=== PATIENT | female | born 1960 | race Caucasian/White ===

== ENCOUNTER → 2016-11-30 | Outpatient (CLI) | payer BC, MEDICARE, OTHER ==
--- NOTE | 2016-11-30 15:13 | CT ---
EXAMINATION TYPE: CT chest wo con DATE OF EXAM: 11/30/2016 COMPARISON: Prior CT chest 01/26/2016 HISTORY: Solitary pulmonary nodule CT DLP: 700 mGycm. Automated Exposure Control for Dose Reduction was Utilized. TECHNIQUE: CT scan of the thorax is performed without IV contrast. FINDINGS: LUNGS: Nodularity subcentimeter in size present in the right upper lobe is stable. There are extensiv e emphysematous changes within the lungs. Area of scarring present in the right upper lobe anteriorly shows a similar appearance. MEDIASTINUM: Lack of IV contrast is noted to limit evaluation for mediastinal and especially hilar ad enopathy. There are no definitive greater than 1 cm hilar or mediastinal lymph nodes. No cardiomega ly or pericardial effusion is seen. OTHER: Ascending aorta measures approximately 4.8 cm on this noncontrast exam, there may be slight in terval growth compared to prior exam. Pleural-based lipoma the right upper lobe is stable. IMPRESSION: Ascending aortic aneurysm. Stable pulmonary nodules. Emphysema.
--- NOTE | 2016-12-01 10:15 | MM ---
Reason for exam: screening (asymptomatic). Last mammogram was performed 1 year and 3 months ago. History: Patient is postmenopausal. Reductions of both breasts, 1976. Physical Findings: A clinical breast exam by your physician is recommended on an annual basis and results should be correlated with mammographic findings. MG 3D Screening Mammo W/Cad Bilateral CC and MLO view(s) were taken. Prior study comparison: September 10, 2015, bilateral MG screening mammo w CAD. August 07, 2012, [facility] DIGITAL BILATERAL MAMMOGRAM w/CAD. The breast tissue is almost entirely fat. No significant changes when compared with prior studies. ASSESSMENT: Negative, BI-RAD 1 RECOMMENDATION: Routine screening mammogram of both breasts in 1 year.
== END | disposition home or self-care (01) ==
LOC: RADMAMWWP 13:52
PROVIDERS: ATTEND Family Medicine
DX: Z12.31 Encounter for screening mammogram for malignant neoplasm of breast (principal); I71.2 Thoracic aortic aneurysm, without rupture; J43.9 Emphysema, unspecified; R91.8 Other nonspecific abnormal finding of lung field
CPT/HCPCS: 77063; 71250; G0202

== ENCOUNTER → 2018-02-07 | Outpatient (CLI) | payer BC, MEDICARE, OTHER ==
--- NOTE | 2018-02-07 13:56 | CT ---
EXAMINATION TYPE: CT chest wo con DATE OF EXAM: 02/07/2018 COMPARISON: 11/30/2016 HISTORY: 57-year-old female Thoracic Aortic Aneurysm without rupture TECHNIQUE: Contiguous axial scanning of the chest without IV contrast. Coronal and sagittal reconstru ctions performed. CT DLP: 542 mGycm Automated exposure control for dose reduction was used. FINDINGS: Heart normal size without pericardial effusion. Mild aortic valvular calcifications are present. Redemonstrated aneurysm of the ascending aorta measuring up to 4.6 cm as measured on both axial and s agittal series. This is unchanged from 11/30/2016. Bovine configuration to the aortic arch. Allowing for noncontrast technique, no thoracic lymphadenopathy is seen. Prominent but nonenlarged 8 mm precarinal lymph node is present. Mild diffuse bronchial wall thickening with some strandy areas of atelectasis and scarring particular ly in the anterior right midlung. Scattered pulmonary nodules measuring up to 6 mm on the right and o ne measuring 4 mm on the left are unchanged. There is moderate centrilobular emphysema and a 3.5 x 1. 1 cm subpleural lipoma along the anterolateral right upper hemithorax, unchanged. No consolidation or pleural effusion. Visualized upper abdomen shows no gross abnormality allowing for noncontrast technique. Mild endplate spondylosis midthoracic spine. No osseous destructive process. IMPRESSION: STABLE 4.6 CM ASCENDING AORTIC ANEURYSM. THERE IS COPD WITH MODERATE EMPHYSEMA AND STABLE PULMONARY N ODULES.
== END | disposition home or self-care (01) ==
LOC: RADCTMAIN 08:20
PROVIDERS: ATTEND Family Medicine
DX: I71.2 Thoracic aortic aneurysm, without rupture (principal); J43.9 Emphysema, unspecified; R91.8 Other nonspecific abnormal finding of lung field
CPT/HCPCS: 71250

== ENCOUNTER → 2019-01-24 | Outpatient (CLI) | payer BC, MEDICARE, OTHER ==
--- NOTE | 2019-01-24 09:06 | CT ---
EXAMINATION TYPE: CT chest wo con DATE OF EXAM: 01/24/2019 COMPARISON: 02/07/2018 HISTORY: 57-year-old female follow-up Pulmonary nodule TECHNIQUE: Contiguous axial scanning of the chest without IV contrast. Coronal and sagittal reconstru ctions performed. CT DLP: 589 mGycm Automated exposure control for dose reduction was used. FINDINGS: Heart normal size without pericardial effusion. Aortic valvular calcifications. Mild aneurysm ascending aorta at 4.2 cm. This was previously measured up to 4.5 cm on 11/30/2016. Bovine configuration to the aortic arch. 7 mm precarinal lymph node is unchanged. No thoracic lymphadenopathy by CT size criteria. Moderate centrilobular emphysema. Suspected subpleural lipoma along the anterolateral right upper chest measuring 3.5 x 1.2 cm, unchang ed from 11/30/2016. 5 mm peripheral right basilar pulmonary nodule, stable. 4 mm right middle lobe pulmonary nodule, axial image 35, stable. Some additional 4 mm and smaller nodularity along the minor fissure on axial image 28, unchanged. There is additional scattered 4 mm and smaller pulmonary nodules bilaterally are unchanged. Tiny calcified granuloma in the right. Trace left apical pleural parenchymal scarring and some of the additional stable or perhaps scarring along the superior aspect of the left major fissure. No consolidation or pleural effusion. Visualized upper abdomen shows no gross abnormality. Bones: No osseous destructive process. IMPRESSION: 1. SCATTERED BILATERAL PULMONARY NODULES MEASURING UP TO 5 MM ARE STABLE BACK TO AT LEAST 11/30/2016. G REATER THAN 2 YEARS OF STABILITY SUGGESTS A BENIGN ETIOLOGY. 2. COPD WITH MODERATE EMPHYSEMA. 3. MILD ANEURYSM ASCENDING AORTA CURRENTLY MEASURED AT 4.2 CM.
== END | disposition home or self-care (01) ==
LOC: RADCTMAIN 07:45
PROVIDERS: ATTEND Family Medicine
DX: J43.9 Emphysema, unspecified (principal); I71.2 Thoracic aortic aneurysm, without rupture; R91.8 Other nonspecific abnormal finding of lung field
CPT/HCPCS: 71250

== ENCOUNTER 2021-08-03 17:37 | Emergency (ER) | payer MEDICARE, OTHER ==
[2021-08-03 17:57] VITALS: BP 186/104; PULSE 84; RESP 18; TEMP 97.4
--- NOTE | 2021-08-03 18:58 | ED ---
Back Pain HPI - General Chief Complaint: Back Pain/Injury Stated Complaint: Back pain Time Seen by Provider: 08/03/21 18:18 Source: patient - History of Present Illness Initial Comments: Patient is a 61-year-old female who presents to the emergency department with a chief complaint of lower back pain. Patient states the pain started 2 days ago on the right side. She denies recent injury or trauma. The pain is constant over the right lower back with intermittent shooting down the right thigh. Patient states twisting her back worsens the pain. She states she has taken Tylenol and Motrin with no relief. Patient does have a history of back issues however she states it was always left sided. Patient denies history of cancer, recent weight loss, numbness/tingling in the groin, and loss of bladder/bowel function. Patient has no other concerns at this time including fever, chills, headache, worsening shortness of breath, cough, chest pain, abdominal pain, nausea, vomiting, diarrhea, and burning with urination. - Related Data Previous Rx's Medication Instructions Recorded Cyclobenzaprine [Flexeril] 5 mg PO TID PRN #21 tablet 08/03/21 Allergies Allergy/AdvReac Type Severity Reaction Status Date / Time No Known Allergies Allergy Verified 08/03/21 17:57 Review of Systems ROS Statement: Those systems with pertinent positive or pertinent negative responses have been documented in the HPI. ROS Other: All systems not noted in ROS Statement are negative. Past Medical History Past Medical History: Coronary Artery Disease (CAD), Chest Pain / Angina, COPD Additional Past Medical History / Comment(s): O2 3l nc all the time. aortic valve stenosis? History of Any Multi-Drug Resistant Organisms: None Reported Past Surgical History: Breast Surgery, Tubal Ligation Past Psychological History: No Psychological Hx Reported Smoking Status: Former smoker Past Alcohol Use History: None Reported Past Drug Use History: None Reported General Exam General appearance: alert, in no apparent distress Head exam: Present: atraumatic, normocephalic, normal inspection Eye exam: Present: normal appearance, PERRL, EOMI. Absent: scleral icterus, conjunctival injection, periorbital swelling Respiratory exam: Present: wheezes (Patient has known COPD and wears 3 L of oxygen nasal cannula at home) Cardiovascular Exam: Present: regular rate, normal rhythm, normal heart sounds. Absent: systolic murmur, diastolic murmur, rubs, gallop, clicks GI/Abdominal exam: Present: soft, normal bowel sounds. Absent: distended, tenderness, guarding, rebound, rigid Extremities exam: Present: normal inspection, full ROM, normal capillary refill. Absent: tenderness, pedal edema Back exam: Present: normal inspection, full ROM, tenderness (Right lumbar and sacral region), paraspinal tenderness. Absent: CVA tenderness (R), CVA tenderness (L), muscle spasm, vertebral tenderness Neurological exam: Present: alert, oriented X3, CN II-XII intact Psychiatric exam: Present: normal affect, normal mood Skin exam: Present: warm, dry, intact, normal color. Absent: rash Course Vital Signs 08/03/21 17:51 Temperature 97.4 F L Pulse Rate 84 Respiratory 18 Rate Blood Pressure 186/104 O2 Sat by Pulse 97 Oximetry Medical Decision Making - Medical Decision Making This is a 61 year-old female who presents with right-sided lower back pain 2 days. Thorough history and examination were performed. Patient denies recent injury or trauma. No saddle anesthesia or loss of bladder/bowel control. Patient has sciatica symptoms. The paravertebral muscles of the lumbar and sacral spine are tender to palpation. CT of the lumbar and sacral spine was obtained which showed L5 spondylolysis with first-degree L5-S1 spondylolisthesis, which was no significant change compared to previous CT. Patient given Toradol and Norflex. She will be discharged with Flexeril prescription and referral to diabetes solutions specialist. Return parameters discussed. Patient verbalized understanding and is agreeable to plan. Dr. Gore is my attending. Disposition Clinical Impression: Back pain Disposition: HOME SELF-CARE Condition: Good Instructions (If sedation given, give patient instructions): Acute Low Back Pain (ED) Additional Instructions: Please take medication as directed. Do not drive or operate machinery while taking Flexeril. You may take an anti-inflammatory such as Motrin for pain. Follow-up with diabetes solutions specialist for further evaluation and management of symptoms. Return to the emergency department if you experience new, concerning, or worsening symptoms. Prescriptions: Cyclobenzaprine [Flexeril] 5 mg PO TID PRN #21 tablet PRN Reason: Pain Is patient prescribed a controlled substance at d/c from ED?: No Referrals: Jeremy Ennis DO [Primary Care Provider] - 1-2 days Mateo Altamirano MD [STAFF PHYSICIAN] - 1-2 days Time of Disposition: 19:55
[2021-08-03] MEDS ORDERED: ORPHENADRINE 30 MG/ML 2 ML VIAL IM STA (19:03)
[2021-08-03] MEDS ORDERED: KETOROLAC 15 MG/ML 1 ML VIAL IM STA (19:04)
--- NOTE | 2021-08-03 19:42 | CT ---
EXAMINATION TYPE: CT lumbar spine wo con DATE OF EXAM: 08/03/2021 COMPARISON: 06/05/2014 HISTORY: Low back pain. CT DLP: 1291.8 mGycm Automated exposure control for dose reduction was used. Images obtained from the level of T12-S1 vertebra without contrast. There is L5 spondylolysis. There is a 1 cm anterior subluxation of L5 in relation S1. There is no com pression fracture. There is moderate narrowing of disc spaces at L5-S1 and to lesser extent L4-5. The re is very slight levoscoliosis. There is no lumbar paraspinal mass. There is developmentally large s elsy canal. No spinal stenosis. Sacroiliac joints appear intact. IMPRESSION: L5 spondylolysis with first-degree L5-S1 spondylolisthesis. No significant change compared to the old exam. No acute bony abnormality.
--- NOTE | 2021-08-03 19:46 | CT ---
EXAMINATION TYPE: CT sacrum wo con DATE OF EXAM: 08/03/2021 COMPARISON: None HISTORY: Low back pain. CT DLP: 1291.8 mGycm Automated exposure control for dose reduction was used. Images obtained from the level of lumbosacral junction to the tip of the coccyx with no contrast. There is L5 spondylolysis with first-degree L5-S1 spondylolisthesis. There is severe narrowing of L5- S1 disc space. The sacral segments have normal alignment. No fracture seen. No displacement. Presacra l soft tissues appear normal. No fluid. There are multiple sigmoid diverticula. IMPRESSION: No acute bony abnormality. L5-S1 spondylolisthesis with L5 spondylolysis that is stable compared to . No fracture.
== END 2021-08-03 20:18 | disposition home or self-care (01) ==
LOC: EC 17:37
DX: M54.50 Low back pain, unspecified (principal); J44.9 Chronic obstructive pulmonary disease, unspecified; I25.10 Atherosclerotic heart disease of native coronary artery without angina pectoris; Z87.891 Personal history of nicotine dependence
CPT/HCPCS: 72131; 72192; 99283; 96372 ×2; J2360; J1885

== ENCOUNTER → 2022-02-14 | Outpatient (CLI) | payer MEDICARE, OTHER ==
--- NOTE | 2022-02-14 12:23 | XR ---
EXAMINATION TYPE: XR chest 2V DATE OF EXAM: 02/14/2022 11:08 AM COMPARISON: Chest radiographs from 05/11/2012 TECHNIQUE: XR chest 2V Frontal and lateral views of the chest. CLINICAL INDICATION:Female, 61 years old with history of J441; FINDINGS: Lungs/Pleura: There is poor penetration with increased haziness to the lung bases. There is no eviden ce of pleural effusion, focal consolidation, or pneumothorax. Pulmonary vascularity: Unremarkable. Heart/mediastinum: Cardiomediastinal silhouette is unremarkable. Musculoskeletal: No acute osseous pathology. IMPRESSION: No acute cardiopulmonary disease/process.
== END | disposition home or self-care (01) ==
LOC: RADXRMAIN 10:53
PROVIDERS: ATTEND Family Medicine
DX: J44.1 Chronic obstructive pulmonary disease with (acute) exacerbation (principal)
CPT/HCPCS: 71046

== ENCOUNTER 2022-04-09 09:05 | Inpatient (IN) | payer MEDICARE, OTHER ==
[2022-04-09] MEDS ORDERED: IPRATROPIUM 0.5 MG/2.5 ML NEBU INHALATION STA (09:11)
[2022-04-09] MEDS ORDERED: methylPREDNISolone SOD SUCCI 125 MG/2 ML VIAL IV STA (09:11)
[2022-04-09] MEDS ORDERED: ALBUTEROL NEBULIZED 2.5 MG/3 ML INHALATION STA (09:11)
[2022-04-09 09:20] LABS: Basophils # (A) 0.1 k/uL (0-0.2); Basophils % (A) 1 %; Eosinophils # (A) 0.1 k/uL (0-0.7); Eosinophils % (A) 1 %; HCT 42.1 % (34.0-46.0); HGB 14.3 gm/dL (11.4-16.0); Lymphocytes # (A) 0.6 k/uL (1.0-4.8); Lymphocytes % (A) 4 %; MCH 30.7 pg (25.0-35.0); MCHC 34.1 g/dL (31.0-37.0); Mean Platelet Volume 8.5; Monocytes # (A) 0.7 k/uL (0-1.0); Monocytes % (A) 5 %; Neutrophils # (A) 11.3 k/uL (1.3-7.7); Neutrophils % (A) 87 %; Platelet Count 155 k/uL (150-450); RBC 4.68 m/uL (3.80-5.40); RDW 13.6 % (11.5-15.5); WBC 13.1 k/uL (3.8-10.6)
--- NOTE | 2022-04-09 09:25 | ED ---
General Adult HPI - General Chief complaint: Shortness of Breath Stated complaint: GRAYSON Time Seen by Provider: 04/09/22 09:05 Source: patient, EMS, RN notes reviewed, old records reviewed Mode of arrival: EMS Limitations: no limitations - History of Present Illness Initial comments: This is a 61-year-old female presents emergency Department with a past medical history significant for COPD. According to the patient her difficulty breathing is been ongoing all week and getting progressively worse. Patient states she has been coughing but unable to cough up sputum. Patient denies any chest pain or palpitations. Patient denies any back pain. Patient denies any recent fever. Patient denies any abdominal pain patient denies any nausea or vomiting. Patient states she just got so short of breath this morning she had called EMS. According to EMS when they arrived she was barely moving any air to give her breathing treatment put her on oxygen by the time they arrived she was doing considerably better. In route they did an EKG that was somewhat suspicious for ST segment elevation in the inferior leads so they called her democrat one on the way in. Patient had a repeat EKG by EMS and they stated that the second EKG did not look anywhere near suspicious is the first. - Related Data Previous Rx's Medication Instructions Recorded Cyclobenzaprine [Flexeril] 5 mg PO TID PRN #21 tablet 08/03/21 Allergies Allergy/AdvReac Type Severity Reaction Status Date / Time No Known Allergies Allergy Verified 04/09/22 09:12 Review of Systems ROS Statement: Those systems with pertinent positive or pertinent negative responses have been documented in the HPI. ROS Other: All systems not noted in ROS Statement are negative. Past Medical History Past Medical History: Coronary Artery Disease (CAD), Chest Pain / Angina, COPD Additional Past Medical History / Comment(s): O2 3l nc all the time. aortic valve stenosis? History of Any Multi-Drug Resistant Organisms: None Reported Past Surgical History: Breast Surgery, Tubal Ligation Past Psychological History: No Psychological Hx Reported Smoking Status: Former smoker Past Alcohol Use History: None Reported Past Drug Use History: None Reported General Exam - General Exam Comments Initial Comments: GENERAL: Patient is well-developed and well-nourished. Patient is nontoxic and well- hydrated and is in moderate distress. ENT: Neck is soft and supple. No significant lymphadenopathy is noted. Oropharynx is clear. Moist mucous membranes. Neck has full range of motion without eliciting any pain. EYES: The sclera were anicteric and conjunctiva were pink and moist. Extraocular movements were intact and pupils were equal round and reactive to light. Eyelid s were unremarkable. PULMONARY: Patient is not moving much air and has diffuse expiratory wheezing CARDIOVASCULAR: There is a regular rate and rhythm without any murmurs gallops or rubs. ABDOMEN: Soft and nontender with normal bowel sounds. SKIN: Skin is clear with no lesions or rashes and otherwise unremarkable. NEUROLOGIC: Patient is alert and oriented x3. Cranial nerves II through XII are grossly intact. Motor and sensory are also intact. Normal speech, volume and content. Symmetrical smile. MUSCULOSKELETAL: Normal extremities with adequate strength and full range of motion. LYMPHATICS: No significant lymphadenopathy is noted PSYCHIATRIC: Normal psychiatric evaluation. Limitations: no limitations Course Vital Signs 04/09/22 04/09/22 04/09/22 09:06 09:12 09:29 Temperature 98.1 F Pulse Rate 120 H 97 Respiratory 26 H 26 H Rate Blood Pressure 129/98 O2 Sat by Pulse 123 H 97 Oximetry 04/09/22 04/09/22 04/09/22 09:44 10:00 10:30 Temperature Pulse Rate 99 118 H 114 H Respiratory 22 22 Rate Blood Pressure 127/92 131/68 O2 Sat by Pulse 90 L 91 L Oximetry 04/09/22 11:00 Temperature Pulse Rate 110 H Respiratory 20 Rate Blood Pressure 131/68 O2 Sat by Pulse 91 L Oximetry Medical Decision Making - Medical Decision Making Patient was not having any chest pain over EKG was somewhat concerning started speak with Dr. Jansen about the EKG. EKG was interpreted by me. EKG shows sinus tachycardia at 170 bpm LA interval is on a 56 QRS is 92 QT interval 320 QTC is 399. Patient's EKG shows some ST segment elevation in aVR and ST segment depression in leads 1 and 2 and 3 and aVF as well as leads V5 and V6. Patient did receive an albuterol Atrovent treatment on the way in. Patient's troponin came back elevated again called cardiology and spoke with him about elevated troponin. I started the patient heparin. I spoke with Dr. julian about the patient he agreed to admit the patient admitted the patient wrote admitting orders. I continued heparin has been Nitropaste on the floor. I also continued breathing treatments on the floor. - Lab Data Result diagrams: 04/09/22 09:14 04/09/22 09:13 Lab Results 04/09/22 04/09/22 04/09/22 Range/Units 09:13 09:13 09:13 WBC (3.8-10.6) k/uL RBC (3.80-5.40) m/uL Hgb (11.4-16.0) gm/dL Hct (34.0-46.0) % MCV (80.0-100.0) fL MCH (25.0-35.0) pg MCHC (31.0-37.0) g/dL RDW (11.5-15.5) % Plt Count (150-450) k/uL MPV Neutrophils % % Lymphocytes % % Monocytes % % Eosinophils % % Basophils % % Neutrophils # (1.3-7.7) k/uL Lymphocytes # (1.0-4.8) k/uL Monocytes # (0-1.0) k/uL Eosinophils # (0-0.7) k/uL Basophils # (0-0.2) k/uL PT (9.0-12.0) sec INR (<1.2) APTT (22.0-30.0) sec Sodium 131 L (137-145) mmol/L Potassium 3.8 (3.5-5.1) mmol/L Chloride 95 L (98-107) mmol/L Carbon Dioxide 28 (22-30) mmol/L Anion Gap 8 mmol/L BUN 15 (7-17) mg/dL Creatinine 0.53 (0.52-1.04) mg/dL Est GFR (CKD-EPI)AfAm >90 (>60 ml/min/1.73 sqM) Est GFR (CKD-EPI)NonAf >90 (>60 ml/min/1.73 sqM) Glucose 131 H (74-99) mg/dL Plasma Lactic Acid Ruslan 1.5 (0.7-2.0) mmol/L Calcium 8.7 (8.4-10.2) mg/dL Magnesium 1.8 (1.6-2.3) mg/dL Total Bilirubin 0.5 (0.2-1.3) mg/dL AST 46 H (14-36) U/L ALT 20 (4-34) U/L Alkaline Phosphatase 96 (38-126) U/L Troponin I 0.619 H* (0.000-0.034) ng/mL NT-Pro-B Natriuret Pep pg/mL Total Protein 7.2 (6.3-8.2) g/dL Albumin 4.0 (3.5-5.0) g/dL Influenza Type A (PCR) (Not Detectd) Influenza Type B (PCR) (Not Detectd) RSV (PCR) (Not Detectd) SARS-CoV-2 (PCR) (Not Detectd) 04/09/22 04/09/22 04/09/22 Range/Units 09:13 09:14 09:14 WBC 13.1 H (3.8-10.6) k/uL RBC 4.68 (3.80-5.40) m/uL Hgb 14.3 (11.4-16.0) gm/dL Hct 42.1 (34.0-46.0) % MCV 90.0 (80.0-100.0) fL MCH 30.7 (25.0-35.0) pg MCHC 34.1 (31.0-37.0) g/dL RDW 13.6 (11.5-15.5) % Plt Count 155 (150-450) k/uL MPV 8.5 Neutrophils % 87 % Lymphocytes % 4 % Monocytes % 5 % Eosinophils % 1 % Basophils % 1 % Neutrophils # 11.3 H (1.3-7.7) k/uL Lymphocytes # 0.6 L (1.0-4.8) k/uL Monocytes # 0.7 (0-1.0) k/uL Eosinophils # 0.1 (0-0.7) k/uL Basophils # 0.1 (0-0.2) k/uL PT 11.6 (9.0-12.0) sec INR 1.1 (<1.2) APTT 29.9 (22.0-30.0) sec Sodium (137-145) mmol/L Potassium (3.5-5.1) mmol/L Chloride (98-107) mmol/L Carbon Dioxide (22-30) mmol/L Anion Gap mmol/L BUN (7-17) mg/dL Creatinine (0.52-1.04) mg/dL Est GFR (CKD-EPI)AfAm (>60 ml/min/1.73 sqM) Est GFR (CKD-EPI)NonAf (>60 ml/min/1.73 sqM) Glucose (74-99) mg/dL Plasma Lactic Acid Ruslan (0.7-2.0) mmol/L Calcium (8.4-10.2) mg/dL Magnesium (1.6-2.3) mg/dL Total Bilirubin (0.2-1.3) mg/dL AST (14-36) U/L ALT (4-34) U/L Alkaline Phosphatase (38-126) U/L Troponin I (0.000-0.034) ng/mL NT-Pro-B Natriuret Pep 1510 pg/mL Total Protein (6.3-8.2) g/dL Albumin (3.5-5.0) g/dL Influenza Type A (PCR) (Not Detectd) Influenza Type B (PCR) (Not Detectd) RSV (PCR) (Not Detectd) SARS-CoV-2 (PCR) (Not Detectd) 04/09/22 Range/Units 09:50 WBC (3.8-10.6) k/uL RBC (3.80-5.40) m/uL Hgb (11.4-16.0) gm/dL Hct (34.0-46.0) % MCV (80.0-100.0) fL MCH (25.0-35.0) pg MCHC (31.0-37.0) g/dL RDW (11.5-15.5) % Plt Count (150-450) k/uL MPV Neutrophils % % Lymphocytes % % Monocytes % % Eosinophils % % Basophils % % Neutrophils # (1.3-7.7) k/uL Lymphocytes # (1.0-4.8) k/uL Monocytes # (0-1.0) k/uL Eosinophils # (0-0.7) k/uL Basophils # (0-0.2) k/uL PT (9.0-12.0) sec INR (<1.2) APTT (22.0-30.0) sec Sodium (137-145) mmol/L Potassium (3.5-5.1) mmol/L Chloride (98-107) mmol/L Carbon Dioxide (22-30) mmol/L Anion Gap mmol/L BUN (7-17) mg/dL Creatinine (0.52-1.04) mg/dL Est GFR (CKD-EPI)AfAm (>60 ml/min/1.73 sqM) Est GFR (CKD-EPI)NonAf (>60 ml/min/1.73 sqM) Glucose (74-99) mg/dL Plasma Lactic Acid Ruslan (0.7-2.0) mmol/L Calcium (8.4-10.2) mg/dL Magnesium (1.6-2.3) mg/dL Total Bilirubin (0.2-1.3) mg/dL AST (14-36) U/L ALT (4-34) U/L Alkaline Phosphatase (38-126) U/L Troponin I (0.000-0.034) ng/mL NT-Pro-B Natriuret Pep pg/mL Total Protein (6.3-8.2) g/dL Albumin (3.5-5.0) g/dL Influenza Type A (PCR) Detected A (Not Detectd) Influenza Type B (PCR) Not Detected (Not Detectd) RSV (PCR) Not Detected (Not Detectd) SARS-CoV-2 (PCR) Not Detected (Not Detectd) Critical Care Time Critical Care Time: Yes Total Critical Care Time: 35 Disposition Clinical Impression: Non-STEMI (non-ST elevated myocardial infarction), COPD with acute exacerbation Disposition: ADMITTED IP TO THIS HOSP Referrals: Jeremy Ennis DO [Primary Care Provider] - 1-2 days Time of Disposition: 12:29
[2022-04-09 09:28] LABS: INR 1.1 (<1.2); Partial Thromboplastin Time 29.9 sec (22.0-30.0); Prothrombin Time 11.6 sec (9.0-12.0)
[2022-04-09 09:33] LABS: ALT 20 U/L (4-34); AST 46 U/L (14-36); African American GFR (CKD) >90 (>60 ml/min/1.73 sqM); Alkaline Phosphatase 96 U/L (38-126); Anion Gap 8 mmol/L; Blood Urea Nitrogen 15 mg/dL (7-17); Calcium 8.7 mg/dL (8.4-10.2); Carbon Dioxide 28 mmol/L (22-30); Chloride 95 mmol/L (98-107); Glucose 131 mg/dL (74-99); Magnesium 1.8 mg/dL (1.6-2.3); Non-African American GFR(CKD) >90 (>60 ml/min/1.73 sqM); Potassium 3.8 mmol/L (3.5-5.1); Sodium 131 mmol/L (137-145); Total Bilirubin 0.5 mg/dL (0.2-1.3); Total Protein 7.2 g/dL (6.3-8.2)
--- NOTE | 2022-04-09 09:58 | XR ---
EXAMINATION TYPE: XR chest 2V DATE OF EXAM: 04/09/2022 9:27 AM COMPARISON: Chest radiographs from 02/14/2022 TECHNIQUE: XR chest 2V Frontal and lateral views of the chest. CLINICAL INDICATION:Female, 61 years old with history of difficulty breathing; FINDINGS: Lungs/Pleura: There is flattening of the diaphragm with increased lucency of the lungs. No evidence o f pneumothorax, pleural effusion or focal consolidation. Pulmonary vascularity: Unremarkable. Heart/mediastinum: Cardiomediastinal silhouette is unremarkable. Musculoskeletal: No acute osseous pathology. IMPRESSION: 1. No acute cardiopulmonary disease process. 2. COPD changes.
[2022-04-09] MEDS ORDERED: HEPARIN SODIUM 1,000 UN/ML (10ML VL) IV ONE (10:01)
[2022-04-09] MEDS: HEPARIN SOD,PORK IN 0.45% NACL 25,000 UNIT in 0.45% NACL 1 250ML.BAG IV SCH (10:12)
--- NOTE | 2022-04-09 11:27 | P.CRDCN ---
History of Present Illness Consult date: 04/09/22 History of present illness: History of Present Illness: The patient is a 61-year-old female with a known history of chronic tobacco use stopped a few years ago, history of COPD, followed by Dr. Becker and was told that she has a valvular issue that presented to the hospital with acute dyspnea associated with wheezing and cough. Cardiology consultation was requested for mild troponin elevation. The patient denies any prior history of myocardial infarction or CHF. She is on home oxygen. She had recent cough and wheezing going on for the last week. She denies any fever. She has no peripheral edema, no PND or orthopnea. She denies any chest discomfort, dizziness or palpitations. She is feeling better after receiving respiratory treatment. She is in sinus tachycardia. She has not seen Dr. Becker for over a year. She has been seen in the past by Dr. Morgan. Her troponin was 0.619. She is influenza A positive. Medications: Not available Review of Systems: Respiratory: She has a history of severe COPD with recent wheezing, cough GI: No nausea or vomiting . No history of peptic ulcer disease. No recent GI bleed. : No hematuria or dysuria. Nervous System: No stroke or seizure. Physical Examination: 61-year-old female, alert and oriented in [id number] dyspnea,Blood pressure 130/60, Heart rate 110 Head: Normocephalic. Eyes: Sclerae nonicteric. Neck: Good carotid upstroke, no bruit, no jugular venous distention. Lungs: Severe decrease in the air exchange with bilateral wheezes Heart: Regular rate and rhythm, S1-S2, no S3, no rub. Systolic ejection murmur. Abdomen: Soft nontender, positive bowel sounds no organomegaly. Extremities: No edema, intact distal pulses. Labs: White blood cell 13.1, hemoglobin 14.3, potassium 3.8, BUN 15, creatinine 0.53. Troponin 0.619, NT proBNP 1510. Chest x-ray with evidence of COPD EKG: Sinus tachycardia with left axis deviation, poor R-wave progression and nonspecific ST segment changes Impression: 1. Acute dyspnea with influenza A+ and exacerbation of COPD 2. Mild troponin elevation representing type II myocardial infarction 3. History of severe COPD 4. History of valvular disease, detail unclear Plan: 1. Obtain serial enzymes 2. Pulmonary consultation 3. Obtain an echocardiogram with Doppler 4. Follow EKGs and add aspirin 5. Depending on her progress further recommendations will be made, thank you for this consult we will follow with you. Past Medical History Past Medical History: Coronary Artery Disease (CAD), Chest Pain / Angina, COPD Additional Past Medical History / Comment(s): O2 3l nc all the time. aortic valve stenosis? History of Any Multi-Drug Resistant Organisms: None Reported Past Surgical History: Breast Surgery, Tubal Ligation Past Psychological History: No Psychological Hx Reported Smoking Status: Former smoker Past Alcohol Use History: None Reported Past Drug Use History: None Reported Medications and Allergies Home Medications Medication Instructions Recorded Confirmed Type Cyclobenzaprine [Flexeril] 5 mg PO TID PRN #21 tablet 08/03/21 Rx Allergies Allergy/AdvReac Type Severity Reaction Status Date / Time No Known Allergies Allergy Verified 04/09/22 09:12 Physical Exam Vitals: Vital Signs Temp Pulse Resp BP Pulse Ox 04/09/22 11:00 110 H 20 131/68 91 L 04/09/22 10:30 114 H 22 131/68 91 L 04/09/22 10:00 118 H 22 127/92 90 L 04/09/22 09:44 99 04/09/22 09:29 97 04/09/22 09:12 26 H 97 04/09/22 09:06 98.1 F 120 H 26 H 129/98 123 H Intake and Output 04/08/22 04/09/22 04/09/22 22:59 06:59 14:59 Other: Weight 77.111 kg Results 04/09/22 09:14 04/09/22 09:13 Cardiac Enzymes 04/09/22 04/09/22 Range/Units 09:13 09:13 AST 46 H (14-36) U/L Troponin I 0.619 H* (0.000-0.034) ng/mL Coagulation 04/09/22 Range/Units 09:14 PT 11.6 (9.0-12.0) sec APTT 29.9 (22.0-30.0) sec CBC 04/09/22 Range/Units 09:14 WBC 13.1 H (3.8-10.6) k/uL RBC 4.68 (3.80-5.40) m/uL Hgb 14.3 (11.4-16.0) gm/dL Hct 42.1 (34.0-46.0) % Plt Count 155 (150-450) k/uL Comprehensive Metabolic Panel 04/09/22 Range/Units 09:13 Sodium 131 L (137-145) mmol/L Potassium 3.8 (3.5-5.1) mmol/L Chloride 95 L (98-107) mmol/L Carbon Dioxide 28 (22-30) mmol/L BUN 15 (7-17) mg/dL Creatinine 0.53 (0.52-1.04) mg/dL Glucose 131 H (74-99) mg/dL Calcium 8.7 (8.4-10.2) mg/dL AST 46 H (14-36) U/L ALT 20 (4-34) U/L Alkaline Phosphatase 96 (38-126) U/L Total Protein 7.2 (6.3-8.2) g/dL Albumin 4.0 (3.5-5.0) g/dL Current Medications Generic Name Dose Route Start Last Admin Trade Name Freq PRN Reason Stop Dose Admin Heparin Sodium/Sodium Chloride 250 mls @ 9.253 mls/hr 04/09/22 10:15 04/09/22 10:12 25,000 unit/ Sodium Chloride IV 12 units/kg/hr .Q24H CHANTEL 9.253 mls/hr Administration Protocol 12 UNITS/KG/HR Intake and Output 04/08/22 04/09/22 04/09/22 22:59 06:59 14:59 Other: Weight 77.111 kg Patient Weight 04/10/22 06:59 Weight 77.111 kg 04/09/22 09:14 04/09/22 09:13
[2022-04-09] MEDS ORDERED: ASPIRIN 81 MG PO SCH (11:30)
[2022-04-09] MEDS: METOPROLOL TARTRATE 25 MG TAB PO SCH ×2 (11:55→20:42)
[2022-04-09] MEDS ORDERED: NITROGLYCERIN SL TABS 0.4 MG TAB SUBLINGUAL PRN (12:32)
--- NOTE | 2022-04-09 13:41 | P.HPIM ---
History of Present Illness 61-year-old female came in with compensative shortness of breath wheezing and cough patient is unable to bring up anything. Patient is found to have influenza. Denied any orthopnea paroxysmal nocturnal dyspnea patient denied any history of coronary artery disease or congestive heart failure in the past. Patient is tachycardic patient the serum sodium was low. today is oxygen dependent and uses 3 L of oxygen at home presently on Ventimask. Patient has minimally elevated troponin of 0.6 on 9 secondary to hypoxemia. He does have leukocytosis but no fever does complain of body aches REVIEW OF SYSTEMS: CONSTITUTIONAL: As mentioned in HPI HEENT: No recent visual problems or hearing problems. Denied any sore throat. CARDIOVASCULAR: No chest pain, orthopnea, PND, no palpitations, no syncope. PULMONARY: no hemoptysis. GASTROINTESTINAL: No diarrhea, no nausea, no vomiting, no abdominal pain. NEUROLOGICAL: No headaches, no weakness, no numbness. HEMATOLOGICAL: Denies any bleeding or petechiae. GENITOURINARY: Denies any burning micturition, frequency, or urgency. MUSCULOSKELETAL/RHEUMATOLOGICAL: Denies any joint pain, swelling, or any muscle pain. ENDOCRINE: Denies any polyuria or polydipsia. The rest of the 14-point review of systems is negative. PHYSICAL EXAMINATION: GENERAL: The patient is alert and oriented x3, not in any acute distress. Well developed, well nourished. HEENT: Pupils are round and equally reacting to light. EOMI. No scleral icterus. No conjunctival pallor. Normocephalic, atraumatic. No pharyngeal erythema. No thyromegaly. CARDIOVASCULAR: S1 and S2 present. No murmurs, rubs, or gallops. PULMONARY: Please air entry with mild expiratory wheezing on exam ABDOMEN: Soft, nontender, nondistended, normoactive bowel sounds. No palpable organomegaly. MUSCULOSKELETAL: No joint swelling or deformity. EXTREMITIES: No cyanosis, clubbing, or pedal edema. NEUROLOGICAL: Gross neurological examination did not reveal any focal deficits. SKIN: No rashes. Assessment and plan Acute on chronic hypoxic respiratory failure secondary to influenza and mild COPD exacerbation patient is on systemic steroids will cut it down to 40 IV twice a day patient was started on Tamiflu IV fluids -Hypervolemic hyponatremia secondary to infection patient was started on IV fluids -Troponin elevation secondary to hypoxemia -COPD oxygen dependent chronic hypercapnic respiratory failure Leukocytosis secondary to influenza DVT prophylaxis: Lovenox Past Medical History Past Medical History: Coronary Artery Disease (CAD), Chest Pain / Angina, COPD Additional Past Medical History / Comment(s): O2 3l nc all the time. aortic valve stenosis? History of Any Multi-Drug Resistant Organisms: None Reported Past Surgical History: Breast Surgery, Tubal Ligation Past Psychological History: No Psychological Hx Reported Smoking Status: Former smoker Past Alcohol Use History: None Reported Past Drug Use History: None Reported Medications and Allergies Home Medications Medication Instructions Recorded Confirmed Type Albuterol Inhaler [Ventolin Hfa 2 puff INHALATION RT-Q4H PRN 04/09/22 04/09/22 History Inhaler] Atorvastatin [Lipitor] 40 mg PO HS 04/09/22 04/09/22 History Fluticasone/Vilanterol [Breo 1 puff INHALATION RT-DAILY 04/09/22 04/09/22 History Ellipta 200-25 Mcg Inhaler] Meloxicam [Mobic] 7.5 mg PO BID 04/09/22 04/09/22 History Metoprolol Tartrate [Lopressor] 25 mg PO DAILY 04/09/22 04/09/22 History Tiotropium Powers [Spiriva] 18 mcg INHALATION RT-DAILY 04/09/22 04/09/22 History hydrOXYzine HCL [Atarax] 25 mg PO BID 04/09/22 04/09/22 History lisinopriL [Zestril] 20 mg PO DAILY 04/09/22 04/09/22 History Allergies Allergy/AdvReac Type Severity Reaction Status Date / Time No Known Allergies Allergy Verified 04/09/22 12:56 Physical Exam Vitals: Vital Signs Temp Pulse Resp BP Pulse Ox 04/09/22 13:00 90 20 134/64 93 L 04/09/22 12:00 105 H 20 121/82 93 L 04/09/22 11:00 110 H 20 131/68 91 L 04/09/22 10:30 114 H 22 131/68 91 L 04/09/22 10:00 118 H 22 127/92 90 L 04/09/22 09:44 99 04/09/22 09:29 97 04/09/22 09:12 26 H 97 04/09/22 09:06 98.1 F 120 H 26 H 129/98 123 H Intake and Output 04/08/22 04/09/22 04/09/22 22:59 06:59 14:59 Other: Weight 77.111 kg Results CBC & Chem 7: 04/09/22 09:14 04/09/22 09:13 Labs: Abnormal Lab Results - Last 24 Hours (Table) 04/09/22 04/09/22 04/09/22 Range/Units 09:13 09:13 09:14 WBC 13.1 H (3.8-10.6) k/uL Neutrophils # 11.3 H (1.3-7.7) k/uL Lymphocytes # 0.6 L (1.0-4.8) k/uL Sodium 131 L (137-145) mmol/L Chloride 95 L (98-107) mmol/L Glucose 131 H (74-99) mg/dL AST 46 H (14-36) U/L Troponin I 0.619 H* (0.000-0.034) ng/mL Influenza Type A (PCR) (Not Detectd) 04/09/22 Range/Units 09:50 WBC (3.8-10.6) k/uL Neutrophils # (1.3-7.7) k/uL Lymphocytes # (1.0-4.8) k/uL Sodium (137-145) mmol/L Chloride (98-107) mmol/L Glucose (74-99) mg/dL AST (14-36) U/L Troponin I (0.000-0.034) ng/mL Influenza Type A (PCR) Detected A (Not Detectd)
[2022-04-09] MEDS: IPRATROPIUM-ALBUTEROL 3 ML NEB INHALATION SCH ×2 (15:40→20:56)
[2022-04-09] MEDS: methylPREDNISolone SOD SUCCI 40 MG/ML 1 ML VIAL IV SCH ×2 (17:01→20:41)
--- NOTE | 2022-04-09 17:02 | P.CNPUL ---
History of Present Illness Consult date: 04/09/22 Reason for consult: dyspnea History of present illness: A 61-year-old female patient with advanced COPD, maintain on a combination of Breo and Spiriva on outpatient basis in addition to albuterol rescue inhaler. She is a chronic smoker. She has chronic exertional dyspnea. She comes into the hospital because of few days history of worsening shortness of breath, cough chest tightness and wheezing. Further investigation emergency department revealed that the patient tested positive for influenza A. The patient was also seen to be in significant amount of respiratory distress. Based on that, the patient was placed on a 40% Ventimask. Chest x-ray reveals no clear evidence of pneumonia. It is consistent with COPD. The patient is typically on 3 L O2 nasal cannula at home. The white cycles of 15 with a hemoglobin of 14.3 and a platelet count of 155. Cognition profile is within normal limits. Troponin peaked at 1.9. The rest of the electrolytes are normal. ProBNP level is at 1510. She is having hard time breathing at times she is having difficulties in completing full sentences. Her breathing is obviously labored for now. No signs of any CO2 narcosis at this point in time. Review of Systems Constitutional: Reports fatigue, Reports night sweats, Reports poor appetite, Reports weakness Eyes: denies as per HPI, denies blurred vision, denies bulging eye, denies decreased vision, denies diplopia, denies discharge, denies dry eye, denies irritation, denies itching, denies pain, denies photophobia, denies loss of peripheral vision, denies loss of vision, denies tunnel vision/blind spots Ears: deny: decreased hearing, ear discharge, earache, tinnitus Ears, nose, mouth and throat: Reports as per HPI Breasts: absent: as per HPI, change in shape, gynecomastia, masses, nipple di scharge, pain, skin changes, swelling Cardiovascular: Reports decreased exercise tolerance, Reports dyspnea on exertion Respiratory: Reports cough, Reports dyspnea, Reports home oxygen, Reports wheezing Gastrointestinal: Reports as per HPI Genitourinary: Reports as per HPI Menstruation: Reports as per HPI Musculoskeletal: Reports as per HPI Musculoskeletal: absent: ankle pain, ankle stiffness, ankle swelling, as per HPI, elbow pain, elbow stiffness, elbow swelling, foot pain, foot stiffness, foot swelling, hand pain, hand stiffness, hand swelling, hip pain, hip stiffness, hip swelling, knee pain, knee stiffness, knee swelling, shoulder pain, shoulder stiffness, shoulder swelling, wrist pain, wrist stiffness, wrist swelling Integumentary: Reports as per HPI Neurological: Reports as per HPI Psychiatric: Reports as per HPI Endocrine: Reports as per HPI Hematologic/Lymphatic: Reports as per HPI Allergic/Immunologic: Reports as per HPI Past Medical History Past Medical History: Coronary Artery Disease (CAD), Chest Pain / Angina, COPD Additional Past Medical History / Comment(s): O2 3l nc all the time. aortic valve stenosis? History of Any Multi-Drug Resistant Organisms: None Reported Past Surgical History: Breast Surgery, Tubal Ligation Past Psychological History: No Psychological Hx Reported Smoking Status: Former smoker Past Alcohol Use History: None Reported Past Drug Use History: None Reported Medications and Allergies Home Medications Medication Instructions Recorded Confirmed Type Albuterol Inhaler [Ventolin Hfa 2 puff INHALATION RT-Q4H PRN 04/09/22 04/09/22 History Inhaler] Atorvastatin [Lipitor] 40 mg PO HS 04/09/22 04/09/22 History Fluticasone/Vilanterol [Breo 1 puff INHALATION RT-DAILY 04/09/22 04/09/22 History Ellipta 200-25 Mcg Inhaler] Meloxicam [Mobic] 7.5 mg PO BID 04/09/22 04/09/22 History Metoprolol Tartrate [Lopressor] 25 mg PO DAILY 04/09/22 04/09/22 History Tiotropium Perry [Spiriva] 18 mcg INHALATION RT-DAILY 04/09/22 04/09/22 History hydrOXYzine HCL [Atarax] 25 mg PO BID 04/09/22 04/09/22 History lisinopriL [Zestril] 20 mg PO DAILY 04/09/22 04/09/22 History Allergies Allergy/AdvReac Type Severity Reaction Status Date / Time No Known Allergies Allergy Verified 04/09/22 12:56 Physical Exam Vitals: Vital Signs Temp Pulse Pulse Resp BP BP Pulse Ox 04/09/22 16:53 97.4 F L 73 24 105/67 90 L 04/09/22 15:55 70 04/09/22 15:46 04/09/22 15:41 70 04/09/22 15:00 68 20 97 04/09/22 14:30 86 22 96 04/09/22 14:01 75 20 96 04/09/22 13:30 85 23 90 L 04/09/22 13:00 90 20 134/64 93 L 04/09/22 12:00 105 H 20 121/82 93 L 04/09/22 11:00 110 H 20 131/68 91 L 04/09/22 10:30 114 H 22 131/68 91 L 04/09/22 10:00 118 H 22 127/92 90 L 04/09/22 09:44 99 04/09/22 09:29 97 04/09/22 09:12 26 H 97 04/09/22 09:06 98.1 F 120 H 26 H 129/98 123 H FiO2 04/09/22 16:53 40 04/09/22 15:55 04/09/22 15:46 50 04/09/22 15:41 04/09/22 15:00 04/09/22 14:30 04/09/22 14:01 04/09/22 13:30 04/09/22 13:00 04/09/22 12:00 04/09/22 11:00 04/09/22 10:30 04/09/22 10:00 04/09/22 09:44 04/09/22 09:29 04/09/22 09:12 04/09/22 09:06 Intake and Output 04/09/22 04/09/22 04/09/22 06:59 14:59 22:59 Intake Total 62.458 Balance 62.458 Intake: Intake, IV Titration 62.458 Amount Heparin Sod,Pork in 0.45% 62.458 NaCl 25,000 unit In 0.45 % NaCl 1 250ml.bag @ 12 UNITS/KG/HR 9.253 mls/hr IV .Q24H [facility] Rx#: [id number] Other: Weight 77.111 kg GENERAL: The patient is alert and oriented x3, breathing is labored and the patient is currently running at 40% Ventimask. Well developed, well nourished. HEENT: Pupils are round and equally reacting to light. EOMI. No scleral icterus. No conjunctival pallor. Normocephalic, atraumatic. No pharyngeal erythema. No thyromegaly. CARDIOVASCULAR: S1 and S2 present. No murmurs, rubs, or gallops. systolic ejection murmur grade 3/6 heard throughout the precordium PULMONARY:markedly diminished breath sounds bilaterally along with diffuse expiratory wheezes a total lung elkins ABDOMEN: Soft, nontender, nondistended, normoactive bowel sounds. No palpable organomegaly. MUSCULOSKELETAL: No joint swelling or deformity. EXTREMITIES: No cyanosis, clubbing, or pedal edema. NEUROLOGICAL: Gross neurological examination did not reveal any focal deficits. SKIN: No rashes. Results - Laboratory Findings CBC and BMP: 04/09/22 09:14 04/09/22 09:13 PT/INR, D-dimer PT 11.6 sec (9.0-12.0) 04/09/22 09:14 INR 1.1 (<1.2) 04/09/22 09:14 Abnormal lab findings: Abnormal Labs 04/09/22 04/09/22 04/09/22 09:13 09:13 09:14 WBC 13.1 H Neutrophils # 11.3 H Lymphocytes # 0.6 L APTT Sodium 131 L Chloride 95 L Glucose 131 H AST 46 H Troponin I 0.619 H* Influenza Type A (PCR) 04/09/22 04/09/22 04/09/22 09:50 13:05 15:47 WBC Neutrophils # Lymphocytes # APTT 80.1 H Sodium Chloride Glucose AST Troponin I 1.910 H* Influenza Type A (PCR) Detected A - Diagnostic Findings Chest x-ray: image reviewed Assessment and Plan Plan: acute exacerbation of chronic COPD Acute on top of chronic hypoxic respiratory failure currently on a 40% Ventimask Acute influenza A tracheobronchitis, questionable pneumonia, currently on Tamiflu Acute shortness of breath on top of chronic dyspnea secondary to above Acute elevation of troponin, likely type to myocardial ischemia related to COPD exacerbation Laboratory disease/possible aortic stenosis Chronic hypoxic respiratory failure maintained on 3 L of oxygen by nasal cannula Hyperlipidemia Degenerative arthritis Smoker Plan titrate FiO2 to maintain saturation above 90%. May utilize also high flow oxygen Will continue DuoNeb nebulized treatments [id number] IV Solu-Medrol 60 mg every 6 hours Pulmicort and Perforomist neb blotchiness twice a day Tamiflu 75 mg by mouth twice a day Echocardiogram Check pro calcitonin level IV heparin per cardiology Admit the patient to the medical floor. We'll continue to follow.
[2022-04-09] MEDS ORDERED: methylPREDNISolone SOD SUCCI 125 MG/2 ML VIAL IV SCH (18:00)
--- NOTE | 2022-04-09 18:01 | CA ---
Transthoracic Echo Report Name: Blanka Porras Age: 61 Gender: F : 1960 Exam Date: 04/09/2022 12:51 Exam Location: [place] [facility] Ht (in): 65 Wt (lb): 170 Ordering Physician: Juan iMguel Jansen MD ([id number]) Attending/Referring Phys: Arcade Game Technician Sally Romero, COCO Procedure CPT: Indications: dyspnea Cardiac Hx: Chronic Obstructive Pulmonary Disease. Technical Quality: Very technically difficult study Contrast 1: Lumason Total Dose (mL): 4 Contrast 2: Total Dose (mL): MEASUREMENTS (Male / Female) Normal Values 2D ECHO LV Diastolic Diameter PLAX 3.8 cm 4.2 - 5.9 / 3.9 - 5.3 cm LV Systolic Diameter PLAX 2.5 cm IVS Diastolic Thickness 1.6 cm 0.6 - 1.0 / 0.6 - 0.9 cm LVPW Diastolic Thickness 1.8 cm 0.6 - 1.0 / 0.6 - 0.9 cm LV Relative Wall Thickness 0.9 RV Internal Dim ED PLAX 3.2 cm LA Systolic Diameter LX 3.8 cm 3.0 - 4.0 / 2.7 - 3.8 cm DOPPLER AV Peak Velocity 399.8 cm/s AV Peak Gradient 70.6 mmHg AV Mean Velocity 325.1 cm/s AV Mean Gradient 55.7 mmHg AV Velocity Time Integral 76.0 cm MV Area PHT 2.4 cm??? Mitral E Point Velocity 29.5 cm/s Mitral A Point Velocity 76.8 cm/s Mitral E to A Ratio 0.4 MV Deceleration Time 322.7 ms FINDINGS Left Ventricle Normal left ventricle size and systolic function, ejection fraction 55-60%. Severe concentric left ventricle hypertrophy Right Ventricle Normal right ventricular size and function. Right ventricular systolic pressure within normal limits. Right Atrium Normal right atrial size. Left Atrium Normal left atrial size. Mitral Valve Mitral annulus calcification. Mild mitral regurgitation. Aortic Valve Severely calcified aortic valve. Severe aortic stenosis with a peak gradient 71mmHg, mean gradient 56mmHg,. Tricuspid Valve Structurally normal tricuspid valve.mild tricuspid regurgitation. Pulmonic Valve Pulmonic valve not well visualized. Pericardium Normal pericardium. Aorta Normal size aortic root and proximal ascending aorta. CONCLUSIONS 1. Normal left ventricle size and systolic function 2. Severe aortic stenosis 3. Mild mitral and tricuspid regurgitation Previewed by: Dr. Juan Miguel Jansen MD (Electronically Signed) Final Date: 09 April 2022 18:01
[2022-04-09] MEDS: FORMOTEROL FUMARATE 20 MCG/2 ML NEBU INHALATION SCH (20:56)
[2022-04-09] MEDS: BUDESONIDE 0.5 MG/2 ML NEBU INHALATION SCH (20:56)
[2022-04-09] MEDS ORDERED: methylPREDNISolone SOD SUCCI 40 MG/ML 1 ML VIAL IV SCH (21:00)
[2022-04-09 22:39] LABS: Chol/HDL Ratio 3.13 Ratio; LDL Cholesterol,Calculated 87.5 mg/dL (0.0-131.0); VLDL Calculation 11.82 mg/dL (5.00-40.00)
[2022-04-10] MEDS: methylPREDNISolone SOD SUCCI 40 MG/ML 1 ML VIAL IV SCH ×4 (04:17→20:03)
[2022-04-10] MEDS: IPRATROPIUM-ALBUTEROL 3 ML NEB INHALATION SCH ×4 (08:10→21:04)
[2022-04-10] MEDS: FORMOTEROL FUMARATE 20 MCG/2 ML NEBU INHALATION SCH ×2 (08:10→21:04)
[2022-04-10] MEDS: BUDESONIDE 0.5 MG/2 ML NEBU INHALATION SCH ×2 (08:11→21:05)
[2022-04-10] MEDS: OSELTAMIVIR 75 MG CAP PO SCH (08:19)
[2022-04-10] MEDS: METOPROLOL TARTRATE 25 MG TAB PO SCH ×2 (08:20→20:03)
[2022-04-10] MEDS ORDERED: ASPIRIN 325 MG TAB PO SCH (09:00)
[2022-04-10 10:08] LABS: HCT 40.3 % (34.0-46.0); HGB 13.2 gm/dL (11.4-16.0); MCH 30.3 pg (25.0-35.0); MCHC 32.7 g/dL (31.0-37.0); MCV 92.5 fL (80.0-100.0); Mean Platelet Volume 8.5; Platelet Count 185 k/uL (150-450); RBC 4.36 m/uL (3.80-5.40); RDW 13.4 % (11.5-15.5); WBC 10.8 k/uL (3.8-10.6)
[2022-04-10 10:25] LABS: African American GFR (CKD) >90 (>60 ml/min/1.73 sqM); Anion Gap 4 mmol/L; Blood Urea Nitrogen 24 mg/dL (7-17); Calcium 8.8 mg/dL (8.4-10.2); Carbon Dioxide 35 mmol/L (22-30); Chloride 94 mmol/L (98-107); Glucose 143 mg/dL (74-99); Non-African American GFR(CKD) >90 (>60 ml/min/1.73 sqM); Potassium 4.2 mmol/L (3.5-5.1); Sodium 133 mmol/L (137-145)
--- NOTE | 2022-04-10 13:36 | P.PN ---
Subjective Progress Note Date: 04/10/22 History of Present Illness: The patient is a 61-year-old female with a known history of chronic tobacco use stopped a few years ago, history of COPD, followed by Dr. Becker and was told that she has a valvular issue that presented to the hospital with acute dyspnea associated with wheezing and cough. Cardiology consultation was requested for mild troponin elevation. The patient denies any prior history of myocardial infarction or CHF. She is on home oxygen. She had recent cough and wheezing going on for the last week. She denies any fever. She has no peripheral edema, no PND or orthopnea. She denies any chest discomfort, dizziness or palpitations. She is feeling better after receiving respiratory treatment. She is in sinus tachycardia. She has not seen Dr. Becker for over a year. She has been seen in the past by Dr. Morgan. Her troponin was 0.619. She is influenza A positive. April 10 She feels better today, her breathing is better. She denies any chest discomfort, dizziness or palpitation. Her wheezing is improved. She denies any nausea or vomiting. Her echocardiogram showed evidence of severe aortic stenosis. She continues to be in sinus mechanism. Medications: Aspirin, Solu-Medrol, Lopressor 25 mg twice a day, Tamiflu Review of Systems: Respiratory: She has a history of chronic dyspnea and wheezing is chronic obstructive lung disease GI: No nausea or vomiting . No history of peptic ulcer disease. No recent GI bleed. : No hematuria or dysuria. Nervous System: No stroke or seizure. Physical Examination: 7-year-old female alert and oriented no apparent distress,Blood pressure 106/60, Heart rate 80 Head: Normocephalic. Eyes: Sclerae nonicteric. Neck: Good carotid upstroke, no bruit, no jugular venous distention. Lungs: Decrease air exchange , no wheezing, improved compared to yesterday Heart: Regular rate and rhythm, S1-S2, no S3, no rub. Systolic ejection murmur, 3/6. Abdomen: Soft nontender, positive bowel sounds no organomegaly. Extremities: No edema, intact distal pulses. Labs: BUN 24 and a creatinine 0.57, potassium 4.2 Impression: 1. Exacerbation of COPD was influenza a 2. Troponin elevation consistent with type II myocardial infarction 3. Severe aortic stenosis 4. Hyperlipidemia Plan: 1. Restart statin 2. The patient will require for workup of her aortic valve once her lung status and her infection stabilized 3. Follow renal functions 4. I discussed with her and her the recommendations 5. Depending on her progress further recommendations will be made Objective - Vital Signs Vital signs: Vital Signs Temp 97.5 F L 04/10/22 08:21 Pulse 84 04/10/22 12:33 Resp 22 04/10/22 11:24 BP 106/66 04/10/22 11:24 Pulse Ox 90 L 04/10/22 11:29 FiO2 40 04/09/22 16:53 Intake & Output 04/09/22 04/10/22 04/10/22 18:59 06:59 18:59 Intake Total 62.458 63.744 Output Total 200 Balance 62.458 -136.256 Weight 77.111 kg Intake: Intake, IV Titration 62.458 63.744 Amount Heparin Sod,Pork in 0.45% 62.458 63.744 NaCl 25,000 unit In 0.45 % NaCl 1 250ml.bag @ 12 UNITS/KG/HR 9.253 mls/hr IV .Q24H [facility] Rx#: [id number] Output: Urine 200 Other: Voiding Method Bedside Commode Bedside Commode Bedside Commode # Voids 1 - Labs CBC & Chem 7: 04/10/22 09:25 04/10/22 09:25 Labs: Abnormal Lab Results - Last 24 Hours (Table) 04/09/22 04/09/22 04/09/22 Range/Units 13:05 15:47 15:47 WBC (3.8-10.6) k/uL APTT 80.1 H (22.0-30.0) sec Sodium (137-145) mmol/L Chloride (98-107) mmol/L Carbon Dioxide (22-30) mmol/L BUN (7-17) mg/dL Glucose (74-99) mg/dL Troponin I 1.910 H* 2.580 H* (0.000-0.034) ng/mL 04/10/22 04/10/22 04/10/22 Range/Units 00:20 09:25 09:25 WBC 10.8 H (3.8-10.6) k/uL APTT 65.1 H (22.0-30.0) sec Sodium 133 L (137-145) mmol/L Chloride 94 L (98-107) mmol/L Carbon Dioxide 35 H (22-30) mmol/L BUN 24 H (7-17) mg/dL Glucose 143 H (74-99) mg/dL Troponin I (0.000-0.034) ng/mL 04/10/22 Range/Units 09:25 WBC (3.8-10.6) k/uL APTT 53.0 H (22.0-30.0) sec Sodium (137-145) mmol/L Chloride (98-107) mmol/L Carbon Dioxide (22-30) mmol/L BUN (7-17) mg/dL Glucose (74-99) mg/dL Troponin I (0.000-0.034) ng/mL Microbiology - Last 24 Hours (Table) 04/09/22 09:10 Blood Culture - Preliminary Blood No Growth after 24 hours 04/09/22 09:25 Blood Culture - Preliminary Blood No Growth after 24 hours
--- NOTE | 2022-04-10 13:41 | P.PN ---
Subjective Progress Note Date: 04/10/22 A 61-year-old female patient with advanced COPD, maintain on a combination of Breo and Spiriva on outpatient basis in addition to albuterol rescue inhaler. She is a chronic smoker. She has chronic exertional dyspnea. She comes into the hospital because of few days history of worsening shortness of breath, cough chest tightness and wheezing. Further investigation emergency department revealed that the patient tested positive for influenza A. The patient was also seen to be in significant amount of respiratory distress. Based on that, the patient was placed on a 40% Ventimask. Chest x-ray reveals no clear evidence of pneumonia. It is consistent with COPD. The patient is typically on 3 L O2 nasal cannula at home. The white cycles of 15 with a hemoglobin of 14.3 and a platelet count of 155. Cognition profile is within normal limits. Troponin peaked at 1.9. The rest of the electrolytes are normal. ProBNP level is at 1510. She is having hard time breathing at times she is having difficulties in completing full sentences. Her breathing is obviously labored for now. No signs of any CO2 narcosis at this point in time. On 04/10/2022, the patient is feeling better and less short of breath compared to yesterday. She is often Ventimask and currently she is on 6 L O2 nasal cannula. She remains on Tamiflu. She remains on steroids and bronchodilators. No chest pain. No nausea or vomiting. No altered mentation, labs show a white cell count of 10.8 hemoglobin 13.2, BUN 24 creatinine 0.5. She remains on IV heparin regarding abnormal troponin. The patient remains free of any chest pain. Objective - Vital Signs Vital signs: Vital Signs Temp 97.5 F L 04/10/22 08:21 Pulse 86 04/10/22 08:34 Resp 18 04/10/22 08:21 BP 127/78 04/10/22 08:21 Pulse Ox 97 04/10/22 08:21 FiO2 40 04/09/22 16:53 Intake & Output 04/09/22 04/10/22 04/10/22 18:59 06:59 18:59 Intake Total 62.458 63.744 Output Total 200 Balance 62.458 -136.256 Weight 77.111 kg Intake: Intake, IV Titration 62.458 63.744 Amount Heparin Sod,Pork in 0.45% 62.458 63.744 NaCl 25,000 unit In 0.45 % NaCl 1 250ml.bag @ 12 UNITS/KG/HR 9.253 mls/hr IV .Q24H [facility] Rx#: [id number] Output: Urine 200 Other: Voiding Method Bedside Commode Bedside Commode Bedside Commode # Voids 1 - Exam GENERAL: The patient is alert and oriented x3, breathing is labored and the patient is currently running 6 L of oxygen nasal cannula . Well developed, well nourished. HEENT: Pupils are round and equally reacting to light. EOMI. No scleral icterus. No conjunctival pallor. Normocephalic, atraumatic. No pharyngeal erythema. No thyromegaly. CARDIOVASCULAR: S1 and S2 present. No murmurs, rubs, or gallops. systolic ejection murmur grade 3/6 heard throughout the precordium PULMONARY:markedly diminished breath sounds bilaterally along with diffuse expiratory wheezes a total lung elkins ABDOMEN: Soft, nontender, nondistended, normoactive bowel sounds. No palpable organomegaly. MUSCULOSKELETAL: No joint swelling or deformity. EXTREMITIES: No cyanosis, clubbing, or pedal edema. NEUROLOGICAL: Gross neurological examination did not reveal any focal deficits. SKIN: No rashes. - Labs CBC & Chem 7: 04/10/22 09:25 04/10/22 09:25 Labs: Abnormal Lab Results - Last 24 Hours (Table) 04/09/22 04/09/22 04/09/22 Range/Units 09:50 13:05 15:47 WBC (3.8-10.6) k/uL APTT 80.1 H (22.0-30.0) sec Troponin I 1.910 H* (0.000-0.034) ng/mL Influenza Type A (PCR) Detected A (Not Detectd) 04/09/22 04/10/22 04/10/22 Range/Units 15:47 00:20 09:25 WBC 10.8 H (3.8-10.6) k/uL APTT 65.1 H (22.0-30.0) sec Troponin I 2.580 H* (0.000-0.034) ng/mL Influenza Type A (PCR) (Not Detectd) 04/10/22 Range/Units 09:25 WBC (3.8-10.6) k/uL APTT 53.0 H (22.0-30.0) sec Troponin I (0.000-0.034) ng/mL Influenza Type A (PCR) (Not Detectd) Assessment and Plan Plan: acute exacerbation of chronic COPD, improving Acute on top of chronic hypoxic respiratory failure currently on a 6 L O2 nasal cannula, improving Acute influenza A tracheobronchitis, questionable pneumonia, currently on Tamiflu Acute shortness of breath on top of chronic dyspnea secondary to above Acute elevation of troponin, likely type to myocardial ischemia related to COPD exacerbation Valvular heart disease/possible aortic stenosis Chronic hypoxic respiratory failure maintained on 3 L of oxygen by nasal cannula Hyperlipidemia Degenerative arthritis Smoker Plan Titrate FiO2 to maintain saturation above 90%, currently on 6 L Will continue DuoNeb nebulized treatments [id number] IV Solu-Medrol 60 mg every 6 hours Pulmicort and Perforomist neb treatments twice a day Tamiflu 75 mg by mouth twice a day Echocardiogram Check pro calcitonin level is still pending IV heparin was discontinued Workup regarding aortic valve stenosis Admit the patient to the medical floor. We'll continue to follow.
--- NOTE | 2022-04-10 13:46 | P.PN ---
Subjective 61-year-old female came in with compensative shortness of breath wheezing and cough patient is unable to bring up anything. Patient is found to have influenza. Denied any orthopnea paroxysmal nocturnal dyspnea patient denied any history of coronary artery disease or congestive heart failure in the past. Patient is tachycardic patient the serum sodium was low. today is oxygen dependent and uses 3 L of oxygen at home presently on Ventimask. Patient has minimally elevated troponin of 0.6 on 9 secondary to hypoxemia. He does have leukocytosis but no fever does complain of body aches 04/10/2022 Patient is significant clinical improvement in her respiratory status still remains in 2 L of oxygen still significant wheezing on exam. Patient had troponin elevation this was believed secondary to hypoxemia and influenza. Patient months on high-dose steroids at this time. Patient is currently not on any antibiotics. Constitutional: Denied any fatigue denied any fever. Cardio vascular: denied any chest pain, palpitations Gastrointestinal denied any nausea vomiting Pulmonary: Significant improvement in her breathing Neurologic denied any new focal deficits All inpatient medications were reviewed and appropriate changes in these medications as dictated in the interval history and assessment and plan. PHYSICAL EXAMINATION: GENERAL: The patient is alert and oriented x3, not in any acute distress. Well developed, well nourished. HEENT: Pupils are round and equally reacting to light. EOMI. No scleral icterus. No conjunctival pallor. Normocephalic, atraumatic. No pharyngeal erythema. No thyromegaly. CARDIOVASCULAR: S1 and S2 present. No rubs, or gallops. Systolic murmur and diuretic area PULMONARY: Significant expiratory wheezing very minimal air entry into bilateral lung elkins ABDOMEN: Soft, nontender, nondistended, normoactive bowel sounds. No palpable organomegaly. MUSCULOSKELETAL: No joint swelling or deformity. EXTREMITIES: No cyanosis, clubbing, or pedal edema. NEUROLOGICAL: Gross neurological examination did not reveal any focal deficits. SKIN: No rashes. Assessment and plan Acute on chronic hypoxic respiratory failure secondary to influenza and mild COPD exacerbation patient is on systemic steroids patient was started on Tamiflu -Hypervolemic hyponatremia improved with IV fluids, IV fluids at this can you because of severe aortic stenosis patient will bring encourage by mouth intake -Severe aortic stenosis -Troponin elevation secondary to hypoxemia -COPD oxygen dependent chronic hypercapnic respiratory failure Leukocytosis secondary to influenza DVT prophylaxis: Lovenox Objective - Vital Signs Vital signs: Vital Signs Temp 97.5 F L 04/10/22 08:21 Pulse 84 04/10/22 12:33 Resp 22 04/10/22 11:24 BP 106/66 04/10/22 11:24 Pulse Ox 90 L 04/10/22 11:29 FiO2 40 04/09/22 16:53 Intake & Output 04/09/22 04/10/22 04/10/22 18:59 06:59 18:59 Intake Total 62.458 63.744 Output Total 200 Balance 62.458 -136.256 Weight 77.111 kg Intake: Intake, IV Titration 62.458 63.744 Amount Heparin Sod,Pork in 0.45% 62.458 63.744 NaCl 25,000 unit In 0.45 % NaCl 1 250ml.bag @ 12 UNITS/KG/HR 9.253 mls/hr IV .Q24H [facility] Rx#: [id number] Output: Urine 200 Other: Voiding Method Bedside Commode Bedside Commode Bedside Commode # Voids 1 - Labs CBC & Chem 7: 04/10/22 09:25 04/10/22 09:25 Labs: Abnormal Lab Results - Last 24 Hours (Table) 04/09/22 04/09/22 04/09/22 Range/Units 13:05 15:47 15:47 WBC (3.8-10.6) k/uL APTT 80.1 H (22.0-30.0) sec Sodium (137-145) mmol/L Chloride (98-107) mmol/L Carbon Dioxide (22-30) mmol/L BUN (7-17) mg/dL Glucose (74-99) mg/dL Troponin I 1.910 H* 2.580 H* (0.000-0.034) ng/mL 04/10/22 04/10/22 04/10/22 Range/Units 00:20 09:25 09:25 WBC 10.8 H (3.8-10.6) k/uL APTT 65.1 H (22.0-30.0) sec Sodium 133 L (137-145) mmol/L Chloride 94 L (98-107) mmol/L Carbon Dioxide 35 H (22-30) mmol/L BUN 24 H (7-17) mg/dL Glucose 143 H (74-99) mg/dL Troponin I (0.000-0.034) ng/mL 04/10/22 Range/Units 09:25 WBC (3.8-10.6) k/uL APTT 53.0 H (22.0-30.0) sec Sodium (137-145) mmol/L Chloride (98-107) mmol/L Carbon Dioxide (22-30) mmol/L BUN (7-17) mg/dL Glucose (74-99) mg/dL Troponin I (0.000-0.034) ng/mL Microbiology - Last 24 Hours (Table) 04/09/22 09:10 Blood Culture - Preliminary Blood No Growth after 24 hours 04/09/22 09:25 Blood Culture - Preliminary Blood No Growth after 24 hours
[2022-04-10] MEDS: HEPARIN SOD,PORK IN 0.45% NACL 25,000 UNIT in 0.45% NACL 1 250ML.BAG IV SCH (14:06)
[2022-04-10] MEDS: ATORVASTATIN 40 MG TAB PO SCH (15:30)
[2022-04-10 16:35] LABS: Glucose,Whole Blood 185 mg/dL (70-110)
[2022-04-10] MEDS: INSULIN ASPART (NovoLOG) 100 UNIT/ML VIAL SQ SCH ×2 (17:57→20:06)
[2022-04-10 19:48] LABS: Glucose,Whole Blood 114 mg/dL (70-110)
[2022-04-11] MEDS: methylPREDNISolone SOD SUCCI 40 MG/ML 1 ML VIAL IV SCH ×4 (04:35→21:04)
[2022-04-11 05:54] LABS: Glucose,Whole Blood 128 mg/dL (70-110)
[2022-04-11] MEDS: INSULIN ASPART (NovoLOG) 100 UNIT/ML VIAL SQ SCH ×4 (06:40→21:04)
[2022-04-11] MEDS: ASPIRIN 81 MG PO SCH (08:03)
[2022-04-11] MEDS: ATORVASTATIN 40 MG TAB PO SCH (08:03)
[2022-04-11] MEDS: OSELTAMIVIR 75 MG CAP PO SCH (08:03)
[2022-04-11] MEDS: METOPROLOL TARTRATE 25 MG TAB PO SCH ×2 (08:03→21:04)
[2022-04-11 08:08] LABS: African American GFR (CKD) >90 (>60 ml/min/1.73 sqM); Anion Gap 1 mmol/L; Blood Urea Nitrogen 23 mg/dL (7-17); Calcium 8.8 mg/dL (8.4-10.2); Carbon Dioxide 36 mmol/L (22-30); Chloride 95 mmol/L (98-107); Glucose 117 mg/dL (74-99); Non-African American GFR(CKD) >90 (>60 ml/min/1.73 sqM); Potassium 4.2 mmol/L (3.5-5.1); Sodium 132 mmol/L (137-145)
[2022-04-11] MEDS: BUDESONIDE 0.5 MG/2 ML NEBU INHALATION SCH ×2 (08:55→19:20)
[2022-04-11] MEDS: FORMOTEROL FUMARATE 20 MCG/2 ML NEBU INHALATION SCH ×2 (08:55→19:20)
[2022-04-11] MEDS: IPRATROPIUM-ALBUTEROL 3 ML NEB INHALATION SCH ×4 (08:55→19:20)
--- NOTE | 2022-04-11 09:10 | P.PN ---
Subjective History of Present Illness: The patient is a 61-year-old female with a known history of chronic tobacco use stopped a few years ago, history of COPD, followed by Dr. Becker and was told that she has a valvular issue that presented to the hospital with acute dyspnea associated with wheezing and cough. Cardiology consultation was requested for mild troponin elevation. The patient denies any prior history of myocardial infarction or CHF. She is on home oxygen. She had recent cough and wheezing going on for the last week. She denies any fever. She has no peripheral edema, no PND or orthopnea. She denies any chest discomfort, dizziness or palpitations. She is feeling better after receiving respiratory treatment. She is in sinus tachycardia. She has not seen Dr. Becker for over a year. She has been seen in the past by Dr. Morgan. Her troponin was 0.619. She is influenza A positive. April 10 She feels better today, her breathing is better. She denies any chest discomfort, dizziness or palpitation. Her wheezing is improved. She denies any nausea or vomiting. Her echocardiogram showed evidence of severe aortic stenosis. She continues to be in sinus mechanism. Medications: Aspirin, Solu-Medrol, Lopressor 25 mg twice a day, Tamiflu 04/11 Patient states her breathing is slowly improving. Denies any chest pain or pressure. Denies any lightheadedness. Blood pressures borderline. Physical Examination: Head: Normocephalic. Eyes: Sclerae nonicteric. Neck: Good carotid upstroke, no bruit, no jugular venous distention. Lungs: Decrease air exchange , no wheezing, improved compared to yesterday Heart: Regular rate and rhythm, S1-S2, no S3, no rub. Systolic ejection murmur, 3/6. Abdomen: Soft nontender, positive bowel sounds no organomegaly. Extremities: No edema, intact distal pulses. Impression: 1. Exacerbation of COPD was influenza a 2. Troponin elevation consistent with type II myocardial infarction 3. Severe aortic stenosis 4. Hyperlipidemia Plan: Continue current medical regimen. Patient will require further workup of severe aortic stenosis however will be performed once she recovers from influenza. No further recommendations from a cardiology standpoint. Please call with any questions. Objective - Vital Signs Vital signs: Vital Signs Temp 97.8 F 04/11/22 08:00 Pulse 72 04/11/22 09:06 Resp 20 04/11/22 08:00 BP 117/73 04/11/22 08:00 Pulse Ox 90 L 04/11/22 08:00 FiO2 40 04/09/22 16:53 Intake & Output 04/10/22 04/11/22 04/11/22 18:59 06:59 18:59 Output Total 200 Balance -200 Weight 77.11 kg Output: Urine 200 Other: Voiding Method Bedside Commode Bedside Commode # Voids 3 - Labs CBC & Chem 7: 04/10/22 09:25 04/11/22 07:03 Labs: Abnormal Lab Results - Last 24 Hours (Table) 04/10/22 04/10/22 04/10/22 Range/Units 09:25 09:25 09:25 WBC 10.8 H (3.8-10.6) k/uL APTT 53.0 H (22.0-30.0) sec Sodium 133 L (137-145) mmol/L Chloride 94 L (98-107) mmol/L Carbon Dioxide 35 H (22-30) mmol/L BUN 24 H (7-17) mg/dL Glucose 143 H (74-99) mg/dL POC Glucose (mg/dL) (70-110) mg/dL 04/10/22 04/10/22 04/11/22 Range/Units 16:34 19:46 05:52 WBC (3.8-10.6) k/uL APTT (22.0-30.0) sec Sodium (137-145) mmol/L Chloride (98-107) mmol/L Carbon Dioxide (22-30) mmol/L BUN (7-17) mg/dL Glucose (74-99) mg/dL POC Glucose (mg/dL) 185 H 114 H 128 H (70-110) mg/dL 04/11/22 Range/Units 07:03 WBC (3.8-10.6) k/uL APTT (22.0-30.0) sec Sodium 132 L (137-145) mmol/L Chloride 95 L (98-107) mmol/L Carbon Dioxide 36 H (22-30) mmol/L BUN 23 H (7-17) mg/dL Glucose 117 H (74-99) mg/dL POC Glucose (mg/dL) (70-110) mg/dL Microbiology - Last 24 Hours (Table) 04/09/22 09:10 Blood Culture - Preliminary Blood No Growth after 24 hours 04/09/22 09:25 Blood Culture - Preliminary Blood No Growth after 24 hours
[2022-04-11 11:38] LABS: Glucose,Whole Blood 120 mg/dL (70-110)
[2022-04-11] MEDS ORDERED: SODIUM CHLORIDE 0.9% 1,000 ML IV SCH (12:45)
[2022-04-11] MEDS ORDERED: guaiFENesin SYRUP 100MG/5ML 200 MG/10 ML CUP PO PRN (12:55)
[2022-04-11] MEDS ORDERED: SALINE NASAL GEL 14.1 GM TUBE NASAL PRN (13:43)
--- NOTE | 2022-04-11 14:20 | P.PN ---
Subjective Progress Note Date: 04/11/22 Principal diagnosis: Acute exacerbation of COPD, acute influenza A tracheobronchitis. A 61-year-old female patient with advanced COPD, maintain on a combination of Breo and Spiriva on outpatient basis in addition to albuterol rescue inhaler. She is a chronic smoker. She has chronic exertional dyspnea. She comes into the hospital because of few days history of worsening shortness of breath, cough chest tightness and wheezing. Further investigation emergency department rev ealed that the patient tested positive for influenza A. The patient was also seen to be in significant amount of respiratory distress. Based on that, the patient was placed on a 40% Ventimask. Chest x-ray reveals no clear evidence of pneumonia. It is consistent with COPD. The patient is typically on 3 L O2 nasal cannula at home. The white cycles of 15 with a hemoglobin of 14.3 and a platelet count of 155. Cognition profile is within normal limits. Troponin peaked at 1.9. The rest of the electrolytes are normal. ProBNP level is at 1510. She is having hard time breathing at times she is having difficulties in completing full sentences. Her breathing is obviously labored for now. No signs of any CO2 narcosis at this point in time. On 04/10/2022, the patient is feeling better and less short of breath compared to yesterday. She is often Ventimask and currently she is on 6 L O2 nasal cannula. She remains on Tamiflu. She remains on steroids and bronchodilators. No chest pain. No nausea or vomiting. No altered mentation, labs show a white cell count of 10.8 hemoglobin 13.2, BUN 24 creatinine 0.5. She remains on IV heparin regarding abnormal troponin. The patient remains free of any chest pain. Reevaluated today on 04/11/22, patient is feeling better today, nonetheless she remains on 6 L nasal cannula with O2 saturation 91%. Patient is comfortable, she is not in any distress, she does have history of underlying COPD, and she has been seen by Dr. Morgan in the past. Labs are unremarkable today, she has a relatively normal basic metabolic profile. Blood cultures are negative. Remains on Solu-Medrol 60 every 6, she is also on Pulmicort, and DuoNeb updrafts 4 times a day and when necessary she is also on Perforomist. IV fluid at 75 mL/h, patient is on Tamiflu. Objective - Vital Signs Vital signs: Vital Signs Temp 97.8 F 04/11/22 08:00 Pulse 92 04/11/22 13:08 Resp 18 04/11/22 12:03 BP 104/69 04/11/22 11:00 Pulse Ox 91 L 04/11/22 12:03 FiO2 40 04/09/22 16:53 Intake & Output 04/10/22 04/11/22 04/11/22 18:59 06:59 18:59 Intake Total 240 Output Total 200 Balance -200 240 Weight 77.11 kg Intake: Oral 240 Output: Urine 200 Other: Voiding Method Bedside Commode Bedside Commode Bedside Commode # Voids 3 - Exam Physical Exam: Revealed a 61-year-old female in no distress on 6 L nasal cannula Head: Atraumatic, normocephalic. HEENT:[Neck is supple.] [No neck masses.] [No thyromegaly.] [No JVD.] Chest: [Diminished breath sound bilaterally, minimal wheezing on forced expiratory maneuver Cardiac Exam: [Normal S1 and S2, no S3 gallop, no murmur.] Abdomen: [Soft, nontender, no megaly, no rebound, no guarding, normal bowel sounds.] Extremities: [No clubbing, no edema, no cyanosis.] Neurological Exam: [No focal neurologic deficit.] Alert and oriented 3 focal deficits. Psychiatric: Normal mood affect and normal mental status examination. Skin: No rashes - Labs CBC & Chem 7: 04/10/22 09:25 04/11/22 07:03 Labs: Abnormal Lab Results - Last 24 Hours (Table) 04/10/22 04/10/22 04/11/22 Range/Units 16:34 19:46 05:52 Sodium (137-145) mmol/L Chloride (98-107) mmol/L Carbon Dioxide (22-30) mmol/L BUN (7-17) mg/dL Glucose (74-99) mg/dL POC Glucose (mg/dL) 185 H 114 H 128 H (70-110) mg/dL 04/11/22 04/11/22 Range/Units 07:03 11:36 Sodium 132 L (137-145) mmol/L Chloride 95 L (98-107) mmol/L Carbon Dioxide 36 H (22-30) mmol/L BUN 23 H (7-17) mg/dL Glucose 117 H (74-99) mg/dL POC Glucose (mg/dL) 120 H (70-110) mg/dL Microbiology - Last 24 Hours (Table) 04/09/22 09:25 Blood Culture - Preliminary Blood No Growth after 48 hours 04/09/22 09:10 Blood Culture - Preliminary Blood No Growth after 48 hours Assessment and Plan Assessment: Impression: Acute on chronic hypoxic failure secondary to acute exacerbation of COPD and acute influenza A tracheobronchitis Acute influenza A tracheobronchitis, doubt pneumonia, remains on Tamiflu. Chronic hypoxic respiratory failure secondary to COPD Dyslipidemia Mild mitral regurgitation. Severe aortic stenosis based on echocardiogram Tobacco dependence syndrome Recommendation: Continue updrafts Continue Solu-Medrol Continue Tamiflu Continue to titrate oxygen accordingly We will continue to follow Not quite ready for discharge planning at this point Time with Patient: Less than 30
[2022-04-11 16:50] LABS: Glucose,Whole Blood 148 mg/dL (70-110)
[2022-04-11 19:36] LABS: Glucose,Whole Blood 136 mg/dL (70-110)
--- NOTE | 2022-04-11 20:41 | P.PN ---
Subjective Progress Note Date: 04/11/22 61-year-old female came in with compensative shortness of breath wheezing and cough patient is unable to bring up anything. Patient is found to have influenza. Denied any orthopnea paroxysmal nocturnal dyspnea patient denied any history of coronary artery disease or congestive heart failure in the past. Patient is tachycardic patient the serum sodium was low. today is oxygen dependent and uses 3 L of oxygen at home presently on Ventimask. Patient has minimally elevated troponin of 0.6 on 9 secondary to hypoxemia. He does have leukocytosis but no fever does complain of body aches 04/10/2022 Patient is significant clinical improvement in her respiratory status still remains in 2 L of oxygen still significant wheezing on exam. Patient had troponin elevation this was believed secondary to hypoxemia and influenza. Patient months on high-dose steroids at this time. Patient is currently not on any antibiotics. 04/11/2022 Patient is seen and evaluated in follow-up today with pulmonary and cardiology following. Patient is continued on breathing treatments. Sodium dropping down to 132 today and will give gentle IV hydration as patient has not been eating well. Patient reports she does not have An appetite. Encouraged oral intake. Troponins elevated most likely due to type II myocardial infarction with cardiology following. During outpatient follow-up for severe aortic stenosis. Will follow as needed for now. Patient is continued on Tamiflu and will continue. Patient is on 8 L high flow this morning currently weaning down to 6 L. Patient reports she wears 3 L in the outpatient setting although continues to be extremely dyspneic with rest and minimal exertion. Encouraged increased activity as tolerated. Patient is reporting dry hacking cough, will add Robitus sin Review of Systems: Constitutional: Denied any fatigue denied any fever. Cardio vascular: denied any chest pain, palpitations Gastrointestinal denied any nausea vomiting Pulmonary: Significant improvement in her breathing patient reports she is continues to be dyspneic with minimal exertion Neurologic denied any new focal deficits Active Medications Albuterol/Ipratropium (Ipratropium-Albuterol 3 Ml Neb) 3 ml INHALATION RT-QID [facility] Last Admin: 04/11/22 19:20 Dose: 3 ml Aspirin (Aspirin 81 Mg) 81 mg PO DAILY [facility] Last Admin: 04/11/22 08:03 Dose: 81 mg Atorvastatin Calcium (Atorvastatin 40 Mg Tab) 40 mg PO DAILY [facility] Last Admin: 04/11/22 08:03 Dose: 40 mg Budesonide (Budesonide 0.5 Mg/2 Ml Nebu) 0.5 mg INHALATION RT-BID [facility] Last Admin: 04/11/22 19:20 Dose: 0.5 mg Formoterol Fumarate (Formoterol Fumarate 20 Mcg/2 Ml Nebu) 20 mcg INHALATION RT-BID [facility] Last Admin: 04/11/22 19:20 Dose: 20 mcg Guaifenesin (Guaifenesin Syrup 100mg/5ml 200 Mg/10 Ml Cup) 200 mg PO Q6HR PRN PRN Reason: Cough Sodium Chloride (Saline 0.9%) 1,000 mls @ 75 mls/hr IV .[id number] [facility] Stop: 04/12/22 02:04 Last Admin: 04/11/22 13:50 Dose: 75 mls/hr Insulin Aspart (Insulin Aspart (Novolog) 100 Unit/Ml Vial) 0 unit SQ ACHS [facility]; Protocol Last Admin: 04/11/22 16:47 Dose: Not Given Methylprednisolone Sodium Succinate (Methylprednisolone Sod Succi 40 Mg/Ml 1 Ml Vial) 60 mg IV Q6H [facility] Last Admin: 04/11/22 16:17 Dose: 60 mg Metoprolol Tartrate (Metoprolol Tartrate 25 Mg Tab) 25 mg PO BID [facility] Last Admin: 04/11/22 08:03 Dose: 25 mg Nitroglycerin (Nitroglycerin Sl Tabs 0.4 Mg Tab) 0.4 mg SUBLINGUAL Q5M PRN PRN Reason: Chest Pain Oseltamivir Phosphate (Oseltamivir 75 Mg Cap) 75 mg PO DAILY [facility]; Protocol Last Admin: 04/11/22 08:03 Dose: 75 mg Sodium Chloride (Saline Nasal Gel 14.1 Gm Tube) 1 applic NASAL Q4HR PRN PRN Reason: Dry Nasal Passages PHYSICAL EXAMINATION: GENERAL: The patient is alert and oriented x3, not in any acute distress. Well developed, well nourished. appears much older than stated age HEENT: Pupils are round and equally reacting to light. EOMI. No scleral icterus. No conjunctival pallor. Normocephalic, atraumatic. No pharyngeal erythema. No thyromegaly. CARDIOVASCULAR: S1 and S2 present. No rubs, or gallops. Systolic murmur noted PULMONARY: slightly improved expiratory wheezing very minimal air entry into bilateral lung elkins ABDOMEN: Soft, nontender, nondistended, normoactive bowel sounds. No palpable organomegaly. MUSCULOSKELETAL: No joint swelling or deformity. EXTREMITIES: No cyanosis, clubbing, or pedal edema. NEUROLOGICAL: Gross neurological examination did not reveal any focal deficits. SKIN: No rashes. Assessment: -Acute on chronic hypoxic respiratory failure secondary to influenza and mild COPD exacerbation -Hypervolemic hyponatremia improved with IV fluids -Severe aortic stenosis -Troponin elevation secondary to hypoxemia, likely type II myocardial infarction -COPD oxygen dependent chronic hypercapnic respiratory failure -Leukocytosis secondary to influenza -DVT prophylaxis: Lovenox Plan: Recommend continue with medications on Tamiflu along with steroids and DuoNeb treatments Encouraged oral intake and fluids along with monitoring of any fevers Continue with oxygen supplementation as patient was on 8 L this morning currently down to 6 L Encouraged increase activity as tolerated Cardiology following as needed and will need outpatient workup for severe sten osis. Prognosis is guarded The impression and plan of care has been dictated by Vanna Chacon, Nurse Practitioner as directed. Dr. Farhan MD I have performed a history and examination and MDM of this patient, discussed the same with the dictator, and agree with the dictator's assessment and plan as written ,documented as a scribe. Based on total visit time, I have performed more than 50% of the visit. Objective - Vital Signs Vital signs: Vital Signs Temp 97.8 F 04/11/22 08:00 Pulse 72 04/11/22 09:16 Resp 20 04/11/22 08:00 BP 117/73 04/11/22 08:00 Pulse Ox 90 L 04/11/22 08:00 FiO2 40 04/09/22 16:53 Intake & Output 04/10/22 04/11/22 04/11/22 18:59 06:59 18:59 Output Total 200 Balance -200 Weight 77.11 kg Output: Urine 200 Other: Voiding Method Bedside Commode Bedside Commode # Voids 3 - Labs CBC & Chem 7: 04/10/22 09:25 04/11/22 07:03 Labs: Abnormal Lab Results - Last 24 Hours (Table) 04/10/22 04/10/22 04/10/22 Range/Units 09:25 09:25 09:25 WBC 10.8 H (3.8-10.6) k/uL APTT 53.0 H (22.0-30.0) sec Sodium 133 L (137-145) mmol/L Chloride 94 L (98-107) mmol/L Carbon Dioxide 35 H (22-30) mmol/L BUN 24 H (7-17) mg/dL Glucose 143 H (74-99) mg/dL POC Glucose (mg/dL) (70-110) mg/dL 04/10/22 04/10/22 04/11/22 Range/Units 16:34 19:46 05:52 WBC (3.8-10.6) k/uL APTT (22.0-30.0) sec Sodium (137-145) mmol/L Chloride (98-107) mmol/L Carbon Dioxide (22-30) mmol/L BUN (7-17) mg/dL Glucose (74-99) mg/dL POC Glucose (mg/dL) 185 H 114 H 128 H (70-110) mg/dL 04/11/22 Range/Units 07:03 WBC (3.8-10.6) k/uL APTT (22.0-30.0) sec Sodium 132 L (137-145) mmol/L Chloride 95 L (98-107) mmol/L Carbon Dioxide 36 H (22-30) mmol/L BUN 23 H (7-17) mg/dL Glucose 117 H (74-99) mg/dL POC Glucose (mg/dL) (70-110) mg/dL Microbiology - Last 24 Hours (Table) 04/09/22 09:10 Blood Culture - Preliminary Blood No Growth after 24 hours 04/09/22 09:25 Blood Culture - Preliminary Blood No Growth after 24 hours
[2022-04-12 03:35] VITALS: TEMP 97.6
[2022-04-12] MEDS: methylPREDNISolone SOD SUCCI 40 MG/ML 1 ML VIAL IV SCH (03:36)
[2022-04-12] MEDS: INSULIN ASPART (NovoLOG) 100 UNIT/ML VIAL SQ SCH ×2 (05:53→11:42)
[2022-04-12 05:55] LABS: Glucose,Whole Blood 138 mg/dL (70-110)
[2022-04-12] MEDS: OSELTAMIVIR 75 MG CAP PO SCH (08:04)
[2022-04-12] MEDS: ASPIRIN 81 MG PO SCH (08:04)
[2022-04-12] MEDS: METOPROLOL TARTRATE 25 MG TAB PO SCH (08:04)
[2022-04-12] MEDS: ATORVASTATIN 40 MG TAB PO SCH (08:04)
[2022-04-12 08:25] LABS: African American GFR (CKD) >90 (>60 ml/min/1.73 sqM); Anion Gap 3 mmol/L; Blood Urea Nitrogen 24 mg/dL (7-17); Calcium 8.7 mg/dL (8.4-10.2); Carbon Dioxide 32 mmol/L (22-30); Chloride 100 mmol/L (98-107); Glucose 124 mg/dL (74-99); Non-African American GFR(CKD) >90 (>60 ml/min/1.73 sqM); Potassium 4.6 mmol/L (3.5-5.1); Sodium 135 mmol/L (137-145)
[2022-04-12] MEDS: FORMOTEROL FUMARATE 20 MCG/2 ML NEBU INHALATION SCH (08:38)
[2022-04-12] MEDS: IPRATROPIUM-ALBUTEROL 3 ML NEB INHALATION SCH ×2 (08:38→12:09)
[2022-04-12 11:22] VITALS: BP 138/87; RESP 18
[2022-04-12 11:41] LABS: Glucose,Whole Blood 128 mg/dL (70-110)
[2022-04-12 12:12] VITALS: PULSE 75
--- NOTE | 2022-04-12 12:40 | P.PN ---
Subjective Progress Note Date: 04/12/22 Principal diagnosis: Acute exacerbation of COPD, acute influenza A tracheobronchitis. A 61-year-old female patient with advanced COPD, maintain on a combination of Breo and Spiriva on outpatient basis in addition to albuterol rescue inhaler. She is a chronic smoker. She has chronic exertional dyspnea. She comes into the hospital because of few days history of worsening shortness of breath, cough chest tightness and wheezing. Further investigation emergency department rev ealed that the patient tested positive for influenza A. The patient was also seen to be in significant amount of respiratory distress. Based on that, the patient was placed on a 40% Ventimask. Chest x-ray reveals no clear evidence of pneumonia. It is consistent with COPD. The patient is typically on 3 L O2 nasal cannula at home. The white cycles of 15 with a hemoglobin of 14.3 and a platelet count of 155. Cognition profile is within normal limits. Troponin peaked at 1.9. The rest of the electrolytes are normal. ProBNP level is at 1510. She is having hard time breathing at times she is having difficulties in completing full sentences. Her breathing is obviously labored for now. No signs of any CO2 narcosis at this point in time. On 04/10/2022, the patient is feeling better and less short of breath compared to yesterday. She is often Ventimask and currently she is on 6 L O2 nasal cannula. She remains on Tamiflu. She remains on steroids and bronchodilators. No chest pain. No nausea or vomiting. No altered mentation, labs show a white cell count of 10.8 hemoglobin 13.2, BUN 24 creatinine 0.5. She remains on IV heparin regarding abnormal troponin. The patient remains free of any chest pain. Reevaluated today on 04/11/22, patient is feeling better today, nonetheless she remains on 6 L nasal cannula with O2 saturation 91%. Patient is comfortable, she is not in any distress, she does have history of underlying COPD, and she has been seen by Dr. Morgan in the past. Labs are unremarkable today, she has a relatively normal basic metabolic profile. Blood cultures are negative. Remains on Solu-Medrol 60 every 6, she is also on Pulmicort, and DuoNeb updrafts 4 times a day and when necessary she is also on Perforomist. IV fluid at 75 mL/h, patient is on Tamiflu. Reevaluated today on 04/12/22, patient is feeling much better, patient is asking to be discharged home. Patient does have home oxygen and she is normally on 4-5 L at home. Hence I'm recommending that the patient could be discharged home on her usual bronchodilators, she will need to have a course of prednisone a poor and over 2 weeks. She will continue full dose of Tamiflu for a total of 5 days. And the patient should have follow-up with Dr. morgan on outpatient basis since he has seen her in the past for her underlying COPD Objective - Vital Signs Vital signs: Vital Signs Temp 97.6 F 04/12/22 08:01 Pulse 75 04/12/22 12:21 Resp 18 04/12/22 11:11 BP 138/87 04/12/22 11:11 Pulse Ox 90 L 04/12/22 11:11 FiO2 40 04/09/22 16:53 Intake & Output 04/11/22 04/12/22 04/12/22 18:59 06:59 18:59 Intake Total 240 237 110 Balance 240 237 110 Intake: Oral 240 237 110 Other: Voiding Method Bedside Commode Bedside Commode Bedside Commode # Voids 2 2 1 # Bowel Movements 1 - Exam Physical Exam: Revealed a 61-year-old female in no distress on 5 L nasal cannula Head: Atraumatic, normocephalic. HEENT:[Neck is supple.] [No neck masses.] [No thyromegaly.] [No JVD.] Chest: [Diminished breath sound bilaterally, nor rhonchi no wheezes Cardiac Exam: [Normal S1 and S2, no S3 gallop, no murmur.] Abdomen: [Soft, nontender, no megaly, no rebound, no guarding, normal bowel sounds.] Extremities: [No clubbing, no edema, no cyanosis.] Neurological Exam: [No focal neurologic deficit.] Alert and oriented 3 focal deficits. Psychiatric: Normal mood affect and normal mental status examination. Skin: No rashes - Labs CBC & Chem 7: 04/10/22 09:25 04/12/22 07:13 Labs: Abnormal Lab Results - Last 24 Hours (Table) 04/11/22 04/11/22 04/12/22 Range/Units 16:46 19:35 05:53 Sodium (137-145) mmol/L Carbon Dioxide (22-30) mmol/L BUN (7-17) mg/dL Glucose (74-99) mg/dL POC Glucose (mg/dL) 148 H 136 H 138 H (70-110) mg/dL 04/12/22 04/12/22 Range/Units 07:13 11:40 Sodium 135 L (137-145) mmol/L Carbon Dioxide 32 H (22-30) mmol/L BUN 24 H (7-17) mg/dL Glucose 124 H (74-99) mg/dL POC Glucose (mg/dL) 128 H (70-110) mg/dL Microbiology - Last 24 Hours (Table) 04/09/22 09:25 Blood Culture - Preliminary Blood No Growth after 72 hours 04/09/22 09:10 Blood Culture - Preliminary Blood No Growth after 72 hours Assessment and Plan Assessment: Impression: Acute on chronic hypoxic failure secondary to acute exacerbation of COPD and acute influenza A tracheobronchitis Acute influenza A tracheobronchitis, doubt pneumonia, remains on Tamiflu. Chronic hypoxic respiratory failure secondary to COPD Dyslipidemia Mild mitral regurgitation. Severe aortic stenosis based on echocardiogram Tobacco dependence syndrome Recommendation: [facility] change Solu-Medrol to prednisone burst and taper over the next 2 weeks on outpatient basis Continue Tamiflu, total of 5 day course treatment patient to continue her oxygen at home. We will clear the patient to be discharged home if cleared by other cons ultants should have follow-up on outpatient basis with Dr. morgan Time with Patient: Less than 30
--- NOTE | 2022-04-13 04:52 | P.DS ---
Providers Date of admission: 04/09/22 12:32 Expected date of discharge: 04/12/22 Attending physician: Dudley Real Consults: 04/09/22 11:28 Consult Physician Routine Consulting Provider: Nelly Rahman Consult Reason/Comments: copd Do you want consulting provider notified?: Yes Primary care physician: Jeremy Ennis [facility] Course: Final diagnosis -Acute on chronic hypoxic respiratory failure secondary to influenza and mild COPD exacerbation -Hypervolemic hyponatremia improved -Severe aortic stenosis -Troponin elevation secondary to hypoxemia, likely type II myocardial infarction -COPD oxygen dependent chronic hypercapnic respiratory failure -Leukocytosis secondary to influenza -DVT prophylaxis Discharge disposition Patient is being discharged in a stable condition with guarded prognosis to home. Patient will follow-up with Dr. Ennis in the outpatient setting upon discharge. Patient is to continue with Tamiflu and prednisone to complete the course. Patient to follow-up with cardiology and pulmonary as scheduled. Total time taken is greater than 35 minutes. Hospital course This is a 61-year-old female who was recently admitted with severe shortness of breath secondary to COPD exacerbation and also found to be positive for influenza. Patient was on high flow oxygen and has been weaned down her chronic 5 L. Patient was continued on Tamiflu and also prednisone and will continue in the outpatient setting to complete the course. Patient continues to have extremely diminished breath sounds although feels improved and has been cleared by consultations for discharge. Recommending close outpatient follow-up. Patient also follow-up with cardiology for her aortic stenosis with for COPD has improved and influenza resolved. Patient is extremely anxious to go home today. Please refer to other consultation notes for further HPI. Currently no reports of chest pain, worsening shortness of breath, or palpitations. Patient is afebrile. No reports of nausea or vomiting and patient is tolerating diet. Patient will be discharged home today. Guarded prognosis. Physical exam: Gen: This is a 61-year-old female who is awake, alert and oriented 3, well- developed, well-nourished, appears older than stated age HEENT: Head is atraumatic, normocephalic. Pupils equal, round. Sclerae is anicteric. NECK: Supple. No JVD. No lymphadenopathy. No thyromegaly. LUNGS: Diminished breath sounds bilaterally with some scattered rhonchi and improvement in wheezing noted. No intercostal retractions. HEART: Regular rate and rhythm. No murmur. ABDOMEN: Soft. Bowel sounds are present. No masses. No tenderness. EXTREMITIES: No pedal edema. No calf tenderness. NEUROLOGICAL: Patient is awake, alert and oriented x3. Cranial nerves 2 through 12 are grossly intact. Please refer to medication reconciliation sheet for a list of medications. The impression and plan of care has been dictated by Vanna Chacon, Nurse Practitioner as directed. Dr. Farhan MD I have performed a history and examination and MDM of this patient, discussed the same with the dictator, and agree with the dictator's assessment and plan as written ,documented as a scribe. Based on total visit time, I have performed more than 50% of the visit. Patient Condition at Discharge: Fair Plan - Discharge Summary New Discharge Prescriptions: New Aspirin 81 mg PO DAILY 30 Days #30 tab Metoprolol Tartrate [Lopressor] 25 mg PO BID 30 Days #60 tab Saline Nasal Gel [[place] Nasal Gel] 1 applic NASAL Q4HR PRN #1 each PRN Reason: Dry Nasal Passages Ipratropium-Albuterol Nebulize [Duoneb 0.5 mg-3 mg/3 ml Soln] 3 ml INHALATION RT-QID 30 Days #120 each predniSONE 10 mg PO DIRECTED #30 tab guaiFENesin SYRUP 100MG/5ML [Robitussin] 200 mg PO Q6HR PRN #240 ml PRN Reason: Cough Oseltamivir [Tamiflu] 75 mg PO DAILY 2 Days #2 cap Continue Meloxicam [Mobic] 7.5 mg PO BID Fluticasone/Vilanterol [Breo Ellipta 200-25 Mcg Inhaler] 1 puff INHALATION RT-DAILY Albuterol Inhaler [Ventolin Hfa Inhaler] 2 puff INHALATION RT-Q4H PRN PRN Reason: Shortness Of Breath Tiotropium [place] [Spiriva Handihaler] 18 mcg INHALATION RT-DAILY Atorvastatin [Lipitor] 40 mg PO HS Discontinued hydrOXYzine HCL [Atarax] 25 mg PO BID Metoprolol Tartrate [Lopressor] 25 mg PO DAILY lisinopriL [Zestril] 20 mg PO DAILY Discharge Medication List Albuterol Inhaler [Ventolin Hfa Inhaler] 2 puff INHALATION RT-Q4H PRN 04/09/22 [History] Atorvastatin [Lipitor] 40 mg PO HS 04/09/22 [History] Fluticasone/Vilanterol [Breo Ellipta 200-25 Mcg Inhaler] 1 puff INHALATION RT- DAILY 04/09/22 [History] Meloxicam [Mobic] 7.5 mg PO BID 04/09/22 [History] Tiotropium [place] [Spiriva Handihaler] 18 mcg INHALATION RT-DAILY 04/09/22 [History] Aspirin 81 mg PO DAILY 30 Days #30 tab 04/12/22 [Rx] Ipratropium-Albuterol Nebulize [Duoneb 0.5 mg-3 mg/3 ml Soln] 3 ml INHALATION RT-QID 30 Days #120 each 04/12/22 [Rx] Metoprolol Tartrate [Lopressor] 25 mg PO BID 30 Days #60 tab 04/12/22 [Rx] Oseltamivir [Tamiflu] 75 mg PO DAILY 2 Days #2 cap 04/12/22 [Rx] Saline Nasal Gel [[place] Nasal Gel] 1 applic NASAL Q4HR PRN #1 each 04/12/22 [Rx] guaiFENesin SYRUP 100MG/5ML [Robitussin] 200 mg PO Q6HR PRN #240 ml 04/12/22 [Rx] predniSONE 10 mg PO DIRECTED #30 tab 04/12/22 [Rx] Follow up Appointment(s)/Referral(s): [facility], [NON-STAFF] - (AGENCY WILL CONTACT YOU. ) Antoni Hinkle DO [STAFF PHYSICIAN] - 04/20/22 2:45 pm Júnior Morgan DO [Doctor of Osteopathic Medicine] - 1 Week (OFFICE IS NOT ANSWERING, PLEASE CALL AND SCHEDULE APPOINTMENT.) Jeremy Ennis DO [Primary Care Provider] - 04/13/22 8:15 am Patient Instructions/Handouts: Metoprolol (By mouth), Prednisone (By mouth), Aspirin (By mouth), Guaifenesin (By mouth), Oseltamivir (By mouth), Sodium Chloride (Into the nose), Heart Attack (DC), Influenza (DC), COPD (Chronic Obstructive Pulmonary Disease) (DC) Activity/Diet/Wound Care/Special Instructions: Patient requires a bedside commode due to being room confined from shortness of breath due to COPD Activity is limited until follow-up Follow-up with pulmonary outpatient Follow-up with cardiology outpatient Continue his medications as prescribed Continue heart healthy diet Discharge Disposition: HOME WITH HOME HEALTH SERVICES
[2022-04-13] MEDS ORDERED: predniSONE 20 MG TAB PO SCH (09:00)
== END 2022-04-12 13:19 | disposition home health service (06) | DRG 193 ==
LOC: EC 09:05 → 3SCARD 12:32
PROVIDERS: ADMIT Internal Medicine; ATTEND Internal Medicine
DX: J10.1 Influenza due to other identified influenza virus with other respiratory manifestations (principal); I21.A1 Myocardial infarction type 2; J96.21 Acute and chronic respiratory failure with hypoxia; J96.22 Acute and chronic respiratory failure with hypercapnia; J44.0 Chronic obstructive pulmonary disease with (acute) lower respiratory infection; J44.1 Chronic obstructive pulmonary disease with (acute) exacerbation; E87.1 Hypo-osmolality and hyponatremia; I08.3 Combined rheumatic disorders of mitral, aortic and tricuspid valves; Z20.822 Contact with and (suspected) exposure to COVID-19; J20.9 Acute bronchitis, unspecified; Z79.899 Other long term (current) drug therapy; E86.1 Hypovolemia; E87.70 Fluid overload, unspecified; I25.10 Atherosclerotic heart disease of native coronary artery without angina pectoris; F17.200 Nicotine dependence, unspecified, uncomplicated; E78.5 Hyperlipidemia, unspecified; Z99.81 Dependence on supplemental oxygen; Z79.1 Long term (current) use of non-steroidal anti-inflammatories (NSAID); Z98.51 Tubal ligation status
CPT/HCPCS: 36415; 71046; 80048; 80053; 80061; 83605; 83735; 83880; 84484; 85025; 85027; 85610; 85730; 87040; 87636; 93005; 93306; 94640; 94760; 96365; 96366; 96367; 96375; 99291

== ENCOUNTER 2022-07-12 23:05 | Inpatient (IN) | payer MEDICARE, OTHER ==
[2022-07-12] MEDS ORDERED: IPRATROPIUM 0.5 MG/2.5 ML NEBU INHALATION STA (23:11)
[2022-07-12] MEDS ORDERED: DEXAMETHASONE SOD PHOSPHATE 10 MG/ML 1 ML VIAL IVP STA (23:11)
[2022-07-12] MEDS ORDERED: ALBUTEROL NEB (CONC) 2.5 MG/0.5 ML INHALATION STA (23:11)
[2022-07-12] MEDS ORDERED: LORazepam 2 MG/ML INJ IV STA (23:17)
[2022-07-12] MEDS: MAGNESIUM SULFATE-D5W PMX 1 GM in DEXTROSE/WATER 1 100ML.BAG IVPB SCH (23:24)
--- NOTE | 2022-07-12 23:33 | XR ---
EXAMINATION TYPE: XR chest 1V portable DATE OF EXAM: 07/12/2022 COMPARISON: 06/14/2022 HISTORY: Difficulty breathing TECHNIQUE: Single view FINDINGS: There is some coarse interstitial density in the lateral right lower lung field. Heart is e nlarged. No heart failure seen. There are no hilar masses. Thoracic aorta is atheromatous. IMPRESSION: There is some right lower lobe pneumonia which appears new compared to old exam.
[2022-07-12 23:41] LABS: Basophils # (A) 0.1 k/uL (0-0.2); Basophils % (A) 1 %; Eosinophils # (A) 0.4 k/uL (0-0.7); Eosinophils % (A) 3 %; HCT 41.9 % (34.0-46.0); HGB 13.6 gm/dL (11.4-16.0); Lymphocytes # (A) 2.1 k/uL (1.0-4.8); Lymphocytes % (A) 17 %; MCH 30.2 pg (25.0-35.0); MCHC 32.4 g/dL (31.0-37.0); MCV 93.1 fL (80.0-100.0); Mean Platelet Volume 7.4; Monocytes # (A) 0.8 k/uL (0-1.0); Monocytes % (A) 6 %; Neutrophils % (A) 72 %; Platelet Count 238 k/uL (150-450); RBC 4.51 m/uL (3.80-5.40); RDW 12.9 % (11.5-15.5); WBC 12.6 k/uL (3.8-10.6)
[2022-07-12] MEDS ORDERED: CEFEPIME 2 GM in SODIUM CHLORIDE 0.9% 100 ML IVPB STA (23:45)
[2022-07-12] MEDS ORDERED: VANCOMYCIN 1,500 MG in SODIUM CHLORIDE 0.9% 250 ML IVPB STA (23:45)
[2022-07-12] MEDS ORDERED: VANCOMYCIN 1,500 MG in SODIUM CHLORIDE 0.9% 500 ML 500 ML IVPB STA (23:47)
[2022-07-12] MEDS ORDERED: VANCOMYCIN IV PER PHARMACY 1 EACH MISC MISCELLANE PRN (23:47)
[2022-07-12 23:49] LABS: INR 0.9 (<1.2); Partial Thromboplastin Time 25.6 sec (22.0-30.0); Prothrombin Time 9.7 sec (9.0-12.0)
[2022-07-13 00:25] LABS: ALT 13 U/L (4-34); African American GFR (CKD) >90 (>60 ml/min/1.73 sqM); Albumin 3.6 g/dL (3.5-5.0); Blood Urea Nitrogen 15 mg/dL (7-17); Calcium 8.8 mg/dL (8.4-10.2); Chloride 91 mmol/L (98-107); Glucose 142 mg/dL (74-99); Lipase 38 U/L (23-300); Non-African American GFR(CKD) >90 (>60 ml/min/1.73 sqM); Sodium 133 mmol/L (137-145); Total Bilirubin 0.5 mg/dL (0.2-1.3); Total Protein 6.6 g/dL (6.3-8.2)
--- NOTE | 2022-07-13 00:30 | ED ---
General Adult HPI - General Chief complaint: Shortness of Breath Stated complaint: SOB Time Seen by Provider: 07/12/22 23:07 Source: patient, EMS Mode of arrival: EMS Limitations: no limitations - History of Present Illness Initial comments: This is a 61-year-old female with a past medical history including COPD and hypertension presented to the emergency department via EMS for increasing shortness of breath. The patient was speaking in single word sentences and was tachypneic with tripoding noted. The patient stated that this breathing has worsened over the last several days and was made worse today. The patient was to Neck and using accessory muscles for breathing. The patient cannot provide any further history at this time due to her tachypnea and shortness of breath. - Related Data Home Medications Medication Instructions Recorded Confirmed Albuterol Inhaler [Ventolin Hfa 2 puff INHALATION RT-Q4H PRN 04/09/22 06/15/22 Inhaler] Atorvastatin [Lipitor] 40 mg PO HS 04/09/22 06/15/22 Fluticasone/Vilanterol [Breo 1 puff INHALATION RT-DAILY 04/09/22 06/15/22 Ellipta 200-25 Mcg Inhaler] Meloxicam [Mobic] 7.5 mg PO BID 04/09/22 06/15/22 Tiotropium [place] [Spiriva 18 mcg INHALATION RT-DAILY 04/09/22 06/15/22 Handihaler] Sertraline [Zoloft] 100 mg PO DAILY 06/15/22 06/15/22 lisinopriL [Zestril] 30 mg PO DAILY 06/15/22 06/15/22 Previous Rx's Medication Instructions Recorded Aspirin 81 mg PO DAILY 30 Days #30 tab 04/12/22 Metoprolol Tartrate [Lopressor] 25 mg PO BID 30 Days #60 tab 04/12/22 Acetaminophen Tab [Tylenol] 325 mg PO Q6HR PRN tab 06/16/22 predniSONE 10 mg PO DIRECTED #30 tab 06/16/22 Allergies Allergy/AdvReac Type Severity Reaction Status Date / Time No Known Allergies Allergy Verified 06/15/22 07:59 Review of Systems ROS Statement: Those systems with pertinent positive or pertinent negative responses have been documented in the HPI. ROS Other: All systems not noted in ROS Statement are negative. Past Medical History Past Medical History: Coronary Artery Disease (CAD), Chest Pain / Angina, COPD, Respiratory Disorder Additional Past Medical History / Comment(s): Chronic hypercapnic respiratory failure, home oxygen at 4L/[place] ATC, tracheobronchitis, aortic valve stenosis, chronic low back pain, DJD History of Any Multi-Drug Resistant Organisms: None Reported Past Surgical History: Breast Surgery, Tubal Ligation Additional Past Surgical History / Comment(s): Bilateral breast reductions, bilateral cataract removals. Past Anesthesia/Blood Transfusion Reactions: No Reported Reaction Past Psychological History: Anxiety, Depression Smoking Status: Former smoker - Past Family History Father History Unknown: Yes Mother Family Medical History: Congestive Heart Failure (CHF), Diabetes Mellitus General Exam Limitations: no limitations General appearance: alert, in distress (Tachypnea with tripoding) Head exam: Present: atraumatic, normocephalic, normal inspection Eye exam: Present: normal appearance, PERRL Pupils: Present: normal accommodation ENT exam: Present: normal exam, normal oropharynx, mucous membranes moist Neck exam: Present: normal inspection, full ROM Respiratory exam: Present: wheezes (Minor expiratory wheezes heard bilaterally however overall significantly decreased breath sounds), decreased breath sounds Cardiovascular Exam: Present: normal rhythm, tachycardia GI/Abdominal exam: Present: soft, normal bowel sounds Extremities exam: Present: normal inspection, full ROM Back exam: Present: normal inspection, full ROM Neurological exam: Present: alert, oriented X3, CN II-XII intact Psychiatric exam: Present: normal affect, normal mood Skin exam: Present: warm, dry Course Vital Signs 07/12/22 07/12/22 07/12/22 23:08 23:14 23:18 Temperature 97.4 F L Pulse Rate 107 H Respiratory 33 H Rate Blood Pressure 150/121 O2 Sat by Pulse 99 Oximetry Fraction of 60 Inspired Oxygen (FIO2) 07/12/22 07/12/22 07/12/22 23:19 23:20 23:26 Temperature Pulse Rate 86 Respiratory Rate Blood Pressure 150/121 175/115 O2 Sat by Pulse 97 99 Oximetry Fraction of Inspired Oxygen (FIO2) 07/12/22 07/12/22 07/12/22 23:30 23:34 23:40 Temperature Pulse Rate 82 87 Respiratory Rate Blood Pressure 177/102 168/115 O2 Sat by Pulse 98 98 Oximetry Fraction of Inspired Oxygen (FIO2) 03/21/23 03/22/23 03/22/23 23:50 00:00 00:10 Temperature Pulse Rate 84 81 Respiratory Rate Blood Pressure 168/115 168/115 112/65 O2 Sat by Pulse 98 99 98 Oximetry Fraction of Inspired Oxygen (FIO2) 07/13/22 07/13/22 07/13/22 00:16 00:20 00:30 Temperature Pulse Rate 81 Respiratory Rate Blood Pressure 112/65 O2 Sat by Pulse 98 97 97 Oximetry Fraction of Inspired Oxygen (FIO2) 07/13/22 07/13/22 07/13/22 00:40 00:50 01:00 Temperature Pulse Rate 80 Respiratory Rate Blood Pressure 141/88 O2 Sat by Pulse 98 98 96 Oximetry Fraction of Inspired Oxygen (FIO2) 07/13/22 07/13/22 01:10 01:20 Temperature Pulse Rate 79 73 Respiratory 16 Rate Blood Pressure 129/97 142/79 O2 Sat by Pulse 96 98 Oximetry Fraction of Inspired Oxygen (FIO2) EKG Findings - EKG Comments: EKG Findings:: An EKG was obtained and was interpreted by myself showing a rate of 88, LA interval of 144, QRS duration of 100 and QTC of 411. This EKG showed a normal sinus rhythm with no ST segment elevation or depression noted. Medical Decision Making - Medical Decision Making Was pt. sent in by a medical professional or institution (, PA, COMPUTER INSTALLER, urgent care, hospital, or snf...) When possible be specific @ -No Did you speak to anyone other than the patient for history (EMS, parent, family, police, friend...)? What history was obtained from this source @ -Yes, EMS Did you review nursing and triage notes (agree or disagree)? Why? @ -I reviewed and agree with nursing and triage notes Were old charts reviewed (outside hosp., previous admission, EMS record, old EKG, old radiological studies, urgent care reports/EKG's, snf records)? Report findings @ -No old charts were reviewed Differential Diagnosis (chest pain, altered mental status, abdominal pain women, abdominal pain men, vaginal bleeding, weakness, fever, dyspnea, syncope, headache, dizziness, GI bleed, back pain, seizure, CVA, palpatations, mental health)? @ -COPD exacerbation, pneumonia, pneumothorax EKG interpreted by me (3pts min.). @ -As above X-rays interpreted by me (1pt min.). @ -Chest x-ray was obtained and was interpreted by myself showing right lower lobe pneumonia which appears new compared to the old exam. CT interpreted by me (1pt min.). @ -None done U/S interpreted by me (1pt. min.). @ -None done What testing was considered but not performed or refused? (CT, X-rays, U/S, labs)? Why? @ -None What meds were considered but not given or refused? Why? @ -None Did you discuss the management of the patient with other professionals (chemo kendall i.e. , PA, COMPUTER INSTALLER, lab, RT, psych nurse, social problems specialist, hand loom weaver, teacher, credit products officer, case management associate)? Give summary @ -Yes, admitting provider Was smoking cessation discussed for >3mins.? @ -No Was critical care preformed (if so, how long)? @ -Yes, see above Were there social determinants of health that impacted care today? How? (Homelessness, low income, unemployed, alcoholism, drug addiction, transportation, low edu. Level, literacy, decrease access to med. care, senior care, r ehab)? @ -No Was there de-escalation of care discussed even if they declined (Discuss DNR or withdrawal of care, Hospice)? DNR status @ -No What co-morbidities impacted this encounter? (DM, HTN, Smoking, COPD, CAD, Cancer, CVA, ARF, Chemo, Hep., AIDS, mental health diagnosis, sleep apnea, morbid obesity)? @ -COPD, hypertension Was patient admitted / discharged? Hospital course, mention meds given and route, prescriptions, significant lab abnormalities, going to OR and other pertinent info. @ -The patient was seen and evaluated in emergency department. Physical exam, the patient was skipped neck and tripoding speaking in 1-2 word sentences. The patient was given a DuoNeb by EMS however the patient was diaphoretic and short of breath. Vital signs show tachycardia and hypoxia. The patient was initially placed on BiPAP and was given a breathing treatment of albuterol and ipratropium as well as Decadron and magnesium. Chest x-ray did demonstrate pneumonia and due to the patient's recent admission, the patient will be treated for healthcare associated pneumonia with vancomycin and cefepime. Due to the acute hypoxic respiratory failure on BiPAP secondary to his COPD exacerbation in the setting of HCAP, the patient will be admitted for further workup and evaluation. The patient's primary care physician was being covered by Gina Sol who accepted the admission at [id number]. The patient was agreeable to this and was admitted to the stepdown unit in stable condition. Undiagnosed new problem with uncertain prognosis? @ -No Drug Therapy requiring intensive monitoring for toxicity (Heparin, Nitro, Insulin, Cardizem)? @ -No Were any procedures done? @ -No Diagnosis/symptom? @ -Acute hypoxic respiratory failure secondary to COPD exacerbation, HCAP Acute, or Chronic, or Acute on Chronic? @ -Acute Uncomplicated (without systemic symptoms) or Complicated (systemic symptoms)? @ -Complicated Side effects of treatment? @ -No Exacerbation, Progression, or Severe Exacerbation? @ -Severe exacerbation Poses a threat to life or bodily function? How? (Chest pain, [place], [place], pneumonia, PE, COPD, DKA, ARF, appy, cholecystitis, CVA, Diverticulitis, Homicidal, Suicidal, threat to staff... and all critical care pts) @ -Yes, continued hypoxic respiratory failure and HCAP can lead to end organ damage and possible . - Lab Data Result diagrams: 07/12/22 23:31 07/12/22 23:59 Lab Results 07/12/22 07/12/22 07/12/22 Range/Units 23:31 23:31 23:31 WBC 12.6 H (3.8-10.6) k/uL RBC 4.51 (3.80-5.40) m/uL Hgb 13.6 (11.4-16.0) gm/dL Hct 41.9 (34.0-46.0) % MCV 93.1 (80.0-100.0) fL MCH 30.2 (25.0-35.0) pg MCHC 32.4 (31.0-37.0) g/dL RDW 12.9 (11.5-15.5) % Plt Count 238 (150-450) k/uL MPV 7.4 Neutrophils % 72 % Lymphocytes % 17 % Monocytes % 6 % Eosinophils % 3 % Basophils % 1 % Neutrophils # 9.0 H (1.3-7.7) k/uL Lymphocytes # 2.1 (1.0-4.8) k/uL Monocytes # 0.8 (0-1.0) k/uL Eosinophils # 0.4 (0-0.7) k/uL Basophils # 0.1 (0-0.2) k/uL PT 9.7 (9.0-12.0) sec INR 0.9 (<1.2) APTT 25.6 (22.0-30.0) sec Sodium Cancelled Potassium Cancelled Chloride Cancelled Carbon Dioxide Cancelled Anion Gap Cancelled BUN Cancelled Creatinine Cancelled Est GFR (CKD-EPI)AfAm Cancelled Est GFR (CKD-EPI)NonAf Cancelled Glucose Cancelled Calcium Cancelled Magnesium Cancelled Total Bilirubin Cancelled AST Cancelled ALT Cancelled Alkaline Phosphatase Cancelled Troponin I (0.000-0.034) ng/mL NT-Pro-B Natriuret Pep pg/mL Total Protein Cancelled Albumin Cancelled Lipase Cancelled Influenza Type A (PCR) (Not Detectd) Influenza Type B (PCR) (Not Detectd) RSV (PCR) (Not Detectd) SARS-CoV-2 (PCR) (Not Detectd) 07/12/22 07/12/22 07/12/22 Range/Units 23:31 23:31 23:59 WBC (3.8-10.6) k/uL RBC (3.80-5.40) m/uL Hgb (11.4-16.0) gm/dL Hct (34.0-46.0) % MCV (80.0-100.0) fL MCH (25.0-35.0) pg MCHC (31.0-37.0) g/dL RDW (11.5-15.5) % Plt Count (150-450) k/uL MPV Neutrophils % % Lymphocytes % % Monocytes % % Eosinophils % % Basophils % % Neutrophils # (1.3-7.7) k/uL Lymphocytes # (1.0-4.8) k/uL Monocytes # (0-1.0) k/uL Eosinophils # (0-0.7) k/uL Basophils # (0-0.2) k/uL PT (9.0-12.0) sec INR (<1.2) APTT (22.0-30.0) sec Sodium 133 L Potassium 4.9 Chloride 91 L Carbon Dioxide 44 H* Anion Gap -2 BUN 15 Creatinine 0.39 L Est GFR (CKD-EPI)AfAm >90 Est GFR (CKD-EPI)NonAf >90 Glucose 142 H Calcium 8.8 Magnesium 2.1 Total Bilirubin 0.5 AST 24 ALT 13 Alkaline Phosphatase 69 Troponin I (0.000-0.034) ng/mL NT-Pro-B Natriuret Pep 1540 pg/mL Total Protein 6.6 Albumin 3.6 Lipase 38 Influenza Type A (PCR) Not Detected (Not Detectd) Influenza Type B (PCR) Not Detected (Not Detectd) RSV (PCR) Not Detected (Not Detectd) SARS-CoV-2 (PCR) Not Detected (Not Detectd) 07/12/22 Range/Units 23:59 WBC (3.8-10.6) k/uL RBC (3.80-5.40) m/uL Hgb (11.4-16.0) gm/dL Hct (34.0-46.0) % MCV (80.0-100.0) fL MCH (25.0-35.0) pg MCHC (31.0-37.0) g/dL RDW (11.5-15.5) % Plt Count (150-450) k/uL MPV Neutrophils % % Lymphocytes % % Monocytes % % Eosinophils % % Basophils % % Neutrophils # (1.3-7.7) k/uL Lymphocytes # (1.0-4.8) k/uL Monocytes # (0-1.0) k/uL Eosinophils # (0-0.7) k/uL Basophils # (0-0.2) k/uL PT (9.0-12.0) sec INR (<1.2) APTT (22.0-30.0) sec Sodium Potassium Chloride Carbon Dioxide Anion Gap BUN Creatinine Est GFR (CKD-EPI)AfAm Est GFR (CKD-EPI)NonAf Glucose Calcium Magnesium Total Bilirubin AST ALT Alkaline Phosphatase Troponin I 0.027 (0.000-0.034) ng/mL NT-Pro-B Natriuret Pep pg/mL Total Protein Albumin Lipase Influenza Type A (PCR) (Not Detectd) Influenza Type B (PCR) (Not Detectd) RSV (PCR) (Not Detectd) SARS-CoV-2 (PCR) (Not Detectd) Critical Care Time Critical Care Time: Yes Total Critical Care Time: 36 Disposition Clinical Impression: COPD (chronic obstructive pulmonary disease), HCAP (healthcare-associated pneumonia), Respiratory failure with hypoxia Disposition: ADMITTED IP TO THIS HOSP Condition: Stable Is patient prescribed a controlled substance at d/c from ED?: No Time of Disposition: 23:00 Decision to Admit Reason: Admit from EC Decision Date: 07/12/22 Decision Time: 23:00
[2022-07-13] MEDS ORDERED: NALOXONE 0.4 MG/ML 1 ML VIAL IV PRN (00:31)
[2022-07-13 00:32] LABS: Anion Gap -2 mmol/L
[2022-07-13 00:33] LABS: AST 24 U/L (14-36); Alkaline Phosphatase 69 U/L (38-126); Carbon Dioxide 44 mmol/L (22-30); Magnesium 2.1 mg/dL (1.6-2.3); Potassium 4.9 mmol/L (3.5-5.1)
[2022-07-13] MEDS: MAGNESIUM SULFATE-D5W PMX 1 GM in DEXTROSE/WATER 1 100ML.BAG IVPB SCH (00:39)
[2022-07-13] MEDS ORDERED: LORazepam 2 MG/ML INJ IV ONE (03:51)
[2022-07-13] MEDS ORDERED: DEXTROSE 50% SYRINGE 50 ML IVP PRN ×2 (07:14)
--- NOTE | 2022-07-13 08:01 | P.HPIM ---
History of Present Illness This is a pleasant 61 years old female past medical history of Coronary Artery Disease, COPD,, Chronic hypercapnic respiratory failure, home oxygen at 4L/[place] ATC, tracheobronchitis, aortic valve stenosis, chronic low back pain, DJD Presents because of shortness of breath, and presentation patient was referred to breath. She had difficulty talking because of dyspnea information was limited. This morning she was sitting in the room sleeping BiPAP machine and Mastisol, she was sleeping, was at bedside. Patient could not provide information and it was obtained from the , looks like patient also was educated last night and she received Ativan 0.5 mg 1 intravenously. As per patient complains mainly from shortness of breath for about one day duration, yesterday she was confused to her symptoms only was of one-day duration ,the notice her staring in space, asked her if she is okay and she said yes but she did not look okay for him so he Called EMS, as per was noticed also she was coughing but no phlegm and she did not comp lains from chest pain, also patient was not dizzy and that showed not complaining from syncope or presyncope No more information available at this time. As per patient quit smoking more than 5 years ago, no alcohol or illicit drugs. His on 5 L oxygen via nasal cannula at home , She is currently on BiPAP for saturating 94 and pressure of 10/5 and FiO2 of 50%. Patient is afebrile. mild leukocytosis of 12.6, mild neutrophilia, inr 0.9, sodium 133, carbon dioxide 44, creatinine 0.3. liver enzymes not elevated. troponin is negative. probnp [id number] Viruses up and dissected including influenza, S/P and coronavirus EKG showing normal sinus rhythm at 88, with ST depression in the III and aVF, with mild ST segment elevation less than 1 mm and aVL, this looks similar to her EKG from 04/11/2022 Chest x-ray showing cardiomegaly with clear lungs, hyperinflated chest and right lower lobe consolidation suspicious for pneumonia by route carrier also. Patient is on cefepime and IV vancomycin on admission Review of Systems ROS unobtainable: due to mental status Past Medical History Past Medical History: Coronary Artery Disease (CAD), Chest Pain / Angina, COPD, Respiratory Disorder Additional Past Medical History / Comment(s): Chronic hypercapnic respiratory failure, home oxygen at 4L/[place] ATC, tracheobronchitis, aortic valve stenosis, chronic low back pain, DJD History of Any Multi-Drug Resistant Organisms: None Reported Past Surgical History: Breast Surgery, Tubal Ligation Additional Past Surgical History / Comment(s): Bilateral breast reductions, bilateral cataract removals. Past Anesthesia/Blood Transfusion Reactions: No Reported Reaction Past Psychological History: Anxiety, Depression Additional Psychological History / Comment(s): Pt resides with her spouse. She has home oxygen and a nebulizer. She chooses not to drive, her spouse drives. She had [facility] after last hospitalization but no longer coming to [facility]. Smoking Status: Former smoker Past Alcohol Use History: None Reported Additional Past Alcohol Use History / Comment(s): Pt started smoking as a teen and quit about 5 years ago. She was a 2 ppd smoker. Past Drug Use History: None Reported - Past Family History Father History Unknown: Yes Mother Family Medical History: Congestive Heart Failure (CHF), Diabetes Mellitus Medications and Allergies Home Medications Medication Instructions Recorded Confirmed Type Albuterol Inhaler [Ventolin Hfa 2 puff INHALATION RT-Q4H PRN 04/09/22 07/13/22 History Inhaler] Atorvastatin [Lipitor] 40 mg PO HS 04/09/22 07/13/22 History Meloxicam [Mobic] 7.5 mg PO BID 04/09/22 07/13/22 History Tiotropium [place] [Spiriva 1 cap INHALATION RT-DAILY 04/09/22 07/13/22 History Handihaler] Aspirin 81 mg PO DAILY 30 Days #30 tab 04/12/22 07/13/22 Rx Metoprolol Tartrate [Lopressor] 25 mg PO BID 30 Days #60 tab 04/12/22 07/13/22 Rx Sertraline [Zoloft] 100 mg PO DAILY 06/15/22 07/13/22 History lisinopriL [Zestril] 30 mg PO DAILY 06/15/22 07/13/22 History Benzonatate [Tessalon Per[place]] 100 mg PO TID 07/13/22 07/13/22 History Budesonide/Formoterol Fumarate 2 puff INHALATION RT-BID 07/13/22 07/13/22 History [Symbicort 160-4.5 Mcg Inhaler] Allergies Allergy/AdvReac Type Severity Reaction Status Date / Time No Known Allergies Allergy Verified 06/15/22 07:59 Physical Exam Vitals: Vital Signs Temp Pulse Pulse Resp BP BP Pulse Ox 07/13/22 04:10 07/13/22 04:00 69 30 H 152/88 94 L 07/13/22 02:00 76 25 H 07/13/22 01:55 98.7 F 76 25 H 168/89 92 L 07/13/22 01:52 70 07/13/22 01:20 73 16 142/79 98 07/13/22 01:10 79 129/97 96 07/13/22 01:00 96 07/13/22 00:50 98 07/13/22 00:40 80 141/88 98 07/13/22 00:30 81 97 07/13/22 00:20 97 07/13/22 00:16 112/65 98 07/13/22 00:10 81 112/65 98 07/13/22 00:00 168/115 99 07/12/22 23:50 84 168/115 98 07/12/22 23:40 87 168/115 98 07/12/22 23:34 82 07/12/22 23:30 177/102 98 07/12/22 23:26 86 07/12/22 23:20 175/115 99 07/12/22 23:19 150/121 97 07/12/22 23:18 07/12/22 23:14 97.4 F L 150/121 07/12/22 23:08 107 H 33 H 99 FiO2 07/13/22 04:10 50 07/13/22 04:00 07/13/22 02:00 07/13/22 01:55 50 07/13/22 01:52 07/13/22 01:20 07/13/22 01:10 07/13/22 01:00 07/13/22 00:50 07/13/22 00:40 07/13/22 00:30 07/13/22 00:20 07/13/22 00:16 07/13/22 00:10 07/13/22 00:00 07/12/22 23:50 07/12/22 23:40 07/12/22 23:34 07/12/22 23:30 07/12/22 23:26 07/12/22 23:20 07/12/22 23:19 07/12/22 23:18 60 07/12/22 23:14 07/12/22 23:08 Intake and Output 07/12/22 07/13/22 07/13/22 22:59 06:59 14:59 Other: Voiding Method Bedside Commode # Voids 2 Weight 76.657 kg -GENERAL: The patient is sleepy, not in distress, cannot provide information and she is on BiPAP. Obese . HEENT: Pupils are round and equally reacting to light. EOMI. No scleral icterus. No conjunctival pallor. Normocephalic, atraumatic. No pharyngeal erythema. No thyromegaly. CARDIOVASCULAR: S1 and S2 present. No murmurs, rubs, or gallops. -PULMONARY: Chest is clear to auscultation, no crackles Limited air entry bilaterally. With scattered wheezing ABDOMEN: Soft, nontender, nondistended, normoactive bowel sounds. No palpable organomegaly. MUSCULOSKELETAL: No joint swelling or deformity. EXTREMITIES: No cyanosis, clubbing, or pedal edema. NEUROLOGICAL: Gross neurological examination did not reveal any focal deficits. SKIN: No rashes. no petechiae. Results CBC & Chem 7: 07/12/22 23:31 07/12/22 23:59 Labs: Abnormal Lab Results - Last 24 Hours (Table) 07/12/22 07/12/22 Range/Units 23:31 23:59 WBC 12.6 H (3.8-10.6) k/uL Neutrophils # 9.0 H (1.3-7.7) k/uL Sodium 133 L (137-145) mmol/L Chloride 91 L (98-107) mmol/L Carbon Dioxide 44 H* (22-30) mmol/L Creatinine 0.39 L (0.52-1.04) mg/dL Glucose 142 H (74-99) mg/dL Thrombosis Risk Factor Assmnt - Choose All That Apply Any of the Below Risk Factors Present?: Yes Each Factor Represents 1 point: Abnormal pulmonary function (COPD), Age 41-60 years, Obesity (BMI >25), Serious lung disease incl. pneumonia (< 1month), Swollen legs (current) Other Risk Factors: No Other congenital or acquired thrombophilia - If yes, enter type in comment: No Thrombosis Risk Factor Assessment Total Risk Factor Score: 5 Thrombosis Risk Factor Assessment Level: High Risk Assessment and Plan Assessment: Right lower lobe pneumonia, hospital-acquired pneumonia suspected COPD acute exacerbation Acute and chronic hypoxic respiratory failure Altered mental status secondary to toxic and Metabolic encephalopathy secondary to above History of coronary artery disease History of severe aortic stenosis disease Chronic low back pain with degenerative disc disease Recent history of influenza tracheobronchitis, about 4 months ago Plan: Continue with the provided oxygen as needed, currently she is on BiPAP Continue with broad-spectrum antibiotics, currently she is an operative vancomycin, we will resume her cefepime with close monitoring of kidney function Continue with his steroid,. Start intravenous Solu-Medrol 60 mg Continue bronchodilator Pulmonary team consult Labs and medication were reviewed.. Continue same treatment. Continue with symptomatic treatment. Resume home medication. Monitor labs and vitals. DVT and GI prophylaxis. Further recommendations as per clinical course of the patient DVT prophylaxis: Subcutaneous heparin GI Prophylaxis: Pepcid PT/OT: Deferred Prognosis is guarded
[2022-07-13] MEDS: INSULIN ASPART (NovoLOG) 100 UNIT/ML VIAL SQ SCH ×4 (08:12→21:46)
[2022-07-13] MEDS ORDERED: LORazepam 2 MG/ML INJ IV PRN (08:19)
[2022-07-13] MEDS ORDERED: BENZONATATE 100 MG CAP PO PRN (08:31)
[2022-07-13] MEDS ORDERED: ALBUTEROL NEBULIZED 2.5 MG/3 ML INHALATION PRN (08:31)
[2022-07-13] MEDS ORDERED: hydrALAZINE HCL 20 MG/ML 1 ML VIAL IVP PRN (08:33)
[2022-07-13] MEDS ORDERED: VANCOMYCIN 1,500 MG in SODIUM CHLORIDE 0.9% 500 ML 500 ML IVPB SCH ×2 (09:00→21:00)
[2022-07-13] MEDS ORDERED: FAMOTIDINE 20 MG/2 ML VIAL IV SCH (09:00)
[2022-07-13] MEDS ORDERED: CEFEPIME 2 GM in SODIUM CHLORIDE 0.9% 100 ML IVPB SCH (09:00)
[2022-07-13] MEDS: ASPIRIN 81 MG PO SCH (09:02)
[2022-07-13] MEDS: lisinopriL 10 MG TAB PO SCH (09:02)
[2022-07-13] MEDS: METOPROLOL TARTRATE 25 MG TAB PO SCH ×2 (09:03→19:57)
[2022-07-13] MEDS: SERTRALINE 100 MG TAB PO SCH (09:03)
[2022-07-13] MEDS: HEPARIN SODIUM,PORCINE/PF 5,000 UNIT/0.5 ML SYRINGE SQ SCH ×2 (09:03→19:57)
[2022-07-13] MEDS: ALPRAZolam 0.5 MG TAB PO PRN (09:04)
[2022-07-13] MEDS ORDERED: IPRATROPIUM-ALBUTEROL 3 ML NEB INHALATION PRN (10:12)
[2022-07-13] MEDS: IPRATROPIUM-ALBUTEROL 3 ML NEB INHALATION SCH ×3 (11:39→20:05)
[2022-07-13] MEDS: methylPREDNISolone SOD SUCCI 125 MG/2 ML VIAL IV SCH ×2 (12:06→17:04)
--- NOTE | 2022-07-13 13:54 | P.CNPUL ---
History of Present Illness Consult date: 07/13/22 Requesting physician: Seferino Crawford Reason for consult: dyspnea, cough, COPD, hypoxemia, pneumonia, abnormal CXR/CT Chief complaint: Shortness of breath. History of present illness: Pulmonary consult dated 07/13/2022. 61-year-old female, who looks much older than her stated age, who has severe end stage COPD, with an FEV1 that's about 30% of predicted, is seen in the emergency room on July 12, with severe shortness of breath. The patient was apparently evaluated there, and admitted to the hospital. We are asked to see her in consultation. Currently, she is on BiPAP with settings of 10/5 and 60%. She's not receiving any IV fluids. Apparently in the emergency room, she was thinking in single words and cannot complete a sentence, and also was tripoding. She not been feeling well for a couple days prior to admission, and was getting progressively worse, so decided to come into the emergency room to be seen. In addition to COPD, she has a history of CAD, chest pain, respiratory failure, chronic hypoxemic respiratory failure, tracheobronchitis, aortic valve stenosis, chronic low back pain, DJD, and bilateral cataracts. She apparently does not smoke currently. She smoked heavily in the past. It should also be noted that the patient had her last PFT in 2016, and I suspect current PFTs which show much worse lung function. I saw her last in the office in April of this year. White count 12.6, with a normal hemoglobin, hematocrit, and platelet count. Sodium 133, potassium 4.9, chlorides 91, CO2 44, BUN 15, and creatinine 0.39. Chest x-ray revealed a pneumonic process in the right lower lobe. Review of Systems REVIEW OF SYSTEMS: CONSTITUTIONAL: [Negative.] NEUROLOGIC: [ Negative.] HEENT: [ Negative.] CARDIAC: [Negative.] PULMONARY: Shortness of breath, cough, wheezing, chest tightness. GI: [Negative.] : [Negative.] RHEUMATOLOGIC: [ Negative.] IMMUNOLOGIC: [ Negative.] ENDOCRINE: [Negative. ] DERMATOLOGIC: [Negative.] Past Medical History Past Medical History: Coronary Artery Disease (CAD), Chest Pain / Angina, COPD, Respiratory Disorder Additional Past Medical History / Comment(s): Chronic hypercapnic respiratory failure, home oxygen at 4L/NC ATC, tracheobronchitis, aortic valve stenosis, chronic low back pain, DJD History of Any Multi-Drug Resistant Organisms: None Reported Past Surgical History: Breast Surgery, Tubal Ligation Additional Past Surgical History / Comment(s): Bilateral breast reductions, bilateral cataract removals. Past Anesthesia/Blood Transfusion Reactions: No Reported Reaction Past Psychological History: Anxiety, Depression Additional Psychological History / Comment(s): Pt resides with her spouse. She has home oxygen and a nebulizer. She chooses not to drive, her spouse drives. She had [facility] after last hospitalization but no longer coming to home. Smoking Status: Former smoker Past Alcohol Use History: None Reported Additional Past Alcohol Use History / Comment(s): Pt started smoking as a teen and quit about 5 years ago. She was a 2 ppd smoker. Past Drug Use History: None Reported - Past Family History Father History Unknown: Yes Mother Family Medical History: Congestive Heart Failure (CHF), Diabetes Mellitus Medications and Allergies Home Medications Medication Instructions Recorded Confirmed Type Albuterol Inhaler [Ventolin Hfa 2 puff INHALATION RT-Q4H PRN 04/09/22 07/13/22 History Inhaler] Atorvastatin [Lipitor] 40 mg PO HS 04/09/22 07/13/22 History Meloxicam [Mobic] 7.5 mg PO BID 04/09/22 07/13/22 History Tiotropium [place] [Spiriva 1 cap INHALATION RT-DAILY 04/09/22 07/13/22 History Handihaler] Aspirin 81 mg PO DAILY 30 Days #30 tab 04/12/22 07/13/22 Rx Metoprolol Tartrate [Lopressor] 25 mg PO BID 30 Days #60 tab 04/12/22 07/13/22 Rx Sertraline [Zoloft] 100 mg PO DAILY 06/15/22 07/13/22 History lisinopriL [Zestril] 30 mg PO DAILY 06/15/22 07/13/22 History Benzonatate [Tessalon Perles] 100 mg PO TID 07/13/22 07/13/22 History Budesonide/Formoterol Fumarate 2 puff INHALATION RT-BID 07/13/22 07/13/22 History [Symbicort 160-4.5 Mcg Inhaler] Allergies Allergy/AdvReac Type Severity Reaction Status Date / Time No Known Allergies Allergy Verified 06/15/22 07:59 Physical Exam Osteopathic Statement: *. No significant issues noted on an osteopathic structural exam other than those noted in the History and Physical/Consult. Vitals: Vital Signs Temp Pulse Pulse Resp BP BP Pulse Ox 07/13/22 12:00 72 20 176/102 97 07/13/22 11:53 97 07/13/22 11:46 07/13/22 11:43 97 07/13/22 08:24 98.4 F 75 24 185/100 97 07/13/22 08:10 07/13/22 08:00 75 24 07/13/22 04:10 07/13/22 04:00 69 30 H 152/88 94 L 07/13/22 02:00 76 25 H 07/13/22 01:55 98.7 F 76 25 H 168/89 92 L 07/13/22 01:52 70 07/13/22 01:20 73 16 142/79 98 07/13/22 01:10 79 129/97 96 07/13/22 01:00 96 07/13/22 00:50 98 07/13/22 00:40 80 141/88 98 07/13/22 00:30 81 97 07/13/22 00:20 97 07/13/22 00:16 112/65 98 07/13/22 00:10 81 112/65 98 07/13/22 00:00 168/115 99 07/12/22 23:50 84 168/115 98 07/12/22 23:40 87 168/115 98 07/12/22 23:34 82 07/12/22 23:30 177/102 98 07/12/22 23:26 86 07/12/22 23:20 175/115 99 07/12/22 23:19 150/121 97 07/12/22 23:18 07/12/22 23:14 97.4 F L 150/121 07/12/22 23:08 107 H 33 H 99 FiO2 07/13/22 12:00 60 07/13/22 11:53 07/13/22 11:46 60 07/13/22 11:43 07/13/22 08:24 60 07/13/22 08:10 60 07/13/22 08:00 07/13/22 04:10 50 07/13/22 04:00 07/13/22 02:00 07/13/22 01:55 50 07/13/22 01:52 07/13/22 01:20 07/13/22 01:10 07/13/22 01:00 07/13/22 00:50 07/13/22 00:40 07/13/22 00:30 07/13/22 00:20 07/13/22 00:16 07/13/22 00:10 07/13/22 00:00 07/12/22 23:50 07/12/22 23:40 07/12/22 23:34 07/12/22 23:30 07/12/22 23:26 07/12/22 23:20 07/12/22 23:19 07/12/22 23:18 60 07/12/22 23:14 07/12/22 23:08 Intake and Output 07/12/22 07/13/22 07/13/22 22:59 06:59 14:59 Other: Voiding Method Bedside Commode Bedside Commode # Voids 2 Weight 76.657 kg Mild tachypnea, oriented 3, currently on BiPAP. HEENT examination is grossly unremarkable. Neck supple. Full range of motion. No adenopathy thyromegaly or neck vein distention. Cardiovascular examination reveals regular rhythm rate. S1-S2 normal. No S3 or S4. No discernible murmur noted. Heart rate 72 bpm. Heart sounds are distant. Lungs reveal coarse bilateral inspiratory and expiratory rhonchi and wheezes. Breath sounds are diminished throughout. No crackles. Saturations are in the mid to high 90s on BiPAP. Abdomen soft bowel sounds are heard. No masses or tenderness. Extremities are intact. No cyanosis clubbing or edema. Skin is without rash or lesion. Neurologic examination is brief but nonfocal. Results - Laboratory Findings CBC and BMP: 07/12/22 23:31 07/12/22 23:59 PT/INR, D-dimer PT 9.7 sec (9.0-12.0) 07/12/22 23:31 INR 0.9 (<1.2) 07/12/22 23:31 Abnormal lab findings: Abnormal Labs 07/12/22 07/12/22 23:31 23:59 WBC 12.6 H Neutrophils # 9.0 H Sodium 133 L Chloride 91 L Carbon Dioxide 44 H* Creatinine 0.39 L Glucose 142 H - Diagnostic Findings Chest x-ray: image reviewed Assessment and Plan Assessment: Acute on chronic hypoxemic and hypercapnic respiratory failure, secondary to severe/end stage COPD, with an FEV1 that is about 30% of predicted. Chronic hypoxemic respiratory failure. Prior history of heavy tobacco use. History of hyperlipidemia. History of hypertension. History of CAD. History of angina pectoris. History of aortic stenosis. Chronic low back pain. History of anxiety/depression. Plan: Plan dated 07/13/2022. The patient is given albuterol sulfate and ipratropium bromide breathing treatments. In addition, she gets Pulmicort 1 mg, mixed with formoterol, 20 g, twice a day. Also, the patient will be given Solu-Medrol 60 mg every 6 hours. The patient continues on BiPAP therapy. In addition, she was placed on azithro mycin 500 mg a day for 3 days, and Rocephin, 2 g, every 24 hours. Her chest x- ray clearly shows a pneumonia in the right lung. Prognosis is guarded. We will continue to follow and make recommendations along the way. Time with Patient: Greater than 30
[2022-07-13 16:37] LABS: Glucose,Whole Blood 113 mg/dL (70-110)
[2022-07-13] MEDS: ATORVASTATIN 40 MG TAB PO SCH (19:57)
[2022-07-13] MEDS: FAMOTIDINE 20 MG TAB PO SCH (19:57)
[2022-07-13] MEDS ORDERED: FORMOTEROL FUMARATE 20 MCG/2 ML NEBU INHALATION SCH (20:00)
[2022-07-13] MEDS ORDERED: BUDESONIDE 1 MG/2 ML NEBU INHALATION SCH (20:00)
[2022-07-13] MEDS ORDERED: SYMBICORT 160-4.5 MCG INHALER INHALATION SCH (20:00)
[2022-07-13] MEDS: BUDESONIDE 1 MG/2 ML NEBU INHALATION SCH (20:05)
[2022-07-13] MEDS: FORMOTEROL FUMARATE 20 MCG/2 ML NEBU INHALATION SCH (20:05)
[2022-07-13 20:16] LABS: Glucose,Whole Blood 152 mg/dL (70-110)
[2022-07-14] MEDS: methylPREDNISolone SOD SUCCI 125 MG/2 ML VIAL IV SCH ×5 (00:28→23:56)
[2022-07-14 06:26] LABS: Glucose,Whole Blood 121 mg/dL (70-110)
[2022-07-14] MEDS: INSULIN ASPART (NovoLOG) 100 UNIT/ML VIAL SQ SCH ×4 (06:37→21:05)
[2022-07-14] MEDS ORDERED: ACETAMINOPHEN TAB 325 MG TAB PO PRN (08:35)
[2022-07-14] MEDS: METOPROLOL TARTRATE 25 MG TAB PO SCH ×2 (08:40→21:08)
[2022-07-14] MEDS: AZITHROMYCIN 500 MG TAB PO SCH (08:40)
[2022-07-14] MEDS: FAMOTIDINE 20 MG TAB PO SCH ×2 (08:40→21:08)
[2022-07-14] MEDS: ASPIRIN 81 MG PO SCH (08:40)
[2022-07-14] MEDS: HEPARIN SODIUM,PORCINE/PF 5,000 UNIT/0.5 ML SYRINGE SQ SCH ×2 (08:40→21:07)
[2022-07-14] MEDS: SERTRALINE 100 MG TAB PO SCH (08:40)
[2022-07-14] MEDS: lisinopriL 10 MG TAB PO SCH (08:40)
[2022-07-14] MEDS: FORMOTEROL FUMARATE 20 MCG/2 ML NEBU INHALATION SCH ×2 (08:52→20:32)
[2022-07-14] MEDS: IPRATROPIUM-ALBUTEROL 3 ML NEB INHALATION SCH ×4 (08:52→20:32)
[2022-07-14] MEDS: BUDESONIDE 1 MG/2 ML NEBU INHALATION SCH ×2 (08:52→20:32)
[2022-07-14] MEDS ORDERED: IPRATROPIUM 0.5 MG/2.5 ML NEBU INHALATION SCH (09:00)
--- NOTE | 2022-07-14 11:24 | P.PN ---
Subjective This is a pleasant 61 years old female past medical history of Coronary Artery Disease, COPD,, Chronic hypercapnic respiratory failure, home oxygen at 4L/[place] ATC, tracheobronchitis, aortic valve stenosis, chronic low back pain, DJD Presents because of shortness of breath, and presentation patient was referred to breath. She had difficulty talking because of dyspnea information was limited. This morning she was sitting in the room sleeping BiPAP machine and Mastisol, she was sleeping, was at bedside. Patient could not provide information and it was obtained from the , looks like patient also was educated last night and she received Ativan 0.5 mg 1 intravenously. As per patient complains mainly from shortness of breath for about one day duration, yesterday she was confused to her symptoms only was of one-day duration ,the notice her staring in space, asked her if she is okay and she said yes but she did not look okay for him so he Called EMS, as per was noticed also she was coughing but no phlegm and she did not complains from chest pain, also patient was not dizzy and that showed not complaining from syncope or presyncope No more information available at this time. As per patient quit smoking more than 5 years ago, no alcohol or illicit drugs. His on 5 L oxygen via nasal cannula at home , She is currently on BiPAP for saturating 94 and pressure of 10/5 and FiO2 of 50%. Patient is afebrile. mild leukocytosis of 12.6, mild neutrophilia, inr 0.9, sodium 133, carbon dioxide 44, creatinine 0.3. liver enzymes not elevated. troponin is negative. 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 Patient is on cefepime and IV vancomycin on admission 07/14/2022 Patient is awake and alert today at baseline mentation. Her breathing also significantly improved, she is currently on 8 L per oxygen and saturating 97% Also with no significant tachypnea or dyspnea, no coughing, no chest pain. No other complaints as per patient. Vitas looks stable. Patient is afebrile. She remains on ceftriaxone, Zithromax and symmetrical 60 milligrams Discussed with bed side nurse to try to wean her oxygen down to her baseline of 4-5 L/m with pulmonary team following closely. Objective - Vital Signs Vital signs: Vital Signs Temp 97.9 F 07/14/22 08:00 Pulse 73 07/14/22 08:59 Resp 15 07/14/22 08:59 BP 163/99 07/14/22 08:00 Pulse Ox 97 07/14/22 09:00 FiO2 60 07/14/22 04:00 Intake & Output 07/13/22 07/14/22 07/14/22 18:59 06:59 18:59 Intake Total 0 Output Total 100 450 Balance -100 -450 Intake: Oral 0 Output: Urine 100 450 Other: Voiding Method Bedside Commode Bedside Commode Bedside Commode # Voids 2 2 - Exam GENERAL: The patient is alert and oriented x3, not in any acute distress. Well developed, well nourished. HEENT: Pupils are round and equally reacting to light. EOMI. No scleral icterus. No conjunctival pallor. Normocephalic, atraumatic. No pharyngeal erythema. No thyromegaly. CARDIOVASCULAR: S1 and S2 present. No murmurs, rubs, or gallops. -PULMONARY: Chest is clear to auscultation, Bilateral scattered wheezing . no crackles. ABDOMEN: Soft, nontender, nondistended, normoactive bowel sounds. No palpable organomegaly. MUSCULOSKELETAL: No joint swelling or deformity. EXTREMITIES: No cyanosis, clubbing, or pedal edema. NEUROLOGICAL: Gross neurological examination did not reveal any focal deficits. SKIN: No rashes. no petechiae. - Labs CBC & Chem 7: 07/12/22 23:31 07/12/22 23:59 Labs: Abnormal Lab Results - Last 24 Hours (Table) 07/13/22 07/13/22 07/14/22 Range/Units 16:36 20:15 06:25 POC Glucose (mg/dL) 113 H 152 H 121 H (70-110) mg/dL Assessment and Plan Assessment: Right lower lobe pneumonia, hospital-acquired pneumonia suspected COPD acute exacerbation Acute and chronic hypoxic respiratory failure Altered mental status secondary to toxic and Metabolic encephalopathy secondary to above History of coronary artery disease History of severe aortic stenosis disease Chronic low back pain with degenerative disc disease Recent history of influenza tracheobronchitis, about 4 months ago Plan: Continue with the provided oxygen as needed, currently she is brought oxygen requirement today, we'll try to wean it down Continue with broad-spectrum antibiotics, currently she is ceftriaxone and Zithromax Continue with his steroid,. continue withavenous Solu-Medrol 60 mg Continue bronchodilator Pulmonary team consult Labs and medication were reviewed.. Continue same treatment. Continue with symptomatic treatment. Resume home medication. Monitor labs and vitals. DVT and GI prophylaxis. Further recommendations as per clinical course of the patient DVT prophylaxis: Subcutaneous heparin GI Prophylaxis: Pepcid PT/OT: Deferred Prognosis is guarded
[2022-07-14 11:49] LABS: Glucose,Whole Blood 188 mg/dL (70-110)
--- NOTE | 2022-07-14 13:40 | P.PN ---
Subjective Progress Note Date: 07/14/22 Principal diagnosis: Shortness of breath. Pulmonary consult dated 07/13/2022. 61-year-old female, who looks much older than her stated age, who has severe end stage COPD, with an FEV1 that's about 30% of predicted, is seen in the emergency room on July 12, with severe shortness of breath. The patient was apparently evaluated there, and admitted to the hospital. We are asked to see her in consultation. Currently, she is on BiPAP with settings of 10/5 and 60%. She's not receiving any IV fluids. Apparently in the emergency room, she was thinking in single words and cannot complete a sentence, and also was tripoding. She not been feeling well for a couple days prior to admission, and was getting progressively worse, so decided to come into the emergency room to be seen. In addition to COPD, she has a history of CAD, chest pain, respiratory failure, chronic hypoxemic respiratory failure, tracheobronchitis, aortic valve stenosis, chronic low back pain, DJD, and bilateral cataracts. She apparently does not smoke currently. She smoked heavily in the past. It should also be noted that the patient had her last PFT in 2016, and I suspect current PFTs which show much worse lung function. I saw her last in the office in April of this year. White count 12.6, with a normal hemoglobin, hematocrit, and platelet count. Sodium 133, potassium 4.9, chlorides 91, CO2 44, BUN 15, and creatinine 0.39. Chest x-ray revealed a pneumonic process in the right lower lobe. Progress note dated 07/14/2022. This is a 61-year-old female with history of severe COPD. FEV1 is about 30-33% of predicted. The patient was seen yesterday in consultation. Currently, she i s on 8 L high flow nasal cannula. She's not receiving any IV fluids. She does spend time on BiPAP, and did so last night, with settings of 10/5 and 60%. She does feel clinically better today. Labs today include a glucose of 188. Objective - Vital Signs Vital signs: Vital Signs Temp 98.5 F 07/14/22 12:00 Pulse 71 07/14/22 12:40 Resp 15 07/14/22 12:40 BP 147/78 07/14/22 12:00 Pulse Ox 96 07/14/22 12:00 FiO2 60 07/14/22 04:00 Intake & Output 07/13/22 07/14/22 07/14/22 18:59 06:59 18:59 Intake Total 0 Output Total 100 450 Balance -100 -450 Intake: Oral 0 Output: Urine 100 450 Other: Voiding Method Bedside Commode Bedside Commode Bedside Commode # Voids 2 2 - Exam Currently on 8 L high flow oxygen. No conversational dyspnea or use of accessory muscles. No audible wheezing. HEENT examination is grossly unremarkable. Neck supple. Full range of motion. No adenopathy thyromegaly or neck vein distention. Cardiovascular examination reveals regular rhythm rate. S1-S2 normal. No S3 or S4. No discernible murmur noted. Heart rate 71 bpm. Heart sounds are distant. Lungs reveal coarse bilateral inspiratory and expiratory rhonchi and wheezes. Breath sounds are diminished throughout. No crackles. Saturations are 96% on 8 L high flow oxygen. Abdomen soft bowel sounds are heard. No masses or tenderness. Extremities are intact. No cyanosis clubbing or edema. Skin is without rash or lesion. Neurologic examination is brief but nonfocal. - Labs CBC & Chem 7: 07/12/22 23:31 07/12/22 23:59 Labs: Abnormal Lab Results - Last 24 Hours (Table) 07/13/22 07/13/22 07/14/22 Range/Units 16:36 20:15 06:25 POC Glucose (mg/dL) 113 H 152 H 121 H (70-110) mg/dL 07/14/22 Range/Units 11:44 POC Glucose (mg/dL) 188 H (70-110) mg/dL Assessment and Plan Assessment: Acute on chronic hypoxemic and hypercapnic respiratory failure, secondary to severe/end stage COPD, with an FEV1 that is about 30% of predicted. Chronic hypoxemic respiratory failure. Prior history of heavy tobacco use. History of hyperlipidemia. History of hypertension. History of CAD. History of angina pectoris. History of aortic stenosis. Chronic low back pain. History of anxiety/depression. Plan: Plan dated 07/13/2022. The patient is given albuterol sulfate and ipratropium bromide breathing treatments. In addition, she gets Pulmicort 1 mg, mixed with formoterol, 20 g, twice a day. Also, the patient will be given Solu-Medrol 60 mg every 6 hours. The patient continues on BiPAP therapy. In addition, she was placed on azithromycin 500 mg a day for 3 days, and Rocephin, 2 g, every 24 hours. Her chest x-ray clearly shows a pneumonia in the right lung. Prognosis is guarded. We will continue to follow and make recommendations along the way. Plan dated 07/14/2022. The patient's on all appropriate medications including short acting beta agonist, short acting muscarinic antagonist, long-acting beta agonist, inhaled corticosteroids, and systemic corticosteroids. In addition, the patient is getting azithromycin, and Rocephin. We will continue to follow make recommendations along the way. The patient is encouraged about the importance of smoking cessation. Overall prognosis remains guarded. Time with Patient: Less than 30
[2022-07-14 16:47] LABS: Glucose,Whole Blood 233 mg/dL (70-110)
[2022-07-14 20:06] LABS: Glucose,Whole Blood 165 mg/dL (70-110)
[2022-07-14] MEDS: ATORVASTATIN 40 MG TAB PO SCH (21:08)
[2022-07-15] MEDS: ALPRAZolam 0.5 MG TAB PO PRN ×2 (00:44→12:28)
[2022-07-15 06:16] LABS: Glucose,Whole Blood 158 mg/dL (70-110)
[2022-07-15] MEDS: INSULIN ASPART (NovoLOG) 100 UNIT/ML VIAL SQ SCH ×4 (06:29→20:46)
[2022-07-15] MEDS: methylPREDNISolone SOD SUCCI 125 MG/2 ML VIAL IV SCH ×4 (06:32→23:25)
[2022-07-15] MEDS: lisinopriL 10 MG TAB PO SCH (08:29)
[2022-07-15] MEDS: METOPROLOL TARTRATE 25 MG TAB PO SCH (08:30)
[2022-07-15] MEDS: ASPIRIN 81 MG PO SCH (08:30)
[2022-07-15] MEDS: FAMOTIDINE 20 MG TAB PO SCH ×2 (08:30→20:45)
[2022-07-15] MEDS: HEPARIN SODIUM,PORCINE/PF 5,000 UNIT/0.5 ML SYRINGE SQ SCH ×2 (08:30→20:45)
[2022-07-15] MEDS: SERTRALINE 100 MG TAB PO SCH (08:30)
[2022-07-15] MEDS: AZITHROMYCIN 500 MG TAB PO SCH (08:30)
[2022-07-15] MEDS: BUDESONIDE 1 MG/2 ML NEBU INHALATION SCH ×2 (09:08→21:15)
[2022-07-15] MEDS: FORMOTEROL FUMARATE 20 MCG/2 ML NEBU INHALATION SCH ×2 (09:09→21:15)
[2022-07-15] MEDS: IPRATROPIUM-ALBUTEROL 3 ML NEB INHALATION SCH ×4 (09:09→21:15)
--- NOTE | 2022-07-15 11:04 | P.PN ---
Subjective Progress Note Date: 07/15/22 Principal diagnosis: Shortness of breath. Pulmonary consult dated 07/13/2022. 61-year-old female, who looks much older than her stated age, who has severe end stage COPD, with an FEV1 that's about 30% of predicted, is seen in the emergency room on July 12, with severe shortness of breath. The patient was apparently evaluated there, and admitted to the hospital. We are asked to see her in consultation. Currently, she is on BiPAP with settings of 10/5 and 60%. She's not receiving any IV fluids. Apparently in the emergency room, she was thinking in single words and cannot complete a sentence, and also was tripoding. She not been feeling well for a couple days prior to admission, and was getting progressively worse, so decided to come into the emergency room to be seen. In addition to COPD, she has a history of CAD, chest pain, respiratory failure, chronic hypoxemic respiratory failure, tracheobronchitis, aortic valve stenosis, chronic low back pain, DJD, and bilateral cataracts. She apparently does not smoke currently. She smoked heavily in the past. It should also be noted that the patient had her last PFT in 2016, and I suspect current PFTs which show much worse lung function. I saw her last in the office in April of this year. White count 12.6, with a normal hemoglobin, hematocrit, and platelet count. Sodium 133, potassium 4.9, chlorides 91, CO2 44, BUN 15, and creatinine 0.39. Chest x-ray revealed a pneumonic process in the right lower lobe. Progress note dated 07/14/2022. This is a 61-year-old female with history of severe COPD. FEV1 is about 30-33% of predicted. The patient was seen yesterday in consultation. Currently, she i s on 8 L high flow nasal cannula. She's not receiving any IV fluids. She does spend time on BiPAP, and did so last night, with settings of 10/5 and 60%. She does feel clinically better today. Labs today include a glucose of 188. Progress note dated 07/15/2022. 61-year-old female admitted with a diagnosis of COPD exacerbation. When last checked, many years back, her FEV1 percent was 33. The patient is currently being seen today in room 359. She did not use of BiPAP device last night. She is on 8 L high flow oxygen. She's not receiving any IV fluids. She is starting to feel better. No new labs today. Pro-calcitonin level when it was checked, was only 0.07 Objective - Vital Signs Vital signs: Vital Signs Temp 98 F 07/15/22 08:00 Pulse 78 07/15/22 09:37 Resp 22 07/15/22 08:00 BP 178/103 07/15/22 08:00 Pulse Ox 94 L 07/15/22 09:10 FiO2 60 07/14/22 04:00 Intake & Output 07/14/22 07/15/22 07/15/22 18:59 06:59 18:59 Intake Total 240 Output Total 450 Balance -450 240 Intake: Oral 240 Output: Urine 450 Other: Voiding Method Bedside Commode Bedside Commode # Voids 2 1 1 - Exam Currently on 8 L high flow oxygen. No conversational dyspnea or use of accessory muscles. No audible wheezing. HEENT examination is grossly unremarkable. Neck supple. Full range of motion. No adenopathy thyromegaly or neck vein distention. Cardiovascular examination reveals regular rhythm rate. S1-S2 normal. No S3 or S4. No discernible murmur noted. Heart rate 78 bpm. Heart sounds are distant. Lungs reveal coarse bilateral inspiratory and expiratory rhonchi and wheezes. Breath sounds are diminished throughout. No crackles. Saturations are 94 % on 8 L high flow oxygen. Abdomen soft bowel sounds are heard. No masses or tenderness. Extremities are intact. No cyanosis clubbing or edema. Skin is without rash or lesion. Neurologic examination is brief but nonfocal. - Labs CBC & Chem 7: 07/12/22 23:31 07/12/22 23:59 Labs: Abnormal Lab Results - Last 24 Hours (Table) 07/14/22 07/14/22 07/14/22 Range/Units 11:44 16:44 20:02 POC Glucose (mg/dL) 188 H 233 H 165 H (70-110) mg/dL 07/15/22 Range/Units 06:15 POC Glucose (mg/dL) 158 H (70-110) mg/dL Assessment and Plan Assessment: Acute on chronic hypoxemic and hypercapnic respiratory failure, secondary to severe/end stage COPD, with an FEV1 that is about 30% of predicted. Chronic hypoxemic respiratory failure. Prior history of heavy tobacco use. History of hyperlipidemia. History of hypertension. History of CAD. History of angina pectoris. History of aortic stenosis. Chronic low back pain. History of anxiety/depression. Plan: Plan dated 07/13/2022. The patient is given albuterol sulfate and ipratropium bromide breathing treatments. In addition, she gets Pulmicort 1 mg, mixed with formoterol, 20 g, twice a day. Also, the patient will be given Solu-Medrol 60 mg every 6 hours. The patient continues on BiPAP therapy. In addition, she was placed on azithromycin 500 mg a day for 3 days, and Rocephin, 2 g, every 24 hours. Her chest x-ray clearly shows a pneumonia in the right lung. Prognosis is guarded. We will continue to follow and make recommendations along the way. Plan dated 07/14/2022. The patient's on all appropriate medications including short acting beta agonist, short acting muscarinic antagonist, long-acting beta agonist, inhaled corticosteroids, and systemic corticosteroids. In addition, the patient is getting azithromycin, and Rocephin. We will continue to follow make recommendations along the way. The patient is encouraged about the importance of smoking cessation. Overall prognosis remains guarded. Plan dated 07/15/2022. The patient is doing better. Her breathing is improved. She continues on appropriate medications. Currently, she is on 8 L high flow oxygen. She did n ot use of BiPAP device last night. We will discontinue it from the room. Labs, x-rays, and medications are all reviewed. We will discontinue the Rocephin. The patient's overall prognosis remains guarded. We'll continue to follow the patient and make recommendations along the way. Time with Patient: Less than 30
[2022-07-15 11:42] LABS: Glucose,Whole Blood 284 mg/dL (70-110)
[2022-07-15 16:36] LABS: Glucose,Whole Blood 138 mg/dL (70-110)
[2022-07-15] MEDS: amLODIPine 10 MG TAB PO SCH (16:43)
[2022-07-15 20:08] LABS: Glucose,Whole Blood 175 mg/dL (70-110)
[2022-07-15] MEDS: METOPROLOL TARTRATE 50 MG TAB PO SCH (20:45)
[2022-07-15] MEDS: ATORVASTATIN 40 MG TAB PO SCH (20:45)
[2022-07-16 06:06] LABS: Glucose,Whole Blood 145 mg/dL (70-110)
[2022-07-16] MEDS: INSULIN ASPART (NovoLOG) 100 UNIT/ML VIAL SQ SCH ×4 (06:07→20:45)
[2022-07-16] MEDS: methylPREDNISolone SOD SUCCI 125 MG/2 ML VIAL IV SCH ×4 (06:23→23:38)
--- NOTE | 2022-07-16 07:02 | PN ---
PROGRESS NOTE DATE OF SERVICE: 07/15/2022 SUBJECTIVE: This is a 61-year-old woman, who was admitted with COPD exacerbation, right lower lobe pneumonia, is being closely monitored. The patient is short of breath. No chest pain, no palpitation. EXAM: VITAL SIGNS: Pulse 70, blood pressure n, respirations 20. CHEST: Bilateral scattered rhonchi. ABDOMEN: Soft, nontender. NERVOUS SYSTEM: Nonfocal. LABORATORY DATA: Accu-Cheks noted. Other labs are noted. ASSESSMENT: 1. Chronic obstructive pulmonary disease acute exacerbation. 2. Right lower lobe pneumonia possibly hospital-acquired or gram-negative pneumonia. 3. Acute on chronic hypoxic respiratory failure. 4. Hypertension. 5. Change in mental status, multifactorial. 6. Severe aortic stenosis. 7. Multiple medical issues. RECOMMENDATION: To continue current medications, symptomatic treatment. Otherwise, I would recommend Mario Albertoc to the regimen. Continue rest of medication. Broad-spectrum IV antibiotics. IV steroids. Further recommendations to follow. MMLURDESL / IJN: [id number] / CL[place]ORD
[2022-07-16] MEDS: FAMOTIDINE 20 MG TAB PO SCH ×2 (08:59→20:48)
[2022-07-16] MEDS: HEPARIN SODIUM,PORCINE/PF 5,000 UNIT/0.5 ML SYRINGE SQ SCH ×2 (08:59→20:48)
[2022-07-16] MEDS: METOPROLOL TARTRATE 50 MG TAB PO SCH ×2 (08:59→20:48)
[2022-07-16] MEDS: AZITHROMYCIN 500 MG TAB PO SCH (08:59)
[2022-07-16] MEDS: amLODIPine 10 MG TAB PO SCH (08:59)
[2022-07-16] MEDS: ASPIRIN 81 MG PO SCH (08:59)
[2022-07-16] MEDS: SERTRALINE 100 MG TAB PO SCH (08:59)
[2022-07-16] MEDS: lisinopriL 10 MG TAB PO SCH (09:00)
[2022-07-16] MEDS: FORMOTEROL FUMARATE 20 MCG/2 ML NEBU INHALATION SCH ×2 (09:14→21:50)
[2022-07-16] MEDS: BUDESONIDE 1 MG/2 ML NEBU INHALATION SCH ×2 (09:14→21:49)
[2022-07-16] MEDS: IPRATROPIUM-ALBUTEROL 3 ML NEB INHALATION SCH ×4 (09:14→21:50)
--- NOTE | 2022-07-16 11:31 | P.PN ---
Subjective Progress Note Date: 07/16/22 Principal diagnosis: Shortness of breath. Pulmonary consult dated 07/13/2022. 61-year-old female, who looks much older than her stated age, who has severe end stage COPD, with an FEV1 that's about 30% of predicted, is seen in the emergency room on July 12, with severe shortness of breath. The patient was apparently evaluated there, and admitted to the hospital. We are asked to see her in consultation. Currently, she is on BiPAP with settings of 10/5 and 60%. She's not receiving any IV fluids. Apparently in the emergency room, she was thinking in single words and cannot complete a sentence, and also was tripoding. She not been feeling well for a couple days prior to admission, and was getting progressively worse, so decided to come into the emergency room to be seen. In addition to COPD, she has a history of CAD, chest pain, respiratory failure, chronic hypoxemic respiratory failure, tracheobronchitis, aortic valve stenosis, chronic low back pain, DJD, and bilateral cataracts. She apparently does not smoke currently. She smoked heavily in the past. It should also be noted that the patient had her last PFT in 2016, and I suspect current PFTs which show much worse lung function. I saw her last in the office in April of this year. White count 12.6, with a normal hemoglobin, hematocrit, and platelet count. Sodium 133, potassium 4.9, chlorides 91, CO2 44, BUN 15, and creatinine 0.39. Chest x-ray revealed a pneumonic process in the right lower lobe. Progress note dated 07/14/2022. This is a 61-year-old female with history of severe COPD. FEV1 is about 30-33% of predicted. The patient was seen yesterday in consultation. Currently, she i s on 8 L high flow nasal cannula. She's not receiving any IV fluids. She does spend time on BiPAP, and did so last night, with settings of 10/5 and 60%. She does feel clinically better today. Labs today include a glucose of 188. Progress note dated 07/15/2022. 61-year-old female admitted with a diagnosis of COPD exacerbation. When last checked, many years back, her FEV1 percent was 33. The patient is currently being seen today in room 359. She did not use of BiPAP device last night. She is on 8 L high flow oxygen. She's not receiving any IV fluids. She is starting to feel better. No new labs today. Pro-calcitonin level when it was checked, was only 0.07. Progress note dated 07/16/2022. 61-year-old female with a history of COPD, which is quite severe, admitted with a diagnosis of COPD exacerbation. Her FEV1 percent is right around 30%. Anyway, the patient is currently on 7 L high flow O2. She's not receiving any IV fluids. The patient is improved. Not quite yet ready to be discharged. No new laboratory data today other than a glucose of 145. Objective - Vital Signs Vital signs: Vital Signs Temp 97.3 F L 07/16/22 09:03 Pulse 65 07/16/22 09:39 Resp 20 07/16/22 09:03 BP 167/82 07/16/22 09:03 Pulse Ox 90 L 07/16/22 09:18 FiO2 60 07/14/22 04:00 Intake & Output 07/15/22 07/16/22 07/16/22 18:59 06:59 18:59 Intake Total 240 118 Output Total 450 Balance 240 -332 Intake: Oral 240 118 Output: Urine 450 Other: Voiding Method Bedside Commode Bedside Commode Bedside Commode # Voids 3 3 1 - Exam Currently on 8 L high flow oxygen. No conversational dyspnea or use of a ccessory muscles. No audible wheezing. HEENT examination is grossly unremarkable. Neck supple. Full range of motion. No adenopathy thyromegaly or neck vein distention. Cardiovascular examination reveals regular rhythm rate. S1-S2 normal. No S3 or S4. No discernible murmur noted. Heart rate 65 bpm. Heart sounds are distant. Lungs reveal coarse bilateral inspiratory and expiratory rhonchi and wheezes. Breath sounds are diminished throughout. No crackles. Saturations are 90% on 7 L high flow oxygen. Breath sounds are improved somewhat. Abdomen soft bowel sounds are heard. No masses or tenderness. Extremities are intact. No cyanosis clubbing or edema. Skin is without rash or lesion. Neurologic examination is brief but nonfocal. - Labs CBC & Chem 7: 07/12/22 23:31 07/12/22 23:59 Labs: Abnormal Lab Results - Last 24 Hours (Table) 07/15/22 07/15/22 07/15/22 Range/Units 11:39 16:34 20:07 POC Glucose (mg/dL) 284 H 138 H 175 H (70-110) mg/dL 07/16/22 Range/Units 06:05 POC Glucose (mg/dL) 145 H (70-110) mg/dL Assessment and Plan Assessment: Acute on chronic hypoxemic and hypercapnic respiratory failure, secondary to severe/end stage COPD, with an FEV1 that is about 30% of predicted. Chronic hypoxemic respiratory failure. Prior history of heavy tobacco use. History of hyperlipidemia. History of hypertension. History of CAD. History of angina pectoris. History of aortic stenosis. Chronic low back pain. History of anxiety/depression. Plan: Plan dated 07/13/2022. The patient is given albuterol sulfate and ipratropium bromide breathing treatments. In addition, she gets Pulmicort 1 mg, mixed with formoterol, 20 g, twice a day. Also, the patient will be given Solu-Medrol 60 mg every 6 hours. The patient continues on BiPAP therapy. In addition, she was placed on a zithromycin 500 mg a day for 3 days, and Rocephin, 2 g, every 24 hours. Her chest x-ray clearly shows a pneumonia in the right lung. Prognosis is guarded. We will continue to follow and make recommendations along the way. Plan dated 07/14/2022. The patient's on all appropriate medications including short acting beta agonist, short acting muscarinic antagonist, long-acting beta agonist, inhaled corticosteroids, and systemic corticosteroids. In addition, the patient is getting azithromycin, and Rocephin. We will continue to follow make recommendations along the way. The patient is encouraged about the importance of smoking cessation. Overall prognosis remains guarded. Plan dated 07/15/2022. The patient is doing better. Her breathing is improved. She continues on appropriate medications. Currently, she is on 8 L high flow oxygen. She did not use of BiPAP device last night. We will discontinue it from the room. Labs, x-rays, and medications are all reviewed. We will discontinue the Rocephin. The patient's overall prognosis remains guarded. We'll continue to follow the patient and make recommendations along the way. Plan dated 07/16/2022. The patient appears to be doing a bit better. Her lung sounds are improved. She still is bronchospastic. The patient does have severe COPD. She's been turned down to 7 L high flow oxygen. Saturations are 90%. Labs, x-rays, medications are reviewed. We will continue to follow the patient and make recommendations along the way. Prognosis is guarded. Time with Patient: Less than 30
[2022-07-16 12:02] LABS: Glucose,Whole Blood 139 mg/dL (70-110)
--- NOTE | 2022-07-16 13:39 | PN ---
PROGRESS NOTE DATE OF SERVICE: 07/16/2022 SUBJECTIVE: This 61-year-old woman was admitted with COPD acute exacerbation, still on supplemental oxygen. The patient is on bronchodilators. Pulmonary is following the patient closely. No chest pain, no palpitation. OBJECTIVE: VITAL SIGNS: Pulse is 55, blood pressure 150/80, respirations 20. CHEST: Few scattered rhonchi and crackles. ABDOMEN: Soft. NERVOUS SYSTEM: No focal deficits. LABORATORY DATA: Reviewed. ASSESSMENT: 1. Chronic obstructive pulmonary disease acute exacerbation. 2. Right lower lobe pneumonia with possibly hospital-acquired or gram-negative pneumonia. 3. Acute on chronic hypoxic respiratory failure. 4. Hypertension. 5. Change in mental status, multifactorial. 6. Severe aortic stenosis. 7. Multiple medical issues. RECOMMENDATIONS: Recommended to continue current management and continue symptomatic treatment, continue bronchodilators, IV steroids. Closely follow with Pulmonary. Guarded prognosis. Further recommendations to follow. MMODL / IJN: [id number] /
[2022-07-16 17:09] LABS: Glucose,Whole Blood 119 mg/dL (70-110)
[2022-07-16 20:33] LABS: Glucose,Whole Blood 147 mg/dL (70-110)
[2022-07-16] MEDS: ATORVASTATIN 40 MG TAB PO SCH (20:48)
[2022-07-17 06:14] LABS: Glucose,Whole Blood 144 mg/dL (70-110)
[2022-07-17] MEDS: INSULIN ASPART (NovoLOG) 100 UNIT/ML VIAL SQ SCH ×4 (06:14→20:51)
[2022-07-17] MEDS: methylPREDNISolone SOD SUCCI 125 MG/2 ML VIAL IV SCH ×3 (06:20→17:06)
[2022-07-17 07:47] LABS: Basophils % (A) 0 %; Eosinophils % (A) 0 %; HCT 38.8 % (34.0-46.0); HGB 12.5 gm/dL (11.4-16.0); Lymphocytes # (A) 0.5 k/uL (1.0-4.8); Lymphocytes % (A) 6 %; MCH 29.9 pg (25.0-35.0); MCHC 32.1 g/dL (31.0-37.0); MCV 93.1 fL (80.0-100.0); Mean Platelet Volume 8.1; Monocytes # (A) 0.3 k/uL (0-1.0); Monocytes % (A) 4 %; Neutrophils # (A) 6.8 k/uL (1.3-7.7); Neutrophils % (A) 89 %; Platelet Count 223 k/uL (150-450); RBC 4.17 m/uL (3.80-5.40); RDW 13.1 % (11.5-15.5); WBC 7.7 k/uL (3.8-10.6)
[2022-07-17] MEDS: FORMOTEROL FUMARATE 20 MCG/2 ML NEBU INHALATION SCH ×2 (07:54→21:36)
[2022-07-17] MEDS: BUDESONIDE 1 MG/2 ML NEBU INHALATION SCH ×2 (07:54→21:36)
[2022-07-17] MEDS: IPRATROPIUM-ALBUTEROL 3 ML NEB INHALATION SCH ×4 (07:54→21:36)
[2022-07-17 08:17] LABS: African American GFR (CKD) >90 (>60 ml/min/1.73 sqM); Blood Urea Nitrogen 21 mg/dL (7-17); Calcium 8.7 mg/dL (8.4-10.2); Chloride 88 mmol/L (98-107); Glucose 116 mg/dL (74-99); Non-African American GFR(CKD) >90 (>60 ml/min/1.73 sqM); Potassium 4.2 mmol/L (3.5-5.1); Sodium 134 mmol/L (137-145)
[2022-07-17 08:26] LABS: Anion Gap 1 mmol/L
[2022-07-17 08:35] LABS: Carbon Dioxide 45 mmol/L (22-30)
[2022-07-17] MEDS: FAMOTIDINE 20 MG TAB PO SCH ×2 (08:52→20:49)
[2022-07-17] MEDS: METOPROLOL TARTRATE 50 MG TAB PO SCH ×2 (08:52→20:49)
[2022-07-17] MEDS: lisinopriL 10 MG TAB PO SCH (08:52)
[2022-07-17] MEDS: SERTRALINE 100 MG TAB PO SCH (08:52)
[2022-07-17] MEDS: HEPARIN SODIUM,PORCINE/PF 5,000 UNIT/0.5 ML SYRINGE SQ SCH ×2 (08:52→20:51)
[2022-07-17] MEDS: amLODIPine 10 MG TAB PO SCH (08:52)
[2022-07-17] MEDS: ASPIRIN 81 MG PO SCH (08:52)
--- NOTE | 2022-07-17 11:27 | P.PN ---
Subjective Progress Note Date: 07/17/22 Principal diagnosis: Shortness of breath. Pulmonary consult dated 07/13/2022. 61-year-old female, who looks much older than her stated age, who has severe end stage COPD, with an FEV1 that's about 30% of predicted, is seen in the emergency room on July 12, with severe shortness of breath. The patient was apparently evaluated there, and admitted to the hospital. We are asked to see her in consultation. Currently, she is on BiPAP with settings of 10/5 and 60%. She's not receiving any IV fluids. Apparently in the emergency room, she was thinking in single words and cannot complete a sentence, and also was tripoding. She not been feeling well for a couple days prior to admission, and was getting progressively worse, so decided to come into the emergency room to be seen. In addition to COPD, she has a history of CAD, chest pain, respiratory failure, chronic hypoxemic respiratory failure, tracheobronchitis, aortic valve stenosis, chronic low back pain, DJD, and bilateral cataracts. She apparently does not smoke currently. She smoked heavily in the past. It should also be noted that the patient had her last PFT in 2016, and I suspect current PFTs which show much worse lung function. I saw her last in the office in April of this year. White count 12.6, with a normal hemoglobin, hematocrit, and platelet count. Sodium 133, potassium 4.9, chlorides 91, CO2 44, BUN 15, and creatinine 0.39. Chest x-ray revealed a pneumonic process in the right lower lobe. Progress note dated 07/14/2022. This is a 61-year-old female with history of severe COPD. FEV1 is about 30-33% of predicted. The patient was seen yesterday in consultation. Currently, she i s on 8 L high flow nasal cannula. She's not receiving any IV fluids. She does spend time on BiPAP, and did so last night, with settings of 10/5 and 60%. She does feel clinically better today. Labs today include a glucose of 188. Progress note dated 07/15/2022. 61-year-old female admitted with a diagnosis of COPD exacerbation. When last checked, many years back, her FEV1 percent was 33. The patient is currently being seen today in room 359. She did not use of BiPAP device last night. She is on 8 L high flow oxygen. She's not receiving any IV fluids. She is starting to feel better. No new labs today. Pro-calcitonin level when it was checked, was only 0.07. Progress note dated 07/16/2022. 61-year-old female with a history of COPD, which is quite severe, admitted with a diagnosis of COPD exacerbation. Her FEV1 percent is right around 30%. Anyway, the patient is currently on 7 L high flow O2. She's not receiving any IV fluids. The patient is improved. Not quite yet ready to be discharged. No new laboratory data today other than a glucose of 145. Progress note dated 07/17/2022. Patient is seen today in room 359. She sitting up in bed. She was admitted with a diagnosis of COPD exacerbation. The patient's currently on 5 L of oxygen. She's not receiving any IV fluids. She's feeling much better. She has severe COPD with an FEV1 that's about 30% of predicted. Labs today include a white count 7.7, hemoglobin 12.5, hematocrit 38.8, with a normal platelet count. Sodium 134, potassium 4.2, chloride 88, CO2 45, BUN 21, and creatinine 0.45. Objective - Vital Signs Vital signs: Vital Signs Temp 97.4 F L 07/17/22 08:49 Pulse 61 07/17/22 08:56 Resp 20 07/17/22 08:56 BP 148/84 07/17/22 08:49 Pulse Ox 95 07/17/22 08:49 FiO2 60 07/14/22 04:00 Intake & Output 07/16/22 07/17/22 07/17/22 18:59 06:59 18:59 Intake Total 118 240 118 Output Total 875 Balance -757 240 118 Intake: Oral 118 240 118 Output: Urine 875 Other: Voiding Method Bedside Commode Bedside Commode Bedside Commode # Voids 2 1 - Exam Currently on 5 L high flow oxygen. No conversational dyspnea or use of accessory muscles. No audible wheezing. HEENT examination is grossly unremarkable. Neck supple. Full range of motion. No adenopathy thyromegaly or neck vein distention. Cardiovascular examination reveals regular rhythm rate. S1-S2 normal. No S3 or S4. No discernible murmur noted. Heart rate 56 bpm. Heart sounds are distant. Lungs reveal coarse bilateral inspiratory and expiratory rhonchi and wheezes. Breath sounds are diminished throughout. No crackles. Saturations are 95% on 5 L high flow oxygen. Breath sounds are improved somewhat. Abdomen soft bowel sounds are heard. No masses or tenderness. Extremities are intact. No cyanosis clubbing or edema. Skin is without rash or lesion. Neurologic examination is brief but nonfocal. - Labs CBC & Chem 7: 07/17/22 06:38 07/17/22 06:38 Labs: Abnormal Lab Results - Last 24 Hours (Table) 07/16/22 07/16/22 07/16/22 Range/Units 11:57 16:42 20:32 Lymphocytes # (1.0-4.8) k/uL Sodium (137-145) mmol/L Chloride (98-107) mmol/L Carbon Dioxide (22-30) mmol/L BUN (7-17) mg/dL Creatinine (0.52-1.04) mg/dL Glucose (74-99) mg/dL POC Glucose (mg/dL) 139 H 119 H 147 H (70-110) mg/dL 07/17/22 07/17/22 07/17/22 Range/Units 06:12 06:38 06:38 Lymphocytes # 0.5 L (1.0-4.8) k/uL Sodium 134 L (137-145) mmol/L Chloride 88 L (98-107) mmol/L Carbon Dioxide 45 H* (22-30) mmol/L BUN 21 H (7-17) mg/dL Creatinine 0.45 L (0.52-1.04) mg/dL Glucose 116 H (74-99) mg/dL POC Glucose (mg/dL) 144 H (70-110) mg/dL Assessment and Plan Assessment: Acute on chronic hypoxemic and hypercapnic respiratory failure, secondary to severe/end stage COPD, with an FEV1 that is about 30% of predicted. Chronic hypoxemic respiratory failure. Prior history of heavy tobacco use. History of hyperlipidemia. History of hypertension. History of CAD. History of angina pectoris. History of aortic stenosis. Chronic low back pain. History of anxiety/depression. Plan: Plan dated 07/13/2022. The patient is given albuterol sulfate and ipratropium bromide breathing t reatments. In addition, she gets Pulmicort 1 mg, mixed with formoterol, 20 g, twice a day. Also, the patient will be given Solu-Medrol 60 mg every 6 hours. The patient continues on BiPAP therapy. In addition, she was placed on azithromycin 500 mg a day for 3 days, and Rocephin, 2 g, every 24 hours. Her chest x-ray clearly shows a pneumonia in the right lung. Prognosis is guarded. We will continue to follow and make recommendations along the way. Plan dated 07/14/2022. The patient's on all appropriate medications including short acting beta agonist, short acting muscarinic antagonist, long-acting beta agonist, inhaled corticosteroids, and systemic corticosteroids. In addition, the patient is getting azithromycin, and Rocephin. We will continue to follow make recommendations along the way. The patient is encouraged about the importance of smoking cessation. Overall prognosis remains guarded. Plan dated 07/15/2022. The patient is doing better. Her breathing is improved. She continues on appropriate medications. Currently, she is on 8 L high flow oxygen. She did not use of BiPAP device last night. We will discontinue it from the room. Labs, x-rays, and medications are all reviewed. We will discontinue the Rocephin. The patient's overall prognosis remains guarded. We'll continue to follow the patient and make recommendations along the way. Plan dated 07/16/2022. The patient appears to be doing a bit better. Her lung sounds are improved. She still is bronchospastic. The patient does have severe COPD. She's been turned down to 7 L high flow oxygen. Saturations are 90%. Labs, x-rays, medications are reviewed. We will continue to follow the patient and make recommendations along the way. Prognosis is guarded. Plan dated 07/17/2022. The patient could be considered for possible discharge from the hospital. She's down to 5 L. We will continue to follow make recommendations along the way. Labs, x-rays, and medications are reviewed. Prognosis is guarded. The patient should follow-up in our office. Time with Patient: Less than 30
[2022-07-17 11:57] LABS: Glucose,Whole Blood 206 mg/dL (70-110)
--- NOTE | 2022-07-17 14:29 | P.PN ---
Subjective Progress Note Date: 07/17/22 61-year-old female, who looks much older than her stated age, who has severe end stage COPD, with an FEV1 that's about 30% of predicted, is seen in the emergency room on July 12, with severe shortness of breath. The patient was apparently evaluated there, and admitted to the hospital. Currently, she is on BiPAP with settings of 10/5 and 60%. She's not receiving any IV fluids. Apparently in the emergency room, she was thinking in single words and cannot complete a sentence, and also was tripoding. She not been feeling well for a couple days prior to admission, and was getting progressively worse, so decided to come into the emergency room to be seen. In addition to COPD, she has a history of CAD, chest pain, respiratory failure, chronic hypoxemic respiratory failure, tracheobronchitis, aortic valve stenosis, chronic low back pain, DJD, and bilateral cataracts. She apparently does not smoke currently. She smoked heavily in the past. It should also be noted that the patient had her last PFT in 2016, and I suspect current PFTs which show much worse lung function. I saw her last in the office in April of this year. White count 12.6, with a normal hemoglobin, hematocrit, and platelet count. Sodium 133, potassium 4.9, chlorides 91, CO2 44, BUN 15, and creatinine 0.39. Chest x-ray revealed a pneumonic process in the right lower lobe. 07/17. Patient seen and examined. Currently on 5 L of oxygen. States she gets short of breath on exertion. REVIEW OF SYSTEMS: CONSTITUTIONAL: No fever, no malaise,. CARDIOVASCULAR: No chest pain, no palpitations, no syncope. PULMONARY: No shortness of breath, no cough, GASTROINTESTINAL: No diarrhea, no nausea, no vomiting, no abdominal pain. NEUROLOGICAL: No headaches, no weakness, PHYSICAL EXAMINATION: GENERAL: The patient is alert and oriented x3, not in any acute distress. Well developed, well nourished. HEENT: Pupils are round and equally reacting to light. EOMI. No scleral icterus. No conjunctival pallor. Normocephalic, atraumatic. No pharyngeal erythema. No thyromegaly. CARDIOVASCULAR: S1 and S2 present. No murmurs, rubs, or gallops. PULMONARY: Chest is clear to auscultation, no wheezing or crackles. ABDOMEN: Soft, nontender, nondistended, normoactive bowel sounds. No palpable organomegaly. MUSCULOSKELETAL: No joint swelling or deformity. EXTREMITIES: No cyanosis, clubbing, or pedal edema. NEUROLOGICAL: Gross neurological examination did not reveal any focal deficits. SKIN: No rashes. Assessment and plan Acute on chronic hypoxemic and hypercapnic respiratory failure Acute COPD exacerbation severe/end stage COPD, with an FEV1 that is about 30% of predicted. Chronic hypoxemic respiratory failure. Prior history of heavy tobacco use. History of hyperlipidemia. History of hypertension. History of CAD. History of angina pectoris. History of aortic stenosis. Chronic low back pain. History of anxiety/depression. Plan; Monitor vital signs Continue oxygen supplementation, continue to wean down oxygen Monitor CBC Monitor CMP Continue IV Solu-Medrol Continue breathing treatments with Pulmicort and DuoNeb Continue symptomatic treatment Pulmonology following the patient DVT prophylaxis: Objective - Vital Signs Vital signs: Vital Signs Temp 97.4 F L 07/17/22 08:49 Pulse 61 07/17/22 08:56 Resp 20 07/17/22 08:56 BP 148/84 07/17/22 08:49 Pulse Ox 95 07/17/22 08:49 FiO2 60 07/14/22 04:00 Intake & Output 07/16/22 07/17/22 07/17/22 18:59 06:59 18:59 Intake Total 118 240 Output Total 875 Balance -757 240 Intake: Oral 118 240 Output: Urine 875 Other: Voiding Method Bedside Commode Bedside Commode Bedside Commode # Voids 2 1 - Labs CBC & Chem 7: 07/17/22 06:38 07/17/22 06:38 Labs: Abnormal Lab Results - Last 24 Hours (Table) 07/16/22 07/16/22 07/16/22 Range/Units 11:57 16:42 20:32 Lymphocytes # (1.0-4.8) k/uL Sodium (137-145) mmol/L Chloride (98-107) mmol/L Carbon Dioxide (22-30) mmol/L BUN (7-17) mg/dL Creatinine (0.52-1.04) mg/dL Glucose (74-99) mg/dL POC Glucose (mg/dL) 139 H 119 H 147 H (70-110) mg/dL 07/17/22 07/17/22 07/17/22 Range/Units 06:12 06:38 06:38 Lymphocytes # 0.5 L (1.0-4.8) k/uL Sodium 134 L (137-145) mmol/L Chloride 88 L (98-107) mmol/L Carbon Dioxide 45 H* (22-30) mmol/L BUN 21 H (7-17) mg/dL Creatinine 0.45 L (0.52-1.04) mg/dL Glucose 116 H (74-99) mg/dL POC Glucose (mg/dL) 144 H (70-110) mg/dL
[2022-07-17 16:40] LABS: Glucose,Whole Blood 124 mg/dL (70-110)
[2022-07-17 20:00] LABS: Glucose,Whole Blood 188 mg/dL (70-110)
[2022-07-17] MEDS: ATORVASTATIN 40 MG TAB PO SCH (20:49)
[2022-07-18] MEDS: methylPREDNISolone SOD SUCCI 125 MG/2 ML VIAL IV SCH ×5 (00:29→23:52)
[2022-07-18 05:31] LABS: Glucose,Whole Blood 123 mg/dL (70-110)
[2022-07-18] MEDS: INSULIN ASPART (NovoLOG) 100 UNIT/ML VIAL SQ SCH ×4 (05:49→20:47)
[2022-07-18] MEDS: FORMOTEROL FUMARATE 20 MCG/2 ML NEBU INHALATION SCH ×2 (07:53→20:25)
[2022-07-18] MEDS: IPRATROPIUM-ALBUTEROL 3 ML NEB INHALATION SCH ×4 (07:53→20:25)
[2022-07-18] MEDS: BUDESONIDE 1 MG/2 ML NEBU INHALATION SCH ×2 (07:54→20:25)
[2022-07-18] MEDS: amLODIPine 10 MG TAB PO SCH (07:56)
[2022-07-18] MEDS: ASPIRIN 81 MG PO SCH (07:56)
[2022-07-18] MEDS: FAMOTIDINE 20 MG TAB PO SCH ×2 (07:56→20:47)
[2022-07-18] MEDS: SERTRALINE 100 MG TAB PO SCH (07:56)
[2022-07-18] MEDS: METOPROLOL TARTRATE 50 MG TAB PO SCH ×2 (07:57→20:47)
[2022-07-18] MEDS: HEPARIN SODIUM,PORCINE/PF 5,000 UNIT/0.5 ML SYRINGE SQ SCH ×2 (07:57→20:47)
[2022-07-18] MEDS: lisinopriL 10 MG TAB PO SCH (07:57)
[2022-07-18 09:07] LABS: HCT 38.1 % (34.0-46.0); HGB 12.2 gm/dL (11.4-16.0); MCH 29.4 pg (25.0-35.0); MCHC 32.1 g/dL (31.0-37.0); MCV 91.6 fL (80.0-100.0); Mean Platelet Volume 7.4; Platelet Count 252 k/uL (150-450); RBC 4.16 m/uL (3.80-5.40); RDW 12.8 % (11.5-15.5); WBC 8.9 k/uL (3.8-10.6)
[2022-07-18 09:21] LABS: ALT 14 U/L (4-34); AST 17 U/L (14-36); African American GFR (CKD) >90 (>60 ml/min/1.73 sqM); Albumin 3.4 g/dL (3.5-5.0); Alkaline Phosphatase 66 U/L (38-126); Blood Urea Nitrogen 20 mg/dL (7-17); Calcium 8.9 mg/dL (8.4-10.2); Chloride 86 mmol/L (98-107); Glucose 120 mg/dL (74-99); Non-African American GFR(CKD) >90 (>60 ml/min/1.73 sqM); Potassium 3.8 mmol/L (3.5-5.1); Sodium 135 mmol/L (137-145); Total Bilirubin 0.4 mg/dL (0.2-1.3); Total Protein 6.2 g/dL (6.3-8.2)
[2022-07-18 09:29] LABS: Anion Gap 3 mmol/L
[2022-07-18 09:34] LABS: Carbon Dioxide 46 mmol/L (22-30)
--- NOTE | 2022-07-18 11:18 | XR ---
EXAMINATION TYPE: XR chest 2V DATE OF EXAM: 07/18/2022 COMPARISON: 07/12/2022 HISTORY: Shortness of breath TECHNIQUE: Frontal and lateral views of the chest are obtained. FINDINGS: Scattered senescent parenchymal changes noted. Hyperinflation compatible with COPD. No evidence for infiltrate. No evidence for atelectasis. Heart size is stable. Mediastinal structures are stable and grossly unremarkable. No evidence for hilar prominence. Degenerative changes dorsal spine. IMPRESSION: 1. No evidence for acute pulmonary disease.
[2022-07-18 11:34] LABS: Glucose,Whole Blood 130 mg/dL (70-110)
--- NOTE | 2022-07-18 13:08 | P.PN ---
Subjective Progress Note Date: 07/18/22 61-year-old female, who looks much older than her stated age, who has severe end stage COPD, with an FEV1 that's about 30% of predicted, is seen in the emergency room on July 12, with severe shortness of breath. The patient was apparently evaluated there, and admitted to the hospital. We are asked to see her in consultation. Currently, she is on BiPAP with settings of 10/5 and 60%. She's not receiving any IV fluids. Apparently in the emergency room, she was thinking in single words and cannot complete a sentence, and also was tripoding. She not been feeling well for a couple days prior to admission, and was getting progressively worse, so decided to come into the emergency room to be seen. In addition to COPD, she has a history of CAD, chest pain, respiratory failure, chronic hypoxemic respiratory failure, tracheobronchitis, aortic valve stenosis, chronic low back pain, DJD, and bilateral cataracts. She apparently does not smoke currently. She smoked heavily in the past. It should also be noted that the patient had her last PFT in 2016, and I suspect current PFTs which show much worse lung function. I saw her last in the office in April of this year. White count 12.6, with a normal hemoglobin, hematocrit, and platelet count. Sodium 133, potassium 4.9, chlorides 91, CO2 44, BUN 15, and creatinine 0.39. Chest x-ray revealed a pneumonic process in the right lower lobe. Progress note dated 07/14/2022. This is a 61-year-old female with history of severe COPD. FEV1 is about 30-33% of predicted. The patient was seen yesterday in consultation. Currently, she is on 8 L high flow nasal cannula. She's not receiving any IV fluids. She does spend time on BiPAP, and did so last night, with settings of 10/5 and 60%. She does feel clinically better today. Labs today include a glucose of 188. Progress note dated 07/15/2022. 61-year-old female admitted with a diagnosis of COPD exacerbation. When last checked, many years back, her FEV1 percent was 33. The patient is currently being seen today in room 359. She did not use of BiPAP device last night. She is on 8 L high flow oxygen. She's not receiving any IV fluids. She is starting to feel better. No new labs today. Pro-calcitonin level when it was checked, was only 0.07. Progress note dated 07/16/2022. 61-year-old female with a history of COPD, which is quite severe, admitted with a diagnosis of COPD exacerbation. Her FEV1 percent is right around 30%. Anyway, the patient is currently on 7 L high flow O2. She's not receiving any IV fluids. The patient is improved. Not quite yet ready to be discharged. No new laboratory data today other than a glucose of 145. On today's evaluation of 06/20/2022, the patient will wean down to 5 L of oxygen by nasal cannula. Overall, she is feeling well and stable. She is being treated for an acute choked exacerbation. Noted the patient advanced COPD with chronic hypoxic respiratory failure and the patient has an FEV1 of 30% of predicted at baseline. The patient had some limited infiltration of the right lung base which could be increased pulmonary vessel markings versus pneumonia. Note that she is on no antibiotics for now. She remains on IV Solu-Medrol 60 mg every 6 hours. She is also on DuoNeb nebulized treatments [id number], and Perforomist and Pulmicort neb treatments twice a day. She has limited on accommodation of Spiriva and Symbicort on outpatient basis. No altered mentation. No encephalopathy. Objective - Vital Signs Vital signs: Vital Signs Temp 97.6 F 07/18/22 07:58 Pulse 64 07/18/22 09:20 Resp 16 07/18/22 07:58 BP 170/89 07/18/22 07:58 Pulse Ox 94 L 07/18/22 07:58 FiO2 60 07/14/22 04:00 Intake & Output 07/17/22 07/18/22 07/18/22 18:59 06:59 18:59 Intake Total 118 Output Total 450 Balance 118 -450 Intake: Oral 118 Output: Urine 450 Other: Voiding Method Bedside Commode Bedside Commode # Voids 1 1 - Exam The patient is calm and comfortable, not in acute respiratory distress. No conversational dyspnea or use of accessory muscles. he patient is currently on 5 L of oxygen by nasal cannula HEENT examination is grossly unremarkable. Neck supple. Full range of motion. No adenopathy thyromegaly or neck vein distention. Cardiovascular examination reveals regular rhythm rate. S1-S2 normal. No S3 or S4. No discernible murmur noted. Heart sounds are distant. Lungs reveal coarse bilateral inspiratory and expiratory rhonchi and wheezes. Breath sounds are diminished throughout. No crackles. Abdomen soft bowel sounds are heard. No masses or tenderness. Extremities are intact. No cyanosis clubbing or edema. Skin is without rash or lesion. Neurologic examination is brief but nonfocal. - Labs CBC & Chem 7: 07/18/22 07:46 07/18/22 07:46 Labs: Abnormal Lab Results - Last 24 Hours (Table) 07/17/22 07/17/22 07/17/22 Range/Units 11:47 16:37 19:59 Sodium (137-145) mmol/L Chloride (98-107) mmol/L Carbon Dioxide (22-30) mmol/L BUN (7-17) mg/dL Creatinine (0.52-1.04) mg/dL Glucose (74-99) mg/dL POC Glucose (mg/dL) 206 H 124 H 188 H (70-110) mg/dL Total Protein (6.3-8.2) g/dL Albumin (3.5-5.0) g/dL 07/18/22 07/18/22 Range/Units 05:29 07:46 Sodium 135 L (137-145) mmol/L Chloride 86 L (98-107) mmol/L Carbon Dioxide 46 H* (22-30) mmol/L BUN 20 H (7-17) mg/dL Creatinine 0.43 L (0.52-1.04) mg/dL Glucose 120 H (74-99) mg/dL POC Glucose (mg/dL) 123 H (70-110) mg/dL Total Protein 6.2 L (6.3-8.2) g/dL Albumin 3.4 L (3.5-5.0) g/dL Assessment and Plan Plan: Acute on chronic hypoxemic and hypercapnic respiratory failure, secondary to severe/end stage COPD, with an FEV1 that is about 30% of predicted. The patient is clinically improving. Patient remains on bronchodilators and steroids. Chronic hypoxemic respiratory failure. The patient is on 5 L of oxygen at baseline Prior history of heavy tobacco use. History of hyperlipidemia. History of hypertension. History of CAD. History of angina pectoris. History of aortic stenosis. Chronic low back pain. History of anxiety/depression. Plan: Continue same treatment Repeat chest x-ray Currently on 5 L of oxygen by nasal cannula which is her baseline We'll start tapering steroids of tomorrow We'll continue to follow
--- NOTE | 2022-07-18 14:14 | P.PN ---
Subjective Progress Note Date: 07/18/22 61-year-old female, who looks much older than her stated age, who has severe end stage COPD, with an FEV1 that's about 30% of predicted, is seen in the emergency room on July 12, with severe shortness of breath. The patient was apparently evaluated there, and admitted to the hospital. Currently, she is on BiPAP with settings of 10/5 and 60%. She's not receiving any IV fluids. Apparently in the emergency room, she was thinking in single words and cannot complete a sentence, and also was tripoding. She not been feeling well for a couple days prior to admission, and was getting progressively worse, so decided to come into the emergency room to be seen. In addition to COPD, she has a history of CAD, chest pain, respiratory failure, chronic hypoxemic respiratory failure, tracheobronchitis, aortic valve stenosis, chronic low back pain, DJD, and bilateral cataracts. She apparently does not smoke currently. She smoked heavily in the past. It should also be noted that the patient had her last PFT in 2016, and I suspect current PFTs which show much worse lung function. I saw her last in the office in April of this year. White count 12.6, with a normal hemoglobin, hematocrit, and platelet count. Sodium 133, potassium 4.9, chlorides 91, CO2 44, BUN 15, and creatinine 0.39. Chest x-ray revealed a pneumonic process in the right lower lobe. 07/17. Patient seen and examined. Currently on 5 L of oxygen. States she gets short of breath on exertion. 07/18. Patient seen and examined. Patient was desaturating on minimal exertion. Currently on 5 L of oxygen. Gets short of breath on exertion REVIEW OF SYSTEMS: CONSTITUTIONAL: No fever, no malaise,. CARDIOVASCULAR: No chest pain, no palpitations, no syncope. PULMONARY: No shortness of breath, no cough, GASTROINTESTINAL: No diarrhea, no nausea, no vomiting, no abdominal pain. NEUROLOGICAL: No headaches, no weakness, PHYSICAL EXAMINATION: GENERAL: The patient is alert and oriented x3, not in any acute distress. Well developed, well nourished. HEENT: Pupils are round and equally reacting to light. EOMI. No scleral icterus. No conjunctival pallor. Normocephalic, atraumatic. No pharyngeal erythema. No thyromegaly. CARDIOVASCULAR: S1 and S2 present. No murmurs, rubs, or gallops. PULMONARY: Chest is clear to auscultation, no wheezing or crackles. ABDOMEN: Soft, nontender, nondistended, normoactive bowel sounds. No palpable organomegaly. MUSCULOSKELETAL: No joint swelling or deformity. EXTREMITIES: No cyanosis, clubbing, or pedal edema. NEUROLOGICAL: Gross neurological examination did not reveal any focal deficits. SKIN: No rashes. Assessment and plan Acute on chronic hypoxemic and hypercapnic respiratory failure Acute COPD exacerbation severe/end stage COPD, with an FEV1 that is about 30% of predicted. Chronic hypoxemic respiratory failure. Prior history of heavy tobacco use. History of hyperlipidemia. History of hypertension. History of CAD. History of angina pectoris. History of aortic stenosis. Chronic low back pain. History of anxiety/depression. Plan; Monitor vital signs Continue oxygen supplementation, continue to wean down oxygen Monitor CBC Monitor CMP Continue IV Solu-Medrol Continue breathing treatments with Pulmicort and DuoNeb Continue symptomatic treatment Pulmonology following the patient DVT prophylaxis: Objective - Vital Signs Vital signs: Vital Signs Temp 97.5 F L 07/18/22 12:00 Pulse 58 L 07/18/22 12:00 Resp 20 07/18/22 12:00 BP 161/92 07/18/22 12:00 Pulse Ox 95 07/18/22 12:00 FiO2 60 07/14/22 04:00 Intake & Output 07/17/22 07/18/22 07/18/22 18:59 06:59 18:59 Intake Total 118 Output Total 450 Balance 118 -450 Intake: Oral 118 Output: Urine 450 Other: Voiding Method Bedside Commode Bedside Commode Bedside Commode # Voids 1 1 1 - Labs CBC & Chem 7: 07/18/22 07:46 07/18/22 07:46 Labs: Abnormal Lab Results - Last 24 Hours (Table) 07/17/22 07/17/22 07/18/22 Range/Units 16:37 19:59 05:29 Sodium (137-145) mmol/L Chloride (98-107) mmol/L Carbon Dioxide (22-30) mmol/L BUN (7-17) mg/dL Creatinine (0.52-1.04) mg/dL Glucose (74-99) mg/dL POC Glucose (mg/dL) 124 H 188 H 123 H (70-110) mg/dL Total Protein (6.3-8.2) g/dL Albumin (3.5-5.0) g/dL 07/18/22 07/18/22 Range/Units 07:46 11:32 Sodium 135 L (137-145) mmol/L Chloride 86 L (98-107) mmol/L Carbon Dioxide 46 H* (22-30) mmol/L BUN 20 H (7-17) mg/dL Creatinine 0.43 L (0.52-1.04) mg/dL Glucose 120 H (74-99) mg/dL POC Glucose (mg/dL) 130 H (70-110) mg/dL Total Protein 6.2 L (6.3-8.2) g/dL Albumin 3.4 L (3.5-5.0) g/dL
[2022-07-18 14:37] VITALS: BMI 30.9
[2022-07-18 16:31] LABS: Glucose,Whole Blood 196 mg/dL (70-110)
[2022-07-18 20:29] LABS: Glucose,Whole Blood 245 mg/dL (70-110)
[2022-07-18] MEDS: ATORVASTATIN 40 MG TAB PO SCH (20:47)
[2022-07-18 21:57] VITALS: RESP 18
[2022-07-19 04:59] VITALS: TEMP 97.6
[2022-07-19 06:06] LABS: Glucose,Whole Blood 139 mg/dL (70-110)
[2022-07-19] MEDS: INSULIN ASPART (NovoLOG) 100 UNIT/ML VIAL SQ SCH ×2 (06:29→12:18)
[2022-07-19] MEDS: methylPREDNISolone SOD SUCCI 125 MG/2 ML VIAL IV SCH ×2 (06:57→10:40)
[2022-07-19] MEDS: FORMOTEROL FUMARATE 20 MCG/2 ML NEBU INHALATION SCH (07:35)
[2022-07-19] MEDS: BUDESONIDE 1 MG/2 ML NEBU INHALATION SCH (07:35)
[2022-07-19] MEDS: IPRATROPIUM-ALBUTEROL 3 ML NEB INHALATION SCH ×3 (07:36→15:26)
[2022-07-19] MEDS: ASPIRIN 81 MG PO SCH (09:41)
[2022-07-19] MEDS: amLODIPine 10 MG TAB PO SCH (09:41)
[2022-07-19] MEDS: METOPROLOL TARTRATE 50 MG TAB PO SCH (09:41)
[2022-07-19] MEDS: SERTRALINE 100 MG TAB PO SCH (09:41)
[2022-07-19] MEDS: HEPARIN SODIUM,PORCINE/PF 5,000 UNIT/0.5 ML SYRINGE SQ SCH ×2 (09:41→09:46)
[2022-07-19] MEDS: lisinopriL 10 MG TAB PO SCH (09:41)
[2022-07-19] MEDS: FAMOTIDINE 20 MG TAB PO SCH (09:41)
--- NOTE | 2022-07-19 09:43 | P.PN ---
Subjective Progress Note Date: 07/19/22 61-year-old female, who looks much older than her stated age, who has severe end stage COPD, with an FEV1 that's about 30% of predicted, is seen in the emergency room on July 12, with severe shortness of breath. The patient was apparently evaluated there, and admitted to the hospital. We are asked to see her in consultation. Currently, she is on BiPAP with settings of 10/5 and 60%. She's not receiving any IV fluids. Apparently in the emergency room, she was thinking in single words and cannot complete a sentence, and also was tripoding. She not been feeling well for a couple days prior to admission, and was getting progressively worse, so decided to come into the emergency room to be seen. In addition to COPD, she has a history of CAD, chest pain, respiratory failure, chronic hypoxemic respiratory failure, tracheobronchitis, aortic valve stenosis, chronic low back pain, DJD, and bilateral cataracts. She apparently does not smoke currently. She smoked heavily in the past. It should also be noted that the patient had her last PFT in 2016, and I suspect current PFTs which show much worse lung function. I saw her last in the office in April of this year. White count 12.6, with a normal hemoglobin, hematocrit, and platelet count. Sodium 133, potassium 4.9, chlorides 91, CO2 44, BUN 15, and creatinine 0.39. Chest x-ray revealed a pneumonic process in the right lower lobe. Progress note dated 07/14/2022. This is a 61-year-old female with history of severe COPD. FEV1 is about 30-33% of predicted. The patient was seen yesterday in consultation. Currently, she is on 8 L high flow nasal cannula. She's not receiving any IV fluids. She does spend time on BiPAP, and did so last night, with settings of 10/5 and 60%. She does feel clinically better today. Labs today include a glucose of 188. Progress note dated 07/15/2022. 61-year-old female admitted with a diagnosis of COPD exacerbation. When last checked, many years back, her FEV1 percent was 33. The patient is currently being seen today in room 359. She did not use of BiPAP device last night. She is on 8 L high flow oxygen. She's not receiving any IV fluids. She is starting to feel better. No new labs today. Pro-calcitonin level when it was checked, was only 0.07. Progress note dated 07/16/2022. 61-year-old female with a history of COPD, which is quite severe, admitted with a diagnosis of COPD exacerbation. Her FEV1 percent is right around 30%. Anyway, the patient is currently on 7 L high flow O2. She's not receiving any IV fluids. The patient is improved. Not quite yet ready to be discharged. No new laboratory data today other than a glucose of 145. On today's evaluation of 06/20/2022, the patient will wean down to 5 L of oxygen by nasal cannula. Overall, she is feeling well and stable. She is being treated for an acute choked exacerbation. Noted the patient advanced COPD with chronic hypoxic respiratory failure and the patient has an FEV1 of 30% of predicted at baseline. The patient had some limited infiltration of the right lung base which could be increased pulmonary vessel markings versus pneumonia. Note that she is on no antibiotics for now. She remains on IV Solu-Medrol 60 mg every 6 hours. She is also on DuoNeb nebulized treatments [id number], and Perforomist and Pulmicort neb treatments twice a day. She has limited on accommodation of Spiriva and Symbicort on outpatient basis. No altered mentation. No encephalopathy. 07/19/2022 the patient remains on 5 L and her pulse ox is 98%. She remains on bronchodilators. She remains on IV Solu-Medrol 60 mg every 6 hours. No signs of any acute respiratory distress. No signs of any encephalopathy. Her blood sugar today is at 139. Noted the patient has limited on a combination of Spiri va and Symbicort on an outpatient basis. She is also on oxygen at 5 L/m nasal cannula. While in the hospital, she is a on accommodation Perforomist and Pulmicort updrafts twice a day, DuoNeb neb blotchiness 4 times a day and IV Solu-Medrol. Objective - Vital Signs Vital signs: Vital Signs Temp 97.6 F 07/19/22 04:00 Pulse 64 07/19/22 08:05 Resp 18 07/19/22 04:00 BP 157/81 07/19/22 04:00 Pulse Ox 96 07/19/22 07:39 FiO2 60 07/14/22 04:00 Intake & Output 07/18/22 07/19/22 07/19/22 18:59 06:59 18:59 Weight 76.657 kg Other: Voiding Method Bedside Commode Bedside Commode # Voids 1 2 - Exam The patient is calm and comfortable, not in acute respiratory distress. No conversational dyspnea or use of accessory muscles. he patient is currently on 5 L of oxygen by nasal cannula HEENT examination is grossly unremarkable. Neck supple. Full range of motion. No adenopathy thyromegaly or neck vein distention. Cardiovascular examination reveals regular rhythm rate. S1-S2 normal. No S3 or S4. No discernible murmur noted. Heart sounds are distant. Lungs reveal coarse bilateral inspiratory and expiratory rhonchi and wheezes. Breath sounds are diminished throughout. No crackles. Abdomen soft bowel sounds are heard. No masses or tenderness. Extremities are intact. No cyanosis clubbing or edema. Skin is without rash or lesion. Neurologic examination is brief but nonfocal. - Labs CBC & Chem 7: 07/18/22 07:46 07/18/22 07:46 Labs: Abnormal Lab Results - Last 24 Hours (Table) 07/18/22 07/18/22 07/18/22 Range/Units 11:32 16:30 20:28 POC Glucose (mg/dL) 130 H 196 H 245 H (70-110) mg/dL 07/19/22 Range/Units 06:04 POC Glucose (mg/dL) 139 H (70-110) mg/dL Assessment and Plan Plan: Acute on chronic hypoxemic and hypercapnic respiratory failure, secondary to severe/end stage COPD, with an FEV1 that is about 30% of predicted. The patient is clinically improving. Patient remains on bronchodilators and steroids. Chronic hypoxemic respiratory failure. The patient is on 5 L of oxygen at baseline Prior history of heavy tobacco use. History of hyperlipidemia. History of hypertension. History of CAD. History of angina pectoris. History of aortic stenosis. Chronic low back pain. History of anxiety/depression. Plan: Discontinued IV Solu-Medrol and start the patient a prednisone burst taper starting with 40 mg to be tapered by 10 mg every or days Continue same treatment on outpatient basis including Spiriva and Symbicort as maintenance and albuterol neb blotchiness on the clock Currently on 5 L of oxygen by nasal cannula which is her baseline We'll continue to follow, possible discharge today, if discharged home, she can follow up with Dr. Morgan
[2022-07-19 10:55] VITALS: BP 169/97
[2022-07-19 11:05] VITALS: PULSE 56
[2022-07-19 11:36] LABS: Glucose,Whole Blood 132 mg/dL (70-110)
--- NOTE | 2022-07-19 13:28 | P.DS ---
Providers Date of admission: 07/13/22 00:32 Expected date of discharge: 07/19/22 Attending physician: Seferino Crawford Consults: 07/13/22 04:14 Consult Physician Stat Consulting Provider: David Mckeon Consult Reason/Comments: acute hypoxic respiratory failure, copd Do you want consulting provider notified?: Yes 07/13/22 07:13 Consult Physician Urgent Consulting Provider: Júnior Morgan Consult Reason/Comments: COPD, Pna Do you want consulting provider notified?: Yes Primary care physician: Jeremy Ennis [facility] Course: Discharge diagnoses; Acute on chronic hypoxemic and hypercapnic respiratory failure Acute COPD exacerbation severe/end stage COPD, with an FEV1 that is about 30% of predicted. Chronic hypoxemic respiratory failure. Prior history of heavy tobacco use. History of hyperlipidemia. History of hypertension. History of CAD. History of angina pectoris. History of aortic stenosis. Chronic low back pain. History of anxiety/depression. Hospital course; 61-year-old female, who looks much older than her stated age, who has severe end stage COPD, with an FEV1 that's about 30% of predicted, is seen in the emergency room on July 12, with severe shortness of breath. The patient was apparently evaluated there, and admitted to the hospital. Currently, she is on BiPAP with settings of 10/5 and 60%. She's not receiving any IV fluids. Apparently in the emergency room, she was thinking in single words and cannot complete a sentence, and also was tripoding. She not been feeling well for a couple days prior to admission, and was getting progressively worse, so decided to come into the emergency room to be seen. In addition to COPD, she has a history of CAD, chest pain, respiratory failure, chronic hypoxemic respiratory failure, tracheobronchitis, aortic valve stenosis, chronic low back pain, DJD, and bilateral cataracts. She apparently does not smoke currently. She smoked heavily in the past. It should also be noted that the patient had her last PFT in 2016, and I suspect current PFTs which show much worse lung function. I saw her last in the office in April of this year. White count 12.6, with a normal hemoglobin, hematocrit, and platelet count. Sodium 133, potassium 4.9, chlorides 91, CO2 44, BUN 15, and creatinine 0.39. Chest x-ray revealed a pneumonic process in the right lower lobe. 07/17. Patient seen and examined. Currently on 5 L of oxygen. States she gets short of breath on exertion. 07/18. Patient seen and examined. Patient was desaturating on minimal exertion. Currently on 5 L of oxygen. Gets short of breath on exertion 07/19. Patient currently on 5 L of oxygen. States she feels much better. Pulmonology cleared the patient for discharge on tapering dose of prednisone PHYSICAL EXAMINATION: GENERAL: The patient is alert and oriented x3, not in any acute distress. Well developed, well nourished. HEENT: Pupils are round and equally reacting to light. EOMI. No scleral icterus. No conjunctival pallor. Normocephalic, atraumatic. No pharyngeal erythema. No thyromegaly. CARDIOVASCULAR: S1 and S2 present. No murmurs, rubs, or gallops. PULMONARY: Coarse breath sounds bilaterally, no wheezing or crackles. ABDOMEN: Soft, nontender, nondistended, normoactive bowel sounds. No palpable organomegaly. MUSCULOSKELETAL: No joint swelling or deformity. EXTREMITIES: No cyanosis, clubbing, or pedal edema. NEUROLOGICAL: Gross neurological examination did not reveal any focal deficits. SKIN: No rashes. Patient Condition at Discharge: Stable Plan - Discharge Summary Discharge Rx Participant: No New Discharge Prescriptions: New amLODIPine [Norvasc] 10 mg PO DAILY #30 tab predniSONE 10 mg PO DAILY #20 tab Continue Meloxicam [Mobic] 7.5 mg PO BID Albuterol Inhaler [Ventolin Hfa Inhaler] 2 puff INHALATION RT-Q4H PRN PRN Reason: Shortness Of Breath Tiotropium [place] [Spiriva Handihaler] 1 cap INHALATION RT-DAILY Aspirin 81 mg PO DAILY 30 Days #30 tab Metoprolol Tartrate [Lopressor] 25 mg PO BID 30 Days #60 tab Atorvastatin [Lipitor] 40 mg PO HS lisinopriL [Zestril] 30 mg PO DAILY Sertraline [Zoloft] 100 mg PO DAILY Budesonide/Formoterol Fumarate [Symbicort 160-4.5 Mcg Inhaler] 2 puff I NHALATION RT-BID Benzonatate [Tessalon Perles] 100 mg PO TID Discharge Medication List Albuterol Inhaler [Ventolin Hfa Inhaler] 2 puff INHALATION RT-Q4H PRN 04/09/22 [History] Atorvastatin [Lipitor] 40 mg PO HS 04/09/22 [History] Meloxicam [Mobic] 7.5 mg PO BID 04/09/22 [History] Tiotropium [place] [Spiriva Handihaler] 1 cap INHALATION RT-DAILY 04/09/22 [History] Aspirin 81 mg PO DAILY 30 Days #30 tab 04/12/22 [Rx] Metoprolol Tartrate [Lopressor] 25 mg PO BID 30 Days #60 tab 04/12/22 [Rx] Sertraline [Zoloft] 100 mg PO DAILY 06/15/22 [History] lisinopriL [Zestril] 30 mg PO DAILY 06/15/22 [History] Benzonatate [Tessalon Perles] 100 mg PO TID 07/13/22 [History] Budesonide/Formoterol Fumarate [Symbicort 160-4.5 Mcg Inhaler] 2 puff INHALATION RT-BID 07/13/22 [History] amLODIPine [Norvasc] 10 mg PO DAILY #30 tab 07/19/22 [Rx] predniSONE 10 mg PO DAILY #20 tab 07/19/22 [Rx] Follow up Appointment(s)/Referral(s): [facility], [NON-STAFF] - Júnior Morgan DO [Doctor of Osteopathic Medicine] - 07/25/22 1:15 pm Jeremy Ennis DO [Primary Care Provider] - 1-2 days Activity/Diet/Wound Care/Special Instructions: Patient requesting a new walker at discharge. Order in chart - if discharged on Monday call CM; if on Monday fax to [phone] (phone number: [phone]) Discharge Disposition: HOME SELF-CARE
--- NOTE | 2022-07-21 13:44 | CDI ---
Documentation Clarification Form Date: 07/21/2022 1:10:41 PM From: Angela Talbot Admit Date: 07/13/2022 12:32:00 AM Patient Name: Blanka Porras Visit Number: [id number] Discharge Date: 07/19/2022 4:18:00 PM ATTENTION: The Clinical Documentation Specialists (CDI) and [facility] Coding Staff appreciate your assistance in clarifying documentation. Please respond to the clarification below the line at the bottom and electronically sign. The CDI & [facility] Coding staff will review the response and follow-up if needed. Please note: Queries are made part of the Legal Health Record. If you have any questions, please contact the author of this message via ITS. Dr. Andres Dumont Right lower lobe pneumonia, with possible hospital acquired or gram negative is documented throughout the chart - ED note, H&P, Progress notes, and consult note, but is not noted in the Discharge Summary. Clarification is requested. History/Risk Factors: patient is a 61 year old female who presented for increasing shortness of breath. Patient has a history of COPD, HTN, Chronic hypercapnic respiratory failure, is on home oxygen 4L, aortic valve stenosis, anxiety, depression, and former smoker. Clinical Indicators: patient presented for increasing shortness of breath. Speaking in single word sentences, tachypnea, and using accessory muscles for breathing, and has confusion. Patient has been using BIPAP and High flow oxygen. Medical History and Physical 07/13/22: cardiomegaly with clear lungs, hyper inflated chest, and right lower lobe consolidation suspicious for pneumonia by well tender also. Assessment: right lower lobe pneumonia, HCAP suspected, COPD acute exacerbation, acute and chronic hypoxic respiratory failure Progress note: 07/14/22: her chest x-ray clearly shows pneumonia in the right lung Progress note 07/15/22: right lower lobe pneumonia possibly hospital acquired or gram-negative Chest xray 07/12/22: There is some right lower lobe pneumonia which appears new compared to old exam Chest xray 07/18/22: no evidence for acute pulmonary disease Labs: WBC: 12.6 Sodium 133 carbon dioxide 44 covid, influenza a and b, and rsv not detected Vitals: T 97.4 P 107 Resp Rate 33 BP 150/121 O2- 99 on 15L non rebreather Treatment: patient is on cefepime and IV vancomycin, BIPAP, high flow, steroids, iv solu-medrol, bronchodilator, then placed on azithromycin, and rocephin Please clarify if the Pneumonia is: [ x] Pneumonia HCAP suspect gram negative confirmed, remains under treatment [ ] Pneumonia HCAP suspect gram negative confirmed, resolved [ ] Pneumonia ruled out [ ] Other condition, please specify [ ] Unable to determine MTDD
== END 2022-07-19 16:18 | disposition home health service (06) | DRG 189 ==
LOC: EC 23:05 → 1SOBS 07-13 00:32 → 3SCARD 07-13 01:05
PROVIDERS: ADMIT Hospitalist; ATTEND Hospitalist
PROC: 5A0935A Assistance with Respiratory Ventilation, Less than 24 Consecutive Hours, High Flow/Velocity Cannula (ICD-10-PCS; principal; 2022-07-13)
PROC: 5A09357 Assistance with Respiratory Ventilation, Less than 24 Consecutive Hours, Continuous Positive Airway Pressure (ICD-10-PCS; principal; 2022-07-13)
DX: J96.21 Acute and chronic respiratory failure with hypoxia (principal); J15.6 Pneumonia due to other Gram-negative bacteria; G92.8 Other toxic encephalopathy; J44.1 Chronic obstructive pulmonary disease with (acute) exacerbation; J44.0 Chronic obstructive pulmonary disease with (acute) lower respiratory infection; J96.22 Acute and chronic respiratory failure with hypercapnia; Y95 Nosocomial condition; D72.829 Elevated white blood cell count, unspecified; I11.9 Hypertensive heart disease without heart failure; I25.10 Atherosclerotic heart disease of native coronary artery without angina pectoris; I35.0 Nonrheumatic aortic (valve) stenosis; G89.29 Other chronic pain; F41.9 Anxiety disorder, unspecified; E66.9 Obesity, unspecified; Z68.30 Body mass index [BMI] 30.0-30.9, adult; F32.A Depression, unspecified; M19.90 Unspecified osteoarthritis, unspecified site; M51.36 Other intervertebral disc degeneration, lumbar region; E78.5 Hyperlipidemia, unspecified; Z20.822 Contact with and (suspected) exposure to COVID-19; Z99.81 Dependence on supplemental oxygen; Z71.3 Dietary counseling and surveillance; Z87.891 Personal history of nicotine dependence; Z79.899 Other long term (current) drug therapy; Z79.82 Long term (current) use of aspirin; Z79.51 Long term (current) use of inhaled steroids; Z79.1 Long term (current) use of non-steroidal anti-inflammatories (NSAID); Z87.01 Personal history of pneumonia (recurrent)
CPT/HCPCS: 36415; 71045; 71046; 80048; 80053; 83036; 83690; 83735; 83880; 84145; 84484; 85025; 85027; 85610; 85730; 87636; 93005; 94640; 94660; 94760; 96365; 96366; 96367; 96368; 96375; 99291

== ENCOUNTER 2022-09-23 12:00 | Emergency (ER) | payer MEDICARE, OTHER ==
[2022-09-23] MEDS ORDERED: methylPREDNISolone SOD SUCCI 125 MG/2 ML VIAL IV STA (12:14)
[2022-09-23] MEDS ORDERED: SODIUM CHLORIDE 0.9% 1,000 ML IV STA (12:14)
[2022-09-23] MEDS ORDERED: IPRATROPIUM-ALBUTEROL 3 ML NEB INHALATION STA (12:14)
--- NOTE | 2022-09-23 12:14 | ED ---
SOB HPI - General Chief Complaint: Shortness of Breath Stated Complaint: chest pain Time Seen by Provider: 09/23/22 12:08 Source: EMS, RN notes reviewed, old records reviewed Mode of arrival: EMS Limitations: no limitations - History of Present Illness Initial Comments: This is a 62-year-old female the ER today. Patient presents today for evaluation regards to chest pain and asthma persistent here in the emergency department with severe weakness and anxiety lightheadedness and chest pain. Patient's taking all medications with no help significantly worsening without fever MD Complaint: shortness of breath, cough -: hour(s) Radiation: back Severity: moderate Severity scale (1-10): 6 Quality: aching Consistency: constant Improves With: nothing Worsens With: nothing Context: recent URI Associated Symptoms: chest pain, syncope - Related Data Home Medications Medication Instructions Recorded Confirmed Albuterol Inhaler [Ventolin Hfa 2 puff INHALATION RT-Q4H PRN 04/09/22 09/23/22 Inhaler] Atorvastatin [Lipitor] 40 mg PO HS 04/09/22 09/23/22 Meloxicam [Mobic] 7.5 mg PO BID 04/09/22 09/23/22 Tiotropium Elizabeth [Spiriva 1 cap INHALATION RT-DAILY 04/09/22 09/23/22 Handihaler] Sertraline [Zoloft] 100 mg PO DAILY 06/15/22 09/23/22 lisinopriL [Zestril] 30 mg PO DAILY 06/15/22 09/23/22 Budesonide/Formoterol Fumarate 2 puff INHALATION RT-BID 07/13/22 09/23/22 [Symbicort 160-4.5 Mcg Inhaler] Ipratropium-Albuterol Nebulize 3 ml INHALATION RT-QID PRN 09/23/22 09/23/22 [Duoneb 0.5 mg-3 mg/3 ml Soln] Metoprolol Tartrate [Lopressor] 25 mg PO DAILY 09/23/22 09/23/22 Previous Rx's Medication Instructions Recorded Aspirin 81 mg PO DAILY 30 Days #30 tab 04/12/22 amLODIPine [Norvasc] 10 mg PO DAILY #30 tab 07/19/22 Azithromycin [Zithromax] 500 mg PO DAILY #5 tab 09/23/22 predniSONE 50 mg PO DAILY #5 tab 09/23/22 Allergies Allergy/AdvReac Type Severity Reaction Status Date / Time No Known Allergies Allergy Verified 09/23/22 13:14 Review of Systems ROS Statement: Those systems with pertinent positive or pertinent negative responses have been documented in the HPI. ROS Other: All systems not noted in ROS Statement are negative. Past Medical History Past Medical History: Coronary Artery Disease (CAD), Chest Pain / Angina, COPD, Respiratory Disorder Additional Past Medical History / Comment(s): Chronic hypercapnic respiratory failure, home oxygen at 4L/NC ATC, tracheobronchitis, aortic valve stenosis, chronic low back pain, DJD History of Any Multi-Drug Resistant Organisms: None Reported Past Surgical History: Breast Surgery, Tubal Ligation Additional Past Surgical History / Comment(s): Bilateral breast reductions, bilateral cataract removals. Past Anesthesia/Blood Transfusion Reactions: No Reported Reaction Past Psychological History: Anxiety, Depression Smoking Status: Former smoker - Past Family History Father History Unknown: Yes Mother Family Medical History: Congestive Heart Failure (CHF), Diabetes Mellitus General Exam General appearance: alert, in no apparent distress Head exam: Present: atraumatic, normocephalic, normal inspection Eye exam: Present: normal appearance, PERRL, EOMI. Absent: scleral icterus, conjunctival injection, periorbital swelling ENT exam: Present: normal exam, mucous membranes moist Neck exam: Present: normal inspection. Absent: tenderness, meningismus, lympha denopathy Respiratory exam: Present: normal lung sounds bilaterally. Absent: respiratory distress, wheezes, rales, rhonchi, stridor Cardiovascular Exam: Present: regular rate, normal rhythm, normal heart sounds. Absent: systolic murmur, diastolic murmur, rubs, gallop, clicks GI/Abdominal exam: Present: soft, normal bowel sounds. Absent: distended, tenderness, guarding, rebound, rigid Extremities exam: Present: normal inspection, full ROM, normal capillary refill. Absent: tenderness, pedal edema, joint swelling, calf tenderness Back exam: Present: normal inspection Neurological exam: Present: alert, oriented X3, CN II-XII intact Psychiatric exam: Present: normal affect, normal mood Skin exam: Present: warm, dry, intact, normal color. Absent: rash Course Vital Signs 09/23/22 09/23/22 09/23/22 12:04 12:10 12:40 Temperature 98.2 F Pulse Rate 87 80 Respiratory 26 H 26 H 24 Rate Blood Pressure 190/117 148/85 O2 Sat by Pulse 95 96 Oximetry 09/23/22 09/23/22 13:22 14:43 Temperature 98.7 F Pulse Rate 70 75 Respiratory 22 Rate Blood Pressure 138/70 O2 Sat by Pulse 98 Oximetry - Reevaluation(s) Reevaluation #1: 09/23/22 21:13 Medical records reviewed Reevaluation #2: 09/23/22 21:13 Patient symptoms are dramatically improved here Reevaluation #3: 09/23/22 21:13 Patient informed of results questions answered Reevaluation #4: 09/23/22 21:13 Was pt. sent in by a medical professional or institution? @ -no Did you speak to anyone other than the patient for history? @ -no Did you review nursing and triage notes? @ -agree Were old charts reviewed? @ -no Differential Diagnosis? @ -prior EKG interpreted by me (3pts min.)? @ -yes X-rays interpreted by me (1pt min.)? @ -yes CT interpreted by me (1pt min.)? @ -no U/S interpreted by me (1pt. min.)? @ -no What testing was considered but not performed? (CT, X-rays, U/S, labs)? Why? @ -no What meds were considered but not given? Why? @ -no Did you discuss the management of the patient with other professionals? @ -no Did you reconcile home meds? @ -no Was smoking cessation discussed for >3mins.? @ -no Was critical care preformed (if so, how long)? @ -no Were there social determinants of health that impacted care today? How? (Homelessness, low income, unemployed, alcoholism, drug addiction, transportation, low edu. Level, literacy, decrease access to med. care, [facility], rehab)? @ -no Was there de-escalation of care discussed even if they declined? (Discuss DNR or withdrawal of care, Hospice)? @ -no What co-morbidities impacted this encounter? (DM, HTN, Smoking, COPD, CAD, Cancer, CVA, Hep., AIDS, mental health diagnosis, sleep apnea, morbid obesity)? @ -none Was patient admitted / discharged? @ -62 female to the emergency department for eval should've cough congestion COPD exacerbation with asthma. Symptoms improved and patient can be discharged home Undiagnosed new problem with uncertain prognosis? @ -no Drug Therapy requiring intensive monitoring for toxicity (Heparin, Nitro, Insulin, Cardizem)? @ -no Were any procedures done? @ -no Diagnosis/symptom? @ -COPD exacerbation Acute, or Chronic, or Acute on Chronic? @ -Acute on chronic Uncomplicated (without systemic symptoms) or Complicated (systemic symptoms)? @ -uncomplicated Side effects of treatment? @ -no Exacerbation, Progression, or Severe Exacerbation] @ -no Poses a threat to life or bodily function? @ -no Reevaluation #5: Differential Dyspnea: Coronary syndrome, arrhythmia, tamponade, asthma, COPD, pulmonary embolism, pneumonia, pneumothorax, pulmonary effusion, anaphylaxis, diabetic ketoacidosis, flailed chest, pulmonary contusion, diaphragmatic rupture, anemia, neuromuscular, this is not meant to be an all-inclusive list. Medical Decision Making - Medical Decision Making 62-year-old female with asthma exacerbation, patient refuses us today once discharged patient can be discharged - Lab Data Result diagrams: 09/23/22 12:20 09/23/22 12:20 Lab Results 09/23/22 09/23/22 09/23/22 Range/Units 12:20 12:20 12:20 WBC 10.2 (3.8-10.6) k/uL RBC 4.06 (3.80-5.40) m/uL Hgb 11.9 (11.4-16.0) gm/dL Hct 37.2 (34.0-46.0) % MCV 91.7 (80.0-100.0) fL MCH 29.4 (25.0-35.0) pg MCHC 32.1 (31.0-37.0) g/dL RDW 12.9 (11.5-15.5) % Plt Count 226 (150-450) k/uL MPV 7.1 Neutrophils % 79 % Lymphocytes % 11 % Monocytes % 5 % Eosinophils % 3 % Basophils % 0 % Neutrophils # 8.0 H (1.3-7.7) k/uL Lymphocytes # 1.1 (1.0-4.8) k/uL Monocytes # 0.5 (0-1.0) k/uL Eosinophils # 0.3 (0-0.7) k/uL Basophils # 0.0 (0-0.2) k/uL PT 9.8 (9.0-12.0) sec INR 0.9 (<1.2) APTT 25.8 (22.0-30.0) sec Sodium 130 L (137-145) mmol/L Potassium 4.8 (3.5-5.1) mmol/L Chloride 89 L (98-107) mmol/L Carbon Dioxide 38 H (22-30) mmol/L Anion Gap 3 mmol/L BUN 14 (7-17) mg/dL Creatinine 0.44 L (0.52-1.04) mg/dL Est GFR (CKD-EPI)AfAm >90 (>60 ml/min/1.73 sqM) Est GFR (CKD-EPI)NonAf >90 (>60 ml/min/1.73 sqM) Glucose 110 H (74-99) mg/dL Calcium 8.7 (8.4-10.2) mg/dL Magnesium 2.1 (1.6-2.3) mg/dL Total Bilirubin 0.4 (0.2-1.3) mg/dL AST 33 (14-36) U/L ALT 14 (4-34) U/L Alkaline Phosphatase 95 (38-126) U/L Troponin I (0.000-0.034) ng/mL NT-Pro-B Natriuret Pep pg/mL Total Protein 7.0 (6.3-8.2) g/dL Albumin 3.8 (3.5-5.0) g/dL 09/23/22 09/23/22 Range/Units 12:20 12:20 WBC (3.8-10.6) k/uL RBC (3.80-5.40) m/uL Hgb (11.4-16.0) gm/dL Hct (34.0-46.0) % MCV (80.0-100.0) fL MCH (25.0-35.0) pg MCHC (31.0-37.0) g/dL RDW (11.5-15.5) % Plt Count (150-450) k/uL MPV Neutrophils % % Lymphocytes % % Monocytes % % Eosinophils % % Basophils % % Neutrophils # (1.3-7.7) k/uL Lymphocytes # (1.0-4.8) k/uL Monocytes # (0-1.0) k/uL Eosinophils # (0-0.7) k/uL Basophils # (0-0.2) k/uL PT (9.0-12.0) sec INR (<1.2) APTT (22.0-30.0) sec Sodium (137-145) mmol/L Potassium (3.5-5.1) mmol/L Chloride (98-107) mmol/L Carbon Dioxide (22-30) mmol/L Anion Gap mmol/L BUN (7-17) mg/dL Creatinine (0.52-1.04) mg/dL Est GFR (CKD-EPI)AfAm (>60 ml/min/1.73 sqM) Est GFR (CKD-EPI)NonAf (>60 ml/min/1.73 sqM) Glucose (74-99) mg/dL Calcium (8.4-10.2) mg/dL Magnesium (1.6-2.3) mg/dL Total Bilirubin (0.2-1.3) mg/dL AST (14-36) U/L ALT (4-34) U/L Alkaline Phosphatase (38-126) U/L Troponin I 0.012 (0.000-0.034) ng/mL NT-Pro-B Natriuret Pep 236 pg/mL Total Protein (6.3-8.2) g/dL Albumin (3.5-5.0) g/dL - EKG Data -: EKG Interpreted by Me (EKG show nsr 79 NC 139 QRS 101 QTc 373) - Radiology Data Radiology results: report reviewed (Chest x-rays negative for acute dz), image reviewed Disposition Clinical Impression: COPD (chronic obstructive pulmonary disease), COPD with acute exacerbation, Asthma with acute exacerbation Disposition: HOME SELF-CARE Condition: Fair Instructions (If sedation given, give patient instructions): Acute Bronchitis (ED), Chronic Bronchitis (ED) Prescriptions: predniSONE 50 mg PO DAILY #5 tab Azithromycin [Zithromax] 500 mg PO DAILY #5 tab Is patient prescribed a controlled substance at d/c from ED?: No Referrals: Júnior Morgan DO [Doctor of Osteopathic Medicine] - 1-2 days Jeremy Ennis DO [Primary Care Provider] - 1-2 days Time of Disposition: 14:15
[2022-09-23 12:46] LABS: Basophils % (A) 0 %; Eosinophils # (A) 0.3 k/uL (0-0.7); Eosinophils % (A) 3 %; HCT 37.2 % (34.0-46.0); HGB 11.9 gm/dL (11.4-16.0); Lymphocytes # (A) 1.1 k/uL (1.0-4.8); Lymphocytes % (A) 11 %; MCH 29.4 pg (25.0-35.0); MCHC 32.1 g/dL (31.0-37.0); MCV 91.7 fL (80.0-100.0); Mean Platelet Volume 7.1; Monocytes # (A) 0.5 k/uL (0-1.0); Monocytes % (A) 5 %; Neutrophils % (A) 79 %; Platelet Count 226 k/uL (150-450); RBC 4.06 m/uL (3.80-5.40); RDW 12.9 % (11.5-15.5); WBC 10.2 k/uL (3.8-10.6)
--- NOTE | 2022-09-23 12:58 | XR ---
EXAMINATION TYPE: XR chest 1V portable DATE OF EXAM: 09/23/2022 COMPARISON: Chest x-ray July 18, 2022 HISTORY: Shortness of breath TECHNIQUE: Single AP portable frontal view of the chest is obtained. FINDINGS: There is some chronic parenchymal changes and slightly elevated left hemidiaphragm. There is no suspicious new focal air space opacity, pleural effusion, or pneumothorax seen. The cardiac si lhouette size is stable and mildly enlarged. The osseous structures are intact. IMPRESSION: Mild cardiomegaly and chronic parenchymal changes without acute pulmonary process. No si gnificant change from most recent prior.
[2022-09-23 13:04] LABS: ALT 14 U/L (4-34); AST 33 U/L (14-36); African American GFR (CKD) >90 (>60 ml/min/1.73 sqM); Albumin 3.8 g/dL (3.5-5.0); Alkaline Phosphatase 95 U/L (38-126); Anion Gap 3 mmol/L; Blood Urea Nitrogen 14 mg/dL (7-17); Calcium 8.7 mg/dL (8.4-10.2); Carbon Dioxide 38 mmol/L (22-30); Chloride 89 mmol/L (98-107); Glucose 110 mg/dL (74-99); Magnesium 2.1 mg/dL (1.6-2.3); Non-African American GFR(CKD) >90 (>60 ml/min/1.73 sqM); Potassium 4.8 mmol/L (3.5-5.1); Sodium 130 mmol/L (137-145); Total Bilirubin 0.4 mg/dL (0.2-1.3)
[2022-09-23 13:10] LABS: INR 0.9 (<1.2); Partial Thromboplastin Time 25.8 sec (22.0-30.0); Prothrombin Time 9.8 sec (9.0-12.0)
[2022-09-23] MEDS ORDERED: NALOXONE 0.4 MG/ML 1 ML VIAL IVP PRN (14:23)
[2022-09-23] MEDS ORDERED: AZITHROMYCIN 500 MG TAB PO STA (14:25)
[2022-09-23 14:44] VITALS: BP 138/70; PULSE 75; RESP 22; TEMP 98.7
[2022-09-23] MEDS ORDERED: methylPREDNISolone SOD SUCCI 125 MG/2 ML VIAL IV SCH (18:00)
== END 2022-09-23 14:56 | disposition home or self-care (01) ==
LOC: EC 12:00
DX: J44.1 Chronic obstructive pulmonary disease with (acute) exacerbation (principal); I25.10 Atherosclerotic heart disease of native coronary artery without angina pectoris; Z87.891 Personal history of nicotine dependence; F41.9 Anxiety disorder, unspecified; F32.A Depression, unspecified; Z79.51 Long term (current) use of inhaled steroids; Z79.899 Other long term (current) drug therapy
CPT/HCPCS: 36415; 94640; 93005; 83880; 80053; 83735; 84484; 85025; 85610; 85730; 71045; 99285; 96374; 96361 ×2; J2930

== ENCOUNTER 2022-11-19 19:42 | Inpatient (IN) | payer MEDICARE, OTHER ==
--- NOTE | 2022-11-19 20:01 | ED ---
General Adult HPI - General Chief complaint: Shortness of Breath Stated complaint: SOB Time Seen by Provider: 11/19/22 19:50 Source: patient, EMS Mode of arrival: EMS Limitations: no limitations - History of Present Illness Initial comments: Patient presents to the ED by ambulance for evaluation complaining of having a "COPD flare" for the past 2 hours or so. Patient states that her dyspnea began while she was sitting at home and watching television. Patient states that she has a history of COPD, and she is on 5 L of home O2 regularly. Patient states that she administered "updraft treatments" herself with minimal relief. Patient was also given a neb treatment by EMS, and she reports getting some relief from the treatment she received in the ambulance. Patient denies being on steroids treatment currently. Patient denies having any pain, fever or chills, headache, focal neuro deficit, chest pain or pressure, cough or cold symptoms, palpit ations, dizziness, abdominal pain, nausea/vomiting/diarrhea, bloody or melanotic stool, dysuria or urinary symptoms, decreased urine output, leg or calf swelling or pain, or any other symptoms or complaints. - Related Data Home Medications Medication Instructions Recorded Confirmed Albuterol Inhaler [Ventolin Hfa 2 puff INHALATION RT-Q4H PRN 04/09/22 09/23/22 Inhaler] Atorvastatin [Lipitor] 40 mg PO HS 04/09/22 09/23/22 Meloxicam [Mobic] 7.5 mg PO BID 04/09/22 09/23/22 Tiotropium [place] [Spiriva 1 cap INHALATION RT-DAILY 04/09/22 09/23/22 Handihaler] Sertraline [Zoloft] 100 mg PO DAILY 06/15/22 09/23/22 lisinopriL [Zestril] 30 mg PO DAILY 06/15/22 09/23/22 Budesonide/Formoterol Fumarate 2 puff INHALATION RT-BID 07/13/22 09/23/22 [Symbicort 160-4.5 Mcg Inhaler] Ipratropium-Albuterol Nebulize 3 ml INHALATION RT-QID PRN 09/23/22 09/23/22 [Duoneb 0.5 mg-3 mg/3 ml Soln] Metoprolol Tartrate [Lopressor] 25 mg PO DAILY 09/23/22 09/23/22 Previous Rx's Medication Instructions Recorded Aspirin 81 mg PO DAILY 30 Days #30 tab 04/12/22 amLODIPine [Norvasc] 10 mg PO DAILY #30 tab 07/19/22 Azithromycin [Zithromax] 500 mg PO DAILY #5 tab 09/23/22 predniSONE 50 mg PO DAILY #5 tab 09/23/22 Allergies Allergy/AdvReac Type Severity Reaction Status Date / Time No Known Allergies Allergy Verified 09/23/22 13:14 Review of Systems ROS Statement: Those systems with pertinent positive or pertinent negative responses have been documented in the HPI. ROS Other: All systems not noted in ROS Statement are negative. Past Medical History Past Medical History: Coronary Artery Disease (CAD), Chest Pain / Angina, COPD, Respiratory Disorder Additional Past Medical History / Comment(s): Chronic hypercapnic respiratory failure, home oxygen at 4L/[place] ATC, tracheobronchitis, aortic valve stenosis, chronic low back pain, DJD History of Any Multi-Drug Resistant Organisms: None Reported Past Surgical History: Breast Surgery, Tubal Ligation Additional Past Surgical History / Comment(s): Bilateral breast reductions, bilateral cataract removals. Past Anesthesia/Blood Transfusion Reactions: No Reported Reaction Past Psychological History: Anxiety, Depression Smoking Status: Former smoker - Past Family History Father History Unknown: Yes Mother Family Medical History: Congestive Heart Failure (CHF), Diabetes Mellitus General Exam Limitations: no limitations General appearance: alert Head exam: Present: normocephalic Eye exam: Present: normal appearance ENT exam: Present: mucous membranes moist Neck exam: Present: other (Trachea is in midline) Respiratory exam: Present: other (Decreased breath sounds bilaterally; expiratory wheezes; mild respiratory distress). Absent: rales, rhonchi, stridor Cardiovascular Exam: Present: regular rate, normal rhythm, normal heart sounds, other (Normal radial pulses bilaterally) GI/Abdominal exam: Present: soft. Absent: distended, tenderness, guarding Extremities exam: Present: other (Negative Homans sign bilaterally). Absent: tenderness, pedal edema, calf tenderness Neurological exam: Present: alert, oriented X3 Psychiatric exam: Present: normal affect, normal mood Skin exam: Present: warm, dry, intact, normal color Course Vital Signs 11/19/22 11/19/22 11/19/22 19:46 20:15 20:22 Temperature 98.6 F Pulse Rate 94 91 92 Respiratory 18 Rate Blood Pressure 98/65 O2 Sat by Pulse 97 Oximetry 11/19/22 11/19/22 20:49 20:50 Temperature Pulse Rate Respiratory 24 Rate Blood Pressure 96/65 O2 Sat by Pulse 97 Oximetry - Reevaluation(s) Reevaluation #1: 11/19/22 21:43 Case, H&P, test results and ED management thus far were discussed with LITERARY WRITER Vanna Chacon. She accepts hospital admission on behalf of herself and Dr. Crawford. She agrees with cardiology and pulmonology consultations. She has no further recommendations at this time. 11/19/22 21:52 Patient reports improvement in her dyspnea with the DuoNeb treatment that she was given in the ED. Patient denies development of any new symptoms while in the ED. Patient is aware of her test results, and she agrees with hospital admission at this time. EKG Findings - EKG Comments: EKG Findings:: ED physician interpretation (interpreted by me): Normal sinus rhythm, ventricular rate of 94 bpm, no ectopy, normal CA and QRS intervals, n ormal QT interval, leftward axis, nonspecific T-wave abnormality Medical Decision Making - Medical Decision Making Was pt. sent in by a medical professional or institution (, [facility], LITERARY WRITER, urgent care, hospital, or custodial...) When possible be specific @ -No Did you speak to anyone other than the patient for history (EMS, parent, family, police, friend...)? What history was obtained from this source @ -No Did you review nursing and triage notes (agree or disagree)? Why? @ -I reviewed and agree with nursing and triage notes Were old charts reviewed (outside hosp., previous admission, EMS record, old EKG , old radiological studies, urgent care reports/EKG's, custodial records)? Report findings @ -No old charts were reviewed Differential Diagnosis (chest pain, altered mental status, abdominal pain women, abdominal pain men, vaginal bleeding, weakness, fever, dyspnea, syncope, headache, dizziness, GI bleed, back pain, seizure, CVA, palpatations, mental health, musculoskeletal)? @ -Differential Dyspnea: Coronary syndrome, arrhythmia, tamponade, asthma, COPD, pulmonary embolism, pneumonia, pneumothorax, pulmonary effusion, anaphylaxis, anemia, neuromuscular, this is not meant to be an all-inclusive list. EKG interpreted by me (3pts min.). @ -As above X-rays interpreted by me (1pt min.). @ -Chest x-ray was reviewed myself and shows no acute abnormality. I agree with the radiologist's interpretation as above. CT interpreted by me (1pt min.). @ -None done U/S interpreted by me (1pt. min.). @ -None done What testing was considered but not performed or refused? (CT, X-rays, U/S, labs)? Why? @ -None What meds were considered but not given or refused? Why? @ -None Did you discuss the management of the patient with other professionals (professionals i.e. , PA, LITERARY WRITER, lab, RT, psych nurse, home health care social worker, keycase assembler, teacher, duty officer, pillowcase turner)? Give summary @ -No Was smoking cessation discussed for >3mins.? @ -No Was critical care preformed (if so, how long)? @ -Yes, for 50 minutes. Were there social determinants of health that impacted care today? How? (Ho melessness, low income, unemployed, alcoholism, drug addiction, transportation, low edu. Level, literacy, decrease access to med. care, skilled nursing, rehab)? @ -No Was there de-escalation of care discussed even if they declined (Discuss DNR or withdrawal of care, Hospice)? DNR status @ -No What co-morbidities impacted this encounter? (DM, HTN, Smoking, COPD, CAD, Cancer, CVA, ARF, Chemo, Hep., AIDS, mental health diagnosis, sleep apnea, morbid obesity)? @ -COPD Was patient admitted / discharged? Hospital course, mention meds given and route, prescriptions, significant lab abnormalities, going to OR and other pertinent info. @ -Patient was treated in the ED with a DuoNeb treatment with reported improvement in her dyspnea. Patient was also treated for her COPD exacerbation with IV Solu-Medrol. Patient's troponin is noted to be elevated. Patient denies having any chest pain. Patient's d-dimer is negative. Patient has been started on a heparin IV drip and serial troponins have been ordered. Case was discussed with LITERARY WRITER Vanna Chacon who was accepted admission on behalf of herself and Dr. Crawford. Cardiology and pulmonology consultations have been placed. Patient is aware of her test results, and she agrees with hospital admission at this time. Undiagnosed new problem with uncertain prognosis? @ -No Drug Therapy requiring intensive monitoring for toxicity (Heparin, Nitro, Insulin, Cardizem)? @ -No Were any procedures done? @ -No Diagnosis/symptom? @ -COPD exacerbation Acute, or Chronic, or Acute on Chronic? @ -Acute on chronic Uncomplicated (without systemic symptoms) or Complicated (systemic symptoms)? @ -default Side effects of treatment? @ -No Exacerbation, Progression, or Severe Exacerbation? @ -No Poses a threat to life or bodily function? How? (Chest pain, [place], [place], pneumonia, PE, COPD, DKA, ARF, appy, cholecystitis, CVA, Diverticulitis, Homicidal, Suicidal, threat to staff... and all critical care pts) @ -Yes, deterioration may cause a threat to life. Diagnosis/symptom? @ -Elevated troponin Acute, or Chronic, or Acute on Chronic? @ -default Uncomplicated (without systemic symptoms) or Complicated (systemic symptoms)? @ -default Side effects of treatment? @ -none Exacerbation, Progression, or Severe Exacerbation] @ -no Poses a threat to life or bodily function? @ -Yes. Should the patient's elevated troponin be due to [place], this certainly could pose a threat to life. - Lab Data Result diagrams: 11/19/22 19:45 11/19/22 19:45 Lab Results 11/19/22 11/19/22 11/19/22 Range/Units 19:45 19:45 19:45 WBC 10.5 (3.8-10.6) k/uL RBC 3.93 (3.80-5.40) m/uL Hgb 12.1 (11.4-16.0) gm/dL Hct 37.6 (34.0-46.0) % MCV 95.8 (80.0-100.0) fL MCH 30.7 (25.0-35.0) pg MCHC 32.0 (31.0-37.0) g/dL RDW 13.5 (11.5-15.5) % Plt Count 189 (150-450) k/uL MPV 7.6 Neutrophils % 73 % Lymphocytes % 17 % Monocytes % 7 % Eosinophils % 2 % Basophils % 0 % Neutrophils # 7.7 (1.3-7.7) k/uL Lymphocytes # 1.8 (1.0-4.8) k/uL Monocytes # 0.7 (0-1.0) k/uL Eosinophils # 0.2 (0-0.7) k/uL Basophils # 0.0 (0-0.2) k/uL Hypochromasia Slight PT 9.6 (9.0-12.0) sec INR 0.9 (<1.2) APTT 19.7 L (22.0-30.0) sec D-Dimer (<0.60) mg/L FEU Sodium 138 (137-145) mmol/L Potassium 4.2 (3.5-5.1) mmol/L Chloride 96 L (98-107) mmol/L Carbon Dioxide 40 H (22-30) mmol/L Anion Gap 2 mmol/L BUN 20 H (7-17) mg/dL Creatinine 0.70 (0.52-1.04) mg/dL Est GFR (CKD-EPI)AfAm >90 (>60 ml/min/1.73 sqM) Est GFR (CKD-EPI)NonAf >90 (>60 ml/min/1.73 sqM) Glucose 159 H (74-99) mg/dL Calcium 8.5 (8.4-10.2) mg/dL Total Bilirubin 0.2 (0.2-1.3) mg/dL AST 24 (14-36) U/L ALT 18 (4-34) U/L Alkaline Phosphatase 81 (38-126) U/L Troponin I (0.000-0.034) ng/mL NT-Pro-B Natriuret Pep 432 pg/mL Total Protein 6.0 L (6.3-8.2) g/dL Albumin 3.4 L (3.5-5.0) g/dL 11/19/22 11/19/22 Range/Units 19:45 19:45 WBC (3.8-10.6) k/uL RBC (3.80-5.40) m/uL Hgb (11.4-16.0) gm/dL Hct (34.0-46.0) % MCV (80.0-100.0) fL MCH (25.0-35.0) pg MCHC (31.0-37.0) g/dL RDW (11.5-15.5) % Plt Count (150-450) k/uL MPV Neutrophils % % Lymphocytes % % Monocytes % % Eosinophils % % Basophils % % Neutrophils # (1.3-7.7) k/uL Lymphocytes # (1.0-4.8) k/uL Monocytes # (0-1.0) k/uL Eosinophils # (0-0.7) k/uL Basophils # (0-0.2) k/uL Hypochromasia PT (9.0-12.0) sec INR (<1.2) APTT (22.0-30.0) sec D-Dimer 0.53 (<0.60) mg/L FEU Sodium (137-145) mmol/L Potassium (3.5-5.1) mmol/L Chloride (98-107) mmol/L Carbon Dioxide (22-30) mmol/L Anion Gap mmol/L BUN (7-17) mg/dL Creatinine (0.52-1.04) mg/dL Est GFR (CKD-EPI)AfAm (>60 ml/min/1.73 sqM) Est GFR (CKD-EPI)NonAf (>60 ml/min/1.73 sqM) Glucose (74-99) mg/dL Calcium (8.4-10.2) mg/dL Total Bilirubin (0.2-1.3) mg/dL AST (14-36) U/L ALT (4-34) U/L Alkaline Phosphatase (38-126) U/L Troponin I 0.234 H* (0.000-0.034) ng/mL NT-Pro-B Natriuret Pep pg/mL Total Protein (6.3-8.2) g/dL Albumin (3.5-5.0) g/dL - Radiology Data Chest x-ray: Mild cardiomegaly and chronic parenchymal changes without acute pulmonary process. No significant change from most recent prior. Critical Care Time Critical Care Time: Yes Total Critical Care Time: 50 Disposition Clinical Impression: COPD exacerbation, Dyspnea, Elevated troponin Disposition: ADMITTED IP TO THIS [facility] Condition: Stable Is patient prescribed a controlled substance at d/c from ED?: No Referrals: Jeremy Ennis DO [Primary Care Provider] - 1-2 days Time of Disposition: 21:43
[2022-11-19] MEDS ORDERED: methylPREDNISolone SOD SUCCI 125 MG/2 ML VIAL IV STA (20:08)
[2022-11-19] MEDS ORDERED: IPRATROPIUM-ALBUTEROL 3 ML NEB INHALATION STA (20:08)
[2022-11-19 20:28] LABS: ALT 18 U/L (4-34); AST 24 U/L (14-36); African American GFR (CKD) >90 (>60 ml/min/1.73 sqM); Albumin 3.4 g/dL (3.5-5.0); Alkaline Phosphatase 81 U/L (38-126); Anion Gap 2 mmol/L; Basophils % (A) 0 %; Blood Urea Nitrogen 20 mg/dL (7-17); Calcium 8.5 mg/dL (8.4-10.2); Carbon Dioxide 40 mmol/L (22-30); Chloride 96 mmol/L (98-107); Eosinophils # (A) 0.2 k/uL (0-0.7); Eosinophils % (A) 2 %; Glucose 159 mg/dL (74-99); HCT 37.6 % (34.0-46.0); HGB 12.1 gm/dL (11.4-16.0); Hypochromasia Slight; Lymphocytes # (A) 1.8 k/uL (1.0-4.8); Lymphocytes % (A) 17 %; MCH 30.7 pg (25.0-35.0); MCV 95.8 fL (80.0-100.0); Mean Platelet Volume 7.6; Monocytes # (A) 0.7 k/uL (0-1.0); Monocytes % (A) 7 %; Neutrophils # (A) 7.7 k/uL (1.3-7.7); Neutrophils % (A) 73 %; Non-African American GFR(CKD) >90 (>60 ml/min/1.73 sqM); Platelet Count 189 k/uL (150-450); Potassium 4.2 mmol/L (3.5-5.1); RBC 3.93 m/uL (3.80-5.40); RDW 13.5 % (11.5-15.5); Sodium 138 mmol/L (137-145); Total Bilirubin 0.2 mg/dL (0.2-1.3); WBC 10.5 k/uL (3.8-10.6)
--- NOTE | 2022-11-19 20:33 | XR ---
EXAMINATION TYPE: XR chest 1V portable DATE OF EXAM: 11/19/2022 8:29 PM COMPARISON: Chest radiographs from 09/23/22 TECHNIQUE: XR chest 1V portable Portable AP radiograph of the chest. CLINICAL INDICATION:Female, 62 years old with history of Dyspnea; FINDINGS: Lungs/Pleura: There is no evidence of pleural effusion, focal consolidation, or pneumothorax. Chroni c parenchymal change. Pulmonary vascularity: Unremarkable. Heart/mediastinum: Cardiomediastinal silhouette is enlarged and stable. Musculoskeletal: No acute osseous pathology. IMPRESSION: Mild cardiomegaly and chronic parenchymal changes without acute pulmonary process. No significant bibiana nge from most recent prior.
[2022-11-19 20:37] LABS: NT-Pro-B-Type Natriuretic Pept 432 pg/mL
[2022-11-19] MEDS ORDERED: SODIUM CHLORIDE 0.9% 1,000 ML IV ONE (20:50)
[2022-11-19 20:51] LABS: INR 0.9 (<1.2); Prothrombin Time 9.6 sec (9.0-12.0)
[2022-11-19] MEDS ORDERED: ASPIRIN 81 MG PO STA (20:59)
[2022-11-19 21:04] LABS: Partial Thromboplastin Time 19.7 sec (22.0-30.0)
[2022-11-19] MEDS ORDERED: HEPARIN SODIUM 1,000 UN/ML (10ML VL) IV PRN (21:30)
[2022-11-19] MEDS ORDERED: HEPARIN SODIUM 1,000 UN/ML (10ML VL) IV ONE (21:30)
[2022-11-19] MEDS ORDERED: NALOXONE 0.4 MG/ML 1 ML VIAL IV PRN (21:43)
[2022-11-19] MEDS: HEPARIN SOD,PORK IN 0.45% NACL 25,000 UNIT in 0.45% NACL 1 250ML.BAG IV SCH (22:27)
[2022-11-19 23:43] LABS: Glucose,Whole Blood 222 mg/dL (70-110)
[2022-11-20] MEDS ORDERED: DEXTROSE 50% SYRINGE 50 ML IVP PRN ×2 (01:25)
[2022-11-20] MEDS: INSULIN ASPART (NovoLOG) 100 UNIT/ML VIAL SQ SCH ×5 (01:36→22:06)
[2022-11-20 04:54] LABS: Basophils % (A) 0 %; Eosinophils # (A) 0.1 k/uL (0-0.7); Eosinophils % (A) 1 %; HCT 35.9 % (34.0-46.0); HGB 11.5 gm/dL (11.4-16.0); Hypochromasia Marked; Lymphocytes # (A) 0.7 k/uL (1.0-4.8); Lymphocytes % (A) 6 %; MCH 30.9 pg (25.0-35.0); MCHC 31.9 g/dL (31.0-37.0); MCV 96.8 fL (80.0-100.0); Mean Platelet Volume 7.7; Monocytes # (A) 0.2 k/uL (0-1.0); Monocytes % (A) 1 %; Neutrophils # (A) 10.6 k/uL (1.3-7.7); Neutrophils % (A) 92 %; Platelet Count 181 k/uL (150-450); RBC 3.71 m/uL (3.80-5.40); RDW 13.4 % (11.5-15.5); WBC 11.5 k/uL (3.8-10.6)
[2022-11-20 04:57] LABS: ALT 17 U/L (4-34); AST 24 U/L (14-36); African American GFR (CKD) >90 (>60 ml/min/1.73 sqM); Albumin 3.2 g/dL (3.5-5.0); Alkaline Phosphatase 93 U/L (38-126); Anion Gap 1 mmol/L; Blood Urea Nitrogen 20 mg/dL (7-17); Calcium 8.5 mg/dL (8.4-10.2); Carbon Dioxide 36 mmol/L (22-30); Chloride 98 mmol/L (98-107); Glucose 164 mg/dL (74-99); Non-African American GFR(CKD) >90 (>60 ml/min/1.73 sqM); Sodium 135 mmol/L (137-145); Total Bilirubin 0.3 mg/dL (0.2-1.3); Total Protein 6.1 g/dL (6.3-8.2)
[2022-11-20 05:30] LABS: INR 0.9 (<1.2); Partial Thromboplastin Time 35.5 sec (22.0-30.0); Prothrombin Time 9.7 sec (9.0-12.0)
[2022-11-20 06:22] LABS: Glucose,Whole Blood 159 mg/dL (70-110)
[2022-11-20] MEDS ORDERED: ALBUTEROL NEBULIZED 2.5 MG/3 ML INHALATION PRN (08:56)
[2022-11-20] MEDS ORDERED: ACETAMINOPHEN TAB 325 MG TAB PO PRN (08:58)
[2022-11-20] MEDS ORDERED: ONDANSETRON 4 MG/2 ML VIAL IVP PRN (08:58)
[2022-11-20] MEDS: PANTOPRAZOLE 40 MG/10 ML VIAL IVP SCH (09:17)
[2022-11-20] MEDS: SERTRALINE 100 MG TAB PO SCH (09:17)
[2022-11-20] MEDS: ASPIRIN 81 MG PO SCH (09:17)
[2022-11-20] MEDS: METOPROLOL TARTRATE 25 MG TAB PO SCH (09:17)
[2022-11-20] MEDS: hydrOXYzine HCL 25 MG TAB PO SCH ×2 (09:18→17:07)
[2022-11-20] MEDS: MELOXICAM 7.5 MG TAB PO SCH ×2 (09:18→17:07)
[2022-11-20] MEDS: DAPAGLIFLOZIN PROPANEDIOL 5 MG TABLET PO SCH (09:18)
[2022-11-20] MEDS: SYMBICORT 160-4.5 MCG INHALER INHALATION SCH ×2 (09:35→21:57)
[2022-11-20] MEDS: IPRATROPIUM-ALBUTEROL 3 ML NEB INHALATION PRN ×3 (09:35→16:11)
--- NOTE | 2022-11-20 11:16 | P.CNPUL ---
History of Present Illness Consult date: 11/20/22 Requesting physician: Seferino Crawford Reason for consult: dyspnea, cough, chest pain, COPD, hypoxemia, abnormal CXR/CT Chief complaint: Chest pain and shortness of breath. History of present illness: Pulmonary consult dated 11/20/2022. 62-year-old female with history of severe COPD. Her FEV1 percent is 30. She seen in the emergency department on November 19, complaining of increasing shortness of breath. She was brought to the emergency room by EMS. She uses oxygen at 5 L at home. Currently she is on 6 L her in the hospital. She also admitted to some chest discomfort, cough, wheezing, and chest tightness. She was given a breathing treatment in route to the hospital. She denies any fever or chills. She's not having any nausea, vomiting, abdominal pain, or diarrhea. She denies any genitourinary complaints. She was only having problems with her breathing, for maybe 6 or 8 hours prior to admission. The patient was also placed on IV heparin, because of elevated troponins. We added Solu-Medrol. History included COPD, CAD, chronic hypoxemic respiratory failure, aortic valve stenosis, chronic back pain, and degenerative joint disease. White count 11.5, hemoglobin 11.5, hematocrit 35.9, and platelet count is normal. Sodium 135, potassium 5, chlorides 98, CO2 36, BUN 20, and creatinine 0.54. Glucose 159. Troponins were 0.234, 0.190, and 0.154. BNP was 432. The patient's chest x-ray shows some borderline cardiomegaly, some chronic changes, without an acute pulmonary pr ocess. Review of Systems REVIEW OF SYSTEMS: CONSTITUTIONAL: [Negative.] NEUROLOGIC: [ Negative.] HEENT: [ Negative.] CARDIAC: Mild chest discomfort. PULMONARY: Shortness of breath, chest congestion, cough, wheezing, and chest tightness. GI: [Negative.] : [Negative.] RHEUMATOLOGIC: [ Negative.] IMMUNOLOGIC: [ Negative.] ENDOCRINE: [Negative. ] DERMATOLOGIC: [Negative.] Past Medical History Past Medical History: Coronary Artery Disease (CAD), Chest Pain / Angina, COPD, Respiratory Disorder Additional Past Medical History / Comment(s): Chronic hypercapnic respiratory failure, home oxygen at 5L/[place] ATC, tracheobronchitis, aortic valve stenosis, chronic low back pain, DJD History of Any Multi-Drug Resistant Organisms: None Reported Past Surgical History: Breast Surgery, Tubal Ligation Additional Past Surgical History / Comment(s): Bilateral breast reductions, bilateral cataract removals. Past Anesthesia/Blood Transfusion Reactions: No Reported Reaction Past Psychological History: Anxiety, Depression Additional Psychological History / Comment(s): Pt resides with her spouse. She has home oxygen and a nebulizer. She chooses not to drive, her spouse drives. She had [facility] after last hospitalization but no longer coming to home. Smoking Status: Former smoker Past Alcohol Use History: None Reported Additional Past Alcohol Use History / Comment(s): Pt started smoking as a teen and quit within the last 10 years ago. She was a 2 ppd smoker. Past Drug Use History: None Reported - Past Family History Father History Unknown: Yes Mother Family Medical History: Congestive Heart Failure (CHF), Diabetes Mellitus Medications and Allergies Home Medications Medication Instructions Recorded Confirmed Type Albuterol Inhaler [Ventolin Hfa 2 puff INHALATION RT-Q4H PRN 04/09/22 11/19/22 History Inhaler] Atorvastatin [Lipitor] 40 mg PO HS@1730 04/09/22 11/19/22 History Meloxicam [Mobic] 7.5 mg PO BID@0900,1730 04/09/22 11/19/22 History Aspirin 81 mg PO DAILY 30 Days #30 tab 04/12/22 11/19/22 Rx Sertraline [Zoloft] 100 mg PO DAILY 06/15/22 11/19/22 History lisinopriL [Zestril] 30 mg PO DAILY 06/15/22 11/19/22 History Budesonide/Formoterol Fumarate 2 puff INHALATION RT-BID 07/13/22 11/19/22 History [Symbicort 160-4.5 Mcg Inhaler] Ipratropium-Albuterol Nebulize 3 ml INHALATION RT-QID PRN 09/23/22 11/19/22 History [Duoneb 0.5 mg-3 mg/3 ml Soln] Metoprolol Tartrate [Lopressor] 25 mg PO DAILY 09/23/22 11/19/22 History Dapagliflozin Propanediol [Farxiga] 5 mg PO DAILY 11/19/22 11/19/22 History Yupelri 175mcg/3ml 175 mcg INHALATION RT-DAILY 11/19/22 11/19/22 History hydrOXYzine HCL [Atarax] 25 mg PO BID@0900,1730 11/19/22 11/19/22 History Allergies Allergy/AdvReac Type Severity Reaction Status Date / Time No Known Allergies Allergy Verified 09/23/22 13:14 Physical Exam Osteopathic Statement: *. No significant issues noted on an osteopathic structural exam other than those noted in the History and Physical/Consult. Vitals: Vital Signs Temp Pulse Pulse Resp BP BP Pulse Ox 11/20/22 09:45 104 H 11/20/22 09:37 100 11/20/22 08:00 97.8 F 76 18 136/84 98 11/20/22 04:25 76 20 125/71 95 11/20/22 02:00 90 11/19/22 23:40 97.9 F 90 20 104/70 93 L 11/19/22 20:50 96/65 11/19/22 20:49 24 97 11/19/22 20:22 92 11/19/22 20:15 91 11/19/22 19:46 98.6 F 94 18 98/65 97 Intake and Output 11/19/22 11/20/22 11/20/22 22:59 06:59 14:59 Intake Total 72.833 Balance 72.833 Intake: Intake, IV Titration 72.833 Amount Heparin Sod,Pork in 0.45% 72.833 NaCl 25,000 unit In 0.45 % NaCl 1 250ml.bag @ 11. 7268 UNITS/KG/HR 10 mls/ hr IV .Q24H [facility] Rx#: [id number] Other: Voiding Method Toilet Toilet # Voids 0 1 Weight 85.275 kg 85.275 kg No acute distress, oriented 3. No conversational dyspnea or use of accessory muscles. HEENT examination is grossly unremarkable. Neck supple. Full range of motion. No adenopathy thyromegaly or neck vein distention. Cardiovascular examination reveals regular rhythm rate. S1-S2 normal. No S3 or S4. No discernible murmur noted. Heart sounds are distant. Heart rate 100 bpm. Lungs reveal scattered bilateral rhonchi and crackles. Minimal expiratory wheezes. Breath sounds equal bilaterally. Saturations on 5 L, are 98%. Abdomen soft bowel sounds are heard. No masses or tenderness. Extremities are intact. No cyanosis clubbing or edema. Skin is without rash or lesion. Neurologic examination is brief but nonfocal. Results - Laboratory Findings CBC and BMP: 11/20/22 04:19 11/20/22 04:19 PT/INR, D-dimer PT 9.7 sec (9.0-12.0) 11/20/22 04:19 INR 0.9 (<1.2) 11/20/22 04:19 D-Dimer 0.53 mg/L FEU (<0.60) 11/19/22 19:45 Abnormal lab findings: Abnormal Labs 11/19/22 11/19/22 11/19/22 19:45 19:45 19:45 WBC RBC Neutrophils # Lymphocytes # APTT 19.7 L Sodium Chloride 96 L Carbon Dioxide 40 H BUN 20 H Glucose 159 H POC Glucose (mg/dL) Troponin I 0.234 H* Total Protein 6.0 L Albumin 3.4 L 11/19/22 11/20/22 11/20/22 23:41 00:00 04:19 WBC RBC Neutrophils # Lymphocytes # APTT 35.5 H Sodium Chloride Carbon Dioxide BUN Glucose POC Glucose (mg/dL) 222 H Troponin I 0.190 H* Total Protein Albumin 11/20/22 11/20/22 11/20/22 04:19 04:19 04:19 WBC 11.5 H RBC 3.71 L Neutrophils # 10.6 H Lymphocytes # 0.7 L APTT Sodium 135 L Chloride Carbon Dioxide 36 H BUN 20 H Glucose 164 H POC Glucose (mg/dL) Troponin I 0.154 H* Total Protein 6.1 L Albumin 3.2 L 11/20/22 06:20 WBC RBC Neutrophils # Lymphocytes # APTT Sodium Chloride Carbon Dioxide BUN Glucose POC Glucose (mg/dL) 159 H Troponin I Total Protein Albumin - Diagnostic Findings Chest x-ray: image reviewed Assessment and Plan Assessment: Acute hypoxemic respiratory failure, secondary to COPD exacerbation. Mild chest discomfort, rule out non-ST segment elevation myocardial infarction. History of coronary artery disease. Chronic hypercapnic respiratory failure, on home O2 at 5 L. History of aortic valve stenosis. Chronic low back pain. History of DJD. History of anxiety/depression. Plan: Plan dated 11/20/2022. The patient's currently on IV heparin, and oxygen, and 6 L. The patient will be seen by cardiology for elevated troponins. I suspect a are a result of supply/demand mismatch, rather than cardiac ischemia. The patient has albuterol sulfate and ipratropium bromide, as well as Symbicort, and corticosteroids. Currently, the patient is relatively stable. We will continue to follow the patient and make recommendations along the way. Prognosis is guarded, given her FEV1 percent is only 30. On a positive note, she denies current tobacco use. Time with Patient: Greater than 30
[2022-11-20 11:33] LABS: Glucose,Whole Blood 135 mg/dL (70-110)
[2022-11-20] MEDS: methylPREDNISolone SOD SUCCI 125 MG/2 ML VIAL IV SCH ×3 (11:38→23:42)
--- NOTE | 2022-11-20 14:10 | P.CRDCN ---
History of Present Illness Consult date: 11/20/22 History of present illness: HISTORY OF PRESENTING ILLNESS 62-year-old with advanced COPD on 5 L oxygen chronically, severe aortic stenosis present to the hospital with worsening shortness of breath and chest pain. Patient reported that she has been noticing that her shortness of breath has been worsening for the last 1 week. One day prior to the hospital she experienced some chest pain along with shortness of breath. She has been having more cough and wheezing over last 1 week. She has difficulty breathing while laying flat and has to sit up. She is getting short of breath with minimal exertion like getting up from the bed. Her last echo from March 2022 showed preserved LV systolic function but showed severe aortic stenosis. She was recommended to follow up outpatient for TAVR evaluation which patient did not do. Patient denied any episodes of lightheadedness or dizziness or syncope DIAGNOSTICS EKG reveals sinus rhythm heart rate 94 bpm, left axis deviation, nonspecific T- wave inversions in inferior leads. This is not changed from prior exam. Chest xray no significant pulmonary congestion. Laboratory reviewed, sodium 135, potassium 5.0, bicarbonate 36, BUN 20, creatinine 0.5 , troponin 0.15, 0.19, 0.23 Current cardiac medications include lisinopril 30 mg, Farxiga, atorvastatin, aspirin, metoprolol REVIEW OF SYSTEMS At the time of my exam: CONSTITUTIONAL: Denies fever or chills. CARDIOVASCULAR: Has shortness of breath, orthopnea RESPIRATORY: Has cough and shortness of breath GASTROINTESTINAL: Denies abdominal pain, diarrhea, constipation, nausea or vomiting. MUSCULOSKELETAL: Denies myalgias. NEUROLOGIC: Denies numbness, tingling or weakness. ENDOCRINE: Denies fatigue, weight change, polydipsia or polyurina. GENITOURINARY: Denies burning, hematuria or urgency with micturation. HEMATOLOGIC: Denies history of anemia or bleeding. PHYSICAL EXAMINATION Vital signs reviewed. CONSTITUTIONAL: No apparent distress. HEENT: Head is normocephalic. Pupils are equal, round. Sclerae anicteric. Mucous membranes of the mouth are moist. No JVD. No carotid bruit. CHEST EXAMINATION: Diffuse wheezing in bilateral lung elkins. Reduced air movement in bilateral lung elkins HEART EXAMINATION: Regular rate and rhythm. S1, S2 heard. No murmurs, gallops or rub. ABDOMEN: Soft, nontender. Positive bowel sounds. EXTREMITIES: , no lower extremity edema and no calf tenderness. NEUROLOGIC EXAMINATION: Patient is awake, alert and oriented x3. ASSESSMENT Severe COPD exacerbation Acute on chronic hypoxic and hypercapnic respiratory failure NSTEMI Severe aortic stenosis PLAN Continue aspirin, atorvastatin. Continue Farxiga, metoprolol 25 mg. Continue IV heparin drip for 48 hours Obtain 2-D echo Patient will need a cardiac catheterization on this admission prior to discharge. At this time patient has difficulty laying flat. Once patient's respiratory status improves and patient is able to lay flat this schedule heart cardiac catheterization She needs outpatient TAVR workup Continue telemetry monitoring Avoid patient getting hypotensive or hypovolemic, as this may potentiate her severe aortic stenosis Past Medical History Past Medical History: Coronary Artery Disease (CAD), Chest Pain / Angina, COPD, Respiratory Disorder Additional Past Medical History / Comment(s): Chronic hypercapnic respiratory failure, home oxygen at 5L/[place] ATC, tracheobronchitis, aortic valve stenosis, chronic low back pain, DJD History of Any Multi-Drug Resistant Organisms: None Reported Past Surgical History: Breast Surgery, Tubal Ligation Additional Past Surgical History / Comment(s): Bilateral breast reductions, bilateral cataract removals. Past Anesthesia/Blood Transfusion Reactions: No Reported Reaction Past Psychological History: Anxiety, Depression Additional Psychological History / Comment(s): Pt resides with her spouse. She has home oxygen and a nebulizer. She chooses not to drive, her spouse drives. She had [facility] after last hospitalization but no longer coming to [facility]. Smoking Status: Former smoker Past Alcohol Use History: None Reported Additional Past Alcohol Use History / Comment(s): Pt started smoking as a teen and quit within the last 10 years ago. She was a 2 ppd smoker. Past Drug Use History: None Reported - Past Family History Father History Unknown: Yes Mother Family Medical History: Congestive Heart Failure (CHF), Diabetes Mellitus Medications and Allergies Home Medications Medication Instructions Recorded Confirmed Type Albuterol Inhaler [Ventolin Hfa 2 puff INHALATION RT-Q4H PRN 04/09/22 11/19/22 History Inhaler] Atorvastatin [Lipitor] 40 mg PO HS@1730 04/09/22 11/19/22 History Meloxicam [Mobic] 7.5 mg PO BID@0900,1730 04/09/22 11/19/22 History Aspirin 81 mg PO DAILY 30 Days #30 tab 04/12/22 11/19/22 Rx Sertraline [Zoloft] 100 mg PO DAILY 06/15/22 11/19/22 History lisinopriL [Zestril] 30 mg PO DAILY 06/15/22 11/19/22 History Budesonide/Formoterol Fumarate 2 puff INHALATION RT-BID 07/13/22 11/19/22 History [Symbicort 160-4.5 Mcg Inhaler] Ipratropium-Albuterol Nebulize 3 ml INHALATION RT-QID PRN 09/23/22 11/19/22 History [Duoneb 0.5 mg-3 mg/3 ml Soln] Metoprolol Tartrate [Lopressor] 25 mg PO DAILY 09/23/22 11/19/22 History Dapagliflozin Propanediol [Farxiga] 5 mg PO DAILY 11/19/22 11/19/22 History Yupelri 175mcg/3ml 175 mcg INHALATION RT-DAILY 11/19/22 11/19/22 History hydrOXYzine HCL [Atarax] 25 mg PO BID@0900,1730 11/19/22 11/19/22 History Allergies Allergy/AdvReac Type Severity Reaction Status Date / Time No Known Allergies Allergy Verified 09/23/22 13:14 Physical Exam Vitals: Vital Signs Temp Pulse Pulse Resp BP BP Pulse Ox 11/20/22 13:47 77 20 11/20/22 13:06 102 H 11/20/22 12:58 98 11/20/22 12:00 97.8 F 77 20 122/83 95 11/20/22 09:45 104 H 11/20/22 09:37 100 11/20/22 08:00 97.8 F 76 18 136/84 98 11/20/22 04:25 76 20 125/71 95 11/20/22 02:00 90 11/19/22 23:40 97.9 F 90 20 104/70 93 L 11/19/22 20:50 96/65 11/19/22 20:49 24 97 11/19/22 20:22 92 11/19/22 20:15 91 11/19/22 19:46 98.6 F 94 18 98/65 97 Intake and Output 11/19/22 11/20/22 11/20/22 22:59 06:59 14:59 Intake Total 72.833 Balance 72.833 Intake: Intake, IV Titration 72.833 Amount Heparin Sod,Pork in 0.45% 72.833 NaCl 25,000 unit In 0.45 % NaCl 1 250ml.bag @ 11. 7268 UNITS/KG/HR 10 mls/ hr IV .Q24H [facility] Rx#: [id number] Other: Voiding Method Toilet Toilet # Voids 0 1 2 Weight 85.275 kg 85.275 kg Results 11/20/22 04:19 11/20/22 04:19 Cardiac Enzymes 11/19/22 11/19/22 11/20/22 Range/Units 19:45 19:45 00:00 AST 24 (14-36) U/L Troponin I 0.234 H* 0.190 H* (0.000-0.034) ng/mL 11/20/22 11/20/22 Range/Units 04:19 04:19 AST 24 (14-36) U/L Troponin I 0.154 H* (0.000-0.034) ng/mL Coagulation 11/19/22 11/20/22 11/20/22 Range/Units 19:45 04:19 11:26 PT 9.6 9.7 (9.0-12.0) sec APTT 19.7 L 35.5 H 44.9 H (22.0-30.0) sec CBC 11/19/22 11/20/22 Range/Units 19:45 04:19 WBC 10.5 11.5 H (3.8-10.6) k/uL RBC 3.93 3.71 L (3.80-5.40) m/uL Hgb 12.1 11.5 (11.4-16.0) gm/dL Hct 37.6 35.9 (34.0-46.0) % Plt Count 189 181 (150-450) k/uL Comprehensive Metabolic Panel 11/19/22 11/20/22 Range/Units 19:45 04:19 Sodium 138 135 L (137-145) mmol/L Potassium 4.2 5.0 (3.5-5.1) mmol/L Chloride 96 L 98 (98-107) mmol/L Carbon Dioxide 40 H 36 H (22-30) mmol/L BUN 20 H 20 H (7-17) mg/dL Creatinine 0.70 0.54 (0.52-1.04) mg/dL Glucose 159 H 164 H (74-99) mg/dL Calcium 8.5 8.5 (8.4-10.2) mg/dL AST 24 24 (14-36) U/L ALT 18 17 (4-34) U/L Alkaline Phosphatase 81 93 (38-126) U/L Total Protein 6.0 L 6.1 L (6.3-8.2) g/dL Albumin 3.4 L 3.2 L (3.5-5.0) g/dL Current Medications Generic Name Dose Route Start Last Admin Trade Name Freq PRN Reason Stop Dose Admin Acetaminophen 650 mg 11/20/22 08:58 Acetaminophen Tab 325 Mg Tab PO Q6HR PRN Fever and/ or Mild Pain Albuterol/Ipratropium 3 ml 11/20/22 08:56 11/20/22 12:57 Ipratropium-Albuterol 3 Ml Neb INHALATION 3 ml RT-QID PRN Administration Shortness Of Breath Aspirin 81 mg 11/20/22 09:00 11/20/22 09:17 Aspirin 81 Mg PO 81 mg DAILY CHANTEL Administration Atorvastatin Calcium 40 mg 11/20/22 17:30 Atorvastatin 40 Mg Tab PO HS@1730 CHANTEL Budesonide/Formoterol Fumarate 2 puff 11/20/22 20:00 11/20/22 09:35 Symbicort 160-4.5 Mcg Inhaler INHALATION 2 puff RT-BID CHANTEL Administration Dapagliflozin 5 mg 11/20/22 09:00 11/20/22 09:18 Dapagliflozin Propanediol 5 Mg Tablet PO 5 mg DAILY CHANTEL Administration Dextrose/Water 25 ml 11/20/22 01:25 Dextrose 50% Syringe 50 Ml IVP PER PROTOCOL PRN Hypoglycemia Protocol Dextrose/Water 50 ml 11/20/22 01:25 Dextrose 50% Syringe 50 Ml IVP PER PROTOCOL PRN Hypoglycemia Protocol Heparin Sodium (Porcine) 0 unit 11/19/22 21:30 Heparin Sodium 1,000 Un/Ml (10ml Vl) IV PER PROTOCOL PRN Low PTT Protocol Hydroxyzine HCl 25 mg 11/20/22 09:00 11/20/22 09:18 Hydroxyzine Hcl 25 Mg Tab PO 25 mg BID@0900,1730 CHANTEL Administration Heparin Sodium/Sodium Chloride 250 mls @ 10 mls/hr 11/19/22 21:30 11/20/22 05:44 25,000 unit/ Sodium Chloride IV 13.72 units/kg/hr .Q24H [facility] 11.7 mls/hr Titration Protocol 11.7268 UNITS/KG/HR Insulin Aspart 0 unit 11/20/22 01:30 11/20/22 11:34 Insulin Aspart (Novolog) 100 Unit/Ml Vial SQ Not Given ACHS [facility] Protocol Meloxicam 7.5 mg 11/20/22 09:00 11/20/22 09:18 Meloxicam 7.5 Mg Tab PO 7.5 mg BID@0900,1730 CHANTEL Administration Methylprednisolone Sodium Succinate 60 mg 11/20/22 12:00 11/20/22 11:38 Methylprednisolone Sod Succi 125 Mg/2 Ml Vial IV 60 mg Q6HR [facility] Administration Metoprolol Tartrate 25 mg 11/20/22 09:00 11/20/22 09:17 Metoprolol Tartrate 25 Mg Tab PO 25 mg DAILY [facility]EL Administration Naloxone HCl 0.2 mg 11/19/22 21:43 Naloxone 0.4 Mg/Ml 1 Ml Vial IV Q2M PRN Opioid Reversal Ondansetron HCl 4 mg 11/20/22 08:58 Ondansetron 4 Mg/2 Ml Vial IVP Q6HR PRN Nausea And Vomiting Pantoprazole Sodium 40 mg 11/20/22 09:00 11/20/22 09:17 Pantoprazole 40 Mg/10 Ml Vial IVP 40 mg DAILY CHANTEL Administration Sertraline HCl 100 mg 11/20/22 09:00 11/20/22 09:17 Sertraline 100 Mg Tab PO 100 mg DAILY CHANTEL Administration Intake and Output 11/19/22 11/20/22 11/20/22 22:59 06:59 14:59 Intake Total 72.833 Balance 72.833 Intake: Intake, IV Titration 72.833 Amount Heparin Sod,Pork in 0.45% 72.833 NaCl 25,000 unit In 0.45 % NaCl 1 250ml.bag @ 11. 7268 UNITS/KG/HR 10 mls/ hr IV .Q24H [facility] Rx#: [id number] Other: Voiding Method Toilet Toilet # Voids 0 1 2 Weight 85.275 kg 85.275 kg 11/20/22 04:19 11/20/22 04:19
--- NOTE | 2022-11-20 15:10 | P.HPIM ---
History of Present Illness H&P Date: 11/20/22 This is a 62-year-old female with medical history significant for coronary artery disease, COPD, chronic hypercapnic respiratory failure patient is maintained on 5 L of nasal cannula at home, has aortic valve stenosis and chronic pain. Patient is a former smoker she has quit 10 years ago. Patient norman omes into the ER with concern for worsening shortness of breath and feels that she may be in a COPD flareup. She has been having shortness of breath at home and has been giving herself her updraft treatments and has not had any relief of symptoms. Patient came in via EMS she is having no chest pain palpitations no dizziness and lightheadedness or nausea vomiting or diarrhea and is not taking any fever or chills. Some workup on chest x-ray shows mild cardiomegaly and chronic parenchymal changes without acute pulmonary process. This is not a significant change from prior x-ray. She was discharged from this facility on July 19 where she was treated for COPD and respiratory failure patient was sent on an oral prednisone taper. Bladder from this admission shows a white count of 11.5, normal kidney function, sodium is 135, she does have a troponin elevation of 0.234, 0.10 and 0.154. Patient has a proBNP of 432. Admitted to medicine with a consult placed to cardiology for the troponin elevation and pulmonary services for the COPD. Currently patient is started on IV heparin drip and given a dose of IV steroids in the ER. Lungs are tight on examination patient family much air troponin elevation is likely due to hypoxia patient is given updrafts and will be started on systemic steroids. REVIEW OF SYSTEMS: CONSTITUTIONAL: No fever, no malaise, no fatigue. HEENT: No recent visual problems or hearing problems. Denied any sore throat. CARDIOVASCULAR: No chest pain, orthopnea, PND, no palpitations, no syncope. PULMONARY: Reports shortness of breath, no cough, no hemoptysis. GASTROINTESTINAL: No diarrhea, no nausea, no vomiting, no abdominal pain. NEUROLOGICAL: No headaches, no weakness, no numbness. HEMATOLOGICAL: Denies any bleeding or petechiae. GENITOURINARY: Denies any burning micturition, frequency, or urgency. MUSCULOSKELETAL/RHEUMATOLOGICAL: Denies any joint pain, swelling, or any muscle pain. ENDOCRINE: Denies any polyuria or polydipsia. The rest of the 14-point review of systems is negative. PHYSICAL EXAMINATION: GENERAL: The patient is alert and oriented x3, not in any acute distress. Well developed, well nourished. Wears 5L of oxygen chronic HEENT: Pupils are round and equally reacting to light. EOMI. No scleral icterus. No conjunctival pallor. Normocephalic, atraumatic. No pharyngeal erythema. No thyromegaly. CARDIOVASCULAR: S1 and S2 present. No murmurs, rubs, or gallops. PULMONARY: Chest is clear to auscultation, Lungs are tight diminished, there are no crackles or wheezing patient is not moving much air. ABDOMEN: Soft, nontender, nondistended, normoactive bowel sounds. No palpable organomegaly. MUSCULOSKELETAL: No joint swelling or deformity. EXTREMITIES: No cyanosis, clubbing, or pedal edema. NEUROLOGICAL: Gross neurological examination did not reveal any focal deficits. SKIN: No rashes. Assessment Acute COPD exacerbation Acute on chronic hypoxemic and hypercapnic respiratory failure maintained on 5 L of home oxygen. Troponin elevation rule out acute coronary syndrome cardiology has been consult and, proBNP is within normal limits for age at 432. This likely a troponin leak due to hypoxia. Hx coronary artery disease History of hypertension currently low normal and we will recommend holding lisinopril at this time Severe end-stage COPD with an FEV1 about 30% of predicted History of hyperlipidemia History of angina pectoris next and history of aortic stenosis next and chronic low back pain Anxiety/depression Former smoker 2 packs per day DVT prophylaxis patient is currently on IV heparin GI prophylaxis Protonix Full code Plan Patient is resumed on home updrafts and recommending systemic steroids, pulmonary consult. Cardiology is in place in consultation for further evaluation of the troponin elevation. Recommend to hold patient's lisinopril at this time due to low normal blood pressures continue with cardiac monitoring. The impression and plan of care has been dictated by Filomena Lewis Nurse Practitioner as directed. Dr. Farhan MD I have performed a history and physical examination and medical decision making of this patient, discussed the same with the dictator, and agree with the dictators assessment and plan as written, documented as a scribe. Based on total visit time, I have performed more than 50% of this visit. Past Medical History Past Medical History: Coronary Artery Disease (CAD), Chest Pain / Angina, COPD, Respiratory Disorder Additional Past Medical History / Comment(s): Chronic hypercapnic respiratory failure, home oxygen at 5L/[place] ATC, tracheobronchitis, aortic valve stenosis, chronic low back pain, DJD History of Any Multi-Drug Resistant Organisms: None Reported Past Surgical History: Breast Surgery, Tubal Ligation Additional Past Surgical History / Comment(s): Bilateral breast reductions, bilateral cataract removals. Past Anesthesia/Blood Transfusion Reactions: No Reported Reaction Past Psychological History: Anxiety, Depression Additional Psychological History / Comment(s): Pt resides with her spouse. She has home oxygen and a nebulizer. She chooses not to drive, her spouse drives. She had [facility] after last hospitalization but no longer coming to home. Smoking Status: Former smoker Past Alcohol Use History: None Reported Additional Past Alcohol Use History / Comment(s): Pt started smoking as a teen and quit within the last 10 years ago. She was a 2 ppd smoker. Past Drug Use History: None Reported - Past Family History Father History Unknown: Yes Mother Family Medical History: Congestive Heart Failure (CHF), Diabetes Mellitus Medications and Allergies Home Medications Medication Instructions Recorded Confirmed Type Albuterol Inhaler [Ventolin Hfa 2 puff INHALATION RT-Q4H PRN 04/09/22 11/19/22 History Inhaler] Atorvastatin [Lipitor] 40 mg PO HS@1730 04/09/22 11/19/22 History Meloxicam [Mobic] 7.5 mg PO BID@0900,1730 04/09/22 11/19/22 History Aspirin 81 mg PO DAILY 30 Days #30 tab 04/12/22 11/19/22 Rx Sertraline [Zoloft] 100 mg PO DAILY 06/15/22 11/19/22 History lisinopriL [Zestril] 30 mg PO DAILY 06/15/22 11/19/22 History Budesonide/Formoterol Fumarate 2 puff INHALATION RT-BID 07/13/22 11/19/22 History [Symbicort 160-4.5 Mcg Inhaler] Ipratropium-Albuterol Nebulize 3 ml INHALATION RT-QID PRN 09/23/22 11/19/22 History [Duoneb 0.5 mg-3 mg/3 ml Soln] Metoprolol Tartrate [Lopressor] 25 mg PO DAILY 09/23/22 11/19/22 History Dapagliflozin Propanediol [Farxiga] 5 mg PO DAILY 11/19/22 11/19/22 History Yupelri 175mcg/3ml 175 mcg INHALATION RT-DAILY 11/19/22 11/19/22 History hydrOXYzine HCL [Atarax] 25 mg PO BID@0900,1730 11/19/22 11/19/22 History Allergies Allergy/AdvReac Type Severity Reaction Status Date / Time No Known Allergies Allergy Verified 09/23/22 13:14 Physical Exam Vitals: Vital Signs Temp Pulse Pulse Resp BP BP Pulse Ox 11/20/22 08:00 97.8 F 76 18 136/84 98 11/20/22 04:25 76 20 125/71 95 11/20/22 02:00 90 11/19/22 23:40 97.9 F 90 20 104/70 93 L 11/19/22 20:50 96/65 11/19/22 20:49 24 97 11/19/22 20:22 92 11/19/22 20:15 91 11/19/22 19:46 98.6 F 94 18 98/65 97 Intake and Output 11/19/22 11/20/22 11/20/22 22:59 06:59 14:59 Intake Total 72.833 Balance 72.833 Intake: Intake, IV Titration 72.833 Amount Heparin Sod,Pork in 0.45% 72.833 NaCl 25,000 unit In 0.45 % NaCl 1 250ml.bag @ 11. 7268 UNITS/KG/HR 10 mls/ hr IV .Q24H COUNT INCLUDES THE [facility] Rx#: [id number] Other: Voiding Method Toilet # Voids 0 1 Weight 85.275 kg 85.275 kg Results CBC & Chem 7: 11/20/22 04:19 11/20/22 04:19 Labs: Abnormal Lab Results - Last 24 Hours (Table) 11/19/22 11/19/22 11/19/22 Range/Units 19:45 19:45 19:45 WBC (3.8-10.6) k/uL RBC (3.80-5.40) m/uL Neutrophils # (1.3-7.7) k/uL Lymphocytes # (1.0-4.8) k/uL APTT 19.7 L (22.0-30.0) sec Sodium (137-145) mmol/L Chloride 96 L (98-107) mmol/L Carbon Dioxide 40 H (22-30) mmol/L BUN 20 H (7-17) mg/dL Glucose 159 H (74-99) mg/dL POC Glucose (mg/dL) (70-110) mg/dL Troponin I 0.234 H* (0.000-0.034) ng/mL Total Protein 6.0 L (6.3-8.2) g/dL Albumin 3.4 L (3.5-5.0) g/dL 11/19/22 11/20/22 11/20/22 Range/Units 23:41 00:00 04:19 WBC (3.8-10.6) k/uL RBC (3.80-5.40) m/uL Neutrophils # (1.3-7.7) k/uL Lymphocytes # (1.0-4.8) k/uL APTT 35.5 H (22.0-30.0) sec Sodium (137-145) mmol/L Chloride (98-107) mmol/L Carbon Dioxide (22-30) mmol/L BUN (7-17) mg/dL Glucose (74-99) mg/dL POC Glucose (mg/dL) 222 H (70-110) mg/dL Troponin I 0.190 H* (0.000-0.034) ng/mL Total Protein (6.3-8.2) g/dL Albumin (3.5-5.0) g/dL 11/20/22 11/20/22 11/20/22 Range/Units 04:19 04:19 04:19 WBC 11.5 H (3.8-10.6) k/uL RBC 3.71 L (3.80-5.40) m/uL Neutrophils # 10.6 H (1.3-7.7) k/uL Lymphocytes # 0.7 L (1.0-4.8) k/uL APTT (22.0-30.0) sec Sodium 135 L (137-145) mmol/L Chloride (98-107) mmol/L Carbon Dioxide 36 H (22-30) mmol/L BUN 20 H (7-17) mg/dL Glucose 164 H (74-99) mg/dL POC Glucose (mg/dL) (70-110) mg/dL Troponin I 0.154 H* (0.000-0.034) ng/mL Total Protein 6.1 L (6.3-8.2) g/dL Albumin 3.2 L (3.5-5.0) g/dL 11/20/22 Range/Units 06:20 WBC (3.8-10.6) k/uL RBC (3.80-5.40) m/uL Neutrophils # (1.3-7.7) k/uL Lymphocytes # (1.0-4.8) k/uL APTT (22.0-30.0) sec Sodium (137-145) mmol/L Chloride (98-107) mmol/L Carbon Dioxide (22-30) mmol/L BUN (7-17) mg/dL Glucose (74-99) mg/dL POC Glucose (mg/dL) 159 H (70-110) mg/dL Troponin I (0.000-0.034) ng/mL Total Protein (6.3-8.2) g/dL Albumin (3.5-5.0) g/dL Thrombosis Risk Factor Assmnt - Choose All That Apply Any of the Below Risk Factors Present?: No Other Risk Factors: Yes Each Risk Factor Represents 2 Points: Age 61-74 years Other congenital or acquired thrombophilia - If yes, enter type in comment: No Thrombosis Risk Factor Assessment Total Risk Factor Score: 2 Thrombosis Risk Factor Assessment Level: Low Risk Assessment and Plan Time with Patient: Less than 30
[2022-11-20 16:41] LABS: Glucose,Whole Blood 218 mg/dL (70-110)
[2022-11-20] MEDS: ATORVASTATIN 40 MG TAB PO SCH (17:07)
[2022-11-20] MEDS: HEPARIN SOD,PORK IN 0.45% NACL 25,000 UNIT in 0.45% NACL 1 250ML.BAG IV SCH (20:10)
[2022-11-20 20:39] LABS: Glucose,Whole Blood 176 mg/dL (70-110)
[2022-11-20] MEDS: IPRATROPIUM-ALBUTEROL 3 ML NEB INHALATION SCH (21:57)
[2022-11-21] MEDS: methylPREDNISolone SOD SUCCI 125 MG/2 ML VIAL IV SCH ×3 (05:36→16:26)
[2022-11-21 06:12] LABS: Glucose,Whole Blood 156 mg/dL (70-110)
[2022-11-21] MEDS: INSULIN ASPART (NovoLOG) 100 UNIT/ML VIAL SQ SCH ×4 (06:42→20:21)
[2022-11-21] MEDS: IPRATROPIUM-ALBUTEROL 3 ML NEB INHALATION SCH ×4 (09:24→20:22)
[2022-11-21] MEDS: SYMBICORT 160-4.5 MCG INHALER INHALATION SCH ×2 (09:24→20:22)
[2022-11-21] MEDS: hydrOXYzine HCL 25 MG TAB PO SCH ×2 (09:38→16:26)
[2022-11-21] MEDS: SERTRALINE 100 MG TAB PO SCH (09:39)
[2022-11-21] MEDS: METOPROLOL TARTRATE 25 MG TAB PO SCH (09:39)
[2022-11-21] MEDS: DAPAGLIFLOZIN PROPANEDIOL 5 MG TABLET PO SCH (09:39)
[2022-11-21] MEDS: ASPIRIN 81 MG PO SCH (09:39)
[2022-11-21] MEDS: MELOXICAM 7.5 MG TAB PO SCH ×2 (09:39→16:25)
[2022-11-21] MEDS: PANTOPRAZOLE 40 MG/10 ML VIAL IVP SCH (09:40)
--- NOTE | 2022-11-21 09:57 | P.PN ---
Subjective Progress Note Date: 11/21/22 HISTORY OF PRESENTING ILLNESS 62-year-old with advanced COPD on 5 L oxygen chronically, severe aortic stenosis present to the hospital with worsening shortness of breath and chest pain. Patient reported that she has been noticing that her shortness of breath has been worsening for the last 1 week. One day prior to the hospital she experienced some chest pain along with shortness of breath. She has been having more cough and wheezing over last 1 week. She has difficulty breathing while laying flat and has to sit up. She is getting short of breath with minimal exertion like getting up from the bed. Her last echo from March 2022 showed preserved LV systolic function but showed severe aortic stenosis. She was recommended to follow up outpatient for TAVR evaluation which patient did not do. Patient denied any episodes of lightheadedness or dizziness or syncope DIAGNOSTICS EKG reveals sinus rhythm heart rate 94 bpm, left axis deviation, nonspecific T- wave inversions in inferior leads. This is not changed from prior exam. Chest xray no significant pulmonary congestion. Laboratory reviewed, sodium 135, potassium 5.0, bicarbonate 36, BUN 20, creatinine 0.5 , troponin 0.15, 0.19, 0.23 Current cardiac medications include lisinopril 30 mg, Farxiga, atorvastatin, aspirin, metoprolol 11/21 Patient is seen today in follow-up.patient has been continued on heparin drip his also under treatment for COPD exacerbation. Blood pressure 130/80, heart rate in the 80s. Patient continues to have significant shortness of breath, unable to lay flat for cardiac catheterization. Echocardiogram has been obtained report is pending. Patient did not have previous outpatient workup for TAVR. PHYSICAL EXAMINATION Vital signs reviewed. CONSTITUTIONAL: No apparent distress. HEENT: Head is normocephalic. Pupils are equal, round. Sclerae anicteric. Mucous membranes of the mouth are moist. No JVD. No carotid bruit. CHEST EXAMINATION: Diffuse wheezing in bilateral lung elkins. Reduced air mov ement in bilateral lung elkins HEART EXAMINATION: Regular rate and rhythm. S1, S2 heard. No murmurs, gallops or rub. ABDOMEN: Soft, nontender. Positive bowel sounds. EXTREMITIES: , no lower extremity edema and no calf tenderness. NEUROLOGIC EXAMINATION: Patient is awake, alert and oriented x3. ASSESSMENT Severe COPD exacerbation Acute on chronic hypoxic and hypercapnic respiratory failure NSTEMI Severe aortic stenosis PLAN Continue aspirin, atorvastatin. Continue Farxiga, metoprolol 25 mg. Continue IV heparin drip for 48 hours Obtain 2-D echo report Patient will need a cardiac catheterization on this admission prior to discharge. At this time patient has difficulty laying flat. Once patient's respiratory status improves and patient is able to lay flat this schedule heart cardiac catheterization She needs outpatient TAVR workup Continue telemetry monitoring Avoid patient getting hypotensive or hypovolemic, as this may potentiate her severe aortic stenosis Nurse practitioner note has been reviewed, I agree with the documented findings and plan of care. Patient was seen and examined. Objective - Vital Signs Vital signs: Vital Signs Temp 97.9 F 11/21/22 04:00 Pulse 83 11/21/22 04:00 Resp 20 11/21/22 04:00 BP 138/80 11/21/22 04:00 Pulse Ox 94 L 11/21/22 04:00 FiO2 Intake & Output 11/20/22 11/21/22 11/21/22 18:59 06:59 18:59 Intake Total 120 408.87 Balance 120 408.87 Intake: Intake, IV Titration 168.87 Amount Heparin Sod,Pork in 0.45% 168.87 NaCl 25,000 unit In 0.45 % NaCl 1 250ml.bag @ 11. 7268 UNITS/KG/HR 10 mls/ hr IV .Q24H [facility] Rx#: [id number] Oral 120 240 Other: Voiding Method Toilet Toilet # Voids 2 1 - Labs CBC & Chem 7: 11/20/22 04:19 11/20/22 04:19 Labs: Abnormal Lab Results - Last 24 Hours (Table) 11/20/22 11/20/22 11/20/22 Range/Units 11:26 11:31 16:39 APTT 44.9 H (22.0-30.0) sec POC Glucose (mg/dL) 135 H 218 H (70-110) mg/dL 11/20/22 11/21/22 Range/Units 20:38 06:06 APTT (22.0-30.0) sec POC Glucose (mg/dL) 176 H 156 H (70-110) mg/dL
[2022-11-21 11:17] LABS: Glucose,Whole Blood 166 mg/dL (70-110)
[2022-11-21 12:14] LABS: Basophils % (A) 0 %; Eosinophils % (A) 0 %; HCT 33.9 % (34.0-46.0); Hypochromasia Slight; Lymphocytes # (A) 0.4 k/uL (1.0-4.8); Lymphocytes % (A) 3 %; MCH 30.8 pg (25.0-35.0); MCHC 32.3 g/dL (31.0-37.0); MCV 95.4 fL (80.0-100.0); Mean Platelet Volume 7.5; Monocytes # (A) 0.4 k/uL (0-1.0); Monocytes % (A) 3 %; Neutrophils # (A) 12.9 k/uL (1.3-7.7); Neutrophils % (A) 94 %; Platelet Count 188 k/uL (150-450); RBC 3.56 m/uL (3.80-5.40); RDW 13.5 % (11.5-15.5); WBC 13.7 k/uL (3.8-10.6)
[2022-11-21 12:41] LABS: African American GFR (CKD) >90 (>60 ml/min/1.73 sqM); Anion Gap 1 mmol/L; Blood Urea Nitrogen 19 mg/dL (7-17); Calcium 8.7 mg/dL (8.4-10.2); Carbon Dioxide 36 mmol/L (22-30); Chloride 98 mmol/L (98-107); Glucose 137 mg/dL (74-99); Magnesium 2.3 mg/dL (1.6-2.3); Non-African American GFR(CKD) >90 (>60 ml/min/1.73 sqM); Potassium 4.5 mmol/L (3.5-5.1); Sodium 135 mmol/L (137-145)
--- NOTE | 2022-11-21 12:52 | P.PN ---
Subjective Progress Note Date: 11/21/22 This is a 62-year-old female with medical history significant for coronary artery disease, COPD, chronic hypercapnic respiratory failure patient is maintained on 5 L of nasal cannula at home, has aortic valve stenosis and chronic pain. Patient is a former smoker she has quit 10 years ago. Patient comes into the ER with concern for worsening shortness of breath and feels that she may be in a COPD flareup. She has been having shortness of breath at home and has been giving herself her updraft treatments and has not had any relief of symptoms. Patient came in via EMS she is having no chest pain palpitations no dizziness and lightheadedness or nausea vomiting or diarrhea and is not taking any fever or chills. Some workup on chest x-ray shows mild cardiomegaly and chronic parenchymal changes without acute pulmonary process. This is not a significant change from prior x-ray. She was discharged from this facility on July 19 where she was treated for COPD and respiratory failure patient was sent on an oral prednisone taper. Bladder from this admission shows a white count of 11.5, normal kidney function, sodium is 135, she does have a troponin elevation of 0.234, 0.10 and 0.154. Patient has a proBNP of 432. Admitted to medicine with a consult placed to cardiology for the troponin elevation and pulmonary services for the COPD. Currently patient is started on IV heparin drip and giv en a dose of IV steroids in the ER. Lungs are tight on examination patient family much air troponin elevation is likely due to hypoxia patient is given updrafts and will be started on systemic steroids. 11/21/2022 Issues evaluated today in the stepdown unit continues to report shortness of breath at rest and worsened with ambulation, unable to lie flat patient is sitting upright in the bed at all times. patient has been weaned up to 6 L of oxygen currently maintaining saturations of 94-96%. She remains afebrile. Currently on combination of Symbicort and DuoNeb scheduled and as needed. Co ntinues on IV site Medrol high dose 60 mg every 6 hours. Continues on IV heparin. Cardiology recommending cardiac catheterization prior to discharge pending improvement in respiratory status and echocardiogram is pending at this time. Review of Systems Constitutional: Denied any fatigue denied any fever. Cardio vascular: denied any chest pain, palpitations Gastrointestinal: denied any nausea, vomiting, diarrhea Pulmonary: Reports shortness of breath and orthopnea Neurologic denied any new focal deficits All inpatient medications were reviewed and appropriate changes in these medications as dictated in the interval history and assessment and plan. PHYSICAL EXAMINATION: GENERAL: The patient is alert and oriented x3, not in any acute distress. Well developed, well nourished. Wears 5L of oxygen chronic HEENT: Pupils are round and equally reacting to light. EOMI. No scleral icterus. No conjunctival pallor. Normocephalic, atraumatic. No pharyngeal erythema. No thyromegaly. CARDIOVASCULAR: S1 and S2 present. No murmurs, rubs, or gallops. PULMONARY: Chest is clear to auscultation, Lungs are tight diminished, there are no crackles or wheezing patient is not moving much air. ABDOMEN: Soft, nontender, nondistended, normoactive bowel sounds. No palpable organomegaly. MUSCULOSKELETAL: No joint swelling or deformity. EXTREMITIES: No cyanosis, clubbing, or pedal edema. NEUROLOGICAL: Gross neurological examination did not reveal any focal deficits. SKIN: No rashes. Assessment Acute COPD exacerbation Acute on chronic hypoxemic and hypercapnic respiratory failure maintained on 6 L of home oxygen. Troponin elevation rule out acute coronary syndrome cardiology has been consult and, proBNP is within normal limits for age at 432. This likely a troponin leak due to hypoxia however unable to complete rule out an ACS and cardiology recommending cardiac catheterization prior to DC once respiratory status improves. Leukocytosis this is likely steroid induced was normal on admission. Hx coronary artery disease History of hypertension currently low normal and we will recommend holding lisinopril at this time Severe end-stage COPD with an FEV1 about 30% of predicted History of hyperlipidemia History of angina pectorid history of aortic stenosis severe did not go to outpatient follow up regarding possible TAVR. chronic low back pain Anxiety/depression Former smoker 2 packs per day DVT prophylaxis patient is currently on IV heparin GI prophylaxis Protonix Full code Plan Patient continues on scheduled and as needed updrafts and recommending systemic steroids, pulmonary consult. Cardiology is in place in consultation recommending cardiac cath once respiratory status improves. Recommend to hold patient's lisinopril at this time due to low normal blood pressures continue with cardiac monitoring. Check a procalcitonin level. The impression and plan of care has been dictated by Filomena Lewis, Nurse Practitioner as directed. Dr. Farhan MD I have performed a history and physical examination and medical decision making of this patient, discussed the same with the dictator, and agree with the dictators assessment and plan as written, documented as a scribe. Based on total visit time, I have performed more than 50% of this visit. Objective - Vital Signs Vital signs: Vital Signs Temp 97.9 F 11/21/22 04:00 Pulse 83 11/21/22 04:00 Resp 20 11/21/22 04:00 BP 138/80 11/21/22 04:00 Pulse Ox 94 L 11/21/22 04:00 FiO2 Intake & Output 11/20/22 11/21/22 11/21/22 18:59 06:59 18:59 Intake Total 120 408.87 Balance 120 408.87 Intake: Intake, IV Titration 168.87 Amount Heparin Sod,Pork in 0.45% 168.87 NaCl 25,000 unit In 0.45 % NaCl 1 250ml.bag @ 11. 7268 UNITS/KG/HR 10 mls/ hr IV .Q24H [facility] Rx#: [id number] Oral 120 240 Other: Voiding Method Toilet Toilet # Voids 2 1 - Labs CBC & Chem 7: 11/21/22 10:47 11/21/22 10:47 Labs: Abnormal Lab Results - Last 24 Hours (Table) 11/20/22 11/20/22 11/20/22 Range/Units 11:26 11:31 16:39 APTT 44.9 H (22.0-30.0) sec POC Glucose (mg/dL) 135 H 218 H (70-110) mg/dL 11/20/22 11/21/22 Range/Units 20:38 06:06 APTT (22.0-30.0) sec POC Glucose (mg/dL) 176 H 156 H (70-110) mg/dL Assessment and Plan Time with Patient: Less than 30
--- NOTE | 2022-11-21 15:12 | P.PN ---
Subjective Progress Note Date: 11/21/22 62-year-old female with history of severe COPD. Her FEV1 percent is 30. She seen in the emergency department on November 19, complaining of increasing shortness of breath. She was brought to the emergency room by EMS. She uses oxygen at 5 L at home. Currently she is on 6 L her in the hospital. She also admitted to some chest discomfort, cough, wheezing, and chest tightness. She was given a breathing treatment in route to the hospital. She denies any fever or chills. She's not having any nausea, vomiting, abdominal pain, or diarrhea. She denies any genitourinary complaints. She was only having problems with her breathing, for maybe 6 or 8 hours prior to admission. The patient was also placed on IV heparin, because of elevated troponins. We added Solu-Medrol. History included COPD, CAD, chronic hypoxemic respiratory failure, aortic valve stenosis, chronic back pain, and degenerative joint disease. White count 11.5, hemoglobin 11.5, hematocrit 35.9, and platelet count is normal. Sodium 135, potassium 5, chlorides 98, CO2 36, BUN 20, and creatinine 0.54. Glucose 159. Troponins were 0.234, 0.190, and 0.154. BNP was 432. The patient's chest x-ray shows some borderline cardiomegaly, some chronic changes, without an acute pulmonary process. On 11/21/2022, the patient is being seen for a follow-up. The patient is essentially the same, slightly improved compared to yesterday. No new complaints. She is very limited in terms of exercise capacity patient remains on 6 L of O2 nasal cannula with a pulse ox of 96%. No shortness of breath at rest and she gets short of breath with a minimum amount of activity. Blood work from today shows a WBC count 15.7 with a hemoglobin of 11 and the patient had a sodium level of 135, potassium level of 4.5, BUN is 19 with a creatinine of 0.5. Blood sugars at 166. She remains on IV heparin per cardiology and the patient is likely going to require a cardiac catheterization later stage once her COPD is improved and she is able to lay down flat for procedure. She is fairly of any chest pain for now. Her troponins peaked at 0.23. Objective - Vital Signs Vital signs: Vital Signs Temp 97.6 F 11/21/22 08:00 Pulse 86 11/21/22 12:00 Resp 16 11/21/22 12:00 BP 116/74 11/21/22 12:00 Pulse Ox 96 11/21/22 12:00 FiO2 Intake & Output 11/20/22 11/21/22 11/21/22 18:59 06:59 18:59 Intake Total 120 408.87 Balance 120 408.87 Intake: Intake, IV Titration 168.87 Amount Heparin Sod,Pork in 0.45% 168.87 NaCl 25,000 unit In 0.45 % NaCl 1 250ml.bag @ 11. 7268 UNITS/KG/HR 10 mls/ hr IV .Q24H [facility] Rx#: [id number] Oral 120 240 Other: Voiding Method Toilet Toilet Toilet # Voids 2 1 - Exam No acute distress, oriented 3. No conversational dyspnea or use of accessory muscles. The patient is currently on 6 L O2 nasal cannula HEENT examination is grossly unremarkable. Neck supple. Full range of motion. No adenopathy thyromegaly or neck vein distention. Cardiovascular examination reveals regular rhythm rate. S1-S2 normal. No S3 or S4. No discernible murmur noted. Lungs reveal scattered bilateral rhonchi and crackles. Minimal expiratory wheezes. Breath sounds equal bilaterally. Abdomen soft bowel sounds are heard. No masses or tenderness. Extremities are intact. No cyanosis clubbing or edema. Skin is without rash or lesion. Neurologic examination is brief but nonfocal. - Labs CBC & Chem 7: 11/21/22 10:47 11/21/22 10:47 Labs: Abnormal Lab Results - Last 24 Hours (Table) 11/20/22 11/20/22 11/20/22 Range/Units 04:19 16:39 20:38 WBC (3.8-10.6) k/uL RBC (3.80-5.40) m/uL Hgb (11.4-16.0) gm/dL Hct (34.0-46.0) % Neutrophils # (1.3-7.7) k/uL Lymphocytes # (1.0-4.8) k/uL APTT (22.0-30.0) sec POC Glucose (mg/dL) 218 H 176 H (70-110) mg/dL Troponin I 0.154 H* (0.000-0.034) ng/mL 11/21/22 11/21/22 11/21/22 Range/Units 06:06 10:47 10:47 WBC 13.7 H (3.8-10.6) k/uL RBC 3.56 L (3.80-5.40) m/uL Hgb 11.0 L (11.4-16.0) gm/dL Hct 33.9 L (34.0-46.0) % Neutrophils # 12.9 H (1.3-7.7) k/uL Lymphocytes # 0.4 L (1.0-4.8) k/uL APTT 55.4 H (22.0-30.0) sec POC Glucose (mg/dL) 156 H (70-110) mg/dL Troponin I (0.000-0.034) ng/mL 11/21/22 Range/Units 11:16 WBC (3.8-10.6) k/uL RBC (3.80-5.40) m/uL Hgb (11.4-16.0) gm/dL Hct (34.0-46.0) % Neutrophils # (1.3-7.7) k/uL Lymphocytes # (1.0-4.8) k/uL APTT (22.0-30.0) sec POC Glucose (mg/dL) 166 H (70-110) mg/dL Troponin I (0.000-0.034) ng/mL Assessment and Plan Plan: Acute hypoxemic respiratory failure, secondary to COPD exacerbation. The patient is currently on 6 L of O2 nasal cannula Acute COPD exacerbation in a patient with advanced COPD with an FEV1 of 30% of predicted Chronic hypoxic respiratory failure maintains on O2 at 5 L on outpatient basis Mild chest discomfort, rule out non-ST segment elevation myocardial infarction. History of coronary artery disease. History of aortic valve stenosis. Chronic low back pain. History of DJD. History of anxiety/depression. Plan: Continue same treatment Continue bronchodilators and steroids Continue IV heparin Cardiac catheterization was stable Keep oxygen at 6 L nasal cannula
[2022-11-21 16:12] LABS: Glucose,Whole Blood 133 mg/dL (70-110)
[2022-11-21] MEDS: ATORVASTATIN 40 MG TAB PO SCH (16:26)
[2022-11-21 20:12] LABS: Glucose,Whole Blood 196 mg/dL (70-110)
[2022-11-21] MEDS: HEPARIN SOD,PORK IN 0.45% NACL 25,000 UNIT in 0.45% NACL 1 250ML.BAG IV SCH (20:22)
[2022-11-22] MEDS: methylPREDNISolone SOD SUCCI 125 MG/2 ML VIAL IV SCH ×5 (00:47→23:42)
[2022-11-22 05:58] LABS: Glucose,Whole Blood 120 mg/dL (70-110)
[2022-11-22] MEDS: INSULIN ASPART (NovoLOG) 100 UNIT/ML VIAL SQ SCH ×4 (06:01→20:59)
--- NOTE | 2022-11-22 07:02 | CA ---
Transthoracic Echo Report Name: Blanka Porras Age: 62 Gender: F : 1960 Exam Date: 11/21/2022 08:46 Exam Location: [facility] Ht (in): 65 Wt (lb): 188 Ordering Physician: Montana Bush MD ([id number]) Attending/Referring Phys: [employer] Josey Jacome RDCS Procedure CPT: Indications: severe and NSTEMI Cardiac Hx: Technical Quality: Fair Contrast 1: Total Dose (mL): Contrast 2: Total Dose (mL): MEASUREMENTS (Male / Female) Normal Values 2D ECHO LV Diastolic Diameter PLAX 4.6 cm 4.2 - 5.9 / 3.9 - 5.3 cm LV Systolic Diameter PLAX 3.3 cm IVS Diastolic Thickness 0.9 cm 0.6 - 1.0 / 0.6 - 0.9 cm LVPW Diastolic Thickness 0.9 cm 0.6 - 1.0 / 0.6 - 0.9 cm LV Relative Wall Thickness 0.4 RV Internal Dim ED PLAX 3.1 cm LVOT Diameter 2.4 cm LV Diastolic Volume MOD 4C 133.5 cm??? LV Systolic Volume MOD 4C 84.4 cm??? LV Ejection Fraction MOD 4C 36.8 % LV Cardiac Index MOD 4C 2153.1 cm???/min???m??? LV Diastolic Length 4C 8.4 cm LV Systolic Length 4C 7.3 cm LV Diastolic Volume MOD 2C 77.6 cm??? LV Systolic Volume MOD 2C 45.6 cm??? LV Ejection Fraction MOD 2C 41.2 % LV Cardiac Index MOD 2C 1402.7 cm???/min???m??? LV Diastolic Length 2C 8.0 cm LV Systolic Length 2C 6.9 cm LA Volume 54.5 cm??? 18 - 58 / 22 - 52 cm??? M-MODE Aortic Root Diameter MM 3.4 cm MV E Point Septal Separation 1.4 cm DOPPLER AV Peak Velocity 415.5 cm/s AV Peak Gradient 69.1 mmHg AV Mean Velocity 320.1 cm/s AV Mean Gradient 45.7 mmHg AV Velocity Time Integral 115.2 cm AI Peak Velocity 357.8 cm/s AI Peak Gradient 51.2 mmHg AI Pressure Half Time 605.3 ms LVOT Peak Velocity 80.2 cm/s LVOT Peak Gradient 2.6 mmHg AV Area Cont Eq pk 0.9 cm??? MV Area PHT 3.5 cm??? Mitral E Point Velocity 70.2 cm/s Mitral A Point Velocity 113.2 cm/s Mitral E to A Ratio 0.6 MV Deceleration Time 219.8 ms MV E' Velocity 3.9 cm/s Mitral E to MV E' Ratio 18.0 TR Peak Velocity 292.8 cm/s TR Peak Gradient 34.3 mmHg Right Ventricular Systolic Press 39.3 mmHg FINDINGS Left Ventricle Left ventricular ejection fraction is estimated at 45 %. Left ventricular cavity size normal. Left ventricular wall thickness normal. Right Ventricle Normal right ventricular size and function. Mild pulmonary hypertension. Right Atrium Normal right atrial size. Left Atrium Mildly increased left atrial volume. Mitral Valve Mitral valve thickened. Mild mitral annular calcification. Mild mitral regurgitation. Aortic Valve Moderate to severe aortic valve sclerosis. Severe aortic stenosis with a peak velocity of 4.2 m/s, peak gradient 69 mmHg, mean smrurfap78 mmHg, and estimated aortic valve area of 0.9 cm???. Tricuspid Valve Structurally normal tricuspid valve. Mild tricuspid regurgitation. Pulmonic Valve Pulmonic valve not well visualized. Pericardium Normal pericardium. No pericardial effusion. Aorta Normal size aortic root and proximal ascending aorta. CONCLUSIONS Left ventricular ejection fraction 45% RVSP 39 Mild mitral regurgitation Severe aortic stenosis Mild tricuspid regurgitation Previewed by: Dr. Antoni Hinkle DO (Electronically Signed) Final Date: 22 November 2022 07:00
[2022-11-22] MEDS: SYMBICORT 160-4.5 MCG INHALER INHALATION SCH ×2 (07:48→20:16)
[2022-11-22] MEDS: IPRATROPIUM-ALBUTEROL 3 ML NEB INHALATION SCH ×4 (07:49→20:17)
[2022-11-22] MEDS: hydrOXYzine HCL 25 MG TAB PO SCH ×2 (08:40→16:50)
[2022-11-22] MEDS: DAPAGLIFLOZIN PROPANEDIOL 5 MG TABLET PO SCH (08:41)
[2022-11-22] MEDS: MELOXICAM 7.5 MG TAB PO SCH ×2 (08:41→16:51)
[2022-11-22] MEDS: ASPIRIN 81 MG PO SCH (08:42)
[2022-11-22] MEDS: SERTRALINE 100 MG TAB PO SCH (08:42)
[2022-11-22] MEDS: PANTOPRAZOLE 40 MG/10 ML VIAL IVP SCH (08:42)
[2022-11-22] MEDS: METOPROLOL TARTRATE 25 MG TAB PO SCH (08:42)
--- NOTE | 2022-11-22 10:00 | P.PN ---
Subjective Progress Note Date: 11/22/22 HISTORY OF PRESENTING ILLNESS 62-year-old with advanced COPD on 5 L oxygen chronically, severe aortic stenosis present to the hospital with worsening shortness of breath and chest pain. Patient reported that she has been noticing that her shortness of breath has been worsening for the last 1 week. One day prior to the hospital she experienced some chest pain along with shortness of breath. She has been having more cough and wheezing over last 1 week. She has difficulty breathing while laying flat and has to sit up. She is getting short of breath with minimal exertion like getting up from the bed. Her last echo from March 2022 showed preserved LV systolic function but showed severe aortic stenosis. She was recommended to follow up outpatient for TAVR evaluation which patient did not do. Patient denied any episodes of lightheadedness or dizziness or syncope DIAGNOSTICS EKG reveals sinus rhythm heart rate 94 bpm, left axis deviation, nonspecific T- wave inversions in inferior leads. This is not changed from prior exam. Chest xray no significant pulmonary congestion. Laboratory reviewed, sodium 135, potassium 5.0, bicarbonate 36, BUN 20, creatinine 0.5 , troponin 0.15, 0.19, 0.23 Current cardiac medications include lisinopril 30 mg, Farxiga, atorvastatin, aspirin, metoprolol 11/21 Patient is seen today in follow-up.patient has been continued on heparin drip his also under treatment for COPD exacerbation. Blood pressure 130/80, heart rate in the 80s. Patient continues to have significant shortness of breath, unable to lay flat for cardiac catheterization. Echocardiogram has been obtained report is pending. Patient did not have previous outpatient workup for TAVR. 11/22 Patient feels that her breathing status is a little bit better yesterday. Patient is sitting in a tripod position, noted significantly decreased breath sounds with expiratory wheezing. Patient would not be able to lie flat for cardiac catheterization at this point. She continues on treatment for COPD exacerbation. She remains on heparin drip. Blood pressure 131/75, heart rate in the 80s and 90s. Pulse ox 99% on 5 L nasal cannula. Echocardiogram reveals EF 45%, RVSP 39, mild mitral regurgitation, severe aortic stenosis, mild tricuspid regurgitation. PHYSICAL EXAMINATION Vital signs reviewed. CONSTITUTIONAL: No apparent distress. HEENT: Head is normocephalic. Pupils are equal, round. Sclerae anicteric. Mucous membranes of the mouth are moist. No JVD. No carotid bruit. CHEST EXAMINATION: Diffuse wheezing in bilateral lung elkins. Reduced air movement in bilateral lung elkins HEART EXAMINATION: Regular rate and rhythm. S1, S2 heard. No murmurs, gallops or rub. ABDOMEN: Soft, nontender. Positive bowel sounds. EXTREMITIES: , no lower extremity edema and no calf tenderness. NEUROLOGIC EXAMINATION: Patient is awake, alert and oriented x3. ASSESSMENT Severe COPD exacerbation Acute on chronic hypoxic and hypercapnic respiratory failure NSTEMI Severe aortic stenosis PLAN Continue aspirin, atorvastatin. Continue Farxiga, metoprolol 25 mg. Discontinue IV heparin IV heparin drip for 48 hours Patient will need a cardiac catheterization on this admission prior to discharge . At this time patient has difficulty laying flat. Once patient's respiratory status improves and patient is able to lay flat this schedule heart cardiac catheterization She needs outpatient TAVR workup Continue telemetry monitoring Avoid patient getting hypotensive or hypovolemic, as this may potentiate her severe aortic stenosis Nurse practitioner note has been reviewed, I agree with the documented findings and plan of care. Patient was seen and examined. Objective - Vital Signs Vital signs: Vital Signs Temp 98.2 F 11/21/22 20:00 Pulse 76 11/22/22 07:50 Resp 18 11/22/22 04:00 BP 128/72 11/22/22 04:00 Pulse Ox 97 11/22/22 07:50 FiO2 Intake & Output 11/21/22 11/22/22 11/22/22 18:59 06:59 18:59 Intake Total 250 240 Balance 250 240 Intake: Intake, IV Titration 250 Amount Heparin Sod,Pork in 0.45% 250 NaCl 25,000 unit In 0.45 % NaCl 1 250ml.bag @ 11. 7268 UNITS/KG/HR 10 mls/ hr IV .Q24H [facility] Rx#: [id number] Oral 240 Other: Voiding Method Toilet Toilet # Voids 3 2 - Labs CBC & Chem 7: 11/21/22 10:47 11/21/22 10:47 Labs: Abnormal Lab Results - Last 24 Hours (Table) 11/20/22 11/21/22 11/21/22 Range/Units 04:19 10:47 10:47 WBC (3.8-10.6) k/uL RBC (3.80-5.40) m/uL Hgb (11.4-16.0) gm/dL Hct (34.0-46.0) % Neutrophils # (1.3-7.7) k/uL Lymphocytes # (1.0-4.8) k/uL APTT 55.4 H (22.0-30.0) sec Sodium (137-145) mmol/L Carbon Dioxide (22-30) mmol/L BUN (7-17) mg/dL Glucose (74-99) mg/dL POC Glucose (mg/dL) (70-110) mg/dL Hemoglobin A1c 6.5 H (<=6.0) % Troponin I 0.154 H* (0.000-0.034) ng/mL 11/21/22 11/21/22 11/21/22 Range/Units 10:47 10:47 11:16 WBC 13.7 H (3.8-10.6) k/uL RBC 3.56 L (3.80-5.40) m/uL Hgb 11.0 L (11.4-16.0) gm/dL Hct 33.9 L (34.0-46.0) % Neutrophils # 12.9 H (1.3-7.7) k/uL Lymphocytes # 0.4 L (1.0-4.8) k/uL APTT (22.0-30.0) sec Sodium 135 L (137-145) mmol/L Carbon Dioxide 36 H (22-30) mmol/L BUN 19 H (7-17) mg/dL Glucose 137 H (74-99) mg/dL POC Glucose (mg/dL) 166 H (70-110) mg/dL Hemoglobin A1c (<=6.0) % Troponin I (0.000-0.034) ng/mL 11/21/22 11/21/22 11/22/22 Range/Units 16:11 20:10 05:56 WBC (3.8-10.6) k/uL RBC (3.80-5.40) m/uL Hgb (11.4-16.0) gm/dL Hct (34.0-46.0) % Neutrophils # (1.3-7.7) k/uL Lymphocytes # (1.0-4.8) k/uL APTT (22.0-30.0) sec Sodium (137-145) mmol/L Carbon Dioxide (22-30) mmol/L BUN (7-17) mg/dL Glucose (74-99) mg/dL POC Glucose (mg/dL) 133 H 196 H 120 H (70-110) mg/dL Hemoglobin A1c (<=6.0) % Troponin I (0.000-0.034) ng/mL 11/22/22 Range/Units 07:30 WBC (3.8-10.6) k/uL RBC (3.80-5.40) m/uL Hgb (11.4-16.0) gm/dL Hct (34.0-46.0) % Neutrophils # (1.3-7.7) k/uL Lymphocytes # (1.0-4.8) k/uL APTT 55.3 H (22.0-30.0) sec Sodium (137-145) mmol/L Carbon Dioxide (22-30) mmol/L BUN (7-17) mg/dL Glucose (74-99) mg/dL POC Glucose (mg/dL) (70-110) mg/dL Hemoglobin A1c (<=6.0) % Troponin I (0.000-0.034) ng/mL
[2022-11-22 11:32] LABS: Glucose,Whole Blood 100 mg/dL (70-110)
--- NOTE | 2022-11-22 11:36 | P.PN ---
Subjective Progress Note Date: 11/22/22 62-year-old female with history of severe COPD. Her FEV1 percent is 30. She seen in the emergency department on November 19, complaining of increasing shortness of breath. She was brought to the emergency room by EMS. She uses oxygen at 5 L at home. Currently she is on 6 L her in the hospital. She also admitted to some chest discomfort, cough, wheezing, and chest tightness. She was given a breathing treatment in route to the hospital. She denies any fever or chills. She's not having any nausea, vomiting, abdominal pain, or diarrhea. She denies any genitourinary complaints. She was only having problems with her breathing, for maybe 6 or 8 hours prior to admission. The patient was also placed on IV heparin, because of elevated troponins. We added Solu-Medrol. History included COPD, CAD, chronic hypoxemic respiratory failure, aortic valve stenosis, chronic back pain, and degenerative joint disease. White count 11.5, hemoglobin 11.5, hematocrit 35.9, and platelet count is normal. Sodium 135, potassium 5, chlorides 98, CO2 36, BUN 20, and creatinine 0.54. Glucose 159. Troponins were 0.234, 0.190, and 0.154. BNP was 432. The patient's chest x-ray shows some borderline cardiomegaly, some chronic changes, without an acute pulmonary process. On 11/21/2022, the patient is being seen for a follow-up. The patient is essentially the same, slightly improved compared to yesterday. No new complaints. She is very limited in terms of exercise capacity patient remains on 6 L of O2 nasal cannula with a pulse ox of 96%. No shortness of breath at rest and she gets short of breath with a minimum amount of activity. Blood work from today shows a WBC count 15.7 with a hemoglobin of 11 and the patient had a sodium level of 135, potassium level of 4.5, BUN is 19 with a creatinine of 0.5. Blood sugars at 166. She remains on IV heparin per cardiology and the patient is likely going to require a cardiac catheterization later stage once her COPD is improved and she is able to lay down flat for procedure. She is fairly of any chest pain for now. Her troponins peaked at 0.23. 11/22/2022, seeing the patient for a follow-up. The patient is still on5 L of oxygen by nasal cannula. She has no specific complaints. Limited improvement since yesterday. She is overall improving however. She remains on bronchodilators. She remains on steroids. She remains free of any chest pain and she is on IV heparin awaiting cardiac catheterization by cardiology. Objective - Vital Signs Vital signs: Vital Signs Temp 98.2 F 11/21/22 20:00 Pulse 93 11/22/22 08:00 Resp 16 11/22/22 08:00 BP 131/75 11/22/22 08:00 Pulse Ox 99 11/22/22 08:00 FiO2 Intake & Output 11/21/22 11/22/22 11/22/22 18:59 06:59 18:59 Intake Total 250 240 Balance 250 240 Intake: Intake, IV Titration 250 Amount Heparin Sod,Pork in 0.45% 250 NaCl 25,000 unit In 0.45 % NaCl 1 250ml.bag @ 11. 7268 UNITS/KG/HR 10 mls/ hr IV .Q24H [facility] Rx#: [id number] Oral 240 Other: Voiding Method Toilet Toilet # Voids 3 2 - Exam No acute distress, oriented 3. No conversational dyspnea or use of accessory muscles. The patient is currently on 6 L O2 nasal cannula HEENT examination is grossly unremarkable. Neck supple. Full range of motion. No adenopathy thyromegaly or neck vein di stention. Cardiovascular examination reveals regular rhythm rate. S1-S2 normal. No S3 or S4. No discernible murmur noted. Lungs reveal scattered bilateral rhonchi and crackles. Minimal expiratory wheezes. Breath sounds equal bilaterally. Abdomen soft bowel sounds are heard. No masses or tenderness. Extremities are intact. No cyanosis clubbing or edema. Skin is without rash or lesion. Neurologic examination is brief but nonfocal. - Labs CBC & Chem 7: 11/21/22 10:47 11/21/22 10:47 Labs: Abnormal Lab Results - Last 24 Hours (Table) 11/20/22 11/21/22 11/21/22 Range/Units 04:19 10:47 10:47 WBC (3.8-10.6) k/uL RBC (3.80-5.40) m/uL Hgb (11.4-16.0) gm/dL Hct (34.0-46.0) % Neutrophils # (1.3-7.7) k/uL Lymphocytes # (1.0-4.8) k/uL APTT 55.4 H (22.0-30.0) sec Sodium (137-145) mmol/L Carbon Dioxide (22-30) mmol/L BUN (7-17) mg/dL Glucose (74-99) mg/dL POC Glucose (mg/dL) (70-110) mg/dL Hemoglobin A1c 6.5 H (<=6.0) % Troponin I 0.154 H* (0.000-0.034) ng/mL 11/21/22 11/21/22 11/21/22 Range/Units 10:47 10:47 11:16 WBC 13.7 H (3.8-10.6) k/uL RBC 3.56 L (3.80-5.40) m/uL Hgb 11.0 L (11.4-16.0) gm/dL Hct 33.9 L (34.0-46.0) % Neutrophils # 12.9 H (1.3-7.7) k/uL Lymphocytes # 0.4 L (1.0-4.8) k/uL APTT (22.0-30.0) sec Sodium 135 L (137-145) mmol/L Carbon Dioxide 36 H (22-30) mmol/L BUN 19 H (7-17) mg/dL Glucose 137 H (74-99) mg/dL POC Glucose (mg/dL) 166 H (70-110) mg/dL Hemoglobin A1c (<=6.0) % Troponin I (0.000-0.034) ng/mL 11/21/22 11/21/22 11/22/22 Range/Units 16:11 20:10 05:56 WBC (3.8-10.6) k/uL RBC (3.80-5.40) m/uL Hgb (11.4-16.0) gm/dL Hct (34.0-46.0) % Neutrophils # (1.3-7.7) k/uL Lymphocytes # (1.0-4.8) k/uL APTT (22.0-30.0) sec Sodium (137-145) mmol/L Carbon Dioxide (22-30) mmol/L BUN (7-17) mg/dL Glucose (74-99) mg/dL POC Glucose (mg/dL) 133 H 196 H 120 H (70-110) mg/dL Hemoglobin A1c (<=6.0) % Troponin I (0.000-0.034) ng/mL 11/22/22 Range/Units 07:30 WBC (3.8-10.6) k/uL RBC (3.80-5.40) m/uL Hgb (11.4-16.0) gm/dL Hct (34.0-46.0) % Neutrophils # (1.3-7.7) k/uL Lymphocytes # (1.0-4.8) k/uL APTT 55.3 H (22.0-30.0) sec Sodium (137-145) mmol/L Carbon Dioxide (22-30) mmol/L BUN (7-17) mg/dL Glucose (74-99) mg/dL POC Glucose (mg/dL) (70-110) mg/dL Hemoglobin A1c (<=6.0) % Troponin I (0.000-0.034) ng/mL Assessment and Plan Plan: Acute hypoxemic respiratory failure, secondary to COPD exacerbation. The patient is currently on 6 L of O2 nasal cannula Acute COPD exacerbation in a patient with advanced COPD with an FEV1 of 30% of predicted Chronic hypoxic respiratory failure maintains on O2 at 5 L on outpatient basis Mild chest discomfort, rule out non-ST segment elevation myocardial infarction. History of coronary artery disease. History of aortic valve stenosis. Chronic low back pain. History of DJD. History of anxiety/depression. Plan: Clinically improving slowly We'll continue same treatment for now. Continue broke about it since steroids. Continue IV heparin Cardiac catheterization per cardiology. This can be done within next 24-48 hours. Keep oxygen at 6 L nasal cannula
--- NOTE | 2022-11-22 14:50 | P.PN ---
Subjective Progress Note Date: 11/22/22 This is a 62-year-old female with medical history significant for coronary artery disease, COPD, chronic hypercapnic respiratory failure patient is maintained on 5 L of nasal cannula at home, has aortic valve stenosis and chronic pain. Patient is a former smoker she has quit 10 years ago. Patient comes into the ER with concern for worsening shortness of breath and feels that she may be in a COPD flareup. She has been having shortness of breath at home and has been giving herself her updraft treatments and has not had any relief of symptoms. Patient came in via EMS she is having no chest pain palpitations no dizziness and lightheadedness or nausea vomiting or diarrhea and is not taking any fever or chills. Some workup on chest x-ray shows mild cardiomegaly and chronic parenchymal changes without acute pulmonary process. This is not a significant change from prior x-ray. She was discharged from this facility on July 19 where she was treated for COPD and respiratory failure patient was sent on an oral prednisone taper. Bladder from this admission shows a white count of 11.5, normal kidney function, sodium is 135, she does have a troponin elevation of 0.234, 0.10 and 0.154. Patient has a proBNP of 432. Admitted to medicine with a consult placed to cardiology for the troponin elevation and pulmonary services for the COPD. Currently patient is started on IV heparin drip and giv en a dose of IV steroids in the ER. Lungs are tight on examination patient family much air troponin elevation is likely due to hypoxia patient is given updrafts and will be started on systemic steroids. 11/21/2022 Issues evaluated today in the stepdown unit continues to report shortness of breath at rest and worsened with ambulation, unable to lie flat patient is sitting upright in the bed at all times. patient has been weaned up to 6 L of oxygen currently maintaining saturations of 94-96%. She remains afebrile. Currently on combination of Symbicort and DuoNeb scheduled and as needed. Co ntinues on IV site Medrol high dose 60 mg every 6 hours. Continues on IV heparin. Cardiology recommending cardiac catheterization prior to discharge pending improvement in respiratory status and echocardiogram is pending at this time. 11/22/2022 Patient is evaluated today sitting up in bed she continues to report shortness of breath and worsened with ambulation. She does report continued inability to lie flat while sleeping. Patient is worried about undergoing a cardiac catheterization as she also has chronic back pain and is unable to tolerate lying flat because of this as well. For now patient continues on a combination of Symbicort and DuoNeb and continues on IV Solu-Medrol with pulmonary following closely. Echocardiogram shows an EF of 45% with mild mitral regurgitation and severe aortic stenosis, mild tricuspid regurgitation, mild pulmonary hypertension. Procalcitonin level 0.09. Review of Systems Constitutional: Denied any fatigue denied any fever. Cardio vascular: denied any chest pain, palpitations Gastrointestinal: denied any nausea, vomiting, diarrhea Pulmonary: Reports shortness of breath and orthopnea Neurologic denied any new focal deficits All inpatient medications were reviewed and appropriate changes in these medications as dictated in the interval history and assessment and plan. PHYSICAL EXAMINATION: GENERAL: The patient is alert and oriented x3, not in any acute distress. Well developed, well nourished. Wears 5L of oxygen chronic HEENT: Pupils are round and equally reacting to light. EOMI. No scleral icterus. No conjunctival pallor. Normocephalic, atraumatic. No pharyngeal erythema. No thyromegaly. CARDIOVASCULAR: S1 and S2 present. No murmurs, rubs, or gallops. PULMONARY: Chest is clear to auscultation, Lungs are tight diminished, there are no crackles or wheezing patient is not moving much air. ABDOMEN: Soft, nontender, nondistended, normoactive bowel sounds. No palpable organomegaly. MUSCULOSKELETAL: No joint swelling or deformity. EXTREMITIES: No cyanosis, clubbing, or pedal edema. NEUROLOGICAL: Gross neurological examination did not reveal any focal deficits. SKIN: No rashes. Assessment -Acute COPD exacerbation -Acute on chronic hypoxemic and hypercapnic respiratory failure maintained on 6 L of home oxygen. -Troponin elevation rule out acute coronary syndrome cardiology has been consult and, proBNP is within normal limits for age at 432. This likely a troponin leak due to hypoxia however unable to complete rule out an ACS and cardiology recommending cardiac catheterization prior to DC once respiratory status improves. -Leukocytosis this is likely steroid induced was normal on admission. -Hx coronary artery disease -History of hypertension currently low normal and we will recommend holding lisinopril at this time -Severe end-stage COPD with an FEV1 about 30% of predicted -History of hyperlipidemia -History of angina pectorid -history of aortic stenosis severe did not go to outpatient follow up regarding possible TAVR. -chronic low back pain -Anxiety/depression -Former smoker 2 packs per day DVT prophylaxis patient is currently on IV heparin GI prophylaxis Protonix Full code Plan Patient continues on scheduled and as needed updrafts and recommending systemic steroids, pulmonary consult. Cardiology is in place in consultation recommending cardiac cath once respiratory status improves. Recommend to hold patient's lisinopril at this time due to low normal blood pressures continue with cardiac monitoring. Continue current medications and continue with IV heparin. The impression and plan of care has been dictated by Filomena Lewis Nurse Practitioner as directed. Dr. Farhan MD I have performed a history and physical examination and medical decision making of this patient, discussed the same with the dictator, and agree with the dictators assessment and plan as written, documented as a scribe. Based on total visit time, I have performed more than 50% of this visit. Objective - Vital Signs Vital signs: Vital Signs Temp 98.2 F 11/21/22 20:00 Pulse 93 11/22/22 08:00 Resp 16 11/22/22 08:00 BP 131/75 11/22/22 08:00 Pulse Ox 99 11/22/22 08:00 FiO2 Intake & Output 11/21/22 11/22/22 11/22/22 18:59 06:59 18:59 Intake Total 250 240 Balance 250 240 Intake: Intake, IV Titration 250 Amount Heparin Sod,Pork in 0.45% 250 NaCl 25,000 unit In 0.45 % NaCl 1 250ml.bag @ 11. 7268 UNITS/KG/HR 10 mls/ hr IV .Q24H [facility] Rx#: [id number] Oral 240 Other: Voiding Method Toilet Toilet # Voids 3 2 - Labs CBC & Chem 7: 11/21/22 10:47 11/21/22 10:47 Labs: Abnormal Lab Results - Last 24 Hours (Table) 11/20/22 11/21/22 11/21/22 Range/Units 04:19 10:47 10:47 WBC (3.8-10.6) k/uL RBC (3.80-5.40) m/uL Hgb (11.4-16.0) gm/dL Hct (34.0-46.0) % Neutrophils # (1.3-7.7) k/uL Lymphocytes # (1.0-4.8) k/uL APTT 55.4 H (22.0-30.0) sec Sodium (137-145) mmol/L Carbon Dioxide (22-30) mmol/L BUN (7-17) mg/dL Glucose (74-99) mg/dL POC Glucose (mg/dL) (70-110) mg/dL Hemoglobin A1c 6.5 H (<=6.0) % Troponin I 0.154 H* (0.000-0.034) ng/mL 11/21/22 11/21/22 11/21/22 Range/Units 10:47 10:47 11:16 WBC 13.7 H (3.8-10.6) k/uL RBC 3.56 L (3.80-5.40) m/uL Hgb 11.0 L (11.4-16.0) gm/dL Hct 33.9 L (34.0-46.0) % Neutrophils # 12.9 H (1.3-7.7) k/uL Lymphocytes # 0.4 L (1.0-4.8) k/uL APTT (22.0-30.0) sec Sodium 135 L (137-145) mmol/L Carbon Dioxide 36 H (22-30) mmol/L BUN 19 H (7-17) mg/dL Glucose 137 H (74-99) mg/dL POC Glucose (mg/dL) 166 H (70-110) mg/dL Hemoglobin A1c (<=6.0) % Troponin I (0.000-0.034) ng/mL 11/21/22 11/21/22 11/22/22 Range/Units 16:11 20:10 05:56 WBC (3.8-10.6) k/uL RBC (3.80-5.40) m/uL Hgb (11.4-16.0) gm/dL Hct (34.0-46.0) % Neutrophils # (1.3-7.7) k/uL Lymphocytes # (1.0-4.8) k/uL APTT (22.0-30.0) sec Sodium (137-145) mmol/L Carbon Dioxide (22-30) mmol/L BUN (7-17) mg/dL Glucose (74-99) mg/dL POC Glucose (mg/dL) 133 H 196 H 120 H (70-110) mg/dL Hemoglobin A1c (<=6.0) % Troponin I (0.000-0.034) ng/mL 11/22/22 Range/Units 07:30 WBC (3.8-10.6) k/uL RBC (3.80-5.40) m/uL Hgb (11.4-16.0) gm/dL Hct (34.0-46.0) % Neutrophils # (1.3-7.7) k/uL Lymphocytes # (1.0-4.8) k/uL APTT 55.3 H (22.0-30.0) sec Sodium (137-145) mmol/L Carbon Dioxide (22-30) mmol/L BUN (7-17) mg/dL Glucose (74-99) mg/dL POC Glucose (mg/dL) (70-110) mg/dL Hemoglobin A1c (<=6.0) % Troponin I (0.000-0.034) ng/mL Assessment and Plan Time with Patient: Less than 30
[2022-11-22 16:32] LABS: Glucose,Whole Blood 98 mg/dL (70-110)
[2022-11-22] MEDS: ATORVASTATIN 40 MG TAB PO SCH (16:51)
[2022-11-22 20:03] LABS: Glucose,Whole Blood 179 mg/dL (70-110)
[2022-11-23 05:56] LABS: Glucose,Whole Blood 182 mg/dL (70-110)
[2022-11-23] MEDS: methylPREDNISolone SOD SUCCI 125 MG/2 ML VIAL IV SCH ×4 (06:28→23:20)
[2022-11-23] MEDS: INSULIN ASPART (NovoLOG) 100 UNIT/ML VIAL SQ SCH ×4 (06:28→20:56)
[2022-11-23 07:50] LABS: Basophils # (A) 0.1 k/uL (0-0.2); Basophils % (A) 0 %; Eosinophils # (A) 0.1 k/uL (0-0.7); Eosinophils % (A) 1 %; HCT 33.4 % (34.0-46.0); HGB 10.8 gm/dL (11.4-16.0); Hypochromasia Slight; Lymphocytes # (A) 0.4 k/uL (1.0-4.8); Lymphocytes % (A) 4 %; MCH 30.8 pg (25.0-35.0); MCHC 32.2 g/dL (31.0-37.0); MCV 95.8 fL (80.0-100.0); Mean Platelet Volume 7.7; Monocytes # (A) 0.5 k/uL (0-1.0); Monocytes % (A) 5 %; Neutrophils # (A) 9.9 k/uL (1.3-7.7); Neutrophils % (A) 90 %; Platelet Count 186 k/uL (150-450); RBC 3.49 m/uL (3.80-5.40); RDW 13.5 % (11.5-15.5)
[2022-11-23 08:06] LABS: African American GFR (CKD) >90 (>60 ml/min/1.73 sqM); Blood Urea Nitrogen 24 mg/dL (7-17); Calcium 8.6 mg/dL (8.4-10.2); Chloride 97 mmol/L (98-107); Glucose 148 mg/dL (74-99); Magnesium 2.4 mg/dL (1.6-2.3); Non-African American GFR(CKD) >90 (>60 ml/min/1.73 sqM); Potassium 4.4 mmol/L (3.5-5.1); Sodium 137 mmol/L (137-145)
[2022-11-23 08:14] LABS: Anion Gap 4 mmol/L
[2022-11-23 08:34] LABS: Carbon Dioxide 36 mmol/L (22-30)
[2022-11-23] MEDS: IPRATROPIUM-ALBUTEROL 3 ML NEB INHALATION SCH ×4 (08:51→20:26)
[2022-11-23] MEDS: SYMBICORT 160-4.5 MCG INHALER INHALATION SCH ×2 (08:51→20:26)
[2022-11-23] MEDS: PANTOPRAZOLE 40 MG/10 ML VIAL IVP SCH (09:57)
[2022-11-23] MEDS: SERTRALINE 100 MG TAB PO SCH (09:58)
[2022-11-23] MEDS: MELOXICAM 7.5 MG TAB PO SCH ×2 (09:58→17:26)
[2022-11-23] MEDS: ASPIRIN 81 MG PO SCH (09:58)
[2022-11-23] MEDS: hydrOXYzine HCL 25 MG TAB PO SCH ×2 (09:58→17:26)
[2022-11-23] MEDS: DAPAGLIFLOZIN PROPANEDIOL 5 MG TABLET PO SCH (09:58)
[2022-11-23] MEDS: METOPROLOL TARTRATE 25 MG TAB PO SCH (09:58)
--- NOTE | 2022-11-23 10:22 | P.PN ---
Subjective Progress Note Date: 11/23/22 HISTORY OF PRESENTING ILLNESS 62-year-old with advanced COPD on 5 L oxygen chronically, severe aortic stenosis present to the hospital with worsening shortness of breath and chest pain. Patient reported that she has been noticing that her shortness of breath has been worsening for the last 1 week. One day prior to the hospital she experienced some chest pain along with shortness of breath. She has been having more cough and wheezing over last 1 week. She has difficulty breathing while laying flat and has to sit up. She is getting short of breath with minimal exertion like getting up from the bed. Her last echo from March 2022 showed preserved LV systolic function but showed severe aortic stenosis. She was recommended to follow up outpatient for TAVR evaluation which patient did not do. Patient denied any episodes of lightheadedness or dizziness or syncope DIAGNOSTICS EKG reveals sinus rhythm heart rate 94 bpm, left axis deviation, nonspecific T- wave inversions in inferior leads. This is not changed from prior exam. Chest xray no significant pulmonary congestion. Laboratory reviewed, sodium 135, potassium 5.0, bicarbonate 36, BUN 20, creatinine 0.5 , troponin 0.15, 0.19, 0.23 Current cardiac medications include lisinopril 30 mg, Farxiga, atorvastatin, aspirin, metoprolol 11/21 Patient is seen today in follow-up.patient has been continued on heparin drip his also under treatment for COPD exacerbation. Blood pressure 130/80, heart rate in the 80s. Patient continues to have significant shortness of breath, unable to lay flat for cardiac catheterization. Echocardiogram has been obtained report is pending. Patient did not have previous outpatient workup for TAVR. 11/22 Patient feels that her breathing status is a little bit better yesterday. Patient is sitting in a tripod position, noted significantly decreased breath sounds with expiratory wheezing. Patient would not be able to lie flat for cardiac catheterization at this point. She continues on treatment for COPD exacerbation. She remains on heparin drip. Blood pressure 131/75, heart rate in the 80s and 90s. Pulse ox 99% on 5 L nasal cannula. Echocardiogram reveals EF 45%, RVSP 39, mild mitral regurgitation, severe aortic stenosis, mild tricuspid regurgitation. 11/23 Patient continues to have significant shortness of breath secondary to COPD exacerbation, unable to lay flat for cardiac catheterization. No chest pain. Heart rate is in the 80s, blood pressure 121/74, pulse ox 94% on 6 L nasal c annula. Repeat blood work reveals WBC 11, hemoglobin 10.8, potassium 4.4, BUN 24 creatinine 0.59. IV heparin was discontinued yesterday PHYSICAL EXAMINATION Vital signs reviewed. CONSTITUTIONAL: No apparent distress. HEENT: Head is normocephalic. Pupils are equal, round. Sclerae anicteric. Mucous membranes of the mouth are moist. No JVD. No carotid bruit. CHEST EXAMINATION: Diffuse wheezing in bilateral lung elkins. Reduced air movement in bilateral lung elkins HEART EXAMINATION: Regular rate and rhythm. S1, S2 heard. No murmurs, gallops or rub. ABDOMEN: Soft, nontender. Positive bowel sounds. EXTREMITIES: , no lower extremity edema and no calf tenderness. NEUROLOGIC EXAMINATION: Patient is awake, alert and oriented x3. ASSESSMENT Severe COPD exacerbation Acute on chronic hypoxic and hypercapnic respiratory failure NSTEMI Severe aortic stenosis PLAN Continue aspirin, atorvastatin. Continue Farxiga, metoprolol 25 mg. Patient will need a cardiac catheterization on this admission prior to discharge. At this time patient has difficulty laying flat. Once patient's respiratory status improves and patient is able to lay flat this schedule heart cardiac catheterization She needs outpatient TAVR workup Continue telemetry monitoring Avoid patient getting hypotensive or hypovolemic, as this may potentiate her severe aortic stenosis Nurse practitioner note has been reviewed, I agree with the documented findings and plan of care. Patient was seen and examined. Objective - Vital Signs Vital signs: Vital Signs Temp 97.9 F 11/23/22 04:00 Pulse 80 11/23/22 09:09 Resp 19 11/23/22 04:00 BP 121/74 11/23/22 04:00 Pulse Ox 98 11/23/22 08:51 FiO2 Intake & Output 11/22/22 11/23/22 11/23/22 18:59 06:59 18:59 Weight 53.5 kg Other: Voiding Method Toilet Toilet # Voids 1 1 - Labs CBC & Chem 7: 11/23/22 06:48 11/23/22 06:48 Labs: Abnormal Lab Results - Last 24 Hours (Table) 11/22/22 11/23/22 11/23/22 Range/Units 20:01 05:53 06:48 WBC 11.0 H (3.8-10.6) k/uL RBC 3.49 L (3.80-5.40) m/uL Hgb 10.8 L (11.4-16.0) gm/dL Hct 33.4 L (34.0-46.0) % Neutrophils # 9.9 H (1.3-7.7) k/uL Lymphocytes # 0.4 L (1.0-4.8) k/uL Chloride (98-107) mmol/L Carbon Dioxide (22-30) mmol/L BUN (7-17) mg/dL Glucose (74-99) mg/dL POC Glucose (mg/dL) 179 H 182 H (70-110) mg/dL Magnesium (1.6-2.3) mg/dL 11/23/22 Range/Units 06:48 WBC (3.8-10.6) k/uL RBC (3.80-5.40) m/uL Hgb (11.4-16.0) gm/dL Hct (34.0-46.0) % Neutrophils # (1.3-7.7) k/uL Lymphocytes # (1.0-4.8) k/uL Chloride 97 L (98-107) mmol/L Carbon Dioxide 36 H (22-30) mmol/L BUN 24 H (7-17) mg/dL Glucose 148 H (74-99) mg/dL POC Glucose (mg/dL) (70-110) mg/dL Magnesium 2.4 H (1.6-2.3) mg/dL
[2022-11-23 11:38] LABS: Glucose,Whole Blood 166 mg/dL (70-110)
--- NOTE | 2022-11-23 13:17 | P.PN ---
Subjective Progress Note Date: 11/23/22 62-year-old female with history of severe COPD. Her FEV1 percent is 30. She seen in the emergency department on November 19, complaining of increasing shortness of breath. She was brought to the emergency room by EMS. She uses oxygen at 5 L at home. Currently she is on 6 L her in the hospital. She also admitted to some chest discomfort, cough, wheezing, and chest tightness. She was given a breathing treatment in route to the hospital. She denies any fever or chills. She's not having any nausea, vomiting, abdominal pain, or diarrhea. She denies any genitourinary complaints. She was only having problems with her breathing, for maybe 6 or 8 hours prior to admission. The patient was also placed on IV heparin, because of elevated troponins. We added Solu-Medrol. History included COPD, CAD, chronic hypoxemic respiratory failure, aortic valve stenosis, chronic back pain, and degenerative joint disease. White count 11.5, hemoglobin 11.5, hematocrit 35.9, and platelet count is normal. Sodium 135, potassium 5, chlorides 98, CO2 36, BUN 20, and creatinine 0.54. Glucose 159. Troponins were 0.234, 0.190, and 0.154. BNP was 432. The patient's chest x-ray shows some borderline cardiomegaly, some chronic changes, without an acute pulmonary process. On 11/21/2022, the patient is being seen for a follow-up. The patient is essentially the same, slightly improved compared to yesterday. No new complaints. She is very limited in terms of exercise capacity patient remains on 6 L of O2 nasal cannula with a pulse ox of 96%. No shortness of breath at rest and she gets short of breath with a minimum amount of activity. Blood work from today shows a WBC count 15.7 with a hemoglobin of 11 and the patient had a sodium level of 135, potassium level of 4.5, BUN is 19 with a creatinine of 0.5. Blood sugars at 166. She remains on IV heparin per cardiology and the patient is likely going to require a cardiac catheterization later stage once her COPD is improved and she is able to lay down flat for procedure. She is fairly of any chest pain for now. Her troponins peaked at 0.23. 11/22/2022, seeing the patient for a follow-up. The patient is still on5 L of oxygen by nasal cannula. She has no specific complaints. Limited improvement since yesterday. She is overall improving however. She remains on bronchodilators. She remains on steroids. She remains free of any chest pain and she is on IV heparin awaiting cardiac catheterization by cardiology. 11/23/2022, the patient is calm and comfortable without any chest pain. No respiratory difficulties. IV heparin has been discontinued and the patient has a switch to subcu heparin 5000 units every 8 hours. She remains on bronchodilators. She remains on steroids. She remains on oxygen and currently is on 7 L with a pulse ox of 98%. No specific complaints. Blood work shows a WBC count of 11, hemoglobin is at 10.8, BUN is 24 with a creatinine of 0.59. The patient is still being seen by cardiology. She was having a cardiac catheterization and she is to be seen at the TAVR clinic. Objective - Vital Signs Vital signs: Vital Signs Temp 97.1 F L 11/23/22 09:50 Pulse 69 11/23/22 09:50 Resp 18 11/23/22 09:50 BP 162/81 11/23/22 09:50 Pulse Ox 96 11/23/22 09:50 FiO2 Intake & Output 11/22/22 11/23/22 11/23/22 18:59 06:59 18:59 Weight 53.5 kg Other: Voiding Method Toilet Toilet Toilet # Voids 1 1 - Exam No acute distress, oriented 3. No conversational dyspnea or use of accessory muscles. The patient is currently on 6 L O2 nasal cannula HEENT examination is grossly unremarkable. Neck supple. Full range of motion. No adenopathy thyromegaly or neck vein distention. Cardiovascular examination reveals regular rhythm rate. S1-S2 normal. No S3 or S4. No discernible murmur noted. Lungs reveal scattered bilateral rhonchi and crackles. Minimal expiratory wheezes. Breath sounds equal bilaterally. Abdomen soft bowel sounds are heard. No masses or tenderness. Extremities are intact. No cyanosis clubbing or edema. Skin is without rash or lesion. Neurologic examination is brief but nonfocal. - Labs CBC & Chem 7: 11/23/22 06:48 11/23/22 06:48 Labs: Abnormal Lab Results - Last 24 Hours (Table) 11/22/22 11/23/22 11/23/22 Range/Units 20:01 05:53 06:48 WBC 11.0 H (3.8-10.6) k/uL RBC 3.49 L (3.80-5.40) m/uL Hgb 10.8 L (11.4-16.0) gm/dL Hct 33.4 L (34.0-46.0) % Neutrophils # 9.9 H (1.3-7.7) k/uL Lymphocytes # 0.4 L (1.0-4.8) k/uL Chloride (98-107) mmol/L Carbon Dioxide (22-30) mmol/L BUN (7-17) mg/dL Glucose (74-99) mg/dL POC Glucose (mg/dL) 179 H 182 H (70-110) mg/dL Magnesium (1.6-2.3) mg/dL 11/23/22 Range/Units 06:48 WBC (3.8-10.6) k/uL RBC (3.80-5.40) m/uL Hgb (11.4-16.0) gm/dL Hct (34.0-46.0) % Neutrophils # (1.3-7.7) k/uL Lymphocytes # (1.0-4.8) k/uL Chloride 97 L (98-107) mmol/L Carbon Dioxide 36 H (22-30) mmol/L BUN 24 H (7-17) mg/dL Glucose 148 H (74-99) mg/dL POC Glucose (mg/dL) (70-110) mg/dL Magnesium 2.4 H (1.6-2.3) mg/dL Assessment and Plan Plan: Acute hypoxemic respiratory failure, secondary to COPD exacerbation. The patient is currently on 5-7 L of O2 nasal cannula, clinically improving Acute COPD exacerbation in a patient with advanced COPD with an FEV1 of 30% of predicted Chronic hypoxic respiratory failure maintains on O2 at 5-7 L on outpatient basis Mild chest discomfort, rule out non-ST segment elevation myocardial infarction. History of coronary artery disease. History of aortic valve stenosis. The patient has severe aortic stenosis to be followed up by cardiology Chronic low back pain. History of DJD. History of anxiety/depression. Plan: Clinically improving slowly The patient is currently off IV heparin Oxygen can be titrated down as the patient's pulse ox is 98% We'll keep IV steroids for another 24 hours We'll continue same treatment for now. Continue broke about it since steroids. Cardiac catheterization per cardiology. This can be done within next 24-48 hours.
--- NOTE | 2022-11-23 14:50 | P.PN ---
Subjective Progress Note Date: 11/23/22 This is a 62-year-old female with medical history significant for coronary artery disease, COPD, chronic hypercapnic respiratory failure patient is maintained on 5 L of nasal cannula at home, has aortic valve stenosis and chronic pain. Patient is a former smoker she has quit 10 years ago. Patient comes into the ER with concern for worsening shortness of breath and feels that she may be in a COPD flareup. She has been having shortness of breath at home and has been giving herself her updraft treatments and has not had any relief of symptoms. Patient came in via EMS she is having no chest pain palpitations no dizziness and lightheadedness or nausea vomiting or diarrhea and is not taking any fever or chills. Some workup on chest x-ray shows mild cardiomegaly and chronic parenchymal changes without acute pulmonary process. This is not a significant change from prior x-ray. She was discharged from this facility on July 19 where she was treated for COPD and respiratory failure patient was sent on an oral prednisone taper. Bladder from this admission shows a white count of 11.5, normal kidney function, sodium is 135, she does have a troponin elevation of 0.234, 0.10 and 0.154. Patient has a proBNP of 432. Admitted to medicine with a consult placed to cardiology for the troponin elevation and pulmonary services for the COPD. Currently patient is started on IV heparin drip and giv en a dose of IV steroids in the ER. Lungs are tight on examination patient family much air troponin elevation is likely due to hypoxia patient is given updrafts and will be started on systemic steroids. 11/21/2022 Issues evaluated today in the stepdown unit continues to report shortness of breath at rest and worsened with ambulation, unable to lie flat patient is sitting upright in the bed at all times. patient has been weaned up to 6 L of oxygen currently maintaining saturations of 94-96%. She remains afebrile. Currently on combination of Symbicort and DuoNeb scheduled and as needed. Co ntinues on IV site Medrol high dose 60 mg every 6 hours. Continues on IV heparin. Cardiology recommending cardiac catheterization prior to discharge pending improvement in respiratory status and echocardiogram is pending at this time. 11/22/2022 Patient is evaluated today sitting up in bed she continues to report shortness of breath and worsened with ambulation. She does report continued inability to lie flat while sleeping. Patient is worried about undergoing a cardiac catheterization as she also has chronic back pain and is unable to tolerate lying flat because of this as well. For now patient continues on a combination of Symbicort and DuoNeb and continues on IV Solu-Medrol with pulmonary following closely. Echocardiogram shows an EF of 45% with mild mitral regurgitation and severe aortic stenosis, mild tricuspid regurgitation, mild pulmonary hypertension. Procalcitonin level 0.09. 11/23/2022 Patient continues to require oxygen via nasal cannula wears 5L at home currently on 6L patients oxygen saturation is adequate and probably doesn't need 6L of support. More air movement today does have some scattered end expiratory wheezing today. Mucinex is added. Patient is followed closely by cardiology and pulmonary services. Review of Systems Constitutional: Denied any fatigue denied any fever. Cardio vascular: denied any chest pain, palpitations Gastrointestinal: denied any nausea, vomiting, diarrhea Pulmonary: Reports shortness of breath and orthopnea Neurologic denied any new focal deficits All inpatient medications were reviewed and appropriate changes in these me dications as dictated in the interval history and assessment and plan. PHYSICAL EXAMINATION: GENERAL: The patient is alert and oriented x3, not in any acute distress. Well developed, well nourished. Wears 5L of oxygen chronic HEENT: Pupils are round and equally reacting to light. EOMI. No scleral icterus. No conjunctival pallor. Normocephalic, atraumatic. No pharyngeal erythema. No thyromegaly. CARDIOVASCULAR: S1 and S2 present. No murmurs, rubs, or gallops. PULMONARY: Scattered expiratory wheezing ABDOMEN: Soft, nontender, nondistended, normoactive bowel sounds. No palpable organomegaly. MUSCULOSKELETAL: No joint swelling or deformity. EXTREMITIES: No cyanosis, clubbing, or pedal edema. NEUROLOGICAL: Gross neurological examination did not reveal any focal deficits. SKIN: No rashes. Assessment -Acute COPD exacerbation -Acute on chronic hypoxemic and hypercapnic respiratory failure maintained on 6 L of home oxygen. -Troponin elevation rule out acute coronary syndrome cardiology has been consult and, proBNP is within normal limits for age at 432. unable to complete rule out an ACS and cardiology recommending cardiac catheterization prior to DC once respiratory status improves. -history of aortic stenosis severe did not go to outpatient follow up regarding possible TAVR. -Leukocytosis this is likely steroid induced was normal on admission. -Hx coronary artery disease -History of hypertension currently low normal and we will recommend holding lisinopril at this time -Severe end-stage COPD with an FEV1 about 30% of predicted -History of hyperlipidemia -History of angina pectorid -chronic low back pain -Anxiety/depression -Former smoker 2 packs per day DVT prophylaxis patient is currently on IV heparin GI prophylaxis Protonix Full code Plan Patient continues on scheduled and as needed updrafts and recommending systemic steroids, pulmonary consult. Cardiology is in place in consultation recommending cardiac cath once respiratory status improves. Patient will undergo cardiac catheterization within 24-48 hours once approved by pulmonary services patient will continue the same dose of IV solumedrol and pulmonary planning on tapering tomorrow. Mucinex added. The impression and plan of care has been dictated by Filomena Lewis Nurse Pr actitioner as directed. Dr. Farhan MD I have performed a history and physical examination and medical decision making of this patient, discussed the same with the dictator, and agree with the dicta tors assessment and plan as written, documented as a scribe. Based on total visit time, I have performed more than 50% of this visit. Objective - Vital Signs Vital signs: Vital Signs Temp 97.9 F 11/23/22 04:00 Pulse 80 11/23/22 09:09 Resp 19 11/23/22 04:00 BP 121/74 11/23/22 04:00 Pulse Ox 98 11/23/22 08:51 FiO2 Intake & Output 11/22/22 11/23/22 11/23/22 18:59 06:59 18:59 Weight 53.5 kg Other: Voiding Method Toilet Toilet # Voids 1 1 - Labs CBC & Chem 7: 11/23/22 06:48 11/23/22 06:48 Labs: Abnormal Lab Results - Last 24 Hours (Table) 11/22/22 11/23/22 11/23/22 Range/Units 20:01 05:53 06:48 WBC 11.0 H (3.8-10.6) k/uL RBC 3.49 L (3.80-5.40) m/uL Hgb 10.8 L (11.4-16.0) gm/dL Hct 33.4 L (34.0-46.0) % Neutrophils # 9.9 H (1.3-7.7) k/uL Lymphocytes # 0.4 L (1.0-4.8) k/uL Chloride (98-107) mmol/L Carbon Dioxide (22-30) mmol/L BUN (7-17) mg/dL Glucose (74-99) mg/dL POC Glucose (mg/dL) 179 H 182 H (70-110) mg/dL Magnesium (1.6-2.3) mg/dL 11/23/22 Range/Units 06:48 WBC (3.8-10.6) k/uL RBC (3.80-5.40) m/uL Hgb (11.4-16.0) gm/dL Hct (34.0-46.0) % Neutrophils # (1.3-7.7) k/uL Lymphocytes # (1.0-4.8) k/uL Chloride 97 L (98-107) mmol/L Carbon Dioxide 36 H (22-30) mmol/L BUN 24 H (7-17) mg/dL Glucose 148 H (74-99) mg/dL POC Glucose (mg/dL) (70-110) mg/dL Magnesium 2.4 H (1.6-2.3) mg/dL Assessment and Plan Time with Patient: Less than 30
[2022-11-23] MEDS: HEPARIN SODIUM,PORCINE/PF 5,000 UNIT/0.5 ML SYRINGE SQ SCH ×2 (15:46→23:19)
[2022-11-23 16:38] LABS: Glucose,Whole Blood 146 mg/dL (70-110)
[2022-11-23] MEDS: ATORVASTATIN 40 MG TAB PO SCH ×2 (17:25→17:26)
[2022-11-23 20:27] LABS: Glucose,Whole Blood 219 mg/dL (70-110)
[2022-11-23] MEDS: guaiFENesin 600 MG TABLET.ER PO SCH (20:56)
[2022-11-24 06:16] LABS: Glucose,Whole Blood 132 mg/dL (70-110)
[2022-11-24] MEDS: INSULIN ASPART (NovoLOG) 100 UNIT/ML VIAL SQ SCH ×2 (06:23→12:48)
[2022-11-24] MEDS: methylPREDNISolone SOD SUCCI 125 MG/2 ML VIAL IV SCH ×2 (06:34→11:20)
--- NOTE | 2022-11-24 07:36 | XR ---
EXAMINATION TYPE: XR chest 2V DATE OF EXAM: 11/24/2022 COMPARISON: 11/19/2022 HISTORY: 62-year-old female hypoxia TECHNIQUE: PA and lateral views FINDINGS: Heart upper limits of normal size. Mild hyperinflation. Mild patchy interstitial changes persist in t he mid and lower lungs. Somewhat more focal density at the right upper lobe. IMPRESSION: Similar patchy interstitial densities in the mid and lower lungs. Slightly more focal density right u pper lobe is similar.
[2022-11-24 07:55] VITALS: RESP 20
[2022-11-24] MEDS: IPRATROPIUM-ALBUTEROL 3 ML NEB INHALATION SCH ×2 (08:36→12:02)
[2022-11-24] MEDS: SYMBICORT 160-4.5 MCG INHALER INHALATION SCH (08:36)
[2022-11-24 08:49] LABS: African American GFR (CKD) >90 (>60 ml/min/1.73 sqM); Blood Urea Nitrogen 27 mg/dL (7-17); Calcium 8.9 mg/dL (8.4-10.2); Chloride 94 mmol/L (98-107); Glucose 129 mg/dL (74-99); Non-African American GFR(CKD) >90 (>60 ml/min/1.73 sqM); Sodium 135 mmol/L (137-145)
[2022-11-24 08:56] LABS: Anion Gap 3 mmol/L
[2022-11-24 09:09] LABS: Carbon Dioxide 38 mmol/L (22-30)
[2022-11-24] MEDS: MELOXICAM 7.5 MG TAB PO SCH (09:10)
[2022-11-24] MEDS: SERTRALINE 100 MG TAB PO SCH (09:11)
[2022-11-24] MEDS: hydrOXYzine HCL 25 MG TAB PO SCH (09:11)
[2022-11-24] MEDS: ASPIRIN 81 MG PO SCH (09:11)
[2022-11-24] MEDS: guaiFENesin 600 MG TABLET.ER PO SCH (09:11)
[2022-11-24] MEDS: PANTOPRAZOLE 40 MG/10 ML VIAL IVP SCH (09:11)
[2022-11-24] MEDS: METOPROLOL TARTRATE 25 MG TAB PO SCH (09:11)
[2022-11-24] MEDS: DAPAGLIFLOZIN PROPANEDIOL 5 MG TABLET PO SCH (09:11)
[2022-11-24] MEDS: HEPARIN SODIUM,PORCINE/PF 5,000 UNIT/0.5 ML SYRINGE SQ SCH (09:12)
[2022-11-24] MEDS ORDERED: lisinopriL 5 MG TAB PO SCH (09:45)
--- NOTE | 2022-11-24 09:45 | P.PN ---
Subjective Progress Note Date: 11/24/22 HISTORY OF PRESENTING ILLNESS 62-year-old with advanced COPD on 5 L oxygen chronically, severe aortic stenosis present to the hospital with worsening shortness of breath and chest pain. Patient reported that she has been noticing that her shortness of breath has been worsening for the last 1 week. One day prior to the hospital she experienced some chest pain along with shortness of breath. She has been having more cough and wheezing over last 1 week. She has difficulty breathing while laying flat and has to sit up. She is getting short of breath with minimal exertion like getting up from the bed. Her last echo from March 2022 showed preserved LV systolic function but showed severe aortic stenosis. She was recommended to follow up outpatient for TAVR evaluation which patient did not do. Patient denied any episodes of lightheadedness or dizziness or syncope DIAGNOSTICS EKG reveals sinus rhythm heart rate 94 bpm, left axis deviation, nonspecific T- wave inversions in inferior leads. This is not changed from prior exam. Chest xray no significant pulmonary congestion. Laboratory reviewed, sodium 135, potassium 5.0, bicarbonate 36, BUN 20, creatinine 0.5 , troponin 0.15, 0.19, 0.23 Current cardiac medications include lisinopril 30 mg, Farxiga, atorvastatin, aspirin, metoprolol 11/21 Patient is seen today in follow-up.patient has been continued on heparin drip his also under treatment for COPD exacerbation. Blood pressure 130/80, heart rate in the 80s. Patient continues to have significant shortness of breath, unable to lay flat for cardiac catheterization. Echocardiogram has been obtained report is pending. Patient did not have previous outpatient workup for TAVR. 11/22 Patient feels that her breathing status is a little bit better yesterday. Patient is sitting in a tripod position, noted significantly decreased breath sounds with expiratory wheezing. Patient would not be able to lie flat for cardiac catheterization at this point. She continues on treatment for COPD exacerbation. She remains on heparin drip. Blood pressure 131/75, heart rate in the 80s and 90s. Pulse ox 99% on 5 L nasal cannula. Echocardiogram reveals EF 45%, RVSP 39, mild mitral regurgitation, severe aortic stenosis, mild tricuspid regurgitation. 11/23 Patient continues to have significant shortness of breath secondary to COPD exacerbation, unable to lay flat for cardiac catheterization. No chest pain. Heart rate is in the 80s, blood pressure 121/74, pulse ox 94% on 6 L nasal c annula. Repeat blood work reveals WBC 11, hemoglobin 10.8, potassium 4.4, BUN 24 creatinine 0.59. IV heparin was discontinued yesterday 11/24 Patient is seen today in follow-up and continues to have significant shortness of breath, wheezing and tightness in her lungs secondary to COPD exacerbation which is being treated by her pulmonary physician. She is currently on 5 L nasal cannula which is her home oxygen level. Pulse ox is 99% on 5 L, heart rate is in the 80s and 90s, blood pressure 175/87. PHYSICAL EXAMINATION Vital signs reviewed. CONSTITUTIONAL: No apparent distress. HEENT: Head is normocephalic. Pupils are equal, round. Sclerae anicteric. Mucous membranes of the mouth are moist. No JVD. No carotid bruit. CHEST EXAMINATION: Diffuse wheezing in bilateral lung elkins. Reduced air movement in bilateral lung elkins HEART EXAMINATION: Regular rate and rhythm. S1, S2 heard. No murmurs, gallops or rub. ABDOMEN: Soft, nontender. Positive bowel sounds. EXTREMITIES: , no lower extremity edema and no calf tenderness. NEUROLOGIC EXAMINATION: Patient is awake, alert and oriented x3. ASSESSMENT Severe COPD exacerbation Acute on chronic hypoxic and hypercapnic respiratory failure NSTEMI Severe aortic stenosis PLAN Continue aspirin, atorvastatin. Continue Farxiga, metoprolol 25 mg. Patient will need a cardiac catheterization on this admission prior to discharge. At this time patient has difficulty laying flat. Once patient's respiratory status improves and patient is able to lay flat this schedule heart cardiac catheterization She needs outpatient TAVR workup Continue telemetry monitoring Add lisinopril 5 mg daily for blood pressure control Avoid patient getting hypotensive or hypovolemic, as this may potentiate her severe aortic stenosis Nurse practitioner note has been reviewed, I agree with the documented findings and plan of care. Patient was seen and examined. Objective - Vital Signs Vital signs: Vital Signs Temp 97.9 F 11/24/22 07:54 Pulse 76 11/24/22 08:36 Resp 20 11/24/22 07:54 BP 175/87 11/24/22 07:54 Pulse Ox 99 11/24/22 07:54 FiO2 Intake & Output 11/23/22 11/24/22 11/24/22 18:59 06:59 18:59 Intake Total 180 Balance 180 Weight 88.2 kg Intake: Oral 180 Other: Voiding Method Toilet Bedside Commode # Voids 2 # Bowel Movements 1 - Labs CBC & Chem 7: 11/23/22 06:48 11/24/22 07:23 Labs: Abnormal Lab Results - Last 24 Hours (Table) 11/23/22 11/23/22 11/23/22 Range/Units 11:37 16:36 20:26 POC Glucose (mg/dL) 166 H 146 H 219 H (70-110) mg/dL 11/24/22 Range/Units 06:14 POC Glucose (mg/dL) 132 H (70-110) mg/dL
[2022-11-24 11:17] VITALS: BMI 32.3
[2022-11-24 11:36] VITALS: BP 141/77; TEMP 97.6
[2022-11-24 11:36] LABS: Glucose,Whole Blood 208 mg/dL (70-110)
[2022-11-24 12:06] VITALS: PULSE 76
[2022-11-24] MEDS ORDERED: FAMOTIDINE 20 MG TAB PO SCH (13:15)
--- NOTE | 2022-11-24 14:20 | P.PN ---
Subjective Progress Note Date: 11/24/22 62-year-old female with history of severe COPD. Her FEV1 percent is 30. She seen in the emergency department on November 19, complaining of increasing shortness of breath. She was brought to the emergency room by EMS. She uses oxygen at 5 L at home. Currently she is on 6 L her in the hospital. She also admitted to some chest discomfort, cough, wheezing, and chest tightness. She was given a breathing treatment in route to the hospital. She denies any fever or chills. She's not having any nausea, vomiting, abdominal pain, or diarrhea. She denies any genitourinary complaints. She was only having problems with her breathing, for maybe 6 or 8 hours prior to admission. The patient was also placed on IV heparin, because of elevated troponins. We added Solu-Medrol. History included COPD, CAD, chronic hypoxemic respiratory failure, aortic valve stenosis, chronic back pain, and degenerative joint disease. White count 11.5, hemoglobin 11.5, hematocrit 35.9, and platelet count is normal. Sodium 135, potassium 5, chlorides 98, CO2 36, BUN 20, and creatinine 0.54. Glucose 159. Troponins were 0.234, 0.190, and 0.154. BNP was 432. The patient's chest x-ray shows some borderline cardiomegaly, some chronic changes, without an acute pulmonary process. On 11/21/2022, the patient is being seen for a follow-up. The patient is essentially the same, slightly improved compared to yesterday. No new complaints. She is very limited in terms of exercise capacity patient remains on 6 L of O2 nasal cannula with a pulse ox of 96%. No shortness of breath at rest and she gets short of breath with a minimum amount of activity. Blood work from today shows a WBC count 15.7 with a hemoglobin of 11 and the patient had a sodium level of 135, potassium level of 4.5, BUN is 19 with a creatinine of 0.5. Blood sugars at 166. She remains on IV heparin per cardiology and the patient is likely going to require a cardiac catheterization later stage once her COPD is improved and she is able to lay down flat for procedure. She is fairly of any chest pain for now. Her troponins peaked at 0.23. 11/22/2022, seeing the patient for a follow-up. The patient is still on5 L of oxygen by nasal cannula. She has no specific complaints. Limited improvement since yesterday. She is overall improving however. She remains on bronchodilators. She remains on steroids. She remains free of any chest pain and she is on IV heparin awaiting cardiac catheterization by cardiology. 11/23/2022, the patient is calm and comfortable without any chest pain. No respiratory difficulties. IV heparin has been discontinued and the patient has a switch to subcu heparin 5000 units every 8 hours. She remains on bronchodilators. She remains on steroids. She remains on oxygen and currently is on 7 L with a pulse ox of 98%. No specific complaints. Blood work shows a WBC count of 11, hemoglobin is at 10.8, BUN is 24 with a creatinine of 0.59. The patient is still being seen by cardiology. She was having a cardiac catheterization and she is to be seen at the TAVR clinic. 13 2022, the patient has no specific complaints and she is feeling better. She remains on broke about it since steroids. No other complaints otherwise for now. Patient was seen by cardiology and the patient is not going to have any intervention during the current hospitalization. Is being considered to be done on outpatient basis. The patient is free of any chest pain. The patient's currently off IV heparin. Objective - Vital Signs Vital signs: Vital Signs Temp 97.6 F 11/24/22 11:35 Pulse 93 11/24/22 11:35 Resp 20 11/24/22 11:35 BP 141/77 11/24/22 11:35 Pulse Ox 97 11/24/22 11:35 FiO2 Intake & Output 11/23/22 11/24/22 11/24/22 18:59 06:59 18:59 Intake Total 180 Balance 180 Weight 88.2 kg 88.2 kg Intake: Oral 180 Other: Voiding Method Toilet Bedside Commode # Voids 2 # Bowel Movements 1 - Exam No acute distress, oriented 3. No conversational dyspnea or use of accessory muscles. The patient is currently on 6 L O2 nasal cannula HEENT examination is grossly unremarkable. Neck supple. Full range of motion. No adenopathy thyromegaly or neck vein distention. Cardiovascular examination reveals regular rhythm rate. S1-S2 normal. No S3 or S4. No discernible murmur noted. Lungs reveal scattered bilateral rhonchi and crackles. Minimal expiratory wheezes. Breath sounds equal bilaterally. Abdomen soft bowel sounds are heard. No masses or tenderness. Extremities are intact. No cyanosis clubbing or edema. Skin is without rash or lesion. Neurologic examination is brief but nonfocal. - Labs CBC & Chem 7: 11/23/22 06:48 11/24/22 07:23 Labs: Abnormal Lab Results - Last 24 Hours (Table) 11/23/22 11/23/22 11/23/22 Range/Units 11:37 16:36 20:26 Sodium (137-145) mmol/L Chloride (98-107) mmol/L Carbon Dioxide (22-30) mmol/L BUN (7-17) mg/dL Glucose (74-99) mg/dL POC Glucose (mg/dL) 166 H 146 H 219 H (70-110) mg/dL 11/24/22 11/24/22 11/24/22 Range/Units 06:14 07:23 11:35 Sodium 135 L (137-145) mmol/L Chloride 94 L (98-107) mmol/L Carbon Dioxide 38 H (22-30) mmol/L BUN 27 H (7-17) mg/dL Glucose 129 H (74-99) mg/dL POC Glucose (mg/dL) 132 H 208 H (70-110) mg/dL Assessment and Plan Plan: Acute hypoxemic respiratory failure, secondary to COPD exacerbation. The patient is currently on 5-7 L of O2 nasal cannula, clinically improving Acute COPD exacerbation in a patient with advanced COPD with an FEV1 of 30% of predicted Chronic hypoxic respiratory failure maintains on O2 at 5-7 L on outpatient basis Mild chest discomfort, rule out non-ST segment elevation myocardial infarction. History of coronary artery disease. History of aortic valve stenosis. The patient has severe aortic stenosis to be followed up by cardiology Chronic low back pain. History of DJD. History of anxiety/depression. Plan: Clinically improving slowly The patient is currently off IV heparin Start IV Solu-Medrol put the patient on prednisone burst taper Oxygen can be titrated down as the patient's pulse ox is 98% Outpatient workup for aortic valve stenosis and coronary artery disease pH she would likely need a cardiac catheterization and be seen at the TAVR clinic.
[2022-11-24] MEDS ORDERED: predniSONE 20 MG TAB PO SCH (15:00)
--- NOTE | 2022-11-25 15:56 | P.DS ---
Providers Date of admission: 11/19/22 21:43 Attending physician: Seferino Crawford Consults: 11/19/22 21:43 Consult Physician Urgent Consulting Provider: Júnior Morgan Consult Reason/Comments: COPD exacerbation Do you want consulting provider notified?: Yes Consult Physician Urgent Consulting Provider: Ritchie Elizabeth Consult Reason/Comments: Elevated troponin Do you want consulting provider notified?: Yes Primary care physician: Jeremy Ennis Hospital Course: Final Diagnosis -Acute COPD exacerbation -Acute on chronic hypoxemic and hypercapnic respiratory failure maintained on 6 L of home oxygen. -Troponin elevation rule out acute coronary syndrome cardiology has been consult and, proBNP is within normal limits for age at 89. unable to complete rule out an ACS and cardiology recommending cardiac catheterization once respiratory status improves. -Severe aortic stenosis noncompliant with follow-up patient needs to be evaluated for TAVR -Leukocytosis this is likely steroid induced was normal on admission. -Hx coronary artery disease -History of hypertension -Severe end-stage COPD with an FEV1 about 30% of predicted -History of hyperlipidemia -History of angina pectorid -chronic low back pain -Anxiety/depression -Former smoker 2 packs per day DVT prophylaxis patient is currently on IV heparin GI prophylaxis Protonix Full code Discharge Disposition Patient is stable for discharge home has overall guarded prognosis due to her severe end-stage COPD and chronic respiratory failure. Patient continues on her home dose of oxygen at 4-6 L. She is continued on oral steroid taper and upd rafts, as well as mucinex. Needs follow up and evaluation for TAVR outpatient. Lisinopril was held on admission and blood pressure had improved it was low- normal patient is discharged on 5 mg of lisinopril daily which is a decreased dose from prior. Patient is a high risk for readmission. With her PCP Dr. Osiris Ennis in 1-2 days patient also to follow-up with Dr Morgan and Dr Hinkle sent with [facility]. Patient was requesting information on visiting physicians due to her respiratory status she states it makes it hard for her to be compliant with her follow-up appointments. Information was provided. Hospital Course This is a 62-year-old female with medical history significant for coronary artery disease, COPD, chronic hypercapnic respiratory failure patient is maintained on 5 L of nasal cannula at home, has aortic valve stenosis and chronic pain. Patient is a former smoker she has quit 10 years ago. Patient comes into the ER with concern for worsening shortness of breath and feels that she may be in a COPD flareup. She has been having shortness of breath at home and has been giving herself her updraft treatments and has not had any relief of symptoms. Patient came in via EMS she is having no chest pain palpitations no dizziness and lightheadedness or nausea vomiting or diarrhea and is not taking any fever or chills. Some workup on chest x-ray shows mild cardiomegaly and chronic parenchymal changes without acute pulmonary process. This is not a significant change from prior x-ray. She was discharged from this facility on July 19 where she was treated for COPD and respiratory failure patient was sent on an oral prednisone taper. Inital work up shows a white count of 11.5, normal kidney function, sodium is 135, she does have a troponin elevation of 0.234, 0.10 and 0.154. Patient has a proBNP of 432. Admitted to medicine with a consult placed to cardiology for the troponin elevation and pulmonary services for the COPD. she was started on systemic steroids and updrafts for her COPD as well as Mucinex and her acid her status had improved. Cardiology evaluated the patient recommending echocardiogram which reveals an EF of 45% with mild mitral regurgitation and severe aortic stenosis. Patient has had recommended to follow-up for evaluation of Her which she has not done so. Cardiology was initially recommending a cardiac catheterization prior to discharge. However after patient completes an oral steroid taper on discharge cardiology will follow from the office. Most recent chest x-ray showing some patchy interstitial densities in the middle and lower lungs slightly focal density right upper lobe is similar. Patient with improved aeration does have some scattered expiratory wheezing. She is currently denying any chest pain does have shortness of breath worse with exertion and unable to lie flat. No nausea vomiting or diarrhea. She is alert 3 focal nodule that was negative. Patient will be discharged home with the above-mentioned recommendations including oral steroid taper. Please see medication reconciliation for list of current medication. Thank you for allowing us to participate in the care of this patient. The impression and plan of care has been dictated by Filomena Lewis, Nurse Practitioner as directed. Dr. Farhan MD I have performed a history and physical examination and medical decision making of this patient, discussed the same with the dictator, and agree with the dictators assessment and plan as written, documented as a scribe. Based on total visit time, I have performed more than 50% of this visit. Patient Condition at Discharge: Fair Plan - Discharge Summary Discharge Rx Participant: No New Discharge Prescriptions: New predniSONE 0 mg PO DIRECTED 17 Days #44 tab guaiFENesin [Mucinex] 600 mg PO Q12HR 5 Days #10 tab lisinopriL [Zestril] 5 mg PO DAILY #30 tab Continue Meloxicam [Mobic] 7.5 mg PO BID@0900,1730 Albuterol Inhaler [Ventolin Hfa Inhaler] 2 puff INHALATION RT-Q4H PRN PRN Reason: Shortness Of Breath Aspirin 81 mg PO DAILY 30 Days #30 tab Yupelri 175mcg/3ml 175 mcg INHALATION RT-DAILY Atorvastatin [Lipitor] 40 mg PO HS@1730 Sertraline [Zoloft] 100 mg PO DAILY Budesonide/Formoterol Fumarate [Symbicort 160-4.5 Mcg Inhaler] 2 puff INHALATION RT-BID Metoprolol Tartrate [Lopressor] 25 mg PO DAILY Ipratropium-Albuterol Nebulize [Duoneb 0.5 mg-3 mg/3 ml Soln] 3 ml INHALATION RT-QID PRN PRN Reason: Shortness Of Breath Dapagliflozin Propanediol [Farxiga] 5 mg PO DAILY hydrOXYzine HCL [Atarax] 25 mg PO BID@0900,1730 Discontinued lisinopriL [Zestril] 30 mg PO DAILY Discharge Medication List Albuterol Inhaler [Ventolin Hfa Inhaler] 2 puff INHALATION RT-Q4H PRN 04/09/22 [History] Atorvastatin [Lipitor] 40 mg PO HS@1730 04/09/22 [History] Meloxicam [Mobic] 7.5 mg PO BID@0900,1730 04/09/22 [History] Aspirin 81 mg PO DAILY 30 Days #30 tab 04/12/22 [Rx] Sertraline [Zoloft] 100 mg PO DAILY 06/15/22 [History] Budesonide/Formoterol Fumarate [Symbicort 160-4.5 Mcg Inhaler] 2 puff INHALATION RT-BID 07/13/22 [History] Ipratropium-Albuterol Nebulize [Duoneb 0.5 mg-3 mg/3 ml Soln] 3 ml INHALATION RT-QID PRN 09/23/22 [History] Metoprolol Tartrate [Lopressor] 25 mg PO DAILY 09/23/22 [History] Dapagliflozin Propanediol [Farxiga] 5 mg PO DAILY 11/19/22 [History] Yupelri 175mcg/3ml 175 mcg INHALATION RT-DAILY 11/19/22 [History] hydrOXYzine HCL [Atarax] 25 mg PO BID@0900,1730 11/19/22 [History] guaiFENesin [Mucinex] 600 mg PO Q12HR 5 Days #10 tab 11/24/22 [Rx] lisinopriL [Zestril] 5 mg PO DAILY #30 tab 11/24/22 [Rx] predniSONE 0 mg PO DIRECTED 17 Days #44 tab 11/24/22 [Rx] Follow up Appointment(s)/Referral(s): [facility], [NON-STAFF] - Antoni Hinkle DO [STAFF PHYSICIAN] - 1 Week Júnior Morgan DO [Doctor of Osteopathic Medicine] - 1 Week Jeremy Ennis DO [Primary Care Provider] - 1-2 days Kenn Mulligan MD [REFERRING] - Ambulatory/Diagnostic Orders: Basic Metabolic Panel [LAB.AMB] Time Frame: 3 Days, Location: None Selected Complete Blood Count w/diff [LAB.AMB] Location: None Selected Patient Instructions/Handouts: Using Oxygen at Home (DC), COPD (Chronic Obstructive Pulmonary Disease) (DC) Activity/Diet/Wound Care/Special Instructions: Please provide patient with the information for Visiting physicians Discharge Disposition: HOME WITH HOME HEALTH SERVICES
== END 2022-11-24 14:28 | disposition home health service (06) | DRG 280 ==
LOC: EC 19:42 → 3SCARD 21:43
PROVIDERS: ADMIT Hospitalist; ATTEND Hospitalist
DX: I21.4 Non-ST elevation (NSTEMI) myocardial infarction (principal); J96.21 Acute and chronic respiratory failure with hypoxia; J96.22 Acute and chronic respiratory failure with hypercapnia; J44.1 Chronic obstructive pulmonary disease with (acute) exacerbation; I25.10 Atherosclerotic heart disease of native coronary artery without angina pectoris; T38.0X5A Adverse effect of glucocorticoids and synthetic analogues, initial encounter; F32.A Depression, unspecified; I27.20 Pulmonary hypertension, unspecified; I08.3 Combined rheumatic disorders of mitral, aortic and tricuspid valves; I10 Essential (primary) hypertension; E78.5 Hyperlipidemia, unspecified; G89.29 Other chronic pain; M54.50 Low back pain, unspecified; F41.9 Anxiety disorder, unspecified; Z87.891 Personal history of nicotine dependence; D72.829 Elevated white blood cell count, unspecified; X58.XXXA Exposure to other specified factors, initial encounter; Z79.1 Long term (current) use of non-steroidal anti-inflammatories (NSAID); Z79.51 Long term (current) use of inhaled steroids; Z79.82 Long term (current) use of aspirin; Z79.84 Long term (current) use of oral hypoglycemic drugs; Z79.899 Other long term (current) drug therapy; Z82.49 Family history of ischemic heart disease and other diseases of the circulatory system; Z91.199 Patient's noncompliance with other medical treatment and regimen due to unspecified reason; Z98.51 Tubal ligation status; Z98.42 Cataract extraction status, left eye; Z98.41 Cataract extraction status, right eye
CPT/HCPCS: 36415; 71045; 71046; 80048; 80053; 83036; 83735; 83880; 84145; 84484; 85025; 85379; 85610; 85730; 93005; 93306; 94640; 94760; 96365; 96366; 96375; 99291

== ENCOUNTER 2023-04-19 04:18 | Inpatient (IN) | payer MEDICARE, OTHER ==
[2023-04-19] MEDS ORDERED: IPRATROPIUM-ALBUTEROL 3 ML NEB INHALATION STA (04:31)
[2023-04-19] MEDS ORDERED: LORazepam 2 MG/ML INJ IV STA ×2 (04:35→09:54)
[2023-04-19 05:21] LABS: Basophils # (A) 0.1 k/uL (0-0.2); Basophils % (A) 0 %; Eosinophils # (A) 0.3 k/uL (0-0.7); Eosinophils % (A) 1 %; HCT 42.9 % (34.0-46.0); HGB 13.6 gm/dL (11.4-16.0); Hypochromasia Slight; Lymphocytes # (A) 1.3 k/uL (1.0-4.8); Lymphocytes % (A) 5 %; MCH 30.3 pg (25.0-35.0); MCHC 31.7 g/dL (31.0-37.0); MCV 95.6 fL (80.0-100.0); Monocytes # (A) 1.1 k/uL (0-1.0); Monocytes % (A) 4 %; Neutrophils # (A) 23.9 k/uL (1.3-7.7); Neutrophils % (A) 90 %; Platelet Count 237 k/uL (150-450); RBC 4.49 m/uL (3.80-5.40); RDW 13.6 % (11.5-15.5); WBC 26.7 k/uL (3.8-10.6)
[2023-04-19 05:40] LABS: Partial Thromboplastin Time 23.4 sec (22.0-30.0); Prothrombin Time 10.7 sec (10.0-12.5)
[2023-04-19 05:44] LABS: VBG PH 7.31 (7.31-7.41)
[2023-04-19] MEDS ORDERED: cefTRIAXone IN SWFI 1,000 MG/10 ML SYRINGE IVP STA (05:56)
[2023-04-19] MEDS ORDERED: AZITHROMYCIN 500 MG in SODIUM CHLORIDE 0.9% 250 ML IVPB STA (05:57)
[2023-04-19 06:00] LABS: ALT 20 U/L (4-34); African American GFR (CKD) >90 (>60 ml/min/1.73 sqM); Blood Urea Nitrogen 18 mg/dL (7-17); Calcium 9.1 mg/dL (8.4-10.2); Chloride 89 mmol/L (98-107); Non-African American GFR(CKD) >90 (>60 ml/min/1.73 sqM); Sodium 134 mmol/L (137-145)
[2023-04-19 06:06] LABS: Anion Gap 9 mmol/L; Carbon Dioxide 36 mmol/L (22-30)
--- NOTE | 2023-04-19 06:08 | ED ---
SOB HPI - General Chief Complaint: Shortness of Breath Stated Complaint: SOB Source: patient, EMS Mode of arrival: EMS Limitations: no limitations - History of Present Illness Initial Comments: 62yo F with PMH of COPD the emergency department today via ambulance for evaluation of respiratory distress. EMS was called due to patient being in respiratory distress upon their arrival patient was tachypneic tachycardic with oxygen saturation of 71%. The place the patient on nonrebreather gave updrafts in route patient's saturations improved to 90s. Patient continued to be tachy pneic and tachycardic. Patient then chest pain. - Related Data Home Medications Medication Instructions Recorded Confirmed Albuterol Inhaler [Ventolin Hfa 2 puff INHALATION RT-Q4H PRN 04/09/22 01/16/23 Inhaler] Atorvastatin [Lipitor] 40 mg PO HS 04/09/22 01/16/23 Meloxicam [Mobic] 7.5 mg PO BID 04/09/22 01/16/23 Sertraline [Zoloft] 100 mg PO DAILY 06/15/22 01/16/23 Budesonide/Formoterol Fumarate 2 puff INHALATION RT-BID 07/13/22 01/16/23 [Symbicort 160-4.5 Mcg Inhaler] Ipratropium-Albuterol Nebulize 3 ml INHALATION RT-QID PRN 09/23/22 01/16/23 [Duoneb 0.5 mg-3 mg/3 ml Soln] Metoprolol Tartrate [Lopressor] 25 mg PO DAILY 09/23/22 01/16/23 Dapagliflozin Propanediol [Farxiga] 5 mg PO DAILY 11/19/22 01/16/23 Yupelri 175mcg/3ml 175 mcg INHALATION RT-DAILY 11/19/22 01/16/23 hydrOXYzine HCL [Atarax] 25 mg PO BID 11/19/22 01/16/23 Furosemide [Lasix] 20 mg PO DAILY 01/16/23 01/16/23 lisinopriL 30 mg PO DAILY 01/16/23 01/16/23 Previous Rx's Medication Instructions Recorded Aspirin 81 mg PO DAILY 30 Days #30 tab 04/12/22 Famotidine [Pepcid] 20 mg PO DAILY #30 tab 01/20/23 predniSONE [Deltasone] 40 mg PO DAILY 14 Days #34 tab 01/20/23 Allergies Allergy/AdvReac Type Severity Reaction Status Date / Time No Known Allergies Allergy Verified 01/16/23 22:42 Review of Systems ROS Statement: Those systems with pertinent positive or pertinent negative responses have been documented in the HPI. ROS Other: All systems not noted in ROS Statement are negative. Past Medical History Past Medical History: Coronary Artery Disease (CAD), Chest Pain / Angina, COPD, Respiratory Disorder Additional Past Medical History / Comment(s): Chronic hypercapnic respiratory failure, home oxygen at 5L/NC ATC, tracheobronchitis, aortic valve stenosis, chronic low back pain, DJD History of Any Multi-Drug Resistant Organisms: None Reported Past Surgical History: Breast Surgery, Tubal Ligation Additional Past Surgical History / Comment(s): Bilateral breast reductions, bilateral cataract removals. Past Anesthesia/Blood Transfusion Reactions: No Reported Reaction Past Psychological History: Anxiety, Depression Smoking Status: Former smoker Past Alcohol Use History: None Reported Past Drug Use History: None Reported - Past Family History Father History Unknown: Yes Mother Family Medical History: Congestive Heart Failure (CHF), Diabetes Mellitus General Exam Limitations: no limitations General appearance: alert, in distress, obese Head exam: Present: atraumatic, normocephalic Eye exam: Present: PERRL Respiratory exam: Present: respiratory distress, wheezes Cardiovascular Exam: Present: tachycardia GI/Abdominal exam: Present: soft Neurological exam: Present: alert, oriented X3 Skin exam: Present: warm, dry Course Vital Signs 04/19/23 04/19/23 04/19/23 04:21 04:58 04:59 Temperature 98.4 F Pulse Rate 126 H Respiratory 30 H Rate Blood Pressure 168/105 O2 Sat by Pulse 98 Oximetry Fraction of 40 40 Inspired Oxygen (FIO2) 04/19/23 04/19/23 05:20 06:00 Temperature Pulse Rate 125 H 125 H Respiratory 56 H 28 H Rate Blood Pressure 104/69 115/81 O2 Sat by Pulse 90 L 94 L Oximetry Fraction of Inspired Oxygen (FIO2) Medical Decision Making - Medical Decision Making Was pt. sent in by a medical professional or institution (, PA, TANK TESTER, urgent care, hospital, or group home...) When possible be specific @ -No Did you speak to anyone other than the patient for history (EMS, parent, family, police, friend...)? What history was obtained from this source @ -EMS, Did you review nursing and triage notes (agree or disagree)? Why? @ -I reviewed and agree with nursing and triage notes Were old charts reviewed (outside hosp., previous admission, EMS record, old EKG, old radiological studies, urgent care reports/EKG's, group home records)? Report findings @ -Previous admission notes reviewed Differential Diagnosis (chest pain, altered mental status, abdominal pain women, abdominal pain men, vaginal bleeding, weakness, fever, dyspnea, syncope, headache, dizziness, GI bleed, back pain, seizure, CVA, palpatations, mental health)? @ -Differential Dyspnea: Coronary syndrome, arrhythmia, tamponade, asthma, COPD, pulmonary embolism, pneumonia, pneumothorax, pulmonary effusion, anaphylaxis, diabetic ketoacidosis, flailed chest, pulmonary contusion, diaphragmatic rupture, anemia, neuromuscular, this is not meant to be an all-inclusive list. EKG interpreted by me (3pts min.). @ -As above X-rays interpreted by me (1pt min.). @ -Cardiomegaly no pleural effusions no pneumothorax CT interpreted by me (1pt min.). @ -None done U/S interpreted by me (1pt. min.). @ -None done What testing was considered but not performed or refused? (CT, X-rays, U/S, la bs)? Why? @ -None What meds were considered but not given or refused? Why? @ -None Did you discuss the management of the patient with other professionals (professionals i.e. , PA, TANK TESTER, lab, RT, psych nurse, social sciences instructor, veterinary technician, teacher, commercial loan collection officer, field nurse case manager)? Give summary @ -Admitting team [facility] Hospitalist Was smoking cessation discussed for >3mins.? @ -No Was critical care preformed (if so, how long)? @ -No Were there social determinants of health that impacted care today? How? (Homelessness, low income, unemployed, alcoholism, drug addiction, transportation, low edu. Level, literacy, decrease access to med. care, group home, rehab)? @ -No Was there de-escalation of care discussed even if they declined (Discuss DNR or withdrawal of care, Hospice)? DNR status @ -No What co-morbidities impacted this encounter? (DM, HTN, Smoking, COPD, CAD, Cancer, CVA, ARF, Chemo, Hep., AIDS, mental health diagnosis, sleep apnea, morbid obesity)? @ -COPD, morbid obesity Was patient admitted / discharged? Hospital course, mention meds given and route, prescriptions, significant lab abnormalities, going to OR and other pertinent info. @ -Admit Patient seen and evaluated, history obtained from patient and EMS Bipap ordered immediately Labs, Cephid, CXR ordered anxiolysis ordered to assist patient in tolerating bipap Lab of multiple significant abnormalities - most notably CO2 of 82 Patient to be admitted for respiratory failure with hypercapnia and COPD exacerbation - Rocephin and azithromycin ordered for COPD exacerbation CT-PE study ordered at time of admission due to persistent tachycardia and increased oxygen requirements Undiagnosed new problem with uncertain prognosis? @ -No Drug Therapy requiring intensive monitoring for toxicity (Heparin, Nitro, Insulin, Cardizem)? @ -No Were any procedures done? @ -No Diagnosis/symptom? @ COPD exacerbation Acute, or Chronic, or Acute on Chronic? @ Acute Uncomplicated (without systemic symptoms) or Complicated (systemic symptoms)? @ -default Side effects of treatment? @ -No Exacerbation, Progression, or Severe Exacerbation? @ -Severe exacerbation Poses a threat to life or bodily function? How? (Chest pain, [place], [place], pneumonia, PE, COPD, DKA, ARF, appy, cholecystitis, CVA, Diverticulitis, Homicidal, Suicidal, threat to staff... and all critical care pts) @Yes Diagnosis/symptom? @ -Hypercapnic respiratory failure Acute, or Chronic, or Acute on Chronic? @ Acute on chronic Uncomplicated (without systemic symptoms) or Complicated (systemic symptoms)? @ Complicated Side effects of treatment? @ -none Exacerbation, Progression, or Severe Exacerbation @ Exacerbation Poses a threat to life or bodily function? @ Yes - Lab Data Result diagrams: 04/19/23 05:10 04/19/23 05:30 Lab Results 04/19/23 04/19/23 04/19/23 Range/Units 05:10 05:10 05:30 WBC 26.7 H (3.8-10.6) k/uL RBC 4.49 (3.80-5.40) m/uL Hgb 13.6 (11.4-16.0) gm/dL Hct 42.9 (34.0-46.0) % MCV 95.6 (80.0-100.0) fL MCH 30.3 (25.0-35.0) pg MCHC 31.7 (31.0-37.0) g/dL RDW 13.6 (11.5-15.5) % Plt Count 237 (150-450) k/uL MPV 7.0 Neutrophils % 90 % Lymphocytes % 5 % Monocytes % 4 % Eosinophils % 1 % Basophils % 0 % Neutrophils # 23.9 H (1.3-7.7) k/uL Lymphocytes # 1.3 (1.0-4.8) k/uL Monocytes # 1.1 H (0-1.0) k/uL Eosinophils # 0.3 (0-0.7) k/uL Basophils # 0.1 (0-0.2) k/uL Hypochromasia Slight PT 10.7 (10.0-12.5) sec INR 1.0 (<1.2) APTT 23.4 (22.0-30.0) sec VBG pH (7.31-7.41) VBG pCO2 (37-51) mmHg VBG HCO3 (24-28) mmol/L Sodium 134 L (137-145) mmol/L Potassium 4.9 (3.5-5.1) mmol/L Chloride 89 L (98-107) mmol/L Carbon Dioxide 36 H (22-30) mmol/L Anion Gap 9 mmol/L BUN 18 H (7-17) mg/dL Creatinine 0.46 L (0.52-1.04) mg/dL Est GFR (CKD-EPI)AfAm >90 (>60 ml/min/1.73 sqM) Est GFR (CKD-EPI)NonAf >90 (>60 ml/min/1.73 sqM) Glucose 130 H (74-99) mg/dL Plasma Lactic Acid Ruslan (0.7-2.0) mmol/L Calcium 9.1 (8.4-10.2) mg/dL Total Bilirubin 1.0 (0.2-1.3) mg/dL AST 40 H (14-36) U/L ALT 20 (4-34) U/L Alkaline Phosphatase 109 (38-126) U/L Total Protein 7.2 (6.3-8.2) g/dL Albumin 3.9 (3.5-5.0) g/dL 04/19/23 04/19/23 Range/Units 05:30 05:38 WBC (3.8-10.6) k/uL RBC (3.80-5.40) m/uL Hgb (11.4-16.0) gm/dL Hct (34.0-46.0) % MCV (80.0-100.0) fL MCH (25.0-35.0) pg MCHC (31.0-37.0) g/dL RDW (11.5-15.5) % Plt Count (150-450) k/uL MPV Neutrophils % % Lymphocytes % % Monocytes % % Eosinophils % % Basophils % % Neutrophils # (1.3-7.7) k/uL Lymphocytes # (1.0-4.8) k/uL Monocytes # (0-1.0) k/uL Eosinophils # (0-0.7) k/uL Basophils # (0-0.2) k/uL Hypochromasia PT (10.0-12.5) sec INR (<1.2) APTT (22.0-30.0) sec VBG pH 7.31 (7.31-7.41) VBG pCO2 82 H* (37-51) mmHg VBG HCO3 41 H (24-28) mmol/L Sodium (137-145) mmol/L Potassium (3.5-5.1) mmol/L Chloride (98-107) mmol/L Carbon Dioxide (22-30) mmol/L Anion Gap mmol/L BUN (7-17) mg/dL Creatinine (0.52-1.04) mg/dL Est GFR (CKD-EPI)AfAm (>60 ml/min/1.73 sqM) Est GFR (CKD-EPI)NonAf (>60 ml/min/1.73 sqM) Glucose (74-99) mg/dL Plasma Lactic Acid Ruslan 1.9 (0.7-2.0) mmol/L Calcium (8.4-10.2) mg/dL Total Bilirubin (0.2-1.3) mg/dL AST (14-36) U/L ALT (4-34) U/L Alkaline Phosphatase (38-126) U/L Total Protein (6.3-8.2) g/dL Albumin (3.5-5.0) g/dL - EKG Data -: EKG Interpreted by Me EKG Comments: EKG interpreted by me, EKG obtained due to tachycardia EKG obtained at 4:30 AM rate is 119 rhythm is sinus tachycardia, left axis, normal intervals MN 132 QRS 105 QTC [address] elevations or depressions or evidence of ischemia or infarction. Disposition Clinical Impression: Respiratory failure with hypercapnia, Obesity, COPD exacerbation Disposition: ADMITTED IP TO THIS HOSP Condition: Serious Is patient prescribed a controlled substance at d/c from ED?: No Referrals: Jeremy Ennis DO [Primary Care Provider] - 1-2 days
[2023-04-19 06:33] LABS: AST 40 U/L (14-36); Albumin 3.9 g/dL (3.5-5.0); Alkaline Phosphatase 109 U/L (38-126); Glucose 130 mg/dL (74-99); Potassium 4.9 mmol/L (3.5-5.1); Total Protein 7.2 g/dL (6.3-8.2)
[2023-04-19] MEDS ORDERED: NALOXONE 0.4 MG/ML 1 ML VIAL IVP PRN ×2 (07:05→10:22)
--- NOTE | 2023-04-19 07:35 | XR ---
EXAMINATION TYPE: XR chest 1V portable DATE OF EXAM: 04/19/2023 5:34 AM CLINICAL INDICATION:Female, 62 years old with history of GRAYSON; COMPARISON: Chest radiographs from 01/16/2023 TECHNIQUE: XR chest 1V portable Frontal view of the chest. FINDINGS: Lungs/Pleura: There is no evidence of pleural effusion, focal consolidation, or pneumothorax. Pulmonary vascularity: Unremarkable. Heart/mediastinum: Cardiomediastinal silhouette is unremarkable. Musculoskeletal: No acute osseous pathology. Other findings: None IMPRESSION: Cardiomegaly and mild pulmonary vascular congestion. Correlate with BNP for congestive heart failure.
[2023-04-19] MEDS: IPRATROPIUM-ALBUTEROL 3 ML NEB INHALATION SCH ×4 (07:49→21:27)
[2023-04-19] MEDS ORDERED: ONDANSETRON 4 MG/2 ML VIAL IVP STA (09:54)
[2023-04-19] MEDS ORDERED: guaiFENesin-Coden 100-10MG/5ML 10 ML CUP PO PRN (10:22)
[2023-04-19] MEDS ORDERED: methylPREDNISolone SOD SUCCI 40 MG/ML 1 ML VIAL IV SCH (10:30)
[2023-04-19] MEDS ORDERED: BUDESONIDE 0.5 MG/2 ML NEBU INHALATION STA (11:13)
[2023-04-19] MEDS: methylPREDNISolone SOD SUCCI 125 MG/2 ML VIAL IV SCH ×2 (11:14→18:48)
[2023-04-19] MEDS: lisinopriL 10 MG TAB PO SCH (11:16)
[2023-04-19] MEDS: guaiFENesin 600 MG TABLET.ER PO SCH (11:16)
[2023-04-19] MEDS: METOPROLOL TARTRATE 25 MG TAB PO SCH (11:16)
[2023-04-19] MEDS: IPRATROPIUM-ALBUTEROL 3 ML NEB INHALATION PRN (11:23)
--- NOTE | 2023-04-19 12:03 | CT ---
EXAMINATION TYPE: CT chest angio for PE CT DLP: 610 mGycm, Automated exposure control for dose reduction was used. DATE OF EXAM: 04/19/2023 10:13 AM COMPARISON: None. CLINICAL INDICATION:Female, 62 years old with history of hypoxia and tachycardia; SOB TECHNIQUE/CONTRAST: CTA scan of the thorax is performed with IV Contrast, patient injected with 100 mL of Isovue 370, MIP images are created and reviewed these are created on a separate workstation.. FINDINGS: Pulmonary Artery: There is no evidence for a filling defect within the pulmonary vasculature to sugge st acute pulmonary embolism. The pulmonary trunk is enlarged at 3.5 cm. Heart: The heart is mildly enlarged for size. Mild coronary arterial calcifications. Vasculature: Moderate calcifications at the aortic valve. There is fusiform aneurysmal dilatation of the ascending aorta, as large as 4.9 x 5 cm. This tapers along the arch and the descending aorta is 2 .5 cm proximally. Bovine arch with calcifications at the origins of the branch vessels resulting in m ild stenoses. There is no aortic dissection. Mediastinum: No gross evidence of adenopathy. Airway: Central airways appear patent, in the limitations of motion. Lower neck: No significant findings. Soft Tissues: No axillary adenopathy. Lungs/Pleura: Moderate to severe centrilobular emphysema bilaterally. Limitations imposed by motion, with no airspace consolidation, pleural effusion, or pneumothorax demonstrated. There are a handful o f small pulmonary nodules seen, at least one of which is calcified consistent with remote granulomato us disease. A couple 4 mm nodules in the right lung image 71. Subpleural 5 mm nodular density in the right lung image 105. Probable mild scarring in the right middle lobe and lingula. There is a small l ipoma deep to the right pectoralis minor, which causes mild mass effect on its posterior aspect, as w ell as mild mass effect with smooth extrapleural deformity along the adjacent pleural surface of the right anterolateral lung. Musculoskeletal: Moderate degenerative changes throughout the visualized spine. No clearly acute osse ous abnormality. There are healing fractures with callus formation seen involving the right lateral 9 th rib, and probably 10th and 11th ribs. Upper Abdomen: Atherosclerotic plaque with mild narrowing of the proximal celiac artery. Included adr enals appear mildly thickened. IMPRESSION: 1. No evidence of pulmonary embolism. 2. Enlarged pulmonary trunk, can be seen with pulmonary hypertension. 3. Moderate calcification of the aortic valve. Fusiform aneurysmal dilatation of the ascending thora cic aorta measures up to 4.[address] surgery consult recommended. 4. Mild cardiomegaly. 5. Healing right rib fractures. 6. Moderate to severe pulmonary emphysematous changes. A few subcentimeter lung nodules are present, and follow-up CT in 6-12 months may be obtained.
[2023-04-19 12:52] LABS: ABG Base Excess 10.8 mmol/L; ABG HCO3 37 mmol/L (21-25); ABG Oxygen Saturation 87.3 % (94-97); ABG PH 7.29 (7.35-7.45); ABG TCO2 40 mmol/L (19-24); Allen Test Performed? Yes
[2023-04-19 13:00] LABS: ABG PCO2 78 mmHg (35-45)
[2023-04-19 13:01] LABS: ABG PO2 58 mmHg (83-108)
--- NOTE | 2023-04-19 13:38 | P.CNPUL ---
History of Present Illness Consult date: 04/19/23 Reason for consult: dyspnea, COPD History of present illness: 62-year-old female patient with known to have advanced auction dependent COPD w ith an FEV1 of less than 30% of predicted and chronic oxygen dependence at 5 L/m nasal cannula. The patient has had several hospitalization for COPD exacerbation last hospitalization being in December 2022. The patient came in to the emergency department having progressive worsening shortness of breath. She was having diminished level of consciousness that she was also getting more lethargic. Based on that, the patient was placed on a BiPAP pressure of 12/5 cm of water with FiO2 of 50%. The patient remains actively bronchospastic and wheezy. Unable to generate volumes of above 200 mL while being on a BiPAP. Breathing is labored and she is having marked diminish breath sounds bilaterally and she is actively bronchospastic and wheezy. Arterial blood gas was done this morning and it showed a pH of 7.29 with a pCO2 of 78 and pO2 of 58. This was an FiO2 of 40% and accordingly, the FiO2 was raised up to 50%. The viral screen was negative for Covid 19, influenza and RSV. She did have a troponin leaks with troponins being 0.1 and 0.9 respectively. The white cell count is at 26 wi th a hemoglobin of 15.6 and a platelet count of 237. Sodium is at 134, potassium is at 4.9, bicarbonate of 36, BUN is at 80 with a creatinine of 0.4. Cardiomegaly with some mild pulmonary vessel congestion. CT antigram of the chest was done and shows no evidence of any pulmonary embolism. There is evidence of pulmonary hypertension and the patient had enlarged pulmonary trunk. There is moderate calcification of the aortic valve. A fusiform aneurysmal dilatation of the ascending aorta measuring 5 x 4.9 cm. Mild cardiomegaly. Right rib fractures. There is diffuse emphysematous changes bilaterally and a few subcentimeter pulmonary nodules. The patient is currently on Rocephin and Zithromax. The patient on IV Solu-Medrol. The patient on DuoNeb about treatments [id number]. On outpatient basis, the patient will maintain on Symbicort,yupelri nebulized treatments once a day and 5 mg of prednisone as a maintenance. Review of Systems Constitutional: Reports daytime sleepiness, Reports fatigue, Reports lethargy, Reports poor appetite, Reports weakness, Reports weight gain Eyes: denies as per HPI, denies blurred vision, denies bulging eye, denies decreased vision, denies diplopia, denies discharge, denies dry eye, denies irritation, denies itching, denies pain, denies photophobia, denies loss of peripheral vision, denies loss of vision, denies tunnel vision/blind spots Ears: deny: decreased hearing, ear discharge, earache, tinnitus Ears, nose, mouth and throat: Reports as per HPI Breasts: absent: as per HPI, change in shape, gynecomastia, masses, nipple discharge, pain, skin changes, swelling Cardiovascular: Reports as per HPI, Reports decreased exercise tolerance, Reports dyspnea on exertion Respiratory: Reports cough, Reports dyspnea, Reports home oxygen, Reports wheezing Gastrointestinal: Reports as per HPI Genitourinary: Reports as per HPI Menstruation: Reports as per HPI Musculoskeletal: Reports as per HPI Musculoskeletal: absent: ankle pain, ankle stiffness, ankle swelling Integumentary: Reports as per HPI Neurological: Reports as per HPI Psychiatric: Reports as per HPI Endocrine: Reports as per HPI Allergic/Immunologic: Reports as per HPI Past Medical History Past Medical History: Coronary Artery Disease (CAD), Chest Pain / Angina, COPD, Respiratory Disorder Additional Past Medical History / Comment(s): Chronic hypercapnic respiratory failure, home oxygen at 5L/NC ATC, tracheobronchitis, aortic valve stenosis, chronic low back pain, DJD History of Any Multi-Drug Resistant Organisms: None Reported Past Surgical History: Breast Surgery, Tubal Ligation Additional Past Surgical History / Comment(s): Bilateral breast reductions, bilateral cataract removals. Past Anesthesia/Blood Transfusion Reactions: No Reported Reaction Past Psychological History: Anxiety, Depression Smoking Status: Former smoker Past Alcohol Use History: None Reported Past Drug Use History: None Reported - Past Family History Father History Unknown: Yes Mother Family Medical History: Congestive Heart Failure (CHF), Diabetes Mellitus Medications and Allergies Home Medications Medication Instructions Recorded Confirmed Type Albuterol Inhaler [Ventolin Hfa 2 puff INHALATION RT-Q4H PRN 04/09/22 04/19/23 History Inhaler] Atorvastatin [Lipitor] 40 mg PO HS 04/09/22 04/19/23 History Meloxicam [Mobic] 7.5 mg PO BID 04/09/22 04/19/23 History Aspirin 81 mg PO DAILY 30 Days #30 tab 04/12/22 04/19/23 Rx Sertraline [Zoloft] 100 mg PO DAILY 06/15/22 04/19/23 History Budesonide/Formoterol Fumarate 2 puff INHALATION RT-BID 07/13/22 04/19/23 History [Symbicort 160-4.5 Mcg Inhaler] Ipratropium-Albuterol Nebulize 3 ml INHALATION RT-QID PRN 09/23/22 04/19/23 History [Duoneb 0.5 mg-3 mg/3 ml Soln] Metoprolol Tartrate [Lopressor] 25 mg PO DAILY 09/23/22 04/19/23 History Dapagliflozin Propanediol [Farxiga] 5 mg PO DAILY 11/19/22 04/19/23 History Yupelri 175mcg/3ml 175 mcg INHALATION RT-DAILY 11/19/22 04/19/23 History hydrOXYzine HCL [Atarax] 25 mg PO BID 11/19/22 04/19/23 History lisinopriL 30 mg PO DAILY 01/16/23 04/19/23 History Tiotropium [place] [Spiriva] 1 cap INHALATION RT-DAILY 04/19/23 04/19/23 History predniSONE 5 mg PO DAILY 04/19/23 04/19/23 History Allergies Allergy/AdvReac Type Severity Reaction Status Date / Time No Known Allergies Allergy Verified 04/19/23 07:54 Physical Exam Vitals: Vital Signs Temp Pulse Resp BP Pulse Ox FiO2 04/19/23 13:09 98.5 F 123 H 22 87/65 90 L 04/19/23 11:38 121 H 04/19/23 11:25 116 H 04/19/23 11:16 115 H 32 H 99/67 99 04/19/23 11:04 122 H 04/19/23 11:02 40 04/19/23 10:00 102/75 04/19/23 08:49 102 H 18 131/97 96 04/19/23 08:27 117 H 04/19/23 07:54 112 H 04/19/23 07:53 92 L 40 04/19/23 07:49 40 04/19/23 07:33 86 18 144/87 86 L 04/19/23 06:00 125 H 28 H 115/81 94 L 04/19/23 05:20 125 H 56 H 104/69 90 L 04/19/23 04:59 40 04/19/23 04:58 40 04/19/23 04:21 98.4 F 126 H 30 H 168/105 98 Intake and Output 04/18/23 04/19/23 04/19/23 22:59 06:59 14:59 Other: Weight 85.275 kg GENERAL EXAM: Alert, 62-year-old obese white female, the patient is a moderate to severe respiratory distress even while being on a BiPAP. The patient has also diminished level of consciousness related to CO2 narcosis. HEAD: Normocephalic and atraumatic EYES: Normal reaction of pupils, equal size. NOSE: Clear with pink turbinates. THROAT: No erythema or exudates. NECK: No masses, no JVD. CHEST: No chest wall deformity. LUNGS: Equal air entry with expiratory wheezes heard throughout, breath sounds are markedly diminished bilaterally. CVS: S1 and S2 normal with no audible murmur, regular rhythm. No extra heart sounds. Tachycardic, cardiac rhythm is sinus. ABDOMEN:Obese abdomen, no hepatosplenomegaly, active bowel sounds, no guarding or rigidity. SPINE: No scoliosis or deformity SKIN: No rashes CENTRAL NERVOUS SYSTEM: No focal deficits, tone is normal in all 4 extremities. EXTREMITIES: There is no peripheral edema, clubbing, or cyanosis. Peripheral p ulses are intact. Results - Laboratory Findings CBC and BMP: 04/19/23 05:10 04/19/23 05:30 ABG ABG pH 7.29 (7.35-7.45) L 04/19/23 12:49 ABG pCO2 78 mmHg (35-45) H* 04/19/23 12:49 ABG pO2 58 mmHg (83-108) L* 04/19/23 12:49 ABG O2 Saturation 87.3 % (94-97) L 04/19/23 12:49 PT/INR, D-dimer PT 10.7 sec (10.0-12.5) 04/19/23 05:10 INR 1.0 (<1.2) 04/19/23 05:10 Abnormal lab findings: Abnormal Labs 04/19/23 04/19/23 04/19/23 05:10 05:30 05:30 WBC 26.7 H Neutrophils # 23.9 H Monocytes # 1.1 H ABG pH ABG pCO2 ABG pO2 ABG HCO3 ABG Total CO2 ABG O2 Saturation VBG pCO2 VBG HCO3 Sodium 134 L Chloride 89 L Carbon Dioxide 36 H BUN 18 H Creatinine 0.46 L Glucose 130 H AST 40 H Troponin I 0.114 H* 04/19/23 04/19/23 04/19/23 05:38 10:40 12:49 WBC Neutrophils # Monocytes # ABG pH 7.29 L ABG pCO2 78 H* ABG pO2 58 L* ABG HCO3 37 H ABG Total CO2 40 H ABG O2 Saturation 87.3 L VBG pCO2 82 H* VBG HCO3 41 H Sodium Chloride Carbon Dioxide BUN Creatinine Glucose AST Troponin I 0.938 H* - Diagnostic Findings Chest x-ray: image reviewed CT scan - chest: image reviewed Assessment and Plan Plan: Acute on chronic hypoxic and hypercapnic respiratory failure related to COPD exacerbation, currently on a BiPAP. The blood gases showing hypercapnic respiratory failure with ongoing respiratory acidosis. The patient is a DNR/DNI CODE STATUS. She has declined intubation the past. As such, we'll continue BiPAP therapy for now The patient level of consciousness, likely secondary to CO2 narcosis Advanced COPD with an FEV1 of less than 30% of predicted Chronic hypoxic respiratory failure maternal O2 at 5 L per minute nasal cannula Troponin leak due to type II ischemia Known history of coronary artery disease Chronic lower back pain Moderate to severe aortic stenosis with a peak gradient of 69 and a mean gradient of 46 and the estimated valve area of 0.9 Systolic heart failure with an ejection fraction of 45% Secondary pulmonary hypertension Ascending thoracic aortic aneurysm measuring 4.9 x 5 cm in size Plan Condition is obviously critical this point in time. Patient will be kept on a BiPAP and depression with a modified stool 14/5 and FiO2 was brought up to 50% CT angiogram of the chest was noted and there is no evidence of pneumonia or pulmonary embolism The patient will be given DuoNeb nebulized treatments [id number]. Performance on Pulmicort will be also added IV Solu-Medrol 60 mg every 6 hours We'll give a dose of Lasix 40 mg IV push Ativan for increased anxiety and maintaining syncope with a BiPAP Monitor the blood gas Keep the patient feel for now is at the bedside. Prognosis is obviously poor. High likelihood that the patient may failed BiPAP therapy regarding her acute COPD exacerbation. She is a DNR/DNI CODE STATUS. Lovenox 40 mg subcu for DVT prophylaxis We'll continue to follow
[2023-04-19] MEDS ORDERED: ENOXAPARIN 40 MG/0.4 ML SYRINGE SQ SCH (13:45)
[2023-04-19] MEDS ORDERED: HEPARIN SODIUM 1,000 UN/ML (10ML VL) IV PRN (14:56)
[2023-04-19] MEDS ORDERED: HEPARIN SODIUM 1,000 UN/ML (10ML VL) IV ONE (14:56)
[2023-04-19] MEDS: FUROSEMIDE 10 MG/ML 4 ML VIAL IV SCH ×2 (15:40→20:45)
[2023-04-19] MEDS: HEPARIN SOD,PORK IN 0.45% NACL 25,000 UNIT in 0.45% NACL 1 250ML.BAG IV SCH (15:43)
[2023-04-19 15:57] LABS: Partial Thromboplastin Time 26.8 sec (22.0-30.0); Prothrombin Time 10.7 sec (10.0-12.5)
[2023-04-19 16:01] LABS: HCT 42.4 % (34.0-46.0); HGB 13.4 gm/dL (11.4-16.0); Hypochromasia Moderate; MCH 30.6 pg (25.0-35.0); MCHC 31.6 g/dL (31.0-37.0); Mean Platelet Volume 7.1; Platelet Count 252 k/uL (150-450); RBC 4.38 m/uL (3.80-5.40); RDW 13.5 % (11.5-15.5); WBC 37.6 k/uL (3.8-10.6)
[2023-04-19 16:13] LABS: Band Neutrophils % 6 %; Basophils # (M) 0.38 k/uL (0-0.2); Lymphocytes # (M) 0.75 k/uL (1.0-4.8); Metamyelocytes # (M) 0.38 k/uL (0); Metamyelocytes % 1 %; Monocytes # (M) 2.26 k/uL (0-1.0); Neutrophils % (M) 86 %; Nucleated Red Blood Cells 0 /100 WBC (0-0); Total Cells Counted 200
[2023-04-19 16:16] LABS: Stomatocytes Present
[2023-04-19 16:17] LABS: Toxic Granulation Present
[2023-04-19] MEDS: NOREPINEPHRINE 4 MG in SODIUM CHLORIDE 0.9% 250 ML IV SCH (19:59)
[2023-04-19] MEDS ORDERED: SYMBICORT 160-4.5 MCG INHALER INHALATION SCH (20:00)
[2023-04-19 21:02] LABS: Glucose,Whole Blood 182 mg/dL (70-110)
--- NOTE | 2023-04-19 21:03 | P.PCN ---
Date of Procedure: 04/19/23 Preoperative Diagnosis: COPD exacerbation Postoperative Diagnosis: COPD exacerbation Procedure(s) Performed: Arterial line Surgeon: Nelly Rahman Pathology: other Condition: critical Disposition: ICU Operative Findings: Indication: Hemodynamic monitoring. A time-out was completed verifying correct patient, procedure, site, positioning, and implant(s) or special equipment if applicable. Allens test was performed to ensure adequate perfusion. The patients left breast was cleaned using chlorhexidine . 1% Lidocaine was used to anesthetize the area. An 18G Arrow arterial line was introduced into the radial artery. The catheter was threaded over the guide wire and the needle was removed with appropriate pulsatile blood return. Blood loss was minimal. The catheter was then sutured in place to the skin and a sterile dressing applied. Perfusion to the extremity distal to the point of catheter insertion was checked and found to be adequate. The patient tolerated the procedure well and there were no complications.
[2023-04-19] MEDS: FORMOTEROL FUMARATE 20 MCG/2 ML NEBU INHALATION SCH (21:27)
[2023-04-19 23:51] LABS: Glucose,Whole Blood 217 mg/dL (70-110)
[2023-04-20] MEDS: IPRATROPIUM-ALBUTEROL 3 ML NEB INHALATION SCH ×5 (00:26→20:25)
[2023-04-20] MEDS: ATORVASTATIN 40 MG TAB PO SCH ×2 (00:32→21:35)
[2023-04-20] MEDS: guaiFENesin 600 MG TABLET.ER PO SCH ×3 (00:33→21:35)
[2023-04-20] MEDS: methylPREDNISolone SOD SUCCI 125 MG/2 ML VIAL IV SCH ×5 (00:37→23:28)
[2023-04-20] MEDS: IPRATROPIUM-ALBUTEROL 3 ML NEB INHALATION PRN (03:41)
[2023-04-20 05:25] LABS: Basophils % (A) 0 %; Eosinophils % (A) 0 %; HCT 39.3 % (34.0-46.0); HGB 12.1 gm/dL (11.4-16.0); Hypochromasia Moderate; Lymphocytes # (A) 0.7 k/uL (1.0-4.8); Lymphocytes % (A) 2 %; MCH 29.8 pg (25.0-35.0); MCHC 30.9 g/dL (31.0-37.0); MCV 96.5 fL (80.0-100.0); Mean Platelet Volume 7.7; Monocytes # (A) 0.5 k/uL (0-1.0); Monocytes % (A) 2 %; Neutrophils % (A) 96 %; Platelet Count 247 k/uL (150-450); RBC 4.07 m/uL (3.80-5.40); RDW 13.5 % (11.5-15.5); WBC 26.8 k/uL (3.8-10.6)
[2023-04-20 05:50] LABS: Neutrophils # (A) 25.6 k/uL (1.3-7.7)
[2023-04-20 05:53] LABS: INR 1.1 (<1.2)
[2023-04-20 05:56] LABS: African American GFR (CKD) 67 (>60 ml/min/1.73 sqM); Anion Gap 9 mmol/L; Blood Urea Nitrogen 40 mg/dL (7-17); Calcium 8.3 mg/dL (8.4-10.2); Carbon Dioxide 36 mmol/L (22-30); Chloride 88 mmol/L (98-107); Glucose 207 mg/dL (74-99); Non-African American GFR(CKD) 58 (>60 ml/min/1.73 sqM); Potassium 4.2 mmol/L (3.5-5.1); Sodium 133 mmol/L (137-145)
[2023-04-20 05:56] LABS: Glucose,Whole Blood 221 mg/dL (70-110)
[2023-04-20] MEDS: FUROSEMIDE 10 MG/ML 4 ML VIAL IV SCH (08:11)
[2023-04-20] MEDS: AZITHROMYCIN 500 MG in SODIUM CHLORIDE 0.9% 250 ML IVPB SCH (08:12)
[2023-04-20] MEDS: ASPIRIN 81 MG PO SCH (08:12)
[2023-04-20] MEDS: METOPROLOL TARTRATE 25 MG TAB PO SCH (08:14)
[2023-04-20] MEDS: DAPAGLIFLOZIN PROPANEDIOL 5 MG TABLET PO SCH (08:15)
[2023-04-20] MEDS: lisinopriL 10 MG TAB PO SCH (08:16)
[2023-04-20] MEDS: FORMOTEROL FUMARATE 20 MCG/2 ML NEBU INHALATION SCH ×2 (08:32→20:25)
[2023-04-20] MEDS: BUDESONIDE 1 MG/2 ML NEBU INHALATION SCH ×2 (08:32→20:25)
--- NOTE | 2023-04-20 09:40 | P.PN ---
Subjective Progress Note Date: 04/20/23 62-year-old female patient with known to have advanced auction dependent COPD with an FEV1 of less than 30% of predicted and chronic oxygen dependence at 5 L/m nasal cannula. The patient has had several hospitalization for COPD exacerbation last hospitalization being in December 2022. The patient came in to the emergency department having progressive worsening shortness of breath. She was having diminished level of consciousness that she was also getting more lethargic. Based on that, the patient was placed on a BiPAP pressure of 12/5 cm of water with FiO2 of 50%. The patient remains actively bronchospastic and wheezy. Unable to generate volumes of above 200 mL while being on a BiPAP. Kourtney athing is labored and she is having marked diminish breath sounds bilaterally and she is actively bronchospastic and wheezy. Arterial blood gas was done this morning and it showed a pH of 7.29 with a pCO2 of 78 and pO2 of 58. This was an FiO2 of 40% and accordingly, the FiO2 was raised up to 50%. The viral screen was negative for Covid 19, influenza and RSV. She did have a troponin leaks with troponins being 0.1 and 0.9 respectively. The white cell count is at 26 with a hemoglobin of 15.6 and a platelet count of 237. Sodium is at 134, potassium is at 4.9, bicarbonate of 36, BUN is at 80 with a creatinine of 0.4. Cardiomegaly with some mild pulmonary vessel congestion. CT antigram of the chest was done and shows no evidence of any pulmonary embolism. There is evidence of pulmonary hypertension and the patient had enlarged pulmonary trunk. There is moderate calcification of the aortic valve. A fusiform aneurysmal dilatation of the ascending aorta measuring 5 x 4.9 cm. Mild cardiomegaly. Right rib fractures. There is diffuse emphysematous changes bilaterally and a few subcentimeter pulmonary nodules. The patient is currently on Rocephin and Zithromax. The patient on IV Solu-Medrol. The patient on DuoNeb about treatments [id number]. On outpatient basis, the patient will maintain on Symbicort,yupelri nebulized treatments once a day and 5 mg of prednisone as a maintenance. On today's evaluation of 04/20/2023, the patient did significant progress since yesterday. She was kept on BiPAP throughout the night and she improved. Her mental status recovers. This morning she is on 6 L of oxygen by nasal cannula. Fully alert and awake and communicating and tolerating diet. She did encounter a severe COPD exacerbation with an acute on top of chronic hypoxic and hypercapnic respiratory failure and for that reason she got moved to the intensive care unit where she was treated with a combination of bronchodilators and steroids. An arterial line was also started yesterday. This morning, she has no specific complaints. No chest pain. No angina. No palpitations. The blood work from today. Shows a WBC count 26, hemoglobin of 12.1 and a platelet count of 247. The sodium is at 133, potassium of 4.2, carotids 88 with a bicarb of 36. BUN is at 40 with a creatinine of 1.04. A repeat chest x-ray was done today and findings of essentially stable without any airspace disease or consolidation. No evidence of any pneumonia at this point in time. She is hemodynamically stable. She has not required any pressors. No was on a minimal dose of norepinephrine overnight and currently she is off pressors. The patient was also diabetes overnight with IV Lasix and the patient is a negative fluid balance of 2.1 L and the patient is going to be switched to oral Lasix. Objective - Vital Signs Vital signs: Vital Signs Temp 97.8 F 04/20/23 04:00 Pulse 103 H 04/20/23 09:05 Resp 18 04/20/23 09:00 BP 97/75 04/20/23 03:00 Pulse Ox 99 04/20/23 09:00 FiO2 50 04/20/23 07:54 Intake & Output 04/19/23 04/20/23 04/20/23 18:59 06:59 18:59 Intake Total 124.762 12.075 Output Total 2255 675 Balance -2130.238 -662.925 Weight 85.275 kg 97.6 kg Intake: Intake, IV Titration 124.762 12.075 Amount Norepinephrine 4 mg In 124.762 12.075 Sodium Chloride 0.9% 250 ml @ 0.05 MCG/KG/MIN 16. 245 mls/hr IV .[id number] REPLACED BY [facility] Rx#:[id number] Output: Urine 2255 675 Uretheral (Wilkins) 1200 600 Other: Voiding Method External Catheter External Catheter ABP, PAP, CO, CI - Last Documented Arterial Blood Pressure 117/63 - Exam GENERAL EXAM: Alert, 62-year-old obese white female, the patient is awake and alert and communicating. No apparent distress to distress HEAD: Normocephalic and atraumatic EYES: Normal reaction of pupils, equal size. NOSE: Clear with pink turbinates. THROAT: No erythema or exudates. NECK: No masses, no JVD. CHEST: No chest wall deformity. LUNGS: Equal air entry with expiratory wheezes heard throughout, and there is improved breath sounds bilaterally compared to yesterday CVS: S1 and S2 normal with no audible murmur, regular rhythm. No extra heart sounds. ABDOMEN:Obese abdomen, no hepatosplenomegaly, active bowel sounds, no guarding or rigidity. SPINE: No scoliosis or deformity SKIN: No rashes CENTRAL NERVOUS SYSTEM: No focal deficits, tone is normal in all 4 extremities. EXTREMITIES: There is no peripheral edema, clubbing, or cyanosis. Peripheral pulses are intact. - Labs CBC & Chem 7: 04/20/23 05:15 04/20/23 05:15 Labs: Abnormal Lab Results - Last 24 Hours (Table) 04/19/23 04/19/23 04/19/23 Range/Units 10:40 12:49 13:35 WBC (3.8-10.6) k/uL MCHC (31.0-37.0) g/dL Neutrophils # (1.3-7.7) k/uL Neutrophils # (Manual) (1.3-7.7) k/uL Lymphocytes # (1.0-4.8) k/uL Lymphocytes # (Manual) (1.0-4.8) k/uL Monocytes # (Manual) (0-1.0) k/uL Basophils # (Manual) (0-0.2) k/uL Metamyelocytes # (Man) (0) k/uL APTT (22.0-30.0) sec ABG pH 7.29 L (7.35-7.45) ABG pCO2 78 H* (35-45) mmHg ABG pO2 58 L* (83-108) mmHg ABG HCO3 37 H (21-25) mmol/L ABG Total CO2 40 H (19-24) mmol/L ABG O2 Saturation 87.3 L (94-97) % Sodium (137-145) mmol/L Chloride (98-107) mmol/L Carbon Dioxide (22-30) mmol/L BUN (7-17) mg/dL Glucose (74-99) mg/dL POC Glucose (mg/dL) (70-110) mg/dL Calcium (8.4-10.2) mg/dL Troponin I 0.938 H* 1.470 H* (0.000-0.034) ng/mL 04/19/23 04/19/23 04/19/23 Range/Units 15:02 18:12 21:00 WBC 37.6 H (3.8-10.6) k/uL MCHC (31.0-37.0) g/dL Neutrophils # (1.3-7.7) k/uL Neutrophils # (Manual) 34.50 H (1.3-7.7) k/uL Lymphocytes # (1.0-4.8) k/uL Lymphocytes # (Manual) 0.75 L (1.0-4.8) k/uL Monocytes # (Manual) 2.26 H (0-1.0) k/uL Basophils # (Manual) 0.38 H (0-0.2) k/uL Metamyelocytes # (Man) 0.38 H (0) k/uL APTT 64.2 H (22.0-30.0) sec ABG pH (7.35-7.45) ABG pCO2 (35-45) mmHg ABG pO2 (83-108) mmHg ABG HCO3 (21-25) mmol/L ABG Total CO2 (19-24) mmol/L ABG O2 Saturation (94-97) % Sodium (137-145) mmol/L Chloride (98-107) mmol/L Carbon Dioxide (22-30) mmol/L BUN (7-17) mg/dL Glucose (74-99) mg/dL POC Glucose (mg/dL) 182 H (70-110) mg/dL Calcium (8.4-10.2) mg/dL Troponin I (0.000-0.034) ng/mL 04/19/23 04/20/23 04/20/23 Range/Units 23:49 05:15 05:15 WBC 26.8 H (3.8-10.6) k/uL MCHC 30.9 L (31.0-37.0) g/dL Neutrophils # 25.6 H (1.3-7.7) k/uL Neutrophils # (Manual) (1.3-7.7) k/uL Lymphocytes # 0.7 L (1.0-4.8) k/uL Lymphocytes # (Manual) (1.0-4.8) k/uL Monocytes # (Manual) (0-1.0) k/uL Basophils # (Manual) (0-0.2) k/uL Metamyelocytes # (Man) (0) k/uL APTT (22.0-30.0) sec ABG pH (7.35-7.45) ABG pCO2 (35-45) mmHg ABG pO2 (83-108) mmHg ABG HCO3 (21-25) mmol/L ABG Total CO2 (19-24) mmol/L ABG O2 Saturation (94-97) % Sodium 133 L (137-145) mmol/L Chloride 88 L (98-107) mmol/L Carbon Dioxide 36 H (22-30) mmol/L BUN 40 H (7-17) mg/dL Glucose 207 H (74-99) mg/dL POC Glucose (mg/dL) 217 H (70-110) mg/dL Calcium 8.3 L (8.4-10.2) mg/dL Troponin I (0.000-0.034) ng/mL 04/20/23 04/20/23 Range/Units 05:54 06:30 WBC (3.8-10.6) k/uL MCHC (31.0-37.0) g/dL Neutrophils # (1.3-7.7) k/uL Neutrophils # (Manual) (1.3-7.7) k/uL Lymphocytes # (1.0-4.8) k/uL Lymphocytes # (Manual) (1.0-4.8) k/uL Monocytes # (Manual) (0-1.0) k/uL Basophils # (Manual) (0-0.2) k/uL Metamyelocytes # (Man) (0) k/uL APTT 47.6 H (22.0-30.0) sec ABG pH (7.35-7.45) ABG pCO2 (35-45) mmHg ABG pO2 (83-108) mmHg ABG HCO3 (21-25) mmol/L ABG Total CO2 (19-24) mmol/L ABG O2 Saturation (94-97) % Sodium (137-145) mmol/L Chloride (98-107) mmol/L Carbon Dioxide (22-30) mmol/L BUN (7-17) mg/dL Glucose (74-99) mg/dL POC Glucose (mg/dL) 221 H (70-110) mg/dL Calcium (8.4-10.2) mg/dL Troponin I (0.000-0.034) ng/mL Assessment and Plan Plan: Acute on chronic hypoxic and hypercapnic respiratory failure related to COPD exacerbation, currently on a BiPAP. The blood gases showing hypercapnic respiratory failure with ongoing respiratory acidosis. The patient is a DNR/DNI CODE STATUS. She has declined intubation the past. He was supported with BiPAP throughout the night and the patient is currently on 6 L of oxygen by nasal cannula and the BiPAP was discontinued. A repeat chest x-ray from today shows no acute abnormalities. The patient level of consciousness, likely secondary to CO2 narcosis, improved and the patient is awake and alert 3 Advanced COPD with an FEV1 of less than 30% of predicted Chronic hypoxic respiratory failure maternal O2 at 5 L per minute nasal cannula Troponin leak due to type II ischemia Known history of coronary artery disease Chronic lower back pain Moderate to severe aortic stenosis with a peak gradient of 69 and a mean gradient of 46 and the estimated valve area of 0.9 Systolic heart failure with an ejection fraction of 45% Secondary pulmonary hypertension Ascending thoracic aortic aneurysm measuring 4.9 x 5 cm in size Plan Condition is improved Patient will be kept on a BiPAP and depression with a modified stool 14/5 and FiO2 was brought up to 50% and this will be used overnight only and the patient can go on nasal cannula at 6 L note that her baseline oxygen requirements is at [address]ogram of the chest was noted and there is no evidence of pneumonia or pulmonary embolism The patient will be given DuoNeb nebulized treatments [id number]. Perforomist and Pulmicort will be also added IV Solu-Medrol 60 mg every 6 hours to be continued for another 24 hours Is continue IV Lasix and we'll put the patient on 40 mg of by mouth Lasix She is a DNR/DNI CODE STATUS. Lovenox 40 mg subcu for DVT prophylaxis We'll continue to follow
--- NOTE | 2023-04-20 09:41 | P.HPIM ---
History of Present Illness H&P Date: 04/19/23 History of present illness; Patient is a 62-year-old white female with past medical history significant for severe COPD with an FEV1 30% of predicted, chronic oxygen dependence on 5 L home O2, coronary artery disease, aortic valve stenosis, and chronic lower back pain who presented to the ER because of worsening shortness of breath. Patient stated that she was all right last night when she started complaining of worsening shortness of breath. Shortness of breath was present at rest. There was no complain of orthopnea or PND. No coughing of fever or chills. Patient was complaining of chest pain. Denies any cough. Because his worsening shortness of breath, EMS was called when EMS arrived, patient found to be tachycardic and tachypneic, patient was placed on nonrebreather and was transferred to the ER Initial lab work done in the ER showed WBC 26.7, hemoglobin 13.6, platelet count 237, sodium 134, potassium 4.9, chloride 89, BUN 18, creatinine 0.46 troponin 0.114 Influenza A not detected Influenza B not detected RSV not detected COVID-19 not detected EKG done in the ER showed heart rate of 119 , no ST segment elevation or dep ression seen, no T-wave inversions seen. Chest x-ray done in the ER showed cardiomegaly and mild pulmonary vascular congestion. Patient admitted to internal medicine service REVIEW OF SYSTEMS: Review of systems cannot be obtained as patient is in respiratory distress and on BiPAP PHYSICAL EXAMINATION: GENERAL: The patient is alert , in respiratory distress HEENT: Pupils are round and equally reacting to light. EOMI. No scleral icterus. No conjunctival pallor. Normocephalic, atraumatic. No pharyngeal erythema. No thyromegaly. CARDIOVASCULAR: S1 and S2 present. No murmurs, rubs, or gallops. Tachycardic PULMONARY: Tachypneic, coarse breath some bilaterally, expiratory wheeze audible ABDOMEN: Soft, nontender, nondistended, normoactive bowel sounds. No palpable organomegaly. MUSCULOSKELETAL: No joint swelling or deformity. EXTREMITIES: No cyanosis, clubbing, or pedal edema. NEUROLOGICAL: Gross neurological examination did not reveal any focal deficits. SKIN: No rashes. Assessment and plan Acute COPD exacerbation Acute on chronic hypoxemic and hypercapnic respiratory failure, secondary to above Elevated troponins History of Coronary artery disease History of aortic valve stenosis Chronic lower back pain History of anxiety and depression Ex-smoker Monitor vital signs Monitor CBC Monitor CMP Continue telemetry monitoring Continue breathing treatments Trend troponins Continue IV Solu-Medrol [address] chest ordered Continue IV Rocephin and azithromycin Start pharmacy dose heparin Resume home meds Consult pulmonary Consult cardiology Labs and medication were reviewed.. Continue same treatment. Continue with symptomatic treatment. Resume home medication. Monitor labs and vitals. DVT and GI prophylaxis. Further recommendations as per clinical course of the patient Dictation was produced using [employer] dictation software. please excuse any grammatical, word or spelling errors. Past Medical History Past Medical History: Coronary Artery Disease (CAD), Chest Pain / Angina, COPD, Respiratory Disorder Additional Past Medical History / Comment(s): Chronic hypercapnic respiratory failure, home oxygen at 5L/NC ATC, tracheobronchitis, aortic valve stenosis, chronic low back pain, DJD History of Any Multi-Drug Resistant Organisms: None Reported Past Surgical History: Breast Surgery, Tubal Ligation Additional Past Surgical History / Comment(s): Bilateral breast reductions, bilateral cataract removals. Past Anesthesia/Blood Transfusion Reactions: No Reported Reaction Past Psychological History: Anxiety, Depression Smoking Status: Former smoker Past Alcohol Use History: None Reported Past Drug Use History: None Reported - Past Family History Father History Unknown: Yes Mother Family Medical History: Congestive Heart Failure (CHF), Diabetes Mellitus Medications and Allergies Home Medications Medication Instructions Recorded Confirmed Type Albuterol Inhaler [Ventolin Hfa 2 puff INHALATION RT-Q4H PRN 04/09/22 04/19/23 History Inhaler] Atorvastatin [Lipitor] 40 mg PO HS 04/09/22 04/19/23 History Meloxicam [Mobic] 7.5 mg PO BID 04/09/22 04/19/23 History Aspirin 81 mg PO DAILY 30 Days #30 tab 04/12/22 04/19/23 Rx Sertraline [Zoloft] 100 mg PO DAILY 06/15/22 04/19/23 History Budesonide/Formoterol Fumarate 2 puff INHALATION RT-BID 07/13/22 04/19/23 History [Symbicort 160-4.5 Mcg Inhaler] Ipratropium-Albuterol Nebulize 3 ml INHALATION RT-QID PRN 09/23/22 04/19/23 History [Duoneb 0.5 mg-3 mg/3 ml Soln] Metoprolol Tartrate [Lopressor] 25 mg PO DAILY 09/23/22 04/19/23 History Dapagliflozin Propanediol [Farxiga] 5 mg PO DAILY 11/19/22 04/19/23 History Yupelri 175mcg/3ml 175 mcg INHALATION RT-DAILY 11/19/22 04/19/23 History hydrOXYzine HCL [Atarax] 25 mg PO BID 11/19/22 04/19/23 History lisinopriL 30 mg PO DAILY 01/16/23 04/19/23 History Tiotropium [place] [Spiriva] 1 cap INHALATION RT-DAILY 04/19/23 04/19/23 History predniSONE 5 mg PO DAILY 04/19/23 04/19/23 History Allergies Allergy/AdvReac Type Severity Reaction Status Date / Time No Known Allergies Allergy Verified 04/19/23 07:54 Physical Exam Vitals: Vital Signs Temp Pulse Resp BP Pulse Ox FiO2 04/19/23 08:49 102 H 18 131/97 96 04/19/23 08:27 117 H 04/19/23 07:54 112 H 04/19/23 07:53 92 L 40 04/19/23 07:49 40 04/19/23 07:33 86 18 144/87 86 L 04/19/23 06:00 125 H 28 H 115/81 94 L 04/19/23 05:20 125 H 56 H 104/69 90 L 04/19/23 04:59 40 04/19/23 04:58 40 04/19/23 04:21 98.4 F 126 H 30 H 168/105 98 Intake and Output 04/18/23 04/19/23 04/19/23 22:59 06:59 14:59 Other: Weight 85.275 kg Results CBC & Chem 7: 04/20/23 05:15 04/20/23 05:15 Labs: Abnormal Lab Results - Last 24 Hours (Table) 04/19/23 04/19/23 04/19/23 Range/Units 05:10 05:30 05:30 WBC 26.7 H (3.8-10.6) k/uL Neutrophils # 23.9 H (1.3-7.7) k/uL Monocytes # 1.1 H (0-1.0) k/uL VBG pCO2 (37-51) mmHg VBG HCO3 (24-28) mmol/L Sodium 134 L (137-145) mmol/L Chloride 89 L (98-107) mmol/L Carbon Dioxide 36 H (22-30) mmol/L BUN 18 H (7-17) mg/dL Creatinine 0.46 L (0.52-1.04) mg/dL Glucose 130 H (74-99) mg/dL AST 40 H (14-36) U/L Troponin I 0.114 H* (0.000-0.034) ng/mL 04/19/23 Range/Units 05:38 WBC (3.8-10.6) k/uL Neutrophils # (1.3-7.7) k/uL Monocytes # (0-1.0) k/uL VBG pCO2 82 H* (37-51) mmHg VBG HCO3 41 H (24-28) mmol/L Sodium (137-145) mmol/L Chloride (98-107) mmol/L Carbon Dioxide (22-30) mmol/L BUN (7-17) mg/dL Creatinine (0.52-1.04) mg/dL Glucose (74-99) mg/dL AST (14-36) U/L Troponin I (0.000-0.034) ng/mL
[2023-04-20] MEDS: SERTRALINE 100 MG TAB PO SCH (09:43)
--- NOTE | 2023-04-20 10:39 | XR ---
EXAMINATION TYPE: XR chest 1V DATE OF EXAM: 04/20/2023 COMPARISON: 04/19/2023 HISTORY: 62 year-old female history of aortic stenosis TECHNIQUE: Single frontal view of the chest is obtained. FINDINGS: Heart normal size. Diffuse interstitial density appears slightly increased. No consolidati on or pleural effusion. Well-demarcated density projecting of the right upper lobe appears to corresp ond to a chest wall lipoma on CT. No consolidation or pleural effusion. Hyperinflation. IMPRESSION: COPD with increasing interstitial density. Consider bronchitis or developing atypical pn eumonia.
[2023-04-20] MEDS: NOREPINEPHRINE 4 MG in SODIUM CHLORIDE 0.9% 250 ML IV SCH (10:55)
[2023-04-20 11:31] LABS: Glucose,Whole Blood 156 mg/dL (70-110)
--- NOTE | 2023-04-20 12:55 | P.PN ---
Subjective Progress Note Date: 04/20/23 Patient is a 62-year-old white female with past medical history significant for severe COPD with an FEV1 30% of predicted, chronic oxygen dependence on 5 L home O2, coronary artery disease, aortic valve stenosis, and chronic lower back pain who presented to the ER because of worsening shortness of breath. Patient stated that she was all right last night when she started complaining of worsening shortness of breath. Shortness of breath was present at rest. There was no complain of orthopnea or PND. No coughing of fever or chills. Patient was complaining of chest pain. Denies any cough. Because his worsening shortness of breath, EMS was called when EMS arrived, patient found to be tachycardic and tachypneic, patient was placed on nonrebreather and was transferred to the ER Initial lab work done in the ER showed WBC 26.7, hemoglobin 13.6, platelet count 237, sodium 134, potassium 4.9, chloride 89, BUN 18, creatinine 0.46 troponin 0.114 Influenza A not detected Influenza B not detected RSV not detected COVID-19 not detected EKG done in the ER showed heart rate of 119 , no ST segment elevation or depression seen, no T-wave inversions seen. Chest x-ray done in the ER showed cardiomegaly and mild pulmonary vascular congestion. Patient admitted to internal medicine service 04/20. Patient seen and examined. Blood work done this morning showed WBC 26.8 , hemoglobin 12.1, platelet count 247 sodium 133, potassium 4.2 BUN 40, creatinine 1.04. Patient currently off the BiPAP, on 6 L of oxygen. Sitting upright in the bed able to maintain a conversation. States breathing has improved. Denies any chest pain REVIEW OF SYSTEMS: CONSTITUTIONAL: No fever, no malaise,. CARDIOVASCULAR: No chest pain, no palpitations, no syncope. PULMONARY: As mentioned above GASTROINTESTINAL: No diarrhea, no nausea, no vomiting, no abdominal pain. NEUROLOGICAL: No headaches, no weakness, PHYSICAL EXAMINATION: GENERAL: The patient is alert and oriented x3, not in any acute distress. Well developed, well nourished. HEENT: Pupils are round and equally reacting to light. EOMI. No scleral icterus. No conjunctival pallor. Normocephalic, atraumatic. No pharyngeal erythema. No thyromegaly. CARDIOVASCULAR: S1 and S2 present. No murmurs, rubs, or gallops. PULMONARY: Coarse breath some bilaterally, expiratory wheeze audible ABDOMEN: Soft, nontender, nondistended, normoactive bowel sounds. No palpable organomegaly. MUSCULOSKELETAL: No joint swelling or deformity. EXTREMITIES: No cyanosis, clubbing, or pedal edema. NEUROLOGICAL: Gross neurological examination did not reveal any focal deficits. SKIN: No rashes. Assessment and plan Acute COPD exacerbation Acute on chronic hypoxemic and hypercapnic respiratory failure, secondary to above Acute metabolic encephalopathy Elevated troponins Systolic heart failure with an ejection fraction of 45% Secondary pulmonary hypertension Ascending thoracic aortic aneurysm measuring 4.9 x 5 cm in size History of Coronary artery disease History of aortic valve stenosis Chronic lower back pain History of anxiety and depression Ex-smoker Monitor vital signs Monitor CBC Monitor CMP Continue telemetry monitoring Continue breathing treatments Trend troponins Continue IV Solu-Medrol 40 mg every 8 Continue IV Rocephin and azithromycin Continue pharmacy dose heparin Resume home meds Cardiology following Pulmonary following In regards to hypertension, continue lisinopril and Lopressor Regards to hyperlipidemia continue Lipitor Labs and medication were reviewed.. Continue same treatment. Continue with symptomatic treatment. Resume home medication. Monitor labs and vitals. DVT and GI prophylaxis. Further recommendations as per clinical course of the patient Dictation was produced using [employer] dictation software. please excuse any grammatical, word or spelling errors. Objective - Vital Signs Vital signs: Vital Signs Temp 97.8 F 04/20/23 04:00 Pulse 103 H 04/20/23 09:05 Resp 18 04/20/23 09:00 BP 97/75 04/20/23 03:00 Pulse Ox 99 04/20/23 09:00 FiO2 50 04/20/23 07:54 Intake & Output 04/19/23 04/20/23 04/20/23 18:59 06:59 18:59 Intake Total 124.762 12.075 Output Total 2255 825 Balance -2130.238 -812.925 Weight 85.275 kg 97.6 kg Intake: Intake, IV Titration 124.762 12.075 Amount Norepinephrine 4 mg In 124.762 12.075 Sodium Chloride 0.9% 250 ml @ 0.05 MCG/KG/MIN 16. 245 mls/hr IV .[id number] [facility] Rx#:[id number] Output: Urine 2255 825 Uretheral (Wilkins) 1200 600 Other: Voiding Method External Catheter External Catheter ABP, PAP, CO, CI - Last Documented Arterial Blood Pressure 117/63 - Labs CBC & Chem 7: 04/20/23 05:15 04/20/23 05:15 Labs: Abnormal Lab Results - Last 24 Hours (Table) 04/19/23 04/19/23 04/19/23 Range/Units 10:40 12:49 13:35 WBC (3.8-10.6) k/uL MCHC (31.0-37.0) g/dL Neutrophils # (1.3-7.7) k/uL Neutrophils # (Manual) (1.3-7.7) k/uL Lymphocytes # (1.0-4.8) k/uL Lymphocytes # (Manual) (1.0-4.8) k/uL Monocytes # (Manual) (0-1.0) k/uL Basophils # (Manual) (0-0.2) k/uL Metamyelocytes # (Man) (0) k/uL APTT (22.0-30.0) sec ABG pH 7.29 L (7.35-7.45) ABG pCO2 78 H* (35-45) mmHg ABG pO2 58 L* (83-108) mmHg ABG HCO3 37 H (21-25) mmol/L ABG Total CO2 40 H (19-24) mmol/L ABG O2 Saturation 87.3 L (94-97) % Sodium (137-145) mmol/L Chloride (98-107) mmol/L Carbon Dioxide (22-30) mmol/L BUN (7-17) mg/dL Glucose (74-99) mg/dL POC Glucose (mg/dL) (70-110) mg/dL Calcium (8.4-10.2) mg/dL Troponin I 0.938 H* 1.470 H* (0.000-0.034) ng/mL 04/19/23 04/19/23 04/19/23 Range/Units 15:02 18:12 21:00 WBC 37.6 H (3.8-10.6) k/uL MCHC (31.0-37.0) g/dL Neutrophils # (1.3-7.7) k/uL Neutrophils # (Manual) 34.50 H (1.3-7.7) k/uL Lymphocytes # (1.0-4.8) k/uL Lymphocytes # (Manual) 0.75 L (1.0-4.8) k/uL Monocytes # (Manual) 2.26 H (0-1.0) k/uL Basophils # (Manual) 0.38 H (0-0.2) k/uL Metamyelocytes # (Man) 0.38 H (0) k/uL APTT 64.2 H (22.0-30.0) sec ABG pH (7.35-7.45) ABG pCO2 (35-45) mmHg ABG pO2 (83-108) mmHg ABG HCO3 (21-25) mmol/L ABG Total CO2 (19-24) mmol/L ABG O2 Saturation (94-97) % Sodium (137-145) mmol/L Chloride (98-107) mmol/L Carbon Dioxide (22-30) mmol/L BUN (7-17) mg/dL Glucose (74-99) mg/dL POC Glucose (mg/dL) 182 H (70-110) mg/dL Calcium (8.4-10.2) mg/dL Troponin I (0.000-0.034) ng/mL 04/19/23 04/20/23 04/20/23 Range/Units 23:49 05:15 05:15 WBC 26.8 H (3.8-10.6) k/uL MCHC 30.9 L (31.0-37.0) g/dL Neutrophils # 25.6 H (1.3-7.7) k/uL Neutrophils # (Manual) (1.3-7.7) k/uL Lymphocytes # 0.7 L (1.0-4.8) k/uL Lymphocytes # (Manual) (1.0-4.8) k/uL Monocytes # (Manual) (0-1.0) k/uL Basophils # (Manual) (0-0.2) k/uL Metamyelocytes # (Man) (0) k/uL APTT (22.0-30.0) sec ABG pH (7.35-7.45) ABG pCO2 (35-45) mmHg ABG pO2 (83-108) mmHg ABG HCO3 (21-25) mmol/L ABG Total CO2 (19-24) mmol/L ABG O2 Saturation (94-97) % Sodium 133 L (137-145) mmol/L Chloride 88 L (98-107) mmol/L Carbon Dioxide 36 H (22-30) mmol/L BUN 40 H (7-17) mg/dL Glucose 207 H (74-99) mg/dL POC Glucose (mg/dL) 217 H (70-110) mg/dL Calcium 8.3 L (8.4-10.2) mg/dL Troponin I (0.000-0.034) ng/mL 04/20/23 04/20/23 Range/Units 05:54 06:30 WBC (3.8-10.6) k/uL MCHC (31.0-37.0) g/dL Neutrophils # (1.3-7.7) k/uL Neutrophils # (Manual) (1.3-7.7) k/uL Lymphocytes # (1.0-4.8) k/uL Lymphocytes # (Manual) (1.0-4.8) k/uL Monocytes # (Manual) (0-1.0) k/uL Basophils # (Manual) (0-0.2) k/uL Metamyelocytes # (Man) (0) k/uL APTT 47.6 H (22.0-30.0) sec ABG pH (7.35-7.45) ABG pCO2 (35-45) mmHg ABG pO2 (83-108) mmHg ABG HCO3 (21-25) mmol/L ABG Total CO2 (19-24) mmol/L ABG O2 Saturation (94-97) % Sodium (137-145) mmol/L Chloride (98-107) mmol/L Carbon Dioxide (22-30) mmol/L BUN (7-17) mg/dL Glucose (74-99) mg/dL POC Glucose (mg/dL) 221 H (70-110) mg/dL Calcium (8.4-10.2) mg/dL Troponin I (0.000-0.034) ng/mL
--- NOTE | 2023-04-20 13:17 | CONS ---
CONSULTATION HISTORY OF PRESENT ILLNESS: Blanka is a 62-year-old lady with multiple prior hospitalizations with respiratory failure that comes in with progressively worsening shortness of breath and we have been consulted because of elevated troponin. The patient has history of severe COPD and severe aortic stenosis and has had multiple prior hospitalizations with elevated troponin. She came in short of breath and had been treated with nebulizers with improvement in her symptoms. On this admission, her troponin is elevated at 0.1, 0.9, and 1.4. EKG shows sinus rhythm with nonspecific ST-T wave changes and left axis deviation. An echocardiogram in October revealed severe aortic stenosis. A CT scan of the chest showed ascending aortic aneurysm measuring about 5 cm and mild coronary artery calcification. There is no evidence of pulmonary embolism. Her clinical presentation is consistent with non ST-segment elevation CO, which could be from the severe hypoxia or could be due to plaque rupture. I am going to talk to Dr. Hinkle about cardiac catheterization, possible evaluation for TAVR. It is unclear how much of her shortness of breath is primarily from the underlying COPD and how much of it is related to underlying valvular heart disease and possible underlying CAD. PAST MEDICAL HISTORY: Significant for COPD, hypertension, dyslipidemia. MEDICATIONS: At home included, 1. Spiriva. 2. Lisinopril. 3. Zoloft. 4. Lopressor. 5. DuoNeb. 6. Farxiga. 7. Symbicort. 8. Lipitor. 9. Aspirin. ALLERGIES: There are no known drug allergies. FAMILY HISTORY: Negative for premature coronary artery disease. SOCIAL HISTORY: Denies current smoking, EtOH abuse, or drug abuse. REVIEW OF SYSTEMS: A review of systems has been performed. Pertinences are as described in history of presenting illness. PHYSICAL EXAMINATION: VITAL SIGNS: Heart rate is 80 beats per minute, blood pressure is 99/54, respiratory rate is 18. CHEST: Reveals diminished air entry at the bases and diffuse wheezing. HEART: Reveals first and second heart sounds. Grade 4/6 ejection systolic murmur in the aortic area. ABDOMEN: Soft. EXTREMITIES: Revealed mild edema, peripheral pulses are felt. LABS: Show potassium of 4.2, creatinine is 1, BUN is 40. Trops are elevated. Hemoglobin is 12.1, white cell count is elevated at 26. ASSESSMENT AND PLAN: 1. Acute COPD exacerbation. 2. Severe aortic stenosis. 3. Acute non ST-segment elevation CO. PLAN: I will continue the patient on IV heparin. I will talk to Dr. Hinkle about possible cardiac cath once the respiratory status is stable. We need to address the issue of whether we are going to do a percutaneous aortic valve replacement or not. I am going to leave the patient on IV heparin for another 24 hours. JEREMIAH / CAYDEN: [id number] /
[2023-04-20 14:24] LABS: Appearance,Urine Clear (Clear); Bilirubin,Urine Negative (Negative); Blood,Urine Trace (Negative); Color,Urine Colorless; Glucose,Urine (UA) 4+ (Negative); Hyaline Casts,Urine 1 /lpf (0-2); Ketones,Urine Negative (Negative); Leukocyte Esterase,Urine Trace (Negative); Mucus,Urine Rare /hpf; Nitrite,Urine Negative (Negative); Protein,Urine Negative (Negative); RBC,Urine 2 /hpf (0-5); Specific Gravity,Urine 1.015 (1.001-1.035); Squamous Epithelial Cell,Urine <1 /hpf (0-4); Urobilinogen,Urine <2.0 mg/dL (<2.0); WBC,Urine 4 /hpf (0-5)
[2023-04-20] MEDS: HEPARIN SOD,PORK IN 0.45% NACL 25,000 UNIT in 0.45% NACL 1 250ML.BAG IV SCH (15:41)
[2023-04-20 17:58] LABS: Glucose,Whole Blood 195 mg/dL (70-110)
[2023-04-20] MEDS: IBUPROFEN 200 MG TAB PO PRN (23:23)
[2023-04-20 23:53] LABS: Glucose,Whole Blood 192 mg/dL (70-110)
[2023-04-21] MEDS: IPRATROPIUM-ALBUTEROL 3 ML NEB INHALATION PRN (00:35)
[2023-04-21 05:36] LABS: Basophils % (A) 0 %; Eosinophils # (A) 0.1 k/uL (0-0.7); Eosinophils % (A) 0 %; HGB 11.8 gm/dL (11.4-16.0); Hypochromasia Moderate; Lymphocytes # (A) 0.6 k/uL (1.0-4.8); Lymphocytes % (A) 2 %; MCH 30.3 pg (25.0-35.0); MCHC 31.1 g/dL (31.0-37.0); MCV 97.2 fL (80.0-100.0); Mean Platelet Volume 7.4; Monocytes # (A) 0.6 k/uL (0-1.0); Monocytes % (A) 2 %; Neutrophils # (A) 24.5 k/uL (1.3-7.7); Neutrophils % (A) 95 %; Platelet Count 246 k/uL (150-450); RDW 13.6 % (11.5-15.5); WBC 25.8 k/uL (3.8-10.6)
[2023-04-21 05:38] LABS: Glucose,Whole Blood 176 mg/dL (70-110)
[2023-04-21 06:07] LABS: ALT 21 U/L (4-34); AST 36 U/L (14-36); African American GFR (CKD) >90 (>60 ml/min/1.73 sqM); Albumin 3.5 g/dL (3.5-5.0); Alkaline Phosphatase 118 U/L (38-126); Anion Gap 5 mmol/L; Blood Urea Nitrogen 51 mg/dL (7-17); Calcium 8.9 mg/dL (8.4-10.2); Carbon Dioxide 37 mmol/L (22-30); Chloride 92 mmol/L (98-107); Glucose 167 mg/dL (74-99); Non-African American GFR(CKD) 83 (>60 ml/min/1.73 sqM); Potassium 4.5 mmol/L (3.5-5.1); Sodium 134 mmol/L (137-145); Total Bilirubin 0.3 mg/dL (0.2-1.3); Total Protein 6.2 g/dL (6.3-8.2)
[2023-04-21] MEDS: methylPREDNISolone SOD SUCCI 125 MG/2 ML VIAL IV SCH ×3 (06:54→16:47)
[2023-04-21] MEDS: IPRATROPIUM-ALBUTEROL 3 ML NEB INHALATION SCH ×4 (09:02→21:27)
[2023-04-21] MEDS: FORMOTEROL FUMARATE 20 MCG/2 ML NEBU INHALATION SCH ×2 (09:02→21:27)
[2023-04-21] MEDS: BUDESONIDE 1 MG/2 ML NEBU INHALATION SCH ×2 (09:02→21:31)
[2023-04-21] MEDS: METOPROLOL TARTRATE 25 MG TAB PO SCH (09:20)
[2023-04-21] MEDS: DAPAGLIFLOZIN PROPANEDIOL 5 MG TABLET PO SCH (09:20)
[2023-04-21] MEDS: ASPIRIN 81 MG PO SCH (09:20)
[2023-04-21] MEDS: FUROSEMIDE 40 MG TAB PO SCH (09:21)
[2023-04-21] MEDS: SERTRALINE 100 MG TAB PO SCH (09:21)
[2023-04-21] MEDS: guaiFENesin 600 MG TABLET.ER PO SCH ×2 (09:21→20:58)
--- NOTE | 2023-04-21 09:48 | P.PN ---
Subjective Progress Note Date: 04/21/23 62-year-old female patient with known to have advanced auction dependent COPD with an FEV1 of less than 30% of predicted and chronic oxygen dependence at 5 L/m nasal cannula. The patient has had several hospitalization for COPD exacerbation last hospitalization being in December 2022. The patient came in to the emergency department having progressive worsening shortness of breath. She was having diminished level of consciousness that she was also getting more lethargic. Based on that, the patient was placed on a BiPAP pressure of 12/5 cm of water with FiO2 of 50%. The patient remains actively bronchospastic and wheezy. Unable to generate volumes of above 200 mL while being on a BiPAP. Kourtney athing is labored and she is having marked diminish breath sounds bilaterally and she is actively bronchospastic and wheezy. Arterial blood gas was done this morning and it showed a pH of 7.29 with a pCO2 of 78 and pO2 of 58. This was an FiO2 of 40% and accordingly, the FiO2 was raised up to 50%. The viral screen was negative for Covid 19, influenza and RSV. She did have a troponin leaks with troponins being 0.1 and 0.9 respectively. The white cell count is at 26 with a hemoglobin of 15.6 and a platelet count of 237. Sodium is at 134, potassium is at 4.9, bicarbonate of 36, BUN is at 80 with a creatinine of 0.4. Cardiomegaly with some mild pulmonary vessel congestion. CT antigram of the chest was done and shows no evidence of any pulmonary embolism. There is evidence of pulmonary hypertension and the patient had enlarged pulmonary trunk. There is moderate calcification of the aortic valve. A fusiform aneurysmal dilatation of the ascending aorta measuring 5 x 4.9 cm. Mild cardiomegaly. Right rib fractures. There is diffuse emphysematous changes bilaterally and a few subcentimeter pulmonary nodules. The patient is currently on Rocephin and Zithromax. The patient on IV Solu-Medrol. The patient on DuoNeb about treatments [id number]. On outpatient basis, the patient will maintain on Symbicort,yupelri nebulized treatments once a day and 5 mg of prednisone as a maintenance. On today's evaluation of 04/20/2023, the patient did significant progress since yesterday. She was kept on BiPAP throughout the night and she improved. Her mental status recovers. This morning she is on 6 L of oxygen by nasal cannula. Fully alert and awake and communicating and tolerating diet. She did encounter a severe COPD exacerbation with an acute on top of chronic hypoxic and hypercapnic respiratory failure and for that reason she got moved to the intensive care unit where she was treated with a combination of bronchodilators and steroids. An arterial line was also started yesterday. This morning, she has no specific complaints. No chest pain. No angina. No palpitations. The blood work from today. Shows a WBC count 26, hemoglobin of 12.1 and a platelet count of 247. The sodium is at 133, potassium of 4.2, carotids 88 with a bicarb of 36. BUN is at 40 with a creatinine of 1.04. A repeat chest x-ray was done today and findings of essentially stable without any airspace disease or consolidation. No evidence of any pneumonia at this point in time. She is hemodynamically stable. She has not required any pressors. No was on a minimal dose of norepinephrine overnight and currently she is off pressors. The patient was also diabetes overnight with IV Lasix and the patient is a negative fluid balance of 2.1 L and the patient is going to be switched to oral Lasix. On today's evaluation of 04/21/2023, the patient is doing much better. Respiratory status is stable. She is currently on oxygen at 8 L nasal cannula. Her baseline oxygen requirement is around 5 L. Her current pulse ox is 91%. The patient has no significant respiratory distress at rest. No chest pain. Cardiac rhythm is sinus. On today's blood work, she has a white cell count of 25 which is essentially compatible to yesterday. The patient is a hemoglobin 11.8, platelet count of 246. Sodium level is at 134, potassium 4.5, BUN is 51 with a creatinine of 0.7. The chest x-ray from today is showing mild pulmonary vessel congestion and cardiomegaly. As stated earlier, the patient has a component of aortic stenosis which is moderate to severe with a valvular area of 0.9 cm. It encounter some hypotension earlier. She was also placed on pressors. Currently she is normotensive. She is receiving Lasix 40 mg by mouth daily. Antibiotic coverage is still with a combination of Rocephin and Zithromax. The patient is also on IV heparin. The patient is on IV Solu-Med rol. No signs of any CO2 narcosis. She is tolerating her diet. Objective - Vital Signs Vital signs: Vital Signs Temp 98.2 F 04/21/23 08:00 Pulse 107 H 04/21/23 09:02 Resp 20 04/21/23 09:02 BP 105/81 04/21/23 08:00 Pulse Ox 97 04/21/23 09:00 FiO2 50 04/21/23 09:00 Intake & Output 04/20/23 04/21/23 04/21/23 18:59 06:59 18:59 Intake Total 551.742 240 167.833 Output Total 555 1525 Balance -3.258 -1285 167.833 Weight 96.8 kg Intake: IV 300 Azithromycin 500 mg In 250 Sodium Chloride 0.9% 250 ml @ 250 mls/hr IVPB DAILY [facility] Rx#:[id number] cefTRIAXone 2 gm In 50 Sodium Chloride 0.9% 50 ml @ 100 mls/hr IVPB Q24HR [facility] Rx#:[id number] Intake, IV Titration 251.742 167.833 Amount Heparin Sod,Pork in 0.45% 239.667 167.833 NaCl 25,000 unit In 0.45 % NaCl 1 250ml.bag @ 11. 727 UNITS/KG/HR 10 mls/hr IV .Q24H [facility] Rx#: [id number] Norepinephrine 4 mg In 12.075 Sodium Chloride 0.9% 250 ml @ 0.05 MCG/KG/MIN 16. 245 mls/hr IV .[id number] [facility] Rx#:[id number] Oral 240 Output: Urine 555 1525 Other: Voiding Method Indwelling Catheter Indwelling Catheter ABP, PAP, CO, CI - Last Documented Arterial Blood Pressure 107/54 - Exam GENERAL EXAM: Alert, 62-year-old obese white female, the patient is awake and alert and communicating. No apparent distress to distress, the patient is currently on 8 L of O2 nasal cannula HEAD: Normocephalic and atraumatic EYES: Normal reaction of pupils, equal size. NOSE: Clear with pink turbinates. THROAT: No erythema or exudates. NECK: No masses, no JVD. CHEST: No chest wall deformity. LUNGS: Equal air entry with expiratory wheezes heard throughout, and there is improved breath sounds bilaterally compared to yesterday CVS: S1 and S2 normal with no audible murmur, regular rhythm. No extra heart sounds. ABDOMEN:Obese abdomen, no hepatosplenomegaly, active bowel sounds, no guarding or rigidity. SPINE: No scoliosis or deformity SKIN: No rashes CENTRAL NERVOUS SYSTEM: No focal deficits, tone is normal in all 4 extremities. EXTREMITIES: There is no peripheral edema, clubbing, or cyanosis. Peripheral pulses are intact. - Labs CBC & Chem 7: 04/21/23 05:18 04/21/23 05:18 Labs: Abnormal Lab Results - Last 24 Hours (Table) 04/20/23 04/20/23 04/20/23 Range/Units 11:29 14:00 17:56 WBC (3.8-10.6) k/uL Neutrophils # (1.3-7.7) k/uL Lymphocytes # (1.0-4.8) k/uL Sodium (137-145) mmol/L Chloride (98-107) mmol/L Carbon Dioxide (22-30) mmol/L BUN (7-17) mg/dL Glucose (74-99) mg/dL POC Glucose (mg/dL) 156 H 195 H (70-110) mg/dL Total Protein (6.3-8.2) g/dL Urine Glucose (UA) 4+ H (Negative) Urine Blood Trace H (Negative) Ur Leukocyte Esterase Trace H (Negative) Urine Mucus Rare H (None) /hpf 04/20/23 04/21/23 04/21/23 Range/Units 23:52 05:18 05:18 WBC 25.8 H (3.8-10.6) k/uL Neutrophils # 24.5 H (1.3-7.7) k/uL Lymphocytes # 0.6 L (1.0-4.8) k/uL Sodium 134 L (137-145) mmol/L Chloride 92 L (98-107) mmol/L Carbon Dioxide 37 H (22-30) mmol/L BUN 51 H (7-17) mg/dL Glucose 167 H (74-99) mg/dL POC Glucose (mg/dL) 192 H (70-110) mg/dL Total Protein 6.2 L (6.3-8.2) g/dL Urine Glucose (UA) (Negative) Urine Blood (Negative) Ur Leukocyte Esterase (Negative) Urine Mucus (None) /hpf 04/21/23 Range/Units 05:36 WBC (3.8-10.6) k/uL Neutrophils # (1.3-7.7) k/uL Lymphocytes # (1.0-4.8) k/uL Sodium (137-145) mmol/L Chloride (98-107) mmol/L Carbon Dioxide (22-30) mmol/L BUN (7-17) mg/dL Glucose (74-99) mg/dL POC Glucose (mg/dL) 176 H (70-110) mg/dL Total Protein (6.3-8.2) g/dL Urine Glucose (UA) (Negative) Urine Blood (Negative) Ur Leukocyte Esterase (Negative) Urine Mucus (None) /hpf Assessment and Plan Plan: Acute on chronic hypoxic and hypercapnic respiratory failure related to COPD exacerbation, currently on a BiPAP. The blood gases showing hypercapnic respiratory failure with ongoing respiratory acidosis. The patient is a DNR/DNI CODE STATUS. She has declined intubation the past. He was supported with BiPAP throughout the night and the patient is currently on 8 L of oxygen by nasal cannula and the BiPAP was discontinued. A repeat chest x-ray from today shows cardiomegaly along with some mild pulmonary vascular congestion The patient level of consciousness, likely secondary to CO2 narcosis, improved and the patient is awake and alert 3 Advanced COPD with an FEV1 of less than 30% of predicted Chronic hypoxic respiratory failure maternal O2 at 5 L per minute nasal cannula Troponin leak due to type II ischemia, currently on IV heparin Known history of coronary artery disease Chronic lower back pain Moderate to severe aortic stenosis with a peak gradient of 69 and a mean gradient of 46 and the estimated valve area of 0.9 Systolic heart failure with an ejection fraction of 45% Secondary pulmonary hypertension Ascending thoracic aortic aneurysm measuring 4.9 x 5 cm in size Plan Condition continues to improve Discontinue the IV heparin Patient will be kept on a BiPAP and depression with a modified stool 14/5 and FiO2 was brought up to 50% and this will be used overnight only and the patient can go on nasal cannula at and L note that her baseline oxygen requirements is at [address] angiogram of the chest was noted and there is no evidence of pneumonia or pulmonary embolism The patient will be given DuoNeb nebulized treatments [id number]. Perforomist and Pulmicort will be also added IV Solu-Medrol 60 mg every 6 hours to be continued for another 24 hours Continue Lasix 40 mg of by mouth Lasix She is a DNR/DNI CODE STATUS. Lovenox 40 mg subcu for DVT prophylaxis We'll continue to follow The patient will be transferred to a medical surgical floor with telemetry.
[2023-04-21] MEDS: AZITHROMYCIN 500 MG in SODIUM CHLORIDE 0.9% 250 ML IVPB SCH (10:01)
--- NOTE | 2023-04-21 10:16 | XR ---
EXAMINATION TYPE: XR chest 1V DATE OF EXAM: 04/21/2023 COMPARISON: 04/20/2023 HISTORY: 62 year-old female history of aortic stenosis TECHNIQUE: Single frontal view of the chest is obtained. FINDINGS: Heart borderline enlarged. Mild interstitial density perihilar and both lower lungs with r elative upper lung lucencies. No pleural effusion. IMPRESSION: COPD. Borderline heart size. Some increased interstitial density remains similar.
[2023-04-21] MEDS: ENOXAPARIN 40 MG/0.4 ML SYRINGE SQ SCH (10:46)
[2023-04-21 11:43] LABS: Glucose,Whole Blood 155 mg/dL (70-110)
[2023-04-21] MEDS: lisinopriL 10 MG TAB PO SCH (12:20)
[2023-04-21] MEDS: IBUPROFEN 200 MG TAB PO PRN ×2 (12:25→20:59)
--- NOTE | 2023-04-21 13:30 | CDI ---
Documentation Clarification Form Date: 04/21/2023 01:12:57 PM From: Osiris Marroquin RN CCDS Phone: [phone] Admit Date: 04/19/2023 07:05:00 AM Patient Name: Blanka Porras Visit Number: [id number] Discharge Date: ATTENTION: The Clinical Documentation Specialists (CDI) and [facility] Coding Staff appreciate your assistance in clarifying documentation. Please respond to the clarification below the line at the bottom and electronically sign. The CDI & [facility] Coding staff will review the response and follow-up if needed. Please note: Queries are made part of the Legal Health Record. If you have any questions, please contact the author of this message via ITS. Dr. Andres Dumont Your patient has the documented diagnosis of unspecified Systolic CHF, documented 04/20, Medicine note. Additional information regarding the acuity of Systolic CHF is requested. History/Risk Factors: 62-year-old Female presented to the ED with worsening shortness of breath at rest. Medical History: Severe COPD with FEV1 30% of predicted, CAD, CHF and chronic oxygen use. 04/20, Medicine Note. Clinical Indicators: VS/Pulse OX, 04/19: B/P 168/105, RR 126, Temp 98.4 F Oral, RR 30, SpO2 98% 5L nc Echocardiogram Results: Chest X Ray, 04/19: Cardiomegaly and mild pulmonary ECHO, 11/13: Left ventricular ejection fraction 45% RSVP 39 Mild mitral regurgitation, Severe aortic stenosis, Mild tricuspid regurgitation. Treatment: 04/19 04/20 Lasix 40mg IV Q12H; Farxiga 5mg PO Daily; 04/20 Lasix 40mg PO Daily In your professional opinion, can you please clarify the acuity of Systolic CHF if known? [ x] Acute on Chronic Systolic Heart Failure (reduced EF) [ ] Chronic Systolic Heart Failure (reduced EF) [ ] Other, please specify [ ] Unable to determine (Template Last Revised: May 2020) MTDD
--- NOTE | 2023-04-21 13:35 | P.PN ---
Subjective Progress Note Date: 04/21/23 Patient is a 62-year-old white female with past medical history significant for severe COPD with an FEV1 30% of predicted, chronic oxygen dependence on 5 L home O2, coronary artery disease, aortic valve stenosis, and chronic lower back pain who presented to the ER because of worsening shortness of breath. Patient stated that she was all right last night when she started complaining of worsening shortness of breath. Shortness of breath was present at rest. There was no complain of orthopnea or PND. No coughing of fever or chills. Patient was complaining of chest pain. Denies any cough. Because his worsening shortness of breath, EMS was called when EMS arrived, patient found to be tachycardic and tachypneic, patient was placed on nonrebreather and was transferred to the ER Initial lab work done in the ER showed WBC 26.7, hemoglobin 13.6, platelet count 237, sodium 134, potassium 4.9, chloride 89, BUN 18, creatinine 0.46 troponin 0.114 Influenza A not detected Influenza B not detected RSV not detected COVID-19 not detected EKG done in the ER showed heart rate of 119 , no ST segment elevation or depression seen, no T-wave inversions seen. Chest x-ray done in the ER showed cardiomegaly and mild pulmonary vascular congestion. Patient admitted to internal medicine service 04/20. Patient seen and examined. Blood work done this morning showed WBC 26.8 , hemoglobin 12.1, platelet count 247 sodium 133, potassium 4.2 BUN 40, creatinine 1.04. Patient currently off the BiPAP, on 6 L of oxygen. Sitting upright in the bed able to maintain a conversation. States breathing has improved. Denies any chest pain 04/21. Patient seen and examined. WBC 25.8, hemoglobin 11.8, sodium 134, potassium 4.5, BUN 51, creatinine 0.78. Currently on high flow nasal cannula at 10 L. patient is sitting upright in the bed, denies any shortness of breath at rest but gets short of breath on exertion. REVIEW OF SYSTEMS: CONSTITUTIONAL: No fever, no malaise,. CARDIOVASCULAR: No chest pain, no palpitations, no syncope. PULMONARY: As mentioned above GASTROINTESTINAL: No diarrhea, no nausea, no vomiting, no abdominal pain. NEUROLOGICAL: No headaches, no weakness, PHYSICAL EXAMINATION: GENERAL: The patient is alert and oriented x3, not in any acute distress. Well developed, well nourished. HEENT: Pupils are round and equally reacting to light. EOMI. No scleral icterus. No conjunctival pallor. Normocephalic, atraumatic. No pharyngeal erythema. No thyromegaly. CARDIOVASCULAR: S1 and S2 present. ejection systolic murmur audible PULMONARY: Coarse breath some bilaterally, expiratory wheeze audible ABDOMEN: Soft, nontender, nondistended, normoactive bowel sounds. No palpable organomegaly. MUSCULOSKELETAL: No joint swelling or deformity. EXTREMITIES: No cyanosis, clubbing, or pedal edema. NEUROLOGICAL: Gross neurological examination did not reveal any focal deficits. SKIN: No rashes. Assessment and plan Acute COPD exacerbation Acute on chronic hypoxemic and hypercapnic respiratory failure, secondary to above Acute metabolic encephalopathy Elevated troponins Systolic heart failure with an ejection fraction of 45% Secondary pulmonary hypertension Ascending thoracic aortic aneurysm measuring 4.9 x 5 cm in size History of Coronary artery disease History of aortic valve stenosis Chronic lower back pain History of anxiety and depression Ex-smoker Monitor vital signs Monitor CBC Monitor CMP Continue telemetry monitoring Continue breathing treatments Trend troponins Continue IV Solu-Medrol 40 mg every 8 Continue IV Rocephin and azithromycin DC pharmacy dose heparin Cardiology following, discuss with interventional cardiology regarding cardiac cath and aortic valve replacement. Pulmonary following In regards to hypertension, continue lisinopril and Lopressor Regards to hyperlipidemia continue Lipitor Labs and medication were reviewed.. Continue same treatment. Continue with symptomatic treatment. Resume home medication. Monitor labs and vitals. DVT and GI prophylaxis. Further recommendations as per clinical course of the patient Dictation was produced using [employer] dictation software. please excuse any grammatical, word or spelling errors. Objective - Vital Signs Vital signs: Vital Signs Temp 98.2 F 04/21/23 08:00 Pulse 107 H 04/21/23 09:02 Resp 20 04/21/23 09:02 BP 105/81 04/21/23 08:00 Pulse Ox 97 04/21/23 09:00 FiO2 50 04/21/23 09:00 Intake & Output 04/20/23 04/21/23 04/21/23 18:59 06:59 18:59 Intake Total 551.742 240 167.833 Output Total 555 1525 Balance -3.258 -1285 167.833 Weight 96.8 kg Intake: IV 300 Azithromycin 500 mg In 250 Sodium Chloride 0.9% 250 ml @ 250 mls/hr IVPB DAILY [facility] Rx#:[id number] cefTRIAXone 2 gm In 50 Sodium Chloride 0.9% 50 ml @ 100 mls/hr IVPB Q24HR [facility] Rx#:[id number] Intake, IV Titration 251.742 167.833 Amount Heparin Sod,Pork in 0.45% 239.667 167.833 NaCl 25,000 unit In 0.45 % NaCl 1 250ml.bag @ 11. 727 UNITS/KG/HR 10 mls/hr IV .Q24H [facility] Rx#: [id number] Norepinephrine 4 mg In 12.075 Sodium Chloride 0.9% 250 ml @ 0.05 MCG/KG/MIN 16. 245 mls/hr IV .[id number] [facility] Rx#:[id number] Oral 240 Output: Urine 555 1525 Other: Voiding Method Indwelling Catheter Indwelling Catheter ABP, PAP, CO, CI - Last Documented Arterial Blood Pressure 107/54 - Labs CBC & Chem 7: 04/21/23 05:18 04/21/23 05:18 Labs: Abnormal Lab Results - Last 24 Hours (Table) 04/20/23 04/20/23 04/20/23 Range/Units 11:29 14:00 17:56 WBC (3.8-10.6) k/uL Neutrophils # (1.3-7.7) k/uL Lymphocytes # (1.0-4.8) k/uL Sodium (137-145) mmol/L Chloride (98-107) mmol/L Carbon Dioxide (22-30) mmol/L BUN (7-17) mg/dL Glucose (74-99) mg/dL POC Glucose (mg/dL) 156 H 195 H (70-110) mg/dL Total Protein (6.3-8.2) g/dL Urine Glucose (UA) 4+ H (Negative) Urine Blood Trace H (Negative) Ur Leukocyte Esterase Trace H (Negative) Urine Mucus Rare H (None) /hpf 04/20/23 04/21/23 04/21/23 Range/Units 23:52 05:18 05:18 WBC 25.8 H (3.8-10.6) k/uL Neutrophils # 24.5 H (1.3-7.7) k/uL Lymphocytes # 0.6 L (1.0-4.8) k/uL Sodium 134 L (137-145) mmol/L Chloride 92 L (98-107) mmol/L Carbon Dioxide 37 H (22-30) mmol/L BUN 51 H (7-17) mg/dL Glucose 167 H (74-99) mg/dL POC Glucose (mg/dL) 192 H (70-110) mg/dL Total Protein 6.2 L (6.3-8.2) g/dL Urine Glucose (UA) (Negative) Urine Blood (Negative) Ur Leukocyte Esterase (Negative) Urine Mucus (None) /hpf 04/21/23 Range/Units 05:36 WBC (3.8-10.6) k/uL Neutrophils # (1.3-7.7) k/uL Lymphocytes # (1.0-4.8) k/uL Sodium (137-145) mmol/L Chloride (98-107) mmol/L Carbon Dioxide (22-30) mmol/L BUN (7-17) mg/dL Glucose (74-99) mg/dL POC Glucose (mg/dL) 176 H (70-110) mg/dL Total Protein (6.3-8.2) g/dL Urine Glucose (UA) (Negative) Urine Blood (Negative) Ur Leukocyte Esterase (Negative) Urine Mucus (None) /hpf
[2023-04-21 16:35] LABS: Glucose,Whole Blood 241 mg/dL (70-110)
[2023-04-21 19:31] LABS: Glucose,Whole Blood 299 mg/dL (70-110)
--- NOTE | 2023-04-21 20:52 | PN ---
PROGRESS NOTE HISTORY OF PRESENT ILLNESS: Blanka is a 62-year-old lady with history of COPD, aortic stenosis, who was admitted to hospital with COPD exacerbation and vhp-LN-zjgvcis elevation [place]. The plan is to perform a cardiac catheterization on her. Hopefully, this can be done over the weekend. I spoke to Dr. Hinkle, who is going to do this. PHYSICAL EXAMINATION: GENERAL: She is comfortable at rest. Respiratory distress has improved. VITAL SIGNS: Heart rate is 80 beats per minute. Blood pressure is 123/79, and respiratory rate is 18. CHEST: Reveals diffuse bilateral rhonchi. HEART: Reveals first and second heart sounds. Ejection systolic murmur in the aortic area. ABDOMEN: Soft. EXTREMITIES: Reveal bilateral pitting edema. LABORATORY DATA: Labs show a creatinine of 0.78, potassium is 4.5, hemoglobin is 11.8. ASSESSMENT: 1. Yxq-XP-abxxjrb elevation myocardial infarction. 2. Severe aortic stenosis. 3. Chronic obstructive pulmonary disease exacerbation. PLAN: The patient will undergo cardiac catheterization over the weekend. MMSHRUTHI / STORMN: [id number] /
[2023-04-21] MEDS: ATORVASTATIN 40 MG TAB PO SCH (20:58)
[2023-04-21] MEDS: INSULIN ASPART (NovoLOG) 100 UNIT/ML VIAL SQ SCH (20:59)
[2023-04-21] MEDS: INSULIN DETEMIR (LEVEMIR) 100 UNIT/ML SYR SQ SCH (21:29)
[2023-04-22] MEDS: methylPREDNISolone SOD SUCCI 125 MG/2 ML VIAL IV SCH ×4 (00:52→16:46)
[2023-04-22 04:44] LABS: Basophils % (A) 0 %; Eosinophils % (A) 0 %; HGB 11.7 gm/dL (11.4-16.0); Hypochromasia Moderate; Lymphocytes # (A) 0.4 k/uL (1.0-4.8); Lymphocytes % (A) 2 %; MCH 29.9 pg (25.0-35.0); MCHC 30.8 g/dL (31.0-37.0); MCV 97.2 fL (80.0-100.0); Mean Platelet Volume 7.7; Monocytes # (A) 0.5 k/uL (0-1.0); Monocytes % (A) 3 %; Neutrophils # (A) 17.2 k/uL (1.3-7.7); Neutrophils % (A) 95 %; Platelet Count 244 k/uL (150-450); RBC 3.91 m/uL (3.80-5.40); RDW 13.4 % (11.5-15.5); WBC 18.1 k/uL (3.8-10.6)
[2023-04-22 05:06] LABS: ALT 21 U/L (4-34); AST 29 U/L (14-36); African American GFR (CKD) 87 (>60 ml/min/1.73 sqM); Albumin 3.5 g/dL (3.5-5.0); Alkaline Phosphatase 94 U/L (38-126); Anion Gap 7 mmol/L; Blood Urea Nitrogen 50 mg/dL (7-17); Carbon Dioxide 37 mmol/L (22-30); Chloride 93 mmol/L (98-107); Glucose 150 mg/dL (74-99); Magnesium 2.8 mg/dL (1.6-2.3); Non-African American GFR(CKD) 75 (>60 ml/min/1.73 sqM); Potassium 4.1 mmol/L (3.5-5.1); Sodium 137 mmol/L (137-145); Total Bilirubin 0.3 mg/dL (0.2-1.3); Total Protein 6.2 g/dL (6.3-8.2)
[2023-04-22 06:11] LABS: Glucose,Whole Blood 154 mg/dL (70-110)
[2023-04-22] MEDS: INSULIN ASPART (NovoLOG) 100 UNIT/ML VIAL SQ SCH ×4 (06:23→21:06)
[2023-04-22] MEDS ORDERED: ASPIRIN 325 MG TAB PO STA (08:50)
[2023-04-22] MEDS ORDERED: ATORVASTATIN 80 MG TAB PO STA (08:50)
[2023-04-22] MEDS: guaiFENesin 600 MG TABLET.ER PO SCH ×2 (09:19→21:05)
[2023-04-22] MEDS: METOPROLOL TARTRATE 25 MG TAB PO SCH (09:19)
[2023-04-22] MEDS: lisinopriL 10 MG TAB PO SCH (09:19)
[2023-04-22] MEDS: ENOXAPARIN 40 MG/0.4 ML SYRINGE SQ SCH (09:20)
[2023-04-22] MEDS: DAPAGLIFLOZIN PROPANEDIOL 5 MG TABLET PO SCH (09:20)
[2023-04-22] MEDS: SERTRALINE 100 MG TAB PO SCH (09:20)
[2023-04-22] MEDS: FUROSEMIDE 40 MG TAB PO SCH (09:20)
--- NOTE | 2023-04-22 09:25 | P.PN ---
Subjective HISTORY OF PRESENTING ILLNESS Pleasant 62-year-old female with history of severe COPD, aortic stenosis who presented secondary to shortness breath and was hypoxic with pulse ox in the 70s requiring BiPAP. She did have non-STEMI and additionally has severe aortic stenosis. She denies any chest pain or pressure. Prior echo from 11/22/2022 showed severe aortic stenosis with a maximum velocity 4.2 m/s. Creatinine stable 0.8, BUN 50. Troponin 1.4 on admission. She is currently on 7 L oxygen PHYSICAL EXAMINATION Vital signs reviewed. CONSTITUTIONAL: No apparent distress, obese, chronically ill-appearing, no increased work of breathing HEENT: Head is normocephalic. Pupils are equal, round. Sclerae anicteric. Mucous membranes of the mouth are moist. No JVD. No carotid bruit. CHEST EXAMINATION: Decreased air movement, mild wheeze HEART EXAMINATION: Regular rate and rhythm. S1 heard. Soft S2, +3/6 systolic murmur, no gallops or rub. ABDOMEN: Soft, nontender. Positive bowel sounds. EXTREMITIES: 2+ peripheral pulses, no lower extremity edema and no calf tenderness. NEUROLOGIC EXAMINATION: Patient is awake, alert and oriented x3. ASSESSMENT 1. Non-STEMI, may be related to hypoxia of her multiple risk factors 2. Severe aortic stenosis 3. Diabetes mellitus type 2 4. Severe COPD on 5 L home O2 5. Hypertension 6. Hyperlipidemia PLAN We had previously discussed heart catheterization however patient apparently was not expecting this today. Discussed risks and benefits. Although much of her symptoms related to COPD significant elevation of troponins and prior echo showing mild decrease EF 45%. Recent benefits explained and patient agreeable. Pending on coronary anatomy may consider TAVR workup in the future. Objective - Vital Signs Vital signs: Vital Signs Temp 98.1 F 04/22/23 04:00 Pulse 67 04/22/23 05:31 Resp 20 04/22/23 05:31 BP 106/67 04/22/23 04:00 Pulse Ox 93 L 04/22/23 04:00 FiO2 50 04/21/23 09:00 Intake & Output 04/21/23 04/22/23 04/22/23 18:59 06:59 18:59 Intake Total 837.833 Output Total 2500 Balance -1662.167 Intake: Intake, IV Titration 167.833 Amount Heparin Sod,Pork in 0.45% 167.833 NaCl 25,000 unit In 0.45 % NaCl 1 250ml.bag @ 11. 727 UNITS/KG/HR 10 mls/hr IV .Q24H [facility] Rx#: [id number] Oral 670 Output: Urine 2500 Uretheral (Wilkins) 1100 Other: Voiding Method Indwelling Catheter # Voids 2 ABP, PAP, CO, CI - Last Documented Arterial Blood Pressure 107/54 - Labs CBC & Chem 7: 04/22/23 03:43 04/22/23 03:43 Labs: Abnormal Lab Results - Last 24 Hours (Table) 04/21/23 04/21/23 04/21/23 Range/Units 11:41 16:34 19:30 WBC (3.8-10.6) k/uL MCHC (31.0-37.0) g/dL Neutrophils # (1.3-7.7) k/uL Lymphocytes # (1.0-4.8) k/uL Chloride (98-107) mmol/L Carbon Dioxide (22-30) mmol/L BUN (7-17) mg/dL Glucose (74-99) mg/dL POC Glucose (mg/dL) 155 H 241 H 299 H (70-110) mg/dL Magnesium (1.6-2.3) mg/dL Total Protein (6.3-8.2) g/dL 04/22/23 04/22/23 04/22/23 Range/Units 03:43 03:43 06:08 WBC 18.1 H (3.8-10.6) k/uL MCHC 30.8 L (31.0-37.0) g/dL Neutrophils # 17.2 H (1.3-7.7) k/uL Lymphocytes # 0.4 L (1.0-4.8) k/uL Chloride 93 L (98-107) mmol/L Carbon Dioxide 37 H (22-30) mmol/L BUN 50 H (7-17) mg/dL Glucose 150 H (74-99) mg/dL POC Glucose (mg/dL) 154 H (70-110) mg/dL Magnesium 2.8 H (1.6-2.3) mg/dL Total Protein 6.2 L (6.3-8.2) g/dL
[2023-04-22] MEDS: BUDESONIDE 1 MG/2 ML NEBU INHALATION SCH ×2 (10:01→20:59)
[2023-04-22] MEDS: IPRATROPIUM-ALBUTEROL 3 ML NEB INHALATION SCH ×4 (10:01→21:00)
[2023-04-22] MEDS: FORMOTEROL FUMARATE 20 MCG/2 ML NEBU INHALATION SCH ×2 (10:01→20:59)
[2023-04-22 11:29] LABS: Glucose,Whole Blood 158 mg/dL (70-110)
--- NOTE | 2023-04-22 12:20 | P.PN ---
Subjective Progress Note Date: 04/22/23 62-year-old female patient with known to have advanced auction dependent COPD with an FEV1 of less than 30% of predicted and chronic oxygen dependence at 5 L/m nasal cannula. The patient has had several hospitalization for COPD exacerbation last hospitalization being in December 2022. The patient came in to the emergency department having progressive worsening shortness of breath. She was having diminished level of consciousness that she was also getting more lethargic. Based on that, the patient was placed on a BiPAP pressure of 12/5 cm of water with FiO2 of 50%. The patient remains actively bronchospastic and wheezy. Unable to generate volumes of above 200 mL while being on a BiPAP. Kourtney athing is labored and she is having marked diminish breath sounds bilaterally and she is actively bronchospastic and wheezy. Arterial blood gas was done this morning and it showed a pH of 7.29 with a pCO2 of 78 and pO2 of 58. This was an FiO2 of 40% and accordingly, the FiO2 was raised up to 50%. The viral screen was negative for Covid 19, influenza and RSV. She did have a troponin leaks with troponins being 0.1 and 0.9 respectively. The white cell count is at 26 with a hemoglobin of 15.6 and a platelet count of 237. Sodium is at 134, potassium is at 4.9, bicarbonate of 36, BUN is at 80 with a creatinine of 0.4. Cardiomegaly with some mild pulmonary vessel congestion. CT antigram of the chest was done and shows no evidence of any pulmonary embolism. There is evidence of pulmonary hypertension and the patient had enlarged pulmonary trunk. There is moderate calcification of the aortic valve. A fusiform aneurysmal dilatation of the ascending aorta measuring 5 x 4.9 cm. Mild cardiomegaly. Right rib fractures. There is diffuse emphysematous changes bilaterally and a few subcentimeter pulmonary nodules. The patient is currently on Rocephin and Zithromax. The patient on IV Solu-Medrol. The patient on DuoNeb about treatments [id number]. On outpatient basis, the patient will maintain on Symbicort,yupelri nebulized treatments once a day and 5 mg of prednisone as a maintenance. On today's evaluation of 04/20/2023, the patient did significant progress since yesterday. She was kept on BiPAP throughout the night and she improved. Her mental status recovers. This morning she is on 6 L of oxygen by nasal cannula. Fully alert and awake and communicating and tolerating diet. She did encounter a severe COPD exacerbation with an acute on top of chronic hypoxic and hypercapnic respiratory failure and for that reason she got moved to the intensive care unit where she was treated with a combination of bronchodilators and steroids. An arterial line was also started yesterday. This morning, she has no specific complaints. No chest pain. No angina. No palpitations. The blood work from today. Shows a WBC count 26, hemoglobin of 12.1 and a platelet count of 247. The sodium is at 133, potassium of 4.2, carotids 88 with a bicarb of 36. BUN is at 40 with a creatinine of 1.04. A repeat chest x-ray was done today and findings of essentially stable without any airspace disease or consolidation. No evidence of any pneumonia at this point in time. She is hemodynamically stable. She has not required any pressors. No was on a minimal dose of norepinephrine overnight and currently she is off pressors. The patient was also diabetes overnight with IV Lasix and the patient is a negative fluid balance of 2.1 L and the patient is going to be switched to oral Lasix. On today's evaluation of 04/21/2023, the patient is doing much better. Respiratory status is stable. She is currently on oxygen at 8 L nasal cannula. Her baseline oxygen requirement is around 5 L. Her current pulse ox is 91%. The patient has no significant respiratory distress at rest. No chest pain. Cardiac rhythm is sinus. On today's blood work, she has a white cell count of 25 which is essentially compatible to yesterday. The patient is a hemoglobin 11.8, platelet count of 246. Sodium level is at 134, potassium 4.5, BUN is 51 with a creatinine of 0.7. The chest x-ray from today is showing mild pulmonary vessel congestion and cardiomegaly. As stated earlier, the patient has a component of aortic stenosis which is moderate to severe with a valvular area of 0.9 cm. It encounter some hypotension earlier. She was also placed on pressors. Currently she is normotensive. She is receiving Lasix 40 mg by mouth daily. Antibiotic coverage is still with a combination of Rocephin and Zithromax. The patient is also on IV heparin. The patient is on IV Solu-Med rol. No signs of any CO2 narcosis. She is tolerating her diet. On 04/22/2023, the patient is outside anticoagulated and the patient's coagulation floor. He woke a spastic and wheezing. Nevertheless, she is off the BiPAP and she is currently on oxygen. She is on 7 L of oxygen by nasal cannula with a pulse ox of 94%. She remains on bronchodilators. She remains on antibiotics. She remains on steroids. She has 7 and the patient troponin and the patient is being considered for cardiac catheterization. She is to have any chest pain. No signs of any CO2 narcosis and this point in time. Alert and awake and communicating. Objective - Vital Signs Vital signs: Vital Signs Temp 98.1 F 04/22/23 09:00 Pulse 98 04/22/23 10:22 Resp 20 04/22/23 09:00 BP 115/75 04/22/23 09:00 Pulse Ox 90 L 04/22/23 10:01 FiO2 50 04/21/23 09:00 Intake & Output 04/21/23 04/22/23 04/22/23 18:59 06:59 18:59 Intake Total 837.833 Output Total 2500 Balance -1662.167 Intake: Intake, IV Titration 167.833 Amount Heparin Sod,Pork in 0.45% 167.833 NaCl 25,000 unit In 0.45 % NaCl 1 250ml.bag @ 11. 727 UNITS/KG/HR 10 mls/hr IV .Q24H [facility] Rx#: [id number] Oral 670 Output: Urine 2500 Uretheral (Wilkins) 1100 Other: Voiding Method Indwelling Catheter Bedside Commode # Voids 2 ABP, PAP, CO, CI - Last Documented Arterial Blood Pressure 107/54 - Exam GENERAL EXAM: Alert, 62-year-old obese white female, the patient is awake and alert and communicating. No apparent distress to distress, the patient is currently on 8 L of O2 nasal cannula HEAD: Normocephalic and atraumatic EYES: Normal reaction of pupils, equal size. NOSE: Clear with pink turbinates. THROAT: No erythema or exudates. NECK: No masses, no JVD. CHEST: No chest wall deformity. LUNGS: Equal air entry with expiratory wheezes heard throughout, and there is improved breath sounds bilaterally compared to yesterday CVS: S1 and S2 normal with no audible murmur, regular rhythm. No extra heart sounds. ABDOMEN:Obese abdomen, no hepatosplenomegaly, active bowel sounds, no guarding or rigidity. SPINE: No scoliosis or deformity SKIN: No rashes CENTRAL NERVOUS SYSTEM: No focal deficits, tone is normal in all 4 extremities. EXTREMITIES: There is no peripheral edema, clubbing, or cyanosis. Peripheral pulses are intact. - Labs CBC & Chem 7: 04/22/23 03:43 04/22/23 03:43 Labs: Abnormal Lab Results - Last 24 Hours (Table) 04/21/23 04/21/23 04/21/23 Range/Units 11:41 16:34 19:30 WBC (3.8-10.6) k/uL MCHC (31.0-37.0) g/dL Neutrophils # (1.3-7.7) k/uL Lymphocytes # (1.0-4.8) k/uL Chloride (98-107) mmol/L Carbon Dioxide (22-30) mmol/L BUN (7-17) mg/dL Glucose (74-99) mg/dL POC Glucose (mg/dL) 155 H 241 H 299 H (70-110) mg/dL Magnesium (1.6-2.3) mg/dL Total Protein (6.3-8.2) g/dL 04/22/23 04/22/23 04/22/23 Range/Units 03:43 03:43 06:08 WBC 18.1 H (3.8-10.6) k/uL MCHC 30.8 L (31.0-37.0) g/dL Neutrophils # 17.2 H (1.3-7.7) k/uL Lymphocytes # 0.4 L (1.0-4.8) k/uL Chloride 93 L (98-107) mmol/L Carbon Dioxide 37 H (22-30) mmol/L BUN 50 H (7-17) mg/dL Glucose 150 H (74-99) mg/dL POC Glucose (mg/dL) 154 H (70-110) mg/dL Magnesium 2.8 H (1.6-2.3) mg/dL Total Protein 6.2 L (6.3-8.2) g/dL Assessment and Plan Plan: Acute on chronic hypoxic and hypercapnic respiratory failure related to COPD exacerbation, currently on a BiPAP. The blood gases showing hypercapnic respiratory failure with ongoing respiratory acidosis. The patient is a DNR/DNI CODE STATUS. She has declined intubation the past. He was supported with BiPAP throughout the night and the patient is currently on 8 L of oxygen by nasal cannula and the BiPAP was discontinued. A repeat chest x-ray from today shows cardiomegaly along with some mild pulmonary vascular congestion The patient level of consciousness, likely secondary to CO2 narcosis, improved and the patient is awake and alert 3 Advanced COPD with an FEV1 of less than 30% of predicted Chronic hypoxic respiratory failure maternal O2 at 5 L per minute nasal cannula Troponin leak due to type II ischemia, currently on IV heparin, troponin peaked at for 7. Consider an underlying non-ST segment elevation myocardial infarction. Known history of coronary artery disease Chronic lower back pain Moderate to severe aortic stenosis with a peak gradient of 69 and a mean gradient of 46 and the estimated valve area of 0.9 Systolic heart failure with an ejection fraction of 45% Secondary pulmonary hypertension Ascending thoracic aortic aneurysm measuring 4.9 x 5 cm in size Plan Condition continues to improve, currently on 7 L of oxygen by nasal cannula. The based on oxygen requirements at 5 L. Patient is currently off IV heparin. Patient will be kept on a BiPAP and depression with a modified stool 14/5 and FiO2 was brought up to 50% and this will be used overnight only and the patient can go on nasal cannula at and L note that her baseline oxygen requirements is at [address] angiogram of the chest was noted and there is no evidence of pneumonia or pulmonary embolism The patient will be given DuoNeb nebulized treatments [id number]. Perforomist and Pulmicort will be also added IV Solu-Medrol 60 mg every 6 hours to be continued for another 24 hours Continue Lasix 40 mg of by mouth Lasix She is a DNR/DNI CODE STATUS. Lovenox 40 mg subcu for DVT prophylaxis Patient is being considered for cardiac catheterization. We'll continue to follow The patient will be transferred to a medical surgical floor with telemetry.
--- NOTE | 2023-04-22 14:38 | P.PN ---
Subjective Progress Note Date: 04/22/23 Patient is a 62-year-old white female with past medical history significant for severe COPD with an FEV1 30% of predicted, chronic oxygen dependence on 5 L home O2, coronary artery disease, aortic valve stenosis, and chronic lower back pain who presented to the ER because of worsening shortness of breath. Patient stated that she was all right last night when she started complaining of worsening shortness of breath. Shortness of breath was present at rest. There was no complain of orthopnea or PND. No coughing of fever or chills. Patient was complaining of chest pain. Denies any cough. Because his worsening shortness of breath, EMS was called when EMS arrived, patient found to be tachycardic and tachypneic, patient was placed on nonrebreather and was transferred to the ER Initial lab work done in the ER showed WBC 26.7, hemoglobin 13.6, platelet count 237, sodium 134, potassium 4.9, chloride 89, BUN 18, creatinine 0.46 troponin 0.114 Influenza A not detected Influenza B not detected RSV not detected COVID-19 not detected EKG done in the ER showed heart rate of 119 , no ST segment elevation or depression seen, no T-wave inversions seen. Chest x-ray done in the ER showed cardiomegaly and mild pulmonary vascular congestion. Patient admitted to internal medicine service 04/20. Patient seen and examined. Blood work done this morning showed WBC 26.8 , hemoglobin 12.1, platelet count 247 sodium 133, potassium 4.2 BUN 40, creatinine 1.04. Patient currently off the BiPAP, on 6 L of oxygen. Sitting upright in the bed able to maintain a conversation. States breathing has improved. Denies any chest pain 04/21. Patient seen and examined. WBC 25.8, hemoglobin 11.8, sodium 134, potassium 4.5, BUN 51, creatinine 0.78. Currently on high flow nasal cannula at 10 L. patient is sitting upright in the bed, denies any shortness of breath at rest but gets short of breath on exertion. 04/22. Patient seen and examined. States breathing has improved. Still gets short of breath on exertion. Cardiology planning cardiac cath, most likely on Monday. REVIEW OF SYSTEMS: CONSTITUTIONAL: No fever, no malaise,. CARDIOVASCULAR: No chest pain, no palpitations, no syncope. PULMONARY: As mentioned above GASTROINTESTINAL: No diarrhea, no nausea, no vomiting, no abdominal pain. NEUROLOGICAL: No headaches, no weakness, PHYSICAL EXAMINATION: GENERAL: The patient is alert and oriented x3, not in any acute distress. Well developed, well nourished. HEENT: Pupils are round and equally reacting to light. EOMI. No scleral icterus. No conjunctival pallor. Normocephalic, atraumatic. No pharyngeal erythema. No thyromegaly. CARDIOVASCULAR: S1 and S2 present. ejection systolic murmur audible PULMONARY: Coarse breath some bilaterally, expiratory wheeze audible ABDOMEN: Soft, nontender, nondistended, normoactive bowel sounds. No palpable organomegaly. MUSCULOSKELETAL: No joint swelling or deformity. EXTREMITIES: No cyanosis, clubbing, or pedal edema. NEUROLOGICAL: Gross neurological examination did not reveal any focal deficits. SKIN: No rashes. Assessment and plan Acute COPD exacerbation Acute on chronic hypoxemic and hypercapnic respiratory failure, secondary to above Acute metabolic encephalopathy Elevated troponins Systolic heart failure with an ejection fraction of 45% Secondary pulmonary hypertension Ascending thoracic aortic aneurysm measuring 4.9 x 5 cm in size History of Coronary artery disease History of aortic valve stenosis Chronic lower back pain History of anxiety and depression Ex-smoker Monitor vital signs Monitor CBC Monitor CMP Continue telemetry monitoring Continue breathing treatments Trend troponins Continue IV Solu-Medrol 40 mg every 8 Continue IV Rocephin Cardiology following, discuss with interventional cardiology regarding cardiac cath and aortic valve replacement. Cardiology planning cardiac cath on Monday Pulmonary following In regards to hypertension, continue lisinopril and Lopressor Regards to hyperlipidemia continue Lipitor Labs and medication were reviewed.. Continue same treatment. Continue with symptomatic treatment. Resume home medication. Monitor labs and vitals. DVT and GI prophylaxis. Further recommendations as per clinical course of the patient Dictation was produced using [employer] dictation software. please excuse any grammatical, word or spelling errors. Objective - Vital Signs Vital signs: Vital Signs Temp 98.1 F 04/22/23 09:00 Pulse 96 04/22/23 13:30 Resp 19 04/22/23 11:52 BP 112/62 04/22/23 11:52 Pulse Ox 94 L 04/22/23 11:52 FiO2 50 04/21/23 09:00 Intake & Output 04/21/23 04/22/23 04/22/23 18:59 06:59 18:59 Intake Total 837.833 118 Output Total 2500 Balance -1662.167 118 Intake: Intake, IV Titration 167.833 Amount Heparin Sod,Pork in 0.45% 167.833 NaCl 25,000 unit In 0.45 % NaCl 1 250ml.bag @ 11. 727 UNITS/KG/HR 10 mls/hr IV .Q24H [facility] Rx#: [id number] Oral 670 118 Output: Urine 2500 Uretheral (Wilkins) 1100 Other: Voiding Method Indwelling Catheter Bedside Commode # Voids 2 ABP, PAP, CO, CI - Last Documented Arterial Blood Pressure 107/54 - Labs CBC & Chem 7: 04/22/23 03:43 04/22/23 03:43 Labs: Abnormal Lab Results - Last 24 Hours (Table) 04/21/23 04/21/23 04/22/23 Range/Units 16:34 19:30 03:43 WBC 18.1 H (3.8-10.6) k/uL MCHC 30.8 L (31.0-37.0) g/dL Neutrophils # 17.2 H (1.3-7.7) k/uL Lymphocytes # 0.4 L (1.0-4.8) k/uL Chloride (98-107) mmol/L Carbon Dioxide (22-30) mmol/L BUN (7-17) mg/dL Glucose (74-99) mg/dL POC Glucose (mg/dL) 241 H 299 H (70-110) mg/dL Magnesium (1.6-2.3) mg/dL Total Protein (6.3-8.2) g/dL 04/22/23 04/22/23 04/22/23 Range/Units 03:43 06:08 11:27 WBC (3.8-10.6) k/uL MCHC (31.0-37.0) g/dL Neutrophils # (1.3-7.7) k/uL Lymphocytes # (1.0-4.8) k/uL Chloride 93 L (98-107) mmol/L Carbon Dioxide 37 H (22-30) mmol/L BUN 50 H (7-17) mg/dL Glucose 150 H (74-99) mg/dL POC Glucose (mg/dL) 154 H 158 H (70-110) mg/dL Magnesium 2.8 H (1.6-2.3) mg/dL Total Protein 6.2 L (6.3-8.2) g/dL
[2023-04-22 16:17] LABS: Glucose,Whole Blood 162 mg/dL (70-110)
[2023-04-22 20:16] LABS: Glucose,Whole Blood 232 mg/dL (70-110)
[2023-04-22] MEDS: ATORVASTATIN 40 MG TAB PO SCH (21:05)
[2023-04-22] MEDS: IBUPROFEN 200 MG TAB PO PRN (21:06)
[2023-04-22] MEDS: INSULIN DETEMIR (LEVEMIR) 100 UNIT/ML SYR SQ SCH (21:06)
[2023-04-23] MEDS: methylPREDNISolone SOD SUCCI 125 MG/2 ML VIAL IV SCH ×3 (00:26→12:02)
[2023-04-23 06:20] LABS: Glucose,Whole Blood 209 mg/dL (70-110)
[2023-04-23] MEDS: INSULIN ASPART (NovoLOG) 100 UNIT/ML VIAL SQ SCH ×4 (06:41→20:36)
[2023-04-23] MEDS: BUDESONIDE 1 MG/2 ML NEBU INHALATION SCH ×2 (07:49→20:24)
[2023-04-23] MEDS: IPRATROPIUM-ALBUTEROL 3 ML NEB INHALATION SCH ×4 (07:49→20:24)
[2023-04-23] MEDS: FORMOTEROL FUMARATE 20 MCG/2 ML NEBU INHALATION SCH ×2 (07:49→20:24)
[2023-04-23] MEDS: ENOXAPARIN 40 MG/0.4 ML SYRINGE SQ SCH (09:03)
[2023-04-23] MEDS: lisinopriL 10 MG TAB PO SCH (09:04)
[2023-04-23] MEDS: METOPROLOL TARTRATE 25 MG TAB PO SCH (09:05)
[2023-04-23] MEDS: ASPIRIN 81 MG PO SCH (09:05)
[2023-04-23] MEDS: DAPAGLIFLOZIN PROPANEDIOL 5 MG TABLET PO SCH (09:06)
[2023-04-23] MEDS: SERTRALINE 100 MG TAB PO SCH (09:06)
[2023-04-23] MEDS: FUROSEMIDE 40 MG TAB PO SCH (09:06)
[2023-04-23] MEDS: guaiFENesin 600 MG TABLET.ER PO SCH ×2 (09:06→20:35)
[2023-04-23 11:47] LABS: Glucose,Whole Blood 213 mg/dL (70-110)
--- NOTE | 2023-04-23 12:43 | P.PN ---
Subjective Progress Note Date: 04/23/23 62-year-old female patient with known to have advanced auction dependent COPD with an FEV1 of less than 30% of predicted and chronic oxygen dependence at 5 L/m nasal cannula. The patient has had several hospitalization for COPD exacerbation last hospitalization being in December 2022. The patient came in to the emergency department having progressive worsening shortness of breath. She was having diminished level of consciousness that she was also getting more lethargic. Based on that, the patient was placed on a BiPAP pressure of 12/5 cm of water with FiO2 of 50%. The patient remains actively bronchospastic and wheezy. Unable to generate volumes of above 200 mL while being on a BiPAP. Kourtney athing is labored and she is having marked diminish breath sounds bilaterally and she is actively bronchospastic and wheezy. Arterial blood gas was done this morning and it showed a pH of 7.29 with a pCO2 of 78 and pO2 of 58. This was an FiO2 of 40% and accordingly, the FiO2 was raised up to 50%. The viral screen was negative for Covid 19, influenza and RSV. She did have a troponin leaks with troponins being 0.1 and 0.9 respectively. The white cell count is at 26 with a hemoglobin of 15.6 and a platelet count of 237. Sodium is at 134, potassium is at 4.9, bicarbonate of 36, BUN is at 80 with a creatinine of 0.4. Cardiomegaly with some mild pulmonary vessel congestion. CT antigram of the chest was done and shows no evidence of any pulmonary embolism. There is evidence of pulmonary hypertension and the patient had enlarged pulmonary trunk. There is moderate calcification of the aortic valve. A fusiform aneurysmal dilatation of the ascending aorta measuring 5 x 4.9 cm. Mild cardiomegaly. Right rib fractures. There is diffuse emphysematous changes bilaterally and a few subcentimeter pulmonary nodules. The patient is currently on Rocephin and Zithromax. The patient on IV Solu-Medrol. The patient on DuoNeb about treatments [id number]. On outpatient basis, the patient will maintain on Symbicort,yupelri nebulized treatments once a day and 5 mg of prednisone as a maintenance. On today's evaluation of 04/20/2023, the patient did significant progress since yesterday. She was kept on BiPAP throughout the night and she improved. Her mental status recovers. This morning she is on 6 L of oxygen by nasal cannula. Fully alert and awake and communicating and tolerating diet. She did encounter a severe COPD exacerbation with an acute on top of chronic hypoxic and hypercapnic respiratory failure and for that reason she got moved to the intensive care unit where she was treated with a combination of bronchodilators and steroids. An arterial line was also started yesterday. This morning, she has no specific complaints. No chest pain. No angina. No palpitations. The blood work from today. Shows a WBC count 26, hemoglobin of 12.1 and a platelet count of 247. The sodium is at 133, potassium of 4.2, carotids 88 with a bicarb of 36. BUN is at 40 with a creatinine of 1.04. A repeat chest x-ray was done today and findings of essentially stable without any airspace disease or consolidation. No evidence of any pneumonia at this point in time. She is hemodynamically stable. She has not required any pressors. No was on a minimal dose of norepinephrine overnight and currently she is off pressors. The patient was also diabetes overnight with IV Lasix and the patient is a negative fluid balance of 2.1 L and the patient is going to be switched to oral Lasix. On today's evaluation of 04/21/2023, the patient is doing much better. Respiratory status is stable. She is currently on oxygen at 8 L nasal cannula. Her baseline oxygen requirement is around 5 L. Her current pulse ox is 91%. The patient has no significant respiratory distress at rest. No chest pain. Cardiac rhythm is sinus. On today's blood work, she has a white cell count of 25 which is essentially compatible to yesterday. The patient is a hemoglobin 11.8, platelet count of 246. Sodium level is at 134, potassium 4.5, BUN is 51 with a creatinine of 0.7. The chest x-ray from today is showing mild pulmonary vessel congestion and cardiomegaly. As stated earlier, the patient has a component of aortic stenosis which is moderate to severe with a valvular area of 0.9 cm. It encounter some hypotension earlier. She was also placed on pressors. Currently she is normotensive. She is receiving Lasix 40 mg by mouth daily. Antibiotic coverage is still with a combination of Rocephin and Zithromax. The patient is also on IV heparin. The patient is on IV Solu-Med rol. No signs of any CO2 narcosis. She is tolerating her diet. On 04/22/2023, the patient is outside anticoagulated and the patient's coagulation floor. He woke a spastic and wheezing. Nevertheless, she is off the BiPAP and she is currently on oxygen. She is on 7 L of oxygen by nasal cannula with a pulse ox of 94%. She remains on bronchodilators. She remains on antibiotics. She remains on steroids. She has 7 and the patient troponin and the patient is being considered for cardiac catheterization. She is to have any chest pain. No signs of any CO2 narcosis and this point in time. Alert and awake and communicating. On today's evaluation of 04/23/2020, the patient is clinically stable. No new complaints. No signs of any CO2 narcosis. She has coronary myopathy. No signs of any fluid overload. The patient is still being considered for another cardiac catheterization. She does not have any significant chest pain. She was treated with DuoNeb updrafts, Pulmicort Respules, Perforomist updrafts, and she is also on IV Solu-Medrol 60 mg every 6 hours. No new labs are available from today. Her condition is stable and she remains on oxygen at 7 L with a pulse ox of 97%. Objective - Vital Signs Vital signs: Vital Signs Temp 98.1 F 04/23/23 09:00 Pulse 106 H 04/23/23 09:00 Resp 17 04/23/23 09:00 BP 123/73 04/23/23 09:00 Pulse Ox 95 04/23/23 09:00 FiO2 50 04/21/23 09:00 Intake & Output 04/22/23 04/23/23 04/23/23 18:59 06:59 18:59 Intake Total 236 118 Output Total 800 Balance 236 -682 Intake: Oral 236 118 Output: Urine 800 Other: Voiding Method Bedside Commode Bedside Commode # Voids 3 ABP, PAP, CO, CI - Last Documented Arterial Blood Pressure 107/54 - Exam GENERAL EXAM: Alert, 62-year-old obese white female, the patient is awake and alert and communicating. No apparent distress to distress, the patient is currently on 8 L of O2 nasal cannula HEAD: Normocephalic and atraumatic EYES: Normal reaction of pupils, equal size. NOSE: Clear with pink turbinates. THROAT: No erythema or exudates. NECK: No masses, no JVD. CHEST: No chest wall deformity. LUNGS: Equal air entry with expiratory wheezes heard throughout, and there is improved breath sounds bilaterally compared to yesterday CVS: S1 and S2 normal with no audible murmur, regular rhythm. No extra heart sounds. ABDOMEN:Obese abdomen, no hepatosplenomegaly, active bowel sounds, no guarding or rigidity. SPINE: No scoliosis or deformity SKIN: No rashes CENTRAL NERVOUS SYSTEM: No focal deficits, tone is normal in all 4 extremities. EXTREMITIES: There is no peripheral edema, clubbing, or cyanosis. Peripheral pulses are intact. - Labs CBC & Chem 7: 04/22/23 03:43 04/22/23 03:43 Labs: Abnormal Lab Results - Last 24 Hours (Table) 04/22/23 04/22/23 04/22/23 Range/Units 11:27 16:16 20:14 POC Glucose (mg/dL) 158 H 162 H 232 H (70-110) mg/dL 04/23/23 Range/Units 06:18 POC Glucose (mg/dL) 209 H (70-110) mg/dL Assessment and Plan Plan: Acute on chronic hypoxic and hypercapnic respiratory failure related to COPD exacerbation, currently on a BiPAP. The blood gases showing hypercapnic re spiratory failure with ongoing respiratory acidosis. The patient is a DNR/DNI CODE STATUS. She has declined intubation the past. He was supported with BiPAP throughout the night and the patient is currently on 7 L of oxygen by nasal cannula and the BiPAP was discontinued. A repeat chest x-ray from today shows cardiomegaly along with some mild pulmonary vascular congestion The patient level of consciousness, likely secondary to CO2 narcosis, improved and the patient is awake and alert 3 Advanced COPD with an FEV1 of less than 30% of predicted Chronic hypoxic respiratory failure maternal O2 at 5 L per minute nasal cannula Troponin leak due to type II ischemia, currently on IV heparin, troponin peaked at for 7. Consider an underlying non-ST segment elevation myocardial infarction. Known history of coronary artery disease Chronic lower back pain Moderate to severe aortic stenosis with a peak gradient of 69 and a mean gradient of 46 and the estimated valve area of 0.9 Systolic heart failure with an ejection fraction of 45% Secondary pulmonary hypertension Ascending thoracic aortic aneurysm measuring 4.9 x 5 cm in size Plan Condition continues to improve, currently on 7 L of oxygen by nasal cannula. The based on oxygen requirements at 5 L. Patient is currently off IV heparin. Patient will be kept on a BiPAP and depression with a modified stool 14/5 and FiO2 was brought up to 50% and this will be used overnight only and the patient can go on nasal cannula at and L note that her baseline oxygen requirements is at [address] angiogram of the chest was noted and there is no evidence of pneumonia or pulmonary embolism The patient will be given DuoNeb nebulized treatments [id number]. Perforomist and Pulmicort will be also added Was stopped IV Solu-Medrol and start the patient a prednisone burst taper Continue Lasix 40 mg of by mouth Lasix She is a DNR/DNI CODE STATUS. Lovenox 40 mg subcu for DVT prophylaxis Patient is being considered for cardiac catheterization. We'll continue to follow The patient will be transferred to a medical surgical floor with telemetry.
--- NOTE | 2023-04-23 14:15 | P.PN ---
Subjective Progress Note Date: 04/23/23 Patient is a 62-year-old white female with past medical history significant for severe COPD with an FEV1 30% of predicted, chronic oxygen dependence on 5 L home O2, coronary artery disease, aortic valve stenosis, and chronic lower back pain who presented to the ER because of worsening shortness of breath. Patient stated that she was all right last night when she started complaining of worsening shortness of breath. Shortness of breath was present at rest. There was no complain of orthopnea or PND. No coughing of fever or chills. Patient was complaining of chest pain. Denies any cough. Because his worsening shortness of breath, EMS was called when EMS arrived, patient found to be tachycardic and tachypneic, patient was placed on nonrebreather and was transferred to the ER Initial lab work done in the ER showed WBC 26.7, hemoglobin 13.6, platelet count 237, sodium 134, potassium 4.9, chloride 89, BUN 18, creatinine 0.46 troponin 0.114 Influenza A not detected Influenza B not detected RSV not detected COVID-19 not detected EKG done in the ER showed heart rate of 119 , no ST segment elevation or depression seen, no T-wave inversions seen. Chest x-ray done in the ER showed cardiomegaly and mild pulmonary vascular congestion. Patient admitted to internal medicine service 04/20. Patient seen and examined. Blood work done this morning showed WBC 26.8 , hemoglobin 12.1, platelet count 247 sodium 133, potassium 4.2 BUN 40, creatinine 1.04. Patient currently off the BiPAP, on 6 L of oxygen. Sitting upright in the bed able to maintain a conversation. States breathing has improved. Denies any chest pain 04/21. Patient seen and examined. WBC 25.8, hemoglobin 11.8, sodium 134, potassium 4.5, BUN 51, creatinine 0.78. Currently on high flow nasal cannula at 10 L. patient is sitting upright in the bed, denies any shortness of breath at rest but gets short of breath on exertion. 04/22. Patient seen and examined. States breathing has improved. Still gets short of breath on exertion. Cardiology planning cardiac cath, most likely on Monday. 04/23. Patient seen and examined. Complaining of cough. Bringing up phlegm. Denies shortness of breath at rest but gets short of breath on exertion. Currently on 7 L of oxygen REVIEW OF SYSTEMS: CONSTITUTIONAL: No fever, no malaise,. CARDIOVASCULAR: No chest pain, no palpitations, no syncope. PULMONARY: As mentioned above GASTROINTESTINAL: No diarrhea, no nausea, no vomiting, no abdominal pain. NEUROLOGICAL: No headaches, no weakness, PHYSICAL EXAMINATION: GENERAL: The patient is alert and oriented x3, not in any acute distress. Well developed, well nourished. HEENT: Pupils are round and equally reacting to light. EOMI. No scleral icterus. No conjunctival pallor. Normocephalic, atraumatic. No pharyngeal erythema. No thyromegaly. CARDIOVASCULAR: S1 and S2 present. ejection systolic murmur audible PULMONARY: Coarse breath some bilaterally, expiratory wheeze audible ABDOMEN: Soft, nontender, nondistended, normoactive bowel sounds. No palpable organomegaly. MUSCULOSKELETAL: No joint swelling or deformity. EXTREMITIES: No cyanosis, clubbing, or pedal edema. NEUROLOGICAL: Gross neurological examination did not reveal any focal deficits. SKIN: No rashes. Assessment and plan Acute COPD exacerbation Acute on chronic hypoxemic and hypercapnic respiratory failure, secondary to above Acute metabolic encephalopathy Elevated troponins Systolic heart failure with an ejection fraction of 45% Secondary pulmonary hypertension Ascending thoracic aortic aneurysm measuring 4.9 x 5 cm in size History of Coronary artery disease History of aortic valve stenosis Chronic lower back pain History of anxiety and depression Ex-smoker Monitor vital signs Monitor CBC Monitor CMP Continue telemetry monitoring Continue breathing treatments Trend troponins Changed IV Solu-Medrol to prednisone 40 mg daily Continue IV Rocephin Cardiology following, discuss with interventional cardiology regarding cardiac cath and aortic valve replacement. Cardiology planning cardiac cath on Monday Pulmonary following In regards to hypertension, continue lisinopril and Lopressor Regards to hyperlipidemia continue Lipitor Labs and medication were reviewed.. Continue same treatment. Continue with symptomatic treatment. Resume home medication. Monitor labs and vitals. DVT and GI prophylaxis. Further recommendations as per clinical course of the patient Dictation was produced using [employer] dictation software. please excuse any grammatical, word or spelling errors. Objective - Vital Signs Vital signs: Vital Signs Temp 98.1 F 04/23/23 09:00 Pulse 76 04/23/23 12:05 Resp 17 04/23/23 12:05 BP 120/63 04/23/23 12:05 Pulse Ox 95 04/23/23 12:05 FiO2 50 04/21/23 09:00 Intake & Output 04/22/23 04/23/23 04/23/23 18:59 06:59 18:59 Intake Total 236 118 118 Output Total 800 Balance 236 -682 118 Intake: Oral 236 118 118 Output: Urine 800 Other: Voiding Method Bedside Commode Bedside Commode Bedside Commode # Voids 3 5 ABP, PAP, CO, CI - Last Documented Arterial Blood Pressure 107/54 - Labs CBC & Chem 7: 04/22/23 03:43 04/22/23 03:43 Labs: Abnormal Lab Results - Last 24 Hours (Table) 04/22/23 04/22/23 04/23/23 Range/Units 16:16 20:14 06:18 POC Glucose (mg/dL) 162 H 232 H 209 H (70-110) mg/dL Magnesium (1.6-2.3) mg/dL 04/23/23 04/23/23 Range/Units 09:16 11:46 POC Glucose (mg/dL) 213 H (70-110) mg/dL Magnesium 2.8 H (1.6-2.3) mg/dL
[2023-04-23] MEDS: predniSONE 20 MG TAB PO SCH (15:06)
[2023-04-23 16:23] LABS: Glucose,Whole Blood 151 mg/dL (70-110)
--- NOTE | 2023-04-23 18:18 | P.PN ---
Subjective Progress Note Date: 04/23/23 Progress note Patient is doing well from cardiac vessel standpoint. No acute events overnight. Denies having any further chest pain. Appears hemodynamic stable HISTORY OF PRESENTING ILLNESS Pleasant 62-year-old female with history of severe COPD, aortic stenosis who presented secondary to shortness breath and was hypoxic with pulse ox in the 70s requiring BiPAP. She did have non-STEMI and additionally has severe aortic stenosis. She denies any chest pain or pressure. Prior echo from 11/22/2022 showed severe aortic stenosis with a maximum velocity 4.2 m/s. Creatinine stable 0.8, BUN 50. Troponin 1.4 on admission. She is currently on 7 L oxygen PHYSICAL EXAMINATION Vital signs reviewed. CONSTITUTIONAL: No apparent distress, obese, chronically ill-appearing, no increased work of breathing HEENT: Head is normocephalic. Pupils are equal, round. Sclerae anicteric. Mucous membranes of the mouth are moist. No JVD. No carotid bruit. CHEST EXAMINATION: Decreased air movement, mild wheeze HEART EXAMINATION: Regular rate and rhythm. S1 heard. Soft S2, +3/6 systolic murmur, no gallops or rub. ABDOMEN: Soft, nontender. Positive bowel sounds. EXTREMITIES: 2+ peripheral pulses, no lower extremity edema and no calf tenderness. NEUROLOGIC EXAMINATION: Patient is awake, alert and oriented x3. ASSESSMENT 1. Non-STEMI, may be related to hypoxia of her multiple risk factors 2. Severe aortic stenosis 3. Diabetes mellitus type 2 4. Severe COPD on 5 L home O2 5. Hypertension 6. Hyperlipidemia PLAN We had previously discussed heart catheterization however patient apparently was not expecting this today. Discussed risks and benefits. Although much of her symptoms related to COPD significant elevation of troponins and prior echo showing mild decrease EF 45%. Recent benefits explained and patient agreeable. Pending on coronary anatomy may consider TAVR workup in the future. Possible heart catheterization on Monday Reduce lisinopril to 20 mg due to low resting blood pressure extend continue aspirin, atorvastatin, metoprolol Objective - Vital Signs Vital signs: Vital Signs Temp 98.3 F 04/23/23 15:07 Pulse 80 04/23/23 15:39 Resp 17 04/23/23 15:07 BP 103/69 04/23/23 15:07 Pulse Ox 95 04/23/23 15:07 FiO2 50 04/21/23 09:00 Intake & Output 04/22/23 04/23/23 04/23/23 18:59 06:59 18:59 Intake Total 236 118 118 Output Total 800 Balance 236 -682 118 Intake: Oral 236 118 118 Output: Urine 800 Other: Voiding Method Bedside Commode Bedside Commode Bedside Commode # Voids 3 5 ABP, PAP, CO, CI - Last Documented Arterial Blood Pressure 107/54 - Labs CBC & Chem 7: 04/22/23 03:43 04/22/23 03:43 Labs: Abnormal Lab Results - Last 24 Hours (Table) 04/22/23 04/23/23 04/23/23 Range/Units 20:14 06:18 09:16 POC Glucose (mg/dL) 232 H 209 H (70-110) mg/dL Magnesium 2.8 H (1.6-2.3) mg/dL 04/23/23 04/23/23 Range/Units 11:46 16:22 POC Glucose (mg/dL) 213 H 151 H (70-110) mg/dL Magnesium (1.6-2.3) mg/dL
[2023-04-23 20:29] LABS: Glucose,Whole Blood 272 mg/dL (70-110)
[2023-04-23] MEDS: INSULIN DETEMIR (LEVEMIR) 100 UNIT/ML SYR SQ SCH (20:36)
[2023-04-23] MEDS: ATORVASTATIN 40 MG TAB PO SCH (20:36)
[2023-04-24 05:56] LABS: Glucose,Whole Blood 116 mg/dL (70-110)
[2023-04-24] MEDS: INSULIN ASPART (NovoLOG) 100 UNIT/ML VIAL SQ SCH ×4 (06:02→20:55)
[2023-04-24] MEDS: FORMOTEROL FUMARATE 20 MCG/2 ML NEBU INHALATION SCH ×2 (07:46→21:59)
[2023-04-24] MEDS: BUDESONIDE 1 MG/2 ML NEBU INHALATION SCH ×2 (07:47→21:59)
[2023-04-24] MEDS: IPRATROPIUM-ALBUTEROL 3 ML NEB INHALATION SCH ×4 (07:47→21:59)
[2023-04-24] MEDS: SERTRALINE 100 MG TAB PO SCH (08:29)
[2023-04-24] MEDS: FUROSEMIDE 40 MG TAB PO SCH (08:29)
[2023-04-24] MEDS: ASPIRIN 81 MG PO SCH (08:29)
[2023-04-24] MEDS: METOPROLOL TARTRATE 25 MG TAB PO SCH (08:29)
[2023-04-24] MEDS: guaiFENesin 600 MG TABLET.ER PO SCH ×2 (08:29→20:55)
[2023-04-24] MEDS: lisinopriL 20 MG TAB PO SCH (08:29)
[2023-04-24] MEDS: ENOXAPARIN 40 MG/0.4 ML SYRINGE SQ SCH (08:29)
[2023-04-24] MEDS: predniSONE 20 MG TAB PO SCH (08:29)
[2023-04-24] MEDS: DAPAGLIFLOZIN PROPANEDIOL 5 MG TABLET PO SCH (08:37)
[2023-04-24 11:44] LABS: Glucose,Whole Blood 155 mg/dL (70-110)
--- NOTE | 2023-04-24 12:51 | P.PN ---
Subjective Progress Note Date: 04/24/23 Patient is a 62-year-old white female with past medical history significant for severe COPD with an FEV1 30% of predicted, chronic oxygen dependence on 5 L home O2, coronary artery disease, aortic valve stenosis, and chronic lower back pain who presented to the ER because of worsening shortness of breath. Patient stated that she was all right last night when she started complaining of worsening shortness of breath. Shortness of breath was present at rest. There was no complain of orthopnea or PND. No coughing of fever or chills. Patient was complaining of chest pain. Denies any cough. Because his worsening shortness of breath, EMS was called when EMS arrived, patient found to be tachycardic and tachypneic, patient was placed on nonrebreather and was transferred to the ER Initial lab work done in the ER showed WBC 26.7, hemoglobin 13.6, platelet count 237, sodium 134, potassium 4.9, chloride 89, BUN 18, creatinine 0.46 troponin 0.114 Influenza A not detected Influenza B not detected RSV not detected COVID-19 not detected EKG done in the ER showed heart rate of 119 , no ST segment elevation or depression seen, no T-wave inversions seen. Chest x-ray done in the ER showed cardiomegaly and mild pulmonary vascular congestion. Patient admitted to internal medicine service 04/20. Patient seen and examined. Blood work done this morning showed WBC 26.8 , hemoglobin 12.1, platelet count 247 sodium 133, potassium 4.2 BUN 40, creatinine 1.04. Patient currently off the BiPAP, on 6 L of oxygen. Sitting upright in the bed able to maintain a conversation. States breathing has improved. Denies any chest pain 04/21. Patient seen and examined. WBC 25.8, hemoglobin 11.8, sodium 134, potassium 4.5, BUN 51, creatinine 0.78. Currently on high flow nasal cannula at 10 L. patient is sitting upright in the bed, denies any shortness of breath at rest but gets short of breath on exertion. 04/22. Patient seen and examined. States breathing has improved. Still gets short of breath on exertion. Cardiology planning cardiac cath, most likely on Monday. 04/23. Patient seen and examined. Complaining of cough. Bringing up phlegm. Denies shortness of breath at rest but gets short of breath on exertion. Currently on 7 L of oxygen 04/24/23. Patient seen and examined. Continues to be on oxygen, currently on 6 L. Currently not in respiratory distress. Denies any shortness of breath at rest REVIEW OF SYSTEMS: CONSTITUTIONAL: No fever, no malaise,. CARDIOVASCULAR: No chest pain, no palpitations, no syncope. PULMONARY: As mentioned above GASTROINTESTINAL: No diarrhea, no nausea, no vomiting, no abdominal pain. NEUROLOGICAL: No headaches, no weakness, PHYSICAL EXAMINATION: GENERAL: The patient is alert and oriented x3, not in any acute distress. Well developed, well nourished. HEENT: Pupils are round and equally reacting to light. EOMI. No scleral icterus. No conjunctival pallor. Normocephalic, atraumatic. No pharyngeal erythema. No thyromegaly. CARDIOVASCULAR: S1 and S2 present. ejection systolic murmur audible PULMONARY: Coarse breath some bilaterally, no wheezing or crackles audible ABDOMEN: Soft, nontender, nondistended, normoactive bowel sounds. No palpable organomegaly. MUSCULOSKELETAL: No joint swelling or deformity. EXTREMITIES: No cyanosis, clubbing, or pedal edema. NEUROLOGICAL: Gross neurological examination did not reveal any focal deficits. SKIN: No rashes. Assessment and plan Acute COPD exacerbation Acute on chronic hypoxemic and hypercapnic respiratory failure, secondary to above Acute metabolic encephalopathy Elevated troponins Systolic heart failure with an ejection fraction of 45% Secondary pulmonary hypertension Ascending thoracic aortic aneurysm measuring 4.9 x 5 cm in size History of Coronary artery disease History of aortic valve stenosis Chronic lower back pain History of anxiety and depression Ex-smoker Monitor vital signs Monitor CBC Monitor CMP Continue telemetry monitoring Continue breathing treatments Trend troponins prednisone 40 mg daily Continue IV Rocephin Cardiology following, discuss with interventional cardiology regarding cardiac cath and aortic valve replacement. Cardiology planning cardiac cath on Monday Pulmonary following In regards to hypertension, continue lisinopril and Lopressor Regards to hyperlipidemia continue Lipitor Labs and medication were reviewed.. Continue same treatment. Continue with symptomatic treatment. Resume home medication. Monitor labs and vitals. DVT and GI prophylaxis. Further recommendations as per clinical course of the patient Dictation was produced using [employer] dictation software. please excuse any grammatical, word or spelling errors. Objective - Vital Signs Vital signs: Vital Signs Temp 98.0 F 04/24/23 08:44 Pulse 92 04/24/23 08:54 Resp 18 04/24/23 08:45 BP 148/93 04/24/23 08:44 Pulse Ox 99 04/24/23 08:44 FiO2 50 04/21/23 09:00 Intake & Output 04/23/23 04/24/23 04/24/23 18:59 06:59 18:59 Intake Total 118 240 120 Balance 118 240 120 Intake: Oral 118 240 120 Other: Voiding Method Bedside Commode Bedside Commode Bedside Commode # Voids 5 ABP, PAP, CO, CI - Last Documented Arterial Blood Pressure 107/54 - Labs CBC & Chem 7: 04/22/23 03:43 04/22/23 03:43 Labs: Abnormal Lab Results - Last 24 Hours (Table) 04/23/23 04/23/23 04/23/23 Range/Units 09:16 11:46 16:22 POC Glucose (mg/dL) 213 H 151 H (70-110) mg/dL Magnesium 2.8 H (1.6-2.3) mg/dL 04/23/23 04/24/23 Range/Units 20:28 05:54 POC Glucose (mg/dL) 272 H 116 H (70-110) mg/dL Magnesium (1.6-2.3) mg/dL
--- NOTE | 2023-04-24 13:35 | P.PN ---
Subjective Progress Note Date: 04/24/23 62-year-old female patient with known to have advanced auction dependent COPD with an FEV1 of less than 30% of predicted and chronic oxygen dependence at 5 L/m nasal cannula. The patient has had several hospitalization for COPD exacerbation last hospitalization being in December 2022. The patient came in to the emergency department having progressive worsening shortness of breath. She was having diminished level of consciousness that she was also getting more lethargic. Based on that, the patient was placed on a BiPAP pressure of 12/5 cm of water with FiO2 of 50%. The patient remains actively bronchospastic and wheezy. Unable to generate volumes of above 200 mL while being on a BiPAP. Kourtney athing is labored and she is having marked diminish breath sounds bilaterally and she is actively bronchospastic and wheezy. Arterial blood gas was done this morning and it showed a pH of 7.29 with a pCO2 of 78 and pO2 of 58. This was an FiO2 of 40% and accordingly, the FiO2 was raised up to 50%. The viral screen was negative for Covid 19, influenza and RSV. She did have a troponin leaks with troponins being 0.1 and 0.9 respectively. The white cell count is at 26 with a hemoglobin of 15.6 and a platelet count of 237. Sodium is at 134, potassium is at 4.9, bicarbonate of 36, BUN is at 80 with a creatinine of 0.4. Cardiomegaly with some mild pulmonary vessel congestion. CT antigram of the chest was done and shows no evidence of any pulmonary embolism. There is evidence of pulmonary hypertension and the patient had enlarged pulmonary trunk. There is moderate calcification of the aortic valve. A fusiform aneurysmal dilatation of the ascending aorta measuring 5 x 4.9 cm. Mild cardiomegaly. Right rib fractures. There is diffuse emphysematous changes bilaterally and a few subcentimeter pulmonary nodules. The patient is currently on Rocephin and Zithromax. The patient on IV Solu-Medrol. The patient on DuoNeb about treatments [id number]. On outpatient basis, the patient will maintain on Symbicort,yupelri nebulized treatments once a day and 5 mg of prednisone as a maintenance. On today's evaluation of 04/20/2023, the patient did significant progress since yesterday. She was kept on BiPAP throughout the night and she improved. Her mental status recovers. This morning she is on 6 L of oxygen by nasal cannula. Fully alert and awake and communicating and tolerating diet. She did encounter a severe COPD exacerbation with an acute on top of chronic hypoxic and hypercapnic respiratory failure and for that reason she got moved to the intensive care unit where she was treated with a combination of bronchodilators and steroids. An arterial line was also started yesterday. This morning, she has no specific complaints. No chest pain. No angina. No palpitations. The blood work from today. Shows a WBC count 26, hemoglobin of 12.1 and a platelet count of 247. The sodium is at 133, potassium of 4.2, carotids 88 with a bicarb of 36. BUN is at 40 with a creatinine of 1.04. A repeat chest x-ray was done today and findings of essentially stable without any airspace disease or consolidation. No evidence of any pneumonia at this point in time. She is hemodynamically stable. She has not required any pressors. No was on a minimal dose of norepinephrine overnight and currently she is off pressors. The patient was also diabetes overnight with IV Lasix and the patient is a negative fluid balance of 2.1 L and the patient is going to be switched to oral Lasix. On today's evaluation of 04/21/2023, the patient is doing much better. Respiratory status is stable. She is currently on oxygen at 8 L nasal cannula. Her baseline oxygen requirement is around 5 L. Her current pulse ox is 91%. The patient has no significant respiratory distress at rest. No chest pain. Cardiac rhythm is sinus. On today's blood work, she has a white cell count of 25 which is essentially compatible to yesterday. The patient is a hemoglobin 11.8, platelet count of 246. Sodium level is at 134, potassium 4.5, BUN is 51 with a creatinine of 0.7. The chest x-ray from today is showing mild pulmonary vessel congestion and cardiomegaly. As stated earlier, the patient has a component of aortic stenosis which is moderate to severe with a valvular area of 0.9 cm. It encounter some hypotension earlier. She was also placed on pressors. Currently she is normotensive. She is receiving Lasix 40 mg by mouth daily. Antibiotic coverage is still with a combination of Rocephin and Zithromax. The patient is also on IV heparin. The patient is on IV Solu-Med rol. No signs of any CO2 narcosis. She is tolerating her diet. On 04/22/2023, the patient is outside anticoagulated and the patient's coagulation floor. He woke a spastic and wheezing. Nevertheless, she is off the BiPAP and she is currently on oxygen. She is on 7 L of oxygen by nasal cannula with a pulse ox of 94%. She remains on bronchodilators. She remains on antibiotics. She remains on steroids. She has 7 and the patient troponin and the patient is being considered for cardiac catheterization. She is to have any chest pain. No signs of any CO2 narcosis and this point in time. Alert and awake and communicating. On today's evaluation of 04/23/2020, the patient is clinically stable. No new complaints. No signs of any CO2 narcosis. She has coronary myopathy. No signs of any fluid overload. The patient is still being considered for another cardiac catheterization. She does not have any significant chest pain. She was treated with DuoNeb updrafts, Pulmicort Respules, Perforomist updrafts, and she is also on IV Solu-Medrol 60 mg every 6 hours. No new labs are available from today. Her condition is stable and she remains on oxygen at 7 L with a pulse ox of 97%. On 04/24/2023, the patient is resting comfortably. She's able to sit up on a chair also. No new complaints. Episodes of cough. Still requiring high oxygen flow at 6 L nasal cannula. No chest pain. Note that during this current hospitalization, the patient sustained an acute non-ST segment elevation myocardial infarction and troponin was elevated and peaked at 1.4. Based on that, the patient is still being considered for cardiac catheterization. Not utilizing the BiPAP for now. Remains on bronchodilators. Started on prednisone burst taper as of yesterday. Remains on IV Rocephin. Rest of the medications are unchanged and the patient remains on Lasix 40 mg by mouth once a day. No si gns of any significant fluid overload at this point. Objective - Vital Signs Vital signs: Vital Signs Temp 98.0 F 04/24/23 08:44 Pulse 88 04/24/23 11:56 Resp 18 04/24/23 11:13 BP 102/64 04/24/23 11:13 Pulse Ox 94 L 04/24/23 11:13 FiO2 50 04/21/23 09:00 Intake & Output 04/23/23 04/24/23 04/24/23 18:59 06:59 18:59 Intake Total 118 240 120 Balance 118 240 120 Intake: Oral 118 240 120 Other: Voiding Method Bedside Commode Bedside Commode Bedside Commode # Voids 5 ABP, PAP, CO, CI - Last Documented Arterial Blood Pressure 107/54 - Exam GENERAL EXAM: Alert, 62-year-old obese white female, the patient is awake and alert and communicating. No apparent distress to distress, the patient is currently on 8 L of O2 nasal cannula HEAD: Normocephalic and atraumatic EYES: Normal reaction of pupils, equal size. NOSE: Clear with pink turbinates. THROAT: No erythema or exudates. NECK: No masses, no JVD. CHEST: No chest wall deformity. LUNGS: Equal air entry with expiratory wheezes heard throughout, and there is improved breath sounds bilaterally compared to yesterday CVS: S1 and S2 normal with no audible murmur, regular rhythm. No extra heart sounds. ABDOMEN:Obese abdomen, no hepatosplenomegaly, active bowel sounds, no guarding or rigidity. SPINE: No scoliosis or deformity SKIN: No rashes CENTRAL NERVOUS SYSTEM: No focal deficits, tone is normal in all 4 extremities. EXTREMITIES: There is no peripheral edema, clubbing, or cyanosis. Peripheral pulses are intact. - Labs CBC & Chem 7: 04/22/23 03:43 04/22/23 03:43 Labs: Abnormal Lab Results - Last 24 Hours (Table) 04/23/23 04/23/23 04/24/23 Range/Units 16:22 20:28 05:54 POC Glucose (mg/dL) 151 H 272 H 116 H (70-110) mg/dL 04/24/23 Range/Units 11:44 POC Glucose (mg/dL) 155 H (70-110) mg/dL Assessment and Plan Plan: Acute on chronic hypoxic and hypercapnic respiratory failure related to COPD exacerbation, currently on a BiPAP. The blood gases showing hypercapnic respiratory failure with ongoing respiratory acidosis. The patient is a DNR/DNI CODE STATUS. She has declined intubation the past. He was supported with BiPAP throughout the night and the patient is currently on 6 L of oxygen by nasal cannula and the BiPAP was discontinued. A repeat chest x-ray from today shows cardiomegaly along with some mild pulmonary vascular congestion, clinically improving The patient level of consciousness, likely secondary to CO2 narcosis, improved and the patient is awake and alert 3 Advanced COPD with an FEV1 of less than 30% of predicted Chronic hypoxic respiratory failure maternal O2 at 5 L per minute nasal cannula Troponin leak due to type II ischemia, currently on IV heparin, troponin peaked at for 7. Consider an underlying non-ST segment elevation myocardial infarction. Known history of coronary artery disease Chronic lower back pain Moderate to severe aortic stenosis with a peak gradient of 69 and a mean gradient of 46 and the estimated valve area of 0.9 Systolic heart failure with an ejection fraction of 45% Secondary pulmonary hypertension Ascending thoracic aortic aneurysm measuring 4.9 x 5 cm in size Plan Condition continues to improve, currently on 6 L of oxygen by nasal cannula. The based on oxygen requirements at 5 L. IV heparin has been discontinued Patient will be kept on a BiPAP and depression with a modified stool 14/5 and FiO2 was brought up to 50% and this will be used overnight only and the patient can go on nasal cannula at and L note that her baseline oxygen requirements is at [address]ogram of the chest was noted and there is no evidence of pneumonia or pulmonary embolism The patient will be given DuoNeb nebulized treatments [id number]. Perforomist and Pulmicort will be also added Continue prednisone burst taper Continue Lasix 40 mg of by mouth Lasix She is a DNR/DNI CODE STATUS. Lovenox 40 mg subcu for DVT prophylaxis Patient is being considered for cardiac catheterization. We'll continue to follow The patient is currently in a medical surgical floor with telemetry.
--- NOTE | 2023-04-24 14:14 | P.PN ---
Subjective Progress Note Date: 04/24/23 Progress note Patient is doing well from cardiac vessel standpoint. No acute events overnight. Denies having any further chest pain. Appears hemodynamic stable BP 102/68, heart rate 88 bpm Telemetry shows sinus rhythm HISTORY OF PRESENTING ILLNESS Pleasant 62-year-old female with history of severe COPD, aortic stenosis who presented secondary to shortness breath and was hypoxic with pulse ox in the 70s requiring BiPAP. She did have non-STEMI and additionally has severe aortic stenosis. She denies any chest pain or pressure. Prior echo from 11/22/2022 showed severe aortic stenosis with a maximum velocity 4.2 m/s. Creatinine stable 0.8, BUN 50. Troponin 1.4 on admission. She is currently on 7 L oxygen PHYSICAL EXAMINATION Vital signs reviewed. CONSTITUTIONAL: No apparent distress, obese, chronically ill-appearing, no increased work of breathing HEENT: Head is normocephalic. Pupils are equal, round. Sclerae anicteric. Mucous membranes of the mouth are moist. No JVD. No carotid bruit. CHEST EXAMINATION: Decreased air movement, mild wheeze HEART EXAMINATION: Regular rate and rhythm. S1 heard. Soft S2, +3/6 systolic murmur, no gallops or rub. ABDOMEN: Soft, nontender. Positive bowel sounds. EXTREMITIES: 2+ peripheral pulses, no lower extremity edema and no calf tenderness. NEUROLOGIC EXAMINATION: Patient is awake, alert and oriented x3. ASSESSMENT 1. Non-STEMI, may be related to hypoxia of her multiple risk factors 2. Severe aortic stenosis 3. Diabetes mellitus type 2 4. Severe COPD on 5 L home O2 5. Hypertension 6. Hyperlipidemia PLAN We had previously discussed heart catheterization however patient apparently was not expecting this today. Discussed risks and benefits. Although much of her symptoms related to COPD significant elevation of troponins and prior echo showing mild decrease EF 45%. Recent benefits explained and patient agreeable. Pending on coronary anatomy may consider TAVR workup in the future. Possible heart catheterization on Monday with Dr Hinkle. Reduce lisinopril to 20 mg due to low resting blood pressure extend continue as pirin, atorvastatin, metoprolol Objective - Vital Signs Vital signs: Vital Signs Temp 98.0 F 04/24/23 08:44 Pulse 88 04/24/23 11:56 Resp 18 04/24/23 11:13 BP 102/64 04/24/23 11:13 Pulse Ox 94 L 04/24/23 11:13 FiO2 50 04/21/23 09:00 Intake & Output 04/23/23 04/24/23 04/24/23 18:59 06:59 18:59 Intake Total 118 240 120 Balance 118 240 120 Intake: Oral 118 240 120 Other: Voiding Method Bedside Commode Bedside Commode Bedside Commode # Voids 5 2 ABP, PAP, CO, CI - Last Documented Arterial Blood Pressure 107/54 - Labs CBC & Chem 7: 04/22/23 03:43 04/22/23 03:43 Labs: Abnormal Lab Results - Last 24 Hours (Table) 04/23/23 04/23/23 04/24/23 Range/Units 16:22 20:28 05:54 POC Glucose (mg/dL) 151 H 272 H 116 H (70-110) mg/dL 04/24/23 Range/Units 11:44 POC Glucose (mg/dL) 155 H (70-110) mg/dL
[2023-04-24 15:44] LABS: Basophils % (A) 0 %; Eosinophils # (A) 0.1 k/uL (0-0.7); Eosinophils % (A) 1 %; HCT 39.8 % (34.0-46.0); HGB 12.4 gm/dL (11.4-16.0); Hypochromasia Marked; Lymphocytes # (A) 0.5 k/uL (1.0-4.8); Lymphocytes % (A) 3 %; MCH 30.3 pg (25.0-35.0); MCHC 31.1 g/dL (31.0-37.0); MCV 97.4 fL (80.0-100.0); Mean Platelet Volume 7.3; Monocytes # (A) 0.6 k/uL (0-1.0); Monocytes % (A) 4 %; Neutrophils # (A) 13.1 k/uL (1.3-7.7); Neutrophils % (A) 91 %; Platelet Count 239 k/uL (150-450); RBC 4.09 m/uL (3.80-5.40); RDW 13.3 % (11.5-15.5); WBC 14.4 k/uL (3.8-10.6)
[2023-04-24 15:53] LABS: INR 0.9 (<1.2); Prothrombin Time 10.3 sec (10.0-12.5)
[2023-04-24 15:59] LABS: African American GFR (CKD) >90 (>60 ml/min/1.73 sqM); Blood Urea Nitrogen 40 mg/dL (7-17); Calcium 8.8 mg/dL (8.4-10.2); Chloride 87 mmol/L (98-107); Glucose 128 mg/dL (74-99); Non-African American GFR(CKD) 89 (>60 ml/min/1.73 sqM); Potassium 3.7 mmol/L (3.5-5.1); Sodium 139 mmol/L (137-145)
[2023-04-24 16:05] LABS: Anion Gap 8 mmol/L
[2023-04-24 16:18] LABS: Carbon Dioxide 44 mmol/L (22-30)
[2023-04-24 16:39] LABS: Glucose,Whole Blood 185 mg/dL (70-110)
[2023-04-24 20:01] LABS: Glucose,Whole Blood 183 mg/dL (70-110)
[2023-04-24] MEDS: ATORVASTATIN 40 MG TAB PO SCH (20:55)
[2023-04-24] MEDS: INSULIN DETEMIR (LEVEMIR) 100 UNIT/ML SYR SQ SCH (21:19)
[2023-04-24] MEDS: ALPRAZolam 0.25 MG TAB PO PRN (21:19)
[2023-04-25] MEDS ORDERED: SODIUM CHLORIDE 0.9% 1,000 ML in EMPTY BAG 1 BAG IV SCH ×2 (05:00→13:00)
[2023-04-25] MEDS: METOPROLOL TARTRATE 25 MG TAB PO SCH (05:23)
[2023-04-25] MEDS: ALPRAZolam 0.25 MG TAB PO PRN (05:23)
[2023-04-25] MEDS: SERTRALINE 100 MG TAB PO SCH (05:23)
[2023-04-25] MEDS: predniSONE 20 MG TAB PO SCH (05:23)
[2023-04-25] MEDS: ASPIRIN 81 MG PO SCH ×2 (05:23→05:24)
[2023-04-25] MEDS: FUROSEMIDE 40 MG TAB PO SCH (05:24)
[2023-04-25] MEDS: lisinopriL 20 MG TAB PO SCH (05:24)
[2023-04-25] MEDS: ENOXAPARIN 40 MG/0.4 ML SYRINGE SQ SCH (05:24)
[2023-04-25] MEDS: guaiFENesin 600 MG TABLET.ER PO SCH ×2 (05:25→22:16)
[2023-04-25 06:01] LABS: Glucose,Whole Blood 85 mg/dL (70-110)
[2023-04-25] MEDS: DAPAGLIFLOZIN PROPANEDIOL 5 MG TABLET PO SCH (06:20)
[2023-04-25] MEDS: INSULIN ASPART (NovoLOG) 100 UNIT/ML VIAL SQ SCH ×4 (06:21→22:16)
[2023-04-25] MEDS ORDERED: HEPARIN SODIUM,PORCINE (1 ML) 2,500 UNIT in SODIUM CHLORIDE 0.9% 250 ML IRRIGATION PRN (07:00)
[2023-04-25] MEDS ORDERED: HEPARIN SODIUM,PORCINE 10,000 UNIT in SODIUM CHLORIDE 0.9% 1,000 ML IRRIGATION PRN (07:00)
[2023-04-25] MEDS: ASPIRIN 325 MG TAB PO SCH (08:34)
[2023-04-25] MEDS: FORMOTEROL FUMARATE 20 MCG/2 ML NEBU INHALATION SCH ×2 (08:44→21:02)
[2023-04-25] MEDS: BUDESONIDE 1 MG/2 ML NEBU INHALATION SCH ×2 (08:44→21:02)
[2023-04-25] MEDS: IPRATROPIUM-ALBUTEROL 3 ML NEB INHALATION SCH ×4 (08:44→21:02)
[2023-04-25] MEDS ORDERED: fentaNYL (PF) 50 MCG/ML 2 ML AMP ONE (08:54)
[2023-04-25] MEDS ORDERED: HEPARIN SODIUM 1,000 UN/ML (10ML VL) ONE (08:54)
[2023-04-25] MEDS ORDERED: IV FLUID CONTINUATION 1,000 ML IV ONE (09:01)
[2023-04-25] MEDS ORDERED: fentaNYL (PF) 50 MCG/ML 2 ML AMP IVP ONE (09:01)
[2023-04-25] MEDS ORDERED: MIDAZOLAM 2 MG/2 ML VIAL IVP ONE (09:01)
[2023-04-25] MEDS ORDERED: LIDOCAINE 1% INJ 10MG/ML (20 ML MDV) SQ ONE (09:09)
[2023-04-25] MEDS ORDERED: VERAPAMIL SYRINGE (5 MG/10 ML) INTRAARTER ONE (09:10)
[2023-04-25] MEDS: HEPARIN SODIUM 1,000 UN/ML (10ML VL) IV ONE ×3 (09:12→09:45)
[2023-04-25] MEDS: NITROGLYCERIN 1000MCG/10ML SYRINGE INTRACORON ONE ×2 (09:13→09:28)
[2023-04-25] MEDS ORDERED: CLOPIDOGREL 75 MG TAB ONE (09:27)
[2023-04-25] MEDS ORDERED: CLOPIDOGREL 75 MG TAB PO ONE (09:30)
[2023-04-25] MEDS ORDERED: IOPAMIDOL-370 100ML BTL INJ ONE ×2 (09:32→09:45)
[2023-04-25 11:51] LABS: Glucose,Whole Blood 137 mg/dL (70-110)
[2023-04-25] MEDS ORDERED: NITROGLYCERIN SL TABS 0.4 MG TAB SUBLINGUAL PRN (12:56)
[2023-04-25] MEDS ORDERED: MAG HYDROX/AL HYDROX/SIMETH 30 ML CUP PO PRN (12:56)
[2023-04-25] MEDS ORDERED: ZOLPIDEM 5 MG TAB PO PRN (12:56)
[2023-04-25] MEDS ORDERED: RX INFO: IV CONTRAST WAS GIVEN 1 EACH MISC MISCELLANE PRN (12:56)
--- NOTE | 2023-04-25 12:56 | P.PRCINT ---
Percutaneous Coronary Int. - Percutaneous Coronary Intervention Percutaneous Coronary Intervention: PROCEDURES PERFORMED: Bilateral coronary angiography, ultrasound guided arterial access, IVUS RCA, PCI proximal RCA with a 5.0 x 12mm Xience ENMA INDICATION: Non-STEMI CONSENT:I have discussed the risks, benefits and alternative therapies for the above-mentioned procedure and for both sedation/analgesia as well as necessary blood product administration, if indicated, as they pertain to this patient. The patient has indicated understanding and acceptance of the risks and procedures discussed. PROCEDURE: After the risks, benefits and alternatives of the above mentioned procedure explained in detail with the patient, informed consent was obtained. Patient was taken to the catheterization lab and prepped and draped in usual fashion. Ultrasound guidance was used to assess for arterial access. 1% lidocaine was used to anesthetize the right radial artery. A 6-[place] sheath was placed in the right radial artery using modified Seldinger technique and ultrasound guidance. Left coronary angiography was performed with a 5-[place] JL 3.5 catheter and right coronary angiography was performed with a 5-[place] AR2 catheter in various views. There was consideration of possible spasm of the RCA from catheter and 200 g of nitroglycerin 2 was given without any significant change. Patient has severe aortic stenosis and no attempts were made at crossing the valve. The decision was made to perform PCI of the RCA. A 6-[place] FR4 was used to engage RCA. Heparin was given for ACT greater than 250. A 0.014 BMW wire was advanced in the distal RCA. Predilation was performed with a 3.5 x 8 mm balloon. Intravascular ultrasound was performed which showed reference vessel 5.0 mm. A 5.0 x 12 mm Xience ENMA was deployed in the proximal RCA. Final angiograms were performed. Preintervention there was 95% stenosis and JOSE-3 flow and post intervention there was 0% stenosis and JOSE-3 flow. The right radial sheath was removed and a TR band was placed with hemostasis achieved. The patient tolerated the procedure well. Patient was transported back to the post catheterization holding area in stable condition. Conscious Sedation: Patient was monitored under the direct supervision of myself for conscious sedation using Versed and fentanyl for a total duration of 29 minutes HEMODYNAMICS: Aorta: 134/71 SELECTIVE CORONARY ARTERIOGRAPHY: LEFT MAIN: The left main is a large caliber vessel which bifurcates into the LAD and circumflex. There is no significant stenosis. LEFT ANTERIOR DESCENDING CORONARY ARTERY: LAD is a large caliber vessel which wraps around to the apex. There is a mid LAD 40% stenosis and otherwise mild luminal irregularities. LEFT CIRCUMFLEX CORONARY ARTERY: Left circumflex is a moderate caliber vessel with mild luminal irregularities. RIGHT CORONARY ARTERY: The right coronary artery is a large caliber vessel which gives off a PDA and PLV branch and is the dominant vessel. There is a focal proximal 95% stenosis and otherwise mild luminal irregularities FINAL IMPRESSION: 1. CAD as described above including mid LAD 40% stenosis, proximal RCA 95% stenosis 2. S/p PCI proximal RCA with a 5.0 x 12mm Xience ENMA PLAN: 1. Aggressive risk factor modification per most recent ACC/AHA guidelines. 2. Continue dual antiplatelets with aspirin and Plavix for 12 months 3. Consider TAVR evaluation if stable from a pulmonary perspective
--- NOTE | 2023-04-25 13:29 | P.PN ---
Subjective Progress Note Date: 04/25/23 Patient is a 62-year-old white female with past medical history significant for severe COPD with an FEV1 30% of predicted, chronic oxygen dependence on 5 L home O2, coronary artery disease, aortic valve stenosis, and chronic lower back pain who presented to the ER because of worsening shortness of breath. Patient stated that she was all right last night when she started complaining of worsening shortness of breath. Shortness of breath was present at rest. There was no complain of orthopnea or PND. No coughing of fever or chills. Patient was complaining of chest pain. Denies any cough. Because his worsening shortness of breath, EMS was called when EMS arrived, patient found to be tachycardic and tachypneic, patient was placed on nonrebreather and was transferred to the ER Initial lab work done in the ER showed WBC 26.7, hemoglobin 13.6, platelet count 237, sodium 134, potassium 4.9, chloride 89, BUN 18, creatinine 0.46 troponin 0.114 Influenza A not detected Influenza B not detected RSV not detected COVID-19 not detected EKG done in the ER showed heart rate of 119 , no ST segment elevation or depression seen, no T-wave inversions seen. Chest x-ray done in the ER showed cardiomegaly and mild pulmonary vascular congestion. Patient admitted to internal medicine service 04/20. Patient seen and examined. Blood work done this morning showed WBC 26.8 , hemoglobin 12.1, platelet count 247 sodium 133, potassium 4.2 BUN 40, creatinine 1.04. Patient currently off the BiPAP, on 6 L of oxygen. Sitting upright in the bed able to maintain a conversation. States breathing has improved. Denies any chest pain 04/21. Patient seen and examined. WBC 25.8, hemoglobin 11.8, sodium 134, potassium 4.5, BUN 51, creatinine 0.78. Currently on high flow nasal cannula at 10 L. patient is sitting upright in the bed, denies any shortness of breath at rest but gets short of breath on exertion. 04/22. Patient seen and examined. States breathing has improved. Still gets short of breath on exertion. Cardiology planning cardiac cath, most likely on Monday. 04/23. Patient seen and examined. Complaining of cough. Bringing up phlegm. Denies shortness of breath at rest but gets short of breath on exertion. Currently on 7 L of oxygen 04/24/23. Patient seen and examined. Continues to be on oxygen, currently on 6 L. Currently not in respiratory distress. Denies any shortness of breath at rest 04/25. Patient seen and examined. Currently nothing by mouth, going for cardiac cath today. Denies any shortness of breath. Denies any chest pain REVIEW OF SYSTEMS: CONSTITUTIONAL: No fever, no malaise,. CARDIOVASCULAR: No chest pain, no palpitations, no syncope. PULMONARY: As mentioned above GASTROINTESTINAL: No diarrhea, no nausea, no vomiting, no abdominal pain. NEUROLOGICAL: No headaches, no weakness, PHYSICAL EXAMINATION: GENERAL: The patient is alert and oriented x3, not in any acute distress. Well developed, well nourished. HEENT: Pupils are round and equally reacting to light. EOMI. No scleral icterus. No conjunctival pallor. Normocephalic, atraumatic. No pharyngeal erythema. No thyromegaly. CARDIOVASCULAR: S1 and S2 present. ejection systolic murmur audible PULMONARY: Coarse breath some bilaterally, no wheezing or crackles audible ABDOMEN: Soft, nontender, nondistended, normoactive bowel sounds. No palpable organomegaly. MUSCULOSKELETAL: No joint swelling or deformity. EXTREMITIES: No cyanosis, clubbing, or pedal edema. NEUROLOGICAL: Gross neurological examination did not reveal any focal deficits. SKIN: No rashes. Assessment and plan Acute COPD exacerbation Acute on chronic hypoxemic and hypercapnic respiratory failure, secondary to above Acute metabolic encephalopathy Elevated troponins Systolic heart failure with an ejection fraction of 45% Secondary pulmonary hypertension Ascending thoracic aortic aneurysm measuring 4.9 x 5 cm in size History of Coronary artery disease History of aortic valve stenosis Chronic lower back pain History of anxiety and depression Ex-smoker Monitor vital signs Monitor CBC Monitor CMP Continue telemetry monitoring Continue breathing treatments Trend troponins prednisone 40 mg daily Continue IV Rocephin Cardiology following, discuss with interventional cardiology regarding cardiac cath and aortic valve replacement. Cardiology planning cardiac cath today Pulmonary following In regards to hypertension, continue lisinopril and Lopressor Regards to hyperlipidemia continue Lipitor Labs and medication were reviewed.. Continue same treatment. Continue with symptomatic treatment. Resume home medication. Monitor labs and vitals. DVT and GI prophylaxis. Further recommendations as per clinical course of the patient Dictation was produced using [employer] dictation software. please excuse any grammatical, word or spelling errors. Objective - Vital Signs Vital signs: Vital Signs Temp 98.5 F 04/25/23 00:00 Pulse 88 04/25/23 04:00 Resp 20 04/25/23 04:00 BP 110/68 04/25/23 04:00 Pulse Ox 98 04/25/23 04:00 FiO2 50 04/21/23 09:00 Intake & Output 04/24/23 04/25/23 04/25/23 18:59 06:59 18:59 Intake Total 120 0 100 Balance 120 0 100 Intake: IV 100 Oral 120 0 Other: Voiding Method Bedside Commode Bedside Commode # Voids 2 1 ABP, PAP, CO, CI - Last Documented Arterial Blood Pressure 107/54 - Labs CBC & Chem 7: 04/24/23 15:18 04/24/23 15:18 Labs: Abnormal Lab Results - Last 24 Hours (Table) 04/24/23 04/24/23 04/24/23 Range/Units 11:44 15:18 15:18 WBC 14.4 H (3.8-10.6) k/uL Neutrophils # 13.1 H (1.3-7.7) k/uL Lymphocytes # 0.5 L (1.0-4.8) k/uL Chloride 87 L (98-107) mmol/L Carbon Dioxide 44 H* (22-30) mmol/L BUN 40 H (7-17) mg/dL Glucose 128 H (74-99) mg/dL POC Glucose (mg/dL) 155 H (70-110) mg/dL 04/24/23 04/24/23 Range/Units 16:37 19:59 WBC (3.8-10.6) k/uL Neutrophils # (1.3-7.7) k/uL Lymphocytes # (1.0-4.8) k/uL Chloride (98-107) mmol/L Carbon Dioxide (22-30) mmol/L BUN (7-17) mg/dL Glucose (74-99) mg/dL POC Glucose (mg/dL) 185 H 183 H (70-110) mg/dL
[2023-04-25] MEDS: IBUPROFEN 200 MG TAB PO PRN (13:39)
--- NOTE | 2023-04-25 15:20 | P.PN ---
Subjective Progress Note Date: 04/25/23 Principal diagnosis: Acute on chronic hypoxic and hypercapnic respiratory failure 62-year-old female patient with known to have advanced auction dependent COPD with an FEV1 of less than 30% of predicted and chronic oxygen dependence at 5 L/m nasal cannula. The patient has had several hospitalization for COPD exacerbation last hospitalization being in December 2022. The patient came in to the emergency department having progressive worsening shortness of breath. She was having diminished level of consciousness that she was also getting more lethargic. Based on that, the patient was placed on a BiPAP pressure of 12/5 cm of water with FiO2 of 50%. The patient remains actively bronchospastic and wheezy. Unable to generate volumes of above 200 mL while being on a BiPAP. Breathing is labored and she is having marked diminish breath sounds bilaterally and she is actively bronchospastic and wheezy. Arterial blood gas was done this morning and it showed a pH of 7.29 with a pCO2 of 78 and pO2 of 58. This was an FiO2 of 40% and accordingly, the FiO2 was raised up to 50%. The viral screen was negative for Covid 19, influenza and RSV. She did have a troponin leaks with troponins being 0.1 and 0.9 respectively. The white cell count is at 26 with a hemoglobin of 15.6 and a platelet count of 237. Sodium is at 134, potassium is at 4.9, bicarbonate of 36, BUN is at 80 with a creatinine of 0.4. Cardiomegaly with some mild pulmonary vessel congestion. CT antigram of the chest was done and shows no evidence of any pulmonary embolism. There is evidence of pulmonary hypertension and the patient had enlarged pulmonary trunk. There is moderate calcification of the aortic valve. A fusiform aneurysmal dilatation of the ascending aorta measuring 5 x 4.9 cm. Mild cardiomegaly. Right rib fractures. There is diffuse emphysematous changes bilaterally and a few subcentimeter pulmonary nodules. The patient is currently on Rocephin and Zithromax. The patient on IV Solu-Medrol. The patient on DuoNeb about treatments [id number]. On outpatient basis, the patient will maintain on Symbicort,yupelri nebulized treatments once a day and 5 mg of prednisone as a maintenance. On today's evaluation of 04/20/2023, the patient did significant progress since yesterday. She was kept on BiPAP throughout the night and she improved. Her mental status recovers. This morning she is on 6 L of oxygen by nasal cannula. Fully alert and awake and communicating and tolerating diet. She did encounter a severe COPD exacerbation with an acute on top of chronic hypoxic and hypercapnic respiratory failure and for that reason she got moved to the intensive care unit where she was treated with a combination of bronchodilators and steroids. An arterial line was also started yesterday. This morning, she has no specific complaints. No chest pain. No angina. No palpitations. The blood work from today. Shows a WBC count 26, hemoglobin of 12.1 and a platelet count of 247. The sodium is at 133, potassium of 4.2, carotids 88 with a bicarb of 36. BUN is at 40 with a creatinine of 1.04. A repeat chest x-ray was done today and findings of essentially stable without any airspace disease or consolidation. No evidence of any pneumonia at this point in time. She is hemodynamically stable. She has not required any pressors. No was on a minimal dose of norepinephrine overnight and currently she is off pressors. The patient was also diabetes overnight with IV Lasix and the patient is a negative fluid balance of 2.1 L and the patient is going to be switched to oral Lasix. On today's evaluation of 04/21/2023, the patient is doing much better. Re spiratory status is stable. She is currently on oxygen at 8 L nasal cannula. Her baseline oxygen requirement is around 5 L. Her current pulse ox is 91%. The patient has no significant respiratory distress at rest. No chest pain. Cardiac rhythm is sinus. On today's blood work, she has a white cell count of 25 which is essentially compatible to yesterday. The patient is a hemoglobin 11.8, platelet count of 246. Sodium level is at 134, potassium 4.5, BUN is 51 with a creatinine of 0.7. The chest x-ray from today is showing mild pulmonary vessel congestion and cardiomegaly. As stated earlier, the patient has a component of aortic stenosis which is moderate to severe with a valvular area of 0.9 cm. It encounter some hypotension earlier. She was also placed on pressors. Currently she is normotensive. She is receiving Lasix 40 mg by mouth daily. Antibiotic coverage is still with a combination of Rocephin and Zithromax. The patient is also on IV heparin. The patient is on IV Solu- Medrol. No signs of any CO2 narcosis. She is tolerating her diet. On 04/22/2023, the patient is outside anticoagulated and the patient's coagulation floor. He woke a spastic and wheezing. Nevertheless, she is off the BiPAP and she is currently on oxygen. She is on 7 L of oxygen by nasal cannula with a pulse ox of 94%. She remains on bronchodilators. She remains on antibiotics. She remains on steroids. She has 7 and the patient troponin and the patient is being considered for cardiac catheterization. She is to have any chest pain. No signs of any CO2 narcosis and this point in time. Alert and awake and communicating. On today's evaluation of 04/23/2020, the patient is clinically stable. No new complaints. No signs of any CO2 narcosis. She has coronary myopathy. No signs of any fluid overload. The patient is still being considered for another cardiac catheterization. She does not have any significant chest pain. She was treated with DuoNeb updrafts, Pulmicort Respules, Perforomist updrafts, and she is also on IV Solu-Medrol 60 mg every 6 hours. No new labs are available from today. Her condition is stable and she remains on oxygen at 7 L with a pulse ox of 97%. On 04/24/2023, the patient is resting comfortably. She's able to sit up on a chair also. No new complaints. Episodes of cough. Still requiring high oxygen flow at 6 L nasal cannula. No chest pain. Note that during this current hospitalization, the patient sustained an acute non-ST segment elevation myocardial infarction and troponin was elevated and peaked at 1.4. Based on that, the patient is still being considered for cardiac catheterization. Not utilizing the BiPAP for now. Remains on bronchodilators. Started on prednisone burst taper as of yesterday. Remains on IV Rocephin. Rest of the medications are unchanged and the patient remains on Lasix 40 mg by mouth once a day. No signs of any significant fluid overload at this point. Patient was reevaluated today on 04/25/2023, patient is resting very comfortably, not in any distress. Underwent cardiac catheterization today, patient underwent PCI proximal RCA/stent placement, and the recommendation by cardiology is to continue dual platelets with aspirin and Plavix for 12 months. And to consider in the future taVR evaluation. Clinically the patient is feeling better, breathing easier, she does not seem to be in any distress, remains on 5 L nasal cannula with O2 saturations 95%. Vague chest discomfort otherwise the patient is doing well. Intermittent cough and wheezing but relatively under control overall Objective - Vital Signs Vital signs: Vital Signs Temp 98.0 F 04/25/23 13:38 Pulse 67 04/25/23 13:38 Resp 20 04/25/23 13:38 BP 106/69 04/25/23 13:38 Pulse Ox 95 04/25/23 13:38 FiO2 50 04/21/23 09:00 Intake & Output 04/24/23 04/25/23 04/25/23 18:59 06:59 18:59 Intake Total 120 0 100 Balance 120 0 100 Intake: IV 100 Oral 120 0 Other: Voiding Method Bedside Commode Bedside Commode Bedside Commode # Voids 2 1 ABP, PAP, CO, CI - Last Documented Arterial Blood Pressure 107/54 - Exam Physical Exam: Revealed a 62-year-old female, cushingoid, in no distress on 5 L nasal cannula Head: Atraumatic normocephalic. HEENT:[Neck is supple.] [No neck masses.] [No thyromegaly.] [No JVD.] Chest: [Medical chest expansion diminished breath sound bilaterally no rhonchi no wheezes Cardiac Exam: [Normal S1 and S2, no S3 gallop, no murmur.] Abdomen: [Obese, Soft, nontender, no megaly, no rebound, no guarding, normal bowel sounds.] Extremities: [No clubbing, no edema, no cyanosis.] Neurological Exam: [No focal neurologic deficit.] Alert and oriented 3 Psychiatric: Normal mood, affect and normal mental status examination. Skin: No rashes. - Labs CBC & Chem 7: 04/24/23 15:18 04/24/23 15:18 Labs: Abnormal Lab Results - Last 24 Hours (Table) 04/24/23 04/24/23 04/24/23 Range/Units 15:18 15:18 16:37 WBC 14.4 H (3.8-10.6) k/uL Neutrophils # 13.1 H (1.3-7.7) k/uL Lymphocytes # 0.5 L (1.0-4.8) k/uL Chloride 87 L (98-107) mmol/L Carbon Dioxide 44 H* (22-30) mmol/L BUN 40 H (7-17) mg/dL Glucose 128 H (74-99) mg/dL POC Glucose (mg/dL) 185 H (70-110) mg/dL 04/24/23 04/25/23 Range/Units 19:59 11:50 WBC (3.8-10.6) k/uL Neutrophils # (1.3-7.7) k/uL Lymphocytes # (1.0-4.8) k/uL Chloride (98-107) mmol/L Carbon Dioxide (22-30) mmol/L BUN (7-17) mg/dL Glucose (74-99) mg/dL POC Glucose (mg/dL) 183 H 137 H (70-110) mg/dL Assessment and Plan Assessment: Impression: Acute non-ST elevation myocardial infarction, status post cardiac catheterization and stent placement Acute on chronic hypoxic and hypercapnic respiratory failure secondary to acute exacerbation of COPD Advanced COPD FEV1 less than 30% Chronic hypoxic respiratory failure Chronic lower back pain Moderate severe aortic stenosis Chronic systolic dysfunction with ejection fraction of 45% Secondary pulmonary hypertension Ascending thoracic aortic aneurysm Recommendation: Continue oxygen and titrate accordingly Continue bronchodilators Continue Lasix Continue GI and DVT prophylaxis Medical therapy/antiplatelet therapy for 12 months after stent placement Continue antibiotics empirically Prednisone burst and taper We'll continue to follow Time with Patient: Less than 30
[2023-04-25 16:37] LABS: Glucose,Whole Blood 128 mg/dL (70-110)
[2023-04-25 20:19] LABS: Glucose,Whole Blood 196 mg/dL (70-110)
[2023-04-25] MEDS: INSULIN DETEMIR (LEVEMIR) 100 UNIT/ML SYR SQ SCH (22:16)
[2023-04-25] MEDS: ATORVASTATIN 40 MG TAB PO SCH (22:16)
[2023-04-26 05:54] LABS: Glucose,Whole Blood 95 mg/dL (70-110)
[2023-04-26] MEDS: INSULIN ASPART (NovoLOG) 100 UNIT/ML VIAL SQ SCH (06:15)
[2023-04-26 08:15] LABS: African American GFR (CKD) >90 (>60 ml/min/1.73 sqM); Non-African American GFR(CKD) >90 (>60 ml/min/1.73 sqM)
[2023-04-26] MEDS: IPRATROPIUM-ALBUTEROL 3 ML NEB INHALATION SCH ×2 (08:23→11:52)
[2023-04-26] MEDS: BUDESONIDE 1 MG/2 ML NEBU INHALATION SCH (08:23)
[2023-04-26] MEDS: FORMOTEROL FUMARATE 20 MCG/2 ML NEBU INHALATION SCH (08:34)
[2023-04-26] MEDS ORDERED: CLOPIDOGREL 75 MG TAB PO SCH (09:00)
[2023-04-26] MEDS: SERTRALINE 100 MG TAB PO SCH (09:41)
[2023-04-26] MEDS: predniSONE 20 MG TAB PO SCH (09:41)
[2023-04-26] MEDS: DAPAGLIFLOZIN PROPANEDIOL 5 MG TABLET PO SCH (09:41)
[2023-04-26] MEDS: METOPROLOL TARTRATE 25 MG TAB PO SCH (09:41)
[2023-04-26] MEDS: FUROSEMIDE 40 MG TAB PO SCH (09:41)
[2023-04-26] MEDS: guaiFENesin 600 MG TABLET.ER PO SCH (09:41)
[2023-04-26] MEDS: ENOXAPARIN 40 MG/0.4 ML SYRINGE SQ SCH (09:41)
[2023-04-26] MEDS: ASPIRIN 325 MG TAB PO SCH (09:41)
[2023-04-26] MEDS: lisinopriL 20 MG TAB PO SCH (09:42)
[2023-04-26 11:22] LABS: Glucose,Whole Blood 147 mg/dL (70-110)
[2023-04-26 11:43] VITALS: BMI 35.5
--- NOTE | 2023-04-26 12:26 | P.DS ---
Providers Date of admission: 04/19/23 07:05 Expected date of discharge: 04/26/23 Attending physician: Seferino Crawford Consults: 04/19/23 10:23 Consult Physician Routine Consulting Provider: Nelly Rahman Consult Reason/Comments: Acute COPD exacerbation, respiratory failure Do you want consulting provider notified?: Yes 04/19/23 13:48 Consult Physician Routine Consulting Provider: Juan Miguel Jansen Consult Reason/Comments: increase troponin Do you want consulting provider notified?: Yes 04/25/23 12:56 Consult Physician Routine Consulting Provider: [facility] Consult Reason/Comments: Post Interventional Patient Do you want consulting provider notified?: Already Contacted Primary care physician: Jeremy Raymon [facility] Course: Discharge diagnoses; Acute COPD exacerbation Acute on chronic hypoxemic and hypercapnic respiratory failure, secondary to above Acute metabolic encephalopathy Elevated troponins Systolic heart failure with an ejection fraction of 45% Secondary pulmonary hypertension Ascending thoracic aortic aneurysm measuring 4.9 x 5 cm in size History of Coronary artery disease History of aortic valve stenosis Chronic lower back pain History of anxiety and depression Ex-smoker Hospital course; Patient is a 62-year-old white female with past medical history significant for severe COPD with an FEV1 30% of predicted, chronic oxygen dependence on 5 L home O2, coronary artery disease, aortic valve stenosis, and chronic lower back pain who presented to the ER because of worsening shortness of breath. Patient stated that she was all right last night when she started complaining of worsening shortness of breath. Shortness of breath was present at rest. There was no complain of orthopnea or PND. No coughing of fever or chills. Patient was complaining of chest pain. Denies any cough. Because his worsening shortness of breath, EMS was called when EMS arrived, patient found to be tachycardic and tachypneic, patient was placed on nonrebreather and was transferred to the ER Initial lab work done in the ER showed WBC 26.7, hemoglobin 13.6, platelet count 237, sodium 134, potassium 4.9, chloride 89, BUN 18, creatinine 0.46 troponin 0.114 Influenza A not detected Influenza B not detected RSV not detected COVID-19 not detected EKG done in the ER showed heart rate of 119 , no ST segment elevation or depression seen, no T-wave inversions seen. Chest x-ray done in the ER showed cardiomegaly and mild pulmonary vascular congestion. Patient admitted to internal medicine service 04/20. Patient seen and examined. Blood work done this morning showed WBC 26.8, hemoglobin 12.1, platelet count 247 sodium 133, potassium 4.2 BUN 40, creatinine 1.04. Patient currently off the BiPAP, on 6 L of oxygen. Sitting upright in the bed able to maintain a conversation. States breathing has improved. Denies any chest pain 04/21. Patient seen and examined. WBC 25.8, hemoglobin 11.8, sodium 134, potassium 4.5, BUN 51, creatinine 0.78. Currently on high flow nasal cannula at 10 L. patient is sitting upright in the bed, denies any shortness of breath at rest but gets short of breath on exertion. 04/22. Patient seen and examined. States breathing has improved. Still gets short of breath on exertion. Cardiology planning cardiac cath, most likely on Monday. 04/23. Patient seen and examined. Complaining of cough. Bringing up phlegm. Denies shortness of breath at rest but gets short of breath on exertion. Currently on 7 L of oxygen 04/24/23. Patient seen and examined. Continues to be on oxygen, currently on 6 L. Currently not in respiratory distress. Denies any shortness of breath at rest /2. Patient seen and examined. Currently nothing by mouth, going for cardiac cath today. Denies any shortness of breath. Denies any chest pain /3. Patient seen and examined. States she feels better. S/p PCI proximal RCA with a 5.0 x 12mm Xience ENMA. Cardiology recommended starting patient on dual antiplatelet therapy. Pulmonology also cleared the patient for discharge . PHYSICAL EXAMINATION: GENERAL: The patient is alert and oriented x3, not in any acute distress. Well developed, well nourished. HEENT: Pupils are round and equally reacting to light. EOMI. No scleral icterus. No conjunctival pallor. Normocephalic, atraumatic. No pharyngeal erythema. No thyromegaly. CARDIOVASCULAR: S1 and S2 present. ejection systolic murmur audible PULMONARY: Coarse breath some bilaterally, no wheezing or crackles audible ABDOMEN: Soft, nontender, nondistended, normoactive bowel sounds. No palpable organomegaly. MUSCULOSKELETAL: No joint swelling or deformity. EXTREMITIES: No cyanosis, clubbing, or pedal edema. NEUROLOGICAL: Gross neurological examination did not reveal any focal deficits. SKIN: No rashes. Dictation was produced using [employer] dictation software. please excuse any grammatical, word or spelling errors. Patient Condition at Discharge: Serious Plan - Discharge Summary New Discharge Prescriptions: New Nitroglycerin Sl Tabs [Nitrostat] 0.4 mg SUBLINGUAL Q5M PRN #30 tab PRN Reason: Chest Pain Clopidogrel [Plavix] 75 mg PO DAILY 30 Days #30 tab Metoprolol Succinate (ER) [Toprol XL] 25 mg PO DAILY 30 Days #30 tab lisinopriL [Zestril] 20 mg PO DAILY 30 Days #30 tab Continue Albuterol Inhaler [Ventolin Hfa Inhaler] 2 puff INHALATION RT-Q4H PRN PRN Reason: Shortness Of Breath Aspirin 81 mg PO DAILY 30 Days #30 tab Yupelri 175mcg/3ml 175 mcg INHALATION RT-DAILY predniSONE 5 mg PO DAILY Tiotropium [place] [Spiriva Handihaler] 1 cap INHALATION RT-DAILY Atorvastatin [Lipitor] 40 mg PO HS Sertraline [Zoloft] 100 mg PO DAILY Budesonide/Formoterol Fumarate [Symbicort 160-4.5 Mcg Inhaler] 2 puff INHALATION RT-BID Ipratropium-Albuterol Nebulize [Duoneb 0.5 mg-3 mg/3 ml Soln] 3 ml INHALATION RT-QID PRN PRN Reason: Shortness Of Breath Dapagliflozin Propanediol [Farxiga] 5 mg PO DAILY hydrOXYzine HCL [Atarax] 25 mg PO BID Discontinued Meloxicam [Mobic] 7.5 mg PO BID lisinopriL 30 mg PO DAILY Metoprolol Tartrate [Lopressor] 25 mg PO DAILY Discharge Medication List Albuterol Inhaler [Ventolin Hfa Inhaler] 2 puff INHALATION RT-Q4H PRN 04/09/22 [History] Atorvastatin [Lipitor] 40 mg PO HS 04/09/22 [History] Aspirin 81 mg PO DAILY 30 Days #30 tab 04/12/22 [Rx] Sertraline [Zoloft] 100 mg PO DAILY 06/15/22 [History] Budesonide/Formoterol Fumarate [Symbicort 160-4.5 Mcg Inhaler] 2 puff INHALATION RT-BID 07/13/22 [History] Ipratropium-Albuterol Nebulize [Duoneb 0.5 mg-3 mg/3 ml Soln] 3 ml INHALATION RT-QID PRN 09/23/22 [History] Dapagliflozin Propanediol [Farxiga] 5 mg PO DAILY 11/19/22 [History] Yupelri 175mcg/3ml 175 mcg INHALATION RT-DAILY 11/19/22 [History] hydrOXYzine HCL [Atarax] 25 mg PO BID 11/19/22 [History] Tiotropium [place] [Spiriva Handihaler] 1 cap INHALATION RT-DAILY 04/19/23 [History] predniSONE 5 mg PO DAILY 04/19/23 [History] Clopidogrel [Plavix] 75 mg PO DAILY 30 Days #30 tab 04/26/23 [Rx] Metoprolol Succinate (ER) [Toprol XL] 25 mg PO DAILY 30 Days #30 tab 04/26/23 [Rx] Nitroglycerin Sl Tabs [Nitrostat] 0.4 mg SUBLINGUAL Q5M PRN #30 tab 04/26/23 [Rx] lisinopriL [Zestril] 20 mg PO DAILY 30 Days #30 tab 04/26/23 [Rx] Follow up Appointment(s)/Referral(s): [facility], [NON-STAFF] - 1 Week (Agency will call to arrange a visit. ) Júnior Morgan DO [Doctor of Osteopathic Medicine] - 05/10/23 9:00 am Jeremy Ennis DO [Primary Care Provider] - 1-2 days Discharge Disposition: HOME WITH HOME HEALTH SERVICES
--- NOTE | 2023-04-26 12:37 | P.PN ---
Subjective Progress Note Date: 04/26/23 Principal diagnosis: Acute on chronic hypoxic and hypercapnic respiratory failure 62-year-old female patient with known to have advanced auction dependent COPD with an FEV1 of less than 30% of predicted and chronic oxygen dependence at 5 L/m nasal cannula. The patient has had several hospitalization for COPD exacerbation last hospitalization being in December 2022. The patient came in to the emergency department having progressive worsening shortness of breath. She was having diminished level of consciousness that she was also getting more lethargic. Based on that, the patient was placed on a BiPAP pressure of 12/5 cm of water with FiO2 of 50%. The patient remains actively bronchospastic and wheezy. Unable to generate volumes of above 200 mL while being on a BiPAP. Breathing is labored and she is having marked diminish breath sounds bilaterally and she is actively bronchospastic and wheezy. Arterial blood gas was done this morning and it showed a pH of 7.29 with a pCO2 of 78 and pO2 of 58. This was an FiO2 of 40% and accordingly, the FiO2 was raised up to 50%. The viral screen was negative for Covid 19, influenza and RSV. She did have a troponin leaks with troponins being 0.1 and 0.9 respectively. The white cell count is at 26 with a hemoglobin of 15.6 and a platelet count of 237. Sodium is at 134, potassium is at 4.9, bicarbonate of 36, BUN is at 80 with a creatinine of 0.4. Cardiomegaly with some mild pulmonary vessel congestion. CT antigram of the chest was done and shows no evidence of any pulmonary embolism. There is evidence of pulmonary hypertension and the patient had enlarged pulmonary trunk. There is moderate calcification of the aortic valve. A fusiform aneurysmal dilatation of the ascending aorta measuring 5 x 4.9 cm. Mild cardiomegaly. Right rib fractures. There is diffuse emphysematous changes bilaterally and a few subcentimeter pulmonary nodules. The patient is currently on Rocephin and Zithromax. The patient on IV Solu-Medrol. The patient on DuoNeb about treatments [id number]. On outpatient basis, the patient will maintain on Symbicort,yupelri nebulized treatments once a day and 5 mg of prednisone as a maintenance. On today's evaluation of 04/20/2023, the patient did significant progress since yesterday. She was kept on BiPAP throughout the night and she improved. Her mental status recovers. This morning she is on 6 L of oxygen by nasal cannula. Fully alert and awake and communicating and tolerating diet. She did encounter a severe COPD exacerbation with an acute on top of chronic hypoxic and hypercapnic respiratory failure and for that reason she got moved to the intensive care unit where she was treated with a combination of bronchodilators and steroids. An arterial line was also started yesterday. This morning, she has no specific complaints. No chest pain. No angina. No palpitations. The blood work from today. Shows a WBC count 26, hemoglobin of 12.1 and a platelet count of 247. The sodium is at 133, potassium of 4.2, carotids 88 with a bicarb of 36. BUN is at 40 with a creatinine of 1.04. A repeat chest x-ray was done today and findings of essentially stable without any airspace disease or consolidation. No evidence of any pneumonia at this point in time. She is hemodynamically stable. She has not required any pressors. No was on a minimal dose of norepinephrine overnight and currently she is off pressors. The patient was also diabetes overnight with IV Lasix and the patient is a negative fluid balance of 2.1 L and the patient is going to be switched to oral Lasix. On today's evaluation of 04/21/2023, the patient is doing much better. Re spiratory status is stable. She is currently on oxygen at 8 L nasal cannula. Her baseline oxygen requirement is around 5 L. Her current pulse ox is 91%. The patient has no significant respiratory distress at rest. No chest pain. Cardiac rhythm is sinus. On today's blood work, she has a white cell count of 25 which is essentially compatible to yesterday. The patient is a hemoglobin 11.8, platelet count of 246. Sodium level is at 134, potassium 4.5, BUN is 51 with a creatinine of 0.7. The chest x-ray from today is showing mild pulmonary vessel congestion and cardiomegaly. As stated earlier, the patient has a component of aortic stenosis which is moderate to severe with a valvular area of 0.9 cm. It encounter some hypotension earlier. She was also placed on pressors. Currently she is normotensive. She is receiving Lasix 40 mg by mouth daily. Antibiotic coverage is still with a combination of Rocephin and Zithromax. The patient is also on IV heparin. The patient is on IV Solu- Medrol. No signs of any CO2 narcosis. She is tolerating her diet. On 04/22/2023, the patient is outside anticoagulated and the patient's coagulation floor. He woke a spastic and wheezing. Nevertheless, she is off the BiPAP and she is currently on oxygen. She is on 7 L of oxygen by nasal cannula with a pulse ox of 94%. She remains on bronchodilators. She remains on antibiotics. She remains on steroids. She has 7 and the patient troponin and the patient is being considered for cardiac catheterization. She is to have any chest pain. No signs of any CO2 narcosis and this point in time. Alert and awake and communicating. On today's evaluation of 04/23/2020, the patient is clinically stable. No new complaints. No signs of any CO2 narcosis. She has coronary myopathy. No signs of any fluid overload. The patient is still being considered for another cardiac catheterization. She does not have any significant chest pain. She was treated with DuoNeb updrafts, Pulmicort Respules, Perforomist updrafts, and she is also on IV Solu-Medrol 60 mg every 6 hours. No new labs are available from today. Her condition is stable and she remains on oxygen at 7 L with a pulse ox of 97%. On 04/24/2023, the patient is resting comfortably. She's able to sit up on a chair also. No new complaints. Episodes of cough. Still requiring high oxygen flow at 6 L nasal cannula. No chest pain. Note that during this current hospitalization, the patient sustained an acute non-ST segment elevation myocardial infarction and troponin was elevated and peaked at 1.4. Based on that, the patient is still being considered for cardiac catheterization. Not utilizing the BiPAP for now. Remains on bronchodilators. Started on prednisone burst taper as of yesterday. Remains on IV Rocephin. Rest of the medications are unchanged and the patient remains on Lasix 40 mg by mouth once a day. No signs of any significant fluid overload at this point. Patient was reevaluated today on 04/25/2023, patient is resting very comfortably, not in any distress. Underwent cardiac catheterization today, patient underwent PCI proximal RCA/stent placement, and the recommendation by cardiology is to continue dual platelets with aspirin and Plavix for 12 months. And to consider in the future taVR evaluation. Clinically the patient is feeling better, breathing easier, she does not seem to be in any distress, remains on 5 L nasal cannula with O2 saturations 95%. Vague chest discomfort otherwise the patient is doing well. Intermittent cough and wheezing but relatively under control overall Reevaluated today on 04/26/2023, patient remains on the cardiac floor, doing well, she is feeling better since she had her cardiac catheterization and stent placement, pulmonary-woo she is back to her baseline, patient is wondering if she could be discharged home today, and I will clear the patient is cleared by cardiology. Her pulmonary status is probably back to baseline today. On physical examination she had mostly diminished breath sounds and no wheezing. Objective - Vital Signs Vital signs: Vital Signs Temp 98 F 04/26/23 09:40 Pulse 86 04/26/23 12:04 Resp 20 04/26/23 09:40 BP 110/73 04/26/23 09:40 Pulse Ox 91 L 04/26/23 09:40 FiO2 50 04/21/23 09:00 Intake & Output 04/25/23 04/26/23 04/26/23 18:59 06:59 18:59 Intake Total 218 0 Balance 218 0 Weight 96.8 kg Intake: IV 100 Oral 118 0 Other: Voiding Method Bedside Commode Bedside Commode Bedside Commode # Voids 2 1 ABP, PAP, CO, CI - Last Documented Arterial Blood Pressure 107/54 - Exam Physical Exam: Revealed a 62-year-old female, cushingoid, in no distress on 3 L nasal cannula with O2 sats of 98% Head: Atraumatic normocephalic. HEENT:[Neck is supple.] [No neck masses.] [No thyromegaly.] [No JVD.] Chest: [Medical chest expansion diminished breath sound bilaterally no rhonchi no wheezes Cardiac Exam: [Normal S1 and S2, no S3 gallop, no murmur.] Abdomen: [Obese, Soft, nontender, no megaly, no rebound, no guarding, normal bowel sounds.] Extremities: [No clubbing, no edema, no cyanosis.] Neurological Exam: [No focal neurologic deficit.] Alert and oriented 3 Psychiatric: Normal mood, affect and normal mental status examination. Skin: No rashes. - Labs CBC & Chem 7: 04/24/23 15:18 04/26/23 06:30 Labs: Abnormal Lab Results - Last 24 Hours (Table) 04/25/23 04/25/23 04/26/23 Range/Units 16:35 20:14 11:21 POC Glucose (mg/dL) 128 H 196 H 147 H (70-110) mg/dL Assessment and Plan Assessment: Impression: Acute non-ST elevation myocardial infarction, status post cardiac catheterization and stent placement Acute on chronic hypoxic and hypercapnic respiratory failure secondary to acute exacerbation of COPD Advanced COPD FEV1 less than 30% Chronic hypoxic respiratory failure Chronic lower back pain Moderate severe aortic stenosis Chronic systolic dysfunction with ejection fraction of 45% Secondary pulmonary hypertension Ascending thoracic aortic aneurysm Recommendation: Continue oxygen and titrate accordingly Continue bronchodilators Continue Lasix Continue GI and DVT prophylaxis Medical therapy/antiplatelet therapy for 12 months after stent placement Prednisone burst and taper on outpatient basis Will clear the patient for discharge if cleared by other consultants Patient to follow-up with Dr. Silverio post discharge We'll continue to follow Time with Patient: Less than 30
[2023-04-26 13:18] VITALS: BP 115/73; PULSE 84; RESP 18; TEMP 98.5
--- NOTE | 2023-04-26 14:07 | P.PN ---
Subjective Progress Note Date: 04/26/23 HISTORY OF PRESENTING ILLNESS Pleasant 62-year-old female with history of severe COPD, aortic stenosis who presented secondary to shortness breath and was hypoxic with pulse ox in the 70s requiring BiPAP. She did have non-STEMI and additionally has severe aortic stenosis. She denies any chest pain or pressure. Prior echo from 11/22/2022 showed severe aortic stenosis with a maximum velocity 4.2 m/s. Creatinine stable 0.8, BUN 50. Troponin 1.4 on admission. She is currently on 7 L oxygen 04/26 Yesterday, patient underwent stenting of the proximal RCA with Dr. Hinkle. Patient is on dual antiplatelet with aspirin and Plavix for 12 months and TAVR evaluation if stable from pulmonary perspective. Heart rate is in the 80s and 90s, blood pressure 115/73, pulse ox 100% on high flow nasal cannula 5 L, afebrile. Repeat creatinine 0.57. Patient denies any new complaints. She has been advised to not take Advil at home. PHYSICAL EXAMINATION Vital signs reviewed. CONSTITUTIONAL: No apparent distress, obese, chronically ill-appearing, no increased work of breathing HEENT: Head is normocephalic. Pupils are equal, round. Sclerae anicteric. Mucous membranes of the mouth are moist. No JVD. No carotid bruit. CHEST EXAMINATION: Decreased air movement, mild wheeze HEART EXAMINATION: Regular rate and rhythm. S1 heard. Soft S2, +3/6 systolic murmur, no gallops or rub. EXTREMITIES: 2+ peripheral pulses, no lower extremity edema and no calf tenderness. NEUROLOGIC EXAMINATION: Patient is awake, alert and oriented x3. ASSESSMENT 1. Non-STEMI, status post stent of the proximal RCA 2. Severe aortic stenosis 3. Diabetes mellitus type 2 4. Severe COPD on 5 L home O2 5. Hypertension 6. Hyperlipidemia PLAN Continue current cardiac medications Patient is cleared for discharge from cardiology and will follow-up with Dr. Hinkle. Nurse practitioner note has been reviewed, I agree with the documented findings and plan of care. Patient was seen and examined. Objective - Vital Signs Vital signs: Vital Signs Temp 98 F 04/26/23 09:40 Pulse 85 04/26/23 09:40 Resp 20 04/26/23 09:40 BP 110/73 04/26/23 09:40 Pulse Ox 91 L 04/26/23 09:40 FiO2 50 04/21/23 09:00 Intake & Output 04/25/23 04/26/23 04/26/23 18:59 06:59 18:59 Intake Total 218 0 Balance 218 0 Intake: IV 100 Oral 118 0 Other: Voiding Method Bedside Commode Bedside Commode Bedside Commode # Voids 2 1 ABP, PAP, CO, CI - Last Documented Arterial Blood Pressure 107/54 - Labs CBC & Chem 7: 04/24/23 15:18 04/26/23 06:30 Labs: Abnormal Lab Results - Last 24 Hours (Table) 04/25/23 04/25/23 04/25/23 Range/Units 11:50 16:35 20:14 POC Glucose (mg/dL) 137 H 128 H 196 H (70-110) mg/dL
[2023-04-27] MEDS ORDERED: METOPROLOL SUCCINATE (ER) 25 MG TAB.ER.24H PO SCH (09:00)
[2023-04-27] MEDS ORDERED: ASPIRIN 81 MG PO SCH (09:00)
== END 2023-04-26 14:11 | disposition home health service (06) | DRG 321 ==
LOC: EC 04:18 → 3SCARD 07:05 → 2SICU 17:51 → 3SCARD 04-21 14:54
PROVIDERS: ADMIT Hospitalist; ATTEND Hospitalist
PROC: 03HY32Z Insertion of Monitoring Device into Upper Artery, Percutaneous Approach (ICD-10-PCS; 2023-04-19)
PROC: 4A133B1 Monitoring of Arterial Pressure, Peripheral, Percutaneous Approach (ICD-10-PCS; 2023-04-19)
PROC: 4A133J1 Monitoring of Arterial Pulse, Peripheral, Percutaneous Approach (ICD-10-PCS; 2023-04-19)
PROC: 5A09357 Assistance with Respiratory Ventilation, Less than 24 Consecutive Hours, Continuous Positive Airway Pressure (ICD-10-PCS; 2023-04-19)
PROC: 3E033XZ Introduction of Vasopressor into Peripheral Vein, Percutaneous Approach (ICD-10-PCS; 2023-04-20)
PROC: 5A0935A Assistance with Respiratory Ventilation, Less than 24 Consecutive Hours, High Flow/Velocity Cannula (ICD-10-PCS; 2023-04-21)
PROC: 027034Z Dilation of Coronary Artery, One Artery with Drug-eluting Intraluminal Device, Percutaneous Approach (ICD-10-PCS; principal; 2023-04-25 11:30)
PROC: B240ZZ3 Ultrasonography of Single Coronary Artery, Intravascular (ICD-10-PCS; 2023-04-25 11:30)
DX: I21.4 Non-ST elevation (NSTEMI) myocardial infarction (principal); G93.41 Metabolic encephalopathy; J96.21 Acute and chronic respiratory failure with hypoxia; J96.22 Acute and chronic respiratory failure with hypercapnia; I50.23 Acute on chronic systolic (congestive) heart failure; E87.29 Other acidosis; J44.1 Chronic obstructive pulmonary disease with (acute) exacerbation; I27.29 Other secondary pulmonary hypertension; I11.0 Hypertensive heart disease with heart failure; I71.21 Aneurysm of the ascending aorta, without rupture; I95.9 Hypotension, unspecified; E66.01 Morbid (severe) obesity due to excess calories; Z66 Do not resuscitate; F32.A Depression, unspecified; I08.3 Combined rheumatic disorders of mitral, aortic and tricuspid valves; G89.29 Other chronic pain; I25.10 Atherosclerotic heart disease of native coronary artery without angina pectoris; M54.50 Low back pain, unspecified; E78.5 Hyperlipidemia, unspecified; F41.9 Anxiety disorder, unspecified; Z68.35 Body mass index [BMI] 35.0-35.9, adult; Z99.81 Dependence on supplemental oxygen; Z11.52 Encounter for screening for COVID-19; Z82.49 Family history of ischemic heart disease and other diseases of the circulatory system; Z87.891 Personal history of nicotine dependence; Z79.1 Long term (current) use of non-steroidal anti-inflammatories (NSAID); Z79.51 Long term (current) use of inhaled steroids; Z79.84 Long term (current) use of oral hypoglycemic drugs; Z79.82 Long term (current) use of aspirin; Z79.52 Long term (current) use of systemic steroids
CPT/HCPCS: 36415; 36600; 71045; 71275; 76937; 80048; 80053; 81001; 82565; 82803; 82805; 83605; 83735; 84484; 85025; 85610; 85730; 87636; 92978; 93005; 93454; 94640; 94660; 94760; 96365; 96366; 96367; 96375; 96376; 99285

== ENCOUNTER 2023-05-11 10:03 | Inpatient (IN) | payer MEDICARE, OTHER ==
[2023-05-11] MEDS: ALBUTEROL HFA INHALER INHALATION STA (10:27)
[2023-05-11] MEDS: LORazepam 2 MG/ML INJ IV STA ×2 (10:40→11:54)
[2023-05-11] MEDS: methylPREDNISolone SOD SUCCI 125 MG/2 ML VIAL IV STA (10:42)
[2023-05-11] MEDS: SODIUM CHLORIDE 0.9% 1,000 ML IV STA ×3 (10:45→12:32)
[2023-05-11 10:46] LABS: Basophils # (A) 0.1 k/uL (0-0.2); Basophils % (A) 0 %; Eosinophils # (A) 0.2 k/uL (0-0.7); Eosinophils % (A) 1 %; HCT 37.3 % (34.0-46.0); HGB 11.9 gm/dL (11.4-16.0); Hypochromasia Moderate; Lymphocytes # (A) 1.2 k/uL (1.0-4.8); Lymphocytes % (A) 7 %; MCH 30.7 pg (25.0-35.0); MCHC 31.9 g/dL (31.0-37.0); MCV 96.3 fL (80.0-100.0); Mean Platelet Volume 7.2; Monocytes # (A) 0.7 k/uL (0-1.0); Monocytes % (A) 4 %; Neutrophils # (A) 13.8 k/uL (1.3-7.7); Neutrophils % (A) 85 %; Platelet Count 245 k/uL (150-450); RBC 3.87 m/uL (3.80-5.40); WBC 16.3 k/uL (3.8-10.6)
[2023-05-11] MEDS: ACETAMINOPHEN IV (For NPO) 1,000 MG in EMPTY BAG 1 BAG IVPB STA (11:10)
[2023-05-11 11:18] LABS: ALT 26 U/L (4-34); AST 46 U/L (14-36); African American GFR (CKD) >90 (>60 ml/min/1.73 sqM); Albumin 3.9 g/dL (3.5-5.0); Alkaline Phosphatase 104 U/L (38-126); Anion Gap 5 mmol/L; Blood Urea Nitrogen 18 mg/dL (7-17); Calcium 9.1 mg/dL (8.4-10.2); Carbon Dioxide 35 mmol/L (22-30); Chloride 96 mmol/L (98-107); Glucose 130 mg/dL (74-99); Non-African American GFR(CKD) >90 (>60 ml/min/1.73 sqM); Sodium 136 mmol/L (137-145); Total Bilirubin 1.1 mg/dL (0.2-1.3); Total Protein 7.3 g/dL (6.3-8.2)
[2023-05-11 11:25] LABS: NT-Pro-B-Type Natriuretic Pept 238 pg/mL
[2023-05-11 11:27] LABS: INR 0.9 (<1.2)
[2023-05-11 11:28] LABS: Partial Thromboplastin Time 20.9 sec (22.0-30.0)
[2023-05-11] MEDS: IPRATROPIUM-ALBUTEROL 3 ML NEB INHALATION STA (11:43)
[2023-05-11] MEDS: MAGNESIUM SULFATE-D5W PMX 1 GM in DEXTROSE/WATER 1 100ML.BAG IVPB STA (11:46)
--- NOTE | 2023-05-11 11:56 | XR ---
EXAMINATION TYPE: XR chest 1V portable DATE OF EXAM: 05/11/2023 Comparison: 04/21/2023 Clinical History: 62 year-old female shortness of breath, ana Findings: Heart normal size. Relative upper lung lucencies. Patchy bibasilar opacities, left greater than right have increased, particularly on the left. Impression: COPD with increasing patchy bibasilar opacities, left greater than right. Correlate to exclude develo ping pneumonia.
[2023-05-11] MEDS ORDERED: PNEUMONIA PROTOCOL UTILIZED 1 EACH MISC PO PRN ×2 (12:12→13:41)
[2023-05-11] MEDS ORDERED: IPRATROPIUM-ALBUTEROL 3 ML NEB INHALATION PRN ×2 (12:12→14:41)
[2023-05-11] MEDS ORDERED: ONDANSETRON 4 MG/2 ML VIAL IVP PRN ×2 (12:48→14:40)
[2023-05-11] MEDS ORDERED: KETOROLAC 15 MG/ML 1 ML VIAL IVP PRN (12:48)
[2023-05-11] MEDS ORDERED: NALOXONE 0.4 MG/ML 1 ML VIAL IV PRN (12:48)
[2023-05-11] MEDS: AZITHROMYCIN 500 MG in SODIUM CHLORIDE 0.9% 250 ML IVPB STA (13:04)
--- NOTE | 2023-05-11 13:06 | ED ---
General Adult HPI - General Chief complaint: Shortness of Breath Stated complaint: ana Time Seen by Provider: 05/11/23 10:09 Source: patient, EMS, RN notes reviewed, old records reviewed Mode of arrival: EMS Limitations: no limitations - History of Present Illness Initial comments: Patient is a 62-year-old female with past medical history remarkable for chronic hypoxic respiratory failure on 5 L nasal cannula at home due to COPD. Has had increased work of breathing for last 2-3 days. Has a nonproductive cough. Since her further evaluation at this time. Low-grade fever at home as well. Was placed on CPAP with EMS. Denies any nausea, vomiting, diarrhea. Denies any chest pain. States she attempted home breathing treatment without much success. States she is also feeling very anxious. Presents for further evaluation at this time. - Related Data Home Medications Medication Instructions Recorded Confirmed Albuterol Inhaler [Ventolin Hfa 2 puff INHALATION RT-Q4H PRN 04/09/22 05/11/23 Inhaler] Atorvastatin [Lipitor] 40 mg PO HS 04/09/22 05/11/23 Sertraline [Zoloft] 100 mg PO DAILY 06/15/22 05/11/23 Budesonide/Formoterol Fumarate 2 puff INHALATION RT-BID 07/13/22 05/11/23 [Symbicort 160-4.5 Mcg Inhaler] Ipratropium-Albuterol Nebulize 3 ml INHALATION RT-QID PRN 09/23/22 05/11/23 [Duoneb 0.5 mg-3 mg/3 ml Soln] Dapagliflozin Propanediol [Farxiga] 5 mg PO DAILY 11/19/22 05/11/23 Yupelri 175mcg/3ml 175 mcg INHALATION RT-DAILY 11/19/22 05/11/23 hydrOXYzine HCL [Atarax] 25 mg PO BID 11/19/22 05/11/23 Tiotropium [place] [Spiriva 1 cap INHALATION RT-DAILY 04/19/23 05/11/23 Handihaler] predniSONE 5 mg PO DAILY 04/19/23 05/11/23 lisinopriL 30 mg PO DAILY 05/11/23 05/11/23 Previous Rx's Medication Instructions Recorded Aspirin 81 mg PO DAILY 30 Days #30 tab 04/12/22 Clopidogrel [Plavix] 75 mg PO DAILY 30 Days #30 tab 04/26/23 Metoprolol Succinate (ER) [Toprol 25 mg PO DAILY 30 Days #30 tab 04/26/23 XL] Nitroglycerin Sl Tabs [Nitrostat] 0.4 mg SUBLINGUAL Q5M PRN #30 tab 04/26/23 Allergies Allergy/AdvReac Type Severity Reaction Status Date / Time No Known Allergies Allergy Verified 05/11/23 11:47 Review of Systems ROS Statement: Those systems with pertinent positive or pertinent negative responses have been documented in the HPI. Review of Systems: CONST: Denies fever EYES: Denies blurry vision ENT: Denies nasal congestion C/V: Denies Chest pain RESP: Endorses shortness of breath GI: Denies abdominal pain : Denies dysuria SKIN: Denies rash. MSK: Denies joint pain. NEURO: Denies headache ROS Other: All systems not noted in ROS Statement are negative. Past Medical History Past Medical History: Coronary Artery Disease (CAD), Chest Pain / Angina, COPD, Respiratory Disorder Additional Past Medical History / Comment(s): Chronic hypercapnic respiratory failure, home oxygen at 5L/NC ATC, tracheobronchitis, aortic valve stenosis, chronic low back pain, DJD History of Any Multi-Drug Resistant Organisms: None Reported Past Surgical History: Breast Surgery, Tubal Ligation Additional Past Surgical History / Comment(s): Bilateral breast reductions, bilateral cataract removals. Past Anesthesia/Blood Transfusion Reactions: No Reported Reaction Past Psychological History: Anxiety, Depression Smoking Status: Former smoker Past Alcohol Use History: None Reported Past Drug Use History: None Reported - Past Family History Father History Unknown: Yes Mother Family Medical History: Congestive Heart Failure (CHF), Diabetes Mellitus General Exam - General Exam Comments Initial Comments: General: Appears in respiratory distress. HEAD: Normal with no signs of head trauma. EYES: PERRLA, EOMI, conjunctiva normal, no discharge. ENT: Hearing grossly intact, normal oropharynx. RESPIRATORY: Tight lung sounds bilaterally. Hypoxic and CPAP to upper 80%'s. Patient is being transitioned to BiPAP. Coarse breath sounds in the left lower lung field. Increased work of breathing. Respiratory distress. C/V: Tachycardic. S1 and S2 auscultated,peripheral pulses 2+ and intact throughout ABD: Abd is soft, nontender, nondistended EXT: Normal range of motion, no obvious deformity SKIN: No rashes or lesions observed on exposed skin. NEURO: Alert and oriented x 4. Limitations: no limitations Course Vital Signs 05/11/23 05/11/23 05/11/23 10:07 10:12 10:28 Temperature 99.7 F H Pulse Rate 140 H Respiratory 22 Rate Blood Pressure 137/85 O2 Sat by Pulse 94 L Oximetry Fraction of 60 45 Inspired Oxygen (FIO2) 05/11/23 05/11/23 05/11/23 10:30 10:46 11:10 Temperature Pulse Rate 133 H 128 H Respiratory 22 20 18 Rate Blood Pressure 123/90 125/99 O2 Sat by Pulse 93 L 94 L Oximetry Fraction of Inspired Oxygen (FIO2) 05/11/23 05/11/23 05/11/23 11:41 11:46 11:48 Temperature Pulse Rate 126 H 115 H Respiratory 20 Rate Blood Pressure 105/62 O2 Sat by Pulse 96 Oximetry Fraction of 45 Inspired Oxygen (FIO2) 05/11/23 05/11/23 11:55 13:09 Temperature Pulse Rate 116 H 101 H Respiratory 22 Rate Blood Pressure 114/57 O2 Sat by Pulse 94 L Oximetry Fraction of Inspired Oxygen (FIO2) Medical Decision Making - Medical Decision Making Was pt. sent in by a medical professional or institution (, PA, [employer], urgent care, hospital, or penitentiary...) When possible be specific @ -No Did you speak to anyone other than the patient for history (EMS, parent, family, police, friend...)? What history was obtained from this source @ -No Did you review nursing and triage notes (agree or disagree)? Why? @ -I reviewed and agree with nursing and triage notes Were old charts reviewed (outside hosp., previous admission, EMS record, old EKG, old radiological studies, urgent care reports/EKG's, penitentiary records)? Report findings @ -Old charts reviewed Differential Diagnosis (chest pain, altered mental status, abdominal pain women, abdominal pain men, vaginal bleeding, weakness, fever, dyspnea, syncope, headache, dizziness, GI bleed, back pain, seizure, CVA, palpatations, mental hea lth, musculoskeletal)? @ -Differential Dyspnea: Coronary syndrome, arrhythmia, tamponade, asthma, COPD, pulmonary embolism, pneumonia, pneumothorax, pulmonary effusion, anaphylaxis, diabetic ketoacidosis, flailed chest, pulmonary contusion, diaphragmatic rupture, anemia, neuromu scular, this is not meant to be an all-inclusive list. EKG interpreted by me (3pts min.). @ -As above X-rays interpreted by me (1pt min.). @ -Chest x-ray significant for pneumonia, suspect left lower lobe. Possible also right sided pneumonia. CT interpreted by me (1pt min.). @ -None done U/S interpreted by me (1pt. min.). @ -None done What testing was considered but not performed or refused? (CT, X-rays, U/S, labs)? Why? @ -None What meds were considered but not given or refused? Why? @ -None Did you discuss the management of the patient with other professionals (professionals i.e. , PA, [employer], lab, RT, psych nurse, clinical social work aide, flat bed knitter, teacher, hospital chief executive officer, case hardener)? Give summary @ -I discussed management with Dr. Zamorano who accepted the patient. I discussed with Dr. Rahman evaluated at bedside was in agreement with plan for management. Requested switching antibiotics to Zosyn and Levaquin. He'll take the patient to ICU. Was smoking cessation discussed for >3mins.? @ -No Was critical care preformed (if so, how long)? @ -yes, 36 minutes. Were there social determinants of health that impacted care today? How? (Homelessness, low income, unemployed, alcoholism, drug addiction, transportation, low edu. Level, literacy, decrease access to med. care, senior living, rehab)? @ -No Was there de-escalation of care discussed even if they declined (Discuss DNR or withdrawal of care, Hospice)? DNR status @ -No What co-morbidities impacted this encounter? (DM, HTN, Smoking, COPD, CAD, Cancer, CVA, ARF, Chemo, Hep., AIDS, mental health diagnosis, sleep apnea, morbid obesity)? @ -COPD Was patient admitted / discharged? Hospital course, mention meds given and route, prescriptions, significant lab abnormalities, going to OR and other pertinent info. @ -Based on patient's presentation and physical exam, presents with a COPD exacerbation and suspected upper respiratory illness. Vital signs are markable for tachycardia, hypoxia and room air. Is on baseline 5 L at home. He has sign ificant COPD exacerbation at this time. Patient was placed on BiPAP immediately upon arrival. She is given a 1 L fluid bolus, IV Ativan as patient is anxious, as well as breathing treatment and IV steroids and magnesium. Patient was in agreement this plan. Vital signs otherwise within acceptable limits. Laboratory studies remarkable for leukocytosis of 16. She is a hemolyzed potassium which will be repeated. Lactic acid is within normal limits. Remainder the labs within acceptable limits. Viral swabs negative. Chest x-ray shows probable left lower lobe pneumonia. On BiPAP, patient is improving. Heart rate after Ativan as well as IV fluids is improved now to 90-101 bpm. Blood pressure remained stable. Work of breathing is also improved. I discussed with the patient and she will be admitted to the hospital at this time. She'll be started on IV antibiotics for pneumonia. We'll continue breathing treatments and IV steroids. I spoke with the admitting physician, Dr. Riggs who accepted the admission. I spoke with on-call station mechanic apprentice, Dr. Rahman who accepted the patient to the ICU. He evaluated the patient at bedside and requested we switch antibiotics to Zosyn and Levaquin which was completed. Otherwise he was in agreement with the plan. Undiagnosed new problem with uncertain prognosis? @ -No Drug Therapy requiring intensive monitoring for toxicity (Heparin, Nitro, Insulin, Cardizem)? @ -No Were any procedures done? @ -No Diagnosis/symptom? @ -COPD, hypoxic respiratory failure Acute, or Chronic, or Acute on Chronic? @ -Acute on chronic Uncomplicated (without systemic symptoms) or Complicated (systemic symptoms)? @ -Complicated Side effects of treatment? @ -No Exacerbation, Progression, or Severe Exacerbation? @ -Exacerbation Poses a threat to life or bodily function? How? (Chest pain, [place], [place], pneumonia, PE, COPD, DKA, ARF, appy, cholecystitis, CVA, Diverticulitis, Homicidal, Suicidal, threat to staff... and all critical care pts) @ -Yes Diagnosis/symptom? @ -Pneumonia Acute, or Chronic, or Acute on Chronic? @ -Acute Uncomplicated (without systemic symptoms) or Complicated (systemic symptoms)? @ -Complicated Side effects of treatment? @ -none Exacerbation, Progression, or Severe Exacerbation] @ -no Poses a threat to life or bodily function? @ -Yes - Lab Data Result diagrams: 05/11/23 10:05/11/23 10:28 Lab Results 05/11/23 05/11/23 05/11/23 Range/Units 10: 10: 10: WBC 16.3 H (3.8-10.6) k/uL RBC 3.87 (3.80-5.40) m/uL Hgb 11.9 (11.4-16.0) gm/dL Hct 37.3 (34.0-46.0) % MCV 96.3 (80.0-100.0) fL MCH 30.7 (25.0-35.0) pg MCHC 31.9 (31.0-37.0) g/dL RDW 14.0 (11.5-15.5) % Plt Count 245 (150-450) k/uL MPV 7.2 Neutrophils % 85 % Lymphocytes % 7 % Monocytes % 4 % Eosinophils % 1 % Basophils % 0 % Neutrophils # 13.8 H (1.3-7.7) k/uL Lymphocytes # 1.2 (1.0-4.8) k/uL Monocytes # 0.7 (0-1.0) k/uL Eosinophils # 0.2 (0-0.7) k/uL Basophils # 0.1 (0-0.2) k/uL Hypochromasia Moderate PT 10.0 (10.0-12.5) sec INR 0.9 (<1.2) APTT 20.9 L (22.0-30.0) sec Sodium 136 L (137-145) mmol/L Potassium 6.0 H (3.5-5.1) mmol/L Chloride 96 L (98-107) mmol/L Carbon Dioxide 35 H (22-30) mmol/L Anion Gap 5 mmol/L BUN 18 H (7-17) mg/dL Creatinine 0.48 L (0.52-1.04) mg/dL Est GFR (CKD-EPI)AfAm >90 (>60 ml/min/1.73 sqM) Est GFR (CKD-EPI)NonAf >90 (>60 ml/min/1.73 sqM) Glucose 130 H (74-99) mg/dL Plasma Lactic Acid Ruslan (0.7-2.0) mmol/L Calcium 9.1 (8.4-10.2) mg/dL Magnesium 2.0 (1.6-2.3) mg/dL Total Bilirubin 1.1 (0.2-1.3) mg/dL AST 46 H (14-36) U/L ALT 26 (4-34) U/L Alkaline Phosphatase 104 (38-126) U/L Troponin I (0.000-0.034) ng/mL NT-Pro-B Natriuret Pep 238 pg/mL Total Protein 7.3 (6.3-8.2) g/dL Albumin 3.9 (3.5-5.0) g/dL Urine Color Urine Appearance (Clear) Urine pH (5.0-8.0) Ur Specific [place] (1.001-1.035) Urine Protein (Negative) Urine Glucose (UA) (Negative) Urine Ketones (Negative) Urine Blood (Negative) Urine Nitrite (Negative) Urine Bilirubin (Negative) Urine Urobilinogen (<2.0) mg/dL Ur Leukocyte Esterase (Negative) Influenza Type A (PCR) (Not Detectd) Influenza Type B (PCR) (Not Detectd) RSV (PCR) (Not Detectd) SARS-CoV-2 (PCR) (Not Detectd) 05/11/23 05/11/23 05/11/23 Range/Units 10:28 10:28 10:28 WBC (3.8-10.6) k/uL RBC (3.80-5.40) m/uL Hgb (11.4-16.0) gm/dL Hct (34.0-46.0) % MCV (80.0-100.0) fL MCH (25.0-35.0) pg MCHC (31.0-37.0) g/dL RDW (11.5-15.5) % Plt Count (150-450) k/uL MPV Neutrophils % % Lymphocytes % % Monocytes % % Eosinophils % % Basophils % % Neutrophils # (1.3-7.7) k/uL Lymphocytes # (1.0-4.8) k/uL Monocytes # (0-1.0) k/uL Eosinophils # (0-0.7) k/uL Basophils # (0-0.2) k/uL Hypochromasia PT (10.0-12.5) sec INR (<1.2) APTT (22.0-30.0) sec Sodium (137-145) mmol/L Potassium (3.5-5.1) mmol/L Chloride (98-107) mmol/L Carbon Dioxide (22-30) mmol/L Anion Gap mmol/L BUN (7-17) mg/dL Creatinine (0.52-1.04) mg/dL Est GFR (CKD-EPI)AfAm (>60 ml/min/1.73 sqM) Est GFR (CKD-EPI)NonAf (>60 ml/min/1.73 sqM) Glucose (74-99) mg/dL Plasma Lactic Acid Ruslan 1.4 (0.7-2.0) mmol/L Calcium (8.4-10.2) mg/dL Magnesium (1.6-2.3) mg/dL Total Bilirubin (0.2-1.3) mg/dL AST (14-36) U/L ALT (4-34) U/L Alkaline Phosphatase (38-126) U/L Troponin I 0.033 (0.000-0.034) ng/mL NT-Pro-B Natriuret Pep pg/mL Total Protein (6.3-8.2) g/dL Albumin (3.5-5.0) g/dL Urine Color Light Yellow Urine Appearance Clear (Clear) Urine pH 6.5 (5.0-8.0) Ur Specific [place] 1.018 (1.001-1.035) Urine Protein Negative (Negative) Urine Glucose (UA) 4+ H (Negative) Urine Ketones Negative (Negative) Urine Blood Negative (Negative) Urine Nitrite Negative (Negative) Urine Bilirubin Negative (Negative) Urine Urobilinogen <2.0 (<2.0) mg/dL Ur Leukocyte Esterase Negative (Negative) Influenza Type A (PCR) (Not Detectd) Influenza Type B (PCR) (Not Detectd) RSV (PCR) (Not Detectd) SARS-CoV-2 (PCR) (Not Detectd) 05/11/23 05/11/23 Range/Units 10:28 12:36 WBC (3.8-10.6) k/uL RBC (3.80-5.40) m/uL Hgb (11.4-16.0) gm/dL Hct (34.0-46.0) % MCV (80.0-100.0) fL MCH (25.0-35.0) pg MCHC (31.0-37.0) g/dL RDW (11.5-15.5) % Plt Count (150-450) k/uL MPV Neutrophils % % Lymphocytes % % Monocytes % % Eosinophils % % Basophils % % Neutrophils # (1.3-7.7) k/uL Lymphocytes # (1.0-4.8) k/uL Monocytes # (0-1.0) k/uL Eosinophils # (0-0.7) k/uL Basophils # (0-0.2) k/uL Hypochromasia PT (10.0-12.5) sec INR (<1.2) APTT (22.0-30.0) sec Sodium (137-145) mmol/L Potassium (3.5-5.1) mmol/L Chloride (98-107) mmol/L Carbon Dioxide (22-30) mmol/L Anion Gap mmol/L BUN (7-17) mg/dL Creatinine (0.52-1.04) mg/dL Est GFR (CKD-EPI)AfAm (>60 ml/min/1.73 sqM) Est GFR (CKD-EPI)NonAf (>60 ml/min/1.73 sqM) Glucose (74-99) mg/dL Plasma Lactic Acid Ruslan 1.1 (0.7-2.0) mmol/L Calcium (8.4-10.2) mg/dL Magnesium (1.6-2.3) mg/dL Total Bilirubin (0.2-1.3) mg/dL AST (14-36) U/L ALT (4-34) U/L Alkaline Phosphatase (38-126) U/L Troponin I (0.000-0.034) ng/mL NT-Pro-B Natriuret Pep pg/mL Total Protein (6.3-8.2) g/dL Albumin (3.5-5.0) g/dL Urine Color Urine Appearance (Clear) Urine pH (5.0-8.0) Ur Specific [place] (1.001-1.035) Urine Protein (Negative) Urine Glucose (UA) (Negative) Urine Ketones (Negative) Urine Blood (Negative) Urine Nitrite (Negative) Urine Bilirubin (Negative) Urine Urobilinogen (<2.0) mg/dL Ur Leukocyte Esterase (Negative) Influenza Type A (PCR) Not Detected (Not Detectd) Influenza Type B (PCR) Not Detected (Not Detectd) RSV (PCR) Not Detected (Not Detectd) SARS-CoV-2 (PCR) Not Detected (Not Detectd) - EKG Data -: EKG Interpreted by Me EKG Comments: 12-lead Electrocardiogram Interpretation Note EKG was reviewed and interpreted by myself. 12-lead ECG performed at 1020 is interpreted by me as revealing sinus tachycardia at a rate of 136 beats per minute. Left axis deviation. MD interval is 135 ms, QRS duration is 92 ms, QTc is 352 ms.. There were no significant acute ST or T wave abnormalities to suggest myocardial ischemia or injury. R wave progression across the precordium was delayed. By my interpretation this EKG is non-diagnostic for acute ischemia. Critical Care Time Critical Care Time: Yes Total Critical Care Time: 36 Disposition Clinical Impression: COPD (chronic obstructive pulmonary disease), Pneumonia, Hypoxic respiratory failure Disposition: ADMITTED IP TO THIS HOSP Condition: Serious Time of Disposition: 12:45
[2023-05-11 13:26] LABS: Appearance,Urine Clear (Clear); Bilirubin,Urine Negative (Negative); Blood,Urine Negative (Negative); Color,Urine Light Yellow; Glucose,Urine (UA) 4+ (Negative); Ketones,Urine Negative (Negative); Leukocyte Esterase,Urine Negative (Negative); Nitrite,Urine Negative (Negative); PH, Urine 6.5 (5.0-8.0); Protein,Urine Negative (Negative); Specific Gravity,Urine 1.018 (1.001-1.035); Urobilinogen,Urine <2.0 mg/dL (<2.0)
[2023-05-11 14:29] LABS: Glucose,Whole Blood 162 mg/dL (70-110)
[2023-05-11] MEDS ORDERED: Potassium Replacement Protocol 1 EACH MISC MISCELLANE PRN (14:37)
[2023-05-11] MEDS: LEVOFLOXACIN 750MG-D5W PMX 750 MG in DEXTROSE/WATER 1 150ML.BAG IVPB STA (14:37)
[2023-05-11] MEDS ORDERED: Magnesium Replacement Protocol 1 EACH MISC MISCELLANE PRN (14:37)
[2023-05-11] MEDS ORDERED: ACETAMINOPHEN IV (For NPO) 1,000 MG in EMPTY BAG 1 BAG IVPB PRN (14:40)
[2023-05-11] MEDS ORDERED: hydrALAZINE HCL 20 MG/ML 1 ML VIAL IVP PRN (14:40)
[2023-05-11] MEDS ORDERED: guaiFENesin-Coden 100-10MG/5ML 10 ML CUP PO PRN (14:40)
[2023-05-11] MEDS ORDERED: NON FORMULARY DRUG (Albuterol Inhaler 90 MCG Puff) INHALATION PRN (14:41)
[2023-05-11] MEDS: PIPERACILLIN-TAZOBACTAM 3.375 GM in SODIUM CHLORIDE 0.9% 100 ML IVPB STA (14:44)
--- NOTE | 2023-05-11 15:34 | P.HPIM ---
History of Present Illness H&P Date: 05/11/23 Chief Complaint: Shortness of breath * 62-year-old patient with past medical history significant for COPD severe with FEV1 less than 30%, chronic hypoxic respiratory failure on 5 L of oxygen at baseline, we couldn't history of COPD exacerbation recently discharged in April 2023, moderate severe aortic stenosis, chronic congestive heart failure with ejection fraction of 45%, pulmonary hypertension, ascending thoracic aneurysm, history of coronary artery disease, history of anxiety, depression, chronic back pain presents to the emergency department with complains of shortness of breath. Patient states she has been having worsening symptoms for the last 2 or 3 days. Patient was discharged on 04/27/2023 admitted with similar presentation. Patient states she has been having low-grade fever at home. EMS was called and patient was placed on noninvasive ventilation for respiratory distress. Patient states she took multiple breathing treatments at home without any improvement. Patient was anxious at the time of presentation in ED. Patient was started on IV antib iotics including Zosyn and Levaquin in ED. Patient was placed on BiPAP in ER was given 1 L of fluid bolus, due to severe anxiety patient is a 1 dose of IV Ativan and breathing treatments. * Review of blood work showed leukocytosis with WBC 16.3 hemoglobin 11.9 platelet count of 244 serum chemistry showed sodium 136 potassium of 6 chloride 96 BUN 18 creatinine 0.48, blood sample was considered hemolyzed and repeat sample was ordered N-terminal proBNP 238, albumin 3.9 patient tested negative for RSV, Covid, influenza due to severe respiratory distress patient admitted to medical ICU with consultation from medical ICU team REVIEW OF SYSTEMS: Shortness of breath, respiratory distress, cough CONSTITUTIONAL: No fever, no malaise, no fatigue. HEENT: No recent visual problems or hearing problems. Denied any sore throat. CARDIOVASCULAR: No chest pain, orthopnea, PND, no palpitations, no syncope. PULMONARY: Shortness of breath, respiratory distress, cough GASTROINTESTINAL: No diarrhea, no nausea, no vomiting, no abdominal pain. NEUROLOGICAL: No headaches, no weakness, no numbness. HEMATOLOGICAL: Denies any bleeding or petechiae. GENITOURINARY: Denies any burning micturition, frequency, or urgency. MUSCULOSKELETAL/RHEUMATOLOGICAL: Denies any joint pain, swelling, or any muscle pain. ENDOCRINE: Denies any polyuria or polydipsia. PHYSICAL EXAMINATION: GENERAL: The patient is alert and oriented x 3, no malaise, anxious on BiPAP, appears in distress HEENT: Pupils are round and equally reacting to light. EOMI Normocephalic, atraumatic. No pharyngeal erythema. No thyromegaly. CARDIOVASCULAR: S1 and S2 present. No murmurs, rubs, or gallops. PULMONARY: Decreased breath sounds bilaterally wheezing audible ABDOMEN: Soft, nontender, nondistended, normoactive bowel sounds. No palpable organomegaly. MUSCULOSKELETAL: No joint swelling or deformity. EXTREMITIES: No cyanosis, clubbing, or pedal edema. NEUROLOGICAL: Gross neurological examination did not reveal any focal deficits. SKIN: No rashes. Past Medical History Past Medical History: Coronary Artery Disease (CAD), Chest Pain / Angina, COPD, Respiratory Disorder Additional Past Medical History / Comment(s): Chronic hypercapnic respiratory failure, home oxygen at 5L/NC ATC, tracheobronchitis, aortic valve stenosis, chronic low back pain, DJD History of Any Multi-Drug Resistant Organisms: None Reported Past Surgical History: Breast Surgery, Tubal Ligation Additional Past Surgical History / Comment(s): Bilateral breast reductions, bilateral cataract removals. Past Anesthesia/Blood Transfusion Reactions: No Reported Reaction Past Psychological History: Anxiety, Depression Smoking Status: Former smoker Past Alcohol Use History: None Reported Past Drug Use History: None Reported - Past Family History Father History Unknown: Yes Mother Family Medical History: Congestive Heart Failure (CHF), Diabetes Mellitus Medications and Allergies Home Medications Medication Instructions Recorded Confirmed Type Albuterol Inhaler [Ventolin Hfa 2 puff INHALATION RT-Q4H PRN 04/09/22 05/11/23 History Inhaler] Atorvastatin [Lipitor] 40 mg PO HS 04/09/22 05/11/23 History Aspirin 81 mg PO DAILY 30 Days #30 tab 04/12/22 05/11/23 Rx Sertraline [Zoloft] 100 mg PO DAILY 06/15/22 05/11/23 History Budesonide/Formoterol Fumarate 2 puff INHALATION RT-BID 07/13/22 05/11/23 History [Symbicort 160-4.5 Mcg Inhaler] Ipratropium-Albuterol Nebulize 3 ml INHALATION RT-QID PRN 09/23/22 05/11/23 History [Duoneb 0.5 mg-3 mg/3 ml Soln] Dapagliflozin Propanediol [Farxiga] 5 mg PO DAILY 11/19/22 05/11/23 History Yupelri 175mcg/3ml 175 mcg INHALATION RT-DAILY 11/19/22 05/11/23 History hydrOXYzine HCL [Atarax] 25 mg PO BID 11/19/22 05/11/23 History Tiotropium [place] [Spiriva 1 cap INHALATION RT-DAILY 04/19/23 05/11/23 History Handihaler] predniSONE 5 mg PO DAILY 04/19/23 05/11/23 History Clopidogrel [Plavix] 75 mg PO DAILY 30 Days #30 tab 04/26/23 05/11/23 Rx Metoprolol Succinate (ER) [Toprol 25 mg PO DAILY 30 Days #30 tab 04/26/23 05/11/23 Rx XL] Nitroglycerin Sl Tabs [Nitrostat] 0.4 mg SUBLINGUAL Q5M PRN #30 tab 04/26/23 05/11/23 Rx lisinopriL 30 mg PO DAILY 05/11/23 05/11/23 History Allergies Allergy/AdvReac Type Severity Reaction Status Date / Time No Known Allergies Allergy Verified 05/11/23 11:47 Physical Exam Vitals: Vital Signs Temp Pulse Resp BP Pulse Ox FiO2 05/11/23 14:38 45 05/11/23 13:45 92 22 93/61 95 05/11/23 13:09 101 H 22 114/57 94 L 05/11/23 11:55 116 H 05/11/23 11:48 115 H 20 105/62 96 05/11/23 11:46 126 H 05/11/23 11:41 45 05/11/23 11:10 128 H 18 125/99 94 L 05/11/23 10:46 133 H 20 123/90 93 L 05/11/23 10:30 22 05/11/23 10:28 45 05/11/23 10:12 60 05/11/23 10:07 99.7 F H 140 H 22 137/85 94 L Intake and Output 05/10/23 05/11/23 05/11/23 22:59 06:59 14:59 Other: Weight 63.503 kg Results CBC & Chem 7: 05/11/23 10:28 05/11/23 14:18 Labs: Abnormal Lab Results - Last 24 Hours (Table) 05/11/23 05/11/23 05/11/23 Range/Units 10:28 10:28 10:28 WBC 16.3 H (3.8-10.6) k/uL Neutrophils # 13.8 H (1.3-7.7) k/uL APTT 20.9 L (22.0-30.0) sec Sodium 136 L (137-145) mmol/L Potassium 6.0 H (3.5-5.1) mmol/L Chloride 96 L (98-107) mmol/L Carbon Dioxide 35 H (22-30) mmol/L BUN 18 H (7-17) mg/dL Creatinine 0.48 L (0.52-1.04) mg/dL Glucose 130 H (74-99) mg/dL POC Glucose (mg/dL) (70-110) mg/dL AST 46 H (14-36) U/L Urine Glucose (UA) (Negative) 05/11/23 05/11/23 Range/Units 10:28 14:26 WBC (3.8-10.6) k/uL Neutrophils # (1.3-7.7) k/uL APTT (22.0-30.0) sec Sodium (137-145) mmol/L Potassium (3.5-5.1) mmol/L Chloride (98-107) mmol/L Carbon Dioxide (22-30) mmol/L BUN (7-17) mg/dL Creatinine (0.52-1.04) mg/dL Glucose (74-99) mg/dL POC Glucose (mg/dL) 162 H (70-110) mg/dL AST (14-36) U/L Urine Glucose (UA) 4+ H (Negative) Assessment and Plan Assessment: Assessment and plan * Acute on chronic hypoxic respiratory failure with COPD exacerbation * Multifocal pneumonia * Coronary artery disease * History of chronic congestive heart failure systolic dysfunction * Advanced COPD * History of anxiety/depression * History of hypertension * History of dyslipidemia * Recurrent hospitalization for COPD/advance COPD * In regards to acute hypoxic respiratory failure continue patient on noninva sive ventilation, pulmonary medicine consulted continue breathing treatments IV Solu-Medrol broad-spectrum antibiotic on Zosyn and doxycycline * In regards to multifocal pneumonia follow-up on urine Legionella, continue IV antibiotic, IV steroids, breathing treatment * In regards to history of coronary artery disease continue patient on aspirin, Plavix, metoprolol, withholding parameters * In regards to history of hypertension patient noted be hypotensive, lisinopril placed on hold continue metoprolol with holding pattern meatus * CODE STATUS is full code prognosis remains guarded secondary to recurrent hospitalization with similar presentation Time with Patient: Greater than 30
[2023-05-11] MEDS: IPRATROPIUM-ALBUTEROL 3 ML NEB INHALATION SCH (15:40)
[2023-05-11] MEDS: PANTOPRAZOLE 40 MG/10 ML VIAL IV SCH (15:58)
[2023-05-11] MEDS: methylPREDNISolone SOD SUCCI 40 MG/ML 1 ML VIAL IV SCH (15:58)
[2023-05-11] MEDS: HEPARIN SODIUM,PORCINE 5,000 UNIT/ML 1 ML VIAL SQ SCH (15:58)
--- NOTE | 2023-05-11 16:30 | P.CNPUL ---
History of Present Illness Consult date: 05/11/23 Reason for consult: dyspnea, COPD History of present illness: 62-year-old female patient was brought into the ED with diminished level of consciousness, respiratory distress and hypercapnic respiratory failure. The patient is known to have chronic hypoxic/hypercapnic respiratory failure due to advanced COPD and she has had multiple aspirations the past for hypoxic and hypercapnic respiratory failure and her last hospital this was approximately 3 weeks ago and the patient was supported with BiPAP therapy with subsequent improvement. She is a nonsmoker for now. She has quit smoking. She did have a low-grade fever at home. No nausea or emesis. Information was provided by the hospital at the bedside. Chest exit shows a left lower lobe consolidation suggestive of a pneumonia. The patient was given Rocephin and Zithromax in the emergency department. The patient was started also on bronchodilators and steroids. The patient is currently on a BiPAP at a pressure of 12/5 cm of water and FiO2 is being titrated to maintain saturation above 90%. After she arrived to the intensive care unit, the patient was given a blood gas that showed a pH of 7.26 with a pCO2 of 72 and pO2 of 79 and this was done on a BiPAP of 12/5 with an FiO2 of 45%. Her potassium dropped down to 4.8 from 6 with a BUN of 18 and a creatinine of 0.4. UA showed +4 glucose. The viral panel is negative. The white cycles of 16.3. Chest x-ray showing a left lower lobe consolidation. In terms of her COPD, the patient has advanced O2 dependent COPD and she is typically on 5 L at home in her FEV1 is less than 30% of predicted. CT angiogram that was done back in March 2023 showed no evidence of any pulmonary embolism. The patient has enlarged pulmonary artery trunk consistent with pulmonary hypertension. She has moderate calcification of the aortic valve. A fusiform aneurysmal dilatation of the ascending aorta measuring 5 x 4.9 cm in size. She also has old right-sided rib fractures. There is diffuse emphysematous changes bilaterally and few subcentimeter pulmonary nodules. Noted during her previous hospitalization, the patient had elevated troponins. Based on that, a cardiac catheterization was done and the patient was found to have mild disease involving the LAD in the order of 40%, RCA had a focal proximal stenosis in the order of 95% and the patient had a drug-eluting stent placed in the RCA 1. Most recent echocardiogram from October 2022 also showed severe aortic stenosis, left ventricle ejection fraction of 45% with a RVSP of 39. Review of Systems ROS unobtainable: due to mental status Past Medical History Past Medical History: Coronary Artery Disease (CAD), Chest Pain / Angina, COPD, Respiratory Disorder Additional Past Medical History / Comment(s): Chronic hypercapnic respiratory failure, home oxygen at 5L/NC ATC, tracheobronchitis, aortic valve stenosis, chronic low back pain, DJD History of Any Multi-Drug Resistant Organisms: None Reported Past Surgical History: Breast Surgery, Tubal Ligation Additional Past Surgical History / Comment(s): Bilateral breast reductions, bilateral cataract removals. Past Anesthesia/Blood Transfusion Reactions: No Reported Reaction Smoking Status: Former smoker - Past Family History Father History Unknown: Yes Mother Family Medical History: Congestive Heart Failure (CHF), Diabetes Mellitus Medications and Allergies Home Medications Medication Instructions Recorded Confirmed Type Albuterol Inhaler [Ventolin Hfa 2 puff INHALATION RT-Q4H PRN 04/09/22 05/11/23 History Inhaler] Atorvastatin [Lipitor] 40 mg PO HS 04/09/22 05/11/23 History Aspirin 81 mg PO DAILY 30 Days #30 tab 04/12/22 05/11/23 Rx Sertraline [Zoloft] 100 mg PO DAILY 06/15/22 05/11/23 History Budesonide/Formoterol Fumarate 2 puff INHALATION RT-BID 07/13/22 05/11/23 History [Symbicort 160-4.5 Mcg Inhaler] Ipratropium-Albuterol Nebulize 3 ml INHALATION RT-QID PRN 09/23/22 05/11/23 History [Duoneb 0.5 mg-3 mg/3 ml Soln] Dapagliflozin Propanediol [Farxiga] 5 mg PO DAILY 11/19/22 05/11/23 History Yupelri 175mcg/3ml 175 mcg INHALATION RT-DAILY 11/19/22 05/11/23 History hydrOXYzine HCL [Atarax] 25 mg PO BID 11/19/22 05/11/23 History Tiotropium [place] [Spiriva 1 cap INHALATION RT-DAILY 04/19/23 05/11/23 History Handihaler] predniSONE 5 mg PO DAILY 04/19/23 05/11/23 History Clopidogrel [Plavix] 75 mg PO DAILY 30 Days #30 tab 04/26/23 05/11/23 Rx Metoprolol Succinate (ER) [Toprol 25 mg PO DAILY 30 Days #30 tab 04/26/23 05/11/23 Rx XL] Nitroglycerin Sl Tabs [Nitrostat] 0.4 mg SUBLINGUAL Q5M PRN #30 tab 04/26/23 05/11/23 Rx lisinopriL 30 mg PO DAILY 05/11/23 05/11/23 History Allergies Allergy/AdvReac Type Severity Reaction Status Date / Time No Known Allergies Allergy Verified 05/11/23 11:47 Physical Exam Vitals: Vital Signs Temp Pulse Resp BP Pulse Ox FiO2 05/11/23 15:56 97 05/11/23 15:43 97 05/11/23 14:38 45 05/11/23 13:45 92 22 93/61 95 05/11/23 13:09 101 H 22 114/57 94 L 05/11/23 11:55 116 H 05/11/23 11:48 115 H 20 105/62 96 05/11/23 11:46 126 H 05/11/23 11:41 45 05/11/23 11:10 128 H 18 125/99 94 L 05/11/23 10:46 133 H 20 123/90 93 L 05/11/23 10:30 22 05/11/23 10:28 45 05/11/23 10:12 60 05/11/23 10:07 99.7 F H 140 H 22 137/85 94 L Intake and Output 05/11/23 05/11/23 05/11/23 06:59 14:59 22:59 Other: Weight 63.503 kg 63.503 kg GENERAL EXAM: Alert, 62-year-old obese white female, the patient is a moderate to severe respiratory distress even while being on a BiPAP. The patient has also diminished level of consciousness related to CO2 narcosis. The patient is currently on a BiPAP at a pressure of 12/5 cm of water with an FiO2 of 45%. She has possible painful stimulation. She was also painful sensation all 4 extremities. No focal neurological deficits. HEAD: Normocephalic and atraumatic EYES: Normal reaction of pupils, equal size. NOSE: Clear with pink turbinates. THROAT: No erythema or exudates. NECK: No masses, no JVD. CHEST: No chest wall deformity. LUNGS: Equal air entry with expiratory wheezes heard throughout, breath sounds are markedly diminished bilaterally. CVS: S1 and S2 normal with no audible murmur, regular rhythm. No extra heart sounds. Tachycardic, cardiac rhythm is sinus. ABDOMEN:Obese abdomen, no hepatosplenomegaly, active bowel sounds, no guarding or rigidity. SPINE: No scoliosis or deformity SKIN: No rashes CENTRAL NERVOUS SYSTEM: No focal deficits, tone is normal in all 4 extremities. EXTREMITIES: There is no peripheral edema, clubbing, or cyanosis. Peripheral pulses are intact. Results - Laboratory Findings CBC and BMP: 05/11/23 10:28 05/11/23 14:18 PT/INR, D-dimer PT 10.0 sec (10.0-12.5) 05/11/23 10:28 INR 0.9 (<1.2) 05/11/23 10:28 Abnormal lab findings: Abnormal Labs 05/11/23 05/11/23 05/11/23 10:28 10:28 10:28 WBC 16.3 H Neutrophils # 13.8 H APTT 20.9 L Sodium 136 L Potassium 6.0 H Chloride 96 L Carbon Dioxide 35 H BUN 18 H Creatinine 0.48 L Glucose 130 H POC Glucose (mg/dL) AST 46 H Urine Glucose (UA) 05/11/23 05/11/23 10:28 14:26 WBC Neutrophils # APTT Sodium Potassium Chloride Carbon Dioxide BUN Creatinine Glucose POC Glucose (mg/dL) 162 H AST Urine Glucose (UA) 4+ H - Diagnostic Findings Chest x-ray: image reviewed Assessment and Plan Plan: Acute on chronic hypoxic and hypercapnic respiratory failure related to COPD exacerbation, currently on a BiPAP. The patient is an evidence of a left lower lobe consolidation which is a new finding and strongly suspect a left lower lobe pneumonia, could be potentially hospital-acquired based on recurrent and previous hospitalizations. The blood gases showing hypercapnic respiratory failure with ongoing respiratory acidosis. The patient is a DNR/DNI CODE STATUS. Left lower lobe pneumonia The patient level of consciousness, likely secondary to CO2 narcosis Advanced COPD with an FEV1 of less than 30% of predicted Chronic hypoxic respiratory failure maternal O2 at 5 L per minute nasal cannula Coronary artery disease with recent non-STEMI and the patient is post stenting of the RCA. The patient also has a residual 40% involving the LAD Chronic lower back pain Moderate to severe aortic stenosis with a peak gradient of 69 and a mean gradient of 46 and the estimated valve area of 0.9 Systolic heart failure with an ejection fraction of 45% Secondary pulmonary hypertension Ascending thoracic aortic aneurysm measuring 4.9 x 5 cm in size Plan Condition is critical and the patient will be admitted to the intensive care unit Continue BiPAP at a pressure of 12/5 and FiO2 is at 45%. We'll gradually wean down FiO2. The patient is to stay on a BiPAP and the patient is exchanging adequate volumes right now and wishes anticipate improvement in her hypercapnic yesterday failure Cover the patient with a combination of Mirtha and Anshu regarding the possibility of hospital-acquired left lower lobe pneumonia Continue IV Solu-Medrol 60 mg every 6 hours Give Lasix 40 mg IV push Lovenox 40 mg for DVT prophylaxis Continue aspirin and Plavix once the patient is more awake and she is able to swallow the medications. Continue [facility] Performance on Pulmicort neb treatments twice a day Condition is critical and we'll continue to follow. She is a DNR/DNI CODE STATUS on previous admissions. Her CODE STATUS will be reevaluated and accurately reported in the medical records. Time with Patient: Greater than 30
[2023-05-11] MEDS ORDERED: VANCOMYCIN IV PER PHARMACY 1 EACH MISC MISCELLANE PRN (16:31)
[2023-05-11 16:34] LABS: Allen Test Performed? Yes
[2023-05-11 16:35] LABS: ABG HCO3 32 mmol/L (21-25); ABG PCO2 72 mmHg (35-45); ABG PH 7.26 (7.35-7.45); ABG PO2 79 mmHg (83-108)
[2023-05-11 16:36] LABS: ABG Base Excess 4.7 mmol/L; ABG Oxygen Saturation 95.2 % (94-97); ABG TCO2 34 mmol/L (19-24)
[2023-05-11] MEDS: methylPREDNISolone SOD SUCCI 125 MG/2 ML VIAL IV SCH (17:26)
[2023-05-11] MEDS: ENOXAPARIN 40 MG/0.4 ML SYRINGE SQ SCH (17:27)
[2023-05-11] MEDS: VANCOMYCIN 1,000 MG in SODIUM CHLORIDE 0.9% 250 ML IVPB SCH (17:42)
[2023-05-11] MEDS: FUROSEMIDE 10 MG/ML 4 ML VIAL IV STA (17:42)
[2023-05-11] MEDS: BUDESONIDE 0.5 MG/2 ML NEBU INHALATION SCH (19:47)
[2023-05-11] MEDS: FORMOTEROL FUMARATE 20 MCG/2 ML NEBU INHALATION SCH (19:47)
[2023-05-11] MEDS ORDERED: SYMBICORT 160-4.5 MCG INHALER INHALATION SCH (20:00)
[2023-05-11] MEDS: hydrOXYzine HCL 25 MG TAB PO SCH (20:19)
[2023-05-11] MEDS: guaiFENesin 600 MG TABLET.ER PO SCH (20:20)
[2023-05-11] MEDS: ATORVASTATIN 40 MG TAB PO SCH (20:20)
[2023-05-11] MEDS: LORazepam 2 MG/ML INJ IV PRN (20:21)
[2023-05-11] MEDS ORDERED: DOXYCYCLINE 100 MG in SODIUM CHLORIDE 0.9% 100 ML IVPB SCH (21:00)
[2023-05-11] MEDS: PIPERACILLIN-TAZOBACTAM 3.375 GM in SODIUM CHLORIDE 0.9% 100 ML IVPB SCH (23:12)
[2023-05-11 23:49] LABS: Glucose,Whole Blood 199 mg/dL (70-110)
[2023-05-12 05:02] LABS: Basophils % (A) 0 %; Eosinophils # (A) 0.1 k/uL (0-0.7); Eosinophils % (A) 0 %; HCT 32.3 % (34.0-46.0); HGB 10.3 gm/dL (11.4-16.0); Hypochromasia Moderate; Lymphocytes # (A) 0.4 k/uL (1.0-4.8); Lymphocytes % (A) 3 %; MCHC 31.9 g/dL (31.0-37.0); Mean Platelet Volume 7.3; Monocytes # (A) 0.4 k/uL (0-1.0); Monocytes % (A) 3 %; Neutrophils # (A) 13.5 k/uL (1.3-7.7); Neutrophils % (A) 94 %; Platelet Count 226 k/uL (150-450); RBC 3.33 m/uL (3.80-5.40); RDW 14.1 % (11.5-15.5); WBC 14.3 k/uL (3.8-10.6)
[2023-05-12 05:15] LABS: African American GFR (CKD) >90 (>60 ml/min/1.73 sqM); Anion Gap 3 mmol/L; Blood Urea Nitrogen 18 mg/dL (7-17); Calcium 8.1 mg/dL (8.4-10.2); Carbon Dioxide 32 mmol/L (22-30); Chloride 100 mmol/L (98-107); Glucose 172 mg/dL (74-99); Non-African American GFR(CKD) >90 (>60 ml/min/1.73 sqM); Sodium 135 mmol/L (137-145)
[2023-05-12 06:44] LABS: Glucose,Whole Blood 173 mg/dL (70-110)
--- NOTE | 2023-05-12 07:49 | XR ---
EXAMINATION TYPE: XR chest 1V portable DATE OF EXAM: 05/12/2023 Comparison: 05/11/2023 Clinical History: 62-year-old female shortness of breath Findings: Heart normal size. Hyperinflation. Relative abnormal lucencies. Patchy bibasilar opacities. Aeration shows slight improvement on the left. Impression: COPD and ongoing bibasilar opacities, left greater than right. Aeration shows slight improvement on t he left.
[2023-05-12] MEDS ORDERED: NON FORMULARY DRUG (Tiotropium Bromide [Spiriva Handihaler] 18 MCG Cap.W.Dev) INHALATION SCH (08:00)
[2023-05-12] MEDS: ASPIRIN 81 MG PO SCH (08:24)
[2023-05-12] MEDS: SERTRALINE 100 MG TAB PO SCH (08:24)
[2023-05-12] MEDS: METOPROLOL SUCCINATE (ER) 25 MG TAB.ER.24H PO SCH (08:24)
[2023-05-12] MEDS: CLOPIDOGREL 75 MG TAB PO SCH (08:24)
[2023-05-12] MEDS ORDERED: AZITHROMYCIN 500 MG TAB PO SCH (09:00)
[2023-05-12] MEDS ORDERED: lisinopriL 10 MG TAB PO SCH (09:00)
--- NOTE | 2023-05-12 11:59 | P.PN ---
Subjective Progress Note Date: 05/12/23 * 62-year-old patient with past medical history significant for COPD severe with FEV1 less than 30%, chronic hypoxic respiratory failure on 5 L of oxygen at baseline, we couldn't history of COPD exacerbation recently discharged in April 2023, moderate severe aortic stenosis, chronic congestive heart fail ure with ejection fraction of 45%, pulmonary hypertension, ascending thoracic aneurysm, history of coronary artery disease, history of anxiety, depression, chronic back pain presents to the emergency department with complains of shortness of breath. Patient states she has been having worsening symptoms for the last 2 or 3 days. Patient was discharged on 04/27/2023 admitted with similar presentation. Patient states she has been having low-grade fever at home. EMS was called and patient was placed on noninvasive ventilation for respiratory distress. Patient states she took multiple breathing treatments at home without any improvement. Patient was anxious at the time of presentation in ED. Patient was started on IV antibiotics including Zosyn and Levaquin in ED. Patient was placed on BiPAP in ER was given 1 L of fluid bolus, due to severe anxiety patient is a 1 dose of IV Ativan and breathing treatments. * Review of blood work showed leukocytosis with WBC 16.3 hemoglobin 11.9 platele t count of 244 serum chemistry showed sodium 136 potassium of 6 chloride 96 BUN 18 creatinine 0.48, blood sample was considered hemolyzed and repeat sample was ordered N-terminal proBNP 238, albumin 3.9 patient tested negative for RSV, Covid, influenza due to severe respiratory distress patient admitted to medical ICU with consultation from medical ICU team * 05/12/2023: Patient seen and evaluated bedside, at bedside patient remains on BiPAP, CBC shows improvement in WBC count, hemoglobin 10.3, serum chemistry reviewed, renal function stable, patient is alert and oriented 4 REVIEW OF SYSTEMS: Shortness of breath, respiratory distress, cough improved CONSTITUTIONAL: No fever, no malaise, no fatigue. HEENT: No recent visual problems or hearing problems. Denied any sore throat. CARDIOVASCULAR: No chest pain, orthopnea, PND, no palpitations, no syncope. PULMONARY: Shortness of breath, respiratory distress, cough GASTROINTESTINAL: No diarrhea, no nausea, no vomiting, no abdominal pain. NEUROLOGICAL: No headaches, no weakness, no numbness. HEMATOLOGICAL: Denies any bleeding or petechiae. GENITOURINARY: Denies any burning micturition, frequency, or urgency. MUSCULOSKELETAL/RHEUMATOLOGICAL: Denies any joint pain, swelling, or any muscle pain. ENDOCRINE: Denies any polyuria or polydipsia. PHYSICAL EXAMINATION: GENERAL: The patient is alert and oriented x 3, remains on BiPAP however respiratory distress is improved HEENT: Pupils are round and equally reacting to light. EOMI Normocephalic, atraumatic. No pharyngeal erythema. No thyromegaly. CARDIOVASCULAR: S1 and S2 present. No murmurs, rubs, or gallops. PULMONARY: Improved breath sounds bilaterally ABDOMEN: Soft, nontender, nondistended, normoactive bowel sounds. No palpable organomegaly. MUSCULOSKELETAL: No joint swelling or deformity. EXTREMITIES: No cyanosis, clubbing, or pedal edema. NEUROLOGICAL: Gross neurological examination did not reveal any focal deficits. SKIN: No rashes. Objective - Vital Signs Vital signs: Vital Signs Temp 98.4 F 05/12/23 08:00 Pulse 99 05/12/23 11:45 Resp 22 05/12/23 09:00 BP 130/85 05/12/23 09:00 Pulse Ox 96 05/12/23 09:00 FiO2 45 05/12/23 11:35 Intake & Output 05/11/23 05/12/23 05/12/23 18:59 06:59 18:59 Intake Total 875 1175 500 Output Total 0 1550 0 Balance 875 -375 500 Weight 63.503 kg 100.4 kg Intake: IV 1100 500 Piperacillin-Tazobactam 3 100 100 .375 gm In Sodium Chloride 0.9% 100 ml @ 25 mls/hr IVPB Q8HR [facility] Rx# :[id number] Sodium Chloride 0.9% 1, 750 150 000 ml @ 75 mls/hr IV . [id number] [facility] Rx#:[id number] Vancomycin 1,000 mg In 250 250 Sodium Chloride 0.9% 250 ml @ 125 mls/hr IVPB Q8HR [facility] Rx#:[id number] Intake, IV Titration 875 75 Amount Levofloxacin 750Mg-D5w 150 Pmx 750 mg In Dextrose/ Water 1 150ml.bag @ 100 mls/hr IVPB ONCE [facility] Rx#: [id number] Piperacillin-Tazobactam 3 100 .375 gm In Sodium Chloride 0.9% 100 ml @ 25 mls/hr IVPB Q8HR [facility] Rx# :[id number] Sodium Chloride 0.9% 1, 375 75 000 ml @ 75 mls/hr IV . [id number] [facility] Rx#:[id number] Vancomycin 1,000 mg In 250 Sodium Chloride 0.9% 250 ml @ 125 mls/hr IVPB Q8HR [facility] Rx#:[id number] Output: Urine 0 1550 0 Other: Voiding Method External Catheter External Catheter External Catheter # Voids 1 - Labs CBC & Chem 7: 05/12/23 04:42 05/12/23 04:42 Labs: Abnormal Lab Results - Last 24 Hours (Table) 05/11/23 05/11/23 05/11/23 Range/Units 10:28 14:26 14:37 WBC (3.8-10.6) k/uL RBC (3.80-5.40) m/uL Hgb (11.4-16.0) gm/dL Hct (34.0-46.0) % Neutrophils # (1.3-7.7) k/uL Lymphocytes # (1.0-4.8) k/uL ABG pH 7.26 L (7.35-7.45) ABG pCO2 72 H* (35-45) mmHg ABG pO2 79 L (83-108) mmHg ABG HCO3 32 H (21-25) mmol/L ABG Total CO2 34 H (19-24) mmol/L Sodium (137-145) mmol/L Carbon Dioxide (22-30) mmol/L BUN (7-17) mg/dL Glucose (74-99) mg/dL POC Glucose (mg/dL) 162 H (70-110) mg/dL Calcium (8.4-10.2) mg/dL Urine Glucose (UA) 4+ H (Negative) 05/11/23 05/12/23 05/12/23 Range/Units 23:47 04:42 04:42 WBC 14.3 H (3.8-10.6) k/uL RBC 3.33 L (3.80-5.40) m/uL Hgb 10.3 L (11.4-16.0) gm/dL Hct 32.3 L (34.0-46.0) % Neutrophils # 13.5 H (1.3-7.7) k/uL Lymphocytes # 0.4 L (1.0-4.8) k/uL ABG pH (7.35-7.45) ABG pCO2 (35-45) mmHg ABG pO2 (83-108) mmHg ABG HCO3 (21-25) mmol/L ABG Total CO2 (19-24) mmol/L Sodium 135 L (137-145) mmol/L Carbon Dioxide 32 H (22-30) mmol/L BUN 18 H (7-17) mg/dL Glucose 172 H (74-99) mg/dL POC Glucose (mg/dL) 199 H (70-110) mg/dL Calcium 8.1 L (8.4-10.2) mg/dL Urine Glucose (UA) (Negative) 05/12/23 Range/Units 06:43 WBC (3.8-10.6) k/uL RBC (3.80-5.40) m/uL Hgb (11.4-16.0) gm/dL Hct (34.0-46.0) % Neutrophils # (1.3-7.7) k/uL Lymphocytes # (1.0-4.8) k/uL ABG pH (7.35-7.45) ABG pCO2 (35-45) mmHg ABG pO2 (83-108) mmHg ABG HCO3 (21-25) mmol/L ABG Total CO2 (19-24) mmol/L Sodium (137-145) mmol/L Carbon Dioxide (22-30) mmol/L BUN (7-17) mg/dL Glucose (74-99) mg/dL POC Glucose (mg/dL) 173 H (70-110) mg/dL Calcium (8.4-10.2) mg/dL Urine Glucose (UA) (Negative) Assessment and Plan Assessment: Assessment and plan * Acute on chronic hypoxic respiratory failure with COPD exacerbation * Multifocal pneumonia * Coronary artery disease * History of chronic congestive heart failure systolic dysfunction * Advanced COPD * History of anxiety/depression * History of hypertension * History of dyslipidemia * Recurrent hospitalization for COPD/advance COPD * In regards to acute hypoxic respiratory failure continue patient on noninvasive ventilation, pulmonary medicine consulted continue breathing treatments IV Solu-Medrol broad-spectrum antibiotic on Zosyn and vancomycin day 2 * In regards to multifocal pneumonia follow-up on urine Legionella, continue IV antibiotic, IV steroids, breathing treatment * In regards to history of coronary artery disease continue patient on aspirin, Plavix, metoprolol, withholding parameters * In regards to history of hypertension patient noted be hypotensive, lisinopril placed on hold continue metoprolol with holding diuretics and * CODE STATUS is full code * prognosis remains guarded secondary to recurrent hospitalization with similar presentation Time with Patient: Greater than 30
--- NOTE | 2023-05-12 13:14 | P.PN ---
Subjective Progress Note Date: 05/12/23 62-year-old female patient was brought into the ED with diminished level of consciousness, respiratory distress and hypercapnic respiratory failure. The patient is known to have chronic hypoxic/hypercapnic respiratory failure due to advanced COPD and she has had multiple aspirations the past for hypoxic and hypercapnic respiratory failure and her last hospital this was approximately 3 weeks ago and the patient was supported with BiPAP therapy with subsequent improvement. She is a nonsmoker for now. She has quit smoking. She did have a low-grade fever at home. No nausea or emesis. Information was provided by the hospital at the bedside. Chest exit shows a left lower lobe consolidation sugge stive of a pneumonia. The patient was given Rocephin and Zithromax in the emergency department. The patient was started also on bronchodilators and steroids. The patient is currently on a BiPAP at a pressure of 12/5 cm of water and FiO2 is being titrated to maintain saturation above 90%. After she arrived to the intensive care unit, the patient was given a blood gas that showed a pH of 7.26 with a pCO2 of 72 and pO2 of 79 and this was done on a BiPAP of 12/5 with an FiO2 of 45%. Her potassium dropped down to 4.8 from 6 with a BUN of 18 and a creatinine of 0.4. UA showed +4 glucose. The viral panel is negative. The white cycles of 16.3. Chest x-ray showing a left lower lobe consolidation. In terms of her COPD, the patient has advanced O2 dependent COPD and she is typically on 5 L at home in her FEV1 is less than 30% of predicted. CT angiogram that was done back in March 2023 showed no evidence of any pulmonary embolism. The patient has enlarged pulmonary artery trunk consistent with pulmonary hypertension. She has moderate calcification of the aortic valve. A fusiform aneurysmal dilatation of the ascending aorta measuring 5 x 4.9 cm in size. She also has old right-sided rib fractures. There is diffuse emphysematous changes bilaterally and few subcentimeter pulmonary nodules. Noted during her previous hospitalization, the patient had elevated troponins. Based on that, a cardiac catheterization was done and the patient was found to have mild disease involving the LAD in the order of 40%, RCA had a focal proximal stenosis in the order of 95% and the patient had a drug-eluting stent placed in the RCA 1. Most recent echocardiogram from October 2022 also showed severe aortic stenosis, left ventricle ejection fraction of 45% with a RVSP of 39. On today's evaluation of 05/12/2023, the patient is feeling better. The patient has spent the whole day on the BiPAP yesterday and the patient is currently off the BiPAP. She was utilizing BiPAP at a pressure of 12/5 cm of water with an FiO2 of 45%. She is awake and alert and communicating. Chest x-ray shows bibasilar pulmonary infiltrates and the patient is currently covered with broad- spectrum antibiotics. The patient is white cell count today's of 14.3, hemoglobin was at 10.3 and a sodium level is at 134 with a potassium level of 4 and a BUN of 18 with a creatinine of 0.65. Potassium levels at 4.0. The patient continues to be on bronchodilators with DuoNeb updrafts. The patient is also on accommodation Perforomist and Pulmicort. The patient on IV Solu-Medrol. The patient remains on accommodation of Zosyn and vancomycin. Hemodynamically stable. Awake and alert and communicating. Cultures are still pending for now. Objective - Vital Signs Vital signs: Vital Signs Temp 98.4 F 05/12/23 08:00 Pulse 103 H 05/12/23 09:00 Resp 22 05/12/23 09:00 BP 130/85 05/12/23 09:00 Pulse Ox 96 05/12/23 09:00 FiO2 45 05/12/23 08:31 Intake & Output 05/11/23 05/12/23 05/12/23 18:59 06:59 18:59 Intake Total 875 1175 500 Output Total 0 1550 0 Balance 875 -375 500 Weight 63.503 kg 100.4 kg Intake: IV 1100 500 Piperacillin-Tazobactam 3 100 100 .375 gm In Sodium Chloride 0.9% 100 ml @ 25 mls/hr IVPB Q8HR [facility] Rx# :[id number] Sodium Chloride 0.9% 1, 750 150 000 ml @ 75 mls/hr IV . [id number] [facility] Rx#:[id number] Vancomycin 1,000 mg In 250 250 Sodium Chloride 0.9% 250 ml @ 125 mls/hr IVPB Q8HR [facility] Rx#:[id number] Intake, IV Titration 875 75 Amount Levofloxacin 750Mg-D5w 150 Pmx 750 mg In Dextrose/ Water 1 150ml.bag @ 100 mls/hr IVPB ONCE [facility] Rx#: [id number] Piperacillin-Tazobactam 3 100 .375 gm In Sodium Chloride 0.9% 100 ml @ 25 mls/hr IVPB Q8HR [facility] Rx# :[id number] Sodium Chloride 0.9% 1, 375 75 000 ml @ 75 mls/hr IV . [id number] [facility] Rx#:[id number] Vancomycin 1,000 mg In 250 Sodium Chloride 0.9% 250 ml @ 125 mls/hr IVPB Q8HR [facility] Rx#:[id number] Output: Urine 0 1550 0 Other: Voiding Method External Catheter External Catheter External Catheter # Voids 1 - Exam GENERAL EXAM: Alert, 62-year-old obese white female, alert and awake and communicating and the patient remains on a BiPAP. EYES: Normal reaction of pupils, equal size. NOSE: Clear with pink turbinates. THROAT: No erythema or exudates. NECK: No masses, no JVD. CHEST: No chest wall deformity. LUNGS: Equal air entry with expiratory wheezes heard throughout, breath sounds are markedly diminished bilaterally. CVS: S1 and S2 normal with no audible murmur, regular rhythm. No extra heart sounds. Tachycardic, cardiac rhythm is sinus. ABDOMEN:Obese abdomen, no hepatosplenomegaly, active bowel sounds, no guarding or rigidity. SPINE: No scoliosis or deformity SKIN: No rashes CENTRAL NERVOUS SYSTEM: No focal deficits, tone is normal in all 4 extremities. EXTREMITIES: There is no peripheral edema, clubbing, or cyanosis. Peripheral pulses are intact. - Labs CBC & Chem 7: 05/12/23 04:42 05/12/23 04:42 Labs: Abnormal Lab Results - Last 24 Hours (Table) 05/11/23 05/11/23 05/11/23 Range/Units 10:28 10:28 10:28 WBC 16.3 H (3.8-10.6) k/uL RBC (3.80-5.40) m/uL Hgb (11.4-16.0) gm/dL Hct (34.0-46.0) % Neutrophils # 13.8 H (1.3-7.7) k/uL Lymphocytes # (1.0-4.8) k/uL APTT 20.9 L (22.0-30.0) sec ABG pH (7.35-7.45) ABG pCO2 (35-45) mmHg ABG pO2 (83-108) mmHg ABG HCO3 (21-25) mmol/L ABG Total CO2 (19-24) mmol/L Sodium 136 L (137-145) mmol/L Potassium 6.0 H (3.5-5.1) mmol/L Chloride 96 L (98-107) mmol/L Carbon Dioxide 35 H (22-30) mmol/L BUN 18 H (7-17) mg/dL Creatinine 0.48 L (0.52-1.04) mg/dL Glucose 130 H (74-99) mg/dL POC Glucose (mg/dL) (70-110) mg/dL Calcium (8.4-10.2) mg/dL AST 46 H (14-36) U/L Urine Glucose (UA) (Negative) 05/11/23 05/11/23 05/11/23 Range/Units 10:28 14:26 14:37 WBC (3.8-10.6) k/uL RBC (3.80-5.40) m/uL Hgb (11.4-16.0) gm/dL Hct (34.0-46.0) % Neutrophils # (1.3-7.7) k/uL Lymphocytes # (1.0-4.8) k/uL APTT (22.0-30.0) sec ABG pH 7.26 L (7.35-7.45) ABG pCO2 72 H* (35-45) mmHg ABG pO2 79 L (83-108) mmHg ABG HCO3 32 H (21-25) mmol/L ABG Total CO2 34 H (19-24) mmol/L Sodium (137-145) mmol/L Potassium (3.5-5.1) mmol/L Chloride (98-107) mmol/L Carbon Dioxide (22-30) mmol/L BUN (7-17) mg/dL Creatinine (0.52-1.04) mg/dL Glucose (74-99) mg/dL POC Glucose (mg/dL) 162 H (70-110) mg/dL Calcium (8.4-10.2) mg/dL AST (14-36) U/L Urine Glucose (UA) 4+ H (Negative) 05/11/23 05/12/23 05/12/23 Range/Units 23:47 04:42 04:42 WBC 14.3 H (3.8-10.6) k/uL RBC 3.33 L (3.80-5.40) m/uL Hgb 10.3 L (11.4-16.0) gm/dL Hct 32.3 L (34.0-46.0) % Neutrophils # 13.5 H (1.3-7.7) k/uL Lymphocytes # 0.4 L (1.0-4.8) k/uL APTT (22.0-30.0) sec ABG pH (7.35-7.45) ABG pCO2 (35-45) mmHg ABG pO2 (83-108) mmHg ABG HCO3 (21-25) mmol/L ABG Total CO2 (19-24) mmol/L Sodium 135 L (137-145) mmol/L Potassium (3.5-5.1) mmol/L Chloride (98-107) mmol/L Carbon Dioxide 32 H (22-30) mmol/L BUN 18 H (7-17) mg/dL Creatinine (0.52-1.04) mg/dL Glucose 172 H (74-99) mg/dL POC Glucose (mg/dL) 199 H (70-110) mg/dL Calcium 8.1 L (8.4-10.2) mg/dL AST (14-36) U/L Urine Glucose (UA) (Negative) 05/12/23 Range/Units 06:43 WBC (3.8-10.6) k/uL RBC (3.80-5.40) m/uL Hgb (11.4-16.0) gm/dL Hct (34.0-46.0) % Neutrophils # (1.3-7.7) k/uL Lymphocytes # (1.0-4.8) k/uL APTT (22.0-30.0) sec ABG pH (7.35-7.45) ABG pCO2 (35-45) mmHg ABG pO2 (83-108) mmHg ABG HCO3 (21-25) mmol/L ABG Total CO2 (19-24) mmol/L Sodium (137-145) mmol/L Potassium (3.5-5.1) mmol/L Chloride (98-107) mmol/L Carbon Dioxide (22-30) mmol/L BUN (7-17) mg/dL Creatinine (0.52-1.04) mg/dL Glucose (74-99) mg/dL POC Glucose (mg/dL) 173 H (70-110) mg/dL Calcium (8.4-10.2) mg/dL AST (14-36) U/L Urine Glucose (UA) (Negative) Assessment and Plan Plan: Acute on chronic hypoxic and hypercapnic respiratory failure related to COPD exacerbation, currently on a BiPAP. The patient is an evidence of a left lower lobe consolidation which is a new finding and strongly suspect a left lower lobe pneumonia, could be potentially hospital-acquired based on recurrent and previous hospitalizations. Clinically improved on BiPAP and the patient is going to be transitioned to nasal cannula. Covered broad-spectrum antibiotics. Hemodynamically stable. Left lower lobe pneumonia, chest x-ray from today showing bibasilar pulmonary infiltrate and the patient is currently on accommodation of Zosyn and vancomycin The patient level of consciousness, likely secondary to CO2 narcosis Advanced COPD with an FEV1 of less than 30% of predicted Chronic hypoxic respiratory failure maternal O2 at 5 L per minute nasal cannula Coronary artery disease with recent non-STEMI and the patient is post stenting of the RCA. The patient also has a residual 40% involving the LAD Chronic lower back pain Moderate to severe aortic stenosis with a peak gradient of 69 and a mean gradient of 46 and the estimated valve area of 0.9 Systolic heart failure with an ejection fraction of 45% Secondary pulmonary hypertension Ascending thoracic aortic aneurysm measuring 4.9 x 5 cm in size Plan This continue BiPAP and put the patient on high flow nasal cannula Titrate oxygen flow to maintain saturation above 90% Utilize BiPAP overnight Continue IV Solu-Medrol 60 mg every 6 hours Lovenox 40 mg for DVT prophylaxis Continue aspirin and Plavix . And resume the rest of the oral medications from home. Hold lisinopril for now. Continue [facility] Performance on Pulmicort neb treatments twice a day Condition is critical and we'll continue to follow. She is a DNR/DNI CODE STATUS on previous admissions.
[2023-05-12] MEDS ORDERED: LEVOFLOXACIN 750 MG TAB PO SCH (15:00)
--- NOTE | 2023-05-12 18:18 | P.CRDCN ---
History of Present Illness Consult date: 05/12/23 History of present illness: HISTORY OF PRESENTING ILLNESS Patient is a 62-year-old female with history of stage D COPD, chronic hypoxic and hypercapnic respiratory failure on home oxygen and BiPAP support. Patient was previously hospitalized in early part of March with hypoxic and hypercapnic respiratory failure along with COPD exacerbation. She had a echocardiogram done which showed concerns of possible severe aortic stenosis with mean gradient of 42 mmHg. EF 45-50%, RVSP 39 mmHg She underwent a heart catheterization which showed 40% mid LAD stenosis and 90% proximal RCA stenosis for which she received a drug-eluting stent This time she presented to the hospital because of worsening shortness of breath and difficulty breathing along with cough. On admission her blood gases showed a pH of 2.7, CO2 of 72, oxygenation of 70 suggestive of acute on chronic hypercapnic respiratory failure with metabolic acidosis. She had S CT angios chest done in March 2023 which showed dilated ascending aorta measuring at 4 x 1.9 cm. REVIEW OF SYSTEMS 14 point review of system is negative except what is mentioned above in HPI. PHYSICAL EXAMINATION Vital signs reviewed. Neck: no jugular venous distention. Lungs: Diffuse disease in bilateral lung elkins Cardiac: Regular rate and rhythm, systolic murmur audible in aortic area. Abdomen: Soft nontender, positive bowel sounds Extremities: No edema, intact distal pulses. Neuro: Alert, oritented, no focal deficits, detailed neuro exam was not performed ASSESSMENT Acute on chronic hypoxic and hypercapnic respiratory failure Respiratory acidosis COPD exacerbation, moderate to severe Metabolic encephalopathy due to hypercapnia CAD status post PCI to proximal RCA March 2023 Severe aortic stenosis Ascending aortic aneurysm measuring 5 cm Heart failure with mildly reduced ejection fraction, EF 40-45%, currently euvolemic Previous tobacco smoker Morbid obesity PLAN Continue aspirin, Plavix, atorvastatin, metoprolol 25 mg twice a day Other comorbidity management as per the primary team Agree with BiPAP support COPD management as per pulmonary team For some reason patient did not follow-up with cardiology when she was discharged home last time. This time he was set up an outpatient follow-up with CT surgery team to get evaluated for aortic aneurysm and severe aortic stenosis. Patient is at very high surgical risk due to stage D COPD and essentially is a non-surgical candidate. Due to her aortic aneurysm she might not be a good candidate for TAVR. I have had this discussion with the patient and her at the bedside but I was not able to get an understanding how much insight does patient and her family has about her disease Past Medical History Past Medical History: Coronary Artery Disease (CAD), Chest Pain / Angina, COPD, Respiratory Disorder Additional Past Medical History / Comment(s): Chronic hypercapnic respiratory failure, home oxygen at 5L/NC ATC, tracheobronchitis, aortic valve stenosis, chronic low back pain, DJD History of Any Multi-Drug Resistant Organisms: None Reported Past Surgical History: Breast Surgery, Tubal Ligation Additional Past Surgical History / Comment(s): Bilateral breast reductions, bilateral cataract removals. Past Anesthesia/Blood Transfusion Reactions: No Reported Reaction Date of Last Stent Placement:: 04/2023 Smoking Status: Former smoker - Past Family History Father History Unknown: Yes Mother Family Medical History: Congestive Heart Failure (CHF), Diabetes Mellitus Medications and Allergies Home Medications Medication Instructions Recorded Confirmed Type Albuterol Inhaler [Ventolin Hfa 2 puff INHALATION RT-Q4H PRN 04/09/22 05/11/23 History Inhaler] Atorvastatin [Lipitor] 40 mg PO HS 04/09/22 05/11/23 History Aspirin 81 mg PO DAILY 30 Days #30 tab 04/12/22 05/11/23 Rx Sertraline [Zoloft] 100 mg PO DAILY 06/15/22 05/11/23 History Budesonide/Formoterol Fumarate 2 puff INHALATION RT-BID 07/13/22 05/11/23 History [Symbicort 160-4.5 Mcg Inhaler] Ipratropium-Albuterol Nebulize 3 ml INHALATION RT-QID PRN 09/23/22 05/11/23 Hi story [Duoneb 0.5 mg-3 mg/3 ml Soln] Dapagliflozin Propanediol [Farxiga] 5 mg PO DAILY 11/19/22 05/11/23 History Yupelri 175mcg/3ml 175 mcg INHALATION RT-DAILY 11/19/22 05/11/23 History hydrOXYzine HCL [Atarax] 25 mg PO BID 11/19/22 05/11/23 History Tiotropium [place] [Spiriva 1 cap INHALATION RT-DAILY 04/19/23 05/11/23 History Handihaler] predniSONE 5 mg PO DAILY 04/19/23 05/11/23 History Clopidogrel [Plavix] 75 mg PO DAILY 30 Days #30 tab 04/26/23 05/11/23 Rx Metoprolol Succinate (ER) [Toprol 25 mg PO DAILY 30 Days #30 tab 04/26/23 05/11/23 Rx XL] Nitroglycerin Sl Tabs [Nitrostat] 0.4 mg SUBLINGUAL Q5M PRN #30 tab 04/26/23 05/11/23 Rx lisinopriL 30 mg PO DAILY 05/11/23 05/11/23 History Allergies Allergy/AdvReac Type Severity Reaction Status Date / Time No Known Allergies Allergy Verified 05/11/23 11:47 Physical Exam Vitals: Vital Signs Temp Pulse Resp BP Pulse Ox FiO2 05/12/23 17:00 117 H 30 H 127/69 94 L 45 05/12/23 16:00 98.1 F 109 H 27 H 115/68 84 L 05/12/23 15:52 102 H 05/12/23 15:41 98 05/12/23 15:00 105 H 24 116/95 91 L 05/12/23 14:00 101 H 18 106/68 90 L 05/12/23 13:00 102 H 18 98/83 85 L 05/12/23 12:00 98.4 F 98 20 124/68 95 05/12/23 11:45 99 05/12/23 11:35 45 05/12/23 11:34 93 05/12/23 11:00 98 24 109/72 94 L 45 05/12/23 10:00 88 20 119/90 90 L 05/12/23 09:00 103 H 22 130/85 96 05/12/23 08:55 95 05/12/23 08:45 103 H 05/12/23 08:34 104 H 05/12/23 08:31 45 05/12/23 08:00 98.4 F 106 H 20 124/74 95 45 05/12/23 07:00 91 18 120/73 95 05/12/23 06:00 93 20 116/76 95 05/12/23 05:00 96 17 107/69 93 L 45 05/12/23 04:00 84 16 121/66 94 L 45 05/12/23 03:35 45 05/12/23 03:00 93 19 124/72 94 L 45 05/12/23 02:00 94 20 111/68 92 L 05/12/23 01:00 88 19 113/72 93 L 45 05/12/23 00:00 98.2 F 96 21 112/77 94 L 45 05/11/23 23:54 95 17 112/77 93 L 45 05/11/23 23:05 45 05/11/23 23:00 102 H 22 112/71 94 L 45 05/11/23 22:00 102 H 27 H 100/65 94 L 45 05/11/23 21:00 96 22 108/71 95 45 05/11/23 20:10 95 05/11/23 20:02 93 05/11/23 20:00 98.4 F 92 21 107/71 98 45 05/11/23 19:50 45 05/11/23 19:49 92 05/11/23 19:00 90 25 H 112/71 95 Intake and Output 05/12/23 05/12/23 05/12/23 06:59 14:59 22:59 Intake Total 875 575 375 Output Total 0 0 0 Balance 875 575 375 Intake: IV 875 575 375 Piperacillin-Tazobactam 3 100 100 100 .375 gm In Sodium Chloride 0.9% 100 ml @ 25 mls/hr IVPB Q8HR [facility] Rx# :[id number] Sodium Chloride 0.9% 1, 525 225 25 000 ml @ 75 mls/hr IV . [id number] Rx#:[id number] Vancomycin 1,000 mg In 250 250 250 Sodium Chloride 0.9% 250 ml @ 125 mls/hr IVPB Q8HR [facility] Rx#:[id number] Output: Urine 0 0 0 Other: Voiding Method External Catheter External Catheter External Catheter # Voids 0 1 Weight 100.4 kg Results 05/12/23 04:42 05/12/23 04:42 CBC 05/12/23 Range/Units 04:42 WBC 14.3 H (3.8-10.6) k/uL RBC 3.33 L (3.80-5.40) m/uL Hgb 10.3 L (11.4-16.0) gm/dL Hct 32.3 L (34.0-46.0) % Plt Count 226 (150-450) k/uL Comprehensive Metabolic Panel 05/12/23 Range/Units 04:42 Sodium 135 L (137-145) mmol/L Potassium 4.0 (3.5-5.1) mmol/L Chloride 100 (98-107) mmol/L Carbon Dioxide 32 H (22-30) mmol/L BUN 18 H (7-17) mg/dL Creatinine 0.55 (0.52-1.04) mg/dL Glucose 172 H (74-99) mg/dL Calcium 8.1 L (8.4-10.2) mg/dL Current Medications Generic Name Dose Route Start Last Admin Trade Name Freq PRN Reason Stop Dose Admin Acetaminophen 650 mg 05/11/23 14:37 Acetaminophen Tab 325 Mg Tab PO Q4HR PRN Fever and/or Mild Pain Albuterol/Ipratropium 3 ml 05/11/23 14:39 Ipratropium-Albuterol 3 Ml Neb INHALATION RT-Q2H PRN shortness of breath Albuterol/Ipratropium 3 ml 05/11/23 16:00 05/12/23 15:39 Ipratropium-Albuterol 3 Ml Neb INHALATION 3 ml RT-QID [facility] Administration Aspirin 81 mg 05/12/23 09:00 05/12/23 08:24 Aspirin 81 Mg PO 81 mg DAILY [facility] Administration Atorvastatin Calcium 40 mg 05/11/23 21:00 05/11/23 20:20 Atorvastatin 40 Mg Tab PO 40 mg HS [facility] Administration Budesonide 0.5 mg 05/11/23 20:00 05/12/23 08:31 Budesonide 0.5 Mg/2 Ml Nebu INHALATION 0.5 mg RT-BID [facility] Administration Clopidogrel Bisulfate 75 mg 05/12/23 09:00 05/12/23 08:24 Clopidogrel 75 Mg Tab PO 75 mg DAILY [facility] Administration Enoxaparin Sodium 40 mg 05/11/23 19:00 05/12/23 08:24 Enoxaparin 40 Mg/0.4 Ml Syringe SQ 40 mg DAILY [facility] Administration Formoterol Fumarate 20 mcg 05/11/23 20:00 05/12/23 08:31 Formoterol Fumarate 20 Mcg/2 Ml Nebu INHALATION 20 mcg RT-BID [facility] Administration Guaifenesin 600 mg 05/11/23 21:00 05/12/23 08:24 Guaifenesin 600 Mg Tablet.Er PO 600 mg Q12HR [facility] Administration Guaifenesin/Codeine Phosphate 10 ml 05/11/23 14:40 Guaifenesin-Coden 100-10mg/5ml 10 Ml Cup PO Q6HR PRN Cough Hydralazine HCl 5 mg 05/11/23 14:40 Hydralazine Hcl 20 Mg/Ml 1 Ml Vial IVP Q6HR PRN Blood Pressure - High Hydroxyzine HCl 25 mg 05/11/23 21:00 05/12/23 08:24 Hydroxyzine Hcl 25 Mg Tab PO 25 mg BID [facility] Administration Piperacillin Sod/Tazobactam 100 mls @ 25 mls/hr 05/12/23 00:00 05/12/23 16:28 Sod 3.375 gm/ Sodium Chloride IVPB 05/16/23 18:00 25 mls/hr Q8HR [facility] Administration Protocol Vancomycin HCl 1,000 mg/ 250 mls @ 125 mls/hr 05/11/23 17:00 05/12/23 16:27 Sodium Chloride IVPB 125 mls/hr Q8HR [facility] Administration Ketorolac Tromethamine 15 mg 05/11/23 12:48 Ketorolac 15 Mg/Ml 1 Ml Vial IVP 05/14/23 12:49 Q6HR PRN Moderate Pain (Scale 4 to 6) Lorazepam 0.5 mg 05/11/23 15:09 05/11/23 20:21 Lorazepam 2 Mg/Ml Inj IV 0.5 mg Q8H PRN Administration Anxiety Methylprednisolone Sodium Succinate 60 mg 05/11/23 17:00 05/12/23 12:49 Methylprednisolone Sod Succi 125 Mg/2 Ml Vial IV 60 mg Q6HR [facility] Administration Metoprolol Succinate 25 mg 05/12/23 09:00 05/12/23 08:24 Metoprolol Succinate (Er) 25 Mg Tab.Er.24h PO 25 mg DAILY [facility] Administration Miscellaneous Information 1 each 05/11/23 13:41 Pneumonia Protocol Utilized 1 Each Misc PO ONCE PRN Per Protocol Miscellaneous Information 1 each 05/11/23 14:37 Potassium Replacement Protocol 1 Each Misc MISCELLANE DAILY PRN Per Protocol Miscellaneous Information 1 each 05/11/23 14:37 Magnesium Replacement Protocol 1 Each Misc MISCELLANE DAILY PRN Per Protocol Protocol Miscellaneous Information 1 each 05/13/23 07:00 Vancomycin Trough Due 1 Each Misc MISCELLANE 05/13/23 07:01 ONCE ONE Naloxone HCl 0.2 mg 05/11/23 12:48 Naloxone 0.4 Mg/Ml 1 Ml Vial IV Q2M PRN Opioid Reversal Ondansetron HCl 4 mg 05/11/23 12:48 Ondansetron 4 Mg/2 Ml Vial IVP Q8HR PRN Nausea And Vomiting Ondansetron HCl 4 mg 05/11/23 14:40 Ondansetron 4 Mg/2 Ml Vial IVP Q6HR PRN Nausea And Vomiting Pantoprazole Sodium 40 mg 05/11/23 15:00 05/12/23 08:24 Pantoprazole 40 Mg/10 Ml Vial IV 40 mg DAILY [facility] Administration Sertraline HCl 100 mg 05/12/23 09:00 05/12/23 08:24 Sertraline 100 Mg Tab PO 100 mg DAILY [facility] Administration Intake and Output 05/12/23 05/12/23 05/12/23 06:59 14:59 22:59 Intake Total 875 575 375 Output Total 0 0 0 Balance 875 575 375 Intake: IV 875 575 375 Piperacillin-Tazobactam 3 100 100 100 .375 gm In Sodium Chloride 0.9% 100 ml @ 25 mls/hr IVPB Q8HR [facility] Rx# :[id number] Sodium Chloride 0.9% 1, 525 225 25 000 ml @ 75 mls/hr IV . [id number] [facility] Rx#:[id number] Vancomycin 1,000 mg In 250 250 250 Sodium Chloride 0.9% 250 ml @ 125 mls/hr IVPB Q8HR [facility] Rx#:[id number] Output: Urine 0 0 0 Other: Voiding Method External Catheter External Catheter External Catheter # Voids 0 1 Weight 100.4 kg 05/12/23 04:42 05/12/23 04:42
[2023-05-12] MEDS: FUROSEMIDE 10 MG/ML 4 ML VIAL IV STA (21:03)
[2023-05-12] MEDS: IPRATROPIUM-ALBUTEROL 3 ML NEB INHALATION PRN (23:47)
[2023-05-13] MEDS: VANCOMYCIN 1,500 MG in SODIUM CHLORIDE 0.9% 500 ML 500 ML IVPB SCH (00:11)
[2023-05-13 05:43] LABS: Basophils % (A) 0 %; Eosinophils % (A) 0 %; HCT 30.6 % (34.0-46.0); HGB 9.5 gm/dL (11.4-16.0); Hypochromasia Moderate; Lymphocytes # (A) 0.4 k/uL (1.0-4.8); Lymphocytes % (A) 3 %; MCH 30.3 pg (25.0-35.0); MCHC 31.2 g/dL (31.0-37.0); MCV 97.2 fL (80.0-100.0); Mean Platelet Volume 7.9; Monocytes # (A) 0.4 k/uL (0-1.0); Monocytes % (A) 4 %; Neutrophils # (A) 11.1 k/uL (1.3-7.7); Neutrophils % (A) 92 %; Platelet Count 249 k/uL (150-450); RBC 3.15 m/uL (3.80-5.40); RDW 14.4 % (11.5-15.5); WBC 12.1 k/uL (3.8-10.6)
[2023-05-13 06:12] LABS: Glucose,Whole Blood 210 mg/dL (70-110)
[2023-05-13 06:31] LABS: African American GFR (CKD) >90 (>60 ml/min/1.73 sqM); Anion Gap 1 mmol/L; Blood Urea Nitrogen 27 mg/dL (7-17); Calcium 8.4 mg/dL (8.4-10.2); Carbon Dioxide 34 mmol/L (22-30); Chloride 101 mmol/L (98-107); Glucose 189 mg/dL (74-99); Non-African American GFR(CKD) 88 (>60 ml/min/1.73 sqM); Potassium 3.6 mmol/L (3.5-5.1); Sodium 136 mmol/L (137-145)
[2023-05-13] MEDS: POTASSIUM CHLORIDE 10 MEQ in WATER FOR INJECTION 1 100ML.BAG IVPB SCH (06:49)
[2023-05-13] MEDS ORDERED: VANCOMYCIN TROUGH DUE 1 EACH MISC MISCELLANE ONE (07:00)
--- NOTE | 2023-05-13 08:15 | XR ---
EXAMINATION TYPE: XR chest 1V portable DATE OF EXAM: 05/13/2023 COMPARISON: 05/12/2023 HISTORY: Shortness of breath TECHNIQUE: Single frontal view of the chest is obtained. FINDINGS: There is mild cardiomegaly and diffuse interstitial opacity consistent with pulmonary vascular conges tion and mild interstitial edema. Findings are most consistent with CHF which is essentially unchange d compared to previous. IMPRESSION: No change in the acute cardiopulmonary disease. Findings most consistent with CHF.
[2023-05-13] MEDS: FUROSEMIDE 40 MG TAB PO STA (09:26)
[2023-05-13] MEDS: POTASSIUM CHLORIDE ER 20 MEQ TAB.ER PO SCH (10:00)
[2023-05-13 11:08] LABS: Glucose,Whole Blood 218 mg/dL (70-110)
--- NOTE | 2023-05-13 11:46 | P.PN ---
Subjective Progress Note Date: 05/13/23 62-year-old female patient was brought into the ED with diminished level of consciousness, respiratory distress and hypercapnic respiratory failure. The patient is known to have chronic hypoxic/hypercapnic respiratory failure due to advanced COPD and she has had multiple aspirations the past for hypoxic and hypercapnic respiratory failure and her last hospital this was approximately 3 weeks ago and the patient was supported with BiPAP therapy with subsequent improvement. She is a nonsmoker for now. She has quit smoking. She did have a low-grade fever at home. No nausea or emesis. Information was provided by the hospital at the bedside. Chest exit shows a left lower lobe consolidation sugge stive of a pneumonia. The patient was given Rocephin and Zithromax in the emergency department. The patient was started also on bronchodilators and steroids. The patient is currently on a BiPAP at a pressure of 12/5 cm of water and FiO2 is being titrated to maintain saturation above 90%. After she arrived to the intensive care unit, the patient was given a blood gas that showed a pH of 7.26 with a pCO2 of 72 and pO2 of 79 and this was done on a BiPAP of 12/5 with an FiO2 of 45%. Her potassium dropped down to 4.8 from 6 with a BUN of 18 and a creatinine of 0.4. UA showed +4 glucose. The viral panel is negative. The white cycles of 16.3. Chest x-ray showing a left lower lobe consolidation. In terms of her COPD, the patient has advanced O2 dependent COPD and she is typically on 5 L at home in her FEV1 is less than 30% of predicted. CT angiogram that was done back in March 2023 showed no evidence of any pulmonary embolism. The patient has enlarged pulmonary artery trunk consistent with pulmonary hypertension. She has moderate calcification of the aortic valve. A fusiform aneurysmal dilatation of the ascending aorta measuring 5 x 4.9 cm in size. She also has old right-sided rib fractures. There is diffuse emphysematous changes bilaterally and few subcentimeter pulmonary nodules. Noted during her previous hospitalization, the patient had elevated troponins. Based on that, a cardiac catheterization was done and the patient was found to have mild disease involving the LAD in the order of 40%, RCA had a focal proximal stenosis in the order of 95% and the patient had a drug-eluting stent placed in the RCA 1. Most recent echocardiogram from October 2022 also showed severe aortic stenosis, left ventricle ejection fraction of 45% with a RVSP of 39. On today's evaluation of 05/12/2023, the patient is feeling better. The patient has spent the whole day on the BiPAP yesterday and the patient is currently off the BiPAP. She was utilizing BiPAP at a pressure of 12/5 cm of water with an FiO2 of 45%. She is awake and alert and communicating. Chest x-ray shows bibasilar pulmonary infiltrates and the patient is currently covered with broad- spectrum antibiotics. The patient is white cell count today's of 14.3, hemoglobin was at 10.3 and a sodium level is at 134 with a potassium level of 4 and a BUN of 18 with a creatinine of 0.65. Potassium levels at 4.0. The patient continues to be on bronchodilators with DuoNeb updrafts. The patient is also on accommodation Perforomist and Pulmicort. The patient on IV Solu-Medrol. The patient remains on accommodation of Zosyn and vancomycin. Hemodynamically stable. Awake and alert and communicating. Cultures are still pending for now. 05/13/2023, the patient is on oxygen at 5 L. The patient was taken off the BiPAP this morning. Overnight, the patient was in the BiPAP at a pressure of 12/5 with an FiO2 of 45%. She is tolerating the BiPAP reasonably well. Chest x-ray still showing limited bibasilar pulmonary infiltrates. The patient continues to be on a combination of Zosyn and vancomycin. She did encounter some shortness of breath yesterday. She was given a dose of Lasix 40 mg IV push and her respiratory status improved accordingly. The white cycles of 12, he was at 9.5, BUN is at 27 with a creatinine of 0.7 and a sodium levels of 135. Alert and awake. Communicating. No signs of any CO2 narcosis. Remains on bronchodilators. Tolerating her diet. No nausea or vomiting. No chest pain. Objective - Vital Signs Vital signs: Vital Signs Temp 98.9 F 05/13/23 04:00 Pulse 105 H 05/13/23 08:14 Resp 20 05/13/23 08:14 BP 121/73 05/13/23 07:00 Pulse Ox 88 L 05/13/23 08:14 FiO2 45 05/13/23 08:14 Intake & Output 05/12/23 05/13/23 05/13/23 18:59 06:59 18:59 Intake Total 950 950 10 Output Total 0 860 Balance 950 90 10 Weight 102.3 kg Intake: IV 950 710 10 Piperacillin-Tazobactam 3 200 .375 gm In Sodium Chloride 0.9% 100 ml @ 25 mls/hr IVPB Q8HR [facility] Rx# :[id number] Potassium Chloride 10 meq 100 In Water For Injection 1 100ml.bag @ 100 mls/hr IVPB Q1H [facility] Rx#: [id number] Sodium Chloride 0.9% 1, 250 110 10 000 ml @ 75 mls/hr IV . [id number] [facility] Rx#:[id number] Vancomycin 1,000 mg In 500 Sodium Chloride 0.9% 250 ml @ 125 mls/hr IVPB Q8HR [facility] Rx#:[id number] Vancomycin 1,500 mg In 500 Sodium Chloride 0.9% 500 ml 500 ml @ 167 mls/hr IVPB Q12H [facility] Rx#: [id number] Oral 240 Output: Urine 0 860 Other: Voiding Method External Catheter External Catheter # Voids 1 - Exam GENERAL EXAM: Alert, 62-year-old obese white female, alert and awake and communicating and the patient remains on 5 L of O2 nasal cannula EYES: Normal reaction of pupils, equal size. NOSE: Clear with pink turbinates. THROAT: No erythema or exudates. NECK: No masses, no JVD. CHEST: No chest wall deformity. LUNGS: Equal air entry with expiratory wheezes heard throughout, breath sounds are markedly diminished bilaterally. CVS: S1 and S2 normal with systolic ejection audible murmur, regular rhythm. No extra heart sounds. ABDOMEN:Obese abdomen, no hepatosplenomegaly, active bowel sounds, no guarding or rigidity. SPINE: No scoliosis or deformity SKIN: No rashes CENTRAL NERVOUS SYSTEM: No focal deficits, tone is normal in all 4 extremities. EXTREMITIES: There is no peripheral edema, clubbing, or cyanosis. Peripheral pulses are intact. - Labs CBC & Chem 7: 05/13/23 05:00 05/13/23 05:00 Labs: Abnormal Lab Results - Last 24 Hours (Table) 05/13/23 05/13/23 05/13/23 Range/Units 05:00 05:00 06:11 WBC 12.1 H (3.8-10.6) k/uL RBC 3.15 L (3.80-5.40) m/uL Hgb 9.5 L (11.4-16.0) gm/dL Hct 30.6 L (34.0-46.0) % Neutrophils # 11.1 H (1.3-7.7) k/uL Lymphocytes # 0.4 L (1.0-4.8) k/uL Sodium 136 L (137-145) mmol/L Carbon Dioxide 34 H (22-30) mmol/L BUN 27 H (7-17) mg/dL Glucose 189 H (74-99) mg/dL POC Glucose (mg/dL) 210 H (70-110) mg/dL Microbiology - Last 24 Hours (Table) 05/11/23 12:36 Blood Culture - Preliminary Blood Assessment and Plan Plan: Acute on chronic hypoxic and hypercapnic respiratory failure related to COPD exacerbation, currently off BiPAP in back to 5 L of oxygen by nasal cannula Left lower lobe pneumonia, chest x-ray from today showing bibasilar pulmonary infiltrate and the patient is currently on accommodation of Zosyn and vancomycin The patient level of consciousness, likely secondary to CO2 narcosis Advanced COPD with an FEV1 of less than 30% of predicted Chronic hypoxic respiratory failure maternal O2 at 5 L per minute nasal cannula Coronary artery disease with recent non-STEMI and the patient is post stenting of the RCA. The patient also has a residual 40% involving the LAD Chronic lower back pain Moderate to severe aortic stenosis with a peak gradient of 69 and a mean grad ient of 46 and the estimated valve area of 0.9 Systolic heart failure with an ejection fraction of 45% Secondary pulmonary hypertension Ascending thoracic aortic aneurysm measuring 4.9 x 5 cm in size Plan Continue BiPAP overnight and utilize oxygen at 5 L during the day Titrate oxygen flow to maintain saturation above 90% Utilize BiPAP overnight Continue IV Solu-Medrol 60 mg every 6 hours Lovenox 40 mg for DVT prophylaxis Add Lasix 40 mg by mouth on a daily basis Continue aspirin and Plavix . And resume the rest of the oral medications from home. Hold lisinopril for now. Continue [facility] Performance on Pulmicort neb treatments twice a day Condition is critical and we'll continue to follow. She is a DNR/DNI CODE STATUS on previous admissions. We'll chest for outside the intensive care unit today.
--- NOTE | 2023-05-13 12:36 | P.PN ---
Subjective Progress Note Date: 05/13/23 * 62-year-old patient with past medical history significant for COPD severe with FEV1 less than 30%, chronic hypoxic respiratory failure on 5 L of oxygen at baseline, we couldn't history of COPD exacerbation recently discharged in April 2023, moderate severe aortic stenosis, chronic congestive heart fail ure with ejection fraction of 45%, pulmonary hypertension, ascending thoracic aneurysm, history of coronary artery disease, history of anxiety, depression, chronic back pain presents to the emergency department with complains of shortness of breath. Patient states she has been having worsening symptoms for the last 2 or 3 days. Patient was discharged on 04/27/2023 admitted with similar presentation. Patient states she has been having low-grade fever at home. EMS was called and patient was placed on noninvasive ventilation for respiratory distress. Patient states she took multiple breathing treatments at home without any improvement. Patient was anxious at the time of presentation in ED. Patient was started on IV antibiotics including Zosyn and Levaquin in ED. Patient was placed on BiPAP in ER was given 1 L of fluid bolus, due to severe anxiety patient is a 1 dose of IV Ativan and breathing treatments. * Review of blood work showed leukocytosis with WBC 16.3 hemoglobin 11.9 platele t count of 244 serum chemistry showed sodium 136 potassium of 6 chloride 96 BUN 18 creatinine 0.48, blood sample was considered hemolyzed and repeat sample was ordered N-terminal proBNP 238, albumin 3.9 patient tested negative for RSV, Covid, influenza due to severe respiratory distress patient admitted to medical ICU with consultation from medical ICU team * 05/12/2023: Patient seen and evaluated bedside, at bedside patient remains on BiPAP, CBC shows improvement in WBC count, hemoglobin 10.3, serum chemistry reviewed, renal function stable, patient is alert and oriented 4 * 05/13/2023: Patient seen and evaluated bedside, patient transition to 5 L oxygen through nasal cannula. Continue patient on broad-spectrum antibiotic with CBC showed WBC of 12.1 hemoglobin 9.5 serum chemistry sodium 136 potassium 3.6 renal function within normal limits patient is off BiPAP REVIEW OF SYSTEMS: Shortness of breath, respiratory distress, cough improved CONSTITUTIONAL: No fever, no malaise, no fatigue. HEENT: No recent visual problems or hearing problems. Denied any sore throat. CARDIOVASCULAR: No chest pain, orthopnea, PND, no palpitations, no syncope. PULMONARY: Shortness of breath, respiratory distress, cough GASTROINTESTINAL: No diarrhea, no nausea, no vomiting, no abdominal pain. NEUROLOGICAL: No headaches, no weakness, no numbness. HEMATOLOGICAL: Denies any bleeding or petechiae. GENITOURINARY: Denies any burning micturition, frequency, or urgency. MUSCULOSKELETAL/RHEUMATOLOGICAL: Denies any joint pain, swelling, or any muscle pain. ENDOCRINE: Denies any polyuria or polydipsia. PHYSICAL EXAMINATION: GENERAL: The patient is alert and oriented x 3, on high flow nasal cannula however respiratory distress is improved HEENT: Pupils are round and equally reacting to light. EOMI Normocephalic, atraumatic. No pharyngeal erythema. No thyromegaly. CARDIOVASCULAR: S1 and S2 present. No murmurs, rubs, or gallops. PULMONARY: Improved breath sounds bilaterally ABDOMEN: Soft, nontender, nondistended, normoactive bowel sounds. No palpable organomegaly. MUSCULOSKELETAL: No joint swelling or deformity. EXTREMITIES: No cyanosis, clubbing, or pedal edema. NEUROLOGICAL: Gross neurological examination did not reveal any focal deficits. SKIN: No rashes. Objective - Vital Signs Vital signs: Vital Signs Temp 98.1 F 05/13/23 08:00 Pulse 101 H 05/13/23 12:01 Resp 23 05/13/23 10:00 BP 125/72 05/13/23 10:00 Pulse Ox 93 L 05/13/23 10:00 FiO2 45 05/13/23 08:14 Intake & Output 05/12/23 05/13/23 05/13/23 18:59 06:59 18:59 Intake Total 950 950 210 Output Total 0 860 Balance 950 90 210 Weight 102.3 kg Intake: IV 950 710 10 Piperacillin-Tazobactam 3 200 .375 gm In Sodium Chloride 0.9% 100 ml @ 25 mls/hr IVPB Q8HR [facility] Rx# :[id number] Potassium Chloride 10 meq 100 In Water For Injection 1 100ml.bag @ 100 mls/hr IVPB Q1H [facility] Rx#: [id number] Sodium Chloride 0.9% 1, 250 110 10 000 ml @ 75 mls/hr IV . [id number] [facility] Rx#:[id number] Vancomycin 1,000 mg In 500 Sodium Chloride 0.9% 250 ml @ 125 mls/hr IVPB Q8HR [facility] Rx#:[id number] Vancomycin 1,500 mg In 500 Sodium Chloride 0.9% 500 ml 500 ml @ 167 mls/hr IVPB Q12H [facility] Rx#: [id number] Oral 240 200 Output: Urine 0 860 Other: Voiding Method External Catheter External Catheter External Catheter # Voids 1 1 - Labs CBC & Chem 7: 05/13/23 05:00 05/13/23 05:00 Labs: Abnormal Lab Results - Last 24 Hours (Table) 05/13/23 05/13/23 05/13/23 Range/Units 05:00 05:00 06:11 WBC 12.1 H (3.8-10.6) k/uL RBC 3.15 L (3.80-5.40) m/uL Hgb 9.5 L (11.4-16.0) gm/dL Hct 30.6 L (34.0-46.0) % Neutrophils # 11.1 H (1.3-7.7) k/uL Lymphocytes # 0.4 L (1.0-4.8) k/uL Sodium 136 L (137-145) mmol/L Carbon Dioxide 34 H (22-30) mmol/L BUN 27 H (7-17) mg/dL Glucose 189 H (74-99) mg/dL POC Glucose (mg/dL) 210 H (70-110) mg/dL 05/13/23 Range/Units 11:06 WBC (3.8-10.6) k/uL RBC (3.80-5.40) m/uL Hgb (11.4-16.0) gm/dL Hct (34.0-46.0) % Neutrophils # (1.3-7.7) k/uL Lymphocytes # (1.0-4.8) k/uL Sodium (137-145) mmol/L Carbon Dioxide (22-30) mmol/L BUN (7-17) mg/dL Glucose (74-99) mg/dL POC Glucose (mg/dL) 218 H (70-110) mg/dL Microbiology - Last 24 Hours (Table) 05/11/23 12:36 Blood Culture - Preliminary Blood Assessment and Plan Assessment: Assessment and plan * Acute on chronic hypoxic respiratory failure with COPD exacerbation * Multifocal pneumonia * Coronary artery disease * History of chronic congestive heart failure systolic dysfunction * Advanced COPD * History of anxiety/depression * History of hypertension * History of dyslipidemia * Recurrent hospitalization for COPD/advance COPD * In regards to acute hypoxic respiratory failure continue patient on noninvasive ventilation, pulmonary medicine consulted continue breathing treatments IV Solu-Medrol broad-spectrum antibiotic on Zosyn and vancomycin day 3 * In regards to multifocal pneumonia follow-up on urine Legionella, continue IV antibiotic, IV steroids, breathing treatment * In regards to history of coronary artery disease continue patient on aspirin, Plavix, metoprolol, withholding parameters * In regards to history of hypertension patient noted be hypotensive on admission, lisinopril placed on hold continue metoprolol with holding pa rameetes, patient placed back on Lasix * CODE STATUS is full code * prognosis remains guarded secondary to recurrent hospitalization with similar presentation
--- NOTE | 2023-05-13 17:18 | P.PN ---
Subjective Progress Note Date: 05/13/23 Progress note 05/13/2023 Patient is transferred out of ICU. She is on 5 L oxygenation. On exam she is still very tight on lung exam. HISTORY OF PRESENTING ILLNESS Patient is a 62-year-old female with history of stage D COPD, chronic hypoxic and hypercapnic respiratory failure on home oxygen and BiPAP support. Patient was previously hospitalized in early part of March with hypoxic and hypercapnic respiratory failure along with COPD exacerbation. She had a echocardiogram done which showed concerns of possible severe aortic stenosis with mean gradient of 42 mmHg. EF 45-50%, RVSP 39 mmHg She underwent a heart catheterization which showed 40% mid LAD stenosis and 90% proximal RCA stenosis for which she received a drug-eluting stent This time she presented to the hospital because of worsening shortness of breath and difficulty breathing along with cough. On admission her blood gases showed a pH of 2.7, CO2 of 72, oxygenation of 70 suggestive of acute on chronic hypercapnic respiratory failure with metabolic acidosis. She had CT angios chest done in March 2023 which showed dilated ascending aorta measuring at 5 x 4.9 cm. REVIEW OF SYSTEMS 14 point review of system is negative except what is mentioned above in HPI. PHYSICAL EXAMINATION Vital signs reviewed. Neck: no jugular venous distention. Lungs: Diffuse wheezing in bilateral lung elkins Cardiac: Regular rate and rhythm, systolic murmur audible in aortic area. Abdomen: Soft nontender, positive bowel sounds Extremities: No edema, intact distal pulses. Neuro: Alert, oritented, no focal deficits, detailed neuro exam was not performed ASSESSMENT Acute on chronic hypoxic and hypercapnic respiratory failure Respiratory acidosis COPD exacerbation, moderate to severe Metabolic encephalopathy due to hypercapnia CAD status post PCI to proximal RCA March 2023 Severe aortic stenosis Ascending aortic aneurysm measuring 5 cm Heart failure with mildly reduced ejection fraction, EF 40-45%, currently euvolemic Previous tobacco smoker Morbid obesity PLAN Continue aspirin, Plavix, atorvastatin, metoprolol 25 mg twice a day Other comorbidity management as per the primary team Agree with BiPAP support COPD management as per pulmonary team For some reason patient did not follow-up with cardiology when she was discharged home last time. This time he was set up an outpatient follow-up with CT surgery team to get evaluated for aortic aneurysm and severe aortic stenosis. Patient is at very high surgical risk due to stage D COPD and essentially is a non-surgical candidate. Due to her aortic aneurysm she might not be a good candidate for TAVR. Prior to discharge, we will get CT surgery's opinion. If not a candidate for either therapy, hospice should be considered. I have had this discussion with the patient and her at the bedside but I was not able to get an understanding how much insight does patient and her family has about her disease Objective - Vital Signs Vital signs: Vital Signs Temp 98.2 F 05/13/23 14:00 Pulse 120 H 05/13/23 16:27 Resp 22 05/13/23 16:27 BP 103/77 05/13/23 14:00 Pulse Ox 92 L 05/13/23 14:00 FiO2 45 05/13/23 16:17 Intake & Output 05/12/23 05/13/23 05/13/23 18:59 06:59 18:59 Intake Total 950 950 210 Output Total 0 860 Balance 950 90 210 Weight 102.3 kg Intake: IV 950 710 10 Piperacillin-Tazobactam 3 200 .375 gm In Sodium Chloride 0.9% 100 ml @ 25 mls/hr IVPB Q8HR [facility] Rx# :[id number] Potassium Chloride 10 meq 100 In Water For Injection 1 100ml.bag @ 100 mls/hr IVPB Q1H [facility] Rx#: [id number] Sodium Chloride 0.9% 1, 250 110 10 000 ml @ 75 mls/hr IV . [id number] [facility] Rx#:[id number] Vancomycin 1,000 mg In 500 Sodium Chloride 0.9% 250 ml @ 125 mls/hr IVPB Q8HR [facility] Rx#:[id number] Vancomycin 1,500 mg In 500 Sodium Chloride 0.9% 500 ml 500 ml @ 167 mls/hr IVPB Q12H [facility] Rx#: [id number] Oral 240 200 Output: Urine 0 860 Other: Voiding Method External Catheter External Catheter External Catheter # Voids 1 1 - Labs CBC & Chem 7: 05/13/23 05:00 05/13/23 05:00 Labs: Abnormal Lab Results - Last 24 Hours (Table) 05/13/23 05/13/23 05/13/23 Range/Units 05:00 05:00 06:11 WBC 12.1 H (3.8-10.6) k/uL RBC 3.15 L (3.80-5.40) m/uL Hgb 9.5 L (11.4-16.0) gm/dL Hct 30.6 L (34.0-46.0) % Neutrophils # 11.1 H (1.3-7.7) k/uL Lymphocytes # 0.4 L (1.0-4.8) k/uL Sodium 136 L (137-145) mmol/L Carbon Dioxide 34 H (22-30) mmol/L BUN 27 H (7-17) mg/dL Glucose 189 H (74-99) mg/dL POC Glucose (mg/dL) 210 H (70-110) mg/dL 05/13/23 Range/Units 11:06 WBC (3.8-10.6) k/uL RBC (3.80-5.40) m/uL Hgb (11.4-16.0) gm/dL Hct (34.0-46.0) % Neutrophils # (1.3-7.7) k/uL Lymphocytes # (1.0-4.8) k/uL Sodium (137-145) mmol/L Carbon Dioxide (22-30) mmol/L BUN (7-17) mg/dL Glucose (74-99) mg/dL POC Glucose (mg/dL) 218 H (70-110) mg/dL Microbiology - Last 24 Hours (Table) 05/11/23 12:36 Blood Culture - Preliminary Blood
[2023-05-13 17:20] LABS: Glucose,Whole Blood 209 mg/dL (70-110)
[2023-05-13] MEDS: INSULIN ASPART (NovoLOG) 100 UNIT/ML VIAL SQ SCH (17:25)
[2023-05-13 20:58] LABS: Glucose,Whole Blood 157 mg/dL (70-110)
[2023-05-14 06:28] LABS: Glucose,Whole Blood 158 mg/dL (70-110)
--- NOTE | 2023-05-14 07:22 | XR ---
EXAMINATION TYPE: XR chest 1V portable DATE OF EXAM: 05/14/2023 COMPARISON: 05/13/2023 HISTORY: Shortness of breath TECHNIQUE: Single frontal view of the chest is obtained. FINDINGS: There has been a mild interval decrease in the pulmonary vascular congestion. There is no d ense airspace consolidation. There is no pleural effusion or pneumothorax. The cardiac silhouette remains mildly prominent. IMPRESSION: Probable mild CHF with mild interval improvement in the interval.
[2023-05-14 07:39] LABS: African American GFR (CKD) >90 (>60 ml/min/1.73 sqM); Anion Gap 0 mmol/L; Blood Urea Nitrogen 34 mg/dL (7-17); Calcium 8.7 mg/dL (8.4-10.2); Carbon Dioxide 38 mmol/L (22-30); Chloride 103 mmol/L (98-107); Glucose 152 mg/dL (74-99); Non-African American GFR(CKD) 88 (>60 ml/min/1.73 sqM); Potassium 4.1 mmol/L (3.5-5.1); Sodium 141 mmol/L (137-145)
[2023-05-14 08:03] LABS: C Reactive Protein 3.9 mg/dL (<1.0)
[2023-05-14] MEDS: FUROSEMIDE 40 MG TAB PO SCH (09:08)
[2023-05-14 09:54] LABS: Basophils # (A) 0.01 X 10*3/uL (0.00-0.10); Basophils % (A) 0.1 %; Eosinophils # (A) 0 X 10*3/uL (0.04-0.35); Eosinophils % (A) 0 %; HCT 31.2 % (37.2-46.3); HGB 9.3 g/dL (12.0-15.0); Lymphocytes # (A) 0.54 X 10*3/uL (0.90-5.00); Lymphocytes % (A) 4.5 %; MCH 29.7 pg (27.0-32.0); MCHC 29.8 g/dL (32.0-37.0); MCV 99.7 FL (80.0-97.0); Monocytes # (A) 0.79 X 10*3/uL (0.20-1.00); Monocytes % (A) 6.5 %; NRBC Per 100 WBC 0 X 10*3/uL (0.00-0.01); Neutrophils # (A) 10.59 X 10*3/uL (1.80-7.70); Neutrophils % (A) 87.5 %; Platelet Count 300 X 10*3/uL (140-440); RBC 3.13 X 10*6/uL (4.10-5.20); RDW 14.2 % (11.5-14.5)
[2023-05-14 11:37] LABS: Glucose,Whole Blood 175 mg/dL (70-110)
--- NOTE | 2023-05-14 11:45 | P.PN ---
Subjective Progress Note Date: 05/14/23 * 62-year-old patient with past medical history significant for COPD severe with FEV1 less than 30%, chronic hypoxic respiratory failure on 5 L of oxygen at baseline, we couldn't history of COPD exacerbation recently discharged in April 2023, moderate severe aortic stenosis, chronic congestive heart fail ure with ejection fraction of 45%, pulmonary hypertension, ascending thoracic aneurysm, history of coronary artery disease, history of anxiety, depression, chronic back pain presents to the emergency department with complains of shortness of breath. Patient states she has been having worsening symptoms for the last 2 or 3 days. Patient was discharged on 04/27/2023 admitted with similar presentation. Patient states she has been having low-grade fever at home. EMS was called and patient was placed on noninvasive ventilation for respiratory distress. Patient states she took multiple breathing treatments at home without any improvement. Patient was anxious at the time of presentation in ED. Patient was started on IV antibiotics including Zosyn and Levaquin in ED. Patient was placed on BiPAP in ER was given 1 L of fluid bolus, due to severe anxiety patient is a 1 dose of IV Ativan and breathing treatments. * Review of blood work showed leukocytosis with WBC 16.3 hemoglobin 11.9 platele t count of 244 serum chemistry showed sodium 136 potassium of 6 chloride 96 BUN 18 creatinine 0.48, blood sample was considered hemolyzed and repeat sample was ordered N-terminal proBNP 238, albumin 3.9 patient tested negative for RSV, Covid, influenza due to severe respiratory distress patient admitted to medical ICU with consultation from medical ICU team * 05/12/2023: Patient seen and evaluated bedside, at bedside patient remains on BiPAP, CBC shows improvement in WBC count, hemoglobin 10.3, serum chemistry reviewed, renal function stable, patient is alert and oriented 4 * 05/13/2023: Patient seen and evaluated bedside, patient transition to 5 L oxygen through nasal cannula. Continue patient on broad-spectrum antibiotic with CBC showed WBC of 12.1 hemoglobin 9.5 serum chemistry sodium 136 potassium 3.6 renal function within normal limits patient is off BiPAP * 05/14/2023: Patient seen and evaluated bedside, patient accompanied by her shortness of breath is improved, respiratory distress has improved patient transferred out of ICU patient on 5 L of oxygen. Continue current antibiotic regimen including Zosyn and vancomycin day 3, antibiotic to be de- escalate depending on clinical course CRP 3.9. Patient does get shortness of breath on minimal exertion REVIEW OF SYSTEMS: Shortness of breath improved, respiratory distress resolved, cough improved CONSTITUTIONAL: No fever, no malaise, no fatigue. HEENT: No recent visual problems or hearing problems. Denied any sore throat. CARDIOVASCULAR: No chest pain, orthopnea, PND, no palpitations, no syncope. PULMONARY: Shortness of breath, respiratory distress, cough improving GASTROINTESTINAL: No diarrhea, no nausea, no vomiting, no abdominal pain. NEUROLOGICAL: No headaches, no weakness, no numbness. HEMATOLOGICAL: Denies any bleeding or petechiae. GENITOURINARY: Denies any burning micturition, frequency, or urgency. MUSCULOSKELETAL/RHEUMATOLOGICAL: Denies any joint pain, swelling, or any muscle pain. ENDOCRINE: Denies any polyuria or polydipsia. PHYSICAL EXAMINATION: GENERAL: The patient is alert and oriented x 3, on high flow nasal cannula however respiratory distress is improved, obese HEENT: Pupils are round and equally reacting to light. EOMI Normocephalic, atraumatic. No pharyngeal erythema. No thyromegaly. CARDIOVASCULAR: S1 and S2 present. No murmurs, rubs, or gallops. PULMONARY: Improved breath sounds bilaterally ABDOMEN: Soft, nontender, nondistended, normoactive bowel sounds. No palpable organomegaly. MUSCULOSKELETAL: No joint swelling or deformity. EXTREMITIES: No cyanosis, clubbing, or pedal edema. NEUROLOGICAL: Gross neurological examination did not reveal any focal deficits. SKIN: No rashes. Objective - Vital Signs Vital signs: Vital Signs Temp 97.8 F 05/14/23 08:00 Pulse 80 05/14/23 09:03 Resp 23 05/14/23 08:00 BP 159/95 05/14/23 08:00 Pulse Ox 96 05/14/23 08:50 FiO2 45 05/14/23 09:01 Intake & Output 05/13/23 05/14/23 05/14/23 18:59 06:59 18:59 Intake Total 1050 Balance 1050 Intake: IV 610 Piperacillin-Tazobactam 3 100 .375 gm In Sodium Chloride 0.9% 100 ml @ 25 mls/hr IVPB Q8HR [facility] Rx# :[id number] Sodium Chloride 0.9% 1, 10 000 ml @ 75 mls/hr IV . [id number] [facility] Rx#:[id number] Vancomycin 1,500 mg In 500 Sodium Chloride 0.9% 500 ml 500 ml @ 167 mls/hr IVPB Q12H [facility] Rx#: [id number] Oral 440 Other: Voiding Method External Catheter External Catheter # Voids 1 # Bowel Movements 1 1 - Labs CBC & Chem 7: 05/14/23 05:54 05/14/23 05:54 Labs: Abnormal Lab Results - Last 24 Hours (Table) 05/13/23 05/13/23 05/14/23 Range/Units 17:19 20:56 05:54 WBC 12.10 H (4.50-10.00) X 10*3/uL RBC 3.13 L (4.10-5.20) X 10*6/uL Hgb 9.3 L (12.0-15.0) g/dL Hct 31.2 L (37.2-46.3) % MCV 99.7 H (80.0-97.0) FL MCHC 29.8 L (32.0-37.0) g/dL Immature Gran # 0.17 H (0.00-0.04) X 10*3/uL Neutrophils # 10.59 H (1.80-7.70) X 10*3/uL Lymphocytes # 0.54 L (0.90-5.00) X 10*3/uL Eosinophils # 0 L (0.04-0.35) X 10*3/uL Carbon Dioxide (22-30) mmol/L BUN (7-17) mg/dL Glucose (74-99) mg/dL POC Glucose (mg/dL) 209 H 157 H (70-110) mg/dL C-Reactive Protein (<1.0) mg/dL 05/14/23 05/14/23 05/14/23 Range/Units 05:54 06:26 11:35 WBC (4.50-10.00) X 10*3/uL RBC (4.10-5.20) X 10*6/uL Hgb (12.0-15.0) g/dL Hct (37.2-46.3) % MCV (80.0-97.0) FL MCHC (32.0-37.0) g/dL Immature Gran # (0.00-0.04) X 10*3/uL Neutrophils # (1.80-7.70) X 10*3/uL Lymphocytes # (0.90-5.00) X 10*3/uL Eosinophils # (0.04-0.35) X 10*3/uL Carbon Dioxide 38 H (22-30) mmol/L BUN 34 H (7-17) mg/dL Glucose 152 H (74-99) mg/dL POC Glucose (mg/dL) 158 H 175 H (70-110) mg/dL C-Reactive Protein 3.9 H (<1.0) mg/dL Microbiology - Last 24 Hours (Table) 05/11/23 12:36 Blood Culture - Preliminary Blood 05/11/23 12:36 Blood Culture - Preliminary Blood Assessment and Plan Assessment: Assessment and plan * Acute on chronic hypoxic respiratory failure with COPD exacerbation * Multifocal pneumonia * Coronary artery disease * History of chronic congestive heart failure systolic dysfunction * Advanced COPD * History of anxiety/depression * History of hypertension * History of dyslipidemia * Recurrent hospitalization for COPD/advance COPD * In regards to acute hypoxic respiratory failure >> continue patient on noninvasive ventilation as needed, weaned down to 5 L of oxygen through nasal cannula, >> pulmonary medicine consulted continue breathing treatments IV Solu-Medrol broad-spectrum antibiotic on Zosyn and vancomycin day 3 * In regards to multifocal pneumonia follow-up on urine Legionella NEGATIVE , continue IV antibiotic, IV steroids, breathing treatment * In regards to history of coronary artery disease continue patient on aspirin, Plavix, metoprolol, withholding parameters * In regards to history of hypertension patient noted be hypotensive on admission, lisinopril placed on hold >> continue metoprolol with holding parameetes, patient placed back on Lasix * CODE STATUS is full code * prognosis remains guarded secondary to recurrent hospitalization with similar presentation Time with Patient: Greater than 30
[2023-05-14] MEDS: VANCOMYCIN TROUGH DUE 1 EACH MISC MISCELLANE ONE (13:50)
[2023-05-14] MEDS: VANCOMYCIN 1,250 MG in SODIUM CHLORIDE 0.9% 250 ML IVPB SCH (13:50)
--- NOTE | 2023-05-14 14:00 | P.PN ---
Subjective Progress Note Date: 05/14/23 62-year-old female patient was brought into the ED with diminished level of consciousness, respiratory distress and hypercapnic respiratory failure. The patient is known to have chronic hypoxic/hypercapnic respiratory failure due to advanced COPD and she has had multiple aspirations the past for hypoxic and hypercapnic respiratory failure and her last hospital this was approximately 3 weeks ago and the patient was supported with BiPAP therapy with subsequent improvement. She is a nonsmoker for now. She has quit smoking. She did have a low-grade fever at home. No nausea or emesis. Information was provided by the hospital at the bedside. Chest exit shows a left lower lobe consolidation sugge stive of a pneumonia. The patient was given Rocephin and Zithromax in the emergency department. The patient was started also on bronchodilators and steroids. The patient is currently on a BiPAP at a pressure of 12/5 cm of water and FiO2 is being titrated to maintain saturation above 90%. After she arrived to the intensive care unit, the patient was given a blood gas that showed a pH of 7.26 with a pCO2 of 72 and pO2 of 79 and this was done on a BiPAP of 12/5 with an FiO2 of 45%. Her potassium dropped down to 4.8 from 6 with a BUN of 18 and a creatinine of 0.4. UA showed +4 glucose. The viral panel is negative. The white cycles of 16.3. Chest x-ray showing a left lower lobe consolidation. In terms of her COPD, the patient has advanced O2 dependent COPD and she is typically on 5 L at home in her FEV1 is less than 30% of predicted. CT angiogram that was done back in March 2023 showed no evidence of any pulmonary embolism. The patient has enlarged pulmonary artery trunk consistent with pulmonary hypertension. She has moderate calcification of the aortic valve. A fusiform aneurysmal dilatation of the ascending aorta measuring 5 x 4.9 cm in size. She also has old right-sided rib fractures. There is diffuse emphysematous changes bilaterally and few subcentimeter pulmonary nodules. Noted during her previous hospitalization, the patient had elevated troponins. Based on that, a cardiac catheterization was done and the patient was found to have mild disease involving the LAD in the order of 40%, RCA had a focal proximal stenosis in the order of 95% and the patient had a drug-eluting stent placed in the RCA 1. Most recent echocardiogram from October 2022 also showed severe aortic stenosis, left ventricle ejection fraction of 45% with a RVSP of 39. On today's evaluation of 05/12/2023, the patient is feeling better. The patient has spent the whole day on the BiPAP yesterday and the patient is currently off the BiPAP. She was utilizing BiPAP at a pressure of 12/5 cm of water with an FiO2 of 45%. She is awake and alert and communicating. Chest x-ray shows bibasilar pulmonary infiltrates and the patient is currently covered with broad- spectrum antibiotics. The patient is white cell count today's of 14.3, hemoglobin was at 10.3 and a sodium level is at 134 with a potassium level of 4 and a BUN of 18 with a creatinine of 0.65. Potassium levels at 4.0. The patient continues to be on bronchodilators with DuoNeb updrafts. The patient is also on accommodation Perforomist and Pulmicort. The patient on IV Solu-Medrol. The patient remains on accommodation of Zosyn and vancomycin. Hemodynamically stable. Awake and alert and communicating. Cultures are still pending for now. 05/13/2023, the patient is on oxygen at 5 L. The patient was taken off the BiPAP this morning. Overnight, the patient was in the BiPAP at a pressure of 12/5 with an FiO2 of 45%. She is tolerating the BiPAP reasonably well. Chest x-ray still showing limited bibasilar pulmonary infiltrates. The patient continues to be on a combination of Zosyn and vancomycin. She did encounter some shortness of breath yesterday. She was given a dose of Lasix 40 mg IV push and her respiratory status improved accordingly. The white cycles of 12, he was at 9.5, BUN is at 27 with a creatinine of 0.7 and a sodium levels of 135. Alert and awake. Communicating. No signs of any CO2 narcosis. Remains on bronchodilators. Tolerating her diet. No nausea or vomiting. No chest pain. 05/14/2023, the patient is able. Utilizing the BiPAP overnight. Currently on 5 L of oxygen by nasal cannula. No new complaints. Remains on Zosyn and vancomycin. Remains on IV Solu-Medrol. She was started also on oral Lasix 40 mg by mouth daily. No signs of any CO2 narcosis. The echoes at 12 with a hemoglobin of 9.3, sodium is at 141 with a BUN of 34 and a creatinine of 0.7. Objective - Vital Signs Vital signs: Vital Signs Temp 97.8 F 05/14/23 08:00 Pulse 80 05/14/23 09:03 Resp 23 05/14/23 08:00 BP 159/95 05/14/23 08:00 Pulse Ox 96 05/14/23 08:50 FiO2 45 05/14/23 09:01 Intake & Output 05/13/23 05/14/23 05/14/23 18:59 06:59 18:59 Intake Total 1050 Balance 1050 Intake: IV 610 Piperacillin-Tazobactam 3 100 .375 gm In Sodium Chloride 0.9% 100 ml @ 25 mls/hr IVPB Q8HR [facility] Rx# :[id number] Sodium Chloride 0.9% 1, 10 000 ml @ 75 mls/hr IV . [id number] [facility] Rx#:[id number] Vancomycin 1,500 mg In 500 Sodium Chloride 0.9% 500 ml 500 ml @ 167 mls/hr IVPB Q12H [facility] Rx#: [id number] Oral 440 Other: Voiding Method External Catheter External Catheter # Voids 1 # Bowel Movements 1 1 - Exam GENERAL EXAM: Alert, 62-year-old obese white female, alert and awake and communicating and the patient remains on 5 L of O2 nasal cannula EYES: Normal reaction of pupils, equal size. NOSE: Clear with pink turbinates. THROAT: No erythema or exudates. NECK: No masses, no JVD. CHEST: No chest wall deformity. LUNGS: Equal air entry with expiratory wheezes heard throughout, breath sounds are markedly diminished bilaterally. CVS: S1 and S2 normal with systolic ejection audible murmur, regular rhythm. No extra heart sounds. ABDOMEN:Obese abdomen, no hepatosplenomegaly, active bowel sounds, no guarding or rigidity. SPINE: No scoliosis or deformity SKIN: No rashes CENTRAL NERVOUS SYSTEM: No focal deficits, tone is normal in all 4 extremities. EXTREMITIES: There is no peripheral edema, clubbing, or cyanosis. Peripheral pulses are intact. - Labs CBC & Chem 7: 05/14/23 05:54 05/14/23 05:54 Labs: Abnormal Lab Results - Last 24 Hours (Table) 05/13/23 05/13/23 05/13/23 Range/Units 11:06 17:19 20:56 WBC (4.50-10.00) X 10*3/uL RBC (4.10-5.20) X 10*6/uL Hgb (12.0-15.0) g/dL Hct (37.2-46.3) % MCV (80.0-97.0) FL MCHC (32.0-37.0) g/dL Immature Gran # (0.00-0.04) X 10*3/uL Neutrophils # (1.80-7.70) X 10*3/uL Lymphocytes # (0.90-5.00) X 10*3/uL Eosinophils # (0.04-0.35) X 10*3/uL Carbon Dioxide (22-30) mmol/L BUN (7-17) mg/dL Glucose (74-99) mg/dL POC Glucose (mg/dL) 218 H 209 H 157 H (70-110) mg/dL C-Reactive Protein (<1.0) mg/dL 05/14/23 05/14/23 05/14/23 Range/Units 05:54 05:54 06:26 WBC 12.10 H (4.50-10.00) X 10*3/uL RBC 3.13 L (4.10-5.20) X 10*6/uL Hgb 9.3 L (12.0-15.0) g/dL Hct 31.2 L (37.2-46.3) % MCV 99.7 H (80.0-97.0) FL MCHC 29.8 L (32.0-37.0) g/dL Immature Gran # 0.17 H (0.00-0.04) X 10*3/uL Neutrophils # 10.59 H (1.80-7.70) X 10*3/uL Lymphocytes # 0.54 L (0.90-5.00) X 10*3/uL Eosinophils # 0 L (0.04-0.35) X 10*3/uL Carbon Dioxide 38 H (22-30) mmol/L BUN 34 H (7-17) mg/dL Glucose 152 H (74-99) mg/dL POC Glucose (mg/dL) 158 H (70-110) mg/dL C-Reactive Protein 3.9 H (<1.0) mg/dL Microbiology - Last 24 Hours (Table) 05/11/23 12:36 Blood Culture - Preliminary Blood 05/11/23 12:36 Blood Culture - Preliminary Blood Assessment and Plan Plan: Acute on chronic hypoxic and hypercapnic respiratory failure related to COPD exacerbation, currently off BiPAP in back to 5 L of oxygen by nasal cannula Left lower lobe pneumonia, chest x-ray from today showing bibasilar pulmonary infiltrate and the patient is currently on combination of Zosyn and vancomycin The patient level of consciousness, likely secondary to CO2 narcosis Advanced COPD with an FEV1 of less than 30% of predicted Chronic hypoxic respiratory failure maternal O2 at 5 L per minute nasal cannula Coronary artery disease with recent non-STEMI and the patient is post stenting of the RCA. The patient also has a residual 40% involving the LAD Chronic lower back pain Moderate to severe aortic stenosis with a peak gradient of 69 and a mean gradient of 46 and the estimated valve area of 0.9 Systolic heart failure with an ejection fraction of 45% Secondary pulmonary hypertension Ascending thoracic aortic aneurysm measuring 4.9 x 5 cm in size Plan Continue BiPAP overnight and utilize oxygen at 5 L during the day Titrate oxygen flow to maintain saturation above 90% Utilize BiPAP overnight Continue IV Solu-Medrol 60 mg every 6 hours transitioned this patient to oral prednisone as of tomorrow Stop the vancomycin Continue IV Zosyn Lovenox 40 mg for DVT prophylaxis Continue Lasix 40 mg by mouth on a daily basis Continue aspirin and Plavix . And resume the rest of the oral medications from home. Hold lisinopril for now. Continue [facility] on Pulmicort neb treatments twice a day Condition is critical and we'll continue to follow. She is a DNR/DNI CODE STATUS on previous admissions. We'll chest for outside the intensive care unit today.
--- NOTE | 2023-05-14 16:27 | P.PN ---
Subjective Progress Note Date: 05/14/23 Progress note 05/14/2023 Patient is on 5 L oxygen. Blood pressure 148/90, heart rate 98 beats a minute. 05/13/2023 Patient is transferred out of ICU. She is on 5 L oxygenation. On exam she is still very tight on lung exam. HISTORY OF PRESENTING ILLNESS Patient is a 62-year-old female with history of stage D COPD, chronic hypoxic and hypercapnic respiratory failure on home oxygen and BiPAP support. Patient was previously hospitalized in early part of March with hypoxic and hypercapnic respiratory failure along with COPD exacerbation. She had a echocardiogram done which showed concerns of possible severe aortic st enosis with mean gradient of 42 mmHg. EF 45-50%, RVSP 39 mmHg She underwent a heart catheterization which showed 40% mid LAD stenosis and 90% proximal RCA stenosis for which she received a drug-eluting stent This time she presented to the hospital because of worsening shortness of breath and difficulty breathing along with cough. On admission her blood gases showed a pH of 2.7, CO2 of 72, oxygenation of 70 suggestive of acute on chronic hypercapnic respiratory failure with metabolic acidosis. She had CT angios chest done in March 2023 which showed dilated ascending aorta measuring at 5 x 4.9 cm. REVIEW OF SYSTEMS 14 point review of system is negative except what is mentioned above in HPI. PHYSICAL EXAMINATION Vital signs reviewed. Neck: no jugular venous distention. Lungs: Diffuse wheezing in bilateral lung elkins Cardiac: Regular rate and rhythm, systolic murmur audible in aortic area. Abdomen: Soft nontender, positive bowel sounds Extremities: No edema, intact distal pulses. Neuro: Alert, oritented, no focal deficits, detailed neuro exam was not performed ASSESSMENT Acute on chronic hypoxic and hypercapnic respiratory failure Respiratory acidosis COPD exacerbation, moderate to severe Metabolic encephalopathy due to hypercapnia CAD status post PCI to proximal RCA March 2023 Severe aortic stenosis Ascending aortic aneurysm measuring 5 cm Heart failure with mildly reduced ejection fraction, EF 40-45%, currently euvolemic Previous tobacco smoker Morbid obesity PLAN Continue aspirin, Plavix, atorvastatin, metoprolol 25 mg twice a day Other comorbidity management as per the primary team Agree with BiPAP support COPD management as per pulmonary team For some reason patient did not follow-up with cardiology when she was discharged home last time. This time he was set up an outpatient follow-up with CT surgery team to get evaluated for aortic aneurysm and severe aortic stenosis. Patient is at very high surgical risk due to stage D COPD and essentially is a non-surgical candidate. Due to her aortic aneurysm she might not be a good candidate for TAVR. Prior to discharge, we will get CT surgery's opinion. If not a candidate for either therapy, hospice should be considered. I have had this discussion with the patient and her at the bedside but I was not able to get an understanding how much insight does patient and her family has about her disease Objective - Vital Signs Vital signs: Vital Signs Temp 98.5 F 05/14/23 14:00 Pulse 98 05/14/23 15:59 Resp 18 05/14/23 14:00 BP 148/80 05/14/23 14:00 Pulse Ox 99 05/14/23 14:00 FiO2 45 05/14/23 15:52 Intake & Output 05/13/23 05/14/23 05/14/23 18:59 06:59 18:59 Intake Total 1050 Balance 1050 Intake: IV 610 Piperacillin-Tazobactam 3 100 .375 gm In Sodium Chloride 0.9% 100 ml @ 25 mls/hr IVPB Q8HR [facility] Rx# :[id number] Sodium Chloride 0.9% 1, 10 000 ml @ 75 mls/hr IV . [id number] [facility] Rx#:[id number] Vancomycin 1,500 mg In 500 Sodium Chloride 0.9% 500 ml 500 ml @ 167 mls/hr IVPB Q12H [facility] Rx#: [id number] Oral 440 Other: Voiding Method External Catheter External Catheter # Voids 1 1 # Bowel Movements 1 1 1 - Labs CBC & Chem 7: 05/14/23 05:54 05/14/23 05:54 Labs: Abnormal Lab Results - Last 24 Hours (Table) 05/13/23 05/13/23 05/14/23 Range/Units 17:19 20:56 05:54 WBC 12.10 H (4.50-10.00) X 10*3/uL RBC 3.13 L (4.10-5.20) X 10*6/uL Hgb 9.3 L (12.0-15.0) g/dL Hct 31.2 L (37.2-46.3) % MCV 99.7 H (80.0-97.0) FL MCHC 29.8 L (32.0-37.0) g/dL Immature Gran # 0.17 H (0.00-0.04) X 10*3/uL Neutrophils # 10.59 H (1.80-7.70) X 10*3/uL Lymphocytes # 0.54 L (0.90-5.00) X 10*3/uL Eosinophils # 0 L (0.04-0.35) X 10*3/uL Carbon Dioxide (22-30) mmol/L BUN (7-17) mg/dL Glucose (74-99) mg/dL POC Glucose (mg/dL) 209 H 157 H (70-110) mg/dL C-Reactive Protein (<1.0) mg/dL 05/14/23 05/14/23 05/14/23 Range/Units 05:54 06:26 11:35 WBC (4.50-10.00) X 10*3/uL RBC (4.10-5.20) X 10*6/uL Hgb (12.0-15.0) g/dL Hct (37.2-46.3) % MCV (80.0-97.0) FL MCHC (32.0-37.0) g/dL Immature Gran # (0.00-0.04) X 10*3/uL Neutrophils # (1.80-7.70) X 10*3/uL Lymphocytes # (0.90-5.00) X 10*3/uL Eosinophils # (0.04-0.35) X 10*3/uL Carbon Dioxide 38 H (22-30) mmol/L BUN 34 H (7-17) mg/dL Glucose 152 H (74-99) mg/dL POC Glucose (mg/dL) 158 H 175 H (70-110) mg/dL C-Reactive Protein 3.9 H (<1.0) mg/dL Microbiology - Last 24 Hours (Table) 05/11/23 12:36 Blood Culture - Preliminary Blood 05/11/23 12:36 Blood Culture - Preliminary Blood
[2023-05-14 16:54] LABS: Glucose,Whole Blood 163 mg/dL (70-110)
[2023-05-14 21:23] LABS: Glucose,Whole Blood 250 mg/dL (70-110)
[2023-05-15 06:49] LABS: Glucose,Whole Blood 169 mg/dL (70-110)
[2023-05-15 10:55] LABS: Basophils # (A) 0.04 X 10*3/uL (0.00-0.10); Basophils % (A) 0.4 %; Eosinophils # (A) 0 X 10*3/uL (0.04-0.35); Eosinophils % (A) 0 %; HCT 30.4 % (37.2-46.3); HGB 9.1 g/dL (12.0-15.0); Lymphocytes % (A) 6.2 %; MCH 29.3 pg (27.0-32.0); MCHC 29.9 g/dL (32.0-37.0); MCV 97.7 FL (80.0-97.0); Mean Platelet Volume 9.7 FL (9.5-12.2); Monocytes # (A) 0.77 X 10*3/uL (0.20-1.00); NRBC Per 100 WBC 0 X 10*3/uL (0.00-0.01); Neutrophils # (A) 7.97 X 10*3/uL (1.80-7.70); Neutrophils % (A) 82.3 %; Platelet Count 299 X 10*3/uL (140-440); RBC 3.11 X 10*6/uL (4.10-5.20); RDW 13.9 % (11.5-14.5); WBC 9.68 X 10*3/uL (4.50-10.00)
[2023-05-15 11:15] LABS: BUN/Creat Ratio 45.17 Ratio (12.00-20.00); Blood Urea Nitrogen 27.1 mg/dL (9.0-27.0); Calcium 8.7 mg/dL (8.7-10.3); Carbon Dioxide 35.7 mmol/L (21.6-31.8); Chloride 103 mmol/L (96-109); Glucose 168 mg/dL (70-110); Sodium 145 mmol/L (135-145)
[2023-05-15 11:38] LABS: Glucose,Whole Blood 207 mg/dL (70-110)
--- NOTE | 2023-05-15 15:10 | P.PN ---
Subjective Progress Note Date: 05/15/23 62-year-old female patient was brought into the ED with diminished level of consciousness, respiratory distress and hypercapnic respiratory failure. The patient is known to have chronic hypoxic/hypercapnic respiratory failure due to advanced COPD and she has had multiple aspirations the past for hypoxic and hypercapnic respiratory failure and her last hospital this was approximately 3 weeks ago and the patient was supported with BiPAP therapy with subsequent improvement. She is a nonsmoker for now. She has quit smoking. She did have a low-grade fever at home. No nausea or emesis. Information was provided by the hospital at the bedside. Chest exit shows a left lower lobe consolidation suggestive of a pneumonia. The patient was given Rocephin and Zithromax in the emergency department. The patient was started also on bronchodilators and steroids. The patient is currently on a BiPAP at a pressure of 12/5 cm of water and FiO2 is being titrated to maintain saturation above 90%. After she arrived to the intensive care unit, the patient was given a blood gas that showed a pH of 7.26 with a pCO2 of 72 and pO2 of 79 and this was done on a BiPAP of 12/5 with an FiO2 of 45%. Her potassium dropped down to 4.8 from 6 with a BUN of 18 and a creatinine of 0.4. UA showed +4 glucose. The viral panel is negative. The white cycles of 16.3. Chest x-ray showing a left lower lobe consolidation. In terms of her COPD, the patient has advanced O2 dependent COPD and she is typically on 5 L at home in her FEV1 is less than 30% of predicted. CT angiogram that was done back in March 2023 showed no evidence of any pulmonary embolism. The patient has enlarged pulmonary artery trunk consistent with pulmonary hypertension. She has moderate calcification of the aortic valve. A fusiform aneurysmal dilatation of the ascending aorta measuring 5 x 4.9 cm in size. She also has old right-sided rib fractures. There is diffuse emphysematous changes bilaterally and few subcentimeter pulmonary nodules. Noted during her previous hospitalization, the patient had elevated troponins. Based on that, a cardiac catheterization was done and the patient was found to have mild disease involving the LAD in the order of 40%, RCA had a focal proximal stenosis in the order of 95% and the patient had a drug-eluting stent placed in the RCA 1. Most recent echocardiogram from October 2022 also showed severe aortic stenosis, left ventricle ejection fraction of 45% with a RVSP of 39. On today's evaluation of 05/12/2023, the patient is feeling better. The patient has spent the whole day on the BiPAP yesterday and the patient is currently off the BiPAP. She was utilizing BiPAP at a pressure of 12/5 cm of water with an FiO2 of 45%. She is awake and alert and communicating. Chest x-ray shows bibasilar pulmonary infiltrates and the patient is currently covered with broad- spectrum antibiotics. The patient is white cell count today's of 14.3, hemoglobin was at 10.3 and a sodium level is at 134 with a potassium level of 4 and a BUN of 18 with a creatinine of 0.65. Potassium levels at 4.0. The patient continues to be on bronchodilators with DuoNeb updrafts. The patient is also on accommodation Perforomist and Pulmicort. The patient on IV Solu-Medrol. The patient remains on accommodation of Zosyn and vancomycin. Hemodynamically stable. Awake and alert and communicating. Cultures are still pending for now. 05/13/2023, the patient is on oxygen at 5 L. The patient was taken off the BiPAP this morning. Overnight, the patient was in the BiPAP at a pressure of 12/5 with an FiO2 of 45%. She is tolerating the BiPAP reasonably well. Chest x-ray still showing limited bibasilar pulmonary infiltrates. The patient continues to be on a combination of Zosyn and vancomycin. She did encounter some shortness of breath yesterday. She was given a dose of Lasix 40 mg IV push and her respiratory status improved accordingly. The white cycles of 12, he was at 9.5, BUN is at 27 with a creatinine of 0.7 and a sodium levels of 135. Alert and awake. Communicating. No signs of any CO2 narcosis. Remains on bronchodilators. Tolerating her diet. No nausea or vomiting. No chest pain. 05/14/2023, the patient is able. Utilizing the BiPAP overnight. Currently on 5 L of oxygen by nasal cannula. No new complaints. Remains on Zosyn and vancomycin. Remains on IV Solu-Medrol. She was started also on oral Lasix 40 mg by mouth daily. No signs of any CO2 narcosis. The echoes at 12 with a hemoglobin of 9.3, sodium is at 141 with a BUN of 34 and a creatinine of 0.7. The patient is seen today 05/15/2023 in follow-up on the regular medical floor. She is currently sitting up at the bedside. Awake and alert in no acute distress. Feeling a bit better today compared to yesterday. She is still requiring BiPAP 12/5 and 45% throughout the evening and during the day while napping. Otherwise she is on 5 L/m per nasal cannula. Follow-up chest x-ray revealed improved pulmonary vascular congestion. No dense airspace consolidation. No pleural effusion or pneumothorax. Cultures revealed no growth. White count 9.6. Hemoglobin 9.1. Platelets 299. Sodium 145. Po tassium 4.0. Bicarb 36. BUN 27. Creatinine 0.6. Glucose 168. Pro-calcitonin 0.13. She remains on antibiotics in the form of Zosyn. Continue to bronchodilators, steroids. Lovenox for DVT prophylaxis. Remains on oral diuretics. Objective - Vital Signs Vital signs: Vital Signs Temp 98.4 F 05/15/23 06:59 Pulse 96 05/15/23 12:10 Resp 18 05/15/23 06:59 BP 142/90 05/15/23 06:59 Pulse Ox 84 L 05/15/23 06:59 FiO2 45 05/15/23 08:38 Intake & Output 05/14/23 05/15/23 05/15/23 18:59 06:59 18:59 Other: Voiding Method External Catheter Bedside Commode External Catheter # Voids 4 3 1 # Bowel Movements 1 2 - Exam GENERAL EXAM: Alert, obese 62-year-old female, on BiPAP alternating with 5 L nasal cannula, comfortable in no apparent distress. HEAD: Normocephalic. EYES: Normal reaction of pupils, equal size. NOSE: Clear with pink turbinates. THROAT: No erythema or exudates. NECK: No masses, no JVD. CHEST: No chest wall deformity. LUNGS: Equal air entry with crackles in the bilateral bases. CVS: S1 and S2 normal with no audible murmur, regular rhythm. ABDOMEN: No hepatosplenomegaly, normal bowel sounds, no guarding or rigidity. SPINE: No scoliosis or deformity SKIN: No rashes CENTRAL NERVOUS SYSTEM: No focal deficits, tone is normal in all 4 extremities. EXTREMITIES: There is 1+ peripheral edema. No clubbing, no cyanosis. Periphe ral pulses are intact. - Labs CBC & Chem 7: 05/15/23 05:49 05/15/23 05:49 Labs: Abnormal Lab Results - Last 24 Hours (Table) 05/14/23 05/14/23 05/15/23 Range/Units 16:52 21:22 05:49 RBC (4.10-5.20) X 10*6/uL Hgb (12.0-15.0) g/dL Hct (37.2-46.3) % MCV (80.0-97.0) FL MCHC (32.0-37.0) g/dL Immature Gran # (0.00-0.04) X 10*3/uL Neutrophils # (1.80-7.70) X 10*3/uL Lymphocytes # (0.90-5.00) X 10*3/uL Eosinophils # (0.04-0.35) X 10*3/uL Carbon Dioxide (21.6-31.8) mmol/L BUN (9.0-27.0) mg/dL BUN/Creatinine Ratio (12.00-20.00) Ratio Glucose (70-110) mg/dL POC Glucose (mg/dL) 163 H 250 H (70-110) mg/dL Procalcitonin 0.13 H (0.02-0.09) ng/mL 05/15/23 05/15/23 05/15/23 Range/Units 05:49 05:49 06:48 RBC 3.11 L (4.10-5.20) X 10*6/uL Hgb 9.1 L (12.0-15.0) g/dL Hct 30.4 L (37.2-46.3) % MCV 97.7 H (80.0-97.0) FL MCHC 29.9 L (32.0-37.0) g/dL Immature Gran # 0.30 H (0.00-0.04) X 10*3/uL Neutrophils # 7.97 H (1.80-7.70) X 10*3/uL Lymphocytes # 0.60 L (0.90-5.00) X 10*3/uL Eosinophils # 0 L (0.04-0.35) X 10*3/uL Carbon Dioxide 35.7 H (21.6-31.8) mmol/L BUN 27.1 H (9.0-27.0) mg/dL BUN/Creatinine Ratio 45.17 H (12.00-20.00) Ratio Glucose 168 H (70-110) mg/dL POC Glucose (mg/dL) 169 H (70-110) mg/dL Procalcitonin (0.02-0.09) ng/mL 05/15/23 Range/Units 11:37 RBC (4.10-5.20) X 10*6/uL Hgb (12.0-15.0) g/dL Hct (37.2-46.3) % MCV (80.0-97.0) FL MCHC (32.0-37.0) g/dL Immature Gran # (0.00-0.04) X 10*3/uL Neutrophils # (1.80-7.70) X 10*3/uL Lymphocytes # (0.90-5.00) X 10*3/uL Eosinophils # (0.04-0.35) X 10*3/uL Carbon Dioxide (21.6-31.8) mmol/L BUN (9.0-27.0) mg/dL BUN/Creatinine Ratio (12.00-20.00) Ratio Glucose (70-110) mg/dL POC Glucose (mg/dL) 207 H (70-110) mg/dL Procalcitonin (0.02-0.09) ng/mL Microbiology - Last 24 Hours (Table) 05/11/23 12:36 Blood Culture - Preliminary Blood 05/11/23 12:36 Blood Culture - Preliminary Blood Assessment and Plan Assessment: Acute on chronic hypoxic and hypercapnic respiratory failure related to COPD exacerbation, currently on BiPAP alternating with 5 L of oxygen by nasal cannula Left lower lobe pneumonia, chest x-ray from today showing bibasilar pulmonary infiltrate and the patient is currently on Zosyn Altered mental status likely secondary to CO2 narcosis Advanced COPD with an FEV1 of less than 30% of predicted Chronic hypoxic respiratory failure maternal O2 at 5 L per minute nasal cannula Coronary artery disease with recent non-STEMI and the patient is post stenting of the RCA. The patient also has a residual 40% involving the LAD Chronic lower back pain Moderate to severe aortic stenosis with a peak gradient of 69 and a mean gradient of 46 and the estimated valve area of 0.9 Systolic heart failure with an ejection fraction of 45% Secondary pulmonary hypertension Ascending thoracic aortic aneurysm measuring 4.9 x 5 cm in size Plan: The patient was seen and evaluated Chest x-ray, labs and medications reviewed Remains on Zosyn Continued on bronchodilators, steroids Continued on diuretics Lovenox for DVT prophylaxis Titrate the FiO2 as tolerated We will continue to follow I have personally seen and examined the patient, performed the documentation and the assessment and plan as written. Number of minutes spent on the visit: 10.
--- NOTE | 2023-05-15 15:55 | CDI ---
Documentation Clarification Form Date: 05/15/2023 03:30:35 PM From: Floresita Jorge RN, CCDS Phone: [phone] Admit Date: 05/11/2023 12:50:00 PM Patient Name: Blanka Porras Visit Number: [id number] Discharge Date: ATTENTION: The Clinical Documentation Specialists (CDI) and [facility] Coding Staff appreciate your assistance in clarifying documentation. Please respond to the clarification below the line at the bottom and electronically sign. The CDI & [facility] Coding staff will review the response and follow-up if needed. Please note: Queries are made part of the Legal Health Record. If you have any questions, please contact the author of this message via ITS. Dr. Nelly Rahman Your patient has the documented symptom of Altered Mental Status. likely secondary to CO2 narcosis Additional clarification regarding the etiology/cause of this symptom is requested. History/Risk Factors: Clinical Indicators: 62-year-old female present to ED with diminished level of consciousness, respiratory distress and hypercapnic respiratory failure. Chest x-ray shows a left lower lobe consolidation suggestive of a pneumonia. Labs: ABG: pH 7.26, pCO2 72, pO2 79, hco3 32 Total CO2 34 CL 96, CO2 35 Treatment: Telemetry/ICU/Monitoring BIPAP at a pressure of 12/5 and Fi02 is at 45% (titrate per orders) Duonebs 0.5 Mg-3Mg/3Ml soln per orders Pulmicort BID Zosyn 3.375 GM IVPB Q 8 HRS Solu-Medrol 60MG IV Q 6 HRS 05/11-05/15 Per orders Vancomycin 1,250 MG IVPB PTD 05/14 Please clarify the etiology of the symptom of Altered Mental Status CO2 Narcosis [ ] CO2 Narcosis with Hypoxic Encephalopathy [ ] Other condition (please specify) [ ] Unable to determine (Template Last Revised: May 2020) Altered mental status likely secondary to CO2 narcosis and hypoxemichypercapnic encephalopathy Signed By: <Electronically signed by Madelyn CLARK> 05/16/23 1327 <Electronically signed by Tim Gannon MD> 05/16/23 1434 <Electronically signed by Tim Gannon MD> MTDD
[2023-05-15 16:56] LABS: Glucose,Whole Blood 228 mg/dL (70-110)
[2023-05-15] MEDS: ACETAMINOPHEN TAB 325 MG TAB PO PRN (20:20)
[2023-05-15 20:25] LABS: Glucose,Whole Blood 273 mg/dL (70-110)
[2023-05-16 05:51] LABS: Glucose,Whole Blood 164 mg/dL (70-110)
--- NOTE | 2023-05-16 10:01 | P.PN ---
Subjective Progress Note Date: 05/15/23 * 62-year-old patient with past medical history significant for COPD severe with FEV1 less than 30%, chronic hypoxic respiratory failure on 5 L of oxygen at baseline, we couldn't history of COPD exacerbation recently discharged in April 2023, moderate severe aortic stenosis, chronic congestive heart eliot lure with ejection fraction of 45%, pulmonary hypertension, ascending thoracic aneurysm, history of coronary artery disease, history of anxiety, depression, chronic back pain presents to the emergency department with complains of shortness of breath. Patient states she has been having worsening symptoms for the last 2 or 3 days. Patient was discharged on 04/27/2023 admitted with similar presentation. Patient states she has been having low-grade fever at home. EMS was called and patient was placed on noninvasive ventilation for respiratory distress. Patient states she took multiple breathing treatments at home without any improvement. Patient was anxious at the time of presentation in ED. Patient was started on IV antibiotics including Zosyn and Levaquin in ED. Patient was placed on BiPAP in ER was given 1 L of fluid bolus, due to severe anxiety patient is a 1 dose of IV Ativan and breathing treatments. * Review of blood work showed leukocytosis with WBC 16.3 hemoglobin 11.9 platel et count of 244 serum chemistry showed sodium 136 potassium of 6 chloride 96 BUN 18 creatinine 0.48, blood sample was considered hemolyzed and repeat sample was ordered N-terminal proBNP 238, albumin 3.9 patient tested negative for RSV, Covid, influenza due to severe respiratory distress patient admitted to medical ICU with consultation from medical ICU team * 05/12/2023: Patient seen and evaluated bedside, at bedside patient remains on BiPAP, CBC shows improvement in WBC count, hemoglobin 10.3, serum chemistry reviewed, renal function stable, patient is alert and oriented 4 * 05/13/2023: Patient seen and evaluated bedside, patient transition to 5 L oxygen through nasal cannula. Continue patient on broad-spectrum antibiotic with CBC showed WBC of 12.1 hemoglobin 9.5 serum chemistry sodium 136 potassium 3.6 renal function within normal limits patient is off BiPAP * 05/14/2023: Patient seen and evaluated bedside, patient accompanied by her shortness of breath is improved, respiratory distress has improved patient transferred out of ICU patient on 5 L of oxygen. Continue current antibiotic regimen including Zosyn and vancomycin day 3, antibiotic to be de- escalate depending on clinical course CRP 3.9. Patient does get shortness of breath on minimal exertion 05/15/2023 Patient is seen in follow-up here with COPD exacerbation also with concerns of pneumonia being followed by pulmonary. Patient is maintained on IV steroids along with DuoNeb treatments and antibiotics. Chest x-ray shows mild CHF and interval improvement in pulmonary vascular congestion. Patient has been transition to oral Lasix. Patient will continue on IV steroids along with Accu- Cheks before meals and at bedtime and sliding scale. Encouraged increase activity as tolerated. Given significant comorbidities, prognosis is definitely guarded. Review of systems: Constitutional: No reports of fatigue, fever, or chills Cardiovascular: No reports of chest pain or palpitations Respiratory: reports of continued shortness of breath although feels slightly improved, reports continued cough GI: No reports of nausea, vomiting, or diarrhea : No reports of dysuria or retention Neurovascular: reports of generalized weakness All medications have been reviewed PHYSICAL EXAMINATION: GENERAL: The patient is alert and oriented x 3, on high flow nasal cannula however respiratory distress is improved, obese HEENT: Pupils are round and equally reacting to light. EOMI Normocephalic, atraumatic. No pharyngeal erythema. No thyromegaly. CARDIOVASCULAR: S1 and S2 present. No murmurs, rubs, or gallops. PULMONARY: Improved breath sounds bilaterally ABDOMEN: Soft, nontender, nondistended, normoactive bowel sounds. No palpable organomegaly. MUSCULOSKELETAL: No joint swelling or deformity. EXTREMITIES: No cyanosis, clubbing, or pedal edema. NEUROLOGICAL: Gross neurological examination did not reveal any focal deficits. SKIN: No rashes. Assessment: * Acute on chronic hypoxic respiratory failure with COPD exacerbation * Multifocal pneumonia * Coronary artery disease * History of chronic congestive heart failure systolic dysfunction * Advanced COPD * History of anxiety/depression * History of hypertension * History of dyslipidemia * Recurrent hospitalization for COPD/advance COPD Plan: * In regards to acute hypoxic respiratory failure >> continue patient on noninvasive ventilation as needed, weaned down to 5 L of oxygen through nasal cannula, >> pulmonary medicine followed maintained on continued breathing treatments IV Solu-Medrol broad-spectrum antibiotic on Zosyn and vancomycin day 3 * In regards to multifocal pneumonia follow-up on urine Legionella NEGATIVE , continue IV antibiotic, IV steroids, breathing treatment, check procalcitonin * In regards to history of coronary artery disease continue patient on aspirin, Plavix, metoprolol, withholding parameters * In regards to history of hypertension patient noted be hypotensive on admission, lisinopril placed on hold >> continue metoprolol with holding parameetes, patient placed back on Lasix * CODE STATUS is full code * prognosis remains guarded secondary to recurrent hospitalization with similar presentation The impression and plan of care has been dictated by Vanna Chacon, Nurse Practitioner as directed. Dr. Francisco MD I have performed a history and examination and MDM of this patient, discussed th e same with the dictator, and agree with the dictator's assessment and plan as written ,documented as a scribe. Based on total visit time, I have performed more than 50% of the visit. Objective - Vital Signs Vital signs: Vital Signs Temp 97.8 F 05/16/23 06:45 Pulse 96 05/16/23 08:29 Resp 19 05/16/23 06:45 BP 151/82 05/16/23 06:45 Pulse Ox 92 L 05/16/23 06:45 FiO2 45 05/16/23 04:44 Intake & Output 05/15/23 05/16/23 05/16/23 18:59 06:59 18:59 Other: # Voids 3 1 # Bowel Movements 2 1 - Labs CBC & Chem 7: 05/15/23 05:49 05/15/23 05:49 Labs: Abnormal Lab Results - Last 24 Hours (Table) 05/15/23 05/15/23 05/15/23 Range/Units 05:49 05:49 05:49 RBC 3.11 L (4.10-5.20) X 10*6/uL Hgb 9.1 L (12.0-15.0) g/dL Hct 30.4 L (37.2-46.3) % MCV 97.7 H (80.0-97.0) FL MCHC 29.9 L (32.0-37.0) g/dL Immature Gran # 0.30 H (0.00-0.04) X 10*3/uL Neutrophils # 7.97 H (1.80-7.70) X 10*3/uL Lymphocytes # 0.60 L (0.90-5.00) X 10*3/uL Eosinophils # 0 L (0.04-0.35) X 10*3/uL Carbon Dioxide 35.7 H (21.6-31.8) mmol/L BUN 27.1 H (9.0-27.0) mg/dL BUN/Creatinine Ratio 45.17 H (12.00-20.00) Ratio Glucose 168 H (70-110) mg/dL POC Glucose (mg/dL) (70-110) mg/dL Procalcitonin 0.13 H (0.02-0.09) ng/mL 05/15/23 05/15/23 05/15/23 Range/Units 11:37 16:54 20:23 RBC (4.10-5.20) X 10*6/uL Hgb (12.0-15.0) g/dL Hct (37.2-46.3) % MCV (80.0-97.0) FL MCHC (32.0-37.0) g/dL Immature Gran # (0.00-0.04) X 10*3/uL Neutrophils # (1.80-7.70) X 10*3/uL Lymphocytes # (0.90-5.00) X 10*3/uL Eosinophils # (0.04-0.35) X 10*3/uL Carbon Dioxide (21.6-31.8) mmol/L BUN (9.0-27.0) mg/dL BUN/Creatinine Ratio (12.00-20.00) Ratio Glucose (70-110) mg/dL POC Glucose (mg/dL) 207 H 228 H 273 H (70-110) mg/dL Procalcitonin (0.02-0.09) ng/mL 05/16/23 Range/Units 05:50 RBC (4.10-5.20) X 10*6/uL Hgb (12.0-15.0) g/dL Hct (37.2-46.3) % MCV (80.0-97.0) FL MCHC (32.0-37.0) g/dL Immature Gran # (0.00-0.04) X 10*3/uL Neutrophils # (1.80-7.70) X 10*3/uL Lymphocytes # (0.90-5.00) X 10*3/uL Eosinophils # (0.04-0.35) X 10*3/uL Carbon Dioxide (21.6-31.8) mmol/L BUN (9.0-27.0) mg/dL BUN/Creatinine Ratio (12.00-20.00) Ratio Glucose (70-110) mg/dL POC Glucose (mg/dL) 164 H (70-110) mg/dL Procalcitonin (0.02-0.09) ng/mL
[2023-05-16 11:39] LABS: Glucose,Whole Blood 190 mg/dL (70-110)
--- NOTE | 2023-05-16 13:27 | P.PN ---
Subjective Progress Note Date: 05/16/23 62-year-old female patient was brought into the ED with diminished level of consciousness, respiratory distress and hypercapnic respiratory failure. The patient is known to have chronic hypoxic/hypercapnic respiratory failure due to advanced COPD and she has had multiple aspirations the past for hypoxic and hypercapnic respiratory failure and her last hospital this was approximately 3 weeks ago and the patient was supported with BiPAP therapy with subsequent improvement. She is a nonsmoker for now. She has quit smoking. She did have a low-grade fever at home. No nausea or emesis. Information was provided by the hospital at the bedside. Chest exit shows a left lower lobe consolidation suggestive of a pneumonia. The patient was given Rocephin and Zithromax in the emergency department. The patient was started also on bronchodilators and steroids. The patient is currently on a BiPAP at a pressure of 12/5 cm of water and FiO2 is being titrated to maintain saturation above 90%. After she arrived to the intensive care unit, the patient was given a blood gas that showed a pH of 7.26 with a pCO2 of 72 and pO2 of 79 and this was done on a BiPAP of 12/5 with an FiO2 of 45%. Her potassium dropped down to 4.8 from 6 with a BUN of 18 and a creatinine of 0.4. UA showed +4 glucose. The viral panel is negative. The white cycles of 16.3. Chest x-ray showing a left lower lobe consolidation. In terms of her COPD, the patient has advanced O2 dependent COPD and she is typically on 5 L at home in her FEV1 is less than 30% of predicted. CT angiogram that was done back in March 2023 showed no evidence of any pulmonary embolism. The patient has enlarged pulmonary artery trunk consistent with pulmonary hypertension. She has moderate calcification of the aortic valve. A fusiform aneurysmal dilatation of the ascending aorta measuring 5 x 4.9 cm in size. She also has old right-sided rib fractures. There is diffuse emphysematous changes bilaterally and few subcentimeter pulmonary nodules. Noted during her previous hospitalization, the patient had elevated troponins. Based on that, a cardiac catheterization was done and the patient was found to have mild disease involving the LAD in the order of 40%, RCA had a focal proximal stenosis in the order of 95% and the patient had a drug-eluting stent placed in the RCA 1. Most recent echocardiogram from October 2022 also showed severe aortic stenosis, left ventricle ejection fraction of 45% with a RVSP of 39. On today's evaluation of 05/12/2023, the patient is feeling better. The patient has spent the whole day on the BiPAP yesterday and the patient is currently off the BiPAP. She was utilizing BiPAP at a pressure of 12/5 cm of water with an FiO2 of 45%. She is awake and alert and communicating. Chest x-ray shows bibasilar pulmonary infiltrates and the patient is currently covered with broad- spectrum antibiotics. The patient is white cell count today's of 14.3, hemoglobin was at 10.3 and a sodium level is at 134 with a potassium level of 4 and a BUN of 18 with a creatinine of 0.65. Potassium levels at 4.0. The patient continues to be on bronchodilators with DuoNeb updrafts. The patient is also on accommodation Perforomist and Pulmicort. The patient on IV Solu-Medrol. The patient remains on accommodation of Zosyn and vancomycin. Hemodynamically stable. Awake and alert and communicating. Cultures are still pending for now. 05/13/2023, the patient is on oxygen at 5 L. The patient was taken off the BiPAP this morning. Overnight, the patient was in the BiPAP at a pressure of 12/5 with an FiO2 of 45%. She is tolerating the BiPAP reasonably well. Chest x-ray still showing limited bibasilar pulmonary infiltrates. The patient continues to be on a combination of Zosyn and vancomycin. She did encounter some shortness of breath yesterday. She was given a dose of Lasix 40 mg IV push and her respiratory status improved accordingly. The white cycles of 12, he was at 9.5, BUN is at 27 with a creatinine of 0.7 and a sodium levels of 135. Alert and awake. Communicating. No signs of any CO2 narcosis. Remains on bronchodilators. Tolerating her diet. No nausea or vomiting. No chest pain. 05/14/2023, the patient is able. Utilizing the BiPAP overnight. Currently on 5 L of oxygen by nasal cannula. No new complaints. Remains on Zosyn and vancomycin. Remains on IV Solu-Medrol. She was started also on oral Lasix 40 mg by mouth daily. No signs of any CO2 narcosis. The echoes at 12 with a hemoglobin of 9.3, sodium is at 141 with a BUN of 34 and a creatinine of 0.7. The patient is seen today 05/15/2023 in follow-up on the regular medical floor. She is currently sitting up at the bedside. Awake and alert in no acute distress. Feeling a bit better today compared to yesterday. She is still requiring BiPAP 12/5 and 45% throughout the evening and during the day while napping. Otherwise she is on 5 L/m per nasal cannula. Follow-up chest x-ray revealed improved pulmonary vascular congestion. No dense airspace consolidation. No pleural effusion or pneumothorax. Cultures revealed no growth. White count 9.6. Hemoglobin 9.1. Platelets 299. Sodium 145. Po tassium 4.0. Bicarb 36. BUN 27. Creatinine 0.6. Glucose 168. Pro-calcitonin 0.13. She remains on antibiotics in the form of Zosyn. Continue to bronchodilators, steroids. Lovenox for DVT prophylaxis. Remains on oral diuretics. The patient is seen today May 16, 2023 and follow-up on the regular medical floor. She is currently sitting up. Awake and alert in no acute distress. Breathing easier today compared to yesterday. Not quite back to her baseline. She is continued on DuoNeb and elations, Pulmicort and perform scintillations, Solu-Medrol. Antibiotics in the form of Zosyn. Remains on Lovenox for DVT prophylaxis. Remains on oral diuretics. She did utilize BiPAP last night 12/5 and 45% FiO2. She is currently on 6 L high flow nasal cannula. Still somewhat bronchospastic and wheezing. Blood cultures revealed no growth. Glucose 164. Objective - Vital Signs Vital signs: Vital Signs Temp 97.8 F 05/16/23 06:45 Pulse 96 05/16/23 11:34 Resp 19 05/16/23 06:45 BP 151/82 05/16/23 06:45 Pulse Ox 92 L 05/16/23 06:45 FiO2 45 05/16/23 04:44 Intake & Output 05/15/23 05/16/23 05/16/23 18:59 06:59 18:59 Other: # Voids 3 1 # Bowel Movements 2 1 - Exam GENERAL EXAM: Alert, obese 62-year-old female, on 6 L nasal cannula, utilizing BiPAP at night, comfortable in no apparent distress. HEAD: Normocephalic. EYES: Normal reaction of pupils, equal size. NOSE: Clear with pink turbinates. THROAT: No erythema or exudates. NECK: No masses, no JVD. CHEST: No chest wall deformity. LUNGS: Equal air entry with crackles in the bilateral bases. CVS: S1 and S2 normal with no audible murmur, regular rhythm. ABDOMEN: No hepatosplenomegaly, normal bowel sounds, no guarding or rigidity. SPINE: No scoliosis or deformity SKIN: No rashes CENTRAL NERVOUS SYSTEM: No focal deficits, tone is normal in all 4 extremities. EXTREMITIES: There is 1+ peripheral edema. No clubbing, no cyanosis. Peripheral pulses are intact. - Labs CBC & Chem 7: 05/15/23 05:49 05/15/23 05:49 Labs: Abnormal Lab Results - Last 24 Hours (Table) 05/15/23 05/15/23 05/16/23 Range/Units 16:54 20:23 05:50 POC Glucose (mg/dL) 228 H 273 H 164 H (70-110) mg/dL 05/16/23 Range/Units 11:38 POC Glucose (mg/dL) 190 H (70-110) mg/dL Assessment and Plan Assessment: Acute on chronic hypoxic and hypercapnic respiratory failure related to COPD exacerbation, currently on BiPAP alternating with 5 L of oxygen by nasal cannula Left lower lobe pneumonia, chest x-ray from today showing bibasilar pulmonary infiltrate and the patient is currently on Zosyn Altered mental status likely secondary to CO2 narcosis and hypoxemichypercapnic encephalopathy Advanced COPD with an FEV1 of less than 30% of predicted Chronic hypoxic respiratory failure maintained on O2 at 5 L per minute nasal cannula Coronary artery disease with recent non-STEMI and the patient is post stenting of the RCA. The patient also has a residual 40% involving the LAD Chronic lower back pain Moderate to severe aortic stenosis with a peak gradient of 69 and a mean gradient of 46 and the estimated valve area of 0.9 Systolic heart failure with an ejection fraction of 45% Secondary pulmonary hypertension Ascending thoracic aortic aneurysm measuring 4.9 x 5 cm in size Plan: The patient was seen and evaluated Labs and medications reviewed Remains on Zosyn, bronchodilators, steroids Continued on diuretics Lovenox for DVT prophylaxis Will see if the patient can qualify for home BiPAP If not we will set up for outpatient workup Titrate the FiO2 as tolerated Possible discharge in the a.m. We will continue to follow I have personally seen and examined the patient, performed the documentation and the assessment and plan as written. Number of minutes spent on the visit: 10.
[2023-05-16 17:01] LABS: Glucose,Whole Blood 187 mg/dL (70-110)
[2023-05-16 21:10] LABS: Glucose,Whole Blood 152 mg/dL (70-110)
[2023-05-16] MEDS: BUDESONIDE 1 MG/2 ML NEBU INHALATION SCH (21:17)
--- NOTE | 2023-05-17 05:06 | P.PN ---
Subjective Progress Note Date: 05/16/23 * 62-year-old patient with past medical history significant for COPD severe with FEV1 less than 30%, chronic hypoxic respiratory failure on 5 L of oxygen at baseline, we couldn't history of COPD exacerbation recently discharged in April 2023, moderate severe aortic stenosis, chronic congestive heart eliot lure with ejection fraction of 45%, pulmonary hypertension, ascending thoracic aneurysm, history of coronary artery disease, history of anxiety, depression, chronic back pain presents to the emergency department with complains of shortness of breath. Patient states she has been having worsening symptoms for the last 2 or 3 days. Patient was discharged on 04/27/2023 admitted with similar presentation. Patient states she has been having low-grade fever at home. EMS was called and patient was placed on noninvasive ventilation for respiratory distress. Patient states she took multiple breathing treatments at home without any improvement. Patient was anxious at the time of presentation in ED. Patient was started on IV antibiotics including Zosyn and Levaquin in ED. Patient was placed on BiPAP in ER was given 1 L of fluid bolus, due to severe anxiety patient is a 1 dose of IV Ativan and breathing treatments. * Review of blood work showed leukocytosis with WBC 16.3 hemoglobin 11.9 platel et count of 244 serum chemistry showed sodium 136 potassium of 6 chloride 96 BUN 18 creatinine 0.48, blood sample was considered hemolyzed and repeat sample was ordered N-terminal proBNP 238, albumin 3.9 patient tested negative for RSV, Covid, influenza due to severe respiratory distress patient admitted to medical ICU with consultation from medical ICU team * 05/12/2023: Patient seen and evaluated bedside, at bedside patient remains on BiPAP, CBC shows improvement in WBC count, hemoglobin 10.3, serum chemistry reviewed, renal function stable, patient is alert and oriented 4 * 05/13/2023: Patient seen and evaluated bedside, patient transition to 5 L oxygen through nasal cannula. Continue patient on broad-spectrum antibiotic with CBC showed WBC of 12.1 hemoglobin 9.5 serum chemistry sodium 136 potassium 3.6 renal function within normal limits patient is off BiPAP * 05/14/2023: Patient seen and evaluated bedside, patient accompanied by her shortness of breath is improved, respiratory distress has improved patient transferred out of ICU patient on 5 L of oxygen. Continue current antibiotic regimen including Zosyn and vancomycin day 3, antibiotic to be de- escalate depending on clinical course CRP 3.9. Patient does get shortness of breath on minimal exertion 05/15/2023 Patient is seen in follow-up here with COPD exacerbation also with concerns of pneumonia being followed by pulmonary. Patient is maintained on IV steroids along with DuoNeb treatments and antibiotics. Chest x-ray shows mild CHF and interval improvement in pulmonary vascular congestion. Patient has been transition to oral Lasix. Patient will continue on IV steroids along with Accu- Cheks before meals and at bedtime and sliding scale. Encouraged increase activity as tolerated. Given significant comorbidities, prognosis is definitely guarded. 05/16/2023 Patient is seen in follow-up today with pulmonary following maintained on BiPAP along with 5 to 6 L via nasal cannula during the day. Per family and patient, she is to have BiPAP for discharge planning in the home. Discussed further with pulmonary along with case management and will need outpatient testing prior to having BiPAP approved by insurance. Patient will need to follow-up with Dr. Rahman in the outpatient for further sleep studies. Patient is continued on DuoNeb treatments [id number] along with IV steroids and reports to feeling improved. Continue Accu-Cheks ACHS I will continue current regimen. Follow-up on repeat labs. Review of systems: Constitutional: No reports of fatigue, fever, or chills Cardiovascular: No reports of chest pain or palpitations Respiratory: reports of continued shortness of breath although feels slightly improved, reports continued cough GI: No reports of nausea, vomiting, or diarrhea : No reports of dysuria or retention Neurovascular: reports of generalized weakness All medications have been reviewed PHYSICAL EXAMINATION: GENERAL: The patient is alert and oriented x 3, on high flow 5 L nasal cannula however respiratory distress is improved, obese HEENT: Pupils are round and equally reacting to light. EOMI Normocephalic, atraumatic. No pharyngeal erythema. No thyromegaly. CARDIOVASCULAR: S1 and S2 present. No murmurs, rubs, or gallops. PULMONARY: Improved breath sounds bilaterally with continued scattered rhonchi and expiratory wheezing ABDOMEN: Soft, nontender, nondistended, normoactive bowel sounds. No palpable organomegaly. MUSCULOSKELETAL: No joint swelling or deformity. EXTREMITIES: No cyanosis, clubbing, or pedal edema. NEUROLOGICAL: Gross neurological examination did not reveal any focal deficits. SKIN: No rashes. Some bleeding and bruising noted at the subcutaneous injection sites from Lovenox on the abdomen Assessment: * Acute on chronic hypoxic respiratory failure with COPD exacerbation * Multifocal pneumonia, likely gram-negative * Coronary artery disease history maintained on aspirin and Plavix * History of chronic congestive heart failure systolic dysfunction, not in exacerbation * Advanced COPD * History of anxiety/depression * History of hypertension * History of dyslipidemia * Recurrent hospitalization for COPD/advance COPD * Morbid obesity with a BMI of 41.3 Plan: * In regards to acute hypoxic respiratory failure >> continue patient on noninvasive ventilation as needed, weaned down to 5 L of oxygen through nasal cannula, >> pulmonary medicine followed maintained on continued breathing treatments IV Solu-Medrol broad-spectrum antibiotic. Patient discussing that she needs BiPAP on discharge and discussed further with pulmonary and will need outpatient testing as this was confirmed with case management as well in order to be approved by insurance * In regards to multifocal pneumonia follow-up on urine Legionella NEGATIVE , continue IV antibiotic, IV steroids, breathing treatment, procalcitonin minimally elevated * In regards to history of coronary artery disease continue patient on aspirin, Plavix, metoprolol * In regards to history of hypertension patient noted be hypotensive on admission, lisinopril placed on hold >> continue metoprolol with holding parameetes, patient placed back on Lasix * CODE STATUS is full code * prognosis remains guarded secondary to recurrent hospitalization with similar presentation * Will await pulmonary clearance to discuss discharge planning The impression and plan of care has been dictated by Vanna Chacon, Nurse Practitioner as directed. Dr. Francisco MD I have performed a history and examination and MDM of this patient, discussed the same with the dictator, and agree with the dictator's assessment and plan as written ,documented as a scribe. Based on total visit time, I have performed more than 50% of the visit. Objective - Vital Signs Vital signs: Vital Signs Temp 97.8 F 05/16/23 06:45 Pulse 96 05/16/23 08:29 Resp 19 05/16/23 06:45 BP 151/82 05/16/23 06:45 Pulse Ox 92 L 05/16/23 06:45 FiO2 45 05/16/23 04:44 Intake & Output 05/15/23 05/16/23 05/16/23 18:59 06:59 18:59 Other: # Voids 3 1 # Bowel Movements 2 1 - Labs CBC & Chem 7: 05/15/23 05:49 05/15/23 05:49 Labs: Abnormal Lab Results - Last 24 Hours (Table) 05/15/23 05/15/23 05/15/23 Range/Units 05:49 05:49 05:49 RBC 3.11 L (4.10-5.20) X 10*6/uL Hgb 9.1 L (12.0-15.0) g/dL Hct 30.4 L (37.2-46.3) % MCV 97.7 H (80.0-97.0) FL MCHC 29.9 L (32.0-37.0) g/dL Immature Gran # 0.30 H (0.00-0.04) X 10*3/uL Neutrophils # 7.97 H (1.80-7.70) X 10*3/uL Lymphocytes # 0.60 L (0.90-5.00) X 10*3/uL Eosinophils # 0 L (0.04-0.35) X 10*3/uL Carbon Dioxide 35.7 H (21.6-31.8) mmol/L BUN 27.1 H (9.0-27.0) mg/dL BUN/Creatinine Ratio 45.17 H (12.00-20.00) Ratio Glucose 168 H (70-110) mg/dL POC Glucose (mg/dL) (70-110) mg/dL Procalcitonin 0.13 H (0.02-0.09) ng/mL 05/15/23 05/15/23 05/15/23 Range/Units 11:37 16:54 20:23 RBC (4.10-5.20) X 10*6/uL Hgb (12.0-15.0) g/dL Hct (37.2-46.3) % MCV (80.0-97.0) FL MCHC (32.0-37.0) g/dL Immature Gran # (0.00-0.04) X 10*3/uL Neutrophils # (1.80-7.70) X 10*3/uL Lymphocytes # (0.90-5.00) X 10*3/uL Eosinophils # (0.04-0.35) X 10*3/uL Carbon Dioxide (21.6-31.8) mmol/L BUN (9.0-27.0) mg/dL BUN/Creatinine Ratio (12.00-20.00) Ratio Glucose (70-110) mg/dL POC Glucose (mg/dL) 207 H 228 H 273 H (70-110) mg/dL Procalcitonin (0.02-0.09) ng/mL 05/16/23 Range/Units 05:50 RBC (4.10-5.20) X 10*6/uL Hgb (12.0-15.0) g/dL Hct (37.2-46.3) % MCV (80.0-97.0) FL MCHC (32.0-37.0) g/dL Immature Gran # (0.00-0.04) X 10*3/uL Neutrophils # (1.80-7.70) X 10*3/uL Lymphocytes # (0.90-5.00) X 10*3/uL Eosinophils # (0.04-0.35) X 10*3/uL Carbon Dioxide (21.6-31.8) mmol/L BUN (9.0-27.0) mg/dL BUN/Creatinine Ratio (12.00-20.00) Ratio Glucose (70-110) mg/dL POC Glucose (mg/dL) 164 H (70-110) mg/dL Procalcitonin (0.02-0.09) ng/mL
[2023-05-17 05:48] LABS: Glucose,Whole Blood 154 mg/dL (70-110)
[2023-05-17 11:06] LABS: Basophils # (A) 0.04 X 10*3/uL (0.00-0.10); Basophils % (A) 0.4 %; Eosinophils # (A) 0 X 10*3/uL (0.04-0.35); Eosinophils % (A) 0 %; HCT 33.4 % (37.2-46.3); HGB 10.1 g/dL (12.0-15.0); Lymphocytes # (A) 0.74 X 10*3/uL (0.90-5.00); Lymphocytes % (A) 6.8 %; MCH 29.4 pg (27.0-32.0); MCHC 30.2 g/dL (32.0-37.0); MCV 97.1 FL (80.0-97.0); Mean Platelet Volume 9.6 FL (9.5-12.2); Monocytes # (A) 0.87 X 10*3/uL (0.20-1.00); Monocytes % (A) 7.9 %; NRBC Per 100 WBC 0.03 X 10*3/uL (0.00-0.01); Neutrophils # (A) 8.81 X 10*3/uL (1.80-7.70); Neutrophils % (A) 80.4 %; Platelet Count 335 X 10*3/uL (140-440); RBC 3.44 X 10*6/uL (4.10-5.20); WBC 10.95 X 10*3/uL (4.50-10.00)
[2023-05-17 11:33] LABS: Blood Urea Nitrogen 24.6 mg/dL (9.0-27.0); Calcium 9.3 mg/dL (8.7-10.3); Carbon Dioxide 42.7 mmol/L (21.6-31.8); Chloride 96 mmol/L (96-109); Glucose 149 mg/dL (70-110); Potassium 3.1 mmol/L (3.5-5.5); Sodium 146 mmol/L (135-145)
[2023-05-17 12:06] LABS: Glucose,Whole Blood 290 mg/dL (70-110)
[2023-05-17] MEDS ORDERED: Potassium Replacement Protocol 1 EACH MISC MISCELLANE PRN (12:09)
[2023-05-17] MEDS: POTASSIUM CHLORIDE ER 20 MEQ TAB.ER PO SCH (12:25)
[2023-05-17] MEDS: LIDOCAINE 4% PATCH TOPICAL SCH (12:26)
--- NOTE | 2023-05-17 13:24 | P.PN ---
Subjective Progress Note Date: 05/17/23 62-year-old female patient was brought into the ED with diminished level of consciousness, respiratory distress and hypercapnic respiratory failure. The patient is known to have chronic hypoxic/hypercapnic respiratory failure due to advanced COPD and she has had multiple aspirations the past for hypoxic and hypercapnic respiratory failure and her last hospital this was approximately 3 weeks ago and the patient was supported with BiPAP therapy with subsequent improvement. She is a nonsmoker for now. She has quit smoking. She did have a low-grade fever at home. No nausea or emesis. Information was provided by the hospital at the bedside. Chest exit shows a left lower lobe consolidation suggestive of a pneumonia. The patient was given Rocephin and Zithromax in the emergency department. The patient was started also on bronchodilators and steroids. The patient is currently on a BiPAP at a pressure of 12/5 cm of water and FiO2 is being titrated to maintain saturation above 90%. After she arrived to the intensive care unit, the patient was given a blood gas that showed a pH of 7.26 with a pCO2 of 72 and pO2 of 79 and this was done on a BiPAP of 12/5 with an FiO2 of 45%. Her potassium dropped down to 4.8 from 6 with a BUN of 18 and a creatinine of 0.4. UA showed +4 glucose. The viral panel is negative. The white cycles of 16.3. Chest x-ray showing a left lower lobe consolidation. In terms of her COPD, the patient has advanced O2 dependent COPD and she is typically on 5 L at home in her FEV1 is less than 30% of predicted. CT angiogram that was done back in March 2023 showed no evidence of any pulmonary embolism. The patient has enlarged pulmonary artery trunk consistent with pulmonary hypertension. She has moderate calcification of the aortic valve. A fusiform aneurysmal dilatation of the ascending aorta measuring 5 x 4.9 cm in size. She also has old right-sided rib fractures. There is diffuse emphysematous changes bilaterally and few subcentimeter pulmonary nodules. Noted during her previous hospitalization, the patient had elevated troponins. Based on that, a cardiac catheterization was done and the patient was found to have mild disease involving the LAD in the order of 40%, RCA had a focal proximal stenosis in the order of 95% and the patient had a drug-eluting stent placed in the RCA 1. Most recent echocardiogram from October 2022 also showed severe aortic stenosis, left ventricle ejection fraction of 45% with a RVSP of 39. On today's evaluation of 05/12/2023, the patient is feeling better. The patient has spent the whole day on the BiPAP yesterday and the patient is currently off the BiPAP. She was utilizing BiPAP at a pressure of 12/5 cm of water with an FiO2 of 45%. She is awake and alert and communicating. Chest x-ray shows bibasilar pulmonary infiltrates and the patient is currently covered with broad- spectrum antibiotics. The patient is white cell count today's of 14.3, hemoglobin was at 10.3 and a sodium level is at 134 with a potassium level of 4 and a BUN of 18 with a creatinine of 0.65. Potassium levels at 4.0. The patient continues to be on bronchodilators with DuoNeb updrafts. The patient is also on accommodation Perforomist and Pulmicort. The patient on IV Solu-Medrol. The patient remains on accommodation of Zosyn and vancomycin. Hemodynamically stable. Awake and alert and communicating. Cultures are still pending for now. 05/13/2023, the patient is on oxygen at 5 L. The patient was taken off the BiPAP this morning. Overnight, the patient was in the BiPAP at a pressure of 12/5 with an FiO2 of 45%. She is tolerating the BiPAP reasonably well. Chest x-ray still showing limited bibasilar pulmonary infiltrates. The patient continues to be on a combination of Zosyn and vancomycin. She did encounter some shortness of breath yesterday. She was given a dose of Lasix 40 mg IV push and her respiratory status improved accordingly. The white cycles of 12, he was at 9.5, BUN is at 27 with a creatinine of 0.7 and a sodium levels of 135. Alert and awake. Communicating. No signs of any CO2 narcosis. Remains on bronchodilators. Tolerating her diet. No nausea or vomiting. No chest pain. 05/14/2023, the patient is able. Utilizing the BiPAP overnight. Currently on 5 L of oxygen by nasal cannula. No new complaints. Remains on Zosyn and vancomycin. Remains on IV Solu-Medrol. She was started also on oral Lasix 40 mg by mouth daily. No signs of any CO2 narcosis. The echoes at 12 with a hemoglobin of 9.3, sodium is at 141 with a BUN of 34 and a creatinine of 0.7. The patient is seen today 05/15/2023 in follow-up on the regular medical floor. She is currently sitting up at the bedside. Awake and alert in no acute distress. Feeling a bit better today compared to yesterday. She is still requiring BiPAP 12/5 and 45% throughout the evening and during the day while napping. Otherwise she is on 5 L/m per nasal cannula. Follow-up chest x-ray revealed improved pulmonary vascular congestion. No dense airspace consolidation. No pleural effusion or pneumothorax. Cultures revealed no growth. White count 9.6. Hemoglobin 9.1. Platelets 299. Sodium 145. Po tassium 4.0. Bicarb 36. BUN 27. Creatinine 0.6. Glucose 168. Pro-calcitonin 0.13. She remains on antibiotics in the form of Zosyn. Continue to bronchodilators, steroids. Lovenox for DVT prophylaxis. Remains on oral diuretics. The patient is seen today May 16, 2023 and follow-up on the regular medical floor. She is currently sitting up. Awake and alert in no acute distress. Breathing easier today compared to yesterday. Not quite back to her baseline. She is continued on DuoNeb and elations, Pulmicort and perform scintillations, Solu-Medrol. Antibiotics in the form of Zosyn. Remains on Lovenox for DVT prophylaxis. Remains on oral diuretics. She did utilize BiPAP last night 12/5 and 45% FiO2. She is currently on 6 L high flow nasal cannula. Still somewhat bronchospastic and wheezing. Blood cultures revealed no growth. Glucose 164. The patient is seen today May 17, 2019 for follow-up on the regular medical floor. She is awake and alert in no acute distress. Denies any worsening shortness of breath, cough or congestion. She does have some complaints of r ight-sided chest wall pain from coughing. She is maintaining O2 saturations in the 90s on 5 L/min per nasal cannula. Utilizing BiPAP at night 12/5 and 45% FiO2. Blood cultures revealed no growth. White count 10.9. Hemoglobin 10.1. Platelets 335. Sodium 146. Potassium 3.1. Bicarb 43. BUN 25. Creatinine 0.6. Glucose 149. She is continued on DuoNeb inhalation, Pulmicort and performing scintillations, Solu-Medrol. Mucinex, Robitussin for her cough. Lovenox for DVT prophylaxis. Remains on oral diuretics. Objective - Vital Signs Vital signs: Vital Signs Temp 97.6 F 05/17/23 07:00 Pulse 82 05/17/23 12:41 Resp 19 05/17/23 12:41 BP 164/92 05/17/23 07:00 Pulse Ox 95 05/17/23 08:19 FiO2 45 05/16/23 04:44 Intake & Output 05/16/23 05/17/23 05/17/23 18:59 06:59 18:59 Other: # Voids 1 3 # Bowel Movements 1 - Exam GENERAL EXAM: Alert, obese 62-year-old female, on 5 L nasal cannula, utilizing BiPAP at night, in no apparent distress. HEAD: Normocephalic. EYES: Normal reaction of pupils, equal size. NOSE: Clear with pink turbinates. THROAT: No erythema or exudates. NECK: No masses, no JVD. CHEST: No chest wall deformity. LUNGS: Equal air entry with crackles in the bilateral bases. CVS: S1 and S2 normal with no audible murmur, regular rhythm. ABDOMEN: No hepatosplenomegaly, normal bowel sounds, no guarding or rigidity. SPINE: No scoliosis or deformity SKIN: No rashes CENTRAL NERVOUS SYSTEM: No focal deficits, tone is normal in all 4 extremities. EXTREMITIES: There is 1+ peripheral edema. No clubbing, no cyanosis. Periphera l pulses are intact. - Labs CBC & Chem 7: 05/17/23 05:47 05/17/23 05:47 Labs: Abnormal Lab Results - Last 24 Hours (Table) 05/16/23 05/16/23 05/17/23 Range/Units 16:59 21:07 05:46 WBC (4.50-10.00) X 10*3/uL RBC (4.10-5.20) X 10*6/uL Hgb (12.0-15.0) g/dL Hct (37.2-46.3) % MCV (80.0-97.0) FL MCHC (32.0-37.0) g/dL Immature Gran # (0.00-0.04) X 10*3/uL Neutrophils # (1.80-7.70) X 10*3/uL Lymphocytes # (0.90-5.00) X 10*3/uL Eosinophils # (0.04-0.35) X 10*3/uL NRBC/100 WBC Diff (0.00-0.01) X 10*3/uL Sodium (135-145) mmol/L Potassium (3.5-5.5) mmol/L Carbon Dioxide (21.6-31.8) mmol/L BUN/Creatinine Ratio (12.00-20.00) Ratio Glucose (70-110) mg/dL POC Glucose (mg/dL) 187 H 152 H 154 H (70-110) mg/dL 05/17/23 05/17/23 05/17/23 Range/Units 05:47 05:47 12:04 WBC 10.95 H (4.50-10.00) X 10*3/uL RBC 3.44 L (4.10-5.20) X 10*6/uL Hgb 10.1 L (12.0-15.0) g/dL Hct 33.4 L (37.2-46.3) % MCV 97.1 H (80.0-97.0) FL MCHC 30.2 L (32.0-37.0) g/dL Immature Gran # 0.49 H (0.00-0.04) X 10*3/uL Neutrophils # 8.81 H (1.80-7.70) X 10*3/uL Lymphocytes # 0.74 L (0.90-5.00) X 10*3/uL Eosinophils # 0 L (0.04-0.35) X 10*3/uL NRBC/100 WBC Diff 0.03 H (0.00-0.01) X 10*3/uL Sodium 146 H (135-145) mmol/L Potassium 3.1 L (3.5-5.5) mmol/L Carbon Dioxide 42.7 A* (21.6-31.8) mmol/L BUN/Creatinine Ratio 41.00 H (12.00-20.00) Ratio Glucose 149 H (70-110) mg/dL POC Glucose (mg/dL) 290 H (70-110) mg/dL Microbiology - Last 24 Hours (Table) 05/11/23 12:36 Blood Culture - Final Blood 05/11/23 12:36 Blood Culture - Final Blood Assessment and Plan Assessment: Acute on chronic hypoxic and hypercapnic respiratory failure related to COPD exacerbation, currently on BiPAP alternating with 5 L of oxygen by nasal cannula Left lower lobe pneumonia, chest x-ray from today showing bibasilar pulmonary infiltrate and the patient completed Zosyn Altered mental status likely secondary to CO2 narcosis and hypoxemichypercapnic encephalopathy Advanced COPD with an FEV1 of less than 30% of predicted Chronic hypoxic respiratory failure maintained on O2 at 5 L per minute nasal cannula Coronary artery disease with recent non-STEMI and the patient is post stenting of the RCA. The patient also has a residual 40% involving the LAD Chronic lower back pain Moderate to severe aortic stenosis with a peak gradient of 69 and a mean gradient of 46 and the estimated valve area of 0.9 Systolic heart failure with an ejection fraction of 45% Secondary pulmonary hypertension Ascending thoracic aortic aneurysm measuring 4.9 x 5 cm in size Plan: The patient was seen and evaluated Labs and medications reviewed Continue the current treatment plan Titrate the FiO2 as tolerated Possible discharge in the a.m. We will continue to follow I have personally seen and examined the patient, performed the documentation and the assessment and plan as written. Number of minutes spent on the visit: 10.
[2023-05-17 14:32] VITALS: BMI 41.2
[2023-05-17] MEDS: KETOROLAC 15 MG/ML 1 ML VIAL IVP PRN (16:47)
[2023-05-17 16:54] LABS: Glucose,Whole Blood 148 mg/dL (70-110)
[2023-05-17 20:51] LABS: Glucose,Whole Blood 198 mg/dL (70-110)
--- NOTE | 2023-05-18 05:55 | P.PN ---
Subjective Progress Note Date: 05/17/23 * 62-year-old patient with past medical history significant for COPD severe with FEV1 less than 30%, chronic hypoxic respiratory failure on 5 L of oxygen at baseline, we couldn't history of COPD exacerbation recently discharged in April 2023, moderate severe aortic stenosis, chronic congestive heart eliot lure with ejection fraction of 45%, pulmonary hypertension, ascending thoracic aneurysm, history of coronary artery disease, history of anxiety, depression, chronic back pain presents to the emergency department with complains of shortness of breath. Patient states she has been having worsening symptoms for the last 2 or 3 days. Patient was discharged on 04/27/2023 admitted with similar presentation. Patient states she has been having low-grade fever at home. EMS was called and patient was placed on noninvasive ventilation for respiratory distress. Patient states she took multiple breathing treatments at home without any improvement. Patient was anxious at the time of presentation in ED. Patient was started on IV antibiotics including Zosyn and Levaquin in ED. Patient was placed on BiPAP in ER was given 1 L of fluid bolus, due to severe anxiety patient is a 1 dose of IV Ativan and breathing treatments. * Review of blood work showed leukocytosis with WBC 16.3 hemoglobin 11.9 platel et count of 244 serum chemistry showed sodium 136 potassium of 6 chloride 96 BUN 18 creatinine 0.48, blood sample was considered hemolyzed and repeat sample was ordered N-terminal proBNP 238, albumin 3.9 patient tested negative for RSV, Covid, influenza due to severe respiratory distress patient admitted to medical ICU with consultation from medical ICU team * 05/12/2023: Patient seen and evaluated bedside, at bedside patient remains on BiPAP, CBC shows improvement in WBC count, hemoglobin 10.3, serum chemistry reviewed, renal function stable, patient is alert and oriented 4 * 05/13/2023: Patient seen and evaluated bedside, patient transition to 5 L oxygen through nasal cannula. Continue patient on broad-spectrum antibiotic with CBC showed WBC of 12.1 hemoglobin 9.5 serum chemistry sodium 136 potassium 3.6 renal function within normal limits patient is off BiPAP * 05/14/2023: Patient seen and evaluated bedside, patient accompanied by her shortness of breath is improved, respiratory distress has improved patient transferred out of ICU patient on 5 L of oxygen. Continue current antibiotic regimen including Zosyn and vancomycin day 3, antibiotic to be de- escalate depending on clinical course CRP 3.9. Patient does get shortness of breath on minimal exertion 05/15/2023 Patient is seen in follow-up here with COPD exacerbation also with concerns of pneumonia being followed by pulmonary. Patient is maintained on IV steroids along with DuoNeb treatments and antibiotics. Chest x-ray shows mild CHF and interval improvement in pulmonary vascular congestion. Patient has been transition to oral Lasix. Patient will continue on IV steroids along with Accu- Cheks before meals and at bedtime and sliding scale. Encouraged increase activity as tolerated. Given significant comorbidities, prognosis is definitely guarded. 05/16/2023 Patient is seen in follow-up today with pulmonary following maintained on BiPAP along with 5 to 6 L via nasal cannula during the day. Per family and patient, she is to have BiPAP for discharge planning in the home. Discussed further with pulmonary along with case management and will need outpatient testing prior to having BiPAP approved by insurance. Patient will need to follow-up with Dr. Rahman in the outpatient for further sleep studies. Patient is continued on DuoNeb treatments [id number] along with IV steroids and reports to feeling improved. Continue Accu-Cheks ACHS I will continue current regimen. Follow-up on repeat labs. 05/17/2023 Patient is seen in follow-up today with pulmonary following continues to be on BiPAP at night and as needed and currently on 5 L via nasal cannula. Patient is reporting continued shortness of breath with frequent coughing spells and reporting some right rib pain. Will add lidocaine patch as well as incentive spirometer. Plan for repeat chest x-ray in the a.m. Pulmonary following continued on DuoNeb treatments and steroids. Encouraged to increase activity as tolerated. Patient continues to report dyspnea with minimal exertion. Patient will need to arrange for BiPAP outpatient. Review of systems: Constitutional: No reports of fatigue, fever, or chills Cardiovascular: No reports of chest pain or palpitations Respiratory: reports of continued shortness of breath although feels slightly improved, reports continued cough and right-sided rib pain GI: No reports of nausea, vomiting, or diarrhea : No reports of dysuria or retention Neurovascular: reports of generalized weakness All medications have been reviewed PHYSICAL EXAMINATION: GENERAL: The patient is alert and oriented x 3, on high flow 5 L nasal cannula however respiratory distress is improved, obese HEENT: Pupils are round and equally reacting to light. EOMI Normocephalic, atraumatic. No pharyngeal erythema. No thyromegaly. CARDIOVASCULAR: S1 and S2 present. No murmurs, rubs, or gallops. PULMONARY: Improved breath sounds bilaterally with continued scattered rhonchi and expiratory wheezing ABDOMEN: Soft, nontender, nondistended, normoactive bowel sounds. No palpable organomegaly. MUSCULOSKELETAL: No joint swelling or deformity. EXTREMITIES: No cyanosis, clubbing, or pedal edema. NEUROLOGICAL: Gross neurological examination did not reveal any focal deficits. SKIN: No rashes. Some bleeding and bruising noted at the subcutaneous injection sites from Lovenox on the abdomen Assessment: * Acute on chronic hypoxic respiratory failure with COPD exacerbation * Multifocal pneumonia, likely gram-negative * Coronary artery disease history maintained on aspirin and Plavix * History of chronic congestive heart failure systolic dysfunction, not in exacerbation * Advanced COPD * History of anxiety/depression * History of hypertension * History of dyslipidemia * Recurrent hospitalization for COPD/advance COPD * Morbid obesity with a BMI of 41.3 Plan: * In regards to acute hypoxic respiratory failure >> continue patient on noninvasive ventilation as needed, weaned down to 5 L of oxygen through nasal cannula, >> pulmonary medicine followed maintained on continued breathing garret atments IV Solu-Medrol broad-spectrum antibiotic. Patient discussing that she needs BiPAP on discharge and discussed further with pulmonary and will need outpatient testing as this was confirmed with case management as well in order to be approved by insurance * In regards to multifocal pneumonia follow-up on urine Legionella NEGATIVE , continue IV antibiotic, IV steroids, breathing treatment, procalcitonin minimally elevated * In regards to history of coronary artery disease continue patient on aspirin, Plavix, metoprolol * In regards to history of hypertension patient noted be hypotensive on admission, lisinopril placed on hold >> continue metoprolol with holding parameeter, patient placed back on Lasix * CODE STATUS is full code * prognosis remains guarded secondary to recurrent hospitalization with similar presentation * Will await pulmonary clearance to discuss discharge planning The impression and plan of care has been dictated by Vanna Chacon, Nurse Practitioner as directed. Dr. Francisco MD I have performed a history and examination and MDM of this patient, discussed the same with the dictator, and agree with the dictator's assessment and plan as written ,documented as a scribe. Based on total visit time, I have performed more than 50% of the visit. Objective - Vital Signs Vital signs: Vital Signs Temp 97.6 F 05/17/23 07:00 Pulse 98 05/17/23 08:36 Resp 18 05/17/23 07:00 BP 164/92 05/17/23 07:00 Pulse Ox 95 05/17/23 08:19 FiO2 45 05/16/23 04:44 Intake & Output 05/16/23 05/17/23 05/17/23 18:59 06:59 18:59 Other: # Voids 1 3 # Bowel Movements 1 - Labs CBC & Chem 7: 05/17/23 05:47 05/17/23 05:47 Labs: Abnormal Lab Results - Last 24 Hours (Table) 05/16/23 05/16/23 05/16/23 Range/Units 11:38 16:59 21:07 POC Glucose (mg/dL) 190 H 187 H 152 H (70-110) mg/dL 05/17/23 Range/Units 05:46 POC Glucose (mg/dL) 154 H (70-110) mg/dL Microbiology - Last 24 Hours (Table) 05/11/23 12:36 Blood Culture - Final Blood 05/11/23 12:36 Blood Culture - Final Blood
[2023-05-18 06:11] LABS: Glucose,Whole Blood 170 mg/dL (70-110)
--- NOTE | 2023-05-18 08:01 | XR ---
EXAMINATION TYPE: XR chest 1V portable DATE OF EXAM: 05/18/2023 Comparison: 05/14/2023 Clinical History: 62-year-old female shortness of breath, right rib pain Findings: Hyperinflation. Heart borderline enlarged. Interstitial density mid and lower lungs. Large patient yolanda dy habitus results in underpenetration and limits evaluation. No sizable pleural effusion seen. Impression: Limited by portable technique and large body habitus. There appears to be borderline heart size and C OPD. Mild density in the mid and lower lungs may reflect mild pulmonary vascular congestion.
[2023-05-18 11:33] LABS: Glucose,Whole Blood 263 mg/dL (70-110)
[2023-05-18 12:03] LABS: BUN/Creat Ratio 41.57 Ratio (12.00-20.00); Blood Urea Nitrogen 29.1 mg/dL (9.0-27.0); Calcium 9.3 mg/dL (8.7-10.3); Carbon Dioxide 42.3 mmol/L (21.6-31.8); Chloride 98 mmol/L (96-109); Glucose 173 mg/dL (70-110); Sodium 145 mmol/L (135-145)
--- NOTE | 2023-05-18 12:55 | P.PN ---
Subjective Progress Note Date: 05/18/23 62-year-old female patient was brought into the ED with diminished level of consciousness, respiratory distress and hypercapnic respiratory failure. The patient is known to have chronic hypoxic/hypercapnic respiratory failure due to advanced COPD and she has had multiple aspirations the past for hypoxic and hypercapnic respiratory failure and her last hospital this was approximately 3 weeks ago and the patient was supported with BiPAP therapy with subsequent improvement. She is a nonsmoker for now. She has quit smoking. She did have a low-grade fever at home. No nausea or emesis. Information was provided by the hospital at the bedside. Chest exit shows a left lower lobe consolidation suggestive of a pneumonia. The patient was given Rocephin and Zithromax in the emergency department. The patient was started also on bronchodilators and steroids. The patient is currently on a BiPAP at a pressure of 12/5 cm of water and FiO2 is being titrated to maintain saturation above 90%. After she arrived to the intensive care unit, the patient was given a blood gas that showed a pH of 7.26 with a pCO2 of 72 and pO2 of 79 and this was done on a BiPAP of 12/5 with an FiO2 of 45%. Her potassium dropped down to 4.8 from 6 with a BUN of 18 and a creatinine of 0.4. UA showed +4 glucose. The viral panel is negative. The white cycles of 16.3. Chest x-ray showing a left lower lobe consolidation. In terms of her COPD, the patient has advanced O2 dependent COPD and she is typically on 5 L at home in her FEV1 is less than 30% of predicted. CT angiogram that was done back in March 2023 showed no evidence of any pulmonary embolism. The patient has enlarged pulmonary artery trunk consistent with pulmonary hypertension. She has moderate calcification of the aortic valve. A fusiform aneurysmal dilatation of the ascending aorta measuring 5 x 4.9 cm in size. She also has old right-sided rib fractures. There is diffuse emphysematous changes bilaterally and few subcentimeter pulmonary nodules. Noted during her previous hospitalization, the patient had elevated troponins. Based on that, a cardiac catheterization was done and the patient was found to have mild disease involving the LAD in the order of 40%, RCA had a focal proximal stenosis in the order of 95% and the patient had a drug-eluting stent placed in the RCA 1. Most recent echocardiogram from October 2022 also showed severe aortic stenosis, left ventricle ejection fraction of 45% with a RVSP of 39. On today's evaluation of 05/12/2023, the patient is feeling better. The patient has spent the whole day on the BiPAP yesterday and the patient is currently off the BiPAP. She was utilizing BiPAP at a pressure of 12/5 cm of water with an FiO2 of 45%. She is awake and alert and communicating. Chest x-ray shows bibasilar pulmonary infiltrates and the patient is currently covered with broad- spectrum antibiotics. The patient is white cell count today's of 14.3, hemoglobin was at 10.3 and a sodium level is at 134 with a potassium level of 4 and a BUN of 18 with a creatinine of 0.65. Potassium levels at 4.0. The patient continues to be on bronchodilators with DuoNeb updrafts. The patient is also on accommodation Perforomist and Pulmicort. The patient on IV Solu-Medrol. The patient remains on accommodation of Zosyn and vancomycin. Hemodynamically stable. Awake and alert and communicating. Cultures are still pending for now. 05/13/2023, the patient is on oxygen at 5 L. The patient was taken off the BiPAP this morning. Overnight, the patient was in the BiPAP at a pressure of 12/5 with an FiO2 of 45%. She is tolerating the BiPAP reasonably well. Chest x-ray still showing limited bibasilar pulmonary infiltrates. The patient continues to be on a combination of Zosyn and vancomycin. She did encounter some shortness of breath yesterday. She was given a dose of Lasix 40 mg IV push and her respiratory status improved accordingly. The white cycles of 12, he was at 9.5, BUN is at 27 with a creatinine of 0.7 and a sodium levels of 135. Alert and awake. Communicating. No signs of any CO2 narcosis. Remains on bronchodilators. Tolerating her diet. No nausea or vomiting. No chest pain. 05/14/2023, the patient is able. Utilizing the BiPAP overnight. Currently on 5 L of oxygen by nasal cannula. No new complaints. Remains on Zosyn and vancomycin. Remains on IV Solu-Medrol. She was started also on oral Lasix 40 mg by mouth daily. No signs of any CO2 narcosis. The echoes at 12 with a hemoglobin of 9.3, sodium is at 141 with a BUN of 34 and a creatinine of 0.7. The patient is seen today 05/15/2023 in follow-up on the regular medical floor. She is currently sitting up at the bedside. Awake and alert in no acute distress. Feeling a bit better today compared to yesterday. She is still requiring BiPAP 12/5 and 45% throughout the evening and during the day while napping. Otherwise she is on 5 L/m per nasal cannula. Follow-up chest x-ray revealed improved pulmonary vascular congestion. No dense airspace consolidation. No pleural effusion or pneumothorax. Cultures revealed no growth. White count 9.6. Hemoglobin 9.1. Platelets 299. Sodium 145. Po tassium 4.0. Bicarb 36. BUN 27. Creatinine 0.6. Glucose 168. Pro-calcitonin 0.13. She remains on antibiotics in the form of Zosyn. Continue to bronchodilators, steroids. Lovenox for DVT prophylaxis. Remains on oral diuretics. The patient is seen today May 16, 2023 and follow-up on the regular medical floor. She is currently sitting up. Awake and alert in no acute distress. Breathing easier today compared to yesterday. Not quite back to her baseline. She is continued on DuoNeb and elations, Pulmicort and perform scintillations, Solu-Medrol. Antibiotics in the form of Zosyn. Remains on Lovenox for DVT prophylaxis. Remains on oral diuretics. She did utilize BiPAP last night 12/5 and 45% FiO2. She is currently on 6 L high flow nasal cannula. Still somewhat bronchospastic and wheezing. Blood cultures revealed no growth. Glucose 164. The patient is seen today May 17, 2019 for follow-up on the regular medical floor. She is awake and alert in no acute distress. Denies any worsening shortness of breath, cough or congestion. She does have some complaints of r ight-sided chest wall pain from coughing. She is maintaining O2 saturations in the 90s on 5 L/min per nasal cannula. Utilizing BiPAP at night 12/5 and 45% FiO2. Blood cultures revealed no growth. White count 10.9. Hemoglobin 10.1. Platelets 335. Sodium 146. Potassium 3.1. Bicarb 43. BUN 25. Creatinine 0.6. Glucose 149. She is continued on DuoNeb inhalation, Pulmicort and performing scintillations, Solu-Medrol. Mucinex, Robitussin for her cough. Lovenox for DVT prophylaxis. Remains on oral diuretics. The patient is seen today May 18, 2023 in follow-up on the regular medical floor. She is sitting up at the bedside. Awake and alert in no acute distress. Feeling better. Feeling back to her baseline. No worsening shortness of breath, cough or congestion. She is maintaining O2 saturations in the 90s on 5 L/min per nasal cannula. Alternating with BiPAP 12/5 and 45% FiO2. She has been afebrile. Hemodynamically stable. Follow-up chest x-ray is limited due to poor technique and large body habitus. There is evidence of COPD. Mild pulmonary vascular congestion. Blood cultures revealed no growth. Sodium 145. Potassium 4.0. Bicarb 42. BUN 29. Creatinine 0.7. Glucose 170. She remains on DuoNeb inhalations, Pulmicort and performist inhalations, prednisone. Remains on diuretics. Objective - Vital Signs Vital signs: Vital Signs Temp 98.0 F 05/18/23 10:28 Pulse 98 05/18/23 12:37 Resp 20 05/18/23 10:28 BP 137/84 05/18/23 10:28 Pulse Ox 94 L 05/18/23 10:28 FiO2 45 05/18/23 12:25 Intake & Output 05/17/23 05/18/23 05/18/23 18:59 06:59 18:59 Intake Total 25 Balance 25 Weight 102.3 kg Intake: Oral 25 Other: # Voids 2 3 - Exam GENERAL EXAM: Alert, obese, pleasant 62-year-old female, sitting up in bed, on 5 L nasal cannula, in no apparent distress. HEAD: Normocephalic. EYES: Normal reaction of pupils, equal size. NOSE: Clear with pink turbinates. THROAT: No erythema or exudates. NECK: No masses, no JVD. CHEST: No chest wall deformity. LUNGS: Equal air entry with crackles in the bilateral bases. CVS: S1 and S2 normal with no audible murmur, regular rhythm. ABDOMEN: No hepatosplenomegaly, normal bowel sounds, no guarding or rigidity. SPINE: No scoliosis or deformity SKIN: No rashes CENTRAL NERVOUS SYSTEM: No focal deficits, tone is normal in all 4 extremities. EXTREMITIES: There is 1+ peripheral edema. No clubbing, no cyanosis. Peripheral pulses are intact. - Labs CBC & Chem 7: 05/17/23 05:47 05/18/23 06:11 Labs: Abnormal Lab Results - Last 24 Hours (Table) 05/17/23 05/17/23 05/18/23 Range/Units 16:53 20:49 06:08 Carbon Dioxide (21.6-31.8) mmol/L BUN (9.0-27.0) mg/dL BUN/Creatinine Ratio (12.00-20.00) Ratio Glucose (70-110) mg/dL POC Glucose (mg/dL) 148 H 198 H 170 H (70-110) mg/dL 05/18/23 05/18/23 Range/Units 06:11 11:31 Carbon Dioxide 42.3 A* (21.6-31.8) mmol/L BUN 29.1 H (9.0-27.0) mg/dL BUN/Creatinine Ratio 41.57 H (12.00-20.00) Ratio Glucose 173 H (70-110) mg/dL POC Glucose (mg/dL) 263 H (70-110) mg/dL Assessment and Plan Assessment: Acute on chronic hypoxic and hypercapnic respiratory failure related to COPD exacerbation, currently on BiPAP alternating with 5 L of oxygen by nasal cannula Left lower lobe pneumonia, chest x-ray from today showing bibasilar pulmonary infiltrate and the patient completed Zosyn Altered mental status likely secondary to CO2 narcosis and hypoxemichypercapnic encephalopathy Advanced COPD with an FEV1 of less than 30% of predicted Chronic hypoxic respiratory failure maintained on O2 at 5 L per minute nasal cannula Coronary artery disease with recent non-STEMI and the patient is post stenting of the RCA. The patient also has a residual 40% involving the LAD Chronic lower back pain Moderate to severe aortic stenosis with a peak gradient of 69 and a mean gradient of 46 and the estimated valve area of 0.9 Systolic heart failure with an ejection fraction of 45% Secondary pulmonary hypertension Ascending thoracic aortic aneurysm measuring 4.9 x 5 cm in size Plan: The patient was seen and evaluated Labs and medications reviewed Cleared for discharge from the pulmonary standpoint Continue her home oxygen, bronchodilators Complete a prednisone taper Follow-up in our office in 1 week This patient was seen independently by the pulmonary nurse practitioner addressing pulmonary issues I have personally seen and examined the patient, performed the documentation and the assessment and plan as written. Number of minutes spent on the visit: 24.
[2023-05-18 14:44] VITALS: BP 118/70; PULSE 88; RESP 18; TEMP 97.9
[2023-05-19] MEDS ORDERED: predniSONE 20 MG TAB PO SCH (09:00)
[2023-05-19] MEDS ORDERED: PANTOPRAZOLE 40 MG TABLET PO SCH (09:00)
--- NOTE | 2023-05-22 15:53 | CDI ---
Documentation Clarification Form Date: 05/22/2023 From: Amparo Suarez Admit Date: 05/11/2023 12:50:00 PM Patient Name: Blanka Porras Visit Number: [id number] Discharge Date: 05/18/2023 03:27:00 PM ATTENTION: The Clinical Documentation Specialists (CDI) and [facility] Coding Staff appreciate your assistance in clarifying documentation. Please respond to the clarification below the line at the bottom and electronically sign. The CDI & [facility] Coding staff will review the response and follow-up if needed. Please note: Queries are made part of the Legal Health Record. If you have any questions, please contact the author of this message via ITS. Dr. Shelby Singh The patient has gram-negative pneumonia, leukocytosis, tachycardia and hypoxia on room air. Based on this information and the findings below, is there an additional diagnosis that is clinically appropriate for this patient? History/Risk Factors: 62yo with a history of multiple aspirations and COPD on home O2 (5L NC) presented with multi-focal pneumonia, likely gram-negative and acute on chronic hypoxic respiratory failure. Clinical Indicators: Presented with encephalopathy, respiratory distress, noted a low-grade fever at home WBC: 05/11 16.3, 05/12 14.3, 05/13 12.1 Blood cultures 05/11: no growth at 5 days Vitals signs: 05/11 @ 1007 99.7, 140, 22, 137/85 Treatment: Zosyn IV, Zithromax IV, ceftriaxone IV, Doxycycline IV, Levaquin IV, Vanco IV Is there an additional diagnosis that is clinically appropriate for this patient? [ x ] Gram-negative sepsis 2nd to gram-negative pneumonia [ ] Sepsis 2nd to other pneumonia (please clarify type) [ ] Other, please specify [ ] Unable to determine SIRS Criteria: 2 or more of the following may indicate SIRS Temperature < 96.8F (36C) or > 101.0F (38.3C) Heart Rate > 90 bpm Respiratory Rate > 20 breaths/min or PaCO2 < 32 mmHg White Blood Cell Count > 12,000 or < 4,000 cells/mm3 or > 10% bands (Template Last Reviewed: April 2022) MTDD
--- NOTE | 2023-05-23 06:44 | P.DS ---
Providers Date of admission: 05/11/23 12:50 Expected date of discharge: 05/18/23 Attending physician: Annalee Riggs MD Consults: 05/11/23 12:14 Consult Physician Routine Consulting Provider: Nelly Rahman Consult Reason/Comments: copd, pneumonia, on bipap Do you want consulting provider notified?: Yes Primary care physician: Jeremy Ennis Hospital Course: Final diagnosis Acute on chronic hypoxic respiratory failure with COPD exacerbation Left lower lobe pneumonia, gram-negative, community-acquired, no sepsis Coronary artery disease history maintained on aspirin and Plavix History of chronic congestive heart failure systolic dysfunction, not in exacerbation Advanced COPD History of anxiety/depression History of hypertension History of dyslipidemia Recurrent hospitalization for COPD/advance COPD Morbid obesity with a BMI of 41.3 Discharge disposition Patient is being discharged in a stable condition with guarded prognosis to home. Patient will follow-up with Dr. Ennis in the outpatient setting upon discharge. Patient is to continue with current medications as prescribed below and close outpatient follow-up with pulmonary as scheduled. Patient needs further outpatient pulmonary testing to discuss BiPAP in the home. Total time taken is greater than 35 minutes. Hospital course This is a 62-year-old female who was recently admitted with increased shortness of breath with acute on chronic hypoxic respiratory failure initially requiring BiPAP continuously and weaned to her chronic 5 L via nasal cannula. Pulmonary following maintained on antibiotics and will continue current regimen along with a prednisone taper on discharge. Discussion was had about possible BiPAP need to be arranged in the outpatient setting although will need further testing with pulmonary for this. Patient chronically wears 5 L and is maintained on this and has been cleared by pulmonary for discharge. Patient reports to feeling improved and will be discharged home. Please refer to pulmonary notes for further HPI. Currently no reports of chest pain, no worsening shortness of breath, or palpitations. Patient is afebrile. No reports of nausea or vomiting and patient is tolerating diet. Patient will be discharged home today. Guarded prognosis and extremely high risk for readmissions given patient's significant comorbidities and advanced COPD. Physical exam: Gen: This is a 62-year-old female who is awake, alert and oriented x 3, well- developed, well-nourished, morbidly obese HEENT: Head is atraumatic, normocephalic. Pupils equal, round. Sclerae is anicteric. NECK: Supple. No JVD. No lymphadenopathy. No thyromegaly. LUNGS: Diminished breath sounds bilaterally with scattered coarse rhonchi. Mild expiratory wheezing noted. No intercostal retractions. HEART: Regular rate and rhythm. No murmur. ABDOMEN: Soft. Obese. Bowel sounds are present. No masses. No tenderness. EXTREMITIES: No pedal edema. No calf tenderness. NEUROLOGICAL: Patient is awake, alert and oriented x3. Cranial nerves 2 through 12 are grossly intact. Please refer to medication reconciliation sheet for a list of medications. The impression and plan of care has been dictated by Vanna Chacon, Nurse Practitioner as directed. Dr. Francisco MD I have performed a history and examination and MDM of this patient, discussed the same with the dictator, and agree with the dictator's assessment and plan as written ,documented as a scribe. Based on total visit time, I have performed more than 50% of the visit. Patient Condition at Discharge: Fair Plan - Discharge Summary Discharge Rx Participant: Yes New Discharge Prescriptions: New Furosemide [Lasix] 40 mg PO DAILY #30 tab Lidocaine 4% Patch 2 patch TOPICAL DAILY #30 patch Ipratropium-Albuterol Nebulize [Duoneb 0.5 mg-3 mg/3 ml Soln] 3 ml INHALATION RT-QID #100 each guaiFENesin [Mucinex] 600 mg PO Q12HR 10 Days #20 tab predniSONE 10 mg PO DIRECTED #30 tab Acetaminophen Tab [Tylenol] 650 mg PO Q4HR PRN tab PRN Reason: Fever And/Or Mild Pain Continue Albuterol Inhaler [Ventolin Hfa Inhaler] 2 puff INHALATION RT-Q4H PRN PRN Reason: Shortness Of Breath Aspirin 81 mg PO DAILY 30 Days #30 tab Yupelri 175mcg/3ml 175 mcg INHALATION RT-DAILY predniSONE 5 mg PO DAILY Tiotropium [place] [Spiriva Handihaler] 1 cap INHALATION RT-DAILY Nitroglycerin Sl Tabs [Nitrostat] 0.4 mg SUBLINGUAL Q5M PRN #30 tab PRN Reason: Chest Pain lisinopriL 30 mg PO DAILY Atorvastatin [Lipitor] 40 mg PO HS Sertraline [Zoloft] 100 mg PO DAILY Budesonide/Formoterol Fumarate [Symbicort 160-4.5 Mcg Inhaler] 2 puff INHALATION RT-BID Ipratropium-Albuterol Nebulize [Duoneb 0.5 mg-3 mg/3 ml Soln] 3 ml INHALATION RT-QID PRN PRN Reason: Shortness Of Breath Dapagliflozin Propanediol [Farxiga] 5 mg PO DAILY hydrOXYzine HCL [Atarax] 25 mg PO BID Clopidogrel [Plavix] 75 mg PO DAILY 30 Days #30 tab Metoprolol Succinate (ER) [Toprol XL] 25 mg PO DAILY 30 Days #30 tab Discharge Medication List Albuterol Inhaler [Ventolin Hfa Inhaler] 2 puff INHALATION RT-Q4H PRN 04/09/22 [History] Atorvastatin [Lipitor] 40 mg PO HS 04/09/22 [History] Aspirin 81 mg PO DAILY 30 Days #30 tab 04/12/22 [Rx] Sertraline [Zoloft] 100 mg PO DAILY 06/15/22 [History] Budesonide/Formoterol Fumarate [Symbicort 160-4.5 Mcg Inhaler] 2 puff INHALATION RT-BID 07/13/22 [History] Ipratropium-Albuterol Nebulize [Duoneb 0.5 mg-3 mg/3 ml Soln] 3 ml INHALATION RT-QID PRN 09/23/22 [History] Dapagliflozin Propanediol [Farxiga] 5 mg PO DAILY 11/19/22 [History] Yupelri 175mcg/3ml 175 mcg INHALATION RT-DAILY 11/19/22 [History] hydrOXYzine HCL [Atarax] 25 mg PO BID 11/19/22 [History] Tiotropium [place] [Spiriva Handihaler] 1 cap INHALATION RT-DAILY 04/19/23 [History] predniSONE 5 mg PO DAILY 04/19/23 [History] Clopidogrel [Plavix] 75 mg PO DAILY 30 Days #30 tab 04/26/23 [Rx] Metoprolol Succinate (ER) [Toprol XL] 25 mg PO DAILY 30 Days #30 tab 04/26/23 [Rx] Nitroglycerin Sl Tabs [Nitrostat] 0.4 mg SUBLINGUAL Q5M PRN #30 tab 04/26/23 [Rx] lisinopriL 30 mg PO DAILY 05/11/23 [History] Acetaminophen Tab [Tylenol] 650 mg PO Q4HR PRN tab 05/18/23 [Rx] Furosemide [Lasix] 40 mg PO DAILY #30 tab 05/18/23 [Rx] Ipratropium-Albuterol Nebulize [Duoneb 0.5 mg-3 mg/3 ml Soln] 3 ml INHALATION RT-QID #100 each 05/18/23 [Rx] Lidocaine 4% Patch 2 patch TOPICAL DAILY #30 patch 05/18/23 [Rx] guaiFENesin [Mucinex] 600 mg PO Q12HR 10 Days #20 tab 05/18/23 [Rx] predniSONE 10 mg PO DIRECTED #30 tab 05/18/23 [Rx] Follow up Appointment(s)/Referral(s): Júnior Morgan DO [Doctor of Osteopathic Medicine] - 05/31/23 10:15 am Jeremy Ennis DO [Primary Care Provider] - 1-2 days (office line not working Please call to schedule appointment ) [facility] [NON-STAFF] - 05/29/23 5:30 pm (You will be evaluated by structural heart team for further recomendations regarding your aortic valve stenosis) Activity/Diet/Wound Care/Special Instructions: Activity limited until follow-up Follow-up with primary care provider on discharge Continue taking medications as prescribed Follow-up with pulmonary outpatient to discuss further testing required and attempts to obtain a BiPAP for the outpatient setting Follow low-salt diet Discharge Disposition: HOME SELF-CARE
== END 2023-05-18 15:27 | disposition home or self-care (01) | DRG 871 ==
LOC: EC 10:03 → 3SCARD 12:50 → 2SICU 13:45 → 4SSUR 05-13 15:34
PROVIDERS: ADMIT Internal Medicine; ATTEND Internal Medicine
PROC: 5A09557 Assistance with Respiratory Ventilation, Greater than 96 Consecutive Hours, Continuous Positive Airway Pressure (ICD-10-PCS; principal; 2023-05-11)
DX: A41.50 Gram-negative sepsis, unspecified (principal); G93.41 Metabolic encephalopathy; J15.69 Pneumonia due to other Gram-negative bacteria; J96.21 Acute and chronic respiratory failure with hypoxia; J96.22 Acute and chronic respiratory failure with hypercapnia; Z68.41 Body mass index [BMI] 40.0-44.9, adult; I50.22 Chronic systolic (congestive) heart failure; J44.1 Chronic obstructive pulmonary disease with (acute) exacerbation; G93.1 Anoxic brain damage, not elsewhere classified; J44.0 Chronic obstructive pulmonary disease with (acute) lower respiratory infection; E87.20 Acidosis, unspecified; Z11.52 Encounter for screening for COVID-19; E66.01 Morbid (severe) obesity due to excess calories; I11.0 Hypertensive heart disease with heart failure; F17.210 Nicotine dependence, cigarettes, uncomplicated; Z71.6 Tobacco abuse counseling; E78.5 Hyperlipidemia, unspecified; F41.9 Anxiety disorder, unspecified; F32.A Depression, unspecified; Z99.81 Dependence on supplemental oxygen; G89.29 Other chronic pain; M54.50 Low back pain, unspecified; I25.10 Atherosclerotic heart disease of native coronary artery without angina pectoris; I25.2 Old myocardial infarction; I27.29 Other secondary pulmonary hypertension; I71.21 Aneurysm of the ascending aorta, without rupture; Z79.02 Long term (current) use of antithrombotics/antiplatelets; Z79.51 Long term (current) use of inhaled steroids; Z79.52 Long term (current) use of systemic steroids; Z79.82 Long term (current) use of aspirin; Z79.84 Long term (current) use of oral hypoglycemic drugs; Z79.899 Other long term (current) drug therapy; Z82.49 Family history of ischemic heart disease and other diseases of the circulatory system; Z98.61 Coronary angioplasty status; Z98.42 Cataract extraction status, left eye; Z98.41 Cataract extraction status, right eye; Z98.1 Arthrodesis status; Z98.51 Tubal ligation status
CPT/HCPCS: 36415; 36600; 71045; 80048; 80053; 80202; 81003; 82805; 83605; 83735; 83880; 84132; 84145; 84484; 85025; 85610; 85730; 86140; 87040; 87449; 87636; 93005; 94640; 94660; 94760; 96361; 96365; 96367; 96368; 96375; 99291

== ENCOUNTER 2023-06-30 01:11 | Inpatient (IN) | payer MEDICARE, OTHER ==
--- NOTE | 2023-06-30 01:17 | ED ---
SOB HPI - General Chief Complaint: Shortness of Breath Stated Complaint: sob Time Seen by Provider: 06/30/23 01:14 Source: patient Mode of arrival: EMS Limitations: no limitations - History of Present Illness Initial Comments: Blanka a 62-year-old female with a history of oxygen dependent COPD on 5 L continuous. Patient presents to the ER today via EMS in acute respiratory distress. Apparently patient woke from sleep unable to breathe, administered an albuterol treatment but patient continued to have difficulty in breathing and EMS was called. EMS arrived to find the patient in a tripod position tachypneic tachycardic grade diaphoretic with oxygen saturations in the 60s. Patient was placed on CPAP and brought to the ER for evaluation. History limited by patient's respiratory distress - Related Data Home Medications Medication Instructions Recorded Confirmed Albuterol Inhaler [Ventolin Hfa 2 puff INHALATION RT-Q4H PRN 04/09/22 05/11/23 Inhaler] Atorvastatin [Lipitor] 40 mg PO HS 04/09/22 05/11/23 Sertraline [Zoloft] 100 mg PO DAILY 06/15/22 05/11/23 Budesonide/Formoterol Fumarate 2 puff INHALATION RT-BID 07/13/22 05/11/23 [Symbicort 160-4.5 Mcg Inhaler] Ipratropium-Albuterol Nebulize 3 ml INHALATION RT-QID PRN 09/23/22 05/11/23 [Duoneb 0.5 mg-3 mg/3 ml Soln] Dapagliflozin Propanediol [Farxiga] 5 mg PO DAILY 11/19/22 05/11/23 Yupelri 175mcg/3ml 175 mcg INHALATION RT-DAILY 11/19/22 05/11/23 hydrOXYzine HCL [Atarax] 25 mg PO BID 11/19/22 05/11/23 Tiotropium [place] [Spiriva 1 cap INHALATION RT-DAILY 04/19/23 05/11/23 Handihaler] predniSONE 5 mg PO DAILY 04/19/23 05/11/23 lisinopriL 30 mg PO DAILY 05/11/23 05/11/23 Previous Rx's Medication Instructions Recorded Aspirin 81 mg PO DAILY 30 Days #30 tab 04/12/22 Clopidogrel [Plavix] 75 mg PO DAILY 30 Days #30 tab 04/26/23 Metoprolol Succinate (ER) [Toprol 25 mg PO DAILY 30 Days #30 tab 04/26/23 XL] Nitroglycerin Sl Tabs [Nitrostat] 0.4 mg SUBLINGUAL Q5M PRN #30 tab 04/26/23 Acetaminophen Tab [Tylenol] 650 mg PO Q4HR PRN tab 05/18/23 Furosemide [Lasix] 40 mg PO DAILY #30 tab 05/18/23 Ipratropium-Albuterol Nebulize 3 ml INHALATION RT-QID #100 each 05/18/23 [Duoneb 0.5 mg-3 mg/3 ml Soln] Lidocaine 4% Patch 2 patch TOPICAL DAILY #30 patch 05/18/23 guaiFENesin [Mucinex] 600 mg PO Q12HR 10 Days #20 tab 05/18/23 predniSONE 10 mg PO DIRECTED #30 tab 05/18/23 Allergies Allergy/AdvReac Type Severity Reaction Status Date / Time No Known Allergies Allergy Verified 05/11/23 11:47 Review of Systems ROS Statement: Those systems with pertinent positive or pertinent negative responses have been documented in the HPI. ROS Other: All systems not noted in ROS Statement are negative. Past Medical History Past Medical History: Coronary Artery Disease (CAD), Chest Pain / Angina, COPD, Respiratory Disorder Additional Past Medical History / Comment(s): Chronic hypercapnic respiratory failure, home oxygen at 5L/NC ATC, tracheobronchitis, aortic valve stenosis, chronic low back pain, DJD History of Any Multi-Drug Resistant Organisms: None Reported Past Surgical History: Breast Surgery, Tubal Ligation Additional Past Surgical History / Comment(s): Bilateral breast reductions, bilateral cataract removals. Past Anesthesia/Blood Transfusion Reactions: No Reported Reaction Date of Last Stent Placement:: 04/2023 Past Psychological History: Anxiety, Depression Smoking Status: Former smoker - Past Family History Father History Unknown: Yes Mother Family Medical History: Congestive Heart Failure (CHF), Diabetes Mellitus General Exam Limitations: no limitations General appearance: alert, in distress Head exam: Present: atraumatic Eye exam: Present: PERRL ENT exam: Present: mucous membranes moist Respiratory exam: Present: other (Tachypnea, tripod position, decreased air movement throughout chest) Cardiovascular Exam: Present: tachycardia GI/Abdominal exam: Present: soft Rectal exam: Present: deferred Extremities exam: Absent: pedal edema Neurological exam: Present: alert Skin exam: Present: diaphoretic Course Vital Signs 06/30/23 06/30/23 06/30/23 01:13 01:18 01:40 Temperature 98.3 F Pulse Rate 115 H 98 Respiratory 26 H 18 Rate Blood Pressure 136/83 O2 Sat by Pulse 98 Oximetry Fraction of 100 Inspired Oxygen (FIO2) 06/30/23 06/30/23 06/30/23 01:48 02:06 02:21 Temperature Pulse Rate 111 H 113 H Respiratory 21 Rate Blood Pressure 129/77 O2 Sat by Pulse 99 Oximetry Fraction of 80 Inspired Oxygen (FIO2) 06/30/23 06/30/23 06/30/23 02:26 02:30 03:00 Temperature Pulse Rate 112 H 108 H 102 H Respiratory 24 20 17 Rate Blood Pressure 129/77 129/77 101/67 O2 Sat by Pulse 100 99 99 Oximetry Fraction of Inspired Oxygen (FIO2) 06/30/23 06/30/23 06/30/23 03:30 04:00 05:00 Temperature Pulse Rate 96 89 81 Respiratory 16 16 16 Rate Blood Pressure 102/72 100/74 105/73 O2 Sat by Pulse 99 99 99 Oximetry Fraction of Inspired Oxygen (FIO2) 06/30/23 05:12 Temperature Pulse Rate Respiratory Rate Blood Pressure O2 Sat by Pulse Oximetry Fraction of 80 Inspired Oxygen (FIO2) Medical Decision Making - Medical Decision Making Was pt. sent in by a medical professional or institution ([facility], EDUCATION LIAISON, urgent care, hospital, or fdc...) When possible be specific @ -No Did you speak to anyone other than the patient for history (EMS, parent, family, police, friend...)? What history was obtained from this source @ -MS Did you review nursing and triage notes (agree or disagree)? Why? @ -I reviewed and agree with nursing and triage notes Were old charts reviewed (outside hosp., previous admission, EMS record, old EKG, old radiological studies, urgent care reports/EKG's, fdc records)? Report findings @ -Previous visits were reviewed Differential Diagnosis (chest pain, altered mental status, abdominal pain women, abdominal pain men, vaginal bleeding, weakness, fever, dyspnea, syncope, headache, dizziness, GI bleed, back pain, seizure, CVA, palpatations, mental health)? @ -Differential Dyspnea: Coronary syndrome, arrhythmia, tamponade, asthma, COPD, pulmonary embolism, pneumonia, pneumothorax, pulmonary effusion, anaphylaxis, diabetic ketoacidosis, flailed chest, pulmonary contusion, diaphragmatic rupture, anemia, neuromuscular, this is not meant to be an all-inclusive list. EKG interpreted by me (3pts min.). @ -As above X-rays interpreted by me (1pt min.). @ -Hyperinflated lungs with signs of fibrosis bilaterally no obvious consolidations CT interpreted by me (1pt min.). @ -None done U/S interpreted by me (1pt. min.). @ -None done What testing was considered but not performed or refused? (CT, X-rays, U/S, labs)? Why? @ -None What meds were considered but not given or refused? Why? @ -None Did you discuss the management of the patient with other professionals (professionals i.e. , PA, EDUCATION LIAISON, lab, RT, psych nurse, social worker masters, ethnic studies professor, teacher, corporate officer, case maker)? Give summary @ -No Was smoking cessation discussed for >3mins.? @ -No Was critical care preformed (if so, how long)? @ -No Were there social determinants of health that impacted care today? How? (Homelessness, low income, unemployed, alcoholism, drug addiction, transportation, low edu. Level, literacy, decrease access to med. care, fdc, rehab)? @ -No Was there de-escalation of care discussed even if they declined (Discuss DNR or withdrawal of care, Hospice)? DNR status @ -No What co-morbidities impacted this encounter? (DM, HTN, Smoking, COPD, CAD, Cancer, CVA, ARF, Chemo, Hep., AIDS, mental health diagnosis, sleep apnea, morbid obesity)? @ -COPD, morbid obesity Was patient admitted / discharged? Hospital course, mention meds given and route, prescriptions, significant lab abnormalities, going to OR and other pertinent info. @ -Admit Patient was seen and evaluated immediately upon arrival to the emergency department patient was in significant respiratory distress. Patient was placed on BiPAP, triple DuoNeb therapy and Solu-Medrol was initiated. Chest x-ray concerning for COPD with no signs of focal consolidation. Labs were obtained. His condition improved significantly with BiPAP, work of breathing and respiratory rate improved. Tachycardia resolved. Patient was negative for influenza COVID and RSV. Will plan to admit the patient for COPD exacerbation antibiotics were ordered the remainder of the septic workup was initiated and [facility]. Undiagnosed new problem with uncertain prognosis? @ -No Drug Therapy requiring intensive monitoring for toxicity (Heparin, Nitro, Insulin, Cardizem)? @ -No Were any procedures done? @ -No Diagnosis/symptom? @ -OPD exacerbation Acute, or Chronic, or Acute on Chronic? @ -Acute on chronic Uncomplicated (without systemic symptoms) or Complicated (systemic symptoms)? @ -Complicated Side effects of treatment? @ -No Exacerbation, Progression, or Severe Exacerbation? @ -Exacerbation Poses a threat to life or bodily function? How? (Chest pain, [place], [place], pneumonia, PE, COPD, DKA, ARF, appy, cholecystitis, CVA, Diverticulitis, Homicidal, Suicidal, threat to staff... and all critical care pts) @ -Yes, can lead to respiratory distress respiratory failure and - Lab Data Result diagrams: 06/30/23 01:15 06/30/23 01:15 Lab Results 06/30/23 06/30/23 06/30/23 Range/Units 01:15 01:15 01:15 WBC 17.7 H (3.8-10.6) k/uL RBC 3.58 L (3.80-5.40) m/uL Hgb 11.2 L (11.4-16.0) gm/dL Hct 35.9 (34.0-46.0) % MCV 100.2 H (80.0-100.0) fL MCH 31.3 (25.0-35.0) pg MCHC 31.2 (31.0-37.0) g/dL RDW 14.6 (11.5-15.5) % Plt Count 300 (150-450) k/uL MPV 7.9 Neutrophils % 78 % Lymphocytes % 12 % Monocytes % 5 % Eosinophils % 2 % Basophils % 1 % Neutrophils # 13.8 H (1.3-7.7) k/uL Lymphocytes # 2.2 (1.0-4.8) k/uL Monocytes # 0.9 (0-1.0) k/uL Eosinophils # 0.3 (0-0.7) k/uL Basophils # 0.1 (0-0.2) k/uL Hypochromasia Marked Macrocytosis Slight PT 10.2 (10.0-12.5) sec INR 0.9 (<1.2) APTT 22.9 (22.0-30.0) sec Sodium 141 (137-145) mmol/L Potassium 4.3 (3.5-5.1) mmol/L Chloride 100 (98-107) mmol/L Carbon Dioxide 31 H (22-30) mmol/L Anion Gap 10 mmol/L BUN 18 H (7-17) mg/dL Creatinine 0.60 (0.52-1.04) mg/dL Est GFR (CKD-EPI)AfAm >90 (>60 ml/min/1.73 sqM) Est GFR (CKD-EPI)NonAf >90 (>60 ml/min/1.73 sqM) Glucose 172 H (74-99) mg/dL Plasma Lactic Acid [place] (0.7-2.0) mmol/L Calcium 9.4 (8.4-10.2) mg/dL Magnesium 2.4 H (1.6-2.3) mg/dL Total Bilirubin 0.3 (0.2-1.3) mg/dL AST 25 (14-36) U/L ALT 16 (4-34) U/L Alkaline Phosphatase 121 (38-126) U/L NT-Pro-B Natriuret Pep 754 pg/mL Total Protein 6.7 (6.3-8.2) g/dL Albumin 3.9 (3.5-5.0) g/dL Influenza Type A (PCR) (Not Detectd) Influenza Type B (PCR) (Not Detectd) RSV (PCR) (Not Detectd) SARS-CoV-2 (PCR) (Not Detectd) 06/30/23 06/30/23 Range/Units 01:15 01:24 WBC (3.8-10.6) k/uL RBC (3.80-5.40) m/uL Hgb (11.4-16.0) gm/dL Hct (34.0-46.0) % MCV (80.0-100.0) fL MCH (25.0-35.0) pg MCHC (31.0-37.0) g/dL RDW (11.5-15.5) % Plt Count (150-450) k/uL MPV Neutrophils % % Lymphocytes % % Monocytes % % Eosinophils % % Basophils % % Neutrophils # (1.3-7.7) k/uL Lymphocytes # (1.0-4.8) k/uL Monocytes # (0-1.0) k/uL Eosinophils # (0-0.7) k/uL Basophils # (0-0.2) k/uL Hypochromasia Macrocytosis PT (10.0-12.5) sec INR (<1.2) APTT (22.0-30.0) sec Sodium (137-145) mmol/L Potassium (3.5-5.1) mmol/L Chloride (98-107) mmol/L Carbon Dioxide (22-30) mmol/L Anion Gap mmol/L BUN (7-17) mg/dL Creatinine (0.52-1.04) mg/dL Est GFR (CKD-EPI)AfAm (>60 ml/min/1.73 sqM) Est GFR (CKD-EPI)NonAf (>60 ml/min/1.73 sqM) Glucose (74-99) mg/dL Plasma Lactic Acid [place] 1.6 (0.7-2.0) mmol/L Calcium (8.4-10.2) mg/dL Magnesium (1.6-2.3) mg/dL Total Bilirubin (0.2-1.3) mg/dL AST (14-36) U/L ALT (4-34) U/L Alkaline Phosphatase (38-126) U/L NT-Pro-B Natriuret Pep pg/mL Total Protein (6.3-8.2) g/dL Albumin (3.5-5.0) g/dL Influenza Type A (PCR) Not Detected (Not Detectd) Influenza Type B (PCR) Not Detected (Not Detectd) RSV (PCR) Not Detected (Not Detectd) SARS-CoV-2 (PCR) Not Detected (Not Detectd) - EKG Data -: EKG Interpreted by Me EKG Comments: EKG interpreted by me, EKG obtained due to shortness of breath EKG obtained at 1:15 AM, rate is 114 rhythm is sinus tachycardia leftward axis, VT is 116 QRS 115 QTc [address] elevation there is mild ST depressions diffusely likely demand ischemia no evidence of acute infarction. Disposition Clinical Impression: COPD exacerbation, BiPAP (biphasic positive airway pressure) dependence, Obesity (BMI 30-39.9), Hypoxia, Respiratory failure with hypercapnia Disposition: ADMITTED IP TO THIS HOSP Condition: Serious
[2023-06-30] MEDS: IPRATROPIUM-ALBUTEROL 3 ML NEB INHALATION STA (01:23)
[2023-06-30 01:28] LABS: Basophils # (A) 0.1 k/uL (0-0.2); Basophils % (A) 1 %; Eosinophils # (A) 0.3 k/uL (0-0.7); Eosinophils % (A) 2 %; HCT 35.9 % (34.0-46.0); HGB 11.2 gm/dL (11.4-16.0); Hypochromasia Marked; Lymphocytes # (A) 2.2 k/uL (1.0-4.8); Lymphocytes % (A) 12 %; MCH 31.3 pg (25.0-35.0); MCHC 31.2 g/dL (31.0-37.0); MCV 100.2 fL (80.0-100.0); Macrocytosis Slight; Mean Platelet Volume 7.9; Monocytes # (A) 0.9 k/uL (0-1.0); Monocytes % (A) 5 %; Neutrophils # (A) 13.8 k/uL (1.3-7.7); Neutrophils % (A) 78 %; Platelet Count 300 k/uL (150-450); RBC 3.58 m/uL (3.80-5.40); RDW 14.6 % (11.5-15.5); WBC 17.7 k/uL (3.8-10.6)
[2023-06-30] MEDS: methylPREDNISolone SOD SUCCI 125 MG/2 ML VIAL IV STA (01:36)
[2023-06-30] MEDS: SODIUM CHLORIDE 0.9% 1,000 ML IV STA (01:36)
[2023-06-30 01:43] LABS: ALT 16 U/L (4-34); AST 25 U/L (14-36); African American GFR (CKD) >90 (>60 ml/min/1.73 sqM); Albumin 3.9 g/dL (3.5-5.0); Alkaline Phosphatase 121 U/L (38-126); Anion Gap 10 mmol/L; Blood Urea Nitrogen 18 mg/dL (7-17); Calcium 9.4 mg/dL (8.4-10.2); Carbon Dioxide 31 mmol/L (22-30); Chloride 100 mmol/L (98-107); Glucose 172 mg/dL (74-99); Magnesium 2.4 mg/dL (1.6-2.3); Non-African American GFR(CKD) >90 (>60 ml/min/1.73 sqM); Potassium 4.3 mmol/L (3.5-5.1); Sodium 141 mmol/L (137-145); Total Bilirubin 0.3 mg/dL (0.2-1.3); Total Protein 6.7 g/dL (6.3-8.2)
[2023-06-30 01:44] LABS: INR 0.9 (<1.2); Prothrombin Time 10.2 sec (10.0-12.5)
[2023-06-30 01:45] LABS: Partial Thromboplastin Time 22.9 sec (22.0-30.0)
[2023-06-30 01:51] LABS: NT-Pro-B-Type Natriuretic Pept 754 pg/mL
--- NOTE | 2023-06-30 02:16 | XR ---
EXAM: XR Chest, 1 View CLINICAL HISTORY: ITS.REASON XR Reason: dyspnea TECHNIQUE: Frontal view of the chest. COMPARISON: No relevant prior studies available. FINDINGS: Lungs: No consolidation or mass. Slight bibasilar opacities Pleural space: No acute findings Heart: cardiomegaly. Bones/joints: No acute findings. IMPRESSION: Slight bibasilar opacities
[2023-06-30] MEDS ORDERED: NALOXONE 0.4 MG/ML 1 ML VIAL IVP PRN (02:33)
[2023-06-30] MEDS: IPRATROPIUM-ALBUTEROL 3 ML NEB INHALATION SCH (07:26)
[2023-06-30] MEDS ORDERED: hydrOXYzine HCL 25 MG TAB PO PRN (07:39)
[2023-06-30] MEDS: SYMBICORT 160-4.5 MCG INHALER INHALATION SCH (08:51)
--- NOTE | 2023-06-30 09:25 | P.HPIM ---
History of Present Illness This is a pleasant 62 years old female with past medical history of multiple medical problems including COPD and chronic hypoxic respiratory failure on 5 L oxygen at home and she follows up with Dr. Collins for her COPD. Presents because of worsening dyspnea of 1 day duration associated with cough, no significant phlegm. No significant chest pain but she has some point tenderness below the right arm. Also of 1 day duration. She denies any other change in urine or bowel habits. No headache dizziness weakness or numbness. Currently patient was on BiPAP She denies current smoking alcohol or illicit drugs. She is afebrile. Labs showing leukocytosis of 17,000, hemoglobin 11, INR, BMP, liver enzymes are unremarkable proBNP 754. Influenza A and type B, RSV, SARS (coronavirus) are and detected EKG showing sinus tachycardia at 114 Chest x-ray slight bibasilar opacities per report Patient started on Zithromax and normal saline at 75 mL/h. Review of Systems Review of systems CONSTITUTIONAL: No fever, no malaise, no fatigue. HEENT: No recent visual problems or hearing problems. Denied any sore throat. CARDIOVASCULAR: No orthopnea, PND, no palpitations, no syncope. PULMONARY: No chest wall tenderness, no hemoptysis. GASTROINTESTINAL: No diarrhea, no nausea, no vomiting, no abdominal pain. Normoactive bowel sounds. NEUROLOGICAL: No headaches, no weakness, no numbness. HEMATOLOGICAL: Denies any bleeding or petechiae. GENITOURINARY: Denies any burning micturition, frequency, or urgency. MUSCULOSKELETAL/RHEUMATOLOGICAL: Denies any joint pain, swelling, or any muscle pain. ENDOCRINE: Denies any polyuria or polydipsia. Past Medical History Past Medical History: Coronary Artery Disease (CAD), Chest Pain / Angina, COPD, Respiratory Disorder Additional Past Medical History / Comment(s): Chronic hypercapnic respiratory failure, home oxygen at 5L/[place] ATC, tracheobronchitis, aortic valve stenosis, chronic low back pain, DJD History of Any Multi-Drug Resistant Organisms: None Reported Past Surgical History: Breast Surgery, Tubal Ligation Additional Past Surgical History / Comment(s): Bilateral breast reductions, bilateral cataract removals. Past Anesthesia/Blood Transfusion Reactions: No Reported Reaction Date of Last Stent Placement:: 04/2023 Past Psychological History: Anxiety, Depression Smoking Status: Former smoker - Past Family History Father History Unknown: Yes Mother Family Medical History: Congestive Heart Failure (CHF), Diabetes Mellitus Medications and Allergies Home Medications Medication Instructions Recorded Confirmed Type Albuterol Inhaler [Ventolin Hfa 2 puff INHALATION RT-Q4H PRN 04/09/22 06/30/23 History Inhaler] Atorvastatin [Lipitor] 40 mg PO HS 04/09/22 06/30/23 History Aspirin 81 mg PO DAILY 30 Days #30 tab 04/12/22 06/30/23 Rx Sertraline [Zoloft] 100 mg PO DAILY 06/15/22 06/30/23 History Budesonide/Formoterol Fumarate 2 puff INHALATION RT-BID 07/13/22 06/30/23 History [Symbicort 160-4.5 Mcg Inhaler] Ipratropium-Albuterol Nebulize 3 ml INHALATION RT-QID PRN 09/23/22 06/30/23 History [Duoneb 0.5 mg-3 mg/3 ml Soln] Dapagliflozin Propanediol [Farxiga] 5 mg PO DAILY 11/19/22 06/30/23 History Yupelri 175mcg/3ml 175 mcg INHALATION RT-DAILY 11/19/22 06/30/23 History hydrOXYzine HCL [Atarax] 25 mg PO BID 11/19/22 06/30/23 History Tiotropium [place] [Spiriva 1 cap INHALATION RT-DAILY 04/19/23 06/30/23 History Handihaler] predniSONE 5 mg PO DAILY 04/19/23 06/30/23 History Clopidogrel [Plavix] 75 mg PO DAILY 30 Days #30 tab 04/26/23 06/30/23 Rx Metoprolol Succinate (ER) [Toprol 25 mg PO DAILY 30 Days #30 tab 04/26/23 06/30/23 Rx XL] Nitroglycerin Sl Tabs [Nitrostat] 0.4 mg SUBLINGUAL Q5M PRN #30 tab 04/26/23 06/30/23 Rx lisinopriL 30 mg PO DAILY 05/11/23 06/30/23 History Acetaminophen Tab [Tylenol] 650 mg PO Q4HR PRN tab 05/18/23 06/30/23 Rx Furosemide [Lasix] 40 mg PO DAILY #30 tab 05/18/23 06/30/23 Rx Ipratropium-Albuterol Nebulize 3 ml INHALATION RT-QID #100 each 05/18/23 06/30/23 Rx [Duoneb 0.5 mg-3 mg/3 ml Soln] Lidocaine 4% Patch 2 patch TOPICAL DAILY #30 patch 05/18/23 06/30/23 Rx Meloxicam [Mobic] 7.5 mg PO BID 06/30/23 06/30/23 History Allergies Allergy/AdvReac Type Severity Reaction Status Date / Time No Known Allergies Allergy Verified 06/30/23 07:09 Physical Exam Vitals: Vital Signs Temp Pulse Resp BP Pulse Ox FiO2 06/30/23 08:55 98 65 06/30/23 08:54 55 06/30/23 08:07 65 06/30/23 07:35 108 H 06/30/23 07:31 97 80 06/30/23 07:26 97 06/30/23 06:00 84 12 109/75 100 06/30/23 05:12 80 06/30/23 05:00 81 16 105/73 99 06/30/23 04:00 89 16 100/74 99 06/30/23 03:30 96 16 102/72 99 06/30/23 03:00 102 H 17 101/67 99 06/30/23 02:30 108 H 20 129/77 99 06/30/23 02:26 112 H 24 129/77 100 06/30/23 02:21 80 06/30/23 02:06 113 H 21 129/77 99 06/30/23 01:48 111 H 06/30/23 01:40 18 06/30/23 01:18 98 100 06/30/23 01:13 98.3 F 115 H 26 H 136/83 98 Intake and Output 06/29/23 06/30/23 06/30/23 22:59 06:59 14:59 Other: Weight 98.8 kg -GENERAL: The patient is alert and oriented x3, not in any acute distress. W obese. HEENT: Pupils are round and equally reacting to light. EOMI. No scleral icterus. No conjunctival pallor. Normocephalic, atraumatic. No pharyngeal erythema. No thyromegaly. CARDIOVASCULAR: S1 and S2 present. No murmurs, rubs, or gallops. -PULMONARY: Decreased air entry on both sides tation, no wheezing , no crackles. ABDOMEN: Soft, nontender, nondistended, normoactive bowel sounds. No palpable organomegaly. MUSCULOSKELETAL: No joint swelling or deformity. EXTREMITIES: No cyanosis, clubbing, or pedal edema. NEUROLOGICAL: Gross neurological examination did not reveal any focal deficits. SKIN: No rashes. no petechiae. Results CBC & Chem 7: 06/30/23 01:15 06/30/23 01:15 Labs: Abnormal Lab Results - Last 24 Hours (Table) 06/30/23 06/30/23 Range/Units 01:15 01:15 WBC 17.7 H (3.8-10.6) k/uL RBC 3.58 L (3.80-5.40) m/uL Hgb 11.2 L (11.4-16.0) gm/dL MCV 100.2 H (80.0-100.0) fL Neutrophils # 13.8 H (1.3-7.7) k/uL Carbon Dioxide 31 H (22-30) mmol/L BUN 18 H (7-17) mg/dL Glucose 172 H (74-99) mg/dL Magnesium 2.4 H (1.6-2.3) mg/dL Assessment and Plan Assessment: Acute COPD exacerbation Acute on chronic hypoxic respiratory failure Obesity with BMI of 38.6. History of coronary artery disease status post stent History of osteoarthritis Anxiety and depression, not an active issue Plan: Continue with Solu-Medrol Continue with Zithromax Patient is on gentle hydration normal saline Continue with her home dose of aspirin and Plavix Pulmonary consult Continue with BiPAP machine as needed Labs and medication were reviewed.. Continue same treatment. Continue with symptomatic treatment. Resume home medication. Monitor labs and vitals. DVT and GI prophylaxis. Further recommendations as per clinical course of the patient DVT prophylaxis: Subcutaneous heparin GI Prophylaxis: Pepcid PT/OT: Pending Prognosis is guarded
[2023-06-30] MEDS: SERTRALINE 100 MG TAB PO SCH (09:33)
[2023-06-30] MEDS: METOPROLOL SUCCINATE (ER) 25 MG TAB.ER.24H PO SCH (09:33)
[2023-06-30] MEDS: CLOPIDOGREL 75 MG TAB PO SCH (09:33)
[2023-06-30] MEDS: AZITHROMYCIN 500 MG TAB PO SCH (09:33)
[2023-06-30] MEDS: ASPIRIN 81 MG PO SCH (09:33)
[2023-06-30] MEDS: FUROSEMIDE 40 MG TAB PO SCH (09:34)
[2023-06-30] MEDS: DAPAGLIFLOZIN PROPANEDIOL 5 MG TABLET PO SCH (09:34)
[2023-06-30] MEDS: HEPARIN SODIUM,PORCINE 5,000 UNIT/ML 1 ML VIAL SQ SCH (09:34)
[2023-06-30] MEDS: FAMOTIDINE 20 MG/2 ML VIAL IV SCH (09:34)
[2023-06-30] MEDS: LIDOCAINE 4% PATCH TOPICAL SCH (09:34)
[2023-06-30] MEDS: methylPREDNISolone SOD SUCCI 125 MG/2 ML VIAL IV SCH (11:52)
[2023-06-30] MEDS: ATORVASTATIN 40 MG TAB PO SCH (20:28)
[2023-06-30 20:51] LABS: Glucose,Whole Blood 206 mg/dL (70-110)
[2023-06-30] MEDS ORDERED: RX INFO: IV CONTRAST WAS GIVEN 1 EACH MISC MISCELLANE PRN (22:15)
--- NOTE | 2023-06-30 23:02 | CT ---
EXAM: CT Angiography Chest With Intravenous Contrast CLINICAL HISTORY: ITS.REASON CT Reason: positive d-dimer TECHNIQUE: Axial computed tomographic angiography images of the chest with intravenous contrast. CTDI is 14.9 mGy and DLP is 634.9 mGy-cm. This CT exam was performed using one or more of the following dose reduction techniques: automated exposure control, adjustment of the mA and/or kV according to patient size, and/or use of iterative reconstruction technique. MIP reconstructed images were created and reviewed. COMPARISON: No relevant prior studies available. FINDINGS: LUNGS: No focal consolidation, pleural effusion, or pneumothorax. Atelectasis at the lung bases. HEART: Cardiomegaly. VASCULATURE: No acute pulmonary embolism. Atherosclerotic changes of the aorta. THYROID: Within normal limits. MEDIASTINUM + LYMPH NODES: There are no pathologically enlarged mediastinal, hilar, or axillary lymph nodes. SUPERIOR ABDOMEN: Hepatic steatosis. MUSCULOSKELETAL: Degenerative changes. IMPRESSION: No acute pulmonary embolism.
[2023-07-01 06:03] LABS: Glucose,Whole Blood 167 mg/dL (70-110)
[2023-07-01] MEDS: SODIUM CHLORIDE 0.9% 1,000 ML IV SCH (06:31)
--- NOTE | 2023-07-01 09:57 | P.PN ---
Subjective This is a pleasant 62 years old female with past medical history of multiple medical problems including COPD and chronic hypoxic respiratory failure on 5 L oxygen at home and she follows up with Dr. Collins for her COPD. Presents because of worsening dyspnea of 1 day duration associated with cough, no significant phlegm. No significant chest pain but she has some point tenderness below the right arm. Also of 1 day duration. She denies any other change in urine or bowel habits. No headache dizziness weakness or numbness. Currently patient was on BiPAP She denies current smoking alcohol or illicit drugs. She is afebrile. Labs showing leukocytosis of 17,000, hemoglobin 11, INR, BMP, liver enzymes are unremarkable proBNP 754. Influenza A and type B, RSV, SARS (coronavirus) are and detected EKG showing sinus tachycardia at 114 Chest x-ray slight bibasilar opacities per report Patient started on Zithromax and normal saline at 75 mL/h. 07/01/2023 Last night patient was more short of breath and her oxygen requirement went up from 7-8 and she had hard time breathing We ordered D-dimer which was elevated 0.82. We obtained CTA of the chest which I reviewed by myself showing no evidence of acute pulmonary embolism. Patient after that was placed on BiPAP and she felt better This morning she is still lethargic mildly confused and she still hypoxic requiring 8 L of oxygen via nasal cannula No chest pain no other new complaints. No diarrhea. She remains on IV Solu-Medrol 60 mg and Zithromax and normal saline 75 mL/h Continued on her home dose of aspirin and Plavix. Repeat labs still pending and we are going to monitor creatinine and white cell count and hemoglobin. Review of systems CONSTITUTIONAL: No fever, no malaise, no fatigue. HEENT: No recent visual problems or hearing problems. Denied any sore throat. GENITOURINARY: Denies any burning micturition, frequency, or urgency. MUSCULOSKELETAL/RHEUMATOLOGICAL: Denies any joint pain, swelling, or any muscle pain. ENDOCRINE: Denies any polyuria or polydipsia. Active Medications Generic Name Dose Route Start Last Admin Trade Name Freq PRN Reason Stop Dose Admin Acetaminophen 650 mg 06/30/23 07:39 Acetaminophen Tab 325 Mg Tab PO Q4HR PRN Fever and/or Mild Pain Albuterol/Ipratropium 3 ml 06/30/23 08:00 07/01/23 07:39 Ipratropium-Albuterol 3 Ml Neb INHALATION Not Given RT-QID CHANTEL Aspirin 81 mg 06/30/23 09:00 07/01/23 08:01 Aspirin 81 Mg PO 81 mg DAILY CHANTEL Administration Atorvastatin Calcium 40 mg 06/30/23 21:00 06/30/23 20:28 Atorvastatin 40 Mg Tab PO 40 mg HS CHANTEL Administration Azithromycin 500 mg 06/30/23 09:00 07/01/23 08:00 Azithromycin 500 Mg Tab PO 07/02/23 09:01 500 mg DAILY CHANTEL Administration Protocol Budesonide/Formoterol Fumarate 2 puff 06/30/23 08:00 07/01/23 07:39 Symbicort 160-4.5 Mcg Inhaler INHALATION Not Given RT-BID [facility] Clopidogrel Bisulfate 75 mg 06/30/23 09:00 07/01/23 08:00 Clopidogrel 75 Mg Tab PO 75 mg DAILY CHANTEL Administration Dapagliflozin 5 mg 06/30/23 09:00 07/01/23 08:00 Dapagliflozin Propanediol 5 Mg Tablet PO 5 mg DAILY CHANTEL Administration Famotidine 20 mg 06/30/23 09:00 07/01/23 08:00 Famotidine 20 Mg/2 Ml Vial IV 20 mg Q12HR CHANTEL Administration Furosemide 40 mg 06/30/23 09:00 07/01/23 08:00 Furosemide 40 Mg Tab PO 40 mg DAILY CHANTEL Administration Heparin Sodium (Porcine) 5,000 unit 06/30/23 09:00 07/01/23 08:01 Heparin Sodium,Porcine 5,000 Unit/Ml 1 Ml Vial SQ 5,000 unit Q12HR CHANTEL Administration Hydroxyzine HCl 25 mg 06/30/23 07:39 Hydroxyzine Hcl 25 Mg Tab PO BID PRN Anxiety Sodium Chloride 1,000 mls @ 75 mls/hr 07/01/23 06:30 07/01/23 06:31 Saline 0.9% IV 75 mls/hr .[id number] CHANTEL Administration Lidocaine 2 patch 06/30/23 09:00 07/01/23 08:01 Lidocaine 4% Patch TOPICAL 2 patch DAILY CHANTEL Administration Protocol Methylprednisolone Sodium Succinate 60 mg 06/30/23 12:00 07/01/23 06:13 Methylprednisolone Sod Succi 125 Mg/2 Ml Vial IV 60 mg Q6HR CHANTEL Administration Metoprolol Succinate 25 mg 06/30/23 09:00 07/01/23 08:01 Metoprolol Succinate (Er) 25 Mg Tab.Er.24h PO 25 mg DAILY CHANTEL Administration Miscellaneous Information 1 each 06/30/23 22:15 Rx Info: Iv Contrast Was Given 1 Each Misc MISCELLANE 07/02/23 22:16 DAILY PRN Per Protocol Naloxone HCl 0.2 mg 06/30/23 02:33 Naloxone 0.4 Mg/Ml 1 Ml Vial IVP Q2M PRN Opioid Reversal Sertraline HCl 100 mg 06/30/23 09:00 07/01/23 08:01 Sertraline 100 Mg Tab PO 100 mg DAILY CHANTEL Administration Objective - Vital Signs Vital signs: Vital Signs Temp 98.2 F 07/01/23 07:56 Pulse 91 07/01/23 07:56 Resp 19 07/01/23 07:56 BP 143/80 07/01/23 07:56 Pulse Ox 95 07/01/23 07:56 FiO2 55 07/01/23 04:00 Intake & Output 06/30/23 07/01/23 07/01/23 18:59 06:59 18:59 Intake Total 860 Output Total 850 Balance 860 -850 Weight 98.8 kg Intake: Intake, IV Titration 500 Amount Sodium Chloride 0.9% 1, 500 000 ml @ 75 mls/hr IV . [id number] STA Rx#:[id number] Oral 360 Output: Urine 850 Other: Voiding Method External Catheter External Catheter # Voids 3 1 - Exam GENERAL: The patient is alert and oriented x3, not in any acute distress. Well developed, well nourished. HEENT: Pupils are round and equally reacting to light. EOMI. No scleral icterus. No conjunctival pallor. Normocephalic, atraumatic. No pharyngeal erythema. No thyromegaly. CARDIOVASCULAR: S1 and S2 present. No murmurs, rubs, or gallops. -PULMONARY: Chest is donnell decreased air entry on both sides. No crackles. Mild scattered wheezing ABDOMEN: Soft, nontender, nondistended, normoactive bowel sounds. No palpable organomegaly. MUSCULOSKELETAL: No joint swelling or deformity. EXTREMITIES: No cyanosis, clubbing, or pedal edema. NEUROLOGICAL: Gross neurological examination did not reveal any focal deficits. SKIN: No rashes. no petechiae. - Labs CBC & Chem 7: 06/30/23 01:15 06/30/23 01:15 Labs: Abnormal Lab Results - Last 24 Hours (Table) 06/30/23 06/30/23 06/30/23 Range/Units 07:00 20:49 21:38 D-Dimer 0.82 H (<0.60) mg/L FEU POC Glucose (mg/dL) 206 H (70-110) mg/dL Procalcitonin 0.11 H (0.02-0.09) ng/mL 07/01/23 Range/Units 06:02 D-Dimer (<0.60) mg/L FEU POC Glucose (mg/dL) 167 H (70-110) mg/dL Procalcitonin (0.02-0.09) ng/mL Assessment and Plan Assessment: Acute COPD exacerbation Acute on chronic hypoxic respiratory failure Obesity with BMI of 38.6. History of coronary artery disease status post stent History of osteoarthritis Anxiety and depression, not an active issue Plan: Continue with Solu-Medrol Continue with Zithromax Patient is on gentle hydration normal saline Continue with her home dose of aspirin and Plavix Pulmonary consult Continue with BiPAP machine as needed Labs and medication were reviewed.. Continue same treatment. Continue with symptomatic treatment. Resume home medication. Monitor labs and vitals. DVT and GI prophylaxis. Further recommendations as per clinical course of the patient DVT prophylaxis: Subcutaneous heparin GI Prophylaxis: Pepcid PT/OT: Pending Prognosis is guarded
[2023-07-01 11:23] LABS: Glucose,Whole Blood 250 mg/dL (70-110)
[2023-07-01] MEDS ORDERED: DEXTROSE 50% SYRINGE 50 ML IVP PRN ×2 (11:30)
[2023-07-01 11:56] LABS: Basophils % (A) 0 %; Eosinophils % (A) 0 %; HCT 31.4 % (34.0-46.0); HGB 10.2 gm/dL (11.4-16.0); Hypochromasia Marked; Lymphocytes # (A) 0.5 k/uL (1.0-4.8); Lymphocytes % (A) 3 %; MCH 32.4 pg (25.0-35.0); MCHC 32.4 g/dL (31.0-37.0); MCV 99.7 fL (80.0-100.0); Macrocytosis Slight; Mean Platelet Volume 8.6; Monocytes # (A) 0.2 k/uL (0-1.0); Monocytes % (A) 2 %; Neutrophils # (A) 14.4 k/uL (1.3-7.7); Neutrophils % (A) 94 %; Platelet Count 256 k/uL (150-450); RBC 3.14 m/uL (3.80-5.40); RDW 14.5 % (11.5-15.5); WBC 15.2 k/uL (3.8-10.6)
[2023-07-01] MEDS: INSULIN ASPART (NovoLOG) 100 UNIT/ML VIAL SQ SCH (12:09)
--- NOTE | 2023-07-01 13:18 | P.CNPUL ---
History of Present Illness Consult date: 07/01/23 Requesting physician: Glenn Carney Reason for consult: COPD Chief complaint: Shortness of breath, cough wheezing History of present illness: This is a 62-year-old female with known history of severe COPD and chronic hypoxic respiratory failure, patient is normally maintained on 5 L nasal cannula at home, and she is on maximal therapy for her COPD. Patient was recently in the hospital, and she is now back again with similar symptoms of cough wheezing shortness of breath. No fever no chills no hemoptysis no chest pain. CT angiogram of the chest on admission showed no evidence of pulmonary embolism, no evidence of infiltrate, minimal atelectasis at the lung bases noted. CBC showed leukocytosis with WBC count 15.2 hemoglobin is 10.2. D-dimer was 0.82, however CT angiogram of the chest showed no evidence of pulmonary embolism, procalcitonin level is borderline 0.11 considering her COPD picture and her presentation, this consult was initiated. Patient is already on maximal therapy for her COPD, and I fully agree with the present treatment plan Review of Systems CONSTITUTIONAL: Negative HEENT: No recent visual problems or hearing problems. Denied any sore throat. CARDIOVASCULAR: Negative . PULMONARY: As noted in HPI mostly shortness of breath cough and wheezing GASTROINTESTINAL: No diarrhea, no nausea, no vomiting, no abdominal pain. Normoactive bowel sounds. NEUROLOGICAL: Negative HEMATOLOGICAL: Denies any bleeding or petechiae. GENITOURINARY: Denies any burning micturition, frequency, or urgency. MUSCULOSKELETAL/RHEUMATOLOGICAL: Negative ENDOCRINE: Denies any polyuria or polydipsia. Past Medical History Past Medical History: Coronary Artery Disease (CAD), Chest Pain / Angina, COPD, Respiratory Disorder Additional Past Medical History / Comment(s): Chronic hypercapnic respiratory failure, home oxygen at 5L/[place] ATC, tracheobronchitis, aortic valve stenosis, chronic low back pain, DJD History of Any Multi-Drug Resistant Organisms: None Reported Past Surgical History: Breast Surgery, Tubal Ligation Additional Past Surgical History / Comment(s): Bilateral breast reductions, bilateral cataract removals. Past Anesthesia/Blood Transfusion Reactions: No Reported Reaction Date of Last Stent Placement:: 04/2023 Past Psychological History: Anxiety, Depression Additional Psychological History / Comment(s): Pt resides with her spouse. She has home oxygen and a nebulizer. She chooses not to drive, her spouse drives. She had [facility] after last hospitalization but no longer coming to home. Smoking Status: Former smoker Past Alcohol Use History: None Reported Additional Past Alcohol Use History / Comment(s): Pt started smoking as a teen and quit within the last 5 years ago. She was a 2 ppd smoker. Past Drug Use History: None Reported - Past Family History Father History Unknown: Yes Mother Family Medical History: Congestive Heart Failure (CHF), Diabetes Mellitus Medications and Allergies Home Medications Medication Instructions Recorded Confirmed Type Albuterol Inhaler [Ventolin Hfa 2 puff INHALATION RT-Q4H PRN 04/09/22 06/30/23 History Inhaler] Atorvastatin [Lipitor] 40 mg PO HS 04/09/22 06/30/23 History Aspirin 81 mg PO DAILY 30 Days #30 tab 04/12/22 06/30/23 Rx Sertraline [Zoloft] 100 mg PO DAILY 06/15/22 06/30/23 History Budesonide/Formoterol Fumarate 2 puff INHALATION RT-BID 07/13/22 06/30/23 History [Symbicort 160-4.5 Mcg Inhaler] Ipratropium-Albuterol Nebulize 3 ml INHALATION RT-QID PRN 09/23/22 06/30/23 History [Duoneb 0.5 mg-3 mg/3 ml Soln] Dapagliflozin Propanediol [Farxiga] 5 mg PO DAILY 11/19/22 06/30/23 History Yupelri 175mcg/3ml 175 mcg INHALATION RT-DAILY 11/19/22 06/30/23 History hydrOXYzine HCL [Atarax] 25 mg PO BID 11/19/22 06/30/23 History Tiotropium [place] [Spiriva 1 cap INHALATION RT-DAILY 04/19/23 06/30/23 History Handihaler] predniSONE 5 mg PO DAILY 04/19/23 06/30/23 History Clopidogrel [Plavix] 75 mg PO DAILY 30 Days #30 tab 04/26/23 06/30/23 Rx Metoprolol Succinate (ER) [Toprol 25 mg PO DAILY 30 Days #30 tab 04/26/23 06/30/23 Rx XL] Nitroglycerin Sl Tabs [Nitrostat] 0.4 mg SUBLINGUAL Q5M PRN #30 tab 04/26/23 06/30/23 Rx lisinopriL 30 mg PO DAILY 05/11/23 06/30/23 History Acetaminophen Tab [Tylenol] 650 mg PO Q4HR PRN tab 05/18/23 06/30/23 Rx Furosemide [Lasix] 40 mg PO DAILY #30 tab 05/18/23 06/30/23 Rx Ipratropium-Albuterol Nebulize 3 ml INHALATION RT-QID #100 each 05/18/23 06/30/23 Rx [Duoneb 0.5 mg-3 mg/3 ml Soln] Lidocaine 4% Patch 2 patch TOPICAL DAILY #30 patch 05/18/23 06/30/23 Rx Meloxicam [Mobic] 7.5 mg PO BID 06/30/23 06/30/23 History Allergies Allergy/AdvReac Type Severity Reaction Status Date / Time No Known Allergies Allergy Verified 06/30/23 07:09 Physical Exam Vitals: Vital Signs Temp Pulse Pulse Resp BP BP Pulse Ox 07/01/23 11:20 98.1 F 91 19 108/70 95 07/01/23 10:55 90 07/01/23 10:43 90 07/01/23 07:56 98.2 F 91 19 143/80 95 07/01/23 04:00 98.4 F 88 19 123/70 100 07/01/23 00:05 98.7 F 103 H 19 113/63 95 06/30/23 20:43 98 19 116/64 92 L 06/30/23 20:23 98.5 F 103 H 22 104/65 95 06/30/23 20:07 102 H 06/30/23 19:54 101 H 06/30/23 16:10 92 L 06/30/23 16:00 89 98/63 74 L 06/30/23 15:50 89 06/30/23 15:40 85 06/30/23 14:00 95 20 FiO2 07/01/23 11:20 07/01/23 10:55 07/01/23 10:43 07/01/23 07:56 07/01/23 04:00 55 07/01/23 00:05 06/30/23 20:43 06/30/23 20:23 06/30/23 20:07 06/30/23 19:54 06/30/23 16:10 06/30/23 16:00 06/30/23 15:50 06/30/23 15:40 06/30/23 14:00 Intake and Output 06/30/23 07/01/23 07/01/23 22:59 06:59 14:59 Output Total 850 Balance -850 Output: Urine 850 Other: Voiding Method External Catheter External Catheter External Catheter # Voids 1 1 Weight 98.8 kg General: The patient is awake and alert, obese, in no distress, and does not appear acutely ill. Patient is however on 8 L high flow nasal cannula and O2 sats is 95% Skin: Skin is warm and dry and no rashes or lesions are noted. Eye: Pupils are equal, round and reactive to light, extra-ocular movements are intact; there is normal conjunctiva bilaterally. Ears, nose, mouth and throat: There are moist mucous membranes and no oral lesions. Neck: The neck is supple, there is no tenderness or JVD. Cardiovascular: There is a regular rate and rhythm. No murmur, rub or gallop is appreciated. Respiratory: Diminished breath sound bilaterally no crackles rhonchi or wheezes Gastrointestinal: Soft, non-distended, non-tender abdomen without masses or organomegaly noted. There is no rebound or guarding present. Bowel sounds are unremarkable. Back: There is no tenderness to palpation in the midline. There is no obvious d eformity. Musculoskeletal: Normal ROM, no tenderness, There is no pedal edema. There is no calf tenderness or swelling. No cords were appreciated. Neurological: CN II-XII intact, Cranial nerves III through XII are intact. There are no obvious motor or sensory deficits. Coordination appears grossly intact. Speech is normal. Psychiatric: Cooperative, appropriate mood & affect, normal judgment. Results - Laboratory Findings CBC and BMP: 07/01/23 08:50 06/30/23 01:15 PT/INR, D-dimer PT 10.2 sec (10.0-12.5) 06/30/23 01:15 INR 0.9 (<1.2) 06/30/23 01:15 D-Dimer 0.82 mg/L FEU (<0.60) H 06/30/23 21:38 Abnormal lab findings: Abnormal Labs 06/30/23 06/30/23 06/30/23 01:15 01:15 07:00 WBC 17.7 H RBC 3.58 L Hgb 11.2 L Hct MCV 100.2 H Neutrophils # 13.8 H Lymphocytes # D-Dimer Carbon Dioxide 31 H BUN 18 H Glucose 172 H POC Glucose (mg/dL) Magnesium 2.4 H Procalcitonin 0.11 H 06/30/23 06/30/23 07/01/23 20:49 21:38 06:02 WBC RBC Hgb Hct MCV Neutrophils # Lymphocytes # D-Dimer 0.82 H Carbon Dioxide BUN Glucose POC Glucose (mg/dL) 206 H 167 H Magnesium Procalcitonin 07/01/23 07/01/23 08:50 11:21 WBC 15.2 H RBC 3.14 L Hgb 10.2 L Hct 31.4 L MCV Neutrophils # 14.4 H Lymphocytes # 0.5 L D-Dimer Carbon Dioxide BUN Glucose POC Glucose (mg/dL) 250 H Magnesium Procalcitonin - Diagnostic Findings CT scan - chest: image reviewed (As noted in HPI, no evidence of pneumonia minimal bibasilar atelectasis noted) Assessment and Plan Assessment: Impression: Acute on chronic hypoxic respiratory failure Acute exacerbation of COPD Severe advanced COPD FEV1 less than 30%. Known history of coronary artery disease Chronic hypoxic respiratory failure maintained on 5 L nasal cannula at home Severe aortic stenosis History of systolic congestive heart failure with ejection fraction of 45% Secondary pulmonary hypertension Ascending thoracic aortic aneurysm measuring 4.9 x 5 cm in size Recommendation: Continue present bronchodilators Continue Solu-Medrol Continue oxygen and titrate accordingly Resume home meds Anxiolytic for her anxiety BiPAP to be used as needed patient has BiPAP at bedside Lovenox for DVT prophylaxis Will continue to follow Time with Patient: Greater than 30
[2023-07-01 13:30] LABS: African American GFR (CKD) >90 (>60 ml/min/1.73 sqM); Anion Gap 5 mmol/L; Blood Urea Nitrogen 27 mg/dL (7-17); Carbon Dioxide 39 mmol/L (22-30); Chloride 94 mmol/L (98-107); Glucose 210 mg/dL (74-99); Non-African American GFR(CKD) >90 (>60 ml/min/1.73 sqM); Potassium 4.3 mmol/L (3.5-5.1); Sodium 138 mmol/L (137-145)
[2023-07-01 15:49] LABS: Glucose,Whole Blood 148 mg/dL (70-110)
[2023-07-01 20:18] LABS: Glucose,Whole Blood 178 mg/dL (70-110)
[2023-07-02 06:01] LABS: Glucose,Whole Blood 168 mg/dL (70-110)
[2023-07-02 09:01] LABS: African American GFR (CKD) >90 (>60 ml/min/1.73 sqM); Anion Gap 3 mmol/L; Blood Urea Nitrogen 33 mg/dL (7-17); Calcium 8.9 mg/dL (8.4-10.2); Carbon Dioxide 36 mmol/L (22-30); Chloride 102 mmol/L (98-107); Glucose 158 mg/dL (74-99); Non-African American GFR(CKD) >90 (>60 ml/min/1.73 sqM); Potassium 4.7 mmol/L (3.5-5.1); Sodium 141 mmol/L (137-145)
[2023-07-02 11:13] LABS: Glucose,Whole Blood 209 mg/dL (70-110)
--- NOTE | 2023-07-02 11:21 | P.PN ---
Subjective This is a pleasant 62 years old female with past medical history of multiple medical problems including COPD and chronic hypoxic respiratory failure on 5 L oxygen at home and she follows up with Dr. Collins for her COPD. Presents because of worsening dyspnea of 1 day duration associated with cough, no significant phlegm. No significant chest pain but she has some point tenderness below the right arm. Also of 1 day duration. She denies any other change in urine or bowel habits. No headache dizziness weakness or numbness. Currently patient was on BiPAP She denies current smoking alcohol or illicit drugs. She is afebrile. Labs showing leukocytosis of 17,000, hemoglobin 11, INR, BMP, liver enzymes are unremarkable proBNP 754. Influenza A and type B, RSV, SARS (coronavirus) are and detected EKG showing sinus tachycardia at 114 Chest x-ray slight bibasilar opacities per report Patient started on Zithromax and normal saline at 75 mL/h. 07/01/2023 Last night patient was more short of breath and her oxygen requirement went up from 7-8 and she had hard time breathing We ordered D-dimer which was elevated 0.82. We obtained CTA of the chest which I reviewed by myself showing no evidence of acute pulmonary embolism. Patient after that was placed on BiPAP and she felt better This morning she is still lethargic mildly confused and she still hypoxic requiring 8 L of oxygen via nasal cannula No chest pain no other new complaints. No diarrhea. She remains on IV Solu-Medrol 60 mg and Zithromax and normal saline 75 mL/h Continued on her home dose of aspirin and Plavix. Repeat labs still pending and we are going to monitor creatinine and white cell count and hemoglobin. 07/02/2023 . She is using the CPAP machine which belongs to her. Patient remains short of breath and tachypneic. She denies chest pain. No other new complaints. On exam she still has decreased air entry on both sides She remains on IV Solu-Medrol 60 mg and normal saline 75 mL and Zithromax Objective - Vital Signs Vital signs: Vital Signs Temp 97.9 F 07/02/23 08:29 Pulse 101 H 07/02/23 08:29 Resp 18 07/02/23 08:29 BP 150/77 07/02/23 08:29 Pulse Ox 92 L 07/02/23 08:29 FiO2 55 07/01/23 04:00 Intake & Output 07/01/23 07/02/23 07/02/23 17:59 06:59 18:59 Intake Total 240 Output Total Balance 240 Intake: Oral 240 Output: Urine Other: Voiding Method External Catheter # Voids - Exam GENERAL: The patient is alert and oriented x3, not in any acute distress. Well developed, well nourished. HEENT: Pupils are round and equally reacting to light. EOMI. No scleral icterus. No conjunctival pallor. Normocephalic, atraumatic. No pharyngeal erythema. No thyromegaly. CARDIOVASCULAR: S1 and S2 present. No murmurs, rubs, or gallops. -PULMONARY: Chest is donnell decreased air entry on both sides. No crackles. Mild scattered wheezing ABDOMEN: Soft, nontender, nondistended, normoactive bowel sounds. No palpable organomegaly. MUSCULOSKELETAL: No joint swelling or deformity. EXTREMITIES: No cyanosis, clubbing, or pedal edema. NEUROLOGICAL: Gross neurological examination did not reveal any focal deficits. SKIN: No rashes. no petechiae. - Labs CBC & Chem 7: 07/01/23 08:50 07/02/23 07:59 Labs: Abnormal Lab Results - Last 24 Hours (Table) 07/01/23 07/01/23 07/01/23 Range/Units 08:50 11:21 12:37 WBC 15.2 H (3.8-10.6) k/uL RBC 3.14 L (3.80-5.40) m/uL Hgb 10.2 L (11.4-16.0) gm/dL Hct 31.4 L (34.0-46.0) % Neutrophils # 14.4 H (1.3-7.7) k/uL Lymphocytes # 0.5 L (1.0-4.8) k/uL Chloride 94 L (98-107) mmol/L Carbon Dioxide 39 H (22-30) mmol/L BUN 27 H (7-17) mg/dL Glucose 210 H (74-99) mg/dL POC Glucose (mg/dL) 250 H (70-110) mg/dL 07/01/23 07/01/23 07/02/23 Range/Units 15:47 20:17 05:59 WBC (3.8-10.6) k/uL RBC (3.80-5.40) m/uL Hgb (11.4-16.0) gm/dL Hct (34.0-46.0) % Neutrophils # (1.3-7.7) k/uL Lymphocytes # (1.0-4.8) k/uL Chloride (98-107) mmol/L Carbon Dioxide (22-30) mmol/L BUN (7-17) mg/dL Glucose (74-99) mg/dL POC Glucose (mg/dL) 148 H 178 H 168 H (70-110) mg/dL 07/02/23 Range/Units 07:59 WBC (3.8-10.6) k/uL RBC (3.80-5.40) m/uL Hgb (11.4-16.0) gm/dL Hct (34.0-46.0) % Neutrophils # (1.3-7.7) k/uL Lymphocytes # (1.0-4.8) k/uL Chloride (98-107) mmol/L Carbon Dioxide 36 H (22-30) mmol/L BUN 33 H (7-17) mg/dL Glucose 158 H (74-99) mg/dL POC Glucose (mg/dL) (70-110) mg/dL Microbiology - Last 24 Hours (Table) 06/30/23 07:00 Blood Culture - Preliminary Blood 06/30/23 07:15 Blood Culture - Preliminary Blood Assessment and Plan Assessment: Acute COPD exacerbation Acute on chronic hypoxic respiratory failure Obesity with BMI of 38.6. History of coronary artery disease status post stent History of osteoarthritis Anxiety and depression, not an active issue Plan: Continue with Solu-Medrol Continue with Zithromax Patient is on gentle hydration normal saline Continue with her home dose of aspirin and Plavix Pulmonary consult Continue with BiPAP machine as needed Labs and medication were reviewed.. Continue same treatment. Continue with symptomatic treatment. Resume home medication. Monitor labs and vitals. DVT and GI prophylaxis. Further recommendations as per clinical course of the patient DVT prophylaxis: Subcutaneous heparin GI Prophylaxis: Pepcid PT/OT: Pending Prognosis is guarded
--- NOTE | 2023-07-02 13:58 | P.PN ---
Subjective Progress Note Date: 07/02/23 Principal diagnosis: Acute exacerbation of COPD This is a 62-year-old female with known history of severe COPD and chronic hypoxic respiratory failure, patient is normally maintained on 5 L nasal cannula at home, and she is on maximal therapy for her COPD. Patient was recently in the hospital, and she is now back again with similar symptoms of cough wheezing shortness of breath. No fever no chills no hemoptysis no chest pain. CT angiogram of the chest on admission showed no evidence of pulmonary embolism, no evidence of infiltrate, minimal atelectasis at the lung bases noted. CBC showed leukocytosis with WBC count 15.2 hemoglobin is 10.2. D-dimer was 0.82, however CT angiogram of the chest showed no evidence of pulmonary embolism, procalcitonin level is borderline 0.11 considering her COPD picture and her presentation, this consult was initiated. Patient is already on maximal therapy for her COPD, and I fully agree with the present treatment plan Patient was reevaluated today on 07/02/2023, patient is doing well, slightly improved, but not back to her baseline. Continues to have shortness of breath, intermittent cough and wheezing, remains on oxygen at9 L high flow, O2 saturation remains marginal at 91% labs today are basically unremarkable, blood sugar is 209 Objective - Vital Signs Vital signs: Vital Signs Temp 97.9 F 07/02/23 08:29 Pulse 98 07/02/23 11:45 Resp 18 07/02/23 11:29 BP 138/78 07/02/23 11:29 Pulse Ox 91 L 07/02/23 11:29 FiO2 55 07/01/23 04:00 Intake & Output 07/01/23 07/02/23 07/02/23 17:59 06:59 18:59 Intake Total 240 Output Total 600 Balance -360 Intake: Oral 240 Output: Urine 600 Other: Voiding Method External Catheter # Voids - Exam General: The patient is awake and alert, obese, in no distress, and does not appear acutely ill. Patient is however on 9 L high flow nasal cannula and O2 sats is 95% Skin: Skin is warm and dry and no rashes or lesions are noted. Eye: Pupils are equal, round and reactive to light, extra-ocular movements are intact; there is normal conjunctiva bilaterally. Ears, nose, mouth and throat: There are moist mucous membranes and no oral lesions. Neck: The neck is supple, there is no tenderness or JVD. Cardiovascular: There is a regular rate and rhythm. No murmur, rub or gallop is appreciated. Respiratory: Diminished breath sound bilaterally no crackles rhonchi or wheezes Gastrointestinal: Soft, non-distended, non-tender abdomen without masses or organomegaly noted. There is no rebound or guarding present. Bowel sounds are unremarkable. Back: There is no tenderness to palpation in the midline. There is no obvious deformity. Musculoskeletal: Normal ROM, no tenderness, There is no pedal edema. There is no calf tenderness or swelling. No cords were appreciated. Neurological: CN II-XII intact, Cranial nerves III through XII are intact. There are no obvious motor or sensory deficits. Coordination appears grossly intact. Speech is normal. Psychiatric: Cooperative, appropriate mood & affect, normal judgment. - Labs CBC & Chem 7: 07/01/23 08:50 07/02/23 07:59 Labs: Abnormal Lab Results - Last 24 Hours (Table) 07/01/23 07/01/23 07/01/23 Range/Units 12:37 15:47 20:17 Chloride 94 L (98-107) mmol/L Carbon Dioxide 39 H (22-30) mmol/L BUN 27 H (7-17) mg/dL Glucose 210 H (74-99) mg/dL POC Glucose (mg/dL) 148 H 178 H (70-110) mg/dL 07/02/23 07/02/23 07/02/23 Range/Units 05:59 07:59 11:11 Chloride (98-107) mmol/L Carbon Dioxide 36 H (22-30) mmol/L BUN 33 H (7-17) mg/dL Glucose 158 H (74-99) mg/dL POC Glucose (mg/dL) 168 H 209 H (70-110) mg/dL Microbiology - Last 24 Hours (Table) 06/30/23 07:00 Blood Culture - Preliminary Blood 06/30/23 07:15 Blood Culture - Preliminary Blood Assessment and Plan Assessment: Impression: Acute on chronic hypoxic respiratory failure Acute exacerbation of COPD Severe advanced COPD FEV1 less than 30%. Known history of coronary artery disease Chronic hypoxic respiratory failure maintained on 5 L nasal cannula at home Severe aortic stenosis History of systolic congestive heart failure with ejection fraction of 45% Secondary pulmonary hypertension Ascending thoracic aortic aneurysm measuring 4.9 x 5 cm in size Recommendation: Continue bronchodilators Continue Solu-Medrol Continue oxygen and titrate accordingly Resume home meds Anxiolytic for her anxiety BiPAP to be used as needed patient has BiPAP at bedside Lovenox for DVT prophylaxis Will continue to follow Time with Patient: Less than 30
[2023-07-02 15:43] LABS: Glucose,Whole Blood 340 mg/dL (70-110)
[2023-07-02 20:54] LABS: Glucose,Whole Blood 158 mg/dL (70-110)
[2023-07-03 06:27] LABS: Glucose,Whole Blood 152 mg/dL (70-110)
[2023-07-03 08:15] LABS: Basophils % (A) 0 %; Eosinophils % (A) 0 %; HCT 32.9 % (34.0-46.0); HGB 10.2 gm/dL (11.4-16.0); Hypochromasia Marked; Lymphocytes # (A) 0.6 k/uL (1.0-4.8); Lymphocytes % (A) 5 %; MCH 30.8 pg (25.0-35.0); MCHC 30.9 g/dL (31.0-37.0); MCV 99.7 fL (80.0-100.0); Mean Platelet Volume 7.8; Monocytes # (A) 0.6 k/uL (0-1.0); Monocytes % (A) 5 %; Neutrophils # (A) 10.3 k/uL (1.3-7.7); Neutrophils % (A) 89 %; Platelet Count 288 k/uL (150-450); RBC 3.31 m/uL (3.80-5.40); RDW 14.1 % (11.5-15.5); WBC 11.5 k/uL (3.8-10.6)
[2023-07-03 08:33] LABS: African American GFR (CKD) >90 (>60 ml/min/1.73 sqM); Anion Gap 1 mmol/L; Blood Urea Nitrogen 32 mg/dL (7-17); Calcium 8.8 mg/dL (8.4-10.2); Carbon Dioxide 38 mmol/L (22-30); Chloride 100 mmol/L (98-107); Glucose 146 mg/dL (74-99); Non-African American GFR(CKD) >90 (>60 ml/min/1.73 sqM); Potassium 4.2 mmol/L (3.5-5.1); Sodium 139 mmol/L (137-145)
[2023-07-03 11:30] LABS: Glucose,Whole Blood 178 mg/dL (70-110)
--- NOTE | 2023-07-03 13:08 | P.PN ---
Subjective Progress Note Date: 07/03/23 Principal diagnosis: Hypoxemic respiratory failure. This is a 62-year-old female with known history of severe COPD and chronic hypoxic respiratory failure, patient is normally maintained on 5 L nasal cannula at home, and she is on maximal therapy for her COPD. Patient was recently in the hospital, and she is now back again with similar symptoms of cough wheezing shortness of breath. No fever no chills no hemoptysis no chest pain. CT angiogram of the chest on admission showed no evidence of pulmonary embolism, no evidence of infiltrate, minimal atelectasis at the lung bases noted. CBC showed leukocytosis with WBC count 15.2 hemoglobin is 10.2. D-dimer was 0.82, however CT angiogram of the chest showed no evidence of pulmonary embolism, procalcitonin level is borderline 0.11 considering her COPD picture and her presentation, this consult was initiated. Patient is already on maximal therapy for her COPD, and I fully agree with the present treatment plan Patient was reevaluated today on 07/02/2023, patient is doing well, slightly improved, but not back to her baseline. Continues to have shortness of breath, intermittent cough and wheezing, remains on oxygen at9 L high flow, O2 saturation remains marginal at 91% labs today are basically unremarkable, blood sugar is 209 Progress note dated July 03, 2023. 62-year-old obese white female, seen today in room 360. Currently, the patient remains on oxygen by nasal cannula at 8 L. She is not receiving any IV fluids. She is not on any antibiotics. Typically at home, she uses 5 L by nasal cannula. Her is sitting at the bedside. Current laboratory data includes a white count 11.5, hemoglobin 10.2, hematocrit 32.9, and platelet count of 288,000. Sodium 139, potassium 4.2, chlorides 100, CO2 38, BUN 32, creatinine 0.59. Glucose is 146. Calcium is 8.8. Blood cultures are negative or pending. CT angiogram was negative for pulmonary embolism. There was no evidence of consolidation, pleural effusion, or pneumothorax. There was some atelectasis at the lung bases. Objective - Vital Signs Vital signs: Vital Signs Temp 97.7 F 07/03/23 08:46 Pulse 92 07/03/23 11:32 Resp 19 07/03/23 11:20 BP 138/80 07/03/23 11:20 Pulse Ox 99 07/03/23 11:20 FiO2 55 07/01/23 04:00 Intake & Output 07/02/23 07/03/23 07/03/23 18:59 06:59 18:59 Intake Total 240 120 Output Total 1300 500 Balance -1060 -500 120 Intake: Oral 240 120 Output: Urine 1300 500 Other: Voiding Method External Catheter External Catheter Bedside Commode # Voids 2 - Exam No acute distress, oriented 3. Currently on 8 L by nasal cannula. No overt respiratory distress, or audible wheezing. No use of accessory muscles. HEENT examination is grossly unremarkable. Mucous membranes are moist. No oral lesions. Neck supple. Full range of motion. No adenopathy thyromegaly or neck vein distention. Cardiovascular examination reveals regular rhythm rate. S1-S2 normal. No S3 or S4. No discernible murmur noted. Heart sounds are distant. Heart rate 79 bpm. Lungs reveal bilateral rhonchi and wheezes. Breath sounds are equal bila terally. Breath sounds are diminished throughout. No crackles. Saturations are 99% on 8 L. O2 was turned down to 7 L. Abdomen is, obese, with bowel sounds. No masses or tenderness. Extremities are intact. No cyanosis clubbing or edema. Skin is without rash or lesion. Neurologic examination is brief but nonfocal. - Labs CBC & Chem 7: 07/03/23 07:02 07/03/23 07:02 Labs: Abnormal Lab Results - Last 24 Hours (Table) 07/02/23 07/02/23 07/03/23 Range/Units 15:41 20:41 06:22 WBC (3.8-10.6) k/uL RBC (3.80-5.40) m/uL Hgb (11.4-16.0) gm/dL Hct (34.0-46.0) % MCHC (31.0-37.0) g/dL Neutrophils # (1.3-7.7) k/uL Lymphocytes # (1.0-4.8) k/uL Carbon Dioxide (22-30) mmol/L BUN (7-17) mg/dL Glucose (74-99) mg/dL POC Glucose (mg/dL) 340 H 158 H 152 H (70-110) mg/dL 07/03/23 07/03/23 07/03/23 Range/Units 07:02 07:02 11:24 WBC 11.5 H (3.8-10.6) k/uL RBC 3.31 L (3.80-5.40) m/uL Hgb 10.2 L (11.4-16.0) gm/dL Hct 32.9 L (34.0-46.0) % MCHC 30.9 L (31.0-37.0) g/dL Neutrophils # 10.3 H (1.3-7.7) k/uL Lymphocytes # 0.6 L (1.0-4.8) k/uL Carbon Dioxide 38 H (22-30) mmol/L BUN 32 H (7-17) mg/dL Glucose 146 H (74-99) mg/dL POC Glucose (mg/dL) 178 H (70-110) mg/dL Microbiology - Last 24 Hours (Table) 06/30/23 07:15 Blood Culture - Preliminary Blood 06/30/23 07:00 Blood Culture - Preliminary Blood Assessment and Plan Assessment: Acute on chronic hypoxemic respiratory failure. Acute exacerbation of COPD. Severe/stage IV COPD, with an FEV1 that is less than 30% of predicted. Known history of coronary artery disease. Chronic hypoxemic respiratory failure, currently on home O2 at 5 L by nasal cannula. Severe aortic stenosis. History of systolic congestive heart failure. Morbid obesity. Secondary pulmonary hypertension. Ascending thoracic aortic aneurysm, measuring 4.9 x 5 cm in size. Plan: Plan dated July 03, 2023. The patient is seen today in room 360. She continues on oxygen. Initially was at 8 L, it has been turned down to 7 L. Saturations are 100%. The patient continues on bronchodilators, and systemic corticosteroids. We will continue to follow make recommendations along the way. She continues on Lovenox for DVT prophylaxis. Labs, x-rays, and medications are reviewed. The patient is not quite ready for discharge as yet. We will continue to follow, make recommendations. Prognosis is certainly guarded. Time with Patient: Less than 30
[2023-07-03 16:53] LABS: Glucose,Whole Blood 252 mg/dL (70-110)
[2023-07-03 21:04] LABS: Glucose,Whole Blood 169 mg/dL (70-110)
[2023-07-04 06:28] LABS: Glucose,Whole Blood 162 mg/dL (70-110)
[2023-07-04 08:30] LABS: African American GFR (CKD) >90 (>60 ml/min/1.73 sqM); Blood Urea Nitrogen 31 mg/dL (7-17); Calcium 8.5 mg/dL (8.4-10.2); Chloride 96 mmol/L (98-107); Glucose 154 mg/dL (74-99); Non-African American GFR(CKD) >90 (>60 ml/min/1.73 sqM); Potassium 4.3 mmol/L (3.5-5.1); Sodium 141 mmol/L (137-145)
[2023-07-04 08:36] LABS: Anion Gap 2 mmol/L
[2023-07-04 09:17] LABS: Carbon Dioxide 43 mmol/L (22-30)
[2023-07-04 09:29] LABS: Basophils # (A) 0.1 k/uL (0-0.2); Basophils % (A) 1 %; Eosinophils # (A) 0.1 k/uL (0-0.7); Eosinophils % (A) 1 %; HCT 31.3 % (34.0-46.0); HGB 10.2 gm/dL (11.4-16.0); Hypochromasia Moderate; Lymphocytes # (A) 0.5 k/uL (1.0-4.8); Lymphocytes % (A) 5 %; MCH 31.9 pg (25.0-35.0); MCHC 32.7 g/dL (31.0-37.0); MCV 97.7 fL (80.0-100.0); Mean Platelet Volume 8.4; Monocytes # (A) 0.5 k/uL (0-1.0); Monocytes % (A) 5 %; Neutrophils # (A) 9.6 k/uL (1.3-7.7); Neutrophils % (A) 89 %; Platelet Count 247 k/uL (150-450); RDW 14.2 % (11.5-15.5); WBC 10.9 k/uL (3.8-10.6)
[2023-07-04 11:40] LABS: Glucose,Whole Blood 254 mg/dL (70-110)
[2023-07-04] MEDS: FUROSEMIDE 10 MG/ML 2 ML VIAL IV ONE (11:47)
--- NOTE | 2023-07-04 11:59 | P.PN ---
Subjective Progress Note Date: 07/04/23 Principal diagnosis: Hypoxemic respiratory failure. This is a 62-year-old female with known history of severe COPD and chronic hypoxic respiratory failure, patient is normally maintained on 5 L nasal cannula at home, and she is on maximal therapy for her COPD. Patient was recently in the hospital, and she is now back again with similar symptoms of cough wheezing shortness of breath. No fever no chills no hemoptysis no chest pain. CT angiogram of the chest on admission showed no evidence of pulmonary embolism, no evidence of infiltrate, minimal atelectasis at the lung bases noted. CBC showed leukocytosis with WBC count 15.2 hemoglobin is 10.2. D-dimer was 0.82, however CT angiogram of the chest showed no evidence of pulmonary embolism, procalcitonin level is borderline 0.11 considering her COPD picture and her presentation, this consult was initiated. Patient is already on maximal therapy for her COPD, and I fully agree with the present treatment plan Patient was reevaluated today on 07/02/2023, patient is doing well, slightly improved, but not back to her baseline. Continues to have shortness of breath, intermittent cough and wheezing, remains on oxygen at9 L high flow, O2 saturation remains marginal at 91% labs today are basically unremarkable, blood sugar is 209 Progress note dated July 03, 2023. 62-year-old obese white female, seen today in room 360. Currently, the patient remains on oxygen by nasal cannula at 8 L. She is not receiving any IV fluids. She is not on any antibiotics. Typically at home, she uses 5 L by nasal cannula. Her is sitting at the bedside. Current laboratory data includes a white count 11.5, hemoglobin 10.2, hematocrit 32.9, and platelet count of 288,000. Sodium 139, potassium 4.2, chlorides 100, CO2 38, BUN 32, creatinine 0.59. Glucose is 146. Calcium is 8.8. Blood cultures are negative or pending. CT angiogram was negative for pulmonary embolism. There was no evidence of consolidation, pleural effusion, or pneumothorax. There was some atelectasis at the lung bases. Progress note dated July 04, 2023. 62-year-old female admitted with a COPD exacerbation. The patient is currently seen today in room 360. She continues on oxygen at 6 L by nasal cannula. She is not receiving any IV fluids. She has improved, but not quite back to baseline. She does use oxygen at home, at 5 L/min, /. Current labs include a white count of 10.9, hemoglobin 10.2, hematocrit 31.3, and a platelet count of 247,000. Sodium 141, potassium 4.3, chlorides 96, CO2 43, BUN 31, creatinine 0.55. Glucose is 154. Calcium is 8.5. Blood cultures are currently negative. Objective - Vital Signs Vital signs: Vital Signs Temp 98.0 F 07/04/23 07:43 Pulse 76 07/04/23 11:38 Resp 20 07/04/23 11:38 BP 139/73 07/04/23 11:38 Pulse Ox 96 07/04/23 11:38 FiO2 55 07/01/23 04:00 Intake & Output 07/03/23 07/04/23 07/04/23 18:59 06:59 18:59 Intake Total 1203 Output Total 2049 Balance 1203 -2049 Intake: Oral 1203 Output: Urine 2049 Other: Voiding Method Bedside Commode Bedside Commode Bedside Commode # Voids 2 2 1 # Bowel Movements 1 - Exam No acute distress, oriented 3. Currently on 6 L by nasal cannula. No overt respiratory distress, or audible wheezing. No use of accessory muscles. HEENT examination is grossly unremarkable. Mucous membranes are moist. No oral lesions. Neck supple. Full range of motion. No adenopathy thyromegaly or neck vein distention. Cardiovascular examination reveals regular rhythm rate. S1-S2 normal. No S3 or S4. No discernible murmur noted. Heart sounds are distant. Heart rate 88 bpm. Lungs reveal bilateral rhonchi and wheezes. Breath sounds are equal bila terally. Breath sounds are diminished throughout. No crackles. Saturations are 96% on 6 L. Abdomen is, obese, with bowel sounds. No masses or tenderness. Extremities are intact. No cyanosis clubbing or edema. Skin is without rash or lesion. Neurologic examination is brief but nonfocal. - Labs CBC & Chem 7: 07/04/23 07:21 07/04/23 07:21 Labs: Abnormal Lab Results - Last 24 Hours (Table) 07/03/23 07/03/23 07/04/23 Range/Units 16:52 20:56 06:19 WBC (3.8-10.6) k/uL RBC (3.80-5.40) m/uL Hgb (11.4-16.0) gm/dL Hct (34.0-46.0) % Neutrophils # (1.3-7.7) k/uL Lymphocytes # (1.0-4.8) k/uL Chloride (98-107) mmol/L Carbon Dioxide (22-30) mmol/L BUN (7-17) mg/dL Glucose (74-99) mg/dL POC Glucose (mg/dL) 252 H 169 H 162 H (70-110) mg/dL 07/04/23 07/04/23 07/04/23 Range/Units 07:21 07:21 11:39 WBC 10.9 H (3.8-10.6) k/uL RBC 3.20 L (3.80-5.40) m/uL Hgb 10.2 L (11.4-16.0) gm/dL Hct 31.3 L (34.0-46.0) % Neutrophils # 9.6 H (1.3-7.7) k/uL Lymphocytes # 0.5 L (1.0-4.8) k/uL Chloride 96 L (98-107) mmol/L Carbon Dioxide 43 H* (22-30) mmol/L BUN 31 H (7-17) mg/dL Glucose 154 H (74-99) mg/dL POC Glucose (mg/dL) 254 H (70-110) mg/dL Microbiology - Last 24 Hours (Table) 06/30/23 07:15 Blood Culture - Preliminary Blood 06/30/23 07:00 Blood Culture - Preliminary Blood Assessment and Plan Assessment: Acute on chronic hypoxemic respiratory failure. Acute exacerbation of COPD. Severe/stage IV COPD, with an FEV1 that is less than 30% of predicted. Known history of coronary artery disease. Chronic hypoxemic respiratory failure, currently on home O2 at 5 L by nasal cannula. Severe aortic stenosis. History of systolic congestive heart failure. Morbid obesity. Secondary pulmonary hypertension. Ascending thoracic aortic aneurysm, measuring 4.9 x 5 cm in size. Plan: Plan dated July 03, 2023. The patient is seen today in room 360. She continues on oxygen. Initially was at 8 L, it has been turned down to 7 L. Saturations are 100%. The patient continues on bronchodilators, and systemic corticosteroids. We will continue to follow make recommendations along the way. She continues on Lovenox for DVT prophylaxis. Labs, x-rays, and medications are reviewed. The patient is not quite ready for discharge as yet. We will continue to follow, make recommendations. Prognosis is certainly guarded. Plan dated July 04, 2023. The patient is seen today in room 360. Her sitting at the bedside. She has been weaned to 6 L. She uses 5 L at home. She feels like her breathing is improved. The patient sees Dr. Osiris Ennis as a primary. She does not come to our office, and actually does not leave her house, and does not typically see doctors. She should be referred to a visiting physician. Labs, x-rays, and medications are all reviewed. Additional recommendations and suggestions are forthcoming. The patient will likely be ready for discharge in the next 24 to 48 hours. No additional recommendations at this time. Time with Patient: Less than 30
[2023-07-04 16:57] LABS: Glucose,Whole Blood 180 mg/dL (70-110)
[2023-07-04 21:08] LABS: Glucose,Whole Blood 199 mg/dL (70-110)
--- NOTE | 2023-07-04 22:15 | P.PN ---
Subjective Progress Note Date: 07/03/23 This is a pleasant 62 years old female with past medical history of multiple medical problems including COPD and chronic hypoxic respiratory failure on 5 L oxygen at home and she follows up with Dr. Collins for her COPD. Presents because of worsening dyspnea of 1 day duration associated with cough, no significant phlegm. No significant chest pain but she has some point tenderness below the right arm. Also of 1 day duration. She denies any other change in urine or bowel habits. No headache dizziness weakness or numbness. Currently patient was on BiPAP She denies current smoking alcohol or illicit drugs. She is afebrile. Labs showing leukocytosis of 17,000, hemoglobin 11, INR, BMP, liver enzymes are unremarkable proBNP 754. Influenza A and type B, RSV, SARS (coronavirus) are and detected EKG showing sinus tachycardia at 114 Chest x-ray slight bibasilar opacities per report Patient started on Zithromax and normal saline at 75 mL/h. 07/01/2023 Last night patient was more short of breath and her oxygen requirement went up from 7-8 and she had hard time breathing We ordered D-dimer which was elevated 0.82. We obtained CTA of the chest which I reviewed by myself showing no evidence of acute pulmonary embolism. Patient after that was placed on BiPAP and she felt better This morning she is still lethargic mildly confused and she still hypoxic requiring 8 L of oxygen via nasal cannula No chest pain no other new complaints. No diarrhea. She remains on IV Solu-Medrol 60 mg and Zithromax and normal saline 75 mL/h Continued on her home dose of aspirin and Plavix. Repeat labs still pending and we are going to monitor creatinine and white cell count and hemoglobin. 07/02/2023 . She is using the CPAP machine which belongs to her. Patient remains short of breath and tachypneic. She denies chest pain. No other new complaints. On exam she still has decreased air entry on both sides She remains on IV Solu-Medrol 60 mg and normal saline 75 mL and Zithromax 07/03/2023 Patient is currently sitting on the side of the bed. Awake alert and oriented x 3. Still requiring 8 L oxygen via nasal cannula. Patient is on 5 L oxygen via nasal cannula at home Otherwise patient is being continued on DuoNebs, Symbicort and IV Solu-Medrol 60 mg every 6 hourly Laboratory test showed WBC 11.5 hemoglobin 10.2 and platelets 288 Sodium 139 potassium 4.2 chloride 100, bicarb is 38 BUN 32 and creatinine 0.5 And blood sugar 146 and calcium 8.8. Current medications reviewed. Objective - Vital Signs Vital signs: Vital Signs Temp 97.7 F 07/03/23 08:46 Pulse 87 07/03/23 08:46 Resp 21 07/03/23 08:58 BP 146/77 07/03/23 08:46 Pulse Ox 100 07/03/23 08:46 FiO2 55 07/01/23 04:00 Intake & Output 07/02/23 07/03/23 07/03/23 18:59 06:59 18:59 Intake Total 240 120 Output Total 1300 500 Balance -1060 -500 120 Intake: Oral 240 120 Output: Urine 1300 500 Other: Voiding Method External Catheter External Catheter External Catheter - Exam - Exam GENERAL: The patient is alert and oriented x3, not in any acute distress. Well developed, well nourished. HEENT: Pupils are round and equally reacting to light. EOMI. No scleral icterus. No conjunctival pallor. Normocephalic, atraumatic. No pharyngeal erythema. No thyromegaly. CARDIOVASCULAR: S1 and S2 present. No murmurs, rubs, or gallops. -PULMONARY: Bibasilar diminished sounds.. No crackles. Mild scattered wheezing nonlabored breathing. ABDOMEN: Soft, nontender, nondistended, normoactive bowel sounds. No palpable organomegaly. MUSCULOSKELETAL: No joint swelling or deformity. EXTREMITIES: No cyanosis, clubbing, or pedal edema. NEUROLOGICAL: Gross neurological examination did not reveal any focal deficits. SKIN: No rashes. no petechiae. - Labs CBC & Chem 7: 07/04/23 07:21 07/04/23 07:21 Labs: Abnormal Lab Results - Last 24 Hours (Table) 07/02/23 07/02/23 07/02/23 Range/Units 11:11 15:41 20:41 WBC (3.8-10.6) k/uL RBC (3.80-5.40) m/uL Hgb (11.4-16.0) gm/dL Hct (34.0-46.0) % MCHC (31.0-37.0) g/dL Neutrophils # (1.3-7.7) k/uL Lymphocytes # (1.0-4.8) k/uL Carbon Dioxide (22-30) mmol/L BUN (7-17) mg/dL Glucose (74-99) mg/dL POC Glucose (mg/dL) 209 H 340 H 158 H (70-110) mg/dL 07/03/23 07/03/23 07/03/23 Range/Units 06:22 07:02 07:02 WBC 11.5 H (3.8-10.6) k/uL RBC 3.31 L (3.80-5.40) m/uL Hgb 10.2 L (11.4-16.0) gm/dL Hct 32.9 L (34.0-46.0) % MCHC 30.9 L (31.0-37.0) g/dL Neutrophils # 10.3 H (1.3-7.7) k/uL Lymphocytes # 0.6 L (1.0-4.8) k/uL Carbon Dioxide 38 H (22-30) mmol/L BUN 32 H (7-17) mg/dL Glucose 146 H (74-99) mg/dL POC Glucose (mg/dL) 152 H (70-110) mg/dL Microbiology - Last 24 Hours (Table) 06/30/23 07:15 Blood Culture - Preliminary Blood 06/30/23 07:00 Blood Culture - Preliminary Blood Assessment and Plan Assessment: Acute COPD exacerbation Acute on chronic hypoxic respiratory failure requiring 8 L oxygen via nasal cannula. Patient is on 5 L at baseline. Severe COPD Obesity with BMI of 38.6. History of coronary artery disease status post stent Severe aortic stenosis Chronic CHF with systolic dysfunction Secondary pulmonary hypertension Ascending thoracic aortic aneurysm measuring 4.9 x 5 cm in size History of osteoarthritis Anxiety and depression, not an active issue obesity with BMI 38.6 DVT prophylaxis with heparin subcu every 8. Plan: Continue with oxygen supplementation and titrate down to baseline. Continue with Solu-Medrol Completed azithromycin for 3 days. Continue DuoNebs and Symbicort. Continue with her home dose of aspirin and Plavix Continue with BiPAP machine as needed Pulmonology is on board. Labs and medication were reviewed.. DVT and GI prophylaxis. DVT prophylaxis: Subcutaneous heparin GI Prophylaxis: Pepcid PT/OT: Pending Prognosis is guarded Time with Patient: Greater than 30
--- NOTE | 2023-07-04 22:17 | P.PN ---
Subjective Progress Note Date: 07/04/23 This is a pleasant 62 years old female with past medical history of multiple medical problems including COPD and chronic hypoxic respiratory failure on 5 L oxygen at home and she follows up with Dr. Collins for her COPD. Presents because of worsening dyspnea of 1 day duration associated with cough, no significant phlegm. No significant chest pain but she has some point tenderness below the right arm. Also of 1 day duration. She denies any other change in urine or bowel habits. No headache dizziness weakness or numbness. Currently patient was on BiPAP She denies current smoking alcohol or illicit drugs. She is afebrile. Labs showing leukocytosis of 17,000, hemoglobin 11, INR, BMP, liver enzymes are unremarkable proBNP 754. Influenza A and type B, RSV, SARS (coronavirus) are and detected EKG showing sinus tachycardia at 114 Chest x-ray slight bibasilar opacities per report Patient started on Zithromax and normal saline at 75 mL/h. 07/01/2023 Last night patient was more short of breath and her oxygen requirement went up from 7-8 and she had hard time breathing We ordered D-dimer which was elevated 0.82. We obtained CTA of the chest which I reviewed by myself showing no evidence of acute pulmonary embolism. Patient after that was placed on BiPAP and she felt better This morning she is still lethargic mildly confused and she still hypoxic requiring 8 L of oxygen via nasal cannula No chest pain no other new complaints. No diarrhea. She remains on IV Solu-Medrol 60 mg and Zithromax and normal saline 75 mL/h Continued on her home dose of aspirin and Plavix. Repeat labs still pending and we are going to monitor creatinine and white cell count and hemoglobin. 07/02/2023 . She is using the CPAP machine which belongs to her. Patient remains short of breath and tachypneic. She denies chest pain. No other new complaints. On exam she still has decreased air entry on both sides She remains on IV Solu-Medrol 60 mg and normal saline 75 mL and Zithromax 07/03/2023 Patient is currently sitting on the side of the bed. Awake alert and oriented x 3. Still requiring 8 L oxygen via nasal cannula. Patient is on 5 L oxygen via nasal cannula at home Otherwise patient is being continued on DuoNebs, Symbicort and IV Solu-Medrol 60 mg every 6 hourly Laboratory test showed WBC 11.5 hemoglobin 10.2 and platelets 288 Sodium 139 potassium 4.2 chloride 100, bicarb is 38 BUN 32 and creatinine 0.5 And blood sugar 146 and calcium 8.8. 07/04/2023 Patient is currently sitting in the bed. Awake alert and oriented x 3. Still requiring oxygen at 8 L via nasal cannula. Still having shortness of breath and exertional dyspnea. Afebrile. Occasional cough without sputum production. No nausea vomiting or abdominal pain or diarrhea. Laboratory pressure WBC 10.9 hemoglobin 10.2 and platelets 247 Sodium 141 potassium 4.3 chloride 96 bicarb is 43 BUN 31 and creatinine 0.55 and blood sugar 155. And calcium 8.5. Pulmonary is on board. Patient is being continued on IV Solu-Medrol Symbicort and DuoNebs. Current medications reviewed. Objective - Vital Signs Vital signs: Vital Signs Temp 98.0 F 07/04/23 07:43 Pulse 96 07/04/23 15:58 Resp 20 07/04/23 15:58 BP 112/65 07/04/23 15:58 Pulse Ox 97 07/04/23 15:58 FiO2 55 07/01/23 04:00 Intake & Output 07/04/23 07/04/23 07/05/23 06:59 18:59 06:59 Output Total 2049 2099 Balance -2049 -2099 Output: Urine 2049 2099 Other: Voiding Method Bedside Commode Bedside Commode # Voids 2 1 # Bowel Movements 1 - Labs CBC & Chem 7: 07/04/23 07:21 07/04/23 07:21 Labs: Abnormal Lab Results - Last 24 Hours (Table) 07/03/23 07/04/23 07/04/23 Range/Units 20:56 06:19 07:21 WBC 10.9 H (3.8-10.6) k/uL RBC 3.20 L (3.80-5.40) m/uL Hgb 10.2 L (11.4-16.0) gm/dL Hct 31.3 L (34.0-46.0) % Neutrophils # 9.6 H (1.3-7.7) k/uL Lymphocytes # 0.5 L (1.0-4.8) k/uL Chloride (98-107) mmol/L Carbon Dioxide (22-30) mmol/L BUN (7-17) mg/dL Glucose (74-99) mg/dL POC Glucose (mg/dL) 169 H 162 H (70-110) mg/dL 07/04/23 07/04/23 07/04/23 Range/Units 07:21 11:39 16:55 WBC (3.8-10.6) k/uL RBC (3.80-5.40) m/uL Hgb (11.4-16.0) gm/dL Hct (34.0-46.0) % Neutrophils # (1.3-7.7) k/uL Lymphocytes # (1.0-4.8) k/uL Chloride 96 L (98-107) mmol/L Carbon Dioxide 43 H* (22-30) mmol/L BUN 31 H (7-17) mg/dL Glucose 154 H (74-99) mg/dL POC Glucose (mg/dL) 254 H 180 H (70-110) mg/dL Microbiology - Last 24 Hours (Table) 06/30/23 07:15 Blood Culture - Preliminary Blood 06/30/23 07:00 Blood Culture - Preliminary Blood Assessment and Plan Assessment: Acute COPD exacerbation Acute on chronic hypoxic respiratory failure requiring 8 L oxygen via nasal cannula. Patient is on 5 L at baseline. Severe COPD Obesity with BMI of 38.6. History of coronary artery disease status post stent Severe aortic stenosis Chronic CHF with systolic dysfunction Secondary pulmonary hypertension Ascending thoracic aortic aneurysm measuring 4.9 x 5 cm in size History of osteoarthritis Anxiety and depression, not an active issue obesity with BMI 38.6 DVT prophylaxis with heparin subcu every 8. Plan: Patient is still requiring at 8 L via nasal cannula. Completed azithromycin for 3 days. Continue with IV Solu-Medrol, DuoNebs and Symbicort. Continue with her home dose of aspirin and Plavix Continue with BiPAP machine as needed Pulmonology is on board. Labs and medication were reviewed.. DVT and GI prophylaxis. DVT prophylaxis: Subcutaneous heparin GI Prophylaxis: Pepcid PT/OT: Pending Prognosis is guarded Time with Patient: Greater than 30
[2023-07-04 23:23] LABS: Magnesium 2.5 mg/dL (1.6-2.3)
[2023-07-04] MEDS: ACETAMINOPHEN TAB 325 MG TAB PO PRN (23:49)
[2023-07-05 00:31] LABS: T4, Free (Free Thyroxine) 0.79 ng/dL (0.78-2.19)
[2023-07-05] MEDS: HEPARIN SODIUM,PORCINE 5,000 UNIT/ML 1 ML VIAL SQ SCH (00:56)
[2023-07-05 06:30] LABS: Glucose,Whole Blood 197 mg/dL (70-110)
[2023-07-05 08:12] VITALS: RESP 20
[2023-07-05 09:04] LABS: African American GFR (CKD) >90 (>60 ml/min/1.73 sqM); Blood Urea Nitrogen 32 mg/dL (7-17); Calcium 8.7 mg/dL (8.4-10.2); Chloride 89 mmol/L (98-107); Glucose 143 mg/dL (74-99); Non-African American GFR(CKD) >90 (>60 ml/min/1.73 sqM); Sodium 139 mmol/L (137-145)
[2023-07-05 09:10] LABS: Anion Gap 6 mmol/L
[2023-07-05 09:16] LABS: Carbon Dioxide 44 mmol/L (22-30)
--- NOTE | 2023-07-05 10:41 | P.PN ---
Subjective Progress Note Date: 07/05/23 Principal diagnosis: Hypoxemic respiratory failure. This is a 62-year-old female with known history of severe COPD and chronic hypoxic respiratory failure, patient is normally maintained on 5 L nasal cannula at home, and she is on maximal therapy for her COPD. Patient was recently in the hospital, and she is now back again with similar symptoms of cough wheezing shortness of breath. No fever no chills no hemoptysis no chest pain. CT angiogram of the chest on admission showed no evidence of pulmonary embolism, no evidence of infiltrate, minimal atelectasis at the lung bases noted. CBC showed leukocytosis with WBC count 15.2 hemoglobin is 10.2. D-dimer was 0.82, however CT angiogram of the chest showed no evidence of pulmonary embolism, procalcitonin level is borderline 0.11 considering her COPD picture and her presentation, this consult was initiated. Patient is already on maximal therapy for her COPD, and I fully agree with the present treatment plan Patient was reevaluated today on 07/02/2023, patient is doing well, slightly improved, but not back to her baseline. Continues to have shortness of breath, intermittent cough and wheezing, remains on oxygen at9 L high flow, O2 saturation remains marginal at 91% labs today are basically unremarkable, blood sugar is 209 Progress note dated July 03, 2023. 62-year-old obese white female, seen today in room 360. Currently, the patient remains on oxygen by nasal cannula at 8 L. She is not receiving any IV fluids. She is not on any antibiotics. Typically at home, she uses 5 L by nasal cannula. Her is sitting at the bedside. Current laboratory data includes a white count 11.5, hemoglobin 10.2, hematocrit 32.9, and platelet count of 288,000. Sodium 139, potassium 4.2, chlorides 100, CO2 38, BUN 32, creatinine 0.59. Glucose is 146. Calcium is 8.8. Blood cultures are negative or pending. CT angiogram was negative for pulmonary embolism. There was no evidence of consolidation, pleural effusion, or pneumothorax. There was some atelectasis at the lung bases. Progress note dated July 04, 2023. 62-year-old female admitted with a COPD exacerbation. The patient is currently seen today in room 360. She continues on oxygen at 6 L by nasal cannula. She is not receiving any IV fluids. She has improved, but not quite back to baseline. She does use oxygen at home, at 5 L/min, 14/11. Current labs include a white count of 10.9, hemoglobin 10.2, hematocrit 31.3, and a platelet count of 247,000. Sodium 141, potassium 4.3, chlorides 96, CO2 43, BUN 31, creatinine 0.55. Glucose is 154. Calcium is 8.5. Blood cultures are currently negative. Progress note dated July 05, 2023. 62-year-old female, seen today in room 360. The patient is currently on between 6 to 7 L of oxygen, by nasal cannula. She is not receiving any IV fluids. The patient is feeling much better, and would like to be discharged if possible. We told her, it would be up to her primary hospital doctor. Labs today include a sodium 139, potassium 4, chloride 89, CO2 44, BUN 32, creatinine 0.65. Glucose is 143. Calcium is 8.7. Blood cultures are negative. Objective - Vital Signs Vital signs: Vital Signs Temp 97.8 F 07/05/23 08:31 Pulse 66 07/05/23 08:22 Resp 20 07/05/23 08:05 BP 140/77 07/05/23 08:05 Pulse Ox 94 L 07/05/23 08:05 FiO2 55 07/01/23 04:00 Intake & Output 07/04/23 07/05/23 07/05/23 18:59 06:59 18:59 Intake Total 10 Output Total 2100 400 Balance -2100 -400 10 Intake: IV 10 Invasive Line 5 10 Output: Urine 2100 400 Other: Voiding Method Bedside Commode Bedside Commode # Voids 1 # Bowel Movements 1 - Exam No acute distress, oriented 3. Currently on 6 L by nasal cannula. No overt respiratory distress, or audible wheezing. No use of accessory muscles. HEENT examination is grossly unremarkable. Mucous membranes are moist. No oral lesions. Neck supple. Full range of motion. No adenopathy thyromegaly or neck vein distention. Cardiovascular examination reveals regular rhythm rate. S1-S2 normal. No S3 or S4. No discernible murmur noted. Heart sounds are distant. Heart rate 66 bpm. Lungs reveal bilateral rhonchi and wheezes. Breath sounds are equal bilaterally. Breath sounds are diminished throughout. No crackles. Saturations are 94% on 6 L. Abdomen is, obese, with bowel sounds. No masses or tenderness. Extremities are intact. No cyanosis clubbing or edema. Skin is without rash or lesion. Neurologic examination is brief but nonfocal. - Labs CBC & Chem 7: 07/04/23 07:21 07/05/23 07:48 Labs: Abnormal Lab Results - Last 24 Hours (Table) 07/04/23 07/04/23 07/04/23 Range/Units 11:39 16:55 21:06 Chloride (98-107) mmol/L Carbon Dioxide (22-30) mmol/L BUN (7-17) mg/dL Glucose (74-99) mg/dL POC Glucose (mg/dL) 254 H 180 H 199 H (70-110) mg/dL Magnesium (1.6-2.3) mg/dL TSH (0.465-4.680) mIU/L 07/04/23 07/05/23 07/05/23 Range/Units 22:27 06:18 07:48 Chloride 89 L (98-107) mmol/L Carbon Dioxide 44 H* (22-30) mmol/L BUN 32 H (7-17) mg/dL Glucose 143 H (74-99) mg/dL POC Glucose (mg/dL) 197 H (70-110) mg/dL Magnesium 2.5 H (1.6-2.3) mg/dL TSH 0.260 L (0.465-4.680) mIU/L Assessment and Plan Assessment: Acute on chronic hypoxemic respiratory failure. Acute exacerbation of COPD. Severe/stage IV COPD, with an FEV1 that is less than 30% of predicted. Known history of coronary artery disease. Chronic hypoxemic respiratory failure, currently on home O2 at 5 L by nasal kathy salome. Severe aortic stenosis. History of systolic congestive heart failure. Morbid obesity. Secondary pulmonary hypertension. Ascending thoracic aortic aneurysm, measuring 4.9 x 5 cm in size. Plan: Plan dated July 03, 2023. The patient is seen today in room 360. She continues on oxygen. Initially was at 8 L, it has been turned down to 7 L. Saturations are 100%. The patient continues on bronchodilators, and systemic corticosteroids. We will continue to follow make recommendations along the way. She continues on Lovenox for DVT prophylaxis. Labs, x-rays, and medications are reviewed. The patient is not quite ready for discharge as yet. We will continue to follow, make recommendations. Prognosis is certainly guarded. Plan dated July 04, 2023. The patient is seen today in room 360. Her sitting at the bedside. She has been weaned to 6 L. She uses 5 L at home. She feels like her breathing is improved. The patient sees Dr. Osiris Ennis as a primary. She does not come to our office, and actually does not leave her house, and does not typical ly see doctors. She should be referred to a visiting physician. Labs, x-rays, and medications are all reviewed. Additional recommendations and suggestions are forthcoming. The patient will likely be ready for discharge in the next 24 to 48 hours. No additional recommendations at this time. Plan dated July 05, 2023. The patient was seen today in room 360. The patient does not come to our o ffice, and rarely goes to her primary care provider. This is because she is unable to, given her current health situation. We recommended that she be referred to a visiting physician. That doctor, can make visits, at her house, and do lab work, x-rays, etc. The patient is back to her baseline in our opinion. She could be considered for discharge. Will leave that up to the primary service. No additional recommendations are made. Prognosis is guarded. Time with Patient: Less than 30
[2023-07-05 11:50] LABS: Glucose,Whole Blood 267 mg/dL (70-110)
[2023-07-05 13:25] VITALS: BP 124/78; PULSE 92; TEMP 98.2
--- NOTE | 2023-07-05 13:40 | P.CRDCN ---
History of Present Illness Consult date: 07/05/23 Reason for Consult (text): Runs of V. tach History of present illness: History of present illness: This is a 62-year-old female patient of Dr. Hinkle with past medical history of COPD, chronic hypoxic respiratory failure on home O2, severe aortic stenosis, non-ST elevated VT. We have been asked to evaluate the patient for run of ventricular tachycardia. Patient presented to the hospital on 06/29 with difficulty breathing, cough secondary to COPD exacerbation. She states she continues to have a cough and wheezing is a little bit better. She has quit smoking. She denies feeling any palpitations, no lightheadedness or dizziness. Patient was last seen in the office with Dr. Hinkle on 04/20/2022 and at that time was recommended to follow-up with the cardiac catheterization and DANNIELLE for evaluation of aortic stenosis but unfortunately, patient did not follow-up in the office. EKG sinus tachycardia with ventricular rate of 114 bpm, telemetry sinus rhythm with short run of V. tach on 07/03. Chest x-ray: Slight bibasilar opacities. CTA of the chest performed on 06/29 revealed no acute pulmonary embolism. Sodium 139, potassium 4, BUN 89, CO2 44. BUN 32 creatinine 0.65. TSH 0.260, free T40.79. Glucose 143. WBC 10.9, hemoglobin 10.2, platelet count 247. Home cardiac medications: Aspirin 81 mg daily, atorvastatin 40 mg at bedtime, Plavix and 5 mg daily, Farxiga 5 mg daily, Lasix 40 mg daily, lisinopril 30 mg daily, Toprol-XL 25 mg daily, Nitrostat as needed. Echocardiogram performed 11/20/2022 revealed EF 45%, RVSP 39, mild mitral regurgitation, severe aortic stenosis, mild tricuspid regurgitation. Review Of Systems: At the time of my exam: CONSTITUTIONAL: Denies fever or chills. HEENT: Denies blurred vision, vision changes, or eye pain. Denies hemoptysis CARDIOVASCULAR: Denies chest pain. Denies orthopnea. Denies PND. Denies palpitations RESPIRATORY: + chronic shortness of breath. + Cough. + Sputum production. + Wheeze. GASTROINTESTINAL: Denies abdominal pain. Denies nausea or vomiting. HEMATOLOGIC: Denies bleeding disorders. GENITOURINARY: Denies any blood in urine. SKIN: Denies pruitis. Denies rash. Physical examination: Gen: This is a 62-year-old female in no acute distress VS: reviewed HEENT: Head is atraumatic, normocephalic. Pupils equal, round. Sclerae is anicteric. NECK: Supple. No JVD. LUNGS: Scattered expiratory wheeze. No intercostal retractions. HEART: Regular rate and rhythm. 3/6 systolic murmur, right sternal border. ABDOMEN: Soft No tenderness. EXTREMITIES: No pedal edema. No calf tenderness. NEUROLOGICAL: Patient is awake, alert and oriented x3. Assessment: Nonsustained V. tach COPD exacerbation Severe aortic stenosis History of non-ST elevated VT, type II COPD Acute on chronic hypoxic respiratory failure Plan: Continue patient's home cardiac medications Increase frequency of Toprol-XL to 25 mg twice daily Further recommendations to follow based upon clinical course At time of discharge, patient to follow-up with Dr. Elizabeth regarding TAVR. Thank you kindly for this consultation. Nurse practitioner note has been reviewed, I agree with documented findings and plan of care. Patient was seen and examined. Past Medical History Past Medical History: Coronary Artery Disease (CAD), Chest Pain / Angina, COPD, Respiratory Disorder Additional Past Medical History / Comment(s): Chronic hypercapnic respiratory failure, home oxygen at 5L/NC ATC, tracheobronchitis, aortic valve stenosis, chronic low back pain, DJD History of Any Multi-Drug Resistant Organisms: None Reported Past Surgical History: Breast Surgery, Tubal Ligation Additional Past Surgical History / Comment(s): Bilateral breast reductions, bilateral cataract removals. Past Anesthesia/Blood Transfusion Reactions: No Reported Reaction Date of Last Stent Placement:: 04/2023 Past Psychological History: Anxiety, Depression Additional Psychological History / Comment(s): Pt resides with her spouse. She has home oxygen and a nebulizer. She chooses not to drive, her spouse drives. She had [facility] after last hospitalization but no longer coming to home. Smoking Status: Former smoker Past Alcohol Use History: None Reported Additional Past Alcohol Use History / Comment(s): Pt started smoking as a teen and quit within the last 5 years ago. She was a 2 ppd smoker. Past Drug Use History: None Reported - Past Family History Father History Unknown: Yes Mother Family Medical History: Congestive Heart Failure (CHF), Diabetes Mellitus Medications and Allergies Home Medications Medication Instructions Recorded Confirmed Type Albuterol Inhaler [Ventolin Hfa 2 puff INHALATION RT-Q4H PRN 04/09/22 06/30/23 History Inhaler] Atorvastatin [Lipitor] 40 mg PO HS 04/09/22 06/30/23 History Aspirin 81 mg PO DAILY 30 Days #30 tab 04/12/22 06/30/23 Rx Sertraline [Zoloft] 100 mg PO DAILY 06/15/22 06/30/23 History Budesonide/Formoterol Fumarate 2 puff INHALATION RT-BID 07/13/22 06/30/23 History [Symbicort 160-4.5 Mcg Inhaler] Ipratropium-Albuterol Nebulize 3 ml INHALATION RT-QID PRN 09/23/22 06/30/23 Hi story [Duoneb 0.5 mg-3 mg/3 ml Soln] Dapagliflozin Propanediol [Farxiga] 5 mg PO DAILY 11/19/22 06/30/23 History Yupelri 175mcg/3ml 175 mcg INHALATION RT-DAILY 11/19/22 06/30/23 History hydrOXYzine HCL [Atarax] 25 mg PO BID 11/19/22 06/30/23 History Tiotropium Walton [Spiriva 1 cap INHALATION RT-DAILY 04/19/23 06/30/23 History Handihaler] predniSONE 5 mg PO DAILY 04/19/23 06/30/23 History Clopidogrel [Plavix] 75 mg PO DAILY 30 Days #30 tab 04/26/23 06/30/23 Rx Metoprolol Succinate (ER) [Toprol 25 mg PO DAILY 30 Days #30 tab 04/26/23 06/30/23 Rx XL] Nitroglycerin Sl Tabs [Nitrostat] 0.4 mg SUBLINGUAL Q5M PRN #30 tab 04/26/23 06/30/23 Rx lisinopriL 30 mg PO DAILY 05/11/23 06/30/23 History Acetaminophen Tab [Tylenol] 650 mg PO Q4HR PRN tab 05/18/23 06/30/23 Rx Furosemide [Lasix] 40 mg PO DAILY #30 tab 05/18/23 06/30/23 Rx Ipratropium-Albuterol Nebulize 3 ml INHALATION RT-QID #100 each 05/18/23 06/30/23 Rx [Duoneb 0.5 mg-3 mg/3 ml Soln] Lidocaine 4% Patch 2 patch TOPICAL DAILY #30 patch 05/18/23 06/30/23 Rx Meloxicam [Mobic] 7.5 mg PO BID 06/30/23 06/30/23 History Allergies Allergy/AdvReac Type Severity Reaction Status Date / Time No Known Allergies Allergy Verified 06/30/23 07:09 Physical Exam Vitals: Vital Signs Temp Pulse Pulse Resp BP Pulse Ox 07/05/23 05:35 68 18 162/79 100 07/04/23 23:45 78 20 155/77 98 07/04/23 21:46 50 L 07/04/23 21:31 80 07/04/23 20:18 97.8 F 84 20 148/78 96 07/04/23 15:58 96 20 112/65 97 07/04/23 15:26 84 07/04/23 15:20 76 07/04/23 11:38 76 20 139/73 96 07/04/23 11:17 88 07/04/23 11:09 84 07/04/23 10:34 95 07/04/23 10:20 95 07/04/23 09:50 78 L 07/04/23 08:15 88 07/04/23 08:03 86 93 L Intake and Output 07/04/23 07/05/23 07/05/23 22:59 06:59 14:59 Output Total 2100 400 Balance -2100 -400 Output: Urine 2100 400 Other: Voiding Method Bedside Commode Bedside Commode Results 07/04/23 07:21 07/05/23 07:48 CBC 07/04/23 Range/Units 07:21 WBC 10.9 H (3.8-10.6) k/uL RBC 3.20 L (3.80-5.40) m/uL Hgb 10.2 L (11.4-16.0) gm/dL Hct 31.3 L (34.0-46.0) % Plt Count 247 (150-450) k/uL Comprehensive Metabolic Panel 07/04/23 Range/Units 07:21 Sodium 141 (137-145) mmol/L Potassium 4.3 (3.5-5.1) mmol/L Chloride 96 L (98-107) mmol/L Carbon Dioxide 43 H* (22-30) mmol/L BUN 31 H (7-17) mg/dL Creatinine 0.55 (0.52-1.04) mg/dL Glucose 154 H (74-99) mg/dL Calcium 8.5 (8.4-10.2) mg/dL Current Medications Generic Name Dose Route Start Last Admin Trade Name Freq PRN Reason Stop Dose Admin Acetaminophen 650 mg 06/30/23 07:39 07/04/23 23:49 Acetaminophen Tab 325 Mg Tab PO 650 mg Q4HR PRN Administration Fever and/or Mild Pain Albuterol/Ipratropium 3 ml 06/30/23 08:00 07/04/23 21:31 Ipratropium-Albuterol 3 Ml Neb INHALATION 3 ml RT-QID CHANTEL Administration Aspirin 81 mg 06/30/23 09:00 07/04/23 09:02 Aspirin 81 Mg PO 81 mg DAILY CHANTEL Administration Atorvastatin Calcium 40 mg 06/30/23 21:00 07/04/23 21:21 Atorvastatin 40 Mg Tab PO 40 mg HS CHANTEL Administration Budesonide/Formoterol Fumarate 2 puff 06/30/23 08:00 07/04/23 21:31 Symbicort 160-4.5 Mcg Inhaler INHALATION 2 puff RT-BID CHANTEL Administration Clopidogrel Bisulfate 75 mg 06/30/23 09:00 07/04/23 09:02 Clopidogrel 75 Mg Tab PO 75 mg DAILY CHANTEL Administration Dapagliflozin 5 mg 06/30/23 09:00 07/04/23 09:02 Dapagliflozin Propanediol 5 Mg Tablet PO 5 mg DAILY CHANTEL Administration Dextrose/Water 25 ml 07/01/23 11:30 Dextrose 50% Syringe 50 Ml IVP PER PROTOCOL PRN Hypoglycemia Protocol Dextrose/Water 50 ml 07/01/23 11:30 Dextrose 50% Syringe 50 Ml IVP PER PROTOCOL PRN Hypoglycemia Protocol Famotidine 20 mg 06/30/23 09:00 07/04/23 21:20 Famotidine 20 Mg/2 Ml Vial IV 20 mg Q12HR CHANTEL Administration Furosemide 40 mg 06/30/23 09:00 07/04/23 09:02 Furosemide 40 Mg Tab PO 40 mg DAILY CHANTEL Administration Heparin Sodium (Porcine) 5,000 unit 07/05/23 00:00 07/05/23 00:56 Heparin Sodium,Porcine 5,000 Unit/Ml 1 Ml Vial SQ Not Given Q8HR CHANTEL Hydroxyzine HCl 25 mg 06/30/23 07:39 Hydroxyzine Hcl 25 Mg Tab PO BID PRN Anxiety Sodium Chloride 1,000 mls @ 20 mls/hr 07/01/23 06:30 07/05/23 00:56 Saline 0.9% IV Not Given .Q24H CHANTEL Insulin Aspart 0 unit 07/01/23 12:30 07/05/23 06:42 Insulin Aspart (Novolog) 100 Unit/Ml Vial SQ 1 unit ACHS CHANTEL Administration Protocol Lidocaine 2 patch 06/30/23 09:00 07/04/23 09:02 Lidocaine 4% Patch TOPICAL 2 patch DAILY CHANTEL Administration Protocol Methylprednisolone Sodium Succinate 60 mg 06/30/23 12:00 07/05/23 06:42 Methylprednisolone Sod Succi 125 Mg/2 Ml Vial IV 60 mg Q6HR CHANTEL Administration Metoprolol Succinate 25 mg 06/30/23 09:00 07/04/23 09:02 Metoprolol Succinate (Er) 25 Mg Tab.Er.24h PO 25 mg DAILY CHANTEL Administration Naloxone HCl 0.2 mg 06/30/23 02:33 Naloxone 0.4 Mg/Ml 1 Ml Vial IVP Q2M PRN Opioid Reversal Sertraline HCl 100 mg 06/30/23 09:00 07/04/23 09:02 Sertraline 100 Mg Tab PO 100 mg DAILY CHANTEL Administration Intake and Output 07/04/23 07/05/23 07/05/23 22:59 06:59 14:59 Output Total 2100 400 Balance -2100 -400 Output: Urine 2100 400 Other: Voiding Method Bedside Commode Bedside Commode 07/04/23 07:21 07/04/23 07:21
[2023-07-05 13:59] VITALS: BMI 38.5
[2023-07-05] MEDS: predniSONE 50 MG TAB PO STA (15:06)
[2023-07-05] MEDS ORDERED: METOPROLOL SUCCINATE (ER) 25 MG TAB.ER.24H PO SCH (21:00)
== END 2023-07-05 15:25 | disposition home or self-care (01) | DRG 189 ==
LOC: EC 01:11 → 3SCARD 02:34 → INTOOBSV 02:35 → OBSVTOIN 02:35 → 3SCARD 19:59
PROVIDERS: ADMIT Hospitalist; ATTEND Hospitalist
PROC: 5A09357 Assistance with Respiratory Ventilation, Less than 24 Consecutive Hours, Continuous Positive Airway Pressure (ICD-10-PCS; principal; 2023-06-30)
DX: J96.21 Acute and chronic respiratory failure with hypoxia (principal); I50.22 Chronic systolic (congestive) heart failure; I47.20 Ventricular tachycardia, unspecified; J44.1 Chronic obstructive pulmonary disease with (acute) exacerbation; J98.11 Atelectasis; I27.29 Other secondary pulmonary hypertension; I11.0 Hypertensive heart disease with heart failure; I71.21 Aneurysm of the ascending aorta, without rupture; I35.0 Nonrheumatic aortic (valve) stenosis; F32.A Depression, unspecified; E66.01 Morbid (severe) obesity due to excess calories; Z68.38 Body mass index [BMI] 38.0-38.9, adult; J96.22 Acute and chronic respiratory failure with hypercapnia; I25.10 Atherosclerotic heart disease of native coronary artery without angina pectoris; F41.9 Anxiety disorder, unspecified; G89.29 Other chronic pain; M54.50 Low back pain, unspecified; M19.90 Unspecified osteoarthritis, unspecified site; I25.2 Old myocardial infarction; Z99.81 Dependence on supplemental oxygen; Z79.82 Long term (current) use of aspirin; Z79.51 Long term (current) use of inhaled steroids; Z79.84 Long term (current) use of oral hypoglycemic drugs; Z79.1 Long term (current) use of non-steroidal anti-inflammatories (NSAID); Z79.52 Long term (current) use of systemic steroids; Z79.02 Long term (current) use of antithrombotics/antiplatelets; Z79.899 Other long term (current) drug therapy; Z95.5 Presence of coronary angioplasty implant and graft; Z87.891 Personal history of nicotine dependence; Z71.3 Dietary counseling and surveillance
CPT/HCPCS: 36415; 71045; 71275; 80048; 80053; 83605; 83735; 83880; 84145; 84439; 84443; 85025; 85379; 85610; 85730; 87040; 87636; 93005; 94640; 94660; 94760; 96361; 96372; 96374; 96375; 96376; 99285

== ENCOUNTER 2023-07-24 04:59 | Inpatient (IN) | payer MEDICARE, OTHER ==
[2023-07-24 05:26] LABS: Basophils # (A) 0.1 k/uL (0-0.2); Basophils % (A) 1 %; Eosinophils # (A) 0.3 k/uL (0-0.7); Eosinophils % (A) 3 %; HCT 37.2 % (34.0-46.0); HGB 11.4 gm/dL (11.4-16.0); Hypochromasia Moderate; Lymphocytes # (A) 1.3 k/uL (1.0-4.8); Lymphocytes % (A) 13 %; MCH 30.4 pg (25.0-35.0); MCHC 30.6 g/dL (31.0-37.0); MCV 99.4 fL (80.0-100.0); Macrocytosis Slight; Mean Platelet Volume 7.8; Monocytes # (A) 0.6 k/uL (0-1.0); Monocytes % (A) 6 %; Neutrophils % (A) 76 %; Platelet Count 218 k/uL (150-450); RBC 3.74 m/uL (3.80-5.40); RDW 14.5 % (11.5-15.5); WBC 10.5 k/uL (3.8-10.6)
[2023-07-24] MEDS: MORPHINE SULFATE 4 MG/ML SYRINGE IVP STA (05:38)
[2023-07-24 05:50] LABS: ALT 20 U/L (4-34); AST 25 U/L (14-36); African American GFR (CKD) >90 (>60 ml/min/1.73 sqM); Albumin 3.8 g/dL (3.5-5.0); Alkaline Phosphatase 132 U/L (38-126); Anion Gap 5 mmol/L; Blood Urea Nitrogen 18 mg/dL (7-17); Carbon Dioxide 36 mmol/L (22-30); Chloride 95 mmol/L (98-107); Glucose 142 mg/dL (74-99); Lipase 80 U/L (23-300); Magnesium 2.1 mg/dL (1.6-2.3); Non-African American GFR(CKD) >90 (>60 ml/min/1.73 sqM); Potassium 4.5 mmol/L (3.5-5.1); Sodium 136 mmol/L (137-145); Total Bilirubin 0.5 mg/dL (0.2-1.3); Total Protein 6.5 g/dL (6.3-8.2)
--- NOTE | 2023-07-24 06:04 | ED ---
Chest Pain HPI - General Chief Complaint: Chest Pain Stated Complaint: Chest Pain Time Seen by Provider: 07/24/23 05:00 Source: EMS Mode of arrival: EMS - History of Present Illness Initial Comments: 63-year-old female with past medical history of chronic respiratory insufficiency, COPD on home oxygen who presents to the emergency department reporting chest pain. Reports the pain that is in the right side of her chest that radiates into her right arm. Pain started on . Patient does have history of coronary disease and had stents placed last year. She admits to associated shortness of breath. she denies lower extremity swelling. No reproduction of the pain with movement. Denies fevers chills or cough. No other alleviating, precipitating modifying factors - Related Data Home Medications Medication Instructions Recorded Confirmed Albuterol Inhaler [Ventolin Hfa 2 puff INHALATION RT-Q4H PRN 04/09/22 07/24/23 Inhaler] Atorvastatin [Lipitor] 40 mg PO HS 04/09/22 07/24/23 Sertraline [Zoloft] 100 mg PO DAILY 06/15/22 07/24/23 Budesonide/Formoterol Fumarate 2 puff INHALATION RT-BID 07/13/22 07/24/23 [Symbicort 160-4.5 Mcg Inhaler] Ipratropium-Albuterol Nebulize 3 ml INHALATION RT-QID PRN 09/23/22 07/24/23 [Duoneb 0.5 mg-3 mg/3 ml Soln] Dapagliflozin Propanediol [Farxiga] 5 mg PO DAILY 11/19/22 07/24/23 Yupelri 175mcg/3ml 175 mcg INHALATION RT-DAILY 11/19/22 07/24/23 hydrOXYzine HCL [Atarax] 25 mg PO BID 11/19/22 07/24/23 Tiotropium [place] [Spiriva 1 cap INHALATION RT-DAILY 04/19/23 07/24/23 Handihaler] predniSONE 5 mg PO DAILY 04/19/23 07/24/23 Meloxicam [Mobic] 7.5 mg PO BID 06/30/23 07/24/23 Nitroglycerin Sl Tabs [Nitrostat] 0.4 mg SL Q5M PRN 07/24/23 07/24/23 Previous Rx's Medication Instructions Recorded Aspirin 81 mg PO DAILY 30 Days #30 tab 04/12/22 Acetaminophen Tab [Tylenol] 650 mg PO Q4HR PRN tab 05/18/23 Furosemide [Lasix] 40 mg PO DAILY #30 tab 05/18/23 Ipratropium-Albuterol Nebulize 3 ml INHALATION RT-QID #100 each 05/18/23 [Duoneb 0.5 mg-3 mg/3 ml Soln] Metoprolol Succinate (ER) [Toprol 25 mg PO BID #30 tab 07/05/23 XL] lisinopriL [Prinivil] 10 mg PO DAILY 30 Days #30 tab 07/05/23 Allergies Allergy/AdvReac Type Severity Reaction Status Date / Time No Known Allergies Allergy Verified 07/24/23 07:14 Review of Systems ROS Statement: Those systems with pertinent positive or pertinent negative responses have been documented in the HPI. ROS Other: All systems not noted in ROS Statement are negative. Past Medical History Past Medical History: Coronary Artery Disease (CAD), Chest Pain / Angina, COPD, Respiratory Disorder Additional Past Medical History / Comment(s): Chronic hypercapnic respiratory failure, home oxygen at 5L/NC ATC, tracheobronchitis, aortic valve stenosis, chronic low back pain, DJD History of Any Multi-Drug Resistant Organisms: None Reported Past Surgical History: Breast Surgery, Tubal Ligation Additional Past Surgical History / Comment(s): Bilateral breast reductions, bilateral cataract removals. Past Anesthesia/Blood Transfusion Reactions: No Reported Reaction Date of Last Stent Placement:: 04/2023 Smoking Status: Former smoker Past Alcohol Use History: None Reported Past Drug Use History: None Reported - Past Family History Father History Unknown: Yes Mother Family Medical History: Congestive Heart Failure (CHF), Diabetes Mellitus General Exam General appearance: alert, in no apparent distress Head exam: Present: atraumatic, normocephalic, normal inspection Eye exam: Present: normal appearance, PERRL, EOMI. Absent: scleral icterus, conjunctival injection, periorbital swelling ENT exam: Present: normal exam, mucous membranes moist Neck exam: Present: normal inspection. Absent: tenderness, meningismus, lymphadenopathy Respiratory exam: Present: wheezes. Absent: respiratory distress, rales, rhonchi, stridor Cardiovascular Exam: Present: normal rhythm, tachycardia, normal heart sounds. Absent: systolic murmur, diastolic murmur, rubs, gallop, clicks GI/Abdominal exam: Present: soft, normal bowel sounds. Absent: distended, tenderness, guarding, rebound, rigid Extremities exam: Present: normal inspection, full ROM, normal capillary refill. Absent: tenderness, pedal edema, joint swelling, calf tenderness Back exam: Present: normal inspection Neurological exam: Present: alert, oriented X3, CN II-XII intact Psychiatric exam: Present: normal affect, normal mood Skin exam: Present: warm, dry, intact, normal color. Absent: rash Course Vital Signs 07/24/23 07/24/23 07/24/23 05:00 05:05 05:30 Temperature 97.8 F Pulse Rate 113 H 117 H Respiratory 20 22 22 Rate Blood Pressure 138/87 138/87 O2 Sat by Pulse 97 94 L Oximetry 07/24/23 07/24/23 07/24/23 06:00 07:00 07:53 Temperature Pulse Rate 103 H 103 H 103 H Respiratory 16 18 Rate Blood Pressure 132/70 123/64 O2 Sat by Pulse 95 95 Oximetry 07/24/23 07/24/23 07/24/23 07:58 08:02 09:00 Temperature Pulse Rate 101 H 102 H Respiratory 18 Rate Blood Pressure 99/59 O2 Sat by Pulse 96 91 L Oximetry 07/24/23 10:22 Temperature Pulse Rate 98 Respiratory 18 Rate Blood Pressure 88/41 O2 Sat by Pulse 97 Oximetry Chest Pain MDM - MDM Was pt. sent in by a medical professional or institution (, PA, WORKERS' COMPENSATION CLAIMS SUPERVISOR, urgent care, hospital, or retirement...) When possible be specific @ -No Did you speak to anyone other than the patient for history (EMS, parent, family, police, friend...)? What history was obtained from this source @ -Spoke with EMS for history Did you review nursing and triage notes (agree or disagree)? Why? @ -I reviewed and agree with nursing and triage notes Were old charts reviewed (outside hosp., previous admission, EMS record, old EKG, old radiological studies, urgent care reports/EKG's, retirement records)? Report findings @ -I reviewed patient's heart cath report from April Differential Diagnosis (chest pain, altered mental status, abdominal pain women, abdominal pain men, vaginal bleeding, weakness, fever, dyspnea, syncope, headache, dizziness, GI bleed, back pain, seizure, CVA, palpatations, mental health, musculoskeletal)? @ -Differential Chest Pain: Stable Angina, Unstable Angina, STEMI, NSTEMI Aortic Dissection, Pneumothorax, Musculoskeletal, Esophageal Spasm GERD, Cholecystitis, Pancreatitis, Zoster, this is not meant to be an all-inclusive list. EKG interpreted by me (3pts min.). @ -Yes and demonstrates sinus rhythm with a rate of 106. Parable 93. QRS 102. QTc of 364. No acute ST segment elevations or depressions X-rays interpreted by me (1pt min.). @ -Yes and demonstrates no acute findings CT interpreted by me (1pt min.). @ -None done U/S interpreted by me (1pt. min.). @ -None done What testing was considered but not performed or refused? (CT, X-rays, U/S, labs)? Why? @ -None What meds were considered but not given or refused? Why? @ -None Did you discuss the management of the patient with other professionals (professionals i.e. , PA, WORKERS' COMPENSATION CLAIMS SUPERVISOR, lab, RT, psych nurse, social worker masters, cutter operator tile, teacher, guest relations officer, case packer)? Give summary @ -Spoke with Dr. Tolliver for admission Was smoking cessation discussed for >3mins.? @ -No Was critical care preformed (if so, how long)? @ -No Were there social determinants of health that impacted care today? How? (Homelessness, low income, unemployed, alcoholism, drug addiction, transportation, low edu. Level, literacy, decrease access to med. care, nursing home, rehab)? @ -No Was there de-escalation of care discussed even if they declined (Discuss DNR or withdrawal of care, Hospice)? DNR status @ -No What co-morbidities impacted this encounter? (DM, HTN, Smoking, COPD, CAD, Cancer, CVA, ARF, Chemo, Hep., AIDS, mental health diagnosis, sleep apnea, morbid obesity)? @ -COPD on 5 L home O2, coronary artery disease Was patient admitted / discharged? Hospital course, mention meds given and route, prescriptions, significant lab abnormalities, going to OR and other pertinent info. @ -Upon arrival patient was placed into room 2. Thorough history and physical exam was performed. IV access was established. Laboratory studies were conducted. Chest x-ray was performed. Patient was given morphine for pain. Upon arrival patient continues to have pain. Her laboratory study results and imaging were discussed with her. I recommended admission due to her known history of coronary disease with active chest pain. Patient was agreeable to this. Patient was given aspirin and Nitropaste was applied to the chest. Patient awaiting transport to the floor in stable condition Undiagnosed new problem with uncertain prognosis? @ -Yes Drug Therapy requiring intensive monitoring for toxicity (Heparin, Nitro, Insulin, Cardizem)? @ -No Were any procedures done? @ -No Diagnosis/symptom? @ -Acute chest pain, history of coronary disease, chronic oxygen dependence Acute, or Chronic, or Acute on Chronic? @ -Acute, chronic, chronic Uncomplicated (without systemic symptoms) or Complicated (systemic symptoms)? @ -Complicated Side effects of treatment? @ -No Exacerbation, Progression, or Severe Exacerbation? @ -No Poses a threat to life or bodily function? How? (Chest pain, [place], [place], pneumonia, PE, COPD, DKA, ARF, appy, cholecystitis, CVA, Diverticulitis, Homicidal, Suicidal, threat to staff... and all critical care pts) @ -Yes as patient is reporting chest pain with possibility of acute coronary syndrome Disposition Clinical Impression: Elevated troponin, Chest pain Disposition: ADMITTED IP TO THIS [facility] Condition: Stable Is patient prescribed a controlled substance at d/c from ED?: No Time of Disposition: 06:41 Decision to Admit Reason: Admit from EC Decision Date: 07/24/23 Decision Time: 06:41
--- NOTE | 2023-07-24 06:13 | XR ---
EXAM: XR Chest, 2 Views CLINICAL HISTORY: Chest Pain TECHNIQUE: Frontal and lateral views of the chest. COMPARISON: June 30, 2023 FINDINGS: Lungs: Unremarkable. No infiltration, atelectasis or mass density. Pleural space: Unremarkable. No pneumothorax. No pleural fluid. Heart: Unremarkable. No cardiomegaly. Mediastinum: Unremarkable. Normal mediastinal contour. Bones/joints: Old right rib fractures. No acute bone abnormality. IMPRESSION: No acute findings in the chest.
[2023-07-24] MEDS ORDERED: NALOXONE 0.4 MG/ML 1 ML VIAL IV PRN (06:43)
[2023-07-24 06:54] LABS: INR 0.9 (<1.2)
[2023-07-24 06:55] LABS: Partial Thromboplastin Time 24.2 sec (22.0-30.0); Prothrombin Time 9.9 sec (10.0-12.5)
[2023-07-24] MEDS: HYDROmorphone 1 MG/ML 1 ML SYRINGE IVP STA (06:58)
[2023-07-24] MEDS ORDERED: HEPARIN SODIUM,PORCINE (1 ML) 2,500 UNIT in SODIUM CHLORIDE 0.9% 250 ML IRRIGATION PRN (07:00)
[2023-07-24] MEDS ORDERED: HEPARIN SODIUM,PORCINE 10,000 UNIT in SODIUM CHLORIDE 0.9% 1,000 ML IRRIGATION PRN (07:00)
[2023-07-24] MEDS: ASPIRIN 81 MG PO STA (07:01)
[2023-07-24] MEDS: NITROGLYCERIN OINT 1 INCH/GM PACKET TOPICAL STA (07:01)
[2023-07-24] MEDS ORDERED: DEXTROSE 50% SYRINGE 50 ML IVP PRN ×2 (07:34)
[2023-07-24] MEDS ORDERED: NITROGLYCERIN SL TABS 0.4 MG TAB SUBLINGUAL PRN ×2 (07:35→08:55)
--- NOTE | 2023-07-24 07:42 | P.HPIM ---
History of Present Illness This is a pleasant 62 years old female with past medical history of multiple medical problems including COPD and chronic hypoxic respiratory failure on 5 L oxygen at home and she follows up with Dr. MACARIO for her COPD. Other medical problems including aortic stenosis status post TAVR, coronary artery disease s/p stent and depression and anxiety. Patient presents because of pain in her right shoulder radiating to her right arm and right chest for a few days since , 110/10 in severity, no history of trauma or fall. Pain described as nonspecific with no precipitating or relieving factors. She denies dyspnea she has dry cough. She is using 5 L of oxygen at home. No change in urine or bowel habits. No headache dizziness weakness or numbness. She denies current smoking alcohol or illicit drugs Patient is hemodynamically stable, afebrile She has unremarkable CBC, INR, BMP, liver enzymes, lipase Troponin is elevated 0.04 Chest x-ray is negative for acute process EKG showing atrial tachycardia with short SC interval but no significant ST-T changes. Review of Systems Review of systems CONSTITUTIONAL: No fever, no malaise, no fatigue. HEENT: No recent visual problems or hearing problems. Denied any sore throat. CARDIOVASCULAR: No orthopnea, PND, no palpitations, no syncope. -PULMONARY: No chest wall tenderness, no hemoptysis. GASTROINTESTINAL: No diarrhea, no nausea, no vomiting, no abdominal pain. Normoactive bowel sounds. NEUROLOGICAL: No headaches, no weakness, no numbness. HEMATOLOGICAL: Denies any bleeding or petechiae. GENITOURINARY: Denies any burning micturition, frequency, or urgency. MUSCULOSKELETAL/RHEUMATOLOGICAL: Denies any joint pain, swelling, or any muscle pain. ENDOCRINE: Denies any polyuria or polydipsia. Past Medical History Past Medical History: Coronary Artery Disease (CAD), Chest Pain / Angina, COPD, Respiratory Disorder Additional Past Medical History / Comment(s): Chronic hypercapnic respiratory failure, home oxygen at 5L/[place] ATC, tracheobronchitis, aortic valve stenosis, chronic low back pain, DJD History of Any Multi-Drug Resistant Organisms: None Reported Past Surgical History: Breast Surgery, Tubal Ligation Additional Past Surgical History / Comment(s): Bilateral breast reductions, bilateral cataract removals. Past Anesthesia/Blood Transfusion Reactions: No Reported Reaction Date of Last Stent Placement:: 04/2023 Smoking Status: Former smoker Past Alcohol Use History: None Reported Past Drug Use History: None Reported - Past Family History Father History Unknown: Yes Mother Family Medical History: Congestive Heart Failure (CHF), Diabetes Mellitus Medications and Allergies Home Medications Medication Instructions Recorded Confirmed Type Albuterol Inhaler [Ventolin Hfa 2 puff INHALATION RT-Q4H PRN 04/09/22 07/24/23 History Inhaler] Atorvastatin [Lipitor] 40 mg PO HS 04/09/22 07/24/23 History Aspirin 81 mg PO DAILY 30 Days #30 tab 04/12/22 07/24/23 Rx Sertraline [Zoloft] 100 mg PO DAILY 06/15/22 07/24/23 History Budesonide/Formoterol Fumarate 2 puff INHALATION RT-BID 07/13/22 07/24/23 History [Symbicort 160-4.5 Mcg Inhaler] Ipratropium-Albuterol Nebulize 3 ml INHALATION RT-QID PRN 09/23/22 07/24/23 History [Duoneb 0.5 mg-3 mg/3 ml Soln] Dapagliflozin Propanediol [Farxiga] 5 mg PO DAILY 11/19/22 07/24/23 History Yupelri 175mcg/3ml 175 mcg INHALATION RT-DAILY 11/19/22 07/24/23 History hydrOXYzine HCL [Atarax] 25 mg PO BID 11/19/22 07/24/23 History Tiotropium [place] [Spiriva 1 cap INHALATION RT-DAILY 04/19/23 07/24/23 History Handihaler] predniSONE 5 mg PO DAILY 04/19/23 07/24/23 History Acetaminophen Tab [Tylenol] 650 mg PO Q4HR PRN tab 05/18/23 07/24/23 Rx Furosemide [Lasix] 40 mg PO DAILY #30 tab 05/18/23 07/24/23 Rx Ipratropium-Albuterol Nebulize 3 ml INHALATION RT-QID #100 each 05/18/23 07/24/23 Rx [Duoneb 0.5 mg-3 mg/3 ml Soln] Meloxicam [Mobic] 7.5 mg PO BID 06/30/23 07/24/23 History Metoprolol Succinate (ER) [Toprol 25 mg PO BID #30 tab 07/05/23 07/24/23 Rx XL] lisinopriL [Prinivil] 10 mg PO DAILY 30 Days #30 tab 07/05/23 07/24/23 Rx Nitroglycerin Sl Tabs [Nitrostat] 0.4 mg SL Q5M PRN 07/24/23 07/24/23 History Allergies Allergy/AdvReac Type Severity Reaction Status Date / Time No Known Allergies Allergy Verified 07/24/23 07:14 Physical Exam Vitals: Vital Signs Temp Pulse Resp BP Pulse Ox 07/24/23 07:00 103 H 18 123/64 95 07/24/23 06:00 103 H 16 132/70 95 07/24/23 05:30 22 07/24/23 05:05 117 H 22 138/87 94 L 07/24/23 05:00 97.8 F 113 H 20 138/87 97 Intake and Output 07/23/23 07/24/23 07/24/23 22:59 06:59 14:59 Other: Weight 90.718 kg -GENERAL: The patient is alert and oriented x3, not in any acute distress. Well developed, well nourished. Obese HEENT: Pupils are round and equally reacting to light. EOMI. No scleral icterus. No conjunctival pallor. Normocephalic, atraumatic. No pharyngeal erythema. No thyromegaly. CARDIOVASCULAR: S1 and S2 present. No murmurs, rubs, or gallops. -PULMONARY: Decreased air entry on both sides, no wheezing , no crackles. ABDOMEN: Soft, nontender, nondistended, normoactive bowel sounds. No palpable organomegaly. MUSCULOSKELETAL: No joint swelling or deformity. EXTREMITIES: No cyanosis, clubbing, or pedal edema. NEUROLOGICAL: Gross neurological examination did not reveal any focal deficits. SKIN: No rashes. no petechiae. Results CBC & Chem 7: 07/24/23 05:17 07/24/23 05:17 Labs: Abnormal Lab Results - Last 24 Hours (Table) 07/24/23 07/24/23 07/24/23 Range/Units 05:17 05:17 05:17 RBC 3.74 L (3.80-5.40) m/uL MCHC 30.6 L (31.0-37.0) g/dL Neutrophils # 8.0 H (1.3-7.7) k/uL PT (10.0-12.5) sec Sodium 136 L (137-145) mmol/L Chloride 95 L (98-107) mmol/L Carbon Dioxide 36 H (22-30) mmol/L BUN 18 H (7-17) mg/dL Creatinine 0.49 L (0.52-1.04) mg/dL Glucose 142 H (74-99) mg/dL Alkaline Phosphatase 132 H (38-126) U/L Troponin I 0.043 H* (0.000-0.034) ng/mL 07/24/23 Range/Units 06:15 RBC (3.80-5.40) m/uL MCHC (31.0-37.0) g/dL Neutrophils # (1.3-7.7) k/uL PT 9.9 L (10.0-12.5) sec Sodium (137-145) mmol/L Chloride (98-107) mmol/L Carbon Dioxide (22-30) mmol/L BUN (7-17) mg/dL Creatinine (0.52-1.04) mg/dL Glucose (74-99) mg/dL Alkaline Phosphatase (38-126) U/L Troponin I (0.000-0.034) ng/mL Assessment and Plan Assessment: Right shoulder pain/chest pain with mildly elevated troponin, rule out cardiac causes/NSTEMI Acute COPD exacerbation Mildly acute on chronic hypoxic respiratory failure Atrial tachycardia with short SC interval Coronary artery disease s/p stent History of arctic stenosis s/p TAVR Obesity with BMI of 36.6 History of depression and anxiety, no acute process. Plan: Continue with aspirin Cardiology consult IV Solu-Medrol 40 mg Continue breathing treatment and bronchodilator Labs and medication were reviewed.. Continue same treatment. Continue with symptomatic treatment. Resume home medication. Monitor labs and vitals. DVT and GI prophylaxis. Further recommendations as per clinical course of the patient DVT prophylaxis: Subcutaneous heparin GI Prophylaxis: Pepcid Prognosis is guarded
[2023-07-24] MEDS: IPRATROPIUM 0.5 MG/2.5 ML NEBU INHALATION SCH (07:53)
[2023-07-24] MEDS: SYMBICORT 160-4.5 MCG INHALER INHALATION SCH (07:53)
[2023-07-24] MEDS: lisinopriL 10 MG TAB PO SCH (08:50)
[2023-07-24] MEDS: methylPREDNISolone SOD SUCCI 40 MG/ML 1 ML VIAL IV SCH (08:50)
[2023-07-24] MEDS: METOPROLOL SUCCINATE (ER) 25 MG TAB.ER.24H PO SCH (08:50)
[2023-07-24] MEDS: FUROSEMIDE 40 MG TAB PO SCH (08:51)
[2023-07-24] MEDS: SERTRALINE 100 MG TAB PO SCH (08:53)
[2023-07-24] MEDS: FAMOTIDINE 20 MG/2 ML VIAL IV SCH (08:53)
[2023-07-24] MEDS: DAPAGLIFLOZIN PROPANEDIOL 5 MG TABLET PO SCH (08:54)
[2023-07-24] MEDS: hydrOXYzine HCL 25 MG TAB PO SCH (08:54)
[2023-07-24] MEDS: HEPARIN SODIUM,PORCINE 5,000 UNIT/ML 1 ML VIAL SQ SCH (08:55)
[2023-07-24] MEDS ORDERED: ALPRAZolam 0.25 MG TAB PO PRN (08:55)
[2023-07-24] MEDS ORDERED: HEPARIN SODIUM 1,000 UN/ML (10ML VL) IV PRN (08:55)
[2023-07-24] MEDS: ATORVASTATIN 80 MG TAB PO STA (09:33)
[2023-07-24] MEDS: SODIUM CHLORIDE 0.9% 1,000 ML in EMPTY BAG 1 BAG IV SCH (09:34)
[2023-07-24 09:35] LABS: Basophils # (A) 0.1 k/uL (0-0.2); Basophils % (A) 1 %; Eosinophils # (A) 0.3 k/uL (0-0.7); Eosinophils % (A) 2 %; HCT 35.4 % (34.0-46.0); HGB 10.7 gm/dL (11.4-16.0); Hypochromasia Moderate; Lymphocytes # (A) 1.5 k/uL (1.0-4.8); Lymphocytes % (A) 13 %; MCH 30.4 pg (25.0-35.0); MCHC 30.3 g/dL (31.0-37.0); MCV 100.4 fL (80.0-100.0); Macrocytosis Slight; Mean Platelet Volume 7.4; Monocytes # (A) 0.7 k/uL (0-1.0); Monocytes % (A) 6 %; Neutrophils # (A) 9.2 k/uL (1.3-7.7); Neutrophils % (A) 77 %; Platelet Count 203 k/uL (150-450); RBC 3.53 m/uL (3.80-5.40); RDW 14.1 % (11.5-15.5)
[2023-07-24] MEDS: HEPARIN SODIUM 1,000 UN/ML (10ML VL) IV ONE (09:36)
[2023-07-24] MEDS: HEPARIN SOD,PORK IN 0.45% NACL 25,000 UNIT in 0.45% NACL 1 250ML.BAG IV SCH (09:37)
[2023-07-24] MEDS: ASPIRIN 325 MG TAB PO STA (09:38)
[2023-07-24 09:46] LABS: INR 0.9 (<1.2); Partial Thromboplastin Time 23.9 sec (22.0-30.0); Prothrombin Time 9.8 sec (10.0-12.5)
[2023-07-24] MEDS ORDERED: VERAPAMIL 2.5 MG/ML 2 ML AMP ONE (10:22)
[2023-07-24] MEDS ORDERED: LIDOCAINE 1% INJ 10MG/ML (20 ML MDV) ONE (10:23)
[2023-07-24] MEDS ORDERED: fentaNYL (PF) 50 MCG/ML 2 ML AMP ONE (10:23)
[2023-07-24] MEDS ORDERED: HEPARIN SODIUM 1,000 UN/ML (10ML VL) ONE (10:23)
--- NOTE | 2023-07-24 10:36 | P.CRDCN ---
History of Present Illness History of present illness: HISTORY OF PRESENT ILLNESS: This is a 63-year-old female with a past medical history significant for coronary artery disease, COPD on home oxygen, bicuspid aortic valve with severe stenosis, hypertension, hyperlipidemia, and former nicotine dependence. Patient follows in the office with Dr. Hinkle. We have been asked to see the patient in consultation for chest pain. Patient examined at the bedside in the emergency room. Patient's is present. Patient states over the past couple days she has been having right arm pain. She states the pain goes into her shoulder. She states it is worse with movement. The pain is also worse with palpation of her right arm. Her states he has been putting Biofreeze on her arm which has helped the pain but did not completely take it away. She currently denies any chest pain or pressure. She reports chronic shortness of breath. Denies any dizziness or lightheadedness. It is noted that the patient underwent cardiac catheterization in March 2023 with PCI of the proximal RCA. Patient apparently has been referred to the TAVR clinic multiple times. However the patient's says that she refuses to leave the house due to shortness of breath so she will not go to any appointments. He does report that she has a portable oxygen tank but she is too short of breath to follow-up for any doctors appointments. DIAGNOSTICS: - EKG reveals sinus mechanism with no signs of acute ischemia. - Chest xray negative for acute process. - Laboratory data: WBC 12.0. Hemoglobin 10.7. Platelet count 203. Sodium 136. Potassium 4.5. BUN 18. Creatinine 0.49. Troponin 0.043. 0.097. - Current home cardiac medications include lisinopril 10 mg daily, metoprolol succinate 25 mg twice a day, Lasix 40 mg daily, Farxiga 5 mg daily, Lipitor 40 mg at night, aspirin 81 mg daily. - Most recent echocardiogram obtained in October 2022 revealed ejection fraction 45%, mild pulmonary hypertension, mild MR, severe aortic stenosis with a peak gradient of 69 mmHg and a mean gradient of 46 mmHg, mild TR - Cardiac catheterization history: March 2023 with PCI of the proximal RCA REVIEW OF SYSTEMS: At the time of my exam: CONSTITUTIONAL: Denies fever or chills. HEENT: Denies blurred vision, vision changes, or eye pain. Denies hemoptysis CARDIOVASCULAR: Denies chest pain. Denies orthopnea. Denies PND. Denies palpitations RESPIRATORY: Denies shortness of breath. GASTROINTESTINAL: Denies abdominal pain. Denies nausea or vomiting. HEMATOLOGIC: Denies bleeding disorders. GENITOURINARY: Denies any blood in urine. SKIN: Denies pruitis. Denies rash. PHYSICAL EXAM: VITAL SIGNS: Reviewed. GENERAL: Well-developed in no acute distress. HEENT: Head is normocephalic. Pupils are equal, round. Sclerae anicteric. Mucous membranes of the mouth are moist. Neck supple. No JVD or thyromegaly LUNGS: Respirations even and unlabored. Lungs with expiratory wheezing noted throughout HEART: Mildly tachycardic. Regular rate and rhythm. S1 and S2 heard. Systolic murmur noted. ABDOMEN: Soft. Nondistended. Nontender. EXTREMITIES: Normal range of motion. No clubbing or cyanosis. Peripheral pulses intact. No lower extremity edema NEUROLOGIC: Awake and alert. Oriented x 3. ASSESSMENT: Right arm pain, appears musculoskeletal Non-STEMI Coronary artery disease with previous PCI, most recently March 2023 with PCI of the proximal RCA Ischemic cardiomyopathy, ejection fraction 45% Severe aortic stenosis Mild pulmonary hypertension Hypertension Hyperlipidemia COPD Chronic hypoxic respiratory failure on home oxygen Former nicotine dependence PLAN: Obtain 2D echo to assess cardiac structure and function Begin IV heparin Resume home cardiac medications Decrease lisinopril to 5 mg daily as patient's blood pressure is running on the low side this morning with a systolic in the 90s Patient to undergo cardiac catheterization today with Dr. Hinkle Patient needs evaluation for TAVR. Inpatient versus outpatient. However, patient is unable to follow up outpatient for any doctors appointment as her states she is too short of breath to leave the house. Patient may not be a good candidate for valvular surgery if she is not able to be compliant with outpatient follow up appointments Further recommendations pending patient course Nurse practitioner note has been reviewed by physician. Signing provider agrees with the documented findings, assessment, and plan of care documented by SHEETER MACHINE OPERATOR as a scribe. Past Medical History Past Medical History: Coronary Artery Disease (CAD), Chest Pain / Angina, COPD, Respiratory Disorder Additional Past Medical History / Comment(s): Chronic hypercapnic respiratory failure, home oxygen at 5L/NC ATC, tracheobronchitis, aortic valve stenosis, chronic low back pain, DJD History of Any Multi-Drug Resistant Organisms: None Reported Past Surgical History: Breast Surgery, Tubal Ligation Additional Past Surgical History / Comment(s): Bilateral breast reductions, bilateral cataract removals. Past Anesthesia/Blood Transfusion Reactions: No Reported Reaction Date of Last Stent Placement:: 04/2023 Smoking Status: Former smoker Past Alcohol Use History: None Reported Past Drug Use History: None Reported - Past Family History Father History Unknown: Yes Mother Family Medical History: Congestive Heart Failure (CHF), Diabetes Mellitus Medications and Allergies Home Medications Medication Instructions Recorded Confirmed Type Albuterol Inhaler [Ventolin Hfa 2 puff INHALATION RT-Q4H PRN 04/09/22 07/24/23 History Inhaler] Atorvastatin [Lipitor] 40 mg PO HS 04/09/22 07/24/23 History Aspirin 81 mg PO DAILY 30 Days #30 tab 04/12/22 07/24/23 Rx Sertraline [Zoloft] 100 mg PO DAILY 06/15/22 07/24/23 History Budesonide/Formoterol Fumarate 2 puff INHALATION RT-BID 07/13/22 07/24/23 History [Symbicort 160-4.5 Mcg Inhaler] Ipratropium-Albuterol Nebulize 3 ml INHALATION RT-QID PRN 09/23/22 07/24/23 History [Duoneb 0.5 mg-3 mg/3 ml Soln] Dapagliflozin Propanediol [Farxiga] 5 mg PO DAILY 11/19/22 07/24/23 History Yupelri 175mcg/3ml 175 mcg INHALATION RT-DAILY 11/19/22 07/24/23 History hydrOXYzine HCL [Atarax] 25 mg PO BID 11/19/22 07/24/23 History Tiotropium [place] [Spiriva 1 cap INHALATION RT-DAILY 04/19/23 07/24/23 History Handihaler] predniSONE 5 mg PO DAILY 04/19/23 07/24/23 History Acetaminophen Tab [Tylenol] 650 mg PO Q4HR PRN tab 05/18/23 07/24/23 Rx Furosemide [Lasix] 40 mg PO DAILY #30 tab 05/18/23 07/24/23 Rx Ipratropium-Albuterol Nebulize 3 ml INHALATION RT-QID #100 each 05/18/23 07/24/23 Rx [Duoneb 0.5 mg-3 mg/3 ml Soln] Meloxicam [Mobic] 7.5 mg PO BID 06/30/23 07/24/23 History Metoprolol Succinate (ER) [Toprol 25 mg PO BID #30 tab 07/05/23 07/24/23 Rx XL] lisinopriL [Prinivil] 10 mg PO DAILY 30 Days #30 tab 07/05/23 07/24/23 Rx Nitroglycerin Sl Tabs [Nitrostat] 0.4 mg SL Q5M PRN 07/24/23 07/24/23 History Allergies Allergy/AdvReac Type Severity Reaction Status Date / Time No Known Allergies Allergy Verified 07/24/23 07:14 Physical Exam Vitals: Vital Signs Temp Pulse Resp BP Pulse Ox 07/24/23 09:00 102 H 18 99/59 91 L 07/24/23 08:02 101 H 07/24/23 07:58 96 07/24/23 07:53 103 H 07/24/23 07:00 103 H 18 123/64 95 07/24/23 06:00 103 H 16 132/70 95 07/24/23 05:30 22 07/24/23 05:05 117 H 22 138/87 94 L 07/24/23 05:00 97.8 F 113 H 20 138/87 97 Intake and Output 07/23/23 07/24/23 07/24/23 22:59 06:59 14:59 Other: Weight 90.718 kg Results 07/24/23 09:16 07/24/23 05:17 Cardiac Enzymes 07/24/23 07/24/23 07/24/23 Range/Units 05:17 05:17 09:16 AST 25 (14-36) U/L Troponin I 0.043 H* 0.097 H* (0.000-0.034) ng/mL Coagulation 07/24/23 07/24/23 Range/Units 06:15 09:16 PT 9.9 L 9.8 L (10.0-12.5) sec APTT 24.2 23.9 (22.0-30.0) sec CBC 07/24/23 07/24/23 Range/Units 05:17 09:16 WBC 10.5 12.0 H (3.8-10.6) k/uL RBC 3.74 L 3.53 L (3.80-5.40) m/uL Hgb 11.4 10.7 L (11.4-16.0) gm/dL Hct 37.2 35.4 (34.0-46.0) % Plt Count 218 203 (150-450) k/uL Comprehensive Metabolic Panel 07/24/23 Range/Units 05:17 Sodium 136 L (137-145) mmol/L Potassium 4.5 (3.5-5.1) mmol/L Chloride 95 L (98-107) mmol/L Carbon Dioxide 36 H (22-30) mmol/L BUN 18 H (7-17) mg/dL Creatinine 0.49 L (0.52-1.04) mg/dL Glucose 142 H (74-99) mg/dL Calcium 9.0 (8.4-10.2) mg/dL AST 25 (14-36) U/L ALT 20 (4-34) U/L Alkaline Phosphatase 132 H (38-126) U/L Total Protein 6.5 (6.3-8.2) g/dL Albumin 3.8 (3.5-5.0) g/dL Current Medications Generic Name Dose Route Start Last Admin Trade Name Freq PRN Reason Stop Dose Admin Acetaminophen 650 mg 07/24/23 07:35 Acetaminophen Tab 325 Mg Tab PO Q4HR PRN Fever and/or Mild Pain Albuterol/Ipratropium 3 ml 07/24/23 07:34 Ipratropium-Albuterol 3 Ml Neb INHALATION RT-QID PRN Shortness Of Breath Or Wheezing Alprazolam 0.25 mg 07/24/23 08:55 Alprazolam 0.25 Mg Tab PO Q6HR PRN Mild Anxiety Alprazolam 0.5 mg 07/24/23 08:55 Alprazolam 0.5 Mg Tab PO Q6HR PRN Moderate Anxiety Aspirin 81 mg 07/25/23 09:00 Aspirin 81 Mg PO DAILY [facility] Atorvastatin Calcium 40 mg 07/24/23 21:00 Atorvastatin 40 Mg Tab PO HS [facility] Budesonide/Formoterol Fumarate 2 puff 07/24/23 08:00 07/24/23 07:53 Symbicort 160-4.5 Mcg Inhaler INHALATION 2 puff RT-BID [facility] Administration Dapagliflozin 5 mg 07/24/23 09:00 07/24/23 08:54 Dapagliflozin Propanediol 5 Mg Tablet PO 5 mg DAILY [facility] Administration Dextrose/Water 25 ml 07/24/23 07:34 Dextrose 50% Syringe 50 Ml IVP PER PROTOCOL PRN Hypoglycemia Protocol Dextrose/Water 50 ml 07/24/23 07:34 Dextrose 50% Syringe 50 Ml IVP PER PROTOCOL PRN Hypoglycemia Protocol Famotidine 20 mg 07/24/23 09:00 07/24/23 08:53 Famotidine 20 Mg/2 Ml Vial IV 20 mg Q12HR [facility] Administration Furosemide 40 mg 07/24/23 09:00 07/24/23 08:51 Furosemide 40 Mg Tab PO 40 mg DAILY [facility] Administration Heparin Sodium (Porcine) 0 unit 07/24/23 08:55 Heparin Sodium 1,000 Un/Ml (10ml Vl) IV PER PROTOCOL PRN Low PTT Protocol Hydroxyzine HCl 25 mg 07/24/23 09:00 07/24/23 08:54 Hydroxyzine Hcl 25 Mg Tab PO 25 mg BID [facility] Administration Heparin Sodium/Sodium Chloride 250 mls @ 9.979 mls/hr 07/24/23 09:00 07/24/23 09:37 25,000 unit/ Sodium Chloride IV 11 units/kg/hr .Q24H [facility] 9.979 mls/hr Administration Protocol 11 UNITS/KG/HR Heparin Sodium (Porcine) 10, 1,001 mls @ 999 mls/hr 07/24/23 07:00 000 unit/ Sodium Chloride IRRIGATION 07/24/23 23:00 ONCE PRN INTRA-OP Heparin Sodium (Porcine) 2,500 250.5 mls @ 250 mls/hr 07/24/23 07:00 unit/ Sodium Chloride IRRIGATION 07/24/23 23:00 ONCE PRN INTRA-OP Sodium Chloride 1,000 ml/ IV 1,000 mls @ 90.718 mls/hr 07/24/23 09:00 07/24/23 09:34 Solution IV 90.718 mls/hr .Q11H2M [facility] Administration 1 ML/KG/HR Insulin Aspart 0 unit 07/24/23 12:30 Insulin Aspart (Novolog) 100 Unit/Ml Vial SQ ACHS [facility] Protocol Ipratropium [place] 0.5 mg 07/24/23 08:00 07/24/23 07:53 Ipratropium 0.5 Mg/2.5 Ml Nebu INHALATION 0.5 mg RT-QID [facility] Administration Lisinopril 10 mg 07/24/23 09:00 07/24/23 08:55 Lisinopril 10 Mg Tab PO Not Given DAILY [facility] Methylprednisolone Sodium Succinate 40 mg 07/24/23 08:00 07/24/23 08:50 Methylprednisolone Sod Succi 40 Mg/Ml 1 Ml Vial IV 40 mg Q8HR [facility] Administration Metoprolol Succinate 25 mg 07/24/23 09:00 07/24/23 08:55 Metoprolol Succinate (Er) 25 Mg Tab.Er.24h PO Not Given BID [facility] Morphine Sulfate 4 mg 07/24/23 06:43 Morphine Sulfate 4 Mg/Ml Syringe IV Q4HR PRN Severe Pain (Scale 7 to 10) Naloxone HCl 0.2 mg 07/24/23 06:43 Naloxone 0.4 Mg/Ml 1 Ml Vial IV Q2M PRN Opioid Reversal Nitroglycerin 0.4 mg 07/24/23 07:35 Nitroglycerin Sl Tabs 0.4 Mg Tab SUBLINGUAL Q5M PRN Chest Pain Nitroglycerin 0.4 mg 07/24/23 08:55 Nitroglycerin Sl Tabs 0.4 Mg Tab SUBLINGUAL Q5M PRN Chest Pain Sertraline HCl 100 mg 07/24/23 09:00 07/24/23 08:53 Sertraline 100 Mg Tab PO 100 mg DAILY [facility] Administration Intake and Output 07/23/23 07/24/23 07/24/23 22:59 06:59 14:59 Other: Weight 90.718 kg 07/24/23 09:16 07/24/23 05:17
[2023-07-24] MEDS: SODIUM CHLORIDE 0.9% 1,000 ML IV ONE (10:54)
[2023-07-24] MEDS: MIDAZOLAM 2 MG/2 ML VIAL IVP ONE (10:54)
[2023-07-24] MEDS: LIDOCAINE 1% INJ 10MG/ML (20 ML MDV) SQ ONE (10:54)
[2023-07-24] MEDS: VERAPAMIL SYRINGE (5 MG/10 ML) INTRAARTER ONE (10:56)
[2023-07-24] MEDS: HEPARIN SODIUM 1,000 UN/ML (10ML VL) IVP ONE (11:01)
[2023-07-24] MEDS: IOPAMIDOL-370 100ML BTL INJ ONE (11:07)
[2023-07-24 11:25] LABS: Glucose,Whole Blood 147 mg/dL (70-110)
[2023-07-24] MEDS: INSULIN ASPART (NovoLOG) 100 UNIT/ML VIAL SQ SCH (11:34)
--- NOTE | 2023-07-24 13:50 | P.GSCN ---
History of Present Illness Consult date: 07/24/23 Reason for Consult: Severe aortic stenosis Requesting physician: Paulette Marquez History of present illness: This is a 63-year-old female who follows outpatient with Dr. Ennis for primary care and Dr. Hinkle for cardiology. She has a previous medical history of coronary artery disease with myocardial infarction and previous PCI, ischemic cardiomyopathy with EF 45%, severe bicuspid aortic stenosis, hypertension, hyperlipidemia, aortic aneurysmal dilatation 5 cm, end-stage COPD with chronic hypoxic respiratory failure on home oxygen, and previous tobacco dependence. This young lady was scheduled in May for pre-TAVR workup, and was to present to the structural heart clinic June 25 for consideration for TAVR. Unfortunately she did not show for her workup or her valve clinic, her states that she refuses to leave the house for any appointments due to her shortness of breath. She has been admitted to the hospital repeatedly over the last couple of years due to shortness of breath, chest pain, COPD exacerbations. She again presented to [facility] emergency room this admission for right-sided chest pain with radiation to her right arm associated with shortness of breath. EKG demonstrated sinus rhythm without ischemic changes. Troponins were elevated, 0.043 and 0.097. She was admitted for observation and taken to the [facility] this morning by Dr. Hinkle with no evidence of new coronary disease. Consultation was placed to cardiothoracic surgery for TAVR workup. Review of Systems Review of systems was completed and was negative except as noted - Cardiovascular Reports chest pain, Reports dyspnea on exertion, Reports shortness of breath Past Medical History Past Medical History: Coronary Artery Disease (CAD), Chest Pain / Angina, COPD, Myocardial Infarction (NM), Respiratory Disorder Additional Past Medical History / Comment(s): Chronic hypercapnic respiratory failure, home oxygen at 5L/[place] ATC, tracheobronchitis, severe bicuspid aortic valve stenosis, chronic low back pain, DJD History of Any Multi-Drug Resistant Organisms: None Reported Past Surgical History: Breast Surgery, Heart Catheterization With Stent, Tubal Ligation Additional Past Surgical History / Comment(s): Bilateral breast reductions, bilateral cataract removals. Past Anesthesia/Blood Transfusion Reactions: No Reported Reaction Date of Last Stent Placement:: 04/2023 Smoking Status: Former smoker Past Alcohol Use History: None Reported Past Drug Use History: None Reported - Past Family History Father History Unknown: Yes Mother Family Medical History: Congestive Heart Failure (CHF), Diabetes Mellitus Medications and Allergies Home Medications Medication Instructions Recorded Confirmed Type Albuterol Inhaler [Ventolin Hfa 2 puff INHALATION RT-Q4H PRN 04/09/22 07/24/23 History Inhaler] Atorvastatin [Lipitor] 40 mg PO HS 04/09/22 07/24/23 History Aspirin 81 mg PO DAILY 30 Days #30 tab 04/12/22 07/24/23 Rx Sertraline [Zoloft] 100 mg PO DAILY 06/15/22 07/24/23 History Budesonide/Formoterol Fumarate 2 puff INHALATION RT-BID 07/13/22 07/24/23 History [Symbicort 160-4.5 Mcg Inhaler] Ipratropium-Albuterol Nebulize 3 ml INHALATION RT-QID PRN 09/23/22 07/24/23 History [Duoneb 0.5 mg-3 mg/3 ml Soln] Dapagliflozin Propanediol [Farxiga] 5 mg PO DAILY 11/19/22 07/24/23 History Yupelri 175mcg/3ml 175 mcg INHALATION RT-DAILY 11/19/22 07/24/23 History hydrOXYzine HCL [Atarax] 25 mg PO BID 11/19/22 07/24/23 History Tiotropium [place] [Spiriva 1 cap INHALATION RT-DAILY 04/19/23 07/24/23 History Handihaler] predniSONE 5 mg PO DAILY 04/19/23 07/24/23 History Acetaminophen Tab [Tylenol] 650 mg PO Q4HR PRN tab 05/18/23 07/24/23 Rx Furosemide [Lasix] 40 mg PO DAILY #30 tab 05/18/23 07/24/23 Rx Ipratropium-Albuterol Nebulize 3 ml INHALATION RT-QID #100 each 05/18/23 07/24/23 Rx [Duoneb 0.5 mg-3 mg/3 ml Soln] Meloxicam [Mobic] 7.5 mg PO BID 06/30/23 07/24/23 History Metoprolol Succinate (ER) [Toprol 25 mg PO BID #30 tab 07/05/23 07/24/23 Rx XL] lisinopriL [Prinivil] 10 mg PO DAILY 30 Days #30 tab 07/05/23 07/24/23 Rx Nitroglycerin Sl Tabs [Nitrostat] 0.4 mg SL Q5M PRN 07/24/23 07/24/23 History Allergies Allergy/AdvReac Type Severity Reaction Status Date / Time No Known Allergies Allergy Verified 07/24/23 07:14 Surgical - Exam Vital Signs Temp Pulse Resp BP Pulse Ox 97.8 F 113 H 20 138/87 97 07/24/23 05:00 07/24/23 05:00 07/24/23 05:00 07/24/23 05:00 07/24/23 05:00 CONSTITUTIONAL: Drowsy, appears comfortable, cooperative, no pain, no acute distress EYES: Pupils equal, round, reactive to light, normal ocular movement ENT: Moist mucous membranes without oral lesions present NECK: No masses, no bruits, trachea midline RESPIRATORY: Lungs sounds very diminished bilaterally, faint expiratory wheezes present. Respirations even, nonlabored. Currently on 2 L nasal cannula with oxygen saturation 95%. Strong productive cough. No chest wall deformities. No clubbing or cyanosis present CARDIOVASCULAR: S1 present, S2 barely audible, systolic murmur present. Regular rate and rhythm, sinus rhythm on telemetry. Palpable peripheral pulses bilaterally. Trace bilateral lower extremity edema present. No calf pain or tenderness noted GASTROINTESTINAL: Abdomen soft, nontender, nondistended, obese without masses or organomegaly noted. There is no rebound or guarding present. Active bowel sounds present 4 quadrants. GENITOURINARY: Deferred INTEGUMENTARY: Skin is warm and dry with evidence of good perfusion. NEUROLOGIC: Cranial nerves II through XII intact, normal coordination, no obvious motor or sensory deficits, speech is normal MUSKULOSKELETAL: Able to move all extremities, strength equal bilaterally, normal posture PSYCHIATRIC: Drowsy but oriented to person place and time Results - Labs 07/28/23 05:20 07/28/23 05:20 Abnormal Lab Results - Last 24 Hours (Table) 07/24/23 07/24/23 07/24/23 Range/Units 05:17 05:17 05:17 WBC (3.8-10.6) k/uL RBC 3.74 L (3.80-5.40) m/uL Hgb (11.4-16.0) gm/dL MCV (80.0-100.0) fL MCHC 30.6 L (31.0-37.0) g/dL Neutrophils # 8.0 H (1.3-7.7) k/uL PT (10.0-12.5) sec Sodium 136 L (137-145) mmol/L Chloride 95 L (98-107) mmol/L Carbon Dioxide 36 H (22-30) mmol/L BUN 18 H (7-17) mg/dL Creatinine 0.49 L (0.52-1.04) mg/dL Glucose 142 H (74-99) mg/dL POC Glucose (mg/dL) (70-110) mg/dL Alkaline Phosphatase 132 H (38-126) U/L Troponin I 0.043 H* (0.000-0.034) ng/mL 07/24/23 07/24/23 07/24/23 Range/Units 06:15 09:16 09:16 WBC 12.0 H (3.8-10.6) k/uL RBC 3.53 L (3.80-5.40) m/uL Hgb 10.7 L (11.4-16.0) gm/dL MCV 100.4 H (80.0-100.0) fL MCHC 30.3 L (31.0-37.0) g/dL Neutrophils # 9.2 H (1.3-7.7) k/uL PT 9.9 L (10.0-12.5) sec Sodium (137-145) mmol/L Chloride (98-107) mmol/L Carbon Dioxide (22-30) mmol/L BUN (7-17) mg/dL Creatinine (0.52-1.04) mg/dL Glucose (74-99) mg/dL POC Glucose (mg/dL) (70-110) mg/dL Alkaline Phosphatase (38-126) U/L Troponin I 0.097 H* (0.000-0.034) ng/mL 07/24/23 07/24/23 Range/Units 09:16 11:23 WBC (3.8-10.6) k/uL RBC (3.80-5.40) m/uL Hgb (11.4-16.0) gm/dL MCV (80.0-100.0) fL MCHC (31.0-37.0) g/dL Neutrophils # (1.3-7.7) k/uL PT 9.8 L (10.0-12.5) sec Sodium (137-145) mmol/L Chloride (98-107) mmol/L Carbon Dioxide (22-30) mmol/L BUN (7-17) mg/dL Creatinine (0.52-1.04) mg/dL Glucose (74-99) mg/dL POC Glucose (mg/dL) 147 H (70-110) mg/dL Alkaline Phosphatase (38-126) U/L Troponin I (0.000-0.034) ng/mL Diabetes panel 07/24/23 Range/Units 05:17 Sodium 136 L (137-145) mmol/L Potassium 4.5 (3.5-5.1) mmol/L Chloride 95 L (98-107) mmol/L Carbon Dioxide 36 H (22-30) mmol/L BUN 18 H (7-17) mg/dL Creatinine 0.49 L (0.52-1.04) mg/dL Glucose 142 H (74-99) mg/dL Calcium 9.0 (8.4-10.2) mg/dL AST 25 (14-36) U/L ALT 20 (4-34) U/L Alkaline Phosphatase 132 H (38-126) U/L Total Protein 6.5 (6.3-8.2) g/dL Albumin 3.8 (3.5-5.0) g/dL Calcium panel 07/24/23 Range/Units 05:17 Calcium 9.0 (8.4-10.2) mg/dL Albumin 3.8 (3.5-5.0) g/dL Pituitary panel 07/24/23 Range/Units 05:17 Sodium 136 L (137-145) mmol/L Potassium 4.5 (3.5-5.1) mmol/L Chloride 95 L (98-107) mmol/L Carbon Dioxide 36 H (22-30) mmol/L BUN 18 H (7-17) mg/dL Creatinine 0.49 L (0.52-1.04) mg/dL Glucose 142 H (74-99) mg/dL Calcium 9.0 (8.4-10.2) mg/dL Adrenal panel 07/24/23 Range/Units 05:17 Sodium 136 L (137-145) mmol/L Potassium 4.5 (3.5-5.1) mmol/L Chloride 95 L (98-107) mmol/L Carbon Dioxide 36 H (22-30) mmol/L BUN 18 H (7-17) mg/dL Creatinine 0.49 L (0.52-1.04) mg/dL Glucose 142 H (74-99) mg/dL Calcium 9.0 (8.4-10.2) mg/dL Total Bilirubin 0.5 (0.2-1.3) mg/dL AST 25 (14-36) U/L ALT 20 (4-34) U/L Alkaline Phosphatase 132 H (38-126) U/L Total Protein 6.5 (6.3-8.2) g/dL Albumin 3.8 (3.5-5.0) g/dL - Imaging Chest x-ray: report reviewed, image reviewed EKG: image reviewed Assessment and Plan Assessment: Severe bicuspid aortic valve stenosis Coronary artery disease with myocardial infarction and previous PCI Ischemic cardiomyopathy with EF 45% Hypertension Hyperlipidemia Aortic aneurysmal dilatation 5 cm End-stage COPD with chronic hypoxic respiratory failure on home oxygen Previous tobacco dependence Plan: The patient was seen and examined laying in bed on the cardiac stepdown unit. Chart/diagnostics reviewed. Patient's and son were present. Patient is too sleepy postcardiac catheterization to answer a lot of questions. The usual course of TAVR was discussed with the patient and her family, unfortunately both the patient and the state unequivocally that she is unwilling to attend any outside physician appointments or clinic appointments. We did discuss that while we cannot fix what ever part of her shortness of breath is from end-stage COPD, if we fix her aortic valve what ever part of her shortness of breath was attributed to aortic stenosis may improve and she may have an improved quality of life. Regardless, the patient still adamantly states she is not going to follow-up appointments. For completeness sake we will get her carotid Doppler and pulmonary function test completed during this hospitalization. We did attempt to call the pulmonology office, the patient has repeatedly canceled or no call/no showed for pulmonology as well as PFT appointments. In addition, the patient has not seen a dentist in a few years. She does have some of her own teeth and would need dental clearance which could be obtained inpatient if we are to proceed with TAVR. The patient will need a gated CT, however she had a heart catheterization today and would best be served by waiting a few days for the dye to clear her kidneys prior to gated CTA being completed. This was discussed with the patient and her family. In the meantime, continue supportive treatment. More recommendations to follow. I have personally seen and examined the patient, performed the documentation and the assessment and plan as written. Number of minutes spent on the visit: 30. [place] Avila, EDUARDO Addendum 07/28/23: Patient has been seen daily, all TAVR workup completed (Panorex completed, dentist unable to see patient while hospitalized). Extensive discussion took place at TAVR clinic on 07/24/[address] Meek and Dr. Hinkle regarding plan of care. At this point our recommendation is for BAV, if patient benefits from BAV then plan may be to proceed with TAVR, although both valve companies report she measures outside IFU sizing parameters. If the patient experiences no benefit/improved quality of life then TAVR is unlikely to be beneficial to the patient and palliative care should be considered. This was discussed multiple times at length with the patient and her family and they are in agreement. Patient was scheduled yesterday for BAV with Dr. Hinkle, however throughout the morning her blood pressure became hypotensive, she was transferred to the intensive care unit and started on IV Levophed, and BAV was canceled. Currently her levo has been titrated down, and the plan is for BAV this afternoon with Dr. Hinkle.
--- NOTE | 2023-07-24 13:56 | P.CARDCATH ---
Description of Procedure: PROCEDURES PERFORMED: Bilateral coronary angiography, ultrasound guided arterial access INDICATION: Non-STEMI CONSENT:I have discussed the risks, benefits and alternative therapies for the above-mentioned procedure and for both sedation/analgesia as well as necessary blood product administration, if indicated, as they pertain to this patient. The patient has indicated understanding and acceptance of the risks and procedures discussed. PROCEDURE: After the risks, benefits and alternatives of the above mentioned procedure explained in detail with the patient, informed consent was obtained. Patient was taken to the catheterization lab and prepped and draped in usual fashion. Ultrasound guidance was used to assess for arterial access. 1% lidocaine was used to anesthetize the right radial artery. A 6-Kiswahili sheath was placed in the right radial artery using modified Seldinger technique and ultrasound guidance. Left coronary angiography was performed with a 6-Kiswahili JL 4.0 catheter and right coronary angiography was performed with a 5-Kiswahili AR2 catheter in various views. The right radial sheath was removed and a TR band was placed with hemostasis achieved. The patient tolerated the procedure well. Patient was transported back to the post catheterization holding area in stable condition. Conscious Sedation: Patient was monitored under the direct supervision of myself for conscious sedation using Versed and fentanyl for a total duration of 22 minutes HEMODYNAMICS: Aorta: 133/77 SELECTIVE CORONARY ARTERIOGRAPHY: LEFT MAIN: The left main is a large caliber vessel which bifurcates into the LAD and circumflex. There is no significant stenosis. LEFT ANTERIOR DESCENDING CORONARY ARTERY: LAD is a large caliber vessel which wraps around to the apex. There is a mid LAD 40-50% stenosis and otherwise mild luminal irregularities. LEFT CIRCUMFLEX CORONARY ARTERY: Left circumflex is a moderate caliber vessel with mild luminal irregularities. RIGHT CORONARY ARTERY: The right coronary artery is a large caliber vessel which gives off a PDA and PLV branch and is the dominant vessel. There is a patent proximal RCA stent and otherwise 20% mid RCA stenosis FINAL IMPRESSION: 1. CAD as described above including mid LAD 40-50% stenosis with patent proximal RCA stent PLAN: 1. Aggressive risk factor modification per most recent ACC/AHA guidelines.
[2023-07-24] MEDS: IPRATROPIUM-ALBUTEROL 3 ML NEB INHALATION PRN (15:14)
--- NOTE | 2023-07-24 16:16 | US ---
EXAMINATION TYPE: US carotid duplex BILAT DATE OF EXAM: 07/24/2023 COMPARISON: NONE CLINICAL INDICATION: Female, 63 years old with history of preop cardiac surgery; Prior smoker, diabet es. Pre op cardiac surgery. TECHNIQUE: Carotid duplex ultrasound examination. Indirect Doppler criteria was utilized. 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 Right ICA is to rtuous. Exam is limited due to patient's difficulty holding neck in proper position and heavy breathing. No elevated velocities at this time. IMPRESSION: Limited examination as noted although no evidence for hemodynamically significant stenosis. Criteria for Assigning % of Stenosis / Diameter reduction (Estimation based on the indirect measurements of the internal carotid artery velocities (ICA PSV). 1. Normal (no stenosis)=ICA PSV < 125 cm/s: ratio < 2.0: ICA EDV<40 cm/s. 2. Less than 50% stenosis=ICA PSV < 125 cm/s: ratio < 2.0: ICA EDV<40 cm/s. 3. 50 to 69% stenosis=ICA PSV of 125 to 230 cm/s: ration 2.0 ? 4.0: ICA EDV 40-100 cm/s. 4. Greater than 70% stenosis to near occlusion= ICA PSV > 230 cm/s: ratio > 4.0: ICA EDV > 100 cm/s. 5. Near occlusion= ICA PSV velocities may be low or undetectable: variable ratio and ICA EDV. 6. Total occlusion=unable to detect flow.
[2023-07-24 16:50] LABS: Glucose,Whole Blood 215 mg/dL (70-110)
[2023-07-24 20:06] LABS: Glucose,Whole Blood 267 mg/dL (70-110)
[2023-07-24] MEDS: ATORVASTATIN 40 MG TAB PO SCH (20:38)
[2023-07-25 05:51] LABS: Glucose,Whole Blood 303 mg/dL (70-110)
[2023-07-25 07:46] LABS: Basophils % (A) 0 %; Eosinophils % (A) 0 %; HCT 33.8 % (34.0-46.0); HGB 10.4 gm/dL (11.4-16.0); Hypochromasia Moderate; Lymphocytes # (A) 0.5 k/uL (1.0-4.8); Lymphocytes % (A) 4 %; MCH 30.7 pg (25.0-35.0); MCHC 30.8 g/dL (31.0-37.0); MCV 99.6 fL (80.0-100.0); Macrocytosis Slight; Mean Platelet Volume 8.1; Monocytes # (A) 0.3 k/uL (0-1.0); Monocytes % (A) 3 %; Neutrophils % (A) 92 %; Platelet Count 243 k/uL (150-450); RDW 14.5 % (11.5-15.5); WBC 11.9 k/uL (3.8-10.6)
[2023-07-25 07:50] LABS: Prothrombin Time 10.7 sec (10.0-12.5)
[2023-07-25 08:25] LABS: Potassium 4.6 mmol/L (3.5-5.1)
[2023-07-25 08:26] LABS: African American GFR (CKD) >90 (>60 ml/min/1.73 sqM); Anion Gap 6 mmol/L; Blood Urea Nitrogen 28 mg/dL (7-17); Carbon Dioxide 36 mmol/L (22-30); Chloride 94 mmol/L (98-107); Glucose 192 mg/dL (74-99); Non-African American GFR(CKD) >90 (>60 ml/min/1.73 sqM); Sodium 136 mmol/L (137-145)
[2023-07-25] MEDS: ACETAMINOPHEN TAB 325 MG TAB PO PRN (08:59)
[2023-07-25] MEDS: ALPRAZolam 0.5 MG TAB PO PRN (08:59)
[2023-07-25] MEDS: ASPIRIN 81 MG PO SCH (09:00)
[2023-07-25] MEDS: lisinopriL 5 MG TAB PO SCH (09:00)
--- NOTE | 2023-07-25 10:53 | P.PN ---
Subjective This is a pleasant 62 years old female with past medical history of multiple medical problems including COPD and chronic hypoxic respiratory failure on 5 L oxygen at home and she follows up with Dr. MACARIO for her COPD. Other medical problems including aortic stenosis status post TAVR, coronary artery disease s/p stent and depression and anxiety. Patient presents because of pain in her right shoulder radiating to her right arm and right chest for a few days since , 110/10 in severity, no history of trauma or fall. Pain described as nonspecific with no precipitating or relieving factors. She denies dyspnea she has dry cough. She is using 5 L of oxygen at home. No change in urine or bowel habits. No headache dizziness weakness or numbness. She denies current smoking alcohol or illicit drugs Patient is hemodynamically stable, afebrile She has unremarkable CBC, INR, BMP, liver enzymes, lipase Troponin is elevated 0.04 Chest x-ray is negative for acute process EKG showing atrial tachycardia with short DE interval but no significant ST-T changes. 07/25/2023 Patient is status post cardiac cath yesterday showing mid LAD stenosis 40-50% with patent RCA stent, also shows evidence of severe aortic stenosis, therefore cardiothoracic surgery team were consulted however patient is known not to follow-up on patient, as confirmed with the patient and daughter at bedside today who states that her mom usually go home call Dr. trejo isn't canceled her appointment and she does not follow up Further workup per cardiothoracic surgery team is requested here On admission yesterday she has limited air entry and she was placed on IV Solu- Medrol or acute COPD exacerbation, whiletoday air flow is much better although she has scattered wheezing and she still mildly tachypneic and therefore we consulted pulmonary service currently she is placed on prednisone 5 mg. she is to have mild to moderate right shoulder pain mostly related to her cardiac disease. Some elements of osteoarthritis. her heparin drip was stopped , Review of systems CONSTITUTIONAL: No fever, no malaise, no fatigue. HEENT: No recent visual problems or hearing problems. Denied any sore throat. CARDIOVASCULAR: No orthopnea, PND, no palpitations, no syncope. PULMONARY: No shortness of breath, no cough, no hemoptysis. GASTROINTESTINAL: No diarrhea, no nausea, no vomiting, no abdominal pain. Normoactive bowel sounds. NEUROLOGICAL: No headaches, no weakness, no numbness. HEMATOLOGICAL: Denies any bleeding or petechiae. Active Medications Generic Name Dose Route Start Last Admin Trade Name Freq PRN Reason Stop Dose Admin Acetaminophen 650 mg 07/24/23 07:35 07/25/23 08:59 Acetaminophen Tab 325 Mg Tab PO 650 mg Q4HR PRN Administration Fever and/or Mild Pain Albuterol/Ipratropium 3 ml 07/24/23 07:34 07/25/23 08:30 Ipratropium-Albuterol 3 Ml Neb INHALATION 3 ml RT-QID PRN Administration Shortness Of Breath Or Wheezing Alprazolam 0.25 mg 07/24/23 08:55 Alprazolam 0.25 Mg Tab PO Q6HR PRN Mild Anxiety Alprazolam 0.5 mg 07/24/23 08:55 07/25/23 08:59 Alprazolam 0.5 Mg Tab PO 0.5 mg Q6HR PRN Administration Moderate Anxiety Aspirin 81 mg 07/25/23 09:00 07/25/23 09:00 Aspirin 81 Mg PO 81 mg DAILY [facility] Administration Atorvastatin Calcium 40 mg 07/24/23 21:00 07/24/23 20:38 Atorvastatin 40 Mg Tab PO 40 mg HS [facility] Administration Budesonide/Formoterol Fumarate 2 puff 07/24/23 08:00 07/25/23 08:30 Symbicort 160-4.5 Mcg Inhaler INHALATION 2 puff RT-BID [facility] Administration Dapagliflozin 5 mg 07/24/23 09:00 07/25/23 09:00 Dapagliflozin Propanediol 5 Mg Tablet PO 5 mg DAILY [facility] Administration Dextrose/Water 25 ml 07/24/23 07:34 Dextrose 50% Syringe 50 Ml IVP PER PROTOCOL PRN Hypoglycemia Protocol Dextrose/Water 50 ml 07/24/23 07:34 Dextrose 50% Syringe 50 Ml IVP PER PROTOCOL PRN Hypoglycemia Protocol Famotidine 20 mg 07/24/23 09:00 07/25/23 09:00 Famotidine 20 Mg/2 Ml Vial IV 20 mg Q12HR [facility] Administration Furosemide 40 mg 07/24/23 09:00 07/25/23 09:00 Furosemide 40 Mg Tab PO 40 mg DAILY [facility] Administration Heparin Sodium (Porcine) 0 unit 07/24/23 08:55 Heparin Sodium 1,000 Un/Ml (10ml Vl) IV PER PROTOCOL PRN Low PTT Protocol Hydroxyzine HCl 25 mg 07/24/23 09:00 07/25/23 09:00 Hydroxyzine Hcl 25 Mg Tab PO 25 mg BID [facility] Administration Heparin Sodium/Sodium Chloride 250 mls @ 9.979 mls/hr 07/24/23 09:00 07/25/23 10:02 25,000 unit/ Sodium Chloride IV Not Given .Q24H [facility] Protocol 11 UNITS/KG/HR Sodium Chloride 1,000 ml/ IV 1,000 mls @ 90.718 mls/hr 07/24/23 09:00 0 07/25/23 09:39 Solution IV Not Given .Q11H2M [facility] 1 ML/KG/HR Insulin Aspart 0 unit 07/24/23 12:30 07/25/23 06:25 Insulin Aspart (Novolog) 100 Unit/Ml Vial SQ 4 unit ACHS [facility] Administration Protocol Ipratropium [place] 0.5 mg 07/24/23 08:00 07/25/23 08:29 Ipratropium 0.5 Mg/2.5 Ml Nebu INHALATION Not Given RT-QID [facility] Lisinopril 5 mg 07/25/23 09:00 07/25/23 09:00 Lisinopril 5 Mg Tab PO 5 mg DAILY [facility] Administration Metoprolol Succinate 25 mg 07/24/23 09:00 07/25/23 09:00 Metoprolol Succinate (Er) 25 Mg Tab.Er.24h PO 25 mg BID [facility] Administration Morphine Sulfate 4 mg 07/24/23 06:43 Morphine Sulfate 4 Mg/Ml Syringe IV Q4HR PRN Severe Pain (Scale 7 to 10) Naloxone HCl 0.2 mg 07/24/23 06:43 Naloxone 0.4 Mg/Ml 1 Ml Vial IV Q2M PRN Opioid Reversal Nitroglycerin 0.4 mg 07/24/23 07:35 Nitroglycerin Sl Tabs 0.4 Mg Tab SUBLINGUAL Q5M PRN Chest Pain Nitroglycerin 0.4 mg 07/24/23 08:55 Nitroglycerin Sl Tabs 0.4 Mg Tab SUBLINGUAL Q5M PRN Chest Pain Prednisone 5 mg 07/26/23 09:00 Prednisone 5 Mg Tab PO DAILY [facility] Sertraline HCl 100 mg 07/24/23 09:00 07/25/23 09:00 Sertraline 100 Mg Tab PO 100 mg DAILY [facility] Administration Objective - Vital Signs Vital signs: Vital Signs Temp 97.8 F 07/25/23 08:00 Pulse 76 07/25/23 09:03 Resp 18 07/25/23 08:43 BP 117/74 07/25/23 08:00 Pulse Ox 94 L 07/25/23 08:30 FiO2 Intake & Output 07/24/23 07/25/23 07/25/23 18:59 06:59 18:59 Intake Total 110 668.272 10 Balance 110 668.272 10 Weight 90.718 kg Intake: IV 20 20 10 Invasive Line 1 10 20 10 Intake, IV Titration 108.272 Amount Heparin Sod,Pork in 0.45% 108.272 NaCl 25,000 unit In 0.45 % NaCl 1 250ml.bag @ 11 UNITS/KG/HR 9.979 mls/hr IV .Q24H [facility] Rx#: [id number] Oral 90 540 Other: Voiding Method Bedpan Bedpan Bedpan # Voids 1 - Exam GENERAL: The patient is alert and oriented x3, not in any acute distress. Well developed, well nourished. HEENT: Pupils are round and equally reacting to light. EOMI. No scleral icterus. No conjunctival pallor. Normocephalic, atraumatic. No pharyngeal erythema. No thyromegaly. CARDIOVASCULAR: S1 and S2 present. No murmurs, rubs, or gallops. -PULMONARY: Chest is clear to auscultation, scattered wheezing , no crackles. ABDOMEN: Soft, nontender, nondistended, normoactive bowel sounds. No palpable organomegaly. MUSCULOSKELETAL: No joint swelling or deformity. EXTREMITIES: No cyanosis, clubbing, or pedal edema. NEUROLOGICAL: Gross neurological examination did not reveal any focal deficits. SKIN: No rashes. no petechiae. - Labs CBC & Chem 7: 07/25/23 06:47 07/25/23 06:47 Labs: Abnormal Lab Results - Last 24 Hours (Table) 07/24/23 07/24/23 07/24/23 Range/Units 09:16 11:23 16:32 WBC (3.8-10.6) k/uL RBC (3.80-5.40) m/uL Hgb (11.4-16.0) gm/dL Hct (34.0-46.0) % MCHC (31.0-37.0) g/dL Neutrophils # (1.3-7.7) k/uL Lymphocytes # (1.0-4.8) k/uL Sodium (137-145) mmol/L Chloride (98-107) mmol/L Carbon Dioxide (22-30) mmol/L BUN (7-17) mg/dL Glucose (74-99) mg/dL POC Glucose (mg/dL) 147 H (70-110) mg/dL Hemoglobin A1c 6.9 H (<=6.0) % Troponin I 0.047 H* (0.000-0.034) ng/mL 07/24/23 07/24/23 07/25/23 Range/Units 16:49 20:04 05:50 WBC (3.8-10.6) k/uL RBC (3.80-5.40) m/uL Hgb (11.4-16.0) gm/dL Hct (34.0-46.0) % MCHC (31.0-37.0) g/dL Neutrophils # (1.3-7.7) k/uL Lymphocytes # (1.0-4.8) k/uL Sodium (137-145) mmol/L Chloride (98-107) mmol/L Carbon Dioxide (22-30) mmol/L BUN (7-17) mg/dL Glucose (74-99) mg/dL POC Glucose (mg/dL) 215 H 267 H 303 H (70-110) mg/dL Hemoglobin A1c (<=6.0) % Troponin I (0.000-0.034) ng/mL 07/25/23 07/25/23 Range/Units 06:47 06:47 WBC 11.9 H (3.8-10.6) k/uL RBC 3.40 L (3.80-5.40) m/uL Hgb 10.4 L (11.4-16.0) gm/dL Hct 33.8 L (34.0-46.0) % MCHC 30.8 L (31.0-37.0) g/dL Neutrophils # 11.0 H (1.3-7.7) k/uL Lymphocytes # 0.5 L (1.0-4.8) k/uL Sodium 136 L (137-145) mmol/L Chloride 94 L (98-107) mmol/L Carbon Dioxide 36 H (22-30) mmol/L BUN 28 H (7-17) mg/dL Glucose 192 H (74-99) mg/dL POC Glucose (mg/dL) (70-110) mg/dL Hemoglobin A1c (<=6.0) % Troponin I (0.000-0.034) ng/mL Assessment and Plan Assessment: Right shoulder pain/chest pain with mildly elevated troponin, rule out cardiac causes/NSTEMI Acute COPD exacerbation Mildly acute on chronic hypoxic respiratory failure Atrial tachycardia with short DE interval Coronary artery disease s/p stent History of arctic stenosis s/p TAVR Obesity with BMI of 36.6 History of depression and anxiety, no acute process. Plan: Continue with aspirin Cardiology consult cardiothoracic consult patient and kiahter at bed side were counseled about the importance of follow- up with appointment prednisone 5 mg daily Continue breathing treatment and bronchodilator Labs and medication were reviewed.. Continue same treatment. Continue with symptomatic treatment. Resume home medication. Monitor labs and vitals. DVT and GI prophylaxis. Further recommendations as per clinical course of the patient DVT prophylaxis: Subcutaneous heparin GI Prophylaxis: Pepcid Prognosis is guarded
[2023-07-25 11:30] LABS: Glucose,Whole Blood 287 mg/dL (70-110)
--- NOTE | 2023-07-25 12:32 | P.PN ---
Subjective HISTORY OF PRESENT ILLNESS: This is a 63-year-old female with a past medical history significant for coronary artery disease, COPD on home oxygen, bicuspid aortic valve with severe stenosis, hypertension, hyperlipidemia, and former nicotine dependence. Patient follows in the office with Dr. Hinkle. We have been asked to see the patient in consultation for chest pain. Patient examined at the bedside in the emergency room. Patient's is present. Patient states over the past couple days she has been having right arm pain. She states the pain goes into her shoulder. She states it is worse with movement. The pain is also worse with palpation of her right arm. Her states he has been putting Biofreeze on her arm which has helped the pain but did not completely take it away. She currently denies any chest pain or pressure. She reports chronic shortness of breath. Denies any dizziness or lightheadedness. It is noted that the patient underwent cardiac catheterization in March 2023 with PCI of the proximal RCA. Patient apparently has been referred to the TAVR clinic multiple times. However the patient's says that she refuses to leave the house due to shortness of breath so she will not go to any appointments. He does report that she has a portable oxygen tank but she is too short of breath to follow-up for any doctors appointments. DIAGNOSTICS: - EKG reveals sinus mechanism with no signs of acute ischemia. - Chest xray negative for acute process. - Laboratory data: WBC 12.0. Hemoglobin 10.7. Platelet count 203. Sodium 136. Potassium 4.5. BUN 18. Creatinine 0.49. Troponin 0.043. 0.097. - Current home cardiac medications include lisinopril 10 mg daily, metoprolol succinate 25 mg twice a day, Lasix 40 mg daily, Farxiga 5 mg daily, Lipitor 40 mg at night, aspirin 81 mg daily. - Most recent echocardiogram obtained in October 2022 revealed ejection fraction 45%, mild pulmonary hypertension, mild MR, severe aortic stenosis with a peak gradient of 69 mmHg and a mean gradient of 46 mmHg, mild TR - Cardiac catheterization history: March 2023 with PCI of the proximal RCA 07/25/2023 Patient is status postcardiac catheterization yesterday with Dr. Hinkle revealing unchanged coronary artery disease including mid LAD 40 to 50% stenosis with patent proximal RCA stent. Patient examined this morning at the bedside. Patient denies chest pain or pressure. She currently denies shortness of breath. CT surgery was consulted yesterday for TAVR evaluation. Vital signs are stable. PHYSICAL EXAM: VITAL SIGNS: Reviewed. GENERAL: Well-developed in no acute distress. HEENT: Head is normocephalic. Pupils are equal, round. Sclerae anicteric. Mucous membranes of the mouth are moist. Neck supple. No JVD or thyromegaly LUNGS: Respirations even and unlabored. Lungs with expiratory wheezing noted throughout HEART: Mildly tachycardic. Regular rate and rhythm. S1 and S2 heard. Systolic murmur noted. ABDOMEN: Soft. Nondistended. Nontender. EXTREMITIES: Normal range of motion. No clubbing or cyanosis. Peripheral pulses intact. No lower extremity edema NEUROLOGIC: Awake and alert. Oriented x 3. ASSESSMENT: Right arm pain, appears musculoskeletal Non-STEMI, status post cardiac catheterization with no progression of CAD Coronary artery disease with previous PCI, most recently March 2023 with PCI of the proximal RCA Ischemic cardiomyopathy, ejection fraction 45% Severe aortic stenosis Mild pulmonary hypertension Hypertension Hyperlipidemia COPD Chronic hypoxic respiratory failure on home oxygen Former nicotine dependence PLAN: 2D echo ordered. Await results. Continue current cardiac medications CT surgery has been consulted for evaluation. Patient states this morning she is willing to be compliant with follow-up appointments and would like to proceed with possibility of TAVR. Will await further recommendations from CT surgery Further recommendations pending patient course Nurse practitioner note has been reviewed by physician. Signing provider agrees with the documented findings, assessment, and plan of care documented by SENIOR WEALTH ADVISOR as a scribe. Objective - Vital Signs Vital signs: Vital Signs Temp 98.1 F 07/25/23 12:00 Pulse 98 07/25/23 12:00 Resp 18 07/25/23 12:00 BP 96/59 07/25/23 12:00 Pulse Ox 92 L 07/25/23 12:00 FiO2 Intake & Output 07/24/23 07/25/23 07/25/23 18:59 06:59 18:59 Intake Total 110 668.272 10 Balance 110 668.272 10 Weight 90.718 kg Intake: IV 20 20 10 Invasive Line 1 10 20 10 Intake, IV Titration 108.272 Amount Heparin Sod,Pork in 0.45% 108.272 NaCl 25,000 unit In 0.45 % NaCl 1 250ml.bag @ 11 UNITS/KG/HR 9.979 mls/hr IV .Q24H [facility] Rx#: [id number] Oral 90 540 Other: Voiding Method Bedpan Bedpan Bedpan # Voids 1 - Labs CBC & Chem 7: 07/25/23 06:47 07/25/23 06:47 Labs: Abnormal Lab Results - Last 24 Hours (Table) 07/24/23 07/24/23 07/24/23 Range/Units 09:16 16:32 16:49 WBC (3.8-10.6) k/uL RBC (3.80-5.40) m/uL Hgb (11.4-16.0) gm/dL Hct (34.0-46.0) % MCHC (31.0-37.0) g/dL Neutrophils # (1.3-7.7) k/uL Lymphocytes # (1.0-4.8) k/uL Sodium (137-145) mmol/L Chloride (98-107) mmol/L Carbon Dioxide (22-30) mmol/L BUN (7-17) mg/dL Glucose (74-99) mg/dL POC Glucose (mg/dL) 215 H (70-110) mg/dL Hemoglobin A1c 6.9 H (<=6.0) % Troponin I 0.047 H* (0.000-0.034) ng/mL 07/24/23 07/25/23 07/25/23 Range/Units 20:04 05:50 06:47 WBC (3.8-10.6) k/uL RBC (3.80-5.40) m/uL Hgb (11.4-16.0) gm/dL Hct (34.0-46.0) % MCHC (31.0-37.0) g/dL Neutrophils # (1.3-7.7) k/uL Lymphocytes # (1.0-4.8) k/uL Sodium 136 L (137-145) mmol/L Chloride 94 L (98-107) mmol/L Carbon Dioxide 36 H (22-30) mmol/L BUN 28 H (7-17) mg/dL Glucose 192 H (74-99) mg/dL POC Glucose (mg/dL) 267 H 303 H (70-110) mg/dL Hemoglobin A1c (<=6.0) % Troponin I (0.000-0.034) ng/mL 07/25/23 07/25/23 Range/Units 06:47 11:28 WBC 11.9 H (3.8-10.6) k/uL RBC 3.40 L (3.80-5.40) m/uL Hgb 10.4 L (11.4-16.0) gm/dL Hct 33.8 L (34.0-46.0) % MCHC 30.8 L (31.0-37.0) g/dL Neutrophils # 11.0 H (1.3-7.7) k/uL Lymphocytes # 0.5 L (1.0-4.8) k/uL Sodium (137-145) mmol/L Chloride (98-107) mmol/L Carbon Dioxide (22-30) mmol/L BUN (7-17) mg/dL Glucose (74-99) mg/dL POC Glucose (mg/dL) 287 H (70-110) mg/dL Hemoglobin A1c (<=6.0) % Troponin I (0.000-0.034) ng/mL
--- NOTE | 2023-07-25 13:15 | CA ---
Transthoracic Echo Report Name: Blanka Porras Age: 63 Gender: F : 1960 Exam Date: 07/25/2023 09:16 Exam Location: [facility] Ht (in): 62 Wt (lb): 200 Ordering Physician: Paulette Marquez Attending/Referring Phys: [id number], [place] Underwriting Service Representative Viktoria Hicks RCS Procedure CPT: Indications: NSTEMI, LV Function Cardiac Hx: Technical Quality: Technically difficult study Contrast 1: Definity Total Dose (mL): 2 Contrast 2: Total Dose (mL): MEASUREMENTS (Male / Female) Normal Values 2D ECHO LV Diastolic Diameter PLAX 5.6 cm 4.2 - 5.9 / 3.9 - 5.3 cm LV Systolic Diameter PLAX 3.7 cm IVS Diastolic Thickness 1.3 cm 0.6 - 1.0 / 0.6 - 0.9 cm LVPW Diastolic Thickness 1.1 cm 0.6 - 1.0 / 0.6 - 0.9 cm LV Relative Wall Thickness 0.4 RV Internal Dim ED PLAX 2.7 cm LVOT Diameter 2.8 cm LV Diastolic Volume MOD BP 115.7 cm??? 67 - 155 / 56 - 104 cm??? LV Systolic Volume MOD BP 43.1 cm??? 22 - 58 / 19 - 49 cm??? LV Ejection Fraction MOD BP 62.7 % >= 55 % LV Cardiac Index MOD BP 2957.8 cm???/min???m??? LV Diastolic Volume MOD 4C 111.5 cm??? LV Systolic Volume MOD 4C 38.1 cm??? LV Ejection Fraction MOD 4C 65.9 % LV Cardiac Index MOD 4C 2995.3 cm???/min???m??? LV Diastolic Length 4C 7.9 cm LV Systolic Length 4C 7.2 cm LV Diastolic Volume MOD 2C 111.8 cm??? LV Systolic Volume MOD 2C 44.7 cm??? LV Ejection Fraction MOD 2C 60.0 % LV Cardiac Index MOD 2C 2735.4 cm???/min???m??? LV Diastolic Length 2C 8.5 cm LV Systolic Length 2C 6.6 cm LA Volume 59.2 cm??? 18 - 58 / 22 - 52 cm??? LA Volume Index 29.1 cm???/m??? 16 - 28 cm???/m??? Ascending Aorta Diameter 4.6 cm DOPPLER AV Peak Velocity 499.3 cm/s AV Peak Gradient 99.7 mmHg AV Mean Velocity 387.2 cm/s AV Mean Gradient 64.1 mmHg AV Velocity Time Integral 105.0 cm LVOT Peak Velocity 102.2 cm/s LVOT Peak Gradient 4.2 mmHg LVOT Velocity Time Integral 19.4 cm LVOT Stroke Volume 121.7 cm??? LVOT Stroke Volume Index 63.7 ml/m??? LVOT Cardiac Index 4961.6 cm???/min???m??? AV Area Cont Eq vti 1.2 cm??? AV Area Cont Eq pk 1.3 cm??? Mitral E Point Velocity 50.6 cm/s Mitral A Point Velocity 80.6 cm/s Mitral E to A Ratio 0.6 MV Deceleration Time 164.1 ms MV E' Velocity 4.2 cm/s Mitral E to MV E' Ratio 12.2 FINDINGS Left Ventricle Left ventricular ejection fraction is estimated at 60-65 %. Moderately increased septal wall thickness. Mildly increased posterior wall thickness. Mildly increased left ventricular diastolic diameter. Mildly increased left ventricular diastolic volume. No obvious regional wall motion abnormalities. Right Ventricle Normal right ventricular size and function. Unable to estimate right ventricular systolic function. Right Atrium Right atrium not well visualized. Left Atrium Mildly increased left atrial volume. Mitral Valve Mitral valve thickened. No evidence for mitral valve prolapse. No mitral stenosis. Trace mitral regurgitation. Aortic Valve Aortic valve not well visualized. Severe aortic stenosis with a peak velocity of 5.0 m/s, peak gradient 100 mmHg, mean gradient 75 mmHg, and estimated aortic valve area of 0.6 cm???. Tricuspid Valve Structurally normal tricuspid valve. No tricuspid stenosis. Trace tricuspid regurgitation. Pulmonic Valve Pulmonic valve not well visualized. No pulmonic stenosis. No pulmonic regurgitation. Pericardium No pericardial effusion. Aorta Aortic annulus normal. Moderately enlarged ascending aorta. CONCLUSIONS Left ventricular ejection fraction 60-65% Moderately increased left ventricular wall thickness Critical aortic stenosis with mean gradient 75 mmHg Trace mitral regurgitation Moderately dilated ascending aorta Previewed by: Dr. Antoni Hinkle DO (Electronically Signed) Final Date: 25 July 2023 13:14
--- NOTE | 2023-07-25 14:15 | P.CNPUL ---
History of Present Illness Consult date: 07/25/23 Requesting physician: Steven Zapien Reason for consult: dyspnea, COPD, hypoxemia, other Chief complaint: Shortness of breath and chest pain. History of present illness: Pulmonary consult dated July 25, 2023. 63-year-old female well-known to our service. The patient has a history of chronic hypoxemic respiratory failure secondary to COPD, and is chronically oxygen dependent. The patient presented to the emergency room, on July 23, complaining of chest pain. The pain apparently was on the right side of her chest, and radiated into her right arm. The pain started on the prior . The patient does have a history of coronary disease, and has had stents placed in the last year. In addition, she admits to chronic shortness of breath, secondary to her severe COPD. The patient did go to the catheterization laboratory on July 23, and was found to have a 40 to 50% stenosis, in the mid LAD, with a patent proximal RCA stent. In addition, on echocardiogram, the patient was found to have severe aortic stenosis, with a valve surface area of 1.6 cm, and a gradient across the aortic valve, of 100 mmHg. Lab data includes a white count 11.9, hemoglobin 10.4, hematocrit 33.8, and a platelet count of 243,000. Sodium 136, potassium 4.6, chlorides 94, CO2 36, BUN 28, creatinine 0. 6. The patient's troponin was 0.047, 0.097, and 0.043. Chest x-ray was unremarkable. Review of Systems REVIEW OF SYSTEMS: CONSTITUTIONAL: [Negative.] NEUROLOGIC: [ Negative.] HEENT: [ Negative.] CARDIAC: Chest pain. PULMONARY: Chronic shortness of breath. GI: [Negative.] : [Negative.] RHEUMATOLOGIC: [ Negative.] IMMUNOLOGIC: [ Negative.] ENDOCRINE: [Negative. ] DERMATOLOGIC: [Negative.] Past Medical History Past Medical History: Coronary Artery Disease (CAD), Chest Pain / Angina, COPD, Myocardial Infarction (AR), Respiratory Disorder Additional Past Medical History / Comment(s): Chronic hypercapnic respiratory failure, home oxygen at 5L/[place] ATC, tracheobronchitis, severe bicuspid aortic valve stenosis, chronic low back pain, DJD History of Any Multi-Drug Resistant Organisms: None Reported Past Surgical History: Breast Surgery, Heart Catheterization With Stent, Tubal Ligation Additional Past Surgical History / Comment(s): Bilateral breast reductions, bilateral cataract removals. Past Anesthesia/Blood Transfusion Reactions: No Reported Reaction Date of Last Stent Placement:: 04/2023 Smoking Status: Former smoker Past Alcohol Use History: None Reported Past Drug Use History: None Reported - Past Family History Father History Unknown: Yes Mother Family Medical History: Congestive Heart Failure (CHF), Diabetes Mellitus Medications and Allergies Home Medications Medication Instructions Recorded Confirmed Type Albuterol Inhaler [Ventolin Hfa 2 puff INHALATION RT-Q4H PRN 04/09/22 07/24/23 History Inhaler] Atorvastatin [Lipitor] 40 mg PO HS 04/09/22 07/24/23 History Aspirin 81 mg PO DAILY 30 Days #30 tab 04/12/22 07/24/23 Rx Sertraline [Zoloft] 100 mg PO DAILY 06/15/22 07/24/23 History Budesonide/Formoterol Fumarate 2 puff INHALATION RT-BID 07/13/22 07/24/23 History [Symbicort 160-4.5 Mcg Inhaler] Ipratropium-Albuterol Nebulize 3 ml INHALATION RT-QID PRN 09/23/22 07/24/23 History [Duoneb 0.5 mg-3 mg/3 ml Soln] Dapagliflozin Propanediol [Farxiga] 5 mg PO DAILY 11/19/22 07/24/23 History Yupelri 175mcg/3ml 175 mcg INHALATION RT-DAILY 11/19/22 07/24/23 History hydrOXYzine HCL [Atarax] 25 mg PO BID 11/19/22 07/24/23 History Tiotropium [place] [Spiriva 1 cap INHALATION RT-DAILY 04/19/23 07/24/23 History Handihaler] predniSONE 5 mg PO DAILY 04/19/23 07/24/23 History Acetaminophen Tab [Tylenol] 650 mg PO Q4HR PRN tab 05/18/23 07/24/23 Rx Furosemide [Lasix] 40 mg PO DAILY #30 tab 05/18/23 07/24/23 Rx Ipratropium-Albuterol Nebulize 3 ml INHALATION RT-QID #100 each 05/18/23 07/24/23 Rx [Duoneb 0.5 mg-3 mg/3 ml Soln] Meloxicam [Mobic] 7.5 mg PO BID 06/30/23 07/24/23 History Metoprolol Succinate (ER) [Toprol 25 mg PO BID #30 tab 07/05/23 07/24/23 Rx XL] lisinopriL [Prinivil] 10 mg PO DAILY 30 Days #30 tab 07/05/23 07/24/23 Rx Nitroglycerin Sl Tabs [Nitrostat] 0.4 mg SL Q5M PRN 07/24/23 07/24/23 History Allergies Allergy/AdvReac Type Severity Reaction Status Date / Time No Known Allergies Allergy Verified 07/24/23 07:14 Physical Exam Osteopathic Statement: *. No significant issues noted on an osteopathic structural exam other than those noted in the History and Physical/Consult. Vitals: Vital Signs Temp Pulse Pulse Pulse Resp BP Pulse Ox 07/25/23 12:00 98.1 F 98 18 96/59 92 L 07/25/23 11:17 100 18 07/25/23 11:06 100 18 07/25/23 09:03 76 07/25/23 08:43 102 H 18 07/25/23 08:30 100 18 94 L 07/25/23 08:00 97.8 F 76 18 117/74 96 07/25/23 04:00 98.1 F 75 20 135/72 98 07/25/23 00:00 97.7 F 85 16 114/67 93 L 07/24/23 21:25 100 07/24/23 21:14 104 H 07/24/23 20:00 98.3 F 113 H 20 101/64 95 07/24/23 15:30 96 07/24/23 15:15 98 07/24/23 14:47 90 16 106/62 91 L 07/24/23 14:33 92 18 112/66 96 07/24/23 14:04 94 16 108/64 94 L Intake and Output 07/24/23 07/25/23 07/25/23 22:59 06:59 14:59 Intake Total 128.272 550 10 Balance 128.272 550 10 Intake: IV 20 10 10 Invasive Line 1 20 10 10 Intake, IV Titration 108.272 Amount Heparin Sod,Pork in 0.45% 108.272 NaCl 25,000 unit In 0.45 % NaCl 1 250ml.bag @ 11 UNITS/KG/HR 9.979 mls/hr IV .Q24H [facility] Rx#: [id number] Oral 0 540 Other: Voiding Method Bedpan Bedpan Bedpan # Voids 1 No acute distress, oriented 3. The patient is currently on 5 L of oxygen. Saturations are 92%. HEENT examination is grossly unremarkable. Mucous membranes are moist. No oral lesions. Neck supple. Full range of motion. No adenopathy thyromegaly or neck vein distention. Cardiovascular examination reveals regular rhythm rate. S1-S2 normal. No S3 or S4. No discernible murmur noted. Heart sounds are distant. Heart rate 98 bpm. Lungs reveal diminished bilateral breath sounds. Scattered rhonchi and wheezes are noted. No crackles. Breath sounds equal bilaterally. Saturations are 92% on 5 L. Abdomen soft but obese. Bowel sounds are noted. Extremities are intact. No cyanosis clubbing or edema. Skin is without rash or lesion. Neurologic examination is brief but nonfocal. Results - Laboratory Findings CBC and BMP: 07/25/23 06:47 07/25/23 06:47 PT/INR, D-dimer PT 10.7 sec (10.0-12.5) 07/25/23 06:47 INR 1.0 (<1.2) 07/25/23 06:47 Abnormal lab findings: Abnormal Labs 07/24/23 07/24/23 07/24/23 05:17 05:17 05:17 WBC RBC 3.74 L Hgb Hct MCV MCHC 30.6 L Neutrophils # 8.0 H Lymphocytes # PT Sodium 136 L Chloride 95 L Carbon Dioxide 36 H BUN 18 H Creatinine 0.49 L Glucose 142 H POC Glucose (mg/dL) Hemoglobin A1c Alkaline Phosphatase 132 H Troponin I 0.043 H* 07/24/23 07/24/23 07/24/23 06:15 09:16 09:16 WBC RBC Hgb Hct MCV MCHC Neutrophils # Lymphocytes # PT 9.9 L Sodium Chloride Carbon Dioxide BUN Creatinine Glucose POC Glucose (mg/dL) Hemoglobin A1c 6.9 H Alkaline Phosphatase Troponin I 0.097 H* 07/24/23 07/24/23 07/24/23 09:16 09:16 11:23 WBC 12.0 H RBC 3.53 L Hgb 10.7 L Hct MCV 100.4 H MCHC 30.3 L Neutrophils # 9.2 H Lymphocytes # PT 9.8 L Sodium Chloride Carbon Dioxide BUN Creatinine Glucose POC Glucose (mg/dL) 147 H Hemoglobin A1c Alkaline Phosphatase Troponin I 07/24/23 07/24/23 07/24/23 16:32 16:49 20:04 WBC RBC Hgb Hct MCV MCHC Neutrophils # Lymphocytes # PT Sodium Chloride Carbon Dioxide BUN Creatinine Glucose POC Glucose (mg/dL) 215 H 267 H Hemoglobin A1c Alkaline Phosphatase Troponin I 0.047 H* 07/25/23 07/25/23 07/25/23 05:50 06:47 06:47 WBC 11.9 H RBC 3.40 L Hgb 10.4 L Hct 33.8 L MCV MCHC 30.8 L Neutrophils # 11.0 H Lymphocytes # 0.5 L PT Sodium 136 L Chloride 94 L Carbon Dioxide 36 H BUN 28 H Creatinine Glucose 192 H POC Glucose (mg/dL) 303 H Hemoglobin A1c Alkaline Phosphatase Troponin I 07/25/23 11:28 WBC RBC Hgb Hct MCV MCHC Neutrophils # Lymphocytes # PT Sodium Chloride Carbon Dioxide BUN Creatinine Glucose POC Glucose (mg/dL) 287 H Hemoglobin A1c Alkaline Phosphatase Troponin I - Diagnostic Findings Chest x-ray: image reviewed Assessment and Plan Assessment: Coronary artery disease, involving the LAD, with 40 to 50% stenosis, and a patent proximal RCA stent. Severe aortic stenosis with a valve surface area of 0.6 cm. Severe chronic hypoxemic and hypercapnic respiratory failure, secondary to COPD. History of hyperlipidemia. History of hypertension. History of chronic low back pain. Obesity. Aortic valve stenosis. History of tracheobronchitis. Prior history of heavy tobacco use. Plan: Plan dated July 25, 2023. The patient is admitted with a possible non-ST segment elevation myocardial infarction. The patient went to the cardiac catheterization laboratory in July 23, and was found to have a 40 to 50% obstruction/stenosis of the LAD. In addition, the patient had a patent stent to the RCA. In addition, the patient was found to have severe aortic stenosis, with a significant gradient across the valve, and a valve surface area 0.6 cm. The patient in our opinion would not be a great candidate for surgery given the severity of her chronic lung disease. Nonetheless, we will follow along, and make recommendations were appropriate. Prognosis is certainly guarded. Time with Patient: Greater than 30
[2023-07-25 16:21] LABS: LDL Cholesterol,Calculated 111.3 mg/dL (0.0-131.0); VLDL Calculation 15.98 mg/dL (5.00-40.00)
[2023-07-25 16:29] LABS: Glucose,Whole Blood 275 mg/dL (70-110)
--- NOTE | 2023-07-25 16:56 | CT ---
EXAMINATION TYPE: CT Panorex DATE OF EXAM: 07/25/2023 COMPARISON: none HISTORY: preop valve surgery CT DLP: 468.[address] of the mandible was performed utilizing CT Panorex protocol. Bone and soft tissue windo w settings are submitted as well as a subsequent Panorex view. Intraosseous components of right upper cuspid #6 an left upper cuspid #11 are noted with severe denta l caries noted. No evidence for apical lucency at this time or bone destruction. The remaining maxill glenn teeth are missing. Only 4 remaining mandibular teeth noted including lower left lateral incisor N ove[place] 23, right lateral incisor 26, right lower cuspid 27 and first bicuspid 28. Obviously visible mandibular teeth demonstrate extensive erosion and dental caries. There is apical lucency noted invol ving the remaining right lower mandibular teeth compatible with periapical abscess. There is evidence of bony erosion. No destructive process is seen. IMPRESSION: Extensive dental caries of remaining teeth as discussed above with periapical lucency com patible with periapical abscess involving the lower right mandibular teeth 26, 27 and 28.
[2023-07-25 20:07] LABS: Glucose,Whole Blood 373 mg/dL (70-110)
[2023-07-25] MEDS: HEPARIN SODIUM,PORCINE 5,000 UNIT/ML 1 ML VIAL SQ SCH (21:03)
[2023-07-26 06:08] LABS: Glucose,Whole Blood 144 mg/dL (70-110)
[2023-07-26] MEDS: predniSONE 5 MG TAB PO SCH (09:04)
--- NOTE | 2023-07-26 09:08 | P.PN ---
Subjective This is a pleasant 62 years old female with past medical history of multiple medical problems including COPD and chronic hypoxic respiratory failure on 5 L oxygen at home and she follows up with Dr. MACARIO for her COPD. Other medical problems including aortic stenosis status post TAVR, coronary artery disease s/p stent and depression and anxiety. Patient presents because of pain in her right shoulder radiating to her right arm and right chest for a few days since , 110/10 in severity, no history of trauma or fall. Pain described as nonspecific with no precipitating or relieving factors. She denies dyspnea she has dry cough. She is using 5 L of oxygen at home. No change in urine or bowel habits. No headache dizziness weakness or numbness. She denies current smoking alcohol or illicit drugs Patient is hemodynamically stable, afebrile She has unremarkable CBC, INR, BMP, liver enzymes, lipase Troponin is elevated 0.04 Chest x-ray is negative for acute process EKG showing atrial tachycardia with short IN interval but no significant ST-T changes. 07/25/2023 Patient is status post cardiac cath yesterday showing mid LAD stenosis 40-50% with patent RCA stent, also shows evidence of severe aortic stenosis, therefore cardiothoracic surgery team were consulted however patient is known not to follow-up on patient, as confirmed with the patient and daughter at bedside today who states that her mom usually go home call Dr. trejo isn't canceled her appointment and she does not follow up Further workup per cardiothoracic surgery team is requested here On admission yesterday she has limited air entry and she was placed on IV Solu- Medrol or acute COPD exacerbation, whiletoday air flow is much better although she has scattered wheezing and she still mildly tachypneic and therefore we consulted pulmonary service currently she is placed on prednisone 5 mg. she is to have mild to moderate right shoulder pain mostly related to her cardiac disease. Some elements of osteoarthritis. her heparin drip was stopped , 07/26/2023 Patient breathing is better, no chest pain today But she still complaining from more severe right shoulder pain. Patient has this pain improved with the steroids but when switched to oral prednisone 5 mg the pain increased today again. She has more rash in her medial arm and forearm and the arm. For short distance with maculopapular rash with possible some vesicles been forming with the pain and tenderness goes with the rash and around it, signs suspicious for shingles. Therefore we are going to start her on [place] for pain management and valacyclovir and asked ID team to reevaluate. Also will put on isolation till cleared. She is hemodynamically stable She is being evaluated by cardiothoracic surgery team as well. Review of systems CONSTITUTIONAL: No fever, no malaise, no fatigue. HEENT: No recent visual problems or hearing problems. Denied any sore throat. CARDIOVASCULAR: No orthopnea, PND, no palpitations, no syncope. PULMONARY: No shortness of breath, no cough, no hemoptysis. GASTROINTESTINAL: No diarrhea, no nausea, no vomiting, no abdominal pain. Normoactive bowel sounds. NEUROLOGICAL: No headaches, no weakness, no numbness. HEMATOLOGICAL: Denies any bleeding or petechiae. Active Medications Generic Name Dose Route Start Last Admin Trade Name Freq PRN Reason Stop Dose Admin Acetaminophen 650 mg 07/24/23 07:35 07/26/23 09:04 Acetaminophen Tab 325 Mg Tab PO 650 mg Q4HR PRN Administration Fever and/or Mild Pain Hydrocodone Bitart/Acetaminophen 1 each 07/26/23 09:02 Hydrocodone/Apap 5-325mg 1 Each Tab PO Q6HR PRN Moderate Pain (Scale 4 to 6) Albuterol/Ipratropium 3 ml 07/24/23 07:34 07/26/23 08:20 Ipratropium-Albuterol 3 Ml Neb INHALATION 3 ml RT-QID PRN Administration Shortness Of Breath Or Wheezing Alprazolam 0.25 mg 07/24/23 08:55 Alprazolam 0.25 Mg Tab PO Q6HR PRN Mild Anxiety Alprazolam 0.5 mg 07/24/23 08:55 07/25/23 08:59 Alprazolam 0.5 Mg Tab PO 0.5 mg Q6HR PRN Administration Moderate Anxiety Aspirin 81 mg 07/25/23 09:00 07/26/23 09:04 Aspirin 81 Mg PO 81 mg DAILY CHANTEL Administration Atorvastatin Calcium 40 mg 07/24/23 21:00 07/25/23 21:03 Atorvastatin 40 Mg Tab PO 40 mg HS CHANTEL Administration Budesonide/Formoterol Fumarate 2 puff 07/24/23 08:00 07/26/23 08:20 Symbicort 160-4.5 Mcg Inhaler INHALATION 2 puff RT-BID CHANTEL Administration Dapagliflozin 5 mg 07/24/23 09:00 07/26/23 09:04 Dapagliflozin Propanediol 5 Mg Tablet PO 5 mg DAILY CHANTEL Administration Dextrose/Water 25 ml 07/24/23 07:34 Dextrose 50% Syringe 50 Ml IVP PER PROTOCOL PRN Hypoglycemia Protocol Dextrose/Water 50 ml 07/24/23 07:34 Dextrose 50% Syringe 50 Ml IVP PER PROTOCOL PRN Hypoglycemia Protocol Famotidine 20 mg 07/24/23 09:00 07/26/23 09:03 Famotidine 20 Mg/2 Ml Vial IV 20 mg Q12HR CHANTEL Administration Furosemide 40 mg 07/24/23 09:00 07/26/23 09:05 Furosemide 40 Mg Tab PO 40 mg DAILY CHANTEL Administration Heparin Sodium (Porcine) 5,000 unit 07/25/23 21:00 07/26/23 09:05 Heparin Sodium,Porcine 5,000 Unit/Ml 1 Ml Vial SQ 5,000 unit Q12HR CHANTEL Administration Hydroxyzine HCl 25 mg 07/24/23 09:00 07/26/23 09:03 Hydroxyzine Hcl 25 Mg Tab PO 25 mg BID CHANTEL Administration Sodium Chloride 1,000 ml/ IV 1,000 mls @ 90.718 mls/hr 07/24/23 09:00 07/26/23 05:18 Solution IV Not Given .Q11H2M CHANTEL 1 ML/KG/HR Insulin Aspart 0 unit 07/24/23 12:30 07/26/23 06:20 Insulin Aspart (Novolog) 100 Unit/Ml Vial SQ Not Given ACHS CHANTEL Protocol Ipratropium [place] 0.5 mg 07/24/23 08:00 07/26/23 08:19 Ipratropium 0.5 Mg/2.5 Ml Nebu INHALATION Not Given RT-QID CHANTEL Lisinopril 5 mg 07/25/23 09:00 07/25/23 09:00 Lisinopril 5 Mg Tab PO 5 mg DAILY CHANTEL Administration Metoprolol Succinate 25 mg 07/24/23 09:00 07/26/23 09:05 Metoprolol Succinate (Er) 25 Mg Tab.Er.24h PO 25 mg BID CHANTEL Administration Morphine Sulfate 4 mg 07/24/23 06:43 Morphine Sulfate 4 Mg/Ml Syringe IV Q4HR PRN Severe Pain (Scale 7 to 10) Naloxone HCl 0.2 mg 07/24/23 06:43 Naloxone 0.4 Mg/Ml 1 Ml Vial IV Q2M PRN Opioid Reversal Nitroglycerin 0.4 mg 07/24/23 08:55 Nitroglycerin Sl Tabs 0.4 Mg Tab SUBLINGUAL Q5M PRN Chest Pain Prednisone 5 mg 07/26/23 09:00 07/26/23 09:04 Prednisone 5 Mg Tab PO 5 mg DAILY CHANTEL Administration Sertraline HCl 100 mg 07/24/23 09:00 07/26/23 09:04 Sertraline 100 Mg Tab PO 100 mg DAILY CHANTEL Administration Valacyclovir HCl 1,000 mg 07/26/23 09:00 Valacyclovir Hcl 1,000 Mg Tablet PO BID [facility] Protocol Objective - Vital Signs Vital signs: Vital Signs Temp 97.8 F 07/25/23 20:00 Pulse 82 07/26/23 08:36 Resp 18 07/26/23 04:00 BP 116/75 07/26/23 04:00 Pulse Ox 99 07/26/23 04:00 FiO2 Intake & Output 07/25/23 07/26/23 07/26/23 18:59 06:59 18:59 Intake Total 1036 20 Balance 1036 20 Intake: IV 20 20 Invasive Line 1 20 20 Oral 1016 Other: Voiding Method Bedpan Toilet # Voids 2 1 # Bowel Movements 1 - Exam GENERAL: The patient is alert and oriented x3, not in any acute distress. Well developed, well nourished. HEENT: Pupils are round and equally reacting to light. EOMI. No scleral icterus. No conjunctival pallor. Normocephalic, atraumatic. No pharyngeal erythema. No thyromegaly. CARDIOVASCULAR: S1 and S2 present. No murmurs, rubs, or gallops. -PULMONARY: Chest is clear to auscultation, scattered wheezing , no crackles. ABDOMEN: Soft, nontender, nondistended, normoactive bowel sounds. No palpable organomegaly. MUSCULOSKELETAL: No joint swelling or deformity. EXTREMITIES: No cyanosis, clubbing, or pedal edema. NEUROLOGICAL: Gross neurological examination did not reveal any focal deficits. SKIN: No rashes. no petechiae. - Labs CBC & Chem 7: 07/25/23 06:47 07/25/23 06:47 Labs: Abnormal Lab Results - Last 24 Hours (Table) 07/25/23 07/25/23 07/25/23 Range/Units 06:47 11:28 16:28 POC Glucose (mg/dL) 287 H 275 H (70-110) mg/dL HDL Cholesterol 60.70 H (40.00-60.00) mg/dL 07/25/23 07/26/23 Range/Units 20:05 06:07 POC Glucose (mg/dL) 373 H 144 H (70-110) mg/dL HDL Cholesterol (40.00-60.00) mg/dL Assessment and Plan Assessment: Right shoulder pain/chest pain with right upper extremity rash along the medial side, no events mildly elevated troponin, rule out cardiac causes/NSTEMI Acute COPD exacerbation Mildly acute on chronic hypoxic respiratory failure Atrial tachycardia with short IN interval Coronary artery disease s/p stent History of arctic stenosis s/p TAVR Obesity with BMI of 36.6 History of depression and anxiety, no acute process. Plan: Start valacyclovir, [place] and ID consult with isolation Continue with aspirin Cardiology consult cardiothoracic consult patient and kiahter at bed side were counseled about the importance of follow- up with appointment prednisone 5 mg daily Continue breathing treatment and bronchodilator Labs and medication were reviewed.. Continue same treatment. Continue with symptomatic treatment. Resume home medication. Monitor labs and vitals. DVT and GI prophylaxis. Further recommendations as per clinical course of the patient DVT prophylaxis: Subcutaneous heparin GI Prophylaxis: Pepcid Prognosis is guarded
[2023-07-26] MEDS: HYDROcodone/APAP 5-325MG 1 EACH TAB PO STA (10:33)
[2023-07-26] MEDS: valACYclovir HCL 1,000 MG TABLET PO SCH ×2 (11:07→15:05)
--- NOTE | 2023-07-26 11:10 | P.PN ---
Subjective HISTORY OF PRESENT ILLNESS: This is a 63-year-old female with a past medical history significant for coronary artery disease, COPD on home oxygen, bicuspid aortic valve with severe stenosis, hypertension, hyperlipidemia, and former nicotine dependence. Patient follows in the office with Dr. Hinkle. We have been asked to see the patient in consultation for chest pain. Patient examined at the bedside in the emergency room. Patient's is present. Patient states over the past couple days she has been having right arm pain. She states the pain goes into her shoulder. She states it is worse with movement. The pain is also worse with palpation of her right arm. Her states he has been putting Biofreeze on her arm which has helped the pain but did not completely take it away. She currently denies any chest pain or pressure. She reports chronic shortness of breath. Denies any dizziness or lightheadedness. It is noted that the patient underwent cardiac catheterization in March 2023 with PCI of the proximal RCA. Patient apparently has been referred to the TAVR clinic multiple times. However the patient's says that she refuses to leave the house due to shortness of breath so she will not go to any appointments. He does report that she has a portable oxygen tank but she is too short of breath to follow-up for any doctors appointments. DIAGNOSTICS: - EKG reveals sinus mechanism with no signs of acute ischemia. - Chest xray negative for acute process. - Laboratory data: WBC 12.0. Hemoglobin 10.7. Platelet count 203. Sodium 136. Potassium 4.5. BUN 18. Creatinine 0.49. Troponin 0.043. 0.097. - Current home cardiac medications include lisinopril 10 mg daily, metoprolol succinate 25 mg twice a day, Lasix 40 mg daily, Farxiga 5 mg daily, Lipitor 40 mg at night, aspirin 81 mg daily. - Most recent echocardiogram obtained in October 2022 revealed ejection fraction 45%, mild pulmonary hypertension, mild MR, severe aortic stenosis with a peak gradient of 69 mmHg and a mean gradient of 46 mmHg, mild TR - Cardiac catheterization history: March 2023 with PCI of the proximal RCA 07/25/2023 Patient is status postcardiac catheterization yesterday with Dr. Hinkle revealing unchanged coronary artery disease including mid LAD 40 to 50% stenosis with patent proximal RCA stent. Patient examined this morning at the bedside. Patient denies chest pain or pressure. She currently denies shortness of breath. CT surgery was consulted yesterday for TAVR evaluation. Vital signs are stable. 07/26/2023 Patient examined this morning at bedside. Patient denies chest pain or pressure. She reports mild shortness of breath. Patient's oxygen requirements did increase to 8 L, from 5 L. Echocardiogram completed revealing ejection fraction 60 to 65%, critical aortic stenosis with mean gradient of 75 mmHg, trace MR. PHYSICAL EXAM: VITAL SIGNS: Reviewed. GENERAL: Well-developed in no acute distress. HEENT: Head is normocephalic. Pupils are equal, round. Sclerae anicteric. Mucous membranes of the mouth are moist. Neck supple. No JVD or thyromegaly LUNGS: Respirations even and unlabored. Lungs with expiratory wheezing noted throughout HEART: Mildly tachycardic. Regular rate and rhythm. S1 and S2 heard. Systolic murmur noted. ABDOMEN: Soft. Nondistended. Nontender. EXTREMITIES: Normal range of motion. No clubbing or cyanosis. Peripheral pulses intact. No lower extremity edema NEUROLOGIC: Awake and alert. Oriented x 3. ASSESSMENT: Right arm pain, appears musculoskeletal Non-STEMI, status post cardiac catheterization with no progression of CAD Coronary artery disease with previous PCI, most recently March 2023 with PCI of the proximal RCA Ischemic cardiomyopathy, ejection fraction 45%, with improved EF now 60 to 65% Severe aortic stenosis Mild pulmonary hypertension Hypertension Hyperlipidemia COPD Chronic hypoxic respiratory failure on home oxygen Former nicotine dependence PLAN: Continue current cardiac medications TAVR workup is ongoing Case discussed with CT surgery and Dr. Hinkle. Possible BAV this admission versus TAVR Further recommendations pending patient course Nurse practitioner note has been reviewed by physician. Signing provider agrees with the documented findings, assessment, and plan of care documented by [employer] RE[employer] as a scribe. Objective - Vital Signs Vital signs: Vital Signs Temp 97.8 F 07/25/23 20:00 Pulse 82 07/26/23 08:36 Resp 18 07/26/23 04:00 BP 116/75 07/26/23 04:00 Pulse Ox 99 07/26/23 04:00 FiO2 Intake & Output 07/25/23 07/26/23 07/26/23 18:59 06:59 18:59 Intake Total 1036 20 Balance 1036 20 Intake: IV 20 20 Invasive Line 1 20 20 Oral 1016 Other: Voiding Method Bedpan Toilet # Voids 2 1 # Bowel Movements 1 - Labs CBC & Chem 7: 07/25/23 06:47 07/25/23 06:47 Labs: Abnormal Lab Results - Last 24 Hours (Table) 07/25/23 07/25/23 07/25/23 Range/Units 06:47 11:28 16:28 POC Glucose (mg/dL) 287 H 275 H (70-110) mg/dL HDL Cholesterol 60.70 H (40.00-60.00) mg/dL 07/25/23 07/26/23 Range/Units 20:05 06:07 POC Glucose (mg/dL) 373 H 144 H (70-110) mg/dL HDL Cholesterol (40.00-60.00) mg/dL
--- NOTE | 2023-07-26 11:14 | CT ---
EXAMINATION TYPE: CT TAVR Planning DATE OF EXAM: 07/26/2023 HISTORY: tavr CT DLP: 2630.5 mGycm Automated Exposure Control for Dose Reduction was Utilized. CONTRAST: CT scan of the chest, abdomen and pelvis is performed with IV Contrast, patient injected with 125 mL of Isovue 370. COMPARISON: none TECHNIQUE: Helical imaging obtained through the chest, abdomen and pelvis during arterial phase [facility] administration of radiographic contrast intravenously. FINDINGS: See report from [facility] regarding preprocedural planning CHEST: Lower Neck and Thyroid: No significant findings Lungs: No significant findings Central Airway: No significant findings Pleura: No significant findings Pulmonary Arteries: No significant findings Heart and Pericardium: No significant findings Lymph Nodes: No significant findings Mediastinum & Esophagus: Ascending thoracic aortic aneurysm measuring 4.7 cm AP dimension. AV Calcification Severity: [id number] ABDOMEN/PELVIS: Please note arterial phase of the imaging limits detailed evaluation of the solid abdominal organs. Liver: No significant findings Spleen: No significant findings Kidneys: No significant findings Adrenal Glands: No significant findings Pancreas: No significant findings Gallbladder: No significant findings Bowel and Mesentery: No significant findings Lymph Nodes: No significant findings Urinary Bladder: No significant findings Pelvic Organs: No significant findings Other: No significant findings Other Lines/Tubes/Devices/Hardware: None IMPRESSION: 1. Ascending thoracic aortic aneurysm with mild to moderate AV valve calcification severity.
--- NOTE | 2023-07-26 11:27 | P.PN ---
Subjective Progress Note Date: 07/26/23 Principal diagnosis: Chest pain and shortness of breath. Pulmonary consult dated July 25, 2023. 63-year-old female well-known to our service. The patient has a history of chronic hypoxemic respiratory failure secondary to COPD, and is chronically oxygen dependent. The patient presented to the emergency room, on July 23, complaining of chest pain. The pain apparently was on the right side of her chest, and radiated into her right arm. The pain started on the prior . The patient does have a history of coronary disease, and has had stents placed in the last year. In addition, she admits to chronic shortness of breath, secondary to her severe COPD. The patient did go to the catheterization laboratory on July 23, and was found to have a 40 to 50% stenosis, in the mid LAD, with a patent proximal RCA stent. In addition, on echocardiogram, the patient was found to have severe aortic stenosis, with a valve surface area of 1.6 cm, and a gradient across the aortic valve, of 100 mmHg. Lab data includes a white count 11.9, hemoglobin 10.4, hematocrit 33.8, and a platelet count of 243,000. Sodium 136, potassium 4.6, chlorides 94, CO2 36, BUN 28, creatinine 0.6. The patient's troponin was 0.047, 0.097, and 0.043. Chest x-ray was unremarkable. Progress note dated July 26, 2023. 63-year-old female well-known to our service. She was seen yesterday in consultation. The patient presented with shortness of breath and chest pain. The patient was discovered to have severe aortic stenosis. Valve surface area 0.6 cm. She also has a significant gradient across aortic valve. Unfortunately, the patient's poor lung function, prevents a surgical repair of her aortic stenosis. Options would include a transcatheter aortic valve replacement, or balloon procedure. Even with conscious sedation, she is at risk for respiratory distress, and need for intubation and mechanical ventilation. Currently, her oxygen is set at 8 L/min. She is not receiving any IV fluids. Her PFTs were reviewed. No new labs today other than a glucose of 144. Objective - Vital Signs Vital signs: Vital Signs Temp 97.8 F 07/25/23 20:00 Pulse 82 07/26/23 08:36 Resp 18 07/26/23 04:00 BP 116/75 07/26/23 04:00 Pulse Ox 99 07/26/23 04:00 FiO2 Intake & Output 07/25/23 07/26/23 07/26/23 18:59 06:59 18:59 Intake Total 1036 20 Balance 1036 20 Intake: IV 20 20 Invasive Line 1 20 20 Oral 1016 Other: Voiding Method Bedpan Toilet # Voids 2 1 # Bowel Movements 1 - Exam No acute distress, oriented 3. The patient is currently on 8 L of oxygen. Saturations are 97 %. HEENT examination is grossly unremarkable. Mucous membranes are moist. No oral lesions. Neck supple. Full range of motion. No adenopathy thyromegaly or neck vein distention. Cardiovascular examination reveals regular rhythm rate. S1-S2 normal. No S3 or S4. No discernible murmur noted. Heart sounds are distant. Heart rate 82 bpm. Lungs reveal diminished bilateral breath sounds. Scattered rhonchi and wheezes are noted. No crackles. Breath sounds equal bilaterally. Saturations are 97% on 8 L. Abdomen soft but obese. Bowel sounds are noted. Extremities are intact. No cyanosis clubbing or edema. Skin is without rash or lesion. Neurologic examination is brief but nonfocal. - Labs CBC & Chem 7: 07/25/23 06:47 07/25/23 06:47 Labs: Abnormal Lab Results - Last 24 Hours (Table) 07/25/23 07/25/23 07/25/23 Range/Units 06:47 11:28 16:28 POC Glucose (mg/dL) 287 H 275 H (70-110) mg/dL HDL Cholesterol 60.70 H (40.00-60.00) mg/dL 07/25/23 07/26/23 Range/Units 20:05 06:07 POC Glucose (mg/dL) 373 H 144 H (70-110) mg/dL HDL Cholesterol (40.00-60.00) mg/dL Assessment and Plan Assessment: Coronary artery disease, involving the LAD, with 40 to 50% stenosis, and a patent proximal RCA stent. Severe aortic stenosis with a valve surface area of 0.6 cm. Severe chronic hypoxemic and hypercapnic respiratory failure, secondary to COPD. History of hyperlipidemia. History of hypertension. History of chronic low back pain. Obesity. Aortic valve stenosis. History of tracheobronchitis. Prior history of heavy tobacco use. Plan: Plan dated July 25, 2023. The patient is admitted with a possible non-ST segment elevation myocardial infarction. The patient went to the cardiac catheterization laboratory in July 23, and was found to have a 40 to 50% obstruction/stenosis of the LAD. In addition, the patient had a patent stent to the RCA. In addition, the patient was found to have severe aortic stenosis, with a significant gradient across the valve, and a valve surface area 0.6 cm. The patient in our opinion would not be a great candidate for surgery given the severity of her chronic lung disease. Nonetheless, we will follow along, and make recommendations were appropriate. Prognosis is certainly guarded. Plan dated July 26, 2023. The patient's lung function are rather poor. The patient will be at high operative risk for any surgical procedure, even 1 done with conscious sedation. Labs, x-rays, and medications are reviewed. The patient is in the process of deciding what she would want done. She has been seen by cardiothoracic surgery. We will continue to follow and make recommendations along the way. Currently, she is using oxygen at 8 L/min. It can be weaned down. Time with Patient: Less than 30
[2023-07-26 11:39] LABS: Glucose,Whole Blood 165 mg/dL (70-110)
[2023-07-26] MEDS: HYDROcodone/APAP 5-325MG 1 EACH TAB PO PRN (15:05)
[2023-07-26 17:11] LABS: Glucose,Whole Blood 244 mg/dL (70-110)
[2023-07-26 20:09] LABS: Glucose,Whole Blood 186 mg/dL (70-110)
[2023-07-26] MEDS: PREGABALIN 75 MG CAP PO SCH (20:31)
--- NOTE | 2023-07-26 23:08 | P.CONS ---
History of Present Illness - Reason for Consult Consult date: 07/26/23 Rash Requesting physician: Glenn E Sheet - Chief Complaint Rash and pain and swelling to the right upper arm x few days - History of Present Illness Patient is a 63-year-old female past medical history significant for COPD coronary artery disease MT former smoker presenting to the hospital 3 days ago for evaluation of chest pain on the right side of her chest and is also complaining of pain to the right upper arm symptoms started 2 days before presentation to the hospital she was also complaining of associated shortness of breath and the patient has been evaluated by pulmonary and cardiology services patient did have a cardiac cath on 07/24/2023 with 40 to 50% stenosis to LAD no intervention was done patient subsequently noticed to developing a rash to the right upper extremity prompting this consultation patiently complaining of mostly sharp burning pain to the rash area intensity is almost 10 out of 10 without any radiation rash does have some blister but no significant redness or drainage patient denies any nausea vomiting abdominal pain or diarrhea on presentation to the hospital patient was afebrile and no fever have been recorded subsequently patient was not tachycardic or hypotensive she was hypoxic and currently on 5 L nasal cannula oxygen patient did have a white count of 12,000 creatinine was normal troponin was mildly elevated chest x-ray no acute finding in the chest CT of the chest abdominal pelvis ascending thoracic aortic aneurysm with mild to moderate LV wall calcification severity Review of Systems Positive point and negatives has been mentioned in the HPI, complete review of systems was performed and all other systems are negative Past Medical History Past Medical History: Coronary Artery Disease (CAD), Chest Pain / Angina, COPD, Myocardial Infarction (MT), Respiratory Disorder Additional Past Medical History / Comment(s): Chronic hypercapnic respiratory failure, home oxygen at 5L/[place] ATC, tracheobronchitis, severe bicuspid aortic valve stenosis, chronic low back pain, DJD History of Any Multi-Drug Resistant Organisms: None Reported Past Surgical History: Breast Surgery, Heart Catheterization With Stent, Tubal Ligation Additional Past Surgical History / Comment(s): Bilateral breast reductions, bilateral cataract removals. Past Anesthesia/Blood Transfusion Reactions: No Reported Reaction Date of Last Stent Placement:: 04/2023 Smoking Status: Former smoker Past Alcohol Use History: None Reported Past Drug Use History: None Reported - Past Family History Father History Unknown: Yes Mother Family Medical History: Congestive Heart Failure (CHF), Diabetes Mellitus Medications and Allergies Home Medications Medication Instructions Recorded Confirmed Type Albuterol Inhaler [Ventolin Hfa 2 puff INHALATION RT-Q4H PRN 04/09/22 07/24/23 History Inhaler] Atorvastatin [Lipitor] 40 mg PO HS 04/09/22 07/24/23 History Aspirin 81 mg PO DAILY 30 Days #30 tab 04/12/22 07/24/23 Rx Sertraline [Zoloft] 100 mg PO DAILY 06/15/22 07/24/23 History Budesonide/Formoterol Fumarate 2 puff INHALATION RT-BID 07/13/22 07/24/23 History [Symbicort 160-4.5 Mcg Inhaler] Ipratropium-Albuterol Nebulize 3 ml INHALATION RT-QID PRN 09/23/22 07/24/23 History [Duoneb 0.5 mg-3 mg/3 ml Soln] Dapagliflozin Propanediol [Farxiga] 5 mg PO DAILY 11/19/22 07/24/23 History Yupelri 175mcg/3ml 175 mcg INHALATION RT-DAILY 11/19/22 07/24/23 History hydrOXYzine HCL [Atarax] 25 mg PO BID 11/19/22 07/24/23 History Tiotropium Gile [Spiriva 1 cap INHALATION RT-DAILY 04/19/23 07/24/23 History Handihaler] predniSONE 5 mg PO DAILY 04/19/23 07/24/23 History Acetaminophen Tab [Tylenol] 650 mg PO Q4HR PRN tab 05/18/23 07/24/23 Rx Ipratropium-Albuterol Nebulize 3 ml INHALATION RT-QID #100 each 05/18/23 07/24/23 Rx [Duoneb 0.5 mg-3 mg/3 ml Soln] Meloxicam [Mobic] 7.5 mg PO BID 06/30/23 07/24/23 History Nitroglycerin Sl Tabs [Nitrostat] 0.4 mg SL Q5M PRN 07/24/23 07/24/23 History Furosemide [Lasix] 40 mg PO BID #60 tab 08/09/23 Rx Metoprolol Succinate (ER) [Toprol 25 mg PO TID #60 tab 08/09/23 Rx XL] Nystatin 100,000 Unit/ml Susp 500,000 unit PO QID 7 Days #140 ml 08/09/23 Rx [Mycostatin Oral Susp] Potassium Chloride ER [K-Dur 20] 20 meq PO BID #60 tab 08/09/23 Rx Allergies Allergy/AdvReac Type Severity Reaction Status Date / Time No Known Allergies Allergy Verified 07/24/23 07:14 Physical Exam Vitals: Vital Signs Temp Pulse Pulse Pulse Resp BP Pulse Ox 07/26/23 12:32 84 20 07/26/23 12:21 96 07/26/23 12:02 87 16 91/60 96 07/26/23 09:09 97.8 F 78 16 90/55 94 L 07/26/23 08:36 82 07/26/23 08:23 88 07/26/23 04:00 92 18 116/75 99 07/26/23 02:00 78 20 07/26/23 00:00 78 20 107/69 99 07/25/23 21:50 93 L 07/25/23 20:58 106 H 07/25/23 20:50 95 07/25/23 20:48 110 H 07/25/23 20:00 97.8 F 111 H 30 H 99/64 94 L 07/25/23 16:00 97.8 F 87 16 100/52 94 L 07/25/23 15:32 90 18 07/25/23 15:22 92 18 Intake and Output 07/25/23 07/26/23 07/26/23 22:59 06:59 14:59 Intake Total 368 10 Balance 368 10 Intake: IV 10 10 Invasive Line 1 10 10 Oral 358 Other: Voiding Method Toilet Toilet # Voids 2 1 GENERAL DESCRIPTION: Middle-aged female lying in bed, no distress. No tachypnea or accessory muscle of respiration use. HEENT: Shows Pallor , no scleral icterus. Oral mucous membrane is dry. No pharyngeal erythema or thrush NECK: Trachea central, no thyromegaly. LUNGS: Unlabored breathing. Coarse breath sounds bilaterally HEART: S1, S2, regular rate and rhythm. No loud murmur ABDOMEN: Right upper extremity with a vesicular rash in the T1 dermatome without any redness or drainage EXTREMITIES: No edema of feet. SKIN: No rash, no masses palpable. NEUROLOGICAL: The patient is awake, alert, oriented x3, mood and affect normal. Results CBC & Chem 7: 08/09/23 09:35 08/09/23 09:35 Labs: Abnormal Lab Results - Last 24 Hours (Table) 07/25/23 07/25/23 07/25/23 Range/Units 06:47 16:28 20:05 POC Glucose (mg/dL) 275 H 373 H (70-110) mg/dL HDL Cholesterol 60.70 H (40.00-60.00) mg/dL 07/26/23 07/26/23 Range/Units 06:07 11:37 POC Glucose (mg/dL) 144 H 165 H (70-110) mg/dL HDL Cholesterol (40.00-60.00) mg/dL Assessment and Plan (1) Rash Status: Acute Code(s): R21 - RASH AND OTHER NONSPECIFIC SKIN ERUPTION SNOMED Code(s): 131700966 (2) Zoster Status: Acute Code(s): B02.9 - ZOSTER WITHOUT COMPLICATIONS SNOMED Code(s): 2817576 Plan: 1patient presented to hospital with pain to the right side of the chest and right upper extremity not developing a rash which is a following T1 dermatome likely herpes zoster with no evidence of any secondary cellulitis 2-we will start the patient on Valtrex 1 g every 8 hours along with Lyrica for postherpetic neuralgia We will follow on clinical condition and cultures to further adjust medication if needed Thank you for this consultation we will follow the patient along with you Dictation was produced using [employer] dictation software. please excuse any grammatical, word or spelling errors. Time with Patient: Greater than 30
[2023-07-27 05:50] LABS: Glucose,Whole Blood 193 mg/dL (70-110)
[2023-07-27] MEDS ORDERED: HEPARIN SODIUM,PORCINE 10,000 UNIT in SODIUM CHLORIDE 0.9% 1,000 ML IRRIGATION PRN (07:00)
[2023-07-27] MEDS ORDERED: HEPARIN SODIUM,PORCINE (1 ML) 2,500 UNIT in SODIUM CHLORIDE 0.9% 250 ML IRRIGATION PRN (07:00)
[2023-07-27] MEDS ORDERED: NITROGLYCERIN SL TABS 0.4 MG TAB SUBLINGUAL PRN (07:42)
[2023-07-27] MEDS ORDERED: ALPRAZolam 0.5 MG TAB PO PRN (07:42)
[2023-07-27] MEDS ORDERED: ALPRAZolam 0.25 MG TAB PO PRN (07:42)
[2023-07-27] MEDS: ASPIRIN 325 MG TAB PO STA (08:38)
[2023-07-27] MEDS: ATORVASTATIN 80 MG TAB PO STA (08:39)
--- NOTE | 2023-07-27 10:58 | P.PN ---
Subjective Progress Note Date: 07/27/23 Principal diagnosis: Chest pain and shortness of breath. Pulmonary consult dated July 25, 2023. 63-year-old female well-known to our service. The patient has a history of chronic hypoxemic respiratory failure secondary to COPD, and is chronically oxygen dependent. The patient presented to the emergency room, on July 23, complaining of chest pain. The pain apparently was on the right side of her chest, and radiated into her right arm. The pain started on the prior . The patient does have a history of coronary disease, and has had stents placed in the last year. In addition, she admits to chronic shortness of breath, secondary to her severe COPD. The patient did go to the catheterization laboratory on July 23, and was found to have a 40 to 50% stenosis, in the mid LAD, with a patent proximal RCA stent. In addition, on echocardiogram, the patient was found to have severe aortic stenosis, with a valve surface area of 1.6 cm, and a gradient across the aortic valve, of 100 mmHg. Lab data includes a white count 11.9, hemoglobin 10.4, hematocrit 33.8, and a platelet count of 243,000. Sodium 136, potassium 4.6, chlorides 94, CO2 36, BUN 28, creatinine 0.6. The patient's troponin was 0.047, 0.097, and 0.043. Chest x-ray was unremarkable. Progress note dated July 26, 2023. 63-year-old female well-known to our service. She was seen yesterday in consultation. The patient presented with shortness of breath and chest pain. The patient was discovered to have severe aortic stenosis. Valve surface area 0.6 cm. She also has a significant gradient across aortic valve. Unfortunately, the patient's poor lung function, prevents a surgical repair of her aortic stenosis. Options would include a transcatheter aortic valve replacement, or balloon procedure. Even with conscious sedation, she is at risk for respiratory distress, and need for intubation and mechanical ventilation. Currently, her oxygen is set at 8 L/min. She is not receiving any IV fluids. Her PFTs were reviewed. No new labs today other than a glucose of 144. This note dated July 27, 2023. 63-year-old female seen today in room 360. The patient has a history of severe aortic stenosis, and, she is to have a balloon valvuloplasty today by cardiology. The patient is nervous about the procedure. She continues on 5 L by nasal cannula. She is getting saline at 90 cc an hour. Her family members are in the room. No new labs today, other than a glucose of 193. Objective - Vital Signs Vital signs: Vital Signs Temp 98.8 F 07/27/23 08:28 Pulse 101 H 07/27/23 09:35 Resp 20 07/27/23 09:35 BP 121/77 07/27/23 08:28 Pulse Ox 92 L 07/27/23 08:28 FiO2 Intake & Output 07/26/23 07/27/23 07/27/23 18:59 06:59 18:59 Intake Total 20 20 10 Balance 20 20 10 Intake: IV 20 20 10 Invasive Line 1 20 20 10 Other: Voiding Method Toilet Toilet Toilet # Voids 1 1 # Bowel Movements 2 2 - Exam No acute distress, oriented 3. The patient is currently on 5 L of oxygen. Saturations are 95 %. HEENT examination is grossly unremarkable. Mucous membranes are moist. No oral lesions. Neck supple. Full range of motion. No adenopathy thyromegaly or neck vein distention. Cardiovascular examination reveals regular rhythm rate. S1-S2 normal. No S3 or S4. No discernible murmur noted. Heart sounds are distant. Heart rate 99 bpm. Lungs reveal diminished bilateral breath sounds. Scattered rhonchi and wheezes are noted. No crackles. Breath sounds equal bilaterally. Saturations are 95% on 5 L. Abdomen soft but obese. Bowel sounds are noted. Extremities are intact. No cyanosis clubbing or edema. Skin is without rash or lesion. Neurologic examination is brief but nonfocal. - Labs CBC & Chem 7: 07/25/23 06:47 07/25/23 06:47 Labs: Abnormal Lab Results - Last 24 Hours (Table) 07/26/23 07/26/23 07/26/23 Range/Units 11:37 17:10 20:08 POC Glucose (mg/dL) 165 H 244 H 186 H (70-110) mg/dL 07/27/23 Range/Units 05:49 POC Glucose (mg/dL) 193 H (70-110) mg/dL Assessment and Plan Assessment: Coronary artery disease, involving the LAD, with 40 to 50% stenosis, and a patent proximal RCA stent. Severe aortic stenosis with a valve surface area of 0.6 cm. Severe chronic hypoxemic and hypercapnic respiratory failure, secondary to COPD. History of hyperlipidemia. History of hypertension. History of chronic low back pain. Obesity. Aortic valve stenosis. History of tracheobronchitis. Prior history of heavy tobacco use. Plan: Plan dated July 25, 2023. The patient is admitted with a possible non-ST segment elevation myocardial infarction. The patient went to the cardiac catheterization laboratory in July 23, and was found to have a 40 to 50% obstruction/stenosis of the LAD. In add ition, the patient had a patent stent to the RCA. In addition, the patient was found to have severe aortic stenosis, with a significant gradient across the valve, and a valve surface area 0.6 cm. The patient in our opinion would not be a great candidate for surgery given the severity of her chronic lung disease. Nonetheless, we will follow along, and make recommendations were appropriate. Prognosis is certainly guarded. Plan dated July 26, 2023. The patient's lung function are rather poor. The patient will be at high operative risk for any surgical procedure, even 1 done with conscious sedation. Labs, x-rays, and medications are reviewed. The patient is in the process of deciding what she would want done. She has been seen by cardiothoracic surgery. We will continue to follow and make recommendations along the way. Currently, she is using oxygen at 8 L/min. It can be weaned down. Plan dated July 27, 2023. The patient is scheduled to have a balloon valvuloplasty today. It will be done by cardiology. The patient was not excited about having a transcatheter aortic valve replacement, or surgical aortic valve replacement. In fact, in my opinion, the patient will be extremely high risk, given her very poor lung function. Labs, x-rays, medications are reviewed. We will continue to follow the patient, and make recommendations along the way. She is currently on 5 L by nasal cannula. Time with Patient: Less than 30
[2023-07-27 11:30] LABS: Glucose,Whole Blood 129 mg/dL (70-110)
--- NOTE | 2023-07-27 11:49 | P.PN ---
Subjective HISTORY OF PRESENT ILLNESS: This is a 63-year-old female with a past medical history significant for coronary artery disease, COPD on home oxygen, bicuspid aortic valve with severe stenosis, hypertension, hyperlipidemia, and former nicotine dependence. Patient follows in the office with Dr. Hinkle. We have been asked to see the patient in consultation for chest pain. Patient examined at the bedside in the emergency room. Patient's is present. Patient states over the past couple days she has been having right arm pain. She states the pain goes into her shoulder. She states it is worse with movement. The pain is also worse with palpation of her right arm. Her states he has been putting Biofreeze on her arm which has helped the pain but did not completely take it away. She currently denies any chest pain or pressure. She reports chronic shortness of breath. Denies any dizziness or lightheadedness. It is noted that the patient underwent cardiac catheterization in March 2023 with PCI of the proximal RCA. Patient apparently has been referred to the TAVR clinic multiple times. However the patient's says that she refuses to leave the house due to shortness of breath so she will not go to any appointments. He does report that she has a portable oxygen tank but she is too short of breath to follow-up for any doctors appointments. DIAGNOSTICS: - EKG reveals sinus mechanism with no signs of acute ischemia. - Chest xray negative for acute process. - Laboratory data: WBC 12.0. Hemoglobin 10.7. Platelet count 203. Sodium 136. Potassium 4.5. BUN 18. Creatinine 0.49. Troponin 0.043. 0.097. - Current home cardiac medications include lisinopril 10 mg daily, metoprolol succinate 25 mg twice a day, Lasix 40 mg daily, Farxiga 5 mg daily, Lipitor 40 mg at night, aspirin 81 mg daily. - Most recent echocardiogram obtained in October 2022 revealed ejection fraction 45%, mild pulmonary hypertension, mild MR, severe aortic stenosis with a peak gradient of 69 mmHg and a mean gradient of 46 mmHg, mild TR - Cardiac catheterization history: March 2023 with PCI of the proximal RCA 07/25/2023 Patient is status postcardiac catheterization yesterday with Dr. Hinkle revealing unchanged coronary artery disease including mid LAD 40 to 50% stenosis with patent proximal RCA stent. Patient examined this morning at the bedside. Patient denies chest pain or pressure. She currently denies shortness of breath. CT surgery was consulted yesterday for TAVR evaluation. Vital signs are stable. 07/26/2023 Patient examined this morning at bedside. Patient denies chest pain or pressure. She reports mild shortness of breath. Patient's oxygen requirements did increase to 8 L, from 5 L. Echocardiogram completed revealing ejection fraction 60 to 65%, critical aortic stenosis with mean gradient of 75 mmHg, trace MR. 07/27/2023 Patient examined this morning at the bedside. Patient currently denies chest pain or pressure. She denies shortness of breath. Patient was evaluated by infectious disease yesterday and was started on Valtrex. PHYSICAL EXAM: VITAL SIGNS: Reviewed. GENERAL: Well-developed in no acute distress. HEENT: Head is normocephalic. Pupils are equal, round. Sclerae anicteric. Mucous membranes of the mouth are moist. Neck supple. No JVD or thyromegaly LUNGS: Respirations even and unlabored. Lungs with expiratory wheezing noted throughout HEART: Mildly tachycardic. Regular rate and rhythm. S1 and S2 heard. Systolic murmur noted. ABDOMEN: Soft. Nondistended. Nontender. EXTREMITIES: Normal range of motion. No clubbing or cyanosis. Peripheral pulses intact. No lower extremity edema NEUROLOGIC: Awake and alert. Oriented x 3. ASSESSMENT: Right arm pain, appears musculoskeletal Non-STEMI, status post cardiac catheterization with no progression of CAD Coronary artery disease with previous PCI, most recently March 2023 with PCI of the proximal RCA Ischemic cardiomyopathy, ejection fraction 45%, with improved EF now 60 to 65% Severe aortic stenosis Mild pulmonary hypertension Hypertension Hyperlipidemia COPD Chronic hypoxic respiratory failure on home oxygen Former nicotine dependence Right upper extremity shingles PLAN: Continue current cardiac medications TAVR workup is ongoing. CT surgery following Patient to undergo aortic valve balloon valvuloplasty today with Dr. Hinkle Further recommendations pending patient course Nurse practitioner note has been reviewed by physician. Signing provider agrees with the documented findings, assessment, and plan of care documented by TRAFFIC OPERATIONS MANAGER as a scribe. Objective - Vital Signs Vital signs: Vital Signs Temp 98.4 F 07/27/23 11:29 Pulse 95 07/27/23 11:17 Resp 20 07/27/23 11:17 BP 85/51 07/27/23 11:17 Pulse Ox 87 L 07/27/23 11:17 FiO2 Intake & Output 07/26/23 07/27/23 07/27/23 18:59 06:59 18:59 Intake Total 20 20 10 Balance 20 20 10 Intake: IV 20 20 10 Invasive Line 1 20 20 10 Other: Voiding Method Toilet Toilet Toilet # Voids 1 1 # Bowel Movements 2 2 - Labs CBC & Chem 7: 07/25/23 06:47 07/25/23 06:47 Labs: Abnormal Lab Results - Last 24 Hours (Table) 07/26/23 07/26/23 07/27/23 Range/Units 17:10 20:08 05:49 POC Glucose (mg/dL) 244 H 186 H 193 H (70-110) mg/dL 07/27/23 Range/Units 11:28 POC Glucose (mg/dL) 129 H (70-110) mg/dL
--- NOTE | 2023-07-27 11:58 | P.PN ---
Subjective This is a pleasant 62 years old female with past medical history of multiple medical problems including COPD and chronic hypoxic respiratory failure on 5 L oxygen at home and she follows up with Dr. MACARIO for her COPD. Other medical problems including aortic stenosis status post TAVR, coronary artery disease s/p stent and depression and anxiety. Patient presents because of pain in her right shoulder radiating to her right arm and right chest for a few days since , 110/10 in severity, no history of trauma or fall. Pain described as nonspecific with no precipitating or relieving factors. She denies dyspnea she has dry cough. She is using 5 L of oxygen at home. No change in urine or bowel habits. No headache dizziness weakness or numbness. She denies current smoking alcohol or illicit drugs Patient is hemodynamically stable, afebrile She has unremarkable CBC, INR, BMP, liver enzymes, lipase Troponin is elevated 0.04 Chest x-ray is negative for acute process EKG showing atrial tachycardia with short CT interval but no significant ST-T changes. 07/25/2023 Patient is status post cardiac cath yesterday showing mid LAD stenosis 40-50% with patent RCA stent, also shows evidence of severe aortic stenosis, therefore cardiothoracic surgery team were consulted however patient is known not to follow-up on patient, as confirmed with the patient and daughter at bedside today who states that her mom usually go home call Dr. trejo isn't canceled her appointment and she does not follow up Further workup per cardiothoracic surgery team is requested here On admission yesterday she has limited air entry and she was placed on IV Solu- Medrol or acute COPD exacerbation, whiletoday air flow is much better although she has scattered wheezing and she still mildly tachypneic and therefore we consulted pulmonary service currently she is placed on prednisone 5 mg. she is to have mild to moderate right shoulder pain mostly related to her cardiac disease. Some elements of osteoarthritis. her heparin drip was stopped , 07/26/2023 Patient breathing is better, no chest pain today But she still complaining from more severe right shoulder pain. Patient has this pain improved with the steroids but when switched to oral prednisone 5 mg the pain increased today again. She has more rash in her medial arm and forearm and the arm. For short distance with maculopapular rash with possible some vesicles been forming with the pain and tenderness goes with the rash and around it, signs suspicious for shingles. Therefore we are going to start her on [place] for pain management and valacyclovir and asked ID team to reevaluate. Also will put on isolation till cleared. She is hemodynamically stable She is being evaluated by cardiothoracic surgery team as well. 07/27/2023 Patient is awake and alert she denies chest pain but she still complaining from right shoulder pain and neuropathic pain along her rash in the right armpit and the surrounding skin down to the left wrist along the medial side, rash is getting somewhat crusted partially. Breathing is stable However through the day her blood pressure became on the low side She is getting normal saline running at 90 mL/h Cardiology team and planning for balloon valvuloplasty for her severe aortic stenosis She is currently covered with valacyclovir, Lyrica, prednisone 5 mg Oral Lasix and Farxiga Objective - Vital Signs Vital signs: Vital Signs Temp 98.4 F 07/27/23 11:29 Pulse 75 07/27/23 11:52 Resp 20 07/27/23 11:52 BP 82/56 07/27/23 11:47 Pulse Ox 90 L 07/27/23 11:38 FiO2 Intake & Output 07/26/23 07/27/23 07/27/23 18:59 06:59 18:59 Intake Total 20 20 10 Balance 20 20 10 Intake: IV 20 20 10 Invasive Line 1 20 20 10 Other: Voiding Method Toilet Toilet Toilet # Voids 1 1 # Bowel Movements 2 2 - Exam GENERAL: The patient is alert and oriented x3, not in any acute distress. Well developed, well nourished. HEENT: Pupils are round and equally reacting to light. EOMI. No scleral icterus. No conjunctival pallor. Normocephalic, atraumatic. No pharyngeal erythema. No thyromegaly. CARDIOVASCULAR: S1 and S2 present. No murmurs, rubs, or gallops. -PULMONARY: Chest is clear to auscultation, scattered wheezing , no crackles. ABDOMEN: Soft, nontender, nondistended, normoactive bowel sounds. No palpable organomegaly. MUSCULOSKELETAL: No joint swelling or deformity. EXTREMITIES: No cyanosis, clubbing, or pedal edema. NEUROLOGICAL: Gross neurological examination did not reveal any focal deficits. SKIN: No rashes. no petechiae. - Labs CBC & Chem 7: 07/25/23 06:47 07/25/23 06:47 Labs: Abnormal Lab Results - Last 24 Hours (Table) 07/26/23 07/26/23 07/27/23 Range/Units 17:10 20:08 05:49 POC Glucose (mg/dL) 244 H 186 H 193 H (70-110) mg/dL 07/27/23 Range/Units 11:28 POC Glucose (mg/dL) 129 H (70-110) mg/dL Assessment and Plan Assessment: Right shoulder pain/chest pain with right upper extremity rash along the medial side, shingles severe aortic stenosis Borderline hypotension mildly elevated troponin, most likely related to demand supply mismatch Acute COPD exacerbation. Significantly improved Mildly acute on chronic hypoxic respiratory failure. Resolved Atrial tachycardia with short CT interval Coronary artery disease s/p stent History of arctic stenosis s/p TAVR Obesity with BMI of 36.6 History of depression and anxiety, no acute process. Plan: Start valacyclovir, Lyrica, And ID consult with isolation Continue with aspirin Cardiology consult, with plan for possible balloon valvuloplasty cardiothoracic consult patient and kiahter at bed side were counseled about the importance of follow- up with appointment prednisone 5 mg daily Continue breathing treatment and bronchodilator Labs and medication were reviewed.. Continue same treatment. Continue with symptomatic treatment. Resume home medication. Monitor labs and vitals. DVT a nd GI prophylaxis. Further recommendations as per clinical course of the patient DVT prophylaxis: Subcutaneous heparin GI Prophylaxis: Pepcid Prognosis is guarded
[2023-07-27] MEDS: SODIUM CHLORIDE 0.9% 1,000 ML in EMPTY BAG 1 BAG IV SCH (12:16)
[2023-07-27 12:47] LABS: Basophils # (A) 0.1 k/uL (0-0.2); Basophils % (A) 0 %; Eosinophils # (A) 0.3 k/uL (0-0.7); Eosinophils % (A) 2 %; HCT 33.6 % (34.0-46.0); HGB 10.1 gm/dL (11.4-16.0); Hypochromasia Moderate; Lymphocytes # (A) 0.9 k/uL (1.0-4.8); Lymphocytes % (A) 7 %; MCH 30.3 pg (25.0-35.0); Macrocytosis Slight; Mean Platelet Volume 7.5; Monocytes # (A) 0.9 k/uL (0-1.0); Monocytes % (A) 7 %; Neutrophils # (A) 10.3 k/uL (1.3-7.7); Neutrophils % (A) 81 %; Platelet Count 271 k/uL (150-450); RBC 3.33 m/uL (3.80-5.40); RDW 14.4 % (11.5-15.5); WBC 12.7 k/uL (3.8-10.6)
[2023-07-27 13:23] LABS: ALT 15 U/L (4-34); AST 19 U/L (14-36); African American GFR (CKD) 58 (>60 ml/min/1.73 sqM); Albumin 3.1 g/dL (3.5-5.0); Alkaline Phosphatase 125 U/L (38-126); Anion Gap 2 mmol/L; Blood Urea Nitrogen 34 mg/dL (7-17); Calcium 8.9 mg/dL (8.4-10.2); Carbon Dioxide 37 mmol/L (22-30); Chloride 97 mmol/L (98-107); Glucose 127 mg/dL (74-99); Non-African American GFR(CKD) 50 (>60 ml/min/1.73 sqM); Potassium 4.4 mmol/L (3.5-5.1); Sodium 136 mmol/L (137-145); Total Bilirubin 0.4 mg/dL (0.2-1.3); Total Protein 5.5 g/dL (6.3-8.2)
[2023-07-27 14:50] LABS: Glucose,Whole Blood 243 mg/dL (70-110)
[2023-07-27] MEDS: NOREPINEPHRINE 4 MG in SODIUM CHLORIDE 0.9% 250 ML IV SCH (14:55)
--- NOTE | 2023-07-27 15:17 | CDI ---
Documentation Clarification Form Date: 07/27/2023 02:33:25 PM From: Osiris Marroquin RN CCDS Phone: [phone] Admit Date: 07/24/2023 06:45:00 AM Patient Name: Blanka Porras Visit Number: [id number] Discharge Date: ATTENTION: The Clinical Documentation Specialists (CDI) and [facility] Coding Staff appreciate your assistance in clarifying documentation. Please respond to the clarification below the line at the bottom and electronically sign. The CDI & [facility] Coding staff will review the response and follow-up if needed. Please note: Queries are made part of the Legal Health Record. If you have any questions, please contact the author of this message via ITS. Dr. Elizabeth E Sheet Your patient has troponin level(s) of: 0.043; 0.097; 0.047, found in Lab values in [facility], 07/23. Please clarify if there is an additional diagnosis and/or clinical significance related to this value. Patient history/risk factors: 63-year-old female presents to the ED with chest pain that is on the right side of her chest and into right arm. Medical History: COPD on home oxygen, CAD, Angina and low back pain. 07/23, ED note. Clinical indicators: VVS, 07/23: B/P 138/87; HR 113; Temp 97.8 F oral ; RR 20; SpO2 97% 6L nasal cannula Labs: Troponin 07/23: 0.043 0.097 0.047 Triglycerides 79.90 Cholesterol 188.00 LDL Cholesterol, Calc 111.3 VLDL Cholesterol, Calc 15.98; HDL Cholesterol 60.70; Cholesterol /HDL Ratio 60.70. ECHO, 07/24: Left ventricular ejection fraction 60-65%. Moderately increased left ventricular wall thickness. Critical aortic stenosis with mean gradient 75mmHg. Trace mitral regurgitation. Moderately dilated ascending aorta. Cardiac Catheterization, 07/23: CAD as described above including mid LAD 40-50% stenosis with patent proximal RCA stent. Cardiology note, 07/26 : Non-STEMI, status post cardiac catheterization with no progression of CAD Coronary artery disease with previous PCI, most recently March 2023 with PCI of the proximal RCA Ischemic cardiomyopathy, ejection fraction 45%, with improved EF now 60 to 65% Severe aortic stenosis. Treatment: 07/23 Cardiac Catheterization.; Is there an additional diagnosis and/or clinical significance related to the above lab result/information: [ ] Type 2 OK due to (specify cause _sever aortic stenosis___) [ ] Non-ischemic with acute myocardial injury [ ] No additional diagnosis/Not clinically significant [ ] Other, please specify [ ] Unable to determine Reference: [employer] Fourth [place] Definition of Myocardial Infraction Elevated Cardiac Troponin >99th percentile with Troponin rise and/or fall With Acute ischemia Acute Myocardial Infarction Atherosclerosis thrombosis Type I OK Oxygen supply and demand imbalance Type II OK (Please indicate etiology) Without acute ischemia Acute Myocardial Injury Query answered 07/27 Medicine note, Dr. Andres Dumont MD: "Non- STEMI, s/p cardiac catheterization with no progression of CAD." (Template Last Reviewed: October 2022) MTDD
[2023-07-27 17:17] LABS: Glucose,Whole Blood 283 mg/dL (70-110)
[2023-07-27 21:00] LABS: Glucose,Whole Blood 137 mg/dL (70-110)
[2023-07-27] MEDS: valACYclovir HCL 1,000 MG TABLET PO SCH (21:20)
[2023-07-27] MEDS: FAMOTIDINE 20 MG/2 ML VIAL IV SCH (21:21)
[2023-07-28 05:54] LABS: HGB 10.1 gm/dL (11.4-16.0); Hypochromasia Moderate; MCH 30.7 pg (25.0-35.0); MCHC 30.7 g/dL (31.0-37.0); MCV 100.3 fL (80.0-100.0); Macrocytosis Slight; Mean Platelet Volume 7.5; Platelet Count 283 k/uL (150-450); RBC 3.29 m/uL (3.80-5.40); RDW 14.6 % (11.5-15.5); WBC 12.5 k/uL (3.8-10.6)
[2023-07-28 06:05] LABS: African American GFR (CKD) 85 (>60 ml/min/1.73 sqM); Anion Gap 5 mmol/L; Blood Urea Nitrogen 35 mg/dL (7-17); Calcium 8.7 mg/dL (8.4-10.2); Carbon Dioxide 34 mmol/L (22-30); Chloride 98 mmol/L (98-107); Glucose 114 mg/dL (74-99); Magnesium 2.2 mg/dL (1.6-2.3); Non-African American GFR(CKD) 74 (>60 ml/min/1.73 sqM); Phosphorus 3.9 mg/dL (2.5-4.5); Potassium 3.9 mmol/L (3.5-5.1); Sodium 137 mmol/L (137-145)
[2023-07-28 06:43] LABS: Glucose,Whole Blood 131 mg/dL (70-110)
[2023-07-28] MEDS ORDERED: Potassium Replacement Protocol 1 EACH MISC MISCELLANE PRN (07:04)
[2023-07-28] MEDS: POTASSIUM CHLORIDE ER 20 MEQ TAB.ER PO SCH (08:08)
--- NOTE | 2023-07-28 10:09 | P.PN ---
Subjective Progress Note Date: 07/28/23 Principal diagnosis: Chest pain and shortness of breath. Pulmonary consult dated July 25, 2023. 63-year-old female well-known to our service. The patient has a history of chronic hypoxemic respiratory failure secondary to COPD, and is chronically oxygen dependent. The patient presented to the emergency room, on July 23, complaining of chest pain. The pain apparently was on the right side of her chest, and radiated into her right arm. The pain started on the prior . The patient does have a history of coronary disease, and has had stents placed in the last year. In addition, she admits to chronic shortness of breath, secondary to her severe COPD. The patient did go to the catheterization laboratory on July 23, and was found to have a 40 to 50% stenosis, in the mid LAD, with a patent proximal RCA stent. In addition, on echocardiogram, the patient was found to have severe aortic stenosis, with a valve surface area of 1.6 cm, and a gradient across the aortic valve, of 100 mmHg. Lab data includes a white count 11.9, hemoglobin 10.4, hematocrit 33.8, and a platelet count of 243,000. Sodium 136, potassium 4.6, chlorides 94, CO2 36, BUN 28, creatinine 0.6. The patient's troponin was 0.047, 0.097, and 0.043. Chest x-ray was unremarkable. Progress note dated July 26, 2023. 63-year-old female well-known to our service. She was seen yesterday in consultation. The patient presented with shortness of breath and chest pain. The patient was discovered to have severe aortic stenosis. Valve surface area 0.6 cm. She also has a significant gradient across aortic valve. Unfortunately, the patient's poor lung function, prevents a surgical repair of her aortic stenosis. Options would include a transcatheter aortic valve replacement, or balloon procedure. Even with conscious sedation, she is at risk for respiratory distress, and need for intubation and mechanical ventilation. Currently, her oxygen is set at 8 L/min. She is not receiving any IV fluids. Her PFTs were reviewed. No new labs today other than a glucose of 144. Progress note dated July 27, 2023. 63-year-old female seen today in room 360. The patient has a history of severe aortic stenosis, and, she is to have a balloon valvuloplasty today by cardiology. The patient is nervous about the procedure. She continues on 5 L by nasal cannula. She is getting saline at 90 cc an hour. Her family members are in the room. No new labs today, other than a glucose of 193. Progress note dated July 28, 2023. The patient is again seen in the intensive care unit, room 254. She continues on nasal O2 at 5 L. She is on norepinephrine at 3.7 mcg/min. She is getting saline at 90 cc an hour. The patient is planning to be taken back to the [facility], later today, for balloon valvuloplasty. Currently, she is reasonably stable. Current labs include a white count of 12.5, hemoglobin 10.1, hematocrit 33.0, and a platelet count of 283,000. Sodium 137, potassium 3.9, chloride 98, CO2 34, BUN 35, creatinine 0.85. Glucose is 131. Magnesium 2.2 calcium 8.7. Procalcitonin level is 0.33. Objective - Vital Signs Vital signs: Vital Signs Temp 97.4 F L 07/28/23 08:00 Pulse 104 H 07/28/23 10:00 Resp 30 H 07/28/23 10:00 BP 100/62 07/28/23 09:45 Pulse Ox 96 07/28/23 10:00 FiO2 Intake & Output 07/27/23 07/28/23 07/28/23 18:59 06:59 18:59 Intake Total 512.097 842.306 310.957 Output Total 0 1000 700 Balance 512.097 -157.694 -389.043 Weight 93.3 kg Intake: IV 10 180 Invasive Line 1 10 Sodium Chloride 0.9% 1, 180 000 ml In Empty Bag 1 bag @ 1 ML/KG/HR 90.718 mls/ hr IV .Q11H2M [facility] Rx#: [id number] Intake, IV Titration 12.097 242.306 130.957 Amount Norepinephrine 4 mg In 12.097 242.306 40.957 Sodium Chloride 0.9% 250 ml @ 0.03 MCG/KG/MIN 10. 369 mls/hr IV .Q24H [facility] Rx#:[id number] Sodium Chloride 0.9% 1, 90 000 ml In Empty Bag 1 bag @ 1 ML/KG/HR 90.718 mls/ hr IV .Q11H2M [facility] Rx#: [id number] Oral 490 600 Output: Urine 0 1000 700 Other: Voiding Method Toilet Bedside Commode Bedside Commode # Voids 1 - Exam No acute distress, oriented 3. The patient is currently on 5 L of oxygen. Saturations are 96 %. HEENT examination is grossly unremarkable. Mucous membranes are moist. No oral lesions. Neck supple. Full range of motion. No adenopathy thyromegaly or neck vein distention. Cardiovascular examination reveals regular rhythm rate. S1-S2 normal. No S3 or S4. No discernible murmur noted. Heart sounds are distant. Heart rate 100 bpm. Lungs reveal diminished bilateral breath sounds. Scattered rhonchi and wheezes are noted. No crackles. Breath sounds equal bilaterally. Saturations are 96 % on 5 L. Abdomen soft but obese. Bowel sounds are noted. Extremities are intact. No cyanosis clubbing or edema. Skin is without rash or lesion. Neurologic examination is brief but nonfocal. - Labs CBC & Chem 7: 07/28/23 05:20 07/28/23 05:20 Labs: Abnormal Lab Results - Last 24 Hours (Table) 07/27/23 07/27/23 07/27/23 Range/Units 11:28 12:24 12:24 WBC 12.7 H (3.8-10.6) k/uL RBC 3.33 L (3.80-5.40) m/uL Hgb 10.1 L (11.4-16.0) gm/dL Hct 33.6 L (34.0-46.0) % MCV 101.0 H (80.0-100.0) fL MCHC 30.0 L (31.0-37.0) g/dL Neutrophils # 10.3 H (1.3-7.7) k/uL Lymphocytes # 0.9 L (1.0-4.8) k/uL Sodium 136 L (137-145) mmol/L Chloride 97 L (98-107) mmol/L Carbon Dioxide 37 H (22-30) mmol/L BUN 34 H (7-17) mg/dL Creatinine 1.17 H (0.52-1.04) mg/dL Glucose 127 H (74-99) mg/dL POC Glucose (mg/dL) 129 H (70-110) mg/dL C-Reactive Protein (<1.0) mg/dL Total Protein 5.5 L (6.3-8.2) g/dL Albumin 3.1 L (3.5-5.0) g/dL Procalcitonin (0.02-0.09) ng/mL 07/27/23 07/27/23 07/27/23 Range/Units 14:48 16:09 16:09 WBC (3.8-10.6) k/uL RBC (3.80-5.40) m/uL Hgb (11.4-16.0) gm/dL Hct (34.0-46.0) % MCV (80.0-100.0) fL MCHC (31.0-37.0) g/dL Neutrophils # (1.3-7.7) k/uL Lymphocytes # (1.0-4.8) k/uL Sodium (137-145) mmol/L Chloride (98-107) mmol/L Carbon Dioxide (22-30) mmol/L BUN (7-17) mg/dL Creatinine (0.52-1.04) mg/dL Glucose (74-99) mg/dL POC Glucose (mg/dL) 243 H (70-110) mg/dL C-Reactive Protein 8.3 H (<1.0) mg/dL Total Protein (6.3-8.2) g/dL Albumin (3.5-5.0) g/dL Procalcitonin 0.33 H (0.02-0.09) ng/mL 07/27/23 07/27/23 07/28/23 Range/Units 17:15 20:58 05:20 WBC 12.5 H (3.8-10.6) k/uL RBC 3.29 L (3.80-5.40) m/uL Hgb 10.1 L (11.4-16.0) gm/dL Hct 33.0 L (34.0-46.0) % MCV 100.3 H (80.0-100.0) fL MCHC 30.7 L (31.0-37.0) g/dL Neutrophils # (1.3-7.7) k/uL Lymphocytes # (1.0-4.8) k/uL Sodium (137-145) mmol/L Chloride (98-107) mmol/L Carbon Dioxide (22-30) mmol/L BUN (7-17) mg/dL Creatinine (0.52-1.04) mg/dL Glucose (74-99) mg/dL POC Glucose (mg/dL) 283 H 137 H (70-110) mg/dL C-Reactive Protein (<1.0) mg/dL Total Protein (6.3-8.2) g/dL Albumin (3.5-5.0) g/dL Procalcitonin (0.02-0.09) ng/mL 07/28/23 07/28/23 Range/Units 05:20 06:41 WBC (3.8-10.6) k/uL RBC (3.80-5.40) m/uL Hgb (11.4-16.0) gm/dL Hct (34.0-46.0) % MCV (80.0-100.0) fL MCHC (31.0-37.0) g/dL Neutrophils # (1.3-7.7) k/uL Lymphocytes # (1.0-4.8) k/uL Sodium (137-145) mmol/L Chloride (98-107) mmol/L Carbon Dioxide 34 H (22-30) mmol/L BUN 35 H (7-17) mg/dL Creatinine (0.52-1.04) mg/dL Glucose 114 H (74-99) mg/dL POC Glucose (mg/dL) 131 H (70-110) mg/dL C-Reactive Protein (<1.0) mg/dL Total Protein (6.3-8.2) g/dL Albumin (3.5-5.0) g/dL Procalcitonin (0.02-0.09) ng/mL Assessment and Plan Assessment: Coronary artery disease, involving the LAD, with 40 to 50% stenosis, and a patent proximal RCA stent. Severe aortic stenosis with a valve surface area of 0.6 cm. Severe chronic hypoxemic and hypercapnic respiratory failure, secondary to COPD. History of hyperlipidemia. History of hypertension. History of chronic low back pain. Obesity. Aortic valve stenosis. History of tracheobronchitis. Prior history of heavy tobacco use. Plan: Plan dated July 25, 2023. The patient is admitted with a possible non-ST segment elevation myocardial infarction. The patient went to the cardiac catheterization laboratory in July 23, and was found to have a 40 to 50% obstruction/stenosis of the LAD. In addition, the patient had a patent stent to the RCA. In addition, the patient was found to have severe aortic stenosis, with a significant gradient across the valve, and a valve surface area 0.6 cm. The patient in our opinion would not be a great candidate for surgery given the severity of her chronic lung disease. Nonetheless, we will follow along, and make recommendations were appropriate. Prognosis is certainly guarded. Plan dated July 26, 2023. The patient's lung function are rather poor. The patient will be at high operative risk for any surgical procedure, even 1 done with conscious sedation. Labs, x-rays, and medications are reviewed. The patient is in the process of deciding what she would want done. She has been seen by cardiothoracic surgery. We will continue to follow and make recommendations along the way. Currently, she is using oxygen at 8 L/min. It can be weaned down. Plan dated July 27, 2023. The patient is scheduled to have a balloon valvuloplasty today. It will be done by cardiology. The patient was not excited about having a transcatheter aortic valve replacement, or surgical aortic valve replacement. In fact, in my opinion, the patient will be extremely high risk, given her very poor lung function. Labs, x-rays, medications are reviewed. We will continue to follow the patient, and make recommendations along the way. She is currently on 5 L by nasal cannula. Plan dated July 28, 2023. The patient is seen today in room 254. She is currently on oxygen at 5 L by nasal cannula. She continues on norepinephrine at 3.7 mcg/min. In addition, the patient is getting saline at 90 cc an hour. The patient is planning to be taken back to the catheterization laboratory, for balloon valvuloplasty. The patient has severe aortic stenosis with a valve surface area of 0.6 cm. Labs, x-rays, and medications are reviewed. Prognosis is guarded. The patient has very severe lung function. We will continue to follow and make recommendations along the way. Time with Patient: Greater than 30
[2023-07-28 11:34] LABS: Glucose,Whole Blood 118 mg/dL (70-110)
--- NOTE | 2023-07-28 14:41 | P.PN ---
Subjective Progress Note Date: 07/28/23 This is a pleasant 62 years old female with past medical history of multiple medical problems including COPD and chronic hypoxic respiratory failure on 5 L oxygen at home and she follows up with Dr. MAACRIO for her COPD. Other medical problems including aortic stenosis status post TAVR, coronary artery disease s/p stent and depression and anxiety. Patient presents because of pain in her right shoulder radiating to her right arm and right chest for a few days since , 110/10 in severity, no histor y of trauma or fall. Pain described as nonspecific with no precipitating or relieving factors. She denies dyspnea she has dry cough. She is using 5 L of oxygen at home. No change in urine or bowel habits. No headache dizziness weakness or numbness. She denies current smoking alcohol or illicit drugs Patient is hemodynamically stable, afebrile She has unremarkable CBC, INR, BMP, liver enzymes, lipase Troponin is elevated 0.04 Chest x-ray is negative for acute process EKG showing atrial tachycardia with short CA interval but no significant ST-T changes. 07/25/2023 Patient is status post cardiac cath yesterday showing mid LAD stenosis 40-50% with patent RCA stent, also shows evidence of severe aortic stenosis, therefore cardiothoracic surgery team were consulted however patient is known not to follow-up on patient, as confirmed with the patient and daughter at bedside today who states that her mom usually go home call Dr. trejo isn't canceled her appointment and she does not follow up Further workup per cardiothoracic surgery team is requested here On admission yesterday she has limited air entry and she was placed on IV Solu- Medrol or acute COPD exacerbation, whiletoday air flow is much better although she has scattered wheezing and she still mildly tachypneic and therefore we consulted pulmonary service currently she is placed on prednisone 5 mg. she is to have mild to moderate right shoulder pain mostly related to her cardiac disease. Some elements of osteoarthritis. her heparin drip was stopped , 07/26/2023 Patient breathing is better, no chest pain today But she still complaining from more severe right shoulder pain. Patient has this pain improved with the steroids but when switched to oral prednisone 5 mg the pain increased today again. She has more rash in her medial arm and forearm and the arm. For short distance with maculopapular rash with possible some vesicles been forming with the pain and tenderness goes with the rash and around it, signs suspicious for shingles. Therefore we are going to start her on [place] for pain management and valacyclovir and asked ID team to reevaluate. Also will put on isolation till cleared. She is hemodynamically stable She is being evaluated by cardiothoracic surgery team as well. 07/27/2023 Patient is awake and alert she denies chest pain but she still complaining from right shoulder pain and neuropathic pain along her rash in the right armpit and the surrounding skin down to the left wrist along the medial side, rash is getting somewhat crusted partially. Breathing is stable However through the day her blood pressure became on the low side She is getting normal saline running at 90 mL/h Cardiology team and planning for balloon valvuloplasty for her severe aortic stenosis She is currently covered with valacyclovir, Lyrica, prednisone 5 mg Oral Lasix and Farxiga /. Patient seen examined. States right shoulder pain has improved, lesions on the right arm has improved. REVIEW OF SYSTEMS: CONSTITUTIONAL: No fever, no malaise,. CARDIOVASCULAR: No chest pain, no palpitations, no syncope. PULMONARY: No shortness of breath, no cough, GASTROINTESTINAL: No diarrhea, no nausea, no vomiting, no abdominal pain. NEUROLOGICAL: No headaches, no weakness, PHYSICAL EXAMINATION: GENERAL: The patient is alert and oriented x3, not in any acute distress. Well developed, well nourished. HEENT: Pupils are round and equally reacting to light. EOMI. No scleral icterus. No conjunctival pallor. Normocephalic, atraumatic. No pharyngeal erythema. No thyromegaly. CARDIOVASCULAR: S1 and S2 present. No murmurs, rubs, or gallops. PULMONARY: Chest is clear to auscultation, no wheezing or crackles. ABDOMEN: Soft, nontender, nondistended, normoactive bowel sounds. No palpable organomegaly. MUSCULOSKELETAL: No joint swelling or deformity. EXTREMITIES: No cyanosis, clubbing, or pedal edema. NEUROLOGICAL: Gross neurological examination did not reveal any focal deficits. SKIN: No rashes. Assessment and plan Right shoulder pain/chest pain with right upper extremity rash along the medial side, shingles Non-STEMI, status post cardiac catheterization with no progression of CAD Coronary artery disease with previous PCI, most recently March 2023 with PCI of the proximal RCA Ischemic cardiomyopathy, ejection fraction 45%, with improved EF now 60 to 65% Severe aortic stenosis Mild pulmonary hypertension Acute COPD exacerbation. Significantly improved acute on chronic hypoxic respiratory failure. Resolved Atrial tachycardia with short CA interval Coronary artery disease s/p stent History of arctic stenosis s/p TAVR Obesity with BMI of 36.6 History of depression and anxiety, no acute process. Hypertension Hyperlipidemia Plan: Monitor vital sign Monitor CBC Monitor CMP Continue valacyclovir, Lyrica Continue with aspirin prednisone 5 mg daily Continue breathing treatment and bronchodilator Patient scheduled for valvuloplasty per cardiology CT surgery following ID following Labs and medication were reviewed.. Continue same treatment. Continue with symptomatic treatment. Resume home medication. Monitor labs and vitals. DVT and GI prophylaxis. Further recommendations as per clinical course of the patient Dictation was produced using [employer] dictation software. please excuse any grammatical, word or spelling errors. Objective - Vital Signs Vital signs: Vital Signs Temp 98.2 F 07/28/23 04:00 Pulse 84 07/28/23 07:51 Resp 16 07/28/23 07:00 BP 120/66 07/28/23 07:00 Pulse Ox 92 L 07/28/23 07:37 FiO2 Intake & Output 07/27/23 07/28/23 07/28/23 18:59 06:59 18:59 Intake Total 512.097 842.306 125.081 Output Total 0 1000 Balance 512.097 -157.694 125.081 Weight 93.3 kg Intake: IV 10 Invasive Line 1 10 Intake, IV Titration 12.097 242.306 125.081 Amount Norepinephrine 4 mg In 12.097 242.306 35.081 Sodium Chloride 0.9% 250 ml @ 0.03 MCG/KG/MIN 10. 369 mls/hr IV .Q24H [facility] Rx#:[id number] Sodium Chloride 0.9% 1, 90 000 ml In Empty Bag 1 bag @ 1 ML/KG/HR 90.718 mls/ hr IV .Q11H2M [facility] Rx#: [id number] Oral 490 600 Output: Urine 0 1000 Other: Voiding Method Toilet Bedside Commode - Labs CBC & Chem 7: 07/28/23 05:20 07/28/23 05:20 Labs: Abnormal Lab Results - Last 24 Hours (Table) 07/27/23 07/27/23 07/27/23 Range/Units 11:28 12:24 12:24 WBC 12.7 H (3.8-10.6) k/uL RBC 3.33 L (3.80-5.40) m/uL Hgb 10.1 L (11.4-16.0) gm/dL Hct 33.6 L (34.0-46.0) % MCV 101.0 H (80.0-100.0) fL MCHC 30.0 L (31.0-37.0) g/dL Neutrophils # 10.3 H (1.3-7.7) k/uL Lymphocytes # 0.9 L (1.0-4.8) k/uL Sodium 136 L (137-145) mmol/L Chloride 97 L (98-107) mmol/L Carbon Dioxide 37 H (22-30) mmol/L BUN 34 H (7-17) mg/dL Creatinine 1.17 H (0.52-1.04) mg/dL Glucose 127 H (74-99) mg/dL POC Glucose (mg/dL) 129 H (70-110) mg/dL C-Reactive Protein (<1.0) mg/dL Total Protein 5.5 L (6.3-8.2) g/dL Albumin 3.1 L (3.5-5.0) g/dL Procalcitonin (0.02-0.09) ng/mL 07/27/23 07/27/23 07/27/23 Range/Units 14:48 16:09 16:09 WBC (3.8-10.6) k/uL RBC (3.80-5.40) m/uL Hgb (11.4-16.0) gm/dL Hct (34.0-46.0) % MCV (80.0-100.0) fL MCHC (31.0-37.0) g/dL Neutrophils # (1.3-7.7) k/uL Lymphocytes # (1.0-4.8) k/uL Sodium (137-145) mmol/L Chloride (98-107) mmol/L Carbon Dioxide (22-30) mmol/L BUN (7-17) mg/dL Creatinine (0.52-1.04) mg/dL Glucose (74-99) mg/dL POC Glucose (mg/dL) 243 H (70-110) mg/dL C-Reactive Protein 8.3 H (<1.0) mg/dL Total Protein (6.3-8.2) g/dL Albumin (3.5-5.0) g/dL Procalcitonin 0.33 H (0.02-0.09) ng/mL 07/27/23 07/27/23 07/28/23 Range/Units 17:15 20:58 05:20 WBC 12.5 H (3.8-10.6) k/uL RBC 3.29 L (3.80-5.40) m/uL Hgb 10.1 L (11.4-16.0) gm/dL Hct 33.0 L (34.0-46.0) % MCV 100.3 H (80.0-100.0) fL MCHC 30.7 L (31.0-37.0) g/dL Neutrophils # (1.3-7.7) k/uL Lymphocytes # (1.0-4.8) k/uL Sodium (137-145) mmol/L Chloride (98-107) mmol/L Carbon Dioxide (22-30) mmol/L BUN (7-17) mg/dL Creatinine (0.52-1.04) mg/dL Glucose (74-99) mg/dL POC Glucose (mg/dL) 283 H 137 H (70-110) mg/dL C-Reactive Protein (<1.0) mg/dL Total Protein (6.3-8.2) g/dL Albumin (3.5-5.0) g/dL Procalcitonin (0.02-0.09) ng/mL 07/28/23 07/28/23 Range/Units 05:20 06:41 WBC (3.8-10.6) k/uL RBC (3.80-5.40) m/uL Hgb (11.4-16.0) gm/dL Hct (34.0-46.0) % MCV (80.0-100.0) fL MCHC (31.0-37.0) g/dL Neutrophils # (1.3-7.7) k/uL Lymphocytes # (1.0-4.8) k/uL Sodium (137-145) mmol/L Chloride (98-107) mmol/L Carbon Dioxide 34 H (22-30) mmol/L BUN 35 H (7-17) mg/dL Creatinine (0.52-1.04) mg/dL Glucose 114 H (74-99) mg/dL POC Glucose (mg/dL) 131 H (70-110) mg/dL C-Reactive Protein (<1.0) mg/dL Total Protein (6.3-8.2) g/dL Albumin (3.5-5.0) g/dL Procalcitonin (0.02-0.09) ng/mL
--- NOTE | 2023-07-28 14:56 | P.PN ---
Subjective Progress Note Date: 07/28/23 Principal diagnosis: Reason for follow-up is right T10 dermatome shingles Patient is a 63-year-old female past medical history significant for COPD coronary artery disease [place] former smoker presenting to the hospital for evaluation of chest pain on the right side of her chest and is also complaining of pain to the right upper arm, patient did develop a rash prompting this consultation and has been diagnosed with shingles. On today's evaluation that is 07/28/2023,the patient remains to be afebrile, patient is on 4 L nasal cannula supplemental oxygen and denies any worsening shortness of breath no chest pain or cough.Patient denies having any nausea or vomiting, no abdominal pain and no diarrhea has been reported, still complaining of pain to the right upper extremity rash area but no worsening pain. Patient white count is 12.5 creatinine 0.85, CRP is 8.3 Pro-Bernardino 0[address] abdominal pelvis and chest did not show any evidence of pneumonia or intra-abdominal infectious process Objective - Vital Signs Vital signs: Vital Signs Temp 97.8 F 07/28/23 12:00 Pulse 91 07/28/23 13:15 Resp 22 07/28/23 12:00 BP 99/66 07/28/23 13:00 Pulse Ox 97 07/28/23 13:15 FiO2 Intake & Output 07/27/23 07/28/23 07/28/23 18:59 06:59 18:59 Intake Total 512.097 842.306 657.805 Output Total 0 1000 1900 Balance 512.097 -157.694 -1242.195 Weight 93.3 kg Intake: IV 10 450 Invasive Line 1 10 Sodium Chloride 0.9% 1, 450 000 ml In Empty Bag 1 bag @ 1 ML/KG/HR 90.718 mls/ hr IV .Q11H2M [facility] Rx#: [id number] Intake, IV Titration 12.097 242.306 207.805 Amount Norepinephrine 4 mg In 12.097 242.306 117.805 Sodium Chloride 0.9% 250 ml @ 0.03 MCG/KG/MIN 10. 369 mls/hr IV .Q24H [facility] Rx#:[id number] Sodium Chloride 0.9% 1, 90 000 ml In Empty Bag 1 bag @ 1 ML/KG/HR 90.718 mls/ hr IV .Q11H2M [facility] Rx#: [id number] Oral 490 600 Output: Urine 0 1000 1900 Other: Voiding Method Toilet Bedside Commode Bedside Commode # Voids 1 - Exam GENERAL DESCRIPTION: Middle-aged female lying in bed in no distress RESPIRATORY SYSTEM: Unlabored breathing , decreased breath sounds at bases HEART: S1 S2 regular rate and rhythm , ABDOMEN: Soft , no tenderness EXTREMITIES: Right upper extremity did have vesicular rash no worsening or extension noticed - Labs CBC & Chem 7: 07/28/23 05:20 07/28/23 05:20 Labs: Abnormal Lab Results - Last 24 Hours (Table) 07/27/23 07/27/23 07/27/23 Range/Units 16:09 16:09 17:15 WBC (3.8-10.6) k/uL RBC (3.80-5.40) m/uL Hgb (11.4-16.0) gm/dL Hct (34.0-46.0) % MCV (80.0-100.0) fL MCHC (31.0-37.0) g/dL Carbon Dioxide (22-30) mmol/L BUN (7-17) mg/dL Glucose (74-99) mg/dL POC Glucose (mg/dL) 283 H (70-110) mg/dL C-Reactive Protein 8.3 H (<1.0) mg/dL Procalcitonin 0.33 H (0.02-0.09) ng/mL 07/27/23 07/28/23 07/28/23 Range/Units 20:58 05:20 05:20 WBC 12.5 H (3.8-10.6) k/uL RBC 3.29 L (3.80-5.40) m/uL Hgb 10.1 L (11.4-16.0) gm/dL Hct 33.0 L (34.0-46.0) % MCV 100.3 H (80.0-100.0) fL MCHC 30.7 L (31.0-37.0) g/dL Carbon Dioxide 34 H (22-30) mmol/L BUN 35 H (7-17) mg/dL Glucose 114 H (74-99) mg/dL POC Glucose (mg/dL) 137 H (70-110) mg/dL C-Reactive Protein (<1.0) mg/dL Procalcitonin (0.02-0.09) ng/mL 07/28/23 07/28/23 Range/Units 06:41 11:33 WBC (3.8-10.6) k/uL RBC (3.80-5.40) m/uL Hgb (11.4-16.0) gm/dL Hct (34.0-46.0) % MCV (80.0-100.0) fL MCHC (31.0-37.0) g/dL Carbon Dioxide (22-30) mmol/L BUN (7-17) mg/dL Glucose (74-99) mg/dL POC Glucose (mg/dL) 131 H 118 H (70-110) mg/dL C-Reactive Protein (<1.0) mg/dL Procalcitonin (0.02-0.09) ng/mL Assessment and Plan (1) Zoster Current Visit: Yes Status: Acute Code(s): B02.9 - ZOSTER WITHOUT COMPLICATIONS SNOMED Code(s): 6484832 (2) Leukocytosis Current Visit: Yes Status: Acute Code(s): D72.829 - ELEVATED WHITE BLOOD ETELVINA L COUNT, UNSPECIFIED SNOMED Code(s): 916307186 Plan: 1patient presented to hospital with pain to the right side of the chest and right upper extremity not developing a rash which is a following T1 dermatome likely herpes zoster with no evidence of any secondary cellulitis 2-patient to continue with Valtrex 1 g every 8 hours along with Lyrica for postherpetic neuralgia 3patient did have a mild hypertension and family markers mildly elevated however recent CT chest abdominal pelvis did not show any suspicious for pneumonia or intra-abdominal process will be monitored closely off antibiotics Dictation was produced using [employer] dictation software. please excuse any grammatical, word or spelling errors. Time with Patient: Less than 30
[2023-07-28] MEDS ORDERED: LIDOCAINE 1% INJ 10MG/ML (20 ML MDV) ONE ×3 (15:16→16:01)
[2023-07-28] MEDS ORDERED: VERAPAMIL 2.5 MG/ML 2 ML AMP ONE (15:16)
[2023-07-28] MEDS ORDERED: PROTAMINE SULFATE 10 MG/ML 5 ML VIAL ONE (15:18)
[2023-07-28] MEDS ORDERED: HEPARIN SODIUM,PORCINE 10,000 UNIT/ML 1 ML VIAL ONE (15:18)
[2023-07-28] MEDS: IOPAMIDOL-370 100ML BTL INJ ONE (17:24)
[2023-07-28] MEDS: SODIUM CHLORIDE 0.9% 1,000 ML IV ONE (17:26)
[2023-07-28 17:51] LABS: Glucose,Whole Blood 103 mg/dL (70-110)
[2023-07-28 20:03] LABS: Glucose,Whole Blood 215 mg/dL (70-110)
[2023-07-28] MEDS: FAMOTIDINE 20 MG/2 ML VIAL IV SCH (20:25)
--- NOTE | 2023-07-28 21:08 | PN ---
PROGRESS NOTE SUBJECTIVE: Blanka is a 63-year-old lady who was admitted to hospital with a combination of COPD and CHF exacerbations, was to undergo balloon valvuloplasty for the aortic stenosis while the TAVR workup is in progress. Yesterday, her clinical condition had deteriorated primarily. She became more hypotensive and short of breath. She was started on Levophed and transferred to ICU. This morning, she appears comfortable at rest, stable hemodynamically, still on pressors, but maintaining blood pressure well. OBJECTIVE: VITAL SIGNS: Heart rate is 96 beats per minute. Blood pressure is 100/62, respiratory rate is 20. CHEST: Reveals diminished air entry at the bases. HEART: Reveals first and second heart sounds. Ejection systolic murmur in the aortic area. ABDOMEN: Soft. EXTREMITIES: Revealed mild edema. Peripheral pulses are felt. LABORATORY DATA: Labs show that the potassium is 3.9, creatinine is 0.8, hemoglobin is 10, platelet count is 283. ASSESSMENT: 1. Severe aortic stenosis. 2. Chronic obstructive pulmonary disease exacerbation. 3. Chronic systolic heart failure. PLAN: The patient will undergo balloon valvuloplasty for the aortic stenosis. MMODL / IJN: [id number] /
[2023-07-28] MEDS: MORPHINE SULFATE 4 MG/ML SYRINGE IV PRN (23:22)
[2023-07-29] MEDS ORDERED: RX INFO: IV CONTRAST WAS GIVEN 1 EACH MISC MISCELLANE PRN (00:28)
--- NOTE | 2023-07-29 00:50 | P.PCN ---
Description of Procedure: PROCEDURES PERFORMED: Ultrasound guided arterial access, balloon aortic valvuloplasty with a 28mm Z med balloon, placement of temporary pacemaker, aortic root angiography INDICATION: Severe/ critical aortic stenosis CONSENT:I have discussed the risks, benefits and alternative therapies for the above-mentioned procedure and for both sedation/analgesia as well as necessary blood product administration, if indicated, as they pertain to this patient. The patient has indicated understanding and acceptance of the risks and procedures discussed. PROCEDURE: After the risks, benefits and alternatives of the above mentioned procedure explained in detail with the patient, informed consent was obtained. Patient was taken to the catheterization lab and prepped and draped in usual fashion. Ultrasound guidance was used to assess for arterial access. 1% lidocaine was used to anesthetize the right and left femoral area. A 6-Yi sheath was placed in the right femoral artery as well as an additional 6 Fr sheath in the right femoral vein using modified Seldinger technique and ultrasound guidance. An additional 6Fr sheath was placed in the left femoral artery using ultrasound guidance. 2 Perclose were placed in the left femoral artery at the 10 and 2 O'Clock positions. An 8Fr sheath was placed in the left femoral artery and eventually upgraded to a 14 Fr sheath over a Safari wire. A temporary pacemaker was placed through the left femoral venous sheath into the RV and parameters were checked and deemed appropriate. Through the right femoral sheath, a pigtail catheter was placed in the noncoronary cusp. Aortic root angiography was performed. Next the valve was crossed using a 6Fr AL 2 catheter and a 0.035 straight wire. This was exchanged for a pigtail then for a Safari wire. Next balloon aortic valvuloplasty was performed with a 26mmHg True balloon x 3 times. The initial gradient pre balloon was 52mmHg however on transthoracic echo gradient was still severe. Therefore repeat balloon angioplasty was performed with a 26mm Zmed balloon. The gradient still remained elevated and therefore repeat balloon aortic valvuoplasty was performed with a 28mm Zmed balloon. Gradient had improved to 32.5mmHg by catheterization and moderate by TTE with only mild to moderate aortic regurgitation and therefore procedure completed. The patient tolerated the procedure well. Patient was transported back to the post catheterization holding area in stable condition. Conscious Sedation: Patient was monitored by anesthesia. See separate report HEMODYNAMICS: LV pre BAV: 195/8, LVEDP 24 Ao pre BAV: 139/67 Mean gradient 48mmHg LV post BAV: 187/10, LVEDP 12mmHgh Ao post BAV: 154/76, Mean gradient 32.5mmHg FINAL IMPRESSION: 1. Critical aortic stenosis s/p balloon aortic valvuloplasty with a 28mm Z Med balloon PLAN: 1. Evaluate for possible TAVR if able to complete TAVR workup and if pulmonary status stable or improved.
[2023-07-29 05:49] LABS: Basophils % (A) 0 %; Eosinophils # (A) 0.4 k/uL (0-0.7); Eosinophils % (A) 4 %; HCT 31.1 % (34.0-46.0); HGB 9.3 gm/dL (11.4-16.0); Hypochromasia Moderate; Lymphocytes # (A) 1.1 k/uL (1.0-4.8); Lymphocytes % (A) 11 %; MCHC 29.8 g/dL (31.0-37.0); MCV 100.5 fL (80.0-100.0); Macrocytosis Slight; Mean Platelet Volume 7.5; Monocytes # (A) 0.6 k/uL (0-1.0); Monocytes % (A) 6 %; Neutrophils # (A) 7.2 k/uL (1.3-7.7); Neutrophils % (A) 76 %; Platelet Count 269 k/uL (150-450); RDW 14.2 % (11.5-15.5); WBC 9.5 k/uL (3.8-10.6)
[2023-07-29 06:06] LABS: ALT 16 U/L (4-34); AST 32 U/L (14-36); African American GFR (CKD) >90 (>60 ml/min/1.73 sqM); Albumin 2.8 g/dL (3.5-5.0); Alkaline Phosphatase 107 U/L (38-126); Anion Gap 2 mmol/L; Blood Urea Nitrogen 23 mg/dL (7-17); Calcium 8.4 mg/dL (8.4-10.2); Carbon Dioxide 37 mmol/L (22-30); Chloride 98 mmol/L (98-107); Glucose 103 mg/dL (74-99); Non-African American GFR(CKD) >90 (>60 ml/min/1.73 sqM); Potassium 3.8 mmol/L (3.5-5.1); Sodium 137 mmol/L (137-145); Total Bilirubin 0.3 mg/dL (0.2-1.3); Total Protein 5.3 g/dL (6.3-8.2)
[2023-07-29 06:51] LABS: Glucose,Whole Blood 115 mg/dL (70-110)
[2023-07-29] MEDS: POTASSIUM CHLORIDE ER 20 MEQ TAB.ER PO SCH (06:53)
--- NOTE | 2023-07-29 08:43 | XR ---
EXAMINATION TYPE: XR chest 1V portable DATE OF EXAM: 07/29/2023 HISTORY: Shortness of breath. COMPARISON: 07/24/2023 TECHNIQUE: Single view of the chest is submitted. FINDINGS: Demonstrated are scattered senescent parenchymal change. Patchy infiltrate right lower lobe compatible with pneumonia. Progress study is recommended. The heart is stable. Hilar and mediastinal structures are within normal limits. Degenerative changes are seen of the dorsal spine. IMPRESSION: 1. Patchy infiltrate right lower lobe compatible with pneumonia. Progress study is recommended.
[2023-07-29] MEDS: FUROSEMIDE 10 MG/ML 10 ML VIAL IV STA (09:20)
--- NOTE | 2023-07-29 11:07 | P.PN ---
Subjective Progress Note Date: 07/29/23 Principal diagnosis: Chest pain and shortness of breath. Pulmonary consult dated July 25, 2023. 63-year-old female well-known to our service. The patient has a history of chronic hypoxemic respiratory failure secondary to COPD, and is chronically oxygen dependent. The patient presented to the emergency room, on July 23, complaining of chest pain. The pain apparently was on the right side of her chest, and radiated into her right arm. The pain started on the prior . The patient does have a history of coronary disease, and has had stents placed in the last year. In addition, she admits to chronic shortness of breath, secondary to her severe COPD. The patient did go to the catheterization laboratory on July 23, and was found to have a 40 to 50% stenosis, in the mid LAD, with a patent proximal RCA stent. In addition, on echocardiogram, the patient was found to have severe aortic stenosis, with a valve surface area of 1.6 cm, and a gradient across the aortic valve, of 100 mmHg. Lab data includes a white count 11.9, hemoglobin 10.4, hematocrit 33.8, and a platelet count of 243,000. Sodium 136, potassium 4.6, chlorides 94, CO2 36, BUN 28, creatinine 0.6. The patient's troponin was 0.047, 0.097, and 0.043. Chest x-ray was unremarkable. Progress note dated July 26, 2023. 63-year-old female well-known to our service. She was seen yesterday in consultation. The patient presented with shortness of breath and chest pain. The patient was discovered to have severe aortic stenosis. Valve surface area 0.6 cm. She also has a significant gradient across aortic valve. Unfortunately, the patient's poor lung function, prevents a surgical repair of her aortic stenosis. Options would include a transcatheter aortic valve replacement, or balloon procedure. Even with conscious sedation, she is at risk for respiratory distress, and need for intubation and mechanical ventilation. Currently, her oxygen is set at 8 L/min. She is not receiving any IV fluids. Her PFTs were reviewed. No new labs today other than a glucose of 144. Progress note dated July 27, 2023. 63-year-old female seen today in room 360. The patient has a history of severe aortic stenosis, and, she is to have a balloon valvuloplasty today by cardiology. The patient is nervous about the procedure. She continues on 5 L by nasal cannula. She is getting saline at 90 cc an hour. Her family members are in the room. No new labs today, other than a glucose of 193. Progress note dated July 28, 2023. The patient is again seen in the intensive care unit, room 254. She continues on nasal O2 at 5 L. She is on norepinephrine at 3.7 mcg/min. She is getting saline at 90 cc an hour. The patient is planning to be taken back to the [facility], later today, for balloon valvuloplasty. Currently, she is reasonably stable. Current labs include a white count of 12.5, hemoglobin 10.1, hematocrit 33.0, and a platelet count of 283,000. Sodium 137, potassium 3.9, chloride 98, CO2 34, BUN 35, creatinine 0.85. Glucose is 131. Magnesium 2.2 calcium 8.7. Procalcitonin level is 0.33. Progress note dated July 29, 2023. The patient is seen today in room 254. The patient had balloon valvuloplasty yesterday, for her severe aortic stenosis. Currently, she is on 15 L high flow oxygen. Saturations are in the low 90s. She is getting saline at KVO. Her norepinephrine has been off since yesterday. The procedure was done by Dr. Hinkle. This morning she will get Lasix 60 mg IV push, once. Clinically, the patient is doing okay. White count is 9.5, hemoglobin 9.3, hematocrit 31.1, platelet count is normal. Sodium 137, potassium 3.8, chloride 98, CO2 37, BUN 23, creatinine 0.64. Albumin is 2.8. The patient's chest x-ray shows some patchy infiltrate right lower lobe, and some fluid in the minor fissure. Objective - Vital Signs Vital signs: Vital Signs Temp 97.8 F 07/29/23 08:00 Pulse 93 07/29/23 10:00 Resp 26 H 07/29/23 10:00 BP 134/93 07/29/23 10:00 Pulse Ox 93 L 07/29/23 10:00 FiO2 Intake & Output 07/28/23 07/29/23 07/29/23 18:59 06:59 18:59 Intake Total 1007.805 60 30 Output Total 1900 1 600 Balance -892.195 59 -570 Weight 91.5 kg Intake: IV 800 60 30 KVO 60 30 Sodium Chloride 0.9% 1, 450 0 000 ml In Empty Bag 1 bag @ 1 ML/KG/HR 90.718 mls/ hr IV .Q11H2M [facility] Rx#: [id number] Intake, IV Titration 207.805 Amount Norepinephrine 4 mg In 117.805 Sodium Chloride 0.9% 250 ml @ 0.03 MCG/KG/MIN 10. 369 mls/hr IV .Q24H [facility] Rx#:[id number] Sodium Chloride 0.9% 1, 90 000 ml In Empty Bag 1 bag @ 1 ML/KG/HR 90.718 mls/ hr IV .Q11H2M [facility] Rx#: [id number] Output: Urine 1900 0 600 Stool 1 Other: Voiding Method Bedside Commode Bedside Commode Bedside Commode # Voids 1 1 1 - Exam No acute distress, oriented 3. The patient is currently on 15 L high flow oxygen. Saturations are in the low 90s. HEENT examination is grossly unremarkable. Mucous membranes are moist. No oral lesions. Neck supple. Full range of motion. No adenopathy thyromegaly or neck vein distention. Cardiovascular examination reveals regular rhythm rate. S1-S2 normal. No S3 or S4. No discernible murmur noted. Heart sounds are distant. Heart rate 93 bpm. Lungs reveal diminished bilateral breath sounds. Scattered rhonchi and wheezes are noted. No crackles. Breath sounds equal bilaterally. Saturations are in the low 90s. Abdomen soft but obese. Bowel sounds are noted. Extremities are intact. No cyanosis clubbing or edema. Skin is without rash or lesion. Neurologic examination is brief but nonfocal. - Labs CBC & Chem 7: 07/29/23 04:31 07/29/23 04:31 Labs: Abnormal Lab Results - Last 24 Hours (Table) 07/28/23 07/28/23 07/29/23 Range/Units 11:33 20:02 04:31 RBC 3.10 L (3.80-5.40) m/uL Hgb 9.3 L (11.4-16.0) gm/dL Hct 31.1 L (34.0-46.0) % MCV 100.5 H (80.0-100.0) fL MCHC 29.8 L (31.0-37.0) g/dL Carbon Dioxide (22-30) mmol/L BUN (7-17) mg/dL Glucose (74-99) mg/dL POC Glucose (mg/dL) 118 H 215 H (70-110) mg/dL Total Protein (6.3-8.2) g/dL Albumin (3.5-5.0) g/dL 07/29/23 07/29/23 Range/Units 04:31 06:50 RBC (3.80-5.40) m/uL Hgb (11.4-16.0) gm/dL Hct (34.0-46.0) % MCV (80.0-100.0) fL MCHC (31.0-37.0) g/dL Carbon Dioxide 37 H (22-30) mmol/L BUN 23 H (7-17) mg/dL Glucose 103 H (74-99) mg/dL POC Glucose (mg/dL) 115 H (70-110) mg/dL Total Protein 5.3 L (6.3-8.2) g/dL Albumin 2.8 L (3.5-5.0) g/dL Microbiology - Last 24 Hours (Table) 07/27/23 16:09 Blood Culture - Preliminary Blood Assessment and Plan Assessment: Coronary artery disease, involving the LAD, with 40 to 50% stenosis, and a patent proximal RCA stent. Severe aortic stenosis with a valve surface area of 0.6 cm, S/P BVP, July 28, 2023. Possible aspiration pneumonia, right lung. Severe chronic hypoxemic and hypercapnic respiratory failure, secondary to COPD. History of hyperlipidemia. History of hypertension. History of chronic low back pain. Obesity. Aortic valve stenosis. History of tracheobronchitis. Prior history of heavy tobacco use. Plan: Plan dated July 25, 2023. The patient is admitted with a possible non-ST segment elevation myocardial infarction. The patient went to the cardiac catheterization laboratory in July 23, and was found to have a 40 to 50% obstruction/stenosis of the LAD. In addition, the patient had a patent stent to the RCA. In addition, the patient was found to have severe aortic stenosis, with a significant gradient across the valve, and a valve surface area 0.6 cm. The patient in our opinion would not be a great candidate for surgery given the severity of her chronic lung disease. Nonetheless, we will follow along, and make recommendations were appropriate. Prognosis is certainly guarded. Plan dated July 26, 2023. The patient's lung function are rather poor. The patient will be at high operative risk for any surgical procedure, even 1 done with conscious sedation. Labs, x-rays, and medications are reviewed. The patient is in the process of deciding what she would want done. She has been seen by cardiothoracic surgery. We will continue to follow and make recommendations along the way. Currently, she is using oxygen at 8 L/min. It can be weaned down. Plan dated July 27, 2023. The patient is scheduled to have a balloon valvuloplasty today. It will be done by cardiology. The patient was not excited about having a transcatheter aortic valve replacement, or surgical aortic valve replacement. In fact, in my opinion, the patient will be extremely high risk, given her very poor lung function. Labs, x-rays, medications are reviewed. We will continue to follow the patient, and make recommendations along the way. She is currently on 5 L by nasal cannula. Plan dated July 28, 2023. The patient is seen today in room 254. She is currently on oxygen at 5 L by nasal cannula. She continues on norepinephrine at 3.7 mcg/min. In addition, the patient is getting saline at 90 cc an hour. The patient is planning to be taken back to the catheterization laboratory, for balloon valvuloplasty. The patient has severe aortic stenosis with a valve surface area of 0.6 cm. Labs, x-rays, and medications are reviewed. Prognosis is guarded. The patient has very severe lung function. We will continue to follow and make recommendations along the way. Plan dated July 29, 2023. The patient is seen today in room 254. She is now on 15 L high flow O2. Previously, she was getting oxygen at 5 L by nasal cannula. Her chest x-ray shows a concerning infiltrate in the right lower lobe. She may have aspirated during the procedure. The patient had balloon valvuloplasty done yesterday, July 27. She is seen in the intensive care unit. The patient has been off of norepinephrine since yesterday. Labs, x-rays, and medications are reviewed. I am going to add Zosyn to her regimen. Additional recommendations and saldana ggestions are forthcoming. We will continue to follow, make recommendations along weight. The patient is still critically ill. Prognosis is guarded. Time with Patient: Greater than 30
[2023-07-29 11:52] LABS: Glucose,Whole Blood 157 mg/dL (70-110)
--- NOTE | 2023-07-29 12:46 | CA ---
Transthoracic Echo Report Name: Blanka Porras Age: 63 Gender: F : 1960 Exam Date: 07/28/2023 16:33 Exam Location: [facility] Ht (in): Wt (lb): Ordering Physician: Antoni Hinkle DO ([id number]) Attending/Referring Phys: [employer] Sarah Márquez RDCS Procedure CPT: Indications: Valvuloplasty Cardiac Hx: Technical Quality: Fair Contrast 1: Total Dose (mL): Contrast 2: Total Dose (mL): MEASUREMENTS (Male / Female) Normal Values DOPPLER AV Peak Velocity 401.1 cm/s AV Peak Gradient 64.4 mmHg AV Mean Velocity 265.0 cm/s AV Mean Gradient 32.3 mmHg AV Velocity Time Integral 70.0 cm FINDINGS Left Ventricle Limited study done during Aortic balloon valvular plasty. Right Ventricle Right Atrium Left Atrium Mitral Valve Aortic Valve Aortic stenosis. Mean Pg went from 75 mmHg to mean Pg of 38 mmHg post procedure. Mild to moderate AI. Tricuspid Valve Pulmonic Valve Pericardium No pericardial effusion. Aorta CONCLUSIONS Gradient across aortic valve has improved from 75 mm to 38 mm There is mild to moderate mitral regurgitation Previewed by: Dr. Shan Squires MD (Electronically Signed) Final Date: 29 July 2023 12:46
--- NOTE | 2023-07-29 13:11 | P.PN ---
Subjective Progress Note Date: 07/29/23 This is a pleasant 62 years old female with past medical history of multiple medical problems including COPD and chronic hypoxic respiratory failure on 5 L oxygen at home and she follows up with Dr. MACARIO for her COPD. Other medical problems including aortic stenosis status post TAVR, coronary artery disease s/p stent and depression and anxiety. Patient presents because of pain in her right shoulder radiating to her right arm and right chest for a few days since , 110/10 in severity, no histor y of trauma or fall. Pain described as nonspecific with no precipitating or relieving factors. She denies dyspnea she has dry cough. She is using 5 L of oxygen at home. No change in urine or bowel habits. No headache dizziness weakness or numbness. She denies current smoking alcohol or illicit drugs Patient is hemodynamically stable, afebrile She has unremarkable CBC, INR, BMP, liver enzymes, lipase Troponin is elevated 0.04 Chest x-ray is negative for acute process EKG showing atrial tachycardia with short TN interval but no significant ST-T changes. 07/25/2023 Patient is status post cardiac cath yesterday showing mid LAD stenosis 40-50% with patent RCA stent, also shows evidence of severe aortic stenosis, therefore cardiothoracic surgery team were consulted however patient is known not to follow-up on patient, as confirmed with the patient and daughter at bedside today who states that her mom usually go home call Dr. trejo isn't canceled her appointment and she does not follow up Further workup per cardiothoracic surgery team is requested here On admission yesterday she has limited air entry and she was placed on IV Solu- Medrol or acute COPD exacerbation, whiletoday air flow is much better although she has scattered wheezing and she still mildly tachypneic and therefore we consulted pulmonary service currently she is placed on prednisone 5 mg. she is to have mild to moderate right shoulder pain mostly related to her cardiac disease. Some elements of osteoarthritis. her heparin drip was stopped , 07/26/2023 Patient breathing is better, no chest pain today But she still complaining from more severe right shoulder pain. Patient has this pain improved with the steroids but when switched to oral prednisone 5 mg the pain increased today again. She has more rash in her medial arm and forearm and the arm. For short distance with maculopapular rash with possible some vesicles been forming with the pain and tenderness goes with the rash and around it, signs suspicious for shingles. Therefore we are going to start her on [place] for pain management and valacyclovir and asked ID team to reevaluate. Also will put on isolation till cleared. She is hemodynamically stable She is being evaluated by cardiothoracic surgery team as well. 07/27/2023 Patient is awake and alert she denies chest pain but she still complaining from right shoulder pain and neuropathic pain along her rash in the right armpit and the surrounding skin down to the left wrist along the medial side, rash is getting somewhat crusted partially. Breathing is stable However through the day her blood pressure became on the low side She is getting normal saline running at 90 mL/h Cardiology team and planning for balloon valvuloplasty for her severe aortic stenosis She is currently covered with valacyclovir, Lyrica, prednisone 5 mg Oral Lasix and Farxiga 07/27. Patient seen examined. States right shoulder pain has improved, lesions on the right arm has improved. 07/28. Patient seen and examined. s/p balloon aortic valvuloplasty with a 28mm Z Med balloon on 07/27. Currently on 15 L of oxygen. Critical care ordered 1 dose of 60 mg of Lasix IV REVIEW OF SYSTEMS: CONSTITUTIONAL: No fever, no malaise,. CARDIOVASCULAR: No chest pain, no palpitations, no syncope. PULMONARY: As mentioned above, GASTROINTESTINAL: No diarrhea, no nausea, no vomiting, no abdominal pain. NEUROLOGICAL: No headaches, no weakness, PHYSICAL EXAMINATION: GENERAL: The patient is alert and oriented x3, not in any acute distress. Well developed, well nourished. HEENT: Pupils are round and equally reacting to light. EOMI. No scleral icterus. No conjunctival pallor. Normocephalic, atraumatic. No pharyngeal erythema. No thyromegaly. CARDIOVASCULAR: S1 and S2 present. PULMONARY: Coarse breath sound bilaterally, no wheezing or crackles. ABDOMEN: Soft, nontender, nondistended, normoactive bowel sounds. No palpable organomegaly. MUSCULOSKELETAL: No joint swelling or deformity. EXTREMITIES: No cyanosis, clubbing, or pedal edema. NEUROLOGICAL: Gross neurological examination did not reveal any focal deficits. SKIN: No rashes. Assessment and plan Right shoulder pain/chest pain with right upper extremity rash along the medial side, shingles Non-STEMI, status post cardiac catheterization with no progression of CAD Coronary artery disease with previous PCI, most recently March 2023 with PCI of the proximal RCA Ischemic cardiomyopathy, ejection fraction 45%, with improved EF now 60 to 65% Severe aortic stenosis Mild pulmonary hypertension Acute COPD exacerbation. Significantly improved acute on chronic hypoxic respiratory failure. Resolved Atrial tachycardia with short TN interval Coronary artery disease s/p stent History of arctic stenosis s/p TAVR Obesity with BMI of 36.6 History of depression and anxiety, no acute process. Hypertension Hyperlipidemia Plan: Monitor vital sign Monitor CBC Monitor CMP s/p balloon aortic valvuloplasty with a 28mm Z Med balloon on 07/27. Continue valacyclovir, Lyrica Continue with aspirin, Lipitor Lasix 40 mg daily Continue Toprol 25 mg twice daily prednisone 5 mg daily Continue breathing treatment and bronchodilator Cardiology following CT surgery following ID following Labs and medication were reviewed.. Continue same treatment. Continue with symptomatic treatment. Resume home medication. Monitor labs and vitals. DVT and GI prophylaxis. Further recommendations as per clinical course of the patient Dictation was produced using [employer] dictation software. please excuse any grammatical, word or spelling errors. Objective - Vital Signs Vital signs: Vital Signs Temp 97.9 F 07/29/23 04:00 Pulse 100 07/29/23 07:53 Resp 14 07/29/23 07:00 BP 113/62 07/29/23 07:00 Pulse Ox 86 L 07/29/23 07:00 FiO2 Intake & Output 07/28/23 07/29/23 07/29/23 18:59 06:59 18:59 Intake Total 1007.805 60 10 Output Total 1900 1 0 Balance -892.195 59 10 Weight 91.5 kg Intake: IV 800 60 10 KVO 60 10 Sodium Chloride 0.9% 1, 450 0 000 ml In Empty Bag 1 bag @ 1 ML/KG/HR 90.718 mls/ hr IV .Q11H2M [facility] Rx#: [id number] Intake, IV Titration 207.805 Amount Norepinephrine 4 mg In 117.805 Sodium Chloride 0.9% 250 ml @ 0.03 MCG/KG/MIN 10. 369 mls/hr IV .Q24H [facility] Rx#:[id number] Sodium Chloride 0.9% 1, 90 000 ml In Empty Bag 1 bag @ 1 ML/KG/HR 90.718 mls/ hr IV .Q11H2M [facility] Rx#: [id number] Output: Urine 1900 0 0 Stool 1 Other: Voiding Method Bedside Commode Bedside Commode # Voids 1 1 - Labs CBC & Chem 7: 07/29/23 04:31 07/29/23 04:31 Labs: Abnormal Lab Results - Last 24 Hours (Table) 07/28/23 07/28/23 07/29/23 Range/Units 11:33 20:02 04:31 RBC 3.10 L (3.80-5.40) m/uL Hgb 9.3 L (11.4-16.0) gm/dL Hct 31.1 L (34.0-46.0) % MCV 100.5 H (80.0-100.0) fL MCHC 29.8 L (31.0-37.0) g/dL Carbon Dioxide (22-30) mmol/L BUN (7-17) mg/dL Glucose (74-99) mg/dL POC Glucose (mg/dL) 118 H 215 H (70-110) mg/dL Total Protein (6.3-8.2) g/dL Albumin (3.5-5.0) g/dL 07/29/23 07/29/23 Range/Units 04:31 06:50 RBC (3.80-5.40) m/uL Hgb (11.4-16.0) gm/dL Hct (34.0-46.0) % MCV (80.0-100.0) fL MCHC (31.0-37.0) g/dL Carbon Dioxide 37 H (22-30) mmol/L BUN 23 H (7-17) mg/dL Glucose 103 H (74-99) mg/dL POC Glucose (mg/dL) 115 H (70-110) mg/dL Total Protein 5.3 L (6.3-8.2) g/dL Albumin 2.8 L (3.5-5.0) g/dL Microbiology - Last 24 Hours (Table) 07/27/23 16:09 Blood Culture - Preliminary Blood
--- NOTE | 2023-07-29 14:12 | PN ---
PROGRESS NOTE SUBJECTIVE: Blanka is a 63-year-old lady with severe aortic stenosis, who was admitted to ICU because of hypotension. She underwent balloon valvuloplasty yesterday with significant improvement especially in her blood pressure. CURRENT MEDICATIONS: Include: 1. Toprol. 2. Lasix. She is no longer on Levophed, aspirin, and Lipitor. OBJECTIVE: VITAL SIGNS: Heart rate is 93 beats per minute, blood pressure is 134/92, and respiratory rate is 18. CHEST: Reveals occasional rhonchi bilaterally with diminished air entry. HEART: Reveals first and second heart sounds, ejection systolic murmur in the aortic area. ABDOMEN: Soft. EXTREMITIES: Reveals bilateral 1+ edema. LABORATORY DATA: Hemoglobin of 9.3, platelet count is 269, potassium is 3.8, and creatinine is 0.6. ASSESSMENT: 1. Aortic stenosis, status post balloon valvuloplasty. 2. Chronic obstructive pulmonary disease exacerbation. PLAN: I will repeat an echo on her to evaluate the gradients across the aortic valve. MMODL / IJN: [id number] /
--- NOTE | 2023-07-29 14:30 | P.PN ---
Subjective Progress Note Date: 07/29/23 Principal diagnosis: Reason for follow-up is right T10 dermatome shingles Patient is a 63-year-old female past medical history significant for COPD coronary artery disease DE former smoker presenting to the hospital for evaluation of chest pain on the right side of her chest and is also complaining of pain to the right upper arm, patient did develop a rash prompting this consultation and has been diagnosed with shingles. On today's evaluation that is 07/29/2023, the patient continues to be afebrile, the patient is on 15 L high flow oxygen however is breathing comfortably, the Pt denies having any chest pain or worsening cough, the patient denies having any abdominal pain no vomiting or any diarrhea, pain to the right upper extremity rash area slightly decreased in intensity. Patient white count is 9.5, creatinine 0.64 blood culture has been negative Objective - Vital Signs Vital signs: Vital Signs Temp 97.8 F 07/29/23 08:00 Pulse 104 H 07/29/23 13:00 Resp 27 H 07/29/23 13:00 BP 107/65 07/29/23 12:00 Pulse Ox 84 L 07/29/23 13:00 FiO2 Intake & Output 07/28/23 07/29/23 07/29/23 18:59 06:59 18:59 Intake Total 1007.805 60 30 Output Total 1900 1 1000 Balance -892.195 59 -970 Weight 91.5 kg Intake: IV 800 60 30 KVO 60 30 Sodium Chloride 0.9% 1, 450 0 000 ml In Empty Bag 1 bag @ 1 ML/KG/HR 90.718 mls/ hr IV .Q11H2M [facility] Rx#: [id number] Intake, IV Titration 207.805 Amount Norepinephrine 4 mg In 117.805 Sodium Chloride 0.9% 250 ml @ 0.03 MCG/KG/MIN 10. 369 mls/hr IV .Q24H [facility] Rx#:[id number] Sodium Chloride 0.9% 1, 90 000 ml In Empty Bag 1 bag @ 1 ML/KG/HR 90.718 mls/ hr IV .Q11H2M [facility] Rx#: [id number] Output: Urine 1900 0 1000 Stool 1 Other: Voiding Method Bedside Commode Bedside Commode Bedside Commode # Voids 1 1 1 - Exam GENERAL DESCRIPTION: Middle-aged female lying in bed in no distress RESPIRATORY SYSTEM: Unlabored breathing , decreased breath sounds at bases HEART: S1 S2 regular rate and rhythm , ABDOMEN: Soft , no tenderness EXTREMITIES: Right upper extremity did have vesicular rash no worsening or extension noticed - Labs CBC & Chem 7: 07/29/23 04:31 07/29/23 04:31 Labs: Abnormal Lab Results - Last 24 Hours (Table) 07/28/23 07/29/23 07/29/23 Range/Units 20:02 04:31 04:31 RBC 3.10 L (3.80-5.40) m/uL Hgb 9.3 L (11.4-16.0) gm/dL Hct 31.1 L (34.0-46.0) % MCV 100.5 H (80.0-100.0) fL MCHC 29.8 L (31.0-37.0) g/dL Carbon Dioxide 37 H (22-30) mmol/L BUN 23 H (7-17) mg/dL Glucose 103 H (74-99) mg/dL POC Glucose (mg/dL) 215 H (70-110) mg/dL Total Protein 5.3 L (6.3-8.2) g/dL Albumin 2.8 L (3.5-5.0) g/dL 07/29/23 07/29/23 Range/Units 06:50 11:50 RBC (3.80-5.40) m/uL Hgb (11.4-16.0) gm/dL Hct (34.0-46.0) % MCV (80.0-100.0) fL MCHC (31.0-37.0) g/dL Carbon Dioxide (22-30) mmol/L BUN (7-17) mg/dL Glucose (74-99) mg/dL POC Glucose (mg/dL) 115 H 157 H (70-110) mg/dL Total Protein (6.3-8.2) g/dL Albumin (3.5-5.0) g/dL Microbiology - Last 24 Hours (Table) 07/27/23 16:09 Blood Culture - Preliminary Blood Assessment and Plan (1) Zoster Current Visit: Yes Status: Acute Code(s): B02.9 - ZOSTER WITHOUT COMPLICATIONS SNOMED Code(s): 6727882 (2) Leukocytosis Current Visit: Yes Status: Acute Code(s): D72.829 - ELEVATED WHITE BLOOD CELL COUNT, UNSPECIFIED SNOMED Code(s): 179678189 Plan: 1patient presented to hospital with pain to the right side of the chest and right upper extremity not developing a rash which is a following T1 dermatome likely herpes zoster with no evidence of any secondary cellulitis 2-patient to continue with Valtrex 1 g every 8 hours along with Lyrica for postherpetic neuralgia, and monitor clinical course closely Dictation was produced using [employer] dictation software. please excuse any grammatical, word or spelling errors. Time with Patient: Less than 30
[2023-07-29] MEDS: PIPERACILLIN-TAZOBACTAM 3.375 GM in SODIUM CHLORIDE 0.9% 100 ML IVPB SCH (15:53)
[2023-07-29 17:22] LABS: Glucose,Whole Blood 272 mg/dL (70-110)
[2023-07-29 20:05] LABS: Glucose,Whole Blood 154 mg/dL (70-110)
[2023-07-30 05:04] LABS: Basophils % (A) 0 %; Eosinophils # (A) 0.3 k/uL (0-0.7); Eosinophils % (A) 3 %; HCT 30.2 % (34.0-46.0); Hypochromasia Moderate; Lymphocytes # (A) 1.1 k/uL (1.0-4.8); Lymphocytes % (A) 10 %; MCH 29.9 pg (25.0-35.0); MCHC 29.9 g/dL (31.0-37.0); MCV 100.1 fL (80.0-100.0); Macrocytosis Slight; Mean Platelet Volume 7.2; Monocytes # (A) 0.7 k/uL (0-1.0); Monocytes % (A) 6 %; Neutrophils # (A) 8.7 k/uL (1.3-7.7); Neutrophils % (A) 79 %; Platelet Count 249 k/uL (150-450); RBC 3.02 m/uL (3.80-5.40); RDW 14.3 % (11.5-15.5)
[2023-07-30 05:15] LABS: ALT 15 U/L (4-34); AST 30 U/L (14-36); African American GFR (CKD) >90 (>60 ml/min/1.73 sqM); Albumin 2.7 g/dL (3.5-5.0); Alkaline Phosphatase 100 U/L (38-126); Blood Urea Nitrogen 18 mg/dL (7-17); Calcium 8.1 mg/dL (8.4-10.2); Chloride 97 mmol/L (98-107); Glucose 110 mg/dL (74-99); Non-African American GFR(CKD) 88 (>60 ml/min/1.73 sqM); Potassium 3.5 mmol/L (3.5-5.1); Sodium 136 mmol/L (137-145); Total Bilirubin 0.5 mg/dL (0.2-1.3); Total Protein 5.1 g/dL (6.3-8.2)
[2023-07-30 05:21] LABS: Anion Gap 1 mmol/L
[2023-07-30 05:36] LABS: Carbon Dioxide 38 mmol/L (22-30)
[2023-07-30] MEDS: POTASSIUM CHLORIDE ER 20 MEQ TAB.ER PO SCH (05:54)
[2023-07-30 06:46] LABS: Glucose,Whole Blood 135 mg/dL (70-110)
--- NOTE | 2023-07-30 07:47 | XR ---
EXAMINATION TYPE: XR chest 1V portable DATE OF EXAM: 07/30/2023 HISTORY: Shortness of breath. COMPARISON: 07/29/2023 TECHNIQUE: Single view of the chest is submitted. FINDINGS: Demonstrated are scattered senescent parenchymal change. There may be slight interval improvement in right perihilar and right basilar infiltrate. Continued p rogress studies are advised. The heart is stable. Hilar and mediastinal structures are within normal limits. Degenerative changes are seen of the dorsal spine. IMPRESSION: 1. There may be slight interval improvement in right perihilar and right basilar infiltrate. Continu ed progress studies are advised.
[2023-07-30] MEDS ORDERED: IPRATROPIUM-ALBUTEROL 3 ML NEB INHALATION PRN (08:49)
[2023-07-30] MEDS: FUROSEMIDE 10 MG/ML 10 ML VIAL IV STA (09:10)
--- NOTE | 2023-07-30 10:22 | P.PN ---
Subjective Progress Note Date: 07/30/23 Principal diagnosis: Chest pain and shortness of breath. Pulmonary consult dated July 25, 2023. 63-year-old female well-known to our service. The patient has a history of chronic hypoxemic respiratory failure secondary to COPD, and is chronically oxygen dependent. The patient presented to the emergency room, on July 23, complaining of chest pain. The pain apparently was on the right side of her chest, and radiated into her right arm. The pain started on the prior . The patient does have a history of coronary disease, and has had stents placed in the last year. In addition, she admits to chronic shortness of breath, secondary to her severe COPD. The patient did go to the catheterization laboratory on July 23, and was found to have a 40 to 50% stenosis, in the mid LAD, with a patent proximal RCA stent. In addition, on echocardiogram, the patient was found to have severe aortic stenosis, with a valve surface area of 1.6 cm, and a gradient across the aortic valve, of 100 mmHg. Lab data includes a white count 11.9, hemoglobin 10.4, hematocrit 33.8, and a platelet count of 243,000. Sodium 136, potassium 4.6, chlorides 94, CO2 36, BUN 28, creatinine 0.6. The patient's troponin was 0.047, 0.097, and 0.043. Chest x-ray was unremarkable. Progress note dated July 26, 2023. 63-year-old female well-known to our service. She was seen yesterday in consultation. The patient presented with shortness of breath and chest pain. The patient was discovered to have severe aortic stenosis. Valve surface area 0.6 cm. She also has a significant gradient across aortic valve. Unfortunately, the patient's poor lung function, prevents a surgical repair of her aortic stenosis. Options would include a transcatheter aortic valve replacement, or balloon procedure. Even with conscious sedation, she is at risk for respiratory distress, and need for intubation and mechanical ventilation. Currently, her oxygen is set at 8 L/min. She is not receiving any IV fluids. Her PFTs were reviewed. No new labs today other than a glucose of 144. Progress note dated July 27, 2023. 63-year-old female seen today in room 360. The patient has a history of severe aortic stenosis, and, she is to have a balloon valvuloplasty today by cardiology. The patient is nervous about the procedure. She continues on 5 L by nasal cannula. She is getting saline at 90 cc an hour. Her family members are in the room. No new labs today, other than a glucose of 193. Progress note dated July 28, 2023. The patient is again seen in the intensive care unit, room 254. She continues on nasal O2 at 5 L. She is on norepinephrine at 3.7 mcg/min. She is getting saline at 90 cc an hour. The patient is planning to be taken back to [facility] later today, for balloon valvuloplasty. Currently, she is reasonably stable. Current labs include a white count of 12.5, hemoglobin 10.1, hematocrit 33.0, and a platelet count of 283,000. Sodium 137, potassium 3.9, chloride 98, CO2 34, BUN 35, creatinine 0.85. Glucose is 131. Magnesium 2.2 calcium 8.7. Procalcitonin level is 0.33. Progress note dated July 29, 2023. The patient is seen today in room 254. The patient had balloon valvuloplasty yesterday, for her severe aortic stenosis. Currently, she is on 15 L high flow oxygen. Saturations are in the low 90s. She is getting saline at KVO. Her norepinephrine has been off since yesterday. The procedure was done by Dr. Hinkle. This morning she will get Lasix 60 mg IV push, once. Clinically, the patient is doing okay. White count is 9.5, hemoglobin 9.3, hematocrit 31.1, platelet count is normal. Sodium 137, potassium 3.8, chloride 98, CO2 37, BUN 23, creatinine 0.64. Albumin is 2.8. The patient's chest x-ray shows some patchy infiltrate right lower lobe, and some fluid in the minor fissure. Progress note dated July 30, 2023. 63-year-old female seen in room 254. The patient continues on 15 L high flow oxygen. We have not been able to wean her down from that. The patient is not receiving any IV fluids. Today, she received Lasix 60 mg IV push. In addition, the patient is on DuoNebs, 4 times daily and as needed, and will add budesonide, and formoterol, usual doses. White count 11, hemoglobin 9, hematocrit 30.2, platelet count 249,000. Sodium 136, potassium 3.5, chloride 97, CO2 38, BUN 18, creatinine 0.74. Glucose is 88. Albumin is 2.7. Blood cultures are negative. Chest x-ray shows bilateral infiltrates, which may be slightly improved. Objective - Vital Signs Vital signs: Vital Signs Temp 98.0 F 07/30/23 08:00 Pulse 82 07/30/23 09:00 Resp 19 07/30/23 09:00 BP 93/61 07/30/23 09:00 Pulse Ox 89 L 07/30/23 09:00 FiO2 Intake & Output 07/29/23 07/30/23 07/30/23 18:59 06:59 18:59 Intake Total 130 100 100 Output Total 1500 550 250 Balance -1370 -450 -150 Weight 91.7 kg Intake: IV 130 100 100 KVO 30 Piperacillin-Tazobactam 3 100 100 100 .375 gm In Sodium Chloride 0.9% 100 ml @ 25 mls/hr IVPB Q8HR [facility] [place] Rx# :[id number] Output: Urine 1500 550 250 Other: Voiding Method Bedside Commode Bedside Commode Bedside Commode # Voids 1 1 1 - Exam No acute distress, oriented 3. The patient is currently on 15 L high flow oxygen. Saturations are in the low 90s. HEENT examination is grossly unremarkable. Mucous membranes are moist. No oral lesions. Neck supple. Full range of motion. No adenopathy thyromegaly or neck vein distention. Cardiovascular examination reveals regular rhythm rate. S1-S2 normal. No S3 or S4. No discernible murmur noted. Heart sounds are distant. Heart rate 82 bpm. Lungs reveal diminished bilateral breath sounds. Scattered rhonchi and wheezes are noted. No crackles. Breath sounds equal bilaterally. Saturations are in the low 90s. Abdomen soft but obese. Bowel sounds are noted. Extremities are intact. No cyanosis clubbing or edema. Skin is without rash or lesion. Neurologic examination is brief but nonfocal. - Labs CBC & Chem 7: 07/30/23 04:10 07/30/23 04:10 Labs: Abnormal Lab Results - Last 24 Hours (Table) 07/29/23 07/29/23 07/29/23 Range/Units 04:31 11:50 17:21 WBC (3.8-10.6) k/uL RBC (3.80-5.40) m/uL Hgb (11.4-16.0) gm/dL Hct (34.0-46.0) % MCV (80.0-100.0) fL MCHC (31.0-37.0) g/dL Neutrophils # (1.3-7.7) k/uL Sodium (137-145) mmol/L Chloride (98-107) mmol/L Carbon Dioxide (22-30) mmol/L BUN (7-17) mg/dL Glucose (74-99) mg/dL POC Glucose (mg/dL) 157 H 272 H (70-110) mg/dL Calcium (8.4-10.2) mg/dL Total Protein (6.3-8.2) g/dL Albumin (3.5-5.0) g/dL Procalcitonin 0.14 H (0.02-0.09) ng/mL 07/29/23 07/30/23 07/30/23 Range/Units 20:04 04:10 04:10 WBC 11.0 H (3.8-10.6) k/uL RBC 3.02 L (3.80-5.40) m/uL Hgb 9.0 L (11.4-16.0) gm/dL Hct 30.2 L (34.0-46.0) % MCV 100.1 H (80.0-100.0) fL MCHC 29.9 L (31.0-37.0) g/dL Neutrophils # 8.7 H (1.3-7.7) k/uL Sodium 136 L (137-145) mmol/L Chloride 97 L (98-107) mmol/L Carbon Dioxide 38 H (22-30) mmol/L BUN 18 H (7-17) mg/dL Glucose 110 H (74-99) mg/dL POC Glucose (mg/dL) 154 H (70-110) mg/dL Calcium 8.1 L (8.4-10.2) mg/dL Total Protein 5.1 L (6.3-8.2) g/dL Albumin 2.7 L (3.5-5.0) g/dL Procalcitonin (0.02-0.09) ng/mL 07/30/23 Range/Units 06:44 WBC (3.8-10.6) k/uL RBC (3.80-5.40) m/uL Hgb (11.4-16.0) gm/dL Hct (34.0-46.0) % MCV (80.0-100.0) fL MCHC (31.0-37.0) g/dL Neutrophils # (1.3-7.7) k/uL Sodium (137-145) mmol/L Chloride (98-107) mmol/L Carbon Dioxide (22-30) mmol/L BUN (7-17) mg/dL Glucose (74-99) mg/dL POC Glucose (mg/dL) 135 H (70-110) mg/dL Calcium (8.4-10.2) mg/dL Total Protein (6.3-8.2) g/dL Albumin (3.5-5.0) g/dL Procalcitonin (0.02-0.09) ng/mL Microbiology - Last 24 Hours (Table) 07/27/23 16:09 Blood Culture - Preliminary Blood Assessment and Plan Assessment: Coronary artery disease, involving the LAD, with 40 to 50% stenosis, and a patent proximal RCA stent. Severe aortic stenosis with a valve surface area of 0.6 cm, S/P BVP, July 28, 2023, postop day #2. Possible aspiration pneumonia, right lung. Severe chronic hypoxemic and hypercapnic respiratory failure, secondary to COPD. History of hyperlipidemia. History of hypertension. History of chronic low back pain. Obesity. Aortic valve stenosis. History of tracheobronchitis. Prior history of heavy tobacco use. Plan: Plan dated July 25, 2023. The patient is admitted with a possible non-ST segment elevation myocardial infarction. The patient went to the cardiac catheterization laboratory in July 23, and was found to have a 40 to 50% obstruction/stenosis of the LAD. In addition, the patient had a patent stent to the RCA. In addition, the patient was found to have severe aortic stenosis, with a significant gradient across the valve, and a valve surface area 0.6 cm. The patient in our opinion would not be a great candidate for surgery given the severity of her chronic lung disease. Nonetheless, we will follow along, and make recommendations were appropriate. Prognosis is certainly guarded. Plan dated July 26, 2023. The patient's lung function are rather poor. The patient will be at high operative risk for any surgical procedure, even 1 done with conscious sedation. Labs, x-rays, and medications are reviewed. The patient is in the process of deciding what she would want done. She has been seen by cardiothoracic surgery. We will continue to follow and make recommendations along the way. Currently, she is using oxygen at 8 L/min. It can be weaned down. Plan dated July 27, 2023. The patient is scheduled to have a balloon valvuloplasty today. It will be done by cardiology. The patient was not excited about having a transcatheter aortic valve replacement, or surgical aortic valve replacement. In fact, in my opinion, the patient will be extremely high risk, given her very poor lung function. Labs, x-rays, medications are reviewed. We will continue to follow the patient, and make recommendations along the way. She is currently on 5 L by nasal cannula. Plan dated July 28, 2023. The patient is seen today in room 254. She is currently on oxygen at 5 L by nasal cannula. She continues on norepinephrine at 3.7 mcg/min. In addition, the patient is getting saline at 90 cc an hour. The patient is planning to be taken back to the catheterization laboratory, for balloon valvuloplasty. The patient has severe aortic stenosis with a valve surface area of 0.6 cm. Labs, x-rays, and medications are reviewed. Prognosis is guarded. The patient has very severe lung function. We will continue to follow and make recommendations along the way. Plan dated July 29, 2023. The patient is seen today in room 254. She is now on 15 L high flow O2. Previously, she was getting oxygen at 5 L by nasal cannula. Her chest x-ray shows a concerning infiltrate in the right lower lobe. She may have aspirated during the procedure. The patient had balloon valvuloplasty done yesterday, July 27. She is seen in the intensive care unit. The patient has been off of norepinephrine since yesterday. Labs, x-rays, and medications are reviewed. I am going to add Zosyn to her regimen. Additional recommendations and suggestions are forthcoming. We will continue to follow, make recommendations along weight. The patient is still critically ill. Prognosis is guarded. Plan dated July 30, 2023. The patient's overall condition remains critical. She continues on high flow nasal O2 at 15. In addition, she will get Lasix 60 mg IV push today. She had a reasonable amount of diuresis from Lasix yesterday. Her chest x-ray may be slightly improved. In addition, the patient will be on updrafts, 4 times daily and as needed, and we add budesonide, and formoterol at usual doses, twice a day. Labs, x-rays, and medications are reviewed. The patient's overall prognosis remains guarded. She is postop day #2, status post balloon valvuloplasty, for her severe aortic stenosis. Time with Patient: Greater than 30
[2023-07-30] MEDS: IPRATROPIUM-ALBUTEROL 3 ML NEB INHALATION SCH (11:08)
[2023-07-30 11:09] LABS: Glucose,Whole Blood 145 mg/dL (70-110)
--- NOTE | 2023-07-30 13:27 | PN ---
PROGRESS NOTE SUBJECTIVE: Blanka is a 63-year-old lady who was admitted to hospital with congestive heart failure, aortic stenosis, and COPD exacerbation. She underwent balloon valvuloplasty of the aortic valve and has been feeling better. Not on pressors anymore. Requiring Lasix from time to time. She is also on nebulizers. She had shingles involving right arm. OBJECTIVE: VITAL SIGNS: Heart rate is 76 beats per minute, blood pressure is 101/78, and respiratory rate is 18. CHEST: Reveals good air entry bilaterally. HEART: Reveals first and second heart sounds. Ejection systolic murmur in the aortic area. ABDOMEN: Soft. EXTREMITIES: Did not reveal any edema. Peripheral pulses are palpable. ASSESSMENT AND PLAN: 1. Severe aortic stenosis, status post balloon valvuloplasty as a bridge procedure. 2. COPD exacerbation. 3. Congestive heart failure. Continue with Lasix, nebulizers, and rest of her medications. LABS: Show a hemoglobin of 9, platelet count is 249, potassium is 3.5, creatinine is 0.7. MMODL / IJN: [id number] /
--- NOTE | 2023-07-30 13:32 | P.PN ---
Subjective Progress Note Date: 07/30/23 This is a pleasant 62 years old female with past medical history of multiple medical problems including COPD and chronic hypoxic respiratory failure on 5 L oxygen at home and she follows up with Dr. MACARIO for her COPD. Other medical problems including aortic stenosis status post TAVR, coronary artery disease s/p stent and depression and anxiety. Patient presents because of pain in her right shoulder radiating to her right arm and right chest for a few days since , 110/10 in severity, no histor y of trauma or fall. Pain described as nonspecific with no precipitating or relieving factors. She denies dyspnea she has dry cough. She is using 5 L of oxygen at home. No change in urine or bowel habits. No headache dizziness weakness or numbness. She denies current smoking alcohol or illicit drugs Patient is hemodynamically stable, afebrile She has unremarkable CBC, INR, BMP, liver enzymes, lipase Troponin is elevated 0.04 Chest x-ray is negative for acute process EKG showing atrial tachycardia with short NM interval but no significant ST-T changes. 07/25/2023 Patient is status post cardiac cath yesterday showing mid LAD stenosis 40-50% with patent RCA stent, also shows evidence of severe aortic stenosis, therefore cardiothoracic surgery team were consulted however patient is known not to follow-up on patient, as confirmed with the patient and daughter at bedside today who states that her mom usually go home call Dr. trejo isn't canceled her appointment and she does not follow up Further workup per cardiothoracic surgery team is requested here On admission yesterday she has limited air entry and she was placed on IV Solu- Medrol or acute COPD exacerbation, whiletoday air flow is much better although she has scattered wheezing and she still mildly tachypneic and therefore we consulted pulmonary service currently she is placed on prednisone 5 mg. she is to have mild to moderate right shoulder pain mostly related to her cardiac disease. Some elements of osteoarthritis. her heparin drip was stopped , 07/26/2023 Patient breathing is better, no chest pain today But she still complaining from more severe right shoulder pain. Patient has this pain improved with the steroids but when switched to oral prednisone 5 mg the pain increased today again. She has more rash in her medial arm and forearm and the arm. For short distance with maculopapular rash with possible some vesicles been forming with the pain and tenderness goes with the rash and around it, signs suspicious for shingles. Therefore we are going to start her on Abbot for pain management and valacyclovir and asked ID team to reevaluate. Also will put on isolation till cleared. She is hemodynamically stable She is being evaluated by cardiothoracic surgery team as well. 07/27/2023 Patient is awake and alert she denies chest pain but she still complaining from right shoulder pain and neuropathic pain along her rash in the right armpit and the surrounding skin down to the left wrist along the medial side, rash is getting somewhat crusted partially. Breathing is stable However through the day her blood pressure became on the low side She is getting normal saline running at 90 mL/h Cardiology team and planning for balloon valvuloplasty for her severe aortic stenosis She is currently covered with valacyclovir, Lyrica, prednisone 5 mg Oral Lasix and Farxiga 07/27. Patient seen examined. States right shoulder pain has improved, lesions on the right arm has improved. 07/28. Patient seen and examined. s/p balloon aortic valvuloplasty with a 28mm Z Med balloon on 07/27. Currently on 15 L of oxygen. Critical care ordered 1 dose of 60 mg of Lasix IV 07/29. Patient seen and examined. Currently sitting up in the chair, states she feels better compared to yesterday. Currently on 15 L of oxygen. Critical care have ordered 60 mg of IV Lasix. REVIEW OF SYSTEMS: CONSTITUTIONAL: No fever, no malaise,. CARDIOVASCULAR: No chest pain, no palpitations, no syncope. PULMONARY: As mentioned above, GASTROINTESTINAL: No diarrhea, no nausea, no vomiting, no abdominal pain. NEUROLOGICAL: No headaches, no weakness, PHYSICAL EXAMINATION: GENERAL: The patient is alert and oriented x3, not in any acute distress. Well developed, well nourished. HEENT: Pupils are round and equally reacting to light. EOMI. No scleral icterus. No conjunctival pallor. Normocephalic, atraumatic. No pharyngeal erythema. No thyromegaly. CARDIOVASCULAR: S1 and S2 present. PULMONARY: Coarse breath sound bilaterally, no wheezing or crackles. ABDOMEN: Soft, nontender, nondistended, normoactive bowel sounds. No palpable organomegaly. MUSCULOSKELETAL: No joint swelling or deformity. EXTREMITIES: No cyanosis, clubbing, or pedal edema. NEUROLOGICAL: Gross neurological examination did not reveal any focal deficits. SKIN: No rashes. Assessment and plan Right shoulder pain/chest pain with right upper extremity rash along the medial side, shingles Non-STEMI, status post cardiac catheterization with no progression of CAD Coronary artery disease with previous PCI, most recently March 2023 with PCI of the proximal RCA Ischemic cardiomyopathy, ejection fraction 45%, with improved EF now 60 to 65% Severe aortic stenosis Mild pulmonary hypertension Acute COPD exacerbation. Significantly improved acute on chronic hypoxic respiratory failure. Resolved Atrial tachycardia with short NM interval Coronary artery disease s/p stent History of arctic stenosis s/p TAVR Obesity with BMI of 36.6 History of depression and anxiety, no acute process. Hypertension Hyperlipidemia Plan: Monitor vital sign Monitor CBC Monitor CMP s/p balloon aortic valvuloplasty with a 28mm Z Med balloon on 07/27. Continue valacyclovir, Lyrica Continue with aspirin, Lipitor Patient being given 60 mg of IV Lasix Continue Toprol 25 mg twice daily prednisone 5 mg daily Continue breathing treatment and bronchodilator Cardiology following CT surgery following ID following Labs and medication were reviewed.. Continue same treatment. Continue with symptomatic treatment. Resume home medication. Monitor labs and vitals. DVT and GI prophylaxis. Further recommendations as per clinical course of the patient Dictation was produced using [employer] dictation software. please excuse any grammatical, word or spelling errors. Objective - Vital Signs Vital signs: Vital Signs Temp 98.0 F 07/30/23 08:00 Pulse 94 07/30/23 13:00 Resp 16 07/30/23 13:00 BP 93/54 07/30/23 13:00 Pulse Ox 86 L 07/30/23 13:00 FiO2 Intake & Output 07/29/23 07/30/23 07/30/23 18:59 06:59 18:59 Intake Total 130 100 100 Output Total 1574 094 0112 Balance -1370 -450 -1350 Weight 91.7 kg Intake: IV 130 100 100 KVO 30 Piperacillin-Tazobactam 3 100 100 100 .375 gm In Sodium Chloride 0.9% 100 ml @ 25 mls/hr IVPB Q8HR [facility] Rx# :[id number] Output: Urine 4598 [id number] 1750 Other: Voiding Method Bedside Commode Bedside Commode Bedside Commode # Voids 1 1 1 - Labs CBC & Chem 7: 07/30/23 04:10 07/30/23 04:10 Labs: Abnormal Lab Results - Last 24 Hours (Table) 07/29/23 07/29/23 07/29/23 Range/Units 04:31 17:21 20:04 WBC (3.8-10.6) k/uL RBC (3.80-5.40) m/uL Hgb (11.4-16.0) gm/dL Hct (34.0-46.0) % MCV (80.0-100.0) fL MCHC (31.0-37.0) g/dL Neutrophils # (1.3-7.7) k/uL Sodium (137-145) mmol/L Chloride (98-107) mmol/L Carbon Dioxide (22-30) mmol/L BUN (7-17) mg/dL Glucose (74-99) mg/dL POC Glucose (mg/dL) 272 H 154 H (70-110) mg/dL Calcium (8.4-10.2) mg/dL Total Protein (6.3-8.2) g/dL Albumin (3.5-5.0) g/dL Procalcitonin 0.14 H (0.02-0.09) ng/mL 07/30/23 07/30/23 07/30/23 Range/Units 04:10 04:10 06:44 WBC 11.0 H (3.8-10.6) k/uL RBC 3.02 L (3.80-5.40) m/uL Hgb 9.0 L (11.4-16.0) gm/dL Hct 30.2 L (34.0-46.0) % MCV 100.1 H (80.0-100.0) fL MCHC 29.9 L (31.0-37.0) g/dL Neutrophils # 8.7 H (1.3-7.7) k/uL Sodium 136 L (137-145) mmol/L Chloride 97 L (98-107) mmol/L Carbon Dioxide 38 H (22-30) mmol/L BUN 18 H (7-17) mg/dL Glucose 110 H (74-99) mg/dL POC Glucose (mg/dL) 135 H (70-110) mg/dL Calcium 8.1 L (8.4-10.2) mg/dL Total Protein 5.1 L (6.3-8.2) g/dL Albumin 2.7 L (3.5-5.0) g/dL Procalcitonin (0.02-0.09) ng/mL 07/30/23 Range/Units 11:07 WBC (3.8-10.6) k/uL RBC (3.80-5.40) m/uL Hgb (11.4-16.0) gm/dL Hct (34.0-46.0) % MCV (80.0-100.0) fL MCHC (31.0-37.0) g/dL Neutrophils # (1.3-7.7) k/uL Sodium (137-145) mmol/L Chloride (98-107) mmol/L Carbon Dioxide (22-30) mmol/L BUN (7-17) mg/dL Glucose (74-99) mg/dL POC Glucose (mg/dL) 145 H (70-110) mg/dL Calcium (8.4-10.2) mg/dL Total Protein (6.3-8.2) g/dL Albumin (3.5-5.0) g/dL Procalcitonin (0.02-0.09) ng/mL Microbiology - Last 24 Hours (Table) 07/27/23 16:09 Blood Culture - Preliminary Blood
--- NOTE | 2023-07-30 14:34 | P.PN ---
Subjective Progress Note Date: 07/30/23 Principal diagnosis: Reason for follow-up is right T10 dermatome shingles Patient is a 63-year-old female past medical history significant for COPD coronary artery disease [place] former smoker presenting to the hospital for evaluation of chest pain on the right side of her chest and is also complaining of pain to the right upper arm, patient did develop a rash prompting this consultation and has been diagnosed with shingles. On today's evaluation that is 07/30/2023, Patient is afebrile patient is currently on 15 L high flow oxygen and denies having any shortness of breath, the patient denies any chest pain or cough, the patient denies any nausea vomiting did not have any abdominal pain and no diarrhea, pain to the right upper extremity rash area has decreased in intensity. Patient white count is 11,000, creatinine 0.74 culture have been negative so far Objective - Vital Signs Vital signs: Vital Signs Temp 98.0 F 07/30/23 08:00 Pulse 93 07/30/23 14:00 Resp 22 07/30/23 14:00 BP 93/54 07/30/23 13:00 Pulse Ox 89 L 07/30/23 14:00 FiO2 Intake & Output 07/29/23 07/30/23 07/30/23 18:59 06:59 18:59 Intake Total 130 100 100 Output Total 9533 232 1907 Balance -1370 -450 -1350 Weight 91.7 kg Intake: IV 130 100 100 KVO 30 Piperacillin-Tazobactam 3 100 100 100 .375 gm In Sodium Chloride 0.9% 100 ml @ 25 mls/hr IVPB Q8HR [facility] Rx# :[id number] Output: Urine [id number] [id number] [id number] Other: Voiding Method Bedside Commode Bedside Commode Bedside Commode # Voids 1 1 1 - Exam GENERAL DESCRIPTION: Middle-aged female lying in bed in no distress RESPIRATORY SYSTEM: Unlabored breathing , decreased breath sounds at bases HEART: S1 S2 regular rate and rhythm , ABDOMEN: Soft , no tenderness EXTREMITIES: Right upper extremity did have vesicular rash no worsening or extension noticed - Labs CBC & Chem 7: 07/30/23 04:10 07/30/23 04:10 Labs: Abnormal Lab Results - Last 24 Hours (Table) 07/29/23 07/29/23 07/29/23 Range/Units 04:31 17:21 20:04 WBC (3.8-10.6) k/uL RBC (3.80-5.40) m/uL Hgb (11.4-16.0) gm/dL Hct (34.0-46.0) % MCV (80.0-100.0) fL MCHC (31.0-37.0) g/dL Neutrophils # (1.3-7.7) k/uL Sodium (137-145) mmol/L Chloride (98-107) mmol/L Carbon Dioxide (22-30) mmol/L BUN (7-17) mg/dL Glucose (74-99) mg/dL POC Glucose (mg/dL) 272 H 154 H (70-110) mg/dL Calcium (8.4-10.2) mg/dL Total Protein (6.3-8.2) g/dL Albumin (3.5-5.0) g/dL Procalcitonin 0.14 H (0.02-0.09) ng/mL 07/30/23 07/30/23 07/30/23 Range/Units 04:10 04:10 06:44 WBC 11.0 H (3.8-10.6) k/uL RBC 3.02 L (3.80-5.40) m/uL Hgb 9.0 L (11.4-16.0) gm/dL Hct 30.2 L (34.0-46.0) % MCV 100.1 H (80.0-100.0) fL MCHC 29.9 L (31.0-37.0) g/dL Neutrophils # 8.7 H (1.3-7.7) k/uL Sodium 136 L (137-145) mmol/L Chloride 97 L (98-107) mmol/L Carbon Dioxide 38 H (22-30) mmol/L BUN 18 H (7-17) mg/dL Glucose 110 H (74-99) mg/dL POC Glucose (mg/dL) 135 H (70-110) mg/dL Calcium 8.1 L (8.4-10.2) mg/dL Total Protein 5.1 L (6.3-8.2) g/dL Albumin 2.7 L (3.5-5.0) g/dL Procalcitonin (0.02-0.09) ng/mL 04/07/24 Range/Units 11:07 WBC (3.8-10.6) k/uL RBC (3.80-5.40) m/uL Hgb (11.4-16.0) gm/dL Hct (34.0-46.0) % MCV (80.0-100.0) fL MCHC (31.0-37.0) g/dL Neutrophils # (1.3-7.7) k/uL Sodium (137-145) mmol/L Chloride (98-107) mmol/L Carbon Dioxide (22-30) mmol/L BUN (7-17) mg/dL Glucose (74-99) mg/dL POC Glucose (mg/dL) 145 H (70-110) mg/dL Calcium (8.4-10.2) mg/dL Total Protein (6.3-8.2) g/dL Albumin (3.5-5.0) g/dL Procalcitonin (0.02-0.09) ng/mL Microbiology - Last 24 Hours (Table) 07/27/23 16:09 Blood Culture - Preliminary Blood Assessment and Plan (1) Zoster Current Visit: Yes Status: Acute Code(s): B02.9 - ZOSTER WITHOUT COMPLICATIONS SNOMED Code(s): 0637663 (2) Leukocytosis Current Visit: Yes Status: Acute Code(s): D72.829 - ELEVATED WHITE BLOOD CELL COUNT, UNSPECIFIED SNOMED Code(s): 361676734 Plan: 1patient presented to hospital with pain to the right side of the chest and right upper extremity not developing a rash which is a following T1 dermatome likely herpes zoster with no evidence of any secondary cellulitis 2-patient rash to the right upper arm decreased in intensity no evidence of cellulitis, patient to continue with Valtrex 1 g every 8 hours along with Lyrica for postherpetic neuralgia, and monitor clinical course closely Dictation was produced using [employer] software. please excuse any grammatical, word or spelling errors. Time with Patient: Less than 30
[2023-07-30 16:43] LABS: Glucose,Whole Blood 376 mg/dL (70-110)
[2023-07-30 20:01] LABS: Glucose,Whole Blood 150 mg/dL (70-110)
[2023-07-30] MEDS: FORMOTEROL FUMARATE 20 MCG/2 ML NEBU INHALATION SCH (21:06)
[2023-07-30] MEDS: BUDESONIDE 1 MG/2 ML NEBU INHALATION SCH (21:06)
[2023-07-31 04:24] LABS: Basophils # (A) 0.1 k/uL (0-0.2); Basophils % (A) 0 %; Eosinophils # (A) 0.4 k/uL (0-0.7); Eosinophils % (A) 3 %; HCT 30.1 % (34.0-46.0); HGB 9.2 gm/dL (11.4-16.0); Hypochromasia Slight; Lymphocytes # (A) 1.5 k/uL (1.0-4.8); Lymphocytes % (A) 11 %; MCH 30.5 pg (25.0-35.0); MCHC 30.6 g/dL (31.0-37.0); MCV 99.9 fL (80.0-100.0); Mean Platelet Volume 7.4; Monocytes % (A) 7 %; Neutrophils # (A) 10.3 k/uL (1.3-7.7); Neutrophils % (A) 76 %; Platelet Count 254 k/uL (150-450); RBC 3.02 m/uL (3.80-5.40); RDW 14.2 % (11.5-15.5); WBC 13.4 k/uL (3.8-10.6)
[2023-07-31 04:37] LABS: African American GFR (CKD) >90 (>60 ml/min/1.73 sqM); Anion Gap 5 mmol/L; Blood Urea Nitrogen 17 mg/dL (7-17); Calcium 8.3 mg/dL (8.4-10.2); Carbon Dioxide 40 mmol/L (22-30); Chloride 92 mmol/L (98-107); Glucose 128 mg/dL (74-99); Non-African American GFR(CKD) 80 (>60 ml/min/1.73 sqM); Potassium 3.2 mmol/L (3.5-5.1); Sodium 137 mmol/L (137-145)
[2023-07-31] MEDS: POTASSIUM CHLORIDE ER 20 MEQ TAB.ER PO SCH ×2 (05:12→11:38)
[2023-07-31 06:35] LABS: Glucose,Whole Blood 150 mg/dL (70-110)
--- NOTE | 2023-07-31 08:43 | XR ---
EXAMINATION TYPE: XR chest 1V portable DATE OF EXAM: 07/31/2023 HISTORY: Shortness of breath. COMPARISON: 07/30/2023 TECHNIQUE: Single view of the chest is submitted. FINDINGS: Demonstrated are scattered senescent parenchymal change. Patchy infiltrate right mid and right lower lung zones persists and appears to have progressed in the interval. Continued progress studies are recommended. The heart is stable. Hilar and mediastinal structures are within normal limits. Degenerative changes are seen of the dorsal spine. IMPRESSION: 1. Patchy infiltrate right mid and right lower lung zones persists and appears to have progressed in the interval. Continued progress studies are recommended.
--- NOTE | 2023-07-31 10:07 | P.PN ---
Subjective Progress Note Date: 07/31/23 63-year-old female well-known to our service. The patient has a history of chronic hypoxemic respiratory failure secondary to COPD, and is chronically oxygen dependent. The patient presented to the emergency room, on July 23, complaining of chest pain. The pain apparently was on the right side of her chest, and radiated into her right arm. The pain started on the prior . The patient does have a history of coronary disease, and has had stents placed in the last year. In addition, she admits to chronic shortness of breath, secondary to her severe COPD. The patient did go to the catheterization laboratory on July 23, and was found to have a 40 to 50% stenosis, in the mid LAD, with a patent proximal RCA stent. In addition, on echocardiogram, the patient was found to have severe aortic stenosis, with a valve surface area of 1.6 cm, and a gradient across the aortic valve, of 100 mmHg. The patient underwent a valvuloplasty by cardiology. On today's evaluation of 07/31/2023, the patient is being seen for a follow-up. The patient is calm and comfortable. She is still having oxygen saturations on high flow oxygen and the patient will be placed on Airvo to maintain an oxygen saturation above 90%. The patient has advanced COPD and the patient is typically on oxygen at 5 L at baseline. The patient is also developed a right lower lobe consolidation consistent with pneumonia and the patient remains on IV Zosyn. Earlier, the patient was not nonabrasive fullface mask and the patient will be switched to Airvo. IV fluids are currently at KVO. The procalcitonin level is at 0.14. Hemodynamically stable and the patient is on no pressors. White cell count at 13.4 with a hemoglobin 9.2 and a platelet count of 254. BUN is at 17 with a creatinine of 0.8 and a sodium levels at 137. Potassium level is at 3.8. The patient is receiving Lasix 40 mg p.o. daily. The patient is on prednisone 5 mg p.o. daily. The patient also has developed shingles in the right upper extremity and the patient is currently on Valtrex. Remains on DuoNeb updrafts. Remains on a combination of Perforomist and Pulmicort updrafts twice a day. As mentioned, chest x-ray showing a right lower lobe consolidation. Objective - Vital Signs Vital signs: Vital Signs Temp 97.7 F 07/31/23 04:00 Pulse 78 07/31/23 07:00 Resp 15 07/31/23 07:00 BP 92/60 07/31/23 07:00 Pulse Ox 99 07/31/23 07:00 FiO2 Intake & Output 07/30/23 07/31/23 07/31/23 18:59 06:59 18:59 Intake Total 200 100 Output Total 2150 750 0 Balance -1950 -650 0 Weight 91.1 kg Intake: IV 200 100 Piperacillin-Tazobactam 3 200 100 .375 gm In Sodium Chloride 0.9% 100 ml @ 25 mls/hr IVPB Q8HR [facility] Rx# :[id number] Output: Urine 2150 750 0 Other: Voiding Method Bedside Commode Bedside Commode # Voids 1 1 - Exam No acute distress, oriented 3. The patient is currently on Airvo and the patient will be taken off to 100% on the breather facemask. She has obvious cushingoid features and she is morbidly obese with a BMI of 36.7. HEENT examination is grossly unremarkable. Mucous membranes are moist. No oral lesions. Neck supple. Full range of motion. No adenopathy thyromegaly or neck vein distention. Cardiovascular examination reveals regular rhythm rate. S1-S2 normal. No S3 or S4. Harsh systolic ejection murmur over the left apex and left lateral sternal border. Heart sounds are distant. Lungs reveal diminished bilateral breath sounds. Scattered rhonchi and wheezes are noted. No crackles. Breath sounds equal bilaterally Abdominal exam revealed normal bowel sounds. The abdomen was soft, non-tender, and without masses, organomegaly, or appreciable enlargement of the abdominal aorta. Extremities are intact. No cyanosis clubbing or edema. Skin is without rash or lesion. Shingles with right lesions in the right upper extremity. No open vesicles at this point in time. Neurologically, the patient is awake and alert and the patient does not have any focal neurological deficit. Cranial nerves are essentially intact. - Labs CBC & Chem 7: 07/31/23 03:18 07/31/23 09:13 Labs: Abnormal Lab Results - Last 24 Hours (Table) 07/30/23 07/30/23 07/30/23 Range/Units 11:07 16:41 20:00 WBC (3.8-10.6) k/uL RBC (3.80-5.40) m/uL Hgb (11.4-16.0) gm/dL Hct (34.0-46.0) % MCHC (31.0-37.0) g/dL Neutrophils # (1.3-7.7) k/uL Potassium (3.5-5.1) mmol/L Chloride (98-107) mmol/L Carbon Dioxide (22-30) mmol/L Glucose (74-99) mg/dL POC Glucose (mg/dL) 145 H 376 H 150 H (70-110) mg/dL Calcium (8.4-10.2) mg/dL 07/31/23 07/31/23 07/31/23 Range/Units 03:18 03:18 06:34 WBC 13.4 H (3.8-10.6) k/uL RBC 3.02 L (3.80-5.40) m/uL Hgb 9.2 L (11.4-16.0) gm/dL Hct 30.1 L (34.0-46.0) % MCHC 30.6 L (31.0-37.0) g/dL Neutrophils # 10.3 H (1.3-7.7) k/uL Potassium 3.2 L (3.5-5.1) mmol/L Chloride 92 L (98-107) mmol/L Carbon Dioxide 40 H (22-30) mmol/L Glucose 128 H (74-99) mg/dL POC Glucose (mg/dL) 150 H (70-110) mg/dL Calcium 8.3 L (8.4-10.2) mg/dL Microbiology - Last 24 Hours (Table) 07/27/23 16:09 Blood Culture - Preliminary Blood Assessment and Plan Plan: Acute on chronic hypoxic respiratory failure. Typically the patient is on 5 L of oxygen by nasal cannula. Currently she is 100% on her breather facemask. The patient has developed a right lower lobe consolidation consistent with pneumonia and the patient is currently on IV Zosyn. The patient will be transit ion to Airvo and the FiO2 will be titrated accordingly. The flow will be also titrated accordingly. Coronary artery disease, involving the LAD, with 40 to 50% stenosis, and a patent proximal RCA stent. Severe aortic stenosis with a valve surface area of 0.6 cm, S/P BVP, July 28, 2023, postop day #3 Right lower lobe consolidation/pneumonia, consider hospital-acquired pneumonia versus aspiration. chronic hypoxemic and hypercapnic respiratory failure, secondary to COPD. Shingles involving the right upper extremity currently on Valtrex History of hyperlipidemia. History of hypertension. History of chronic low back pain. Obesity. Aortic valve stenosis. History of tracheobronchitis. Prior history of heavy tobacco use. Plan: Transition this patient to Airvo and titrate oxygen flow and saturation to maintain a saturation above 90% Continue bronchodilators with DuoNeb updrafts Continue on Perforomist and Pulmicort nebulized treatments twice a day Prednisone 5 mg p.o. daily IV Zosyn Continue oral Lasix No need for pressors at this point in time Continue Valtrex for shingles of the right upper extremity Keep the patient on KVO IV fluids Incentive spirometer Increase mobility Daily chest x-rays Will continue to follow Condition remains critical and this evaluation was done more than 30 minutes. Time with Patient: Greater than 30
--- NOTE | 2023-07-31 11:32 | P.PN ---
Subjective Progress Note Date: 07/31/23 the patient is a 63-year-old female who presents to the hospital with increased shortness of breath. She has a history of severe aortic stenosis and was initially being followed by our TAVR clinic. Patient has been admitted with COPD and heart failure exacerbation. She underwent aortic balloon valvuloplasty on 07/28/[address] Hinkle. She tolerated the procedure well, but remains on high flow nasal cannula.gradient improved to 38 mmHg. the patient was interviewed and examined resting comfortably in bed. The patient states she does have shortness of breath with minimal exertion. No chest pain or chest pressure. GENERAL: Well-appearing, well-nourished and in no acute distress. NECK: Supple without JVD or thyromegaly. LUNGS: Breath sounds clear to auscultation bilaterally. Respiration equal and unlabored. No wheezes, rales or rhonchi. HEART: Regular rate and rhythm. Systolic ejection murmur. S1 and S2 heard. EXTREMITIES: Normal range of motion, no edema. No clubbing or cyanosis. Perip heral pulses intact and strong.right groin site has no significant bruising or hematoma TELEMETRY: sinus mechanism overnight IMPRESSION: severe aortic stenosis Status post aortic balloon valvuloplasty Congestive heart failure. History of COPD on home oxygen PLAN: Continue to wean from high flow oxygen as tolerated patient is not a candidate for surgical intervention and TAVR procedure is complicated by enlarged ascending aorta Patient will follow up outpatient with Dr. Hinkle for long-term strategy I am dictating on behalf of Dr Kendrick Olson's history/physical and assessment/plan. Objective - Vital Signs Vital signs: Vital Signs Temp 97.7 F 07/31/23 04:00 Pulse 91 07/31/23 08:11 Resp 15 07/31/23 07:00 BP 92/60 07/31/23 07:00 Pulse Ox 96 07/31/23 08:15 FiO2 59 07/31/23 08:15 Intake & Output 07/30/23 07/31/23 07/31/23 18:59 06:59 18:59 Intake Total 200 100 Output Total 2150 750 0 Balance -1950 -650 0 Weight 91.1 kg Intake: IV 200 100 Piperacillin-Tazobactam 3 200 100 .375 gm In Sodium Chloride 0.9% 100 ml @ 25 mls/hr IVPB Q8HR [facility] Rx# :[id number] Output: Urine 2150 750 0 Other: Voiding Method Bedside Commode Bedside Commode # Voids 1 1 - Labs CBC & Chem 7: 07/31/23 03:18 07/31/23 09:13 Labs: Abnormal Lab Results - Last 24 Hours (Table) 07/30/23 07/30/23 07/30/23 Range/Units 11:07 16:41 20:00 WBC (3.8-10.6) k/uL RBC (3.80-5.40) m/uL Hgb (11.4-16.0) gm/dL Hct (34.0-46.0) % MCHC (31.0-37.0) g/dL Neutrophils # (1.3-7.7) k/uL Potassium (3.5-5.1) mmol/L Chloride (98-107) mmol/L Carbon Dioxide (22-30) mmol/L Glucose (74-99) mg/dL POC Glucose (mg/dL) 145 H 376 H 150 H (70-110) mg/dL Calcium (8.4-10.2) mg/dL 07/31/23 07/31/23 07/31/23 Range/Units 03:18 03:18 06:34 WBC 13.4 H (3.8-10.6) k/uL RBC 3.02 L (3.80-5.40) m/uL Hgb 9.2 L (11.4-16.0) gm/dL Hct 30.1 L (34.0-46.0) % MCHC 30.6 L (31.0-37.0) g/dL Neutrophils # 10.3 H (1.3-7.7) k/uL Potassium 3.2 L (3.5-5.1) mmol/L Chloride 92 L (98-107) mmol/L Carbon Dioxide 40 H (22-30) mmol/L Glucose 128 H (74-99) mg/dL POC Glucose (mg/dL) 150 H (70-110) mg/dL Calcium 8.3 L (8.4-10.2) mg/dL Microbiology - Last 24 Hours (Table) 07/27/23 16:09 Blood Culture - Preliminary Blood
--- NOTE | 2023-07-31 11:37 | P.PN ---
Subjective Progress Note Date: 07/31/23 This is a pleasant 62 years old female with past medical history of multiple medical problems including COPD and chronic hypoxic respiratory failure on 5 L oxygen at home and she follows up with Dr. MACARIO for her COPD. Other medical problems including aortic stenosis status post TAVR, coronary artery disease s/p stent and depression and anxiety. Patient presents because of pain in her right shoulder radiating to her right arm and right chest for a few days since , 110/10 in severity, no histor y of trauma or fall. Pain described as nonspecific with no precipitating or relieving factors. She denies dyspnea she has dry cough. She is using 5 L of oxygen at home. No change in urine or bowel habits. No headache dizziness weakness or numbness. She denies current smoking alcohol or illicit drugs Patient is hemodynamically stable, afebrile She has unremarkable CBC, INR, BMP, liver enzymes, lipase Troponin is elevated 0.04 Chest x-ray is negative for acute process EKG showing atrial tachycardia with short AL interval but no significant ST-T changes. 07/25/2023 Patient is status post cardiac cath yesterday showing mid LAD stenosis 40-50% with patent RCA stent, also shows evidence of severe aortic stenosis, therefore cardiothoracic surgery team were consulted however patient is known not to follow-up on patient, as confirmed with the patient and daughter at bedside today who states that her mom usually go home call Dr. trejo isn't canceled her appointment and she does not follow up Further workup per cardiothoracic surgery team is requested here On admission yesterday she has limited air entry and she was placed on IV Solu- Medrol or acute COPD exacerbation, whiletoday air flow is much better although she has scattered wheezing and she still mildly tachypneic and therefore we consulted pulmonary service currently she is placed on prednisone 5 mg. she is to have mild to moderate right shoulder pain mostly related to her cardiac disease. Some elements of osteoarthritis. her heparin drip was stopped , 07/26/2023 Patient breathing is better, no chest pain today But she still complaining from more severe right shoulder pain. Patient has this pain improved with the steroids but when switched to oral prednisone 5 mg the pain increased today again. She has more rash in her medial arm and forearm and the arm. For short distance with maculopapular rash with possible some vesicles been forming with the pain and tenderness goes with the rash and around it, signs suspicious for shingles. Therefore we are going to start her on [place] for pain management and valacyclovir and asked ID team to reevaluate. Also will put on isolation till cleared. She is hemodynamically stable She is being evaluated by cardiothoracic surgery team as well. 07/27/2023 Patient is awake and alert she denies chest pain but she still complaining from right shoulder pain and neuropathic pain along her rash in the right armpit and the surrounding skin down to the left wrist along the medial side, rash is getting somewhat crusted partially. Breathing is stable However through the day her blood pressure became on the low side She is getting normal saline running at 90 mL/h Cardiology team and planning for balloon valvuloplasty for her severe aortic stenosis She is currently covered with valacyclovir, Lyrica, prednisone 5 mg Oral Lasix and Farxiga 07/27. Patient seen examined. States right shoulder pain has improved, lesions on the right arm has improved. 07/28. Patient seen and examined. s/p balloon aortic valvuloplasty with a 28mm Z Med balloon on 07/27. Currently on 15 L of oxygen. Critical care ordered 1 dose of 60 mg of Lasix IV 07/29. Patient seen and examined. Currently sitting up in the chair, states she feels better compared to yesterday. Currently on 15 L of oxygen. Critical care have ordered 60 mg of IV Lasix. 07/30. Patient seen and examined. Vital signs this morning temp temperature afebrile, heart rate 79, respirate 17, blood pressure 93/61, currently on [place] at 45 L of oxygen. Blood work done this morning showed WBC 13.4, hemoglobin 9.2, platelet count 254, sodium 137, potassium 3.2, BUN 17, creatinine 0.8. Potassium placement ordered. Cardiology following, recommended patient is not a candidate for surgical intervention and TAVR procedure is complicated by enlarged ascending aorta. REVIEW OF SYSTEMS: CONSTITUTIONAL: No fever, no malaise,. CARDIOVASCULAR: No chest pain, no palpitations, no syncope. PULMONARY: As mentioned above, GASTROINTESTINAL: No diarrhea, no nausea, no vomiting, no abdominal pain. NEUROLOGICAL: No headaches, no weakness, PHYSICAL EXAMINATION: GENERAL: The patient is alert and oriented x3, not in any acute distress. Well developed, well nourished. HEENT: Pupils are round and equally reacting to light. EOMI. No scleral icterus. No conjunctival pallor. Normocephalic, atraumatic. No pharyngeal erythema. No thyromegaly. CARDIOVASCULAR: S1 and S2 present. PULMONARY: Coarse breath sound bilaterally, no wheezing or crackles. ABDOMEN: Soft, nontender, nondistended, normoactive bowel sounds. No palpable organomegaly. MUSCULOSKELETAL: No joint swelling or deformity. EXTREMITIES: No cyanosis, clubbing, or pedal edema. NEUROLOGICAL: Gross neurological examination did not reveal any focal deficits. SKIN: Rash on right arm has improved Assessment and plan Right shoulder pain/chest pain with right upper extremity rash along the medial side, shingles Non-STEMI, status post cardiac catheterization with no progression of CAD Coronary artery disease with previous PCI, most recently March 2023 with PCI of the proximal RCA Ischemic cardiomyopathy, ejection fraction 45%, with improved EF now 60 to 65% Severe aortic stenosis Mild pulmonary hypertension Acute COPD exacerbation. Significantly improved acute on chronic hypoxic respiratory failure. Resolved Atrial tachycardia with short AL interval Coronary artery disease s/p stent History of arctic stenosis s/p TAVR Obesity with BMI of 36.6 History of depression and anxiety, no acute process. Hypertension Hyperlipidemia Plan: Monitor vital sign Monitor CBC Monitor CMP s/p balloon aortic valvuloplasty with a 28mm Z Med balloon on 07/27. Continue valacyclovir, Lyrica Continue with aspirin, Lipitor Continue IV Zosyn Continue Toprol 25 mg twice daily prednisone 5 mg daily Continue breathing treatment and bronchodilator Cardiology following,patient is not a candidate for surgical intervention and TAVR procedure is complicated by enlarged ascending aorta CT surgery following ID following Labs and medication were reviewed.. Continue same treatment. Continue with symptomatic treatment. Resume home medication. Monitor labs and vitals. DVT and GI prophylaxis. Further recommendations as per clinical course of the patient Dictation was produced using [employer] dictation software. please excuse any grammatical, word or spelling errors. Objective - Vital Signs Vital signs: Vital Signs Temp 97.7 F 07/31/23 04:00 Pulse 91 07/31/23 08:11 Resp 15 07/31/23 07:00 BP 92/60 07/31/23 07:00 Pulse Ox 96 07/31/23 08:15 FiO2 59 07/31/23 08:15 Intake & Output 07/30/23 07/31/23 07/31/23 18:59 06:59 18:59 Intake Total 200 100 Output Total 2150 750 0 Balance -1950 -650 0 Weight 91.1 kg Intake: IV 200 100 Piperacillin-Tazobactam 3 200 100 .375 gm In Sodium Chloride 0.9% 100 ml @ 25 mls/hr IVPB Q8HR [facility] Rx# :[id number] Output: Urine 2150 750 0 Other: Voiding Method Bedside Commode Bedside Commode # Voids 1 1 - Labs CBC & Chem 7: 07/31/23 03:18 07/31/23 09:13 Labs: Abnormal Lab Results - Last 24 Hours (Table) 07/30/23 07/30/23 07/30/23 Range/Units 11:07 16:41 20:00 WBC (3.8-10.6) k/uL RBC (3.80-5.40) m/uL Hgb (11.4-16.0) gm/dL Hct (34.0-46.0) % MCHC (31.0-37.0) g/dL Neutrophils # (1.3-7.7) k/uL Potassium (3.5-5.1) mmol/L Chloride (98-107) mmol/L Carbon Dioxide (22-30) mmol/L Glucose (74-99) mg/dL POC Glucose (mg/dL) 145 H 376 H 150 H (70-110) mg/dL Calcium (8.4-10.2) mg/dL 07/31/23 07/31/23 07/31/23 Range/Units 03:18 03:18 06:34 WBC 13.4 H (3.8-10.6) k/uL RBC 3.02 L (3.80-5.40) m/uL Hgb 9.2 L (11.4-16.0) gm/dL Hct 30.1 L (34.0-46.0) % MCHC 30.6 L (31.0-37.0) g/dL Neutrophils # 10.3 H (1.3-7.7) k/uL Potassium 3.2 L (3.5-5.1) mmol/L Chloride 92 L (98-107) mmol/L Carbon Dioxide 40 H (22-30) mmol/L Glucose 128 H (74-99) mg/dL POC Glucose (mg/dL) 150 H (70-110) mg/dL Calcium 8.3 L (8.4-10.2) mg/dL Microbiology - Last 24 Hours (Table) 07/27/23 16:09 Blood Culture - Preliminary Blood
[2023-07-31 11:41] LABS: Glucose,Whole Blood 170 mg/dL (70-110)
[2023-07-31 12:20] VITALS: BMI 36.7
[2023-07-31 16:54] LABS: Glucose,Whole Blood 233 mg/dL (70-110)
[2023-07-31 20:20] LABS: Glucose,Whole Blood 180 mg/dL (70-110)
--- NOTE | 2023-07-31 22:48 | P.PN ---
Subjective Progress Note Date: 07/31/23 Principal diagnosis: Reason for follow-up is right T10 dermatome shingles Patient is a 63-year-old female past medical history significant for COPD coronary artery disease [place] former smoker presenting to the hospital for evaluation of chest pain on the right side of her chest and is also complaining of pain to the right upper arm, patient did develop a rash prompting this consultation and has been diagnosed with shingles. On today's evaluation that is 07/31/2023, patient has been afebrile, patient is breathing comfortably however still requiring high flow nasal cannula oxygen patient denies having any significant cough no chest pain , patient denies nausea vomiting or diarrhea and no abdominal pain, pain to the right upper extremity rash. Decreased in intensity. White count is 13.4, creatinine 0.80 Objective - Vital Signs Vital signs: Vital Signs Temp 97.7 F 07/31/23 12:00 Pulse 93 07/31/23 12:00 Resp 14 07/31/23 12:00 BP 86/53 07/31/23 12:00 Pulse Ox 91 L 07/31/23 12:00 FiO2 60 07/31/23 12:00 Intake & Output 07/30/23 07/31/23 07/31/23 18:59 06:59 18:59 Intake Total 200 100 100 Output Total 2150 750 0 Balance -1950 -650 100 Weight 91.1 kg 91.1 kg Intake: IV 200 100 100 Piperacillin-Tazobactam 3 200 100 100 .375 gm In Sodium Chloride 0.9% 100 ml @ 25 mls/hr IVPB Q8HR [facility] Rx# :[id number] Output: Urine 2150 750 0 Other: Voiding Method Bedside Commode Bedside Commode Bedside Commode # Voids 1 1 - Exam GENERAL DESCRIPTION: Middle-aged female lying in bed in no distress RESPIRATORY SYSTEM: Unlabored breathing , decreased breath sounds at bases HEART: S1 S2 regular rate and rhythm , ABDOMEN: Soft , no tenderness EXTREMITIES: Right upper extremity did have vesicular rash no worsening or extension noticed - Labs CBC & Chem 7: 07/31/23 03:18 07/31/23 09:13 Labs: Abnormal Lab Results - Last 24 Hours (Table) 07/30/23 07/30/23 07/31/23 Range/Units 16:41 20:00 03:18 WBC 13.4 H (3.8-10.6) k/uL RBC 3.02 L (3.80-5.40) m/uL Hgb 9.2 L (11.4-16.0) gm/dL Hct 30.1 L (34.0-46.0) % MCHC 30.6 L (31.0-37.0) g/dL Neutrophils # 10.3 H (1.3-7.7) k/uL Potassium (3.5-5.1) mmol/L Chloride (98-107) mmol/L Carbon Dioxide (22-30) mmol/L Glucose (74-99) mg/dL POC Glucose (mg/dL) 376 H 150 H (70-110) mg/dL Calcium (8.4-10.2) mg/dL 07/31/23 07/31/23 07/31/23 Range/Units 03:18 06:34 11:40 WBC (3.8-10.6) k/uL RBC (3.80-5.40) m/uL Hgb (11.4-16.0) gm/dL Hct (34.0-46.0) % MCHC (31.0-37.0) g/dL Neutrophils # (1.3-7.7) k/uL Potassium 3.2 L (3.5-5.1) mmol/L Chloride 92 L (98-107) mmol/L Carbon Dioxide 40 H (22-30) mmol/L Glucose 128 H (74-99) mg/dL POC Glucose (mg/dL) 150 H 170 H (70-110) mg/dL Calcium 8.3 L (8.4-10.2) mg/dL Microbiology - Last 24 Hours (Table) 07/27/23 16:09 Blood Culture - Preliminary Blood Assessment and Plan (1) Zoster Current Visit: Yes Status: Acute Code(s): B02.9 - ZOSTER WITHOUT COMPLICATIONS SNOMED Code(s): 7005018 (2) Leukocytosis Current Visit: Yes Status: Acute Code(s): D72.829 - ELEVATED WHITE BLOOD CELL COUNT, UNSPECIFIED SNOMED Code(s): 175235153 Plan: 1patient presented to hospital with pain to the right side of the chest and right upper extremity not developing a rash which is a following T1 dermatome likely herpes zoster with no evidence of any secondary cellulitis 2-patient rash to the right upper arm decreased in intensity no evidence of cellulitis, patient to continue with Valtrex 1 g every 8 hours along with Lyrica for postherpetic neuralgia, 3-leukocytosis with a right perihilar infiltrate seem to have slightly progressed try to obtain a sputum continue with the Zosyn Dictation was produced using [employer] dictation software. please excuse any grammatical, word or spelling errors. Time with Patient: Less than 30
[2023-08-01 04:56] LABS: Basophils % (A) 0 %; Eosinophils # (A) 0.4 k/uL (0-0.7); Eosinophils % (A) 3 %; HCT 28.1 % (34.0-46.0); HGB 8.7 gm/dL (11.4-16.0); Hypochromasia Moderate; Lymphocytes # (A) 1.2 k/uL (1.0-4.8); Lymphocytes % (A) 9 %; MCH 30.8 pg (25.0-35.0); MCHC 31.1 g/dL (31.0-37.0); Mean Platelet Volume 7.8; Monocytes % (A) 8 %; Neutrophils % (A) 77 %; Platelet Count 272 k/uL (150-450); RBC 2.84 m/uL (3.80-5.40); RDW 14.6 % (11.5-15.5)
[2023-08-01 05:10] LABS: African American GFR (CKD) >90 (>60 ml/min/1.73 sqM); Anion Gap 4 mmol/L; Blood Urea Nitrogen 15 mg/dL (7-17); Calcium 8.3 mg/dL (8.4-10.2); Carbon Dioxide 39 mmol/L (22-30); Chloride 94 mmol/L (98-107); Glucose 100 mg/dL (74-99); Non-African American GFR(CKD) >90 (>60 ml/min/1.73 sqM); Potassium 3.2 mmol/L (3.5-5.1); Sodium 137 mmol/L (137-145)
[2023-08-01] MEDS ORDERED: Potassium Replacement Protocol 1 EACH MISC MISCELLANE PRN (05:11)
[2023-08-01] MEDS: POTASSIUM BICARBONATE/CIT AC 20 MEQ TABLET.EFF NG-TUBE SCH (05:28)
[2023-08-01 06:53] LABS: Glucose,Whole Blood 119 mg/dL (70-110)
--- NOTE | 2023-08-01 07:46 | XR ---
EXAMINATION TYPE: XR chest 1V portable DATE OF EXAM: 08/01/2023 HISTORY: acute hypoxemic respiratory failure COMPARISON: 07/31/2023 TECHNIQUE: Single view of the chest is submitted. FINDINGS: Demonstrated are scattered senescent parenchymal change. Coarse infiltrate right mid and right lower lung zone persists with the more consolidative process ri ght lower lobe improving. Left lung is clear at this time. The heart is stable. Hilar and mediastinal structures are within normal limits. Degenerative changes are seen of the dorsal spine. IMPRESSION: 1. Overall improvement with residual coarse infiltrate seen right mid and right lower lung zones.
[2023-08-01] MEDS: methylPREDNISolone SOD SUCCI 40 MG/ML 1 ML VIAL IV SCH (09:22)
--- NOTE | 2023-08-01 09:39 | P.PN ---
Subjective Progress Note Date: 08/01/23 the patient is a 63-year-old female who presents to the hospital with increased shortness of breath. She has a history of severe aortic stenosis and was initially being followed by our TAVR clinic. Patient has been admitted with COPD and heart failure exacerbation. She underwent aortic balloon valvuloplasty on 07/28/[address] Hinkle. She tolerated the procedure well, but remains on high flow nasal cannula. Echo shows aortic gradient improved to 38 mmHg. the patient was interviewed and examined resting comfortably in bed. The patient states she does have shortness of breath with minimal exertion. No chest pain or chest pressure. GENERAL: Well-appearing, well-nourished and in no acute distress. NECK: Supple without JVD or thyromegaly. LUNGS: Breath sounds clear to auscultation bilaterally. Respiration equal and unlabored. No wheezes, rales or rhonchi. HEART: Regular rate and rhythm. Systolic ejection murmur. S1 and S2 heard. EXTREMITIES: Normal range of motion, no edema. No clubbing or cyanosis. Peripheral pulses intact and strong. TELEMETRY: Sinus mechanism overnight IMPRESSION: severe aortic stenosis Status post aortic balloon valvuloplasty Congestive heart failure. History of COPD on home oxygen PLAN: Increase beta-usman Continue to wean from high flow oxygen as tolerated Patient will follow-up with Dr. Hinkle once discharged Further recommendations to be based upon clinical course I am dictating on behalf of Dr Kendrick Olson's history/physical and assessment/p cece. Objective - Vital Signs Vital signs: Vital Signs Temp 97.9 F 08/01/23 04:00 Pulse 106 H 08/01/23 08:36 Resp 9 L 08/01/23 07:00 BP 102/63 08/01/23 07:00 Pulse Ox 93 L 08/01/23 07:00 FiO2 50 08/01/23 07:39 Intake & Output 07/31/23 08/01/23 08/01/23 18:59 06:59 18:59 Intake Total 200 Output Total 1600 1150 Balance -1400 -1150 Weight 91.1 kg 91 kg Intake: IV 200 Piperacillin-Tazobactam 3 200 .375 gm In Sodium Chloride 0.9% 100 ml @ 25 mls/hr IVPB Q8HR [facility] Rx# :[id number] Output: Urine 1600 1150 Other: Voiding Method Bedside Commode Bedside Commode # Voids 1 0 0 # Bowel Movements 1 - Labs CBC & Chem 7: 08/01/23 03:47 08/01/23 03:47 Labs: Abnormal Lab Results - Last 24 Hours (Table) 07/31/23 07/31/23 07/31/23 Range/Units 11:40 16:53 20:19 WBC (3.8-10.6) k/uL RBC (3.80-5.40) m/uL Hgb (11.4-16.0) gm/dL Hct (34.0-46.0) % Neutrophils # (1.3-7.7) k/uL Potassium (3.5-5.1) mmol/L Chloride (98-107) mmol/L Carbon Dioxide (22-30) mmol/L Glucose (74-99) mg/dL POC Glucose (mg/dL) 170 H 233 H 180 H (70-110) mg/dL Calcium (8.4-10.2) mg/dL 08/01/23 08/01/23 08/01/23 Range/Units 03:47 03:47 06:51 WBC 13.0 H (3.8-10.6) k/uL RBC 2.84 L (3.80-5.40) m/uL Hgb 8.7 L (11.4-16.0) gm/dL Hct 28.1 L (34.0-46.0) % Neutrophils # 10.0 H (1.3-7.7) k/uL Potassium 3.2 L (3.5-5.1) mmol/L Chloride 94 L (98-107) mmol/L Carbon Dioxide 39 H (22-30) mmol/L Glucose 100 H (74-99) mg/dL POC Glucose (mg/dL) 119 H (70-110) mg/dL Calcium 8.3 L (8.4-10.2) mg/dL
[2023-08-01] MEDS: FUROSEMIDE 10 MG/ML 4 ML VIAL IV SCH (10:39)
[2023-08-01 11:58] LABS: Glucose,Whole Blood 182 mg/dL (70-110)
--- NOTE | 2023-08-01 12:22 | P.PN ---
Subjective Progress Note Date: 08/01/23 63-year-old female well-known to our service. The patient has a history of chronic hypoxemic respiratory failure secondary to COPD, and is chronically oxygen dependent. The patient presented to the emergency room, on July 23, complaining of chest pain. The pain apparently was on the right side of her chest, and radiated into her right arm. The pain started on the prior . The patient does have a history of coronary disease, and has had stents placed in the last year. In addition, she admits to chronic shortness of breath, secondary to her severe COPD. The patient did go to the catheterization laboratory on July 23, and was found to have a 40 to 50% stenosis, in the mid LAD, with a patent proximal RCA stent. In addition, on echocardiogram, the patient was found to have severe aortic stenosis, with a valve surface area of 1.6 cm, and a gradient across the aortic valve, of 100 mmHg. The patient underwent a valvuloplasty by cardiology. On today's evaluation of 07/31/2023, the patient is being seen for a follow-up. The patient is calm and comfortable. She is still having oxygen saturations on high flow oxygen and the patient will be placed on Airvo to maintain an oxygen saturation above 90%. The patient has advanced COPD and the patient is typically on oxygen at 5 L at baseline. The patient is also developed a right lower lobe consolidation consistent with pneumonia and the patient remains on IV Zosyn. Earlier, the patient was not nonabrasive fullface mask and the patient will be switched to Airvo. IV fluids are currently at KVO. The procalcitonin level is at 0.14. Hemodynamically stable and the patient is on no pressors. White cell count at 13.4 with a hemoglobin 9.2 and a platelet count of 254. BUN is at 17 with a creatinine of 0.8 and a sodium levels at 137. Potassium level is at 3.8. The patient is receiving Lasix 40 mg p.o. daily. The patient is on prednisone 5 mg p.o. daily. The patient also has developed shingles in the right upper extremity and the patient is currently on Valtrex. Remains on DuoNeb updrafts. Remains on a combination of Perforomist and Pulmicort updrafts twice a day. As mentioned, chest x-ray showing a right lower lobe consolidation. On today's evaluation of 08/01/2023, the patient is essentially the same as yester day. No significant changes in terms of her oxygenation. The patient remains on Airvo 40 L with FiO2 of 50%. No fever. No chills. Using incentive spirometer. No chest pain. No signs of any CO2 narcosis or altered mentation. Blood work from today shows a WBC count of 13 with a hemoglobin 8.7 and a platelet count of 272. Sodium is at 137 with a potassium level of 3.2, bicarb is at 39 with a BUN of 15 and a creatinine of 0.7. Fluid balance over the past 24 hours is -2.6 L and the patient is headed towards another 2.5 L negative in terms of her fluid balance over the next 24 hours. The patient remains on bronchodilators. The patient remains on IV Solu-Medrol 40 mg every 6 hours. The patient remains on IV Zosyn. The patient remains on Lasix 40 mg IV every 8 hours. A repeat chest x-ray was also done today and the findings are essentially showing background COPD with some improvement in the residual coarse infiltration in the right mid and right lower lobe area. Objective - Vital Signs Vital signs: Vital Signs Temp 98.4 F 08/01/23 08:00 Pulse 93 08/01/23 11:24 Resp 21 08/01/23 10:00 BP 104/63 08/01/23 10:00 Pulse Ox 92 L 08/01/23 10:00 FiO2 50 08/01/23 11:02 Intake & Output 07/31/23 08/01/23 08/01/23 18:59 06:59 18:59 Intake Total 200 100 Output Total 1600 1150 Balance -1400 -1150 100 Weight 91.1 kg 91 kg Intake: IV 200 100 Piperacillin-Tazobactam 3 200 100 .375 gm In Sodium Chloride 0.9% 100 ml @ 25 mls/hr IVPB Q8HR [facility] Rx# :[id number] Output: Urine 1600 1150 Other: Voiding Method Bedside Commode Bedside Commode Bedside Commode # Voids 1 0 0 # Bowel Movements 1 - Exam No acute distress, oriented 3. The patient is currently on Airvo and the patient will be taken off to 100% on the breather facemask. She has obvious cushingoid features and she is morbidly obese with a BMI of 36.7. HEENT examination is grossly unremarkable. Mucous membranes are moist. No oral lesions. Neck supple. Full range of motion. No adenopathy thyromegaly or neck vein distention. Cardiovascular examination reveals regular rhythm rate. S1-S2 normal. No S3 or S4. Harsh systolic ejection murmur over the left apex and left lateral sternal border. Heart sounds are distant. Lungs reveal diminished bilateral breath sounds. Scattered rhonchi and wheezes are noted. No crackles. Breath sounds equal bilaterally Abdominal exam revealed normal bowel sounds. The abdomen was soft, non-tender, and without masses, organomegaly, or appreciable enlargement of the abdominal aorta. Extremities are intact. No cyanosis clubbing or edema. Skin is without rash or lesion. Shingles with right lesions in the right upper extremity. No open vesicles at this point in time. Neurologically, the patient is awake and alert and the patient does not have any focal neurological deficit. Cranial nerves are essentially intact. - Labs CBC & Chem 7: 08/01/23 03:47 08/01/23 08:32 Labs: Abnormal Lab Results - Last 24 Hours (Table) 07/31/23 07/31/23 08/01/23 Range/Units 16:53 20:19 03:47 WBC 13.0 H (3.8-10.6) k/uL RBC 2.84 L (3.80-5.40) m/uL Hgb 8.7 L (11.4-16.0) gm/dL Hct 28.1 L (34.0-46.0) % Neutrophils # 10.0 H (1.3-7.7) k/uL Potassium (3.5-5.1) mmol/L Chloride (98-107) mmol/L Carbon Dioxide (22-30) mmol/L Glucose (74-99) mg/dL POC Glucose (mg/dL) 233 H 180 H (70-110) mg/dL Calcium (8.4-10.2) mg/dL 08/01/23 08/01/23 08/01/23 Range/Units 03:47 06:51 11:57 WBC (3.8-10.6) k/uL RBC (3.80-5.40) m/uL Hgb (11.4-16.0) gm/dL Hct (34.0-46.0) % Neutrophils # (1.3-7.7) k/uL Potassium 3.2 L (3.5-5.1) mmol/L Chloride 94 L (98-107) mmol/L Carbon Dioxide 39 H (22-30) mmol/L Glucose 100 H (74-99) mg/dL POC Glucose (mg/dL) 119 H 182 H (70-110) mg/dL Calcium 8.3 L (8.4-10.2) mg/dL Assessment and Plan Plan: Acute on chronic hypoxic respiratory failure. Typically the patient is on 5 L of oxygen by nasal cannula. Currently she is 100% on her breather facemask. The patient has developed a right lower lobe consolidation consistent with pneumonia and the patient is currently on IV Zosyn. The patient is currently on Airvo 40 L with an FiO2 of 50%. Chest x-ray showing improving right lower lobe consolidation. Nevertheless, no major improvement in oxygenation and the patient remains on Airvo. The patient is also responding to diuretics. Coronary artery disease, involving the LAD, with 40 to 50% stenosis, and a patent proximal RCA stent. Severe aortic stenosis with a valve surface area of 0.6 cm, S/P BVP, July 28, 2023, postop day # 4 Right lower lobe consolidation/pneumonia, consider hospital-acquired pneumonia versus aspiration., Improved on today's chest x-ray and the patient remains on IV Zosyn. chronic hypoxemic and hypercapnic respiratory failure, secondary to COPD. Shingles involving the right upper extremity currently on Valtrex History of hyperlipidemia. History of hypertension. History of chronic low back pain. Obesity. Aortic valve stenosis. History of tracheobronchitis. Prior history of heavy tobacco use. Plan: Transition this patient to Airvo and titrate oxygen flow and saturation to maintain a saturation above 90%, currently on 40 L with FiO2 of 50% Continue bronchodilators with DuoNeb updrafts Continue on Perforomist and Pulmicort nebulized treatments twice a day IV Solu-Medrol 40 mg every 6 hours IV Zosyn Continue IV Lasix 40 mg every 8 hours No need for pressors at this point in time Continue Valtrex for shingles of the right upper extremity Keep the patient on KVO IV fluids Incentive spirometer Increase mobility Daily chest x-rays Monitor the fluid balance and the patient is headed towards a negative fluid balance over the next 24 hours Will continue to follow Condition remains critical and this evaluation was done more than 30 minutes. Time with Patient: Greater than 30
--- NOTE | 2023-08-01 14:12 | P.PN ---
Subjective Progress Note Date: 08/01/23 Principal diagnosis: Reason for follow-up is right T10 dermatome shingles Patient is a 63-year-old female past medical history significant for COPD coronary artery disease [place] former smoker presenting to the hospital for evaluation of chest pain on the right side of her chest and is also complaining of pain to the right upper arm, patient did develop a rash prompting this consultation and has been diagnosed with shingles. On today's evaluation that is 08/01/2023,the patient denies any fever or any chills, patient is breathing comfortably however still requiring high flow nasal cannula oxygen with an FiO2 of 40% the patient denies chest pain shortness of breath and denies any worsening cough or sputum production, patient denies abdominal pain, no nausea vomiting or diarrhea. Pain to the right arm rash area decreased in intensity. Patient white count is 13,000, creatinine 0.70 blood culture has been negative Objective - Vital Signs Vital signs: Vital Signs Temp 98.4 F 08/01/23 08:00 Pulse 96 08/01/23 14:00 Resp 23 08/01/23 14:00 BP 114/72 08/01/23 14:00 Pulse Ox 94 L 08/01/23 14:00 FiO2 50 08/01/23 11:02 Intake & Output 07/31/23 08/01/23 08/01/23 18:59 06:59 18:59 Intake Total 200 100 Output Total 1600 1150 Balance -1400 -1150 100 Weight 91.1 kg 91 kg Intake: IV 200 100 Piperacillin-Tazobactam 3 200 100 .375 gm In Sodium Chloride 0.9% 100 ml @ 25 mls/hr IVPB Q8HR [facility] Rx# :[id number] Output: Urine 1600 1150 Other: Voiding Method Bedside Commode Bedside Commode Bedside Commode # Voids 1 0 150 # Bowel Movements 1 1 - Exam GENERAL DESCRIPTION: Middle-aged female lying in bed in no distress RESPIRATORY SYSTEM: Unlabored breathing , decreased breath sounds at bases HEART: S1 S2 regular rate and rhythm , ABDOMEN: Soft , no tenderness EXTREMITIES: Right upper extremity did have vesicular rash no worsening or extension noticed - Labs CBC & Chem 7: 08/01/23 03:47 08/01/23 08:32 Labs: Abnormal Lab Results - Last 24 Hours (Table) 07/31/23 07/31/23 08/01/23 Range/Units 16:53 20:19 03:47 WBC 13.0 H (3.8-10.6) k/uL RBC 2.84 L (3.80-5.40) m/uL Hgb 8.7 L (11.4-16.0) gm/dL Hct 28.1 L (34.0-46.0) % Neutrophils # 10.0 H (1.3-7.7) k/uL Potassium (3.5-5.1) mmol/L Chloride (98-107) mmol/L Carbon Dioxide (22-30) mmol/L Glucose (74-99) mg/dL POC Glucose (mg/dL) 233 H 180 H (70-110) mg/dL Calcium (8.4-10.2) mg/dL 08/01/23 08/01/23 08/01/23 Range/Units 03:47 06:51 11:57 WBC (3.8-10.6) k/uL RBC (3.80-5.40) m/uL Hgb (11.4-16.0) gm/dL Hct (34.0-46.0) % Neutrophils # (1.3-7.7) k/uL Potassium 3.2 L (3.5-5.1) mmol/L Chloride 94 L (98-107) mmol/L Carbon Dioxide 39 H (22-30) mmol/L Glucose 100 H (74-99) mg/dL POC Glucose (mg/dL) 119 H 182 H (70-110) mg/dL Calcium 8.3 L (8.4-10.2) mg/dL Assessment and Plan (1) Zoster Current Visit: Yes Status: Acute Code(s): B02.9 - ZOSTER WITHOUT COMPLICATIONS SNOMED Code(s): 6402792 (2) Leukocytosis Current Visit: Yes Status: Acute Code(s): D72.829 - ELEVATED WHITE BLOOD CELL COUNT, UNSPECIFIED SNOMED Code(s): 126816166 Plan: 1patient presented to hospital with pain to the right side of the chest and right upper extremity not developing a rash which is a following T1 dermatome likely herpes zoster with no evidence of any secondary cellulitis 2-patient rash to the right upper arm decreased in intensity no evidence of cellulitis, patient to continue with Valtrex 1 g every 8 hours to finish 7-day course of therapy along with Lyrica for postherpetic neuralgia, 3-leukocytosis with a right perihilar infiltrate concerning for possible nosocomial pneumonia patient is covered with Zosyn try to obtain a sputum Dictation was produced using [employer] software. please excuse any grammatical, word or spelling errors. Time with Patient: Less than 30
[2023-08-01] MEDS: METOPROLOL SUCCINATE (ER) 25 MG TAB.ER.24H PO SCH (16:23)
[2023-08-01] MEDS: guaiFENesin-DM 100-10MG/5ML 10 ML CUP PO PRN (17:38)
[2023-08-01 17:39] LABS: Glucose,Whole Blood 255 mg/dL (70-110)
[2023-08-01 19:55] LABS: Glucose,Whole Blood 235 mg/dL (70-110)
--- NOTE | 2023-08-01 20:45 | P.PN ---
Subjective This is a pleasant 62 years old female with past medical history of multiple medical problems including COPD and chronic hypoxic respiratory failure on 5 L oxygen at home and she follows up with Dr. MACARIO for her COPD. Other medical problems including aortic stenosis status post TAVR, coronary artery disease s/p stent and depression and anxiety. Patient presents because of pain in her right shoulder radiating to her right arm and right chest for a few days since , 110/10 in severity, no history of trauma or fall. Pain described as nonspecific with no precipitating or relieving factors. She denies dyspnea she has dry cough. She is using 5 L of oxygen at home. No change in urine or bowel habits. No headache dizziness weakness or numbness. She denies current smoking alcohol or illicit drugs Patient is hemodynamically stable, afebrile She has unremarkable CBC, INR, BMP, liver enzymes, lipase Troponin is elevated 0.04 Chest x-ray is negative for acute process EKG showing atrial tachycardia with short MO interval but no significant ST-T changes. 07/25/2023 Patient is status post cardiac cath yesterday showing mid LAD stenosis 40-50% with patent RCA stent, also shows evidence of severe aortic stenosis, therefore cardiothoracic surgery team were consulted however patient is known not to follow-up on patient, as confirmed with the patient and daughter at bedside today who states that her mom usually go home call Dr. trejo isn't canceled her appointment and she does not follow up Further workup per cardiothoracic surgery team is requested here On admission yesterday she has limited air entry and she was placed on IV Solu- Medrol or acute COPD exacerbation, whiletoday air flow is much better although she has scattered wheezing and she still mildly tachypneic and therefore we consulted pulmonary service currently she is placed on prednisone 5 mg. she is to have mild to moderate right shoulder pain mostly related to her cardiac disease. Some elements of osteoarthritis. her heparin drip was stopped , 07/26/2023 Patient breathing is better, no chest pain today But she still complaining from more severe right shoulder pain. Patient has this pain improved with the steroids but when switched to oral prednisone 5 mg the pain increased today again. She has more rash in her medial arm and forearm and the arm. For short distance with maculopapular rash with possible some vesicles been forming with the pain and tenderness goes with the rash and around it, signs suspicious for shingles. Therefore we are going to start her on [place] for pain management and valacyclovir and asked ID team to reevaluate. Also will put on isolation till cleared. She is hemodynamically stable She is being evaluated by cardiothoracic surgery team as well. 07/27/2023 Patient is awake and alert she denies chest pain but she still complaining from right shoulder pain and neuropathic pain along her rash in the right armpit and the surrounding skin down to the left wrist along the medial side, rash is getting somewhat crusted partially. Breathing is stable However through the day her blood pressure became on the low side She is getting normal saline running at 90 mL/h Cardiology team and planning for balloon valvuloplasty for her severe aortic stenosis She is currently covered with valacyclovir, Lyrica, prednisone 5 mg Oral Lasix and Farxiga 08/01/2023 Patient looks comfortable somewhat but mildly tachypneic, she had aortic valve procedure valvoplasty for her severe aortic stenosis and that improved her blood pressure but patient had decompensated pulmonary function and developed acute COPD exacerbation and fluid overload and currently she is on IV Solu-Medrol 60 mg and IV Lasix 40 mg Also patient placed on broad-spectrum antibiotic with Zosyn besides her Valtrex and Lyrica for her herpes rash of the right upper extremity which is currently improved significantly. Patient still complaining from pain but improved from last week Also patient on Farxiga and metoprolol Other vitals look stable, she is mildly tachycardic but afebrile. WBC is 13 and hemoglobin stable at 8.7. Chest x-ray showing bilateral infiltrate Review of systems CONSTITUTIONAL: No fever, no malaise, no fatigue. HEENT: No recent visual problems or hearing problems. Denied any sore HEMATOLOGICAL: Denies any bleeding or petechiae. GENITOURINARY: Denies any burning micturition, frequency, or urgency. MUSCULOSKELETAL/RHEUMATOLOGICAL: Denies any joint pain, swelling, or any muscle pain. ENDOCRINE: Denies any polyuria or polydipsia. Active Medications Generic Name Dose Route Start Last Admin Trade Name Freq PRN Reason Stop Dose Admin Acetaminophen 650 mg 07/24/23 07:35 07/27/23 23:10 Acetaminophen Tab 325 Mg Tab PO 650 mg Q4HR PRN Administration Fever and/or Mild Pain Hydrocodone Bitart/Acetaminophen 1 each 07/26/23 09:02 08/01/23 13:59 Hydrocodone/Apap 5-325mg 1 Each Tab PO 1 each Q6HR PRN Administration Moderate Pain (Scale 4 to 6) Albuterol/Ipratropium 3 ml 07/30/23 12:00 08/01/23 20:05 Ipratropium-Albuterol 3 Ml Neb INHALATION 3 ml RT-QID [facility]EL Administration Albuterol/Ipratropium 3 ml 07/30/23 08:49 Ipratropium-Albuterol 3 Ml Neb INHALATION RT-Q2H PRN Shortness Of Breath Or Wheezing Alprazolam 0.25 mg 07/27/23 07:42 Alprazolam 0.25 Mg Tab PO Q6HR PRN Mild Anxiety Alprazolam 0.5 mg 07/27/23 07:42 Alprazolam 0.5 Mg Tab PO Q6HR PRN Moderate Anxiety Aspirin 81 mg 07/25/23 09:00 08/01/23 08:44 Aspirin 81 Mg PO 81 mg DAILY CHANTEL Administration Atorvastatin Calcium 40 mg 07/24/23 21:00 07/31/23 21:02 Atorvastatin 40 Mg Tab PO 40 mg HS CHANTEL Administration Budesonide 1 mg 07/30/23 20:00 08/01/23 20:05 Budesonide 1 Mg/2 Ml Nebu INHALATION 1 mg RT-BID CHANTEL Administration Dapagliflozin 5 mg 07/24/23 09:00 08/01/23 08:44 Dapagliflozin Propanediol 5 Mg Tablet PO 5 mg DAILY CHANTEL Administration Dextrose/Water 25 ml 07/24/23 07:34 Dextrose 50% Syringe 50 Ml IVP PER PROTOCOL PRN Hypoglycemia Protocol Dextrose/Water 50 ml 07/24/23 07:34 Dextrose 50% Syringe 50 Ml IVP PER PROTOCOL PRN Hypoglycemia Protocol Famotidine 20 mg 07/28/23 21:00 08/01/23 08:44 Famotidine 20 Mg/2 Ml Vial IV 20 mg Q12HR [facility]EL Administration Formoterol Fumarate 20 mcg 07/30/23 20:00 08/01/23 20:05 Formoterol Fumarate 20 Mcg/2 Ml Nebu INHALATION 20 mcg RT-BID CH[facility]EL Administration Furosemide 40 mg 08/01/23 09:00 08/01/23 16:21 Furosemide 10 Mg/Ml 4 Ml Vial IV 40 mg Q8HR [facility] Administration Guaifenesin/Dextromethorphan 10 ml 08/01/23 08:52 08/01/23 17:38 Guaifenesin-Dm 100-10mg/5ml 10 Ml Cup PO 10 ml Q6HR PRN Administration Cough Heparin Sodium (Porcine) 5,000 unit 07/25/23 21:00 08/01/23 08:44 Heparin Sodium,Porcine 5,000 Unit/Ml 1 Ml Vial SQ 5,000 unit Q12HR [facility] Administration Hydroxyzine HCl 25 mg 07/24/23 09:00 08/01/23 08:43 Hydroxyzine Hcl 25 Mg Tab PO 25 mg BID CH[facility]EL Administration Norepinephrine Bitartrate 4 mg 254 mls @ 10.369 mls/hr 07/27/23 13:00 07/31/23 13:50 / Sodium Chloride IV Not Given .Q24H [facility] Protocol 0.03 MCG/KG/MIN Piperacillin Sod/Tazobactam 100 mls @ 25 mls/hr 07/29/23 16:00 08/01/23 16:21 Sod 3.375 gm/ Sodium Chloride IVPB 25 mls/hr Q8HR [facility] Administration Protocol Insulin Aspart 0 unit 07/24/23 12:30 08/01/23 17:38 Insulin Aspart (Novolog) 100 Unit/Ml Vial SQ 3 unit ACHS [facility] Administration Protocol Methylprednisolone Sodium Succinate 40 mg 08/01/23 09:00 08/01/23 17:38 Methylprednisolone Sod Succi 40 Mg/Ml 1 Ml Vial IV 40 mg Q6HR [facility] Administration Metoprolol Succinate 25 mg 08/01/23 16:00 08/01/23 16:23 Metoprolol Succinate (Er) 25 Mg Tab.Er.24h PO Not Given TID [facility] Miscellaneous Information 1 each 08/01/23 05:11 Potassium Replacement Protocol 1 Each Misc MISCELLANE DAILY PRN Per Protocol Protocol Morphine Sulfate 4 mg 07/24/23 06:43 07/31/23 04:30 Morphine Sulfate 4 Mg/Ml Syringe IV 4 mg Q4HR PRN Administration Severe Pain (Scale 7 to 10) Naloxone HCl 0.2 mg 07/24/23 06:43 Naloxone 0.4 Mg/Ml 1 Ml Vial IV Q2M PRN Opioid Reversal Nitroglycerin 0.4 mg 07/27/23 07:42 Nitroglycerin Sl Tabs 0.4 Mg Tab SUBLINGUAL Q5M PRN Chest Pain Pregabalin 75 mg 07/26/23 21:00 08/01/23 08:44 Pregabalin 75 Mg Cap PO 75 mg BID CH[facility]EL Administration Sertraline HCl 100 mg 07/24/23 09:00 08/01/23 08:44 Sertraline 100 Mg Tab PO 100 mg DAILY [facility] Administration Valacyclovir HCl 1,000 mg 07/27/23 21:00 08/01/23 08:43 Valacyclovir Hcl 1,000 Mg Tablet PO 1,000 mg Q12HR [facility] Administration Protocol Objective - Vital Signs Vital signs: Vital Signs Temp 98.4 F 08/01/23 08:00 Pulse 90 08/01/23 09:12 Resp 21 08/01/23 09:12 BP 104/63 08/01/23 09:12 Pulse Ox 91 L 08/01/23 09:12 FiO2 50 08/01/23 07:39 Intake & Output 07/31/23 08/01/23 08/01/23 18:59 06:59 18:59 Intake Total 200 100 Output Total 1600 1150 Balance -1400 -1150 100 Weight 91.1 kg 91 kg Intake: IV 200 100 Piperacillin-Tazobactam 3 200 100 .375 gm In Sodium Chloride 0.9% 100 ml @ 25 mls/hr IVPB Q8HR [facility] Rx# :[id number] Output: Urine 1600 1150 Other: Voiding Method Bedside Commode Bedside Commode # Voids 1 0 0 # Bowel Movements 1 - Exam GENERAL: The patient is alert and oriented x3, not in any acute distress. Well developed, well nourished. HEENT: Pupils are round and equally reacting to light. EOMI. No scleral icterus. No conjunctival pallor. Normocephalic, atraumatic. No pharyngeal erythema. No thyromegaly. CARDIOVASCULAR: S1 and S2 present. No murmurs, rubs, or gallops. -PULMONARY: Chest is clear to auscultation, scattered wheezing , no crackles. ABDOMEN: Soft, nontender, nondistended, normoactive bowel sounds. No palpable organomegaly. MUSCULOSKELETAL: No joint swelling or deformity. EXTREMITIES: No cyanosis, clubbing, or pedal edema. NEUROLOGICAL: Gross neurological examination did not reveal any focal deficits. SKIN: No rashes. no petechiae. - Labs CBC & Chem 7: 08/01/23 03:47 08/01/23 08:32 Labs: Abnormal Lab Results - Last 24 Hours (Table) 07/31/23 07/31/23 07/31/23 Range/Units 11:40 16:53 20:19 WBC (3.8-10.6) k/uL RBC (3.80-5.40) m/uL Hgb (11.4-16.0) gm/dL Hct (34.0-46.0) % Neutrophils # (1.3-7.7) k/uL Potassium (3.5-5.1) mmol/L Chloride (98-107) mmol/L Carbon Dioxide (22-30) mmol/L Glucose (74-99) mg/dL POC Glucose (mg/dL) 170 H 233 H 180 H (70-110) mg/dL Calcium (8.4-10.2) mg/dL 08/01/23 08/01/23 08/01/23 Range/Units 03:47 03:47 06:51 WBC 13.0 H (3.8-10.6) k/uL RBC 2.84 L (3.80-5.40) m/uL Hgb 8.7 L (11.4-16.0) gm/dL Hct 28.1 L (34.0-46.0) % Neutrophils # 10.0 H (1.3-7.7) k/uL Potassium 3.2 L (3.5-5.1) mmol/L Chloride 94 L (98-107) mmol/L Carbon Dioxide 39 H (22-30) mmol/L Glucose 100 H (74-99) mg/dL POC Glucose (mg/dL) 119 H (70-110) mg/dL Calcium 8.3 L (8.4-10.2) mg/dL Assessment and Plan Assessment: Right shoulder pain/chest pain with right upper extremity rash along the medial side, shingles severe aortic stenosis, status post aortic valvuloplasty Acute CHF exacerbation. Cannot rule out pneumonia Acute COPD exacerbation. Mildly acute on chronic hypoxic respiratory failure. Resolved Atrial tachycardia with short MO interval Coronary artery disease s/p stent History of arctic stenosis s/p TAVR Obesity with BMI of 36.6 History of depression and anxiety, no acute process. Plan: Start valacyclovir, Lyrica, And ID consult Continue with Zosyn Continue with IV Lasix Continue with IV Solu-Medrol Continue with aspirin Cardiology consult, with plan for possible balloon valvuloplasty cardiothoracic consult patient and olga at bed side were counseled about the importance of follow- up with appointment prednisone 5 mg daily Continue breathing treatment and bronchodilator Labs and medication were reviewed.. Continue same treatment. Continue with symptomatic treatment. Resume home medication. Monitor labs and vitals. DVT and GI prophylaxis. Further recommendations as per clinical course of the patient DVT prophylaxis: Subcutaneous heparin GI Prophylaxis: Pepcid Prognosis is guarded
[2023-08-02 06:16] LABS: Glucose,Whole Blood 206 mg/dL (70-110)
[2023-08-02 06:23] LABS: Basophils % (A) 0 %; Eosinophils % (A) 0 %; HGB 9.2 gm/dL (11.4-16.0); Hypochromasia Slight; Lymphocytes # (A) 0.9 k/uL (1.0-4.8); Lymphocytes % (A) 7 %; MCH 30.3 pg (25.0-35.0); MCHC 30.8 g/dL (31.0-37.0); MCV 98.3 fL (80.0-100.0); Mean Platelet Volume 7.7; Monocytes # (A) 0.4 k/uL (0-1.0); Monocytes % (A) 3 %; Neutrophils % (A) 89 %; Platelet Count 320 k/uL (150-450); RBC 3.06 m/uL (3.80-5.40); RDW 14.3 % (11.5-15.5); WBC 12.4 k/uL (3.8-10.6)
[2023-08-02 06:48] LABS: African American GFR (CKD) >90 (>60 ml/min/1.73 sqM); Anion Gap 7 mmol/L; Blood Urea Nitrogen 22 mg/dL (7-17); Calcium 8.7 mg/dL (8.4-10.2); Chloride 91 mmol/L (98-107); Glucose 186 mg/dL (74-99); Non-African American GFR(CKD) 80 (>60 ml/min/1.73 sqM); Potassium 3.3 mmol/L (3.5-5.1); Sodium 138 mmol/L (137-145)
[2023-08-02 06:58] LABS: Carbon Dioxide 40 mmol/L (22-30)
--- NOTE | 2023-08-02 07:38 | XR ---
EXAMINATION TYPE: XR chest 1V portable DATE OF EXAM: 08/02/2023 HISTORY: Shortness of breath. COMPARISON: 08/01/2023 TECHNIQUE: Single view of the chest is submitted. FINDINGS: Demonstrated are scattered senescent parenchymal change. Patchy infiltrate right mid and right lower lung zones persists although slightly improved. Continued progress study is advised. The heart is stable. Hilar and mediastinal structures are within normal limits. Degenerative changes are seen of the dorsal spine. IMPRESSION: 1. Patchy infiltrate right mid and right lower lung zones persists although slightly improved. Winifred nued progress study is advised.
[2023-08-02] MEDS: POTASSIUM CHLORIDE ER 20 MEQ TAB.ER PO SCH (08:40)
--- NOTE | 2023-08-02 09:15 | P.PN ---
Subjective Progress Note Date: 08/02/23 the patient is a 63-year-old female who presents to the hospital with increased shortness of breath. She has a history of severe aortic stenosis and was initially being followed by our TAVR clinic. Patient has been admitted with COPD and heart failure exacerbation. She underwent aortic balloon valvuloplasty on 07/28/[address] Hinkle. She tolerated the procedure well, but remains on high flow nasal cannula. Echo shows aortic gradient improved to 38 mmHg. The patient is currently being treated for community-acquired pneumonia, with minimal improvement in serial chest x-rays. the patient was interviewed and examined resting comfortably in bed. The patient states she does have shortness of breath. No chest pain or chest pressure. She states she did not have any dizziness or lightheadedness when standing to the bedside commode. GENERAL: Well-appearing, well-nourished and in no acute distress. NECK: Supple without JVD or thyromegaly. LUNGS: Breath sounds diminished to auscultation bilaterally, worse on the left. Respiration equal and unlabored. HEART: Regular rate and rhythm. Systolic ejection murmur. S1 and S2 heard. EXTREMITIES: Normal range of motion, no edema. No clubbing or cyanosis. Peripheral pulses intact and strong. TELEMETRY: Sinus mechanism overnight IMPRESSION: Severe aortic stenosis Status post aortic balloon valvuloplasty Congestive heart failure History of COPD on home oxygen Community-acquired pneumonia PLAN: Aggressive pulmonary hygiene Continue to wean from high flow oxygen as tolerated Further recommendations to be based upon clinical course I am dictating on behalf of Dr Kendrick Olson's history/physical and assessment/plan. Objective - Vital Signs Vital signs: Vital Signs Temp 98.3 F 08/02/23 01:00 Pulse 92 08/02/23 08:00 Resp 19 08/02/23 07:00 BP 135/77 08/02/23 07:00 Pulse Ox 92 L 08/02/23 07:00 FiO2 50 08/02/23 08:35 Intake & Output 08/01/23 08/02/23 08/02/23 18:59 06:59 18:59 Intake Total 680 340 Output Total 750 0 Balance 680 -410 0 Intake: IV 200 100 Piperacillin-Tazobactam 3 200 100 .375 gm In Sodium Chloride 0.9% 100 ml @ 25 mls/hr IVPB Q8HR [facility] Rx# :[id number] Oral 480 Tube Feeding 240 Output: Urine 750 0 Other: Voiding Method Bedside Commode Bedside Commode # Voids 300 0 # Bowel Movements 1 0 - Labs CBC & Chem 7: 08/02/23 05:26 08/02/23 05:26 Labs: Abnormal Lab Results - Last 24 Hours (Table) 08/01/23 08/01/23 08/01/23 Range/Units 11:57 17:37 19:54 WBC (3.8-10.6) k/uL RBC (3.80-5.40) m/uL Hgb (11.4-16.0) gm/dL Hct (34.0-46.0) % MCHC (31.0-37.0) g/dL Neutrophils # (1.3-7.7) k/uL Lymphocytes # (1.0-4.8) k/uL Potassium (3.5-5.1) mmol/L Chloride (98-107) mmol/L Carbon Dioxide (22-30) mmol/L BUN (7-17) mg/dL Glucose (74-99) mg/dL POC Glucose (mg/dL) 182 H 255 H 235 H (70-110) mg/dL 08/02/23 08/02/23 08/02/23 Range/Units 05:26 05:26 06:15 WBC 12.4 H (3.8-10.6) k/uL RBC 3.06 L (3.80-5.40) m/uL Hgb 9.2 L (11.4-16.0) gm/dL Hct 30.0 L (34.0-46.0) % MCHC 30.8 L (31.0-37.0) g/dL Neutrophils # 11.0 H (1.3-7.7) k/uL Lymphocytes # 0.9 L (1.0-4.8) k/uL Potassium 3.3 L (3.5-5.1) mmol/L Chloride 91 L (98-107) mmol/L Carbon Dioxide 40 H (22-30) mmol/L BUN 22 H (7-17) mg/dL Glucose 186 H (74-99) mg/dL POC Glucose (mg/dL) 206 H (70-110) mg/dL Microbiology - Last 24 Hours (Table) 07/27/23 16:09 Blood Culture - Final Blood
--- NOTE | 2023-08-02 10:28 | P.PN ---
Subjective Progress Note Date: 08/02/23 63-year-old female well-known to our service. The patient has a history of chronic hypoxemic respiratory failure secondary to COPD, and is chronically oxygen dependent. The patient presented to the emergency room, on July 23, complaining of chest pain. The pain apparently was on the right side of her chest, and radiated into her right arm. The pain started on the prior . The patient does have a history of coronary disease, and has had stents placed in the last year. In addition, she admits to chronic shortness of breath, secondary to her severe COPD. The patient did go to the catheterization laboratory on July 23, and was found to have a 40 to 50% stenosis, in the mid LAD, with a patent proximal RCA stent. In addition, on echocardiogram, the patient was found to have severe aortic stenosis, with a valve surface area of 1.6 cm, and a gradient across the aortic valve, of 100 mmHg. The patient underwent a valvuloplasty by cardiology. On today's evaluation of 07/31/2023, the patient is being seen for a follow-up. The patient is calm and comfortable. She is still having oxygen saturations on high flow oxygen and the patient will be placed on Airvo to maintain an oxygen saturation above 90%. The patient has advanced COPD and the patient is typically on oxygen at 5 L at baseline. The patient is also developed a right lower lobe consolidation consistent with pneumonia and the patient remains on IV Zosyn. Earlier, the patient was not nonabrasive fullface mask and the patient will be switched to Airvo. IV fluids are currently at KVO. The procalcitonin level is at 0.14. Hemodynamically stable and the patient is on no pressors. White cell count at 13.4 with a hemoglobin 9.2 and a platelet count of 254. BUN is at 17 with a creatinine of 0.8 and a sodium levels at 137. Potassium level is at 3.8. The patient is receiving Lasix 40 mg p.o. daily. The patient is on prednisone 5 mg p.o. daily. The patient also has developed shingles in the right upper extremity and the patient is currently on Valtrex. Remains on DuoNeb updrafts. Remains on a combination of Perforomist and Pulmicort updrafts twice a day. As mentioned, chest x-ray showing a right lower lobe consolidation. On today's evaluation of 08/01/2023, the patient is essentially the same as yester day. No significant changes in terms of her oxygenation. The patient remains on Airvo 40 L with FiO2 of 50%. No fever. No chills. Using incentive spirometer. No chest pain. No signs of any CO2 narcosis or altered mentation. Blood work from today shows a WBC count of 13 with a hemoglobin 8.7 and a platelet count of 272. Sodium is at 137 with a potassium level of 3.2, bicarb is at 39 with a BUN of 15 and a creatinine of 0.7. Fluid balance over the past 24 hours is -2.6 L and the patient is headed towards another 2.5 L negative in terms of her fluid balance over the next 24 hours. The patient remains on bronchodilators. The patient remains on IV Solu-Medrol 40 mg every 6 hours. The patient remains on IV Zosyn. The patient remains on Lasix 40 mg IV every 8 hours. A repeat chest x-ray was also done today and the findings are essentially showing background COPD with some improvement in the residual coarse infiltration in the right mid and right lower lobe area. 08/22/2023, the patient remains on Airvo 40 L with FiO2 of 50%. No major improvement in oxygenation and the patient continues to desaturate once FiO2 is dropped down to 40%. Nevertheless, she feels, comfortable without having any significant shortness of breath at rest. No significant sputum production. No fever or chills. She continues to make excellent urine output. Fluid balance has been negative another 2.5 L over the past 24 hours and the patient is being diuresed with Lasix 40 mg IV every 8 hours. The patient remains on DuoNeb updrafts. The patient remains on Solu-Medrol 40 mg every 6 hours. Breath sounds are quite diminished and there is no significant bronchospasm or wheezing. Repeat chest x-ray was done today and the patient was found to have limited patchy infiltrates in the right midlung in the right lower lung which continues to improve on repeated chest x-rays. WBC count of 12.4 with a hemoglobin 9.2 and a platelet count of 220. BUN is 22 with a creatinine of 0.8 and a sodium levels of 138 with a potassium level of 3.3. K level is being replaced. She remains on IV Zosyn. She remains on oral Valtrex. Shingles is being treated and the skin lesions are all stable. Objective - Vital Signs Vital signs: Vital Signs Temp 98.3 F 08/02/23 01:00 Pulse 92 08/02/23 08:00 Resp 19 08/02/23 07:00 BP 135/77 08/02/23 07:00 Pulse Ox 92 L 08/02/23 07:00 FiO2 40 08/02/23 07:19 Intake & Output 08/01/23 08/02/23 08/02/23 18:59 06:59 18:59 Intake Total 680 340 Output Total 750 0 Balance 680 -410 0 Intake: IV 200 100 Piperacillin-Tazobactam 3 200 100 .375 gm In Sodium Chloride 0.9% 100 ml @ 25 mls/hr IVPB Q8HR [facility] Rx# :[id number] Oral 480 Tube Feeding 240 Output: Urine 750 0 Other: Voiding Method Bedside Commode Bedside Commode # Voids 300 0 # Bowel Movements 1 0 - Exam No acute distress, oriented 3. The patient is currently on Airvo and the patient will be taken off to 100% on the breather facemask. She has obvious cushingoid features and she is morbidly obese with a BMI of 36.7. HEENT examination is grossly unremarkable. Mucous membranes are moist. No oral lesions. Neck supple. Full range of motion. No adenopathy thyromegaly or neck vein distention. Cardiovascular examination reveals regular rhythm rate. S1-S2 normal. No S3 or S4. Harsh systolic ejection murmur over the left apex and left lateral sternal border. Heart sounds are distant. Lungs reveal diminished bilateral breath sounds. Scattered rhonchi and wheezes are noted. No crackles. Breath sounds equal bilaterally Abdominal exam revealed normal bowel sounds. The abdomen was soft, non-tender, and without masses, organomegaly, or appreciable enlargement of the abdominal aorta. Extremities are intact. No cyanosis clubbing or edema. Skin is without rash or lesion. Shingles with right lesions in the right upper extremity. No open vesicles at this point in time. Neurologically, the patient is awake and alert and the patient does not have any focal neurological deficit. Cranial nerves are essentially intact. - Labs CBC & Chem 7: 08/02/23 05:26 08/02/23 05:26 Labs: Abnormal Lab Results - Last 24 Hours (Table) 08/01/23 08/01/23 08/01/23 Range/Units 11:57 17:37 19:54 WBC (3.8-10.6) k/uL RBC (3.80-5.40) m/uL Hgb (11.4-16.0) gm/dL Hct (34.0-46.0) % MCHC (31.0-37.0) g/dL Neutrophils # (1.3-7.7) k/uL Lymphocytes # (1.0-4.8) k/uL Potassium (3.5-5.1) mmol/L Chloride (98-107) mmol/L Carbon Dioxide (22-30) mmol/L BUN (7-17) mg/dL Glucose (74-99) mg/dL POC Glucose (mg/dL) 182 H 255 H 235 H (70-110) mg/dL 08/02/23 08/02/23 08/02/23 Range/Units 05:26 05:26 06:15 WBC 12.4 H (3.8-10.6) k/uL RBC 3.06 L (3.80-5.40) m/uL Hgb 9.2 L (11.4-16.0) gm/dL Hct 30.0 L (34.0-46.0) % MCHC 30.8 L (31.0-37.0) g/dL Neutrophils # 11.0 H (1.3-7.7) k/uL Lymphocytes # 0.9 L (1.0-4.8) k/uL Potassium 3.3 L (3.5-5.1) mmol/L Chloride 91 L (98-107) mmol/L Carbon Dioxide 40 H (22-30) mmol/L BUN 22 H (7-17) mg/dL Glucose 186 H (74-99) mg/dL POC Glucose (mg/dL) 206 H (70-110) mg/dL Microbiology - Last 24 Hours (Table) 07/27/23 16:09 Blood Culture - Final Blood Assessment and Plan Plan: Acute on chronic hypoxic respiratory failure. Typically the patient is on 5 L of oxygen by nasal cannula. Currently she is 100% on her breather facemask. The patient has developed a right lower lobe consolidation consistent with pneumonia and the patient is currently on IV Zosyn. The patient is currently on Airvo 40 L with an FiO2 of 50%. Chest x-ray showing improving right lower lobe consolidation. The patient continues to require high flow oxygen. Unable to wean down FiO2 any further. The right lower and midlung infiltration continues to show steady improvement. She continues to produce excellent amount of urine output with diuresis. Coronary artery disease, involving the LAD, with 40 to 50% stenosis, and a patent proximal RCA stent. Severe aortic stenosis with a valve surface area of 0.6 cm, S/P BVP, July 28, 2023, postop day # 5 Right lower lobe consolidation/pneumonia, consider hospital-acquired pneumonia versus aspiration., Improved on today's chest x-ray and the patient remains on IV Zosyn. chronic hypoxemic and hypercapnic respiratory failure, secondary to COPD. Shingles involving the right upper extremity currently on Valtrex History of hyperlipidemia. History of hypertension. History of chronic low back pain. Obesity. Aortic valve stenosis. History of tracheobronchitis. Prior history of heavy tobacco use. Plan: Transition this patient to Airvo and titrate oxygen flow and saturation to maintain a saturation above 90%, currently on 40 L with FiO2 of 50%, will continue our attempts to wean down the FiO2 gradually. No need to repeat the CAT scan of the chest at this point in time. Continue bronchodilators with DuoNeb updrafts Continue on Perforomist and Pulmicort nebulized treatments twice a day IV Solu-Medrol 40 mg every 6 hours IV Zosyn Continue IV Lasix 40 mg every 8 hours Negative fluid balance Urine output. Potassium level needs to be replaced. No need for pressors at this point in time Continue Valtrex for shingles of the right upper extremity Keep the patient on KVO IV fluids Incentive spirometer Increase mobility Daily chest x-rays Monitor the fluid balance and the patient is headed towards a negative fluid balance over the next 24 hours Will continue to follow
[2023-08-02 11:45] LABS: Glucose,Whole Blood 268 mg/dL (70-110)
--- NOTE | 2023-08-02 14:16 | P.PN ---
Subjective This is a pleasant 62 years old female with past medical history of multiple medical problems including COPD and chronic hypoxic respiratory failure on 5 L oxygen at home and she follows up with Dr. MACARIO for her COPD. Other medical problems including aortic stenosis status post TAVR, coronary artery disease s/p stent and depression and anxiety. Patient presents because of pain in her right shoulder radiating to her right arm and right chest for a few days since , 110/10 in severity, no history of trauma or fall. Pain described as nonspecific with no precipitating or relieving factors. She denies dyspnea she has dry cough. She is using 5 L of oxygen at home. No change in urine or bowel habits. No headache dizziness weakness or numbness. She denies current smoking alcohol or illicit drugs Patient is hemodynamically stable, afebrile She has unremarkable CBC, INR, BMP, liver enzymes, lipase Troponin is elevated 0.04 Chest x-ray is negative for acute process EKG showing atrial tachycardia with short GA interval but no significant ST-T changes. 07/25/2023 Patient is status post cardiac cath yesterday showing mid LAD stenosis 40-50% with patent RCA stent, also shows evidence of severe aortic stenosis, therefore cardiothoracic surgery team were consulted however patient is known not to follow-up on patient, as confirmed with the patient and daughter at bedside today who states that her mom usually go home call Dr. trejo isn't canceled her appointment and she does not follow up Further workup per cardiothoracic surgery team is requested here On admission yesterday she has limited air entry and she was placed on IV Solu- Medrol or acute COPD exacerbation, whiletoday air flow is much better although she has scattered wheezing and she still mildly tachypneic and therefore we consulted pulmonary service currently she is placed on prednisone 5 mg. she is to have mild to moderate right shoulder pain mostly related to her cardiac disease. Some elements of osteoarthritis. her heparin drip was stopped , 07/26/2023 Patient breathing is better, no chest pain today But she still complaining from more severe right shoulder pain. Patient has this pain improved with the steroids but when switched to oral prednisone 5 mg the pain increased today again. She has more rash in her medial arm and forearm and the arm. For short distance with maculopapular rash with possible some vesicles been forming with the pain and tenderness goes with the rash and around it, signs suspicious for shingles. Therefore we are going to start her on [place] for pain management and valacyclovir and asked ID team to reevaluate. Also will put on isolation till cleared. She is hemodynamically stable She is being evaluated by cardiothoracic surgery team as well. 07/27/2023 Patient is awake and alert she denies chest pain but she still complaining from right shoulder pain and neuropathic pain along her rash in the right armpit and the surrounding skin down to the left wrist along the medial side, rash is getting somewhat crusted partially. Breathing is stable However through the day her blood pressure became on the low side She is getting normal saline running at 90 mL/h Cardiology team and planning for balloon valvuloplasty for her severe aortic stenosis She is currently covered with valacyclovir, Lyrica, prednisone 5 mg Oral Lasix and Farxiga 08/01/2023 Patient looks comfortable somewhat but mildly tachypneic, she had aortic valve procedure valvoplasty for her severe aortic stenosis and that improved her blood pressure but patient had decompensated pulmonary function and developed acute COPD exacerbation and fluid overload and currently she is on IV Solu-Medrol 60 mg and IV Lasix 40 mg Also patient placed on broad-spectrum antibiotic with Zosyn besides her Valtrex and Lyrica for her herpes rash of the right upper extremity which is currently improved significantly. Patient still complaining from pain but improved from last week Also patient on Farxiga and metoprolol Other vitals look stable, she is mildly tachycardic but afebrile. WBC is 13 and hemoglobin stable at 8.7. Chest x-ray showing bilateral infiltrate 08/02/2023 Patient is tachypneic today. She still needs 40 L/min of oxygen like yesterday No other new complaints She remains on IV Solu-Medrol, Zosyn and IV Lasix 40 mg every 8 hours Also she is on Valtrex and Lyrica which is improving her herpes infection Objective - Vital Signs Vital signs: Vital Signs Temp 98.2 F 08/02/23 08:00 Pulse 96 08/02/23 12:00 Resp 18 08/02/23 12:00 BP 110/75 08/02/23 12:00 Pulse Ox 92 L 08/02/23 12:00 FiO2 50 08/02/23 11:21 Intake & Output 08/01/23 08/02/23 08/02/23 18:59 06:59 18:59 Intake Total 680 340 820 Output Total 750 850 Balance 680 -410 -30 Intake: IV 200 100 100 Piperacillin-Tazobactam 3 200 100 100 .375 gm In Sodium Chloride 0.9% 100 ml @ 25 mls/hr IVPB Q8HR [facility] Rx# :[id number] Oral 480 720 Tube Feeding 240 Output: Urine 750 850 Other: Voiding Method Bedside Commode Bedside Commode Bedside Commode # Voids 300 0 # Bowel Movements 1 0 - Exam GENERAL: The patient is alert and oriented x3, not in any acute distress. Well developed, well nourished. HEENT: Pupils are round and equally reacting to light. EOMI. No scleral icterus. No conjunctival pallor. Normocephalic, atraumatic. No pharyngeal erythema. No thyromegaly. CARDIOVASCULAR: S1 and S2 present. No murmurs, rubs, or gallops. -PULMONARY: Chest is clear to auscultation, scattered wheezing , no crackles. ABDOMEN: Soft, nontender, nondistended, normoactive bowel sounds. No palpable organomegaly. MUSCULOSKELETAL: No joint swelling or deformity. EXTREMITIES: No cyanosis, clubbing, or pedal edema. NEUROLOGICAL: Gross neurological examination did not reveal any focal deficits. SKIN: No rashes. no petechiae. - Labs CBC & Chem 7: 08/02/23 05:26 08/02/23 12:14 Labs: Abnormal Lab Results - Last 24 Hours (Table) 08/01/23 08/01/23 08/02/23 Range/Units 17:37 19:54 05:26 WBC 12.4 H (3.8-10.6) k/uL RBC 3.06 L (3.80-5.40) m/uL Hgb 9.2 L (11.4-16.0) gm/dL Hct 30.0 L (34.0-46.0) % MCHC 30.8 L (31.0-37.0) g/dL Neutrophils # 11.0 H (1.3-7.7) k/uL Lymphocytes # 0.9 L (1.0-4.8) k/uL Potassium (3.5-5.1) mmol/L Chloride (98-107) mmol/L Carbon Dioxide (22-30) mmol/L BUN (7-17) mg/dL Glucose (74-99) mg/dL POC Glucose (mg/dL) 255 H 235 H (70-110) mg/dL 08/02/23 08/02/23 08/02/23 Range/Units 05:26 06:15 11:43 WBC (3.8-10.6) k/uL RBC (3.80-5.40) m/uL Hgb (11.4-16.0) gm/dL Hct (34.0-46.0) % MCHC (31.0-37.0) g/dL Neutrophils # (1.3-7.7) k/uL Lymphocytes # (1.0-4.8) k/uL Potassium 3.3 L (3.5-5.1) mmol/L Chloride 91 L (98-107) mmol/L Carbon Dioxide 40 H (22-30) mmol/L BUN 22 H (7-17) mg/dL Glucose 186 H (74-99) mg/dL POC Glucose (mg/dL) 206 H 268 H (70-110) mg/dL Microbiology - Last 24 Hours (Table) 07/27/23 16:09 Blood Culture - Final Blood Assessment and Plan Assessment: Right shoulder pain/chest pain with right upper extremity rash along the medial side, shingles severe aortic stenosis, status post aortic valvuloplasty Acute CHF exacerbation. Cannot rule out pneumonia Acute COPD exacerbation. Mildly acute on chronic hypoxic respiratory failure. Resolved Atrial tachycardia with short GA interval Coronary artery disease s/p stent History of arctic stenosis s/p TAVR Obesity with BMI of 36.6 History of depression and anxiety, no acute process. Plan: Start valacyclovir, Lyrica, And ID consult Continue with Zosyn Continue with IV Lasix Continue with IV Solu-Medrol Continue with aspirin Cardiology consult, with plan for possible balloon valvuloplasty cardiothoracic consult patient and olga at bed side were counseled about the importance of follow- up with appointment prednisone 5 mg daily Continue breathing treatment and bronchodilator Labs and medication were reviewed.. Continue same treatment. Continue with symptomatic treatment. Resume home medication. Monitor labs and vitals. DVT and GI prophylaxis. Further recommendations as per clinical course of the patient DVT prophylaxis: Subcutaneous heparin GI Prophylaxis: Pepcid Prognosis is guarded
--- NOTE | 2023-08-02 14:55 | P.PN ---
Subjective Progress Note Date: 08/02/23 Principal diagnosis: Reason for follow-up is right T10 dermatome shingles Patient is a 63-year-old female past medical history significant for COPD coronary artery disease [place] former smoker presenting to the hospital for evaluation of chest pain on the right side of her chest and is also complaining of pain to the right upper arm, patient did develop a rash prompting this consultation and has been diagnosed with shingles. On today's evaluation that is 08/02/2023,the patient remains to be afebrile, patient is on 40% supplemental oxygen however denies any shortness of breath no chest pain or worsening cough.Patient denies having any nausea or vomiting, no abdominal pain and no diarrhea pain to the right upper extremity rash has decreased in intensity. Patient white count is 12.4, creatinine 0.80 Objective - Vital Signs Vital signs: Vital Signs Temp 98.2 F 08/02/23 08:00 Pulse 91 08/02/23 14:00 Resp 33 H 08/02/23 14:00 BP 110/75 08/02/23 12:00 Pulse Ox 94 L 08/02/23 14:00 FiO2 50 08/02/23 11:21 Intake & Output 08/01/23 08/02/23 08/02/23 18:59 06:59 18:59 Intake Total 543 930 1717 Output Total 750 1150 Balance 680 -410 -90 Intake: IV 200 100 100 Piperacillin-Tazobactam 3 200 100 100 .375 gm In Sodium Chloride 0.9% 100 ml @ 25 mls/hr IVPB Q8HR [facility] Rx# :[id number] Oral 480 960 Tube Feeding 240 Output: Urine 750 1150 Other: Voiding Method Bedside Commode Bedside Commode Bedside Commode # Voids 300 0 # Bowel Movements 1 0 - Exam GENERAL DESCRIPTION: Middle-aged female lying in bed in no distress RESPIRATORY SYSTEM: Unlabored breathing , decreased breath sounds at bases HEART: S1 S2 regular rate and rhythm , ABDOMEN: Soft , no tenderness EXTREMITIES: Right upper extremity vesicular rash is drying out - Labs CBC & Chem 7: 08/02/23 05:26 08/02/23 12:14 Labs: Abnormal Lab Results - Last 24 Hours (Table) 08/01/23 08/01/23 08/02/23 Range/Units 17:37 19:54 05:26 WBC 12.4 H (3.8-10.6) k/uL RBC 3.06 L (3.80-5.40) m/uL Hgb 9.2 L (11.4-16.0) gm/dL Hct 30.0 L (34.0-46.0) % MCHC 30.8 L (31.0-37.0) g/dL Neutrophils # 11.0 H (1.3-7.7) k/uL Lymphocytes # 0.9 L (1.0-4.8) k/uL Potassium (3.5-5.1) mmol/L Chloride (98-107) mmol/L Carbon Dioxide (22-30) mmol/L BUN (7-17) mg/dL Glucose (74-99) mg/dL POC Glucose (mg/dL) 255 H 235 H (70-110) mg/dL 08/02/23 08/02/23 08/02/23 Range/Units 05:26 06:15 11:43 WBC (3.8-10.6) k/uL RBC (3.80-5.40) m/uL Hgb (11.4-16.0) gm/dL Hct (34.0-46.0) % MCHC (31.0-37.0) g/dL Neutrophils # (1.3-7.7) k/uL Lymphocytes # (1.0-4.8) k/uL Potassium 3.3 L (3.5-5.1) mmol/L Chloride 91 L (98-107) mmol/L Carbon Dioxide 40 H (22-30) mmol/L BUN 22 H (7-17) mg/dL Glucose 186 H (74-99) mg/dL POC Glucose (mg/dL) 206 H 268 H (70-110) mg/dL Microbiology - Last 24 Hours (Table) 07/27/23 16:09 Blood Culture - Final Blood Assessment and Plan (1) Zoster Current Visit: Yes Status: Acute Code(s): B02.9 - ZOSTER WITHOUT COMPLICATIONS SNOMED Code(s): 5088744 (2) Leukocytosis Current Visit: Yes Status: Acute Code(s): D72.829 - ELEVATED WHITE BLOOD CELL COUNT, UNSPECIFIED SNOMED Code(s): 530730255 (3) Pneumonia Current Visit: No Status: Acute Code(s): J18.9 - PNEUMONIA, UNSPECIFIED ORGANISM SNOMED Code(s): 548247364 Plan: 1patient presented to hospital with pain to the right side of the chest and right upper extremity not developing a rash which is a following T1 dermatome likely herpes zoster with no evidence of any secondary cellulitis 2-patient rash to the right upper arm decreased in intensity no evidence of cellulitis, patient to continue with Valtrex 1 g every 8 hours to finish 7-day course of therapy along with Lyrica for postherpetic neuralgia, 3-leukocytosis with a right perihilar infiltrate concerning for possible nosocomial pneumonia, the patient is afebrile patient white count is trending down continue with Zosyn and monitor clinical course closely Dictation was produced using [employer] dictation software. please excuse any grammatical, word or spelling errors. Time with Patient: Less than 30
[2023-08-02 16:09] LABS: Glucose,Whole Blood 253 mg/dL (70-110)
[2023-08-02 20:05] LABS: Glucose,Whole Blood 206 mg/dL (70-110)
[2023-08-02 21:14] LABS: Glucose,Whole Blood 259 mg/dL (70-110)
[2023-08-03 06:33] LABS: Basophils # (A) 0.1 k/uL (0-0.2); Basophils % (A) 0 %; Eosinophils % (A) 0 %; HCT 30.1 % (34.0-46.0); HGB 9.4 gm/dL (11.4-16.0); Hypochromasia Moderate; Lymphocytes # (A) 0.9 k/uL (1.0-4.8); Lymphocytes % (A) 5 %; MCH 30.8 pg (25.0-35.0); MCHC 31.2 g/dL (31.0-37.0); MCV 98.8 fL (80.0-100.0); Mean Platelet Volume 7.9; Monocytes # (A) 0.8 k/uL (0-1.0); Monocytes % (A) 5 %; Neutrophils # (A) 14.7 k/uL (1.3-7.7); Neutrophils % (A) 88 %; Platelet Count 346 k/uL (150-450); RBC 3.05 m/uL (3.80-5.40); RDW 14.5 % (11.5-15.5); WBC 16.6 k/uL (3.8-10.6)
[2023-08-03 06:34] LABS: Glucose,Whole Blood 201 mg/dL (70-110)
[2023-08-03 06:40] LABS: African American GFR (CKD) 73 (>60 ml/min/1.73 sqM); Blood Urea Nitrogen 33 mg/dL (7-17); Calcium 8.9 mg/dL (8.4-10.2); Chloride 92 mmol/L (98-107); Glucose 187 mg/dL (74-99); Non-African American GFR(CKD) 64 (>60 ml/min/1.73 sqM); Potassium 3.4 mmol/L (3.5-5.1); Sodium 139 mmol/L (137-145)
[2023-08-03 06:48] LABS: Anion Gap 5 mmol/L
[2023-08-03 06:51] LABS: Carbon Dioxide 42 mmol/L (22-30)
[2023-08-03] MEDS: INSULIN ASPART (NovoLOG) 100 UNIT/ML VIAL SQ SCH (07:00)
--- NOTE | 2023-08-03 07:59 | XR ---
EXAMINATION TYPE: XR chest 1V portable DATE OF EXAM: 08/03/2023 HISTORY: Shortness of breath. COMPARISON: 08/02/2023 TECHNIQUE: Single view of the chest is submitted. FINDINGS: Demonstrated are scattered senescent parenchymal change. Patchy infiltrate right mid and right lower lung zones persist without significant change. The heart is stable. Hilar and mediastinal structures are within normal limits. Degenerative changes are seen of the dorsal spine. IMPRESSION: 1. Stable right lower lobe pneumonia.
[2023-08-03] MEDS: POTASSIUM CHLORIDE ER 20 MEQ TAB.ER PO SCH (08:28)
--- NOTE | 2023-08-03 09:20 | P.PN ---
Subjective Progress Note Date: 08/03/23 The patient is a 63-year-old female who presents to the hospital with increased shortness of breath. She has a history of severe aortic stenosis and was initially being followed by our TAVR clinic. Patient has been admitted with COPD and heart failure exacerbation. She underwent aortic balloon valvuloplasty on 07/28/[address] Hinkle. She tolerated the procedure well, but remains on high flow nasal cannula. Echo shows aortic gradient improved to 38 mmHg. The patient is currently being treated for community-acquired pneumonia, with minimal improvement in serial chest x-rays. the patient was interviewed and examined resting comfortably in bed. She states her breathing is better over the last 24 hours. No chest pain or chest pressure. She states she did not have any dizziness or lightheadedness when standing to the bedside commode. GENERAL: Well-appearing, well-nourished and in no acute distress. NECK: Supple without JVD or thyromegaly. LUNGS: Breath sounds diminished to auscultation bilaterally, worse on the left. Respiration equal and unlabored. HEART: Regular rate and rhythm. Systolic ejection murmur. S1 and S2 heard. EXTREMITIES: Normal range of motion, no edema. No clubbing or cyanosis. Peripheral pulses intact and strong. TELEMETRY: Sinus mechanism overnight IMPRESSION: Severe aortic stenosis Status post aortic balloon valvuloplasty Congestive heart failure History of COPD on home oxygen Community-acquired pneumonia PLAN: Aggressive pulmonary hygiene Continue to wean from high flow oxygen Outpatient follow-up with Dr. Hinkle in regards to aortic stenosis No further recommendations from the cardiac standpoint I am dictating on behalf of Dr Kendrick Olson's history/physical and assessment/plan. Objective - Vital Signs Vital signs: Vital Signs Temp 98 F 08/03/23 04:00 Pulse 71 08/03/23 08:12 Resp 25 H 08/03/23 07:00 BP 153/77 08/03/23 07:00 Pulse Ox 94 L 08/03/23 07:57 FiO2 50 08/03/23 07:57 Intake & Output 08/02/23 08/03/23 08/03/23 18:59 06:59 18:59 Intake Total 1400 320 Output Total 1850 1350 0 Balance -450 -1030 0 Weight 91 kg Intake: IV 200 100 Piperacillin-Tazobactam 3 200 100 .375 gm In Sodium Chloride 0.9% 100 ml @ 25 mls/hr IVPB Q8HR [facility] Rx# :[id number] Oral 1200 220 Output: Urine 1850 1350 0 Other: Voiding Method Bedside Commode Bedside Commode - Labs CBC & Chem 7: 08/03/23 05:31 08/03/23 05:31 Labs: Abnormal Lab Results - Last 24 Hours (Table) 08/02/23 08/02/23 08/02/23 Range/Units 11:43 16:07 20:04 WBC (3.8-10.6) k/uL RBC (3.80-5.40) m/uL Hgb (11.4-16.0) gm/dL Hct (34.0-46.0) % Neutrophils # (1.3-7.7) k/uL Lymphocytes # (1.0-4.8) k/uL Potassium (3.5-5.1) mmol/L Chloride (98-107) mmol/L Carbon Dioxide (22-30) mmol/L BUN (7-17) mg/dL Glucose (74-99) mg/dL POC Glucose (mg/dL) 268 H 253 H 206 H (70-110) mg/dL 08/02/23 08/03/23 08/03/23 Range/Units 21:13 05:31 05:31 WBC 16.6 H (3.8-10.6) k/uL RBC 3.05 L (3.80-5.40) m/uL Hgb 9.4 L (11.4-16.0) gm/dL Hct 30.1 L (34.0-46.0) % Neutrophils # 14.7 H (1.3-7.7) k/uL Lymphocytes # 0.9 L (1.0-4.8) k/uL Potassium 3.4 L (3.5-5.1) mmol/L Chloride 92 L (98-107) mmol/L Carbon Dioxide 42 H* (22-30) mmol/L BUN 33 H (7-17) mg/dL Glucose 187 H (74-99) mg/dL POC Glucose (mg/dL) 259 H (70-110) mg/dL 08/03/23 Range/Units 06:32 WBC (3.8-10.6) k/uL RBC (3.80-5.40) m/uL Hgb (11.4-16.0) gm/dL Hct (34.0-46.0) % Neutrophils # (1.3-7.7) k/uL Lymphocytes # (1.0-4.8) k/uL Potassium (3.5-5.1) mmol/L Chloride (98-107) mmol/L Carbon Dioxide (22-30) mmol/L BUN (7-17) mg/dL Glucose (74-99) mg/dL POC Glucose (mg/dL) 201 H (70-110) mg/dL
[2023-08-03 10:01] LABS: ABG Base Excess 22.4 mmol/L; ABG Oxygen Saturation 89.6 % (94-97); ABG PH 7.41 (7.35-7.45); ABG TCO2 49 mmol/L (19-24); Allen Test Performed? Yes
[2023-08-03 10:08] LABS: ABG PCO2 74 mmHg (35-45)
[2023-08-03 10:09] LABS: ABG HCO3 47 mmol/L (21-25); ABG PO2 57 mmHg (83-108)
[2023-08-03 11:00] LABS: Glucose,Whole Blood 209 mg/dL (70-110)
--- NOTE | 2023-08-03 12:32 | P.PN ---
Subjective Progress Note Date: 08/03/23 63-year-old female well-known to our service. The patient has a history of chronic hypoxemic respiratory failure secondary to COPD, and is chronically oxygen dependent. The patient presented to the emergency room, on July 23, complaining of chest pain. The pain apparently was on the right side of her chest, and radiated into her right arm. The pain started on the prior . The patient does have a history of coronary disease, and has had stents placed in the last year. In addition, she admits to chronic shortness of breath, secondary to her severe COPD. The patient did go to the catheterization laboratory on July 23, and was found to have a 40 to 50% stenosis, in the mid LAD, with a patent proximal RCA stent. In addition, on echocardiogram, the patient was found to have severe aortic stenosis, with a valve surface area of 1.6 cm, and a gradient across the aortic valve, of 100 mmHg. The patient underwent a valvuloplasty by cardiology. On today's evaluation of 07/31/2023, the patient is being seen for a follow-up. The patient is calm and comfortable. She is still having oxygen saturations on high flow oxygen and the patient will be placed on Airvo to maintain an oxygen saturation above 90%. The patient has advanced COPD and the patient is typically on oxygen at 5 L at baseline. The patient is also developed a right lower lobe consolidation consistent with pneumonia and the patient remains on IV Zosyn. Earlier, the patient was not nonabrasive fullface mask and the patient will be switched to Airvo. IV fluids are currently at KVO. The procalcitonin level is at 0.14. Hemodynamically stable and the patient is on no pressors. White cell count at 13.4 with a hemoglobin 9.2 and a platelet count of 254. BUN is at 17 with a creatinine of 0.8 and a sodium levels at 137. Potassium level is at 3.8. The patient is receiving Lasix 40 mg p.o. daily. The patient is on prednisone 5 mg p.o. daily. The patient also has developed shingles in the right upper extremity and the patient is currently on Valtrex. Remains on DuoNeb updrafts. Remains on a combination of Perforomist and Pulmicort updrafts twice a day. As mentioned, chest x-ray showing a right lower lobe consolidation. On today's evaluation of 08/01/2023, the patient is essentially the same as yester day. No significant changes in terms of her oxygenation. The patient remains on Airvo 40 L with FiO2 of 50%. No fever. No chills. Using incentive spirometer. No chest pain. No signs of any CO2 narcosis or altered mentation. Blood work from today shows a WBC count of 13 with a hemoglobin 8.7 and a platelet count of 272. Sodium is at 137 with a potassium level of 3.2, bicarb is at 39 with a BUN of 15 and a creatinine of 0.7. Fluid balance over the past 24 hours is -2.6 L and the patient is headed towards another 2.5 L negative in terms of her fluid balance over the next 24 hours. The patient remains on bronchodilators. The patient remains on IV Solu-Medrol 40 mg every 6 hours. The patient remains on IV Zosyn. The patient remains on Lasix 40 mg IV every 8 hours. A repeat chest x-ray was also done today and the findings are essentially showing background COPD with some improvement in the residual coarse infiltration in the right mid and right lower lobe area. 08/22/2023, the patient remains on Airvo 40 L with FiO2 of 50%. No major improvement in oxygenation and the patient continues to desaturate once FiO2 is dropped down to 40%. Nevertheless, she feels, comfortable without having any significant shortness of breath at rest. No significant sputum production. No fever or chills. She continues to make excellent urine output. Fluid balance has been negative another 2.5 L over the past 24 hours and the patient is being diuresed with Lasix 40 mg IV every 8 hours. The patient remains on DuoNeb updrafts. The patient remains on Solu-Medrol 40 mg every 6 hours. Breath sounds are quite diminished and there is no significant bronchospasm or wheezing. Repeat chest x-ray was done today and the patient was found to have limited patchy infiltrates in the right midlung in the right lower lung which continues to improve on repeated chest x-rays. WBC count of 12.4 with a hemoglobin 9.2 and a platelet count of 220. BUN is 22 with a creatinine of 0.8 and a sodium levels of 138 with a potassium level of 3.3. K level is being replaced. She remains on IV Zosyn. She remains on oral Valtrex. Shingles is being treated and the skin lesions are all stable. 08/03/2023, the patient feels well. She denies having any specific complaints. She is feeling better in terms of her breathing. Unfortunately, no significant improvement in the patient's oxygenation. The patient remains on 40 L with FiO2 of 50%.Okay make sure your white cell count is coming down okay chest x-ray findings are essentially stable with cardiomegaly and a stable right lower lobe pulmonary infiltrates. Fluid balance remains negative and the patient is in negative fluid balance of 1.4 L over the past 24 hours. She remains on Lasix 40 mg every 8 hours. She remains on Zosyn. She remains on IV Solu-Medrol 40 mg every 6 hours. She remains on bronchodilators. The patient has no significant cough or sputum production. No major edema in lower extremities. Repeat echocardiogram following the valvuloplasty showed improvement in the overall gradient through the aortic valve and gradients dropped from 75 down to 38. Continues to have mild to moderate mitral regurgitation. White cell count is 16.6 with a hemoglobin 9.4 and a platelet count of 346. Serum bicarb is at 42 with a sodium level of 139 and a potassium level of 3.4. BUN is at 33 with a creatinine of 0.96. Cardiac rhythm is sinus. Blood gas was done and it continues to show hypoxemia with a pO2 of 57. She has well compensated chronic hypercapnic respiratory failure. Objective - Vital Signs Vital signs: Vital Signs Temp 98 F 08/03/23 04:00 Pulse 71 08/03/23 08:12 Resp 25 H 08/03/23 07:00 BP 153/77 08/03/23 07:00 Pulse Ox 94 L 08/03/23 07:57 FiO2 50 08/03/23 07:57 Intake & Output 08/02/23 08/03/23 08/03/23 18:59 06:59 18:59 Intake Total 1400 320 Output Total 1850 1350 0 Balance -450 -1030 0 Weight 91 kg Intake: IV 200 100 Piperacillin-Tazobactam 3 200 100 .375 gm In Sodium Chloride 0.9% 100 ml @ 25 mls/hr IVPB Q8HR [facility] Rx# :[id number] Oral 1200 220 Output: Urine 1850 1350 0 Other: Voiding Method Bedside Commode Bedside Commode - Exam No acute distress, oriented 3. The patient is currently on Airvo at 40 L and FiO2 of 50%. She has obvious cushingoid features and she is morbidly obese with a BMI of 36.7. HEENT examination is grossly unremarkable. Mucous membranes are moist. No oral lesions. Neck supple. Full range of motion. No adenopathy thyromegaly or neck vein dis tention. Cardiovascular examination reveals regular rhythm rate. S1-S2 normal. No S3 or S4. Harsh systolic ejection murmur over the left apex and left lateral sternal border. Heart sounds are distant. Lungs reveal diminished bilateral breath sounds. Scattered rhonchi and wheezes are noted. No crackles. Breath sounds equal bilaterally Abdominal exam revealed normal bowel sounds. The abdomen was soft, non-tender, and without masses, organomegaly, or appreciable enlargement of the abdominal aorta. Extremities are intact. No cyanosis clubbing or edema. Skin is without rash or lesion. Shingles with right lesions in the right upper extremity. No open vesicles at this point in time. Neurologically, the patient is awake and alert and the patient does not have any focal neurological deficit. Cranial nerves are essentially intact. - Labs CBC & Chem 7: 08/03/23 05:31 08/03/23 05:31 Labs: Abnormal Lab Results - Last 24 Hours (Table) 08/02/23 08/02/23 08/02/23 Range/Units 11:43 16:07 20:04 WBC (3.8-10.6) k/uL RBC (3.80-5.40) m/uL Hgb (11.4-16.0) gm/dL Hct (34.0-46.0) % Neutrophils # (1.3-7.7) k/uL Lymphocytes # (1.0-4.8) k/uL Potassium (3.5-5.1) mmol/L Chloride (98-107) mmol/L Carbon Dioxide (22-30) mmol/L BUN (7-17) mg/dL Glucose (74-99) mg/dL POC Glucose (mg/dL) 268 H 253 H 206 H (70-110) mg/dL 08/02/23 08/03/23 08/03/23 Range/Units 21:13 05:31 05:31 WBC 16.6 H (3.8-10.6) k/uL RBC 3.05 L (3.80-5.40) m/uL Hgb 9.4 L (11.4-16.0) gm/dL Hct 30.1 L (34.0-46.0) % Neutrophils # 14.7 H (1.3-7.7) k/uL Lymphocytes # 0.9 L (1.0-4.8) k/uL Potassium 3.4 L (3.5-5.1) mmol/L Chloride 92 L (98-107) mmol/L Carbon Dioxide 42 H* (22-30) mmol/L BUN 33 H (7-17) mg/dL Glucose 187 H (74-99) mg/dL POC Glucose (mg/dL) 259 H (70-110) mg/dL 08/03/23 Range/Units 06:32 WBC (3.8-10.6) k/uL RBC (3.80-5.40) m/uL Hgb (11.4-16.0) gm/dL Hct (34.0-46.0) % Neutrophils # (1.3-7.7) k/uL Lymphocytes # (1.0-4.8) k/uL Potassium (3.5-5.1) mmol/L Chloride (98-107) mmol/L Carbon Dioxide (22-30) mmol/L BUN (7-17) mg/dL Glucose (74-99) mg/dL POC Glucose (mg/dL) 201 H (70-110) mg/dL Assessment and Plan Plan: Acute on chronic hypoxic respiratory failure. Typically the patient is on 5 L of oxygen by nasal cannula. The patient is currently on Airvo 40 L with an FiO2 of 50%. Continues to be treated for COPD exacerbation and CHF. The patient is post valvuloplasty of the aortic valve. There is improvement in the gradients postprocedure. Continues to diurese. Unfortunately, she continues to be hypoxic and the blood gas from today shows a stable chronic hypercapnic respiratory failure with ongoing hypoxemia. Hemodynamically stable. Chest x- ray showing stable infiltrate in the right lung base and the patient remains on IV Zosyn. Coronary artery disease, involving the LAD, with 40 to 50% stenosis, and a patent proximal RCA stent. Severe aortic stenosis with a valve surface area of 0.6 cm, S/P BVP, July 28, 2023, postop day # 6 Right lower lobe consolidation/pneumonia, consider hospital-acquired pneumonia versus aspiration., Stable right lower lobe pulmonary infiltrate on IV Zosyn. chronic hypoxemic and hypercapnic respiratory failure, secondary to COPD. Shingles involving the right upper extremity currently on Valtrex History of hyperlipidemia. History of hypertension. History of chronic low back pain. Obesity. Aortic valve stenosis. History of tracheobronchitis. Prior history of heavy tobacco use. Plan: Blood gas was noted Airvo and currently on 40 L with FiO2 of 50%, will continue our attempts to wean down the FiO2 gradually. Continue bronchodilators with DuoNeb updrafts Continue on Perforomist and Pulmicort nebulized treatments twice a day IV Solu-Medrol 40 mg every 6 hours IV Zosyn Continue IV Lasix 40 mg every 8 hours Negative fluid balance Urine output. Potassium level needs to be replaced. No need for pressors at this point in time Continue Valtrex for shingles of the right upper extremity Keep the patient on KVO IV fluids Incentive spirometer Increase mobility Daily chest x-rays Monitor the fluid balance and the patient is headed towards a negative fluid balance over the next 24 hours Will continue to follow
[2023-08-03 16:02] LABS: Glucose,Whole Blood 177 mg/dL (70-110)
[2023-08-03 20:29] LABS: Glucose,Whole Blood 299 mg/dL (70-110)
--- NOTE | 2023-08-03 23:03 | P.PN ---
Subjective This is a pleasant 62 years old female with past medical history of multiple medical problems including COPD and chronic hypoxic respiratory failure on 5 L oxygen at home and she follows up with Dr. MACARIO for her COPD. Other medical problems including aortic stenosis status post TAVR, coronary artery disease s/p stent and depression and anxiety. Patient presents because of pain in her right shoulder radiating to her right arm and right chest for a few days since , 110/10 in severity, no history of trauma or fall. Pain described as nonspecific with no precipitating or relieving factors. She denies dyspnea she has dry cough. She is using 5 L of oxygen at home. No change in urine or bowel habits. No headache dizziness weakness or numbness. She denies current smoking alcohol or illicit drugs Patient is hemodynamically stable, afebrile She has unremarkable CBC, INR, BMP, liver enzymes, lipase Troponin is elevated 0.04 Chest x-ray is negative for acute process EKG showing atrial tachycardia with short NC interval but no significant ST-T changes. 07/25/2023 Patient is status post cardiac cath yesterday showing mid LAD stenosis 40-50% with patent RCA stent, also shows evidence of severe aortic stenosis, therefore cardiothoracic surgery team were consulted however patient is known not to follow-up on patient, as confirmed with the patient and daughter at bedside today who states that her mom usually go home call Dr. trejo isn't canceled her appointment and she does not follow up Further workup per cardiothoracic surgery team is requested here On admission yesterday she has limited air entry and she was placed on IV Solu- Medrol or acute COPD exacerbation, whiletoday air flow is much better although she has scattered wheezing and she still mildly tachypneic and therefore we consulted pulmonary service currently she is placed on prednisone 5 mg. she is to have mild to moderate right shoulder pain mostly related to her cardiac disease. Some elements of osteoarthritis. her heparin drip was stopped , 07/26/2023 Patient breathing is better, no chest pain today But she still complaining from more severe right shoulder pain. Patient has this pain improved with the steroids but when switched to oral prednisone 5 mg the pain increased today again. She has more rash in her medial arm and forearm and the arm. For short distance with maculopapular rash with possible some vesicles been forming with the pain and tenderness goes with the rash and around it, signs suspicious for shingles. Therefore we are going to start her on [place] for pain management and valacyclovir and asked ID team to reevaluate. Also will put on isolation till cleared. She is hemodynamically stable She is being evaluated by cardiothoracic surgery team as well. 07/27/2023 Patient is awake and alert she denies chest pain but she still complaining from right shoulder pain and neuropathic pain along her rash in the right armpit and the surrounding skin down to the left wrist along the medial side, rash is getting somewhat crusted partially. Breathing is stable However through the day her blood pressure became on the low side She is getting normal saline running at 90 mL/h Cardiology team and planning for balloon valvuloplasty for her severe aortic stenosis She is currently covered with valacyclovir, Lyrica, prednisone 5 mg Oral Lasix and Farxiga 08/01/2023 Patient looks comfortable somewhat but mildly tachypneic, she had aortic valve procedure valvoplasty for her severe aortic stenosis and that improved her blood pressure but patient had decompensated pulmonary function and developed acute COPD exacerbation and fluid overload and currently she is on IV Solu-Medrol 60 mg and IV Lasix 40 mg Also patient placed on broad-spectrum antibiotic with Zosyn besides her Valtrex and Lyrica for her herpes rash of the right upper extremity which is currently improved significantly. Patient still complaining from pain but improved from last week Also patient on Farxiga and metoprolol Other vitals look stable, she is mildly tachycardic but afebrile. WBC is 13 and hemoglobin stable at 8.7. Chest x-ray showing bilateral infiltrate 08/02/2023 Patient is tachypneic today. She still needs 40 L/min of oxygen like yesterday No other new complaints She remains on IV Solu-Medrol, Zosyn and IV Lasix 40 mg every 8 hours Also she is on Valtrex and Lyrica which is improving her herpes infection 08/03/2023 Patient breathing is similar to yesterday, she is only mildly tachypneic at rest, no respiratory distress, she does freely She is still on 40 L oxygen via high flow nasal cannula No other new complaints She remains on IV Lasix 40 mg every 8 hours, IV Solu-Medrol 60 mg and Zosyn. She is currently not on anticoagulation BX showed respiratory alkalosis with elevated pCO2 57 Objective - Vital Signs Vital signs: Vital Signs Temp 98 F 08/03/23 04:00 Pulse 70 08/03/23 11:32 Resp 13 08/03/23 09:00 BP 117/72 08/03/23 09:00 Pulse Ox 96 08/03/23 11:20 FiO2 60 08/03/23 11:20 Intake & Output 08/02/23 08/03/23 08/03/23 18:59 06:59 18:59 Intake Total 1400 320 50 Output Total 1850 1350 300 Balance -450 -1030 -250 Weight 91 kg Intake: IV 200 100 50 Piperacillin-Tazobactam 3 200 100 50 .375 gm In Sodium Chloride 0.9% 100 ml @ 25 mls/hr IVPB Q8HR [facility] Rx# :[id number] Oral 1200 220 Output: Urine 1850 1350 300 Other: Voiding Method Bedside Commode Bedside Commode Bedside Commode - Exam GENERAL: The patient is alert and oriented x3, not in any acute distress. Well developed, well nourished. HEENT: Pupils are round and equally reacting to light. EOMI. No scleral icterus. No conjunctival pallor. Normocephalic, atraumatic. No pharyngeal erythema. No thyromegaly. CARDIOVASCULAR: S1 and S2 present. No murmurs, rubs, or gallops. -PULMONARY: Chest is clear to auscultation, scattered wheezing , no crackles. ABDOMEN: Soft, nontender, nondistended, normoactive bowel sounds. No palpable organomegaly. MUSCULOSKELETAL: No joint swelling or deformity. EXTREMITIES: No cyanosis, clubbing, or pedal edema. NEUROLOGICAL: Gross neurological examination did not reveal any focal deficits. SKIN: No rashes. no petechiae. - Labs CBC & Chem 7: 08/03/23 05:31 08/03/23 05:31 Labs: Abnormal Lab Results - Last 24 Hours (Table) 08/02/23 08/02/23 08/02/23 Range/Units 16:07 20:04 21:13 WBC (3.8-10.6) k/uL RBC (3.80-5.40) m/uL Hgb (11.4-16.0) gm/dL Hct (34.0-46.0) % Neutrophils # (1.3-7.7) k/uL Lymphocytes # (1.0-4.8) k/uL ABG pCO2 (35-45) mmHg ABG pO2 (83-108) mmHg ABG HCO3 (21-25) mmol/L ABG Total CO2 (19-24) mmol/L ABG O2 Saturation (94-97) % Potassium (3.5-5.1) mmol/L Chloride (98-107) mmol/L Carbon Dioxide (22-30) mmol/L BUN (7-17) mg/dL Glucose (74-99) mg/dL POC Glucose (mg/dL) 253 H 206 H 259 H (70-110) mg/dL 08/03/23 08/03/23 08/03/23 Range/Units 05:31 05:31 06:32 WBC 16.6 H (3.8-10.6) k/uL RBC 3.05 L (3.80-5.40) m/uL Hgb 9.4 L (11.4-16.0) gm/dL Hct 30.1 L (34.0-46.0) % Neutrophils # 14.7 H (1.3-7.7) k/uL Lymphocytes # 0.9 L (1.0-4.8) k/uL ABG pCO2 (35-45) mmHg ABG pO2 (83-108) mmHg ABG HCO3 (21-25) mmol/L ABG Total CO2 (19-24) mmol/L ABG O2 Saturation (94-97) % Potassium 3.4 L (3.5-5.1) mmol/L Chloride 92 L (98-107) mmol/L Carbon Dioxide 42 H* (22-30) mmol/L BUN 33 H (7-17) mg/dL Glucose 187 H (74-99) mg/dL POC Glucose (mg/dL) 201 H (70-110) mg/dL 08/03/23 08/03/23 Range/Units 10:00 10:58 WBC (3.8-10.6) k/uL RBC (3.80-5.40) m/uL Hgb (11.4-16.0) gm/dL Hct (34.0-46.0) % Neutrophils # (1.3-7.7) k/uL Lymphocytes # (1.0-4.8) k/uL ABG pCO2 74 H* (35-45) mmHg ABG pO2 57 L* (83-108) mmHg ABG HCO3 47 H* (21-25) mmol/L ABG Total CO2 49 H (19-24) mmol/L ABG O2 Saturation 89.6 L (94-97) % Potassium (3.5-5.1) mmol/L Chloride (98-107) mmol/L Carbon Dioxide (22-30) mmol/L BUN (7-17) mg/dL Glucose (74-99) mg/dL POC Glucose (mg/dL) 209 H (70-110) mg/dL Assessment and Plan Assessment: Right shoulder pain/chest pain with right upper extremity rash along the medial side, shingles severe aortic stenosis, status post aortic valvuloplasty Acute CHF exacerbation. Cannot rule out pneumonia Acute COPD exacerbation. Mildly acute on chronic hypoxic respiratory failure. Resolved Atrial tachycardia with short NC interval Coronary artery disease s/p stent History of arctic stenosis s/p TAVR Obesity with BMI of 36.6 History of depression and anxiety, no acute process. Plan: Start valacyclovir, Lyrica, And ID consult Continue with Zosyn Continue with IV Lasix Continue with IV Solu-Medrol Continue with aspirin Cardiology consult, with plan for possible balloon valvuloplasty cardiothoracic consult patient and olga at bed side were counseled about the importance of follow- up with appointment prednisone 5 mg daily Continue breathing treatment and bronchodilator Labs and medication were reviewed.. Continue same treatment. Continue with symptomatic treatment. Resume home medication. Monitor labs and vitals. DVT and GI prophylaxis. Further recommendations as per clinical course of the patient DVT prophylaxis: Subcutaneous heparin GI Prophylaxis: Pepcid Prognosis is guarded
[2023-08-04 05:28] LABS: African American GFR (CKD) 65 (>60 ml/min/1.73 sqM); Blood Urea Nitrogen 35 mg/dL (7-17); Calcium 8.9 mg/dL (8.4-10.2); Chloride 90 mmol/L (98-107); Glucose 177 mg/dL (74-99); Non-African American GFR(CKD) 56 (>60 ml/min/1.73 sqM); Potassium 3.6 mmol/L (3.5-5.1); Sodium 138 mmol/L (137-145)
[2023-08-04 05:30] LABS: Basophils # (A) 0.1 k/uL (0-0.2); Basophils % (A) 1 %; Eosinophils % (A) 0 %; HCT 31.1 % (34.0-46.0); HGB 9.4 gm/dL (11.4-16.0); Hypochromasia Slight; Lymphocytes % (A) 5 %; MCH 29.7 pg (25.0-35.0); MCHC 30.3 g/dL (31.0-37.0); MCV 98.1 fL (80.0-100.0); Monocytes # (A) 0.9 k/uL (0-1.0); Monocytes % (A) 5 %; Neutrophils # (A) 15.7 k/uL (1.3-7.7); Neutrophils % (A) 88 %; Platelet Count 357 k/uL (150-450); RBC 3.17 m/uL (3.80-5.40); RDW 14.3 % (11.5-15.5)
[2023-08-04 05:35] LABS: Anion Gap 5 mmol/L
[2023-08-04 05:39] LABS: Carbon Dioxide 43 mmol/L (22-30)
[2023-08-04 06:20] LABS: Glucose,Whole Blood 212 mg/dL (70-110)
[2023-08-04] MEDS: POTASSIUM CHLORIDE ER 20 MEQ TAB.ER PO SCH (06:29)
--- NOTE | 2023-08-04 07:32 | XR ---
EXAMINATION TYPE: XR chest 1V portable DATE OF EXAM: 08/04/2023 HISTORY: Shortness of breath. COMPARISON: 08/03/2023 TECHNIQUE: Single view of the chest is submitted. FINDINGS: Demonstrated are scattered senescent parenchymal change. Right lower lobe infiltrate is again noted although demonstrates continued improvement. The heart is stable. Hilar and mediastinal structures are within normal limits. Degenerative changes are seen of the dorsal spine. IMPRESSION: 1. Right lower lobe infiltrate is again noted although demonstrates continued improvement.
[2023-08-04] MEDS: FAMOTIDINE 20 MG/2 ML VIAL IV SCH (08:15)
--- NOTE | 2023-08-04 08:35 | P.PN ---
Subjective Progress Note Date: 08/03/23 Principal diagnosis: Reason for follow-up is right T10 dermatome shingles Patient is a 63-year-old female past medical history significant for COPD coronary artery disease [place] former smoker presenting to the hospital for evaluation of chest pain on the right side of her chest and is also complaining of pain to the right upper arm, patient did develop a rash prompting this consultation and has been diagnosed with shingles. On today's evaluation that is 08/03/2023, the patient continues to be afebrile, the patient is on high-dose nasal cannula oxygen however patient mention breathing comfortably, the Pt denies having any chest pain or worsening cough, the patient denies having any abdominal pain no vomiting or any diarrhea, pain to the right upper extremity rash area has decreased in intensity. Patient white count is slightly up to 16.6, creatinine 0.96 blood culture negative sputum not collected chest x-ray right lower lobe pneumonia Objective - Vital Signs Vital signs: Vital Signs Temp 98 F 08/03/23 04:00 Pulse 70 08/03/23 11:32 Resp 13 08/03/23 09:00 BP 117/72 08/03/23 09:00 Pulse Ox 96 08/03/23 11:20 FiO2 60 08/03/23 11:20 Intake & Output 08/02/23 08/03/23 08/03/23 18:59 06:59 18:59 Intake Total 1400 320 50 Output Total 1850 1350 300 Balance -450 -1030 -250 Weight 91 kg Intake: IV 200 100 50 Piperacillin-Tazobactam 3 200 100 50 .375 gm In Sodium Chloride 0.9% 100 ml @ 25 mls/hr IVPB Q8HR [facility] Rx# :[id number] Oral 1200 220 Output: Urine 1850 1350 300 Other: Voiding Method Bedside Commode Bedside Commode Bedside Commode - Exam GENERAL DESCRIPTION: Middle-aged female lying in bed in no distress RESPIRATORY SYSTEM: Unlabored breathing , decreased breath sounds at bases HEART: S1 S2 regular rate and rhythm , ABDOMEN: Soft , no tenderness EXTREMITIES: Right upper extremity vesicular rash is drying out - Labs CBC & Chem 7: 08/04/23 05:03 08/04/23 05:03 Labs: Abnormal Lab Results - Last 24 Hours (Table) 08/02/23 08/02/23 08/02/23 Range/Units 16:07 20:04 21:13 WBC (3.8-10.6) k/uL RBC (3.80-5.40) m/uL Hgb (11.4-16.0) gm/dL Hct (34.0-46.0) % Neutrophils # (1.3-7.7) k/uL Lymphocytes # (1.0-4.8) k/uL ABG pCO2 (35-45) mmHg ABG pO2 (83-108) mmHg ABG HCO3 (21-25) mmol/L ABG Total CO2 (19-24) mmol/L ABG O2 Saturation (94-97) % Potassium (3.5-5.1) mmol/L Chloride (98-107) mmol/L Carbon Dioxide (22-30) mmol/L BUN (7-17) mg/dL Glucose (74-99) mg/dL POC Glucose (mg/dL) 253 H 206 H 259 H (70-110) mg/dL 08/03/23 08/03/23 08/03/23 Range/Units 05:31 05:31 06:32 WBC 16.6 H (3.8-10.6) k/uL RBC 3.05 L (3.80-5.40) m/uL Hgb 9.4 L (11.4-16.0) gm/dL Hct 30.1 L (34.0-46.0) % Neutrophils # 14.7 H (1.3-7.7) k/uL Lymphocytes # 0.9 L (1.0-4.8) k/uL ABG pCO2 (35-45) mmHg ABG pO2 (83-108) mmHg ABG HCO3 (21-25) mmol/L ABG Total CO2 (19-24) mmol/L ABG O2 Saturation (94-97) % Potassium 3.4 L (3.5-5.1) mmol/L Chloride 92 L (98-107) mmol/L Carbon Dioxide 42 H* (22-30) mmol/L BUN 33 H (7-17) mg/dL Glucose 187 H (74-99) mg/dL POC Glucose (mg/dL) 201 H (70-110) mg/dL 08/03/23 08/03/23 Range/Units 10:00 10:58 WBC (3.8-10.6) k/uL RBC (3.80-5.40) m/uL Hgb (11.4-16.0) gm/dL Hct (34.0-46.0) % Neutrophils # (1.3-7.7) k/uL Lymphocytes # (1.0-4.8) k/uL ABG pCO2 74 H* (35-45) mmHg ABG pO2 57 L* (83-108) mmHg ABG HCO3 47 H* (21-25) mmol/L ABG Total CO2 49 H (19-24) mmol/L ABG O2 Saturation 89.6 L (94-97) % Potassium (3.5-5.1) mmol/L Chloride (98-107) mmol/L Carbon Dioxide (22-30) mmol/L BUN (7-17) mg/dL Glucose (74-99) mg/dL POC Glucose (mg/dL) 209 H (70-110) mg/dL Assessment and Plan (1) Zoster Current Visit: Yes Status: Acute Code(s): B02.9 - ZOSTER WITHOUT COMPLICATIONS SNOMED Code(s): 6977926 (2) Leukocytosis Current Visit: Yes Status: Acute Code(s): D72.829 - ELEVATED WHITE BLOOD CELL COUNT, UNSPECIFIED SNOMED Code(s): 981952861 (3) Pneumonia Current Visit: No Status: Acute Code(s): J18.9 - PNEUMONIA, UNSPECIFIED ORGANISM SNOMED Code(s): 099791617 Plan: 1patient presented to hospital with pain to the right side of the chest and right upper extremity not developing a rash which is a following T1 dermatome likely herpes zoster with no evidence of any secondary cellulitis 2-patient rash to the right upper arm decreased in intensity no evidence of cellulitis, patient to continue with Valtrex 1 g every 8 hours to finish 7-day course of therapy along with Lyrica for postherpetic neuralgia, 3-leukocytosis with a right perihilar infiltrate concerning for possible noso comial pneumonia, the patient is afebrile noticed to have slight worsening of the white count admitted to be monitored closely try to obtain a sputum check inflammatory markers Dictation was produced using [employer] dictation software. please excuse any grammatical, word or spelling errors. Time with Patient: Less than 30
[2023-08-04 11:43] LABS: Glucose,Whole Blood 192 mg/dL (70-110)
[2023-08-04] MEDS: methylPREDNISolone SOD SUCCI 40 MG/ML 1 ML VIAL IV SCH (12:00)
--- NOTE | 2023-08-04 13:34 | P.PN ---
Subjective Progress Note Date: 08/04/23 63-year-old female well-known to our service. The patient has a history of chronic hypoxemic respiratory failure secondary to COPD, and is chronically oxygen dependent. The patient presented to the emergency room, on July 23, complaining of chest pain. The pain apparently was on the right side of her chest, and radiated into her right arm. The pain started on the prior . The patient does have a history of coronary disease, and has had stents placed in the last year. In addition, she admits to chronic shortness of breath, secondary to her severe COPD. The patient did go to the catheterization laboratory on July 23, and was found to have a 40 to 50% stenosis, in the mid LAD, with a patent proximal RCA stent. In addition, on echocardiogram, the patient was found to have severe aortic stenosis, with a valve surface area of 1.6 cm, and a gradient across the aortic valve, of 100 mmHg. The patient underwent a valvuloplasty by cardiology. On today's evaluation of 07/31/2023, the patient is being seen for a follow-up. The patient is calm and comfortable. She is still having oxygen saturations on high flow oxygen and the patient will be placed on Airvo to maintain an oxygen saturation above 90%. The patient has advanced COPD and the patient is typically on oxygen at 5 L at baseline. The patient is also developed a right lower lobe consolidation consistent with pneumonia and the patient remains on IV Zosyn. Earlier, the patient was not nonabrasive fullface mask and the patient will be switched to Airvo. IV fluids are currently at KVO. The procalcitonin level is at 0.14. Hemodynamically stable and the patient is on no pressors. White cell count at 13.4 with a hemoglobin 9.2 and a platelet count of 254. BUN is at 17 with a creatinine of 0.8 and a sodium levels at 137. Potassium level is at 3.8. The patient is receiving Lasix 40 mg p.o. daily. The patient is on prednisone 5 mg p.o. daily. The patient also has developed shingles in the right upper extremity and the patient is currently on Valtrex. Remains on DuoNeb updrafts. Remains on a combination of Perforomist and Pulmicort updrafts twice a day. As mentioned, chest x-ray showing a right lower lobe consolidation. On today's evaluation of 08/01/2023, the patient is essentially the same as yester day. No significant changes in terms of her oxygenation. The patient remains on Airvo 40 L with FiO2 of 50%. No fever. No chills. Using incentive spirometer. No chest pain. No signs of any CO2 narcosis or altered mentation. Blood work from today shows a WBC count of 13 with a hemoglobin 8.7 and a platelet count of 272. Sodium is at 137 with a potassium level of 3.2, bicarb is at 39 with a BUN of 15 and a creatinine of 0.7. Fluid balance over the past 24 hours is -2.6 L and the patient is headed towards another 2.5 L negative in terms of her fluid balance over the next 24 hours. The patient remains on bronchodilators. The patient remains on IV Solu-Medrol 40 mg every 6 hours. The patient remains on IV Zosyn. The patient remains on Lasix 40 mg IV every 8 hours. A repeat chest x-ray was also done today and the findings are essentially showing background COPD with some improvement in the residual coarse infiltration in the right mid and right lower lobe area. 08/22/2023, the patient remains on Airvo 40 L with FiO2 of 50%. No major improvement in oxygenation and the patient continues to desaturate once FiO2 is dropped down to 40%. Nevertheless, she feels, comfortable without having any significant shortness of breath at rest. No significant sputum production. No fever or chills. She continues to make excellent urine output. Fluid balance has been negative another 2.5 L over the past 24 hours and the patient is being diuresed with Lasix 40 mg IV every 8 hours. The patient remains on DuoNeb updrafts. The patient remains on Solu-Medrol 40 mg every 6 hours. Breath sounds are quite diminished and there is no significant bronchospasm or wheezing. Repeat chest x-ray was done today and the patient was found to have limited patchy infiltrates in the right midlung in the right lower lung which continues to improve on repeated chest x-rays. WBC count of 12.4 with a hemoglobin 9.2 and a platelet count of 220. BUN is 22 with a creatinine of 0.8 and a sodium levels of 138 with a potassium level of 3.3. K level is being replaced. She remains on IV Zosyn. She remains on oral Valtrex. Shingles is being treated and the skin lesions are all stable. 08/03/2023, the patient feels well. She denies having any specific complaints. She is feeling better in terms of her breathing. Unfortunately, no significant improvement in the patient's oxygenation. The patient remains on 40 L with FiO2 of 50%.Okay make sure your white cell count is coming down okay chest x-ray findings are essentially stable with cardiomegaly and a stable right lower lobe pulmonary infiltrates. Fluid balance remains negative and the patient is in negative fluid balance of 1.4 L over the past 24 hours. She remains on Lasix 40 mg every 8 hours. She remains on Zosyn. She remains on IV Solu-Medrol 40 mg every 6 hours. She remains on bronchodilators. The patient has no significant cough or sputum production. No major edema in lower extremities. Repeat echocardiogram following the valvuloplasty showed improvement in the overall gradient through the aortic valve and gradients dropped from 75 down to 38. Continues to have mild to moderate mitral regurgitation. White cell count is 16.6 with a hemoglobin 9.4 and a platelet count of 346. Serum bicarb is at 42 with a sodium level of 139 and a potassium level of 3.4. BUN is at 33 with a creatinine of 0.96. Cardiac rhythm is sinus. Blood gas was done and it continues to show hypoxemia with a pO2 of 57. She has well compensated chronic hypercapnic respiratory failure. 08/04/2023, the patient remains on 40 L with an FiO2 of 50%, Airvo system. Noted the patient is diuresing adequately and the patient has been negative fluid balance. Repeat chest x-ray shows an area of consolidation of the right lower lobe. However the original CAT scan of the chest was done at time of admission showed no significant consolidation of the right lung base. I am going to repeat a CT angiogram to further explain the ongoing hypoxemia. The patient is post aortic valve valvuloplasty. The patient remains on Zosyn.Denies having any other complaints. The white cell count of 18 with a hemoglobin 9.4, BUN is at 35 with a creatinine of 1.07 and sodium levels of 138. Awake and alert and communicating. Remains on DuoNeb updrafts. Remains on IV Solu-Medrol 40 mg every 6 hours. Remains on Lasix 40 mg IV every 8 hours. Remains on IV Zosyn. Objective - Vital Signs Vital signs: Vital Signs Temp 98.1 F 08/04/23 07:00 Pulse 88 08/04/23 08:58 Resp 16 08/04/23 07:00 BP 137/74 08/04/23 07:00 Pulse Ox 92 L 08/04/23 08:35 FiO2 46 08/04/23 08:35 Intake & Output 08/03/23 08/04/23 08/04/23 18:59 06:59 18:59 Intake Total 150 375 240 Output Total 1999 2350 0 Balance -1849 -1974 240 Weight 92.1 kg Intake: IV 150 125 Piperacillin-Tazobactam 3 150 125 .375 gm In Sodium Chloride 0.9% 100 ml @ 25 mls/hr IVPB Q8HR [facility] Rx# :[id number] Oral 240 Tube Feeding 250 Output: Urine 1999 2350 0 Other: Voiding Method Bedside Commode Bedside Commode # Bowel Movements 1 0 - Exam No acute distress, oriented 3. The patient is currently on Airvo at 40 L and FiO2 of 50%. She has obvious cushingoid features and she is morbidly obese with a BMI of 36.7. HEENT examination is grossly unremarkable. Mucous membranes are moist. No oral lesions. Neck supple. Full range of motion. No adenopathy thyromegaly or neck vein distention. Cardiovascular examination reveals regular rhythm rate. S1-S2 normal. No S3 or S4. Harsh systolic ejection murmur over the left apex and left lateral sternal border. Heart sounds are distant. Lungs reveal diminished bilateral breath sounds. Scattered rhonchi and wheezes are noted. No crackles. Breath sounds equal bilaterally Abdominal exam revealed normal bowel sounds. The abdomen was soft, non-tender, and without masses, organomegaly, or appreciable enlargement of the abdominal aorta. Extremities are intact. No cyanosis clubbing or edema. Skin is without rash or lesion. Shingles with right lesions in the right upper extremity. No open vesicles at this point in time. Neurologically, the patient is awake and alert and the patient does not have any focal neurological deficit. Cranial nerves are essentially intact. - Labs CBC & Chem 7: 08/04/23 05:03 08/04/23 05:03 Labs: Abnormal Lab Results - Last 24 Hours (Table) 08/03/23 08/03/23 08/03/23 Range/Units 10:00 10:58 16:00 WBC (3.8-10.6) k/uL RBC (3.80-5.40) m/uL Hgb (11.4-16.0) gm/dL Hct (34.0-46.0) % MCHC (31.0-37.0) g/dL Neutrophils # (1.3-7.7) k/uL ABG pCO2 74 H* (35-45) mmHg ABG pO2 57 L* (83-108) mmHg ABG HCO3 47 H* (21-25) mmol/L ABG Total CO2 49 H (19-24) mmol/L ABG O2 Saturation 89.6 L (94-97) % Chloride (98-107) mmol/L Carbon Dioxide (22-30) mmol/L BUN (7-17) mg/dL Creatinine (0.52-1.04) mg/dL Glucose (74-99) mg/dL POC Glucose (mg/dL) 209 H 177 H (70-110) mg/dL 08/03/23 08/04/23 08/04/23 Range/Units 20:28 05:03 05:03 WBC 18.0 H (3.8-10.6) k/uL RBC 3.17 L (3.80-5.40) m/uL Hgb 9.4 L (11.4-16.0) gm/dL Hct 31.1 L (34.0-46.0) % MCHC 30.3 L (31.0-37.0) g/dL Neutrophils # 15.7 H (1.3-7.7) k/uL ABG pCO2 (35-45) mmHg ABG pO2 (83-108) mmHg ABG HCO3 (21-25) mmol/L ABG Total CO2 (19-24) mmol/L ABG O2 Saturation (94-97) % Chloride 90 L (98-107) mmol/L Carbon Dioxide 43 H* (22-30) mmol/L BUN 35 H (7-17) mg/dL Creatinine 1.07 H (0.52-1.04) mg/dL Glucose 177 H (74-99) mg/dL POC Glucose (mg/dL) 299 H (70-110) mg/dL 08/04/23 Range/Units 06:18 WBC (3.8-10.6) k/uL RBC (3.80-5.40) m/uL Hgb (11.4-16.0) gm/dL Hct (34.0-46.0) % MCHC (31.0-37.0) g/dL Neutrophils # (1.3-7.7) k/uL ABG pCO2 (35-45) mmHg ABG pO2 (83-108) mmHg ABG HCO3 (21-25) mmol/L ABG Total CO2 (19-24) mmol/L ABG O2 Saturation (94-97) % Chloride (98-107) mmol/L Carbon Dioxide (22-30) mmol/L BUN (7-17) mg/dL Creatinine (0.52-1.04) mg/dL Glucose (74-99) mg/dL POC Glucose (mg/dL) 212 H (70-110) mg/dL Assessment and Plan Plan: Acute on chronic hypoxic respiratory failure. Typically the patient is on 5 L of oxygen by nasal cannula. The patient is currently on Airvo 40 L with an FiO2 of 50%. Continues to be treated for COPD exacerbation and CHF. The patient is post valvuloplasty of the aortic valve. There is improvement in the gradients postprocedure. Continues to diurese. Unfortunately, she continues to be hypoxic and the blood gas from today shows a stable chronic hypercapnic respiratory failure with ongoing hypoxemia. Hemodynamically stable. Chest x- ray showing stable infiltrate in the right lung base and the patient remains on IV Zosyn. Essentially unchanged compared to yesterday despite aggressive diuresis and negative fluid balance. Chest x-ray findings remains unchanged. Coronary artery disease, involving the LAD, with 40 to 50% stenosis, and a patent proximal RCA stent. Severe aortic stenosis with a valve surface area of 0.6 cm, S/P BVP, July 28, 2023, postop day # 7 Right lower lobe consolidation/pneumonia, consider hospital-acquired pneumonia versus aspiration., Stable right lower lobe pulmonary infiltrate on IV Zosyn. chronic hypoxemic and hypercapnic respiratory failure, secondary to COPD. Shingles involving the right upper extremity currently on Valtrex History of hyperlipidemia. History of hypertension. History of chronic low back pain. Obesity. Aortic valve stenosis. History of tracheobronchitis. Prior history of heavy tobacco use. Plan: Blood gas was noted and the patient continues to have hypoxemia. Blood gas was done yesterday. Airvo and currently on 40 L with FiO2 of 50%, will continue our attempts to wean down the FiO2 gradually. Unable to wean down FiO2 any further. Continue bronchodilators with DuoNeb updrafts Continue on Perforomist and Pulmicort nebulized treatments twice a day IV Solu-Medrol 40 mg every 6 hours IV Zosyn Continue IV Lasix 40 mg every 8 hours Negative fluid balance Proceed with a CAT scan of the chest utilizing the CTA protocol. Continue Valtrex for shingles of the right upper extremity Keep the patient on KVO IV fluids Incentive spirometer Increase mobility Daily chest x-rays May be able to transfer the patient to him to the emergency unit at a later stage as long as oxygenation remained stable. Will continue to follow
--- NOTE | 2023-08-04 15:10 | P.PN ---
Subjective Progress Note Date: 08/04/23 Principal diagnosis: Reason for follow-up is right T10 dermatome shingles Patient is a 63-year-old female past medical history significant for COPD coronary artery disease [place] former smoker presenting to the hospital for evaluation of chest pain on the right side of her chest and is also complaining of pain to the right upper arm, patient did develop a rash prompting this consultation and has been diagnosed with shingles. On today's evaluation that is 08/04/2023, Patient is afebrile patient is currently on high flow nasal cannula oxygen 40% FiO2 and denies any worsening shortness of breath, the patient denies any chest pain or any worsening cough, the patient denies any nausea vomiting did not have any abdominal pain and no diarrhea, pain to the right upper extremity has decreased in intensity. Patient white count is up to 18,000, creatinine 1.07 Objective - Vital Signs Vital signs: Vital Signs Temp 98.2 F 08/04/23 12:00 Pulse 86 08/04/23 13:00 Resp 20 08/04/23 13:00 BP 129/77 08/04/23 12:00 Pulse Ox 89 L 08/04/23 13:00 FiO2 50 08/04/23 12:00 Intake & Output 08/03/23 08/04/23 08/04/23 18:59 06:59 18:59 Intake Total 150 375 390 Output Total 1999 2349 700 Balance -1849 Weight 92.1 kg Intake: IV 150 125 100 Piperacillin-Tazobactam 3 150 125 100 .375 gm In Sodium Chloride 0.9% 100 ml @ 25 mls/hr IVPB Q8HR [facility] Rx# :[id number] Intake, IV Titration 50 Amount Sodium Chloride 0.9% 1, 40 000 ml @ 0 mls/hr IV .[facility] Rx#:[id number] Sodium Chloride 0.9% 1, 10 000 ml @ 0 mls/hr IV .[facility] Rx#:[id number] Oral 240 Tube Feeding 250 Output: Urine 19990 700 Other: Voiding Method Bedside Commode Bedside Commode Bedside Commode # Voids 1 # Bowel Movements 1 0 1 - Exam GENERAL DESCRIPTION: Middle-aged female lying in bed in no distress RESPIRATORY SYSTEM: Unlabored breathing , decreased breath sounds at bases HEART: S1 S2 regular rate and rhythm , ABDOMEN: Soft , no tenderness EXTREMITIES: Right upper extremity vesicular rash is drying out - Labs CBC & Chem 7: 08/04/23 05:03 08/04/23 05:03 Labs: Abnormal Lab Results - Last 24 Hours (Table) 08/03/23 08/03/23 08/04/23 Range/Units 16:00 20:28 05:03 WBC 18.0 H (3.8-10.6) k/uL RBC 3.17 L (3.80-5.40) m/uL Hgb 9.4 L (11.4-16.0) gm/dL Hct 31.1 L (34.0-46.0) % MCHC 30.3 L (31.0-37.0) g/dL Neutrophils # 15.7 H (1.3-7.7) k/uL Chloride (98-107) mmol/L Carbon Dioxide (22-30) mmol/L BUN (7-17) mg/dL Creatinine (0.52-1.04) mg/dL Glucose (74-99) mg/dL POC Glucose (mg/dL) 177 H 299 H (70-110) mg/dL 08/04/23 08/04/23 08/04/23 Range/Units 05:03 06:18 11:40 WBC (3.8-10.6) k/uL RBC (3.80-5.40) m/uL Hgb (11.4-16.0) gm/dL Hct (34.0-46.0) % MCHC (31.0-37.0) g/dL Neutrophils # (1.3-7.7) k/uL Chloride 90 L (98-107) mmol/L Carbon Dioxide 43 H* (22-30) mmol/L BUN 35 H (7-17) mg/dL Creatinine 1.07 H (0.52-1.04) mg/dL Glucose 177 H (74-99) mg/dL POC Glucose (mg/dL) 212 H 192 H (70-110) mg/dL Assessment and Plan (1) Zoster Current Visit: Yes Status: Acute Code(s): B02.9 - ZOSTER WITHOUT COMPLICATIONS SNOMED Code(s): 2773498 (2) Leukocytosis Current Visit: Yes Status: Acute Code(s): D72.829 - ELEVATED WHITE BLOOD CELL COUNT, UNSPECIFIED SNOMED Code(s): 385710207 (3) Pneumonia Current Visit: No Status: Acute Code(s): J18.9 - PNEUMONIA, UNSPECIFIED ORGANISM SNOMED Code(s): 132081351 Plan: 1patient presented to hospital with pain to the right side of the chest and right upper extremity not developing a rash which is a following T1 dermatome likely herpes zoster with no evidence of any secondary cellulitis 2-patient rash to the right upper arm decreased in intensity no evidence of cellulitis, patient to continue with Valtrex 1 g every 8 hours to finish 7-day course of therapy along with Lyrica for postherpetic neuralgia, 3-leukocytosis with a right perihilar infiltrate concerning for possible nosocomial pneumonia, the patient is afebrile however worsening white count could be related to steroids versus oropharyngeal candidiasis we will add nystatin swish and swallow continue Zosyn and monitor clinical course closely Dictation was produced using [employer]* dictation software. please excuse any grammatical, word or spelling errors. Time with Patient: Less than 30
--- NOTE | 2023-08-04 15:29 | CDI ---
Documentation Clarification Form Date: 08/04/2023 02:52:40 PM From: Osiris Marroquin RN CCDS Phone: [phone] Admit Date: 07/24/2023 06:45:00 AM Patient Name: Blanka Porras Visit Number: [id number] Discharge Date: ATTENTION: The Clinical Documentation Specialists (CDI) and [facility] Coding Staff appreciate your assistance in clarifying documentation. Please respond to the clarification below the line at the bottom and electronically sign. The CDI & [facility] Coding staff will review the response and follow-up if needed. Please note: Queries are made part of the Legal Health Record. If you have any questions, please contact the author of this message via ITS. Dr. Elizabeth E Sheet Your patient has the documented diagnosis of Acute CHF exacerbation, documented Medicine note, 07/31. Additional information regarding the ischemic cardiomyopathy is requested. History/Risk Factors: 62-year-old female presents to the ED with pain in her right shoulder radiating to her right arm and right chest for a few days since 01/31 in severity. Medical history: CAD, Angina, COPD, Aortic valve stenosis and home oxygen at 5L nc atc. H&P, 07/23. Clinical Indicators: VSS, 07/31: B/P 119/72, HR 102, RR 18, SpO2 90% High Flow Cannula Echocardiogram Results, 07/24: LV EF 60-65% moderately increased left ventricular wall thickness Critical aortic stenosis. Trace mitral regurgitation. Moderately dilated ascending aorta. CXR, 07/31: Overall improvement with residual coarse infiltrate seen right mid and lower lung zones. CXR, 08/03 Right lower lobe infiltrate is again noted although demonstrates continued improvement Treatment: 07/23 07/30 Lasix 60mg po; 07/28 Lasix 60mg IV x 1; 07/29 Lasix 60mg x 1; 07/31 Lasix 40mg IV Q8H; 07/23 07/31 Toprol XL 25mg po bid; 07/31 Toprol XL 25mg po tid 07/23 Lisinopril 10mg po x 1; 07/24 07/26 Lisinopril 5mg po daily. In your professional opinion, can you please clarify CHF type if known? [ x ] Acute on Chronic Diastolic Heart Failure (preserved EF) [ ] Other, please specify [ ] Unable to determine (Template Last Revised: May 2020) MTDD
[2023-08-04 15:55] LABS: Glucose,Whole Blood 336 mg/dL (70-110)
[2023-08-04] MEDS: NYSTATIN 100,000 UNIT/ML SUSP 500,000 UNIT/5 ML CUP PO SCH (18:14)
[2023-08-04 20:15] LABS: Glucose,Whole Blood 143 mg/dL (70-110)
--- NOTE | 2023-08-05 00:15 | P.PN ---
Subjective This is a pleasant 62 years old female with past medical history of multiple medical problems including COPD and chronic hypoxic respiratory failure on 5 L oxygen at home and she follows up with Dr. MACARIO for her COPD. Other medical problems including aortic stenosis status post TAVR, coronary artery disease s/p stent and depression and anxiety. Patient presents because of pain in her right shoulder radiating to her right arm and right chest for a few days since , 110/10 in severity, no history of trauma or fall. Pain described as nonspecific with no precipitating or relieving factors. She denies dyspnea she has dry cough. She is using 5 L of oxygen at home. No change in urine or bowel habits. No headache dizziness weakness or numbness. She denies current smoking alcohol or illicit drugs Patient is hemodynamically stable, afebrile She has unremarkable CBC, INR, BMP, liver enzymes, lipase Troponin is elevated 0.04 Chest x-ray is negative for acute process EKG showing atrial tachycardia with short [place] interval but no significant ST-T changes. 07/25/2023 Patient is status post cardiac cath yesterday showing mid LAD stenosis 40-50% with patent RCA stent, also shows evidence of severe aortic stenosis, therefore cardiothoracic surgery team were consulted however patient is known not to follow-up on patient, as confirmed with the patient and daughter at bedside today who states that her mom usually go home call Dr. trejo isn't canceled her appointment and she does not follow up Further workup per cardiothoracic surgery team is requested here On admission yesterday she has limited air entry and she was placed on IV Solu- Medrol or acute COPD exacerbation, whiletoday air flow is much better although she has scattered wheezing and she still mildly tachypneic and therefore we consulted pulmonary service currently she is placed on prednisone 5 mg. she is to have mild to moderate right shoulder pain mostly related to her cardiac disease. Some elements of osteoarthritis. her heparin drip was stopped , 07/26/2023 Patient breathing is better, no chest pain today But she still complaining from more severe right shoulder pain. Patient has this pain improved with the steroids but when switched to oral prednisone 5 mg the pain increased today again. She has more rash in her medial arm and forearm and the arm. For short distance with maculopapular rash with possible some vesicles been forming with the pain and tenderness goes with the rash and around it, signs suspicious for shingles. Therefore we are going to start her on Pool for pain management and valacyclovir and asked ID team to reevaluate. Also will put on isolation till cleared. She is hemodynamically stable She is being evaluated by cardiothoracic surgery team as well. 07/27/2023 Patient is awake and alert she denies chest pain but she still complaining from right shoulder pain and neuropathic pain along her rash in the right armpit and the surrounding skin down to the left wrist along the medial side, rash is getting somewhat crusted partially. Breathing is stable However through the day her blood pressure became on the low side She is getting normal saline running at 90 mL/h Cardiology team and planning for balloon valvuloplasty for her severe aortic stenosis She is currently covered with valacyclovir, Lyrica, prednisone 5 mg Oral Lasix and Farxiga 08/01/2023 Patient looks comfortable somewhat but mildly tachypneic, she had aortic valve procedure valvoplasty for her severe aortic stenosis and that improved her blood pressure but patient had decompensated pulmonary function and developed acute COPD exacerbation and fluid overload and currently she is on IV Solu-Medrol 60 mg and IV Lasix 40 mg Also patient placed on broad-spectrum antibiotic with Zosyn besides her Valtrex and Lyrica for her herpes rash of the right upper extremity which is currently improved significantly. Patient still complaining from pain but improved from last week Also patient on Farxiga and metoprolol Other vitals look stable, she is mildly tachycardic but afebrile. WBC is 13 and hemoglobin stable at 8.7. Chest x-ray showing bilateral infiltrate 08/02/2023 Patient is tachypneic today. She still needs 40 L/min of oxygen like yesterday No other new complaints She remains on IV Solu-Medrol, Zosyn and IV Lasix 40 mg every 8 hours Also she is on Valtrex and Lyrica which is improving her herpes infection 08/03/2023 Patient breathing is similar to yesterday, she is only mildly tachypneic at rest, no respiratory distress, she does freely She is still on 40 L oxygen via high flow nasal cannula No other new complaints She remains on IV Lasix 40 mg every 8 hours, IV Solu-Medrol 60 mg and Zosyn. She is currently not on anticoagulation BX showed respiratory alkalosis with elevated pCO2 57 08/04/2023 Patient remains in the ICU She is still on 40 L oxygen She is still on IV Lasix, IV Solu-Medrol and Zosyn No chest pain no new complaint Objective - Vital Signs Vital signs: Vital Signs Temp 98.2 F 08/04/23 12:00 Pulse 86 08/04/23 13:00 Resp 20 08/04/23 13:00 BP 129/77 08/04/23 12:00 Pulse Ox 89 L 08/04/23 13:00 FiO2 50 08/04/23 12:00 Intake & Output 08/03/23 08/04/23 08/04/23 18:59 06:59 18:59 Intake Total 150 375 390 Output Total 1999 2350 700 Balance -1849 Weight 92.1 kg Intake: IV 150 125 100 Piperacillin-Tazobactam 3 150 125 100 .375 gm In Sodium Chloride 0.9% 100 ml @ 25 mls/hr IVPB Q8HR [facility] Rx# :[id number] Intake, IV Titration 50 Amount Sodium Chloride 0.9% 1, 40 000 ml @ 0 mls/hr IV .STK -MED ONE Rx#:[id number] Sodium Chloride 0.9% 1, 10 000 ml @ 0 mls/hr IV .STK -MED ONE Rx#:[id number] Oral 240 Tube Feeding 250 Output: Urine 19990 700 Other: Voiding Method Bedside Commode Bedside Commode Bedside Commode # Voids 1 # Bowel Movements 1 0 1 - Exam GENERAL: The patient is alert and oriented x3, not in any acute distress. Well developed, well nourished. HEENT: Pupils are round and equally reacting to light. EOMI. No scleral icterus. No conjunctival pallor. Normocephalic, atraumatic. No pharyngeal erythema. No thyromegaly. CARDIOVASCULAR: S1 and S2 present. No murmurs, rubs, or gallops. -PULMONARY: Chest is clear to auscultation, scattered wheezing , no crackles. ABDOMEN: Soft, nontender, nondistended, normoactive bowel sounds. No palpable organomegaly. MUSCULOSKELETAL: No joint swelling or deformity. EXTREMITIES: No cyanosis, clubbing, or pedal edema. NEUROLOGICAL: Gross neurological examination did not reveal any focal deficits. SKIN: No rashes. no petechiae. - Labs CBC & Chem 7: 08/04/23 05:03 08/04/23 05:03 Labs: Abnormal Lab Results - Last 24 Hours (Table) 08/03/23 08/03/23 08/04/23 Range/Units 16:00 20:28 05:03 WBC 18.0 H (3.8-10.6) k/uL RBC 3.17 L (3.80-5.40) m/uL Hgb 9.4 L (11.4-16.0) gm/dL Hct 31.1 L (34.0-46.0) % MCHC 30.3 L (31.0-37.0) g/dL Neutrophils # 15.7 H (1.3-7.7) k/uL Chloride (98-107) mmol/L Carbon Dioxide (22-30) mmol/L BUN (7-17) mg/dL Creatinine (0.52-1.04) mg/dL Glucose (74-99) mg/dL POC Glucose (mg/dL) 177 H 299 H (70-110) mg/dL 08/04/23 08/04/23 08/04/23 Range/Units 05:03 06:18 11:40 WBC (3.8-10.6) k/uL RBC (3.80-5.40) m/uL Hgb (11.4-16.0) gm/dL Hct (34.0-46.0) % MCHC (31.0-37.0) g/dL Neutrophils # (1.3-7.7) k/uL Chloride 90 L (98-107) mmol/L Carbon Dioxide 43 H* (22-30) mmol/L BUN 35 H (7-17) mg/dL Creatinine 1.07 H (0.52-1.04) mg/dL Glucose 177 H (74-99) mg/dL POC Glucose (mg/dL) 212 H 192 H (70-110) mg/dL Assessment and Plan Assessment: Right shoulder pain/chest pain with right upper extremity rash along the medial side, shingles severe aortic stenosis, status post aortic valvuloplasty Acute CHF exacerbation. Cannot rule out pneumonia Acute COPD exacerbation. Mildly acute on chronic hypoxic respiratory failure. Resolved Atrial tachycardia with short WY interval Coronary artery disease s/p stent History of arctic stenosis s/p TAVR Obesity with BMI of 36.6 History of depression and anxiety, no acute process. Plan: Start valacyclovir, Lyrica, And ID consult Continue with Zosyn Continue with IV Lasix Continue with IV Solu-Medrol Continue with aspirin Cardiology consult, with plan for possible balloon valvuloplasty cardiothoracic consult patient and olga at bed side were counseled about the importance of follow- up with appointment prednisone 5 mg daily Continue breathing treatment and bronchodilator Labs and medication were reviewed.. Continue same treatment. Continue with symptomatic treatment. Resume home medication. Monitor labs and vitals. DVT and GI prophylaxis. Further recommendations as per clinical course of the p atient DVT prophylaxis: Subcutaneous heparin GI Prophylaxis: Pepcid Prognosis is guarded
[2023-08-05 05:24] LABS: Basophils # (A) 0.1 k/uL (0-0.2); Basophils % (A) 1 %; Eosinophils % (A) 0 %; HGB 9.6 gm/dL (11.4-16.0); Hypochromasia Slight; Lymphocytes % (A) 5 %; MCH 30.5 pg (25.0-35.0); MCV 98.2 fL (80.0-100.0); Mean Platelet Volume 7.5; Monocytes # (A) 0.7 k/uL (0-1.0); Monocytes % (A) 4 %; Neutrophils # (A) 16.7 k/uL (1.3-7.7); Neutrophils % (A) 89 %; Platelet Count 367 k/uL (150-450); RBC 3.16 m/uL (3.80-5.40); RDW 14.5 % (11.5-15.5); WBC 18.8 k/uL (3.8-10.6)
[2023-08-05 05:42] LABS: African American GFR (CKD) 69 (>60 ml/min/1.73 sqM); Blood Urea Nitrogen 43 mg/dL (7-17); Calcium 8.9 mg/dL (8.4-10.2); Chloride 89 mmol/L (98-107); Glucose 206 mg/dL (74-99); Non-African American GFR(CKD) 59 (>60 ml/min/1.73 sqM); Potassium 3.5 mmol/L (3.5-5.1); Sodium 139 mmol/L (137-145)
[2023-08-05 05:48] LABS: Anion Gap 9 mmol/L
[2023-08-05 05:53] LABS: Carbon Dioxide 41 mmol/L (22-30)
[2023-08-05] MEDS ORDERED: Potassium Replacement Protocol 1 EACH MISC MISCELLANE PRN (06:08)
[2023-08-05 06:46] LABS: Glucose,Whole Blood 235 mg/dL (70-110)
[2023-08-05] MEDS ORDERED: POTASSIUM CHLORIDE ER 20 MEQ TAB.ER PO SCH (07:00)
[2023-08-05] MEDS: POTASSIUM CHLORIDE ER 20 MEQ TAB.ER PO SCH (08:16)
[2023-08-05 10:53] LABS: Glucose,Whole Blood 225 mg/dL (70-110)
--- NOTE | 2023-08-05 11:31 | XR ---
EXAM: XR chest 1V portable CLINICAL INDICATION:Female, 63 years old with history of shortness of breath; [facility] COMPARISON: 08/04/2023 and older TECHNIQUE: Chest single view. FINDINGS: Lines/tubes/devices: EKG leads overlie the chest. No indwelling lines are seen. Cardiomediastinum: Cardiac silhouette appears stable, heart is mildly enlarged Stable mediastinal silhouette. Vasculature: No increased pulmonary vasculature. Lungs/pleura: Scattered chronic senescent changes again noted. Right basilar infiltrate with slight continued impro vement. Bones/soft tissues: Bony thorax appears grossly intact as seen. IMPRESSION: Right basilar infiltrate with slight continued improvement.
--- NOTE | 2023-08-05 14:09 | P.PN ---
Subjective Progress Note Date: 08/05/23 63-year-old female well-known to our service. The patient has a history of chronic hypoxemic respiratory failure secondary to COPD, and is chronically oxygen dependent. The patient presented to the emergency room, on July 23, complaining of chest pain. The pain apparently was on the right side of her chest, and radiated into her right arm. The pain started on the prior . The patient does have a history of coronary disease, and has had stents placed in the last year. In addition, she admits to chronic shortness of breath, secondary to her severe COPD. The patient did go to the catheterization laboratory on July 23, and was found to have a 40 to 50% stenosis, in the mid LAD, with a patent proximal RCA stent. In addition, on echocardiogram, the patient was found to have severe aortic stenosis, with a valve surface area of 1.6 cm, and a gradient across the aortic valve, of 100 mmHg. The patient underwent a valvuloplasty by cardiology. On today's evaluation of 07/31/2023, the patient is being seen for a follow-up. The patient is calm and comfortable. She is still having oxygen saturations on high flow oxygen and the patient will be placed on Airvo to maintain an oxygen saturation above 90%. The patient has advanced COPD and the patient is typically on oxygen at 5 L at baseline. The patient is also developed a right lower lobe consolidation consistent with pneumonia and the patient remains on IV Zosyn. Earlier, the patient was not nonabrasive fullface mask and the patient will be switched to Airvo. IV fluids are currently at KVO. The procalcitonin level is at 0.14. Hemodynamically stable and the patient is on no pressors. White cell count at 13.4 with a hemoglobin 9.2 and a platelet count of 254. BUN is at 17 with a creatinine of 0.8 and a sodium levels at 137. Potassium level is at 3.8. The patient is receiving Lasix 40 mg p.o. daily. The patient is on prednisone 5 mg p.o. daily. The patient also has developed shingles in the right upper extremity and the patient is currently on Valtrex. Remains on DuoNeb updrafts. Remains on a combination of Perforomist and Pulmicort updrafts twice a day. As mentioned, chest x-ray showing a right lower lobe consolidation. On today's evaluation of 08/01/2023, the patient is essentially the same as yester day. No significant changes in terms of her oxygenation. The patient remains on Airvo 40 L with FiO2 of 50%. No fever. No chills. Using incentive spirometer. No chest pain. No signs of any CO2 narcosis or altered mentation. Blood work from today shows a WBC count of 13 with a hemoglobin 8.7 and a platelet count of 272. Sodium is at 137 with a potassium level of 3.2, bicarb is at 39 with a BUN of 15 and a creatinine of 0.7. Fluid balance over the past 24 hours is -2.6 L and the patient is headed towards another 2.5 L negative in terms of her fluid balance over the next 24 hours. The patient remains on bronchodilators. The patient remains on IV Solu-Medrol 40 mg every 6 hours. The patient remains on IV Zosyn. The patient remains on Lasix 40 mg IV every 8 hours. A repeat chest x-ray was also done today and the findings are essentially showing background COPD with some improvement in the residual coarse infiltration in the right mid and right lower lobe area. 08/22/2023, the patient remains on Airvo 40 L with FiO2 of 50%. No major improvement in oxygenation and the patient continues to desaturate once FiO2 is dropped down to 40%. Nevertheless, she feels, comfortable without having any significant shortness of breath at rest. No significant sputum production. No fever or chills. She continues to make excellent urine output. Fluid balance has been negative another 2.5 L over the past 24 hours and the patient is being diuresed with Lasix 40 mg IV every 8 hours. The patient remains on DuoNeb updrafts. The patient remains on Solu-Medrol 40 mg every 6 hours. Breath sounds are quite diminished and there is no significant bronchospasm or wheezing. Repeat chest x-ray was done today and the patient was found to have limited patchy infiltrates in the right midlung in the right lower lung which continues to improve on repeated chest x-rays. WBC count of 12.4 with a hemoglobin 9.2 and a platelet count of 220. BUN is 22 with a creatinine of 0.8 and a sodium levels of 138 with a potassium level of 3.3. K level is being replaced. She remains on IV Zosyn. She remains on oral Valtrex. Shingles is being treated and the skin lesions are all stable. 08/03/2023, the patient feels well. She denies having any specific complaints. She is feeling better in terms of her breathing. Unfortunately, no significant improvement in the patient's oxygenation. The patient remains on 40 L with FiO2 of 50%.Okay make sure your white cell count is coming down okay chest x-ray findings are essentially stable with cardiomegaly and a stable right lower lobe pulmonary infiltrates. Fluid balance remains negative and the patient is in negative fluid balance of 1.4 L over the past 24 hours. She remains on Lasix 40 mg every 8 hours. She remains on Zosyn. She remains on IV Solu-Medrol 40 mg every 6 hours. She remains on bronchodilators. The patient has no significant cough or sputum production. No major edema in lower extremities. Repeat echocardiogram following the valvuloplasty showed improvement in the overall gradient through the aortic valve and gradients dropped from 75 down to 38. Continues to have mild to moderate mitral regurgitation. White cell count is 16.6 with a hemoglobin 9.4 and a platelet count of 346. Serum bicarb is at 42 with a sodium level of 139 and a potassium level of 3.4. BUN is at 33 with a creatinine of 0.96. Cardiac rhythm is sinus. Blood gas was done and it continues to show hypoxemia with a pO2 of 57. She has well compensated chronic hypercapnic respiratory failure. 08/04/2023, the patient remains on 40 L with an FiO2 of 50%, Airvo system. Noted the patient is diuresing adequately and the patient has been negative fluid balance. Repeat chest x-ray shows an area of consolidation of the right lower lobe. However the original CAT scan of the chest was done at time of admission showed no significant consolidation of the right lung base. I am going to repeat a CT angiogram to further explain the ongoing hypoxemia. The patient is post aortic valve valvuloplasty. The patient remains on Zosyn.Denies having any other complaints. The white cell count of 18 with a hemoglobin 9.4, BUN is at 35 with a creatinine of 1.07 and sodium levels of 138. Awake and alert and communicating. Remains on DuoNeb updrafts. Remains on IV Solu-Medrol 40 mg every 6 hours. Remains on Lasix 40 mg IV every 8 hours. Remains on IV Zosyn. On today's evaluation of 08/05/2023, patient is being seen for a follow-up. Ruben erating the diuresis well. Oxygenation is improved since yesterday. The patient is currently on 35 L with an FiO2 of 35%. Fluid balance over the past 24 hours has been in the order of -3.8 L. Will continue diuresis as long as the patient continues to produce excellent amount of urine output. There is somewhat improvement in oxygenation. Clinically stable. Chest x-ray findings are essentially stable. There is improvement in the right basilar pulmonary infiltration. I wanted to do a CT angiogram of the chest yesterday. The patient declined the testing. WBC count at 18.8 and hemoglobin 9.6. Serum bicarb is at 41, BUN is 43 with a creatinine of 1.02 and a sodium level is at 139. The patient is awake and alert. Denies any specific complaints. She remains hemodynamically stable. No hypotension. No significant electrolyte abnormalities. Objective - Vital Signs Vital signs: Vital Signs Temp 97.9 F 08/05/23 04:00 Pulse 86 08/05/23 07:45 Resp 12 08/05/23 04:00 BP 136/72 08/05/23 04:00 Pulse Ox 94 L 08/05/23 00:00 FiO2 40 08/05/23 07:22 Intake & Output 08/04/23 08/05/23 08/05/23 18:59 06:59 18:59 Intake Total 490 280 Output Total 1050 2280 Balance -560 -2000 Intake: IV 200 280 KVO 80 Piperacillin-Tazobactam 3 200 200 .375 gm In Sodium Chloride 0.9% 100 ml @ 25 mls/hr IVPB Q8HR [facility] Rx# :[id number] Intake, IV Titration 50 Amount Sodium Chloride 0.9% 1, 40 000 ml @ 0 mls/hr IV .STK -[facility] ONE Rx#:[id number] Sodium Chloride 0.9% 1, 10 000 ml @ 0 mls/hr IV .STK -[facility] ONE Rx#:[id number] Oral 240 Output: Urine 1050 2280 Other: Voiding Method Bedside Commode Bedside Commode # Voids 1 0 # Bowel Movements 1 - Exam No acute distress, oriented 3. The patient is currently on Airvo at 35 L with an FiO2 of 35%. She has obvious cushingoid features and she is morbidly obese with a BMI of 36.7. HEENT examination is grossly unremarkable. Mucous membranes are moist. No oral lesions. Neck supple. Full range of motion. No adenopathy thyromegaly or neck vein distention. Cardiovascular examination reveals regular rhythm rate. S1-S2 normal. No S3 or S4. Harsh systolic ejection murmur over the left apex and left lateral sternal border. Heart sounds are distant. Lungs reveal diminished bilateral breath sounds. Scattered rhonchi and wheezes are noted. No crackles. Breath sounds equal bilaterally Abdominal exam revealed normal bowel sounds. The abdomen was soft, non-tender, and without masses, organomegaly, or appreciable enlargement of the abdominal aorta. Extremities are intact. No cyanosis clubbing or edema. Skin is without rash or lesion. Shingles with right lesions in the right upper extremity. No open vesicles at this point in time. Neurologically, the patient is awake and alert and the patient does not have any focal neurological deficit. Cranial nerves are essentially intact. - Labs CBC & Chem 7: 08/05/23 04:56 08/05/23 04:56 Labs: Abnormal Lab Results - Last 24 Hours (Table) 08/04/23 08/04/23 08/04/23 Range/Units 11:40 15:53 20:13 WBC (3.8-10.6) k/uL RBC (3.80-5.40) m/uL Hgb (11.4-16.0) gm/dL Hct (34.0-46.0) % Neutrophils # (1.3-7.7) k/uL Chloride (98-107) mmol/L Carbon Dioxide (22-30) mmol/L BUN (7-17) mg/dL Glucose (74-99) mg/dL POC Glucose (mg/dL) 192 H 336 H 143 H (70-110) mg/dL 08/05/23 08/05/23 08/05/23 Range/Units 04:56 04:56 06:44 WBC 18.8 H (3.8-10.6) k/uL RBC 3.16 L (3.80-5.40) m/uL Hgb 9.6 L (11.4-16.0) gm/dL Hct 31.0 L (34.0-46.0) % Neutrophils # 16.7 H (1.3-7.7) k/uL Chloride 89 L (98-107) mmol/L Carbon Dioxide 41 H* (22-30) mmol/L BUN 43 H (7-17) mg/dL Glucose 206 H (74-99) mg/dL POC Glucose (mg/dL) 235 H (70-110) mg/dL Assessment and Plan Plan: Acute on chronic hypoxic respiratory failure. Typically the patient is on 5 L of oxygen by nasal cannula. The patient is currently on Airvo responding to the diuresis and the patient is currently on 35 L with an FiO2 of 35%. No significant respiratory distress at rest. Continues to have some desaturation with activity. Nevertheless, she has responded to diuresis. Oxygenation is gradually improving after being stable for several days. Negative fluid balance as mentioned. Coronary artery disease, involving the LAD, with 40 to 50% stenosis, and a patent proximal RCA stent. Severe aortic stenosis with a valve surface area of 0.6 cm, S/P BVP, July 28, 2023, postop day # 8 Right lower lobe consolidation/pneumonia, consider hospital-acquired pneumonia versus aspiration., Stable right lower lobe pulmonary infiltrate on IV Zosyn. chronic hypoxemic and hypercapnic respiratory failure, secondary to COPD. Shingles involving the right upper extremity currently on Valtrex History of hyperlipidemia. History of hypertension. History of chronic low back pain. Obesity. Aortic valve stenosis. History of tracheobronchitis. Prior history of heavy tobacco use. Plan: Airvo and currently on 35 L with FiO2 of 35 to 40%, will continue our attempts to wean down the FiO2 gradually. Some improvement in oxygenation over the past 24 hours Continue bronchodilators with DuoNeb updrafts Continue on Perforomist and Pulmicort nebulized treatments twice a day Will discontinue the IV Solu-Medrol and put the patient on prednisone burst taper IV Zosyn Continue IV Lasix 40 mg every 8 hours Negative fluid balance Chest x-ray improved Declined repeat CAT scan of the chest utilizing the CTA protocol. Continue Valtrex for shingles of the right upper extremity Keep the patient on KVO IV fluids Incentive spirometer Increase mobility Daily chest x-rays
[2023-08-05 16:07] LABS: Glucose,Whole Blood 247 mg/dL (70-110)
[2023-08-05] MEDS: predniSONE 20 MG TAB PO SCH (16:36)
[2023-08-05 20:15] LABS: Glucose,Whole Blood 346 mg/dL (70-110)
--- NOTE | 2023-08-06 00:23 | P.PN ---
Subjective This is a pleasant 62 years old female with past medical history of multiple medical problems including COPD and chronic hypoxic respiratory failure on 5 L oxygen at home and she follows up with Dr. MACARIO for her COPD. Other medical problems including aortic stenosis status post TAVR, coronary artery disease s/p stent and depression and anxiety. Patient presents because of pain in her right shoulder radiating to her right arm and right chest for a few days since , 110/10 in severity, no history of trauma or fall. Pain described as nonspecific with no precipitating or relieving factors. She denies dyspnea she has dry cough. She is using 5 L of oxygen at home. No change in urine or bowel habits. No headache dizziness weakness or numbness. She denies current smoking alcohol or illicit drugs Patient is hemodynamically stable, afebrile She has unremarkable CBC, INR, BMP, liver enzymes, lipase Troponin is elevated 0.04 Chest x-ray is negative for acute process EKG showing atrial tachycardia with short CA interval but no significant ST-T changes. 07/25/2023 Patient is status post cardiac cath yesterday showing mid LAD stenosis 40-50% with patent RCA stent, also shows evidence of severe aortic stenosis, therefore cardiothoracic surgery team were consulted however patient is known not to follow-up on patient, as confirmed with the patient and daughter at bedside today who states that her mom usually go home call Dr. trejo isn't canceled her appointment and she does not follow up Further workup per cardiothoracic surgery team is requested here On admission yesterday she has limited air entry and she was placed on IV Solu- Medrol or acute COPD exacerbation, whiletoday air flow is much better although she has scattered wheezing and she still mildly tachypneic and therefore we consulted pulmonary service currently she is placed on prednisone 5 mg. she is to have mild to moderate right shoulder pain mostly related to her cardiac disease. Some elements of osteoarthritis. her heparin drip was stopped , 07/26/2023 Patient breathing is better, no chest pain today But she still complaining from more severe right shoulder pain. Patient has this pain improved with the steroids but when switched to oral prednisone 5 mg the pain increased today again. She has more rash in her medial arm and forearm and the arm. For short distance with maculopapular rash with possible some vesicles been forming with the pain and tenderness goes with the rash and around it, signs suspicious for shingles. Therefore we are going to start her on [place] for pain management and valacyclovir and asked ID team to reevaluate. Also will put on isolation till cleared. She is hemodynamically stable She is being evaluated by cardiothoracic surgery team as well. 07/27/2023 Patient is awake and alert she denies chest pain but she still complaining from right shoulder pain and neuropathic pain along her rash in the right armpit and the surrounding skin down to the left wrist along the medial side, rash is getting somewhat crusted partially. Breathing is stable However through the day her blood pressure became on the low side She is getting normal saline running at 90 mL/h Cardiology team and planning for balloon valvuloplasty for her severe aortic stenosis She is currently covered with valacyclovir, Lyrica, prednisone 5 mg Oral Lasix and Farxiga 08/01/2023 Patient looks comfortable somewhat but mildly tachypneic, she had aortic valve procedure valvoplasty for her severe aortic stenosis and that improved her blood pressure but patient had decompensated pulmonary function and developed acute COPD exacerbation and fluid overload and currently she is on IV Solu-Medrol 60 mg and IV Lasix 40 mg Also patient placed on broad-spectrum antibiotic with Zosyn besides her Valtrex and Lyrica for her herpes rash of the right upper extremity which is currently improved significantly. Patient still complaining from pain but improved from last week Also patient on Farxiga and metoprolol Other vitals look stable, she is mildly tachycardic but afebrile. WBC is 13 and hemoglobin stable at 8.7. Chest x-ray showing bilateral infiltrate 08/02/2023 Patient is tachypneic today. She still needs 40 L/min of oxygen like yesterday No other new complaints She remains on IV Solu-Medrol, Zosyn and IV Lasix 40 mg every 8 hours Also she is on Valtrex and Lyrica which is improving her herpes infection 08/03/2023 Patient breathing is similar to yesterday, she is only mildly tachypneic at rest, no respiratory distress, she does freely She is still on 40 L oxygen via high flow nasal cannula No other new complaints She remains on IV Lasix 40 mg every 8 hours, IV Solu-Medrol 60 mg and Zosyn. She is currently not on anticoagulation BX showed respiratory alkalosis with elevated pCO2 57 08/04/2023 Patient remains in the ICU She is still on 40 L oxygen She is still on IV Lasix, IV Solu-Medrol and Zosyn No chest pain no new complaint 08/05/2023 patient showed some improvement in her breathing today with oxygen requirement came down from 40 L/min down to 35 L/min for the first time in a few days No other new complaints. However she kept on IV Lasix 40 mg every 8 hours and Zosyn Also she is on Lyrica and shingles rash significantly improved Objective - Vital Signs Vital signs: Vital Signs Temp 97.9 F 08/05/23 16:00 Pulse 88 08/05/23 19:49 Resp 21 08/05/23 16:00 BP 129/61 08/05/23 16:00 Pulse Ox 96 08/05/23 16:00 FiO2 40 08/05/23 19:49 Intake & Output 08/05/23 08/05/23 08/06/23 06:59 18:59 06:59 Intake Total 280 720 Output Total 2280 1902 Balance -1999 Intake: IV 280 320 KVO 80 120 Piperacillin-Tazobactam 3 200 200 .375 gm In Sodium Chloride 0.9% 100 ml @ 25 mls/hr IVPB Q8HR [facility] Rx# :[id number] Oral 400 Output: Urine 2280 1900 Stool 2 Other: Voiding Method Bedside Commode Bedside Commode # Voids 0 - Exam GENERAL: The patient is alert and oriented x3, not in any acute distress. Well developed, well nourished. HEENT: Pupils are round and equally reacting to light. EOMI. No scleral icterus. No conjunctival pallor. Normocephalic, atraumatic. No pharyngeal erythema. No thyromegaly. CARDIOVASCULAR: S1 and S2 present. No murmurs, rubs, or gallops. -PULMONARY: Chest is clear to auscultation, scattered wheezing , no crackles. ABDOMEN: Soft, nontender, nondistended, normoactive bowel sounds. No palpable organomegaly. MUSCULOSKELETAL: No joint swelling or deformity. EXTREMITIES: No cyanosis, clubbing, or pedal edema. NEUROLOGICAL: Gross neurological examination did not reveal any focal deficits. SKIN: No rashes. no petechiae. - Labs CBC & Chem 7: 08/05/23 04:56 08/05/23 04:56 Labs: Abnormal Lab Results - Last 24 Hours (Table) 08/04/23 08/05/23 08/05/23 Range/Units 20:13 04:56 04:56 WBC 18.8 H (3.8-10.6) k/uL RBC 3.16 L (3.80-5.40) m/uL Hgb 9.6 L (11.4-16.0) gm/dL Hct 31.0 L (34.0-46.0) % Neutrophils # 16.7 H (1.3-7.7) k/uL Chloride 89 L (98-107) mmol/L Carbon Dioxide 41 H* (22-30) mmol/L BUN 43 H (7-17) mg/dL Glucose 206 H (74-99) mg/dL POC Glucose (mg/dL) 143 H (70-110) mg/dL 08/05/23 08/05/23 08/05/23 Range/Units 06:44 10:51 16:05 WBC (3.8-10.6) k/uL RBC (3.80-5.40) m/uL Hgb (11.4-16.0) gm/dL Hct (34.0-46.0) % Neutrophils # (1.3-7.7) k/uL Chloride (98-107) mmol/L Carbon Dioxide (22-30) mmol/L BUN (7-17) mg/dL Glucose (74-99) mg/dL POC Glucose (mg/dL) 235 H 225 H 247 H (70-110) mg/dL Assessment and Plan Assessment: Right shoulder pain/chest pain with right upper extremity rash along the medial side, shingles severe aortic stenosis, status post aortic valvuloplasty Acute CHF exacerbation. Cannot rule out pneumonia Acute COPD exacerbation. Mildly acute on chronic hypoxic respiratory failure. Resolved Atrial tachycardia with short CA interval Coronary artery disease s/p stent History of arctic stenosis s/p TAVR Obesity with BMI of 36.6 History of depression and anxiety, no acute process. Plan: Start valacyclovir, Lyrica, And ID consult Continue with Zosyn Continue with IV Lasix Continue with prednisone and DC IV Solu-Medrol Continue with aspirin Cardiology consult, with plan for possible balloon valvuloplasty cardiothoracic consult patient and olga at bed side were counseled about the importance of follow- up with appointment prednisone 5 mg daily Continue breathing treatment and bronchodilator Labs and medication were reviewed.. Continue same treatment. Continue with symptomatic treatment. Resume home medication. Monitor labs and vitals. DVT and GI prophylaxis. Further recommendations as per clinical course of the patient DVT prophylaxis: Subcutaneous heparin GI Prophylaxis: Pepcid Prognosis is guarded
[2023-08-06 04:37] LABS: Basophils # (A) 0.1 k/uL (0-0.2); Basophils % (A) 0 %; Eosinophils % (A) 0 %; HCT 32.1 % (34.0-46.0); HGB 9.9 gm/dL (11.4-16.0); Hypochromasia Slight; Lymphocytes # (A) 1.3 k/uL (1.0-4.8); Lymphocytes % (A) 6 %; MCH 30.3 pg (25.0-35.0); MCHC 30.8 g/dL (31.0-37.0); MCV 98.2 fL (80.0-100.0); Mean Platelet Volume 7.7; Monocytes # (A) 1.2 k/uL (0-1.0); Monocytes % (A) 6 %; Neutrophils # (A) 18.5 k/uL (1.3-7.7); Neutrophils % (A) 87 %; Platelet Count 364 k/uL (150-450); RBC 3.27 m/uL (3.80-5.40); RDW 14.5 % (11.5-15.5); WBC 21.2 k/uL (3.8-10.6)
[2023-08-06 05:02] LABS: African American GFR (CKD) 54 (>60 ml/min/1.73 sqM); Blood Urea Nitrogen 48 mg/dL (7-17); Calcium 8.9 mg/dL (8.4-10.2); Chloride 89 mmol/L (98-107); Glucose 206 mg/dL (74-99); Non-African American GFR(CKD) 47 (>60 ml/min/1.73 sqM); Potassium 3.6 mmol/L (3.5-5.1); Sodium 136 mmol/L (137-145)
[2023-08-06 05:08] LABS: Anion Gap 2 mmol/L
[2023-08-06 05:12] LABS: Carbon Dioxide 45 mmol/L (22-30)
[2023-08-06 07:03] LABS: Glucose,Whole Blood 170 mg/dL (70-110)
[2023-08-06] MEDS: POTASSIUM CHLORIDE ER 20 MEQ TAB.ER PO SCH (07:04)
--- NOTE | 2023-08-06 08:04 | XR ---
EXAM: XR chest 1V portable CLINICAL INDICATION:Female, 63 years old with history of shortness of breath; [facility] COMPARISON: 08/05/2023 and 08/04/2023 TECHNIQUE: Chest single view. FINDINGS: Lines/tubes/devices: EKG leads overlie the chest. No indwelling lines are seen. Cardiomediastinum: Cardiac silhouette appears mildly enlarged. Stable mediastinal silhouette. Vasculature: No increased pulmonary vasculature. Lungs/pleura: Slightly increased airspace opacities in the right lung base and right mid to upper lung zone. Stable mild coarsening of the interstitium diffusely. No sizable effusion or pneumothorax. Bones/soft tissues: Bony thorax appears grossly unchanged as seen. Regional soft tissues appear unremarkable. IMPRESSION: Slight interval worsening of airspace opacities on the right. Continued clinical correlation and foll ow-up to resolution.
--- NOTE | 2023-08-06 08:06 | P.PN ---
Subjective Progress Note Date: 08/06/23 63-year-old female well-known to our service. The patient has a history of chronic hypoxemic respiratory failure secondary to COPD, and is chronically oxygen dependent. The patient presented to the emergency room, on July 23, complaining of chest pain. The pain apparently was on the right side of her chest, and radiated into her right arm. The pain started on the prior . The patient does have a history of coronary disease, and has had stents placed in the last year. In addition, she admits to chronic shortness of breath, secondary to her severe COPD. The patient did go to the catheterization laboratory on July 23, and was found to have a 40 to 50% stenosis, in the mid LAD, with a patent proximal RCA stent. In addition, on echocardiogram, the patient was found to have severe aortic stenosis, with a valve surface area of 1.6 cm, and a gradient across the aortic valve, of 100 mmHg. The patient underwent a valvuloplasty by cardiology. On today's evaluation of 07/31/2023, the patient is being seen for a follow-up. The patient is calm and comfortable. She is still having oxygen saturations on high flow oxygen and the patient will be placed on Airvo to maintain an oxygen saturation above 90%. The patient has advanced COPD and the patient is typically on oxygen at 5 L at baseline. The patient is also developed a right lower lobe consolidation consistent with pneumonia and the patient remains on IV Zosyn. Earlier, the patient was not nonabrasive fullface mask and the patient will be switched to Airvo. IV fluids are currently at KVO. The procalcitonin level is at 0.14. Hemodynamically stable and the patient is on no pressors. White cell count at 13.4 with a hemoglobin 9.2 and a platelet count of 254. BUN is at 17 with a creatinine of 0.8 and a sodium levels at 137. Potassium level is at 3.8. The patient is receiving Lasix 40 mg p.o. daily. The patient is on prednisone 5 mg p.o. daily. The patient also has developed shingles in the right upper extremity and the patient is currently on Valtrex. Remains on DuoNeb updrafts. Remains on a combination of Perforomist and Pulmicort updrafts twice a day. As mentioned, chest x-ray showing a right lower lobe consolidation. On today's evaluation of 08/01/2023, the patient is essentially the same as yester day. No significant changes in terms of her oxygenation. The patient remains on Airvo 40 L with FiO2 of 50%. No fever. No chills. Using incentive spirometer. No chest pain. No signs of any CO2 narcosis or altered mentation. Blood work from today shows a WBC count of 13 with a hemoglobin 8.7 and a platelet count of 272. Sodium is at 137 with a potassium level of 3.2, bicarb is at 39 with a BUN of 15 and a creatinine of 0.7. Fluid balance over the past 24 hours is -2.6 L and the patient is headed towards another 2.5 L negative in terms of her fluid balance over the next 24 hours. The patient remains on bronchodilators. The patient remains on IV Solu-Medrol 40 mg every 6 hours. The patient remains on IV Zosyn. The patient remains on Lasix 40 mg IV every 8 hours. A repeat chest x-ray was also done today and the findings are essentially showing background COPD with some improvement in the residual coarse infiltration in the right mid and right lower lobe area. 08/22/2023, the patient remains on Airvo 40 L with FiO2 of 50%. No major improvement in oxygenation and the patient continues to desaturate once FiO2 is dropped down to 40%. Nevertheless, she feels, comfortable without having any significant shortness of breath at rest. No significant sputum production. No fever or chills. She continues to make excellent urine output. Fluid balance has been negative another 2.5 L over the past 24 hours and the patient is being diuresed with Lasix 40 mg IV every 8 hours. The patient remains on DuoNeb updrafts. The patient remains on Solu-Medrol 40 mg every 6 hours. Breath sounds are quite diminished and there is no significant bronchospasm or wheezing. Repeat chest x-ray was done today and the patient was found to have limited patchy infiltrates in the right midlung in the right lower lung which continues to improve on repeated chest x-rays. WBC count of 12.4 with a hemoglobin 9.2 and a platelet count of 220. BUN is 22 with a creatinine of 0.8 and a sodium levels of 138 with a potassium level of 3.3. K level is being replaced. She remains on IV Zosyn. She remains on oral Valtrex. Shingles is being treated and the skin lesions are all stable. 08/03/2023, the patient feels well. She denies having any specific complaints. She is feeling better in terms of her breathing. Unfortunately, no significant improvement in the patient's oxygenation. The patient remains on 40 L with FiO2 of 50%.Okay make sure your white cell count is coming down okay chest x-ray findings are essentially stable with cardiomegaly and a stable right lower lobe pulmonary infiltrates. Fluid balance remains negative and the patient is in negative fluid balance of 1.4 L over the past 24 hours. She remains on Lasix 40 mg every 8 hours. She remains on Zosyn. She remains on IV Solu-Medrol 40 mg every 6 hours. She remains on bronchodilators. The patient has no significant cough or sputum production. No major edema in lower extremities. Repeat echocardiogram following the valvuloplasty showed improvement in the overall gradient through the aortic valve and gradients dropped from 75 down to 38. Continues to have mild to moderate mitral regurgitation. White cell count is 16.6 with a hemoglobin 9.4 and a platelet count of 346. Serum bicarb is at 42 with a sodium level of 139 and a potassium level of 3.4. BUN is at 33 with a creatinine of 0.96. Cardiac rhythm is sinus. Blood gas was done and it continues to show hypoxemia with a pO2 of 57. She has well compensated chronic hypercapnic respiratory failure. 08/04/2023, the patient remains on 40 L with an FiO2 of 50%, Airvo system. Noted the patient is diuresing adequately and the patient has been negative fluid balance. Repeat chest x-ray shows an area of consolidation of the right lower lobe. However the original CAT scan of the chest was done at time of admission showed no significant consolidation of the right lung base. I am going to repeat a CT angiogram to further explain the ongoing hypoxemia. The patient is post aortic valve valvuloplasty. The patient remains on Zosyn.Denies having any other complaints. The white cell count of 18 with a hemoglobin 9.4, BUN is at 35 with a creatinine of 1.07 and sodium levels of 138. Awake and alert and communicating. Remains on DuoNeb updrafts. Remains on IV Solu-Medrol 40 mg every 6 hours. Remains on Lasix 40 mg IV every 8 hours. Remains on IV Zosyn. On today's evaluation of 08/05/2023, patient is being seen for a follow-up. Ruben erating the diuresis well. Oxygenation is improved since yesterday. The patient is currently on 35 L with an FiO2 of 35%. Fluid balance over the past 24 hours has been in the order of -3.8 L. Will continue diuresis as long as the patient continues to produce excellent amount of urine output. There is somewhat improvement in oxygenation. Clinically stable. Chest x-ray findings are essentially stable. There is improvement in the right basilar pulmonary infiltration. I wanted to do a CT angiogram of the chest yesterday. The patient declined the testing. WBC count at 18.8 and hemoglobin 9.6. Serum bicarb is at 41, BUN is 43 with a creatinine of 1.02 and a sodium level is at 139. The patient is awake and alert. Denies any specific complaints. She remains hemodynamically stable. No hypotension. No significant electrolyte abnormalities. On today's evaluation of 08/06/2023, no new complaints and the patient remains on Airvo 35 L with an FiO2 of 40%. Chest x-ray shows no interval change. Findings are essentially stable. Denies having interval worsening shortness of breath. The patient is on IV Lasix. Fluid balance -1.3 L over the past 24 hours. The patient's creatinine today is slightly elevated at 1.24 with a BUN of 48 and sodium of 136. She remains on IV Lasix 40 mg every 8 hours. The white cell count is gradually on the rise and the white cell count is up to 21.2 with a hemoglobin of 9.9. She remains on IV Zosyn. She is currently on oral prednisone. Rest of the medications remain unchanged. She remains on DuoNeb updrafts, she remains on Perforomist and Pulmicort. Objective - Vital Signs Vital signs: Vital Signs Temp 97 F L 08/06/23 04:00 Pulse 86 08/06/23 07:48 Resp 18 08/06/23 04:00 BP 165/76 08/06/23 04:00 Pulse Ox 94 L 08/06/23 04:00 FiO2 40 08/06/23 07:23 Intake & Output 08/05/23 08/06/23 08/06/23 18:59 06:59 18:59 Intake Total 720 280 680 Output Total 3624 415 9014 Balance -4606 -168 -805 Intake: IV 320 40 200 KVO 120 40 100 Piperacillin-Tazobactam 3 200 100 .375 gm In Sodium Chloride 0.9% 100 ml @ 25 mls/hr IVPB Q8HR [facility] Rx# :[id number] Oral 400 240 480 Output: Urine 2850 557 6993 Stool 2 Other: Voiding Method Bedside Commode Bedside Commode - Exam No acute distress, oriented 3. The patient is currently on Airvo at 35 L with an FiO2 of 40%. She has obvious cushingoid features and she is morbidly obese with a BMI of 36.7. HEENT examination is grossly unremarkable. Mucous membranes are moist. No oral lesions. Neck supple. Full range of motion. No adenopathy thyromegaly or neck vein distention. Cardiovascular examination reveals regular rhythm rate. S1-S2 normal. No S3 or S4. Harsh systolic ejection murmur over the left apex and left lateral sternal border. Heart sounds are distant. Lungs reveal diminished bilateral breath sounds. Scattered rhonchi and wheezes are noted. No crackles. Breath sounds equal bilaterally Abdominal exam revealed normal bowel sounds. The abdomen was soft, non-tender, and without masses, organomegaly, or appreciable enlargement of the abdominal aorta. Extremities are intact. No cyanosis clubbing or edema. Skin is without rash or lesion. Shingles with right lesions in the right upper extremity. No open vesicles at this point in time. Neurologically, the patient is awake and alert and the patient does not have any focal neurological deficit. Cranial nerves are essentially intact. 40 - Labs CBC & Chem 7: 08/06/23 03:33 08/06/23 03:33 Labs: Abnormal Lab Results - Last 24 Hours (Table) 08/05/23 08/05/23 08/05/23 Range/Units 10:51 16:05 20:13 WBC (3.8-10.6) k/uL RBC (3.80-5.40) m/uL Hgb (11.4-16.0) gm/dL Hct (34.0-46.0) % MCHC (31.0-37.0) g/dL Neutrophils # (1.3-7.7) k/uL Monocytes # (0-1.0) k/uL Sodium (137-145) mmol/L Chloride (98-107) mmol/L Carbon Dioxide (22-30) mmol/L BUN (7-17) mg/dL Creatinine (0.52-1.04) mg/dL Glucose (74-99) mg/dL POC Glucose (mg/dL) 225 H 247 H 346 H (70-110) mg/dL 08/06/23 08/06/23 08/06/23 Range/Units 03:33 03:33 07:02 WBC 21.2 H (3.8-10.6) k/uL RBC 3.27 L (3.80-5.40) m/uL Hgb 9.9 L (11.4-16.0) gm/dL Hct 32.1 L (34.0-46.0) % MCHC 30.8 L (31.0-37.0) g/dL Neutrophils # 18.5 H (1.3-7.7) k/uL Monocytes # 1.2 H (0-1.0) k/uL Sodium 136 L (137-145) mmol/L Chloride 89 L (98-107) mmol/L Carbon Dioxide 45 H* (22-30) mmol/L BUN 48 H (7-17) mg/dL Creatinine 1.24 H (0.52-1.04) mg/dL Glucose 206 H (74-99) mg/dL POC Glucose (mg/dL) 170 H (70-110) mg/dL Assessment and Plan Plan: Acute on chronic hypoxic respiratory failure. Typically the patient is on 5 L of oxygen by nasal cannula. The patient is currently on Airvo responding to the diuresis and the patient is currently on 35 L with an FiO2 of 40%. No significant respiratory distress at rest. Continues to have some desaturation with activity. Nevertheless, she has responded to diuresis. Oxygenation is gradually improving after being stable for several days. Negative fluid balance as mentioned. Chest x-ray findings are essentially unchanged. Coronary artery disease, involving the LAD, with 40 to 50% stenosis, and a patent proximal RCA stent. Severe aortic stenosis with a valve surface area of 0.6 cm, S/P BVP, July 28, 2023, postop day # 9 Acute kidney injury with a creatinine of 1.26 probably due to aggressive diuresis. Right lower lobe consolidation/pneumonia, consider hospital-acquired pneumonia versus aspiration., Stable right lower lobe pulmonary infiltrate on IV Zosyn. chronic hypoxemic and hypercapnic respiratory failure, secondary to COPD. Shingles involving the right upper extremity currently on Valtrex History of hyperlipidemia. History of hypertension. History of chronic low back pain. Obesity. Aortic valve stenosis. History of tracheobronchitis. Prior history of heavy tobacco use. Plan: Discontinue Airvo and put the patient on 15 L of oxygen by nasal cannula Continue bronchodilators with DuoNeb updrafts Continue on Perforomist and Pulmicort nebulized treatments twice a day Continue prednisone burst taper currently on 40 mg p.o. daily IV Zosyn Continue IV Lasix 40 mg every 8 hours Negative fluid balance chest x-ray stable on today's evaluation Monitor renal function Declined repeat CAT scan of the chest utilizing the CTA protocol. Continue Valtrex for shingles of the right upper extremity Keep the patient on KVO IV fluids Incentive spirometer Increase mobility patient is a 3 S. overflow.
[2023-08-06 11:00] LABS: Glucose,Whole Blood 174 mg/dL (70-110)
--- NOTE | 2023-08-06 13:25 | P.PN ---
Subjective Progress Note Date: 08/05/23 Principal diagnosis: Reason for follow-up is right T10 dermatome shingles Patient is a 63-year-old female past medical history significant for COPD coronary artery disease [place] former smoker presenting to the hospital for evaluation of chest pain on the right side of her chest and is also complaining of pain to the right upper arm, patient did develop a rash prompting this consultation and has been diagnosed with shingles. On today's evaluation that is 08/05/2023, patient has been afebrile, patient is breathing comfortably and is currently on 35% FiO2, patient denies having any worsening cough or sputum production no chest pain shortness of breath, patient denies nausea vomiting or diarrhea and no abdominal pain, pain to the right upper extremity rash resolved no new rash Patient white count is 18.8 creatinine 1.02 Objective - Vital Signs Vital signs: Vital Signs Temp 97.9 F 08/05/23 04:00 Pulse 74 08/05/23 11:00 Resp 20 08/05/23 11:00 BP 133/73 08/05/23 08:00 Pulse Ox 96 08/05/23 08:00 FiO2 35 08/05/23 11:09 Intake & Output 08/04/23 08/05/23 08/05/23 18:59 06:59 18:59 Intake Total 490 280 240 Output Total 1050 2280 300 Balance -560 -1999 -60 Intake: IV 200 280 40 KVO 80 40 Piperacillin-Tazobactam 3 200 200 .375 gm In Sodium Chloride 0.9% 100 ml @ 25 mls/hr IVPB Q8HR [facility] Rx# :[id number] Intake, IV Titration 50 Amount Sodium Chloride 0.9% 1, 40 000 ml @ 0 mls/hr IV .STK -MED ONE Rx#:[id number] Sodium Chloride 0.9% 1, 10 000 ml @ 0 mls/hr IV .STK -MED ONE Rx#:[id number] Oral 240 200 Output: Urine 1050 2280 300 Other: Voiding Method Bedside Commode Bedside Commode Bedside Commode # Voids 1 0 # Bowel Movements 1 - Exam GENERAL DESCRIPTION: Middle-aged female lying in bed in no distress RESPIRATORY SYSTEM: Unlabored breathing , decreased breath sounds at bases HEART: S1 S2 regular rate and rhythm , ABDOMEN: Soft , no tenderness EXTREMITIES: Right upper extremity vesicular rash is drying out - Labs CBC & Chem 7: 08/06/23 03:33 08/06/23 03:33 Labs: Abnormal Lab Results - Last 24 Hours (Table) 08/04/23 08/04/23 08/05/23 Range/Units 15:53 20:13 04:56 WBC 18.8 H (3.8-10.6) k/uL RBC 3.16 L (3.80-5.40) m/uL Hgb 9.6 L (11.4-16.0) gm/dL Hct 31.0 L (34.0-46.0) % Neutrophils # 16.7 H (1.3-7.7) k/uL Chloride (98-107) mmol/L Carbon Dioxide (22-30) mmol/L BUN (7-17) mg/dL Glucose (74-99) mg/dL POC Glucose (mg/dL) 336 H 143 H (70-110) mg/dL 08/05/23 08/05/23 08/05/23 Range/Units 04:56 06:44 10:51 WBC (3.8-10.6) k/uL RBC (3.80-5.40) m/uL Hgb (11.4-16.0) gm/dL Hct (34.0-46.0) % Neutrophils # (1.3-7.7) k/uL Chloride 89 L (98-107) mmol/L Carbon Dioxide 41 H* (22-30) mmol/L BUN 43 H (7-17) mg/dL Glucose 206 H (74-99) mg/dL POC Glucose (mg/dL) 235 H 225 H (70-110) mg/dL Assessment and Plan (1) Zoster Current Visit: Yes Status: Acute Code(s): B02.9 - ZOSTER WITHOUT COMPLICATIONS SNOMED Code(s): 9676807 (2) Leukocytosis Current Visit: Yes Status: Acute Code(s): D72.829 - ELEVATED WHITE BLOOD CELL COUNT, UNSPECIFIED SNOMED Code(s): 165889987 (3) Pneumonia Current Visit: No Status: Acute Code(s): J18.9 - PNEUMONIA, UNSPECIFIED ORGANISM SNOMED Code(s): 325480627 Plan: 1patient presented to hospital with pain to the right side of the chest and right upper extremity not developing a rash which is a following T1 dermatome likely herpes zoster with no evidence of any secondary cellulitis 2-patient rash to the right upper arm decreased in intensity no evidence of cellulitis, patient to continue with Valtrex 1 g every 8 hours to finish 7-day course of therapy along with Lyrica for postherpetic neuralgia, 3-leukocytosis with a right perihilar infiltrate concerning for possible nosocomial pneumonia, the patient is afebrile and is currently covered with the Zosyn day 8 out of 10 4- worsening white count could be related to steroids versus oropharyngeal candidiasis continue with nystatin swish and swallow if any further worsening of the white count will add Eraxis Dictation was produced using [employer] dictation software. please excuse any grammatical, word or spelling errors. Time with Patient: Less than 30
--- NOTE | 2023-08-06 13:26 | P.PN ---
Subjective Progress Note Date: 08/06/23 Principal diagnosis: Reason for follow-up is right T10 dermatome shingles Patient is a 63-year-old female past medical history significant for COPD coronary artery disease [place] former smoker presenting to the hospital for evaluation of chest pain on the right side of her chest and is also complaining of pain to the right upper arm, patient did develop a rash prompting this consultation and has been diagnosed with shingles. On today's evaluation that is 08/06/2023,the patient denies any fever or any chills, patient is breathing comfortably on 10 L nasal cannula oxygen, the patient denies chest pain shortness of breath and no significant cough, patient denies abdominal pain, no nausea vomiting or diarrhea. Patient denies pain to the right upper extremity rash area. Patient white count is up to 21.2, creatinine is 1.24 Objective - Vital Signs Vital signs: Vital Signs Temp 98.2 F 08/06/23 08:00 Pulse 87 08/06/23 11:31 Resp 20 08/06/23 08:00 BP 138/93 08/06/23 08:00 Pulse Ox 98 08/06/23 11:23 FiO2 40 08/06/23 07:23 Intake & Output 08/05/23 08/06/23 08/06/23 18:59 06:59 18:59 Intake Total 720 280 680 Output Total 3253 714 8501 Balance -1182 -170 -770 Intake: IV 320 40 200 KVO 120 40 100 Piperacillin-Tazobactam 3 200 100 .375 gm In Sodium Chloride 0.9% 100 ml @ 25 mls/hr IVPB Q8HR [facility] Rx# :[id number] Oral 400 240 480 Output: Urine 0632 179 3869 Stool 2 Other: Voiding Method Bedside Commode Bedside Commode - Exam GENERAL DESCRIPTION: Middle-aged female lying in bed in no distress RESPIRATORY SYSTEM: Unlabored breathing , decreased breath sounds at bases HEART: S1 S2 regular rate and rhythm , ABDOMEN: Soft , no tenderness EXTREMITIES: Right upper extremity vesicular rash has dried out - Labs CBC & Chem 7: 08/06/23 03:33 08/06/23 03:33 Labs: Abnormal Lab Results - Last 24 Hours (Table) 08/05/23 08/05/23 08/06/23 Range/Units 16:05 20:13 03:33 WBC 21.2 H (3.8-10.6) k/uL RBC 3.27 L (3.80-5.40) m/uL Hgb 9.9 L (11.4-16.0) gm/dL Hct 32.1 L (34.0-46.0) % MCHC 30.8 L (31.0-37.0) g/dL Neutrophils # 18.5 H (1.3-7.7) k/uL Monocytes # 1.2 H (0-1.0) k/uL Sodium (137-145) mmol/L Chloride (98-107) mmol/L Carbon Dioxide (22-30) mmol/L BUN (7-17) mg/dL Creatinine (0.52-1.04) mg/dL Glucose (74-99) mg/dL POC Glucose (mg/dL) 247 H 346 H (70-110) mg/dL 08/06/23 08/06/23 08/06/23 Range/Units 03:33 07:02 10:59 WBC (3.8-10.6) k/uL RBC (3.80-5.40) m/uL Hgb (11.4-16.0) gm/dL Hct (34.0-46.0) % MCHC (31.0-37.0) g/dL Neutrophils # (1.3-7.7) k/uL Monocytes # (0-1.0) k/uL Sodium 136 L (137-145) mmol/L Chloride 89 L (98-107) mmol/L Carbon Dioxide 45 H* (22-30) mmol/L BUN 48 H (7-17) mg/dL Creatinine 1.24 H (0.52-1.04) mg/dL Glucose 206 H (74-99) mg/dL POC Glucose (mg/dL) 170 H 174 H (70-110) mg/dL Assessment and Plan (1) Zoster Current Visit: Yes Status: Acute Code(s): B02.9 - ZOSTER WITHOUT COMPLICATIONS SNOMED Code(s): 2758040 (2) Leukocytosis Current Visit: Yes Status: Acute Code(s): D72.829 - ELEVATED WHITE BLOOD CELL COUNT, UNSPECIFIED SNOMED Code(s): 679534888 (3) Pneumonia Current Visit: No Status: Acute Code(s): J18.9 - PNEUMONIA, UNSPECIFIED ORGANISM SNOMED Code(s): 405214558 Plan: 1patient presented to hospital with pain to the right side of the chest and right upper extremity not developing a rash which is a following T1 dermatome likely herpes zoster with no evidence of any secondary cellulitis 2-patient rash to the right upper arm decreased in intensity no evidence of cellulitis, patient to continue with Valtrex 1 g every 8 hours to finish 7-day course of therapy along with Lyrica for postherpetic neuralgia, 3-leukocytosis with a right perihilar infiltrate concerning for possible nosocomial pneumonia, the patient is afebrile and is currently covered with the Zosyn day 9 out of 10 4- worsening white count could be related to steroids versus oropharyngeal candidiasis did have further worsening of the white count we will add Eraxis and see response continue the nystatin swish and swallow Dictation was produced using [employer] dictation software. please excuse any grammatical, word or spelling errors. Time with Patient: Less than 30
[2023-08-06 16:36] LABS: Glucose,Whole Blood 350 mg/dL (70-110)
[2023-08-06] MEDS: ANIDULAFUNGIN 200 MG in SODIUM CHLORIDE 0.9% 200 ML IVPB ONE (16:43)
[2023-08-06 20:24] LABS: Glucose,Whole Blood 256 mg/dL (70-110)
[2023-08-07 06:09] LABS: Glucose,Whole Blood 120 mg/dL (70-110)
--- NOTE | 2023-08-07 08:08 | XR ---
EXAMINATION TYPE: XR chest 1V portable DATE OF EXAM: 08/07/2023 COMPARISON: 08/06/2023 INDICATION: Short of breath TECHNIQUE: Single frontal view of the chest is obtained. FINDINGS: The heart size is normal. The pulmonary vasculature is normal. The lungs are clear. IMPRESSION: 1. No acute pulmonary process.
[2023-08-07 11:33] LABS: Glucose,Whole Blood 237 mg/dL (70-110)
--- NOTE | 2023-08-07 12:32 | P.PN ---
Subjective Progress Note Date: 08/07/23 Principal diagnosis: Reason for follow-up is right T10 dermatome shingles Patient is a 63-year-old female past medical history significant for COPD coronary artery disease [place] former smoker presenting to the hospital for evaluation of chest pain on the right side of her chest and is also complaining of pain to the right upper arm, patient did develop a rash prompting this consultation and has been diagnosed with shingles. On today's evaluation that is 08/07/2023,the patient remains to be afebrile, patient is down to 7 L high flow nasal cannula supplemental oxygen however the patient denies any shortness of breath no chest pain or any worsening cough.Patient denies having any nausea or vomiting, no abdominal pain and no diarrhea has been reported. Labs from this morning are currently pending Objective - Vital Signs Vital signs: Vital Signs Temp 97.8 F 08/07/23 08:45 Pulse 88 08/07/23 11:47 Resp 22 08/07/23 08:45 BP 102/67 08/07/23 08:45 Pulse Ox 93 L 08/07/23 08:45 FiO2 40 08/06/23 07:23 Intake & Output 08/06/23 08/07/23 08/07/23 18:59 06:59 18:59 Intake Total 780 0 Output Total 2650 Balance -1870 0 Weight 89 kg Intake: IV 300 KVO 100 Piperacillin-Tazobactam 3 200 .375 gm In Sodium Chloride 0.9% 100 ml @ 25 mls/hr IVPB Q8HR [facility] Rx# :[id number] Oral 480 0 Output: Urine 2650 Other: Voiding Method Bedside Commode Bedside Commode # Bowel Movements 2 - Exam GENERAL DESCRIPTION: Middle-aged female lying in bed in no distress RESPIRATORY SYSTEM: Unlabored breathing , decreased breath sounds at bases HEART: S1 S2 regular rate and rhythm , ABDOMEN: Soft , no tenderness EXTREMITIES: Right upper extremity vesicular rash has dried out - Labs CBC & Chem 7: 08/06/23 03:33 08/06/23 03:33 Labs: Abnormal Lab Results - Last 24 Hours (Table) 08/06/23 08/06/23 08/07/23 Range/Units 16:34 20:22 06:08 POC Glucose (mg/dL) 350 H 256 H 120 H (70-110) mg/dL 08/07/23 Range/Units 11:32 POC Glucose (mg/dL) 237 H (70-110) mg/dL Assessment and Plan (1) Zoster Current Visit: Yes Status: Acute Code(s): B02.9 - ZOSTER WITHOUT COMPLICATIONS SNOMED Code(s): 6966448 (2) Leukocytosis Current Visit: Yes Status: Acute Code(s): D72.829 - ELEVATED WHITE BLOOD CELL COUNT, UNSPECIFIED SNOMED Code(s): 735706702 (3) Pneumonia Current Visit: No Status: Acute Code(s): J18.9 - PNEUMONIA, UNSPECIFIED ORGANISM SNOMED Code(s): 947578485 Plan: 1patient presented to hospital with pain to the right side of the chest and right upper extremity not developing a rash which is a following T1 dermatome likely herpes zoster with no evidence of any secondary cellulitis 2-patient rash to the right upper arm decreased in intensity no evidence of cellulitis, patient to continue with Valtrex 1 g every 8 hours to finish 7-day course of therapy along with Lyrica for postherpetic neuralgia, 3-leukocytosis with a right perihilar infiltrate concerning for possible nosocomial pneumonia, the patient is afebrile and is currently covered with the Zosyn day 10 out of 10, and can be discontinued after today's dose 4- worsening white count could be related to steroids versus oropharyngeal candidiasis, continue with Eraxis and nystatin swish and swallow we will follow- up on the CBC from this morning Dictation was produced using [email or web address] dictation software. please excuse any grammatical, word or spelling errors. Time with Patient: Less than 30
--- NOTE | 2023-08-07 14:13 | P.PN ---
Subjective Progress Note Date: 08/07/23 This is a pleasant 62 years old female with past medical history of multiple medical problems including COPD and chronic hypoxic respiratory failure on 5 L oxygen at home and she follows up with Dr. MACARIO for her COPD. Other medical problems including aortic stenosis status post TAVR, coronary artery disease s/p stent and depression and anxiety. Patient presents because of pain in her right shoulder radiating to her right arm and right chest for a few days since , 110/10 in severity, no histor y of trauma or fall. Pain described as nonspecific with no precipitating or relieving factors. She denies dyspnea she has dry cough. She is using 5 L of oxygen at home. No change in urine or bowel habits. No headache dizziness weakness or numbness. She denies current smoking alcohol or illicit drugs Patient is hemodynamically stable, afebrile She has unremarkable CBC, INR, BMP, liver enzymes, lipase Troponin is elevated 0.04 Chest x-ray is negative for acute process EKG showing atrial tachycardia with short MO interval but no significant ST-T changes. 07/25/2023 Patient is status post cardiac cath yesterday showing mid LAD stenosis 40-50% with patent RCA stent, also shows evidence of severe aortic stenosis, therefore cardiothoracic surgery team were consulted however patient is known not to follow-up on patient, as confirmed with the patient and daughter at bedside today who states that her mom usually go home call Dr. trejo isn't canceled her appointment and she does not follow up Further workup per cardiothoracic surgery team is requested here On admission yesterday she has limited air entry and she was placed on IV Solu- Medrol or acute COPD exacerbation, whiletoday air flow is much better although she has scattered wheezing and she still mildly tachypneic and therefore we consulted pulmonary service currently she is placed on prednisone 5 mg. she is to have mild to moderate right shoulder pain mostly related to her cardiac disease. Some elements of osteoarthritis. her heparin drip was stopped , 07/26/2023 Patient breathing is better, no chest pain today But she still complaining from more severe right shoulder pain. Patient has this pain improved with the steroids but when switched to oral prednisone 5 mg the pain increased today again. She has more rash in her medial arm and forearm and the arm. For short distance with maculopapular rash with possible some vesicles been forming with the pain and tenderness goes with the rash and around it, signs suspicious for shingles. Therefore we are going to start her on Adrian for pain management and valacyclovir and asked ID team to reevaluate. Also will put on isolation till cleared. She is hemodynamically stable She is being evaluated by cardiothoracic surgery team as well. 07/27/2023 Patient is awake and alert she denies chest pain but she still complaining from right shoulder pain and neuropathic pain along her rash in the right armpit and the surrounding skin down to the left wrist along the medial side, rash is getting somewhat crusted partially. Breathing is stable However through the day her blood pressure became on the low side She is getting normal saline running at 90 mL/h Cardiology team and planning for balloon valvuloplasty for her severe aortic stenosis She is currently covered with valacyclovir, Lyrica, prednisone 5 mg Oral Lasix and Farxiga 07/27. Patient seen examined. States right shoulder pain has improved, lesions on the right arm has improved. 07/28. Patient seen and examined. s/p balloon aortic valvuloplasty with a 28mm Z Med balloon on 07/27. Currently on 15 L of oxygen. Critical care ordered 1 dose of 60 mg of Lasix IV 07/29. Patient seen and examined. Currently sitting up in the chair, states she feels better compared to yesterday. Currently on 15 L of oxygen. Critical care have ordered 60 mg of IV Lasix. 07/30. Patient seen and examined. Vital signs this morning temp temperature afebrile, heart rate 79, respirate 17, blood pressure 93/61, currently on Airvo at 45 L of oxygen. Blood work done this morning showed WBC 13.4, hemoglobin 9.2, platelet count 254, sodium 137, potassium 3.2, BUN 17, creatinine 0.8. Potassium placement ordered. Cardiology following, recommended patient is not a candidate for surgical intervention and TAVR procedure is complicated by enlarged ascending aorta. 08/01/2023 Patient looks comfortable somewhat but mildly tachypneic, she had aortic valve procedure valvoplasty for her severe aortic stenosis and that improved her blood pressure but patient had decompensated pulmonary function and developed acute COPD exacerbation and fluid overload and currently she is on IV Solu-Medrol 60 m g and IV Lasix 40 mg Also patient placed on broad-spectrum antibiotic with Zosyn besides her Valtrex and Lyrica for her herpes rash of the right upper extremity which is currently improved significantly. Patient still complaining from pain but improved from last week Also patient on Farxiga and metoprolol Other vitals look stable, she is mildly tachycardic but afebrile. WBC is 13 and hemoglobin stable at 8.7. Chest x-ray showing bilateral infiltrate 08/02/2023 Patient is tachypneic today. She still needs 40 L/min of oxygen like yesterday No other new complaints She remains on IV Solu-Medrol, Zosyn and IV Lasix 40 mg every 8 hours Also she is on Valtrex and Lyrica which is improving her herpes infection 08/03/2023 Patient breathing is similar to yesterday, she is only mildly tachypneic at rest, no respiratory distress, she does freely She is still on 40 L oxygen via high flow nasal cannula No other new complaints She remains on IV Lasix 40 mg every 8 hours, IV Solu-Medrol 60 mg and Zosyn. She is currently not on anticoagulation BX showed respiratory alkalosis with elevated pCO2 57 08/04/2023 Patient remains in the ICU She is still on 40 L oxygen She is still on IV Lasix, IV Solu-Medrol and Zosyn No chest pain no new complaint 08/05/2023 patient showed some improvement in her breathing today with oxygen requirement came down from 40 L/min down to 35 L/min for the first time in a few days No other new complaints. However she kept on IV Lasix 40 mg every 8 hours and Zosyn Also she is on Lyrica and shingles rash significantly improved 08/06. Patient seen and examined. Patient oxygen requirements has slightly worsened, currently requiring up to 7 L of oxygen. States she does not feel worse REVIEW OF SYSTEMS: CONSTITUTIONAL: No fever, no malaise,. CARDIOVASCULAR: No chest pain, no palpitations, no syncope. PULMONARY: As mentioned above, GASTROINTESTINAL: No diarrhea, no nausea, no vomiting, no abdominal pain. NEUROLOGICAL: No headaches, no weakness, PHYSICAL EXAMINATION: GENERAL: The patient is alert and oriented x3, not in any acute distress. Well developed, well nourished. HEENT: Pupils are round and equally reacting to light. EOMI. No scleral icterus. No conjunctival pallor. Normocephalic, atraumatic. No pharyngeal erythema. No thyromegaly. CARDIOVASCULAR: S1 and S2 present. PULMONARY: Coarse breath sound bilaterally, no wheezing or crackles. ABDOMEN: Soft, nontender, nondistended, normoactive bowel sounds. No palpable organomegaly. MUSCULOSKELETAL: No joint swelling or deformity. EXTREMITIES: No cyanosis, clubbing, or pedal edema. NEUROLOGICAL: Gross neurological examination did not reveal any focal deficits. SKIN: Rash on right arm has improved Assessment and plan Right shoulder pain/chest pain with right upper extremity rash along the medial side, shingles Non-STEMI, status post cardiac catheterization with no progression of CAD Coronary artery disease with previous PCI, most recently March 2023 with PCI of the proximal RCA Ischemic cardiomyopathy, ejection fraction 45%, with improved EF now 60 to 65% Severe aortic stenosis Mild pulmonary hypertension Acute COPD exacerbation. Significantly improved acute on chronic hypoxic respiratory failure. Resolved Atrial tachycardia with short MO interval Coronary artery disease s/p stent History of arctic stenosis s/p TAVR Obesity with BMI of 36.6 History of depression and anxiety, no acute process. Hypertension Hyperlipidemia Plan: Monitor vital sign Monitor CBC Monitor CMP s/p balloon aortic valvuloplasty with a 28mm Z Med balloon on 07/27. Continue prednisone burst taper currently on 40 mg p.o. daily Continue Eraxis IV Zosyn Continue IV Lasix 40 mg every 8 hours Continue breathing treatment and bronchodilator Cardiology following,patient is not a candidate for surgical intervention and TAVR procedure is complicated by enlarged ascending aorta CT surgery following ID following Labs and medication were reviewed.. Continue same treatment. Continue with symptomatic treatment. Resume home medication. Monitor labs and vitals. DVT and GI prophylaxis. Further recommendations as per clinical course of the patient Dictation was produced using [email or web address] dictation software. please excuse any grammatical, word or spelling errors. Objective - Vital Signs Vital signs: Vital Signs Temp 97.8 F 08/07/23 08:45 Pulse 71 08/07/23 08:45 Resp 22 08/07/23 08:45 BP 102/67 08/07/23 08:45 Pulse Ox 93 L 08/07/23 08:45 FiO2 40 08/06/23 07:23 Intake & Output 08/06/23 08/07/23 08/07/23 18:59 06:59 18:59 Intake Total 780 0 Output Total 2650 Balance -1870 0 Weight 89 kg Intake: IV 300 KVO 100 Piperacillin-Tazobactam 3 200 .375 gm In Sodium Chloride 0.9% 100 ml @ 25 mls/hr IVPB Q8HR [facility] Rx# :[id number] Oral 480 0 Output: Urine 2650 Other: Voiding Method Bedside Commode Bedside Commode # Bowel Movements 2 - Labs CBC & Chem 7: 08/06/23 03:33 08/06/23 03:33 Labs: Abnormal Lab Results - Last 24 Hours (Table) 08/06/23 08/06/23 08/07/23 Range/Units 16:34 20:22 06:08 POC Glucose (mg/dL) 350 H 256 H 120 H (70-110) mg/dL
[2023-08-07] MEDS: ANIDULAFUNGIN 100 MG in SODIUM CHLORIDE 0.9% 100 ML IVPB SCH (14:52)
--- NOTE | 2023-08-07 16:50 | P.PN ---
Subjective Progress Note Date: 08/07/23 63-year-old female well-known to our service. The patient has a history of chronic hypoxemic respiratory failure secondary to COPD, and is chronically oxygen dependent. The patient presented to the emergency room, on July 23, complaining of chest pain. The pain apparently was on the right side of her c hest, and radiated into her right arm. The pain started on the prior . The patient does have a history of coronary disease, and has had stents placed in the last year. In addition, she admits to chronic shortness of breath, secondary to her severe COPD. The patient did go to the catheterization laboratory on July 23, and was found to have a 40 to 50% stenosis, in the mid LAD, with a patent proximal RCA stent. In addition, on echocardiogram, the patient was found to have severe aortic stenosis, with a valve surface area of 1.6 cm, and a gradient across the aortic valve, of 100 mmHg. The patient underwent a valvuloplasty by cardiology. On today's evaluation of 07/31/2023, the patient is being seen for a follow-up. The patient is calm and comfortable. She is still having oxygen saturations on high flow oxygen and the patient will be placed on Airvo to maintain an oxygen saturation above 90%. The patient has advanced COPD and the patient is typically on oxygen at 5 L at baseline. The patient is also developed a right lower lobe consolidation consistent with pneumonia and the patient remains on IV Zosyn. Earlier, the patient was not nonabrasive fullface mask and the patient will be switched to Airvo. IV fluids are currently at KVO. The procalcitonin level is at 0.14. Hemodynamically stable and the patient is on no pressors. White cell count at 13.4 with a hemoglobin 9.2 and a platelet count of 254. BUN is at 17 with a creatinine of 0.8 and a sodium levels at 137. Potassium level is at 3.8. The patient is receiving Lasix 40 mg p.o. daily. The patient is on prednisone 5 mg p.o. daily. The patient also has developed shingles in the right upper extremity and the patient is currently on Valtrex. Remains on DuoNeb updrafts. Remains on a combination of Perforomist and Pulmicort updrafts twice a day. As mentioned, chest x-ray showing a right lower lobe consolidation. On today's evaluation of 08/01/2023, the patient is essentially the same as yesterday. No significant changes in terms of her oxygenation. The patient remains on Airvo 40 L with FiO2 of 50%. No fever. No chills. Using incentive spirometer. No chest pain. No signs of any CO2 narcosis or altered mentation. Blood work from today shows a WBC count of 13 with a hemoglobin 8.7 and a platelet count of 272. Sodium is at 137 with a potassium level of 3.2, bicarb is at 39 with a BUN of 15 and a creatinine of 0.7. Fluid balance over the past 24 hours is -2.6 L and the patient is headed towards another 2.5 L negative in terms of her fluid balance over the next 24 hours. The patient remains on bronchodilators. The patient remains on IV Solu-Medrol 40 mg every 6 hours. The patient remains on IV Zosyn. The patient remains on Lasix 40 mg IV every 8 hours. A repeat chest x-ray was also done today and the findings are essentially showing background COPD with some improvement in the residual coarse infiltration in the right mid and right lower lobe area. 08/22/2023, the patient remains on Airvo 40 L with FiO2 of 50%. No major improvement in oxygenation and the patient continues to desaturate once FiO2 is dropped down to 40%. Nevertheless, she feels, comfortable without having any significant shortness of breath at rest. No significant sputum production. No fever or chills. She continues to make excellent urine output. Fluid balance has been negative another 2.5 L over the past 24 hours and the patient is being diuresed with Lasix 40 mg IV every 8 hours. The patient remains on DuoNeb updrafts. The patient remains on Solu-Medrol 40 mg every 6 hours. Breath sounds are quite diminished and there is no significant bronchospasm or wheezing. Repeat chest x-ray was done today and the patient was found to have limited patchy infiltrates in the right midlung in the right lower lung which continues to improve on repeated chest x-rays. WBC count of 12.4 with a hemoglobin 9.2 and a platelet count of 220. BUN is 22 with a creatinine of 0.8 and a sodium levels of 138 with a potassium level of 3.3. K level is being replaced. She remains on IV Zosyn. She remains on oral Valtrex. Shingles is being treated and the skin lesions are all stable. 08/03/2023, the patient feels well. She denies having any specific complaints. She is feeling better in terms of her breathing. Unfortunately, no significant improvement in the patient's oxygenation. The patient remains on 40 L with FiO2 of 50%.Okay make sure your white cell count is coming down okay chest x-ray findings are essentially stable with cardiomegaly and a stable right lower lobe pulmonary infiltrates. Fluid balance remains negative and the patient is in negative fluid balance of 1.4 L over the past 24 hours. She remains on Lasix 40 mg every 8 hours. She remains on Zosyn. She remains on IV Solu-Medrol 40 mg every 6 hours. She remains on bronchodilators. The patient has no significant cough or sputum production. No major edema in lower extremities. Repeat echocardiogram following the valvuloplasty showed improvement in the overall gradient through the aortic valve and gradients dropped from 75 down to 38. Continues to have mild to moderate mitral regurgitation. White cell count is 16.6 with a hemoglobin 9.4 and a platelet count of 346. Serum bicarb is at 42 with a sodium level of 139 and a potassium level of 3.4. BUN is at 33 with a creatinine of 0.96. Cardiac rhythm is sinus. Blood gas was done and it continues to show hypoxemia with a pO2 of 57. She has well compensated chronic hypercapnic respiratory failure. 08/04/2023, the patient remains on 40 L with an FiO2 of 50%, Airvo system. Noted the patient is diuresing adequately and the patient has been negative fluid balance. Repeat chest x-ray shows an area of consolidation of the right lower lobe. However the original CAT scan of the chest was done at time of admission showed no significant consolidation of the right lung base. I am going to repeat a CT angiogram to further explain the ongoing hypoxemia. The patient is post aortic valve valvuloplasty. The patient remains on Zosyn.Denies having any other complaints. The white cell count of 18 with a hemoglobin 9.4, BUN is at 35 with a creatinine of 1.07 and sodium levels of 138. Awake and alert and communicating. Remains on DuoNeb updrafts. Remains on IV Solu-Medrol 40 mg every 6 hours. Remains on Lasix 40 mg IV every 8 hours. Remains on IV Zosyn. On today's evaluation of 08/05/2023, patient is being seen for a follow-up. Ricky rating the diuresis well. Oxygenation is improved since yesterday. The patient is currently on 35 L with an FiO2 of 35%. Fluid balance over the past 24 hours has been in the order of -3.8 L. Will continue diuresis as long as the patient continues to produce excellent amount of urine output. There is somewhat improvement in oxygenation. Clinically stable. Chest x-ray findings are essentially stable. There is improvement in the right basilar pulmonary infiltration. I wanted to do a CT angiogram of the chest yesterday. The patient declined the testing. WBC count at 18.8 and hemoglobin 9.6. Serum bicarb is at 41, BUN is 43 with a creatinine of 1.02 and a sodium level is at 139. The patient is awake and alert. Denies any specific complaints. She remains hemodynamically stable. No hypotension. No significant electrolyte abnormalities. On today's evaluation of 08/06/2023, no new complaints and the patient remains on Airvo 35 L with an FiO2 of 40%. Chest x-ray shows no interval change. Findings are essentially stable. Denies having interval worsening shortness of breath. The patient is on IV Lasix. Fluid balance -1.3 L over the past 24 hours. The patient's creatinine today is slightly elevated at 1.24 with a BUN of 48 and sodium of 136. She remains on IV Lasix 40 mg every 8 hours. The white cell count is gradually on the rise and the white cell count is up to 21.2 with a hemoglobin of 9.9. She remains on IV Zosyn. She is currently on oral prednisone. Rest of the medications remain unchanged. She remains on DuoNeb updrafts, she remains on Perforomist and Pulmicort. The patient is seen today August 07, 2023 in follow-up on the selective care unit. She is currently sitting up in bed. Awake and alert no acute distress. She is maintaining O2 saturations in the 90s on 8 L high flow nasal cannula. She denies any worsening shortness of breath, cough or congestion. No chest pain or palpitations. She is anxious to go home. Today's chest x-ray reveals no acute pulmonary process. Blood sugar 120. She is currently on Zosyn and Eraxis. Prednisone taper. Continued on DuoNeb inhalations, Pulmicort and Perforomist inhalations. Remains on IV diuretics. Currently in a -1.8 L balance. Objective - Vital Signs Vital signs: Vital Signs Temp 97.8 F 08/07/23 08:45 Pulse 88 08/07/23 15:35 Resp 22 08/07/23 11:40 BP 117/66 08/07/23 11:40 Pulse Ox 93 L 08/07/23 11:40 FiO2 40 08/06/23 07:23 Intake & Output 08/06/23 08/07/23 08/07/23 18:59 06:59 18:59 Intake Total 780 0 580 Output Total 2650 Balance -1870 0 580 Weight 89 kg Intake: IV 300 100 KVO 100 Piperacillin-Tazobactam 3 200 100 .375 gm In Sodium Chloride 0.9% 100 ml @ 25 mls/hr IVPB Q8HR [facility] Rx# :[id number] Oral 480 0 480 Output: Urine 2650 Other: Voiding Method Bedside Commode Bedside Commode # Bowel Movements 2 - Exam GENERAL EXAM: Alert, pleasant 63-year-old female, on 8 L high flow nasal cannula, comfortable in no apparent distress. HEAD: Normocephalic. EYES: Normal reaction of pupils, equal size. NOSE: Clear with pink turbinates. THROAT: No erythema or exudates. NECK: No masses, no JVD. CHEST: No chest wall deformity. LUNGS: Equal air entry with no crackles, wheeze, rhonchi or dullness. CVS: S1 and S2 normal with no audible murmur, regular rhythm. ABDOMEN: No hepatosplenomegaly, normal bowel sounds, no guarding or rigidity. SPINE: No scoliosis or deformity SKIN: No rashes CENTRAL NERVOUS SYSTEM: No focal deficits, tone is normal in all 4 extremities. EXTREMITIES: There is no peripheral edema. No clubbing, no cyanosis. Peripheral pulses are intact. - Labs CBC & Chem 7: 08/06/23 03:33 08/06/23 03:33 Labs: Abnormal Lab Results - Last 24 Hours (Table) 08/06/23 08/07/23 08/07/23 Range/Units 20:22 06:08 11:32 POC Glucose (mg/dL) 256 H 120 H 237 H (70-110) mg/dL Assessment and Plan Assessment: Acute on chronic hypoxic respiratory failure. Typically the patient is on 5 L of oxygen by nasal cannula. The patient is currently on Airvo responding to the diuresis and the patient is currently on 35 L with an FiO2 of 40%. No significant respiratory distress at rest. Continues to have some desaturation with activity. Nevertheless, she has responded to diuresis. Oxygenation is gradually improving after being stable for several days. Negative fluid balance as mentioned. Chest x-ray findings are essentially unchanged. Coronary artery disease, involving the LAD, with 40 to 50% stenosis, and a pa tent proximal RCA stent. Severe aortic stenosis with a valve surface area of 0.6 cm, S/P BVP, July 28, 2023, postop day # 9 Acute kidney injury with a creatinine of 1.26 probably due to aggressive diuresis. Right lower lobe consolidation/pneumonia, consider hospital-acquired pneumonia versus aspiration., Stable right lower lobe pulmonary infiltrate on IV Zosyn. chronic hypoxemic and hypercapnic respiratory failure, secondary to COPD. Shingles involving the right upper extremity currently on Valtrex History of hyperlipidemia. History of hypertension. History of chronic low back pain. Obesity. Aortic valve stenosis. History of tracheobronchitis. Prior history of heavy tobacco use. Plan: The patient was seen and evaluated Chest x-ray, labs and medications reviewed Titrate down the FiO2 as tolerated Home once cleared by cardiology We will continue to follow I have personally seen and examined the patient, performed the documentation and the assessment and plan as written. Number of minutes spent on the visit: 10.
[2023-08-07 17:31] LABS: Glucose,Whole Blood 457 mg/dL (70-110)
[2023-08-07 19:56] LABS: Glucose,Whole Blood 366 mg/dL (70-110)
--- NOTE | 2023-08-07 21:40 | P.PN ---
Subjective This is a pleasant 62 years old female with past medical history of multiple medical problems including COPD and chronic hypoxic respiratory failure on 5 L oxygen at home and she follows up with Dr. MACARIO for her COPD. Other medical problems including aortic stenosis status post TAVR, coronary artery disease s/p stent and depression and anxiety. Patient presents because of pain in her right shoulder radiating to her right arm and right chest for a few days since , 110/10 in severity, no history of trauma or fall. Pain described as nonspecific with no precipitating or relieving factors. She denies dyspnea she has dry cough. She is using 5 L of oxygen at home. No change in urine or bowel habits. No headache dizziness weakness or numbness. She denies current smoking alcohol or illicit drugs Patient is hemodynamically stable, afebrile She has unremarkable CBC, INR, BMP, liver enzymes, lipase Troponin is elevated 0.04 Chest x-ray is negative for acute process EKG showing atrial tachycardia with short MD interval but no significant ST-T changes. 07/25/2023 Patient is status post cardiac cath yesterday showing mid LAD stenosis 40-50% with patent RCA stent, also shows evidence of severe aortic stenosis, therefore cardiothoracic surgery team were consulted however patient is known not to follow-up on patient, as confirmed with the patient and daughter at bedside today who states that her mom usually go home call Dr. trejo isn't canceled her appointment and she does not follow up Further workup per cardiothoracic surgery team is requested here On admission yesterday she has limited air entry and she was placed on IV Solu- Medrol or acute COPD exacerbation, whiletoday air flow is much better although she has scattered wheezing and she still mildly tachypneic and therefore we consulted pulmonary service currently she is placed on prednisone 5 mg. she is to have mild to moderate right shoulder pain mostly related to her cardiac disease. Some elements of osteoarthritis. her heparin drip was stopped , 07/26/2023 Patient breathing is better, no chest pain today But she still complaining from more severe right shoulder pain. Patient has this pain improved with the steroids but when switched to oral prednisone 5 mg the pain increased today again. She has more rash in her medial arm and forearm and the arm. For short distance with maculopapular rash with possible some vesicles been forming with the pain and tenderness goes with the rash and around it, signs suspicious for shingles. Therefore we are going to start her on [place] for pain management and valacyclovir and asked ID team to reevaluate. Also will put on isolation till cleared. She is hemodynamically stable She is being evaluated by cardiothoracic surgery team as well. 07/27/2023 Patient is awake and alert she denies chest pain but she still complaining from right shoulder pain and neuropathic pain along her rash in the right armpit and the surrounding skin down to the left wrist along the medial side, rash is getting somewhat crusted partially. Breathing is stable However through the day her blood pressure became on the low side She is getting normal saline running at 90 mL/h Cardiology team and planning for balloon valvuloplasty for her severe aortic stenosis She is currently covered with valacyclovir, Lyrica, prednisone 5 mg Oral Lasix and Farxiga 08/01/2023 Patient looks comfortable somewhat but mildly tachypneic, she had aortic valve procedure valvoplasty for her severe aortic stenosis and that improved her blood pressure but patient had decompensated pulmonary function and developed acute COPD exacerbation and fluid overload and currently she is on IV Solu-Medrol 60 mg and IV Lasix 40 mg Also patient placed on broad-spectrum antibiotic with Zosyn besides her Valtrex and Lyrica for her herpes rash of the right upper extremity which is currently improved significantly. Patient still complaining from pain but improved from last week Also patient on Farxiga and metoprolol Other vitals look stable, she is mildly tachycardic but afebrile. WBC is 13 and hemoglobin stable at 8.7. Chest x-ray showing bilateral infiltrate 08/02/2023 Patient is tachypneic today. She still needs 40 L/min of oxygen like yesterday No other new complaints She remains on IV Solu-Medrol, Zosyn and IV Lasix 40 mg every 8 hours Also she is on Valtrex and Lyrica which is improving her herpes infection 08/03/2023 Patient breathing is similar to yesterday, she is only mildly tachypneic at rest, no respiratory distress, she does freely She is still on 40 L oxygen via high flow nasal cannula No other new complaints She remains on IV Lasix 40 mg every 8 hours, IV Solu-Medrol 60 mg and Zosyn. She is currently not on anticoagulation BX showed respiratory alkalosis with elevated pCO2 57 08/04/2023 Patient remains in the ICU She is still on 40 L oxygen She is still on IV Lasix, IV Solu-Medrol and Zosyn No chest pain no new complaint 08/05/2023 patient showed some improvement in her breathing today with oxygen requirement came down from 40 L/min down to 35 L/min for the first time in a few days No other new complaints. However she kept on IV Lasix 40 mg every 8 hours and Zosyn Also she is on Lyrica and shingles rash significantly improved 08/06/2023 Patient feels better Oxygen requirement down from 35 L/min into 10 L/min this morning No new complaint Patient may be transferred out of ICU today Objective - Vital Signs Vital signs: Vital Signs Temp 98.3 F 08/06/23 15:16 Pulse 68 08/06/23 15:25 Resp 22 08/06/23 15:16 BP 137/59 08/06/23 15:16 Pulse Ox 95 08/06/23 15:34 FiO2 40 08/06/23 07:23 Intake & Output 08/05/23 08/06/23 08/06/23 18:59 06:59 18:59 Intake Total 720 280 780 Output Total 0136 179 8899 Balance -1182 -170 -1870 Intake: IV 320 40 300 KVO 120 40 100 Piperacillin-Tazobactam 3 200 200 .375 gm In Sodium Chloride 0.9% 100 ml @ 25 mls/hr IVPB Q8HR [facility] Rx# :[id number] Oral 400 240 480 Output: Urine 3641 396 3680 Stool 2 Other: Voiding Method Bedside Commode Bedside Commode # Bowel Movements 2 - Exam GENERAL: The patient is alert and oriented x3, not in any acute distress. Well developed, well nourished. HEENT: Pupils are round and equally reacting to light. EOMI. No scleral icterus. No conjunctival pallor. Normocephalic, atraumatic. No pharyngeal erythema. No thyromegaly. CARDIOVASCULAR: S1 and S2 present. No murmurs, rubs, or gallops. -PULMONARY: Chest is clear to auscultation, scattered wheezing , no crackles. ABDOMEN: Soft, nontender, nondistended, normoactive bowel sounds. No palpable organomegaly. MUSCULOSKELETAL: No joint swelling or deformity. EXTREMITIES: No cyanosis, clubbing, or pedal edema. NEUROLOGICAL: Gross neurological examination did not reveal any focal deficits. SKIN: No rashes. no petechiae. - Labs CBC & Chem 7: 08/06/23 03:33 08/06/23 03:33 Labs: Abnormal Lab Results - Last 24 Hours (Table) 08/05/23 08/06/23 08/06/23 Range/Units 20:13 03:33 03:33 WBC 21.2 H (3.8-10.6) k/uL RBC 3.27 L (3.80-5.40) m/uL Hgb 9.9 L (11.4-16.0) gm/dL Hct 32.1 L (34.0-46.0) % MCHC 30.8 L (31.0-37.0) g/dL Neutrophils # 18.5 H (1.3-7.7) k/uL Monocytes # 1.2 H (0-1.0) k/uL Sodium 136 L (137-145) mmol/L Chloride 89 L (98-107) mmol/L Carbon Dioxide 45 H* (22-30) mmol/L BUN 48 H (7-17) mg/dL Creatinine 1.24 H (0.52-1.04) mg/dL Glucose 206 H (74-99) mg/dL POC Glucose (mg/dL) 346 H (70-110) mg/dL 08/06/23 08/06/23 08/06/23 Range/Units 07:02 10:59 16:34 WBC (3.8-10.6) k/uL RBC (3.80-5.40) m/uL Hgb (11.4-16.0) gm/dL Hct (34.0-46.0) % MCHC (31.0-37.0) g/dL Neutrophils # (1.3-7.7) k/uL Monocytes # (0-1.0) k/uL Sodium (137-145) mmol/L Chloride (98-107) mmol/L Carbon Dioxide (22-30) mmol/L BUN (7-17) mg/dL Creatinine (0.52-1.04) mg/dL Glucose (74-99) mg/dL POC Glucose (mg/dL) 170 H 174 H 350 H (70-110) mg/dL Assessment and Plan Assessment: Right shoulder pain/chest pain with right upper extremity rash along the medial side, shingles severe aortic stenosis, status post aortic valvuloplasty Acute CHF exacerbation. Cannot rule out pneumonia Acute COPD exacerbation. Mildly acute on chronic hypoxic respiratory failure. Resolved Atrial tachycardia with short MD interval Coronary artery disease s/p stent History of arctic stenosis s/p TAVR Obesity with BMI of 36.6 History of depression and anxiety, no acute process. Plan: Start valacyclovir, Lyrica, And ID consult Continue with Zosyn Continue with IV Lasix Continue with prednisone and DC IV Solu-Medrol Continue with aspirin Cardiology consult, with plan for possible balloon valvuloplasty cardiothoracic consult patient and kiahter at bed side were counseled about the importance of follow- up with appointment prednisone 5 mg daily Continue breathing treatment and bronchodilator Labs and medication were reviewed.. Continue same treatment. Continue with symptomatic treatment. Resume home medication. Monitor labs and vitals. DVT and GI prophylaxis. Further recommendations as per clinical course of the patient DVT prophylaxis: Subcutaneous heparin GI Prophylaxis: Pepcid Prognosis is guarded
[2023-08-08 06:09] LABS: Glucose,Whole Blood 324 mg/dL (70-110)
[2023-08-08 11:24] LABS: Glucose,Whole Blood 150 mg/dL (70-110)
--- NOTE | 2023-08-08 12:15 | P.PN ---
Subjective Progress Note Date: 08/08/23 Principal diagnosis: Reason for follow-up is right T10 dermatome shingles Patient is a 63-year-old female past medical history significant for COPD coronary artery disease NE former smoker presenting to the hospital for evaluation of chest pain on the right side of her chest and is also complaining of pain to the right upper arm, patient did develop a rash prompting this consultation and has been diagnosed with shingles. On today's evaluation that is 08/08/2023, the patient continues to be afebrile, the patient is on 7 L nasal cannula oxygen however mention breathing comfortably, the Pt denies having any chest pain or cough, the patient denies having any abdominal pain no vomiting or any diarrhea has been reported by the nursing staff. No new labs were obtained today Objective - Vital Signs Vital signs: Vital Signs Temp 98.1 F 08/08/23 11:37 Pulse 57 L 08/08/23 11:37 Resp 18 08/08/23 11:37 BP 136/78 08/08/23 11:37 Pulse Ox 94 L 08/08/23 11:37 FiO2 40 08/06/23 07:23 Intake & Output 08/07/23 08/08/23 08/08/23 18:59 06:59 18:59 Intake Total 940 120 0 Output Total 602 Balance 940 -482 0 Weight 89.5 kg Intake: IV 100 Piperacillin-Tazobactam 3 100 .375 gm In Sodium Chloride 0.9% 100 ml @ 25 mls/hr IVPB Q8HR [facility] Rx# :[id number] Oral 840 120 0 Output: Urine 600 Stool 2 Other: Voiding Method Bedside Commode Bedside Commode # Voids 1 - Exam GENERAL DESCRIPTION: Middle-aged female lying in bed in no distress RESPIRATORY SYSTEM: Unlabored breathing , decreased breath sounds at bases HEART: S1 S2 regular rate and rhythm , ABDOMEN: Soft , no tenderness EXTREMITIES: Right upper extremity vesicular rash has dried out - Labs CBC & Chem 7: 08/06/23 03:33 08/06/23 03:33 Labs: Abnormal Lab Results - Last 24 Hours (Table) 08/07/23 08/07/23 08/08/23 Range/Units 17:27 19:54 06:06 POC Glucose (mg/dL) 457 H 366 H 324 H (70-110) mg/dL 08/08/23 Range/Units 11:23 POC Glucose (mg/dL) 150 H (70-110) mg/dL Assessment and Plan (1) Zoster Current Visit: Yes Status: Acute Code(s): B02.9 - ZOSTER WITHOUT COMPLICATIONS SNOMED Code(s): 7676229 (2) Leukocytosis Current Visit: Yes Status: Acute Code(s): D72.829 - ELEVATED WHITE BLOOD CELL COUNT, UNSPECIFIED SNOMED Code(s): 479167893 (3) Pneumonia Current Visit: No Status: Acute Code(s): J18.9 - PNEUMONIA, UNSPECIFIED O RGANISM SNOMED Code(s): 845620059 Plan: 1patient presented to hospital with pain to the right side of the chest and right upper extremity not developing a rash which is a following T1 dermatome likely herpes zoster with no evidence of any secondary cellulitis 2-patient rash to the right upper arm decreased in intensity no evidence of cellulitis, patient to continue with Valtrex 1 g every 8 hours to finish 7-day course of therapy along with Lyrica for postherpetic neuralgia, 3-leukocytosis with a right perihilar infiltrate concerning for possible nosocomial pneumonia, the patient is afebrile and patient has completed a 10-day course of Zosyn completed as of 08/07/2023 4- worsening white count could be related to steroids versus oropharyngeal candidiasis, patient to continue with Eraxis and nystatin swish and swallow CBC has been ordered results will be followed Dictation was produced using [employer] dictation software. please excuse any grammatical, word or spelling errors. Time with Patient: Less than 30
[2023-08-08 12:25] LABS: HCT 37.2 % (34.0-46.0); HGB 11.5 gm/dL (11.4-16.0); Hypochromasia Slight; MCH 30.4 pg (25.0-35.0); MCHC 30.8 g/dL (31.0-37.0); MCV 98.9 fL (80.0-100.0); Macrocytosis Slight; Mean Platelet Volume 7.5; Platelet Count 390 k/uL (150-450); RBC 3.77 m/uL (3.80-5.40); RDW 15.3 % (11.5-15.5); WBC 26.3 k/uL (3.8-10.6)
--- NOTE | 2023-08-08 13:52 | P.PN ---
Subjective Progress Note Date: 08/08/23 This is a pleasant 62 years old female with past medical history of multiple medical problems including COPD and chronic hypoxic respiratory failure on 5 L oxygen at home and she follows up with Dr. MACARIO for her COPD. Other medical problems including aortic stenosis status post TAVR, coronary artery disease s/p stent and depression and anxiety. Patient presents because of pain in her right shoulder radiating to her right arm and right chest for a few days since , 110/10 in severity, no histor y of trauma or fall. Pain described as nonspecific with no precipitating or relieving factors. She denies dyspnea she has dry cough. She is using 5 L of oxygen at home. No change in urine or bowel habits. No headache dizziness weakness or numbness. She denies current smoking alcohol or illicit drugs Patient is hemodynamically stable, afebrile She has unremarkable CBC, INR, BMP, liver enzymes, lipase Troponin is elevated 0.04 Chest x-ray is negative for acute process EKG showing atrial tachycardia with short IN interval but no significant ST-T changes. 07/25/2023 Patient is status post cardiac cath yesterday showing mid LAD stenosis 40-50% with patent RCA stent, also shows evidence of severe aortic stenosis, therefore cardiothoracic surgery team were consulted however patient is known not to follow-up on patient, as confirmed with the patient and daughter at bedside today who states that her mom usually go home call Dr. trejo isn't canceled her appointment and she does not follow up Further workup per cardiothoracic surgery team is requested here On admission yesterday she has limited air entry and she was placed on IV Solu- Medrol or acute COPD exacerbation, whiletoday air flow is much better although she has scattered wheezing and she still mildly tachypneic and therefore we consulted pulmonary service currently she is placed on prednisone 5 mg. she is to have mild to moderate right shoulder pain mostly related to her cardiac disease. Some elements of osteoarthritis. her heparin drip was stopped , 07/26/2023 Patient breathing is better, no chest pain today But she still complaining from more severe right shoulder pain. Patient has this pain improved with the steroids but when switched to oral prednisone 5 mg the pain increased today again. She has more rash in her medial arm and forearm and the arm. For short distance with maculopapular rash with possible some vesicles been forming with the pain and tenderness goes with the rash and around it, signs suspicious for shingles. Therefore we are going to start her on [place] for pain management and valacyclovir and asked ID team to reevaluate. Also will put on isolation till cleared. She is hemodynamically stable She is being evaluated by cardiothoracic surgery team as well. 07/27/2023 Patient is awake and alert she denies chest pain but she still complaining from right shoulder pain and neuropathic pain along her rash in the right armpit and the surrounding skin down to the left wrist along the medial side, rash is getting somewhat crusted partially. Breathing is stable However through the day her blood pressure became on the low side She is getting normal saline running at 90 mL/h Cardiology team and planning for balloon valvuloplasty for her severe aortic stenosis She is currently covered with valacyclovir, Lyrica, prednisone 5 mg Oral Lasix and Farxiga 07/27. Patient seen examined. States right shoulder pain has improved, lesions on the right arm has improved. 07/28. Patient seen and examined. s/p balloon aortic valvuloplasty with a 28mm Z Med balloon on 07/27. Currently on 15 L of oxygen. Critical care ordered 1 dose of 60 mg of Lasix IV 07/29. Patient seen and examined. Currently sitting up in the chair, states she feels better compared to yesterday. Currently on 15 L of oxygen. Critical care have ordered 60 mg of IV Lasix. 07/30. Patient seen and examined. Vital signs this morning temp temperature afebrile, heart rate 79, respirate 17, blood pressure 93/61, currently on Air[place] at 45 L of oxygen. Blood work done this morning showed WBC 13.4, hemoglobin 9.2, platelet count 254, sodium 137, potassium 3.2, BUN 17, creatinine 0.8. Potassium placement ordered. Cardiology following, recommended patient is not a candidate for surgical intervention and TAVR procedure is complicated by enlarged ascending aorta. 08/01/2023 Patient looks comfortable somewhat but mildly tachypneic, she had aortic valve procedure valvoplasty for her severe aortic stenosis and that improved her blood pressure but patient had decompensated pulmonary function and developed acute COPD exacerbation and fluid overload and currently she is on IV Solu-Medrol 60 m g and IV Lasix 40 mg Also patient placed on broad-spectrum antibiotic with Zosyn besides her Valtrex and Lyrica for her herpes rash of the right upper extremity which is currently improved significantly. Patient still complaining from pain but improved from last week Also patient on Farxiga and metoprolol Other vitals look stable, she is mildly tachycardic but afebrile. WBC is 13 and hemoglobin stable at 8.7. Chest x-ray showing bilateral infiltrate 08/02/2023 Patient is tachypneic today. She still needs 40 L/min of oxygen like yesterday No other new complaints She remains on IV Solu-Medrol, Zosyn and IV Lasix 40 mg every 8 hours Also she is on Valtrex and Lyrica which is improving her herpes infection 08/03/2023 Patient breathing is similar to yesterday, she is only mildly tachypneic at rest, no respiratory distress, she does freely She is still on 40 L oxygen via high flow nasal cannula No other new complaints She remains on IV Lasix 40 mg every 8 hours, IV Solu-Medrol 60 mg and Zosyn. She is currently not on anticoagulation BX showed respiratory alkalosis with elevated pCO2 57 08/04/2023 Patient remains in the ICU She is still on 40 L oxygen She is still on IV Lasix, IV Solu-Medrol and Zosyn No chest pain no new complaint 08/05/2023 patient showed some improvement in her breathing today with oxygen requirement came down from 40 L/min down to 35 L/min for the first time in a few days No other new complaints. However she kept on IV Lasix 40 mg every 8 hours and Zosyn Also she is on Lyrica and shingles rash significantly improved 08/06. Patient seen and examined. Patient oxygen requirements has slightly worsened, currently requiring up to 7 L of oxygen. States she does not feel worse 08/07. Patient seen and examined. Ox requirements are still high, currently on 7 L of oxygen. Gets short of breath on exertion. REVIEW OF SYSTEMS: CONSTITUTIONAL: No fever, no malaise,. CARDIOVASCULAR: No chest pain, no palpitations, no syncope. PULMONARY: As mentioned above, GASTROINTESTINAL: No diarrhea, no nausea, no vomiting, no abdominal pain. NEUROLOGICAL: No headaches, no weakness, PHYSICAL EXAMINATION: GENERAL: The patient is alert and oriented x3, not in any acute distress. Well developed, well nourished. HEENT: Pupils are round and equally reacting to light. EOMI. No scleral icterus. No conjunctival pallor. Normocephalic, atraumatic. No pharyngeal erythema. No thyromegaly. CARDIOVASCULAR: S1 and S2 present. PULMONARY: Coarse breath sound bilaterally, no wheezing or crackles. ABDOMEN: Soft, nontender, nondistended, normoactive bowel sounds. No palpable organomegaly. MUSCULOSKELETAL: No joint swelling or deformity. EXTREMITIES: No cyanosis, clubbing, or pedal edema. NEUROLOGICAL: Gross neurological examination did not reveal any focal deficits. SKIN: Rash on right arm has improved Assessment and plan Right shoulder pain/chest pain with right upper extremity rash along the medial side, shingles Non-STEMI, status post cardiac catheterization with no progression of CAD Coronary artery disease with previous PCI, most recently March 2023 with PCI of the proximal RCA Ischemic cardiomyopathy, ejection fraction 45%, with improved EF now 60 to 65% Severe aortic stenosis Mild pulmonary hypertension Acute COPD exacerbation. Significantly improved acute on chronic hypoxic respiratory failure. Resolved Atrial tachycardia with short IN interval Coronary artery disease s/p stent History of arctic stenosis s/p TAVR Obesity with BMI of 36.6 History of depression and anxiety, no acute process. Hypertension Hyperlipidemia Plan: Monitor vital sign Monitor CBC Monitor CMP s/p balloon aortic valvuloplasty with a 28mm Z Med balloon on 07/27. Continue prednisone burst taper currently on 40 mg p.o. daily Continue Eraxis Completed course of IV Zosyn Continue IV Lasix 40 mg every 8 hours Continue breathing treatment and bronchodilator Cardiology following,patient is not a candidate for surgical intervention and TAVR procedure is complicated by enlarged ascending aorta CT surgery following ID following Labs and medication were reviewed.. Continue same treatment. Continue with symptomatic treatment. Resume home medication. Monitor labs and vitals. DVT and GI prophylaxis. Further recommendations as per clinical course of the patient Dictation was produced using [employer] dictation software. please excuse any grammatical, word or spelling errors. Objective - Vital Signs Vital signs: Vital Signs Temp 98.1 F 08/08/23 11:37 Pulse 57 L 08/08/23 11:37 Resp 18 08/08/23 11:37 BP 136/78 08/08/23 11:37 Pulse Ox 94 L 08/08/23 11:37 FiO2 40 08/06/23 07:23 Intake & Output 08/07/23 08/08/23 08/08/23 18:59 06:59 18:59 Intake Total 940 120 0 Output Total 602 1000 Balance 940 -482 -1000 Weight 89.5 kg Intake: IV 100 Piperacillin-Tazobactam 3 100 .375 gm In Sodium Chloride 0.9% 100 ml @ 25 mls/hr IVPB Q8HR [facility] Rx# :[id number] Oral 840 120 0 Output: Urine 600 1000 Stool 2 Other: Voiding Method Bedside Commode Bedside Commode Bedside Commode # Voids 1 # Bowel Movements 1 - Labs CBC & Chem 7: 08/08/23 12:13 08/06/23 03:33 Labs: Abnormal Lab Results - Last 24 Hours (Table) 08/07/23 08/07/23 08/08/23 Range/Units 17:27 19:54 06:06 WBC (3.8-10.6) k/uL RBC (3.80-5.40) m/uL MCHC (31.0-37.0) g/dL POC Glucose (mg/dL) 457 H 366 H 324 H (70-110) mg/dL 08/08/23 08/08/23 Range/Units 11:23 12:13 WBC 26.3 H (3.8-10.6) k/uL RBC 3.77 L (3.80-5.40) m/uL MCHC 30.8 L (31.0-37.0) g/dL POC Glucose (mg/dL) 150 H (70-110) mg/dL
--- NOTE | 2023-08-08 14:53 | P.PN ---
Subjective Progress Note Date: 08/08/23 63-year-old female well-known to our service. The patient has a history of chronic hypoxemic respiratory failure secondary to COPD, and is chronically oxygen dependent. The patient presented to the emergency room, on July 23, complaining of chest pain. The pain apparently was on the right side of her c hest, and radiated into her right arm. The pain started on the prior . The patient does have a history of coronary disease, and has had stents placed in the last year. In addition, she admits to chronic shortness of breath, secondary to her severe COPD. The patient did go to the catheterization laboratory on July 23, and was found to have a 40 to 50% stenosis, in the mid LAD, with a patent proximal RCA stent. In addition, on echocardiogram, the patient was found to have severe aortic stenosis, with a valve surface area of 1.6 cm, and a gradient across the aortic valve, of 100 mmHg. The patient underwent a valvuloplasty by cardiology. On today's evaluation of 07/31/2023, the patient is being seen for a follow-up. The patient is calm and comfortable. She is still having oxygen saturations on high flow oxygen and the patient will be placed on Airvo to maintain an oxygen saturation above 90%. The patient has advanced COPD and the patient is typically on oxygen at 5 L at baseline. The patient is also developed a right lower lobe consolidation consistent with pneumonia and the patient remains on IV Zosyn. Earlier, the patient was not nonabrasive fullface mask and the patient will be switched to Airvo. IV fluids are currently at KVO. The procalcitonin level is at 0.14. Hemodynamically stable and the patient is on no pressors. White cell count at 13.4 with a hemoglobin 9.2 and a platelet count of 254. BUN is at 17 with a creatinine of 0.8 and a sodium levels at 137. Potassium level is at 3.8. The patient is receiving Lasix 40 mg p.o. daily. The patient is on prednisone 5 mg p.o. daily. The patient also has developed shingles in the right upper extremity and the patient is currently on Valtrex. Remains on DuoNeb updrafts. Remains on a combination of Perforomist and Pulmicort updrafts twice a day. As mentioned, chest x-ray showing a right lower lobe consolidation. On today's evaluation of 08/01/2023, the patient is essentially the same as yesterday. No significant changes in terms of her oxygenation. The patient remains on Airvo 40 L with FiO2 of 50%. No fever. No chills. Using incentive spirometer. No chest pain. No signs of any CO2 narcosis or altered mentation. Blood work from today shows a WBC count of 13 with a hemoglobin 8.7 and a platelet count of 272. Sodium is at 137 with a potassium level of 3.2, bicarb is at 39 with a BUN of 15 and a creatinine of 0.7. Fluid balance over the past 24 hours is -2.6 L and the patient is headed towards another 2.5 L negative in terms of her fluid balance over the next 24 hours. The patient remains on bronchodilators. The patient remains on IV Solu-Medrol 40 mg every 6 hours. The patient remains on IV Zosyn. The patient remains on Lasix 40 mg IV every 8 hours. A repeat chest x-ray was also done today and the findings are essentially showing background COPD with some improvement in the residual coarse infiltration in the right mid and right lower lobe area. 08/22/2023, the patient remains on Airvo 40 L with FiO2 of 50%. No major improvement in oxygenation and the patient continues to desaturate once FiO2 is dropped down to 40%. Nevertheless, she feels, comfortable without having any significant shortness of breath at rest. No significant sputum production. No fever or chills. She continues to make excellent urine output. Fluid balance has been negative another 2.5 L over the past 24 hours and the patient is being diuresed with Lasix 40 mg IV every 8 hours. The patient remains on DuoNeb updrafts. The patient remains on Solu-Medrol 40 mg every 6 hours. Breath sounds are quite diminished and there is no significant bronchospasm or wheezing. Repeat chest x-ray was done today and the patient was found to have limited patchy infiltrates in the right midlung in the right lower lung which continues to improve on repeated chest x-rays. WBC count of 12.4 with a hemoglobin 9.2 and a platelet count of 220. BUN is 22 with a creatinine of 0.8 and a sodium levels of 138 with a potassium level of 3.3. K level is being replaced. She remains on IV Zosyn. She remains on oral Valtrex. Shingles is being treated and the skin lesions are all stable. 08/03/2023, the patient feels well. She denies having any specific complaints. She is feeling better in terms of her breathing. Unfortunately, no significant improvement in the patient's oxygenation. The patient remains on 40 L with FiO2 of 50%.Okay make sure your white cell count is coming down okay chest x-ray findings are essentially stable with cardiomegaly and a stable right lower lobe pulmonary infiltrates. Fluid balance remains negative and the patient is in negative fluid balance of 1.4 L over the past 24 hours. She remains on Lasix 40 mg every 8 hours. She remains on Zosyn. She remains on IV Solu-Medrol 40 mg every 6 hours. She remains on bronchodilators. The patient has no significant cough or sputum production. No major edema in lower extremities. Repeat echocardiogram following the valvuloplasty showed improvement in the overall gradient through the aortic valve and gradients dropped from 75 down to 38. Continues to have mild to moderate mitral regurgitation. White cell count is 16.6 with a hemoglobin 9.4 and a platelet count of 346. Serum bicarb is at 42 with a sodium level of 139 and a potassium level of 3.4. BUN is at 33 with a creatinine of 0.96. Cardiac rhythm is sinus. Blood gas was done and it continues to show hypoxemia with a pO2 of 57. She has well compensated chronic hypercapnic respiratory failure. 08/04/2023, the patient remains on 40 L with an FiO2 of 50%, Airvo system. Noted the patient is diuresing adequately and the patient has been negative fluid balance. Repeat chest x-ray shows an area of consolidation of the right lower lobe. However the original CAT scan of the chest was done at time of admission showed no significant consolidation of the right lung base. I am going to repeat a CT angiogram to further explain the ongoing hypoxemia. The patient is post aortic valve valvuloplasty. The patient remains on Zosyn.Denies having any other complaints. The white cell count of 18 with a hemoglobin 9.4, BUN is at 35 with a creatinine of 1.07 and sodium levels of 138. Awake and alert and communicating. Remains on DuoNeb updrafts. Remains on IV Solu-Medrol 40 mg every 6 hours. Remains on Lasix 40 mg IV every 8 hours. Remains on IV Zosyn. On today's evaluation of 08/05/2023, patient is being seen for a follow-up. Ricky rating the diuresis well. Oxygenation is improved since yesterday. The patient is currently on 35 L with an FiO2 of 35%. Fluid balance over the past 24 hours has been in the order of -3.8 L. Will continue diuresis as long as the patient continues to produce excellent amount of urine output. There is somewhat improvement in oxygenation. Clinically stable. Chest x-ray findings are essentially stable. There is improvement in the right basilar pulmonary infiltration. I wanted to do a CT angiogram of the chest yesterday. The patient declined the testing. WBC count at 18.8 and hemoglobin 9.6. Serum bicarb is at 41, BUN is 43 with a creatinine of 1.02 and a sodium level is at 139. The patient is awake and alert. Denies any specific complaints. She remains hemodynamically stable. No hypotension. No significant electrolyte abnormalities. On today's evaluation of 08/06/2023, no new complaints and the patient remains on Airvo 35 L with an FiO2 of 40%. Chest x-ray shows no interval change. Findings are essentially stable. Denies having interval worsening shortness of breath. The patient is on IV Lasix. Fluid balance -1.3 L over the past 24 hours. The patient's creatinine today is slightly elevated at 1.24 with a BUN of 48 and sodium of 136. She remains on IV Lasix 40 mg every 8 hours. The white cell count is gradually on the rise and the white cell count is up to 21.2 with a hemoglobin of 9.9. She remains on IV Zosyn. She is currently on oral prednisone. Rest of the medications remain unchanged. She remains on DuoNeb updrafts, she remains on Perforomist and Pulmicort. The patient is seen today August 07, 2023 in follow-up on the selective care unit. She is currently sitting up in bed. Awake and alert no acute distress. She is maintaining O2 saturations in the 90s on 8 L high flow nasal cannula. She denies any worsening shortness of breath, cough or congestion. No chest pain or palpitations. She is anxious to go home. Today's chest x-ray reveals no acute pulmonary process. Blood sugar 120. She is currently on Zosyn and Eraxis. Prednisone taper. Continued on DuoNeb inhalations, Pulmicort and Perforomist inhalations. Remains on IV diuretics. Currently in a -1.8 L balance. The patient is seen today August 08, 2023 in follow-up on the selective care unit. She is awake and alert in no acute distress. Sitting up in bed. Denies any worsening shortness of breath, cough or congestion. She is maintaining O2 saturations in the 90s on 7 L high flow nasal cannula. She remains afebrile. Hemodynamically stable. Blood culture revealed no growth. White count 26.3. Hemoglobin 11.5. Platelets 390. Glucose 150. She is currently on Eraxis. Prednisone taper. Continued on DuoNeb inhalations, Pulmicort and Perforomist inhalations. Remains on IV diuretics. Currently in a +450 mL balance. Objective - Vital Signs Vital signs: Vital Signs Temp 98.1 F 08/08/23 11:37 Pulse 57 L 08/08/23 11:37 Resp 18 08/08/23 11:37 BP 136/78 08/08/23 11:37 Pulse Ox 94 L 08/08/23 11:37 FiO2 40 08/06/23 07:23 Intake & Output 08/07/23 08/08/23 08/08/23 18:59 06:59 18:59 Intake Total 940 120 0 Output Total 602 1000 Balance 940 -482 -1000 Weight 89.5 kg Intake: IV 100 Piperacillin-Tazobactam 3 100 .375 gm In Sodium Chloride 0.9% 100 ml @ 25 mls/hr IVPB Q8HR [facility] Rx# :[id number] Oral 840 120 0 Output: Urine 600 1000 Stool 2 Other: Voiding Method Bedside Commode Bedside Commode Bedside Commode # Voids 1 # Bowel Movements 1 - Exam GENERAL EXAM: Alert, pleasant 63-year-old female, on 7 L high flow nasal cannul a, comfortable in no apparent distress. HEAD: Normocephalic. EYES: Normal reaction of pupils, equal size. NOSE: Clear with pink turbinates. THROAT: No erythema or exudates. NECK: No masses, no JVD. CHEST: No chest wall deformity. LUNGS: Equal air entry with no crackles, wheeze, rhonchi or dullness. CVS: S1 and S2 normal with no audible murmur, regular rhythm. ABDOMEN: No hepatosplenomegaly, normal bowel sounds, no guarding or rigidity. SPINE: No scoliosis or deformity SKIN: No rashes CENTRAL NERVOUS SYSTEM: No focal deficits, tone is normal in all 4 extremities. EXTREMITIES: There is no peripheral edema. No clubbing, no cyanosis. Peripheral pulses are intact. - Labs CBC & Chem 7: 08/08/23 12:13 08/06/23 03:33 Labs: Abnormal Lab Results - Last 24 Hours (Table) 08/07/23 08/07/23 08/08/23 Range/Units 17:27 19:54 06:06 WBC (3.8-10.6) k/uL RBC (3.80-5.40) m/uL MCHC (31.0-37.0) g/dL POC Glucose (mg/dL) 457 H 366 H 324 H (70-110) mg/dL 08/08/23 08/08/23 Range/Units 11:23 12:13 WBC 26.3 H (3.8-10.6) k/uL RBC 3.77 L (3.80-5.40) m/uL MCHC 30.8 L (31.0-37.0) g/dL POC Glucose (mg/dL) 150 H (70-110) mg/dL Assessment and Plan Assessment: Acute on chronic hypoxic respiratory failure. Typically the patient is on 5 L of oxygen by nasal cannula. The patient is currently on Airvo responding to the diuresis and the patient is currently on 35 L with an FiO2 of 40%. No significant respiratory distress at rest. Continues to have some desaturation with activity. Nevertheless, she has responded to diuresis. Oxygenation is gradually improving after being stable for several days. Negative fluid balance as mentioned. Chest x-ray findings are essentially unchanged. Coronary artery disease, involving the LAD, with 40 to 50% stenosis, and a patent proximal RCA stent. Severe aortic stenosis with a valve surface area of 0.6 cm, S/P BVP, July 28, 2023, postop day # 10 Acute kidney injury with a creatinine of 1.26 probably due to aggressive diuresis. Right lower lobe consolidation/pneumonia, consider hospital-acquired pneumonia versus aspiration., Stable right lower lobe pulmonary infiltrate completed Zosyn. chronic hypoxemic and hypercapnic respiratory failure, secondary to COPD. Shingles involving the right upper extremity currently on Valtrex History of hyperlipidemia. History of hypertension. History of chronic low back pain. Obesity. Aortic valve stenosis. History of tracheobronchitis. Prior history of heavy tobacco use. Plan: The patient was seen and evaluated Labs and medications reviewed Improved and nearly back to her baseline Titrate down the FiO2 as tolerated Home once cleared by cardiology We will continue to follow I have personally seen and examined the patient, performed the documentation and the assessment and plan as written. Number of minutes spent on the visit: 10.
[2023-08-08 16:28] LABS: Glucose,Whole Blood 283 mg/dL (70-110)
[2023-08-08 20:04] LABS: Glucose,Whole Blood 197 mg/dL (70-110)
[2023-08-09 06:31] LABS: Glucose,Whole Blood 196 mg/dL (70-110)
[2023-08-09 09:50] VITALS: BP 112/59; RESP 16; TEMP 98
[2023-08-09 11:31] LABS: Basophils % (A) 0 %; Eosinophils # (A) 0.2 k/uL (0-0.7); Eosinophils % (A) 1 %; HCT 36.3 % (34.0-46.0); Hypochromasia Moderate; Lymphocytes # (A) 3.2 k/uL (1.0-4.8); Lymphocytes % (A) 16 %; MCH 30.4 pg (25.0-35.0); MCHC 30.4 g/dL (31.0-37.0); MCV 100.1 fL (80.0-100.0); Macrocytosis Slight; Monocytes # (A) 1.5 k/uL (0-1.0); Monocytes % (A) 7 %; Neutrophils # (A) 14.9 k/uL (1.3-7.7); Neutrophils % (A) 74 %; Platelet Count 354 k/uL (150-450); RBC 3.62 m/uL (3.80-5.40); RDW 15.5 % (11.5-15.5); WBC 20.1 k/uL (3.8-10.6)
[2023-08-09 11:39] LABS: Glucose,Whole Blood 249 mg/dL (70-110)
[2023-08-09 11:40] LABS: ALT 20 U/L (4-34); AST 26 U/L (14-36); African American GFR (CKD) 80 (>60 ml/min/1.73 sqM); Albumin 3.6 g/dL (3.5-5.0); Alkaline Phosphatase 99 U/L (38-126); Blood Urea Nitrogen 36 mg/dL (7-17); Calcium 9.1 mg/dL (8.4-10.2); Chloride 88 mmol/L (98-107); Glucose 194 mg/dL (74-99); Non-African American GFR(CKD) 70 (>60 ml/min/1.73 sqM); Potassium 2.9 mmol/L (3.5-5.1); Sodium 135 mmol/L (137-145); Total Bilirubin 0.4 mg/dL (0.2-1.3); Total Protein 6.2 g/dL (6.3-8.2)
[2023-08-09 11:47] LABS: Anion Gap 12 mmol/L; Carbon Dioxide 35 mmol/L (22-30)
[2023-08-09 11:59] VITALS: PULSE 76
[2023-08-09] MEDS: POTASSIUM CHLORIDE ER 20 MEQ TAB.ER PO STA (12:34)
--- NOTE | 2023-08-09 13:02 | P.DS ---
Providers Date of admission: 07/24/23 06:45 Expected date of discharge: 08/09/23 Attending physician: Steven Zapien MD Consults: 07/24/23 06:43 Consult Physician Urgent Consulting Provider: [facility] Consult Reason/Comments: acute chest pain, elevated trop Do you want consulting provider notified?: Yes 07/24/23 12:16 Consult Physician Routine Consulting Provider: Roger Carreno Consult Reason/Comments: eval for TAVR Do you want consulting provider notified?: Yes 07/25/23 09:39 Consult Physician Routine Consulting Provider: Júnior Morgan Consult Reason/Comments: copd Do you want consulting provider notified?: Yes 07/25/23 16:13 Consult Physician Routine Consulting Provider: Primo Ceja Consult Reason/Comments: dental clearance for valve surgery Do you want consulting provider notified?: Yes 07/26/23 09:01 Consult Physician Routine Consulting Provider: Gloria Riojas Consult Reason/Comments: rash Do you want consulting provider notified?: Yes Primary care physician: Jeremy Ennis Hospital Course: Discharge diagnoses; Right shoulder pain/chest pain with right upper extremity rash along the medial side, shingles Non-STEMI, status post cardiac catheterization with no progression of CAD Coronary artery disease with previous PCI, most recently March 2023 with PCI of the proximal RCA Ischemic cardiomyopathy, ejection fraction 45%, with improved EF now 60 to 65% Severe aortic stenosis Oropharyngeal candidiasis Mild pulmonary hypertension Acute COPD exacerbation. Significantly improved acute on chronic hypoxic respiratory failure. Resolved Atrial tachycardia with short ME interval Coronary artery disease s/p stent History of arctic stenosis s/p TAVR Obesity with BMI of 36.6 History of depression and anxiety, no acute process. Hypertension Hyperlipidemia Hospital course; This is a pleasant 62 years old female with past medical history of multiple medical problems including COPD and chronic hypoxic respiratory failure on 5 L oxygen at home and she follows up with Dr. MORGAN for her COPD. Other medical problems including aortic stenosis status post TAVR, coronary artery disease s/p stent and depression and anxiety. Patient presents because of pain in her right shoulder radiating to her right arm and right chest for a few days since , 110/10 in severity, no history of trauma or fall. Pain described as nonspecific with no precipitating or relieving factors. She denies dyspnea she has dry cough. She is using 5 L of oxygen at home. No change in urine or bowel habits. No headache dizziness weakness or numbness. She denies current smoking alcohol or illicit drugs Patient is hemodynamically stable, afebrile She has unremarkable CBC, INR, BMP, liver enzymes, lipase Troponin is elevated 0.04 Chest x-ray is negative for acute process EKG showing atrial tachycardia with short ME interval but no significant ST-T changes. 07/25/2023 Patient is status post cardiac cath yesterday showing mid LAD stenosis 40-50% with patent RCA stent, also shows evidence of severe aortic stenosis, therefore cardiothoracic surgery team were consulted however patient is known not to fol low-up on patient, as confirmed with the patient and daughter at bedside today who states that her mom usually go home call Dr. trejo isn't canceled her appointment and she does not follow up Further workup per cardiothoracic surgery team is requested here On admission yesterday she has limited air entry and she was placed on IV Solu- Medrol or acute COPD exacerbation, whiletoday air flow is much better although she has scattered wheezing and she still mildly tachypneic and therefore we consulted pulmonary service currently she is placed on prednisone 5 mg. she is to have mild to moderate right shoulder pain mostly related to her cardiac disease. Some elements of osteoarthritis. her heparin drip was stopped , 07/26/2023 Patient breathing is better, no chest pain today But she still complaining from more severe right shoulder pain. Patient has this pain improved with the steroids but when switched to oral prednisone 5 mg the pain increased today again. She has more rash in her medial arm and forearm and the arm. For short distance with maculopapular rash with possible some vesicles been forming with the pain and tenderness goes with the rash and around it, signs suspicious for shingles. Therefore we are going to start her on [place] for pain management and valacyclovir and asked ID team to reevaluate. Also will put on isolation till cleared. She is hemodynamically stable She is being evaluated by cardiothoracic surgery team as well. 07/27/2023 Patient is awake and alert she denies chest pain but she still complaining from right shoulder pain and neuropathic pain along her rash in the right armpit and the surrounding skin down to the left wrist along the medial side, rash is getting somewhat crusted partially. Breathing is stable However through the day her blood pressure became on the low side She is getting normal saline running at 90 mL/h Cardiology team and planning for balloon valvuloplasty for her severe aortic stenosis She is currently covered with valacyclovir, Lyrica, prednisone 5 mg Oral Lasix and Farxiga 07/27. Patient seen examined. States right shoulder pain has improved, lesions on the right arm has improved. 07/28. Patient seen and examined. s/p balloon aortic valvuloplasty with a 28mm Z Med balloon on 07/27. Currently on 15 L of oxygen. Critical care ordered 1 dose of 60 mg of Lasix IV 07/29. Patient seen and examined. Currently sitting up in the chair, states she feels better compared to yesterday. Currently on 15 L of oxygen. Critical care have ordered 60 mg of IV Lasix. 07/30. Patient seen and examined. Vital signs this morning temp temperature afebrile, heart rate 79, respirate 17, blood pressure 93/61, currently on Airvo at 45 L of oxygen. Blood work done this morning showed WBC 13.4, hemoglobin 9.2, platelet count 254, sodium 137, potassium 3.2, BUN 17, creatinine 0.8. Potassium placement ordered. Cardiology following, recommended patient is not a candidate for surgical intervention and TAVR procedure is complicated by enlarged ascending aorta. 08/01/2023 Patient looks comfortable somewhat but mildly tachypneic, she had aortic valve procedure valvoplasty for her severe aortic stenosis and that improved her blood pressure but patient had decompensated pulmonary function and developed acute COPD exacerbation and fluid overload and currently she is on IV Solu-Medrol 60 mg and IV Lasix 40 mg Also patient placed on broad-spectrum antibiotic with Zosyn besides her Valtrex and Lyrica for her herpes rash of the right upper extremity which is currently improved significantly. Patient still complaining from pain but improved from last week Also patient on Farxiga and metoprolol Other vitals look stable, she is mildly tachycardic but afebrile. WBC is 13 and hemoglobin stable at 8.7. Chest x-ray showing bilateral infiltrate 08/02/2023 Patient is tachypneic today. She still needs 40 L/min of oxygen like yesterday No other new complaints She remains on IV Solu-Medrol, Zosyn and IV Lasix 40 mg every 8 hours Also she is on Valtrex and Lyrica which is improving her herpes infection 08/03/2023 Patient breathing is similar to yesterday, she is only mildly tachypneic at rest, no respiratory distress, she does freely She is still on 40 L oxygen via high flow nasal cannula No other new complaints She remains on IV Lasix 40 mg every 8 hours, IV Solu-Medrol 60 mg and Zosyn. She is currently not on anticoagulation BX showed respiratory alkalosis with elevated pCO2 57 08/04/2023 Patient remains in the ICU She is still on 40 L oxygen She is still on IV Lasix, IV Solu-Medrol and Zosyn No chest pain no new complaint 08/05/2023 patient showed some improvement in her breathing today with oxygen requirement came down from 40 L/min down to 35 L/min for the first time in a few days No other new complaints. However she kept on IV Lasix 40 mg every 8 hours and Zosyn Also she is on Lyrica and shingles rash significantly improved 08/06. Patient seen and examined. Patient oxygen requirements has slightly worsened, currently requiring up to 7 L of oxygen. States she does not feel worse 08/07. Patient seen and examined. Ox requirements are still high, currently on 7 L of oxygen. Gets short of breath on exertion. 08/08. Patient seen examined. Currently on 5 L of oxygen which is her baseline. Pulmonology cleared the patient for discharge. Potassium was low but was adequately replaced prior to discharge. Outpatient follow-up with cardiology and pulmonology. Being discharged on nystatin swish and swallow per ID recommendations for 1 week PHYSICAL EXAMINATION: GENERAL: The patient is alert and oriented x3, not in any acute distress. Well developed, well nourished. HEENT: Pupils are round and equally reacting to light. EOMI. No scleral icterus. No conjunctival pallor. Normocephalic, atraumatic. No pharyngeal erythema. No thyromegaly. CARDIOVASCULAR: S1 and S2 present. PULMONARY: Coarse breath sound bilaterally, no wheezing or crackles. ABDOMEN: Soft, nontender, nondistended, normoactive bowel sounds. No palpable organomegaly. MUSCULOSKELETAL: No joint swelling or deformity. EXTREMITIES: No cyanosis, clubbing, or pedal edema. NEUROLOGICAL: Gross neurological examination did not reveal any focal deficits. SKIN: Rash on right arm has improved Dictation was produced using dragon dictation software. please excuse any grammatical, word or spelling errors. Patient Condition at Discharge: Stable Plan - Discharge Summary Discharge Rx Participant: No New Discharge Prescriptions: New Potassium Chloride ER [K-Dur 20] 20 meq PO BID #60 tab Nystatin 100,000 Unit/ml Susp [Mycostatin Oral Susp] 500,000 unit PO QID 7 Days #140 ml Continue Albuterol Inhaler [Ventolin Hfa Inhaler] 2 puff INHALATION RT-Q4H PRN PRN Reason: Shortness Of Breath Aspirin 81 mg PO DAILY 30 Days #30 tab Yupelri 175mcg/3ml 175 mcg INHALATION RT-DAILY predniSONE 5 mg PO DAILY Tiotropium Crawley [Spiriva Handihaler] 1 cap INHALATION RT-DAILY Nitroglycerin Sl Tabs [Nitrostat] 0.4 mg SL Q5M PRN PRN Reason: Chest Pain Atorvastatin [Lipitor] 40 mg PO HS Sertraline [Zoloft] 100 mg PO DAILY Budesonide/Formoterol Fumarate [Symbicort 160-4.5 Mcg Inhaler] 2 puff INHALATION RT-BID Ipratropium-Albuterol Nebulize [Duoneb 0.5 mg-3 mg/3 ml Soln] 3 ml INHALATION RT-QID PRN PRN Reason: Shortness Of Breath Dapagliflozin Propanediol [Farxiga] 5 mg PO DAILY hydrOXYzine HCL [Atarax] 25 mg PO BID Ipratropium-Albuterol Nebulize [Duoneb 0.5 mg-3 mg/3 ml Soln] 3 ml INHALATION RT-QID #100 each Acetaminophen Tab [Tylenol] 650 mg PO Q4HR PRN tab PRN Reason: Fever And/Or Mild Pain Meloxicam [Mobic] 7.5 mg PO BID Changed Furosemide [Lasix] 40 mg PO BID #60 tab Metoprolol Succinate (ER) [Toprol XL] 25 mg PO TID #60 tab Discontinued lisinopriL [Prinivil] 10 mg PO DAILY 30 Days #30 tab Discharge Medication List Albuterol Inhaler [Ventolin Hfa Inhaler] 2 puff INHALATION RT-Q4H PRN 04/09/22 [History] Atorvastatin [Lipitor] 40 mg PO HS 04/09/22 [History] Aspirin 81 mg PO DAILY 30 Days #30 tab 04/12/22 [Rx] Sertraline [Zoloft] 100 mg PO DAILY 06/15/22 [History] Budesonide/Formoterol Fumarate [Symbicort 160-4.5 Mcg Inhaler] 2 puff INHALATION RT-BID 07/13/22 [History] Ipratropium-Albuterol Nebulize [Duoneb 0.5 mg-3 mg/3 ml Soln] 3 ml INHALATION RT-QID PRN 09/23/22 [History] Dapagliflozin Propanediol [Farxiga] 5 mg PO DAILY 11/19/22 [History] Yupelri 175mcg/3ml 175 mcg INHALATION RT-DAILY 11/19/22 [History] hydrOXYzine HCL [Atarax] 25 mg PO BID 11/19/22 [History] Tiotropium Craw[place] [Spiriva Handihaler] 1 cap INHALATION RT-DAILY 04/19/23 [History] predniSONE 5 mg PO DAILY 04/19/23 [History] Acetaminophen Tab [Tylenol] 650 mg PO Q4HR PRN tab 05/18/23 [Rx] Ipratropium-Albuterol Nebulize [Duoneb 0.5 mg-3 mg/3 ml Soln] 3 ml INHALATION RT-QID #100 each 05/18/23 [Rx] Meloxicam [Mobic] 7.5 mg PO BID 06/30/23 [History] Nitroglycerin Sl Tabs [Nitrostat] 0.4 mg SL Q5M PRN 07/24/23 [History] Furosemide [Lasix] 40 mg PO BID #60 tab 08/09/23 [Rx] Metoprolol Succinate (ER) [Toprol XL] 25 mg PO TID #60 tab 08/09/23 [Rx] Nystatin 100,000 Unit/ml Susp [Mycostatin Oral Susp] 500,000 unit PO QID 7 Days #140 ml 08/09/23 [Rx] Potassium Chloride ER [K-Dur 20] 20 meq PO BID #60 tab 08/09/23 [Rx] Follow up Appointment(s)/Referral(s): Jeremy Ennis DO [Primary Care Provider] - 1-2 days [facility] [NON-STAFF] - 08/28/23 3:00 pm () Tim Gannon MD [STAFF PHYSICIAN] - 1 Week Antoni Hinkle DO [STAFF PHYSICIAN] - 1 Week Discharge/Stand Alone Forms: Who Do I Call?, Community Resources, Personal [employer] Discharge Disposition: HOME SELF-CARE
[2023-08-09] MEDS: POTASSIUM CHLORIDE ER 20 MEQ TAB.ER PO ONE (13:44)
--- NOTE | 2023-08-09 14:24 | P.PN ---
Subjective Progress Note Date: 08/09/23 63-year-old female well-known to our service. The patient has a history of chronic hypoxemic respiratory failure secondary to COPD, and is chronically oxygen dependent. The patient presented to the emergency room, on July 23, complaining of chest pain. The pain apparently was on the right side of her c hest, and radiated into her right arm. The pain started on the prior . The patient does have a history of coronary disease, and has had stents placed in the last year. In addition, she admits to chronic shortness of breath, secondary to her severe COPD. The patient did go to the catheterization laboratory on July 23, and was found to have a 40 to 50% stenosis, in the mid LAD, with a patent proximal RCA stent. In addition, on echocardiogram, the patient was found to have severe aortic stenosis, with a valve surface area of 1.6 cm, and a gradient across the aortic valve, of 100 mmHg. The patient underwent a valvuloplasty by cardiology. On today's evaluation of 07/31/2023, the patient is being seen for a follow-up. The patient is calm and comfortable. She is still having oxygen saturations on high flow oxygen and the patient will be placed on Airvo to maintain an oxygen saturation above 90%. The patient has advanced COPD and the patient is typically on oxygen at 5 L at baseline. The patient is also developed a right lower lobe consolidation consistent with pneumonia and the patient remains on IV Zosyn. Earlier, the patient was not nonabrasive fullface mask and the patient will be switched to Airvo. IV fluids are currently at KVO. The procalcitonin level is at 0.14. Hemodynamically stable and the patient is on no pressors. White cell count at 13.4 with a hemoglobin 9.2 and a platelet count of 254. BUN is at 17 with a creatinine of 0.8 and a sodium levels at 137. Potassium level is at 3.8. The patient is receiving Lasix 40 mg p.o. daily. The patient is on prednisone 5 mg p.o. daily. The patient also has developed shingles in the right upper extremity and the patient is currently on Valtrex. Remains on DuoNeb updrafts. Remains on a combination of Perforomist and Pulmicort updrafts twice a day. As mentioned, chest x-ray showing a right lower lobe consolidation. On today's evaluation of 08/01/2023, the patient is essentially the same as yesterday. No significant changes in terms of her oxygenation. The patient remains on Airvo 40 L with FiO2 of 50%. No fever. No chills. Using incentive spirometer. No chest pain. No signs of any CO2 narcosis or altered mentation. Blood work from today shows a WBC count of 13 with a hemoglobin 8.7 and a platelet count of 272. Sodium is at 137 with a potassium level of 3.2, bicarb is at 39 with a BUN of 15 and a creatinine of 0.7. Fluid balance over the past 24 hours is -2.6 L and the patient is headed towards another 2.5 L negative in terms of her fluid balance over the next 24 hours. The patient remains on bronchodilators. The patient remains on IV Solu-Medrol 40 mg every 6 hours. The patient remains on IV Zosyn. The patient remains on Lasix 40 mg IV every 8 hours. A repeat chest x-ray was also done today and the findings are essentially showing background COPD with some improvement in the residual coarse infiltration in the right mid and right lower lobe area. 08/22/2023, the patient remains on Airvo 40 L with FiO2 of 50%. No major improvement in oxygenation and the patient continues to desaturate once FiO2 is dropped down to 40%. Nevertheless, she feels, comfortable without having any significant shortness of breath at rest. No significant sputum production. No fever or chills. She continues to make excellent urine output. Fluid balance has been negative another 2.5 L over the past 24 hours and the patient is being diuresed with Lasix 40 mg IV every 8 hours. The patient remains on DuoNeb updrafts. The patient remains on Solu-Medrol 40 mg every 6 hours. Breath sounds are quite diminished and there is no significant bronchospasm or wheezing. Repeat chest x-ray was done today and the patient was found to have limited patchy infiltrates in the right midlung in the right lower lung which continues to improve on repeated chest x-rays. WBC count of 12.4 with a hemoglobin 9.2 and a platelet count of 220. BUN is 22 with a creatinine of 0.8 and a sodium levels of 138 with a potassium level of 3.3. K level is being replaced. She remains on IV Zosyn. She remains on oral Valtrex. Shingles is being treated and the skin lesions are all stable. 08/03/2023, the patient feels well. She denies having any specific complaints. She is feeling better in terms of her breathing. Unfortunately, no significant improvement in the patient's oxygenation. The patient remains on 40 L with FiO2 of 50%.Okay make sure your white cell count is coming down okay chest x-ray findings are essentially stable with cardiomegaly and a stable right lower lobe pulmonary infiltrates. Fluid balance remains negative and the patient is in negative fluid balance of 1.4 L over the past 24 hours. She remains on Lasix 40 mg every 8 hours. She remains on Zosyn. She remains on IV Solu-Medrol 40 mg every 6 hours. She remains on bronchodilators. The patient has no significant cough or sputum production. No major edema in lower extremities. Repeat echocardiogram following the valvuloplasty showed improvement in the overall gradient through the aortic valve and gradients dropped from 75 down to 38. Continues to have mild to moderate mitral regurgitation. White cell count is 16.6 with a hemoglobin 9.4 and a platelet count of 346. Serum bicarb is at 42 with a sodium level of 139 and a potassium level of 3.4. BUN is at 33 with a creatinine of 0.96. Cardiac rhythm is sinus. Blood gas was done and it continues to show hypoxemia with a pO2 of 57. She has well compensated chronic hypercapnic respiratory failure. 08/04/2023, the patient remains on 40 L with an FiO2 of 50%, Airvo system. Noted the patient is diuresing adequately and the patient has been negative fluid balance. Repeat chest x-ray shows an area of consolidation of the right lower lobe. However the original CAT scan of the chest was done at time of admission showed no significant consolidation of the right lung base. I am going to repeat a CT angiogram to further explain the ongoing hypoxemia. The patient is post aortic valve valvuloplasty. The patient remains on Zosyn.Denies having any other complaints. The white cell count of 18 with a hemoglobin 9.4, BUN is at 35 with a creatinine of 1.07 and sodium levels of 138. Awake and alert and communicating. Remains on DuoNeb updrafts. Remains on IV Solu-Medrol 40 mg every 6 hours. Remains on Lasix 40 mg IV every 8 hours. Remains on IV Zosyn. On today's evaluation of 08/05/2023, patient is being seen for a follow-up. Ricky rating the diuresis well. Oxygenation is improved since yesterday. The patient is currently on 35 L with an FiO2 of 35%. Fluid balance over the past 24 hours has been in the order of -3.8 L. Will continue diuresis as long as the patient continues to produce excellent amount of urine output. There is somewhat improvement in oxygenation. Clinically stable. Chest x-ray findings are essentially stable. There is improvement in the right basilar pulmonary infiltration. I wanted to do a CT angiogram of the chest yesterday. The patient declined the testing. WBC count at 18.8 and hemoglobin 9.6. Serum bicarb is at 41, BUN is 43 with a creatinine of 1.02 and a sodium level is at 139. The patient is awake and alert. Denies any specific complaints. She remains hemodynamically stable. No hypotension. No significant electrolyte abnormalities. On today's evaluation of 08/06/2023, no new complaints and the patient remains on Airvo 35 L with an FiO2 of 40%. Chest x-ray shows no interval change. Findings are essentially stable. Denies having interval worsening shortness of breath. The patient is on IV Lasix. Fluid balance -1.3 L over the past 24 hours. The patient's creatinine today is slightly elevated at 1.24 with a BUN of 48 and sodium of 136. She remains on IV Lasix 40 mg every 8 hours. The white cell count is gradually on the rise and the white cell count is up to 21.2 with a hemoglobin of 9.9. She remains on IV Zosyn. She is currently on oral prednisone. Rest of the medications remain unchanged. She remains on DuoNeb updrafts, she remains on Perforomist and Pulmicort. The patient is seen today August 07, 2023 in follow-up on the selective care unit. She is currently sitting up in bed. Awake and alert no acute distress. She is maintaining O2 saturations in the 90s on 8 L high flow nasal cannula. She denies any worsening shortness of breath, cough or congestion. No chest pain or palpitations. She is anxious to go home. Today's chest x-ray reveals no acute pulmonary process. Blood sugar 120. She is currently on Zosyn and Eraxis. Prednisone taper. Continued on DuoNeb inhalations, Pulmicort and Perforomist inhalations. Remains on IV diuretics. Currently in a -1.8 L balance. The patient is seen today August 08, 2023 in follow-up on the selective care unit. She is awake and alert in no acute distress. Sitting up in bed. Denies any worsening shortness of breath, cough or congestion. She is maintaining O2 saturations in the 90s on 7 L high flow nasal cannula. She remains afebrile. Hemodynamically stable. Blood culture revealed no growth. White count 26.3. Hemoglobin 11.5. Platelets 390. Glucose 150. She is currently on Eraxis. Prednisone taper. Continued on DuoNeb inhalations, Pulmicort and Perforomist inhalations. Remains on IV diuretics. Currently in a +450 mL balance. The patient is seen today August 09, 2023 in follow-up on the selective care unit. She is currently sitting up in bed. Awake and alert in no acute distress. Denies any worsening shortness of breath, cough or congestion. She is maintaining O2 saturations in the 90s on 6 L high flow nasal cannula. She is afebrile. Hemodynamically stable. Cultures revealed no growth. White count 20.1. Hemoglobin 11.0. Platelets 354. Sodium 135. Potassium 2.9. Bicarb 35. BUN 36. Creatinine 0.89. Glucose 194. She is continued on DuoNeb inhal ations, Symbicort, Spiriva, albuterol. Potassium is being replaced. Objective - Vital Signs Vital signs: Vital Signs Temp 98 F 08/09/23 09:00 Pulse 76 08/09/23 11:29 Resp 16 08/09/23 09:00 BP 112/59 08/09/23 09:00 Pulse Ox 85 L 08/09/23 09:00 FiO2 40 08/06/23 07:23 Intake & Output 08/08/23 08/09/23 08/09/23 18:59 06:59 18:59 Intake Total 240 Output Total 1000 900 Balance -760 -900 Weight 90.3 kg Intake: Oral 240 Output: Urine 1000 900 Other: Voiding Method Bedside Commode Bedside Commode Bedside Commode # Voids 1 # Bowel Movements 1 - Exam GENERAL EXAM: Alert, 63-year-old female, on 6 L high flow nasal cannula, sitting up in bed, in no apparent distress. HEAD: Normocephalic. EYES: Normal reaction of pupils, equal size. NOSE: Clear with pink turbinates. THROAT: No erythema or exudates. NECK: No masses, no JVD. CHEST: No chest wall deformity. LUNGS: Equal air entry with no crackles, wheeze, rhonchi or dullness. Diminished. CVS: S1 and S2 normal with no audible murmur, regular rhythm. ABDOMEN: No hepatosplenomegaly, normal bowel sounds, no guarding or rigidity. SPINE: No scoliosis or deformity SKIN: No rashes CENTRAL NERVOUS SYSTEM: No focal deficits, tone is normal in all 4 extremities. EXTREMITIES: There is no peripheral edema. No clubbing, no cyanosis. Peripheral pulses are intact. - Labs CBC & Chem 7: 08/09/23 09:35 08/09/23 09:35 Labs: Abnormal Lab Results - Last 24 Hours (Table) 08/08/23 08/08/23 08/09/23 Range/Units 16:27 20:02 06:28 WBC (3.8-10.6) k/uL RBC (3.80-5.40) m/uL Hgb (11.4-16.0) gm/dL MCV (80.0-100.0) fL MCHC (31.0-37.0) g/dL Neutrophils # (1.3-7.7) k/uL Monocytes # (0-1.0) k/uL Sodium (137-145) mmol/L Potassium (3.5-5.1) mmol/L Chloride (98-107) mmol/L Carbon Dioxide (22-30) mmol/L BUN (7-17) mg/dL Glucose (74-99) mg/dL POC Glucose (mg/dL) 283 H 197 H 196 H (70-110) mg/dL Total Protein (6.3-8.2) g/dL 08/09/23 08/09/23 08/09/23 Range/Units 09:35 09:35 11:37 WBC 20.1 H (3.8-10.6) k/uL RBC 3.62 L (3.80-5.40) m/uL Hgb 11.0 L (11.4-16.0) gm/dL MCV 100.1 H (80.0-100.0) fL MCHC 30.4 L (31.0-37.0) g/dL Neutrophils # 14.9 H (1.3-7.7) k/uL Monocytes # 1.5 H (0-1.0) k/uL Sodium 135 L (137-145) mmol/L Potassium 2.9 L (3.5-5.1) mmol/L Chloride 88 L (98-107) mmol/L Carbon Dioxide 35 H (22-30) mmol/L BUN 36 H (7-17) mg/dL Glucose 194 H (74-99) mg/dL POC Glucose (mg/dL) 249 H (70-110) mg/dL Total Protein 6.2 L (6.3-8.2) g/dL Assessment and Plan Assessment: Acute on chronic hypoxic respiratory failure. Typically the patient is on 5 L of oxygen by nasal cannula. Oxygenation is gradually improving after being stable for several days. Chest x-ray findings are essentially unchanged. Coronary artery disease, involving the LAD, with 40 to 50% stenosis, and a patent proximal RCA stent. Severe aortic stenosis with a valve surface area of 0.6 cm, status post balloon aortic valvuloplasty on July 28, 2023. Acute kidney injury with a creatinine of 1.26 probably due to aggressive diuresis. Right lower lobe consolidation/pneumonia, consider hospital-acquired pneumonia versus aspiration., Stable right lower lobe pulmonary infiltrate completed Zosyn. chronic hypoxemic and hypercapnic respiratory failure, secondary to COPD. Shingles involving the right upper extremity currently on Valtrex. History of hyperlipidemia. History of hypertension. History of chronic low back pain. Obesity. Aortic valve stenosis. History of tracheobronchitis. Prior history of heavy tobacco use. Plan: The patient was seen and evaluated Labs and medications reviewed Potassium being replaced Improved and nearly back to her baseline Cleared for discharge from the pulmonary standpoint Continue her home oxygen, home pulmonary medications Follow-up in our office in 1 week I have personally seen and examined the patient, performed the documentation and the assessment and plan as written. Number of minutes spent on the visit: 10.
[2023-08-09] MEDS ORDERED: FUROSEMIDE 20 MG TAB PO SCH (16:00)
[2023-08-10] MEDS ORDERED: FAMOTIDINE 20 MG TAB PO SCH (09:00)
--- NOTE | 2023-08-10 12:29 | P.PN ---
Subjective Progress Note Date: 08/09/23 Principal diagnosis: Reason for follow-up is right T10 dermatome shingles Patient is a 63-year-old female past medical history significant for COPD coronary artery disease [place] former smoker presenting to the hospital for evaluation of chest pain on the right side of her chest and is also complaining of pain to the right upper arm, patient did develop a rash prompting this consultation and has been diagnosed with shingles. On today's evaluation that is 08/09/2023, Patient is afebrile patient is currently on 5 L nasal cannula oxygen and denies having any shortness of breath, the patient denies any chest pain or cough, the patient denies any nausea vomiting did not have any abdominal pain and no diarrhea, feeling better wants to go home. Patient white count is down to 20,000, creatinine 0.89 blood culture negative Objective - Vital Signs Vital signs: Vital Signs Temp 98 F 08/09/23 09:00 Pulse 76 08/09/23 11:29 Resp 16 08/09/23 09:00 BP 112/59 08/09/23 09:00 Pulse Ox 85 L 08/09/23 09:00 FiO2 40 08/06/23 07:23 Intake & Output 08/08/23 08/09/23 08/09/23 18:59 06:59 18:59 Intake Total 240 Output Total 1000 900 Balance -760 -900 Weight 90.3 kg Intake: Oral 240 Output: Urine 1000 900 Other: Voiding Method Bedside Commode Bedside Commode Bedside Commode # Voids 1 # Bowel Movements 1 - Exam GENERAL DESCRIPTION: Middle-aged female lying in bed in no distress RESPIRATORY SYSTEM: Unlabored breathing , decreased breath sounds at bases HEART: S1 S2 regular rate and rhythm , ABDOMEN: Soft , no tenderness EXTREMITIES: Right upper extremity vesicular rash has dried out - Labs CBC & Chem 7: 08/09/23 09:35 08/09/23 09:35 Labs: Abnormal Lab Results - Last 24 Hours (Table) 08/08/23 08/08/23 08/09/23 Range/Units 16:27 20:02 06:28 WBC (3.8-10.6) k/uL RBC (3.80-5.40) m/uL Hgb (11.4-16.0) gm/dL MCV (80.0-100.0) fL MCHC (31.0-37.0) g/dL Neutrophils # (1.3-7.7) k/uL Monocytes # (0-1.0) k/uL Sodium (137-145) mmol/L Potassium (3.5-5.1) mmol/L Chloride (98-107) mmol/L Carbon Dioxide (22-30) mmol/L BUN (7-17) mg/dL Glucose (74-99) mg/dL POC Glucose (mg/dL) 283 H 197 H 196 H (70-110) mg/dL Total Protein (6.3-8.2) g/dL 08/09/23 08/09/23 08/09/23 Range/Units 09:35 09:35 11:37 WBC 20.1 H (3.8-10.6) k/uL RBC 3.62 L (3.80-5.40) m/uL Hgb 11.0 L (11.4-16.0) gm/dL MCV 100.1 H (80.0-100.0) fL MCHC 30.4 L (31.0-37.0) g/dL Neutrophils # 14.9 H (1.3-7.7) k/uL Monocytes # 1.5 H (0-1.0) k/uL Sodium 135 L (137-145) mmol/L Potassium 2.9 L (3.5-5.1) mmol/L Chloride 88 L (98-107) mmol/L Carbon Dioxide 35 H (22-30) mmol/L BUN 36 H (7-17) mg/dL Glucose 194 H (74-99) mg/dL POC Glucose (mg/dL) 249 H (70-110) mg/dL Total Protein 6.2 L (6.3-8.2) g/dL Assessment and Plan (1) Zoster Status: Acute Code(s): B02.9 - ZOSTER WITHOUT COMPLICATIONS SNOMED Code(s): 7244418 (2) Leukocytosis Status: Acute Code(s): D72.829 - ELEVATED WHITE BLOOD CELL COUNT, UNSPECIFIED SNOMED Code(s): 275162273 (3) Pneumonia Status: Acute Code(s): J18.9 - PNEUMONIA, UNSPECIFIED ORGANISM SNOMED Code(s): 127581521 Plan: 1patient presented to hospital with pain to the right side of the chest and right upper extremity not developing a rash which is a following T1 dermatome likely herpes zoster with no evidence of any secondary cellulitis 2-patient rash to the right upper arm decreased in intensity no evidence of cellulitis, patient to continue with Valtrex 1 g every 8 hours to finish 7-day course of therapy along with Lyrica for postherpetic neuralgia, 3-leukocytosis with a right perihilar infiltrate concerning for possible nosocomial pneumonia, the patient is afebrile and patient has completed a 10-day course of Zosyn completed as of 08/07/2023 4-leukocytosis related to steroids versus oropharyngeal candidiasis, patient white count improved with Eraxis plan is to finish therapy with nystatin swish and swallow x 7 days on discharge discussed with the admitting team working on discharge Dictation was produced using [employer] dictation software. please excuse any grammatical, word or spelling errors. Time with Patient: Less than 30
--- NOTE | 2023-08-10 12:30 | P.PN ---
Subjective Progress Note Date: 07/27/23 Principal diagnosis: Reason for follow-up is right T10 dermatome shingles Patient is a 63-year-old female past medical history significant for COPD coronary artery disease [place] former smoker presenting to the hospital for evaluation of chest pain on the right side of her chest and is also complaining of pain to the right upper arm, patient did develop a rash prompting this consultation and has been diagnosed with shingles. On today's evaluation that is 07/27/2023,the patient denies any fever or any chills, patient is complaining of shortness of breath and is currently requiring 7 L high flow oxygen patient is also hypotensive, denies any worsening cough no nausea no vomiting pain to the right upper extremity rash and has slightly decreased in intensity. Patient white count is 12.7, creatinine is 1.17 Objective - Vital Signs Vital signs: Vital Signs Temp 98.4 F 07/27/23 11:29 Pulse 78 07/27/23 12:00 Resp 20 07/27/23 12:00 BP 64/41 07/27/23 14:08 Pulse Ox 90 L 07/27/23 12:20 FiO2 Intake & Output 07/26/23 07/27/23 07/27/23 18:59 06:59 18:59 Intake Total 20 20 10 Balance 20 20 10 Intake: IV 20 20 10 Invasive Line 1 20 20 10 Other: Voiding Method Toilet Toilet Toilet # Voids 1 1 # Bowel Movements 2 2 - Exam GENERAL DESCRIPTION: Middle-aged female lying in bed in no distress RESPIRATORY SYSTEM: Unlabored breathing , decreased breath sounds at bases HEART: S1 S2 regular rate and rhythm , ABDOMEN: Soft , no tenderness EXTREMITIES: Right upper extremity did have vesicular rash no worsening or extension noticed - Labs CBC & Chem 7: 08/09/23 09:35 08/09/23 09:35 Labs: Abnormal Lab Results - Last 24 Hours (Table) 07/26/23 07/26/23 07/27/23 Range/Units 17:10 20:08 05:49 WBC (3.8-10.6) k/uL RBC (3.80-5.40) m/uL Hgb (11.4-16.0) gm/dL Hct (34.0-46.0) % MCV (80.0-100.0) fL MCHC (31.0-37.0) g/dL Neutrophils # (1.3-7.7) k/uL Lymphocytes # (1.0-4.8) k/uL Sodium (137-145) mmol/L Chloride (98-107) mmol/L Carbon Dioxide (22-30) mmol/L BUN (7-17) mg/dL Creatinine (0.52-1.04) mg/dL Glucose (74-99) mg/dL POC Glucose (mg/dL) 244 H 186 H 193 H (70-110) mg/dL Total Protein (6.3-8.2) g/dL Albumin (3.5-5.0) g/dL 07/27/23 07/27/23 07/27/23 Range/Units 11:28 12:24 12:24 WBC 12.7 H (3.8-10.6) k/uL RBC 3.33 L (3.80-5.40) m/uL Hgb 10.1 L (11.4-16.0) gm/dL Hct 33.6 L (34.0-46.0) % MCV 101.0 H (80.0-100.0) fL MCHC 30.0 L (31.0-37.0) g/dL Neutrophils # 10.3 H (1.3-7.7) k/uL Lymphocytes # 0.9 L (1.0-4.8) k/uL Sodium 136 L (137-145) mmol/L Chloride 97 L (98-107) mmol/L Carbon Dioxide 37 H (22-30) mmol/L BUN 34 H (7-17) mg/dL Creatinine 1.17 H (0.52-1.04) mg/dL Glucose 127 H (74-99) mg/dL POC Glucose (mg/dL) 129 H (70-110) mg/dL Total Protein 5.5 L (6.3-8.2) g/dL Albumin 3.1 L (3.5-5.0) g/dL Assessment and Plan (1) Zoster Status: Acute Code(s): B02.9 - ZOSTER WITHOUT COMPLICATIONS SNOMED Code(s): 0178152 (2) Leukocytosis Status: Acute Code(s): D72.829 - ELEVATED WHITE BLOOD CELL COUNT, UNSPECIFIED SNOMED Code(s): 958294881 Plan: 1patient presented to hospital with pain to the right side of the chest and right upper extremity not developing a rash which is a following T1 dermatome likely herpes zoster with no evidence of any secondary cellulitis 2-patient to continue with Valtrex 1 g every 8 hours along with Lyrica for postherpetic neuralgia 3patient noted to have significant drop in the blood pressure, lisinopril has been discontinued and currently being managed closely by cardiology and the patient is being transferred to the ICU, we will obtain blood cultures and inflammatory markers to make sure no evidence of any infection causing drop in the blood pressure Multiple family members at the bedside all questions answered Dictation was produced using [employer] dictation software. please excuse any grammatical, word or spelling errors. Time with Patient: Less than 30
== END 2023-08-09 13:58 | disposition home or self-care (01) | DRG 280 ==
LOC: EC 04:59 → OBSVTOIN 06:45 → 3SCARD 06:45 → 2SICU 07-27 14:45 → 3SCARD 08-06 14:29
PROVIDERS: ADMIT Internal Medicine; ATTEND Internal Medicine
PROC: 4A023N7 Measurement of Cardiac Sampling and Pressure, Left Heart, Percutaneous Approach (ICD-10-PCS; principal; 2023-07-24 16:35)
PROC: B2111ZZ Fluoroscopy of Multiple Coronary Arteries using Low Osmolar Contrast (ICD-10-PCS; 2023-07-24 16:35)
DX: I21.4 Non-ST elevation (NSTEMI) myocardial infarction (principal); I50.33 Acute on chronic diastolic (congestive) heart failure; J96.21 Acute and chronic respiratory failure with hypoxia; J44.1 Chronic obstructive pulmonary disease with (acute) exacerbation; J96.12 Chronic respiratory failure with hypercapnia; I47.19 Other supraventricular tachycardia; Q23.1 Congenital insufficiency of aortic valve; B37.89 Other sites of candidiasis; B37.0 Candidal stomatitis; I11.0 Hypertensive heart disease with heart failure; I25.119 Atherosclerotic heart disease of native coronary artery with unspecified angina pectoris; I27.20 Pulmonary hypertension, unspecified; I95.9 Hypotension, unspecified; Z99.81 Dependence on supplemental oxygen; E66.9 Obesity, unspecified; F32.A Depression, unspecified; I34.0 Nonrheumatic mitral (valve) insufficiency; Z95.2 Presence of prosthetic heart valve; B02.9 Zoster without complications; I25.5 Ischemic cardiomyopathy; F41.9 Anxiety disorder, unspecified; E78.5 Hyperlipidemia, unspecified; M19.90 Unspecified osteoarthritis, unspecified site; G89.29 Other chronic pain; M54.50 Low back pain, unspecified; I25.2 Old myocardial infarction; Z68.36 Body mass index [BMI] 36.0-36.9, adult; Z78.9 Other specified health status; Z95.5 Presence of coronary angioplasty implant and graft; Z82.49 Family history of ischemic heart disease and other diseases of the circulatory system; Z79.84 Long term (current) use of oral hypoglycemic drugs; Z79.51 Long term (current) use of inhaled steroids; Z79.899 Other long term (current) drug therapy; Z79.1 Long term (current) use of non-steroidal anti-inflammatories (NSAID); Z79.52 Long term (current) use of systemic steroids; Z79.82 Long term (current) use of aspirin; Z87.891 Personal history of nicotine dependence
CPT/HCPCS: 36410; 36415; 36600; 70486; 71045; 71046; 71275; 74174; 76937; 80048; 80053; 80061; 82805; 83036; 83605; 83690; 83735; 84100; 84132; 84145; 84484; 85025; 85027; 85610; 85730; 86140; 87040; 92986; 93005; 93306; 93458; 93880; 94150; 94640; 94760; 96361; 96374; 96375; 99285

== ENCOUNTER 2023-09-13 14:00 | Inpatient (IN) | payer MEDICARE, OTHER ==
[2023-09-13] MEDS: ALBUTEROL NEBULIZED 2.5 MG/3 ML INHALATION STA (14:11)
[2023-09-13] MEDS: methylPREDNISolone SOD SUCCI 125 MG/2 ML VIAL IV STA (14:12)
--- NOTE | 2023-09-13 14:19 | ED ---
General Adult HPI - General Chief complaint: Shortness of Breath Stated complaint: SOB Time Seen by Provider: 09/13/23 14:00 Source: patient, EMS, RN notes reviewed, old records reviewed Mode of arrival: EMS - History of Present Illness Initial comments: This is a 63-year-old female who presents to the emergency department difficulty breathing. Patient has a past medical history significant for COPD. According to EMS and route she jumped up to 200 beats a minute and her oxygenation dropped. Patient states she has been dealing with this for about 3 days. Patient denies any fever chills patient states she does have a cough. Patient denies chest pain but she feels palpitations. Patient has abdominal pain patient has nausea vomit diarrhea. Patient does not want to be intubated. - Related Data Home Medications Medication Instructions Recorded Confirmed Albuterol Inhaler [Ventolin Hfa 2 puff INHALATION RT-Q4H PRN 04/09/22 09/13/23 Inhaler] Atorvastatin [Lipitor] 40 mg PO HS 04/09/22 09/13/23 Sertraline [Zoloft] 100 mg PO DAILY 06/15/22 09/13/23 Budesonide/Formoterol Fumarate 2 puff INHALATION RT-BID 07/13/22 09/13/23 [Symbicort 160-4.5 Mcg Inhaler] Ipratropium-Albuterol Nebulize 3 ml INHALATION RT-QID PRN 09/23/22 09/13/23 [Duoneb 0.5 mg-3 mg/3 ml Soln] Dapagliflozin Propanediol [Farxiga] 5 mg PO DAILY 11/19/22 09/13/23 Yupelri 175mcg/3ml 175 mcg INHALATION RT-DAILY 11/19/22 09/13/23 hydrOXYzine HCL [Atarax] 25 mg PO BID 11/19/22 09/13/23 Tiotropium [place] [Spiriva 1 cap INHALATION RT-DAILY 04/19/23 09/13/23 Handihaler] predniSONE 5 mg PO DAILY 04/19/23 09/13/23 Meloxicam [Mobic] 7.5 mg PO BID 06/30/23 09/13/23 Nitroglycerin Sl Tabs [Nitrostat] 0.4 mg SL Q5M PRN 07/24/23 09/13/23 lisinopriL 30 mg PO DAILY 09/13/23 09/13/23 Previous Rx's Medication Instructions Recorded Aspirin 81 mg PO DAILY 30 Days #30 tab 04/12/22 Acetaminophen Tab [Tylenol] 650 mg PO Q4HR PRN tab 05/18/23 Ipratropium-Albuterol Nebulize 3 ml INHALATION RT-QID #100 each 05/18/23 [Duoneb 0.5 mg-3 mg/3 ml Soln] Furosemide [Lasix] 40 mg PO BID #60 tab 08/09/23 Metoprolol Succinate (ER) [Toprol 25 mg PO TID #60 tab 08/09/23 XL] Potassium Chloride ER [K-Dur 20] 20 meq PO BID #60 tab 08/09/23 Allergies Allergy/AdvReac Type Severity Reaction Status Date / Time No Known Allergies Allergy Verified 09/13/23 18:39 Review of Systems ROS Statement: Those systems with pertinent positive or pertinent negative responses have been documented in the HPI. ROS Other: All systems not noted in ROS Statement are negative. Past Medical History Past Medical History: Coronary Artery Disease (CAD), Chest Pain / Angina, COPD, Myocardial Infarction (ND), Respiratory Disorder Additional Past Medical History / Comment(s): Chronic hypercapnic respiratory failure, home oxygen at 5L/NC ATC, tracheobronchitis, severe bicuspid aortic valve stenosis, chronic low back pain, DJD History of Any Multi-Drug Resistant Organisms: None Reported Past Surgical History: Breast Surgery, Heart Catheterization With Stent, Tubal Ligation Additional Past Surgical History / Comment(s): Bilateral breast reductions, bilateral cataract removals. Past Anesthesia/Blood Transfusion Reactions: No Reported Reaction Date of Last Stent Placement:: 04/2023 Past Psychological History: Anxiety, Depression Smoking Status: Former smoker Past Alcohol Use History: None Reported Past Drug Use History: None Reported - Past Family History Father History Unknown: Yes Mother Family Medical History: Congestive Heart Failure (CHF), Diabetes Mellitus General Exam - General Exam Comments Initial Comments: GENERAL: Patient is well-developed and well-nourished. Patient is nontoxic and well- hydrated and is in moderate to severe distress. ENT: Neck is soft and supple. No significant lymphadenopathy is noted. Oropharynx is clear. Moist mucous membranes. Neck has full range of motion without eliciting any pain. EYES: The sclera were anicteric and conjunctiva were pink and moist. Extraocular movements were intact and pupils were equal round and reactive to light. Eyelids were unremarkable. PULMONARY: Patient has very poor air exchange CARDIOVASCULAR: There is a regular rate and rhythm without any murmurs gallops or rubs. ABDOMEN: Soft and nontender with normal bowel sounds. SKIN: Skin is clear with no lesions or rashes and otherwise unremarkable. NEUROLOGIC: Patient is alert and oriented x3. Cranial nerves II through XII are grossly intact. Motor and sensory are also intact. Normal speech, volume and content. Symmetrical smile. MUSCULOSKELETAL: Normal extremities with adequate strength and full range of motion. LYMPHATICS: No significant lymphadenopathy is noted PSYCHIATRIC: Normal psychiatric evaluation. Course Vital Signs 09/13/23 09/13/23 09/13/23 14:03 14:12 14:16 Pulse Rate 210 H 193 H Respiratory 26 H Rate Blood Pressure O2 Sat by Pulse 90 L Oximetry Fraction of 50 Inspired Oxygen (FIO2) 09/13/23 09/13/23 09/13/23 14:22 14:23 14:32 Pulse Rate 196 H 197 H 120 H Respiratory 22 Rate Blood Pressure 111/72 O2 Sat by Pulse 97 96 Oximetry Fraction of Inspired Oxygen (FIO2) 09/13/23 09/13/23 09/13/23 14:46 15:38 16:25 Pulse Rate 116 H 111 H Respiratory 18 16 Rate Blood Pressure 91/57 94/62 O2 Sat by Pulse 98 Oximetry Fraction of 50 Inspired Oxygen (FIO2) 09/13/23 09/13/23 09/13/23 16:54 17:15 18:24 Pulse Rate 102 H 93 91 Respiratory 16 18 16 Rate Blood Pressure 99/59 92/62 105/64 O2 Sat by Pulse 99 95 98 Oximetry Fraction of Inspired Oxygen (FIO2) 09/13/23 18:51 Pulse Rate 91 Respiratory 22 Rate Blood Pressure 118/67 O2 Sat by Pulse 98 Oximetry Fraction of Inspired Oxygen (FIO2) Medical Decision Making - Medical Decision Making EKG is interpreted by myself but EKG shows supraventricular tachycardia at 194 bpm QRS is 111 QT interval is 204 QTc is 302. Patient's heart rate converted on its own and a repeat EKG was done I interpret the repeat EKG shows sinus tachycardia with occasional PVC at 124 bpm parables 144 QRS is 105 QT interval 317 QTc is 391. Patient's EKG shows no ST segment elevation Was pt. sent in by a medical professional or institution (SHERRY Collazo, TARIFF CLERK, urgent care, hospital, or intermediate...) When possible be specific @ -No Did you speak to anyone other than the patient for history (EMS, parent, family, police, friend...)? What history was obtained from this source @ -No Did you review nursing and triage notes (agree or disagree)? Why? @ -I reviewed and agree with nursing and triage notes Were old charts reviewed (outside hosp., previous admission, EMS record, old EKG, old radiological studies, urgent care reports/EKG's, intermediate records)? Report findings @ -I reviewed old charts on this patient and compared EKGs specifically. Differential Diagnosis (chest pain, altered mental status, abdominal pain women, abdominal pain men, vaginal bleeding, weakness, fever, dyspnea, syncope, headache, dizziness, GI bleed, back pain, seizure, CVA, palpatations, mental health, musculoskeletal)? @ -Differential Dyspnea: Coronary syndrome, arrhythmia, tamponade, asthma, COPD, pulmonary embolism, pneumonia, pneumothorax, pulmonary effusion, anaphylaxis, diabetic ketoacidosis, flailed chest, pulmonary contusion, diaphragmatic rupture, anemia, neuromuscula r, this is not meant to be an all-inclusive list. EKG interpreted by me (3pts min.). @ -As above X-rays interpreted by me (1pt min.). @ -Chest x-ray shows no acute abnormality CT interpreted by me (1pt min.). @ -None done U/S interpreted by me (1pt. min.). @ -None done What testing was considered but not performed or refused? (CT, X-rays, U/S, labs)? Why? @ -None What meds were considered but not given or refused? Why? @ -None Did you discuss the management of the patient with other professionals (professionals i.e. SHERRY Collazo, TARIFF CLERK, lab, RT, psych nurse, oncology social worker, cable placer, teacher, chief medical officer, manager case)? Give summary @ -I spoke with [facility] they agreed admit the patient admit the patient recommending orders Was smoking cessation discussed for >3mins.? @ -No Was critical care preformed (if so, how long)? @ -35 minutes Were there social determinants of health that impacted care today? How? (Homelessness, low income, unemployed, alcoholism, drug addiction, t ransportation, low edu. Level, literacy, decrease access to med. care, skilled nursing, rehab)? @ -No Was there de-escalation of care discussed even if they declined (Discuss DNR or withdrawal of care, Hospice)? DNR status @ -No What co-morbidities impacted this encounter? (DM, HTN, Smoking, COPD, CAD, Cancer, CVA, ARF, Chemo, Hep., AIDS, mental health diagnosis, sleep apnea, morbid obesity)? @ -None Was patient admitted / discharged? Hospital course, mention meds given and route, prescriptions, significant lab abnormalities, going to OR and other pertinent info. @ -Patient came in with a heart rate over 200 and was not moving any air while she was breathing but she refused to be intubated so we immediately placed her on BiPAP and get set to give her some adenosine to slow her SVT down and just prior to pushing the adenosine patient converted to normal sinus rhythm. She started feeling much better with the BiPAP she was given a little Ativan to relax her anxiety. Patient was also given magnesium and potassium because they were both low. Patient also received multiple breathing treatments and steroids. Patient will be admitted to [facility] and continue to be on BiPAP because her CO2 remains elevated Undiagnosed new problem with uncertain prognosis? @ -No Drug Therapy requiring intensive monitoring for toxicity (Heparin, Nitro, Insulin, Cardizem)? @ -No Were any procedures done? @ -No Diagnosis/symptom? @ -COPD exacerbation Acute, or Chronic, or Acute on Chronic? @ -Acute Uncomplicated (without systemic symptoms) or Complicated (systemic symptoms)? @ -Comp Side effects of treatment? @ -No Exacerbation, Progression, or Severe Exacerbation? @ -No Poses a threat to life or bodily function? How? (Chest pain, [place], ND, pneumonia, PE, COPD, DKA, ARF, appy, cholecystitis, CVA, Diverticulitis, Homicidal, Suicidal, threat to staff... and all critical care pts) @ -Yes this could lead to hypoxia and endorgan dysfunction Diagnosis/symptom? @ -SVT Acute, or Chronic, or Acute on Chronic? @ -Acute Uncomplicated (without systemic symptoms) or Complicated (systemic symptoms)? @ -Complicated Side effects of treatment? @ -None Exacerbation, Progression, or Severe Exacerbation] @ -No Poses a threat to life or bodily function? @ -Yes this can lead to poor perfusion and endorgan dysfunction Diagnosis/symptom? @ -Hypomagnesemia Acute, or Chronic, or Acute on Chronic? @ -Default Uncomplicated (without systemic symptoms) or Complicated (systemic symptoms)? @ -Complicated Side effects of treatment? @ -None Exacerbation, Progression, or Severe Exacerbation] @ -No Poses a threat to life or bodily function? @ -No Diagnosis/symptom? @ -Hypokalemia Acute, or Chronic, or Acute on Chronic? @ -Acute Uncomplicated (without systemic symptoms) or Complicated (systemic symptoms)? @ -Complicated Side effects of treatment? @ -None Exacerbation, Progression, or Severe Exacerbation] @ -No Poses a threat to life or bodily function? @ -Yes this can lead to dysrhythmias and morbidity or mortality - Lab Data Result diagrams: 09/13/23 14:34 09/13/23 14:34 Lab Results 09/13/23 09/13/23 09/13/23 Range/Units 14:34 14:34 14:34 WBC 15.8 H (3.8-10.6) k/uL RBC 3.34 L (3.80-5.40) m/uL Hgb 10.1 L (11.4-16.0) gm/dL Hct 33.5 L (34.0-46.0) % MCV 100.5 H (80.0-100.0) fL MCH 30.2 (25.0-35.0) pg MCHC 30.1 L (31.0-37.0) g/dL RDW 14.6 (11.5-15.5) % Plt Count 261 (150-450) k/uL MPV 8.5 Neutrophils % 72 % Lymphocytes % 15 % Monocytes % 8 % Eosinophils % 2 % Basophils % 1 % Neutrophils # 11.4 H (1.3-7.7) k/uL Lymphocytes # 2.3 (1.0-4.8) k/uL Monocytes # 1.2 H (0-1.0) k/uL Eosinophils # 0.3 (0-0.7) k/uL Basophils # 0.1 (0-0.2) k/uL Hypochromasia Moderate Macrocytosis Slight PT (10.0-12.5) sec INR (<1.2) APTT (22.0-30.0) sec Sample Site ABG pH (7.35-7.45) ABG pCO2 (35-45) mmHg ABG pO2 (83-108) mmHg ABG HCO3 (21-25) mmol/L ABG O2 Saturation (94-97) % ABG Base Excess mmol/L VBG pH (7.31-7.41) VBG pCO2 (37-51) mmHg VBG HCO3 (24-28) mmol/L FiO2 % Sodium 138 (137-145) mmol/L Potassium 2.9 L (3.5-5.1) mmol/L Chloride 106 (98-107) mmol/L Carbon Dioxide 27 (22-30) mmol/L Anion Gap 5 mmol/L BUN 24 H (7-17) mg/dL Creatinine 0.78 (0.52-1.04) mg/dL Est GFR (CKD-EPI)AfAm >90 (>60 ml/min/1.73 sqM) Est GFR (CKD-EPI)NonAf 82 (>60 ml/min/1.73 sqM) Glucose 131 H (74-99) mg/dL Plasma Lactic Acid [place] 1.6 (0.7-2.0) mmol/L Calcium 7.0 L (8.4-10.2) mg/dL Magnesium 1.4 L (1.6-2.3) mg/dL Total Bilirubin 0.4 (0.2-1.3) mg/dL AST 25 (14-36) U/L ALT 13 (4-34) U/L Alkaline Phosphatase 77 (38-126) U/L Troponin I (0.000-0.034) ng/mL NT-Pro-B Natriuret Pep 322 pg/mL Total Protein 5.0 L (6.3-8.2) g/dL Albumin 2.6 L (3.5-5.0) g/dL 09/13/23 09/13/23 09/13/23 Range/Units 14:34 15:32 15:57 WBC (3.8-10.6) k/uL RBC (3.80-5.40) m/uL Hgb (11.4-16.0) gm/dL Hct (34.0-46.0) % MCV (80.0-100.0) fL MCH (25.0-35.0) pg MCHC (31.0-37.0) g/dL RDW (11.5-15.5) % Plt Count (150-450) k/uL MPV Neutrophils % % Lymphocytes % % Monocytes % % Eosinophils % % Basophils % % Neutrophils # (1.3-7.7) k/uL Lymphocytes # (1.0-4.8) k/uL Monocytes # (0-1.0) k/uL Eosinophils # (0-0.7) k/uL Basophils # (0-0.2) k/uL Hypochromasia Macrocytosis PT 10.4 (10.0-12.5) sec INR 0.9 (<1.2) APTT 22.7 (22.0-30.0) sec Sample Site ABG pH (7.35-7.45) ABG pCO2 (35-45) mmHg ABG pO2 (83-108) mmHg ABG HCO3 (21-25) mmol/L ABG O2 Saturation (94-97) % ABG Base Excess mmol/L VBG pH 7.22 L (7.31-7.41) VBG pCO2 90 H* (37-51) mmHg VBG HCO3 37 H (24-28) mmol/L FiO2 % Sodium (137-145) mmol/L Potassium (3.5-5.1) mmol/L Chloride (98-107) mmol/L Carbon Dioxide (22-30) mmol/L Anion Gap mmol/L BUN (7-17) mg/dL Creatinine (0.52-1.04) mg/dL Est GFR (CKD-EPI)AfAm (>60 ml/min/1.73 sqM) Est GFR (CKD-EPI)NonAf (>60 ml/min/1.73 sqM) Glucose (74-99) mg/dL Plasma Lactic Acid [place] (0.7-2.0) mmol/L Calcium (8.4-10.2) mg/dL Magnesium (1.6-2.3) mg/dL Total Bilirubin (0.2-1.3) mg/dL AST (14-36) U/L ALT (4-34) U/L Alkaline Phosphatase (38-126) U/L Troponin I 0.034 (0.000-0.034) ng/mL NT-Pro-B Natriuret Pep pg/mL Total Protein (6.3-8.2) g/dL Albumin (3.5-5.0) g/dL 09/13/23 Range/Units 18:44 WBC (3.8-10.6) k/uL RBC (3.80-5.40) m/uL Hgb (11.4-16.0) gm/dL Hct (34.0-46.0) % MCV (80.0-100.0) fL MCH (25.0-35.0) pg MCHC (31.0-37.0) g/dL RDW (11.5-15.5) % Plt Count (150-450) k/uL MPV Neutrophils % % Lymphocytes % % Monocytes % % Eosinophils % % Basophils % % Neutrophils # (1.3-7.7) k/uL Lymphocytes # (1.0-4.8) k/uL Monocytes # (0-1.0) k/uL Eosinophils # (0-0.7) k/uL Basophils # (0-0.2) k/uL Hypochromasia Macrocytosis PT (10.0-12.5) sec INR (<1.2) APTT (22.0-30.0) sec Sample Site Left Radial ABG pH 7.23 L (7.35-7.45) ABG pCO2 84 H* (35-45) mmHg ABG pO2 110 H (83-108) mmHg ABG HCO3 35 H (21-25) mmol/L ABG O2 Saturation 97.9 H (94-97) % ABG Base Excess 5.4 mmol/L VBG pH (7.31-7.41) VBG pCO2 (37-51) mmHg VBG HCO3 (24-28) mmol/L FiO2 50 % Sodium (137-145) mmol/L Potassium (3.5-5.1) mmol/L Chloride (98-107) mmol/L Carbon Dioxide (22-30) mmol/L Anion Gap mmol/L BUN (7-17) mg/dL Creatinine (0.52-1.04) mg/dL Est GFR (CKD-EPI)AfAm (>60 ml/min/1.73 sqM) Est GFR (CKD-EPI)NonAf (>60 ml/min/1.73 sqM) Glucose (74-99) mg/dL Plasma Lactic Acid [place] (0.7-2.0) mmol/L Calcium (8.4-10.2) mg/dL Magnesium (1.6-2.3) mg/dL Total Bilirubin (0.2-1.3) mg/dL AST (14-36) U/L ALT (4-34) U/L Alkaline Phosphatase (38-126) U/L Troponin I (0.000-0.034) ng/mL NT-Pro-B Natriuret Pep pg/mL Total Protein (6.3-8.2) g/dL Albumin (3.5-5.0) g/dL Critical Care Time Critical Care Time: Yes Total Critical Care Time: 35 Disposition Clinical Impression: SVT (supraventricular tachycardia), COPD exacerbation, Hypomagnesemia, Hypokalemia Disposition: ADMITTED IP TO THIS HOSP Referrals: Jeremy Ennis DO [Primary Care Provider] - 1-2 days Time of Disposition: 19:19
[2023-09-13] MEDS: SODIUM CHLORIDE 0.9% 1,000 ML IV ONE (14:22)
[2023-09-13] MEDS: ADENOSINE 3 MG/ML 2 ML VIAL IVP STA (14:39)
[2023-09-13] MEDS: LORazepam 2 MG/ML INJ IV STA ×3 (14:50→19:15)
[2023-09-13 15:16] LABS: ALT 13 U/L (4-34); African American GFR (CKD) >90 (>60 ml/min/1.73 sqM); Albumin 2.6 g/dL (3.5-5.0); Anion Gap 5 mmol/L; Blood Urea Nitrogen 24 mg/dL (7-17); Carbon Dioxide 27 mmol/L (22-30); Chloride 106 mmol/L (98-107); Glucose 131 mg/dL (74-99); Non-African American GFR(CKD) 82 (>60 ml/min/1.73 sqM); Sodium 138 mmol/L (137-145); Total Bilirubin 0.4 mg/dL (0.2-1.3)
--- NOTE | 2023-09-13 15:16 | XR ---
EXAMINATION TYPE: XR chest 1V portable DATE OF EXAM: 09/13/2023 COMPARISON: 08/07/2023 INDICATION: Difficulty breathing TECHNIQUE: Single frontal view of the chest is obtained. FINDINGS: The heart size is normal. The pulmonary vasculature is normal. The lungs are clear. IMPRESSION: 1. No acute pulmonary process.
[2023-09-13 15:18] LABS: AST 25 U/L (14-36); Alkaline Phosphatase 77 U/L (38-126); Magnesium 1.4 mg/dL (1.6-2.3); Potassium 2.9 mmol/L (3.5-5.1)
[2023-09-13 15:25] LABS: NT-Pro-B-Type Natriuretic Pept 322 pg/mL
[2023-09-13 15:28] LABS: Basophils # (A) 0.1 k/uL (0-0.2); Basophils % (A) 1 %; Eosinophils # (A) 0.3 k/uL (0-0.7); Eosinophils % (A) 2 %; HCT 33.5 % (34.0-46.0); HGB 10.1 gm/dL (11.4-16.0); Hypochromasia Moderate; Lymphocytes # (A) 2.3 k/uL (1.0-4.8); Lymphocytes % (A) 15 %; MCH 30.2 pg (25.0-35.0); MCHC 30.1 g/dL (31.0-37.0); MCV 100.5 fL (80.0-100.0); Macrocytosis Slight; Mean Platelet Volume 8.5; Monocytes # (A) 1.2 k/uL (0-1.0); Monocytes % (A) 8 %; Neutrophils # (A) 11.4 k/uL (1.3-7.7); Neutrophils % (A) 72 %; Platelet Count 261 k/uL (150-450); RBC 3.34 m/uL (3.80-5.40); RDW 14.6 % (11.5-15.5); WBC 15.8 k/uL (3.8-10.6)
[2023-09-13 15:59] LABS: INR 0.9 (<1.2); Partial Thromboplastin Time 22.7 sec (22.0-30.0); Prothrombin Time 10.4 sec (10.0-12.5)
[2023-09-13 16:12] LABS: VBG PH 7.22 (7.31-7.41)
[2023-09-13] MEDS: POTASSIUM CHLORIDE ER 20 MEQ TAB.ER PO STA (17:28)
[2023-09-13] MEDS: MAGNESIUM SULFATE-D5W PMX 1 GM in DEXTROSE/WATER 1 100ML.BAG IVPB ONE (17:33)
[2023-09-13] MEDS: SODIUM CHLORIDE 0.9% 500 ML 500 ML IV ONE (17:37)
[2023-09-13 18:49] LABS: ABG Base Excess 5.4 mmol/L; ABG HCO3 35 mmol/L (21-25); ABG Oxygen Saturation 97.9 % (94-97); ABG PH 7.23 (7.35-7.45); ABG PO2 110 mmHg (83-108); Allen Test Performed? Yes
[2023-09-13] MEDS: POTASSIUM CHLORIDE 20 MEQ in WATER FOR INJECTION 1 100ML.BAG IVPB STA (18:50)
[2023-09-13 18:55] LABS: ABG PCO2 84 mmHg (35-45)
[2023-09-13] MEDS ORDERED: NALOXONE 0.4 MG/ML 1 ML VIAL IVP PRN (19:24)
[2023-09-13] MEDS: IPRATROPIUM-ALBUTEROL 3 ML NEB INHALATION SCH (20:33)
[2023-09-13] MEDS: AMOXIC-POT CLAV 875-125MG 1 EACH TAB PO SCH (21:17)
[2023-09-13] MEDS: FUROSEMIDE 40 MG TAB PO SCH (21:18)
[2023-09-13] MEDS: hydrOXYzine HCL 25 MG TAB PO SCH (21:18)
[2023-09-13] MEDS: POTASSIUM CHLORIDE ER 20 MEQ TAB.ER PO SCH (21:18)
[2023-09-13] MEDS: ATORVASTATIN 40 MG TAB PO SCH (21:18)
[2023-09-14] MEDS: methylPREDNISolone SOD SUCCI 125 MG/2 ML VIAL IV SCH (01:05)
[2023-09-14] MEDS ORDERED: NON FORMULARY DRUG (Tiotropium Bromide [Spiriva Handihaler] 18 MCG Cap.W.Dev) INHALATION SCH (08:00)
[2023-09-14] MEDS: ASPIRIN 81 MG PO SCH (08:29)
[2023-09-14] MEDS: SERTRALINE 100 MG TAB PO SCH (08:29)
[2023-09-14] MEDS ORDERED: DEXTROSE 50% SYRINGE 50 ML IVP PRN ×2 (11:41)
--- NOTE | 2023-09-14 11:48 | P.HPIM ---
History of Present Illness Patient 63-year-old female came in with complaints of shortness of breath. Patient is found to be in hypercapnic and hypoxic respiratory failure with ABG showing pH of 7.23 pCO2 of 84 bicarbonate of 35. Patient usually uses 5 L of ox ygen does have sleep apnea with CPAP machine is morbidly obese. Patient does have history of COPD and history of smoking in the past as well. Patient is also found to be in SVT which resolved at this time patient is presently sinus tachycardia. Patient does not smoke anymore. Patient had any fever chills chest x-ray did not show any pneumonia patient is not in heart failure but takes 40 mg of Lasix for possibly peripheral edema twice a day with very low potassium of 2.9 patient appears to have severe aortic stenosis, may be diastolic dysfunction. Patient was started on Augmentin patient may have bronchitis but no evidence of pneumonia at this time will obtain a procalcitonin level. REVIEW OF SYSTEMS: CONSTITUTIONAL: No fever, no malaise, no fatigue. HEENT: No recent visual problems or hearing problems. Denied any sore throat. CARDIOVASCULAR: No chest pain, orthopnea, PND, no palpitations, no syncope. PULMONARY: no hemoptysis. GASTROINTESTINAL: No diarrhea, no nausea, no vomiting, no abdominal pain. NEUROLOGICAL: No headaches, no weakness, no numbness. HEMATOLOGICAL: Denies any bleeding or petechiae. GENITOURINARY: Denies any burning micturition, frequency, or urgency. MUSCULOSKELETAL/RHEUMATOLOGICAL: Denies any joint pain, swelling, or any muscle pain. ENDOCRINE: Denies any polyuria or polydipsia. The rest of the 14-point review of systems is negative. PHYSICAL EXAMINATION: GENERAL: The patient is alert and oriented x3, not in any acute distress. Well developed, well nourished. HEENT: Pupils are round and equally reacting to light. EOMI. No scleral icterus. No conjunctival pallor. Normocephalic, atraumatic. No pharyngeal erythema. No thyromegaly. CARDIOVASCULAR: S1 and S2 present. No murmurs, rubs, or gallops. PULMONARY: Chest is clear to auscultation, no wheezing or crackles. ABDOMEN: Soft, nontender, nondistended, normoactive bowel sounds. No palpable organomegaly. MUSCULOSKELETAL: No joint swelling or deformity. EXTREMITIES: No cyanosis, clubbing, or pedal edema. NEUROLOGICAL: Gross neurological examination did not reveal any focal deficits. SKIN: No rashes. Assessment and plan -Acute hypoxic and hypercapnic respiratory failure secondary to obesity hypoventilation syndrome sleep apnea and COPD exacerbation patient was started on 40 mg IV steroids twice a day continue with Augmentin and breathing treatments. Pulmonary will be consulted. Patient is presently requiring BiPAP -Respiratory acidosis with partial compensation: Patient is in COPD exacerbation continue with BiPAP repeat ABGs -Severe arctic stenosis -SVT on admission presently sinus tachycardia: Patient was started back on metoprolol. SVT secondary to hypoxemia -Possibly chronic diastolic function patient is not in acute exacerbation but patient will be resumed on oral Lasix -Hypokalemia secondary to Lasix will replace potassium -Coronary disease with myocardial infarction in the past -Obesity appellation syndrome sleep apnea -Depression DVT prophylaxis: Subcutaneous heparin not Lovenox Past Medical History Past Medical History: Coronary Artery Disease (CAD), Chest Pain / Angina, COPD, Myocardial Infarction ([place]), Respiratory Disorder Additional Past Medical History / Comment(s): Chronic hypercapnic respiratory failure, home oxygen at 5L/[place] ATC, tracheobronchitis, severe bicuspid aortic valve stenosis, chronic low back pain, DJD History of Any Multi-Drug Resistant Organisms: None Reported Past Surgical History: Breast Surgery, Heart Catheterization With Stent, Tubal Ligation Additional Past Surgical History / Comment(s): Bilateral breast reductions, bilateral cataract removals. Past Anesthesia/Blood Transfusion Reactions: No Reported Reaction Date of Last Stent Placement:: 04/2023 Past Psychological History: Anxiety, Depression Smoking Status: Former smoker Past Alcohol Use History: None Reported Past Drug Use History: None Reported - Past Family History Father History Unknown: Yes Mother Family Medical History: Congestive Heart Failure (CHF), Diabetes Mellitus Medications and Allergies Home Medications Medication Instructions Recorded Confirmed Type Albuterol Inhaler [Ventolin Hfa 2 puff INHALATION RT-Q4H PRN 04/09/22 09/13/23 History Inhaler] Atorvastatin [Lipitor] 40 mg PO HS 04/09/22 09/13/23 History Aspirin 81 mg PO DAILY 30 Days #30 tab 04/12/22 09/13/23 Rx Sertraline [Zoloft] 100 mg PO DAILY 06/15/22 09/13/23 History Budesonide/Formoterol Fumarate 2 puff INHALATION RT-BID 07/13/22 09/13/23 History [Symbicort 160-4.5 Mcg Inhaler] Ipratropium-Albuterol Nebulize 3 ml INHALATION RT-QID PRN 09/23/22 09/13/23 History [Duoneb 0.5 mg-3 mg/3 ml Soln] Dapagliflozin Propanediol [Farxiga] 5 mg PO DAILY 11/19/22 09/13/23 History Yupelri 175mcg/3ml 175 mcg INHALATION RT-DAILY 11/19/22 09/13/23 History hydrOXYzine HCL [Atarax] 25 mg PO BID 11/19/22 09/13/23 History Tiotropium [place] [Spiriva 1 cap INHALATION RT-DAILY 04/19/23 09/13/23 History Handihaler] predniSONE 5 mg PO DAILY 04/19/23 09/13/23 History Acetaminophen Tab [Tylenol] 650 mg PO Q4HR PRN tab 05/18/23 09/13/23 Rx Ipratropium-Albuterol Nebulize 3 ml INHALATION RT-QID #100 each 05/18/23 09/13/23 Rx [Duoneb 0.5 mg-3 mg/3 ml Soln] Meloxicam [Mobic] 7.5 mg PO BID 06/30/23 09/13/23 History Nitroglycerin Sl Tabs [Nitrostat] 0.4 mg SL Q5M PRN 07/24/23 09/13/23 History Furosemide [Lasix] 40 mg PO BID #60 tab 08/09/23 09/13/23 Rx Metoprolol Succinate (ER) [Toprol 25 mg PO TID #60 tab 08/09/23 09/13/23 Rx XL] Potassium Chloride ER [K-Dur 20] 20 meq PO BID #60 tab 08/09/23 09/13/23 Rx lisinopriL 30 mg PO DAILY 09/13/23 09/13/23 History Allergies Allergy/AdvReac Type Severity Reaction Status Date / Time No Known Allergies Allergy Verified 09/13/23 18:39 Physical Exam Vitals: Vital Signs Temp Pulse Pulse Resp BP BP Pulse Ox 09/14/23 08:07 87 09/14/23 08:03 101 H 09/14/23 08:00 97.6 F 98 18 106/63 95 09/14/23 07:25 89 16 102/81 100 09/14/23 06:23 84 17 102/81 95 09/14/23 03:43 09/14/23 03:00 86 14 114/54 96 09/13/23 23:34 89 15 106/71 98 09/13/23 22:00 99 17 115/101 100 09/13/23 20:42 80 17 09/13/23 20:33 80 17 09/13/23 20:17 96 15 102/61 98 09/13/23 19:27 09/13/23 18:51 91 22 118/67 98 09/13/23 18:24 91 16 105/64 98 09/13/23 17:15 93 18 92/62 95 09/13/23 16:54 102 H 16 99/59 99 09/13/23 16:25 09/13/23 15:38 111 H 16 94/62 09/13/23 14:46 116 H 18 91/57 98 09/13/23 14:32 120 H 96 09/13/23 14:23 197 H 22 111/72 97 09/13/23 14:22 196 H 09/13/23 14:16 09/13/23 14:12 193 H 09/13/23 14:03 210 H 26 H 90 L FiO2 09/14/23 08:07 50 09/14/23 08:03 09/14/23 08:00 09/14/23 07:25 09/14/23 06:23 09/14/23 03:43 50 09/14/23 03:00 09/13/23 23:34 50 09/13/23 22:00 09/13/23 20:42 09/13/23 20:33 09/13/23 20:17 09/13/23 19:27 50 09/13/23 18:51 09/13/23 18:24 09/13/23 17:15 09/13/23 16:54 09/13/23 16:25 50 09/13/23 15:38 09/13/23 14:46 09/13/23 14:32 09/13/23 14:23 09/13/23 14:22 09/13/23 14:16 50 09/13/23 14:12 09/13/23 14:03 Results CBC & Chem 7: 0522/24 14:34 09/13/23 14:34 Labs: Abnormal Lab Results - Last 24 Hours (Table) 09/13/23 09/13/23 09/13/23 Range/Units 14:34 14:34 15:57 WBC 15.8 H (3.8-10.6) k/uL RBC 3.34 L (3.80-5.40) m/uL Hgb 10.1 L (11.4-16.0) gm/dL Hct 33.5 L (34.0-46.0) % MCV 100.5 H (80.0-100.0) fL MCHC 30.1 L (31.0-37.0) g/dL Neutrophils # 11.4 H (1.3-7.7) k/uL Monocytes # 1.2 H (0-1.0) k/uL ABG pH (7.35-7.45) ABG pCO2 (35-45) mmHg ABG pO2 (83-108) mmHg ABG HCO3 (21-25) mmol/L ABG O2 Saturation (94-97) % VBG pH 7.22 L (7.31-7.41) VBG pCO2 90 H* (37-51) mmHg VBG HCO3 37 H (24-28) mmol/L Potassium 2.9 L (3.5-5.1) mmol/L BUN 24 H (7-17) mg/dL Glucose 131 H (74-99) mg/dL Calcium 7.0 L (8.4-10.2) mg/dL Magnesium 1.4 L (1.6-2.3) mg/dL Total Protein 5.0 L (6.3-8.2) g/dL Albumin 2.6 L (3.5-5.0) g/dL 09/13/23 Range/Units 18:44 WBC (3.8-10.6) k/uL RBC (3.80-5.40) m/uL Hgb (11.4-16.0) gm/dL Hct (34.0-46.0) % MCV (80.0-100.0) fL MCHC (31.0-37.0) g/dL Neutrophils # (1.3-7.7) k/uL Monocytes # (0-1.0) k/uL ABG pH 7.23 L (7.35-7.45) ABG pCO2 84 H* (35-45) mmHg ABG pO2 110 H (83-108) mmHg ABG HCO3 35 H (21-25) mmol/L ABG O2 Saturation 97.9 H (94-97) % VBG pH (7.31-7.41) VBG pCO2 (37-51) mmHg VBG HCO3 (24-28) mmol/L Potassium (3.5-5.1) mmol/L BUN (7-17) mg/dL Glucose (74-99) mg/dL Calcium (8.4-10.2) mg/dL Magnesium (1.6-2.3) mg/dL Total Protein (6.3-8.2) g/dL Albumin (3.5-5.0) g/dL
[2023-09-14 12:20] LABS: Glucose,Whole Blood 226 mg/dL (70-110)
[2023-09-14] MEDS: INSULIN ASPART (NovoLOG) 100 UNIT/ML VIAL SQ SCH (12:31)
[2023-09-14] MEDS: HEPARIN SODIUM,PORCINE 5,000 UNIT/ML 1 ML VIAL SQ SCH (12:32)
--- NOTE | 2023-09-14 14:32 | P.CNPUL ---
History of Present Illness Consult date: 09/14/23 Reason for consult: dyspnea History of present illness: 64-year-old female patient presents to the emergency because of difficulty in breathing. Apparently, she has been experiencing worsening shortness of breath over the past few days and she has become hypoxic. No reported fever or chills or night sweats. No hemoptysis or pleurisy. She does have a chronic cough. She has chronic lower extremity edema. The patient is known to me from previous hospital admissions. She has chronic hypoxic maintained on oxygen 5 L/min nasal cannula and the patient has been maintained on prednisone at a dose of 10 mg p.o. daily and DuoNeb updrafts. Her last hospital admission was back in July 2023. At that time, I evaluated and treated this patient. The patient had an acute on top of chronic hypoxic respiratory failure and she required high flow oxygen for a considerable period of time and she gradually improved. During the course of her illness, the patient was treated with a combination of bronchodilators, steroids and diuretics. She is known to have CAD with previous stenting of the RCA and she does have some residual stenosis of the LAD in the order of 40 to 50%. She suffered some severe aortic valve stenosis and she has undergone valvuloplasty, she has hypertension, hyperlipidemia, obesity, chronic back pain, and possibly obstructive sleep apnea. The patient was discharged home on 08/09/2023 as her oxygenation status improved and she was discharged home on 7 L of oxygen by nasal cannula. Currently she is on a BiPAP pressure of 16 over 8 cm of water with an FiO2 of 50%. The blood gas showed a pH of 7.23 with a pCO2 of 84 and a pO2 of 110. BUN is 24 with a creatinine of 0.7. Sodium is at 138 with a potassium level of 2.9. The white cell count is 15.8 with a hemoglobin of 10.1 and a platelet count of 261. Normal coagulation profile. Chest x-ray from this current admission was noted and reviewed and compared to the earlier chest x-rays. There is an obvious improvement in the right lower lobe consolidation as well as noted earlier. She is alert and awake and communicating. [facility], IV Solu-Medrol 40 mg every 12 hours. She is also on Lasix 40 mg p.o. twice a day. Review of Systems Constitutional: Reports daytime sleepiness, Reports fatigue, Reports lethargy, Reports weakness, Reports weight gain Eyes: denies as per HPI, denies blurred vision, denies bulging eye, denies decreased vision, denies diplopia, denies discharge, denies dry eye, denies irritation, denies itching, denies pain, denies photophobia, denies loss of peripheral vision, denies loss of vision, denies tunnel vision/blind spots Ears: deny: decreased hearing, ear discharge, earache, tinnitus Ears, nose, mouth and throat: Reports as per HPI Breasts: absent: as per HPI, change in shape, gynecomastia, masses, nipple discharge, pain, skin changes, swelling Cardiovascular: Reports decreased exercise tolerance, Reports shortness of breath Respiratory: Reports cough, Reports dyspnea, Reports home oxygen, Reports sleep apnea, Reports wheezing Gastrointestinal: Reports as per HPI Genitourinary: Reports as per HPI Menstruation: Reports as per HPI Musculoskeletal: Reports as per HPI Musculoskeletal: absent: ankle pain, ankle stiffness, ankle swelling, as per HPI, elbow pain, elbow stiffness, elbow swelling, foot pain, foot stiffness, foot swelling, hand pain, hand stiffness, hand swelling, hip pain, hip stiffness, hip swelling, knee pain, knee stiffness, knee swelling, shoulder pain, shoulder stiffness, shoulder swelling, wrist pain, wrist stiffness, wrist swelling Integumentary: Reports as per HPI Psychiatric: Reports as per HPI Endocrine: Reports as per HPI, Reports fatigue Hematologic/Lymphatic: Reports as per HPI Allergic/Immunologic: Reports as per HPI Past Medical History Past Medical History: Coronary Artery Disease (CAD), Chest Pain / Angina, COPD, Myocardial Infarction ([place]), Respiratory Disorder Additional Past Medical History / Comment(s): Chronic hypercapnic respiratory fa ilure, home oxygen at 5L/[place] ATC, tracheobronchitis, severe bicuspid aortic valve stenosis, chronic low back pain, DJD History of Any Multi-Drug Resistant Organisms: None Reported Past Surgical History: Breast Surgery, Heart Catheterization With Stent, Tubal Ligation Additional Past Surgical History / Comment(s): Bilateral breast reductions, bilateral cataract removals. Past Anesthesia/Blood Transfusion Reactions: No Reported Reaction Date of Last Stent Placement:: 04/2023 Past Psychological History: Anxiety, Depression Smoking Status: Former smoker Past Alcohol Use History: None Reported Past Drug Use History: None Reported - Past Family History Father History Unknown: Yes Mother Family Medical History: Congestive Heart Failure (CHF), Diabetes Mellitus Medications and Allergies Home Medications Medication Instructions Recorded Confirmed Type Albuterol Inhaler [Ventolin Hfa 2 puff INHALATION RT-Q4H PRN 04/09/22 09/13/23 History Inhaler] Atorvastatin [Lipitor] 40 mg PO HS 04/09/22 09/13/23 History Aspirin 81 mg PO DAILY 30 Days #30 tab 04/12/22 09/13/23 Rx Sertraline [Zoloft] 100 mg PO DAILY 06/15/22 09/13/23 History Budesonide/Formoterol Fumarate 2 puff INHALATION RT-BID 07/13/22 09/13/23 History [Symbicort 160-4.5 Mcg Inhaler] Ipratropium-Albuterol Nebulize 3 ml INHALATION RT-QID PRN 09/23/22 09/13/23 History [Duoneb 0.5 mg-3 mg/3 ml Soln] Dapagliflozin Propanediol [Farxiga] 5 mg PO DAILY 11/19/22 09/13/23 History Yupelri 175mcg/3ml 175 mcg INHALATION RT-DAILY 11/19/22 09/13/23 History hydrOXYzine HCL [Atarax] 25 mg PO BID 11/19/22 09/13/23 History Tiotropium [place] [Spiriva 1 cap INHALATION RT-DAILY 04/19/23 09/13/23 History Handihaler] predniSONE 5 mg PO DAILY 04/19/23 09/13/23 History Acetaminophen Tab [Tylenol] 650 mg PO Q4HR PRN tab 05/18/23 09/13/23 Rx Ipratropium-Albuterol Nebulize 3 ml INHALATION RT-QID #100 each 05/18/23 09/13/23 Rx [Duoneb 0.5 mg-3 mg/3 ml Soln] Meloxicam [Mobic] 7.5 mg PO BID 06/30/23 09/13/23 History Nitroglycerin Sl Tabs [Nitrostat] 0.4 mg SL Q5M PRN 07/24/23 09/13/23 History Furosemide [Lasix] 40 mg PO BID #60 tab 08/09/23 09/13/23 Rx Metoprolol Succinate (ER) [Toprol 25 mg PO TID #60 tab 08/09/23 09/13/23 Rx XL] Potassium Chloride ER [K-Dur 20] 20 meq PO BID #60 tab 08/09/23 09/13/23 Rx lisinopriL 30 mg PO DAILY 09/13/23 09/13/23 History Allergies Allergy/AdvReac Type Severity Reaction Status Date / Time No Known Allergies Allergy Verified 09/13/23 18:39 Physical Exam Vitals: Vital Signs Temp Pulse Pulse Resp BP BP Pulse Ox 09/14/23 12:33 86 09/14/23 12:26 09/14/23 12:22 85 09/14/23 12:05 97.4 F L 86 18 105/70 98 09/14/23 08:07 87 09/14/23 08:03 101 H 09/14/23 08:00 97.6 F 98 18 106/63 95 09/14/23 07:25 89 16 102/81 100 09/14/23 06:23 84 17 102/81 95 09/14/23 03:43 09/14/23 03:00 86 14 114/54 96 09/13/23 23:34 89 15 106/71 98 09/13/23 22:00 99 17 115/101 100 09/13/23 20:42 80 17 09/13/23 20:33 80 17 09/13/23 20:17 96 15 102/61 98 09/13/23 19:27 09/13/23 18:51 91 22 118/67 98 09/13/23 18:24 91 16 105/64 98 09/13/23 17:15 93 18 92/62 95 09/13/23 16:54 102 H 16 99/59 99 09/13/23 16:25 09/13/23 15:38 111 H 16 94/62 09/13/23 14:46 116 H 18 91/57 98 09/13/23 14:32 120 H 96 FiO2 09/14/23 12:33 09/14/23 12:26 50 09/14/23 12:22 09/14/23 12:05 09/14/23 08:07 50 09/14/23 08:03 09/14/23 08:00 09/14/23 07:25 09/14/23 06:23 09/14/23 03:43 50 09/14/23 03:00 09/13/23 23:34 50 09/13/23 22:00 09/13/23 20:42 09/13/23 20:33 09/13/23 20:17 09/13/23 19:27 50 09/13/23 18:51 09/13/23 18:24 09/13/23 17:15 09/13/23 16:54 09/13/23 16:25 50 09/13/23 15:38 09/13/23 14:46 09/13/23 14:32 No acute distress, oriented 3. Morbidly obese with cushingoid features and able to tolerate BiPAP pressure of 16 over 8 cm of water with an FiO2 of 50%. Alert and awake and communicating at this point in time. Head exam was generally normal. There was no scleral icterus or corneal arcus. Mucous membranes were moist. HEENT examination is grossly unremarkable. Mucous membranes are moist. No oral lesions. Neck supple. Full range of motion. No adenopathy thyromegaly or neck vein distention. Cardiovascular examination reveals regular rhythm rate. S1-S2 normal. No S3 or S4. Harsh systolic ejection murmur over the left apex and left lateral sternal border. Heart sounds are distant. Lungs reveal diminished bilateral breath sounds. Scattered rhonchi and wheezes are noted. No crackles. Breath sounds equal bilaterally Abdominal exam revealed normal bowel sounds. The abdomen was soft, non-tender, and without masses, organomegaly, or appreciable enlargement of the abdominal aorta. Extremities are intact. No cyanosis clubbing or edema. Skin is without rash or lesion. Shingles with right lesions in the right upper extremity. No open vesicles at this point in time. Neurologically, the patient is awake and alert and the patient does not have any focal neurological deficit. Cranial nerves are essentially intact. Results - Laboratory Findings CBC and BMP: 09/13/23 14:34 09/13/23 14:34 ABG WBC 15.8 k/uL (3.8-10.6) H 09/13/23 14:34 RBC 3.34 m/uL (3.80-5.40) L 09/13/23 14:34 Hgb 10.1 gm/dL (11.4-16.0) L 09/13/23 14:34 Hct 33.5 % (34.0-46.0) L 09/13/23 14:34 MCV 100.5 fL (80.0-100.0) H 09/13/23 14:34 MCH 30.2 pg (25.0-35.0) 09/13/23 14:34 MCHC 30.1 g/dL (31.0-37.0) L 09/13/23 14:34 RDW 14.6 % (11.5-15.5) 09/13/23 14:34 Plt Count 261 k/uL (150-450) 09/13/23 14:34 MPV 8.5 09/13/23 14:34 Neutrophils % 72 % 09/13/23 14:34 Lymphocytes % 15 % 09/13/23 14:34 Monocytes % 8 % 09/13/23 14:34 Eosinophils % 2 % 09/13/23 14:34 Basophils % 1 % 09/13/23 14:34 Neutrophils # 11.4 k/uL (1.3-7.7) H 09/13/23 14:34 Lymphocytes # 2.3 k/uL (1.0-4.8) 09/13/23 14:34 Monocytes # 1.2 k/uL (0-1.0) H 09/13/23 14:34 Eosinophils # 0.3 k/uL (0-0.7) 09/13/23 14:34 Basophils # 0.1 k/uL (0-0.2) 09/13/23 14:34 Hypochromasia Moderate 09/13/23 14:34 Macrocytosis Slight 09/13/23 14:34 PT 10.4 sec (10.0-12.5) 09/13/23 15:32 INR 0.9 (<1.2) 09/13/23 15:32 APTT 22.7 sec (22.0-30.0) 09/13/23 15:32 Sample Site Left Radial 09/13/23 18:44 ABG pH 7.23 (7.35-7.45) L 09/13/23 18:44 ABG pCO2 84 mmHg (35-45) H* 09/13/23 18:44 ABG pO2 110 mmHg (83-108) H 09/13/23 18:44 ABG HCO3 35 mmol/L (21-25) H 09/13/23 18:44 ABG O2 Saturation 97.9 % (94-97) H 09/13/23 18:44 ABG Base Excess 5.4 mmol/L 09/13/23 18:44 Sarabjit Test Yes 09/13/23 18:44 VBG pH 7.22 (7.31-7.41) L 09/13/23 15:57 VBG pCO2 90 mmHg (37-51) H* 09/13/23 15:57 VBG HCO3 37 mmol/L (24-28) H 09/13/23 15:57 FiO2 50 % 09/13/23 18:44 Sodium 138 mmol/L (137-145) 09/13/23 14:34 Potassium 2.9 mmol/L (3.5-5.1) L 09/13/23 14:34 Chloride 106 mmol/L (98-107) 09/13/23 14:34 Carbon Dioxide 27 mmol/L (22-30) 09/13/23 14:34 Anion Gap 5 mmol/L 09/13/23 14:34 BUN 24 mg/dL (7-17) H 09/13/23 14:34 Creatinine 0.78 mg/dL (0.52-1.04) 09/13/23 14:34 Est GFR (CKD-EPI)AfAm >90 (>60 ml/min/1.73 sqM) 09/13/23 14:34 Est GFR (CKD-EPI)NonAf 82 (>60 ml/min/1.73 sqM) 09/13/23 14:34 Glucose 131 mg/dL (74-99) H 09/13/23 14:34 POC Glucose (mg/dL) 226 mg/dL (70-110) H 09/14/23 12:18 POC Glu Loading Machine Tool Setter ID Vanna Gandhi 09/14/23 12:18 Plasma Lactic Acid Ruslan 1.6 mmol/L (0.7-2.0) 09/13/23 14:34 Calcium 7.0 mg/dL (8.4-10.2) L 09/13/23 14:34 Magnesium 1.4 mg/dL (1.6-2.3) L 09/13/23 14:34 Total Bilirubin 0.4 mg/dL (0.2-1.3) 09/13/23 14:34 AST 25 U/L (14-36) 09/13/23 14:34 ALT 13 U/L (4-34) 09/13/23 14:34 Alkaline Phosphatase 77 U/L (38-126) 09/13/23 14:34 Troponin I 0.034 ng/mL (0.000-0.034) 09/13/23 14:34 NT-Pro-B Natriuret Pep 322 pg/mL 09/13/23 14:34 Total Protein 5.0 g/dL (6.3-8.2) L 09/13/23 14:34 Albumin 2.6 g/dL (3.5-5.0) L 09/13/23 14:34 PT/INR, D-dimer PT 10.4 sec (10.0-12.5) 09/13/23 15:32 INR 0.9 (<1.2) 09/13/23 15:32 Abnormal lab findings: Abnormal Labs 09/13/23 09/13/23 09/13/23 14:34 14:34 15:57 WBC 15.8 H RBC 3.34 L Hgb 10.1 L Hct 33.5 L MCV 100.5 H MCHC 30.1 L Neutrophils # 11.4 H Monocytes # 1.2 H ABG pH ABG pCO2 ABG pO2 ABG HCO3 ABG O2 Saturation VBG pH 7.22 L VBG pCO2 90 H* VBG HCO3 37 H Potassium 2.9 L BUN 24 H Glucose 131 H POC Glucose (mg/dL) Calcium 7.0 L Magnesium 1.4 L Total Protein 5.0 L Albumin 2.6 L 09/13/23 09/14/23 18:44 12:18 WBC RBC Hgb Hct MCV MCHC Neutrophils # Monocytes # ABG pH 7.23 L ABG pCO2 84 H* ABG pO2 110 H ABG HCO3 35 H ABG O2 Saturation 97.9 H VBG pH VBG pCO2 VBG HCO3 Potassium BUN Glucose POC Glucose (mg/dL) 226 H Calcium Magnesium Total Protein Albumin - Diagnostic Findings Chest x-ray: image reviewed Assessment and Plan Plan: Acute on chronic hypoxic respiratory failure. Patient was discharged from the hospital on 08/09/2023 after being treated for CHF/COPD exacerbation and suspecte d right lower lobe pneumonia. She is coming in for another hospitalization and the blood gas clearly shows an acute on top of chronic hypercapnic respiratory failure currently on a BiPAP at a pressure of 16/8 with an FiO2 of 50%. No signs of any CO2 narcosis. Hemodynamically stable. Started on bronchodilators. Started on steroids. Advanced COPD, oxygen dependent at 5 L/min nasal cannula is steroid-dependent at 10 mg of prednisone daily basis, the patient is currently on a combination of Sp iriva and Symbicort on outpatient basis. Ex-smoker. Coronary artery disease, involving the LAD, with 40 to 50% stenosis, and a patent proximal RCA stent. Severe aortic stenosis with a valve surface area of 0.6 cm, previous aortic valve valvuloplasty Shingles history, recovered History of hyperlipidemia. History of hypertension. History of chronic low back pain. Obesity. Prior history of heavy tobacco use. Plan: Continue BiPAP for now at the same settings Continue bronchodilators with DuoNeb updrafts May resume Symbicort during the current hospital stay Continue IV Solu-Medrol Continue Augmentin Continue IV Lasix 40 mg every 12 hours chest x-ray stable and there is no consolidation or airspace disease Keep the patient on KVO IV fluids Incentive spirometer Increase mobility
[2023-09-14] MEDS: ACETAMINOPHEN TAB 325 MG TAB PO PRN (16:19)
[2023-09-14] MEDS: METOPROLOL SUCCINATE (ER) 25 MG TAB.ER.24H PO SCH (16:20)
[2023-09-14 17:06] LABS: Glucose,Whole Blood 213 mg/dL (70-110)
[2023-09-14] MEDS: FUROSEMIDE 10 MG/ML 4 ML VIAL IV SCH (20:40)
[2023-09-14] MEDS: methylPREDNISolone SOD SUCCI 40 MG/ML 1 ML VIAL IV SCH (20:41)
[2023-09-14 21:24] LABS: Glucose,Whole Blood 182 mg/dL (70-110)
[2023-09-14] MEDS: SYMBICORT 160-4.5 MCG INHALER INHALATION SCH (21:52)
[2023-09-14] MEDS: HYDROcodone/APAP 5-325MG 1 EACH TAB PO STA (23:54)
[2023-09-15 06:16] LABS: Glucose,Whole Blood 234 mg/dL (70-110)
[2023-09-15 08:39] LABS: African American GFR (CKD) 71 (>60 ml/min/1.73 sqM); Anion Gap 1 mmol/L; Blood Urea Nitrogen 42 mg/dL (7-17); Calcium 9.3 mg/dL (8.4-10.2); Carbon Dioxide 38 mmol/L (22-30); Chloride 98 mmol/L (98-107); Glucose 182 mg/dL (74-99); Non-African American GFR(CKD) 62 (>60 ml/min/1.73 sqM); Potassium 5.2 mmol/L (3.5-5.1); Sodium 137 mmol/L (137-145)
[2023-09-15 09:08] LABS: Basophils % (A) 0 %; Eosinophils % (A) 0 %; HCT 29.4 % (34.0-46.0); HGB 8.7 gm/dL (11.4-16.0); Hypochromasia Marked; Lymphocytes # (A) 0.5 k/uL (1.0-4.8); Lymphocytes % (A) 3 %; MCH 30.3 pg (25.0-35.0); MCHC 29.6 g/dL (31.0-37.0); MCV 102.3 fL (80.0-100.0); Macrocytosis Slight; Mean Platelet Volume 8.4; Monocytes # (A) 0.7 k/uL (0-1.0); Monocytes % (A) 4 %; Neutrophils # (A) 15.9 k/uL (1.3-7.7); Neutrophils % (A) 92 %; Platelet Count 236 k/uL (150-450); RBC 2.87 m/uL (3.80-5.40); RDW 14.6 % (11.5-15.5); WBC 17.3 k/uL (3.8-10.6)
[2023-09-15] MEDS: DAPAGLIFLOZIN PROPANEDIOL 5 MG TABLET PO SCH (09:21)
[2023-09-15] MEDS: AMIODARONE 200 MG TAB PO SCH (09:21)
[2023-09-15] MEDS: lisinopriL 10 MG TAB PO SCH (09:25)
--- NOTE | 2023-09-15 11:13 | XR ---
EXAMINATION TYPE: XR ribs RT DATE OF EXAM: 09/15/2023 9:12 AM CLINICAL INDICATION:Female, 63 years old with history of Pain posterior ribs; [facility] COMPARISON: TECHNIQUE: XR ribs RT; Frontal and oblique views of the ribs with frontal chest radiograph. FINDINGS: The ribs have a normal appearance. No evidence of fracture. Overall, the lungs are clear. The cardiac silhouette is normal in size. The remaining osseous structures are intact. IMPRESSION: Limited evaluation due to overlapping soft tissues and poor penetration. No obvious displaced rib fra cture visualized.
--- NOTE | 2023-09-15 11:18 | P.CRDCN ---
History of Present Illness Consult date: 09/15/23 Reason for Consult (text): SVT History of present illness: History of present illness: This is a 63-year-old female of Dr. Hinkle with past medical history of coronary artery disease with previous stent of the RCA, COPD on home oxygen, obstructive sleep apnea on CPAP, bicuspid aortic valve with severe stenosis status post balloon aortic valvuloplasty on 07/29/2023, hypertension, hyperlipidemia, and former nicotine dependence. We have been asked to evaluate the patient for SVT. Patient presented to the hospital due to shortness of breath and worsening pulmonary function. Patient presented with heart rate of 210, respiratory rate 26, pulse ox was 90% on 6 L nasal cannula. Patient states her breathing is improved since she arrived. She is complaining of pain on the right thoracic rib area. She states she took Tylenol yesterday that did not help. Regarding aortic stenosis, patient is status post aortic valvuloplasty and is to be worked up for TAVR but due to difficulty getting to appointments and ongoing problems with her respiratory status, this has been delayed. EKG #1 SVT 194 bpm, #2 sinus tachycardia 124 bpm Chest x-ray: No acute process Laboratory studies: WBC 17.3, hemoglobin 8.7. BUN 42 creatinine 0.98, potassium 5.2 (previously 2.9). Procalcitonin 0.15. Troponin negative x 1. proBNP 322. Home cardiac medications: Aspirin 81 mg daily, atorvastatin 40 mg at bedtime, Farxiga 5 mg daily, Lasix 40 mg twice daily, lisinopril 30 mg daily, Toprol-XL 25 mg 3 times daily, Nitrostat as needed, potassium 20 mill equivalents twice daily. 07/29/2023: Balloon aortic valvuloplasty with Dr. Hinkle Echocardiogram performed on 07/28/2023 reveals aortic valve gradient 75 mm to 38 mm. Mild to moderate mitral regurgitation. Cardiac catheterization performed 07/24/2023 reveals mid LAD 40 to 50% stenosis and patent proximal RCA stent. Review Of Systems: At the time of my exam: CONSTITUTIONAL: Denies fever or chills. HEENT: Denies blurred vision, vision changes, or eye pain. Denies hemoptysis CARDIOVASCULAR: Denies chest pain. Denies orthopnea. Denies PND. Denies palpitations RESPIRATORY: Reports shortness of breath. GASTROINTESTINAL: Denies abdominal pain. Denies nausea or vomiting. HEMATOLOGIC: Denies bleeding disorders. GENITOURINARY: Denies any blood in urine. SKIN: Denies pruitis. Denies rash. Physical examination: Gen: This is a 63-year-old female appears to be in no acute respiratory distress. VS: reviewed, blood pressure 94/61, heart rate 87, pulse ox 90% on 5 L nasal cannula. HEENT: Head is atraumatic, normocephalic. Pupils equal, round. Sclerae is anicteric. NECK: Supple. No JVD. LUNGS: Diminished breath sounds, rhonchi and wheezing. No intercostal retractions. HEART: Regular rate and rhythm. Systolic ejection murmur. ABDOMEN: Soft No tenderness. EXTREMITIES: No pedal edema. No calf tenderness. NEUROLOGICAL: Patient is awake, alert and oriented x3. Assessment: Acute hypoxic and hypercapnic respiratory failure secondary to obesity hypoventilation syndrome, COPD exacerbation Respiratory acidosis Paroxysmal SVT, now in a sinus rhythm Critical aortic stenosis status post balloon aortic valvuloplasty on 07/29/2023. OP TAVR workup delayed due to frequent hospitalizations and poor respiratory status. Right rib pain Coronary artery disease with previous PCI Hypertension Hyperlipidemia Former tobacco use Plan: Resume patient's home cardiac medications Right rib x-rays ordered No need to repeat echocardiogram Continue telemetry monitoring Further recommendations to follow based upon clinical course Thank you kindly for this consultation. Nurse practitioner note has been reviewed, I agree with documented findings and plan of care. Patient was seen and examined. Past Medical History Past Medical History: Coronary Artery Disease (CAD), Chest Pain / Angina, COPD, Myocardial Infarction (CT), Respiratory Disorder Additional Past Medical History / Comment(s): Chronic hypercapnic respiratory failure, home oxygen at 5L/NC ATC, tracheobronchitis, severe bicuspid aortic valve stenosis, chronic low back pain, DJD Last Myocardial Infarction Date:: 04/2023 History of Any Multi-Drug Resistant Organisms: None Reported Past Surgical History: Breast Surgery, Heart Catheterization With Stent, Tubal Ligation Additional Past Surgical History / Comment(s): Bilateral breast reductions, bilateral cataract removals. Past Anesthesia/Blood Transfusion Reactions: No Reported Reaction Date of Last Stent Placement:: 04/2023 Past Psychological History: Anxiety, Depression Additional Psychological History / Comment(s): Pt resides with her spouse. She has home oxygen and a nebulizer. She chooses not to drive, her spouse drives. She had [facility] after last hospitalization but no longer coming to home. Smoking Status: Former smoker Past Alcohol Use History: None Reported Additional Past Alcohol Use History / Comment(s): Pt started smoking as a teen and quit within the last 5 years ago. She was a 2 ppd smoker. Past Drug Use History: None Reported - Past Family History Father History Unknown: Yes Mother Family Medical History: Congestive Heart Failure (CHF), Diabetes Mellitus Medications and Allergies Home Medications Medication Instructions Recorded Confirmed Type Albuterol Inhaler [Ventolin Hfa 2 puff INHALATION RT-Q4H PRN 04/09/22 09/13/23 History Inhaler] Atorvastatin [Lipitor] 40 mg PO HS 04/09/22 09/13/23 History Aspirin 81 mg PO DAILY 30 Days #30 tab 04/12/22 09/13/23 Rx Sertraline [Zoloft] 100 mg PO DAILY 06/15/22 09/13/23 History Budesonide/Formoterol Fumarate 2 puff INHALATION RT-BID 07/13/22 09/13/23 History [Symbicort 160-4.5 Mcg Inhaler] Ipratropium-Albuterol Nebulize 3 ml INHALATION RT-QID PRN 09/23/22 09/13/23 History [Duoneb 0.5 mg-3 mg/3 ml Soln] Dapagliflozin Propanediol [Farxiga] 5 mg PO DAILY 11/19/22 09/13/23 History Yupelri 175mcg/3ml 175 mcg INHALATION RT-DAILY 11/19/22 09/13/23 History hydrOXYzine HCL [Atarax] 25 mg PO BID 11/19/22 09/13/23 History Tiotropium [place] [Spiriva 1 cap INHALATION RT-DAILY 04/19/23 09/13/23 History Handihaler] predniSONE 5 mg PO DAILY 04/19/23 09/13/23 History Acetaminophen Tab [Tylenol] 650 mg PO Q4HR PRN tab 05/18/23 09/13/23 Rx Ipratropium-Albuterol Nebulize 3 ml INHALATION RT-QID #100 each 05/18/23 09/13/23 Rx [Duoneb 0.5 mg-3 mg/3 ml Soln] Meloxicam [Mobic] 7.5 mg PO BID 06/30/23 09/13/23 History Nitroglycerin Sl Tabs [Nitrostat] 0.4 mg SL Q5M PRN 07/24/23 09/13/23 History Furosemide [Lasix] 40 mg PO BID #60 tab 08/09/23 09/13/23 Rx Metoprolol Succinate (ER) [Toprol 25 mg PO TID #60 tab 08/09/23 09/13/23 Rx XL] Potassium Chloride ER [K-Dur 20] 20 meq PO BID #60 tab 08/09/23 09/13/23 Rx lisinopriL 30 mg PO DAILY 09/13/23 09/13/23 History Allergies Allergy/AdvReac Type Severity Reaction Status Date / Time No Known Allergies Allergy Verified 09/13/23 18:39 Physical Exam Vitals: Vital Signs Temp Pulse Pulse Resp BP BP Pulse Ox 09/15/23 04:48 09/15/23 04:00 66 13 95/57 99 09/15/23 00:58 09/15/23 00:00 106 H 20 103/53 99 09/14/23 21:30 98.2 F 114 H 22 117/71 96 09/14/23 21:10 98.2 F 105 H 20 105/69 93 L 09/14/23 19:57 105 H 09/14/23 19:49 108 H 09/14/23 19:28 114 H 19 119/70 98 09/14/23 16:00 98 F 101 H 20 107/66 99 09/14/23 15:21 110 H 09/14/23 15:09 112 H 09/14/23 14:50 103 H 09/14/23 12:33 86 09/14/23 12:26 09/14/23 12:22 85 09/14/23 12:05 97.4 F L 86 18 105/70 98 FiO2 09/15/23 04:48 50 09/15/23 04:00 09/15/23 00:58 50 09/15/23 00:00 09/14/23 21:30 09/14/23 21:10 09/14/23 19:57 09/14/23 19:49 50 09/14/23 19:28 09/14/23 16:00 09/14/23 15:21 09/14/23 15:09 09/14/23 14:50 09/14/23 12:33 09/14/23 12:26 50 09/14/23 12:22 09/14/23 12:05 Intake and Output 09/14/23 09/15/23 09/15/23 22:59 06:59 14:59 Intake Total 540 540 Balance 540 540 Intake: Oral 540 540 Other: Voiding Method Bedside Commode Bedside Commode # Voids 1 Weight 96.162 kg Results 09/15/23 07:54 09/15/23 07:54 Comprehensive Metabolic Panel 09/15/23 Range/Units 07:54 Sodium 137 (137-145) mmol/L Potassium 5.2 H (3.5-5.1) mmol/L Chloride 98 (98-107) mmol/L Carbon Dioxide 38 H (22-30) mmol/L BUN 42 H (7-17) mg/dL Creatinine 0.98 (0.52-1.04) mg/dL Glucose 182 H (74-99) mg/dL Calcium 9.3 (8.4-10.2) mg/dL Current Medications Generic Name Dose Route Start Last Admin Trade Name Freq PRN Reason Stop Dose Admin Acetaminophen 650 mg 09/13/23 19:29 09/14/23 16:19 Acetaminophen Tab 325 Mg Tab PO 650 mg Q4HR PRN Administration Fever and/or Mild Pain Albuterol/Ipratropium 3 ml 09/13/23 20:00 09/14/23 19:49 Ipratropium-Albuterol 3 Ml Neb INHALATION 3 ml RT-QID CHANTEL Administration Albuterol/Ipratropium 3 ml 09/13/23 19:29 Ipratropium-Albuterol 3 Ml Neb INHALATION RT-Q2H PRN Shortness Of Breath Or Wheezing Amoxicillin/Clavulanate Potassium 1 each 09/13/23 21:00 09/14/23 20:35 Amoxic-Pot Clav 875-125mg 1 Each Tab PO 09/18/23 09:01 1 each Q12HR CHANTEL Administration Protocol Aspirin 81 mg 09/14/23 09:00 09/14/23 08:29 Aspirin 81 Mg PO 81 mg DAILY CHANTEL Administration Atorvastatin Calcium 40 mg 09/13/23 21:00 09/14/23 20:37 Atorvastatin 40 Mg Tab PO 40 mg HS CHANTEL Administration Budesonide/Formoterol Fumarate 2 puff 09/14/23 20:00 09/14/23 21:52 Symbicort 160-4.5 Mcg Inhaler INHALATION Not Given RT-BID CHANTEL Dapagliflozin 5 mg 09/15/23 09:00 Dapagliflozin Propanediol 5 Mg Tablet PO DAILY CHANTEL Dextrose/Water 25 ml 09/14/23 11:41 Dextrose 50% Syringe 50 Ml IVP PER PROTOCOL PRN Hypoglycemia Protocol Dextrose/Water 50 ml 09/14/23 11:41 Dextrose 50% Syringe 50 Ml IVP PER PROTOCOL PRN Hypoglycemia Protocol Furosemide 40 mg 09/14/23 21:00 09/14/23 20:40 Furosemide 10 Mg/Ml 4 Ml Vial IV 40 mg Q12HR CHANTEL Administration Heparin Sodium (Porcine) 5,000 unit 09/14/23 12:00 09/15/23 03:46 Heparin Sodium,Porcine 5,000 Unit/Ml 1 Ml Vial SQ Not Given Q8H CHANTEL Hydroxyzine HCl 25 mg 09/13/23 21:00 09/14/23 21:25 Hydroxyzine Hcl 25 Mg Tab PO 25 mg BID CHANTEL Administration Insulin Aspart 0 unit 09/14/23 12:30 09/15/23 06:27 Insulin Aspart (Novolog) 100 Unit/Ml Vial SQ 8 unit ACHS CHANTEL Administration Protocol Lisinopril 30 mg 09/15/23 09:00 Lisinopril 10 Mg Tab PO DAILY [facility] Methylprednisolone Sodium Succinate 40 mg 09/14/23 21:00 09/14/23 20:41 Methylprednisolone Sod Succi 40 Mg/Ml 1 Ml Vial IV 40 mg Q12HR CHANTEL Administration Metoprolol Succinate 25 mg 09/14/23 16:00 09/14/23 21:24 Metoprolol Succinate (Er) 25 Mg Tab.Er.24h PO 25 mg TID CHANTEL Administration Naloxone HCl 0.2 mg 09/13/23 19:24 Naloxone 0.4 Mg/Ml 1 Ml Vial IVP Q2M PRN Opioid Reversal Potassium Chloride 20 meq 09/13/23 21:00 09/14/23 20:37 Potassium Chloride Er 20 Meq Tab.Er PO 20 meq BID CHANTEL Administration Sertraline HCl 100 mg 09/14/23 09:00 09/14/23 08:29 Sertraline 100 Mg Tab PO 100 mg DAILY CHANTEL Administration Intake and Output 09/14/23 09/15/23 09/15/23 22:59 06:59 14:59 Intake Total 540 540 Balance 540 540 Intake: Oral 540 540 Other: Voiding Method Bedside Commode Bedside Commode # Voids 1 Weight 96.162 kg 09/13/23 14:34 09/15/23 07:54
[2023-09-15 11:30] LABS: Glucose,Whole Blood 126 mg/dL (70-110)
--- NOTE | 2023-09-15 13:50 | P.PN ---
Subjective Progress Note Date: 09/15/23 64-year-old female patient presents to the emergency because of difficulty in breathing. Apparently, she has been experiencing worsening shortness of breath over the past few days and she has become hypoxic. No reported fever or chills or night sweats. No hemoptysis or pleurisy. She does have a chronic cough. She has chronic lower extremity edema. The patient is known to me from previous hospital admissions. She has chronic hypoxic maintained on oxygen 5 L/min nasal cannula and the patient has been maintained on prednisone at a dose of 10 mg p.o. daily and DuoNeb updrafts. Her last hospital admission was back in July 2023. At that time, I evaluated and treated this patient. The patient had an acute on top of chronic hypoxic respiratory failure and she required high flow oxygen for a considerable period of time and she gradually improved. During the course of her illness, the patient was treated with a combination of bronchodilators, steroids and diuretics. She is known to have CAD with previous stenting of the RCA and she does have some residual stenosis of the LAD in the order of 40 to 50%. She suffered some severe aortic valve stenosis and she has undergone valvuloplasty, she has hypertension, hyperlipidemia, obesity, chronic back pain, and possibly obstructive sleep apnea. The patient was discharged home on 08/09/2023 as her oxygenation status improved and she was discharged home on 7 L of oxygen by nasal cannula. Currently she is on a BiPAP pressure of 16 over 8 cm of water with an FiO2 of 50%. The blood gas showed a pH of 7.23 with a pCO2 of 84 and a pO2 of 110. BUN is 24 with a creatinine of 0.7. Sodium is at 138 with a potassium level of 2.9. The white cell count is 15.8 with a hemoglobin of 10.1 and a platelet count of 261. Normal coagulation profile. Chest x-ray from this current admission was noted and reviewed and compared to the earlier chest x-rays. There is an obvious improvement in the right lower lobe consolidation as well as noted earlier. She is alert and awake and communicating. [facility], IV Solu-Medrol 40 mg every 12 hours. She is also on Lasix 40 mg p.o. twice a day. 09/15/2023, the patient is being seen for a follow-up. Less short of breath compared to yesterday. The patient utilized the BiPAP throughout the night at a pressure of 16 over 5 cm of water. The patient is currently on oxygen 5 L/min nasal cannula with a pulse ox of 98%. No signs of any CO2 narcosis. No chest pain. She has chronic dyspnea with limited exercise capacity due to her advanced COPD. On her chest x-ray, there is no clear indication for an underlying pneumonia. X-ray of the ribs were also done as the patient was having some right sided chest wall pain. This was a limited evaluation due to overlapping of the soft tissue and poor penetration. However, there was no displaced fractures. WBC count at 17 with a hemoglobin 8.7 and a platelet count of 236. Electrolytes show a BUN of 42 with a creatinine of 0.9 and sodium levels of 137 with a potassium level of 5.2. She remains on DuoNeb updrafts. She remains on Augmentin. She remains on Symbicort as maintenance. She is on Lasix 40 mg IV every 12 hours. She is also on IV Solu-Medrol 40 mg every 12 hours. Awake and alert. Denies having any other specific complaints for now. Objective - Vital Signs Vital signs: Vital Signs Temp 98.1 F 09/15/23 09:20 Pulse 87 09/15/23 09:20 Resp 18 09/15/23 09:20 BP 94/61 09/15/23 09:20 Pulse Ox 90 L 09/15/23 09:20 FiO2 50 09/15/23 04:48 Intake & Output 09/14/23 09/15/23 09/15/23 18:59 06:59 18:59 Intake Total 1080 20 Balance 1080 20 Weight 96.162 kg Intake: IV 20 Invasive Line 1 10 Invasive Line 2 10 Oral 1080 Other: Voiding Method Bedside Commode Bedside Commode # Voids 2 1 # Bowel Movements 0 - Exam No acute distress, oriented 3. Morbidly obese with cushingoid features and the patient is currently on 5 L of O2 nasal cannula Head exam was generally normal. There was no scleral icterus or corneal arcus. Mucous membranes were moist. HEENT examination is grossly unremarkable. Mucous membranes are moist. No oral lesions. Neck supple. Full range of motion. No adenopathy thyromegaly or neck vein distention. Cardiovascular examination reveals regular rhythm rate. S1-S2 normal. No S3 or S4. Harsh systolic ejection murmur over the left apex and left lateral sternal border. Heart sounds are distant. Lungs reveal diminished bilateral breath sounds. Scattered rhonchi and wheezes are noted. No crackles. Breath sounds equal bilaterally Abdominal exam revealed normal bowel sounds. The abdomen was soft, non-tender, and without masses, organomegaly, or appreciable enlargement of the abdominal aorta. Extremities are intact. No cyanosis clubbing or edema. Skin is without rash or lesion. Shingles with right lesions in the right upper extremity. No open vesicles at this point in time. Neurologically, the patient is awake and alert and the patient does not have any focal neurological deficit. Cranial nerves are essentially intact. - Labs CBC & Chem 7: 09/15/23 07:54 09/15/23 07:54 Labs: Abnormal Lab Results - Last 24 Hours (Table) 09/14/23 09/14/23 09/14/23 Range/Units 12:18 12:40 17:04 WBC (3.8-10.6) k/uL RBC (3.80-5.40) m/uL Hgb (11.4-16.0) gm/dL Hct (34.0-46.0) % MCV (80.0-100.0) fL MCHC (31.0-37.0) g/dL Neutrophils # (1.3-7.7) k/uL Lymphocytes # (1.0-4.8) k/uL Potassium (3.5-5.1) mmol/L Carbon Dioxide (22-30) mmol/L BUN (7-17) mg/dL Glucose (74-99) mg/dL POC Glucose (mg/dL) 226 H 213 H (70-110) mg/dL Procalcitonin 0.15 H (0.02-0.09) ng/mL 09/14/23 09/15/23 09/15/23 Range/Units 21:22 06:15 07:54 WBC 17.3 H (3.8-10.6) k/uL RBC 2.87 L (3.80-5.40) m/uL Hgb 8.7 L (11.4-16.0) gm/dL Hct 29.4 L (34.0-46.0) % MCV 102.3 H (80.0-100.0) fL MCHC 29.6 L (31.0-37.0) g/dL Neutrophils # 15.9 H (1.3-7.7) k/uL Lymphocytes # 0.5 L (1.0-4.8) k/uL Potassium (3.5-5.1) mmol/L Carbon Dioxide (22-30) mmol/L BUN (7-17) mg/dL Glucose (74-99) mg/dL POC Glucose (mg/dL) 182 H 234 H (70-110) mg/dL Procalcitonin (0.02-0.09) ng/mL 09/15/23 Range/Units 07:54 WBC (3.8-10.6) k/uL RBC (3.80-5.40) m/uL Hgb (11.4-16.0) gm/dL Hct (34.0-46.0) % MCV (80.0-100.0) fL MCHC (31.0-37.0) g/dL Neutrophils # (1.3-7.7) k/uL Lymphocytes # (1.0-4.8) k/uL Potassium 5.2 H (3.5-5.1) mmol/L Carbon Dioxide 38 H (22-30) mmol/L BUN 42 H (7-17) mg/dL Glucose 182 H (74-99) mg/dL POC Glucose (mg/dL) (70-110) mg/dL Procalcitonin (0.02-0.09) ng/mL Microbiology - Last 24 Hours (Table) 09/13/23 14:34 Blood Culture - Preliminary Blood 09/13/23 14:34 Blood Culture - Preliminary Blood Assessment and Plan Plan: Acute on chronic hypoxic respiratory failure. Patient was discharged from the hospital on 08/09/2023 after being treated for CHF/COPD exacerbation and suspected right lower lobe pneumonia. She is coming in for another hospitalization and the blood gas clearly shows an acute on top of chronic hypercapnic respiratory failure currently on of the BiPAP. The patient is still using the BiPAP overnight and she was transition to 5 L of oxygen by nasal cannula. This is her baseline oxygen requirements. She has chronic shortness of breath and chronic hypoxic respiratory failure. Acute decompensation seems to have improved for now. Advanced COPD, oxygen dependent at 5 L/min nasal cannula is steroid-dependent at 10 mg of prednisone daily basis, the patient is currently on a combination of Spiriva and Symbicort on outpatient basis. Ex-smoker. Coronary artery disease, involving the LAD, with 40 to 50% stenosis, and a patent proximal RCA stent. Severe aortic stenosis with a valve surface area of 0.6 cm, previous aortic valve valvuloplasty Shingles history, recovered History of hyperlipidemia. History of hypertension. History of chronic low back pain. Obesity. Prior history of heavy tobacco use. Plan: Continue BiPAP for now at the same settings, and this will be essentially denied overnight. I am also contemplating a noninvasive positive pressure ventilation for this patient to be utilized on an outpatient basis. No signs of any CO2 narcosis Monitor hemoglobin Continue bronchodilators with DuoNeb updrafts Continue Symbicort Continue IV Solu-Medrol, 40 mg IV every 12 hours. Continue Augmentin Continue IV Lasix 40 mg every 12 hours chest x-ray stable and there is no consolidation or airspace disease Keep the patient on KVO IV fluids Incentive spirometer Increase mobility
[2023-09-15] MEDS: KETOROLAC 15 MG/ML 1 ML VIAL IVP STA (15:11)
[2023-09-15 16:49] LABS: Glucose,Whole Blood 187 mg/dL (70-110)
--- NOTE | 2023-09-15 17:56 | P.PN ---
Subjective Progress Note Date: 09/15/23 63-year-old female came in with complaints of shortness of breath. Patient is found to be in hypercapnic and hypoxic respiratory failure with ABG showing pH of 7.23 pCO2 of 84 bicarbonate of 35. Patient usually uses 5 L of oxygen does have sleep apnea with CPAP machine is morbidly obese. Patient does have history of COPD and history of smoking in the past as well. Patient is also found to be in SVT which resolved at this time patient is presently sinus tachycardia. Patient does not smoke anymore. Patient had any fever chills chest x-ray did not show any pneumonia patient is not in heart failure but takes 40 mg of Lasix for possibly peripheral edema twice a day with very low potassium of 2.9 patient appears to have severe aortic stenosis, may be diastolic dysfunction. Patient was started on Augmentin patient may have bronchitis but no evidence of pneumonia at this time will obtain a procalcitonin level. Objective - Vital Signs Vital signs: Vital Signs Temp 98.1 F 09/15/23 09:20 Pulse 102 H 09/15/23 12:07 Resp 18 09/15/23 11:51 BP 81/43 09/15/23 11:51 Pulse Ox 92 L 09/15/23 11:59 FiO2 50 09/15/23 04:48 Intake & Output 09/14/23 09/15/23 09/15/23 18:59 06:59 18:59 Intake Total 1080 20 Balance 1080 20 Weight 96.162 kg Intake: IV 20 Invasive Line 1 10 Invasive Line 2 10 Oral 1080 Other: Voiding Method Bedside Commode Bedside Commode # Voids 2 1 # Bowel Movements 0 - Exam GENERAL: The patient is alert and oriented x3, not in any acute distress. Well developed, well nourished. HEENT: Pupils are round and equally reacting to light. EOMI. No scleral icterus. No conjunctival pallor. Normocephalic, atraumatic. No pharyngeal erythema. No thyromegaly. CARDIOVASCULAR: S1 and S2 present. No murmurs, rubs, or gallops. PULMONARY: Chest is clear to auscultation, no wheezing or crackles. ABDOMEN: Soft, nontender, nondistended, normoactive bowel sounds. No palpable organomegaly. MUSCULOSKELETAL: No joint swelling or deformity. EXTREMITIES: No cyanosis, clubbing, or pedal edema. NEUROLOGICAL: Gross neurological examination did not reveal any focal deficits. SKIN: No rashes. - Labs CBC & Chem 7: 09/15/23 07:54 09/15/23 07:54 Labs: Abnormal Lab Results - Last 24 Hours (Table) 09/14/23 09/14/23 09/14/23 Range/Units 12:40 17:04 21:22 WBC (3.8-10.6) k/uL RBC (3.80-5.40) m/uL Hgb (11.4-16.0) gm/dL Hct (34.0-46.0) % MCV (80.0-100.0) fL MCHC (31.0-37.0) g/dL Neutrophils # (1.3-7.7) k/uL Lymphocytes # (1.0-4.8) k/uL Potassium (3.5-5.1) mmol/L Carbon Dioxide (22-30) mmol/L BUN (7-17) mg/dL Glucose (74-99) mg/dL POC Glucose (mg/dL) 213 H 182 H (70-110) mg/dL Hemoglobin A1c (<=6.0) % Procalcitonin 0.15 H (0.02-0.09) ng/mL 09/15/23 09/15/23 09/15/23 Range/Units 06:15 07:54 07:54 WBC 17.3 H (3.8-10.6) k/uL RBC 2.87 L (3.80-5.40) m/uL Hgb 8.7 L (11.4-16.0) gm/dL Hct 29.4 L (34.0-46.0) % MCV 102.3 H (80.0-100.0) fL MCHC 29.6 L (31.0-37.0) g/dL Neutrophils # 15.9 H (1.3-7.7) k/uL Lymphocytes # 0.5 L (1.0-4.8) k/uL Potassium (3.5-5.1) mmol/L Carbon Dioxide (22-30) mmol/L BUN (7-17) mg/dL Glucose (74-99) mg/dL POC Glucose (mg/dL) 234 H (70-110) mg/dL Hemoglobin A1c 7.3 H (<=6.0) % Procalcitonin (0.02-0.09) ng/mL 09/15/23 09/15/23 Range/Units 07:54 11:29 WBC (3.8-10.6) k/uL RBC (3.80-5.40) m/uL Hgb (11.4-16.0) gm/dL Hct (34.0-46.0) % MCV (80.0-100.0) fL MCHC (31.0-37.0) g/dL Neutrophils # (1.3-7.7) k/uL Lymphocytes # (1.0-4.8) k/uL Potassium 5.2 H (3.5-5.1) mmol/L Carbon Dioxide 38 H (22-30) mmol/L BUN 42 H (7-17) mg/dL Glucose 182 H (74-99) mg/dL POC Glucose (mg/dL) 126 H (70-110) mg/dL Hemoglobin A1c (<=6.0) % Procalcitonin (0.02-0.09) ng/mL Microbiology - Last 24 Hours (Table) 09/13/23 14:34 Blood Culture - Preliminary Blood 09/13/23 14:34 Blood Culture - Preliminary Blood Assessment and Plan Assessment: -Acute hypoxic and hypercapnic respiratory failure secondary to obesity hypoventilation syndrome sleep apnea and COPD exacerbation patient was started on 40 mg IV steroids twice a day continue with Augmentin and breathing treatments. Pulmonary will be consulted. Patient is presently requiring BiPAP -Respiratory acidosis with partial compensation: Patient is in COPD exacerbation continue with BiPAP repeat ABGs -Severe arctic stenosis -SVT on admission presently sinus tachycardia: Patient was started back on metoprolol. SVT secondary to hypoxemia -Possibly chronic diastolic function patient is not in acute exacerbation but patient will be resumed on oral Lasix -Hypokalemia secondary to Lasix will replace potassium -Coronary disease with myocardial infarction in the past -Obesity appellation syndrome sleep apnea -Depression DVT prophylaxis: Subcutaneous heparin not Lovenox
[2023-09-15 19:57] LABS: Glucose,Whole Blood 192 mg/dL (70-110)
[2023-09-16] MEDS: IPRATROPIUM-ALBUTEROL 3 ML NEB INHALATION PRN (00:15)
[2023-09-16 06:08] LABS: Glucose,Whole Blood 186 mg/dL (70-110)
[2023-09-16 08:04] LABS: African American GFR (CKD) 78 (>60 ml/min/1.73 sqM); Blood Urea Nitrogen 47 mg/dL (7-17); Chloride 100 mmol/L (98-107); Glucose 149 mg/dL (74-99); Non-African American GFR(CKD) 68 (>60 ml/min/1.73 sqM); Potassium 4.7 mmol/L (3.5-5.1); Sodium 138 mmol/L (137-145)
[2023-09-16 08:11] LABS: Anion Gap -1 mmol/L
[2023-09-16 08:16] LABS: Carbon Dioxide 39 mmol/L (22-30)
--- NOTE | 2023-09-16 10:17 | P.PN ---
Subjective Progress Note Date: 09/16/23 Reason for Consult (text): SVT History of present illness: This is a 63-year-old female of Dr. Hinkle with past medical history of coronary artery disease with previous stent of the RCA, COPD on home oxygen, obstructive sleep apnea on CPAP, bicuspid aortic valve with severe stenosis status post balloon aortic valvuloplasty on 07/29/2023, hypertension, hyperlipidemia, and former nicotine dependence. We have been asked to evaluate the patient for SVT. Patient presented to the hospital due to shortness of breath and worsening pulmonary function. Patient presented with heart rate of 210, respiratory rate 26, pulse ox was 90% on 6 L nasal cannula. Patient states her breathing is improved since she arrived. She is complaining of pain on the right thoracic rib area. She states she took Tylenol yesterday that did not help. Regarding aortic stenosis, patient is status post aortic valvuloplasty and is to be worked up for TAVR but due to difficulty getting to appointments and ongoing problems with her respiratory status, this has been delayed. EKG #1 SVT 194 bpm, #2 sinus tachycardia 124 bpm Chest x-ray: No acute process Laboratory studies: WBC 17.3, hemoglobin 8.7. BUN 42 creatinine 0.98, potassium 5.2 (previously 2.9). Procalcitonin 0.15. Troponin negative x 1. proBNP 322. Home cardiac medications: Aspirin 81 mg daily, atorvastatin 40 mg at bedtime, Farxiga 5 mg daily, Lasix 40 mg twice daily, lisinopril 30 mg daily, Toprol-XL 25 mg 3 times daily, Nitrostat as needed, potassium 20 mill equivalents twice daily. 07/29/2023: Balloon aortic valvuloplasty with Dr. Hinkle Echocardiogram performed on 07/28/2023 reveals aortic valve gradient 75 mm to 38 mm. Mild to moderate mitral regurgitation. Cardiac catheterization performed 07/24/2023 reveals mid LAD 40 to 50% stenosis and patent proximal RCA stent. 09/15 Patient has been in a sinus rhythm in the 60s to 80s, blood pressure 99/48, pulse ox 98% on BiPAP. Repeat blood work reveals potassium 4.7, BUN 47 creatinine 0.91. Rib x-rays were ordered yesterday as patient was complaining of posterior thoracic pain with significant coughing. X-ray revealed no displaced rib fracture visualized. Yesterday, we started patient on amiodarone 200 mg twice daily. Patient states she still feels short of breath but a little better. + cough. Physical examination: Gen: This is a 63-year-old female appears to be in no acute respiratory distress. VS: reviewed HEENT: Head is atraumatic, normocephalic. Pupils equal, round. Sclerae is anicteric. NECK: Supple. No JVD. LUNGS: Diminished breath sounds, rhonchi and wheezing. No intercostal retractions. HEART: Regular rate and rhythm. Systolic ejection murmur. ABDOMEN: Soft No tenderness. EXTREMITIES: No pedal edema. No calf tenderness. NEUROLOGICAL: Patient is awake, alert and oriented x3. Assessment: Acute hypoxic and hypercapnic respiratory failure secondary to obesity hypoventilation syndrome, COPD exacerbation Respiratory acidosis Paroxysmal SVT, now in a sinus rhythm Critical aortic stenosis status post balloon aortic valvuloplasty on 07/29/2023. OP TAVR workup delayed due to frequent hospitalizations and poor respiratory status. Right rib pain Coronary artery disease with previous PCI Hypertension Hyperlipidemia Former tobacco use Plan: Continue patient's home cardiac medications Repeat echocardiogram to evaluate AV Repeat TSH Continue addition of Amiodarone 200 mg bid Continue telemetry monitoring Further recommendations to follow based upon clinical course Nurse practitioner note has been reviewed, I agree with documented findings and plan of care. Patient was seen and examined. Objective - Vital Signs Vital signs: Vital Signs Temp 97.7 F 09/15/23 20:00 Pulse 84 09/16/23 08:12 Resp 16 09/16/23 04:00 BP 99/48 09/16/23 04:00 Pulse Ox 98 09/16/23 04:00 FiO2 50 09/16/23 04:14 Intake & Output 09/15/23 09/16/23 09/16/23 18:59 06:59 18:59 Intake Total 40 560 Balance 40 560 Weight 95.7 kg Intake: IV 40 20 Invasive Line 1 20 10 Invasive Line 2 20 10 Oral 540 Other: Voiding Method Bedside Commode Bedside Commode # Voids 1 1 - Labs CBC & Chem 7: 09/15/23 07:54 09/16/23 07:32 Labs: Abnormal Lab Results - Last 24 Hours (Table) 09/15/23 09/15/23 09/15/23 Range/Units 07:54 07:54 11:29 WBC 17.3 H (3.8-10.6) k/uL RBC 2.87 L (3.80-5.40) m/uL Hgb 8.7 L (11.4-16.0) gm/dL Hct 29.4 L (34.0-46.0) % MCV 102.3 H (80.0-100.0) fL MCHC 29.6 L (31.0-37.0) g/dL Neutrophils # 15.9 H (1.3-7.7) k/uL Lymphocytes # 0.5 L (1.0-4.8) k/uL Carbon Dioxide (22-30) mmol/L BUN (7-17) mg/dL Glucose (74-99) mg/dL POC Glucose (mg/dL) 126 H (70-110) mg/dL Hemoglobin A1c 7.3 H (<=6.0) % 09/15/23 09/15/23 09/16/23 Range/Units 16:47 19:55 06:07 WBC (3.8-10.6) k/uL RBC (3.80-5.40) m/uL Hgb (11.4-16.0) gm/dL Hct (34.0-46.0) % MCV (80.0-100.0) fL MCHC (31.0-37.0) g/dL Neutrophils # (1.3-7.7) k/uL Lymphocytes # (1.0-4.8) k/uL Carbon Dioxide (22-30) mmol/L BUN (7-17) mg/dL Glucose (74-99) mg/dL POC Glucose (mg/dL) 187 H 192 H 186 H (70-110) mg/dL Hemoglobin A1c (<=6.0) % 09/16/23 Range/Units 07:32 WBC (3.8-10.6) k/uL RBC (3.80-5.40) m/uL Hgb (11.4-16.0) gm/dL Hct (34.0-46.0) % MCV (80.0-100.0) fL MCHC (31.0-37.0) g/dL Neutrophils # (1.3-7.7) k/uL Lymphocytes # (1.0-4.8) k/uL Carbon Dioxide 39 H (22-30) mmol/L BUN 47 H (7-17) mg/dL Glucose 149 H (74-99) mg/dL POC Glucose (mg/dL) (70-110) mg/dL Hemoglobin A1c (<=6.0) % Microbiology - Last 24 Hours (Table) 09/13/23 14:34 Blood Culture - Preliminary Blood 09/13/23 14:34 Blood Culture - Preliminary Blood
[2023-09-16 11:16] LABS: Glucose,Whole Blood 146 mg/dL (70-110)
[2023-09-16 11:39] LABS: T4, Free (Free Thyroxine) 0.63 ng/dL (0.78-2.19)
--- NOTE | 2023-09-16 13:55 | P.PN ---
Subjective Progress Note Date: 09/16/23 64-year-old female patient presents to the emergency because of difficulty in breathing. Apparently, she has been experiencing worsening shortness of breath over the past few days and she has become hypoxic. No reported fever or chills or night sweats. No hemoptysis or pleurisy. She does have a chronic cough. She has chronic lower extremity edema. The patient is known to me from previous hospital admissions. She has chronic hypoxic maintained on oxygen 5 L/min nasal cannula and the patient has been maintained on prednisone at a dose of 10 mg p.o. daily and DuoNeb updrafts. Her last hospital admission was back in July 2023. At that time, I evaluated and treated this patient. The patient had an acute on top of chronic hypoxic respiratory failure and she required high flow oxygen for a considerable period of time and she gradually improved. During the course of her illness, the patient was treated with a combination of bronchodilators, steroids and diuretics. She is known to have CAD with previous stenting of the RCA and she does have some residual stenosis of the LAD in the order of 40 to 50%. She suffered some severe aortic valve stenosis and she has undergone valvuloplasty, she has hypertension, hyperlipidemia, obesity, chronic back pain, and possibly obstructive sleep apnea. The patient was discharged home on 08/09/2023 as her oxygenation status improved and she was discharged home on 7 L of oxygen by nasal cannula. Currently she is on a BiPAP pressure of 16 over 8 cm of water with an FiO2 of 50%. The blood gas showed a pH of 7.23 with a pCO2 of 84 and a pO2 of 110. BUN is 24 with a creatinine of 0.7. Sodium is at 138 with a potassium level of 2.9. The white cell count is 15.8 with a hemoglobin of 10.1 and a platelet count of 261. Normal coagulation profile. Chest x-ray from this current admission was noted and reviewed and compared to the earlier chest x-rays. There is an obvious improvement in the right lower lobe consolidation as well as noted earlier. She is alert and awake and communicating. She is [facility], IV Solu-Medrol 40 mg every 12 hours. She is also on Lasix 40 mg p.o. twice a day. 09/15/2023, the patient is being seen for a follow-up. Less short of breath compared to yesterday. The patient utilized the BiPAP throughout the night at a pressure of 16 over 5 cm of water. The patient is currently on oxygen 5 L/min nasal cannula with a pulse ox of 98%. No signs of any CO2 narcosis. No chest pain. She has chronic dyspnea with limited exercise capacity due to her advanced COPD. On her chest x-ray, there is no clear indication for an underlying pneumonia. X-ray of the ribs were also done as the patient was having some right sided chest wall pain. This was a limited evaluation due to overlapping of the soft tissue and poor penetration. However, there was no displaced fractures. WBC count at 17 with a hemoglobin 8.7 and a platelet count of 236. Electrolytes show a BUN of 42 with a creatinine of 0.9 and sodium levels of 137 with a potassium level of 5.2. She remains on DuoNeb updrafts. She remains on Augmentin. She remains on Symbicort as maintenance. She is on Lasix 40 mg IV every 12 hours. She is also on IV Solu-Medrol 40 mg every 12 hours. Awake and alert. Denies having any other specific complaints for now. 09/16/2023, the patient is being seen for a follow-up. Doing well. No specific complaints. Utilizing the BiPAP overnight and currently is on 5 L of oxygen by nasal cannula with a pulse ox of 92%. BUN is at 47 with creatinine of 0.9. Sodium levels at 138 and a potassium level of 4.7. Adequate input output has not been done. The patient remains on IV Lasix. Remains on DuoNeb updrafts, oral Augmentin and IV Solu-Medrol 40 mg every 12 hours. No signs of any CO2 narcosis. No altered mentation patient is calm and comfortable. She is having some right-sided chest wall pain. No evidence of fracture based on the x-rays. Objective - Vital Signs Vital signs: Vital Signs Temp 97.9 F 09/16/23 08:03 Pulse 84 09/16/23 08:12 Resp 18 09/16/23 08:03 BP 102/67 09/16/23 10:34 Pulse Ox 98 09/16/23 08:03 FiO2 50 09/16/23 04:14 Intake & Output 09/15/23 09/16/23 09/16/23 18:59 06:59 18:59 Intake Total 40 560 Balance 40 560 Weight 95.7 kg Intake: IV 40 20 Invasive Line 1 20 10 Invasive Line 2 20 10 Oral 540 Other: Voiding Method Bedside Commode Bedside Commode Bedside Commode # Voids 1 1 - Exam No acute distress, oriented 3. Morbidly obese with cushingoid features and the patient is currently on 5 L of O2 nasal cannula Head exam was generally normal. There was no scleral icterus or corneal arcus. Mucous membranes were moist. HEENT examination is grossly unremarkable. Mucous membranes are moist. No oral lesions. Neck supple. Full range of motion. No adenopathy thyromegaly or neck vein distention. Cardiovascular examination reveals regular rhythm rate. S1-S2 normal. No S3 or S4. Harsh systolic ejection murmur over the left apex and left lateral sternal border. Heart sounds are distant. Lungs reveal diminished bilateral breath sounds. Scattered rhonchi and wheezes are noted. No crackles. Breath sounds equal bilaterally Abdominal exam revealed normal bowel sounds. The abdomen was soft, non-tender, and without masses, organomegaly, or appreciable enlargement of the abdominal aorta. Extremities are intact. No cyanosis clubbing or edema. Skin is without rash or lesion. Shingles with right lesions in the right upper extremity. No open vesicles at this point in time. Neurologically, the patient is awake and alert and the patient does not have any focal neurological deficit. Cranial nerves are essentially intact. - Labs CBC & Chem 7: 09/15/23 07:54 09/16/23 07:32 Labs: Abnormal Lab Results - Last 24 Hours (Table) 09/15/23 09/15/23 09/15/23 Range/Units 07:54 11:29 16:47 Carbon Dioxide (22-30) mmol/L BUN (7-17) mg/dL Glucose (74-99) mg/dL POC Glucose (mg/dL) 126 H 187 H (70-110) mg/dL Hemoglobin A1c 7.3 H (<=6.0) % 09/15/23 09/16/23 09/16/23 Range/Units 19:55 06:07 07:32 Carbon Dioxide 39 H (22-30) mmol/L BUN 47 H (7-17) mg/dL Glucose 149 H (74-99) mg/dL POC Glucose (mg/dL) 192 H 186 H (70-110) mg/dL Hemoglobin A1c (<=6.0) % Microbiology - Last 24 Hours (Table) 09/13/23 14:34 Blood Culture - Preliminary Blood 09/13/23 14:34 Blood Culture - Preliminary Blood Assessment and Plan Plan: Acute on chronic hypoxic respiratory failure. Patient was discharged from the hospital on 08/09/2023 after being treated for CHF/COPD exacerbation and suspected right lower lobe pneumonia. She is coming in for another hospitalization and the blood gas clearly shows an acute on top of chronic hypercapnic respiratory failure currently on of the BiPAP. The patient is still using the BiPAP overnight and she was transition to 5 L of oxygen by nasal cannula. This is her baseline oxygen requirements. She has chronic shortness of breath and chronic hypoxic respiratory failure. Acute decompensation seems to have improved for now. Advanced COPD, oxygen dependent at 5 L/min nasal cannula is steroid-dependent at 10 mg of prednisone daily basis, the patient is currently on a combination of Spiriva and Symbicort on outpatient basis. Ex-smoker. Coronary artery disease, involving the LAD, with 40 to 50% stenosis, and a patent proximal RCA stent. Severe aortic stenosis with a valve surface area of 0.6 cm, previous aortic valve valvuloplasty Shingles history, recovered History of hyperlipidemia. History of hypertension. History of chronic low back pain. Obesity. Prior history of heavy tobacco use. Plan: Continue BiPAP for now at the same settings, and this will be essentially denied overnight. No signs of any CO2 narcosis Monitor hemoglobin Continue bronchodilators with DuoNeb updrafts Continue Symbicort Continue IV Solu-Medrol, 40 mg IV every 12 hours. Continue Augmentin Continue diuretics and the patient will be taken off the IV Lasix and switch to Lasix 40 mg p.o. twice a day. chest x-ray stable and there is no consolidation or airspace disease Keep the patient on KVO IV fluids Incentive spirometer Increase mobility will work on getting this patient in outpatient noninvasive positive pressure ventilator
[2023-09-16] MEDS: HYDROcodone/APAP 5-325MG 1 EACH TAB PO PRN (14:43)
[2023-09-16] MEDS: FUROSEMIDE 40 MG TAB PO SCH (15:35)
[2023-09-16 16:14] LABS: Glucose,Whole Blood 451 mg/dL (70-110)
--- NOTE | 2023-09-16 16:32 | CA ---
Transthoracic Echo Report Name: Blanka Porras Age: 63 Gender: F : 1960 Exam Date: 09/16/2023 11:17 Exam Location: [facility] Ht (in): 67 Wt (lb): 210 Ordering Physician: Asiya Padilla Attending/Referring Phys: [id number], Randy Eating Disorder Specialist Viktoria Reyes RDCS Procedure CPT: Indications: AV Cardiac Hx: Technical Quality: Very technically difficult study Contrast 1: Total Dose (mL): Contrast 2: Total Dose (mL): MEASUREMENTS (Male / Female) Normal Values 2D ECHO Ascending Aorta Diameter 4.7 cm DOPPLER AV Peak Velocity 513.4 cm/s AV Peak Gradient 105.5 mmHg AV Mean Velocity 371.4 cm/s AV Mean Gradient 61.4 mmHg AV Velocity Time Integral 121.8 cm LVOT Peak Velocity 79.3 cm/s LVOT Peak Gradient 2.5 mmHg LVOT Velocity Time Integral 19.4 cm FINDINGS Left Ventricle Left ventricle not well visualized. Right Ventricle Right ventricle not well visualized. Right Atrium Left Atrium Mitral Valve Aortic Valve Status post valuloplasty 07/2023. [id number] aortic regurgitation. Severe aortic stenosis with a mean gradient of 69mmHg post valvuloplasty. Tricuspid Valve Pulmonic Valve Pericardium Aorta CONCLUSIONS Limited 2-D echo Left ventricular ejection fraction 25-30% Mild to moderate aortic regurgitation Severe aortic stenosis with mean gradient 69 mmHg Previewed by: Dr. Antoni Hinkle DO (Electronically Signed) Final Date: 16 Sep 2023 16:31
--- NOTE | 2023-09-16 16:58 | P.PN ---
Subjective Progress Note Date: 09/16/23 63-year-old female came in with complaints of shortness of breath. Patient is found to be in hypercapnic and hypoxic respiratory failure with ABG showing pH of 7.23 pCO2 of 84 bicarbonate of 35. Patient usually uses 5 L of oxygen does have sleep apnea with CPAP machine is morbidly obese. Patient does have history of COPD and history of smoking in the past as well. Patient is also found to be in SVT which resolved at this time patient is presently sinus tachycardia. Patient does not smoke anymore. Patient had any fever chills chest x-ray did not show any pneumonia patient is not in heart failure but takes 40 mg of Lasix for possibly peripheral edema twice a day with very low potassium of 2.9 patient appears to have severe aortic stenosis, may be diastolic dysfunction. Patient was started on Augmentin patient may have bronchitis but no evidence of pneumonia at this time will obtain a procalcitonin level. 09/16/2023 --the patient is being seen for a follow-up. Doing well. No specific complaints. Utilizing the BiPAP overnight and currently is on 5 L of oxygen by nasal cannula with a pulse ox of 92%. BUN is at 47 with creatinine of 0.9. Sodium levels at 138 and a potassium level of 4.7. Adequate input output has not been done. The patient remains on IV Lasix. Remains on DuoNeb updrafts, oral Augmentin and IV Solu-Medrol 40 mg every 12 hours. No signs of any CO2 narcosis. No altered mentation patient is calm and comfortable. She is having some right-sided chest wall pain. No evidence of fracture based on the x-rays. Patient is recommended to continue with BiPAP at the same settings; remains on bronchodilator nebulizer treatments and IV Solu-Medrol already milligrams every 12 hours --Patient has been taken off of IV Lasix and is switched to Lasix 40 mg p.o. twice daily -- Repeat chest x-ray remains stable Objective - Vital Signs Vital signs: Vital Signs Temp 97.9 F 09/16/23 08:03 Pulse 84 09/16/23 08:12 Resp 18 09/16/23 08:03 BP 102/67 09/16/23 10:34 Pulse Ox 98 09/16/23 08:03 FiO2 50 09/16/23 04:14 Intake & Output 09/15/23 09/16/23 09/16/23 18:59 06:59 18:59 Intake Total 40 560 Balance 40 560 Weight 95.7 kg Intake: IV 40 20 Invasive Line 1 20 10 Invasive Line 2 20 10 Oral 540 Other: Voiding Method Bedside Commode Bedside Commode Bedside Commode # Voids 1 1 - Exam GENERAL: The patient is alert and oriented x3, not in any acute distress. Well developed, well nourished. HEENT: Pupils are round and equally reacting to light. EOMI. No scleral icterus. No conjunctival pallor. Normocephalic, atraumatic. No pharyngeal erythema. No thyromegaly. CARDIOVASCULAR: S1 and S2 present. No murmurs, rubs, or gallops. PULMONARY: Chest is clear to auscultation, no wheezing or crackles. ABDOMEN: Soft, nontender, nondistended, normoactive bowel sounds. No palpable organomegaly. MUSCULOSKELETAL: No joint swelling or deformity. EXTREMITIES: No cyanosis, clubbing, or pedal edema. NEUROLOGICAL: Gross neurological examination did not reveal any focal deficits. SKIN: No rashes. - Labs CBC & Chem 7: 09/15/23 07:54 09/16/23 07:32 Labs: Abnormal Lab Results - Last 24 Hours (Table) 09/15/23 09/15/23 09/15/23 Range/Units 11:29 16:47 19:55 Carbon Dioxide (22-30) mmol/L BUN (7-17) mg/dL Glucose (74-99) mg/dL POC Glucose (mg/dL) 126 H 187 H 192 H (70-110) mg/dL TSH (0.465-4.680) mIU/L 09/16/23 09/16/23 09/16/23 Range/Units 06:07 07:32 07:32 Carbon Dioxide 39 H (22-30) mmol/L BUN 47 H (7-17) mg/dL Glucose 149 H (74-99) mg/dL POC Glucose (mg/dL) 186 H (70-110) mg/dL TSH 0.294 L (0.465-4.680) mIU/L Microbiology - Last 24 Hours (Table) 09/13/23 14:34 Blood Culture - Preliminary Blood 09/13/23 14:34 Blood Culture - Preliminary Blood Assessment and Plan Assessment: -Acute hypoxic and hypercapnic respiratory failure secondary to obesity hypoventilation syndrome sleep apnea and COPD exacerbation patient was started on 40 mg IV steroids twice a day continue with Augmentin and breathing treatments. Pulmonary will be consulted. Patient is presently requiring BiPAP -Respiratory acidosis with partial compensation: Patient is in COPD exacerbation continue with BiPAP repeat ABGs -Severe arctic stenosis -SVT on admission presently sinus tachycardia: Patient was started back on metoprolol. SVT secondary to hypoxemia -Possibly chronic diastolic function patient is not in acute exacerbation but patient will be resumed on oral Lasix -Hypokalemia secondary to Lasix will replace potassium -Coronary disease with myocardial infarction in the past -Obesity appellation syndrome sleep apnea -Depression DVT prophylaxis: Subcutaneous heparin not Lovenox
[2023-09-16 20:44] LABS: Glucose,Whole Blood 128 mg/dL (70-110)
[2023-09-17 06:17] LABS: Glucose,Whole Blood 182 mg/dL (70-110)
[2023-09-17 11:01] LABS: African American GFR (CKD) 77 (>60 ml/min/1.73 sqM); Blood Urea Nitrogen 43 mg/dL (7-17); Calcium 8.7 mg/dL (8.4-10.2); Chloride 93 mmol/L (98-107); Glucose 198 mg/dL (74-99); Magnesium 2.3 mg/dL (1.6-2.3); Non-African American GFR(CKD) 67 (>60 ml/min/1.73 sqM); Potassium 4.5 mmol/L (3.5-5.1); Sodium 137 mmol/L (137-145)
[2023-09-17 11:07] LABS: Anion Gap 3 mmol/L
[2023-09-17 11:15] LABS: Carbon Dioxide 41 mmol/L (22-30)
[2023-09-17 11:21] LABS: Glucose,Whole Blood 250 mg/dL (70-110)
--- NOTE | 2023-09-17 14:06 | P.PN ---
Subjective Progress Note Date: 09/17/23 Reason for Consult (text): SVT History of present illness: This is a 63-year-old female of Dr. Hinkle with past medical history of coronary artery disease with previous stent of the RCA, COPD on home oxygen, obstructive sleep apnea on CPAP, bicuspid aortic valve with severe stenosis status post balloon aortic valvuloplasty on 07/29/2023, hypertension, hyperlipidemia, and former nicotine dependence. We have been asked to evaluate the patient for SVT. Patient presented to the hospital due to shortness of breath and worsening pulmonary function. Patient presented with heart rate of 210, respiratory rate 26, pulse ox was 90% on 6 L nasal cannula. Patient states her breathing is improved since she arrived. She is complaining of pain on the right thoracic rib area. She states she took Tylenol yesterday that did not help. Regarding aortic stenosis, patient is status post aortic valvuloplasty and is to be worked up for TAVR but due to difficulty getting to appointments and ongoing problems with her respiratory status, this has been delayed. EKG #1 SVT 194 bpm, #2 sinus tachycardia 124 bpm Chest x-ray: No acute process Laboratory studies: WBC 17.3, hemoglobin 8.7. BUN 42 creatinine 0.98, potassium 5.2 (previously 2.9). Procalcitonin 0.15. Troponin negative x 1. proBNP 322. Home cardiac medications: Aspirin 81 mg daily, atorvastatin 40 mg at bedtime, Farxiga 5 mg daily, Lasix 40 mg twice daily, lisinopril 30 mg daily, Toprol-XL 25 mg 3 times daily, Nitrostat as needed, potassium 20 mill equivalents twice daily. 07/29/2023: Balloon aortic valvuloplasty with Dr. Hinkle Echocardiogram performed on 07/28/2023 reveals aortic valve gradient 75 mm to 38 mm. Mild to moderate mitral regurgitation. Cardiac catheterization performed 07/24/2023 reveals mid LAD 40 to 50% stenosis and patent proximal RCA stent. 09/15 Patient has been in a sinus rhythm in the 60s to 80s, blood pressure 99/48, pulse ox 98% on BiPAP. Repeat blood work reveals potassium 4.7, BUN 47 creatinine 0.91. Rib x-rays were ordered yesterday as patient was complaining of posterior thoracic pain with significant coughing. X-ray revealed no displaced rib fracture visualized. Yesterday, we started patient on amiodarone 200 mg twice daily. Patient states she still feels short of breath but a little better. + cough. 09/16 Patient is seen in follow-up. She is continue treatment for COPD exacerbation. Blood pressure 99/51, heart rate in the 60s to 80s, pulse ox 100% on 5 L nasal cannula. Repeat TSH was low at 0.294 with free T40.63. Patient states her br eathing is improved today. Dr Hinkle discussed options for AV and that will be placed on hold util lungs are improved. Limited echocardiogram to evaluate aortic valve revealed EF of 25 to 30%, mild to moderate aortic regurgitation. Severe aortic stenosis with mean gradient of 69 mmHg status post valvuloplasty. Physical examination: Gen: This is a 63-year-old female. VS: reviewed HEENT: Head is atraumatic, normocephalic. Pupils equal, round. Sclerae is anicteric. NECK: Supple. No JVD. LUNGS: Diminished breath sounds, rhonchi and wheezing. No intercostal retractions. HEART: Regular rate and rhythm. Systolic ejection murmur. ABDOMEN: Soft No tenderness. EXTREMITIES: No pedal edema. No calf tenderness. NEUROLOGICAL: Patient is awake, alert and oriented x3. Assessment: Acute hypoxic and hypercapnic respiratory failure secondary to obesity hypoventilation syndrome, COPD exacerbation Respiratory acidosis Paroxysmal SVT, now in a sinus rhythm Critical aortic stenosis status post balloon aortic valvuloplasty on 07/29/2023. OP TAVR workup delayed due to frequent hospitalizations and poor respiratory status. Right rib pain, rib fractures ruled out by x-ray Coronary artery disease with previous PCI Hypertension Hyperlipidemia Former tobacco use Plan: Continue patient's home cardiac medications Continue telemetry monitoring Abnormal TSH/FT4- medicine to address Increase Toprol-XL to 50 mg twice daily starting tonight and discontinue amiodarone Further recommendations to follow based upon clinical course Nurse practitioner note has been reviewed, I agree with documented findings and plan of care. Patient was seen and examined. Objective - Vital Signs Vital signs: Vital Signs Temp 97.7 F 09/16/23 20:00 Pulse 80 09/17/23 08:26 Resp 18 09/17/23 04:00 BP 99/51 09/17/23 04:00 Pulse Ox 100 09/17/23 08:14 FiO2 50 09/16/23 04:14 Intake & Output 09/16/23 09/17/23 09/17/23 18:59 06:59 18:59 Intake Total 0 1080 0 Output Total 0 Balance 0 1080 0 Intake: Oral 0 1080 0 Output: Urine 0 Other: Voiding Method Bedside Commode Bedside Commode # Voids 1 - Labs CBC & Chem 7: 09/15/23 07:54 09/17/23 10:33 Labs: Abnormal Lab Results - Last 24 Hours (Table) 09/16/23 09/16/23 09/16/23 Range/Units 07:32 11:15 16:13 POC Glucose (mg/dL) 146 H 451 H (70-110) mg/dL TSH 0.294 L (0.465-4.680) mIU/L Free T4 0.63 L (0.78-2.19) ng/dL 09/16/23 09/17/23 Range/Units 20:40 06:16 POC Glucose (mg/dL) 128 H 182 H (70-110) mg/dL TSH (0.465-4.680) mIU/L Free T4 (0.78-2.19) ng/dL Microbiology - Last 24 Hours (Table) 09/13/23 14:34 Blood Culture - Preliminary Blood 09/13/23 14:34 Blood Culture - Preliminary Blood
--- NOTE | 2023-09-17 14:24 | P.PN ---
Subjective Progress Note Date: 09/17/23 64-year-old female patient presents to the emergency because of difficulty in breathing. Apparently, she has been experiencing worsening shortness of breath over the past few days and she has become hypoxic. No reported fever or chills or night sweats. No hemoptysis or pleurisy. She does have a chronic cough. She has chronic lower extremity edema. The patient is known to me from previous hospital admissions. She has chronic hypoxic maintained on oxygen 5 L/min nasal cannula and the patient has been maintained on prednisone at a dose of 10 mg p.o. daily and DuoNeb updrafts. Her last hospital admission was back in July 2023. At that time, I evaluated and treated this patient. The patient had an acute on top of chronic hypoxic respiratory failure and she required high flow oxygen for a considerable period of time and she gradually improved. During the course of her illness, the patient was treated with a combination of bronchodilators, steroids and diuretics. She is known to have CAD with previous stenting of the RCA and she does have some residual stenosis of the LAD in the order of 40 to 50%. She suffered some severe aortic valve stenosis and she has undergone valvuloplasty, she has hypertension, hyperlipidemia, obesity, chronic back pain, and possibly obstructive sleep apnea. The patient was discharged home on 08/09/2023 as her oxygenation status improved and she was discharged home on 7 L of oxygen by nasal cannula. Currently she is on a BiPAP pressure of 16 over 8 cm of water with an FiO2 of 50%. The blood gas showed a pH of 7.23 with a pCO2 of 84 and a pO2 of 110. BUN is 24 with a creatinine of 0.7. Sodium is at 138 with a potassium level of 2.9. The white cell count is 15.8 with a hemoglobin of 10.1 and a platelet count of 261. Normal coagulation profile. Chest x-ray from this current admission was noted and reviewed and compared to the earlier chest x-rays. There is an obvious improvement in the right lower lobe consolidation as well as noted earlier. She is alert and awake and communicating. [facility] Solu-Medrol 40 mg every 12 hours. She is also on Lasix 40 mg p.o. twice a day. 09/15/2023, the patient is being seen for a follow-up. Less short of breath compared to yesterday. The patient utilized the BiPAP throughout the night at a pressure of 16 over 5 cm of water. The patient is currently on oxygen 5 L/min nasal cannula with a pulse ox of 98%. No signs of any CO2 narcosis. No chest pain. She has chronic dyspnea with limited exercise capacity due to her advanced COPD. On her chest x-ray, there is no clear indication for an underlying pneumonia. X-ray of the ribs were also done as the patient was having some right sided chest wall pain. This was a limited evaluation due to overlapping of the soft tissue and poor penetration. However, there was no displaced fractures. WBC count at 17 with a hemoglobin 8.7 and a platelet count of 236. Electrolytes show a BUN of 42 with a creatinine of 0.9 and sodium levels of 137 with a potassium level of 5.2. She remains on DuoNeb updrafts. She remains on Augmentin. She remains on Symbicort as maintenance. She is on Lasix 40 mg IV every 12 hours. She is also on IV Solu-Medrol 40 mg every 12 hours. Awake and alert. Denies having any other specific complaints for now. 09/16/2023, the patient is being seen for a follow-up. Doing well. No specific complaints. Utilizing the BiPAP overnight and currently is on 5 L of oxygen by nasal cannula with a pulse ox of 92%. BUN is at 47 with creatinine of 0.9. Sodium levels at 138 and a potassium level of 4.7. Adequate input output has not been done. The patient remains on IV Lasix. Remains on DuoNeb updrafts, oral Augmentin and IV Solu-Medrol 40 mg every 12 hours. No signs of any CO2 narcosis. No altered mentation patient is calm and comfortable. She is having some right-sided chest wall pain. No evidence of fracture based on the x-rays. 09/17/2023, the patient is being seen for a follow-up. Patient is doing well. No specific complaints. Awake and alert. No signs of any CO2 narcosis. Wearing the BiPAP overnight. Currently on 5 L of oxygen by nasal cannula with a pulse ox of 99%. BUN is at 43 with a creatinine of 0.9. Potassium is at 4.5. Serum bicarb is 41 with a sodium level of 137. Objective - Vital Signs Vital signs: Vital Signs Temp 97.7 F 09/16/23 20:00 Pulse 80 09/17/23 11:24 Resp 18 09/17/23 07:20 BP 122/73 09/17/23 07:20 Pulse Ox 100 09/17/23 08:14 FiO2 50 09/16/23 04:14 Intake & Output 09/16/23 09/17/23 09/17/23 18:59 06:59 18:59 Intake Total 0 1080 10 Output Total 0 Balance 0 1080 10 Intake: IV 10 Invasive Line 2 10 Oral 0 1080 0 Output: Urine 0 Other: Voiding Method Bedside Commode Bedside Commode Bedside Commode # Voids 1 - Exam No acute distress, oriented 3. Morbidly obese with cushingoid features and the patient is currently on 5 L of O2 nasal cannula Head exam was generally normal. There was no scleral icterus or corneal arcus. Mucous membranes were moist. HEENT examination is grossly unremarkable. Mucous membranes are moist. No oral lesions. Neck supple. Full range of motion. No adenopathy thyromegaly or neck vein distention. Cardiovascular examination reveals regular rhythm rate. S1-S2 normal. No S3 or S4. Harsh systolic ejection murmur over the left apex and left lateral sternal border. Heart sounds are distant. Lungs reveal diminished bilateral breath sounds. Scattered rhonchi and wheezes are noted. No crackles. Breath sounds equal bilaterally Abdominal exam revealed normal bowel sounds. The abdomen was soft, non-tender, and without masses, organomegaly, or appreciable enlargement of the abdominal aorta. Extremities are intact. No cyanosis clubbing or edema. Skin is without rash or lesion. Shingles with right lesions in the right upper extremity. No open vesicles at this point in time. Neurologically, the patient is awake and alert and the patient does not have any focal neurological deficit. Cranial nerves are essentially intact. - Labs CBC & Chem 7: 09/15/23 07:54 09/17/23 10:33 Labs: Abnormal Lab Results - Last 24 Hours (Table) 09/16/23 09/16/23 09/16/23 Range/Units 07:32 16:13 20:40 Chloride (98-107) mmol/L Carbon Dioxide (22-30) mmol/L BUN (7-17) mg/dL Glucose (74-99) mg/dL POC Glucose (mg/dL) 451 H 128 H (70-110) mg/dL Free T4 0.63 L (0.78-2.19) ng/dL 09/17/23 09/17/23 09/17/23 Range/Units 06:16 10:33 11:20 Chloride 93 L (98-107) mmol/L Carbon Dioxide 41 H* (22-30) mmol/L BUN 43 H (7-17) mg/dL Glucose 198 H (74-99) mg/dL POC Glucose (mg/dL) 182 H 250 H (70-110) mg/dL Free T4 (0.78-2.19) ng/dL Microbiology - Last 24 Hours (Table) 09/13/23 14:34 Blood Culture - Preliminary Blood 09/13/23 14:34 Blood Culture - Preliminary Blood Assessment and Plan Plan: Acute on chronic hypoxic respiratory failure. Patient was discharged from the hospital on 08/09/2023 after being treated for CHF/COPD exacerbation and suspected right lower lobe pneumonia. She is coming in for another hospitalization and the blood gas clearly shows an acute on top of chronic hypercapnic respiratory failure currently on of the BiPAP. The patient is still using the BiPAP overnight and she was transition to 5 L of oxygen by nasal c annula. This is her baseline oxygen requirements. She has chronic shortness of breath and chronic hypoxic respiratory failure. Acute decompensation seems to have improved for now. Advanced COPD, oxygen dependent at 5 L/min nasal cannula is steroid-dependent at 10 mg of prednisone daily basis, the patient is currently on a combination of Spiriva and Symbicort on outpatient basis. Ex-smoker. Coronary artery disease, involving the LAD, with 40 to 50% stenosis, and a patent proximal RCA stent. Severe aortic stenosis with a valve surface area of 0.6 cm, previous aortic valve valvuloplasty Shingles history, recovered History of hyperlipidemia. History of hypertension. History of chronic low back pain. Obesity. Prior history of heavy tobacco use. Plan: Continue same treatment for now. Clinically stable. Continue BiPAP for now at the same settings, and this will be essentially denied overnight. No signs of any CO2 narcosis Monitor hemoglobin Continue bronchodilators with DuoNeb updrafts Continue Symbicort Continue oral prednisone Continue oral Lasix 40 mg p.o. twice a day. Continue Augmentin chest x-ray stable and there is no consolidation or airspace disease KVO IV fluids Incentive spirometer Increase mobility will work on getting this patient in outpatient noninvasive positive pressure ventilator
[2023-09-17 16:12] LABS: Glucose,Whole Blood 288 mg/dL (70-110)
[2023-09-17] MEDS: METOPROLOL SUCCINATE (ER) 50 MG TAB.ER.24H PO SCH (20:05)
[2023-09-17 20:09] LABS: Glucose,Whole Blood 154 mg/dL (70-110)
[2023-09-18 06:05] LABS: Glucose,Whole Blood 138 mg/dL (70-110)
[2023-09-18] MEDS: predniSONE 20 MG TAB PO SCH (08:24)
[2023-09-18 11:29] LABS: Glucose,Whole Blood 157 mg/dL (70-110)
--- NOTE | 2023-09-18 13:02 | P.PN ---
Subjective Progress Note Date: 09/18/23 Reason for Consult (text): SVT History of present illness: This is a 63-year-old female of Dr. Hinkle with past medical history of coronary artery disease with previous stent of the RCA, COPD on home oxygen, obstructive sleep apnea on CPAP, bicuspid aortic valve with severe stenosis status post balloon aortic valvuloplasty on 07/29/2023, hypertension, hyperlipidemia, and former nicotine dependence. We have been asked to evaluate the patient for SVT. Patient presented to the hospital due to shortness of breath and worsening pulmonary function. Patient presented with heart rate of 210, respiratory rate 26, pulse ox was 90% on 6 L nasal cannula. Patient states her breathing is improved since she arrived. She is complaining of pain on the right thoracic rib area. She states she took Tylenol yesterday that did not help. Regarding aortic stenosis, patient is status post aortic valvuloplasty and is to be worked up for TAVR but due to difficulty getting to appointments and ongoing problems with her respiratory status, this has been delayed. EKG #1 SVT 194 bpm, #2 sinus tachycardia 124 bpm Chest x-ray: No acute process Laboratory studies: WBC 17.3, hemoglobin 8.7. BUN 42 creatinine 0.98, potassium 5.2 (previously 2.9). Procalcitonin 0.15. Troponin negative x 1. proBNP 322. Home cardiac medications: Aspirin 81 mg daily, atorvastatin 40 mg at bedtime, Farxiga 5 mg daily, Lasix 40 mg twice daily, lisinopril 30 mg daily, Toprol-XL 25 mg 3 times daily, Nitrostat as needed, potassium 20 mill equivalents twice daily. 07/29/2023: Balloon aortic valvuloplasty with Dr. Hinkle Echocardiogram performed on 07/28/2023 reveals aortic valve gradient 75 mm to 38 mm. Mild to moderate mitral regurgitation. Cardiac catheterization performed 07/24/2023 reveals mid LAD 40 to 50% stenosis and patent proximal RCA stent. 09/15 Patient has been in a sinus rhythm in the 60s to 80s, blood pressure 99/48, pulse ox 98% on BiPAP. Repeat blood work reveals potassium 4.7, BUN 47 creatinine 0.91. Rib x-rays were ordered yesterday as patient was complaining of posterior thoracic pain with significant coughing. X-ray revealed no displaced rib fracture visualized. Yesterday, we started patient on amiodarone 200 mg twice daily. Patient states she still feels short of breath but a little better. + cough. 09/16 Patient is seen in follow-up. She is continue treatment for COPD exacerbation. Blood pressure 99/51, heart rate in the 60s to 80s, pulse ox 100% on 5 L nasal cannula. Repeat TSH was low at 0.294 with free T40.63. Patient states her br eathing is improved today. Dr Hinkle discussed options for AV and that will be placed on hold util lungs are improved. Limited echocardiogram to evaluate aortic valve revealed EF of 25 to 30%, mild to moderate aortic regurgitation. Severe aortic stenosis with mean gradient of 69 mmHg status post valvuloplasty. 09/17 Patient is seen today in follow-up. She is normally on 5 L nasal cannula at [facility] and pulse ox is 99% on 5 L here. Heart rate is running in 60s and 70s, blood pressure 95/49. Patient feels that her breathing is close to her baseline. Echocardiogram results were reviewed with the patient and at bedside. Breathing status seems to be stable and mostly secondary to lungs versus aortic valve. Physical examination: Gen: This is a 63-year-old female. VS: reviewed HEENT: Head is atraumatic, normocephalic. Pupils equal, round. Sclerae is anicteric. NECK: Supple. No JVD. LUNGS: Diminished breath sounds, rhonchi and wheezing. No intercostal retractions. HEART: Regular rate and rhythm. Systolic ejection murmur. ABDOMEN: Soft No tenderness. EXTREMITIES: No pedal edema. No calf tenderness. NEUROLOGICAL: Patient is awake, alert and oriented x3. Assessment: Acute hypoxic and hypercapnic respiratory failure secondary to obesity hypoventilation syndrome, COPD exacerbation Respiratory acidosis Paroxysmal SVT, now in a sinus rhythm Critical aortic stenosis status post balloon aortic valvuloplasty on 07/29/2023. OP TAVR workup delayed due to frequent hospitalizations and poor respiratory status. Right rib pain, rib fractures ruled out by x-ray Coronary artery disease with previous PCI Hypertension Hyperlipidemia Former tobacco use Plan: Continue patient's home cardiac medications Continue telemetry monitoring Abnormal TSH/FT4- medicine to address Continue Toprol-XL 50 mg twice daily Cardiology will sign off this case and follow on an as-needed basis. Please reconsult for any new concerns. Patient may follow-up in the office in one to [address] Hinkle. Nurse practitioner note has been reviewed, I agree with documented findings and plan of care. Patient was seen and examined. Objective - Vital Signs Vital signs: Vital Signs Temp 98.0 F 09/18/23 08:15 Pulse 67 09/18/23 08:46 Resp 18 09/18/23 08:15 BP 95/49 09/18/23 08:15 Pulse Ox 91 L 09/18/23 08:46 FiO2 50 09/16/23 04:14 Intake & Output 09/17/23 09/18/23 09/18/23 18:59 06:59 18:59 Intake Total 10 10 Balance 10 10 Weight 91.8 kg Intake: IV 10 10 Invasive Line 2 10 10 Oral 0 0 Other: Voiding Method Bedside Commode Bedside Commode # Voids 2 - Labs CBC & Chem 7: 09/15/23 07:54 09/17/23 10:33 Labs: Abnormal Lab Results - Last 24 Hours (Table) 09/17/23 09/17/23 09/17/23 Range/Units 10:33 11:20 16:09 Chloride 93 L (98-107) mmol/L Carbon Dioxide 41 H* (22-30) mmol/L BUN 43 H (7-17) mg/dL Glucose 198 H (74-99) mg/dL POC Glucose (mg/dL) 250 H 288 H (70-110) mg/dL 09/17/23 09/18/23 Range/Units 20:07 06:04 Chloride (98-107) mmol/L Carbon Dioxide (22-30) mmol/L BUN (7-17) mg/dL Glucose (74-99) mg/dL POC Glucose (mg/dL) 154 H 138 H (70-110) mg/dL
--- NOTE | 2023-09-18 14:36 | P.PN ---
Subjective Progress Note Date: 09/18/23 64-year-old female patient presents to the emergency because of difficulty in breathing. Apparently, she has been experiencing worsening shortness of breath over the past few days and she has become hypoxic. No reported fever or chills or night sweats. No hemoptysis or pleurisy. She does have a chronic cough. She has chronic lower extremity edema. The patient is known to me from previous hospital admissions. She has chronic hypoxic maintained on oxygen 5 L/min nasal cannula and the patient has been maintained on prednisone at a dose of 10 mg p.o. daily and DuoNeb updrafts. Her last hospital admission was back in July 2023. At that time, I evaluated and treated this patient. The patient had an acute on top of chronic hypoxic respiratory failure and she required high flow oxygen for a considerable period of time and she gradually improved. During the course of her illness, the patient was treated with a combination of bronchodilators, steroids and diuretics. She is known to have CAD with previous stenting of the RCA and she does have some residual stenosis of the LAD in the order of 40 to 50%. She suffered some severe aortic valve stenosis and she has undergone valvuloplasty, she has hypertension, hyperlipidemia, obesity, chronic back pain, and possibly obstructive sleep apnea. The patient was discharged home on 08/09/2023 as her oxygenation status improved and she was discharged home on 7 L of oxygen by nasal cannula. Currently she is on a BiPAP pressure of 16 over 8 cm of water with an FiO2 of 50%. The blood gas showed a pH of 7.23 with a pCO2 of 84 and a pO2 of 110. BUN is 24 with a creatinine of 0.7. Sodium is at 138 with a potassium level of 2.9. The white cell count is 15.8 with a hemoglobin of 10.1 and a platelet count of 261. Normal coagulation profile. Chest x-ray from this current admission was noted and reviewed and compared to the earlier chest x-rays. There is an obvious improvement in the right lower lobe consolidation as well as noted earlier. She is alert and awake and communicating. She is currently on [facility]eb [facility], IV Solu-Medrol 40 mg every 12 hours. She is also on Lasix 40 mg p.o. twice a day. 09/15/2023, the patient is being seen for a follow-up. Less short of breath compared to yesterday. The patient utilized the BiPAP throughout the night at a pressure of 16 over 5 cm of water. The patient is currently on oxygen 5 L/min nasal cannula with a pulse ox of 98%. No signs of any CO2 narcosis. No chest pain. She has chronic dyspnea with limited exercise capacity due to her advanced COPD. On her chest x-ray, there is no clear indication for an underlying pneumonia. X-ray of the ribs were also done as the patient was having some right sided chest wall pain. This was a limited evaluation due to overlapping of the soft tissue and poor penetration. However, there was no displaced fractures. WBC count at 17 with a hemoglobin 8.7 and a platelet count of 236. Electrolytes show a BUN of 42 with a creatinine of 0.9 and sodium levels of 137 with a potassium level of 5.2. She remains on DuoNeb updrafts. She remains on Augmentin. She remains on Symbicort as maintenance. She is on Lasix 40 mg IV every 12 hours. She is also on IV Solu-Medrol 40 mg every 12 hours. Awake and alert. Denies having any other specific complaints for now. 09/16/2023, the patient is being seen for a follow-up. Doing well. No specific complaints. Utilizing the BiPAP overnight and currently is on 5 L of oxygen by nasal cannula with a pulse ox of 92%. BUN is at 47 with creatinine of 0.9. Sodium levels at 138 and a potassium level of 4.7. Adequate input output has not been done. The patient remains on IV Lasix. Remains on DuoNeb updrafts, oral Augmentin and IV Solu-Medrol 40 mg every 12 hours. No signs of any CO2 narcosis. No altered mentation patient is calm and comfortable. She is having some right-sided chest wall pain. No evidence of fracture based on the x-rays. 09/17/2023, the patient is being seen for a follow-up. Patient is doing well. No specific complaints. Awake and alert. No signs of any CO2 narcosis. Wearing the BiPAP overnight. Currently on 5 L of oxygen by nasal cannula with a pulse ox of 99%. BUN is at 43 with a creatinine of 0.9. Potassium is at 4.5. Serum bicarb is 41 with a sodium level of 137. On today's evaluation of 09/18/2023, patient is stable without any complaints. The patient remains on 5 L oxygen by nasal cannula. No signs of any CO2 narcosis. No signs of any respiratory distress or chest pain. Currently on bronchodilators. Currently on prednisone as part of the burst taper. Maintained on Symbicort. Lisinopril and Lasix. Heparin subcu for DVT pr ophylaxis. Awake and alert and resting comfortably in bed. Utilizing a BiPAP overnight. Objective - Vital Signs Vital signs: Vital Signs Temp 98.0 F 09/18/23 08:15 Pulse 64 09/18/23 11:41 Resp 20 09/18/23 11:32 BP 112/57 09/18/23 11:32 Pulse Ox 98 09/18/23 11:32 FiO2 50 09/16/23 04:14 Intake & Output 09/17/23 09/18/23 09/18/23 18:59 06:59 18:59 Intake Total 10 10 Balance 10 10 Weight 91.8 kg Intake: IV 10 10 Invasive Line 2 10 10 Oral 0 0 Other: Voiding Method Bedside Commode Bedside Commode Bedside Commode # Voids 2 - Exam No acute distress, oriented 3. Morbidly obese with cushingoid features and the patient is currently on 5 L of O2 nasal cannula Head exam was generally normal. There was no scleral icterus or corneal arcus. Mucous membranes were moist. HEENT examination is grossly unremarkable. Mucous membranes are moist. No oral lesions. Neck supple. Full range of motion. No adenopathy thyromegaly or neck vein distention. Cardiovascular examination reveals regular rhythm rate. S1-S2 normal. No S3 or S4. Harsh systolic ejection murmur over the left apex and left lateral sternal border. Heart sounds are distant. Lungs reveal diminished bilateral breath sounds. Scattered rhonchi and wheezes are noted. No crackles. Breath sounds equal bilaterally Abdominal exam revealed normal bowel sounds. The abdomen was soft, non-tender, and without masses, organomegaly, or appreciable enlargement of the abdominal aorta. Extremities are intact. No cyanosis clubbing or edema. Skin is without rash or lesion. Shingles with right lesions in the right upper extremity. No open vesicles at this point in time. Neurologically, the patient is awake and alert and the patient does not have any focal neurological deficit. Cranial nerves are essentially intact. - Labs CBC & Chem 7: 09/15/23 07:54 09/17/23 10:33 Labs: Abnormal Lab Results - Last 24 Hours (Table) 09/17/23 09/17/23 09/18/23 Range/Units 16:09 20:07 06:04 POC Glucose (mg/dL) 288 H 154 H 138 H (70-110) mg/dL 09/18/23 Range/Units 11:24 POC Glucose (mg/dL) 157 H (70-110) mg/dL Assessment and Plan Plan: Acute on chronic hypoxic respiratory failure. Patient was discharged from the hospital on 08/09/2023 after being treated for CHF/COPD exacerbation and suspected right lower lobe pneumonia. She is coming in for another hospitalization and the blood gas clearly shows an acute on top of chronic hypercapnic respiratory failure currently on of the BiPAP. The patient is still using the BiPAP overnight and she was transition to 5 L of oxygen by nasal cannula. This is her baseline oxygen requirements. She has chronic shortness of breath and chronic hypoxic respiratory failure. Acute decompensation seems to have improved for now. Advanced COPD, oxygen dependent at 5 L/min nasal cannula is steroid-dependent at 10 mg of prednisone daily basis, the patient is currently on a combination of Spiriva and Symbicort on outpatient basis. Ex-smoker. Coronary artery disease, involving the LAD, with 40 to 50% stenosis, and a patent proximal RCA stent. Severe aortic stenosis with a valve surface area of 0.6 cm, previous aortic valve valvuloplasty Shingles history, recovered History of hyperlipidemia. History of hypertension. History of chronic low back pain. Obesity. Prior history of heavy tobacco use. Plan: Continue same treatment for now. Clinically stable. Continue BiPAP for now at the same settings, and this will be essentially denied overnight. No signs of any CO2 narcosis Will obtain a blood gas from the pCO2 is above 52, the patient will be Able to qualify for a home BiPAP machine or a noninvasive positive pressure ventilator regarding her chronic hypoxic and hypercapnic respiratory failure and recurrent hospitalizations. She is willing to undertake the treatment. If she qualifies, should be able to arrange the ventilator for her in a.m. Continue bronchodilators with DuoNeb updrafts Continue Symbicort Continue oral prednisone Continue oral Lasix 40 mg p.o. twice a day. Continue Augmentin chest x-ray stable and there is no consolidation or airspace disease KVO IV fluids Incentive spirometer Increase mobility
[2023-09-18 16:16] LABS: Glucose,Whole Blood 219 mg/dL (70-110)
[2023-09-18 17:05] LABS: ABG Base Excess 17.1 mmol/L; ABG PCO2 68 mmHg (35-45); ABG PH 7.42 (7.35-7.45); Allen Test Performed? Yes
[2023-09-18 17:09] LABS: ABG PO2 54 mmHg (83-108)
[2023-09-18 17:10] LABS: ABG HCO3 44 mmol/L (21-25)
[2023-09-18 20:08] LABS: Glucose,Whole Blood 184 mg/dL (70-110)
--- NOTE | 2023-09-18 23:01 | PN ---
PROGRESS NOTE DATE OF SERVICE: 09/18/2023 SUBJECTIVE: This is a 63-year-old woman, who was admitted with COPD acute exacerbation, also had respiratory acidosis. The patient also had SVT. No chest pain. No palpitations. No fever. PHYSICAL EXAMINATION: VITAL SIGNS: Pulse is 69, blood pressure 112/56, respirations 20. CHEST: Few scattered rhonchi. ABDOMEN: Soft. NERVOUS SYSTEM: Nonfocal. LABORATORY DATA: Accu-Cheks noted. ASSESSMENT: 1. Chronic obstructive pulmonary disease exacerbation with acute hypoxic hypercarbic respiratory failure. 2. Respiratory acidosis. 3. Severe aortic stenosis. 4. Supraventricular tachycardia. 5. Chronic diastolic congestive heart failure. 6. Coronary artery disease. 7. Multiple complex medical issues. RECOMMENDATIONS: Recommend to continue current medical management and continue with diuretics. Increase ambulation. Possible discharge in the next 24 hours if stable. MMODL / IJN: [id number] /
[2023-09-19 06:39] LABS: Glucose,Whole Blood 131 mg/dL (70-110)
[2023-09-19 08:46] LABS: African American GFR (CKD) >90 (>60 ml/min/1.73 sqM); Blood Urea Nitrogen 31 mg/dL (7-17); Calcium 8.9 mg/dL (8.4-10.2); Chloride 89 mmol/L (98-107); Glucose 105 mg/dL (74-99); Non-African American GFR(CKD) 82 (>60 ml/min/1.73 sqM); Potassium 3.9 mmol/L (3.5-5.1); Sodium 135 mmol/L (137-145)
[2023-09-19 08:54] LABS: Anion Gap 1 mmol/L
[2023-09-19 08:56] LABS: Carbon Dioxide 45 mmol/L (22-30)
[2023-09-19 09:08] LABS: Basophils % (A) 0 %; Eosinophils # (A) 0.4 k/uL (0-0.7); Eosinophils % (A) 3 %; HCT 34.2 % (34.0-46.0); HGB 10.8 gm/dL (11.4-16.0); Hypochromasia Slight; Lymphocytes % (A) 14 %; MCH 30.6 pg (25.0-35.0); MCHC 31.4 g/dL (31.0-37.0); MCV 97.5 fL (80.0-100.0); Mean Platelet Volume 8.4; Monocytes # (A) 1.3 k/uL (0-1.0); Monocytes % (A) 9 %; Neutrophils # (A) 10.6 k/uL (1.3-7.7); Neutrophils % (A) 72 %; Platelet Count 280 k/uL (150-450); RBC 3.51 m/uL (3.80-5.40); RDW 14.4 % (11.5-15.5); WBC 14.6 k/uL (3.8-10.6)
[2023-09-19 11:38] LABS: Glucose,Whole Blood 175 mg/dL (70-110)
--- NOTE | 2023-09-19 14:18 | PN ---
PROGRESS NOTE DATE OF SERVICE: 09/19/2023 SUBJECTIVE: This is a 63-year-old woman, who was admitted with COPD, is also using BiPAP. No chest pain. No palpitation. 2D echo showed ejection fraction 25% to 30%. OBJECTIVE: VITAL SIGNS: Pulse is 62, blood pressure 108/60, respirations 20. CHEST: A few scattered rhonchi and crackles. ABDOMEN: Soft. NERVOUS SYSTEM: Nonfocal. LABORATORY DATA: Reviewed. ASSESSMENT: 1. Chronic obstructive pulmonary disease acute exacerbation with acute hypoxic hypercapnic respiratory failure. 2. Respiratory acidosis. 3. Severe aortic stenosis with chronic systolic dysfunction, ejection fraction 25% to 30%. 4. Supraventricular tachycardia. 5. Coronary artery disease. 6. Multiple complex medical issues. RECOMMENDATIONS: Recommend to continue current management and continue symptomatic treatment. Otherwise, I would recommend repeat labs. Repeat chest x-ray. Closely follow with multiple consultants, p.o. diuretics. Further recommendations to follow. MMODL / IJN: [id number] /
--- NOTE | 2023-09-19 15:26 | P.PN ---
Subjective Progress Note Date: 09/19/23 Principal diagnosis: Acute on chronic hypoxic and hypercapnic respiratory failure secondary to advanced COPD 64-year-old female patient presents to the emergency because of difficulty in breathing. Apparently, she has been experiencing worsening shortness of breath over the past few days and she has become hypoxic. No reported fever or chills or night sweats. No hemoptysis or pleurisy. She does have a chronic cough. She has chronic lower extremity edema. The patient is known to me from previous hospital admissions. She has chronic hypoxic maintained on oxygen 5 L/min nasal cannula and the patient has been maintained on prednisone at a dose of 10 mg p.o. daily and DuoNeb updrafts. Her last hospital admission was back in July 2023. At that time, I evaluated and treated this patient. The patient had an acute on top of chronic hypoxic respiratory failure and she required high flow oxygen for a considerable period of time and she gradually improved. During the course of her illness, the patient was treated with a combination of bronchodilators, steroids and diuretics. She is known to have CAD with previous stenting of the RCA and she does have some residual stenosis of the LAD in the order of 40 to 50%. She suffered some severe aortic valve stenosis and she has undergone valvuloplasty, she has hypertension, hyperlipidemia, obesity, chronic back pain, and possibly obstructive sleep apnea. The patient was discharged home on 08/09/2023 as her oxygenation status improved and she was discharged home on 7 L of oxygen by nasal cannula. Currently she is on a BiPAP pressure of 16 over 8 cm of water with an FiO2 of 50%. The blood gas showed a pH of 7.23 with a pCO2 of 84 and a pO2 of 110. BUN is 24 with a creatinine of 0.7. Sodium is at 138 with a potassium level of 2.9. The white cell count is 15.8 with a hemoglobin of 10.1 and a platelet count of 261. Normal coagulation profile. Chest x-ray from this current admission was noted and reviewed and compared to the earlier chest x-rays. There is an obvious improvement in the right lower l obe consolidation as well as noted earlier. She is alert and awake and communicating. She is currently on DuoNeb updrafts, IV Solu-Medrol 40 mg every 12 hours. She is also on Lasix 40 mg p.o. twice a day. 09/15/2023, the patient is being seen for a follow-up. Less short of breath compared to yesterday. The patient utilized the BiPAP throughout the night at a pressure of 16 over 5 cm of water. The patient is currently on oxygen 5 L/min nasal cannula with a pulse ox of 98%. No signs of any CO2 narcosis. No chest pain. She has chronic dyspnea with limited exercise capacity due to her adv anced COPD. On her chest x-ray, there is no clear indication for an underlying pneumonia. X-ray of the ribs were also done as the patient was having some right sided chest wall pain. This was a limited evaluation due to overlapping of the soft tissue and poor penetration. However, there was no displaced fractures. WBC count at 17 with a hemoglobin 8.7 and a platelet count of 236. Electrolytes show a BUN of 42 with a creatinine of 0.9 and sodium levels of 137 with a potassium level of 5.2. She remains on DuoNeb updrafts. She remains on Augmentin. She remains on Symbicort as maintenance. She is on Lasix 40 mg IV every 12 hours. She is also on IV Solu-Medrol 40 mg every 12 hours. Awake and alert. Denies having any other specific complaints for now. 09/16/2023, the patient is being seen for a follow-up. Doing well. No specific complaints. Utilizing the BiPAP overnight and currently is on 5 L of oxygen by nasal cannula with a pulse ox of 92%. BUN is at 47 with creatinine of 0.9. Sodium levels at 138 and a potassium level of 4.7. Adequate input output has not been done. The patient remains on IV Lasix. Remains on DuoNeb updrafts, oral Augmentin and IV Solu-Medrol 40 mg every 12 hours. No signs of any CO2 narcosis. No altered mentation patient is calm and comfortable. She is having some right-sided chest wall pain. No evidence of fracture based on the x-rays. 09/17/2023, the patient is being seen for a follow-up. Patient is doing well. No specific complaints. Awake and alert. No signs of any CO2 narcosis. Wearing the BiPAP overnight. Currently on 5 L of oxygen by nasal cannula with a pulse ox of 99%. BUN is at 43 with a creatinine of 0.9. Potassium is at 4.5. Serum bicarb is 41 with a sodium level of 137. On today's evaluation of 09/18/2023, patient is stable without any complaints. The patient remains on 5 L oxygen by nasal cannula. No signs of any CO2 narcosis. No signs of any respiratory distress or chest pain. Currently on bronchodilators. Currently on prednisone as part of the burst taper. Maintained on Symbicort. Lisinopril and Lasix. Heparin subcu for DVT prophylaxis. Awake and alert and resting comfortably in bed. Utilizing a BiPAP overnight. Patient was reevaluated today on 09/19/2023, patient remains on the medical floor, improving, feeling better, breathing easier, patient may qualify for BiPAP machine at home, based on her elevated pCO2 on ABG as noted on the blood test ordered by Dr. Rahman patient had multiple admissions to the hospital with acute on chronic hypoxic and hypercapnic respiratory failure, I believe utilizing BiPAP may help avoid further readmissions. Patient is now on 5 L nasal cannula O2 sats of 97%, she is hemodynamically stable, feeling better, she is on maximal therapy for her COPD Objective - Vital Signs Vital signs: Vital Signs Temp 98.4 F 09/19/23 11:35 Pulse 82 09/19/23 12:03 Resp 20 09/19/23 11:35 BP 102/62 09/19/23 11:35 Pulse Ox 97 09/19/23 11:35 FiO2 50 09/19/23 04:11 Intake & Output 09/18/23 09/19/23 09/19/23 18:59 06:59 18:59 Intake Total 10 370 Balance 10 370 Weight 92 kg Intake: IV 10 10 Invasive Line 2 10 10 Oral 0 360 Other: Voiding Method Bedside Commode Bedside Commode Bedside Commode # Voids 1 2 3 - Exam General: The patient is awake and alert, in no distress, and does not appear acutely ill. On 5 L nasal cannula Skin: Skin is warm and dry and no rashes or lesions are noted. Eye: Pupils are equal, round and reactive to light, extra-ocular movements are intact; there is normal conjunctiva bilaterally. Ears, nose, mouth and throat: There are moist mucous membranes and no oral lesions. Neck: The neck is supple, there is no tenderness or JVD. Cardiovascular: There is a regular rate and rhythm. No murmur, rub or gallop is appreciated. Respiratory:Breath sounds at the bases no crackles rhonchi or wheezes Gastrointestinal: Soft, non-distended, non-tender abdomen without masses or organomegaly noted. There is no rebound or guarding present. Bowel sounds are unremarkable. Back: There is no tenderness to palpation in the midline. There is no obvious deformity. Musculoskeletal: Normal ROM, no tenderness, There is no pedal edema. There is no calf tenderness or swelling. No cords were appreciated. Neurological: CN II-XII intact, Cranial nerves III through XII are intact. There are no obvious motor or sensory deficits. Coordination appears grossly intact. Speech is normal. Psychiatric: Cooperative, appropriate mood & affect, normal judgment. - Labs CBC & Chem 7: 09/19/23 07:39 09/19/23 07:39 Labs: Abnormal Lab Results - Last 24 Hours (Table) 09/18/23 09/18/23 09/18/23 Range/Units 16:14 17:09 20:06 WBC (3.8-10.6) k/uL RBC (3.80-5.40) m/uL Hgb (11.4-16.0) gm/dL Neutrophils # (1.3-7.7) k/uL Monocytes # (0-1.0) k/uL ABG pCO2 68 H (35-45) mmHg ABG pO2 54 L* (83-108) mmHg ABG HCO3 44 H* (21-25) mmol/L ABG O2 Saturation 88.0 L (94-97) % Sodium (137-145) mmol/L Chloride (98-107) mmol/L Carbon Dioxide (22-30) mmol/L BUN (7-17) mg/dL Glucose (74-99) mg/dL POC Glucose (mg/dL) 219 H 184 H (70-110) mg/dL 09/19/23 09/19/23 09/19/23 Range/Units 06:38 07:39 07:39 WBC 14.6 H (3.8-10.6) k/uL RBC 3.51 L (3.80-5.40) m/uL Hgb 10.8 L (11.4-16.0) gm/dL Neutrophils # 10.6 H (1.3-7.7) k/uL Monocytes # 1.3 H (0-1.0) k/uL ABG pCO2 (35-45) mmHg ABG pO2 (83-108) mmHg ABG HCO3 (21-25) mmol/L ABG O2 Saturation (94-97) % Sodium 135 L (137-145) mmol/L Chloride 89 L (98-107) mmol/L Carbon Dioxide 45 H* (22-30) mmol/L BUN 31 H (7-17) mg/dL Glucose 105 H (74-99) mg/dL POC Glucose (mg/dL) 131 H (70-110) mg/dL 09/19/23 Range/Units 11:36 WBC (3.8-10.6) k/uL RBC (3.80-5.40) m/uL Hgb (11.4-16.0) gm/dL Neutrophils # (1.3-7.7) k/uL Monocytes # (0-1.0) k/uL ABG pCO2 (35-45) mmHg ABG pO2 (83-108) mmHg ABG HCO3 (21-25) mmol/L ABG O2 Saturation (94-97) % Sodium (137-145) mmol/L Chloride (98-107) mmol/L Carbon Dioxide (22-30) mmol/L BUN (7-17) mg/dL Glucose (74-99) mg/dL POC Glucose (mg/dL) 175 H (70-110) mg/dL Microbiology - Last 24 Hours (Table) 09/13/23 14:34 Blood Culture - Final Blood 09/13/23 14:34 Blood Culture - Final Blood Assessment and Plan Assessment: Impression: Acute on chronic hypoxic respiratory failure. And hypercapnic respiratory failure Advanced COPD, oxygen dependent Coronary artery disease, involving the LAD, with 40 to 50% stenosis, and a patent proximal RCA stent. Severe aortic stenosis with a valve surface area of 0.6 cm, previous aortic valve valvuloplasty History of hyperlipidemia. History of hypertension. History of chronic low back pain. Obesity. Ex-smoker Commendation: Continue present treatment plan including bronchodilators Continue BiPAP, patient should have home BiPAP machine or an noninvasive positive pressure ventilator regarding her chronic hypoxic and hypercapnic respiratory failure requiring multiple readmissions patient is willing to undertake the treatment if she qualifies and she does Continue bronchodilators including DuoNebs Symbicort, continue prednisone Continue Lasix and oral Augmentin Will continue to follow Time with Patient: Less than 30
[2023-09-19 16:54] LABS: Glucose,Whole Blood 275 mg/dL (70-110)
[2023-09-19 20:03] LABS: Glucose,Whole Blood 181 mg/dL (70-110)
[2023-09-20 05:52] LABS: Glucose,Whole Blood 128 mg/dL (70-110)
--- NOTE | 2023-09-20 08:06 | XR ---
EXAMINATION TYPE: XR chest 1V portable DATE OF EXAM: 09/20/2023 COMPARISON: 09/15/2023, 09/13/2023 INDICATION: CHF TECHNIQUE: Single frontal view of the chest is obtained. FINDINGS: The heart size is normal. The pulmonary vasculature is normal. The lungs are clear. IMPRESSION: 1. No acute pulmonary process.
[2023-09-20 08:56] VITALS: TEMP 98.4
[2023-09-20 10:38] LABS: Basophils # (A) 0.1 k/uL (0-0.2); Basophils % (A) 0 %; Eosinophils # (A) 0.4 k/uL (0-0.7); Eosinophils % (A) 2 %; HCT 34.9 % (34.0-46.0); HGB 10.6 gm/dL (11.4-16.0); Hypochromasia Moderate; Lymphocytes # (A) 2.2 k/uL (1.0-4.8); Lymphocytes % (A) 14 %; MCH 30.3 pg (25.0-35.0); MCHC 30.5 g/dL (31.0-37.0); MCV 99.4 fL (80.0-100.0); Macrocytosis Slight; Mean Platelet Volume 8.2; Monocytes % (A) 6 %; Neutrophils # (A) 12.5 k/uL (1.3-7.7); Neutrophils % (A) 76 %; Platelet Count 325 k/uL (150-450); RBC 3.51 m/uL (3.80-5.40); RDW 14.5 % (11.5-15.5); WBC 16.4 k/uL (3.8-10.6)
[2023-09-20 10:49] LABS: African American GFR (CKD) 85 (>60 ml/min/1.73 sqM); Blood Urea Nitrogen 34 mg/dL (7-17); Calcium 8.9 mg/dL (8.4-10.2); Chloride 89 mmol/L (98-107); Glucose 172 mg/dL (74-99); Non-African American GFR(CKD) 74 (>60 ml/min/1.73 sqM); Potassium 3.7 mmol/L (3.5-5.1); Sodium 133 mmol/L (137-145)
[2023-09-20 10:57] LABS: Anion Gap 5 mmol/L
[2023-09-20 10:58] LABS: Carbon Dioxide 39 mmol/L (22-30)
[2023-09-20 11:24] LABS: Glucose,Whole Blood 183 mg/dL (70-110)
[2023-09-20 11:43] VITALS: BMI 31.7
[2023-09-20 12:38] VITALS: PULSE 80
[2023-09-20 12:39] VITALS: BP 132/51; RESP 20
--- NOTE | 2023-09-20 15:11 | P.PN ---
Subjective Progress Note Date: 09/20/23 Principal diagnosis: Acute on chronic hypoxic and hypercapnic respiratory failure secondary to advanced COPD 64-year-old female patient presents to the emergency because of difficulty in breathing. Apparently, she has been experiencing worsening shortness of breath over the past few days and she has become hypoxic. No reported fever or chills or night sweats. No hemoptysis or pleurisy. She does have a chronic cough. She has chronic lower extremity edema. The patient is known to me from previous hospital admissions. She has chronic hypoxic maintained on oxygen 5 L/min nasal cannula and the patient has been maintained on prednisone at a dose of 10 mg p.o. daily and DuoNeb updrafts. Her last hospital admission was back in July 2023. At that time, I evaluated and treated this patient. The patient had an acute on top of chronic hypoxic respiratory failure and she required high flow oxygen for a considerable period of time and she gradually improved. During the course of her illness, the patient was treated with a combination of bronchodilators, steroids and diuretics. She is known to have CAD with previous stenting of the RCA and she does have some residual stenosis of the LAD in the order of 40 to 50%. She suffered some severe aortic valve stenosis and she has undergone valvuloplasty, she has hypertension, hyperlipidemia, obesity, chronic back pain, and possibly obstructive sleep apnea. The patient was discharged home on 08/09/2023 as her oxygenation status improved and she was discharged home on 7 L of oxygen by nasal cannula. Currently she is on a BiPAP pressure of 16 over 8 cm of water with an FiO2 of 50%. The blood gas showed a pH of 7.23 with a pCO2 of 84 and a pO2 of 110. BUN is 24 with a creatinine of 0.7. Sodium is at 138 with a potassium level of 2.9. The white cell count is 15.8 with a hemoglobin of 10.1 and a platelet count of 261. Normal coagulation profile. Chest x-ray from this current admission was noted and reviewed and compared to the earlier chest x-rays. There is an obvious improvement in the right lower l obe consolidation as well as noted earlier. She is alert and awake and communicating. She is currently on DuoNeb updrafts, IV Solu-Medrol 40 mg every 12 hours. She is also on Lasix 40 mg p.o. twice a day. 09/15/2023, the patient is being seen for a follow-up. Less short of breath compared to yesterday. The patient utilized the BiPAP throughout the night at a pressure of 16 over 5 cm of water. The patient is currently on oxygen 5 L/min nasal cannula with a pulse ox of 98%. No signs of any CO2 narcosis. No chest pain. She has chronic dyspnea with limited exercise capacity due to her adv anced COPD. On her chest x-ray, there is no clear indication for an underlying pneumonia. X-ray of the ribs were also done as the patient was having some right sided chest wall pain. This was a limited evaluation due to overlapping of the soft tissue and poor penetration. However, there was no displaced fractures. WBC count at 17 with a hemoglobin 8.7 and a platelet count of 236. Electrolytes show a BUN of 42 with a creatinine of 0.9 and sodium levels of 137 with a potassium level of 5.2. She remains on DuoNeb updrafts. She remains on Augmentin. She remains on Symbicort as maintenance. She is on Lasix 40 mg IV every 12 hours. She is also on IV Solu-Medrol 40 mg every 12 hours. Awake and alert. Denies having any other specific complaints for now. 09/16/2023, the patient is being seen for a follow-up. Doing well. No specific complaints. Utilizing the BiPAP overnight and currently is on 5 L of oxygen by nasal cannula with a pulse ox of 92%. BUN is at 47 with creatinine of 0.9. Sodium levels at 138 and a potassium level of 4.7. Adequate input output has not been done. The patient remains on IV Lasix. Remains on DuoNeb updrafts, oral Augmentin and IV Solu-Medrol 40 mg every 12 hours. No signs of any CO2 narcosis. No altered mentation patient is calm and comfortable. She is having some right-sided chest wall pain. No evidence of fracture based on the x-rays. 09/17/2023, the patient is being seen for a follow-up. Patient is doing well. No specific complaints. Awake and alert. No signs of any CO2 narcosis. Wearing the BiPAP overnight. Currently on 5 L of oxygen by nasal cannula with a pulse ox of 99%. BUN is at 43 with a creatinine of 0.9. Potassium is at 4.5. Serum bicarb is 41 with a sodium level of 137. On today's evaluation of 09/18/2023, patient is stable without any complaints. The patient remains on 5 L oxygen by nasal cannula. No signs of any CO2 narcosis. No signs of any respiratory distress or chest pain. Currently on bronchodilators. Currently on prednisone as part of the burst taper. Maintained on Symbicort. Lisinopril and Lasix. Heparin subcu for DVT prophylaxis. Awake and alert and resting comfortably in bed. Utilizing a BiPAP overnight. Patient was reevaluated today on 09/19/2023, patient remains on the medical floor, improving, feeling better, breathing easier, patient may qualify for BiPAP machine at home, based on her elevated pCO2 on ABG as noted on the blood test ordered by Dr. Rahman patient had multiple admissions to the hospital with acute on chronic hypoxic and hypercapnic respiratory failure, I believe utilizing BiPAP may help avoid further readmissions. Patient is now on 5 L nasal cannula O2 sats of 97%, she is hemodynamically stable, feeling better, she is on maximal therapy for her COPD Patient was noted today on 09/20/2023, patient is feeling better, breathing easier patient did not qualify for BiPAP and arrangements are being made for the patient to have BiPAP at home. Patient is on 5 L nasal cannula, O2 sat is 90%, remains on multiple bronchodilators and steroids. Chest x-ray today showed no evidence of active disease. Objective - Vital Signs Vital signs: Vital Signs Temp 98.4 F 09/20/23 08:00 Pulse 80 09/20/23 13:49 Resp 20 09/20/23 12:10 BP 132/51 09/20/23 12:10 Pulse Ox 90 L 09/20/23 12:10 FiO2 40 09/20/23 07:52 Intake & Output 09/19/23 09/20/23 09/20/23 18:59 06:59 18:59 Intake Total 550 10 240 Balance 550 10 240 Weight 92 kg Intake: IV 10 10 Invasive Line 2 10 10 Oral 540 240 Other: Voiding Method Bedside Commode Bedside Commode Bedside Commode # Voids 2 2 1 - Exam General: The patient is awake and alert, in no distress, and does not appear acutely ill. On 5 L nasal cannula Skin: Skin is warm and dry and no rashes or lesions are noted. Eye: Pupils are equal, round and reactive to light, extra-ocular movements are intact; there is normal conjunctiva bilaterally. Ears, nose, mouth and throat: There are moist mucous membranes and no oral lesions. Neck: The neck is supple, there is no tenderness or JVD. Cardiovascular: There is a regular rate and rhythm. No murmur, rub or gallop is appreciated. Respiratory:Minimal wheezing on forced expiratory maneuver noted today, diminished breath sounds at the bases Gastrointestinal: Soft, non-distended, non-tender abdomen without masses or organomegaly noted. There is no rebound or guarding present. Bowel sounds are unremarkable. Back: There is no tenderness to palpation in the midline. There is no obvious deformity. Musculoskeletal: Normal ROM, no tenderness, There is no pedal edema. There is no calf tenderness or swelling. No cords were appreciated. Neurological: CN II-XII intact, Cranial nerves III through XII are intact. There are no obvious motor or sensory deficits. Coordination appears grossly intact. Speech is normal. Psychiatric: Cooperative, appropriate mood & affect, normal judgment. - Labs CBC & Chem 7: 09/20/23 09:23 09/20/23 09:23 Labs: Abnormal Lab Results - Last 24 Hours (Table) 09/19/23 09/19/23 09/20/23 Range/Units 16:49 20:01 05:51 WBC (3.8-10.6) k/uL RBC (3.80-5.40) m/uL Hgb (11.4-16.0) gm/dL MCHC (31.0-37.0) g/dL Neutrophils # (1.3-7.7) k/uL Sodium (137-145) mmol/L Chloride (98-107) mmol/L Carbon Dioxide (22-30) mmol/L BUN (7-17) mg/dL Glucose (74-99) mg/dL POC Glucose (mg/dL) 275 H 181 H 128 H (70-110) mg/dL 09/20/23 09/20/23 09/20/23 Range/Units 09:23 09:23 11:23 WBC 16.4 H (3.8-10.6) k/uL RBC 3.51 L (3.80-5.40) m/uL Hgb 10.6 L (11.4-16.0) gm/dL MCHC 30.5 L (31.0-37.0) g/dL Neutrophils # 12.5 H (1.3-7.7) k/uL Sodium 133 L (137-145) mmol/L Chloride 89 L (98-107) mmol/L Carbon Dioxide 39 H (22-30) mmol/L BUN 34 H (7-17) mg/dL Glucose 172 H (74-99) mg/dL POC Glucose (mg/dL) 183 H (70-110) mg/dL Assessment and Plan Assessment: Impression: Acute on chronic hypoxic respiratory failure. And chronic hypercapnic respiratory failure Advanced COPD, oxygen dependent Coronary artery disease, involving the LAD, with 40 to 50% stenosis, and a patent proximal RCA stent. Severe aortic stenosis with a valve surface area of 0.6 cm, previous aortic valve valvuloplasty History of hyperlipidemia. History of hypertension. History of chronic low back pain. Obesity. Ex-smoker Commendation: Continue present treatment plan including bronchodilators Agree fully with BiPAP for this patient at home, patient qualified based on her ABG Continue bronchodilators including DuoNebs Symbicort, continue prednisone Continue Lasix and oral Augmentin Consider discharge planning if BiPAP could be delivered to the patient home today Time with Patient: Less than 30
--- NOTE | 2023-09-23 07:08 | P.DS ---
Providers Date of admission: 09/13/23 19:30 Expected date of discharge: 09/20/23 Attending physician: Seferino Crawford Consults: 09/14/23 11:37 Consult Physician Routine Consulting Provider: Antoni Hinkle Consult Reason/Comments: SVT Do you want consulting provider notified?: Yes Consult Physician Routine Consulting Provider: Nelly Rahman Consult Reason/Comments: COPD Do you want consulting provider notified?: Yes Primary care physician: Jeremy Ennis Hospital Course: Final diagnosis -Acute hypoxic and hypercapnic respiratory failure secondary to obesity hypove ntilation syndrome sleep apnea and COPD exacerbation, requiring BiPAP -Respiratory acidosis with partial compensation -Severe aortic stenosis -SVT on admission presently sinus tachycardia. SVT secondary to hypoxemia -Likely chronic diastolic function patient is not in acute exacerbation -Hypokalemia secondary to Lasix -Coronary disease with myocardial infarction in the past -Obesity hypoventilation syndrome sleep apnea -Depression DVT prophylaxis GI prophylaxis Full code with no intubation Discharge disposition Patient is being discharged in a stable condition with guarded prognosis to home. Patient will follow-up with Dr. Ennis in the outpatient setting upon discharge. Patient is to continue with current medications and close outpatient follow-up with pulmonary as scheduled. Patient receiving a BiPAP at home. Total time taken is greater than 35 minutes. Hospital course This is a 63-year-old female who was recently admitted with increased shortness of breath with COPD exacerbation with acute on chronic hypoxic respiratory failure requiring BiPAP. Patient being followed by pulmonary maintained on IV steroids and [id number] treatments along with BiPAP and transition to her 4 to 5 L that she chronically wears during the day. Patient has had multiple rehospitalizations regarding this and has been unsuccessful thus far getting a BiPAP in the home. Pulmonary currently making arrangements and paperwork to initiate BiPAP. BiPAP has been approved by insurance and will be delivered to the home. Patient is medically stable per pulmonary for discharge home. Please refer to other consultation notes for further HPI. Currently no reports of chest pain, shortness of breath, or palpitations. Patient is afebrile. No reports of nausea or vomiting and patient is tolerating diet. Patient will be discharged home today. Guarded prognosis and high risk for readmissions given patient's significant COPD. Physical exam: Gen: This is a 63-year-old female who is awake, alert and oriented x 3, well- developed, elderly appearing, obese HEENT: Head is atraumatic, normocephalic. Pupils equal, round. Sclerae is anicteric. NECK: Supple. No JVD. No lymphadenopathy. No thyromegaly. LUNGS: Diminished breath sounds bilaterally with faint expiratory wheezes and coarse scattered rhonchi. No intercostal retractions. HEART: Regular rate and rhythm. No murmur. ABDOMEN: Soft. Obese. Bowel sounds are present. No masses. No tenderness. EXTREMITIES: No pedal edema. No calf tenderness. NEUROLOGICAL: Patient is awake, alert and oriented x3. Cranial nerves 2 through 12 are grossly intact. Please refer to medication reconciliation sheet for a list of medications. The impression and plan of care has been dictated by Vanna Chacon, Nurse Practitioner as directed. Dr. Ty MD I have performed a history and examination and MDM of this patient, discussed the same with the dictator, and agree with the dictator's assessment and plan as written ,documented as a scribe. Based on total visit time, I have performed more than 50% of the visit. Patient Condition at Discharge: Fair Plan - Discharge Summary Discharge Rx Participant: Yes New Discharge Prescriptions: New predniSONE 10 mg PO DIRECTED #30 tab Metoprolol Succinate (ER) [Toprol XL] 50 mg PO BID tab Continue Albuterol Inhaler [Ventolin Hfa Inhaler] 2 puff INHALATION RT-Q4H PRN PRN Reason: Shortness Of Breath Aspirin 81 mg PO DAILY 30 Days #30 tab Yupelri 175mcg/3ml 175 mcg INHALATION RT-DAILY predniSONE 5 mg PO DAILY Tiotropium Silt [Spiriva Handihaler] 1 cap INHALATION RT-DAILY Nitroglycerin Sl Tabs [Nitrostat] 0.4 mg SL Q5M PRN PRN Reason: Chest Pain Potassium Chloride ER [K-Dur 20] 20 meq PO BID #60 tab Furosemide [Lasix] 40 mg PO BID #60 tab Atorvastatin [Lipitor] 40 mg PO HS Sertraline [Zoloft] 100 mg PO DAILY Budesonide/Formoterol Fumarate [Symbicort 160-4.5 Mcg Inhaler] 2 puff INHALATION RT-BID Ipratropium-Albuterol Nebulize [Duoneb 0.5 mg-3 mg/3 ml Soln] 3 ml INHALATION RT-QID PRN PRN Reason: Shortness Of Breath Dapagliflozin Propanediol [Farxiga] 5 mg PO DAILY hydrOXYzine HCL [Atarax] 25 mg PO BID Ipratropium-Albuterol Nebulize [Duoneb 0.5 mg-3 mg/3 ml Soln] 3 ml INHALATION RT-QID #100 each Acetaminophen Tab [Tylenol] 650 mg PO Q4HR PRN tab PRN Reason: Fever And/Or Mild Pain Meloxicam [Mobic] 7.5 mg PO BID Discontinued Metoprolol Succinate (ER) [Toprol XL] 25 mg PO TID #60 tab lisinopriL 30 mg PO DAILY Discharge Medication List Albuterol Inhaler [Ventolin Hfa Inhaler] 2 puff INHALATION RT-Q4H PRN 04/09/22 [History] Atorvastatin [Lipitor] 40 mg PO HS 04/09/22 [History] Aspirin 81 mg PO DAILY 30 Days #30 tab 04/12/22 [Rx] Sertraline [Zoloft] 100 mg PO DAILY 06/15/22 [History] Budesonide/Formoterol Fumarate [Symbicort 160-4.5 Mcg Inhaler] 2 puff INHALATION RT-BID 07/13/22 [History] Ipratropium-Albuterol Nebulize [Duoneb 0.5 mg-3 mg/3 ml Soln] 3 ml INHALATION RT-QID PRN 09/23/22 [History] Dapagliflozin Propanediol [Farxiga] 5 mg PO DAILY 11/19/22 [History] Yupelri 175mcg/3ml 175 mcg INHALATION RT-DAILY 11/19/22 [History] hydrOXYzine HCL [Atarax] 25 mg PO BID 11/19/22 [History] Tiotropium Silt [Spiriva Handihaler] 1 cap INHALATION RT-DAILY 04/19/23 [History] predniSONE 5 mg PO DAILY 04/19/23 [History] Acetaminophen Tab [Tylenol] 650 mg PO Q4HR PRN tab 05/18/23 [Rx] Ipratropium-Albuterol Nebulize [Duoneb 0.5 mg-3 mg/3 ml Soln] 3 ml INHALATION RT-QID #100 each 05/18/23 [Rx] Meloxicam [Mobic] 7.5 mg PO BID 06/30/23 [History] Nitroglycerin Sl Tabs [Nitrostat] 0.4 mg SL Q5M PRN 07/24/23 [History] Furosemide [Lasix] 40 mg PO BID #60 tab 08/09/23 [Rx] Potassium Chloride ER [K-Dur 20] 20 meq PO BID #60 tab 08/09/23 [Rx] Metoprolol Succinate (ER) [Toprol XL] 50 mg PO BID tab 09/20/23 [Rx] predniSONE 10 mg PO DIRECTED #30 tab 09/20/23 [Rx] Follow up Appointment(s)/Referral(s): Jeremy Ennis DO [Primary Care Provider] - 09/26/23 1:00 pm Nelly Rahman MD [STAFF PHYSICIAN] - 09/22/23 10:00 am (With Dr. Morgan) Patient Instructions/Handouts: Supraventricular Tachycardia (DC), Hypokalemia (DC), COPD (Chronic Obstructive Pulmonary Disease) (DC), Hypomagnesemia (DC) Activity/Diet/Wound Care/Special Instructions: Activity limited until follow-up Follow-up with primary care provider on discharge Follow-up with pulmonary outpatient Continue with current medications Continue with prednisone taper prior to resuming your daily dose of prednisone Continue with inhalers Discharge Disposition: HOME SELF-CARE
== END 2023-09-20 14:58 | disposition home or self-care (01) | DRG 189 ==
LOC: EC 14:00 → 3SCARD 19:30
PROVIDERS: ADMIT Hospitalist; ATTEND Hospitalist
DX: J96.21 Acute and chronic respiratory failure with hypoxia (principal); J44.1 Chronic obstructive pulmonary disease with (acute) exacerbation; J44.0 Chronic obstructive pulmonary disease with (acute) lower respiratory infection; E66.2 Morbid (severe) obesity with alveolar hypoventilation; E87.29 Other acidosis; I47.10 Supraventricular tachycardia, unspecified; I47.19 Other supraventricular tachycardia; I50.32 Chronic diastolic (congestive) heart failure; J96.22 Acute and chronic respiratory failure with hypercapnia; I35.0 Nonrheumatic aortic (valve) stenosis; Z87.891 Personal history of nicotine dependence; I10 Essential (primary) hypertension; I25.10 Atherosclerotic heart disease of native coronary artery without angina pectoris; I25.2 Old myocardial infarction; G89.29 Other chronic pain; E78.5 Hyperlipidemia, unspecified; E87.6 Hypokalemia; E83.42 Hypomagnesemia; Z86.79 Personal history of other diseases of the circulatory system; F32.A Depression, unspecified; Z11.52 Encounter for screening for COVID-19; F41.9 Anxiety disorder, unspecified; I49.3 Ventricular premature depolarization; I11.0 Hypertensive heart disease with heart failure; T50.1X5A Adverse effect of loop [high-ceiling] diuretics, initial encounter; Z79.1 Long term (current) use of non-steroidal anti-inflammatories (NSAID); Z79.51 Long term (current) use of inhaled steroids; Z79.52 Long term (current) use of systemic steroids; Z79.82 Long term (current) use of aspirin; Z79.84 Long term (current) use of oral hypoglycemic drugs; Z79.899 Other long term (current) drug therapy; Z95.5 Presence of coronary angioplasty implant and graft; Z99.81 Dependence on supplemental oxygen; X58.XXXA Exposure to other specified factors, initial encounter; Z82.49 Family history of ischemic heart disease and other diseases of the circulatory system; Z68.31 Body mass index [BMI] 31.0-31.9, adult
CPT/HCPCS: 36415; 36600; 71045; 80048; 80053; 82803; 82805; 83036; 83605; 83735; 83880; 84145; 84439; 84443; 84484; 85025; 85610; 85730; 87040; 93005; 93308; 94640; 94660; 94760; 96361; 96365; 96366; 96367; 96375; 96376; 99291

== ENCOUNTER 2023-10-12 07:55 | Inpatient (IN) | payer OTHER ==
[2023-10-12] MEDS: IPRATROPIUM-ALBUTEROL 3 ML NEB INHALATION STA (08:03)
[2023-10-12 08:17] LABS: VBG PH 7.37 (7.31-7.41)
[2023-10-12] MEDS: methylPREDNISolone SOD SUCCI 125 MG/2 ML VIAL IV STA (08:17)
[2023-10-12] MEDS: SODIUM CHLORIDE 0.9% 1,000 ML IV STA ×2 (08:18→09:40)
[2023-10-12] MEDS: MAGNESIUM SULFATE-D5W PMX 1 GM in DEXTROSE/WATER 1 100ML.BAG IVPB STA (08:20)
--- NOTE | 2023-10-12 08:36 | XR ---
EXAMINATION TYPE: XR chest 1V portable DATE OF EXAM: 10/12/2023 HISTORY: Shortness of breath. COMPARISON: 09/20/2023 TECHNIQUE: Single view of the chest is submitted. FINDINGS: Demonstrated are scattered senescent parenchymal change. Increased density right medial lung base may reflect underlying infiltrate and/or atelectasis. Correl ate clinically. The heart is stable. Hilar and mediastinal structures are within normal limits. Degenerative changes are seen of the dorsal spine. IMPRESSION: 1. Increased density right medial lung base may reflect underlying infiltrate and/or atelectasis. Co rrelate clinically.
[2023-10-12 08:38] LABS: ALT 17 U/L (4-34); AST 31 U/L (14-36); African American GFR (CKD) >90 (>60 ml/min/1.73 sqM); Albumin 3.9 g/dL (3.5-5.0); Alkaline Phosphatase 128 U/L (38-126); Anion Gap 7 mmol/L; Blood Urea Nitrogen 19 mg/dL (7-17); Calcium 8.9 mg/dL (8.4-10.2); Carbon Dioxide 33 mmol/L (22-30); Chloride 97 mmol/L (98-107); Glucose 192 mg/dL (74-99); Magnesium 2.5 mg/dL (1.6-2.3); Non-African American GFR(CKD) 82 (>60 ml/min/1.73 sqM); Potassium 4.4 mmol/L (3.5-5.1); Sodium 137 mmol/L (137-145); Total Bilirubin 1.1 mg/dL (0.2-1.3); Total Protein 6.6 g/dL (6.3-8.2)
[2023-10-12] MEDS ORDERED: IPRATROPIUM-ALBUTEROL 3 ML NEB INHALATION PRN (08:41)
[2023-10-12] MEDS ORDERED: PNEUMONIA PROTOCOL UTILIZED 1 EACH MISC PO PRN (08:41)
[2023-10-12 09:04] LABS: Basophils # (A) 0.1 k/uL (0-0.2); Basophils % (A) 1 %; Eosinophils # (A) 0.3 k/uL (0-0.7); Eosinophils % (A) 2 %; HCT 34.5 % (34.0-46.0); HGB 10.3 gm/dL (11.4-16.0); Hypochromasia Marked; Lymphocytes # (A) 2.8 k/uL (1.0-4.8); Lymphocytes % (A) 18 %; MCH 30.5 pg (25.0-35.0); MCHC 29.7 g/dL (31.0-37.0); MCV 102.6 fL (80.0-100.0); Macrocytosis Slight; Mean Platelet Volume 8.6; Monocytes # (A) 1.6 k/uL (0-1.0); Monocytes % (A) 11 %; Neutrophils # (A) 9.9 k/uL (1.3-7.7); Neutrophils % (A) 65 %; Platelet Count 348 k/uL (150-450); RBC 3.36 m/uL (3.80-5.40); RDW 14.3 % (11.5-15.5); WBC 15.2 k/uL (3.8-10.6)
[2023-10-12 09:22] LABS: Partial Thromboplastin Time 24.8 sec (22.0-30.0); Prothrombin Time 10.8 sec (10.0-12.5)
[2023-10-12] MEDS: PIPERACILLIN-TAZOBACTAM 3.375 GM in SODIUM CHLORIDE 0.9% 100 ML IVPB STA (09:35)
[2023-10-12] MEDS ORDERED: NALOXONE 0.4 MG/ML 1 ML VIAL IV PRN (09:46)
--- NOTE | 2023-10-12 09:49 | ED ---
General Adult HPI - General Chief complaint: Shortness of Breath Stated complaint: hard time breathing Time Seen by Provider: 10/12/23 07:55 Source: patient, EMS, RN notes reviewed, old records reviewed Mode of arrival: EMS Limitations: no limitations - History of Present Illness Initial comments: Patient is a 63-year-old female presents emergency department multiple days of worsening shortness of breath. Has a history of CAD with prior stenting, COPD on home oxygen, LOUISA on CPAP, as well as bicuspid aortic valve with severe stenosis. Patient also has hypertension hyperlipidemia. States she has been having shortness of breath for few days with a cough that seems nonproductive. Denies fevers. Denies nausea or vomiting. Denies diarrhea. Denies chest pain or abdominal pain. Breathing was worse today which is why she called EMS. Patient was found to be short of breath, hypoxic in the 50-60 presents by EMS and patient was placed on CPAP and transferred here for further evaluation. Patient did receive DuoNeb en route to the hospital. - Related Data Home Medications Medication Instructions Recorded Confirmed Albuterol Inhaler [Ventolin Hfa 2 puff INHALATION RT-Q4H PRN 04/09/22 10/12/23 Inhaler] Atorvastatin [Lipitor] 40 mg PO HS 04/09/22 10/12/23 Budesonide/Formoterol Fumarate 2 puff INHALATION RT-BID 07/13/22 10/12/23 [Symbicort 160-4.5 Mcg Inhaler] Ipratropium-Albuterol Nebulize 3 ml INHALATION RT-QID PRN 09/23/22 10/12/23 [Duoneb 0.5 mg-3 mg/3 ml Soln] Dapagliflozin Propanediol [Farxiga] 5 mg PO DAILY 11/19/22 10/12/23 Yupelri 175mcg/3ml 175 mcg INHALATION RT-DAILY 11/19/22 10/12/23 predniSONE 5 mg PO DAILY 04/19/23 10/12/23 Capsaicin Cream [Trixaicin Cream] 1 applic TOPICAL TID PRN 10/12/23 10/12/23 LORazepam [Ativan] 0.25 mg PO DAILY PRN 10/12/23 10/12/23 Sertraline [Zoloft] 150 mg PO DAILY 10/12/23 10/12/23 busPIRone HCl [Buspar] 5 mg PO BID 10/12/23 10/12/23 lisinopriL 30 mg PO DAILY 10/12/23 10/12/23 Previous Rx's Medication Instructions Recorded Aspirin 81 mg PO DAILY 30 Days #30 tab 04/12/22 Furosemide [Lasix] 40 mg PO BID #60 tab 08/09/23 Potassium Chloride ER [K-Dur 20] 20 meq PO BID #60 tab 08/09/23 Metoprolol Succinate (ER) [Toprol 50 mg PO BID tab 09/20/23 XL] Allergies Allergy/AdvReac Type Severity Reaction Status Date / Time No Known Allergies Allergy Verified 10/12/23 12:10 Review of Systems ROS Statement: Those systems with pertinent positive or pertinent negative responses have been documented in the HPI. Review of Systems: CONST: Denies fever EYES: Denies blurry vision ENT: Denies nasal congestion C/V: Denies Chest pain RESP: Endorses shortness of breath GI: Denies abdominal pain : Denies dysuria SKIN: Denies rash. MSK: Denies joint pain. NEURO: Denies headache ROS Other: All systems not noted in ROS Statement are negative. Past Medical History Past Medical History: Coronary Artery Disease (CAD), Chest Pain / Angina, COPD, Myocardial Infarction (NH), Respiratory Disorder Additional Past Medical History / Comment(s): Chronic hypercapnic respiratory failure, home oxygen at 5L/NC ATC, tracheobronchitis, severe bicuspid aortic valve stenosis, chronic low back pain, DJD Last Myocardial Infarction Date:: 04/2023 History of Any Multi-Drug Resistant Organisms: None Reported Past Surgical History: Breast Surgery, Heart Catheterization With Stent, Tubal Ligation Additional Past Surgical History / Comment(s): Bilateral breast reductions, bilateral cataract removals. Past Anesthesia/Blood Transfusion Reactions: No Reported Reaction Date of Last Stent Placement:: 04/2023 Past Psychological History: Anxiety, Depression Smoking Status: Former smoker Past Alcohol Use History: None Reported Past Drug Use History: None Reported - Past Family History Father History Unknown: Yes Mother Family Medical History: Congestive Heart Failure (CHF), Diabetes Mellitus General Exam - General Exam Comments Initial Comments: General: Appears in respiratory distress. HEAD: Normal with no signs of head trauma. EYES: PERRLA, EOMI, conjunctiva normal, no discharge. ENT: Hearing grossly intact, normal oropharynx. Mildly dry mucous membrane. RESPIRATORY: Bilateral end expiratory wheezing. Reduced breath sounds bilaterally. Hypoxia. Increased work of breathing. C/V: Tachycardic with a regular rhythm. S1 and S2 auscultated, peripheral pulses 2+ and intact throughout ABD: Abd is soft, nontender, nondistended EXT: Normal range of motion, no obvious deformity SKIN: No rashes or lesions observed on exposed skin. NEURO: Alert and oriented x 4. Limitations: no limitations Course Vital Signs 10/12/23 10/12/23 10/12/23 07:59 08:00 08:02 Temperature 99.7 F H Pulse Rate 161 H 143 H Respiratory 38 H Rate Blood Pressure 152/92 O2 Sat by Pulse 99 Oximetry Fraction of 100 100 Inspired Oxygen (FIO2) 10/12/23 10/12/23 10/12/23 08:12 08:24 08:29 Temperature Pulse Rate 131 H 133 H Respiratory 28 H 38 H Rate Blood Pressure 115/82 O2 Sat by Pulse 99 Oximetry Fraction of Inspired Oxygen (FIO2) 10/12/23 10/12/23 10/12/23 09:34 11:32 12:09 Temperature Pulse Rate 126 H 110 H 112 H Respiratory 20 20 Rate Blood Pressure 110/57 119/81 O2 Sat by Pulse 96 91 L Oximetry Fraction of Inspired Oxygen (FIO2) 10/12/23 10/12/23 12:10 12:19 Temperature Pulse Rate 112 H Respiratory Rate Blood Pressure O2 Sat by Pulse Oximetry Fraction of 40 Inspired Oxygen (FIO2) Medical Decision Making - Medical Decision Making Was pt. sent in by a medical professional or institution (, PA, PASTER SUPERVISOR, urgent care, hospital, or penitentiary...) When possible be specific @ -No Did you speak to anyone other than the patient for history (EMS, parent, family, police, friend...)? What history was obtained from this source @ -No Did you review nursing and triage notes (agree or disagree)? Why? @ -I reviewed and agree with nursing and triage notes Were old charts reviewed (outside hosp., previous admission, EMS record, old EKG, old radiological studies, urgent care reports/EKG's, penitentiary records)? Report findings @ -Old charts reviewed including previous admissions. Did require BiPAP previously and had previous history of SVT on recent admission from August 2023 Differential Diagnosis (chest pain, altered mental status, abdominal pain women, abdominal pain men, vaginal bleeding, weakness, fever, dyspnea, syncope, headache, dizziness, GI bleed, back pain, seizure, CVA, palpatations, mental health, musculoskeletal)? @ -Differential Dyspnea: Coronary syndrome, arrhythmia, tamponade, asthma, COPD, pulmonary embolism, pneumonia, pneumothorax, pulmonary effusion, anaphylaxis, diabetic ketoacidosis, flailed chest, pulmonary contusion, diaphragmatic rupture, anemia, neuromuscular, this is not meant to be an all-inclusive list. EKG interpreted by me (3pts min.). @ -As above X-rays interpreted by me (1pt min.). @ -Chest x-ray shows concerning early right-sided pneumonia CT interpreted by me (1pt min.). @ -None done U/S interpreted by me (1pt. min.). @ -None done What testing was considered but not performed or refused? (CT, X-rays, U/S, labs)? Why? @ -None What meds were considered but not given or refused? Why? @ -None Did you discuss the management of the patient with other professionals (professionals i.e. , PA, PASTER SUPERVISOR, lab, RT, psych nurse, outreach and education social worker, insurance administrator, teacher, assault amphibious vehicle officer, major case detective)? Give summary @ -Discussed with Dr. Gannon who agreed to evaluate the patient. Discussed with Dr. Dumont of [facility] who agreed to admit the patient as listed provider was Dr. Ennis. However after discussion, found that the patient is a [facility] patient when she gets admitted to [facility]. I spoke with Dr. Alcala who agreed to the admission. Was smoking cessation discussed for >3mins.? @ -No Was critical care preformed (if so, how long)? @ -Yes, 32 minutes Were there social determinants of health that impacted care today? How? (Homelessness, low income, unemployed, alcoholism, drug addiction, transportation, low edu. Level, literacy, decrease access to med. care, care home, rehab)? @ -No Was there de-escalation of care discussed even if they declined (Discuss DNR or withdrawal of care, Hospice)? DNR status @ -No What co-morbidities impacted this encounter? (DM, HTN, Smoking, COPD, CAD, Cancer, CVA, ARF, Chemo, Hep., AIDS, mental health diagnosis, sleep apnea, morbid obesity)? @ -COPD Was patient admitted / discharged? Hospital course, mention meds given and route, prescriptions, significant lab abnormalities, going to OR and other pertinent info. @ -Based on the patient's presentation and physical exam, presents with hypoxic respiratory failure. Was immediately transitioned to BiPAP. Patient has tight lung sounds. Seems to be COPD exacerbation. Patient did improve on BiPAP. She will be given breathing treatment, Solu-Medrol, IV magnesium as well as a liter fluid bolus for insensible losses. Patient in agreement this plan. EKG shows no signs of acute ischemia. Patient is tachycardic but is improving. Labs remarkable for elevated white blood cell count. Patient has elevated pCO2 on VBG at 55 lactic acid slightly elevated 2.7. Viral swabs negative. Chest x- ray concerning for developing right-sided pneumonia. On reevaluation, patient is feeling improved. Heart rate is improved. Remainder the vital signs within acceptable limits on BiPAP. Saturations adequate level with FiO2 adjustments on BiPAP. She will be admitted with breathing treatments, IV steroids, on IV antibiotics. Patient technically does meet for sepsis and is being covered for septic pneumonia with IV Zosyn and azithromycin. Sepsis criteria met at 0841. Blood cultures already sent. Patient will not receive 30 cc/kg fluid bolus as she does have a history of CHF. She will receive a small fluid bolus which she already had will continue to monitor. Patient was in agreement this plan. She is hemodynamically stable at this time. Pulmonology consulted and I spoke with Dr. Gannon who accepted the admission. I spoke with the admitting team, initially Dr. Dumont however it was changed to Dr. Alcala when correction made to patient's PCP which is [facility]. Undiagnosed new problem with uncertain prognosis? @ -No Drug Therapy requiring intensive monitoring for toxicity (Heparin, Nitro, Insulin, Cardizem)? @ -No Were any procedures done? @ -No Diagnosis/symptom? @ -Hypoxic respiratory failure requiring BiPAP secondary to septic pneumonia and COPD exacerbation. Acute, or Chronic, or Acute on Chronic? @ -Acute Uncomplicated (without systemic symptoms) or Complicated (systemic symptoms)? @ -Complicated Side effects of treatment? @ -No Exacerbation, Progression, or Severe Exacerbation? @ -No Poses a threat to life or bodily function? How? (Chest pain, USA, NH, pneumonia, PE, COPD, DKA, ARF, appy, cholecystitis, CVA, Diverticulitis, Homicidal, Suic idal, threat to staff... and all critical care pts) @ -Yes - Lab Data Result diagrams: 10/12/23 08:06 10/12/23 08:06 Lab Results 10/12/23 10/12/23 10/12/23 Range/Units 08:06 08:06 08:06 WBC 15.2 H (3.8-10.6) k/uL RBC 3.36 L (3.80-5.40) m/uL Hgb 10.3 L (11.4-16.0) gm/dL Hct 34.5 (34.0-46.0) % MCV 102.6 H (80.0-100.0) fL MCH 30.5 (25.0-35.0) pg MCHC 29.7 L (31.0-37.0) g/dL RDW 14.3 (11.5-15.5) % Plt Count 348 (150-450) k/uL MPV 8.6 Neutrophils % 65 % Lymphocytes % 18 % Monocytes % 11 % Eosinophils % 2 % Basophils % 1 % Neutrophils # 9.9 H (1.3-7.7) k/uL Lymphocytes # 2.8 (1.0-4.8) k/uL Monocytes # 1.6 H (0-1.0) k/uL Eosinophils # 0.3 (0-0.7) k/uL Basophils # 0.1 (0-0.2) k/uL Manual Slide Review Performed Polychromasia Present Hypochromasia Marked Macrocytosis Slight PT 10.8 (10.0-12.5) sec INR 1.0 (<1.2) APTT 24.8 (22.0-30.0) sec VBG pH (7.31-7.41) VBG pCO2 (37-51) mmHg VBG HCO3 (24-28) mmol/L Sodium 137 (137-145) mmol/L Potassium 4.4 (3.5-5.1) mmol/L Chloride 97 L (98-107) mmol/L Carbon Dioxide 33 H (22-30) mmol/L Anion Gap 7 mmol/L BUN 19 H (7-17) mg/dL Creatinine 0.78 (0.52-1.04) mg/dL Est GFR (CKD-EPI)AfAm >90 (>60 ml/min/1.73 sqM) Est GFR (CKD-EPI)NonAf 82 (>60 ml/min/1.73 sqM) Glucose 192 H (74-99) mg/dL Lactic Ac Sepsis Rflx Plasma Lactic Acid Ruslan (0.7-2.0) mmol/L Calcium 8.9 (8.4-10.2) mg/dL Magnesium 2.5 H (1.6-2.3) mg/dL Total Bilirubin 1.1 (0.2-1.3) mg/dL AST 31 (14-36) U/L ALT 17 (4-34) U/L Alkaline Phosphatase 128 H (38-126) U/L Total Protein 6.6 (6.3-8.2) g/dL Albumin 3.9 (3.5-5.0) g/dL Influenza Type A (PCR) (Not Detectd) Influenza Type B (PCR) (Not Detectd) RSV (PCR) (Not Detectd) SARS-CoV-2 (PCR) (Not Detectd) 10/12/23 10/12/23 10/12/23 Range/Units 08:06 08:06 08:06 WBC (3.8-10.6) k/uL RBC (3.80-5.40) m/uL Hgb (11.4-16.0) gm/dL Hct (34.0-46.0) % MCV (80.0-100.0) fL MCH (25.0-35.0) pg MCHC (31.0-37.0) g/dL RDW (11.5-15.5) % Plt Count (150-450) k/uL MPV Neutrophils % % Lymphocytes % % Monocytes % % Eosinophils % % Basophils % % Neutrophils # (1.3-7.7) k/uL Lymphocytes # (1.0-4.8) k/uL Monocytes # (0-1.0) k/uL Eosinophils # (0-0.7) k/uL Basophils # (0-0.2) k/uL Manual Slide Review Polychromasia Hypochromasia Macrocytosis PT (10.0-12.5) sec INR (<1.2) APTT (22.0-30.0) sec VBG pH 7.37 (7.31-7.41) VBG pCO2 55 H (37-51) mmHg VBG HCO3 31 H (24-28) mmol/L Sodium (137-145) mmol/L Potassium (3.5-5.1) mmol/L Chloride (98-107) mmol/L Carbon Dioxide (22-30) mmol/L Anion Gap mmol/L BUN (7-17) mg/dL Creatinine (0.52-1.04) mg/dL Est GFR (CKD-EPI)AfAm (>60 ml/min/1.73 sqM) Est GFR (CKD-EPI)NonAf (>60 ml/min/1.73 sqM) Glucose (74-99) mg/dL Lactic Ac Sepsis Rflx Plasma Lactic Acid Ruslan 2.7 H* (0.7-2.0) mmol/L Calcium (8.4-10.2) mg/dL Magnesium (1.6-2.3) mg/dL Total Bilirubin (0.2-1.3) mg/dL AST (14-36) U/L ALT (4-34) U/L Alkaline Phosphatase (38-126) U/L Total Protein (6.3-8.2) g/dL Albumin (3.5-5.0) g/dL Influenza Type A (PCR) Not Detected (Not Detectd) Influenza Type B (PCR) Not Detected (Not Detectd) RSV (PCR) Not Detected (Not Detectd) SARS-CoV-2 (PCR) Not Detected (Not Detectd) 10/12/23 Range/Units 08:56 WBC (3.8-10.6) k/uL RBC (3.80-5.40) m/uL Hgb (11.4-16.0) gm/dL Hct (34.0-46.0) % MCV (80.0-100.0) fL MCH (25.0-35.0) pg MCHC (31.0-37.0) g/dL RDW (11.5-15.5) % Plt Count (150-450) k/uL MPV Neutrophils % % Lymphocytes % % Monocytes % % Eosinophils % % Basophils % % Neutrophils # (1.3-7.7) k/uL Lymphocytes # (1.0-4.8) k/uL Monocytes # (0-1.0) k/uL Eosinophils # (0-0.7) k/uL Basophils # (0-0.2) k/uL Manual Slide Review Polychromasia Hypochromasia Macrocytosis PT (10.0-12.5) sec INR (<1.2) APTT (22.0-30.0) sec VBG pH (7.31-7.41) VBG pCO2 (37-51) mmHg VBG HCO3 (24-28) mmol/L Sodium (137-145) mmol/L Potassium (3.5-5.1) mmol/L Chloride (98-107) mmol/L Carbon Dioxide (22-30) mmol/L Anion Gap mmol/L BUN (7-17) mg/dL Creatinine (0.52-1.04) mg/dL Est GFR (CKD-EPI)AfAm (>60 ml/min/1.73 sqM) Est GFR (CKD-EPI)NonAf (>60 ml/min/1.73 sqM) Glucose (74-99) mg/dL Lactic Ac Sepsis Rflx Y Plasma Lactic Acid Ruslan (0.7-2.0) mmol/L Calcium (8.4-10.2) mg/dL Magnesium (1.6-2.3) mg/dL Total Bilirubin (0.2-1.3) mg/dL AST (14-36) U/L ALT (4-34) U/L Alkaline Phosphatase (38-126) U/L Total Protein (6.3-8.2) g/dL Albumin (3.5-5.0) g/dL Influenza Type A (PCR) (Not Detectd) Influenza Type B (PCR) (Not Detectd) RSV (PCR) (Not Detectd) SARS-CoV-2 (PCR) (Not Detectd) - EKG Data -: EKG Interpreted by Me EKG Comments: 12-lead Electrocardiogram Interpretation Note EKG was reviewed and interpreted by myself. 12-lead ECG performed at 0759 is interpreted by me as revealing sinus tachycardia at a rate of 151 beats per minute. Left axis deviation. IN interval is 126 ms, QRS duration is 90 ms, QTc is 386 ms. Good deal of baseline artifact secondary to patient's increased work of breathing. Difficult to interpret EKG.. There were no obvious ST or T wave abnormalities to suggest myocardial ischemia or injury.. Repeat EKG will be obtained with better baseline. 12-lead Electrocardiogram Interpretation Note EKG was reviewed and interpreted by myself. 12-lead ECG performed at 0845 is interpreted by me as revealing sinus tachycardia with premature complexes at a rate of 123 beats per minute. Left axis deviation. IN interval is 108 ms, QRS duration is 109 ms, QTc is 410 ms.. There were no ST or T wave abnormalities to suggest myocardial ischemia or injury. R wave progression across the precordium was satisfactory. By my interpretation this EKG is non-diagnostic for acute ischemia. . Critical Care Time Critical Care Time: Yes Total Critical Care Time: 32 Disposition Clinical Impression: BiPAP (biphasic positive airway pressure) dependence, COPD (chronic obstructive pulmonary disease), Pneumonia, Hypoxic respiratory failure, Sepsis Disposition: ADMITTED IP TO THIS [facility] Condition: Serious Time of Disposition: 09:45
[2023-10-12 10:10] LABS: Polychromasia Present
[2023-10-12] MEDS: AZITHROMYCIN 500 MG in SODIUM CHLORIDE 0.9% 250 ML IVPB STA (10:12)
[2023-10-12] MEDS: IPRATROPIUM-ALBUTEROL 3 ML NEB INHALATION SCH (12:07)
--- NOTE | 2023-10-12 13:50 | P.CNPUL ---
History of Present Illness Consult date: 10/12/23 Requesting physician: Twin [facility]cala Reason for consult: dyspnea, COPD Chief complaint: Shortness of breath, cough, congestion History of present illness: This is a pleasant 63-year-old female with a history of chronic hypoxic respiratory failure maintained on oxygen 5 L/min nasal cannula and the patient has been maintained on prednisone at a dose of 10 mg p.o. daily and DuoNeb updrafts. She is known to have CAD with previous stenting of the RCA and she does have some residual stenosis of the LAD in the order of 40 to 50%. She suffered some severe aortic valve stenosis and she has undergone valvuloplasty, she has hypertension, hyperlipidemia, obesity, chronic back pain, and possibly o bstructive sleep apnea. She has had frequent readmissions to the hospital for acute on chronic hypoxic respiratory episodes/COPD. She was able to qualify for BiPAP at home on her recent discharge of 09/20/2023 but apparently she has not been utilizing it due to inadequate fitting of her mask according to her . Unfortunately, she does not get out to see us in the office. She is mainly in the hospital or at home. She presented here again to the emergency room early this morning with a 3-day history of increasing shortness of breath, cough and congestion. Chest x-ray revealed right medial lung base density reflecting atelectasis versus infiltrate. She is currently on BiPAP / and 100% FiO2. We decrease the FiO2 to 50%. She has been initiated on DuoNeb inhalations, Pulmicort and Perforomist inhalations, Solu-Medrol. Empiric antibiotics in the form of Zosyn and azithromycin. Normal saline at 75 MLS per hour. White count 15.2. Hemoglobin 10.3. Platelets 348. Sodium 137. Potassium 4.4. Bicarb 33. BUN 19. Creatinine 0.78. Glucose 192. Viral screen is negative. Procalcitonin is pending. Review of Systems REVIEW OF SYSTEMS: CONSTITUTIONAL: Denies any recent significant weight loss or weight gain. EYES: Denies change in vision. EARS, NOSE, MOUTH, THROAT: Denies headaches, denies sore throat. CARDIOVASCULAR: Denies chest pain, palpitations or syncopal episodes. RESPIRATORY: Positive for shortness of breath, cough, congestion no hemoptysis. GASTROINTESTINAL: Denies change in appetite, denies abdominal pain GENITOURINARY: Denies hematuria, denies infections. MUSKULOSKELETAL: Denies pain, denies swelling. INTEGUMENTARY: Denies rash, denies eczema. NEUROLOGICAL: Denies recent memory loss, no recent seizure activity. PSYCHIATRIC: Denies anxiety, denies depression. HEMATOLOGIC/LYMPHATIC: Denies anemia, denies enlarged lymph nodes. Past Medical History Past Medical History: Coronary Artery Disease (CAD), Chest Pain / Angina, COPD, Myocardial Infarction ([place]), Respiratory Disorder Additional Past Medical History / Comment(s): Chronic hypercapnic respiratory fa ilure, home oxygen at 5L/NC ATC, tracheobronchitis, severe bicuspid aortic valve stenosis, chronic low back pain, DJD Last Myocardial Infarction Date:: 04/2023 History of Any Multi-Drug Resistant Organisms: None Reported Past Surgical History: Breast Surgery, Heart Catheterization With Stent, Tubal Ligation Additional Past Surgical History / Comment(s): Bilateral breast reductions, bilateral cataract removals. Past Anesthesia/Blood Transfusion Reactions: No Reported Reaction Date of Last Stent Placement:: 04/2023 Past Psychological History: Anxiety, Depression Smoking Status: Former smoker Past Alcohol Use History: None Reported Past Drug Use History: None Reported - Past Family History Father History Unknown: Yes Mother Family Medical History: Congestive Heart Failure (CHF), Diabetes Mellitus Medications and Allergies Home Medications Medication Instructions Recorded Confirmed Type Albuterol Inhaler [Ventolin Hfa 2 puff INHALATION RT-Q4H PRN 04/09/22 10/12/23 History Inhaler] Atorvastatin [Lipitor] 40 mg PO HS 04/09/22 10/12/23 History Aspirin 81 mg PO DAILY 30 Days #30 tab 04/12/22 10/12/23 Rx Budesonide/Formoterol Fumarate 2 puff INHALATION RT-BID 07/13/22 10/12/23 History [Symbicort 160-4.5 Mcg Inhaler] Ipratropium-Albuterol Nebulize 3 ml INHALATION RT-QID PRN 09/23/22 10/12/23 History [Duoneb 0.5 mg-3 mg/3 ml Soln] Dapagliflozin Propanediol [Farxiga] 5 mg PO DAILY 11/19/22 10/12/23 History Yupelri 175mcg/3ml 175 mcg INHALATION RT-DAILY 11/19/22 10/12/23 History predniSONE 5 mg PO DAILY 04/19/23 10/12/23 History Furosemide [Lasix] 40 mg PO BID #60 tab 08/09/23 10/12/23 Rx Potassium Chloride ER [K-Dur 20] 20 meq PO BID #60 tab 08/09/23 10/12/23 Rx Metoprolol Succinate (ER) [Toprol 50 mg PO BID tab 09/20/23 10/12/23 Rx XL] Capsaicin Cream [Trixaicin Cream] 1 applic TOPICAL TID PRN 10/12/23 10/12/23 History LORazepam [Ativan] 0.25 mg PO DAILY PRN 10/12/23 10/12/23 History Sertraline [Zoloft] 150 mg PO DAILY 10/12/23 10/12/23 History busPIRone HCl [Buspar] 5 mg PO BID 10/12/23 10/12/23 History lisinopriL 30 mg PO DAILY 10/12/23 10/12/23 History Allergies Allergy/AdvReac Type Severity Reaction Status Date / Time No Known Allergies Allergy Verified 10/12/23 12:10 Physical Exam Vitals: Vital Signs Temp Pulse Resp BP Pulse Ox FiO2 10/12/23 12:19 112 H 10/12/23 12:10 40 10/12/23 12:09 112 H 10/12/23 11:32 110 H 20 119/81 91 L 10/12/23 09:34 126 H 20 110/57 96 10/12/23 08:29 38 H 10/12/23 08:24 133 H 28 H 115/82 99 10/12/23 08:12 131 H 10/12/23 08:02 100 10/12/23 08:00 99.7 F H 143 H 38 H 152/92 99 10/12/23 07:59 161 H 100 Intake and Output 10/11/23 10/12/23 10/12/23 22:59 06:59 14:59 Other: Weight 90.718 kg GENERAL EXAM: Alert, pleasant 63-year-old female, on BiPAP 03/29 and 50% FiO2, in mild respiratory distress. HEAD: Normocephalic. EYES: Normal reaction of pupils, equal size. NOSE: Clear with pink turbinates. THROAT: No erythema or exudates. NECK: No masses, no JVD. CHEST: No chest wall deformity. LUNGS: Equal air entry with few scattered rhonchi of the right lung, diminished throughout. CVS: S1 and S2 normal with no audible murmur, regular rhythm. ABDOMEN: No hepatosplenomegaly, normal bowel sounds, no guarding or rigidity. SPINE: No scoliosis or deformity SKIN: No rashes CENTRAL NERVOUS SYSTEM: No focal deficits, tone is normal in all 4 extremities. EXTREMITIES: There is no peripheral edema. No clubbing, no cyanosis. Peripheral pulses are intact. Results - Laboratory Findings CBC and BMP: 10/12/23 08:06 10/12/23 08:06 PT/INR, D-dimer PT 10.8 sec (10.0-12.5) 10/12/23 08:06 INR 1.0 (<1.2) 10/12/23 08:06 Abnormal lab findings: Abnormal Labs 10/12/23 10/12/23 10/12/23 08:06 08:06 08:06 WBC 15.2 H RBC 3.36 L Hgb 10.3 L MCV 102.6 H MCHC 29.7 L Neutrophils # 9.9 H Monocytes # 1.6 H VBG pCO2 VBG HCO3 Chloride 97 L Carbon Dioxide 33 H BUN 19 H Glucose 192 H Plasma Lactic Acid Ruslan 2.7 H* Magnesium 2.5 H Alkaline Phosphatase 128 H 10/12/23 08:06 WBC RBC Hgb MCV MCHC Neutrophils # Monocytes # VBG pCO2 55 H VBG HCO3 31 H Chloride Carbon Dioxide BUN Glucose Plasma Lactic Acid Ruslan Magnesium Alkaline Phosphatase Assessment and Plan Assessment: Acute on chronic hypoxic and hypercapnic respiratory failure. Patient was discharged from the hospital on September 20, 2023 after being treated for CHF/COPD exacerbation. At that time she did qualify for BiPAP which was set up for her at home. Apparently according to her she has not been wearing it due to needing her mask adjusted. She is coming in for another hospitalization for the same. Chest x-ray shows some chronic changes in the right lung. Procalcitonin is pending. Advanced COPD, oxygen dependent at 5 L/min nasal cannula is steroid-dependent at 10 mg of prednisone daily basis, the patient is currently on a combination of Spiriva and Symbicort on outpatient basis. Ex-smoker. Coronary artery disease, involving the LAD, with 40 to 50% stenosis, and a patent proximal RCA stent Ischemic cardiomyopathy with an ejection fraction of 25 to 30% Severe aortic stenosis with history of previous aortic valve valvuloplasty. Echocardiogram from September 16, 2023 reveals severe aortic stenosis with a mean gradient of 69 mmHg post valvuloplasty Shingles history, recovered History of hyperlipidemia History of hypertension History of chronic low back pain Obesity Prior history of heavy tobacco use Plan: The patient was seen and evaluated Chest x-ray, labs and medications reviewed reviewed Titrate down the FiO2 as tolerated Currently on BiPAP 12/6 and 50% FiO2 Initiated on DuoNeb inhalations, Pulmicort and Perforomist inhalations Initiated on Solu-Medrol Empiric antibiotics in the form of Zosyn and azithromycin Procalcitonin pending Sputum culture pending Patient and educated regarding the importance of BiPAP compliance The device would be removed from her home if she does not document compliance We will continue to follow and make further recommendations based on her clinical status I have personally seen and examined the patient, performed the documentation and the assessment and plan as written. Number of minutes spent on the visit: 20.
--- NOTE | 2023-10-12 14:59 | P.HPIM ---
History of Present Illness H&P Date: 10/12/23 Patient is a 63-year-old female with history of chronic hypoxic respiratory failure on 5 to 6 L [id number], COPD, severe bicuspid aortic valve stenosis, CAD, ischemic cardiomyopathy with EF 25 to 30%, hypertension, dyslipidemia presenting with worsening shortness of breath. She claims that she was at her usual state of health, started having increased shortness of breath, cough, productive, 2 to 3 days ago. Conversation with her PCP and was told that she has now been able to use her BiPAP. Patient claims that she does not have the nose piece for her BiPAP which is why she does not feel comfortable with the mask and has been noncompliant. She has subjective fevers and chills. Denies any abdominal pain, urinary or bowel complaints. She denies any travel history or sick contacts. In the ED, temperature was 99.7, pulse up to 161, respiratory rate 38, blood pressure 152/92, saturating at 99% on BiPAP. Patient was placed on BiPAP for increased work of breathing. Laboratory analysis showed WBC of 15.2, hemoglobin 10.3, pH 7.37, pCO2 55, bicarb 33, creatinine 0.78, lactate 2.7 down to 1.5, magnesium 2.5, procalcitonin 0.3, respiratory viral panel negative. Chest x-ray independently interpreted, shows diffuse interstitial opacities more prominent at the bases EKG independently interpreted, shows sinus tachycardia with nonspecific ST-T wave changes significant artifact. Patient admitted for acute on chronic hypoxic respiratory failure likely in the setting of COPD advanced and BiPAP noncompliance. Pulmonology also consulted. Pertinent positives and negatives as discussed in HPI, a complete review of systems was performed and all other systems are negative. Patient seen and examined at bedside. Vital signs reviewed General: nontoxic, no distress, appears at stated age Derm: warm, dry Head: atraumatic, normocephalic, symmetric Eyes: EOMI, no lid lag, anicteric sclera, pupils equal round reactive to light ENT: Nose and ears atraumatic Neck: No thyromegaly, supple Mouth: no lip lesion, mucus membranes moist Cardiovascular: S1S2 reg, no murmur, no edema Lungs: clear to auscultation bilateral, no rhonchi, no rales, no wheeze, no accessory muscle use Abdominal: soft, nontender to palpation, no guarding, no appreciable organomegaly Ext: no gross muscle atrophy, muscle strength muscle strength 5 out of 5 in all 4 extremities, no contractures Neuro: CN II-XII grossly intact Psych: Alert, oriented, appropriate affect Assessment/Plan: Active: Acute on chronic hypoxic respiratory failure, likely multifactorial Advanced COPD, in exacerbation Suspected community-acquired pneumonia Severe aortic stenosis, previous valvuloplasty Ischemic cardiomyopathy EF of 25 to 30% CAD status post previous stent -Pulmonology note reviewed, continue DuoNeb 4 times daily, Solu-Medrol 40 IV every 8 hours, Perforomist twice daily, Pulmicort twice daily, continue BiPAP for respiratory support -Sputum cultures, urine Legionella, blood cultures pending -Continue azithromycin 500 mg IV daily, Zosyn 3.375 g IV every 8 hours -Continue to wean off of BiPAP -Discussed management with outpatient PCP as well -Continue aspirin 81 mg, atorvastatin 40 mg, Farxiga 5 mg daily, Lasix 40 twice daily oral, lisinopril 30 mg daily, metoprolol succinate 50 twice daily -Continue on telemetry Chronic: Depression Anxiety The patient is admitted with an anticipated greater than 2 midnight stay as inpatient status for evaluation of hypoxic respiratory failure. Surrogate decision-maker: Spouse CODE STATUS: DNR/DNI DVT prophylaxis: Subcu heparin Anticipated discharge date: Pending clinical course Anticipated discharge place: Pending clinical course A total of 55 minutes was spent on the care of this complex patient more than 50% of the time was spent in counseling and care coordination. Past Medical History Past Medical History: Coronary Artery Disease (CAD), Chest Pain / Angina, COPD, Myocardial Infarction ([place]), Respiratory Disorder Additional Past Medical History / Comment(s): Chronic hypercapnic respiratory failure, home oxygen at 5L/NC ATC, tracheobronchitis, severe bicuspid aortic valve stenosis, chronic low back pain, DJD Last Myocardial Infarction Date:: 04/2023 History of Any Multi-Drug Resistant Organisms: None Reported Past Surgical History: Breast Surgery, Heart Catheterization With Stent, Tubal Ligation Additional Past Surgical History / Comment(s): Bilateral breast reductions, bilateral cataract removals. Past Anesthesia/Blood Transfusion Reactions: No Reported Reaction Date of Last Stent Placement:: 04/2023 Past Psychological History: Anxiety, Depression Smoking Status: Former smoker Past Alcohol Use History: None Reported Past Drug Use History: None Reported - Past Family History Father History Unknown: Yes Mother Family Medical History: Congestive Heart Failure (CHF), Diabetes Mellitus Medications and Allergies Home Medications Medication Instructions Recorded Confirmed Type Albuterol Inhaler [Ventolin Hfa 2 puff INHALATION RT-Q4H PRN 04/09/22 10/12/23 History Inhaler] Atorvastatin [Lipitor] 40 mg PO HS 04/09/22 10/12/23 History Aspirin 81 mg PO DAILY 30 Days #30 tab 04/12/22 10/12/23 Rx Budesonide/Formoterol Fumarate 2 puff INHALATION RT-BID 07/13/22 10/12/23 History [Symbicort 160-4.5 Mcg Inhaler] Ipratropium-Albuterol Nebulize 3 ml INHALATION RT-QID PRN 09/23/22 10/12/23 History [Duoneb 0.5 mg-3 mg/3 ml Soln] Dapagliflozin Propanediol [Farxiga] 5 mg PO DAILY 11/19/22 10/12/23 History Yupelri 175mcg/3ml 175 mcg INHALATION RT-DAILY 11/19/22 10/12/23 History predniSONE 5 mg PO DAILY 04/19/23 10/12/23 History Furosemide [Lasix] 40 mg PO BID #60 tab 08/09/23 10/12/23 Rx Potassium Chloride ER [K-Dur 20] 20 meq PO BID #60 tab 08/09/23 10/12/23 Rx Metoprolol Succinate (ER) [Toprol 50 mg PO BID tab 09/20/23 10/12/23 Rx XL] Capsaicin Cream [Trixaicin Cream] 1 applic TOPICAL TID PRN 10/12/23 10/12/23 History LORazepam [Ativan] 0.25 mg PO DAILY PRN 10/12/23 10/12/23 History Sertraline [Zoloft] 150 mg PO DAILY 10/12/23 10/12/23 History busPIRone HCl [Buspar] 5 mg PO BID 10/12/23 10/12/23 History lisinopriL 30 mg PO DAILY 10/12/23 10/12/23 History Allergies Allergy/AdvReac Type Severity Reaction Status Date / Time No Known Allergies Allergy Verified 10/12/23 12:10 Physical Exam Vitals: Vital Signs Temp Pulse Resp BP Pulse Ox FiO2 10/12/23 13:51 89 L 10/12/23 13:41 52 L 20 108/92 94 L 10/12/23 12:19 112 H 10/12/23 12:10 40 10/12/23 12:09 112 H 10/12/23 11:32 110 H 20 119/81 91 L 10/12/23 09:34 126 H 20 110/57 96 10/12/23 08:29 38 H 10/12/23 08:24 133 H 28 H 115/82 99 10/12/23 08:12 131 H 10/12/23 08:02 100 10/12/23 08:00 99.7 F H 143 H 38 H 152/92 99 10/12/23 07:59 161 H 100 Intake and Output 10/11/23 10/12/23 10/12/23 22:59 06:59 14:59 Other: Weight 90.718 kg Results CBC & Chem 7: 10/12/23 08:06 10/12/23 08:06 Labs: Abnormal Lab Results - Last 24 Hours (Table) 10/12/23 10/12/23 10/12/23 Range/Units 08:06 08:06 08:06 WBC 15.2 H (3.8-10.6) k/uL RBC 3.36 L (3.80-5.40) m/uL Hgb 10.3 L (11.4-16.0) gm/dL MCV 102.6 H (80.0-100.0) fL MCHC 29.7 L (31.0-37.0) g/dL Neutrophils # 9.9 H (1.3-7.7) k/uL Monocytes # 1.6 H (0-1.0) k/uL VBG pCO2 (37-51) mmHg VBG HCO3 (24-28) mmol/L Chloride 97 L (98-107) mmol/L Carbon Dioxide 33 H (22-30) mmol/L BUN 19 H (7-17) mg/dL Glucose 192 H (74-99) mg/dL Plasma Lactic Acid Ruslan 2.7 H* (0.7-2.0) mmol/L Magnesium 2.5 H (1.6-2.3) mg/dL Alkaline Phosphatase 128 H (38-126) U/L Procalcitonin (0.02-0.09) ng/mL 10/12/23 10/12/23 Range/Units 08:06 09:30 WBC (3.8-10.6) k/uL RBC (3.80-5.40) m/uL Hgb (11.4-16.0) gm/dL MCV (80.0-100.0) fL MCHC (31.0-37.0) g/dL Neutrophils # (1.3-7.7) k/uL Monocytes # (0-1.0) k/uL VBG pCO2 55 H (37-51) mmHg VBG HCO3 31 H (24-28) mmol/L Chloride (98-107) mmol/L Carbon Dioxide (22-30) mmol/L BUN (7-17) mg/dL Glucose (74-99) mg/dL Plasma Lactic Acid Ruslan (0.7-2.0) mmol/L Magnesium (1.6-2.3) mg/dL Alkaline Phosphatase (38-126) U/L Procalcitonin 0.30 H (0.02-0.09) ng/mL
[2023-10-12] MEDS: PIPERACILLIN-TAZOBACTAM 3.375 GM in SODIUM CHLORIDE 0.9% 100 ML IVPB SCH (15:59)
[2023-10-12] MEDS: FUROSEMIDE 40 MG TAB PO SCH (16:01)
[2023-10-12] MEDS: HEPARIN SODIUM,PORCINE 5,000 UNIT/ML 1 ML VIAL SQ SCH (16:01)
[2023-10-12] MEDS: methylPREDNISolone SOD SUCCI 40 MG/ML 1 ML VIAL IV SCH (16:04)
[2023-10-12 20:10] LABS: Glucose,Whole Blood 201 mg/dL (70-110)
[2023-10-12] MEDS: FORMOTEROL FUMARATE 20 MCG/2 ML NEBU INHALATION SCH (20:20)
[2023-10-12] MEDS: BUDESONIDE 1 MG/2 ML NEBU INHALATION SCH (20:20)
[2023-10-12] MEDS: KETOROLAC 15 MG/ML 1 ML VIAL IVP PRN (21:19)
[2023-10-12] MEDS: ATORVASTATIN 40 MG TAB PO SCH (21:20)
[2023-10-12] MEDS: busPIRone HCl 5 MG TAB PO SCH (21:20)
[2023-10-12] MEDS: METOPROLOL SUCCINATE (ER) 50 MG TAB.ER.24H PO SCH (21:20)
[2023-10-13] MEDS: INSULIN ASPART (NovoLOG) 100 UNIT/ML VIAL SQ ONE (00:27)
[2023-10-13 00:28] LABS: Glucose,Whole Blood 206 mg/dL (70-110)
[2023-10-13 00:57] LABS: Appearance,Urine Turbid (Clear); Bacteria,Urine Few /hpf; Bilirubin,Urine Negative (Negative); Blood,Urine Negative (Negative); Color,Urine Yellow; Glucose,Urine (UA) 3+ (Negative); Ketones,Urine Negative (Negative); Leukocyte Esterase,Urine Large (Negative); Mucus,Urine Rare /hpf; Nitrite,Urine Negative (Negative); PH, Urine 5.5 (5.0-8.0); Protein,Urine 1+ (Negative); RBC,Urine 28 /hpf (0-5); Specific Gravity,Urine 1.022 (1.001-1.035); Squamous Epithelial Cell,Urine 12 /hpf (0-4); Uric Acid Crystals,Urine Many /hpf; Urobilinogen,Urine <2.0 mg/dL (<2.0); WBC,Urine 7 /hpf (0-5)
[2023-10-13 06:12] LABS: Glucose,Whole Blood 161 mg/dL (70-110)
[2023-10-13] MEDS ORDERED: DEXTROSE 50% SYRINGE 50 ML IVP PRN ×2 (07:15)
[2023-10-13] MEDS: INSULIN ASPART (NovoLOG) 100 UNIT/ML VIAL SQ SCH (07:34)
[2023-10-13] MEDS: ONDANSETRON 4 MG/2 ML VIAL IVP PRN (08:27)
[2023-10-13] MEDS: DAPAGLIFLOZIN PROPANEDIOL 5 MG TABLET PO SCH (08:28)
[2023-10-13] MEDS: lisinopriL 10 MG TAB PO SCH (08:28)
[2023-10-13] MEDS: ASPIRIN 81 MG PO SCH (08:28)
[2023-10-13] MEDS: SERTRALINE 50 MG TAB PO SCH (08:28)
[2023-10-13] MEDS: AZITHROMYCIN 500 MG in SODIUM CHLORIDE 0.9% 250 ML IVPB SCH (08:28)
[2023-10-13 09:38] LABS: Basophils % (A) 0 %; Eosinophils % (A) 0 %; Hypochromasia Marked; Lymphocytes # (A) 0.6 k/uL (1.0-4.8); Lymphocytes % (A) 5 %; MCH 31.6 pg (25.0-35.0); MCHC 31.2 g/dL (31.0-37.0); MCV 101.2 fL (80.0-100.0); Macrocytosis Slight; Mean Platelet Volume 8.2; Monocytes # (A) 0.7 k/uL (0-1.0); Monocytes % (A) 6 %; Neutrophils # (A) 8.9 k/uL (1.3-7.7); Neutrophils % (A) 87 %; Platelet Count 280 k/uL (150-450); RBC 2.57 m/uL (3.80-5.40); RDW 14.3 % (11.5-15.5); WBC 10.3 k/uL (3.8-10.6)
[2023-10-13 10:04] LABS: ALT 16 U/L (4-34); AST 26 U/L (14-36); African American GFR (CKD) 54 (>60 ml/min/1.73 sqM); Albumin 3.1 g/dL (3.5-5.0); Alkaline Phosphatase 102 U/L (38-126); Anion Gap 7 mmol/L; Blood Urea Nitrogen 32 mg/dL (7-17); Calcium 7.9 mg/dL (8.4-10.2); Carbon Dioxide 29 mmol/L (22-30); Chloride 99 mmol/L (98-107); Glucose 136 mg/dL (74-99); Non-African American GFR(CKD) 47 (>60 ml/min/1.73 sqM); Potassium 4.2 mmol/L (3.5-5.1); Sodium 135 mmol/L (137-145); Total Bilirubin 0.5 mg/dL (0.2-1.3); Total Protein 5.7 g/dL (6.3-8.2)
[2023-10-13 10:22] LABS: HGB 8.1 gm/dL (11.4-16.0)
[2023-10-13 11:38] LABS: Glucose,Whole Blood 159 mg/dL (70-110)
--- NOTE | 2023-10-13 12:47 | P.PN ---
Subjective Progress Note Date: 10/13/23 Principal diagnosis: Acute on chronic hypoxic and hypercapnic respiratory failure secondary to COPD exacerbation This is a pleasant 63-year-old female with a history of chronic hypoxic respiratory failure maintained on oxygen 5 L/min nasal cannula and the patient has been maintained on prednisone at a dose of 10 mg p.o. daily and DuoNeb updrafts. She is known to have CAD with previous stenting of the RCA and she does have some residual stenosis of the LAD in the order of 40 to 50%. She suffered some severe aortic valve stenosis and she has undergone valvuloplasty, she has hypertension, hyperlipidemia, obesity, chronic back pain, and possibly obstructive sleep apnea. She has had frequent readmissions to the hospital for acute on chronic hypoxic respiratory episodes/COPD. She was able to qualify for BiPAP at home on her recent discharge of 09/20/2023 but apparently she has not been utilizing it due to inadequate fitting of her mask according to her . Unfortunately, she does not get out to see us in the office. She is mainly in the hospital or at home. She presented here again to the emergency room early this morning with a 3-day history of increasing shortness of breath, cough and congestion. Chest x-ray revealed right medial lung base density ref lecting atelectasis versus infiltrate. She is currently on BiPAP / and 100% FiO2. We decrease the FiO2 to 50%. She has been initiated on DuoNeb inhalations, Pulmicort and Perforomist inhalations, Solu-Medrol. Empiric antibiotics in the form of Zosyn and azithromycin. Normal saline at 75 MLS per hour. White count 15.2. Hemoglobin 10.3. Platelets 348. Sodium 137. Potassium 4.4. Bicarb 33. BUN 19. Creatinine 0.78. Glucose 192. Viral screen is negative. Procalcitonin is pending. Patient was reevaluated today on 10/13/2023, patient is doing well, better today compared to yesterday, however she remains on BiPAP and she will be intermittently transitioned to nasal cannula as tolerated. Patient is on maximal therapy for her COPD, she is also on antibiotics and steroids. Chest x- ray on admission showed increased density right medial lung base, could be atelectasis or could be infiltrate, hence we will continue to monitor that abnormality, procalcitonin level is 0.3, elevated, hence would be concerned about the possibility of pneumonia involving the right lower lobe Objective - Vital Signs Vital signs: Vital Signs Temp 97.9 F 10/13/23 08:00 Pulse 92 10/13/23 11:34 Resp 23 10/13/23 11:29 BP 90/55 10/13/23 11:29 Pulse Ox 92 L 10/13/23 11:29 FiO2 40 10/13/23 11:14 Intake & Output 10/12/23 10/13/23 10/13/23 18:59 06:59 18:59 Intake Total 100 30 240 Balance 100 30 240 Weight 90.718 kg Intake: IV 30 Invasive Line 3 30 Intake, IV Titration 100 Amount Piperacillin-Tazobactam 3 100 .375 gm In Sodium Chloride 0.9% 100 ml @ 200 mls/hr IVPB ONCE STA Rx#:[id number] Oral 240 Other: Voiding Method External Catheter External Catheter External Catheter # Voids 1 1 - Exam GENERAL EXAM: Alert, pleasant 63-year-old female, on BiPAP 12/6 and 50% FiO2 HEAD: Normocephalic. Atraumatic EYES: Normal reaction of pupils, equal size. NOSE: Clear with pink turbinates. THROAT: No erythema or exudates. NECK: No masses, no JVD. CHEST: No chest wall deformity. LUNGS: Scattered rhonchi noted bilaterally with wheezing CVS: S1 and S2 normal with no audible murmur, regular rhythm. ABDOMEN: No hepatosplenomegaly, normal bowel sounds, no guarding or rigidity. SKIN: No rashes CENTRAL NERVOUS SYSTEM: No focal deficits, tone is normal in all 4 extremities. EXTREMITIES: There is no peripheral edema. No clubbing, no cyanosis. Peripheral pulses are intact. - Labs CBC & Chem 7: 10/13/23 09:08 10/13/23 09:08 Labs: Abnormal Lab Results - Last 24 Hours (Table) 10/12/23 10/12/23 10/12/23 Range/Units 09:30 20:08 23:46 RBC (3.80-5.40) m/uL Hgb (11.4-16.0) gm/dL Hct (34.0-46.0) % MCV (80.0-100.0) fL Neutrophils # (1.3-7.7) k/uL Lymphocytes # (1.0-4.8) k/uL Sodium (137-145) mmol/L BUN (7-17) mg/dL Creatinine (0.52-1.04) mg/dL Glucose (74-99) mg/dL POC Glucose (mg/dL) 201 H (70-110) mg/dL Calcium (8.4-10.2) mg/dL Total Protein (6.3-8.2) g/dL Albumin (3.5-5.0) g/dL Procalcitonin 0.30 H (0.02-0.09) ng/mL Urine Appearance Turbid H (Clear) Urine Protein 1+ H (Negative) Urine Glucose (UA) 3+ H (Negative) Ur Leukocyte Esterase Large H (Negative) Urine RBC 28 H (0-5) /hpf Urine WBC 7 H (0-5) /hpf Ur Squamous Epith Cells 12 H (0-4) /hpf Uric Acid Crystals Many H (None) /hpf Urine Bacteria Few H (None) /hpf Urine Mucus Rare H (None) /hpf 10/13/23 10/13/23 10/13/23 Range/Units 00:26 06:11 09:08 RBC 2.57 L (3.80-5.40) m/uL Hgb 8.1 L D (11.4-16.0) gm/dL Hct 26.0 L (34.0-46.0) % MCV 101.2 H (80.0-100.0) fL Neutrophils # 8.9 H (1.3-7.7) k/uL Lymphocytes # 0.6 L (1.0-4.8) k/uL Sodium (137-145) mmol/L BUN (7-17) mg/dL Creatinine (0.52-1.04) mg/dL Glucose (74-99) mg/dL POC Glucose (mg/dL) 206 H 161 H (70-110) mg/dL Calcium (8.4-10.2) mg/dL Total Protein (6.3-8.2) g/dL Albumin (3.5-5.0) g/dL Procalcitonin (0.02-0.09) ng/mL Urine Appearance (Clear) Urine Protein (Negative) Urine Glucose (UA) (Negative) Ur Leukocyte Esterase (Negative) Urine RBC (0-5) /hpf Urine WBC (0-5) /hpf Ur Squamous Epith Cells (0-4) /hpf Uric Acid Crystals (None) /hpf Urine Bacteria (None) /hpf Urine Mucus (None) /hpf 10/13/23 10/13/23 Range/Units 09:08 11:36 RBC (3.80-5.40) m/uL Hgb (11.4-16.0) gm/dL Hct (34.0-46.0) % MCV (80.0-100.0) fL Neutrophils # (1.3-7.7) k/uL Lymphocytes # (1.0-4.8) k/uL Sodium 135 L (137-145) mmol/L BUN 32 H (7-17) mg/dL Creatinine 1.24 H (0.52-1.04) mg/dL Glucose 136 H (74-99) mg/dL POC Glucose (mg/dL) 159 H (70-110) mg/dL Calcium 7.9 L (8.4-10.2) mg/dL Total Protein 5.7 L (6.3-8.2) g/dL Albumin 3.1 L (3.5-5.0) g/dL Procalcitonin (0.02-0.09) ng/mL Urine Appearance (Clear) Urine Protein (Negative) Urine Glucose (UA) (Negative) Ur Leukocyte Esterase (Negative) Urine RBC (0-5) /hpf Urine WBC (0-5) /hpf Ur Squamous Epith Cells (0-4) /hpf Uric Acid Crystals (None) /hpf Urine Bacteria (None) /hpf Urine Mucus (None) /hpf Assessment and Plan Assessment: Impression: Acute on chronic hypoxic and hypercapnic respiratory failure. Secondary to acute exacerbation of COPD and suspects right lower lobe pneumonia, could be community-acquired or could be healthcare acquired pneumonia. Patient is on Zosyn and Zithromax Advanced COPD, oxygen dependent at 5 L/min nasal cannula i Coronary artery disease, involving the LAD, with 40 to 50% stenosis, and a patent proximal RCA stent Ischemic cardiomyopathy with an ejection fraction of 25 to 30% Severe aortic stenosis with history of previous aortic valve valvuloplasty. Echocardiogram from September 16, 2023 reveals severe aortic stenosis with a mean gradient of 69 mmHg post valvuloplasty Shingles history, recovered History of hyperlipidemia History of hypertension History of chronic low back pain Obesity Prior history of heavy tobacco use Recommendations: Continue present supportive care measures Continue BiPAP and intermittently transition to nasal cannula Continue bronchodilators Continue diuretics patient is known to have history of cardiomyopathy and LV dysfunction with ejection fraction of 25 to 30% Continue Solu-Medrol Continue antibiotics patient is on Zithromax and on Zosyn procalcitonin level is elevated chest x-ray remains abnormal specially the right lower lobe opacity is worsening today compared to yesterday. Overall prognosis remains extremely poor and guarded Will continue to follow Time with Patient: Less than 30
--- NOTE | 2023-10-13 13:39 | P.PN ---
Subjective Progress Note Date: 10/13/23 Hospital Course: 63-year-old female with history of chronic hypoxic respiratory failure on 5 to 6 L [id number], COPD, severe bicuspid aortic valve stenosis, CAD, ischemic cardiomyopathy with EF 25 to 30%, hypertension, dyslipidemia presenting with worsening shortness of breath. In the ED, temperature was 99.7, pulse up to 161, respiratory rate 38, blood pressure 152/92, saturating at 99% on BiPAP. Patient was placed on BiPAP for increased work of breathing. Laboratory analysis showed WBC of 15.2, hemoglobin 10.3, pH 7.37, pCO2 55, bicarb 33, creatinine 0.78, lactate 2.7 down to 1.5, magnesium 2.5, procalcitonin 0.3, respiratory viral panel negative. Chest x-ray independently interpreted, shows diffuse interstitial opacities more prominent at the bases EKG independently interpreted, shows sinus tachycardia with nonspecific ST-T wave changes significant artifact. Patient admitted for acute on chronic hypoxic respiratory failure likely in the setting of community-acquired pneumonia, COPD advanced and BiPAP noncompliance. Pulmonology also consulted. Started on IV steroids, IV antibiotics, bronchodilators. Remains on BiPAP. Subjective: Patient seen and examined at bedside. No acute events overnight. Claims that her shortness of breath has improved. Pertinent positives and negatives as discussed above, a complete review of systems was performed and all other systems are negative. Vitals Signs Reviewed. General: nontoxic, no distress, appears at stated age, obese Derm: warm, dry Head: atraumatic, normocephalic, symmetric Eyes: EOMI, no lid lag, anicteric sclera, pupils equal round reactive to light ENT: Nose and ears atraumatic Neck: No thyromegaly, supple Mouth: no lip lesion, mucus membranes moist Cardiovascular: S1S2 reg, no murmur, no edema Lungs: Bilateral rales, no wheeze, no accessory muscle use, on BiPAP Abdominal: soft, nontender to palpation, no guarding, no appreciable organomegaly Ext: no gross muscle atrophy, muscle strength muscle strength 5 out of 5 in all 4 extremities, no contractures Neuro: CN II-XII grossly intact Psych: Alert, oriented, appropriate affect Data Reviewed Today: Pertinent Labs: WBC 10.3, hemoglobin 8.1, sodium 135, creatinine 1.24, blood sugars range between 1 36-1 61 Imaging: Chest x-ray independently interpreted, shows worsening right lower lobe opacity Assessment and Plan: Active: Acute on chronic hypoxic respiratory failure, likely multifactorial Advanced COPD, in exacerbation Community-acquired pneumonia Severe aortic stenosis, previous valvuloplasty Ischemic cardiomyopathy EF of 25 to 30% CAD status post previous stent Acute kidney injury, nonoliguric -Pulmonology note reviewed, continue DuoNeb 4 times daily, Solu-Medrol 40 IV every 8 hours, Perforomist twice daily, Pulmicort twice daily, continue BiPAP for respiratory support intermittent nasal cannula -Sputum cultures, blood cultures pending, urine Legionella negative -Continue azithromycin 500 mg IV daily, Zosyn discontinued, started on IV ceftriaxone 2 g every 24 hours. -Continue to wean off of BiPAP -Discussed management with outpatient PCP as well -Continue aspirin 81 mg, atorvastatin 40 mg, Farxiga 5 mg daily, metoprolol succinate 50 twice daily -Continue on telemetry -Reduce Lasix to 40 daily, lisinopril discontinued -Repeat BMP tomorrow -Renal ultrasound ordered Chronic: Depression Anxiety DVT ppx: Subcu heparin Code status: DNR/DNI Anticipated discharge place: Pending clinical course Anticipated discharge time: Pending clinical course Objective - Vital Signs Vital signs: Vital Signs Temp 97.9 F 10/13/23 08:00 Pulse 92 10/13/23 11:34 Resp 23 10/13/23 11:29 BP 90/55 10/13/23 11:29 Pulse Ox 92 L 10/13/23 11:29 FiO2 40 10/13/23 11:14 Intake & Output 10/12/23 10/13/23 10/13/23 18:59 06:59 18:59 Intake Total 100 30 240 Balance 100 30 240 Weight 90.718 kg Intake: IV 30 Invasive Line 3 30 Intake, IV Titration 100 Amount Piperacillin-Tazobactam 3 100 .375 gm In Sodium Chloride 0.9% 100 ml @ 200 mls/hr IVPB ONCE STA Rx#:[id number] Oral 240 Other: Voiding Method External Catheter External Catheter Bedside Commode # Voids 1 1 - Labs CBC & Chem 7: 10/13/23 09:08 10/13/23 09:08 Labs: Abnormal Lab Results - Last 24 Hours (Table) 10/12/23 10/12/23 10/12/23 Range/Units 09:30 20:08 23:46 RBC (3.80-5.40) m/uL Hgb (11.4-16.0) gm/dL Hct (34.0-46.0) % MCV (80.0-100.0) fL Neutrophils # (1.3-7.7) k/uL Lymphocytes # (1.0-4.8) k/uL Sodium (137-145) mmol/L BUN (7-17) mg/dL Creatinine (0.52-1.04) mg/dL Glucose (74-99) mg/dL POC Glucose (mg/dL) 201 H (70-110) mg/dL Calcium (8.4-10.2) mg/dL Total Protein (6.3-8.2) g/dL Albumin (3.5-5.0) g/dL Procalcitonin 0.30 H (0.02-0.09) ng/mL Urine Appearance Turbid H (Clear) Urine Protein 1+ H (Negative) Urine Glucose (UA) 3+ H (Negative) Ur Leukocyte Esterase Large H (Negative) Urine RBC 28 H (0-5) /hpf Urine WBC 7 H (0-5) /hpf Ur Squamous Epith Cells 12 H (0-4) /hpf Uric Acid Crystals Many H (None) /hpf Urine Bacteria Few H (None) /hpf Urine Mucus Rare H (None) /hpf 10/13/23 10/13/23 10/13/23 Range/Units 00:26 06:11 09:08 RBC 2.57 L (3.80-5.40) m/uL Hgb 8.1 L D (11.4-16.0) gm/dL Hct 26.0 L (34.0-46.0) % MCV 101.2 H (80.0-100.0) fL Neutrophils # 8.9 H (1.3-7.7) k/uL Lymphocytes # 0.6 L (1.0-4.8) k/uL Sodium (137-145) mmol/L BUN (7-17) mg/dL Creatinine (0.52-1.04) mg/dL Glucose (74-99) mg/dL POC Glucose (mg/dL) 206 H 161 H (70-110) mg/dL Calcium (8.4-10.2) mg/dL Total Protein (6.3-8.2) g/dL Albumin (3.5-5.0) g/dL Procalcitonin (0.02-0.09) ng/mL Urine Appearance (Clear) Urine Protein (Negative) Urine Glucose (UA) (Negative) Ur Leukocyte Esterase (Negative) Urine RBC (0-5) /hpf Urine WBC (0-5) /hpf Ur Squamous Epith Cells (0-4) /hpf Uric Acid Crystals (None) /hpf Urine Bacteria (None) /hpf Urine Mucus (None) /hpf 10/13/23 10/13/23 Range/Units 09:08 11:36 RBC (3.80-5.40) m/uL Hgb (11.4-16.0) gm/dL Hct (34.0-46.0) % MCV (80.0-100.0) fL Neutrophils # (1.3-7.7) k/uL Lymphocytes # (1.0-4.8) k/uL Sodium 135 L (137-145) mmol/L BUN 32 H (7-17) mg/dL Creatinine 1.24 H (0.52-1.04) mg/dL Glucose 136 H (74-99) mg/dL POC Glucose (mg/dL) 159 H (70-110) mg/dL Calcium 7.9 L (8.4-10.2) mg/dL Total Protein 5.7 L (6.3-8.2) g/dL Albumin 3.1 L (3.5-5.0) g/dL Procalcitonin (0.02-0.09) ng/mL Urine Appearance (Clear) Urine Protein (Negative) Urine Glucose (UA) (Negative) Ur Leukocyte Esterase (Negative) Urine RBC (0-5) /hpf Urine WBC (0-5) /hpf Ur Squamous Epith Cells (0-4) /hpf Uric Acid Crystals (None) /hpf Urine Bacteria (None) /hpf Urine Mucus (None) /hpf
--- NOTE | 2023-10-13 14:57 | US ---
EXAMINATION TYPE: US kidneys/renal and bladder DATE OF EXAM: 10/13/2023 COMPARISON: NONE CLINICAL INDICATION: Female, 63 years old with history of preeti; preeti EXAM MEASUREMENTS: Right Kidney: 9.5x5.4x5.0 cm Left Kidney: 9.1x5.0x5.6 cm Right Kidney: No hydronephrosis or masses seen Left Kidney: No hydronephrosis or masses seen Bladder: wnl Bilateral Jets seen: No, motion/flash artifact There is no evidence for hydronephrosis at this point in time. No nephrolithiasis is seen. No [place] s are identified. The urinary bladder is anechoic. exam limited by bowel, body habitus, limited pt. mobility IMPRESSION: 1. Renal ultrasound as visualized appears unremarkable. There is
[2023-10-13 16:38] LABS: Glucose,Whole Blood 174 mg/dL (70-110)
--- NOTE | 2023-10-13 19:13 | XR ---
EXAMINATION TYPE: XR chest 1V portable DATE OF EXAM: 10/13/2023 COMPARISON: 10/12/2023 INDICATION: Pneumonia TECHNIQUE: Single frontal view of the chest is obtained. FINDINGS: The heart size is normal. The pulmonary vasculature is normal. Mild right lower lobe infiltrate is present. This appears similar to prior examination. IMPRESSION: 1. Stable right lower lobe infiltrate. Correlate for pneumonia. Continued follow-up is recommended.
[2023-10-13 19:56] LABS: Glucose,Whole Blood 180 mg/dL (70-110)
[2023-10-14 06:13] LABS: Glucose,Whole Blood 153 mg/dL (70-110)
[2023-10-14] MEDS: FUROSEMIDE 40 MG TAB PO SCH (08:17)
[2023-10-14 09:16] LABS: African American GFR (CKD) 39 (>60 ml/min/1.73 sqM); Anion Gap 7 mmol/L; Blood Urea Nitrogen 54 mg/dL (7-17); Calcium 8.3 mg/dL (8.4-10.2); Carbon Dioxide 28 mmol/L (22-30); Chloride 100 mmol/L (98-107); Glucose 139 mg/dL (74-99); Magnesium 2.9 mg/dL (1.6-2.3); Non-African American GFR(CKD) 34 (>60 ml/min/1.73 sqM); Potassium 4.6 mmol/L (3.5-5.1); Sodium 135 mmol/L (137-145)
[2023-10-14 09:25] LABS: Basophils % (A) 0 %; Eosinophils % (A) 0 %; HCT 28.1 % (34.0-46.0); HGB 8.3 gm/dL (11.4-16.0); Hypochromasia Marked; Lymphocytes # (A) 0.6 k/uL (1.0-4.8); Lymphocytes % (A) 4 %; MCH 30.3 pg (25.0-35.0); MCHC 29.7 g/dL (31.0-37.0); MCV 102.2 fL (80.0-100.0); Macrocytosis Slight; Mean Platelet Volume 8.4; Monocytes # (A) 0.8 k/uL (0-1.0); Monocytes % (A) 6 %; Neutrophils # (A) 10.9 k/uL (1.3-7.7); Neutrophils % (A) 88 %; Platelet Count 313 k/uL (150-450); RBC 2.75 m/uL (3.80-5.40); RDW 14.2 % (11.5-15.5); WBC 12.4 k/uL (3.8-10.6)
--- NOTE | 2023-10-14 11:42 | P.PN ---
Subjective Progress Note Date: 10/14/23 Principal diagnosis: Acute on chronic hypoxic and hypercapnic respiratory failure secondary to COPD exacerbation This is a pleasant 63-year-old female with a history of chronic hypoxic respiratory failure maintained on oxygen 5 L/min nasal cannula and the patient has been maintained on prednisone at a dose of 10 mg p.o. daily and DuoNeb updrafts. She is known to have CAD with previous stenting of the RCA and she does have some residual stenosis of the LAD in the order of 40 to 50%. She suffered some severe aortic valve stenosis and she has undergone valvuloplasty, she has hypertension, hyperlipidemia, obesity, chronic back pain, and possibly obstructive sleep apnea. She has had frequent readmissions to the hospital for acute on chronic hypoxic respiratory episodes/COPD. She was able to qualify for BiPAP at home on her recent discharge of 09/20/2023 but apparently she has not been utilizing it due to inadequate fitting of her mask according to her . Unfortunately, she does not get out to see us in the office. She is mainly in the hospital or at home. She presented here again to the emergency room early this morning with a 3-day history of increasing shortness of breath, cough and congestion. Chest x-ray revealed right medial lung base density ref lecting atelectasis versus infiltrate. She is currently on BiPAP 03/29 and 100% FiO2. We decrease the FiO2 to 50%. She has been initiated on DuoNeb inhalations, Pulmicort and Perforomist inhalations, Solu-Medrol. Empiric antibiotics in the form of Zosyn and azithromycin. Normal saline at 75 MLS per hour. White count 15.2. Hemoglobin 10.3. Platelets 348. Sodium 137. Potassium 4.4. Bicarb 33. BUN 19. Creatinine 0.78. Glucose 192. Viral screen is negative. Procalcitonin is pending. Patient was reevaluated today on 10/13/2023, patient is doing well, better today compared to yesterday, however she remains on BiPAP and she will be intermittently transitioned to nasal cannula as tolerated. Patient is on maximal therapy for her COPD, she is also on antibiotics and steroids. Chest x- ray on admission showed increased density right medial lung base, could be atelectasis or could be infiltrate, hence we will continue to monitor that abnormality, procalcitonin level is 0.3, elevated, hence would be concerned about the possibility of pneumonia involving the right lower lobe Patient was evaluated today on 10/14/2023, patient is feeling better today, on 5 L nasal cannula, intermittently on BiPAP, O2 sat is 95% on 5 L. Patient remains on diuretics, slight worsening of her renal profile is noted, and her dose of diuretics has been cut down by admitting physician. WBC count is 12.4 hemoglobin 8.3 basic metabolic profile is normal BUN is 54 creatinine 1.62, Compared to creatinine of 0.78 on admission patient had relatively unremarkable renal ultrasound, no evidence of hydronephrosis or obstructive uropathy Objective - Vital Signs Vital signs: Vital Signs Temp 98.2 F 10/14/23 08:00 Pulse 74 10/14/23 11:35 Resp 18 10/14/23 08:00 BP 101/70 10/14/23 08:00 Pulse Ox 95 10/14/23 08:00 FiO2 40 10/14/23 04:00 Intake & Output 10/13/23 10/14/23 10/14/23 18:59 06:59 18:59 Intake Total 480 540 Balance 480 540 Weight 95.6 kg Intake: Oral 480 540 Other: Voiding Method Bedside Commode Bedside Commode # Voids 1 1 1 # Bowel Movements 1 1 - Exam GENERAL EXAM: Alert, pleasant 63-year-old female, on 5 L nasal cannula HEAD: Normocephalic. Atraumatic EYES: Normal reaction of pupils, equal size. NOSE: Clear with pink turbinates. THROAT: No erythema or exudates. NECK: No masses, no JVD. CHEST: No chest wall deformity. LUNGS: Continues to have scattered rhonchi and wheezing bilaterally CVS: S1 and S2 normal with no audible murmur, regular rhythm. ABDOMEN: No hepatosplenomegaly, normal bowel sounds, no guarding or rigidity. SKIN: No rashes CENTRAL NERVOUS SYSTEM: No focal deficits, tone is normal in all 4 extremities. EXTREMITIES: There is no peripheral edema. No clubbing, no cyanosis. Peripheral pulses are intact. - Labs CBC & Chem 7: 10/14/23 07:16 10/14/23 07:16 Labs: Abnormal Lab Results - Last 24 Hours (Table) 10/13/23 10/13/23 10/14/23 Range/Units 16:35 19:54 06:11 WBC (3.8-10.6) k/uL RBC (3.80-5.40) m/uL Hgb (11.4-16.0) gm/dL Hct (34.0-46.0) % MCV (80.0-100.0) fL MCHC (31.0-37.0) g/dL Neutrophils # (1.3-7.7) k/uL Lymphocytes # (1.0-4.8) k/uL Sodium (137-145) mmol/L BUN (7-17) mg/dL Creatinine (0.52-1.04) mg/dL Glucose (74-99) mg/dL POC Glucose (mg/dL) 174 H 180 H 153 H (70-110) mg/dL Calcium (8.4-10.2) mg/dL Magnesium (1.6-2.3) mg/dL 10/14/23 10/14/23 Range/Units 07:16 07:16 WBC 12.4 H (3.8-10.6) k/uL RBC 2.75 L (3.80-5.40) m/uL Hgb 8.3 L (11.4-16.0) gm/dL Hct 28.1 L (34.0-46.0) % MCV 102.2 H (80.0-100.0) fL MCHC 29.7 L (31.0-37.0) g/dL Neutrophils # 10.9 H (1.3-7.7) k/uL Lymphocytes # 0.6 L (1.0-4.8) k/uL Sodium 135 L (137-145) mmol/L BUN 54 H (7-17) mg/dL Creatinine 1.62 H (0.52-1.04) mg/dL Glucose 139 H (74-99) mg/dL POC Glucose (mg/dL) (70-110) mg/dL Calcium 8.3 L (8.4-10.2) mg/dL Magnesium 2.9 H (1.6-2.3) mg/dL Microbiology - Last 24 Hours (Table) 10/12/23 09:15 Blood Culture - Preliminary Blood 10/12/23 09:15 Blood Culture - Preliminary Blood Assessment and Plan Assessment: Impression: Acute on chronic hypoxic and hypercapnic respiratory failure. Secondary to acute exacerbation of COPD and suspects right lower lobe pneumonia, could be community-acquired or could be healthcare acquired pneumonia. Patient is on Zosyn and Zithromax Advanced COPD, oxygen dependent at 5 L/min nasal cannula i Coronary artery disease, involving the LAD, with 40 to 50% stenosis, and a patent proximal RCA stent Ischemic cardiomyopathy with an ejection fraction of 25 to 30% Severe aortic stenosis with history of previous aortic valve valvuloplasty. Echocardiogram from September 16, 2023 reveals severe aortic stenosis with a mean gradient of 69 mmHg post valvuloplasty Shingles history, recovered History of hyperlipidemia History of hypertension History of chronic low back pain Obesity Prior history of heavy tobacco use Acute kidney injury, could be cardiorenal in nature. Recommendations: Continue present supportive care measures Continue BiPAP and intermittently transition to nasal cannula Continue bronchodilators Continue diuretics, however the dose was cut down because of her renal profile worsening and will need to continue to monitor renal profile. Continue Solu-Medrol Continue antibiotics patient is on Zithromax and on Zosyn procalcitonin level is elevated Overall prognosis remains extremely poor and guarded Will continue to follow Time with Patient: Less than 30
--- NOTE | 2023-10-14 11:47 | P.PN ---
Subjective Progress Note Date: 10/14/23 Hospital Course: 63-year-old female with history of chronic hypoxic respiratory failure on 5 to 6 L [id number], COPD, severe bicuspid aortic valve stenosis, CAD, ischemic cardiomyopathy with EF 25 to 30%, hypertension, dyslipidemia presenting with worsening shortness of breath. In the ED, temperature was 99.7, pulse up to 161, respiratory rate 38, blood pressure 152/92, saturating at 99% on BiPAP. Patient was placed on BiPAP for increased work of breathing. Laboratory analysis showed WBC of 15.2, hemoglobin 10.3, pH 7.37, pCO2 55, bicarb 33, creatinine 0.78, lactate 2.7 down to 1.5, magnesium 2.5, procalcitonin 0.3, respiratory viral panel negative. Chest x-ray independently interpreted, shows diffuse interstitial opacities more prominent at the bases EKG independently interpreted, shows sinus tachycardia with nonspecific ST-T wave changes significant artifact. Patient admitted for acute on chronic hypoxic respiratory failure likely in the setting of community-acquired pneumonia, COPD advanced and BiPAP noncompliance. Pulmonology also consulted. Started on IV steroids, IV antibiotics, bronchodilators. Remains on BiPAP intermittently. Subjective: Patient seen and examined at bedside. No acute events overnight. Claims that her shortness of breath has improved. Making urine Pertinent positives and negatives as discussed above, a complete review of systems was performed and all other systems are negative. Vitals Signs Reviewed. General: nontoxic, no distress, appears at stated age, obese Derm: warm, dry Head: atraumatic, normocephalic, symmetric Eyes: EOMI, no lid lag, anicteric sclera, pupils equal round reactive to light ENT: Nose and ears atraumatic Neck: No thyromegaly, supple Mouth: no lip lesion, mucus membranes moist Cardiovascular: S1S2 reg, no murmur, no edema Lungs: Bilateral rales, no wheeze, no accessory muscle use, on BiPAP Abdominal: soft, nontender to palpation, no guarding, no appreciable organomegaly Ext: no gross muscle atrophy, muscle strength muscle strength 5 out of 5 in all 4 extremities, no contractures Neuro: CN II-XII grossly intact Psych: Alert, oriented, appropriate affect Data Reviewed Today: Pertinent Labs: WBC 12.4, hemoglobin 8.3, sodium 135, creatinine 1.60, magnesium 2.1 Imaging: No new imaging Assessment and Plan: Patient is severely ill, needs close monitoring. Active: Acute on chronic hypoxic respiratory failure, likely multifactorial Advanced COPD, in exacerbation Community-acquired pneumonia Severe aortic stenosis, previous valvuloplasty Ischemic cardiomyopathy EF of 25 to 30% CAD status post previous stent Acute kidney injury, nonoliguric, slightly worsened -Pulmonology note reviewed, continue DuoNeb 4 times daily, Solu-Medrol 40 IV every 8 hours, Perforomist twice daily, Pulmicort twice daily, continue BiPAP for respiratory support intermittent nasal cannula -Cultures negative growth to date -Continue IV ceftriaxone 2 g every 24 hours, status post azithromycin -Continue to wean off of BiPAP -Continue aspirin 81 mg, atorvastatin 40 mg, Farxiga 5 mg daily, metoprolol suc cinate 50 twice daily -Continue on telemetry -Renal function stable worsening as patient received lisinopril yesterday, currently on hold, on reduced dose of Lasix -Repeat BMP tomorrow -Renal ultrasound does not show any acute process Chronic: Depression Anxiety DVT ppx: Subcu heparin Code status: DNR/DNI Anticipated discharge place: Pending clinical course Anticipated discharge time: Pending clinical course Objective - Vital Signs Vital signs: Vital Signs Temp 98.2 F 10/14/23 08:00 Pulse 75 10/14/23 11:44 Resp 18 10/14/23 08:00 BP 101/70 10/14/23 08:00 Pulse Ox 95 10/14/23 08:00 FiO2 40 10/14/23 04:00 Intake & Output 10/13/23 10/14/23 10/14/23 18:59 06:59 18:59 Intake Total 480 540 Balance 480 540 Weight 95.6 kg Intake: Oral 480 540 Other: Voiding Method Bedside Commode Bedside Commode # Voids 1 1 1 # Bowel Movements 1 1 - Labs CBC & Chem 7: 10/14/23 07:16 10/14/23 07:16 Labs: Abnormal Lab Results - Last 24 Hours (Table) 10/13/23 10/13/23 10/14/23 Range/Units 16:35 19:54 06:11 WBC (3.8-10.6) k/uL RBC (3.80-5.40) m/uL Hgb (11.4-16.0) gm/dL Hct (34.0-46.0) % MCV (80.0-100.0) fL MCHC (31.0-37.0) g/dL Neutrophils # (1.3-7.7) k/uL Lymphocytes # (1.0-4.8) k/uL Sodium (137-145) mmol/L BUN (7-17) mg/dL Creatinine (0.52-1.04) mg/dL Glucose (74-99) mg/dL POC Glucose (mg/dL) 174 H 180 H 153 H (70-110) mg/dL Calcium (8.4-10.2) mg/dL Magnesium (1.6-2.3) mg/dL 10/14/23 10/14/23 Range/Units 07:16 07:16 WBC 12.4 H (3.8-10.6) k/uL RBC 2.75 L (3.80-5.40) m/uL Hgb 8.3 L (11.4-16.0) gm/dL Hct 28.1 L (34.0-46.0) % MCV 102.2 H (80.0-100.0) fL MCHC 29.7 L (31.0-37.0) g/dL Neutrophils # 10.9 H (1.3-7.7) k/uL Lymphocytes # 0.6 L (1.0-4.8) k/uL Sodium 135 L (137-145) mmol/L BUN 54 H (7-17) mg/dL Creatinine 1.62 H (0.52-1.04) mg/dL Glucose 139 H (74-99) mg/dL POC Glucose (mg/dL) (70-110) mg/dL Calcium 8.3 L (8.4-10.2) mg/dL Magnesium 2.9 H (1.6-2.3) mg/dL Microbiology - Last 24 Hours (Table) 10/12/23 09:15 Blood Culture - Preliminary Blood 10/12/23 09:15 Blood Culture - Preliminary Blood
[2023-10-14 11:52] LABS: Glucose,Whole Blood 134 mg/dL (70-110)
[2023-10-14 16:32] LABS: Glucose,Whole Blood 186 mg/dL (70-110)
[2023-10-14 19:55] LABS: Glucose,Whole Blood 154 mg/dL (70-110)
[2023-10-14] MEDS: BENZONATATE 100 MG CAP PO PRN (20:14)
[2023-10-15 06:03] LABS: Glucose,Whole Blood 160 mg/dL (70-110)
[2023-10-15 07:16] LABS: Basophils % (A) 0 %; Eosinophils % (A) 0 %; HCT 26.9 % (34.0-46.0); HGB 7.9 gm/dL (11.4-16.0); Hypochromasia Marked; Lymphocytes # (A) 0.7 k/uL (1.0-4.8); Lymphocytes % (A) 5 %; MCH 29.8 pg (25.0-35.0); MCHC 29.4 g/dL (31.0-37.0); MCV 101.2 fL (80.0-100.0); Macrocytosis Slight; Mean Platelet Volume 8.1; Monocytes # (A) 0.7 k/uL (0-1.0); Monocytes % (A) 6 %; Neutrophils # (A) 11.5 k/uL (1.3-7.7); Neutrophils % (A) 87 %; Platelet Count 338 k/uL (150-450); RBC 2.66 m/uL (3.80-5.40); RDW 14.3 % (11.5-15.5); WBC 13.1 k/uL (3.8-10.6)
[2023-10-15 07:17] LABS: African American GFR (CKD) 47 (>60 ml/min/1.73 sqM); Anion Gap 0 mmol/L; Blood Urea Nitrogen 55 mg/dL (7-17); Calcium 8.5 mg/dL (8.4-10.2); Carbon Dioxide 32 mmol/L (22-30); Chloride 104 mmol/L (98-107); Glucose 130 mg/dL (74-99); Non-African American GFR(CKD) 41 (>60 ml/min/1.73 sqM); Potassium 4.8 mmol/L (3.5-5.1); Sodium 136 mmol/L (137-145)
--- NOTE | 2023-10-15 10:53 | P.PN ---
Subjective Progress Note Date: 10/15/23 Hospital Course: 63-year-old female with history of chronic hypoxic respiratory failure on 5 to 6 L [id number], COPD, severe bicuspid aortic valve stenosis, CAD, ischemic cardiomyopathy with EF 25 to 30%, hypertension, dyslipidemia presenting with worsening shortness of breath. In the ED, temperature was 99.7, pulse up to 161, respiratory rate 38, blood pressure 152/92, saturating at 99% on BiPAP. Patient was placed on BiPAP for increased work of breathing. Laboratory analysis showed WBC of 15.2, hemoglobin 10.3, pH 7.37, pCO2 55, bicarb 33, creatinine 0.78, lactate 2.7 down to 1.5, magnesium 2.5, procalcitonin 0.3, respiratory viral panel negative. Chest x-ray independently interpreted, shows diffuse interstitial opacities more prominent at the bases EKG independently interpreted, shows sinus tachycardia with nonspecific ST-T wave changes significant artifact. Patient admitted for acute on chronic hypoxic respiratory failure likely in the setting of community-acquired pneumonia, COPD advanced and BiPAP noncompliance. Pulmonology also consulted. Started on IV steroids, IV antibiotics, bronchodilators. Remains on BiPAP. Patient's renal function slightly worsening, now stable. Subjective: Patient seen and examined at bedside. No acute events overnight. Claims that her shortness of breath has improved. Making urine Pertinent positives and negatives as discussed above, a complete review of systems was performed and all other systems are negative. Vitals Signs Reviewed. General: nontoxic, no distress, appears at stated age, obese Derm: warm, dry Head: atraumatic, normocephalic, symmetric Eyes: EOMI, no lid lag, anicteric sclera, pupils equal round reactive to light ENT: Nose and ears atraumatic Neck: No thyromegaly, supple Mouth: no lip lesion, mucus membranes moist Cardiovascular: S1S2 reg, no murmur, no edema Lungs: Bilateral rales, no wheeze, no accessory muscle use, on BiPAP Abdominal: soft, nontender to palpation, no guarding, no appreciable organomegaly Ext: no gross muscle atrophy, muscle strength muscle strength 5 out of 5 in all 4 extremities, no contractures Neuro: CN II-XII grossly intact Psych: Alert, oriented, appropriate affect Data Reviewed Today: Pertinent Labs: WBC 13.1, hemoglobin 7.9, sodium 136, bicarb 32, creatinine 1.39, blood sugars range between 1 30-1 86, magnesium 3 Imaging: No new imaging Assessment and Plan: Active: Acute on chronic hypoxic respiratory failure, likely multifactorial Advanced COPD, in exacerbation Community-acquired pneumonia Severe aortic stenosis, previous valvuloplasty Ischemic cardiomyopathy EF of 25 to 30% CAD status post previous stent Acute kidney injury, nonoliguric, improving -Pulmonology following, continue DuoNeb 4 times daily, Solu-Medrol 40 IV every 8 hours, Perforomist twice daily, Pulmicort twice daily, continue BiPAP for respiratory support intermittent nasal cannula -Cultures negative growth to date -Continue IV ceftriaxone 2 g every 24 hours, status post azithromycin -Continue to wean off of BiPAP, patient w has BiPAP at home -Continue aspirin 81 mg, atorvastatin 40 mg, Farxiga 5 mg daily, metoprolol succinate 50 twice daily -Continue to hold lisinopril, continue Lasix 40 mg daily Chronic: Depression Anxiety DVT ppx: Subcu heparin Code status: DNR/DNI Anticipated discharge place: Pending clinical course Anticipated discharge time: Pending clinical course Objective - Vital Signs Vital signs: Vital Signs Temp 97.9 F 10/14/23 20:00 Pulse 72 10/15/23 09:15 Resp 18 10/15/23 07:20 BP 104/65 10/15/23 07:20 Pulse Ox 96 10/15/23 09:08 FiO2 40 10/15/23 09:08 Intake & Output 10/14/23 10/15/23 10/15/23 18:59 06:59 18:59 Intake Total 120 Balance 120 Intake: Oral 120 Other: Voiding Method Bedside Commode # Voids 2 1 # Bowel Movements 1 1 - Labs CBC & Chem 7: 10/15/23 06:33 10/15/23 06:33 Labs: Abnormal Lab Results - Last 24 Hours (Table) 10/14/23 10/14/23 10/14/23 Range/Units 11:47 16:29 19:52 WBC (3.8-10.6) k/uL RBC (3.80-5.40) m/uL Hgb (11.4-16.0) gm/dL Hct (34.0-46.0) % MCV (80.0-100.0) fL MCHC (31.0-37.0) g/dL Neutrophils # (1.3-7.7) k/uL Lymphocytes # (1.0-4.8) k/uL Sodium (137-145) mmol/L Carbon Dioxide (22-30) mmol/L BUN (7-17) mg/dL Creatinine (0.52-1.04) mg/dL Glucose (74-99) mg/dL POC Glucose (mg/dL) 134 H 186 H 154 H (70-110) mg/dL Magnesium (1.6-2.3) mg/dL 10/15/23 10/15/23 10/15/23 Range/Units 06:00 06:33 06:33 WBC 13.1 H (3.8-10.6) k/uL RBC 2.66 L (3.80-5.40) m/uL Hgb 7.9 L (11.4-16.0) gm/dL Hct 26.9 L (34.0-46.0) % MCV 101.2 H (80.0-100.0) fL MCHC 29.4 L (31.0-37.0) g/dL Neutrophils # 11.5 H (1.3-7.7) k/uL Lymphocytes # 0.7 L (1.0-4.8) k/uL Sodium 136 L (137-145) mmol/L Carbon Dioxide 32 H (22-30) mmol/L BUN 55 H (7-17) mg/dL Creatinine 1.39 H (0.52-1.04) mg/dL Glucose 130 H (74-99) mg/dL POC Glucose (mg/dL) 160 H (70-110) mg/dL Magnesium 3.0 H (1.6-2.3) mg/dL Microbiology - Last 24 Hours (Table) 10/12/23 09:15 Blood Culture - Preliminary Blood 10/12/23 09:15 Blood Culture - Preliminary Blood
--- NOTE | 2023-10-15 11:40 | P.PN ---
Subjective Progress Note Date: 10/15/23 Principal diagnosis: Acute on chronic hypoxic and hypercapnic respiratory failure secondary to COPD exacerbation This is a pleasant 63-year-old female with a history of chronic hypoxic respiratory failure maintained on oxygen 5 L/min nasal cannula and the patient has been maintained on prednisone at a dose of 10 mg p.o. daily and DuoNeb updrafts. She is known to have CAD with previous stenting of the RCA and she does have some residual stenosis of the LAD in the order of 40 to 50%. She suffered some severe aortic valve stenosis and she has undergone valvuloplasty, she has hypertension, hyperlipidemia, obesity, chronic back pain, and possibly obstructive sleep apnea. She has had frequent readmissions to the hospital for acute on chronic hypoxic respiratory episodes/COPD. She was able to qualify for BiPAP at home on her recent discharge of 09/20/2023 but apparently she has not been utilizing it due to inadequate fitting of her mask according to her . Unfortunately, she does not get out to see us in the office. She is mainly in the hospital or at home. She presented here again to the emergency room early this morning with a 3-day history of increasing shortness of breath, cough and congestion. Chest x-ray revealed right medial lung base density ref lecting atelectasis versus infiltrate. She is currently on BiPAP 03/29 and 100% FiO2. We decrease the FiO2 to 50%. She has been initiated on DuoNeb inhalations, Pulmicort and Perforomist inhalations, Solu-Medrol. Empiric antibiotics in the form of Zosyn and azithromycin. Normal saline at 75 MLS per hour. White count 15.2. Hemoglobin 10.3. Platelets 348. Sodium 137. Potassium 4.4. Bicarb 33. BUN 19. Creatinine 0.78. Glucose 192. Viral screen is negative. Procalcitonin is pending. Patient was reevaluated today on 10/13/2023, patient is doing well, better today compared to yesterday, however she remains on BiPAP and she will be intermittently transitioned to nasal cannula as tolerated. Patient is on maximal therapy for her COPD, she is also on antibiotics and steroids. Chest x- ray on admission showed increased density right medial lung base, could be atelectasis or could be infiltrate, hence we will continue to monitor that abnormality, procalcitonin level is 0.3, elevated, hence would be concerned about the possibility of pneumonia involving the right lower lobe Patient was evaluated today on 10/14/2023, patient is feeling better today, on 5 L nasal cannula, intermittently on BiPAP, O2 sat is 95% on 5 L. Patient remains on diuretics, slight worsening of her renal profile is noted, and her dose of diuretics has been cut down by admitting physician. WBC count is 12.4 hemoglobin 8.3 basic metabolic profile is normal BUN is 54 creatinine 1.62, Compared to creatinine of 0.78 on admission patient had relatively unremarkable renal ultrasound, no evidence of hydronephrosis or obstructive uropathy Patient was evaluated today on 10/15/2023, remains on relatively high flow oxygen, 5 L/min, intermittently on BiPAP with FiO2 of 40%. Patient is doing well at present, relatively asymptomatic, but she is on BiPAP. Yue on bronchodilators, steroids, and diuretics. Her diuretics have been decreased because of her renal functioning. WBC count is 13.1 hemoglobin is 7.9 basic metabolic profile is normal BUN is 55 creatinine 1.39 Objective - Vital Signs Vital signs: Vital Signs Temp 97.9 F 10/14/23 20:00 Pulse 72 10/15/23 09:15 Resp 18 10/15/23 07:20 BP 104/65 10/15/23 07:20 Pulse Ox 96 10/15/23 09:08 FiO2 40 10/15/23 09:08 Intake & Output 10/14/23 10/15/23 10/15/23 18:59 06:59 18:59 Intake Total 120 Balance 120 Intake: Oral 120 Other: Voiding Method Bedside Commode # Voids 2 1 # Bowel Movements 1 1 - Exam GENERAL EXAM: Alert, pleasant 63-year-old female, on BiPAP at present HEAD: Normocephalic. Atraumatic EYES: Normal reaction of pupils, equal size. NOSE: Clear with pink turbinates. THROAT: No erythema or exudates. NECK: No masses, no JVD. CHEST: No chest wall deformity. LUNGS: Fine crackles at the bases no rhonchi no wheezes CVS: S1 and S2 normal with no audible murmur, regular rhythm. ABDOMEN: No hepatosplenomegaly, normal bowel sounds, no guarding or rigidity. SKIN: No rashes CENTRAL NERVOUS SYSTEM: No focal deficits, tone is normal in all 4 extremities. EXTREMITIES: There is no peripheral edema. No clubbing, no cyanosis. Peripheral pulses are intact. - Labs CBC & Chem 7: 10/15/23 06:33 10/15/23 06:33 Labs: Abnormal Lab Results - Last 24 Hours (Table) 10/14/23 10/14/23 10/14/23 Range/Units 11:47 16:29 19:52 WBC (3.8-10.6) k/uL RBC (3.80-5.40) m/uL Hgb (11.4-16.0) gm/dL Hct (34.0-46.0) % MCV (80.0-100.0) fL MCHC (31.0-37.0) g/dL Neutrophils # (1.3-7.7) k/uL Lymphocytes # (1.0-4.8) k/uL Sodium (137-145) mmol/L Carbon Dioxide (22-30) mmol/L BUN (7-17) mg/dL Creatinine (0.52-1.04) mg/dL Glucose (74-99) mg/dL POC Glucose (mg/dL) 134 H 186 H 154 H (70-110) mg/dL Magnesium (1.6-2.3) mg/dL 10/15/23 10/15/23 10/15/23 Range/Units 06:00 06:33 06:33 WBC 13.1 H (3.8-10.6) k/uL RBC 2.66 L (3.80-5.40) m/uL Hgb 7.9 L (11.4-16.0) gm/dL Hct 26.9 L (34.0-46.0) % MCV 101.2 H (80.0-100.0) fL MCHC 29.4 L (31.0-37.0) g/dL Neutrophils # 11.5 H (1.3-7.7) k/uL Lymphocytes # 0.7 L (1.0-4.8) k/uL Sodium 136 L (137-145) mmol/L Carbon Dioxide 32 H (22-30) mmol/L BUN 55 H (7-17) mg/dL Creatinine 1.39 H (0.52-1.04) mg/dL Glucose 130 H (74-99) mg/dL POC Glucose (mg/dL) 160 H (70-110) mg/dL Magnesium 3.0 H (1.6-2.3) mg/dL Microbiology - Last 24 Hours (Table) 10/12/23 09:15 Blood Culture - Preliminary Blood 10/12/23 09:15 Blood Culture - Preliminary Blood Assessment and Plan Assessment: Impression: Acute on chronic hypoxic and hypercapnic respiratory failure. Secondary to acute exacerbation of COPD and suspects right lower lobe pneumonia, could be community-acquired or could be healthcare acquired pneumonia. Patient is on Zosyn and Zithromax Advanced COPD, oxygen dependent at 5 L/min nasal cannula i Coronary artery disease, involving the LAD, with 40 to 50% stenosis, and a patent proximal RCA stent Ischemic cardiomyopathy with an ejection fraction of 25 to 30% Severe aortic stenosis with history of previous aortic valve valvuloplasty. Echocardiogram from September 16, 2023 reveals severe aortic stenosis with a mean gradient of 69 mmHg post valvuloplasty Shingles history, recovered History of hyperlipidemia History of hypertension History of chronic low back pain Obesity Prior history of heavy tobacco use Acute kidney injury, could be cardiorenal in nature. Recommendations: Continue present supportive care measures Please BiPAP intermittently and as needed Continue bronchodilators Continue diuretics, Lasix is down to 40 mg daily, needs follow-up chest x-ray and close monitoring of electrolytes Continue Solu-Medrol Continue antibiotics patient is on Zithromax and on Zosyn procalcitonin level is elevated procalcitonin was 0.3 Overall prognosis remains extremely poor and guarded Will continue to follow Time with Patient: Less than 30
[2023-10-15] MEDS: BENZOCAINE/MENTHOL LOZENG 1 EACH LOZENGE MUCOUS MEM PRN (11:42)
[2023-10-15 11:44] LABS: Glucose,Whole Blood 134 mg/dL (70-110)
[2023-10-15 16:50] LABS: Glucose,Whole Blood 120 mg/dL (70-110)
[2023-10-15] MEDS: ACETAMINOPHEN TAB 325 MG TAB PO PRN (18:08)
[2023-10-15 20:04] LABS: Glucose,Whole Blood 194 mg/dL (70-110)
[2023-10-16 00:29] VITALS: TEMP 97.7
[2023-10-16 06:07] LABS: Glucose,Whole Blood 195 mg/dL (70-110)
--- NOTE | 2023-10-16 07:39 | XR ---
EXAMINATION TYPE: XR chest 1V portable DATE OF EXAM: 10/16/2023 HISTORY: Shortness of breath. COMPARISON: 10/13/2023 TECHNIQUE: Single view of the chest is submitted. FINDINGS: Demonstrated are scattered senescent parenchymal change. Continued patchy density right lower lobe pulmonary venous congestion and interstitial edema. The heart is stable. Hilar and mediastinal structures are within normal limits. Degenerative changes are seen of the dorsal spine. IMPRESSION: 1. Correlate for interstitial edema.
[2023-10-16 09:41] LABS: African American GFR (CKD) 82 (>60 ml/min/1.73 sqM); Anion Gap 1 mmol/L; Blood Urea Nitrogen 41 mg/dL (7-17); Calcium 9.2 mg/dL (8.4-10.2); Carbon Dioxide 36 mmol/L (22-30); Chloride 104 mmol/L (98-107); Glucose 111 mg/dL (74-99); Non-African American GFR(CKD) 71 (>60 ml/min/1.73 sqM); Potassium 4.7 mmol/L (3.5-5.1); Sodium 141 mmol/L (137-145)
[2023-10-16 09:49] LABS: Basophils # (A) 0.2 k/uL (0-0.2); Basophils % (A) 1 %; Eosinophils % (A) 0 %; HCT 27.7 % (34.0-46.0); HGB 8.2 gm/dL (11.4-16.0); Hypochromasia Moderate; Lymphocytes # (A) 0.8 k/uL (1.0-4.8); Lymphocytes % (A) 6 %; MCH 29.6 pg (25.0-35.0); MCHC 29.5 g/dL (31.0-37.0); MCV 100.2 fL (80.0-100.0); Macrocytosis Slight; Monocytes # (A) 1.2 k/uL (0-1.0); Monocytes % (A) 8 %; Neutrophils # (A) 11.5 k/uL (1.3-7.7); Neutrophils % (A) 83 %; Platelet Count 374 k/uL (150-450); RBC 2.77 m/uL (3.80-5.40); RDW 14.3 % (11.5-15.5); WBC 13.9 k/uL (3.8-10.6)
[2023-10-16 11:03] VITALS: RESP 16
[2023-10-16 11:46] LABS: Glucose,Whole Blood 124 mg/dL (70-110)
[2023-10-16 12:44] VITALS: BP 115/73; PULSE 87
--- NOTE | 2023-10-16 13:01 | P.DS ---
Providers Date of admission: 10/12/23 09:46 Expected date of discharge: 10/16/23 Attending physician: Twin Alcala MD Consults: 10/12/23 09:03 Consult Physician Urgent Consulting Provider: Tim Gannon Consult Reason/Comments: copd, pneumonia, bipap Do you want consulting provider notified?: Already Contacted Primary care physician: Jeremy Ennis Hospital Course: Discharge Diagnosis: Acute on chronic hypoxic respiratory failure, likely multifactorial Advanced COPD, in exacerbation Community-acquired pneumonia Severe aortic stenosis, previous valvuloplasty Ischemic cardiomyopathy EF of 25 to 30% CAD status post previous stent Acute kidney injury, nonoliguric Depression Anxiety Hospital Course: 63-year-old female with history of chronic hypoxic respiratory failure on 5 to 6 L [id number], COPD, severe bicuspid aortic valve stenosis, CAD, ischemic cardiomyopathy with EF 25 to 30%, hypertension, dyslipidemia presenting with worsening shortness of breath. In the ED, temperature was 99.7, pulse up to 161, respiratory rate 38, blood pressure 152/92, saturating at 99% on BiPAP. Patient was placed on BiPAP for increased work of breathing. Laboratory analysis showed WBC of 15.2, hemoglobin 10.3, pH 7.37, pCO2 55, bicarb 33, creatinine 0.78, lactate 2.7 down to 1.5, magnesium 2.5, procalcitonin 0.3, respiratory viral panel negative. Chest x-ray independently interpreted, shows diffuse interstitial opacities more prominent at the bases EKG independently interpreted, shows sinus tachycardia with nonspecific ST-T wave changes significant artifact. Patient admitted for acute on chronic hypoxic respiratory failure likely in the setting of community-acquired pneumonia, COPD advanced and BiPAP noncompliance. Pulmonology also consulted. Started on IV steroids, IV antibiotics, bronchodilators. Remains on BiPAP. Respiratory function now stable. Renal function did worsen, now improved at the time of discharge. Plan communicated with her PCP. Patient need to be compliant with her BiPAP at home. Patient seen and examined at bedside. Vital signs reviewed and stable. General: nontoxic, no distress, appears at stated age, obese Derm: warm, dry Head: atraumatic, normocephalic, symmetric Eyes: EOMI, no lid lag, anicteric sclera, pupils equal round reactive to light ENT: Nose and ears atraumatic Neck: No thyromegaly, supple Mouth: no lip lesion, mucus membranes moist Cardiovascular: S1S2 reg, no murmur, no edema Lungs: Bilateral rales, no wheeze, no accessory muscle use, on BiPAP Abdominal: soft, nontender to palpation, no guarding, no appreciable organomegaly Ext: no gross muscle atrophy, muscle strength muscle strength 5 out of 5 in all 4 extremities, no contractures Neuro: CN II-XII grossly intact Psych: Alert, oriented, appropriate affect A total of 33 minutes of time were spent preparing this complex discharge summary. Patient was discharged on 10/16/2023 at 1258. Patient Condition at Discharge: Stable Plan - Discharge Summary Discharge Rx Participant: No New Discharge Prescriptions: New Furosemide [Lasix] 40 mg PO DAILY tab Cefdinir 300 mg PO Q12HR #2 cap Continue Albuterol Inhaler [Ventolin Hfa Inhaler] 2 puff INHALATION RT-Q4H PRN PRN Reason: Shortness Of Breath Aspirin 81 mg PO DAILY 30 Days #30 tab Yupelri 175mcg/3ml 175 mcg INHALATION RT-DAILY Potassium Chloride ER [K-Dur 20] 20 meq PO BID #60 tab Sertraline [Zoloft] 150 mg PO DAILY Capsaicin Cream [Trixaicin Cream] 1 applic TOPICAL TID PRN PRN Reason: Pain Atorvastatin [Lipitor] 40 mg PO HS Budesonide/Formoterol Fumarate [Symbicort 160-4.5 Mcg Inhaler] 2 puff INHALATION RT-BID Ipratropium-Albuterol Nebulize [Duoneb 0.5 mg-3 mg/3 ml Soln] 3 ml INHALATION RT-QID PRN PRN Reason: Shortness Of Breath Dapagliflozin Propanediol [Farxiga] 5 mg PO DAILY Metoprolol Succinate (ER) [Toprol XL] 50 mg PO BID tab busPIRone HCl [Buspar] 5 mg PO BID LORazepam [Ativan] 0.25 mg PO DAILY PRN PRN Reason: Anxiety predniSONE 5 mg PO DAILY #0 Discontinued Furosemide [Lasix] 40 mg PO BID #60 tab lisinopriL 30 mg PO DAILY Discharge Medication List Albuterol Inhaler [Ventolin Hfa Inhaler] 2 puff INHALATION RT-Q4H PRN 04/09/22 [History] Atorvastatin [Lipitor] 40 mg PO HS 04/09/22 [History] Aspirin 81 mg PO DAILY 30 Days #30 tab 04/12/22 [Rx] Budesonide/Formoterol Fumarate [Symbicort 160-4.5 Mcg Inhaler] 2 puff INHALATION RT-BID 07/13/22 [History] Ipratropium-Albuterol Nebulize [Duoneb 0.5 mg-3 mg/3 ml Soln] 3 ml INHALATION RT-QID PRN 09/23/22 [History] Dapagliflozin Propanediol [Farxiga] 5 mg PO DAILY 11/19/22 [History] Yupelri 175mcg/3ml 175 mcg INHALATION RT-DAILY 11/19/22 [History] Potassium Chloride ER [K-Dur 20] 20 meq PO BID #60 tab 08/09/23 [Rx] Metoprolol Succinate (ER) [Toprol XL] 50 mg PO BID tab 09/20/23 [Rx] Capsaicin Cream [Trixaicin Cream] 1 applic TOPICAL TID PRN 10/12/23 [History] LORazepam [Ativan] 0.25 mg PO DAILY PRN 10/12/23 [History] Sertraline [Zoloft] 150 mg PO DAILY 10/12/23 [History] busPIRone HCl [Buspar] 5 mg PO BID 10/12/23 [History] Cefdinir 300 mg PO Q12HR #2 cap 10/16/23 [Rx] Furosemide [Lasix] 40 mg PO DAILY tab 10/16/23 [Rx] predniSONE 5 mg PO DAILY #0 10/16/23 [Rx] Follow up Appointment(s)/Referral(s): Dk Christina MD [REFERRING] - 1 Week Patient Instructions/Handouts: COPD (Chronic Obstructive Pulmonary Disease) (DC), Bacterial Pneumonia (DC) Activity/Diet/Wound Care/Special Instructions: Please see your PCP. Discharge Disposition: HOME WITH HOME HEALTH SERVICES
--- NOTE | 2023-10-16 14:32 | P.PN ---
Subjective Progress Note Date: 10/16/23 Principal diagnosis: Shortness of breath. This is a pleasant 63-year-old female with a history of chronic hypoxic respiratory failure maintained on oxygen 5 L/min nasal cannula and the patient has been maintained on prednisone at a dose of 10 mg p.o. daily and DuoNeb updrafts. She is known to have CAD with previous stenting of the RCA and she does have some residual stenosis of the LAD in the order of 40 to 50%. She suffered some severe aortic valve stenosis and she has undergone valvuloplasty, she has hypertension, hyperlipidemia, obesity, chronic back pain, and possibly obstructive sleep apnea. She has had frequent readmissions to the hospital for acute on chronic hypoxic respiratory episodes/COPD. She was able to qualify for BiPAP at home on her recent discharge of 09/20/2023 but apparently she has not been utilizing it due to inadequate fitting of her mask according to her . Unfortunately, she does not get out to see us in the office. She is mainly in the hospital or at home. She presented here again to the emergency room early this morning with a 3-day history of increasing shortness of breath, cough and congestion. Chest x-ray revealed right medial lung base density reflecting atelectasis versus infiltrate. She is currently on BiPAP 03/29 and 100% FiO2. We decrease the FiO2 to 50%. She has been initiated on DuoNeb inhalations, Pulmicort and Perforomist inhalations, Solu-Medrol. Empiric antibiotics in the form of Zosyn and azithromycin. Normal saline at 75 MLS per hour. White count 15.2. Hemoglobin 10.3. Platelets 348. Sodium 137. Potassium 4.4. Bicarb 33. BUN 19. Creatinine 0.78. Glucose 192. Viral screen is negative. Procalcitonin is pending. Patient was reevaluated today on 10/13/2023, patient is doing well, better today compared to yesterday, however she remains on BiPAP and she will be intermittently transitioned to nasal cannula as tolerated. Patient is on maximal therapy for her COPD, she is also on antibiotics and steroids. Chest x- ray on admission showed increased density right medial lung base, could be atelectasis or could be infiltrate, hence we will continue to monitor that abnormality, procalcitonin level is 0.3, elevated, hence would be concerned about the possibility of pneumonia involving the right lower lobe Patient was evaluated today on 10/14/2023, patient is feeling better today, on 5 L nasal cannula, intermittently on BiPAP, O2 sat is 95% on 5 L. Patient remains on diuretics, slight worsening of her renal profile is noted, and her dose of diuretics has been cut down by admitting physician. WBC count is 12.4 hemoglobin 8.3 basic metabolic profile is normal BUN is 54 creatinine 1.62, Compared to creatinine of 0.78 on admission patient had relatively unremarkable renal ultrasound, no evidence of hydronephrosis or obstructive uropathy Patient was evaluated today on 10/15/2023, remains on relatively high flow oxygen, 5 L/min, intermittently on BiPAP with FiO2 of 40%. Patient is doing well at present, relatively asymptomatic, but she is on BiPAP. Yue on bronchodilators, steroids, and diuretics. Her diuretics have been decreased because of her renal functioning. WBC count is 13.1 hemoglobin is 7.9 basic metabolic profile is normal BUN is 55 creatinine 1.39 Progress note dated October 16, 2023. 63-year-old female well-known to our service. She is seen today in room 359. She continues on oxygen therapy, and BiPAP, intermittently. Blood cultures are negative. She continues on Rocephin. Procalcitonin level was 0.30. Current laboratory data includes a white count 13.9, hemoglobin 8.2, hematocrit 27.7, and platelet count 374,000. Sodium 141, potassium 4.7, chlorides 104, CO2 36, BUN 41, and creatinine 0.88. Glucose 124. Calcium 9.2. Blood cultures are currently negative. Chest x-ray shows some mild interstitial edema. Objective - Vital Signs Vital signs: Vital Signs Temp 97.7 F 10/16/23 00:28 Pulse 68 10/16/23 12:13 Resp 16 10/16/23 11:20 BP 115/73 10/16/23 11:20 Pulse Ox 93 L 10/16/23 11:20 FiO2 40 10/16/23 12:06 Intake & Output 10/15/23 10/16/23 10/16/23 18:59 06:59 18:59 Intake Total 120 Balance 120 Intake: Oral 120 Other: Voiding Method Bedside Commode Bedside Commode # Voids 1 1 1 # Bowel Movements 1 - Exam No acute distress, oriented 3. Currently on nasal O2. HEENT examination is grossly unremarkable. Mucous membranes are moist. No oral lesions. Neck supple. Full range of motion. No adenopathy thyromegaly or neck vein distention. Cardiovascular examination reveals regular rhythm rate. S1-S2 normal. No S3 or S4. No discernible murmur noted. Heart sounds are distant. Heart rate 68 bpm. Lungs reveal scattered mild rhonchi. Breath sounds are equal but diminished throughout. No crackles. Saturations are 93% on 5 L nasal cannula. Abdomen soft bowel sounds are heard. No masses or tenderness. Extremities are intact. No cyanosis clubbing or edema. Skin is without rash or lesion. Neurologic examination is brief but nonfocal. - Labs CBC & Chem 7: 10/16/23 08:26 10/16/23 08:26 Labs: Abnormal Lab Results - Last 24 Hours (Table) 10/15/23 10/15/23 10/16/23 Range/Units 16:38 20:02 06:05 WBC (3.8-10.6) k/uL RBC (3.80-5.40) m/uL Hgb (11.4-16.0) gm/dL Hct (34.0-46.0) % MCV (80.0-100.0) fL MCHC (31.0-37.0) g/dL Neutrophils # (1.3-7.7) k/uL Lymphocytes # (1.0-4.8) k/uL Monocytes # (0-1.0) k/uL Carbon Dioxide (22-30) mmol/L BUN (7-17) mg/dL Glucose (74-99) mg/dL POC Glucose (mg/dL) 120 H 194 H 195 H (70-110) mg/dL 10/16/23 10/16/23 10/16/23 Range/Units 08:26 08:26 11:44 WBC 13.9 H (3.8-10.6) k/uL RBC 2.77 L (3.80-5.40) m/uL Hgb 8.2 L (11.4-16.0) gm/dL Hct 27.7 L (34.0-46.0) % MCV 100.2 H (80.0-100.0) fL MCHC 29.5 L (31.0-37.0) g/dL Neutrophils # 11.5 H (1.3-7.7) k/uL Lymphocytes # 0.8 L (1.0-4.8) k/uL Monocytes # 1.2 H (0-1.0) k/uL Carbon Dioxide 36 H (22-30) mmol/L BUN 41 H (7-17) mg/dL Glucose 111 H (74-99) mg/dL POC Glucose (mg/dL) 124 H (70-110) mg/dL Microbiology - Last 24 Hours (Table) 10/12/23 09:15 Blood Culture - Preliminary Blood 10/12/23 09:15 Blood Culture - Preliminary Blood Assessment and Plan Assessment: Acute on chronic hypoxemic and hypercapnic respiratory failure. Acute exacerbation of COPD, with possible right lower lobe pneumonia. Advanced oxygen dependent COPD, on home O2 at 5 L. Coronary artery disease, primarily involving the LAD. Ischemic cardiomyopathy with ejection fraction of 25 to 30%. Severe aortic stenosis with previous aortic valvuloplasty. History of shingles. Hyperlipidemia. Hypertension. Chronic low back pain Obesity. Prior history of heavy tobacco use. History of acute kidney injury. Plan: Plan dated October 16, 2023. The patient continues on oxygen therapy, and or BiPAP. The patient also continues on bronchodilators, diuretics, and corticosteroids. The patient continues on antibiotics. Labs, x-rays, and medications are reviewed. The patient is a no code patient, who does not come to our office. She is only seen here in the hospital. We will continue to follow and make recommendations along the way. The patient's overall prognosis is poor. Time with Patient: Less than 30
--- NOTE | 2023-10-18 12:55 | CDI ---
Documentation Clarification Form Date: 10/18/23 From: Nguyen Griffin Admit Date: 10/12/2023 09:46:00 AM Patient Name: Blanka Porras Visit Number: [id number] Discharge Date: 10/16/2023 03:31:00 PM ATTENTION: The Clinical Documentation Specialists (CDI) and [facility] Coding Staff appreciate your assistance in clarifying documentation. Please respond to the clarification below the line at the bottom and electronically sign. The CDI & [facility] Coding staff will review the response and follow-up if needed. Please note: Queries are made part of the Legal Health Record. If you have any questions, please contact the author of this message via ITS. Dr. Twin Alcala, Sepsis is documented in the ED Note, but is not noted in subsequent documentation. Clarification is requested. History/Risk Factors: Pneumonia, acute and chronic hypoxic & hypercapnia respiratory, DIANA, AECOPD, depression, anxiety, HTN Clinical Indicators: ED Note: Patient technically does meet forsepsisand is being covered for septicpneumonia with IV Zosyn and azithromycin. Sepsiscriteria met at 0841. Lactic acid 3.7. WBC 15.2. Neutrophils 9.9. T 99.7, P 161, R 38, BP152/92 On BIPAP Treatment: IV antibiotics, BIPAP Please clarify if the diagnosis of sepsis is: [ ] Sepsis ruled out [ x ] Sepsis is a valid diagnosis as evidence by the following: (Please add rationale): pneumonia source, ___elevated WBC and RR [ ] Non-Infectious SIRS due to (please specify) [ ] Non-infectious SIRS due to with organ dysfunction as evidenced by [list organ dysfunction] [ ] Other, please specify [ ] Unable to determine MTDD
== END 2023-10-16 15:31 | disposition home health service (06) | DRG 871 ==
LOC: EC 07:55 → 3SCARD 09:46
PROVIDERS: ADMIT Student in an Organized Health Care Education/Training Program; ATTEND Student in an Organized Health Care Education/Training Program
PROC: 5A09557 Assistance with Respiratory Ventilation, Greater than 96 Consecutive Hours, Continuous Positive Airway Pressure (ICD-10-PCS; principal; 2023-10-12)
DX: A41.9 Sepsis, unspecified organism (principal); J18.9 Pneumonia, unspecified organism; J96.21 Acute and chronic respiratory failure with hypoxia; J96.22 Acute and chronic respiratory failure with hypercapnia; N17.9 Acute kidney failure, unspecified; J44.1 Chronic obstructive pulmonary disease with (acute) exacerbation; J44.0 Chronic obstructive pulmonary disease with (acute) lower respiratory infection; Q23.1 Congenital insufficiency of aortic valve; E66.9 Obesity, unspecified; Z68.38 Body mass index [BMI] 38.0-38.9, adult; F32.A Depression, unspecified; I10 Essential (primary) hypertension; Z66 Do not resuscitate; F41.9 Anxiety disorder, unspecified; Z99.81 Dependence on supplemental oxygen; E78.5 Hyperlipidemia, unspecified; I25.5 Ischemic cardiomyopathy; G89.29 Other chronic pain; I25.2 Old myocardial infarction; M54.50 Low back pain, unspecified; I25.10 Atherosclerotic heart disease of native coronary artery without angina pectoris; G47.33 Obstructive sleep apnea (adult) (pediatric); M19.90 Unspecified osteoarthritis, unspecified site; Z91.199 Patient's noncompliance with other medical treatment and regimen due to unspecified reason; Z79.82 Long term (current) use of aspirin; Z79.51 Long term (current) use of inhaled steroids; Z79.84 Long term (current) use of oral hypoglycemic drugs; Z79.52 Long term (current) use of systemic steroids; Z79.899 Other long term (current) drug therapy; Z95.5 Presence of coronary angioplasty implant and graft; Z86.19 Personal history of other infectious and parasitic diseases; Z87.891 Personal history of nicotine dependence
CPT/HCPCS: 36415; 71045; 76770; 80048; 80053; 81001; 82803; 83605; 83735; 84145; 85025; 85610; 85730; 87040; 87449; 87636; 93005; 94640; 94660; 94760; 96361; 96365; 96366; 96367; 96372; 96375; 96376; 99291

== ENCOUNTER 2023-10-17 12:20 | Inpatient (IN) | payer OTHER ==
[2023-10-17] MEDS: ALBUTEROL NEBULIZED 2.5 MG/3 ML INHALATION STA (12:39)
[2023-10-17] MEDS: IPRATROPIUM 0.5 MG/2.5 ML NEBU INHALATION STA (12:39)
--- NOTE | 2023-10-17 12:40 | ED ---
General Adult HPI - General Chief complaint: Shortness of Breath Stated complaint: GRAYSON Time Seen by Provider: 10/17/23 12:22 Source: patient, family, RN notes reviewed, old records reviewed Mode of arrival: wheelchair Limitations: altered mental status - History of Present Illness Initial comments: 63-year-old female with oxygen dependent COPD presenting with lethargy, dyspnea. History is limited due to patient's clinical presentation of hypoxia at 70% on 8 L nasal cannula. History is obtained somewhat from the patient due to limited questions and from family member who is at bedside. Patient was discharged from the hospital yesterday. She has history of oxygen dependent COPD. There has been no central chest pain. No fever. - Related Data Home Medications Medication Instructions Recorded Confirmed Albuterol Inhaler [Ventolin Hfa 2 puff INHALATION RT-Q4H PRN 04/09/22 10/17/23 Inhaler] Atorvastatin [Lipitor] 40 mg PO HS 04/09/22 10/17/23 Budesonide/Formoterol Fumarate 2 puff INHALATION RT-BID 07/13/22 10/17/23 [Symbicort 160-4.5 Mcg Inhaler] Ipratropium-Albuterol Nebulize 3 ml INHALATION RT-QID PRN 09/23/22 10/17/23 [Duoneb 0.5 mg-3 mg/3 ml Soln] Dapagliflozin Propanediol [Farxiga] 5 mg PO DAILY 11/19/22 10/17/23 Yupelri 175mcg/3ml 175 mcg INHALATION RT-DAILY 11/19/22 10/17/23 Capsaicin Cream [Trixaicin Cream] 1 applic TOPICAL TID PRN 10/12/23 10/17/23 LORazepam [Ativan] 0.25 mg PO DAILY PRN 10/12/23 10/17/23 Sertraline [Zoloft] 150 mg PO DAILY 10/12/23 10/17/23 busPIRone HCl [Buspar] 5 mg PO BID 10/12/23 10/17/23 Cefdinir 300 mg PO DIRECTED 10/17/23 10/17/23 predniSONE 35 mg PO DIRECTED 10/17/23 10/17/23 Previous Rx's Medication Instructions Recorded Aspirin 81 mg PO DAILY 30 Days #30 tab 04/12/22 Potassium Chloride ER [K-Dur 20] 20 meq PO BID #60 tab 08/09/23 Metoprolol Succinate (ER) [Toprol 50 mg PO BID tab 09/20/23 XL] Furosemide [Lasix] 40 mg PO DAILY tab 10/16/23 predniSONE 5 mg PO DAILY #0 10/16/23 Allergies Allergy/AdvReac Type Severity Reaction Status Date / Time No Known Allergies Allergy Verified 10/17/23 13:15 Review of Systems ROS Statement: Those systems with pertinent positive or pertinent negative responses have been documented in the HPI. ROS Other: All systems not noted in ROS Statement are negative. Past Medical History Past Medical History: Coronary Artery Disease (CAD), Chest Pain / Angina, COPD, Myocardial Infarction (ME), Respiratory Disorder Additional Past Medical History / Comment(s): Chronic hypercapnic respiratory failure, home oxygen at 5L/NC ATC, tracheobronchitis, severe bicuspid aortic valve stenosis, chronic low back pain, DJD Last Myocardial Infarction Date:: 04/2023 History of Any Multi-Drug Resistant Organisms: None Reported Past Surgical History: Breast Surgery, Heart Catheterization With Stent, Tubal Ligation Additional Past Surgical History / Comment(s): Bilateral breast reductions, bilateral cataract removals. Past Anesthesia/Blood Transfusion Reactions: No Reported Reaction Date of Last Stent Placement:: 04/2023 Past Psychological History: Anxiety, Depression Smoking Status: Former smoker Past Alcohol Use History: None Reported Past Drug Use History: None Reported - Past Family History Father History Unknown: Yes Mother Family Medical History: Congestive Heart Failure (CHF), Diabetes Mellitus General Exam Limitations: no limitations General appearance: lethargic, in distress Head exam: Present: atraumatic, normocephalic Eye exam: Present: normal appearance, PERRL ENT exam: Present: mucous membranes dry Respiratory exam: Present: respiratory distress, decreased breath sounds Cardiovascular Exam: Present: normal rhythm, tachycardia Extremities exam: Absent: pedal edema Neurological exam: Present: alert Skin exam: Present: cyanosis Course Vital Signs 10/17/23 10/17/23 10/17/23 12:21 12:39 12:41 Temperature 97.9 F Pulse Rate 115 H 99 Respiratory 36 H 17 20 Rate Blood Pressure O2 Sat by Pulse 71 L Oximetry Fraction of 50 Inspired Oxygen (FIO2) 10/17/23 10/17/23 10/17/23 12:44 12:45 13:04 Temperature Pulse Rate 91 Respiratory 24 Rate Blood Pressure O2 Sat by Pulse Oximetry Fraction of 50 50 Inspired Oxygen (FIO2) 10/17/23 10/17/23 13:08 13:53 Temperature Pulse Rate 84 Respiratory 18 Rate Blood Pressure 125/85 O2 Sat by Pulse 96 Oximetry Fraction of 40 Inspired Oxygen (FIO2) - Reevaluation(s) Reevaluation #1: 10/17/23 14:17 Fluids held secondary to fluid overload and acute CHF. I suspect the lactic acidosis is from hypoxia rather than hypovolemia. Medical Decision Making - Medical Decision Making Was pt. sent in by a medical professional or institution (, PA, BULK [employer] HANDLER, urgent care, hospital, or assisted...) When possible be specific @ -[No] Did you speak to anyone other than the patient for history (EMS, parent, family, police, friend...)? What history was obtained from this source @ -[No] Did you review nursing and triage notes (agree or disagree)? Why? @ -[I reviewed and agree with nursing and triage notes] Were old charts reviewed (outside hosp., previous admission, EMS record, old EKG, old radiological studies, urgent care reports/EKG's, assisted records)? Report findings @ -[No old charts were reviewed] Differential Dyspnea: Coronary syndrome, arrhythmia, tamponade, asthma, COPD, pulmonary embolism, pneumonia, pneumothorax, pulmonary effusion, anaphylaxis, diabetic ketoacidosis, flailed chest, pulmonary contusion, diaphragmatic rupture, anemia, neuromuscular, this is not meant to be an all-inclusive list. EKG interpreted by me (3pts min.). @EKG: Sinus rhythm with frequent PVC and a pattern of bigeminy ST segment depression in the lateral precordial leads I do not see any ST segment elevation rate of 94, ND interval 149, QRS duration 115, QTc 431. X-rays interpreted by me (1pt min.). @ -View chest x-ray showing increased pulmonary edema and concern for CHF. CT interpreted by me (1pt min.). @ -[None done] U/S interpreted by me (1pt. min.). @ -[None done] What testing was considered but not performed or refused? (CT, X-rays, U/S, labs)? Why? @ -[None] What meds were considered but not given or refused? Why? @ -[None] Did you discuss the management of the patient with other professionals (professionals i.e. DrThad, PA, B[employer] HANDLER, lab, RT, psych nurse, social security assessor, film spooler, teacher, safety and security officer, community case manager)? Give summary @Case discussed with Navjot pacheco [facility], will admit with pulmonology on consult. Was smoking cessation discussed for >3mins.? @ -[No] Was critical care preformed (if so, how long)? @ -Care: 35 minutes Were there social determinants of health that impacted care today? How? (Homelessness, low income, unemployed, alcoholism, drug addiction, transportation, low edu. Level, literacy, decrease access to med. care, penitentiary, rehab)? @ -[No] Was there de-escalation of care discussed even if they declined (Discuss DNR or withdrawal of care, Hospice)? DNR status @ -[No] What co-morbidities impacted this encounter? (DM, HTN, Smoking, COPD, CAD, Cancer, CVA, ARF, Chemo, Hep., AIDS, mental health diagnosis, sleep apnea, morbid obesity)? @ -Oxygen dependent COPD Was patient admitted / discharged? Hospital course, mention meds given and route, prescriptions, significant lab abnormalities, going to OR and other pertinent info. @ 63 female presenting an extremis, hypoxic with minimal air movement. Patient immediately placed on BiPAP upon arrival with significant improvement in oxygenation and work of breathing. Patient has significant lab abnormalities including leukocytosis, chronic anemia which is stable. She is retaining CO2. She has elevated troponin and elevated BNP. Dyspnea, hypoxia and hypercapnia multifactorial including body habitus, COPD and concern for possible CHF with elevated BNP and persistently elevated troponin. Discharged yesterday and will require readmission. Undiagnosed new problem with uncertain prognosis? @ -[No] Drug Therapy requiring intensive monitoring for toxicity (Heparin, Nitro, Insulin, Cardizem)? @ -[No] Were any procedures done? @ -[No] Diagnosis/symptom? @Hypoxic hypercapnic respiratory failure secondary to COPD exacerbation. Acute, or Chronic, or Acute on Chronic? @ -[Acute on chronic Uncomplicated (without systemic symptoms) or Complicated (systemic symptoms)? @ -[default] Side effects of treatment? @ -[No] Exacerbation, Progression, or Severe Exacerbation? @ -[No] Poses a threat to life or bodily function? How? (Chest pain, USA, ME, pneumonia, PE, COPD, DKA, ARF, appy, cholecystitis, CVA, Diverticulitis, Homicidal, Suicidal, threat to staff... and all critical care pts) @ -Yes, hypoxia, respiratory failure - Lab Data Result diagrams: 10/17/23 12:53 10/17/23 12:53 Lab Results 10/17/23 10/17/23 10/17/23 Range/Units 12:53 12:53 12:53 WBC 21.2 H (3.8-10.6) k/uL RBC 3.22 L (3.80-5.40) m/uL Hgb 9.6 L (11.4-16.0) gm/dL Hct 32.7 L (34.0-46.0) % MCV 101.5 H (80.0-100.0) fL MCH 29.9 (25.0-35.0) pg MCHC 29.5 L (31.0-37.0) g/dL RDW 14.3 (11.5-15.5) % Plt Count 491 H (150-450) k/uL MPV 7.5 Hypochromasia Marked Macrocytosis Slight PT 10.6 (10.0-12.5) sec INR 1.0 (<1.2) APTT 20.6 L (22.0-30.0) sec VBG pH (7.31-7.41) VBG pCO2 (37-51) mmHg VBG HCO3 (24-28) mmol/L Sodium 143 (137-145) mmol/L Potassium 3.5 (3.5-5.1) mmol/L Chloride 98 (98-107) mmol/L Carbon Dioxide 38 H (22-30) mmol/L Anion Gap 7 mmol/L BUN 30 H (7-17) mg/dL Creatinine 0.75 (0.52-1.04) mg/dL Est GFR (CKD-EPI)AfAm >90 (>60 ml/min/1.73 sqM) Est GFR (CKD-EPI)NonAf 86 (>60 ml/min/1.73 sqM) Glucose 208 H (74-99) mg/dL Plasma Lactic Acid Ruslan (0.7-2.0) mmol/L Calcium 9.2 (8.4-10.2) mg/dL Magnesium 2.2 (1.6-2.3) mg/dL Total Bilirubin 0.4 (0.2-1.3) mg/dL AST 30 (14-36) U/L ALT 18 (4-34) U/L Alkaline Phosphatase 83 (38-126) U/L Troponin I (0.000-0.034) ng/mL NT-Pro-B Natriuret Pep 24477 pg/mL Total Protein 6.1 L (6.3-8.2) g/dL Albumin 3.5 (3.5-5.0) g/dL 10/17/23 10/17/23 10/17/23 Range/Units 12:53 12:53 12:53 WBC (3.8-10.6) k/uL RBC (3.80-5.40) m/uL Hgb (11.4-16.0) gm/dL Hct (34.0-46.0) % MCV (80.0-100.0) fL MCH (25.0-35.0) pg MCHC (31.0-37.0) g/dL RDW (11.5-15.5) % Plt Count (150-450) k/uL MPV Hypochromasia Macrocytosis PT (10.0-12.5) sec INR (<1.2) APTT (22.0-30.0) sec VBG pH 7.29 L (7.31-7.41) VBG pCO2 81 H* (37-51) mmHg VBG HCO3 39 H (24-28) mmol/L Sodium (137-145) mmol/L Potassium (3.5-5.1) mmol/L Chloride (98-107) mmol/L Carbon Dioxide (22-30) mmol/L Anion Gap mmol/L BUN (7-17) mg/dL Creatinine (0.52-1.04) mg/dL Est GFR (CKD-EPI)AfAm (>60 ml/min/1.73 sqM) Est GFR (CKD-EPI)NonAf (>60 ml/min/1.73 sqM) Glucose (74-99) mg/dL Plasma Lactic Acid Ruslan 3.0 H* (0.7-2.0) mmol/L Calcium (8.4-10.2) mg/dL Magnesium (1.6-2.3) mg/dL Total Bilirubin (0.2-1.3) mg/dL AST (14-36) U/L ALT (4-34) U/L Alkaline Phosphatase (38-126) U/L Troponin I 0.082 H* (0.000-0.034) ng/mL NT-Pro-B Natriuret Pep pg/mL Total Protein (6.3-8.2) g/dL Albumin (3.5-5.0) g/dL Critical Care Time Critical Care Time: Yes Total Critical Care Time: 35 Disposition Clinical Impression: COPD (chronic obstructive pulmonary disease), Hypoxia, Elevated troponin, Respiratory failure with hypoxia Disposition: ADMITTED IP TO THIS HOSP Condition: Serious Is patient prescribed a controlled substance at d/c from ED?: No Time of Disposition: 14:05
[2023-10-17] MEDS: methylPREDNISolone SOD SUCCI 125 MG/2 ML VIAL IV STA (12:53)
[2023-10-17 13:09] LABS: VBG PH 7.29 (7.31-7.41)
[2023-10-17 13:21] LABS: HCT 32.7 % (34.0-46.0); HGB 9.6 gm/dL (11.4-16.0); Hypochromasia Marked; MCH 29.9 pg (25.0-35.0); MCHC 29.5 g/dL (31.0-37.0); MCV 101.5 fL (80.0-100.0); Macrocytosis Slight; Mean Platelet Volume 7.5; Platelet Count 491 k/uL (150-450); RBC 3.22 m/uL (3.80-5.40); RDW 14.3 % (11.5-15.5); WBC 21.2 k/uL (3.8-10.6)
[2023-10-17 13:23] LABS: ALT 18 U/L (4-34); AST 30 U/L (14-36); African American GFR (CKD) >90 (>60 ml/min/1.73 sqM); Albumin 3.5 g/dL (3.5-5.0); Alkaline Phosphatase 83 U/L (38-126); Blood Urea Nitrogen 30 mg/dL (7-17); Calcium 9.2 mg/dL (8.4-10.2); Chloride 98 mmol/L (98-107); Glucose 208 mg/dL (74-99); Magnesium 2.2 mg/dL (1.6-2.3); Non-African American GFR(CKD) 86 (>60 ml/min/1.73 sqM); Potassium 3.5 mmol/L (3.5-5.1); Sodium 143 mmol/L (137-145); Total Bilirubin 0.4 mg/dL (0.2-1.3); Total Protein 6.1 g/dL (6.3-8.2)
[2023-10-17 13:24] LABS: Partial Thromboplastin Time 20.6 sec (22.0-30.0); Prothrombin Time 10.6 sec (10.0-12.5)
[2023-10-17 13:29] LABS: Anion Gap 7 mmol/L; Carbon Dioxide 38 mmol/L (22-30)
[2023-10-17 13:31] LABS: NT-Pro-B-Type Natriuretic Pept 15800 pg/mL
[2023-10-17] MEDS ORDERED: NALOXONE 0.4 MG/ML 1 ML VIAL IVP PRN (14:01)
--- NOTE | 2023-10-17 14:30 | XR ---
EXAMINATION TYPE: XR chest 1V portable DATE OF EXAM: 10/17/2023 Comparison: 10/16/2023 Clinical History: 63-year-old female shortness of breath, difficulty breathing Findings: Heart mildly enlarged. Hyperinflation. Interstitial patchy opacity mid and lower lungs similar to rec ent prior. Impression: Interstitial and patchy opacities in the mid and lower lungs superimposed on COPD. Consider bibasilar infiltrates versus atypical interstitial pulmonary edema.
[2023-10-17] MEDS: AZITHROMYCIN 500 MG in SODIUM CHLORIDE 0.9% 250 ML IVPB STA (14:56)
[2023-10-17] MEDS: FUROSEMIDE 10 MG/ML 2 ML VIAL IV STA (15:00)
[2023-10-17] MEDS: IPRATROPIUM-ALBUTEROL 3 ML NEB INHALATION SCH (15:03)
[2023-10-17] MEDS ORDERED: LACTULOSE 20 GM/30 ML CUP PO PRN (15:19)
[2023-10-17] MEDS ORDERED: ONDANSETRON 4 MG/2 ML VIAL IVP PRN (15:19)
[2023-10-17] MEDS ORDERED: ACETAMINOPHEN TAB 325 MG TAB PO PRN (15:19)
[2023-10-17] MEDS ORDERED: DOCUSATE 100 MG CAP PO PRN (15:19)
[2023-10-17] MEDS ORDERED: CALCIUM CARBONATE 500 MG CHEWABLE PO PRN (15:19)
[2023-10-17] MEDS ORDERED: NA PHOS,M-B/NA PHOS,DI-BA 133 ML ENEMA RECTAL PRN (15:19)
[2023-10-17] MEDS ORDERED: MAGNESIUM HYDROXIDE 2,400 MG/30 ML CUP PO PRN (15:19)
[2023-10-17] MEDS ORDERED: DEXTROSE 50% SYRINGE 50 ML IVP PRN ×2 (15:27)
--- NOTE | 2023-10-17 16:23 | P.HPIM ---
History of Present Illness H&P Date: 10/17/23 Chief Complaint: Dyspnea Ms. Porras is a 63-year-old lady with a medical history significant for COPD on 5 to 6 L home oxygen, severe bicuspid aortic valve stenosis, CAD, ischemic cardiomyopathy with EF 25 to 30%, hypertension and dyslipidemia. She presents today with progressively worsening dyspnea. She was recently discharged from our facility yesterday. She states since discharge she has gradually had worsening shortness of breath. She has had increased baseline cough that is nonproductive. She has chronic orthopnea that is unchanged. She did not use her BiPAP last night. She does endorse fevers and chills. States has been compliant with her prednisone and Lasix at home. She is denying any chest pain. In the ED, she was in respiratory distress with a pulse ox of 71% on 8 L oxygen. Her respiratory rate was also 36 along with a heart rate of 115. She was afebrile. She was placed on BiPAP 12/6 40%. She is currently in the 90s and comfortable in the setting. Labs were significant for a white count of 21.2. Hemoglobin 9.6, lactate of 3 and troponin 0.08. Her VBG showed pH 7.29 with a pCO2 of 81. Her EKG showed sinus rhythm with PVCs along with Q waves in V1 and V2. Her chest x-ray was personally reviewed and shows bilateral infiltrates mostly in the mid lung bases. Review of Systems Complete review of systems, pertinent positives and negatives in HPI Past Medical History Past Medical History: Coronary Artery Disease (CAD), Chest Pain / Angina, COPD, Myocardial Infarction (DC), Respiratory Disorder Additional Past Medical History / Comment(s): Chronic hypercapnic respiratory failure, home oxygen at 5L/NC ATC, tracheobronchitis, severe bicuspid aortic valve stenosis, chronic low back pain, DJD Last Myocardial Infarction Date:: 04/2023 History of Any Multi-Drug Resistant Organisms: None Reported Past Surgical History: Breast Surgery, Heart Catheterization With Stent, Tubal Ligation Additional Past Surgical History / Comment(s): Bilateral breast reductions, bilateral cataract removals. Past Anesthesia/Blood Transfusion Reactions: No Reported Reaction Date of Last Stent Placement:: 04/2023 Past Psychological History: Anxiety, Depression Smoking Status: Former smoker Past Alcohol Use History: None Reported Past Drug Use History: None Reported - Past Family History Father History Unknown: Yes Mother Family Medical History: Congestive Heart Failure (CHF), Diabetes Mellitus Medications and Allergies Home Medications Medication Instructions Recorded Confirmed Type Albuterol Inhaler [Ventolin Hfa 2 puff INHALATION RT-Q4H PRN 04/09/22 10/17/23 History Inhaler] Atorvastatin [Lipitor] 40 mg PO HS 04/09/22 10/17/23 History Aspirin 81 mg PO DAILY 30 Days #30 tab 04/12/22 10/17/23 Rx Budesonide/Formoterol Fumarate 2 puff INHALATION RT-BID 07/13/22 10/17/23 History [Symbicort 160-4.5 Mcg Inhaler] Ipratropium-Albuterol Nebulize 3 ml INHALATION RT-QID PRN 09/23/22 10/17/23 History [Duoneb 0.5 mg-3 mg/3 ml Soln] Dapagliflozin Propanediol [Farxiga] 5 mg PO DAILY 11/19/22 10/17/23 History Yupelri 175mcg/3ml 175 mcg INHALATION RT-DAILY 11/19/22 10/17/23 History Potassium Chloride ER [K-Dur 20] 20 meq PO BID #60 tab 08/09/23 10/17/23 Rx Metoprolol Succinate (ER) [Toprol 50 mg PO BID tab 09/20/23 10/17/23 Rx XL] Capsaicin Cream [Trixaicin Cream] 1 applic TOPICAL TID PRN 10/12/23 10/17/23 History LORazepam [Ativan] 0.25 mg PO DAILY PRN 10/12/23 10/17/23 History Sertraline [Zoloft] 150 mg PO DAILY 10/12/23 10/17/23 History busPIRone HCl [Buspar] 5 mg PO BID 10/12/23 10/17/23 History Furosemide [Lasix] 40 mg PO DAILY tab 10/16/23 10/17/23 Rx predniSONE 5 mg PO DAILY #0 10/16/23 10/17/23 Rx Cefdinir 300 mg PO DIRECTED 10/17/23 10/17/23 History predniSONE 35 mg PO DIRECTED 10/17/23 10/17/23 History Allergies Allergy/AdvReac Type Severity Reaction Status Date / Time No Known Allergies Allergy Verified 10/17/23 13:15 Physical Exam Vitals: Vital Signs Temp Pulse Resp BP Pulse Ox FiO2 10/17/23 15:17 85 16 10/17/23 15:05 89 20 40 10/17/23 14:55 89 20 108/73 94 L 10/17/23 13:53 84 18 125/85 96 10/17/23 13:08 40 10/17/23 13:04 91 24 10/17/23 12:45 50 10/17/23 12:44 50 10/17/23 12:41 20 50 10/17/23 12:39 99 17 10/17/23 12:21 97.9 F 115 H 36 H 71 L Intake and Output 10/17/23 10/17/23 10/17/23 06:59 14:59 22:59 Other: Weight 104.326 kg Vitals: Reviewed General: No acute distress HEENT: Mucous membranes moist neck supple Cardiovascular: RRR, S1-S2 Lungs: Breath sounds equal distant and diminished with minimal bibasilar crackl es Abdomen: Soft, nontender, nondistended Extremities: 1+ lower extremity edema Results CBC & Chem 7: 10/17/23 12:53 10/17/23 12:53 Labs: Abnormal Lab Results - Last 24 Hours (Table) 10/17/23 10/17/23 10/17/23 Range/Units 12:53 12:53 12:53 WBC 21.2 H (3.8-10.6) k/uL RBC 3.22 L (3.80-5.40) m/uL Hgb 9.6 L (11.4-16.0) gm/dL Hct 32.7 L (34.0-46.0) % MCV 101.5 H (80.0-100.0) fL MCHC 29.5 L (31.0-37.0) g/dL Plt Count 491 H (150-450) k/uL APTT 20.6 L (22.0-30.0) sec VBG pH (7.31-7.41) VBG pCO2 (37-51) mmHg VBG HCO3 (24-28) mmol/L Carbon Dioxide 38 H (22-30) mmol/L BUN 30 H (7-17) mg/dL Glucose 208 H (74-99) mg/dL Plasma Lactic Acid Ruslan (0.7-2.0) mmol/L Troponin I (0.000-0.034) ng/mL Total Protein 6.1 L (6.3-8.2) g/dL 10/17/23 10/17/23 10/17/23 Range/Units 12:53 12:53 12:53 WBC (3.8-10.6) k/uL RBC (3.80-5.40) m/uL Hgb (11.4-16.0) gm/dL Hct (34.0-46.0) % MCV (80.0-100.0) fL MCHC (31.0-37.0) g/dL Plt Count (150-450) k/uL APTT (22.0-30.0) sec VBG pH 7.29 L (7.31-7.41) VBG pCO2 81 H* (37-51) mmHg VBG HCO3 39 H (24-28) mmol/L Carbon Dioxide (22-30) mmol/L BUN (7-17) mg/dL Glucose (74-99) mg/dL Plasma Lactic Acid Ruslan 3.0 H* (0.7-2.0) mmol/L Troponin I 0.082 H* (0.000-0.034) ng/mL Total Protein (6.3-8.2) g/dL Assessment and Plan Plan: # Acute on chronic hypoxic hypercapnic respiratory failure # COPD exacerbation # HFrEF exacerbation # Cannot exclude pneumonia Wean down oxygen as tolerated. IV Lasix 20 mg twice daily. Strict I's and O's and daily weights. Antibiotics with Zosyn and azithromycin. Sputum culture. Follow-up x-ray next a.m. Last echo in August showed EF 25 to 30%, mild to moderate AR, severe aortic stenosis. She may have had flash pulmonary edema in the setting of CHF and aortic stenosis. Continue with scheduled and as needed breathing treatments. Steroids with IV Solu-Medrol. # Indeterminate troponin Likely secondary to hypoxia. Trend. Cardiology on consult. No chest pain. Aspirin and statin. # Unspecified psych disorder Continue home meds VTE prophylaxis with subcu heparin GI prophylaxis with Pepcid
[2023-10-17 18:17] LABS: Glucose,Whole Blood 118 mg/dL (70-110)
[2023-10-17] MEDS: methylPREDNISolone SOD SUCCI 125 MG/2 ML VIAL IV SCH (18:24)
[2023-10-17] MEDS: PIPERACILLIN-TAZOBACTAM 3.375 GM in SODIUM CHLORIDE 0.9% 100 ML IVPB SCH (18:25)
[2023-10-17] MEDS: INSULIN ASPART (NovoLOG) 100 UNIT/ML VIAL SQ SCH (18:32)
[2023-10-17] MEDS: ATORVASTATIN 40 MG TAB PO SCH (21:17)
[2023-10-17] MEDS: busPIRone HCl 5 MG TAB PO SCH (21:17)
[2023-10-17] MEDS: LORazepam 0.5 MG TAB PO PRN (21:17)
[2023-10-17] MEDS: METOPROLOL SUCCINATE (ER) 50 MG TAB.ER.24H PO SCH (21:18)
[2023-10-17] MEDS: FAMOTIDINE 20 MG TAB PO SCH (21:18)
[2023-10-17] MEDS: SYMBICORT 160-4.5 MCG INHALER INHALATION SCH (21:26)
[2023-10-17] MEDS: HEPARIN SODIUM,PORCINE 5,000 UNIT/ML 1 ML VIAL SQ SCH (21:33)
[2023-10-17] MEDS: FUROSEMIDE 10 MG/ML 2 ML VIAL IV SCH (23:02)
[2023-10-17] MEDS: IPRATROPIUM-ALBUTEROL 3 ML NEB INHALATION PRN (23:47)
--- NOTE | 2023-10-18 05:17 | P.CNPUL ---
History of Present Illness Consult date: 10/18/23 Requesting physician: Júnior Mtz Reason for consult: COPD Chief complaint: Shortness of breath History of present illness: Patient is a 64-year-old white female with past medical history significant for chronic hypoxemic respiratory failure, normally maintained on 5 L/min nasal cannula at home, COPD, heart failure, severe aortic valve stenosis with previous balloon valvuloplasty, coronary artery disease with previous PCI/stenting to the RCA, hypertension, hyperlipidemia, obesity, back pain, among other things. She has had multiple hospitalizations with similar presentation. She was just recently admitted with a combination of COPD/CHF exacerbation, and in fact was discharged less than 24 hours prior to coming back to the emergency department yesterday. She does now have a BiPAP device at home, however, compliance may be an issue. She states that she had trouble setting up the device. She was very short of breath overnight. There is a persistent cough, which is congested but nonproductive. No fevers. Denies chest pain. Lower extremity swelling is improved from baseline. Reports compliance with Lasix. On arrival to the emergency department, she was noted to be in respiratory distress and lethargic. She was found to be hypoxic with a SpO2 of 71% on 8 L high flow nasal cannula. She was placed on BiPAP with settings 12/6 and FiO2 of 40%. VBG shows a pCO2 of 81 and pH of 7.29. Chest x-ray demonstrates interstitial and patchy opacities in the mid and lower lung elkins bilaterally, superimposed on COPD. Likely representing interstitial pulmonary edema, however, bibasilar infiltrates could not be completely excluded. NT proBNP 15,800. CBC: WBC count 21.2, hemoglobin 9.6, hematocrit 32.7, platelets 491. CMP: Sodium 143, potassium 3.5, chloride 98, serum bicarb 38, BUN 30, creatinine 0.75, glucose 208. Lactic was 3 and down to 1.4. LFTs not elevated. Troponin 0.082, 0.23, and 0.24 respectively. EKG showing normal sinus rhythm with frequent PVCs and left axis deviation. Minimal ST depressions in leads V5 and V6, but overall nondiagnostic for acute ischemia. Patient is currently resting comfortably on BiPAP with above- mentioned settings. She is generating tidal volumes of around 350 and her respiratory rate of 18. She is alert and oriented x 3. No signs of CO2 narcosis. Overall, no new complaints other than what was mentioned, and some intermittent liquid diarrhea. Denies any nausea, vomiting, abdominal pain, bloody bowel movements or melena. She has been on antibiotics while previously hospitalized. C. difficile was negative. She is afebrile. She is again started empirically on a combination of azithromycin and Zosyn in the emergency department. She is also restarted on Lasix 20 mg twice daily. Prognosis guarded. Review of Systems REVIEW OF SYSTEMS: CONSTITUTIONAL: Denies any recent significant weight loss or weight gain. EYES: Denies change in vision. EARS, NOSE, MOUTH, THROAT: Denies headaches, denies sore throat. CARDIOVASCULAR: Denies chest pain, palpitations or syncopal episodes. RESPIRATORY: See HPI GASTROINTESTINAL: See HPI GENITOURINARY: Denies hematuria, denies infections. MUSKULOSKELETAL: Denies pain, denies swelling. INTEGUMENTARY: Denies rash, denies eczema. NEUROLOGICAL: Denies recent memory loss, no recent seizure activity. PSYCHIATRIC: Denies anxiety, denies depression. HEMATOLOGIC/LYMPHATIC: Denies anemia, denies enlarged lymph node Past Medical History Past Medical History: Coronary Artery Disease (CAD), Chest Pain / Angina, COPD, Myocardial Infarction (NH), Respiratory Disorder Additional Past Medical History / Comment(s): Chronic hypercapnic respiratory failure, home oxygen at 5L/NC, bipap at night, tracheobronchitis, severe bicuspid aortic valve stenosis, chronic low back pain, DJD Last Myocardial Infarction Date:: 04/2023 History of Any Multi-Drug Resistant Organisms: None Reported Past Surgical History: Breast Surgery, Heart Catheterization With Stent, Tubal Ligation Additional Past Surgical History / Comment(s): Bilateral breast reductions, bilateral cataract removals. Past Anesthesia/Blood Transfusion Reactions: No Reported Reaction Date of Last Stent Placement:: 04/2023 Past Psychological History: Anxiety, Depression Additional Psychological History / Comment(s): Pt resides with her spouse. She has home oxygen and a nebulizer. She chooses not to drive, her spouse drives. She had [facility] after last hospitalization but no longer coming to home. Smoking Status: Former smoker Past Alcohol Use History: None Reported Additional Past Alcohol Use History / Comment(s): Pt started smoking as a teen and quit within the last 5 years ago. She was a 2 ppd smoker. Past Drug Use History: None Reported - Past Family History Father History Unknown: Yes Mother Family Medical History: Congestive Heart Failure (CHF), Diabetes Mellitus Medications and Allergies Home Medications Medication Instructions Recorded Confirmed Type Albuterol Inhaler [Ventolin Hfa 2 puff INHALATION RT-Q4H PRN 04/09/22 10/17/23 History Inhaler] Atorvastatin [Lipitor] 40 mg PO HS 04/09/22 10/17/23 History Aspirin 81 mg PO DAILY 30 Days #30 tab 04/12/22 10/17/23 Rx Budesonide/Formoterol Fumarate 2 puff INHALATION RT-BID 07/13/22 10/17/23 His tory [Symbicort 160-4.5 Mcg Inhaler] Ipratropium-Albuterol Nebulize 3 ml INHALATION RT-QID PRN 09/23/22 10/17/23 History [Duoneb 0.5 mg-3 mg/3 ml Soln] Dapagliflozin Propanediol [Farxiga] 5 mg PO DAILY 11/19/22 10/17/23 History Yupelri 175mcg/3ml 175 mcg INHALATION RT-DAILY 11/19/22 10/17/23 History Potassium Chloride ER [K-Dur 20] 20 meq PO BID #60 tab 08/09/23 10/17/23 Rx Metoprolol Succinate (ER) [Toprol 50 mg PO BID tab 09/20/23 10/17/23 Rx XL] Capsaicin Cream [Trixaicin Cream] 1 applic TOPICAL TID PRN 10/12/23 10/17/23 History LORazepam [Ativan] 0.25 mg PO DAILY PRN 10/12/23 10/17/23 History Sertraline [Zoloft] 150 mg PO DAILY 10/12/23 10/17/23 History busPIRone HCl [Buspar] 5 mg PO BID 10/12/23 10/17/23 History Furosemide [Lasix] 40 mg PO DAILY tab 10/16/23 10/17/23 Rx predniSONE 5 mg PO DAILY #0 10/16/23 10/17/23 Rx Cefdinir 300 mg PO DIRECTED 10/17/23 10/17/23 History predniSONE 35 mg PO DIRECTED 10/17/23 10/17/23 History Allergies Allergy/AdvReac Type Severity Reaction Status Date / Time No Known Allergies Allergy Verified 10/17/23 13:15 Physical Exam Vitals: Vital Signs Temp Pulse Pulse Resp BP BP Pulse Ox 10/18/23 03:55 77 10/18/23 03:45 71 10/17/23 23:58 61 10/17/23 23:48 62 10/17/23 23:00 98.2 F 78 19 121/78 96 10/17/23 22:00 85 20 97 10/17/23 21:44 84 10/17/23 21:26 83 10/17/23 21:00 88 20 115/74 97 10/17/23 20:50 10/17/23 19:06 90 20 128/78 100 10/17/23 19:01 10/17/23 15:17 85 16 10/17/23 15:05 89 20 10/17/23 14:55 89 20 108/73 94 L 10/17/23 13:53 84 18 125/85 96 10/17/23 13:08 10/17/23 13:04 91 24 10/17/23 12:45 10/17/23 12:44 10/17/23 12:41 20 10/17/23 12:39 99 17 10/17/23 12:21 97.9 F 115 H 36 H 71 L FiO2 10/18/23 03:55 10/18/23 03:45 10/17/23 23:58 10/17/23 23:48 40 10/17/23 23:00 40 10/17/23 22:00 10/17/23 21:44 10/17/23 21:26 10/17/23 21:00 10/17/23 20:50 40 10/17/23 19:06 10/17/23 19:01 40 10/17/23 15:17 10/17/23 15:05 40 10/17/23 14:55 10/17/23 13:53 10/17/23 13:08 40 10/17/23 13:04 10/17/23 12:45 50 10/17/23 12:44 50 10/17/23 12:41 50 10/17/23 12:39 10/17/23 12:21 Intake and Output 10/17/23 10/17/23 10/18/23 14:59 22:59 06:59 Other: Voiding Method Bedpan Weight 104.326 kg 104.326 kg GENERAL EXAM: Alert, 64-year-old obese white female, currently on BiPAP, fairly comfortable in no apparent distress. HEAD: Normocephalic and atraumatic EYES: Normal reaction of pupils, equal size. NOSE: Clear with pink turbinates. THROAT: No erythema or exudates. NECK: No masses, no JVD. CHEST: No chest wall deformity. LUNGS: Equal air entry, diminished bilaterally, with end expiratory wheezes heard throughout. On BiPAP with current settings 12/6 and FiO2 of 40%. Generating adequate tidal volumes. No conversational dyspnea or accessory muscle use.. CVS: S1 and S2 normal with no audible murmur, regular rhythm. No extra heart sounds ABDOMEN: No hepatosplenomegaly, active bowel sounds, no guarding or rigidity. SPINE: No scoliosis or deformity SKIN: No rashes CENTRAL NERVOUS SYSTEM: No focal deficits, tone is normal in all 4 extremities. EXTREMITIES: There is no peripheral edema, clubbing, or cyanosis. Peripheral pulses are intact. Results - Laboratory Findings CBC and BMP: 10/17/23 12:53 10/17/23 12:53 PT/INR, D-dimer PT 10.6 sec (10.0-12.5) 10/17/23 12:53 INR 1.0 (<1.2) 10/17/23 12:53 Abnormal lab findings: Abnormal Labs 10/17/23 10/17/23 10/17/23 12:53 12:53 12:53 WBC 21.2 H RBC 3.22 L Hgb 9.6 L Hct 32.7 L MCV 101.5 H MCHC 29.5 L Plt Count 491 H APTT 20.6 L VBG pH VBG pCO2 VBG HCO3 Carbon Dioxide 38 H BUN 30 H Glucose 208 H POC Glucose (mg/dL) Plasma Lactic Acid Ruslan Troponin I Total Protein 6.1 L 10/17/23 10/17/23 10/17/23 12:53 12:53 12:53 WBC RBC Hgb Hct MCV MCHC Plt Count APTT VBG pH 7.29 L VBG pCO2 81 H* VBG HCO3 39 H Carbon Dioxide BUN Glucose POC Glucose (mg/dL) Plasma Lactic Acid Ruslan 3.0 H* Troponin I 0.082 H* Total Protein 10/17/23 10/17/23 10/18/23 18:11 18:14 00:42 WBC RBC Hgb Hct MCV MCHC Plt Count APTT VBG pH VBG pCO2 VBG HCO3 Carbon Dioxide BUN Glucose POC Glucose (mg/dL) 118 H Plasma Lactic Acid Ruslan Troponin I 0.226 H* 0.238 H* Total Protein - Diagnostic Findings Chest x-ray: image reviewed Assessment and Plan Assessment: Acute on chronic hypoxemic and hypercapnic respiratory failure, likely multifactorial secondary to a combination of acute COPD exacerbation and exacerbation of heart failure with reduced ejection fraction. Chest x-ray demonstrates interstitial and patchy opacities in the mid and lower lung elkins bilaterally, superimposed on COPD. Likely representing interstitial pulmonary edema, however, bibasilar infiltrates could not be completely excluded. NT proBNP 15,800. Severe oxygen and steroid dependent, chronic obstructive pulmonary disease, normally maintained on 5 L/min nasal cannula Coronary artery disease, with history of previous PCI/stenting to the RCA Ischemic cardiomyopathy with ejection fraction of 25 to 30%. Severe aortic stenosis with history of previous aortic valvuloplasty. Elevated troponins, possible type II NH, secondary to supply/demand mismatch Acute leukocytosis Chronic anemia History of shingles History of hyperlipidemia History of hypertension Chronic low back pain Obesity, with a BMI of 39.5 kg/m Prior history of heavy tobacco use. Plan: Patient's medications, labs, chest x-ray reviewed Continue on BiPAP with current settings Reportedly does have a home BiPAP device, however, compliance has been an issue. Reportedly had an a device outside dealer sales representative coming to the house yesterday to help set it up Start patient on combination of DuoNebs [id number], budesonide inhalation, formoterol inhalation, and start patient on IV Solu-Medrol Patient resumed on empiric antibiotics in the form of Zosyn and azithromycin. Recheck procalcitonin level Continue IV diuretics Heparin for DVT prophylaxis Pepcid for GI prophylaxis We will continue to follow I have personally seen and examined the patient, performed the documentation and the assessment and plan as written. Number of minutes spent on the visit:20 Time with Patient: Greater than 30
[2023-10-18 06:03] LABS: Glucose,Whole Blood 181 mg/dL (70-110)
[2023-10-18] MEDS: ASPIRIN 81 MG PO SCH (08:03)
[2023-10-18] MEDS: SERTRALINE 50 MG TAB PO SCH (08:04)
[2023-10-18] MEDS: FORMOTEROL FUMARATE 20 MCG/2 ML NEBU INHALATION SCH (08:38)
[2023-10-18] MEDS: BUDESONIDE 1 MG/2 ML NEBU INHALATION SCH (08:38)
[2023-10-18] MEDS: AZITHROMYCIN 500 MG in SODIUM CHLORIDE 0.9% 250 ML IVPB SCH ×2 (10:28→12:53)
[2023-10-18 10:37] LABS: Basophils # (A) 0.1 k/uL (0-0.2); Basophils % (A) 0 %; Eosinophils % (A) 0 %; HCT 28.1 % (34.0-46.0); HGB 8.8 gm/dL (11.4-16.0); Hypochromasia Marked; Lymphocytes # (A) 0.6 k/uL (1.0-4.8); Lymphocytes % (A) 4 %; MCH 31.2 pg (25.0-35.0); MCHC 31.4 g/dL (31.0-37.0); MCV 99.3 fL (80.0-100.0); Mean Platelet Volume 8.4; Monocytes # (A) 0.4 k/uL (0-1.0); Monocytes % (A) 3 %; Neutrophils # (A) 13.6 k/uL (1.3-7.7); Neutrophils % (A) 93 %; Platelet Count 412 k/uL (150-450); RBC 2.83 m/uL (3.80-5.40); RDW 14.3 % (11.5-15.5); WBC 14.7 k/uL (3.8-10.6)
[2023-10-18 10:54] LABS: African American GFR (CKD) 89 (>60 ml/min/1.73 sqM); Blood Urea Nitrogen 27 mg/dL (7-17); Calcium 8.6 mg/dL (8.4-10.2); Chloride 90 mmol/L (98-107); Glucose 239 mg/dL (74-99); Magnesium 1.9 mg/dL (1.6-2.3); Non-African American GFR(CKD) 77 (>60 ml/min/1.73 sqM); Phosphorus 3.2 mg/dL (2.5-4.5); Potassium 3.7 mmol/L (3.5-5.1); Sodium 139 mmol/L (137-145)
[2023-10-18 10:59] LABS: Anion Gap 7 mmol/L
[2023-10-18 11:07] LABS: Carbon Dioxide 42 mmol/L (22-30)
--- NOTE | 2023-10-18 11:37 | P.CRDCN ---
History of Present Illness History of present illness: HISTORY OF PRESENT ILLNESS: This is a 63-year-old female with a past medical history significant for coronary artery disease with previous stenting to the RCA, COPD on home oxygen, obstructive sleep apnea with CPAP, bicuspid aortic valve with severe stenosis status post balloon aortic valvuloplasty in July 2023, hypertension, hyperlipidemia, SVT, and former nicotine dependence. Patient follows in the office with Dr. Hnikle. We have been asked to see the patient in consultation for HF. Patient examined at the bedside. The patient was just discharged home on October 15 after being hospitalized for 4 days secondary to respiratory failure. She presented back to the hospital due to SOB. She is on bipap at the time of examination. She denies chest pain or pressure. She continues to report SOB. DIAGNOSTICS: - EKG reveals sinus mechanism with PVCs - Chest xray interstitial and patchy opacities in the mid and lower lung superimposed on COPD. Consider bibasilar infiltrates versus atypical interstitial pulmonary edema. - Laboratory data: WBC 21.2. Hemoglobin 9.6. Platelet count 491. Sodium 143. Potassium 3.5. BUN 30. Creatinine 0.75. Troponin 0.082. 0.226. 0.238 proBNP 15,800 - Current home cardiac medications include metoprolol succinate 50 mg twice a day, Lasix 40 mg daily, Farxiga 5 mg daily, Lipitor, Lipitor 40 mg at night, aspirin 81 mg daily. - Echocardiogram completed in July 2023 revealed ejection fraction 60 to 65% - Cardiac catheterization history: 07/24/2023 revealed mid LAD 40 to 50% stenosis and patent proximal RCA stenting. REVIEW OF SYSTEMS: At the time of my exam: CONSTITUTIONAL: Denies fever or chills. HEENT: Denies blurred vision, vision changes, or eye pain. Denies hemoptysis CARDIOVASCULAR: Denies chest pain. Denies orthopnea. Denies PND. Denies palpitations RESPIRATORY: Denies shortness of breath. GASTROINTESTINAL: Denies abdominal pain. Denies nausea or vomiting. HEMATOLOGIC: Denies bleeding disorders. GENITOURINARY: Denies any blood in urine. SKIN: Denies pruitis. Denies rash. PHYSICAL EXAM: VITAL SIGNS: Reviewed. GENERAL: Well-developed in no acute distress. HEENT: Head is normocephalic. Pupils are equal, round. Sclerae anicteric. Mucous membranes of the mouth are moist. Neck supple. No JVD or thyromegaly LUNGS: Respirations even and unlabored. Lungs diminished with mild expiratory wheezing. HEART: Regular rate and rhythm. S1 and S2 heard. + systolic murmur ABDOMEN: Soft. Nondistended. Nontender. EXTREMITIES: Normal range of motion. No clubbing or cyanosis. Peripheral pulses intact. No lower extremity edema NEUROLOGIC: Awake and alert. Oriented x 3. ASSESSMENT: Shortness of breath COPD exacerbation Acute on chronic heart failure with preserved EF, 60 to 65% in July 2023 Chronic hypoxic respiratory failure on home oxygen Coronary artery disease with previous stenting of the RCA Elevated troponins due to type II PA secondary to oxygen supply and demand mismatch secondary to CHF Severe aortic stenosis status post balloon aortic valvuloplasty, July 2023 Hypertension Hyperlipidemia Obstructive sleep apnea with CPAP use Former nicotine dependence Obesity: BMI 37.8 History of medical noncompliance PLAN: No need to repeat echocardiogram Continue current cardiac medications Pulmonary following. Continue IV steroids. Continue IV lasix Daily weights, accurate intake and output, and monitoring of kidney function Multiple repeat hospitalizations. Progression could be related to worsened hear t failure and valvular disease vs progressive COPD. If more likely related to aortic stenosis, unclear if TAVR would be an option with valve annulus too big for recommended valves. Have had multiple discussions with family and patient regarding outpt followup or evaluation at a tertiary center and have been unable. Further recommendations pending patient course Nurse practitioner note has been reviewed by physician. Signing provider agrees with the documented findings, assessment, and plan of care documented by [employer] as a scribe. Past Medical History Past Medical History: Coronary Artery Disease (CAD), Chest Pain / Angina, COPD, Myocardial Infarction (PA), Respiratory Disorder Additional Past Medical History / Comment(s): Chronic hypercapnic respiratory failure, home oxygen at 5L/NC, bipap at night, tracheobronchitis, severe bicuspid aortic valve stenosis, chronic low back pain, DJD Last Myocardial Infarction Date:: 04/2023 History of Any Multi-Drug Resistant Organisms: None Reported Past Surgical History: Breast Surgery, Heart Catheterization With Stent, Tubal Ligation Additional Past Surgical History / Comment(s): Bilateral breast reductions, bilateral cataract removals. Past Anesthesia/Blood Transfusion Reactions: No Reported Reaction Date of Last Stent Placement:: 04/2023 Past Psychological History: Anxiety, Depression Additional Psychological History / Comment(s): Pt resides with her spouse. She has home oxygen and a nebulizer. She chooses not to drive, her spouse drives. She had [facility] after last hospitalization but no longer coming to home. Smoking Status: Former smoker Past Alcohol Use History: None Reported Additional Past Alcohol Use History / Comment(s): Pt started smoking as a teen and quit within the last 5 years ago. She was a 2 ppd smoker. Past Drug Use History: None Reported - Past Family History Father History Unknown: Yes Mother Family Medical History: Congestive Heart Failure (CHF), Diabetes Mellitus Medications and Allergies Home Medications Medication Instructions Recorded Confirmed Type Albuterol Inhaler [Ventolin Hfa 2 puff INHALATION RT-Q4H PRN 04/09/22 10/17/23 History Inhaler] Atorvastatin [Lipitor] 40 mg PO HS 04/09/22 10/17/23 History Aspirin 81 mg PO DAILY 30 Days #30 tab 04/12/22 10/17/23 Rx Budesonide/Formoterol Fumarate 2 puff INHALATION RT-BID 07/13/22 10/17/23 History [Symbicort 160-4.5 Mcg Inhaler] Ipratropium-Albuterol Nebulize 3 ml INHALATION RT-QID PRN 09/23/22 10/17/23 History [Duoneb 0.5 mg-3 mg/3 ml Soln] Dapagliflozin Propanediol [Farxiga] 5 mg PO DAILY 11/19/22 10/17/23 History Yupelri 175mcg/3ml 175 mcg INHALATION RT-DAILY 11/19/22 10/17/23 History Potassium Chloride ER [K-Dur 20] 20 meq PO BID #60 tab 08/09/23 10/17/23 Rx Metoprolol Succinate (ER) [Toprol 50 mg PO BID tab 09/20/23 10/17/23 Rx XL] Capsaicin Cream [Trixaicin Cream] 1 applic TOPICAL TID PRN 10/12/23 10/17/23 History LORazepam [Ativan] 0.25 mg PO DAILY PRN 10/12/23 10/17/23 History Sertraline [Zoloft] 150 mg PO DAILY 10/12/23 10/17/23 History busPIRone HCl [Buspar] 5 mg PO BID 10/12/23 10/17/23 History Furosemide [Lasix] 40 mg PO DAILY tab 10/16/23 10/17/23 Rx predniSONE 5 mg PO DAILY #0 10/16/23 10/17/23 Rx Cefdinir 300 mg PO DIRECTED 10/17/23 10/17/23 History predniSONE 35 mg PO DIRECTED 10/17/23 10/17/23 History Allergies Allergy/AdvReac Type Severity Reaction Status Date / Time No Known Allergies Allergy Verified 10/17/23 13:15 Physical Exam Vitals: Vital Signs Temp Pulse Pulse Resp BP BP Pulse Ox 10/18/23 04:00 98.3 F 90 19 127/70 94 L 10/18/23 03:55 77 10/18/23 03:45 71 10/17/23 23:58 61 10/17/23 23:48 62 10/17/23 23:00 98.2 F 78 19 121/78 96 10/17/23 22:00 85 20 97 10/17/23 21:44 84 10/17/23 21:26 83 10/17/23 21:00 88 20 115/74 97 10/17/23 20:50 10/17/23 19:06 90 20 128/78 100 10/17/23 19:01 10/17/23 15:17 85 16 10/17/23 15:05 89 20 10/17/23 14:55 89 20 108/73 94 L 10/17/23 13:53 84 18 125/85 96 10/17/23 13:08 10/17/23 13:04 91 24 10/17/23 12:45 10/17/23 12:44 10/17/23 12:41 20 10/17/23 12:39 99 17 10/17/23 12:21 97.9 F 115 H 36 H 71 L FiO2 10/18/23 04:00 40 10/18/23 03:55 10/18/23 03:45 10/17/23 23:58 10/17/23 23:48 40 10/17/23 23:00 40 10/17/23 22:00 10/17/23 21:44 10/17/23 21:26 10/17/23 21:00 10/17/23 20:50 40 10/17/23 19:06 10/17/23 19:01 40 10/17/23 15:17 10/17/23 15:05 40 10/17/23 14:55 10/17/23 13:53 10/17/23 13:08 40 10/17/23 13:04 10/17/23 12:45 50 10/17/23 12:44 50 10/17/23 12:41 50 10/17/23 12:39 10/17/23 12:21 Intake and Output 10/17/23 10/18/23 10/18/23 22:59 06:59 14:59 Other: Voiding Method Bedpan # Voids 1 # Bowel Movements 1 Weight 100 kg Results 10/18/23 08:54 10/18/23 08:54 Cardiac Enzymes 10/17/23 10/17/23 10/17/23 Range/Units 12:53 12:53 18:11 AST 30 (14-36) U/L Troponin I 0.082 H* 0.226 H* (0.000-0.034) ng/mL 10/18/23 Range/Units 00:42 AST (14-36) U/L Troponin I 0.238 H* (0.000-0.034) ng/mL Coagulation 10/17/23 Range/Units 12:53 PT 10.6 (10.0-12.5) sec APTT 20.6 L (22.0-30.0) sec CBC 10/17/23 Range/Units 12:53 WBC 21.2 H (3.8-10.6) k/uL RBC 3.22 L (3.80-5.40) m/uL Hgb 9.6 L (11.4-16.0) gm/dL Hct 32.7 L (34.0-46.0) % Plt Count 491 H (150-450) k/uL Comprehensive Metabolic Panel 10/17/23 Range/Units 12:53 Sodium 143 (137-145) mmol/L Potassium 3.5 (3.5-5.1) mmol/L Chloride 98 (98-107) mmol/L Carbon Dioxide 38 H (22-30) mmol/L BUN 30 H (7-17) mg/dL Creatinine 0.75 (0.52-1.04) mg/dL Glucose 208 H (74-99) mg/dL Calcium 9.2 (8.4-10.2) mg/dL AST 30 (14-36) U/L ALT 18 (4-34) U/L Alkaline Phosphatase 83 (38-126) U/L Total Protein 6.1 L (6.3-8.2) g/dL Albumin 3.5 (3.5-5.0) g/dL Current Medications Generic Name Dose Route Start Last Admin Trade Name Freq PRN Reason Stop Dose Admin Acetaminophen 650 mg 10/17/23 15:19 Acetaminophen Tab 325 Mg Tab PO Q6HR PRN Mild Pain or Fever > 100.5 Albuterol/Ipratropium 3 ml 10/17/23 14:01 10/18/23 03:44 Ipratropium-Albuterol 3 Ml Neb INHALATION 3 ml RT-Q2H PRN Administration Shortness Of Breath Or Wheezing Albuterol/Ipratropium 3 ml 10/17/23 16:00 10/17/23 21:26 Ipratropium-Albuterol 3 Ml Neb INHALATION 3 ml RT-QID CHANTEL Administration Aspirin 81 mg 10/18/23 09:00 Aspirin 81 Mg PO DAILY CHANTEL Atorvastatin Calcium 40 mg 10/17/23 21:00 10/17/23 21:17 Atorvastatin 40 Mg Tab PO 40 mg HS CHANTEL Administration Budesonide 1 mg 10/18/23 08:00 Budesonide 1 Mg/2 Ml Nebu INHALATION RT-BID CHANTEL Buspirone HCl 5 mg 10/17/23 21:00 10/17/23 21:17 Buspirone Hcl 5 Mg Tab PO 5 mg BID CHANTEL Administration Calcium Carbonate/Glycine 1,000 mg 10/17/23 15:19 Calcium Carbonate 500 Mg Chewable PO Q4HR PRN Dyspepsia Dextrose/Water 25 ml 10/17/23 15:27 Dextrose 50% Syringe 50 Ml IVP PER PROTOCOL PRN Hypoglycemia Protocol Dextrose/Water 50 ml 10/17/23 15:27 Dextrose 50% Syringe 50 Ml IVP PER PROTOCOL PRN Hypoglycemia Protocol Docusate Sodium 100 mg 10/17/23 15:19 Docusate 100 Mg Cap PO BID PRN Constipation Famotidine 20 mg 10/17/23 21:00 10/17/23 21:18 Famotidine 20 Mg Tab PO 20 mg BID CHANTEL Administration Formoterol Fumarate 20 mcg 10/18/23 08:00 Formoterol Fumarate 20 Mcg/2 Ml Nebu INHALATION RT-BID CHANTEL Furosemide 20 mg 10/17/23 21:00 10/17/23 23:02 Furosemide 10 Mg/Ml 2 Ml Vial IV 20 mg Q12HR CHANTEL Administration Heparin Sodium (Porcine) 5,000 unit 10/17/23 16:00 10/17/23 23:02 Heparin Sodium,Porcine 5,000 Unit/Ml 1 Ml Vial SQ 5,000 unit Q8HR CHANTEL Administration Piperacillin Sod/Tazobactam 100 mls @ 25 mls/hr 10/17/23 16:00 10/17/23 23:03 Sod 3.375 gm/ Sodium Chloride IVPB 25 mls/hr Q8HR CHANTEL Administration Protocol Azithromycin 500 mg/ Sodium 250 mls @ 250 mls/hr 10/18/23 09:00 Chloride IVPB 10/21/23 09:59 DAILY CHANTEL Protocol Insulin Aspart 0 unit 10/17/23 17:30 10/18/23 06:10 Insulin Aspart (Novolog) 100 Unit/Ml Vial SQ 2 unit AC-TID CHANTEL Administration Protocol Lactulose 20 gm 10/17/23 15:19 Lactulose 20 Gm/30 Ml Cup PO DAILY PRN Constipation Lorazepam 0.25 mg 10/17/23 15:23 10/17/23 21:17 Lorazepam 0.5 Mg Tab PO 0.25 mg DAILY PRN Administration Anxiety Magnesium Hydroxide 2,400 mg 10/17/23 15:19 Magnesium Hydroxide 2,400 Mg/30 Ml Cup PO DAILY PRN Constipation Methylprednisolone Sodium Succinate 60 mg 10/17/23 18:00 10/18/23 06:10 Methylprednisolone Sod Succi 125 Mg/2 Ml Vial IV 60 mg Q6HR CHANTEL Administration Metoprolol Succinate 50 mg 10/17/23 21:00 10/17/23 21:18 Metoprolol Succinate (Er) 50 Mg Tab.Er.24h PO 50 mg BID CHANTEL Administration Naloxone HCl 0.2 mg 10/17/23 14:01 Naloxone 0.4 Mg/Ml 1 Ml Vial IVP Q2M PRN Opioid Reversal Patient's Own ( 175 mcg 10/18/23 08:00 10/18/23 07:43 Yupelri 175mcg/3ml INHALATION Not Given 175 Mcg) RT-DAILY CHANTEL Ondansetron HCl 4 mg 10/17/23 15:19 Ondansetron 4 Mg/2 Ml Vial IVP Q8HR PRN Nausea And Vomiting Sertraline HCl 150 mg 10/18/23 09:00 Sertraline 50 Mg Tab PO DAILY CHANTEL Intake and Output 10/17/23 10/18/23 10/18/23 22:59 06:59 14:59 Other: Voiding Method Bedpan # Voids 1 # Bowel Movements 1 Weight 100 kg 10/17/23 12:53 10/17/23 12:53
[2023-10-18 11:44] LABS: Glucose,Whole Blood 303 mg/dL (70-110)
--- NOTE | 2023-10-18 12:02 | P.PN ---
Subjective Progress Note Date: 10/18/23 Principal diagnosis: Acute on chronic hypoxic hypercapnic respiratory failure Ms. Porras was seen and examined. She was back on her 5 L home oxygen. Still endorses dyspnea and does not feel close to her baseline. Repeat x-ray will be obtained today. Objective - Vital Signs Vital signs: Vital Signs Temp 97.7 F 10/18/23 07:58 Pulse 65 10/18/23 11:04 Resp 23 10/18/23 11:04 BP 128/76 10/18/23 11:04 Pulse Ox 96 10/18/23 11:04 FiO2 40 10/18/23 11:04 Intake & Output 10/17/23 10/18/23 10/18/23 18:59 06:59 18:59 Intake Total 600 Balance 600 Weight 104.326 kg 100 kg Intake: Oral 600 Other: Voiding Method Bedpan Bedside Commode Bedpan # Voids 1 # Bowel Movements 1 1 - Exam Vitals: Reviewed General: No acute distress Cardiovascular: RRR, S1-S2 Lungs: Breath sounds equal, diminished with mild bibasilar crackles Extremities: 1+ lower extremity edema - Labs CBC & Chem 7: 10/18/23 08:54 10/18/23 08:54 Labs: Abnormal Lab Results - Last 24 Hours (Table) 10/17/23 10/17/23 10/17/23 Range/Units 12:53 12:53 12:53 WBC 21.2 H (3.8-10.6) k/uL RBC 3.22 L (3.80-5.40) m/uL Hgb 9.6 L (11.4-16.0) gm/dL Hct 32.7 L (34.0-46.0) % MCV 101.5 H (80.0-100.0) fL MCHC 29.5 L (31.0-37.0) g/dL Plt Count 491 H (150-450) k/uL Neutrophils # (1.3-7.7) k/uL Lymphocytes # (1.0-4.8) k/uL APTT 20.6 L (22.0-30.0) sec VBG pH (7.31-7.41) VBG pCO2 (37-51) mmHg VBG HCO3 (24-28) mmol/L Chloride (98-107) mmol/L Carbon Dioxide 38 H (22-30) mmol/L BUN 30 H (7-17) mg/dL Glucose 208 H (74-99) mg/dL POC Glucose (mg/dL) (70-110) mg/dL Plasma Lactic Acid Ruslan (0.7-2.0) mmol/L Troponin I (0.000-0.034) ng/mL Total Protein 6.1 L (6.3-8.2) g/dL 10/17/23 10/17/23 10/17/23 Range/Units 12:53 12:53 12:53 WBC (3.8-10.6) k/uL RBC (3.80-5.40) m/uL Hgb (11.4-16.0) gm/dL Hct (34.0-46.0) % MCV (80.0-100.0) fL MCHC (31.0-37.0) g/dL Plt Count (150-450) k/uL Neutrophils # (1.3-7.7) k/uL Lymphocytes # (1.0-4.8) k/uL APTT (22.0-30.0) sec VBG pH 7.29 L (7.31-7.41) VBG pCO2 81 H* (37-51) mmHg VBG HCO3 39 H (24-28) mmol/L Chloride (98-107) mmol/L Carbon Dioxide (22-30) mmol/L BUN (7-17) mg/dL Glucose (74-99) mg/dL POC Glucose (mg/dL) (70-110) mg/dL Plasma Lactic Acid Ruslan 3.0 H* (0.7-2.0) mmol/L Troponin I 0.082 H* (0.000-0.034) ng/mL Total Protein (6.3-8.2) g/dL 10/17/23 10/17/23 10/18/23 Range/Units 18:11 18:14 00:42 WBC (3.8-10.6) k/uL RBC (3.80-5.40) m/uL Hgb (11.4-16.0) gm/dL Hct (34.0-46.0) % MCV (80.0-100.0) fL MCHC (31.0-37.0) g/dL Plt Count (150-450) k/uL Neutrophils # (1.3-7.7) k/uL Lymphocytes # (1.0-4.8) k/uL APTT (22.0-30.0) sec VBG pH (7.31-7.41) VBG pCO2 (37-51) mmHg VBG HCO3 (24-28) mmol/L Chloride (98-107) mmol/L Carbon Dioxide (22-30) mmol/L BUN (7-17) mg/dL Glucose (74-99) mg/dL POC Glucose (mg/dL) 118 H (70-110) mg/dL Plasma Lactic Acid Ruslan (0.7-2.0) mmol/L Troponin I 0.226 H* 0.238 H* (0.000-0.034) ng/mL Total Protein (6.3-8.2) g/dL 10/18/23 10/18/23 10/18/23 Range/Units 05:46 08:54 08:54 WBC 14.7 H (3.8-10.6) k/uL RBC 2.83 L (3.80-5.40) m/uL Hgb 8.8 L (11.4-16.0) gm/dL Hct 28.1 L (34.0-46.0) % MCV (80.0-100.0) fL MCHC (31.0-37.0) g/dL Plt Count (150-450) k/uL Neutrophils # 13.6 H (1.3-7.7) k/uL Lymphocytes # 0.6 L (1.0-4.8) k/uL APTT (22.0-30.0) sec VBG pH (7.31-7.41) VBG pCO2 (37-51) mmHg VBG HCO3 (24-28) mmol/L Chloride 90 L (98-107) mmol/L Carbon Dioxide 42 H* (22-30) mmol/L BUN 27 H (7-17) mg/dL Glucose 239 H (74-99) mg/dL POC Glucose (mg/dL) 181 H (70-110) mg/dL Plasma Lactic Acid Ruslan (0.7-2.0) mmol/L Troponin I (0.000-0.034) ng/mL Total Protein (6.3-8.2) g/dL 10/18/23 Range/Units 11:42 WBC (3.8-10.6) k/uL RBC (3.80-5.40) m/uL Hgb (11.4-16.0) gm/dL Hct (34.0-46.0) % MCV (80.0-100.0) fL MCHC (31.0-37.0) g/dL Plt Count (150-450) k/uL Neutrophils # (1.3-7.7) k/uL Lymphocytes # (1.0-4.8) k/uL APTT (22.0-30.0) sec VBG pH (7.31-7.41) VBG pCO2 (37-51) mmHg VBG HCO3 (24-28) mmol/L Chloride (98-107) mmol/L Carbon Dioxide (22-30) mmol/L BUN (7-17) mg/dL Glucose (74-99) mg/dL POC Glucose (mg/dL) 303 H (70-110) mg/dL Plasma Lactic Acid Ruslan (0.7-2.0) mmol/L Troponin I (0.000-0.034) ng/mL Total Protein (6.3-8.2) g/dL Assessment and Plan Plan: # Acute on chronic hypoxic hypercapnic respiratory failure # COPD exacerbation # HFrEF exacerbation # Cannot exclude pneumonia Wean down oxygen as tolerated. IV Lasix 20 mg twice daily. Strict I's and O's and daily weights. Antibiotics with Zosyn and azithromycin. Sputum culture. Follow-up x-ray . Last echo in August showed EF 25 to 30%, mild to moderate AR, severe aortic stenosis. She may have had flash pulmonary edema in the setting of CHF and aortic stenosis. Continue with scheduled and as needed breathing treatments. Steroids with IV Solu-Medrol. # Elevated troponin Likely secondary to demand ischemia from hypoxia. Trend. Cardiology following.. No chest pain. Aspirin and statin. # Unspecified psych disorder Continue home meds # Elevated bicarb Likely secondary to compensation and less likely secondary to Lasix. Will add spironolactone. VTE prophylaxis with subcu heparin GI prophylaxis with Pepcid
[2023-10-18] MEDS: SPIRONOLACTONE 25 MG TAB PO SCH (12:08)
--- NOTE | 2023-10-18 12:49 | XR ---
EXAMINATION TYPE: XR chest 1V portable DATE OF EXAM: 10/18/2023 12:42 PM CLINICAL INDICATION:Female, 63 years old with history of chf; PH[facility] COMPARISON: Chest radiographs from 10/17/2023 TECHNIQUE: XR chest 1V portable Frontal view of the chest. FINDINGS: Lungs/Pleura: There is no evidence of pleural effusion, focal consolidation, or pneumothorax. Pulmonary vascularity: Unremarkable. Heart/mediastinum: Cardiomediastinal silhouette is enlarged and stable. Musculoskeletal: No acute osseous pathology. IMPRESSION: Cardiomegaly and mild pulmonary vascular congestion. Correlate with BNP for congestive heart failure.
[2023-10-18] MEDS: INSULIN DETEMIR (LEVEMIR) 100 UNIT/ML SYR SQ SCH (14:37)
[2023-10-18 16:10] LABS: Glucose,Whole Blood 174 mg/dL (70-110)
[2023-10-18 19:55] LABS: Glucose,Whole Blood 251 mg/dL (70-110)
[2023-10-19 05:59] LABS: Glucose,Whole Blood 187 mg/dL (70-110)
[2023-10-19 10:29] LABS: African American GFR (CKD) >90 (>60 ml/min/1.73 sqM); Blood Urea Nitrogen 25 mg/dL (7-17); Calcium 9.1 mg/dL (8.4-10.2); Chloride 91 mmol/L (98-107); Glucose 149 mg/dL (74-99); Non-African American GFR(CKD) 85 (>60 ml/min/1.73 sqM); Potassium 3.6 mmol/L (3.5-5.1); Sodium 139 mmol/L (137-145)
[2023-10-19 10:35] LABS: Anion Gap 4 mmol/L
[2023-10-19 10:42] LABS: Carbon Dioxide 44 mmol/L (22-30)
[2023-10-19 11:14] LABS: Basophils % (A) 0 %; Eosinophils % (A) 0 %; HCT 29.5 % (34.0-46.0); Hypochromasia Slight; Lymphocytes # (A) 0.8 k/uL (1.0-4.8); Lymphocytes % (A) 5 %; MCH 30.1 pg (25.0-35.0); MCHC 30.4 g/dL (31.0-37.0); MCV 99.1 fL (80.0-100.0); Mean Platelet Volume 8.2; Monocytes # (A) 0.6 k/uL (0-1.0); Monocytes % (A) 4 %; Neutrophils # (A) 15.3 k/uL (1.3-7.7); Neutrophils % (A) 91 %; Platelet Count 379 k/uL (150-450); RBC 2.98 m/uL (3.80-5.40); RDW 14.7 % (11.5-15.5); WBC 16.8 k/uL (3.8-10.6)
[2023-10-19 11:33] LABS: Glucose,Whole Blood 205 mg/dL (70-110)
--- NOTE | 2023-10-19 11:37 | P.PN ---
Subjective Progress Note Date: 10/19/23 Hospital course Ms. Porras is a 63-year-old lady with a medical history significant for COPD on 5 to 6 L home oxygen, severe bicuspid aortic valve stenosis, CAD, ischemic cardiomyopathy with EF 25 to 30%, hypertension and dyslipidemia who presents to the ED with shortness of breath. Patient was just discharged from the facility 1 day ago. Patient was not wearing her BiPAP at home. In the ED patient ABG was consistent with acute on chronic hypoxic and hypercapnic respiratory failure. Patient WBC was also elevated at 21.2. Chest x-ray showed interstitial and patchy opacities in the mid and lower lung superimposed on COPD. Consider bibasilar infiltrates versus atypical interstitial pulmonary edema. Patient being followed by cardiology and pulmonology. Patient started on IV Zosyn. Patient also started on IV Solu-Medrol and breathing treatments. Patient also started on IV Lasix 20 mg IV every 12 hours and spironolactone 25 mg p.o. daily. Repeat chest x-ray on 10/18/2023 showed cardiomegaly and mild pulmonary vascular congestion. Patient symptoms are improving. Patient reports that while she was in the hospital someone did deliver BiPAP with nasal mask which she believes will be more comfortable for her and making her compliant with using BiPAP. Per cardiology patient has a valve annulus too big for recommended valves. Cardiology is recommending TAVR a tertiary care center. I discussed with the coordinator from [facility] who said they are having a doctor at [facility], Dr Danny Ren, evaluate her case. Subjective Patient was seen this morning. She states that she is feeling better. was at bedside. Patient did have a BiPAP mask on. Patient tells me that she will be compliant with BiPAP. 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 Psych - Calm and cooperative Assessment and plan Acute on chronic hypoxic and hypercapnic respiratory failure COPD exacerbation Bilateral pneumonia Acute on chronic systolic heart failure Aortic valve stenosis Continue with IV Lasix 20 mg twice daily and spironolactone 25 mg daily Will need to be cautious with diuretics and avoid hypotension in the setting of aortic valve stenosis Procalcitonin is 0.40 Continue with azithromycin 500 mg daily and IV Zosyn Blood cultures negative to date Continue with IV Solu-Medrol 60 mg every 6 hours Continue breathing treatment Pulmonology cardiology on board This morning WBC slightly elevated at 16.8 likely due to steroids Bicarb is 44 likely due to compensation of the hypercapnia Elevated troponin secondary to heart failure Patient denying any chest pain so unlikely ACS Resume aspirin and statin Unspecified psych disorder Continue home psych meds DVT prophylaxis: Subcu heparin Anticipated discharge place: Home with PACE Objective - Vital Signs Vital signs: Vital Signs Temp 98.0 F 10/19/23 09:27 Pulse 85 10/19/23 09:27 Resp 20 10/19/23 09:27 BP 135/68 10/19/23 09:27 Pulse Ox 90 L 10/19/23 09:27 FiO2 40 10/19/23 08:25 Intake & Output 10/18/23 10/19/23 10/19/23 18:59 06:59 18:59 Intake Total 006 822 9285 Output Total 725 300 Balance 840 -185 1510 Weight 92.5 kg Intake: IV 10 Invasive Line 1 10 Oral 486 [id number] Output: Urine 725 300 Other: Voiding Method Bedside Commode Bedside Commode Bedside Commode Bedpan # Voids 1 # Bowel Movements 300 1 - Labs CBC & Chem 7: 10/19/23 09:03 10/19/23 09:03 Labs: Abnormal Lab Results - Last 24 Hours (Table) 10/18/23 10/18/23 10/18/23 Range/Units 08:54 11:42 16:07 WBC (3.8-10.6) k/uL RBC (3.80-5.40) m/uL Hgb (11.4-16.0) gm/dL Hct (34.0-46.0) % MCHC (31.0-37.0) g/dL Neutrophils # (1.3-7.7) k/uL Lymphocytes # (1.0-4.8) k/uL Chloride (98-107) mmol/L Carbon Dioxide (22-30) mmol/L BUN (7-17) mg/dL Glucose (74-99) mg/dL POC Glucose (mg/dL) 303 H 174 H (70-110) mg/dL Procalcitonin 0.40 H (0.02-0.09) ng/mL 10/18/23 10/19/23 10/19/23 Range/Units 19:54 05:58 09:03 WBC (3.8-10.6) k/uL RBC (3.80-5.40) m/uL Hgb (11.4-16.0) gm/dL Hct (34.0-46.0) % MCHC (31.0-37.0) g/dL Neutrophils # (1.3-7.7) k/uL Lymphocytes # (1.0-4.8) k/uL Chloride 91 L (98-107) mmol/L Carbon Dioxide 44 H* (22-30) mmol/L BUN 25 H (7-17) mg/dL Glucose 149 H (74-99) mg/dL POC Glucose (mg/dL) 251 H 187 H (70-110) mg/dL Procalcitonin (0.02-0.09) ng/mL 10/19/23 10/19/23 Range/Units 09:03 11:32 WBC 16.8 H (3.8-10.6) k/uL RBC 2.98 L (3.80-5.40) m/uL Hgb 9.0 L (11.4-16.0) gm/dL Hct 29.5 L (34.0-46.0) % MCHC 30.4 L (31.0-37.0) g/dL Neutrophils # 15.3 H (1.3-7.7) k/uL Lymphocytes # 0.8 L (1.0-4.8) k/uL Chloride (98-107) mmol/L Carbon Dioxide (22-30) mmol/L BUN (7-17) mg/dL Glucose (74-99) mg/dL POC Glucose (mg/dL) 205 H (70-110) mg/dL Procalcitonin (0.02-0.09) ng/mL Microbiology - Last 24 Hours (Table) 10/17/23 13:05 Blood Culture - Preliminary Blood
--- NOTE | 2023-10-19 11:45 | P.PN ---
Subjective HISTORY OF PRESENT ILLNESS: This is a 63-year-old female with a past medical history significant for coronary artery disease with previous stenting to the RCA, COPD on home oxygen, obstructive sleep apnea with CPAP, bicuspid aortic valve with severe stenosis status post balloon aortic valvuloplasty in July 2023, hypertension, hyperlipidemia, SVT, and former nicotine dependence. Patient follows in the office with Dr. Hinkle. We have been asked to see the patient in consultation for HF. Patient examined at the bedside. The patient was just discharged home on October 15 after being hospitalized for 4 days secondary to respiratory failure. She presented back to the hospital due to SOB. She is on bipap at the time of examination. She denies chest pain or pressure. She continues to report SOB. DIAGNOSTICS: - EKG reveals sinus mechanism with PVCs - Chest xray interstitial and patchy opacities in the mid and lower lung superimposed on COPD. Consider bibasilar infiltrates versus atypical interstitial pulmonary edema. - Laboratory data: WBC 21.2. Hemoglobin 9.6. Platelet count 491. Sodium 143. Potassium 3.5. BUN 30. Creatinine 0.75. Troponin 0.082. 0.226. 0.238 proBNP 15,800 - Current home cardiac medications include metoprolol succinate 50 mg twice a day, Lasix 40 mg daily, Farxiga 5 mg daily, Lipitor, Lipitor 40 mg at night, aspirin 81 mg daily. - Echocardiogram completed in July 2023 revealed ejection fraction 60 to 65% - Cardiac catheterization history: 07/24/2023 revealed mid LAD 40 to 50% stenosis and patent proximal RCA stenting. 10/18 patient seen and examined. Patient feeling somewhat better. She therefore thinks is mostly lung related. Denies any chest pain or pressure. PHYSICAL EXAM: VITAL SIGNS: Reviewed. GENERAL: Well-developed in no acute distress. HEENT: Head is normocephalic. Pupils are equal, round. Sclerae anicteric. Mucous membranes of the mouth are moist. Neck supple. No JVD or thyromegaly LUNGS: Respirations even and unlabored. Lungs diminished with mild expiratory wheezing. HEART: Regular rate and rhythm. S1 and S2 heard. + systolic murmur ABDOMEN: Soft. Nondistended. Nontender. EXTREMITIES: Normal range of motion. No clubbing or cyanosis. Peripheral pulses intact. No lower extremity edema NEUROLOGIC: Awake and alert. Oriented x 3. ASSESSMENT: Shortness of breath COPD exacerbation Acute on chronic heart failure with preserved EF, 60 to 65% in July 2023 Chronic hypoxic respiratory failure on home oxygen Coronary artery disease with previous stenting of the RCA Elevated troponins due to type II OR secondary to oxygen supply and demand mismatch secondary to CHF Severe aortic stenosis status post balloon aortic valvuloplasty, July 2023 Hypertension Hyperlipidemia Obstructive sleep apnea with CPAP use Former nicotine dependence Obesity: BMI 37.8 History of medical noncompliance PLAN: No need to repeat echocardiogram Continue current cardiac medications Pulmonary following. Continue IV steroids. Continue IV lasix Daily weights, accurate intake and output, and monitoring of kidney function Multiple repeat hospitalizations. Progression could be related to worsened heart failure and valvular disease vs progressive COPD. If more likely related to aortic stenosis, unclear if TAVR would be an option with valve annulus too big for recommended valves. Have had multiple discussions with family and patient regarding outpt followup or evaluation at a tertiary center and have been unable. Further recommendations pending patient course Objective - Vital Signs Vital signs: Vital Signs Temp 98.0 F 10/19/23 09:27 Pulse 85 10/19/23 09:27 Resp 20 10/19/23 09:27 BP 135/68 10/19/23 09:27 Pulse Ox 90 L 10/19/23 09:27 FiO2 40 10/19/23 08:25 Intake & Output 10/18/23 10/19/23 10/19/23 18:59 06:59 18:59 Intake Total 892 651 9512 Output Total 725 300 Balance 840 -185 1510 Weight 92.5 kg Intake: IV 10 Invasive Line 1 10 Oral 602 386 [id number] Output: Urine 725 300 Other: Voiding Method Bedside Commode Bedside Commode Bedside Commode Bedpan # Voids 1 # Bowel Movements 300 1 - Labs CBC & Chem 7: 10/19/23 09:03 10/19/23 09:03 Labs: Abnormal Lab Results - Last 24 Hours (Table) 10/18/23 10/18/23 10/18/23 Range/Units 08:54 16:07 19:54 WBC (3.8-10.6) k/uL RBC (3.80-5.40) m/uL Hgb (11.4-16.0) gm/dL Hct (34.0-46.0) % MCHC (31.0-37.0) g/dL Neutrophils # (1.3-7.7) k/uL Lymphocytes # (1.0-4.8) k/uL Chloride (98-107) mmol/L Carbon Dioxide (22-30) mmol/L BUN (7-17) mg/dL Glucose (74-99) mg/dL POC Glucose (mg/dL) 174 H 251 H (70-110) mg/dL Procalcitonin 0.40 H (0.02-0.09) ng/mL 10/19/23 10/19/23 10/19/23 Range/Units 05:58 09:03 09:03 WBC 16.8 H (3.8-10.6) k/uL RBC 2.98 L (3.80-5.40) m/uL Hgb 9.0 L (11.4-16.0) gm/dL Hct 29.5 L (34.0-46.0) % MCHC 30.4 L (31.0-37.0) g/dL Neutrophils # 15.3 H (1.3-7.7) k/uL Lymphocytes # 0.8 L (1.0-4.8) k/uL Chloride 91 L (98-107) mmol/L Carbon Dioxide 44 H* (22-30) mmol/L BUN 25 H (7-17) mg/dL Glucose 149 H (74-99) mg/dL POC Glucose (mg/dL) 187 H (70-110) mg/dL Procalcitonin (0.02-0.09) ng/mL 10/19/23 Range/Units 11:32 WBC (3.8-10.6) k/uL RBC (3.80-5.40) m/uL Hgb (11.4-16.0) gm/dL Hct (34.0-46.0) % MCHC (31.0-37.0) g/dL Neutrophils # (1.3-7.7) k/uL Lymphocytes # (1.0-4.8) k/uL Chloride (98-107) mmol/L Carbon Dioxide (22-30) mmol/L BUN (7-17) mg/dL Glucose (74-99) mg/dL POC Glucose (mg/dL) 205 H (70-110) mg/dL Procalcitonin (0.02-0.09) ng/mL Microbiology - Last 24 Hours (Table) 10/17/23 13:05 Blood Culture - Preliminary Blood
--- NOTE | 2023-10-19 11:54 | P.PN ---
Subjective Progress Note Date: 10/19/23 Principal diagnosis: Shortness of breath. Patient is a 64-year-old white female with past medical history significant for chronic hypoxemic respiratory failure, normally maintained on 5 L/min nasal cannula at home, COPD, heart failure, severe aortic valve stenosis with previous balloon valvuloplasty, coronary artery disease with previous PCI/stenting to the RCA, hypertension, hyperlipidemia, obesity, back pain, among other things. She has had multiple hospitalizations with similar presentation. She was just recently admitted with a combination of COPD/CHF exacerbation, and in fact was discharged less than 24 hours prior to coming back to the emergency department yesterday. She does now have a BiPAP device at home, however, compliance may be an issue. She states that she had trouble setting up the device. She was very short of breath overnight. There is a persistent cough, which is congested but nonproductive. No fevers. Denies chest pain. Lower extremity swelling is improved from baseline. Reports compliance with Lasix. On arrival to the emergency department, she was noted to be in respiratory distress and lethargic. She was found to be hypoxic with a SpO2 of 71% on 8 L high flow nasal cannula. She was placed on BiPAP with settings 12/6 and FiO2 of 40%. VBG shows a pCO2 of 81 and pH of 7.29. Chest x-ray demonstrates interstitial and patchy opacities in the mid and lower lung elkins bilaterally, superimposed on COPD. Likely representing interstitial pulmonary edema, however, bibasilar infiltrates could not be completely excluded. NT proBNP 15,800. CBC: WBC count 21.2, hemoglobin 9.6, hematocrit 32.7, platelets 491. CMP: Sodium 143, potassium 3.5, chloride 98, serum bicarb 38, BUN 30, creatinine 0.75, glucose 208. Lactic was 3 and trupti n to 1.4. LFTs not elevated. Troponin 0.082, 0.23, and 0.24 respectively. EKG showing normal sinus rhythm with frequent PVCs and left axis deviation. Minimal ST depressions in leads V5 and V6, but overall nondiagnostic for acute ischemia. Patient is currently resting comfortably on BiPAP with above-mentioned settings. She is generating tidal volumes of around 350 and her respiratory rate of 18. She is alert and oriented x 3. No signs of CO2 narcosis. Overall, no new complaints other than what was mentioned, and some intermittent liquid diarrhea. Denies any nausea, vomiting, abdominal pain, bloody bowel movements or melena. She has been on antibiotics while previously hospitalized. C. difficile was negative. She is afebrile. She is again started empirically on a combination of azithromycin and Zosyn in the emergency department. She is also restarted on Lasix 20 mg twice daily. Prognosis guarded. Progress note dated October 19, 2023. The patient is seen today in room 352. She is sitting in bed. She has a BiPAP in place, with settings of 12/6, and 40%. When not on BiPAP, she gets nasal oxygen at 5 L/min, which is what she uses at home. She is not receiving any IV fluids. Of course, her , is there, as he is, most all the time, when she is in the hospital. Today's labs include a white count 16.8, hemoglobin 9, hematocrit 29.5, and platelet count that is 379,000. Sodium 139, potassium 3.6, chloride 91, CO2 44, BUN 25, creatinine 0.76. Glucose is 205. Calcium is normal. Blood cultures are thus far negative. Chest x-ray shows cardiomegaly, and pulmonary vascular congestion, consistent with CHF. Objective - Vital Signs Vital signs: Vital Signs Temp 98.0 F 10/19/23 09:27 Pulse 85 10/19/23 09:27 Resp 20 10/19/23 09:27 BP 135/68 10/19/23 09:27 Pulse Ox 90 L 10/19/23 09:27 FiO2 40 10/19/23 08:25 Intake & Output 10/18/23 10/19/23 10/19/23 18:59 06:59 18:59 Intake Total 778 210 1914 Output Total 725 300 Balance 840 -185 1510 Weight 92.5 kg Intake: IV 10 Invasive Line 1 10 Oral 436 364 1815 Output: Urine 725 300 Other: Voiding Method Bedside Commode Bedside Commode Bedside Commode Bedpan # Voids 1 # Bowel Movements 300 1 - Exam No acute distress, oriented 3. The patient is currently on BiPAP. HEENT examination is grossly unremarkable. Neck supple. Full range of motion. No adenopathy thyromegaly or neck vein distention. Cardiovascular examination reveals regular rhythm rate. S1-S2 normal. No S3 or S4. No discernible murmur noted. Heart sounds are distant. Heart rate 85 bpm. Lungs reveal scattered rhonchi, and basilar crackles. Mild expiratory wheezes. Breath sounds equal bilaterally. Saturations are 98% on 5 L. Abdomen, and obese. Bowel sounds are noted. Extremities are intact. No cyanosis or clubbing. Mild edema noted. Skin is without rash or lesion. Neurologic examination is brief but nonfocal. - Labs CBC & Chem 7: 10/19/23 09:03 10/19/23 09:03 Labs: Abnormal Lab Results - Last 24 Hours (Table) 10/18/23 10/18/23 10/18/23 Range/Units 08:54 16:07 19:54 WBC (3.8-10.6) k/uL RBC (3.80-5.40) m/uL Hgb (11.4-16.0) gm/dL Hct (34.0-46.0) % MCHC (31.0-37.0) g/dL Neutrophils # (1.3-7.7) k/uL Lymphocytes # (1.0-4.8) k/uL Chloride (98-107) mmol/L Carbon Dioxide (22-30) mmol/L BUN (7-17) mg/dL Glucose (74-99) mg/dL POC Glucose (mg/dL) 174 H 251 H (70-110) mg/dL Procalcitonin 0.40 H (0.02-0.09) ng/mL 10/19/23 10/19/23 10/19/23 Range/Units 05:58 09:03 09:03 WBC 16.8 H (3.8-10.6) k/uL RBC 2.98 L (3.80-5.40) m/uL Hgb 9.0 L (11.4-16.0) gm/dL Hct 29.5 L (34.0-46.0) % MCHC 30.4 L (31.0-37.0) g/dL Neutrophils # 15.3 H (1.3-7.7) k/uL Lymphocytes # 0.8 L (1.0-4.8) k/uL Chloride 91 L (98-107) mmol/L Carbon Dioxide 44 H* (22-30) mmol/L BUN 25 H (7-17) mg/dL Glucose 149 H (74-99) mg/dL POC Glucose (mg/dL) 187 H (70-110) mg/dL Procalcitonin (0.02-0.09) ng/mL 10/19/23 Range/Units 11:32 WBC (3.8-10.6) k/uL RBC (3.80-5.40) m/uL Hgb (11.4-16.0) gm/dL Hct (34.0-46.0) % MCHC (31.0-37.0) g/dL Neutrophils # (1.3-7.7) k/uL Lymphocytes # (1.0-4.8) k/uL Chloride (98-107) mmol/L Carbon Dioxide (22-30) mmol/L BUN (7-17) mg/dL Glucose (74-99) mg/dL POC Glucose (mg/dL) 205 H (70-110) mg/dL Procalcitonin (0.02-0.09) ng/mL Microbiology - Last 24 Hours (Table) 10/17/23 13:05 Blood Culture - Preliminary Blood Assessment and Plan Assessment: Acute on chronic hypoxemic and hypercapnic respiratory failure, likely multifactorial secondary to a combination of acute COPD exacerbation and exacerbation of heart failure with reduced ejection fraction. Severe oxygen and steroid dependent, chronic obstructive pulmonary disease, normally maintained on 5 L/min nasal cannula. Coronary artery disease, with history of previous PCI/stenting to the RCA. Ischemic cardiomyopathy with ejection fraction of 25 to 30%. Severe aortic stenosis with history of previous aortic valvuloplasty. Elevated troponins, possible type II OR, secondary to supply/demand mismatch. Acute leukocytosis. Chronic anemia. History of shingles. History of hyperlipidemia. History of hypertension. Chronic low back pain. Obesity, with a BMI of 39.5 kg/m. Prior history of heavy tobacco use. Plan: Plan dated October 19, 2023. The patient is seen in room 352. The patient is currently on BiPAP, or nasal O2 at 5 L. Her saturations are in the high 80s, and low 90s. She looks like she typically does, and she was admitted this time, with a combination of both COPD, and CHF. Labs, x-rays, and medications are reviewed. The patient's overall prognosis remains guarded. We will continue to follow the patient, make recommendations were appropriate. Prognosis is guarded as mentioned above, as the patient has had multiple admissions to the hospital recently. Time with Patient: Less than 30
[2023-10-19] MEDS: POTASSIUM CHLORIDE ER 20 MEQ TAB.ER PO STA (12:10)
[2023-10-19 16:24] LABS: Glucose,Whole Blood 149 mg/dL (70-110)
[2023-10-19 20:13] LABS: Glucose,Whole Blood 204 mg/dL (70-110)
[2023-10-20 06:06] LABS: Glucose,Whole Blood 169 mg/dL (70-110)
[2023-10-20 09:10] LABS: Basophils # (A) 0.1 k/uL (0-0.2); Basophils % (A) 0 %; Eosinophils % (A) 0 %; HCT 27.5 % (34.0-46.0); HGB 8.4 gm/dL (11.4-16.0); Hypochromasia Moderate; Lymphocytes # (A) 0.7 k/uL (1.0-4.8); Lymphocytes % (A) 4 %; MCH 30.6 pg (25.0-35.0); MCHC 30.5 g/dL (31.0-37.0); MCV 100.3 fL (80.0-100.0); Macrocytosis Slight; Mean Platelet Volume 7.9; Monocytes # (A) 0.6 k/uL (0-1.0); Monocytes % (A) 4 %; Neutrophils # (A) 13.8 k/uL (1.3-7.7); Neutrophils % (A) 91 %; Platelet Count 336 k/uL (150-450); RBC 2.74 m/uL (3.80-5.40); RDW 14.7 % (11.5-15.5); WBC 15.2 k/uL (3.8-10.6)
[2023-10-20 09:25] LABS: African American GFR (CKD) >90 (>60 ml/min/1.73 sqM); Blood Urea Nitrogen 23 mg/dL (7-17); Calcium 9.1 mg/dL (8.4-10.2); Chloride 90 mmol/L (98-107); Glucose 202 mg/dL (74-99); Non-African American GFR(CKD) >90 (>60 ml/min/1.73 sqM); Potassium 3.4 mmol/L (3.5-5.1); Sodium 139 mmol/L (137-145)
[2023-10-20 09:31] LABS: Anion Gap 3 mmol/L
[2023-10-20 09:46] LABS: Carbon Dioxide 46 mmol/L (22-30)
[2023-10-20 11:15] VITALS: BP 131/80; RESP 20; TEMP 98.5
[2023-10-20] MEDS: POTASSIUM CHLORIDE ER 20 MEQ TAB.ER PO ONE ×2 (11:18)
[2023-10-20 11:20] LABS: Glucose,Whole Blood 206 mg/dL (70-110)
[2023-10-20 11:53] VITALS: PULSE 76
--- NOTE | 2023-10-20 12:03 | P.DS ---
Providers Date of admission: 10/17/23 14:03 Attending physician: Twin Alcala MD Consults: 10/17/23 14:01 Consult Physician Routine Consulting Provider: Júnior Morgan Consult Reason/Comments: Hypoxic hypercapnic respiratory failure Do you want consulting provider notified?: Yes 10/17/23 15:22 Consult Physician Routine Consulting Provider: Montana Bush Consult Reason/Comments: chf, elevated trop Do you want consulting provider notified?: Yes Primary care physician: Physician Nonstaff Hospital Course: Discharge diagnosis Acute on chronic hypoxic and hypercapnic respiratory failure COPD exacerbation Bilateral pneumonia Acute on chronic systolic heart failure Aortic valve stenosis Elevated troponin secondary to heart failure Unspecified psych disorder Hospital course Ms. Porras is a 63-year-old lady with a medical history significant for COPD on 5 to 6 L home oxygen, severe bicuspid aortic valve stenosis, CAD, ischemic cardiomyopathy with EF 25 to 30%, hypertension and dyslipidemia who presents to the ED with shortness of breath. Patient was just discharged from the facility 1 day ago. Patient was not wearing her BiPAP at home. In the ED patient ABG was consistent with acute on chronic hypoxic and hypercapnic respiratory failure. Patient WBC was also elevated at 21.2. Chest x-ray showed interstitial and patchy opacities in the mid and lower lung superimposed on COPD. Consider bibasilar infiltrates versus atypical interstitial pulmonary edema. Patient being followed by cardiology and pulmonology. Patient started on IV Zosyn. Patient also started on IV Solu-Medrol and breathing treatments. Patient also started on IV Lasix 20 mg IV every 12 hours and spironolactone 25 mg p.o. daily. Repeat chest x-ray on 10/18/2023 showed cardiomegaly and mild pulmonary vascular congestion. Patient symptoms are improving. Patient reports that while she was in the hospital someone did deliver BiPAP with nasal mask at her home which she believes will be more comfortable for her and making her compliant with using BiPAP. Patient has a history of severe aortic stenosis which could be causing her shortness of breath. Per cardiology patient has a valve annulus too big for recommended valves. Cardiology is recommending TAVR at a tertiary care center. I discussed with the coordinator from [facility] who said they are having a doctor at [facility], Dr Danny Ren, evaluate her case. At the time of discharge patient felt ready to go home. I discussed with pulmonology who said patient is stable for discharge from their standpoint. At the time of discharge I counseled patient about being compliant with her BiPAP. I also counseled the patient on being compliant with sodium restriction and fluid restriction. 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 Psych - Calm and cooperative I spent a total of 33 minutes with this discharge Patient Condition at Discharge: Serious Plan - Discharge Summary Discharge Rx Participant: Yes New Discharge Prescriptions: New Dapagliflozin Propanediol [Farxiga] 5 mg PO DAILY 30 Days #30 tablet Spironolactone [Aldactone] 25 mg PO DAILY 30 Days #30 tab Amoxic-Pot Clav 875-125Mg [Augmentin 875-125] 1 tab PO BID 5 Days #10 tab predniSONE 50 mg PO DAILY 5 Days #5 tablet Continue Albuterol Inhaler [Ventolin Hfa Inhaler] 2 puff INHALATION RT-Q4H PRN PRN Reason: Shortness Of Breath Aspirin 81 mg PO DAILY 30 Days #30 tab Yupelri 175mcg/3ml 175 mcg INHALATION RT-DAILY Sertraline [Zoloft] 150 mg PO DAILY Capsaicin Cream [Trixaicin Cream] 1 applic TOPICAL TID PRN PRN Reason: Pain Atorvastatin [Lipitor] 40 mg PO HS Budesonide/Formoterol Fumarate [Symbicort 160-4.5 Mcg Inhaler] 2 puff IN HALATION RT-BID Ipratropium-Albuterol Nebulize [Duoneb 0.5 mg-3 mg/3 ml Soln] 3 ml INHALATION RT-QID PRN PRN Reason: Shortness Of Breath Metoprolol Succinate (ER) [Toprol XL] 50 mg PO BID tab busPIRone HCl [Buspar] 5 mg PO BID LORazepam [Ativan] 0.25 mg PO DAILY PRN PRN Reason: Anxiety Furosemide [Lasix] 40 mg PO DAILY tab Discontinued Potassium Chloride ER [K-Dur 20] 20 meq PO BID #60 tab Cefdinir 300 mg PO DIRECTED Dapagliflozin Propanediol [Farxiga] 5 mg PO DAILY predniSONE 5 mg PO DAILY #0 predniSONE 35 mg PO DIRECTED Discharge Medication List Albuterol Inhaler [Ventolin Hfa Inhaler] 2 puff INHALATION RT-Q4H PRN 04/09/22 [History] Atorvastatin [Lipitor] 40 mg PO HS 04/09/22 [History] Aspirin 81 mg PO DAILY 30 Days #30 tab 04/12/22 [Rx] Budesonide/Formoterol Fumarate [Symbicort 160-4.5 Mcg Inhaler] 2 puff INHALATION RT-BID 07/13/22 [History] Ipratropium-Albuterol Nebulize [Duoneb 0.5 mg-3 mg/3 ml Soln] 3 ml INHALATION RT-QID PRN 09/23/22 [History] Yupelri 175mcg/3ml 175 mcg INHALATION RT-DAILY 11/19/22 [History] Metoprolol Succinate (ER) [Toprol XL] 50 mg PO BID tab 09/20/23 [Rx] Capsaicin Cream [Trixaicin Cream] 1 applic TOPICAL TID PRN 10/12/23 [History] LORazepam [Ativan] 0.25 mg PO DAILY PRN 10/12/23 [History] Sertraline [Zoloft] 150 mg PO DAILY 10/12/23 [History] busPIRone HCl [Buspar] 5 mg PO BID 10/12/23 [History] Furosemide [Lasix] 40 mg PO DAILY tab 10/16/23 [Rx] Amoxic-Pot Clav 875-125Mg [Augmentin 875-125] 1 tab PO BID 5 Days #10 tab 10/20/23 [Rx] Dapagliflozin Propanediol [Farxiga] 5 mg PO DAILY 30 Days #30 tablet 10/20/23 [Rx] Spironolactone [Aldactone] 25 mg PO DAILY 30 Days #30 tab 10/20/23 [Rx] predniSONE 50 mg PO DAILY 5 Days #5 tablet 10/20/23 [Rx] Follow up Appointment(s)/Referral(s): Nonstaff,Physician [Primary Care Provider] - 1-2 days Antoni Hinkle DO [STAFF PHYSICIAN] - 1 Week Júnior Morgan DO [Doctor of Osteopathic Medicine] - 1 Week Discharge Disposition: HOME WITH HOME HEALTH SERVICES
--- NOTE | 2023-10-20 13:16 | P.PN ---
Subjective Progress Note Date: 10/20/23 Principal diagnosis: Shortness of breath. Patient is a 64-year-old white female with past medical history significant for chronic hypoxemic respiratory failure, normally maintained on 5 L/min nasal cannula at home, COPD, heart failure, severe aortic valve stenosis with previous balloon valvuloplasty, coronary artery disease with previous PCI/stenting to the RCA, hypertension, hyperlipidemia, obesity, back pain, among other things. She has had multiple hospitalizations with similar presentation. She was just recently admitted with a combination of COPD/CHF exacerbation, and in fact was discharged less than 24 hours prior to coming back to the emergency department yesterday. She does now have a BiPAP device at home, however, compliance may be an issue. She states that she had trouble setting up the device. She was very short of breath overnight. There is a persistent cough, which is congested but nonproductive. No fevers. Denies chest pain. Lower extremity swelling is improved from baseline. Reports compliance with Lasix. On arrival to the emergency department, she was noted to be in respiratory distress and lethargic. She was found to be hypoxic with a SpO2 of 71% on 8 L high flow nasal cannula. She was placed on BiPAP with settings 12/6 and FiO2 of 40%. VBG shows a pCO2 of 81 and pH of 7.29. Chest x-ray demonstrates interstitial and patchy opacities in the mid and lower lung elkins bilaterally, superimposed on COPD. Likely representing interstitial pulmonary edema, however, bibasilar infiltrates could not be completely excluded. NT proBNP 15,800. CBC: WBC count 21.2, hemoglobin 9.6, hematocrit 32.7, platelets 491. CMP: Sodium 143, potassium 3.5, chloride 98, serum bicarb 38, BUN 30, creatinine 0.75, glucose 208. Lactic was 3 and trupti n to 1.4. LFTs not elevated. Troponin 0.082, 0.23, and 0.24 respectively. EKG showing normal sinus rhythm with frequent PVCs and left axis deviation. Minimal ST depressions in leads V5 and V6, but overall nondiagnostic for acute ischemia. Patient is currently resting comfortably on BiPAP with above-mentioned settings. She is generating tidal volumes of around 350 and her respiratory rate of 18. She is alert and oriented x 3. No signs of CO2 narcosis. Overall, no new complaints other than what was mentioned, and some intermittent liquid diarrhea. Denies any nausea, vomiting, abdominal pain, bloody bowel movements or melena. She has been on antibiotics while previously hospitalized. C. difficile was negative. She is afebrile. She is again started empirically on a combination of azithromycin and Zosyn in the emergency department. She is also restarted on Lasix 20 mg twice daily. Prognosis guarded. Progress note dated October 19, 2023. The patient is seen today in room 352. She is sitting in bed. She has a BiPAP in place, with settings of 12/6, and 40%. When not on BiPAP, she gets nasal oxygen at 5 L/min, which is what she uses at home. She is not receiving any IV fluids. Of course, her , is there, as he is, most all the time, when she is in the hospital. Today's labs include a white count 16.8, hemoglobin 9, hematocrit 29.5, and platelet count that is 379,000. Sodium 139, potassium 3.6, chloride 91, CO2 44, BUN 25, creatinine 0.76. Glucose is 205. Calcium is normal. Blood cultures are thus far negative. Chest x-ray shows cardiomegaly, and pulmonary vascular congestion, consistent with CHF. Progress note dated October 20, 2023. 63-year-old female seen in room 352. She is sitting on the top of her bed. Currently, the patient is on O2, at 5 L. She is not receiving any IV fluids. She did use BiPAP last night, with settings of 12/6, and 40%. Clinically, the patient states that she is feeling much better. In my opinion, she is pretty much back to her baseline. Current labs include a white count of 15.2, hemoglobin 8.4, hematocrit 27.5, and a platelet count of 336,000. Sodium 139, potassium 3.4, chlorides 90, CO2 46, BUN 23, and creatinine 0.7. Glucose is 206. Magnesium 2. Calcium is 9.1. Objective - Vital Signs Vital signs: Vital Signs Temp 98.5 F 10/20/23 11:12 Pulse 76 10/20/23 11:53 Resp 20 10/20/23 11:12 BP 131/80 10/20/23 11:12 Pulse Ox 95 10/20/23 11:12 FiO2 40 10/20/23 08:33 Intake & Output 10/19/23 10/20/23 10/20/23 18:59 06:59 18:59 Intake Total 2170 560 120 Output Total 300 1250 Balance 1870 -690 120 Weight 92.1 kg Intake: IV 10 20 10 Invasive Line 1 10 20 Invasive Line 2 10 Oral 2160 540 110 Output: Urine 300 750 Urine/Stool Mix 500 Other: Voiding Method Bedside Commode Bedside Commode Bedside Commode # Voids 2 # Bowel Movements 1 - Exam No acute distress, oriented 3. The patient is currently on BiPAP. HEENT examination is grossly unremarkable. Neck supple. Full range of motion. No adenopathy thyromegaly or neck vein distention. Cardiovascular examination reveals regular rhythm rate. S1-S2 normal. No S3 or S4. No discernible murmur noted. Heart sounds are distant. Heart rate 76 bpm. Lungs reveal scattered rhonchi, and basilar crackles. Mild expiratory wheezes. Breath sounds equal bilaterally. Saturations are 95 % on 5 L. Abdomen, and obese. Bowel sounds are noted. Extremities are intact. No cyanosis or clubbing. Mild edema noted. Skin is without rash or lesion. Neurologic examination is brief but nonfocal. - Labs CBC & Chem 7: 10/20/23 08:47 10/20/23 08:47 Labs: Abnormal Lab Results - Last 24 Hours (Table) 10/19/23 10/19/23 10/20/23 Range/Units 16:22 20:11 06:04 WBC (3.8-10.6) k/uL RBC (3.80-5.40) m/uL Hgb (11.4-16.0) gm/dL Hct (34.0-46.0) % MCV (80.0-100.0) fL MCHC (31.0-37.0) g/dL Neutrophils # (1.3-7.7) k/uL Lymphocytes # (1.0-4.8) k/uL Potassium (3.5-5.1) mmol/L Chloride (98-107) mmol/L Carbon Dioxide (22-30) mmol/L BUN (7-17) mg/dL Glucose (74-99) mg/dL POC Glucose (mg/dL) 149 H 204 H 169 H (70-110) mg/dL 10/20/23 10/20/23 10/20/23 Range/Units 08:47 08:47 11:18 WBC 15.2 H (3.8-10.6) k/uL RBC 2.74 L (3.80-5.40) m/uL Hgb 8.4 L (11.4-16.0) gm/dL Hct 27.5 L (34.0-46.0) % MCV 100.3 H (80.0-100.0) fL MCHC 30.5 L (31.0-37.0) g/dL Neutrophils # 13.8 H (1.3-7.7) k/uL Lymphocytes # 0.7 L (1.0-4.8) k/uL Potassium 3.4 L (3.5-5.1) mmol/L Chloride 90 L (98-107) mmol/L Carbon Dioxide 46 H* (22-30) mmol/L BUN 23 H (7-17) mg/dL Glucose 202 H (74-99) mg/dL POC Glucose (mg/dL) 206 H (70-110) mg/dL Microbiology - Last 24 Hours (Table) 10/17/23 13:23 Blood Culture - Preliminary Blood 10/17/23 13:05 Blood Culture - Preliminary Blood Assessment and Plan Assessment: Acute on chronic hypoxemic and hypercapnic respiratory failure, likely multi factorial secondary to a combination of acute COPD exacerbation and exacerbation of heart failure with reduced ejection fraction. Severe oxygen and steroid dependent, chronic obstructive pulmonary disease, normally maintained on 5 L/min nasal cannula. Coronary artery disease, with history of previous PCI/stenting to the RCA. Ischemic cardiomyopathy with ejection fraction of 25 to 30%. Severe aortic stenosis with history of previous aortic valvuloplasty. Elevated troponins, possible type II PR, secondary to supply/demand mismatch. Acute leukocytosis. Chronic anemia. History of shingles. History of hyperlipidemia. History of hypertension. Chronic low back pain. Obesity, with a BMI of 39.5 kg/m. Prior history of heavy tobacco use. Plan: Plan dated October 19, 2023. The patient is seen in room 352. The patient is currently on BiPAP, or nasal O2 at 5 L. Her saturations are in the high 80s, and low 90s. She looks like she typically does, and she was admitted this time, with a combination of both COPD, and CHF. Labs, x-rays, and medications are reviewed. The patient's overall prognosis remains guarded. We will continue to follow the patient, make recommendations were appropriate. Prognosis is guarded as mentioned above, as the patient has had multiple admissions to the hospital recently. Plan dated October 20, 2023. The patient is seen today in room 352. Her is in the room as well. She is on 5 L, which is what she uses at home. She did use BiPAP last night, with settings of 12/6, and 40%. She is not receiving any IV fluids. Labs, x-rays, and medications are all reviewed. The hospitalist doctor, is considering discharging this patient. In my opinion, the patient is pretty much at her baseline. She was recently in the hospital, was discharged, and was readmitted shortly thereafter. The patient does have a BiPAP device at home, and should be using it. Additional recommendations and suggestions are forthcoming. Prognosis is guarded. Time with Patient: Less than 30
== END 2023-10-20 13:09 | disposition home health service (06) | DRG 280 ==
LOC: EC 12:20 → 3SCARD 14:03
PROVIDERS: ADMIT Student in an Organized Health Care Education/Training Program; ATTEND Student in an Organized Health Care Education/Training Program
DX: I11.0 Hypertensive heart disease with heart failure (principal); I50.23 Acute on chronic systolic (congestive) heart failure; I21.A1 Myocardial infarction type 2; J96.22 Acute and chronic respiratory failure with hypercapnia; J96.21 Acute and chronic respiratory failure with hypoxia; J44.1 Chronic obstructive pulmonary disease with (acute) exacerbation; I25.5 Ischemic cardiomyopathy; I49.3 Ventricular premature depolarization; G47.33 Obstructive sleep apnea (adult) (pediatric); D64.9 Anemia, unspecified; G89.29 Other chronic pain; E66.9 Obesity, unspecified; Z68.39 Body mass index [BMI] 39.0-39.9, adult; E78.5 Hyperlipidemia, unspecified; F32.A Depression, unspecified; F41.9 Anxiety disorder, unspecified; I25.10 Atherosclerotic heart disease of native coronary artery without angina pectoris; I25.2 Old myocardial infarction; Z79.52 Long term (current) use of systemic steroids; Z79.51 Long term (current) use of inhaled steroids; Z79.82 Long term (current) use of aspirin; Z79.84 Long term (current) use of oral hypoglycemic drugs; Z82.49 Family history of ischemic heart disease and other diseases of the circulatory system; Z86.19 Personal history of other infectious and parasitic diseases; T38.0X5A Adverse effect of glucocorticoids and synthetic analogues, initial encounter; Z91.199 Patient's noncompliance with other medical treatment and regimen due to unspecified reason; Z95.5 Presence of coronary angioplasty implant and graft; Z99.81 Dependence on supplemental oxygen; Z86.79 Personal history of other diseases of the circulatory system; X58.XXXA Exposure to other specified factors, initial encounter; Z98.42 Cataract extraction status, left eye; Z98.41 Cataract extraction status, right eye
CPT/HCPCS: 36415; 71045; 80048; 80053; 82803; 83605; 83735; 83880; 84100; 84145; 84484; 85025; 85610; 85730; 87040; 87324; 93005; 94640; 94660; 96365; 96366; 96367; 96368; 96372; 96375; 96376; 99291

== ENCOUNTER 2023-11-21 07:33 | Inpatient (IN) | payer OTHER ==
[2023-11-21] MEDS: IPRATROPIUM-ALBUTEROL 3 ML NEB INHALATION STA (07:39)
[2023-11-21 07:52] LABS: VBG PH 7.35 (7.31-7.41)
[2023-11-21] MEDS: methylPREDNISolone SOD SUCCI 125 MG/2 ML VIAL IV STA (07:59)
[2023-11-21] MEDS: SODIUM CHLORIDE 0.9% 1,000 ML IV STA ×2 (07:59→09:55)
[2023-11-21] MEDS: MAGNESIUM SULFATE-D5W PMX 1 GM in DEXTROSE/WATER 1 100ML.BAG IVPB STA (08:01)
[2023-11-21 08:05] LABS: Partial Thromboplastin Time 22.2 sec (22.0-30.0); Prothrombin Time 10.5 sec (10.0-12.5)
[2023-11-21 08:06] LABS: ALT 12 U/L (4-34); AST 27 U/L (14-36); African American GFR (CKD) >90 (>60 ml/min/1.73 sqM); Alkaline Phosphatase 125 U/L (38-126); Blood Urea Nitrogen 13 mg/dL (7-17); Calcium 9.1 mg/dL (8.4-10.2); Chloride 83 mmol/L (98-107); Glucose 262 mg/dL (74-99); Magnesium 2.1 mg/dL (1.6-2.3); Non-African American GFR(CKD) >90 (>60 ml/min/1.73 sqM); Potassium 3.3 mmol/L (3.5-5.1); Sodium 136 mmol/L (137-145); Total Bilirubin 0.5 mg/dL (0.2-1.3); Total Protein 6.4 g/dL (6.3-8.2)
[2023-11-21 08:17] LABS: Basophils # (A) 0.1 k/uL (0-0.2); Basophils % (A) 1 %; Eosinophils # (A) 0.2 k/uL (0-0.7); Eosinophils % (A) 2 %; HCT 34.7 % (34.0-46.0); HGB 10.7 gm/dL (11.4-16.0); Hypochromasia Marked; Lymphocytes # (A) 2.6 k/uL (1.0-4.8); Lymphocytes % (A) 21 %; MCH 30.5 pg (25.0-35.0); MCHC 30.8 g/dL (31.0-37.0); MCV 98.8 fL (80.0-100.0); Macrocytosis Slight; Mean Platelet Volume 7.3; Monocytes # (A) 1.1 k/uL (0-1.0); Monocytes % (A) 9 %; Neutrophils # (A) 8.1 k/uL (1.3-7.7); Neutrophils % (A) 66 %; Platelet Count 356 k/uL (150-450); RBC 3.51 m/uL (3.80-5.40); RDW 15.1 % (11.5-15.5); WBC 12.4 k/uL (3.8-10.6)
--- NOTE | 2023-11-21 08:21 | XR ---
EXAMINATION TYPE: XR chest 1V DATE OF EXAM: 11/21/2023 HISTORY: Shortness of breath. COMPARISON: 10/18/2023 TECHNIQUE: Single view of the chest is submitted. FINDINGS: Demonstrated are scattered senescent parenchymal change. Patchy infiltrate right lower lobe may reflect pneumonia. Correlate clinically. The heart is stable. Hilar and mediastinal structures are within normal limits. Degenerative changes are seen of the dorsal spine. IMPRESSION: 1. Patchy infiltrate right lower lobe may reflect pneumonia. Correlate clinically.
[2023-11-21] MEDS ORDERED: PNEUMONIA PROTOCOL UTILIZED 1 EACH MISC PO PRN (08:26)
[2023-11-21 08:31] LABS: Anion Gap 5 mmol/L
[2023-11-21 08:35] LABS: Carbon Dioxide 48 mmol/L (22-30)
[2023-11-21] MEDS ORDERED: NALOXONE 0.4 MG/ML 1 ML VIAL IV PRN (08:53)
[2023-11-21] MEDS: PIPERACILLIN-TAZOBACTAM 3.375 GM in SODIUM CHLORIDE 0.9% 100 ML IVPB STA (09:17)
[2023-11-21] MEDS: AZITHROMYCIN 500 MG in SODIUM CHLORIDE 0.9% 250 ML IVPB STA (09:55)
--- NOTE | 2023-11-21 10:08 | ED ---
General Adult HPI - General Chief complaint: Shortness of Breath Stated complaint: GRAYSON Time Seen by Provider: 11/21/23 07:33 Source: patient, EMS, RN notes reviewed, old records reviewed Mode of arrival: EMS - History of Present Illness Initial comments: Patient is a 63-year-old female who is well-known to our emergency department presenting to the emergency department hypoxic respiratory failure and shortness of breath. Has history of chronic hypoxic respiratory failure on oxygen and CPAP at home who is noncompliant, CAD, COPD, CHF. Has been having increased sh ortness of breath since last night. States her oxygen was not working at home, something with the nasal cannula tubing. Is post also CPAP which she is known to not be compliant with. Presents with increased shortness of breath. Has been admitted recently for similar complaints in the last few months. Patient was placed on CPAP by EMS. Currently feeling improved. Denies any fevers, chest pain, abdominal pain, nausea, vomiting, diarrhea. Patient has no other acute complaints at this time.Patient does endorse a small cough. Unknown productivity. - Related Data Home Medications Medication Instructions Recorded Confirmed Albuterol Inhaler [Ventolin Hfa 2 puff INHALATION RT-Q4H PRN 04/09/22 10/17/23 Inhaler] Atorvastatin [Lipitor] 40 mg PO HS 04/09/22 10/17/23 Budesonide/Formoterol Fumarate 2 puff INHALATION RT-BID 07/13/22 10/17/23 [Symbicort 160-4.5 Mcg Inhaler] Ipratropium-Albuterol Nebulize 3 ml INHALATION RT-QID PRN 09/23/22 10/17/23 [Duoneb 0.5 mg-3 mg/3 ml Soln] Yupelri 175mcg/3ml 175 mcg INHALATION RT-DAILY 11/19/22 10/17/23 Capsaicin Cream [Trixaicin Cream] 1 applic TOPICAL TID PRN 10/12/23 10/17/23 LORazepam [Ativan] 0.25 mg PO DAILY PRN 10/12/23 10/17/23 Sertraline [Zoloft] 150 mg PO DAILY 10/12/23 10/17/23 busPIRone HCl [Buspar] 5 mg PO BID 10/12/23 10/17/23 Previous Rx's Medication Instructions Recorded Aspirin 81 mg PO DAILY 30 Days #30 tab 04/12/22 Metoprolol Succinate (ER) [Toprol 50 mg PO BID tab 09/20/23 XL] Furosemide [Lasix] 40 mg PO DAILY tab 10/16/23 Amoxic-Pot Clav 875-125Mg 1 tab PO BID 5 Days #10 tab 10/20/23 [Augmentin 875-125] Dapagliflozin Propanediol [Farxiga] 5 mg PO DAILY 30 Days #30 tablet 10/20/23 Spironolactone [Aldactone] 25 mg PO DAILY 30 Days #30 tab 10/20/23 predniSONE 50 mg PO DAILY 5 Days #5 tablet 10/20/23 Allergies Allergy/AdvReac Type Severity Reaction Status Date / Time No Known Allergies Allergy Verified 11/21/23 10:32 Review of Systems ROS Statement: Those systems with pertinent positive or pertinent negative responses have been documented in the HPI. Review of Systems: CONST: Denies fever EYES: Denies blurry vision ENT: Denies nasal congestion C/V: Denies Chest pain RESP: Endorses shortness of breath GI: Denies abdominal pain : Denies dysuria SKIN: Denies rash. MSK: Denies joint pain. NEURO: Denies headache ROS Other: All systems not noted in ROS Statement are negative. Past Medical History Past Medical History: Coronary Artery Disease (CAD), Chest Pain / Angina, COPD, Myocardial Infarction (MS), Respiratory Disorder Additional Past Medical History / Comment(s): Chronic hypercapnic respiratory failure, home oxygen at 5L/NC, bipap at night, tracheobronchitis, severe bicuspid aortic valve stenosis, chronic low back pain, DJD Last Myocardial Infarction Date:: 04/2023 History of Any Multi-Drug Resistant Organisms: None Reported Past Surgical History: Breast Surgery, Heart Catheterization With Stent, Tubal Ligation Additional Past Surgical History / Comment(s): Bilateral breast reductions, bilateral cataract removals. Past Anesthesia/Blood Transfusion Reactions: No Reported Reaction Date of Last Stent Placement:: 04/2023 Past Psychological History: Anxiety, Depression Smoking Status: Former smoker Past Alcohol Use History: None Reported Past Drug Use History: None Reported - Past Family History Father History Unknown: Yes Mother Family Medical History: Congestive Heart Failure (CHF), Diabetes Mellitus General Exam - General Exam Comments Initial Comments: General: Appears in respiratory distress. HEAD: Normal with no signs of head trauma. EYES: PERRLA, EOMI, conjunctiva normal, no discharge. ENT: Hearing grossly intact, normal oropharynx. RESPIRATORY: Tight breath sounds bilaterally with very minimal wheezing. Poor air movement. Increased work of breathing. Saturating well on BiPAP. C/V: Regular rate and rhythm. S1 and S2 auscultated, no edema, peripheral pulses 2+ and intact throughout ABD: Abd is soft, nontender, nondistended EXT: Normal range of motion, no obvious deformity SKIN: No rashes or lesions observed on exposed skin. NEURO: Alert and oriented x 4. No focal deficits. Course Vital Signs 11/21/23 11/21/23 11/21/23 07:34 07:39 07:40 Temperature Pulse Rate 94 97 Respiratory 24 24 Rate Blood Pressure 132/71 O2 Sat by Pulse 100 Oximetry Fraction of Inspired Oxygen (FIO2) 11/21/23 11/21/23 11/21/23 07:44 07:56 08:03 Temperature Pulse Rate 85 89 Respiratory 22 Rate Blood Pressure 114/63 O2 Sat by Pulse 100 Oximetry Fraction of 100 Inspired Oxygen (FIO2) 11/21/23 11/21/23 09:19 10:04 Temperature 98.8 F Pulse Rate 73 Respiratory 20 Rate Blood Pressure 101/58 O2 Sat by Pulse 95 Oximetry Fraction of 60 Inspired Oxygen (FIO2) Medical Decision Making - Medical Decision Making Was pt. sent in by a medical professional or institution ([facility], [facility], urgent care, hospital, or alf...) When possible be specific @ -No Did you speak to anyone other than the patient for history (EMS, parent, family, police, friend...)? What history was obtained from this source @ -I spoke with EMS who provided patient's transport history. Did you review nursing and triage notes (agree or disagree)? Why? @ -I reviewed and agree with nursing and triage notes Were old charts reviewed (outside hosp., previous admission, EMS record, old EKG, old radiological studies, urgent care reports/EKG's, alf records)? Report findings @ -Old charts reviewed including when I last saw the patient in September 2023. Compared EKGs with no significant acute process on today's EKG. Similar presentation although seems to not be as severe compared to that time. Differential Diagnosis (chest pain, altered mental status, abdominal pain women, abdominal pain men, vaginal bleeding, weakness, fever, dyspnea, syncope, headache, dizziness, GI bleed, back pain, seizure, CVA, palpatations, mental health, musculoskeletal)? @ -Differential Dyspnea: Coronary syndrome, arrhythmia, tamponade, asthma, COPD, pulmonary embolism, pneumonia, pneumothorax, pulmonary effusion, anaphylaxis, diabetic ketoacidosis, flailed chest, pulmonary contusion, diaphragmatic rupture, anemia, neuromuscula r, this is not meant to be an all-inclusive list. EKG interpreted by me (3pts min.). @ -As above X-rays interpreted by me (1pt min.). @ -Chest x-ray shows possible right lower lobe pneumonia. CT interpreted by me (1pt min.). @ -None done U/S interpreted by me (1pt. min.). @ -None done What testing was considered but not performed or refused? (CT, X-rays, U/S, labs)? Why? @ -None What meds were considered but not given or refused? Why? @ -None Did you discuss the management of the patient with other professionals (professionals i.e. , PA, [facility], lab, RT, psych nurse, psychiatric social worker supervisor, training representative, teacher, correction officer reformatory, disability case manager)? Give summary @ -Discussed management with admitting physician, Dr. Singh of [facility] who accepted the admission. Patient has no PCP. No recent admissions under the other group in the last month. Was smoking cessation discussed for >3mins.? @ -No Was critical care preformed (if so, how long)? @ -Yes, 39 minutes. Were there social determinants of health that impacted care today? How? (Homelessness, low income, unemployed, alcoholism, drug addiction, transportation, low edu. Level, literacy, decrease access to med. care, nursing home, rehab)? @ -No Was there de-escalation of care discussed even if they declined (Discuss DNR or withdrawal of care, Hospice)? DNR status @ -No What co-morbidities impacted this encounter? (DM, HTN, Smoking, COPD, CAD, C ancer, CVA, ARF, Chemo, Hep., AIDS, mental health diagnosis, sleep apnea, morbid obesity)? @ -COPD, chronic hypoxic respiratory failure, CHF, CAD Was patient admitted / discharged? Hospital course, mention meds given and route, prescriptions, significant lab abnormalities, going to OR and other per tinent info. @ -Patient presents emergency department with what appears to be COPD exacerbation as well as acute hypoxic respiratory failure likely secondary to noncompliance with oxygen at home as well as COPD. Patient immediately transitioned to BiPAP from CPAP from EMS. She will be given multiple breathing treatments as well as IV steroids and magnesium. Patient was in agreement this plan. She has no other symptoms other than a cough as well as shortness of breath which started last night. EKG shows no signs of acute ischemia. Chest x-ray shows possible right lower lobe pneumonia. Laboratory studies remarkable for slight leukocytosis of 12.4. Patient's chronically anemic and stable with a hemoglobin 10.7. Patient has elevated carbon dioxide levels and VBG as expected considering she has been off oxygen with her COPD at 91 which is similar to previous presentations. Mildly h yperkalemic at 3.3 which was replenished. Remainder the workup unremarkable. At this time, patient is mentating well, work of breathing improved, wheezing and breath sounds are now improved as well. We will continue treatment with IV steroids, breathing treatments, patient was initiated on pneumonia antibiotics. She has received antibiotics IV within the last 3 months and therefore was started on Zosyn as well as azithromycin. Pulmonology consulted. She will be admitted to stepdown. I spoke with the admitting team, Dr. Singh who accepted the admission. Will continue with BiPAP therapy at this time. Undiagnosed new problem with uncertain prognosis? @ -No Drug Therapy requiring intensive monitoring for toxicity (Heparin, Nitro, Insulin, Cardizem)? @ -No Were any procedures done? @ -No Diagnosis/symptom? @ -Acute on chronic hypoxic respiratory failure secondary to COPD exacerbation and pneumonia in the setting of poor compliance with oxygenation at home. Hypokalemia Acute, or Chronic, or Acute on Chronic? @ -Acute Uncomplicated (without systemic symptoms) or Complicated (systemic symptoms)? @ -Complicated Side effects of treatment? @ -No Exacerbation, Progression, or Severe Exacerbation? @ -No Poses a threat to life or bodily function? How? (Chest pain, USA, MS, pneumonia, PE, COPD, DKA, ARF, appy, cholecystitis, CVA, Diverticulitis, Homicidal, Suicidal, threat to staff... and all critical care pts) @ -Yes - Lab Data Result diagrams: 11/21/23 07:43 11/21/23 07:43 Lab Results 11/21/23 11/21/23 11/21/23 Range/Units 07:43 07:43 07:43 WBC 12.4 H (3.8-10.6) k/uL RBC 3.51 L (3.80-5.40) m/uL Hgb 10.7 L (11.4-16.0) gm/dL Hct 34.7 (34.0-46.0) % MCV 98.8 (80.0-100.0) fL MCH 30.5 (25.0-35.0) pg MCHC 30.8 L (31.0-37.0) g/dL RDW 15.1 (11.5-15.5) % Plt Count 356 (150-450) k/uL MPV 7.3 Neutrophils % 66 % Lymphocytes % 21 % Monocytes % 9 % Eosinophils % 2 % Basophils % 1 % Neutrophils # 8.1 H (1.3-7.7) k/uL Lymphocytes # 2.6 (1.0-4.8) k/uL Monocytes # 1.1 H (0-1.0) k/uL Eosinophils # 0.2 (0-0.7) k/uL Basophils # 0.1 (0-0.2) k/uL Hypochromasia Marked Macrocytosis Slight PT 10.5 (10.0-12.5) sec INR 1.0 (<1.2) APTT 22.2 (22.0-30.0) sec VBG pH (7.31-7.41) VBG pCO2 (37-51) mmHg VBG HCO3 (24-28) mmol/L Sodium 136 L (137-145) mmol/L Potassium 3.3 L (3.5-5.1) mmol/L Chloride 83 L (98-107) mmol/L Carbon Dioxide 48 H* (22-30) mmol/L Anion Gap 5 mmol/L BUN 13 (7-17) mg/dL Creatinine 0.64 (0.52-1.04) mg/dL Est GFR (CKD-EPI)AfAm >90 (>60 ml/min/1.73 sqM) Est GFR (CKD-EPI)NonAf >90 (>60 ml/min/1.73 sqM) Glucose 262 H (74-99) mg/dL Calcium 9.1 (8.4-10.2) mg/dL Magnesium 2.1 (1.6-2.3) mg/dL Total Bilirubin 0.5 (0.2-1.3) mg/dL AST 27 (14-36) U/L ALT 12 (4-34) U/L Alkaline Phosphatase 125 (38-126) U/L Total Protein 6.4 (6.3-8.2) g/dL Albumin 4.0 (3.5-5.0) g/dL Influenza Type A (PCR) (Not Detectd) Influenza Type B (PCR) (Not Detectd) RSV (PCR) (Not Detectd) SARS-CoV-2 (PCR) (Not Detectd) 11/21/23 11/21/23 Range/Units 07:43 07:43 WBC (3.8-10.6) k/uL RBC (3.80-5.40) m/uL Hgb (11.4-16.0) gm/dL Hct (34.0-46.0) % MCV (80.0-100.0) fL MCH (25.0-35.0) pg MCHC (31.0-37.0) g/dL RDW (11.5-15.5) % Plt Count (150-450) k/uL MPV Neutrophils % % Lymphocytes % % Monocytes % % Eosinophils % % Basophils % % Neutrophils # (1.3-7.7) k/uL Lymphocytes # (1.0-4.8) k/uL Monocytes # (0-1.0) k/uL Eosinophils # (0-0.7) k/uL Basophils # (0-0.2) k/uL Hypochromasia Macrocytosis PT (10.0-12.5) sec INR (<1.2) APTT (22.0-30.0) sec VBG pH 7.35 (7.31-7.41) VBG pCO2 91 H* (37-51) mmHg VBG HCO3 50 H (24-28) mmol/L Sodium (137-145) mmol/L Potassium (3.5-5.1) mmol/L Chloride (98-107) mmol/L Carbon Dioxide (22-30) mmol/L Anion Gap mmol/L BUN (7-17) mg/dL Creatinine (0.52-1.04) mg/dL Est GFR (CKD-EPI)AfAm (>60 ml/min/1.73 sqM) Est GFR (CKD-EPI)NonAf (>60 ml/min/1.73 sqM) Glucose (74-99) mg/dL Calcium (8.4-10.2) mg/dL Magnesium (1.6-2.3) mg/dL Total Bilirubin (0.2-1.3) mg/dL AST (14-36) U/L ALT (4-34) U/L Alkaline Phosphatase (38-126) U/L Total Protein (6.3-8.2) g/dL Albumin (3.5-5.0) g/dL Influenza Type A (PCR) Not Detected (Not Detectd) Influenza Type B (PCR) Not Detected (Not Detectd) RSV (PCR) Not Detected (Not Detectd) SARS-CoV-2 (PCR) Not Detected (Not Detectd) - EKG Data -: EKG Interpreted by Me EKG Comments: 12-lead Electrocardiogram Interpretation Note EKG was reviewed and interpreted by myself. 12-lead ECG performed at 0736 is interpreted by me as revealing sinus tachycardia with PVCs at a rate of 101 beats per minute. Left axis deviation. ND interval is 135 ms, QRS duration 123 ms, QTc is 421 ms.. There were no ST or T wave abnormalities to suggest myocardial ischemia or injury. R wave progression across the precordium was d elayed. By my interpretation this EKG is non-diagnostic for acute ischemia. Critical Care Time Critical Care Time: Yes Total Critical Care Time: 39 Disposition Clinical Impression: COPD (chronic obstructive pulmonary disease), BiPAP (biphasic positive airway pressure) dependence, Acute on chronic hypoxic respiratory failure, Pneumonia Disposition: ADMITTED IP TO THIS HOSP Condition: Serious Time of Disposition: 08:48
[2023-11-21] MEDS: FUROSEMIDE 10 MG/ML 4 ML VIAL IV SCH (12:43)
[2023-11-21 12:48] LABS: Glucose,Whole Blood 186 mg/dL (70-110)
[2023-11-21 13:42] LABS: Appearance,Urine Clear (Clear); Bilirubin,Urine Negative (Negative); Blood,Urine Negative (Negative); Color,Urine Colorless; Glucose,Urine (UA) 4+ (Negative); Hyaline Casts,Urine 8 /lpf (0-2); Ketones,Urine Negative (Negative); Leukocyte Esterase,Urine Small (Negative); Mucus,Urine Rare /hpf; Nitrite,Urine Negative (Negative); Protein,Urine Trace (Negative); RBC,Urine 2 /hpf (0-5); Specific Gravity,Urine 1.011 (1.001-1.035); Squamous Epithelial Cell,Urine 2 /hpf (0-4); Urobilinogen,Urine <2.0 mg/dL (<2.0); WBC,Urine 7 /hpf (0-5)
--- NOTE | 2023-11-21 14:49 | P.CNPUL ---
History of Present Illness Consult date: 11/21/23 Requesting physician: Basim Chi Reason for consult: COPD, hypoxemia, pneumonia Chief complaint: Shortness of breath History of present illness: This is a 64-year-old female, familiar to our service, known to have history of COPD, chronic hypoxic and hypercapnic respiratory failure, patient is on home O2 she also has a BiPAP at home. Patient was brought into the ER today with few days history of increased shortness of breath, cough, wheezing. Chest x-ray on admission is suspicious for right lower lobe pneumonia, possible underlying interstitial edema. Patient was also noted to have significant hypoxia and hypercapnia. Venous ABG showed a pCO2 of 91 pH of 7.35. Her bicarb is 48. BNP level is elevated 11,600, procalcitonin level is pending. Meantime the patient is receiving bronchodilators, antibiotics, diuretics, and steroids. She is on BiPAP at 16/6/60%, O2 saturation was noted to be in the range of 95 to 99%. Patient is hemodynamically stable. But she does seem quite dyspneic. According to the patient she is feeling better now compared to how she felt when she was in the ER earlier today. Patient has mostly cough, wheezing, shortness of breath, denies fever or chills denies any hemoptysis. Denies any chest pain. Review of Systems REVIEW OF SYSTEMS: CONSTITUTIONAL: Denies any recent significant weight loss or weight gain. EYES: Denies change in vision. EARS, NOSE, MOUTH, THROAT: Denies headaches, denies sore throat. CARDIOVASCULAR: Denies chest pain, palpitations or syncopal episodes. RESPIRATORY: Positive for shortness of breath, cough, congestion no hemoptysis. GASTROINTESTINAL: Denies change in appetite, denies abdominal pain GENITOURINARY: Denies hematuria, denies infections. MUSKULOSKELETAL: Denies pain, denies swelling. INTEGUMENTARY: Denies rash, denies eczema. NEUROLOGICAL: Denies recent memory loss, no recent seizure activity. PSYCHIATRIC: Denies anxiety, denies depression. HEMATOLOGIC/LYMPHATIC: Denies anemia, denies enlarged lymph nodes. Past Medical History Past Medical History: Coronary Artery Disease (CAD), Chest Pain / Angina, COPD, Myocardial Infarction ([place]), Respiratory Disorder Additional Past Medical History / Comment(s): Chronic hypercapnic respiratory failure, home oxygen at 5L/NC, bipap at night, tracheobronchitis, severe bicuspid aortic valve stenosis, chronic low back pain, DJD Last Myocardial Infarction Date:: 04/2023 History of Any Multi-Drug Resistant Organisms: None Reported Past Surgical History: Breast Surgery, Heart Catheterization With Stent, Tubal Ligation Additional Past Surgical History / Comment(s): Bilateral breast reductions, bilateral cataract removals. Past Anesthesia/Blood Transfusion Reactions: No Reported Reaction Date of Last Stent Placement:: 04/2023 Past Psychological History: Anxiety, Depression Additional Psychological History / Comment(s): Pt resides with her spouse. She has home oxygen and a nebulizer. She chooses not to drive, her spouse drives. She had [facility] after last hospitalization but no longer coming to home. Smoking Status: Former smoker Past Alcohol Use History: None Reported Additional Past Alcohol Use History / Comment(s): Pt started smoking as a teen and quit within the last 5 years ago. She was a 2 ppd smoker. Past Drug Use History: None Reported - Past Family History Father History Unknown: Yes Mother Family Medical History: Congestive Heart Failure (CHF), Diabetes Mellitus Medications and Allergies Home Medications Medication Instructions Recorded Confirmed Type Albuterol Inhaler [Ventolin Hfa 2 puff INHALATION RT-Q4H PRN 04/09/22 11/21/23 History Inhaler] Atorvastatin [Lipitor] 40 mg PO DAILY@1700 04/09/22 11/21/23 History Aspirin 81 mg PO DAILY 30 Days #30 tab 04/12/22 11/21/23 Rx Budesonide/Formoterol Fumarate 2 puff INHALATION RT-BID 07/13/22 11/21/23 History [Symbicort 160-4.5 Mcg Inhaler] Ipratropium-Albuterol Nebulize 3 ml INHALATION RT-QID PRN 09/23/22 11/21/23 History [Duoneb 0.5 mg-3 mg/3 ml Soln] busPIRone HCl [Buspar] 5 mg PO BID 10/12/23 11/21/23 History Furosemide [Lasix] 40 mg PO DAILY tab 10/16/23 11/21/23 Rx Dapagliflozin Propanediol [Farxiga] 5 mg PO DAILY 30 Days #30 tablet 10/20/23 11/21/23 Rx Metoprolol Succinate (ER) [Toprol 25 mg PO BID 11/21/23 11/21/23 History Xl] Potassium Chloride ER [K-Dur 20] 20 meq PO BID 11/21/23 11/21/23 History Sertraline [Zoloft] 150 mg PO DAILY 11/21/23 11/21/23 History predniSONE 5 mg PO DAILY 11/21/23 11/21/23 History Allergies Allergy/AdvReac Type Severity Reaction Status Date / Time No Known Allergies Allergy Verified 11/21/23 10:32 Physical Exam Vitals: Vital Signs Temp Pulse Pulse Resp BP BP Pulse Ox 11/21/23 12:38 83 19 112/72 99 11/21/23 11:08 11/21/23 10:33 96.7 F L 83 98/51 99 11/21/23 10:04 98.8 F 73 20 101/58 95 11/21/23 09:19 11/21/23 08:03 89 22 114/63 100 11/21/23 07:56 85 11/21/23 07:44 11/21/23 07:40 97 11/21/23 07:39 24 11/21/23 07:34 94 24 132/71 100 FiO2 11/21/23 12:38 11/21/23 11:08 100 11/21/23 10:33 11/21/23 10:04 11/21/23 09:19 60 11/21/23 08:03 11/21/23 07:56 11/21/23 07:44 100 11/21/23 07:40 11/21/23 07:39 11/21/23 07:34 Intake and Output 11/20/23 11/21/23 11/21/23 22:59 06:59 14:59 Intake Total 20 Balance 20 Intake: IV 20 Invasive Line 1 10 Invasive Line 2 10 Other: Voiding Method Bedside Commode Weight 90.718 kg GENERAL EXAM: Alert, pleasant 63-year-old female, on BiPAP at present, 16/60% HEAD: Normocephalic. Atraumatic EYES: Normal reaction of pupils, equal size. NOSE: Clear with pink turbinates. THROAT: No erythema or exudates. NECK: No masses, no JVD. CHEST: No chest wall deformity. LUNGS: Crackles rhonchi and wheezes noted bilaterally. CVS: S1 and S2 normal with no audible murmur, regular rhythm. ABDOMEN: No hepatosplenomegaly, normal bowel sounds, no guarding or rigidity. SKIN: No rashes CENTRAL NERVOUS SYSTEM: No focal deficits, tone is normal in all 4 extremities. EXTREMITIES: Trace of bipedal edema no clubbing, no cyanosis. Peripheral pulses are intact. Results - Laboratory Findings CBC and BMP: 11/21/23 07:43 11/21/23 07:43 PT/INR, D-dimer PT 10.5 sec (10.0-12.5) 11/21/23 07:43 INR 1.0 (<1.2) 11/21/23 07:43 Abnormal lab findings: Abnormal Labs 11/21/23 11/21/23 11/21/23 07:43 07:43 07:43 WBC 12.4 H RBC 3.51 L Hgb 10.7 L MCHC 30.8 L Neutrophils # 8.1 H Monocytes # 1.1 H VBG pCO2 91 H* VBG HCO3 50 H Sodium 136 L Potassium 3.3 L Chloride 83 L Carbon Dioxide 48 H* Glucose 262 H POC Glucose (mg/dL) Urine Protein Urine Glucose (UA) Ur Leukocyte Esterase Urine WBC Hyaline Casts Urine Mucus 11/21/23 11/21/23 12:47 13:24 WBC RBC Hgb MCHC Neutrophils # Monocytes # VBG pCO2 VBG HCO3 Sodium Potassium Chloride Carbon Dioxide Glucose POC Glucose (mg/dL) 186 H Urine Protein Trace H Urine Glucose (UA) 4+ H Ur Leukocyte Esterase Small H Urine WBC 7 H Hyaline Casts 8 H Urine Mucus Rare H - Diagnostic Findings Chest x-ray: image reviewed (As noted in HPI) Assessment and Plan Assessment: Impression: Acute on chronic hypoxic and hypercapnic respiratory failure. Secondary to acute exacerbation of COPD and suspects right lower lobe pneumonia, could be community-acquired or could be healthcare acquired pneumonia. Also suspect acute systolic congestive heart failure based on the chest x-ray findings and based on elevated BNP level. Advanced COPD, oxygen dependent at 5 L/min nasal cannula Chronic hypercapnic respiratory failure maintained on BiPAP at home Coronary artery disease, involving the LAD, with 40 to 50% stenosis, and a patent proximal RCA stent Ischemic cardiomyopathy with an ejection fraction of 25 to 30% Severe aortic stenosis with history of previous aortic valve valvuloplasty. History of hyperlipidemia History of hypertension History of chronic low back pain Obesity Prior history of heavy tobacco use Recommendation: Continue BiPAP, titrate accordingly Continue antibiotics Continue bronchodilators Continue diuretics Continue oxygen and titrate accordingly Continue steroids Resume home meds Daily weights Strict I's and O's GI DVT prophylaxis Will continue to follow Time with Patient: Greater than 30
[2023-11-21] MEDS ORDERED: methylPREDNISolone SOD SUCCI 40 MG/ML 1 ML VIAL IV SCH (16:00)
[2023-11-21] MEDS: methylPREDNISolone SOD SUCCI 125 MG/2 ML VIAL IV SCH (16:09)
[2023-11-21] MEDS: PIPERACILLIN-TAZOBACTAM 3.375 GM in SODIUM CHLORIDE 0.9% 100 ML IVPB SCH (16:09)
[2023-11-21] MEDS: ACETAMINOPHEN TAB 325 MG TAB PO PRN (16:12)
[2023-11-21] MEDS: ATORVASTATIN 40 MG TAB PO SCH (16:12)
[2023-11-21] MEDS: HEPARIN SODIUM,PORCINE 5,000 UNIT/ML 1 ML VIAL SQ SCH (16:12)
[2023-11-21 16:13] LABS: Glucose,Whole Blood 191 mg/dL (70-110)
[2023-11-21] MEDS: INSULIN ASPART (NovoLOG) 100 UNIT/ML VIAL SQ SCH (16:26)
[2023-11-21] MEDS: HYDROcodone/APAP 5-325MG 1 EACH TAB PO PRN (16:26)
[2023-11-21] MEDS: POTASSIUM CHLORIDE ER 20 MEQ TAB.ER PO STA (16:26)
--- NOTE | 2023-11-21 16:41 | P.HPIM ---
History of Present Illness H&P Date: 11/21/23 Patient is a 63-year-old female with history of advanced COPD, on BiPAP, chronic hypoxic respiratory failure, dyslipidemia, depression, diastolic heart failure, obstructive sleep apnea, CAD status post stent, severe arctic stenosis status post balloon aortic valvuloplasty, former nicotine dependence, hypertension presenting with shortness of breath. Patient claims that she has been having chills for 2 days, and recently not been wearing her BiPAP at home. She is reportedly noncompliant with her medications and her BiPAP. She denies any chest pain, cough, abdominal pain, nausea, vomiting, urinary or bowel complaints. Denies any current smoking, alcohol use or illicit drug use. She denies any travel history or sick contacts. In the ER, vital signs within normal limits, saturating well on BiPAP /. WBC 12.4, hemoglobin 10.7, platelet 256, pH 7.35, pCO2 91, sodium 136, potassium 3.3, bicarb 48, creatinine 0.64, proBNP 11 600, glucose range between 180 60-62, urinalysis showed small leukocyte esterase, negative nitrates, respiratory viral panel negative. Chest x-ray independently interpreted, shows interstitial opacities, pleural effusion more prominent on the right lower lobe. EKG independently interpreted, shows sinus tachycardia with PVCs and left anterior fascicular block. Patient started on IV antibiotics, bronchodilators, IV steroids, placed on BiPAP. Being followed by pulmonology as well. Pertinent positives and negatives as discussed in HPI, a complete review of systems was performed and all other systems are negative. Patient seen and examined at bedside. Vital signs reviewed General: nontoxic, no distress, appears at stated age Derm: warm, dry Head: atraumatic, normocephalic, symmetric Eyes: EOMI, no lid lag, anicteric sclera, pupils equal round reactive to light ENT: Nose and ears atraumatic Neck: No thyromegaly, supple Mouth: no lip lesion, mucus membranes moist Cardiovascular: S1S2 reg, no murmur, no edema Lungs: clear to auscultation bilateral, no rhonchi, no rales, no wheeze, no accessory muscle use Abdominal: soft, nontender to palpation, no guarding, no appreciable organomegaly Ext: no gross muscle atrophy, muscle strength muscle strength 5 out of 5 in all 4 extremities, no contractures Neuro: CN II-XII grossly intact Psych: Alert, oriented, appropriate affect Assessment/Plan: Active: Acute on chronic hypoxic, hypercapnic respiratory failure Acute COPD exacerbation Suspected right lower lobe pneumonia, community-acquired versus aspiration Acute on chronic diastolic heart failure exacerbation Hyperglycemia -Pulmonology note reviewed, continue IV antibiotics, bronchodilators and steroids -Continue IV azithromycin 500 mg for 2 more days, IV Zosyn 3.375 g every 8 hours for 5 days -Solu-Medrol 60 IV every 8 hours, monitor blood sugars -Continue BiPAP -Continue sliding scale insulin, monitor for hypoglycemia -Symbicort twice daily, DuoNebs every 4 hours as needed -IV Lasix 40 every 12 hours, monitor for electrolytes and renal function -Continue metoprolol 25 twice daily, aspirin 81 mg, atorvastatin 40 mg -Patient apparently already part of palliative care, may need further goals of care discussions Hypokalemia -Given 40 mill equivalent oral potassium once -Repeat magnesium and BMP tomorrow Chronic: Depression/anxiety The patient is admitted with an anticipated greater than 2 midnight stay as inpa tient status for evaluation of acute on chronic hypoxic and hypercapnic respiratory failure. Surrogate decision-maker: CODE STATUS: DNR/DNI DVT prophylaxis: Subcu heparin Anticipated discharge date: Pending clinical course Anticipated discharge place: Pending clinical course A total of 55 minutes was spent on the care of this complex patient more than 50% of the time was spent in counseling and care coordination. Past Medical History Past Medical History: Coronary Artery Disease (CAD), Chest Pain / Angina, COPD, Myocardial Infarction ([place]), Respiratory Disorder Additional Past Medical History / Comment(s): Chronic hypercapnic respiratory failure, home oxygen at 5L/NC, bipap at night, tracheobronchitis, severe bicuspid aortic valve stenosis, chronic low back pain, DJD Last Myocardial Infarction Date:: 04/2023 History of Any Multi-Drug Resistant Organisms: None Reported Past Surgical History: Breast Surgery, Heart Catheterization With Stent, Tubal Ligation Additional Past Surgical History / Comment(s): Bilateral breast reductions, bilateral cataract removals. Past Anesthesia/Blood Transfusion Reactions: No Reported Reaction Date of Last Stent Placement:: 04/2023 Past Psychological History: Anxiety, Depression Additional Psychological History / Comment(s): Pt resides with her spouse. She has home oxygen and a nebulizer. She chooses not to drive, her spouse drives. She had [facility] after last hospitalization but no longer coming to home. Smoking Status: Former smoker Past Alcohol Use History: None Reported Additional Past Alcohol Use History / Comment(s): Pt started smoking as a teen and quit within the last 5 years ago. She was a 2 ppd smoker. Past Drug Use History: None Reported - Past Family History Father History Unknown: Yes Mother Family Medical History: Congestive Heart Failure (CHF), Diabetes Mellitus Medications and Allergies Home Medications Medication Instructions Recorded Confirmed Type Albuterol Inhaler [Ventolin Hfa 2 puff INHALATION RT-Q4H PRN 04/09/22 11/21/23 History Inhaler] Atorvastatin [Lipitor] 40 mg PO DAILY@1700 04/09/22 11/21/23 History Aspirin 81 mg PO DAILY 30 Days #30 tab 04/12/22 11/21/23 Rx Budesonide/Formoterol Fumarate 2 puff INHALATION RT-BID 07/13/22 11/21/23 History [Symbicort 160-4.5 Mcg Inhaler] Ipratropium-Albuterol Nebulize 3 ml INHALATION RT-QID PRN 09/23/22 11/21/23 History [Duoneb 0.5 mg-3 mg/3 ml Soln] busPIRone HCl [Buspar] 5 mg PO BID 10/12/23 11/21/23 History Furosemide [Lasix] 40 mg PO DAILY tab 10/16/23 11/21/23 Rx Dapagliflozin Propanediol [Farxiga] 5 mg PO DAILY 30 Days #30 tablet 10/20/23 11/21/23 Rx Metoprolol Succinate (ER) [Toprol 25 mg PO BID 11/21/23 11/21/23 History Xl] Potassium Chloride ER [K-Dur 20] 20 meq PO BID 11/21/23 11/21/23 History Sertraline [Zoloft] 150 mg PO DAILY 11/21/23 11/21/23 History predniSONE 5 mg PO DAILY 11/21/23 11/21/23 History Allergies Allergy/AdvReac Type Severity Reaction Status Date / Time No Known Allergies Allergy Verified 11/21/23 10:32 Physical Exam Vitals: Vital Signs Temp Pulse Pulse Resp BP BP Pulse Ox 11/21/23 16:01 97.3 F L 76 17 102/58 99 11/21/23 15:49 11/21/23 12:38 83 19 112/72 99 11/21/23 11:08 11/21/23 10:33 96.7 F L 83 98/51 99 11/21/23 10:04 98.8 F 73 20 101/58 95 11/21/23 09:19 11/21/23 08:03 89 22 114/63 100 11/21/23 07:56 85 11/21/23 07:44 11/21/23 07:40 97 11/21/23 07:39 24 11/21/23 07:34 94 24 132/71 100 FiO2 11/21/23 16:01 11/21/23 15:49 60 11/21/23 12:38 11/21/23 11:08 100 11/21/23 10:33 11/21/23 10:04 11/21/23 09:19 60 11/21/23 08:03 11/21/23 07:56 11/21/23 07:44 100 11/21/23 07:40 11/21/23 07:39 11/21/23 07:34 Intake and Output 11/21/23 11/21/23 11/21/23 06:59 14:59 22:59 Intake Total 20 Balance 20 Intake: IV 20 Invasive Line 1 10 Invasive Line 2 10 Other: Voiding Method Bedside Commode # Voids 1 Weight 90.718 kg Results CBC & Chem 7: 11/21/23 07:43 11/21/23 07:43 Labs: Abnormal Lab Results - Last 24 Hours (Table) 11/21/23 11/21/23 11/21/23 Range/Units 07:43 07:43 07:43 WBC 12.4 H (3.8-10.6) k/uL RBC 3.51 L (3.80-5.40) m/uL Hgb 10.7 L (11.4-16.0) gm/dL MCHC 30.8 L (31.0-37.0) g/dL Neutrophils # 8.1 H (1.3-7.7) k/uL Monocytes # 1.1 H (0-1.0) k/uL VBG pCO2 91 H* (37-51) mmHg VBG HCO3 50 H (24-28) mmol/L Sodium 136 L (137-145) mmol/L Potassium 3.3 L (3.5-5.1) mmol/L Chloride 83 L (98-107) mmol/L Carbon Dioxide 48 H* (22-30) mmol/L Glucose 262 H (74-99) mg/dL POC Glucose (mg/dL) (70-110) mg/dL Urine Protein (Negative) Urine Glucose (UA) (Negative) Ur Leukocyte Esterase (Negative) Urine WBC (0-5) /hpf Hyaline Casts (0-2) /lpf Urine Mucus (None) /hpf 11/21/23 11/21/23 11/21/23 Range/Units 12:47 13:24 16:11 WBC (3.8-10.6) k/uL RBC (3.80-5.40) m/uL Hgb (11.4-16.0) gm/dL MCHC (31.0-37.0) g/dL Neutrophils # (1.3-7.7) k/uL Monocytes # (0-1.0) k/uL VBG pCO2 (37-51) mmHg VBG HCO3 (24-28) mmol/L Sodium (137-145) mmol/L Potassium (3.5-5.1) mmol/L Chloride (98-107) mmol/L Carbon Dioxide (22-30) mmol/L Glucose (74-99) mg/dL POC Glucose (mg/dL) 186 H 191 H (70-110) mg/dL Urine Protein Trace H (Negative) Urine Glucose (UA) 4+ H (Negative) Ur Leukocyte Esterase Small H (Negative) Urine WBC 7 H (0-5) /hpf Hyaline Casts 8 H (0-2) /lpf Urine Mucus Rare H (None) /hpf Thrombosis Risk Factor Assmnt - Choose All That Apply Each Factor Represents 1 point: Abnormal pulmonary function (COPD), Obesity (BMI >25) Each Risk Factor Represents 2 Points: Age 61-74 years Thrombosis Risk Factor Assessment Total Risk Factor Score: 4 Thrombosis Risk Factor Assessment Level: Moderate Risk
[2023-11-21 20:09] LABS: Glucose,Whole Blood 166 mg/dL (70-110)
[2023-11-21] MEDS: busPIRone HCl 5 MG TAB PO SCH (20:38)
[2023-11-21] MEDS: METOPROLOL SUCCINATE (ER) 25 MG TAB.ER.24H PO SCH (20:39)
[2023-11-21] MEDS: IPRATROPIUM-ALBUTEROL 3 ML NEB INHALATION PRN (21:39)
[2023-11-21] MEDS: SYMBICORT 160-4.5 MCG INHALER INHALATION SCH (21:39)
[2023-11-22 06:07] LABS: Glucose,Whole Blood 169 mg/dL (70-110)
[2023-11-22 07:51] LABS: ALT 13 U/L (4-34); AST 30 U/L (14-36); African American GFR (CKD) >90 (>60 ml/min/1.73 sqM); Albumin 3.7 g/dL (3.5-5.0); Alkaline Phosphatase 119 U/L (38-126); Anion Gap 8 mmol/L; Blood Urea Nitrogen 20 mg/dL (7-17); Calcium 8.5 mg/dL (8.4-10.2); Chloride 87 mmol/L (98-107); Glucose 171 mg/dL (74-99); Magnesium 2.1 mg/dL (1.6-2.3); Non-African American GFR(CKD) >90 (>60 ml/min/1.73 sqM); Potassium 4.1 mmol/L (3.5-5.1); Sodium 135 mmol/L (137-145); Total Bilirubin 0.5 mg/dL (0.2-1.3); Total Protein 6.1 g/dL (6.3-8.2)
--- NOTE | 2023-11-22 07:55 | XR ---
EXAMINATION TYPE: XR chest 1V portable DATE OF EXAM: 11/22/2023 HISTORY: Shortness of breath. COMPARISON: 11/21/2023 TECHNIQUE: Single view of the chest is submitted. FINDINGS: Demonstrated are scattered senescent parenchymal change. Right lower lobe infiltrate persists essentially unchanged. The heart is stable. Hilar and mediastinal structures are within normal limits. Degenerative changes are seen of the dorsal spine. IMPRESSION: 1. Right lower lobe infiltrate persists essentially unchanged.
[2023-11-22 08:01] LABS: Basophils % (A) 0 %; Eosinophils % (A) 0 %; HCT 30.7 % (34.0-46.0); HGB 9.7 gm/dL (11.4-16.0); Hypochromasia Marked; Lymphocytes # (A) 0.2 k/uL (1.0-4.8); Lymphocytes % (A) 3 %; MCH 31.9 pg (25.0-35.0); MCHC 31.8 g/dL (31.0-37.0); MCV 100.5 fL (80.0-100.0); Macrocytosis Slight; Mean Platelet Volume 7.4; Monocytes # (A) 0.2 k/uL (0-1.0); Monocytes % (A) 3 %; Neutrophils # (A) 7.6 k/uL (1.3-7.7); Neutrophils % (A) 94 %; Platelet Count 313 k/uL (150-450); RBC 3.05 m/uL (3.80-5.40); WBC 8.1 k/uL (3.8-10.6)
[2023-11-22 08:08] LABS: Carbon Dioxide 40 mmol/L (22-30)
[2023-11-22] MEDS: ASPIRIN 81 MG PO SCH (08:46)
[2023-11-22] MEDS: SERTRALINE 100 MG TAB PO SCH (08:47)
[2023-11-22] MEDS: AZITHROMYCIN 500 MG in SODIUM CHLORIDE 0.9% 250 ML IVPB SCH (08:48)
[2023-11-22 08:49] LABS: Stomatocytes Present
[2023-11-22 11:10] LABS: Glucose,Whole Blood 308 mg/dL (70-110)
--- NOTE | 2023-11-22 14:45 | P.PN ---
Subjective Progress Note Date: 11/22/23 Hospital Course: 63-year-old female with history of advanced COPD, on BiPAP, chronic hypoxic re spiratory failure, dyslipidemia, depression, diastolic heart failure, obstructive sleep apnea, CAD status post stent, severe arctic stenosis status post balloon aortic valvuloplasty, former nicotine dependence, hypertension presenting with shortness of breath. In the ER, vital signs within normal l imits, saturating well on BiPAP 12/6. WBC 12.4, hemoglobin 10.7, platelet 256, pH 7.35, pCO2 91, sodium 136, potassium 3.3, bicarb 48, creatinine 0.64, proBNP 11 600, glucose range between 180 60-62, urinalysis showed small leukocyte esterase, negative nitrates, respiratory viral panel negative. Chest x-ray independently interpreted, shows interstitial opacities, pleural effusion more prominent on the right lower lobe. EKG independently interpreted, shows sinus tachycardia with PVCs and left anterior fascicular block. Patient started on IV antibiotics, bronchodilators, IV steroids, placed on BiPAP. Being followed by pulmonology as well. Subjective: Patient seen and examined at bedside. Improving well with BiPAP. Pertinent positives and negatives as discussed above, a complete review of systems was performed and all other systems are negative. Vitals Signs Reviewed. General: Nontoxic, no distress, appears at stated age, on BiPAP, morbidly obese Derm: Warm, dry Head: Atraumatic, normocephalic, symmetric Eyes: EOMI, no lid lag, anicteric sclera Mouth: No lip lesion, mucus membranes moist Cardiovascular: S1S2 reg, no murmur Lungs: CTA bilateral, no rhonchi, no rales, no accessory muscle use Abdominal: Soft, nontender to palpation, no guarding, no appreciable organomegaly Ext: No gross muscle atrophy, no edema, no contractures Neuro: CN II-XI grossly intact, no focal neuro deficits Psych: Alert, oriented, appropriate affect Data Reviewed Today: Pertinent Labs: Hemoglobin 9.7, sodium 135, potassium 4.1, bicarb 40, creatinine 0.65, blood sugars range between 1 66-3 08 Imaging: No new imaging Assessment and Plan: Active: Acute on chronic hypoxic, hypercapnic respiratory failure Acute COPD exacerbation Suspected right lower lobe pneumonia, community-acquired versus aspiration Acute on chronic diastolic heart failure exacerbation Type 2 diabetes, hyperglycemia -Discussed management with pulmonology, possible discharge tomorrow -Continue IV azithromycin 500 mg for 2 more days, IV Zosyn 3.375 g every 8 hours for 5 days -Solu-Medrol 60 IV every 8 hours, monitor blood sugars -Continue BiPAP -Continue sliding scale insulin, monitor for hypoglycemia -Symbicort twice daily, DuoNebs every 4 hours as needed -IV Lasix 40 every 12 hours, monitor for electrolytes and renal function -Continue metoprolol 25 twice daily, aspirin 81 mg, atorvastatin 40 mg -Patient apparently already part of palliative care, may need further goals of care discussions Hypokalemia, resolved Chronic: Depression/anxiety DVT ppx: Subcu heparin Code status: Full code Anticipated discharge place: Pending clinical course Anticipated discharge time: pending clinical course Objective - Vital Signs Vital signs: Vital Signs Temp 97 F L 11/22/23 08:30 Pulse 90 11/22/23 12:08 Resp 17 11/22/23 11:42 BP 101/65 11/22/23 11:42 Pulse Ox 98 11/22/23 11:42 FiO2 60 11/22/23 11:57 Intake & Output 11/21/23 11/22/23 11/22/23 18:59 06:59 18:59 Intake Total 20 20 10 Output Total 200 Balance 20 -180 10 Weight 90.718 kg 92.5 kg Intake: IV 20 20 10 Invasive Line 1 10 20 10 Invasive Line 2 10 Output: Urine 200 Other: Voiding Method Bedside Commode Bedside Commode Bedside Commode # Voids 1 1 - Labs CBC & Chem 7: 11/22/23 07:27 11/22/23 07:10 Labs: Abnormal Lab Results - Last 24 Hours (Table) 11/21/23 11/21/23 11/22/23 Range/Units 16:11 20:07 06:06 RBC (3.80-5.40) m/uL Hgb (11.4-16.0) gm/dL Hct (34.0-46.0) % MCV (80.0-100.0) fL Lymphocytes # (1.0-4.8) k/uL Sodium (137-145) mmol/L Chloride (98-107) mmol/L Carbon Dioxide (22-30) mmol/L BUN (7-17) mg/dL Glucose (74-99) mg/dL POC Glucose (mg/dL) 191 H 166 H 169 H (70-110) mg/dL Total Protein (6.3-8.2) g/dL 11/22/23 11/22/23 11/22/23 Range/Units 07:10 07:27 11:09 RBC 3.05 L (3.80-5.40) m/uL Hgb 9.7 L (11.4-16.0) gm/dL Hct 30.7 L (34.0-46.0) % MCV 100.5 H (80.0-100.0) fL Lymphocytes # 0.2 L (1.0-4.8) k/uL Sodium 135 L (137-145) mmol/L Chloride 87 L (98-107) mmol/L Carbon Dioxide 40 H (22-30) mmol/L BUN 20 H (7-17) mg/dL Glucose 171 H (74-99) mg/dL POC Glucose (mg/dL) 308 H (70-110) mg/dL Total Protein 6.1 L (6.3-8.2) g/dL
[2023-11-22 16:19] LABS: Glucose,Whole Blood 158 mg/dL (70-110)
--- NOTE | 2023-11-22 17:10 | P.PN ---
Subjective Progress Note Date: 11/22/23 Principal diagnosis: Acute exacerbation of COPD with acute on chronic hypoxic and hypercapnic respiratory failure This is a 64-year-old female, familiar to our service, known to have history of COPD, chronic hypoxic and hypercapnic respiratory failure, patient is on home O2 she also has a BiPAP at home. Patient was brought into the ER today with few days history of increased shortness of breath, cough, wheezing. Chest x-ray on admission is suspicious for right lower lobe pneumonia, possible underlying interstitial edema. Patient was also noted to have significant hypoxia and hypercapnia. Venous ABG showed a pCO2 of 91 pH of 7.35. Her bicarb is 48. BNP level is elevated 11,600, procalcitonin level is pending. Meantime the patient is receiving bronchodilators, antibiotics, diuretics, and steroids. She is on BiPAP at 16/6/60%, O2 saturation was noted to be in the range of 95 to 99%. Patient is hemodynamically stable. But she does seem quite dyspneic. According to the patient she is feeling better now compared to how she felt when she was in the ER earlier today. Patient has mostly cough, wheezing, shortness of breath, denies fever or chills denies any hemoptysis. Denies any chest pain. Evaluated today on 11/22/2023, patient remains intermittently on BiPAP, alternating with nasal cannula doing better today compared to yesterday, remains on bronchodilators steroids and diuretics, chest x-ray is showing improvement in her right lower lobe opacity/interstitial edema. WBC count is 8.1 hemoglobin 9.7 basic metabolic profile is normal bicarb is 14 creatinine is 0.65 patient remains on bronchodilators she is also on diuretics in the form of Lasix 40 mg IV push twice daily she is also on methylprednisolone. Objective - Vital Signs Vital signs: Vital Signs Temp 97.2 F L 11/22/23 15:57 Pulse 90 11/22/23 16:01 Resp 16 11/22/23 15:57 BP 93/58 11/22/23 15:57 Pulse Ox 100 11/22/23 15:57 FiO2 60 11/22/23 15:50 Intake & Output 11/21/23 11/22/23 11/22/23 18:59 06:59 18:59 Intake Total 20 20 10 Output Total 200 Balance 20 -180 10 Weight 90.718 kg 92.5 kg Intake: IV 20 20 10 Invasive Line 1 10 20 10 Invasive Line 2 10 Output: Urine 200 Other: Voiding Method Bedside Commode Bedside Commode Bedside Commode # Voids 1 1 - Exam GENERAL EXAM: Alert, pleasant 63-year-old female, on BiPAP HEAD: Normocephalic. Atraumatic EYES: Normal reaction of pupils, equal size. NOSE: Clear with pink turbinates. THROAT: No erythema or exudates. NECK: No masses, no JVD. CHEST: No chest wall deformity. LUNGS: Diminished breath sounds at the bases no crackles rhonchi or wheezes CVS: S1 and S2 normal with no audible murmur, regular rhythm. ABDOMEN: No hepatosplenomegaly, normal bowel sounds, no guarding or rigidity. SKIN: No rashes CENTRAL NERVOUS SYSTEM: No focal deficits, tone is normal in all 4 extremities. EXTREMITIES: Trace of bipedal edema no clubbing, no cyanosis. Peripheral pulses are intact. - Labs CBC & Chem 7: 11/22/23 07:27 11/22/23 07:10 Labs: Abnormal Lab Results - Last 24 Hours (Table) 11/21/23 11/22/23 11/22/23 Range/Units 20:07 06:06 07:10 RBC (3.80-5.40) m/uL Hgb (11.4-16.0) gm/dL Hct (34.0-46.0) % MCV (80.0-100.0) fL Lymphocytes # (1.0-4.8) k/uL Sodium 135 L (137-145) mmol/L Chloride 87 L (98-107) mmol/L Carbon Dioxide 40 H (22-30) mmol/L BUN 20 H (7-17) mg/dL Glucose 171 H (74-99) mg/dL POC Glucose (mg/dL) 166 H 169 H (70-110) mg/dL Total Protein 6.1 L (6.3-8.2) g/dL 11/22/23 11/22/23 11/22/23 Range/Units 07:27 11:09 16:17 RBC 3.05 L (3.80-5.40) m/uL Hgb 9.7 L (11.4-16.0) gm/dL Hct 30.7 L (34.0-46.0) % MCV 100.5 H (80.0-100.0) fL Lymphocytes # 0.2 L (1.0-4.8) k/uL Sodium (137-145) mmol/L Chloride (98-107) mmol/L Carbon Dioxide (22-30) mmol/L BUN (7-17) mg/dL Glucose (74-99) mg/dL POC Glucose (mg/dL) 308 H 158 H (70-110) mg/dL Total Protein (6.3-8.2) g/dL Microbiology - Last 24 Hours (Table) 11/21/23 09:07 Blood Culture - Preliminary Blood Assessment and Plan Assessment: Impression: Acute on chronic hypoxic and hypercapnic respiratory failure. Secondary to acute exacerbation of COPD and suspects right lower lobe pneumonia, could be community-acquired or could be healthcare acquired pneumonia. Also suspect acute systolic congestive heart failure based on the chest x-ray findings and based on elevated BNP level. Advanced COPD, oxygen dependent at 5 L/min nasal cannula Chronic hypercapnic respiratory failure maintained on BiPAP at home Coronary artery disease, involving the LAD, with 40 to 50% stenosis, and a patent proximal RCA stent Ischemic cardiomyopathy with an ejection fraction of 25 to 30% Severe aortic stenosis with history of previous aortic valve valvuloplasty. History of hyperlipidemia History of hypertension History of chronic low back pain Obesity Prior history of heavy tobacco use Recommendation: Continue BiPAP, titrate accordingly Continue antibiotics Continue bronchodilators Continue diuretics Continue oxygen and titrate accordingly Continue steroids Today discharge planning in the next 24 hours GI DVT prophylaxis Will continue to follow Time with Patient: Less than 30
[2023-11-22 19:54] LABS: Glucose,Whole Blood 187 mg/dL (70-110)
[2023-11-23 05:57] LABS: Glucose,Whole Blood 207 mg/dL (70-110)
[2023-11-23 10:08] LABS: African American GFR (CKD) 82 (>60 ml/min/1.73 sqM); Blood Urea Nitrogen 35 mg/dL (7-17); Calcium 8.6 mg/dL (8.4-10.2); Chloride 90 mmol/L (98-107); Glucose 113 mg/dL (74-99); Magnesium 2.4 mg/dL (1.6-2.3); Non-African American GFR(CKD) 71 (>60 ml/min/1.73 sqM); Potassium 3.7 mmol/L (3.5-5.1); Sodium 140 mmol/L (137-145)
[2023-11-23 10:15] LABS: Anion Gap 5 mmol/L
[2023-11-23 10:26] LABS: Carbon Dioxide 45 mmol/L (22-30)
[2023-11-23 11:30] LABS: Glucose,Whole Blood 151 mg/dL (70-110)
[2023-11-23 12:39] VITALS: BP 103/64; PULSE 93; RESP 18; TEMP 97.4
--- NOTE | 2023-11-23 12:50 | P.DS ---
Providers Date of admission: 11/21/23 08:54 Expected date of discharge: 11/23/23 Attending physician: Basim Chi MD Consults: 11/21/23 08:53 Consult Physician Urgent Consulting Provider: Tim Gannon Consult Reason/Comments: copd, bipap, pneumonia Do you want consulting provider notified?: Yes Primary care physician: Stated None Hospital Course: Discharge diagnosis: Acute on chronic hypoxic, hypercapnic respiratory failure BiPAP noncompliance Acute COPD exacerbation Acute on chronic diastolic heart failure exacerbation, previously mildly reduced EF History of severe aortic stenosis status post balloon valvoplasty LOUISA Type 2 diabetes, hyperglycemia Anxiety Dyslipidemia Hypertension Hypokalemia Hospital course: Patient is a 63-year-old female with history of advanced COPD on BiPAP, chronic hypoxic respiratory failure, diastolic heart failure, CAD status post stent, severe aortic stenosis s/p balloon aortic valvuloplasty, dyslipidemia, depression, obstructive sleep apnea, former nicotine dependence, hypertension presented to the ED on 11/21/2023 with shortness of breath. Patient admitted to experiencing chills for 2 days and not wearing her BiPAP at home along with not being compliant with her medications. She denies chest pain, cough, abdominal pain, nausea, vomiting, urinary or bowel complaints, current smoking, alcohol use, illicit drug use, travel history, sick contacts. Vitals on presentation were pulse 94, respiratory rate 24, BP 132/71, O2 saturation 100% on BiPAP. Labs were significant for WBC 12.4, hemoglobin 10.7, sodium 136, potassium 3.3, chloride 83, carbon dioxide 48, glucose 262, trace urine protein, 4+ glucose, small urine leukocyte esterase, 7 urine WBCs, 8 hyaline casts and rare urine mucus. EKG showed sinus tachycardia with premature premature ventricular complexes and left anterior fascicular block. Chest x-ray showed interstitial opacities, pleural effusion more prominent on the right lower lobe. At that point she was started on IV antibiotics, bronchodilators, IV steroids and placed on BiPAP and admitted for further workup of shortness of breath. She was started on Solu-Medrol 60 IV every 8 hours, Symbicort 2 puffs twice daily, DuoNebs every 4 hours as needed and she was put on a BiPAP with 12 cmH2O IPAP, 6 cm water EPAP and 60% FiO2. And she was put on IV azithromycin 100 mg for 2 days, IV Zosyn 3.375 g every 8 hours for 5 days for suspected right lower lobe pneumonia, community-acquired versus aspiration. She was on insulin sliding scale for hyperglycemia. She was given 40 mEq of oral potassium for hypokalemia. She was getting aspirin 81 mg, metoprolol 25 mg twice daily for ischemic cardiomyopathy with ejection fraction 25 to 30%, atorvastatin 40 mg for dyslipidemia. She was also on IV Lasix 40 every 12 hours for heart failure treatment. Blood culture showed no growth in 24 hours repeat chest x-ray the next day showed the same findings of opacity in the right lower lung lobe. Compared to prior chest x-rays, no changes during this admission. Antibiotics were discontinued. Today there is an improvement in sodium which is now 140 with a WBC count going down to 8.1. The patient seems to be doing a lot better today. IV Solu-Medrol was discontinued and was changed to prednisone 40 mg p.o. daily for 2 days and then to be continued to prednisone 5 mg p.o. daily. She was also seen by pulmonology inpatient. Patient will be discharged today and is given a handout for COPD and BiPAP and is advised to be compliant with her medications as well as the BiPAP. She is advised to follow-up with pulmonology and palliative care in a week. I personally had an extensive discussion with her primary care physician, patient needs to be on palliative care. However, when she gets visits from home care, she refuses to open the door. She expr esses that her goal is to stay home as much as possible, but the PCP is having difficulty with having her/family understand her prognosis. PCP also try to get her connected to [facility] for structural heart disease, and patient canceled the appointment. Patient is a high risk for readmission given noncompliance. Patient seen at bedside today and is feeling good and excited about discharge. Vital signs are reviewed and stable General: Nontoxic, no distress, appears at stated age, on BiPAP, morbidly obese Derm: Warm, dry Head: Atraumatic, normocephalic, symmetric Eyes: EOMI, no lid lag, anicteric sclera Mouth: No lip lesion, mucus membranes moist Cardiovascular: S1S2 reg, no murmur Lungs: CTA bilateral, no rhonchi, no rales, no accessory muscle use Abdominal: Soft, nontender to palpation, no guarding, no appreciable organomegaly Ext: No gross muscle atrophy, no edema, no contractures Neuro: CN II-XI grossly intact, no focal neuro deficits Psych: Alert, oriented, appropriate affect A total of 33 minutes of time were spent preparing this complex discharge summary. Patient was discharged on 11/23/2023 at 1230. I have seen and evaluated the patient today. Discussed with the resident and agree with the residents finding and plan as documented in the resident's note. Changes highlighted in blue font. Patient Condition at Discharge: Stable Plan - Discharge Summary Discharge Rx Participant: No New Discharge Prescriptions: New predniSONE [Deltasone] 40 mg PO DAILY 2 Days tab Continue Albuterol Inhaler [Ventolin Hfa Inhaler] 2 puff INHALATION RT-Q4H PRN PRN Reason: Shortness Of Breath Aspirin 81 mg PO DAILY 30 Days #30 tab Dapagliflozin Propanediol [Farxiga] 5 mg PO DAILY 30 Days #30 tablet Sertraline [Zoloft] 150 mg PO DAILY Potassium Chloride ER [K-Dur 20] 20 meq PO BID Atorvastatin [Lipitor] 40 mg PO DAILY@1700 Budesonide/Formoterol Fumarate [Symbicort 160-4.5 Mcg Inhaler] 2 puff INHALATION RT-BID Ipratropium-Albuterol Nebulize [Duoneb 0.5 mg-3 mg/3 ml Soln] 3 ml INHALATION RT-QID PRN PRN Reason: Shortness Of Breath busPIRone HCl [Buspar] 5 mg PO BID Furosemide [Lasix] 40 mg PO DAILY tab Metoprolol Succinate (ER) [Toprol XL] 25 mg PO BID predniSONE 5 mg PO DAILY Discharge Medication List Albuterol Inhaler [Ventolin Hfa Inhaler] 2 puff INHALATION RT-Q4H PRN 04/09/22 [History] Atorvastatin [Lipitor] 40 mg PO DAILY@1700 04/09/22 [History] Aspirin 81 mg PO DAILY 30 Days #30 tab 04/12/22 [Rx] Budesonide/Formoterol Fumarate [Symbicort 160-4.5 Mcg Inhaler] 2 puff INHALATION RT-BID 07/13/22 [History] Ipratropium-Albuterol Nebulize [Duoneb 0.5 mg-3 mg/3 ml Soln] 3 ml INHALATION RT-QID PRN 09/23/22 [History] busPIRone HCl [Buspar] 5 mg PO BID 10/12/23 [History] Furosemide [Lasix] 40 mg PO DAILY tab 10/16/23 [Rx] Dapagliflozin Propanediol [Farxiga] 5 mg PO DAILY 30 Days #30 tablet 10/20/23 [Rx] Metoprolol Succinate (ER) [Toprol XL] 25 mg PO BID 11/21/23 [History] Potassium Chloride ER [K-Dur 20] 20 meq PO BID 11/21/23 [History] Sertraline [Zoloft] 150 mg PO DAILY 11/21/23 [History] predniSONE 5 mg PO DAILY 11/21/23 [History] predniSONE [Deltasone] 40 mg PO DAILY 2 Days tab 11/23/23 [Rx] Follow up Appointment(s)/Referral(s): Dk Christina MD [REFERRING] - 1 Week (Please call and set up a follow-up appointment with your Primary care doctor.) Tim Gannon MD [STAFF PHYSICIAN] - 1 Week (Please call and make a follow-up appointment with your lung doctor. ) Patient Instructions/Handouts: COPD (Chronic Obstructive Pulmonary Disease) (DC), BiPAP (GEN) Activity/Diet/Wound Care/Special Instructions: Please see your PCP and your pulmonology. Discharge Disposition: HOME SELF-CARE
--- NOTE | 2023-11-23 15:02 | P.PN ---
Subjective Progress Note Date: 11/23/23 Principal diagnosis: Acute exacerbation of COPD with acute on chronic hypoxic and hypercapnic respiratory failure This is a 64-year-old female, familiar to our service, known to have history of COPD, chronic hypoxic and hypercapnic respiratory failure, patient is on home O2 she also has a BiPAP at home. Patient was brought into the ER today with few days history of increased shortness of breath, cough, wheezing. Chest x-ray on admission is suspicious for right lower lobe pneumonia, possible underlying interstitial edema. Patient was also noted to have significant hypoxia and hypercapnia. Venous ABG showed a pCO2 of 91 pH of 7.35. Her bicarb is 48. BNP level is elevated 11,600, procalcitonin level is pending. Meantime the patient is receiving bronchodilators, antibiotics, diuretics, and steroids. She is on BiPAP at 16/6/60%, O2 saturation was noted to be in the range of 95 to 99%. Patient is hemodynamically stable. But she does seem quite dyspneic. According to the patient she is feeling better now compared to how she felt when she was in the ER earlier today. Patient has mostly cough, wheezing, shortness of breath, denies fever or chills denies any hemoptysis. Denies any chest pain. Evaluated today on 11/22/2023, patient remains intermittently on BiPAP, alternating with nasal cannula doing better today compared to yesterday, remains on bronchodilators steroids and diuretics, chest x-ray is showing improvement in her right lower lobe opacity/interstitial edema. WBC count is 8.1 hemoglobin 9.7 basic metabolic profile is normal bicarb is 14 creatinine is 0.65 patient remains on bronchodilators she is also on diuretics in the form of Lasix 40 mg IV push twice daily she is also on methylprednisolone. Patient was evaluated today on 11/23/2023, feeling much better, breathing a lot easier, remains on bronchodilators, and on diuretics, patient is improving, much better today compared to the day of admission. She is intermittently on BiPAP, and the patient could be considered for discharge home or discharge planning if cleared by other consultants for Objective - Vital Signs Vital signs: Vital Signs Temp 97.4 F L 11/23/23 08:00 Pulse 80 11/23/23 12:02 Resp 18 11/23/23 14:00 BP 103/64 11/23/23 12:00 Pulse Ox 95 11/23/23 12:00 FiO2 60 11/23/23 09:00 Intake & Output 11/22/23 11/23/23 11/23/23 18:59 06:59 18:59 Intake Total 10 Output Total 200 500 Balance -190 -500 Weight 92.5 kg Intake: IV 10 Invasive Line 1 10 Output: Urine 200 500 Other: Voiding Method Bedside Commode Bedside Commode # Voids 1 1 1 - Exam GENERAL EXAM: Alert, pleasant 63-year-old female, on BiPAP HEAD: Normocephalic. Atraumatic EYES: Normal reaction of pupils, equal size. NOSE: Clear with pink turbinates. THROAT: No erythema or exudates. NECK: No masses, no JVD. CHEST: No chest wall deformity. LUNGS: Diminished breath sounds at the bases no crackles rhonchi or wheezes CVS: S1 and S2 normal with no audible murmur, regular rhythm. ABDOMEN: No hepatosplenomegaly, normal bowel sounds, no guarding or rigidity. SKIN: No rashes CENTRAL NERVOUS SYSTEM: No focal deficits, tone is normal in all 4 extremities. EXTREMITIES: Trace of bipedal edema no clubbing, no cyanosis. Peripheral pulses are intact. - Labs CBC & Chem 7: 11/22/23 07:27 11/23/23 08:55 Labs: Abnormal Lab Results - Last 24 Hours (Table) 11/22/23 11/22/23 11/23/23 Range/Units 16:17 19:53 05:53 Chloride (98-107) mmol/L Carbon Dioxide (22-30) mmol/L BUN (7-17) mg/dL Glucose (74-99) mg/dL POC Glucose (mg/dL) 158 H 187 H 207 H (70-110) mg/dL Magnesium (1.6-2.3) mg/dL 11/23/23 11/23/23 Range/Units 08:55 11:28 Chloride 90 L (98-107) mmol/L Carbon Dioxide 45 H* (22-30) mmol/L BUN 35 H (7-17) mg/dL Glucose 113 H (74-99) mg/dL POC Glucose (mg/dL) 151 H (70-110) mg/dL Magnesium 2.4 H (1.6-2.3) mg/dL Microbiology - Last 24 Hours (Table) 11/21/23 09:07 Blood Culture - Preliminary Blood Assessment and Plan Assessment: Impression: Acute on chronic hypoxic and hypercapnic respiratory failure. Advanced COPD, oxygen dependent at 5 L/min nasal cannula Chronic hypercapnic respiratory failure maintained on BiPAP at home Coronary artery disease, involving the LAD, with 40 to 50% stenosis, and a patent proximal RCA stent Ischemic cardiomyopathy with an ejection fraction of 25 to 30% Severe aortic stenosis with history of previous aortic valve valvuloplasty. History of hyperlipidemia History of hypertension History of chronic low back pain Obesity Prior history of heavy tobacco use Recommendation: Continue BiPAP, titrate accordingly Continue antibiotics Continue bronchodilators Continue diuretics Continue oxygen and titrate accordingly Continue steroids, transition to oral prednisone Consider discharge planning if cleared by other consultants Time with Patient: Less than 30
[2023-11-24] MEDS ORDERED: FUROSEMIDE 40 MG TAB PO SCH (09:00)
[2023-11-24] MEDS ORDERED: predniSONE 20 MG TAB PO SCH (09:00)
== END 2023-11-23 14:50 | disposition home or self-care (01) | DRG 291 ==
LOC: EC 07:33 → 3SCARD 08:54
PROVIDERS: ADMIT Family Medicine; ATTEND Family Medicine
DX: I11.0 Hypertensive heart disease with heart failure (principal); I50.43 Acute on chronic combined systolic (congestive) and diastolic (congestive) heart failure; J18.9 Pneumonia, unspecified organism; J96.21 Acute and chronic respiratory failure with hypoxia; J96.22 Acute and chronic respiratory failure with hypercapnia; J44.0 Chronic obstructive pulmonary disease with (acute) lower respiratory infection; J44.1 Chronic obstructive pulmonary disease with (acute) exacerbation; Z20.822 Contact with and (suspected) exposure to COVID-19; E87.6 Hypokalemia; I25.10 Atherosclerotic heart disease of native coronary artery without angina pectoris; I25.5 Ischemic cardiomyopathy; I44.4 Left anterior fascicular block; E11.65 Type 2 diabetes mellitus with hyperglycemia; E66.9 Obesity, unspecified; E78.5 Hyperlipidemia, unspecified; F32.A Depression, unspecified; F41.9 Anxiety disorder, unspecified; I25.2 Old myocardial infarction; G47.33 Obstructive sleep apnea (adult) (pediatric); Z86.79 Personal history of other diseases of the circulatory system; G89.29 Other chronic pain; M54.50 Low back pain, unspecified; Z51.5 Encounter for palliative care; Z66 Do not resuscitate; Z79.4 Long term (current) use of insulin; Z79.51 Long term (current) use of inhaled steroids; Z79.82 Long term (current) use of aspirin; Z79.84 Long term (current) use of oral hypoglycemic drugs; Z79.899 Other long term (current) drug therapy; Z82.49 Family history of ischemic heart disease and other diseases of the circulatory system; Z87.891 Personal history of nicotine dependence; Z91.148 Patient's other noncompliance with medication regimen for other reason; Z91.199 Patient's noncompliance with other medical treatment and regimen due to unspecified reason; Z95.5 Presence of coronary angioplasty implant and graft; Z99.81 Dependence on supplemental oxygen; Z68.36 Body mass index [BMI] 36.0-36.9, adult; Z98.42 Cataract extraction status, left eye; Z98.41 Cataract extraction status, right eye; Z98.51 Tubal ligation status
CPT/HCPCS: 36415; 71045; 80048; 80053; 81001; 82803; 83735; 83880; 84145; 85025; 85610; 85730; 87040; 87449; 87636; 93005; 94640; 94660; 96365; 96367; 96375; 99291

== ENCOUNTER 2023-11-24 11:33 | Inpatient (IN) | payer OTHER ==
[2023-11-24 11:49] LABS: ABG Base Excess 21.6 mmol/L; ABG Oxygen Saturation 98.2 % (94-97); ABG PH 7.38 (7.35-7.45); ABG PO2 94 mmHg (83-108); ABG TCO2 53 mmol/L (19-24); Allen Test Performed? Yes
--- NOTE | 2023-11-24 11:52 | ED ---
General Adult HPI - General Chief complaint: Shortness of Breath Stated complaint: GRAYSON Time Seen by Provider: 11/24/23 11:35 Source: patient, EMS, RN notes reviewed, old records reviewed Mode of arrival: EMS - History of Present Illness Initial comments: This is a 63-year-old female who presents to the emergency department complaining of difficulty breathing. Patient states that started 2 days ago and got progressively worse. Patient denies any fever or chills patient states she does have a cough. Patient has any chest pain or abdominal pain. Patient has any nausea vomiting diarrhea. Patient states her back hurts a little bit from all the heavy breathing. - Related Data Home Medications Medication Instructions Recorded Confirmed Albuterol Inhaler [Ventolin Hfa 2 puff INHALATION RT-Q4H PRN 04/09/22 11/24/23 Inhaler] Atorvastatin [Lipitor] 40 mg PO DAILY@1700 04/09/22 11/24/23 Budesonide/Formoterol Fumarate 2 puff INHALATION RT-BID 07/13/22 11/24/23 [Symbicort 160-4.5 Mcg Inhaler] Ipratropium-Albuterol Nebulize 3 ml INHALATION RT-QID PRN 09/23/22 11/24/23 [Duoneb 0.5 mg-3 mg/3 ml Soln] busPIRone HCl [Buspar] 5 mg PO BID 10/12/23 11/24/23 Metoprolol Succinate (ER) [Toprol 25 mg PO BID 11/21/23 11/24/23 XL] Potassium Chloride ER [K-Dur 20] 20 meq PO BID 11/21/23 11/24/23 Sertraline [Zoloft] 150 mg PO DAILY 11/21/23 11/24/23 predniSONE 5 mg PO DIRECTED 11/21/23 11/24/23 predniSONE [Deltasone] 20 mg PO BID 11/24/23 11/24/23 Previous Rx's Medication Instructions Recorded Aspirin 81 mg PO DAILY 30 Days #30 tab 04/12/22 Furosemide [Lasix] 40 mg PO DAILY tab 10/16/23 Dapagliflozin Propanediol [Farxiga] 5 mg PO DAILY 30 Days #30 tablet 10/20/23 Allergies Allergy/AdvReac Type Severity Reaction Status Date / Time No Known Allergies Allergy Verified 11/24/23 12:01 Review of Systems ROS Statement: Those systems with pertinent positive or pertinent negative responses have been documented in the HPI. ROS Other: All systems not noted in ROS Statement are negative. Past Medical History Past Medical History: Coronary Artery Disease (CAD), Chest Pain / Angina, COPD, Myocardial Infarction ([place]), Respiratory Disorder Additional Past Medical History / Comment(s): Chronic hypercapnic respiratory failure, home oxygen at 5L/NC, bipap at night, tracheobronchitis, severe bicuspid aortic valve stenosis, chronic low back pain, DJD Last Myocardial Infarction Date:: 04/2023 History of Any Multi-Drug Resistant Organisms: None Reported Past Surgical History: Breast Surgery, Heart Catheterization With Stent, Tubal Ligation Additional Past Surgical History / Comment(s): Bilateral breast reductions, bilateral cataract removals. Past Anesthesia/Blood Transfusion Reactions: No Reported Reaction Date of Last Stent Placement:: 04/2023 Past Psychological History: Anxiety, Depression Smoking Status: Former smoker Past Alcohol Use History: None Reported Past Drug Use History: None Reported - Past Family History Father History Unknown: Yes Mother Family Medical History: Congestive Heart Failure (CHF), Diabetes Mellitus General Exam - General Exam Comments Initial Comments: GENERAL: Patient is well-developed and well-nourished. Patient is nontoxic and well- hydrated and is in moderate distress. ENT: Neck is soft and supple. No significant lymphadenopathy is noted. Oropharynx is clear. Moist mucous membranes. Neck has full range of motion without eliciting any pain. EYES: The sclera were anicteric and conjunctiva were pink and moist. Extraocular movements were intact and pupils were equal round and reactive to light. Eyelids were unremarkable. PULMONARY: Patient has very poor airflow CARDIOVASCULAR: There is a regular rate and rhythm without any murmurs gallops or rubs. ABDOMEN: Soft and nontender with normal bowel sounds. SKIN: Skin is clear with no lesions or rashes and otherwise unremarkable. NEUROLOGIC: Patient is alert and oriented x3. Cranial nerves II through XII are grossly intact. Motor and sensory are also intact. Normal speech, volume and content. Symmetrical smile. MUSCULOSKELETAL: Normal extremities with adequate strength and full range of motion. No lower extremity swelling or edema. No calf tenderness. LYMPHATICS: No significant lymphadenopathy is noted PSYCHIATRIC: Normal psychiatric evaluation. Course Vital Signs 11/24/23 11/24/23 11/24/23 11:35 11:52 12:16 Temperature 98.9 F Pulse Rate 106 H 92 Respiratory 26 H 20 Rate Blood Pressure 131/82 112/93 O2 Sat by Pulse 98 97 Oximetry Fraction of 40 Inspired Oxygen (FIO2) 11/24/23 11/24/23 12:47 12:55 Temperature Pulse Rate 76 Respiratory Rate Blood Pressure O2 Sat by Pulse Oximetry Fraction of 30 Inspired Oxygen (FIO2) Medical Decision Making - Medical Decision Making EKG is interpreted by myself. EKG shows sinus rhythm at 98 bpm SC 138 QRS is 112 QT interval 330 QTc is 385. Patient's EKG shows an occasional PAC. There is no ST segment elevation Was pt. sent in by a medical professional or institution (, [facility], [facility], urgent care, hospital, or senior living...) When possible be specific @ -No Did you speak to anyone other than the patient for history (EMS, parent, family, police, friend...)? What history was obtained from this source @ -No Did you review nursing and triage notes (agree or disagree)? Why? @ -I reviewed and agree with nursing and triage notes Were old charts reviewed (outside hosp., previous admission, EMS record, old EKG, old radiological studies, urgent care reports/EKG's, senior living records)? Report findings @ -No old charts were reviewed Differential Diagnosis? @ -Differential Dyspnea: Coronary syndrome, arrhythmia, tamponade, asthma, COPD, pulmonary embolism, pneumonia, pneumothorax, pulmonary effusion, anaphylaxis, diabetic ketoacidosis, flailed chest, pulmonary contusion, diaphragmatic rupture, anemia, neuromuscular, this is not meant to be an all-inclusive list. EKG interpreted by me (3pts min.). @ -As above X-rays interpreted by me (1pt min.). @ -X-ray shows no acute abnormality CT interpreted by me (1pt min.). @ -None done U/S interpreted by me (1pt. min.). @ -None done What testing was considered but not performed or refused? (CT, X-rays, U/S, labs)? Why? @ -None What meds were considered but not given or refused? Why? @ -None Did you discuss the management of the patient with other professionals (professionals i.e. , [facility], [facility], lab, RT, psych nurse, social media campaign manager, geophysical laboratory director, teacher, jailer/training officer, correctional case records supervisor)? Give summary @ -I spoke with Dr. Alcala he agreed to admit the patient admit the patient wro te admitting orders Was smoking cessation discussed for >3mins.? @ -No Was critical care preformed (if so, how long)? @ -No Were there social determinants of health that impacted care today? How? (Cruz elessness, low income, unemployed, alcoholism, drug addiction, transportation, low edu. Level, literacy, decrease access to med. care, assisted, rehab)? @ -No Was there de-escalation of care discussed even if they declined (Discuss DNR or withdrawal of care, Hospice)? DNR status @ -No What co-morbidities impacted this encounter? (DM, HTN, Smoking, COPD, CAD, Cancer, CVA, ARF, Chemo, Hep., AIDS, mental health diagnosis, sleep apnea, morbid obesity)? @ -COPD Was patient admitted / discharged? Hospital course, mention meds given and route, prescriptions, significant lab abnormalities, going to OR and other pertinent info. @ -Patient was placed on BiPAP upon arrival and she was doing considerably b chung with an 15 to 20 minutes. Patient states she has a machine at home but she never uses it. Patient denies any smoking. Patient chest x-ray shows no acute normality. Patient is here and received 2 breathing treatments and some steroids as well as some Rocephin. Patient will be admitted to Dr. Alcala and steroids will be continued on the floor as well treatments Undiagnosed new problem with uncertain prognosis? @ -No Drug Therapy requiring intensive monitoring for toxicity (Heparin, Nitro, Insulin, Cardizem)? @ -No Were any procedures done? @ -No Diagnosis/symptom? @ -COPD exacerbation Acute, or Chronic, or Acute on Chronic? @ -Acute Uncomplicated (without systemic symptoms) or Complicated (systemic symptoms)? @ -Complicated Side effects of treatment? @ -No Exacerbation, Progression, or Severe Exacerbation? @ -No Poses a threat to life or bodily function? How? (Chest pain, [place], [place], pneumonia, PE, COPD, DKA, ARF, appy, cholecystitis, CVA, Diverticulitis, Homicidal, Suicidal, threat to staff... and all critical care pts) @ -Yes this can lead to hypoxia and endorgan dysfunction - Lab Data Result diagrams: 11/24/23 11:47 11/24/23 11:47 Lab Results 11/24/23 11/24/23 11/24/23 Range/Units 11:47 11:47 11:47 WBC 13.7 H (3.8-10.6) k/uL RBC 3.29 L (3.80-5.40) m/uL Hgb 9.7 L (11.4-16.0) gm/dL Hct 32.9 L (34.0-46.0) % MCV 100.0 (80.0-100.0) fL MCH 29.5 (25.0-35.0) pg MCHC 29.5 L (31.0-37.0) g/dL RDW 15.1 (11.5-15.5) % Plt Count 332 (150-450) k/uL MPV 8.2 Neutrophils % 85 % Lymphocytes % 7 % Monocytes % 7 % Eosinophils % 0 % Basophils % 0 % Neutrophils # 11.7 H (1.3-7.7) k/uL Lymphocytes # 0.9 L (1.0-4.8) k/uL Monocytes # 1.0 (0-1.0) k/uL Eosinophils # 0.1 (0-0.7) k/uL Basophils # 0.0 (0-0.2) k/uL Hypochromasia Marked Macrocytosis Slight Sample Site ABG pH (7.35-7.45) ABG pCO2 (35-45) mmHg ABG pO2 (83-108) mmHg ABG HCO3 (21-25) mmol/L ABG Total CO2 (19-24) mmol/L ABG O2 Saturation (94-97) % ABG Base Excess mmol/L Sarabjit Test FiO2 % Sodium 140 (137-145) mmol/L Potassium 3.9 (3.5-5.1) mmol/L Chloride 90 L (98-107) mmol/L Carbon Dioxide 46 H* (22-30) mmol/L Anion Gap 4 mmol/L BUN 38 H (7-17) mg/dL Creatinine 0.78 (0.52-1.04) mg/dL Est GFR (CKD-EPI)AfAm >90 (>60 ml/min/1.73 sqM) Est GFR (CKD-EPI)NonAf 82 (>60 ml/min/1.73 sqM) Glucose 194 H (74-99) mg/dL Plasma Lactic Acid Ruslan 1.3 (0.7-2.0) mmol/L Calcium 9.5 (8.4-10.2) mg/dL Magnesium 2.7 H (1.6-2.3) mg/dL Total Bilirubin 0.4 (0.2-1.3) mg/dL AST 28 (14-36) U/L ALT 18 (4-34) U/L Alkaline Phosphatase 99 (38-126) U/L Troponin I (0.000-0.034) ng/mL Total Protein 6.5 (6.3-8.2) g/dL Albumin 3.9 (3.5-5.0) g/dL 11/24/23 11/24/23 Range/Units 11:47 11:49 WBC (3.8-10.6) k/uL RBC (3.80-5.40) m/uL Hgb (11.4-16.0) gm/dL Hct (34.0-46.0) % MCV (80.0-100.0) fL MCH (25.0-35.0) pg MCHC (31.0-37.0) g/dL RDW (11.5-15.5) % Plt Count (150-450) k/uL MPV Neutrophils % % Lymphocytes % % Monocytes % % Eosinophils % % Basophils % % Neutrophils # (1.3-7.7) k/uL Lymphocytes # (1.0-4.8) k/uL Monocytes # (0-1.0) k/uL Eosinophils # (0-0.7) k/uL Basophils # (0-0.2) k/uL Hypochromasia Macrocytosis Sample Site R Radial ABG pH 7.38 (7.35-7.45) ABG pCO2 85 H* (35-45) mmHg ABG pO2 94 (83-108) mmHg ABG HCO3 50 H* (21-25) mmol/L ABG Total CO2 53 H (19-24) mmol/L ABG O2 Saturation 98.2 H (94-97) % ABG Base Excess 21.6 mmol/L Sarabjit Test Yes FiO2 40 % Sodium (137-145) mmol/L Potassium (3.5-5.1) mmol/L Chloride (98-107) mmol/L Carbon Dioxide (22-30) mmol/L Anion Gap mmol/L BUN (7-17) mg/dL Creatinine (0.52-1.04) mg/dL Est GFR (CKD-EPI)AfAm (>60 ml/min/1.73 sqM) Est GFR (CKD-EPI)NonAf (>60 ml/min/1.73 sqM) Glucose (74-99) mg/dL Plasma Lactic Acid Ruslan (0.7-2.0) mmol/L Calcium (8.4-10.2) mg/dL Magnesium (1.6-2.3) mg/dL Total Bilirubin (0.2-1.3) mg/dL AST (14-36) U/L ALT (4-34) U/L Alkaline Phosphatase (38-126) U/L Troponin I 0.141 H* (0.000-0.034) ng/mL Total Protein (6.3-8.2) g/dL Albumin (3.5-5.0) g/dL Critical Care Time Critical Care Time: Yes Total Critical Care Time: 35 Disposition Clinical Impression: COPD with acute exacerbation Disposition: ADMITTED IP TO THIS HOSP Referrals: None,Stated [REFERRING] - 1-2 days Time of Disposition: 13:35
[2023-11-24 11:56] LABS: ABG PCO2 85 mmHg (35-45)
[2023-11-24 11:57] LABS: ABG HCO3 50 mmol/L (21-25)
[2023-11-24 12:01] LABS: Basophils % (A) 0 %; Eosinophils # (A) 0.1 k/uL (0-0.7); Eosinophils % (A) 0 %; HCT 32.9 % (34.0-46.0); HGB 9.7 gm/dL (11.4-16.0); Hypochromasia Marked; Lymphocytes # (A) 0.9 k/uL (1.0-4.8); Lymphocytes % (A) 7 %; MCH 29.5 pg (25.0-35.0); MCHC 29.5 g/dL (31.0-37.0); Macrocytosis Slight; Mean Platelet Volume 8.2; Monocytes % (A) 7 %; Neutrophils # (A) 11.7 k/uL (1.3-7.7); Neutrophils % (A) 85 %; Platelet Count 332 k/uL (150-450); RBC 3.29 m/uL (3.80-5.40); RDW 15.1 % (11.5-15.5); WBC 13.7 k/uL (3.8-10.6)
[2023-11-24] MEDS: methylPREDNISolone SOD SUCCI 125 MG/2 ML VIAL IV STA (12:10)
[2023-11-24 12:23] LABS: ALT 18 U/L (4-34); African American GFR (CKD) >90 (>60 ml/min/1.73 sqM); Albumin 3.9 g/dL (3.5-5.0); Blood Urea Nitrogen 38 mg/dL (7-17); Magnesium 2.7 mg/dL (1.6-2.3); Sodium 140 mmol/L (137-145); Total Bilirubin 0.4 mg/dL (0.2-1.3)
[2023-11-24] MEDS: ALBUTEROL NEBULIZED 2.5 MG/3 ML INHALATION STA (12:44)
[2023-11-24] MEDS: IPRATROPIUM 0.5 MG/2.5 ML NEBU INHALATION STA (12:44)
[2023-11-24 12:46] LABS: AST 28 U/L (14-36); Alkaline Phosphatase 99 U/L (38-126); Calcium 9.5 mg/dL (8.4-10.2); Chloride 90 mmol/L (98-107); Glucose 194 mg/dL (74-99); Non-African American GFR(CKD) 82 (>60 ml/min/1.73 sqM); Potassium 3.9 mmol/L (3.5-5.1); Total Protein 6.5 g/dL (6.3-8.2)
--- NOTE | 2023-11-24 12:47 | XR ---
EXAMINATION TYPE: XR chest 1V portable DATE OF EXAM: 11/24/2023 Comparison: 11/22/2023 Clinical History: 63 year-old female shortness of breath, difficulty breathing Findings: Heart mildly enlarged. Hyperinflation. Interstitial prominence. Hazy and patchy lower lung densities persist on the right. No sizable pleural effusion. Impression: COPD with mild cardiomegaly and ongoing mid and lower lung opacities on the right, possible sequela o f mild CHF versus underlying infiltrate.
[2023-11-24 12:52] LABS: Anion Gap 4 mmol/L
[2023-11-24 12:55] LABS: Carbon Dioxide 46 mmol/L (22-30)
[2023-11-24] MEDS ORDERED: NALOXONE 0.4 MG/ML 1 ML VIAL IVP PRN (13:41)
[2023-11-24] MEDS ORDERED: IPRATROPIUM-ALBUTEROL 3 ML NEB INHALATION PRN (13:41)
--- NOTE | 2023-11-24 15:32 | P.HPIM ---
History of Present Illness H&P Date: 11/24/23 Patient is a 65 female with past medical history of COPD, chronic hypercapnic respiratory failure, home oxygen at 5 L via nasal cannula, BiPAP at night, coronary artery disease, acute on chronic diastolic heart failure exacerbation, previously mildly reduced EF, obstructive sleep apnea IA, heart catheterization with stent, severe bicuspid aortic valve stenosis status post balloon valvuloplasty, type 2 diabetes, presenting to the ED with worsening shortness of breath since 2 days. She mentions that her back hurts a little bit from the heavy breathing. Denies fever, chills, chest pain, nausea, vomiting, diarrhea, abdominal pain. She was hospitalized here on 11/21/2023 for acute on chronic hy poxic, hypercapnic respiratory failure, BiPAP noncompliance and acute COPD exacerbation and was discharged on 11/23/2023. She went home and was on BiPAP but said the BiPAP settings were higher than in the hospital and that made her uncomfortable. Today the patient was seen and examined in trauma 2, she was on BiPAP 12//40%. Palliative care talked to her and her family(including her and her daughter). They are yet to make a decision with regards to further goals of care including palliative and hospice. Vital signs: T 98.9F, HR 106, RR 26, BP 131/82, 98% on BiPAP Labs: Hemoglobin 9.7, WBC 13.7, hematocrit 32.9, chloride 98, carbon dioxide 46, BUN 38, glucose 194, magnesium 2.7, troponin 1 0.141. ABG: pH 7.38, pCO2 85, pO2 94, bicarb 15, total CO2 53, O2 saturation 98.2 EKG: Independently interpreted sinus rhythm with PVCs CXR: Independently interpreted mid to lower right lung opacity similar to prior Review of systems: Pertinent positives and negatives as discussed in HPI, a complete review of systems was performed and all other systems are negative. Social history: Smoking: Past heavy smoker Alcohol: None reported Drug: None reported Physical examination: Vital signs reviewed General: in acute distress, nontoxic, appears at stated age, morbidly obese Derm: warm, dry, intact Head: atraumatic, normocephalic, symmetric Eyes: EOMI, no lid lag, anicteric sclera Mouth: no lip lesion, mucus membranes moist Cardiovascular: S1 S2 reg, no murmur, rubs, or gallops Lungs: CTA bilateral, no rales, no accessory muscle use, on BiPAP Abdominal: soft, non-tender to palpataion, no appreciable organomegaly Extremities: no gross muscle atrophy, trace b/l LE edema, no contractures Neuro: Alert, Oriented, CNII-XII grossly intact, gait normal Psych: well appearing, appropriate affect Assessment/plan: 63-year-old female with past medical history of COPD, chronic hypoxemic and hypercapnic respiratory failure, chronic diastolic heart failure, coronary ar david disease, myocardial infarction, heart catheterization with stent presented to the ED with worsening shortness of breath since 2 days is diagnosed with hypoxemic and hypercapnic respiratory failure secondary to acute COPD exacerbation. Acute COPD exacerbation Advanced COPD on chronic BiPAP Chronic hypoxemic,hypercapnic respiratory failure -O2 saturation 96% currently on BiPAP -Continue on BiPAP 03/29/40% -Patient is on home oxygen via BiPAP -Ventolin 2.5mg Q4H PRN -Duoneb 3ml QID -Symbicort 2 puff BID -Prednisone 20 mg PO BID - IV Solumedrol 125mg IV once stat, Atrovent 0.5mg inhalation once stat and ceftriaxone 1 g IVPB once given in the ED -Blood cultures ordered per ER Chronic diastolic heart failure, not in exacerbation History of severe aortic stenosis status post balloon valvoplasty History of CAD NSTEMI, type II Furosemide 40 mg p.o. daily Metoprolol succinate 25 mg p.o. twice daily -Continue aspirin 81 mg, atorvastatin 40 mg daily -Continue to monitor on telemetry Hypokalemia: -K 3.9 -Potassium chloride 20meq PO BID Type 2 diabetes -Sliding scale insulin ACH S, monitor for hypoglycemia History of anxiety: Sertraline 150 mg p.o. daily -Buspirone 5mg PO BID Dyslipidemia: Atorvastatin 40 mg p.o. daily CODE STATUS: DNR/DNI DVT prophylaxis: Lovenox subcu Disposition: Likely home in 1 to 2 days I personally had an extensive discussion with her PCP. The idea of palliative care/hospice care was introduced to both the patient and the family. They are still apprehensive about taking further steps with end-of-life care. On the inpatient side, we will try to maximally optimize her for discharge home again, and she will likely need to go to her primary for further palliative/hospice care. I have seen and evaluated the patient today. Discussed with the resident and agree with the residents finding and plan as documented in the resident's note. Changes highlighted in blue font. Past Medical History Past Medical History: Coronary Artery Disease (CAD), Chest Pain / Angina, COPD, Myocardial Infarction ([place]), Respiratory Disorder Additional Past Medical History / Comment(s): Chronic hypercapnic respiratory failure, home oxygen at 5L/NC, bipap at night, tracheobronchitis, severe bicuspid aortic valve stenosis, chronic low back pain, DJD Last Myocardial Infarction Date:: 04/2023 History of Any Multi-Drug Resistant Organisms: None Reported Past Surgical History: Breast Surgery, Heart Catheterization With Stent, Tubal Ligation Additional Past Surgical History / Comment(s): Bilateral breast reductions, bilateral cataract removals. Past Anesthesia/Blood Transfusion Reactions: No Reported Reaction Date of Last Stent Placement:: 04/2023 Past Psychological History: Anxiety, Depression Smoking Status: Former smoker Past Alcohol Use History: None Reported Past Drug Use History: None Reported - Past Family History Father History Unknown: Yes Mother Family Medical History: Congestive Heart Failure (CHF), Diabetes Mellitus Medications and Allergies Home Medications Medication Instructions Recorded Confirmed Type Albuterol Inhaler [Ventolin Hfa 2 puff INHALATION RT-Q4H PRN 04/09/22 11/24/23 History Inhaler] Atorvastatin [Lipitor] 40 mg PO DAILY@1700 04/09/22 11/24/23 History Aspirin 81 mg PO DAILY 30 Days #30 tab 04/12/22 11/24/23 Rx Budesonide/Formoterol Fumarate 2 puff INHALATION RT-BID 07/13/22 11/24/23 History [Symbicort 160-4.5 Mcg Inhaler] Ipratropium-Albuterol Nebulize 3 ml INHALATION RT-QID PRN 09/23/22 11/24/23 History [Duoneb 0.5 mg-3 mg/3 ml Soln] busPIRone HCl [Buspar] 5 mg PO BID 10/12/23 11/24/23 History Furosemide [Lasix] 40 mg PO DAILY tab 10/16/23 11/24/23 Rx Dapagliflozin Propanediol [Farxiga] 5 mg PO DAILY 30 Days #30 tablet 10/20/23 11/24/23 Rx Metoprolol Succinate (ER) [Toprol 25 mg PO BID 11/21/23 11/24/23 History XL] Potassium Chloride ER [K-Dur 20] 20 meq PO BID 11/21/23 11/24/23 History Sertraline [Zoloft] 150 mg PO DAILY 11/21/23 11/24/23 History predniSONE 5 mg PO DIRECTED 11/21/23 11/24/23 History predniSONE [Deltasone] 20 mg PO BID 11/24/23 11/24/23 History Allergies Allergy/AdvReac Type Severity Reaction Status Date / Time No Known Allergies Allergy Verified 11/24/23 12:01 Physical Exam Vitals: Vital Signs Temp Pulse Resp BP Pulse Ox FiO2 11/24/23 14:45 89 24 120/85 96 11/24/23 13:50 40 11/24/23 13:37 101 H 24 122/89 75 L 11/24/23 12:57 78 11/24/23 12:55 30 11/24/23 12:47 76 11/24/23 12:16 92 20 112/93 97 11/24/23 11:52 40 11/24/23 11:35 98.9 F 106 H 26 H 131/82 98 Intake and Output 11/24/23 11/24/23 11/24/23 06:59 14:59 22:59 Other: Weight 90.718 kg Results CBC & Chem 7: 11/24/23 11:47 11/24/23 11:47 Labs: Abnormal Lab Results - Last 24 Hours (Table) 11/24/23 11/24/23 11/24/23 Range/Units 11:47 11:47 11:47 WBC 13.7 H (3.8-10.6) k/uL RBC 3.29 L (3.80-5.40) m/uL Hgb 9.7 L (11.4-16.0) gm/dL Hct 32.9 L (34.0-46.0) % MCHC 29.5 L (31.0-37.0) g/dL Neutrophils # 11.7 H (1.3-7.7) k/uL Lymphocytes # 0.9 L (1.0-4.8) k/uL ABG pCO2 (35-45) mmHg ABG HCO3 (21-25) mmol/L ABG Total CO2 (19-24) mmol/L ABG O2 Saturation (94-97) % Chloride 90 L (98-107) mmol/L Carbon Dioxide 46 H* (22-30) mmol/L BUN 38 H (7-17) mg/dL Glucose 194 H (74-99) mg/dL Magnesium 2.7 H (1.6-2.3) mg/dL Troponin I 0.141 H* (0.000-0.034) ng/mL 11/24/23 Range/Units 11:49 WBC (3.8-10.6) k/uL RBC (3.80-5.40) m/uL Hgb (11.4-16.0) gm/dL Hct (34.0-46.0) % MCHC (31.0-37.0) g/dL Neutrophils # (1.3-7.7) k/uL Lymphocytes # (1.0-4.8) k/uL ABG pCO2 85 H* (35-45) mmHg ABG HCO3 50 H* (21-25) mmol/L ABG Total CO2 53 H (19-24) mmol/L ABG O2 Saturation 98.2 H (94-97) % Chloride (98-107) mmol/L Carbon Dioxide (22-30) mmol/L BUN (7-17) mg/dL Glucose (74-99) mg/dL Magnesium (1.6-2.3) mg/dL Troponin I (0.000-0.034) ng/mL
[2023-11-24] MEDS: IPRATROPIUM-ALBUTEROL 3 ML NEB INHALATION SCH (15:50)
[2023-11-24] MEDS ORDERED: ALBUTEROL NEBULIZED 2.5 MG/3 ML INHALATION PRN (16:00)
[2023-11-24] MEDS ORDERED: methylPREDNISolone SOD SUCCI 125 MG/2 ML VIAL IV SCH (18:00)
[2023-11-24] MEDS: ATORVASTATIN 40 MG TAB PO SCH (18:02)
[2023-11-24] MEDS ORDERED: DEXTROSE 50% SYRINGE 50 ML IVP PRN ×2 (18:05)
[2023-11-24] MEDS: SYMBICORT 160-4.5 MCG INHALER INHALATION SCH (19:16)
[2023-11-24 19:44] LABS: Glucose,Whole Blood 173 mg/dL (70-110)
[2023-11-24] MEDS ORDERED: AMOXIC-POT CLAV 875-125MG 1 EACH TAB PO SCH (21:00)
[2023-11-24] MEDS: POTASSIUM CHLORIDE ER 20 MEQ TAB.ER PO SCH (21:00)
[2023-11-24] MEDS: predniSONE 20 MG TAB PO SCH (21:00)
[2023-11-24] MEDS: busPIRone HCl 5 MG TAB PO SCH (21:01)
[2023-11-24] MEDS: INSULIN ASPART (NovoLOG) 100 UNIT/ML VIAL SQ SCH (21:01)
[2023-11-24] MEDS: METOPROLOL SUCCINATE (ER) 25 MG TAB.ER.24H PO SCH (21:01)
[2023-11-25 06:42] LABS: Glucose,Whole Blood 140 mg/dL (70-110)
--- NOTE | 2023-11-25 07:03 | P.PN ---
Subjective Progress Note Date: 11/25/23 Principal diagnosis: Hospital course: Patient is a 65 female with past medical history of COPD, chronic hypercapnic respiratory failure, home oxygen at 5 L via nasal cannula, BiPAP at night, coronary artery disease, acute on chronic diastolic heart failure exacerbation, previously mildly reduced EF, obstructive sleep apnea CT, heart catheterization with stent, severe bicuspid aortic valve stenosis status post balloon valvuloplasty, type 2 diabetes, presenting to the ED with worsening shortness of breath since 2 days. She mentions that her back hurts a little bit from the h eavy breathing. Denies fever, chills, chest pain, nausea, vomiting, diarrhea, abdominal pain. She was hospitalized here on 11/21/2023 for acute on chronic hypoxic, hypercapnic respiratory failure, BiPAP noncompliance and acute COPD exacerbation and was discharged on 11/23/2023. She went home and was on BiPAP but said the BiPAP settings were higher than in the hospital and that made her uncomfortable. Today the patient was seen and examined in trauma 2, she was on BiPAP 03/29/40%. Palliative care talked to her and her family(including her and her daughter). They are yet to make a decision with regards to further goals of care including palliative and hospice. Vitals on admission T 98.9F, HR 106, RR 26, BP 131/82, 98% on BiPAP. Labs on admission significant for Hemoglobin 9.7, WBC 13.7, hematocrit 32.9, chloride 98, carbon dioxide 46, BUN 38, glucose 194, magnesium 2.7, troponin 1 0.141. EKG independently interpreted sinus rhythm with PVCs. CXR independently interpreted mid to lower right lung opacity similar to prior. Subjective: Today the patient was seen and examined in ER 7. Patient continues to experience shortness of breath and respiratory distress, tripod positioning. Denies chest pain, palpitations. Labs show glucose 126. Physical examination: Vital signs reviewed General: in acute distress, tripod position,, nontoxic, appears at stated age, morbidly obese Derm: warm, dry, intact Head: atraumatic, normocephalic, symmetric Eyes: EOMI, no lid lag, anicteric sclera Mouth: no lip lesion, mucus membranes moist Cardiovascular: S1 S2 reg, no murmur, rubs, or gallops Lungs: CTA bilateral, no rales, no accessory muscle use, on BiPAP Abdominal: soft, non-tender to palpation, no appreciable organomegaly Extremities: no gross muscle atrophy, trace b/l LE edema, no contractures Neuro: Alert, Oriented, CNII-XII grossly intact, gait normal Psych: well appearing, appropriate affect Data reviewed today -WBC 11.9, hemoglobin 9.5, potassium 3.7, bicarb 46, creatinine 0.67, magnesium 2.4, blood sugars range between 1 24-1 40 Assessment/Plan: 63-year-old female with past medical history of COPD, chronic hypoxemic and hypercapnic respiratory failure, chronic diastolic heart failure, coronary artery disease, myocardial infarction, heart catheterization with stent presented to the ED with worsening shortness of breath since 3 days is diagnosed with hypoxemic and hypercapnic respiratory failure secondary to acute COPD exacerbation. Acute COPD exacerbation Advanced COPD on chronic BiPAP Chronic hypoxemic,hypercapnic respiratory failure -O2 saturation 96% currently on BiPAP -Continue on BiPAP 12/40% -Patient is on home oxygen via BiPAP -Continue Ventolin 2.5mg Q4H PRN -Continue Duoneb 3ml QID -Continue Symbicort 2 puff BID -Continue Prednisone 20 mg PO BID -IV Solumedrol 125mg IV once stat, Atrovent 0.5mg inhalation once stat and ceftriaxone 1 g IVPB once given in the ED -Blood cultures ordered per ER, pending Chronic diastolic heart failure, not in exacerbation History of severe aortic stenosis status post balloon valvoplasty History of CAD NSTEMI, type II Continue Furosemide 40 mg p.o. daily Continue Metoprolol succinate 25 mg p.o. twice daily -Continue aspirin 81 mg, atorvastatin 40 mg daily -Continue to monitor on telemetry Hypokalemia: -K 3.9 yesterday -Potassium chloride 20meq PO BID given yesterday Type 2 diabetes -Glucose 126 -Sliding scale insulin ACH S, -Monitor for hypoglycemia History of anxiety: Sertraline 150 mg p.o. daily -Buspirone 5mg PO BID Debility -Physical therapy consulted CODE STATUS: DNR/DNI DVT prophylaxis: Lovenox subcu Disposition: Likely home in 1 to 2 days I have seen and evaluated the patient today. Discussed with the resident and agree with the residents finding and plan as documented in the resident's note. Changes highlighted in blue font. Objective - Vital Signs Vital signs: Vital Signs Temp 98.1 F 11/24/23 18:00 Pulse 89 11/25/23 06:02 Resp 24 11/25/23 06:02 BP 142/95 11/25/23 06:02 Pulse Ox 95 11/25/23 06:02 FiO2 40 11/25/23 03:11 Intake & Output 11/24/23 11/24/23 11/25/23 06:59 18:59 06:59 Weight 90.718 kg - Labs CBC & Chem 7: 11/25/23 12:02 11/25/23 12:02 Labs: Abnormal Lab Results - Last 24 Hours (Table) 11/24/23 11/24/23 11/24/23 Range/Units 11:47 11:47 11:47 WBC 13.7 H (3.8-10.6) k/uL RBC 3.29 L (3.80-5.40) m/uL Hgb 9.7 L (11.4-16.0) gm/dL Hct 32.9 L (34.0-46.0) % MCHC 29.5 L (31.0-37.0) g/dL Neutrophils # 11.7 H (1.3-7.7) k/uL Lymphocytes # 0.9 L (1.0-4.8) k/uL ABG pCO2 (35-45) mmHg ABG HCO3 (21-25) mmol/L ABG Total CO2 (19-24) mmol/L ABG O2 Saturation (94-97) % Chloride 90 L (98-107) mmol/L Carbon Dioxide 46 H* (22-30) mmol/L BUN 38 H (7-17) mg/dL Glucose 194 H (74-99) mg/dL POC Glucose (mg/dL) (70-110) mg/dL Magnesium 2.7 H (1.6-2.3) mg/dL Troponin I 0.141 H* (0.000-0.034) ng/mL 11/24/23 11/24/23 Range/Units 11:49 19:43 WBC (3.8-10.6) k/uL RBC (3.80-5.40) m/uL Hgb (11.4-16.0) gm/dL Hct (34.0-46.0) % MCHC (31.0-37.0) g/dL Neutrophils # (1.3-7.7) k/uL Lymphocytes # (1.0-4.8) k/uL ABG pCO2 85 H* (35-45) mmHg ABG HCO3 50 H* (21-25) mmol/L ABG Total CO2 53 H (19-24) mmol/L ABG O2 Saturation 98.2 H (94-97) % Chloride (98-107) mmol/L Carbon Dioxide (22-30) mmol/L BUN (7-17) mg/dL Glucose (74-99) mg/dL POC Glucose (mg/dL) 173 H (70-110) mg/dL Magnesium (1.6-2.3) mg/dL Troponin I (0.000-0.034) ng/mL
[2023-11-25] MEDS: FUROSEMIDE 40 MG TAB PO SCH (08:15)
[2023-11-25] MEDS: ASPIRIN 81 MG PO SCH (08:15)
[2023-11-25] MEDS: ENOXAPARIN 40 MG/0.4 ML SYRINGE SQ SCH (08:16)
[2023-11-25] MEDS: SERTRALINE 100 MG TAB PO SCH (08:16)
[2023-11-25 12:16] LABS: Glucose,Whole Blood 126 mg/dL (70-110)
[2023-11-25 12:38] LABS: HCT 30.9 % (34.0-46.0); HGB 9.5 gm/dL (11.4-16.0); Hypochromasia Marked; MCH 30.8 pg (25.0-35.0); MCHC 30.8 g/dL (31.0-37.0); MCV 99.9 fL (80.0-100.0); Macrocytosis Slight; Mean Platelet Volume 7.6; Platelet Count 288 k/uL (150-450); RBC 3.09 m/uL (3.80-5.40); RDW 15.1 % (11.5-15.5); WBC 11.9 k/uL (3.8-10.6)
[2023-11-25 12:43] LABS: ALT 17 U/L (4-34); AST 26 U/L (14-36); African American GFR (CKD) >90 (>60 ml/min/1.73 sqM); Albumin 3.7 g/dL (3.5-5.0); Alkaline Phosphatase 99 U/L (38-126); Blood Urea Nitrogen 37 mg/dL (7-17); Calcium 9.1 mg/dL (8.4-10.2); Chloride 90 mmol/L (98-107); Glucose 124 mg/dL (74-99); Magnesium 2.4 mg/dL (1.6-2.3); Non-African American GFR(CKD) >90 (>60 ml/min/1.73 sqM); Potassium 3.6 mmol/L (3.5-5.1); Sodium 141 mmol/L (137-145); Total Bilirubin 0.6 mg/dL (0.2-1.3)
[2023-11-25 12:50] LABS: Anion Gap 5 mmol/L
[2023-11-25 13:19] LABS: Carbon Dioxide 46 mmol/L (22-30)
[2023-11-25 16:39] LABS: Glucose,Whole Blood 128 mg/dL (70-110)
[2023-11-25 20:13] LABS: Glucose,Whole Blood 115 mg/dL (70-110)
[2023-11-26 06:05] LABS: Glucose,Whole Blood 119 mg/dL (70-110)
[2023-11-26 11:28] LABS: Glucose,Whole Blood 130 mg/dL (70-110)
[2023-11-26] MEDS: FUROSEMIDE 10 MG/ML 4 ML VIAL IV SCH (11:54)
[2023-11-26] MEDS: methylPREDNISolone SOD SUCCI 125 MG/2 ML VIAL IV SCH (11:54)
--- NOTE | 2023-11-26 12:20 | XR ---
EXAMINATION TYPE: XR chest 1V DATE OF EXAM: 11/26/2023 11:08 AM CLINICAL INDICATION:Female, 63 years old with history of hypoxia, bipap dependent; [facility] COMPARISON: 11/24/2023 and before TECHNIQUE: XR chest 1V Portable AP radiograph of the chest.. FINDINGS: EKG leads overlie the chest. No indwelling lines are seen. Stable cardiac mediastinal silhouette. Heart is moderately enlarged. Mild pulmonary vascular congestion appears similar. Mild hyperinflation and interstitial prominence can be seen with COPD. Hazy opacities again noted ove r the mid to lower lungs. Small pleural effusions are not excluded. No visualized pneumothorax. Bones and soft tissues appear grossly stable. IMPRESSION: Stable cardiopulmonary status.
--- NOTE | 2023-11-26 12:46 | P.CNPUL ---
History of Present Illness Consult date: 11/26/23 Requesting physician: Leah George Reason for consult: dyspnea, COPD, hypoxemia Chief complaint: Shortness of breath History of present illness: This is a very pleasant 63-year-old female, known to have history of hypertension, hyperlipidemia, chronic low back pain, obesity, previous smoker, coronary artery disease with previous stent placement, ischemic cardiomyopathy with ejection fraction of 25 to 30%, severe aortic stenosis with previous valvuloplasty, COPD, chronic hypoxic and hypercapnic respiratory failure, patient is on home O2 she also has a BiPAP at home. This is her eighth admission this year. The patient declines to wear her home BiPAP and keeps being readmitted for shortness of breath. She states her home BiPAP has too much pressure though set at 12/6 according to the and she tolerates the hospital BiPAP better. This also is set at 12/6 and 40% FiO2. Chest x-ray shows similar findings compared to previous. Small pleural effusions not excluded. White count 11.9. Hemoglobin 9.5. Platelets 288. Sodium 141. Potassium 3.6. Bicarb 46. BUN 37. Creatinine 0.67. Glucose 130. He is seen today in consultation on the selective care unit. Currently sitting up in bed. Awake and alert in no acute distress. On BiPAP again 12/6 and 40% FiO2. She h as been initiated on DuoNeb inhalations, Symbicort, Solu-Medrol. On IV diuretics. Lovenox for DVT prophylaxis. Review of Systems REVIEW OF SYSTEMS: CONSTITUTIONAL: Denies any recent significant weight loss or weight gain. EYES: Denies change in vision. EARS, NOSE, MOUTH, THROAT: Denies headaches, denies sore throat. CARDIOVASCULAR: Denies chest pain, palpitations or syncopal episodes. RESPIRATORY: Positive for shortness of breath, no cough, congestion or hemoptysis. GASTROINTESTINAL: Denies change in appetite, denies abdominal pain GENITOURINARY: Denies hematuria, denies infections. MUSKULOSKELETAL: Denies pain, denies swelling. INTEGUMENTARY: Denies rash, denies eczema. NEUROLOGICAL: Denies recent memory loss, no recent seizure activity. PSYCHIATRIC: Denies anxiety, denies depression. HEMATOLOGIC/LYMPHATIC: Denies anemia, denies enlarged lymph nodes. Past Medical History Past Medical History: Coronary Artery Disease (CAD), Chest Pain / Angina, COPD, Myocardial Infarction (MD), Respiratory Disorder Additional Past Medical History / Comment(s): Chronic hypercapnic respiratory failure, home oxygen at 5L/NC, bipap at night, tracheobronchitis, severe bicuspid aortic valve stenosis, chronic low back pain, DJD Last Myocardial Infarction Date:: 04/2023 History of Any Multi-Drug Resistant Organisms: None Reported Past Surgical History: Breast Surgery, Heart Catheterization With Stent, Tubal Ligation Additional Past Surgical History / Comment(s): Bilateral breast reductions, bilateral cataract removals. Past Anesthesia/Blood Transfusion Reactions: No Reported Reaction Date of Last Stent Placement:: 04/2023 Past Psychological History: Anxiety, Depression Additional Psychological History / Comment(s): Pt resides with her spouse. She has home oxygen and a nebulizer. She chooses not to drive, her spouse drives. She had [facility] after last hospitalization but no longer coming to home. Smoking Status: Former smoker Past Alcohol Use History: None Reported Additional Past Alcohol Use History / Comment(s): Pt started smoking as a teen and quit within the last 5 years ago. She was a 2 ppd smoker. Past Drug Use History: None Reported - Past Family History Father History Unknown: Yes Mother Family Medical History: Congestive Heart Failure (CHF), Diabetes Mellitus Medications and Allergies Home Medications Medication Instructions Recorded Confirmed Type Albuterol Inhaler [Ventolin Hfa 2 puff INHALATION RT-Q4H PRN 04/09/22 11/24/23 History Inhaler] Atorvastatin [Lipitor] 40 mg PO DAILY@1700 04/09/22 11/24/23 History Aspirin 81 mg PO DAILY 30 Days #30 tab 04/12/22 11/24/23 Rx Budesonide/Formoterol Fumarate 2 puff INHALATION RT-BID 07/13/22 11/24/23 History [Symbicort 160-4.5 Mcg Inhaler] Ipratropium-Albuterol Nebulize 3 ml INHALATION RT-QID PRN 09/23/22 11/24/23 History [Duoneb 0.5 mg-3 mg/3 ml Soln] busPIRone HCl [Buspar] 5 mg PO BID 10/12/23 11/24/23 History Furosemide [Lasix] 40 mg PO DAILY tab 10/16/23 11/24/23 Rx Dapagliflozin Propanediol [Farxiga] 5 mg PO DAILY 30 Days #30 tablet 10/20/23 11/24/23 Rx Metoprolol Succinate (ER) [Toprol 25 mg PO BID 11/21/23 11/24/23 History XL] Potassium Chloride ER [K-Dur 20] 20 meq PO BID 11/21/23 11/24/23 History Sertraline [Zoloft] 150 mg PO DAILY 11/21/23 11/24/23 History predniSONE 5 mg PO DIRECTED 11/21/23 11/24/23 History predniSONE [Deltasone] 20 mg PO BID 11/24/23 11/24/23 History Allergies Allergy/AdvReac Type Severity Reaction Status Date / Time No Known Allergies Allergy Verified 11/24/23 12:01 Physical Exam Vitals: Vital Signs Temp Pulse Pulse Resp BP BP Pulse Ox 11/26/23 11:54 90 11/26/23 11:47 11/26/23 11:45 86 11/26/23 08:42 92 11/26/23 08:32 11/26/23 08:30 84 11/26/23 08:00 98.0 F 82 24 136/85 98 11/26/23 03:53 97.5 F L 95 24 133/74 97 11/26/23 03:37 11/25/23 23:45 98.1 F 84 22 115/72 96 11/25/23 23:26 11/25/23 21:06 94 20 11/25/23 20:56 89 20 11/25/23 20:00 97.6 F 95 16 127/76 99 11/25/23 15:48 92 11/25/23 15:34 92 11/25/23 15:30 91 24 134/86 95 11/25/23 14:47 82 20 129/80 FiO2 11/26/23 11:54 11/26/23 11:47 40 11/26/23 11:45 11/26/23 08:42 11/26/23 08:32 40 11/26/23 08:30 11/26/23 08:00 11/26/23 03:53 40 11/26/23 03:37 40 11/25/23 23:45 40 11/25/23 23:26 40 11/25/23 21:06 11/25/23 20:56 40 11/25/23 20:00 40 11/25/23 15:48 11/25/23 15:34 11/25/23 15:30 40 11/25/23 14:47 Intake and Output 11/25/23 11/26/23 11/26/23 22:59 06:59 14:59 Intake Total 10 Balance 10 Intake: IV 10 Invasive Line 2 10 Other: Voiding Method Toilet Toilet Toilet # Voids 1 0 0 Weight 90.718 kg 88.7 kg GENERAL EXAM: Alert, very pleasant 63-year-old female, on BiPAP 12/6 and 40% FiO2, comfortable in no apparent distress. HEAD: Normocephalic. EYES: Normal reaction of pupils, equal size. NOSE: Clear with pink turbinates. THROAT: No erythema or exudates. NECK: No masses, no JVD. CHEST: No chest wall deformity. LUNGS: Equal air entry with end expiratory wheeze, faint crackles in the bases, diminished. CVS: S1 and S2 normal with an audible murmur, regular rhythm. ABDOMEN: No hepatosplenomegaly, normal bowel sounds, no guarding or rigidity. SPINE: No scoliosis or deformity SKIN: No rashes CENTRAL NERVOUS SYSTEM: No focal deficits, tone is normal in all 4 extremities. EXTREMITIES: There is a's peripheral edema. No clubbing, no cyanosis. Peripheral pulses are intact. Results - Laboratory Findings CBC and BMP: 11/25/23 12:02 11/25/23 12:02 ABG ABG pH 7.38 (7.35-7.45) 11/24/23 11:49 ABG pCO2 85 mmHg (35-45) H* 11/24/23 11:49 ABG pO2 94 mmHg (83-108) 11/24/23 11:49 ABG O2 Saturation 98.2 % (94-97) H 11/24/23 11:49 Abnormal lab findings: Abnormal Labs 11/24/23 11/24/23 11/24/23 11:47 11:47 11:47 WBC 13.7 H RBC 3.29 L Hgb 9.7 L Hct 32.9 L MCHC 29.5 L Neutrophils # 11.7 H Lymphocytes # 0.9 L ABG pCO2 ABG HCO3 ABG Total CO2 ABG O2 Saturation Chloride 90 L Carbon Dioxide 46 H* BUN 38 H Glucose 194 H POC Glucose (mg/dL) Hemoglobin A1c Magnesium 2.7 H Troponin I 0.141 H* Total Protein 11/24/23 11/24/23 11/25/23 11:49 19:43 06:41 WBC RBC Hgb Hct MCHC Neutrophils # Lymphocytes # ABG pCO2 85 H* ABG HCO3 50 H* ABG Total CO2 53 H ABG O2 Saturation 98.2 H Chloride Carbon Dioxide BUN Glucose POC Glucose (mg/dL) 173 H 140 H Hemoglobin A1c Magnesium Troponin I Total Protein 11/25/23 11/25/23 11/25/23 12:02 12:02 12:02 WBC 11.9 H RBC 3.09 L Hgb 9.5 L Hct 30.9 L MCHC 30.8 L Neutrophils # Lymphocytes # ABG pCO2 ABG HCO3 ABG Total CO2 ABG O2 Saturation Chloride 90 L Carbon Dioxide 46 H* BUN 37 H Glucose 124 H POC Glucose (mg/dL) Hemoglobin A1c 7.1 H Magnesium 2.4 H Troponin I Total Protein 6.0 L 11/25/23 11/25/23 11/25/23 12:14 16:38 20:11 WBC RBC Hgb Hct MCHC Neutrophils # Lymphocytes # ABG pCO2 ABG HCO3 ABG Total CO2 ABG O2 Saturation Chloride Carbon Dioxide BUN Glucose POC Glucose (mg/dL) 126 H 128 H 115 H Hemoglobin A1c Magnesium Troponin I Total Protein 11/26/23 11/26/23 06:03 11:26 WBC RBC Hgb Hct MCHC Neutrophils # Lymphocytes # ABG pCO2 ABG HCO3 ABG Total CO2 ABG O2 Saturation Chloride Carbon Dioxide BUN Glucose POC Glucose (mg/dL) 119 H 130 H Hemoglobin A1c Magnesium Troponin I Total Protein - Diagnostic Findings Chest x-ray: image reviewed Assessment and Plan Assessment: Acute on chronic hypoxic and hypercapnic respiratory failure secondary to noncompliance with home BiPAP. Eighth admission this year, just discharged on November 21, 2023 Advanced COPD, oxygen dependent at 5 L/min nasal cannula when off BiPAP Chronic hypercapnic respiratory failure and supposed to be on BiPAP at home, 12/ 6 and 40% FiO2 Coronary artery disease, involving the LAD, with 40 to 50% stenosis, and a patent proximal RCA stent Ischemic cardiomyopathy with an ejection fraction of 25 to 30% Severe aortic stenosis with history of previous aortic valve valvuloplasty. History of hyperlipidemia History of hypertension History of chronic low back pain Obesity Prior history of heavy tobacco use Plan: The patient was seen and evaluated Chest x-ray, labs and medications reviewed Currently stable on BiPAP /6 and 40% FiO2 Could transition to nasal cannula as tolerated Continue DuoNeb inhalations, Symbicort, Solu-Medrol Continue IV diuretics Again educated regarding compliance with her home BiPAP We will continue to follow and make further recommendations based on her clinical status I have personally seen and examined the patient, performed the documentation and the assessment and plan as written. Number of minutes spent on the visit: 20.
[2023-11-26 16:22] LABS: Glucose,Whole Blood 153 mg/dL (70-110)
--- NOTE | 2023-11-26 16:45 | P.PN ---
Subjective Progress Note Date: 11/26/23 Hospital course: Patient is a 65 female with past medical history of COPD, chronic hypercapnic respiratory failure, home oxygen at 5 L via nasal cannula, BiPAP at night, coronary artery disease, acute on chronic diastolic heart failure exacerbation, previously mildly reduced EF, obstructive sleep apnea ME, heart catheterization with stent, severe bicuspid aortic valve stenosis status post balloon valvul oplasty, type 2 diabetes, presenting to the ED with worsening shortness of breath since 2 days. She mentions that her back hurts a little bit from the heavy breathing. Denies fever, chills, chest pain, nausea, vomiting, diarrhea, abdominal pain. She was hospitalized here on 11/21/2023 for acute on chronic hypoxic, hypercapnic respiratory failure, BiPAP noncompliance and acute COPD exacerbation and was discharged on 11/23/2023. She went home and was on BiPAP but said the BiPAP settings were higher than in the hospital and that made her uncomfortable. Today the patient was seen and examined in trauma 2, she was on BiPAP 12/6/40%. Palliative care talked to her and her family(including her hus band and her daughter). They are yet to make a decision with regards to further goals of care including palliative and hospice. Vitals on admission T 98.9F, HR 106, RR 26, BP 131/82, 98% on BiPAP. Labs on admission significant for Hemoglobin 9.7, WBC 13.7, hematocrit 32.9, chloride 98, carbon dioxide 46, BUN 38, glucose 194, magnesium 2.7, troponin 1 0.141. EKG independently interpreted sinus rhythm with PVCs. CXR independently interpreted mid to lower right lung opacity similar to prior. Subjective: Patient continues to experience shortness of breath and respiratory distress, tripod positioning. Denies chest pain, palpitations. I discussed the patient case with patient as well as her family, I recommend that we initiate diuretics as well as IV steroids, consult pulmonology. We will try to optimize her breathing status prior to having another goals of care conversation with her. Gen: In moderate distress from dyspnea, nontoxic HEENT: normocephalic, atraumatic, hearing acuity is intant, mucous membranes moist CVS: perfusing all extremities well, bilateral pitting edema, Respiratory: symmetric chest expansion, tripod positioning, diminished breath sounds, faint crackles in the bases GI: soft, NTTP, ND, : no suprapubic tenderness, no CVA tenderness MSK/Derm: no rashes, cyanosis Neuro: CN II-XII intact, no motor weakness, Assessment/Plan: 63-year-old female with past medical history of COPD, chronic hypoxemic and hypercapnic respiratory failure, chronic diastolic heart failure, coronary artery disease, myocardial infarction, heart catheterization with stent presented to the ED with worsening shortness of breath since 3 days is diagnosed with hypoxemic and hypercapnic respiratory failure secondary to acute COPD exacerbation. Acute COPD exacerbation Advanced COPD on chronic BiPAP Acute on chronic hypoxemic,hypercapnic respiratory failure -O2 saturation 96% currently on BiPAP -Continue on BiPAP 03/29/40% -Patient is on home oxygen via BiPAP -Continue Ventolin 2.5mg Q4H PRN -Continue Duoneb 3ml QID -Continue Symbicort 2 puff BID -Prednisone changed to Solu-Medrol 60 mg IV every 6 hours -Blood cultures ordered per ER, no growth to date Acute on chronic diastolic heart failure History of severe aortic stenosis status post balloon valvoplasty History of CAD NSTEMI, type II Change Lasix to IV 40 mg twice daily Continue Metoprolol succinate 25 mg p.o. twice daily -Continue aspirin 81 mg, atorvastatin 40 mg daily -Continue to monitor on telemetry Hypokalemia: -K 3.9 yesterday -Potassium chloride 20meq PO BID given yesterday Type 2 diabetes -Glucose 126 -Sliding scale insulin ACH S, -Monitor for hypoglycemia History of anxiety: Sertraline 150 mg p.o. daily -Buspirone 5mg PO BID Debility -Physical therapy consulted CODE STATUS: DNR/DNI DVT prophylaxis: Lovenox subcu Disposition: Likely home in 1 to 2 days Objective - Vital Signs Vital signs: Vital Signs Temp 98.0 F 11/26/23 08:00 Pulse 98 11/26/23 15:52 Resp 24 11/26/23 14:00 BP 120/71 11/26/23 12:00 Pulse Ox 98 11/26/23 12:00 FiO2 40 11/26/23 15:45 Intake & Output 11/25/23 11/26/23 11/26/23 18:59 06:59 18:59 Intake Total 10 Balance 10 Weight 90.718 kg 88.7 kg Intake: IV 10 Invasive Line 2 10 Other: Voiding Method Toilet Toilet # Voids 1 0 0 - Labs CBC & Chem 7: 11/25/23 12:02 11/25/23 12:02 Labs: Abnormal Lab Results - Last 24 Hours (Table) 11/25/23 11/25/23 11/26/23 Range/Units 12:02 20:11 06:03 POC Glucose (mg/dL) 115 H 119 H (70-110) mg/dL Hemoglobin A1c 7.1 H (<=6.0) % 11/26/23 11/26/23 Range/Units 11:26 16:21 POC Glucose (mg/dL) 130 H 153 H (70-110) mg/dL Hemoglobin A1c (<=6.0) % Microbiology - Last 24 Hours (Table) 11/24/23 11:53 Blood Culture - Preliminary Blood 11/24/23 11:53 Blood Culture - Preliminary Blood
[2023-11-26 20:02] LABS: Glucose,Whole Blood 156 mg/dL (70-110)
[2023-11-26 20:12] VITALS: RESP 19
[2023-11-26] MEDS: HYDROcodone/APAP 5-325MG 1 EACH TAB PO STA (21:48)
[2023-11-27 03:11] VITALS: BP 132/63; PULSE 81
[2023-11-27 03:17] VITALS: TEMP 98
[2023-11-27] MEDS: MORPHINE SULFATE 4 MG/ML SYRINGE IVP STA (04:17)
[2023-11-27 06:08] LABS: Glucose,Whole Blood 162 mg/dL (70-110)
[2023-11-27] MEDS ORDERED: ASPIRIN 81 MG ONE (09:45)
[2023-11-27] MEDS ORDERED: POTASSIUM CHLORIDE ER 20 MEQ TAB.ER PO ONE ×2 (09:45→20:38)
[2023-11-27] MEDS ORDERED: busPIRone HCl 5 MG TAB ONE ×2 (09:46→20:39)
[2023-11-27] MEDS ORDERED: SERTRALINE 100 MG TAB ONE (09:46)
[2023-11-27] MEDS ORDERED: METOPROLOL SUCCINATE (ER) 25 MG TAB.ER.24H PO ONE ×2 (09:46→20:38)
[2023-11-27] MEDS ORDERED: FUROSEMIDE 10 MG/ML 4 ML VIAL ONE ×2 (09:46→20:38)
[2023-11-27] MEDS ORDERED: ENOXAPARIN 40 MG/0.4 ML SYRINGE SQ ONE (09:46)
[2023-11-27 12:00] LABS: Glucose,Whole Blood 169 mg/dL (70-110)
[2023-11-27] MEDS ORDERED: methylPREDNISolone SOD SUCCI 125 MG/2 ML VIAL ONE ×3 (12:19→23:44)
[2023-11-27] MEDS ORDERED: INSULIN ASPART (NovoLOG) 100 UNIT/ML VIAL SQ ONE ×2 (12:20→20:46)
[2023-11-27] MEDS ORDERED: IPRATROPIUM-ALBUTEROL 3 ML NEB ONE ×2 (15:00→19:47)
[2023-11-27 17:05] LABS: Glucose,Whole Blood 177 mg/dL (70-110)
[2023-11-27] MEDS ORDERED: ATORVASTATIN 40 MG TAB ONE (18:57)
[2023-11-27 20:12] LABS: Glucose,Whole Blood 192 mg/dL (70-110)
[2023-11-28] MEDS ORDERED: IPRATROPIUM-ALBUTEROL 3 ML NEB ONE ×5 (03:08→20:01)
[2023-11-28] MEDS ORDERED: methylPREDNISolone SOD SUCCI 125 MG/2 ML VIAL ONE ×3 (06:03→17:01)
[2023-11-28 06:11] LABS: Glucose,Whole Blood 144 mg/dL (70-110)
[2023-11-28] MEDS ORDERED: POTASSIUM CHLORIDE ER 20 MEQ TAB.ER PO ONE ×2 (07:53→20:35)
[2023-11-28] MEDS ORDERED: ASPIRIN 81 MG ONE (07:53)
[2023-11-28] MEDS ORDERED: FUROSEMIDE 10 MG/ML 4 ML VIAL ONE ×2 (07:54→20:35)
[2023-11-28] MEDS ORDERED: ENOXAPARIN 40 MG/0.4 ML SYRINGE SQ ONE (07:54)
[2023-11-28] MEDS ORDERED: busPIRone HCl 5 MG TAB ONE ×2 (07:54→20:36)
[2023-11-28] MEDS ORDERED: METOPROLOL SUCCINATE (ER) 25 MG TAB.ER.24H PO ONE ×2 (07:54→20:36)
[2023-11-28] MEDS ORDERED: SERTRALINE 100 MG TAB ONE (07:54)
[2023-11-28 11:44] LABS: Glucose,Whole Blood 181 mg/dL (70-110)
[2023-11-28] MEDS ORDERED: INSULIN ASPART (NovoLOG) 100 UNIT/ML VIAL SQ ONE ×3 (12:08→20:36)
[2023-11-28 16:49] LABS: Glucose,Whole Blood 201 mg/dL (70-110)
[2023-11-28] MEDS ORDERED: ATORVASTATIN 40 MG TAB ONE (17:01)
[2023-11-28 20:04] LABS: Glucose,Whole Blood 243 mg/dL (70-110)
[2023-11-29] MEDS ORDERED: methylPREDNISolone SOD SUCCI 125 MG/2 ML VIAL ONE ×2 (00:02→06:12)
[2023-11-29 05:59] LABS: Glucose,Whole Blood 195 mg/dL (70-110)
[2023-11-29] MEDS ORDERED: INSULIN ASPART (NovoLOG) 100 UNIT/ML VIAL SQ ONE (06:13)
[2023-11-29] MEDS ORDERED: IPRATROPIUM-ALBUTEROL 3 ML NEB ONE ×4 (07:41→19:48)
[2023-11-29] MEDS ORDERED: FUROSEMIDE 10 MG/ML 4 ML VIAL ONE (08:50)
[2023-11-29] MEDS ORDERED: busPIRone HCl 5 MG TAB ONE ×2 (08:50→20:49)
[2023-11-29] MEDS ORDERED: POTASSIUM CHLORIDE ER 20 MEQ TAB.ER PO ONE ×2 (08:50→20:50)
[2023-11-29] MEDS ORDERED: SERTRALINE 100 MG TAB ONE (08:50)
[2023-11-29] MEDS ORDERED: ASPIRIN 81 MG ONE (08:50)
[2023-11-29] MEDS ORDERED: METOPROLOL SUCCINATE (ER) 25 MG TAB.ER.24H PO ONE ×2 (08:50→20:49)
[2023-11-29] MEDS ORDERED: ENOXAPARIN 40 MG/0.4 ML SYRINGE SQ ONE (08:50)
[2023-11-29 11:35] LABS: Glucose,Whole Blood 319 mg/dL (70-110)
[2023-11-29 16:31] LABS: Glucose,Whole Blood 292 mg/dL (70-110)
[2023-11-29 20:06] LABS: Glucose,Whole Blood 94 mg/dL (70-110)
[2023-11-29] MEDS ORDERED: SYMBICORT 160-4.5 MCG INHALER INHALATION ONE (23:59)
[2023-11-30 06:18] LABS: Glucose,Whole Blood 113 mg/dL (70-110)
[2023-11-30] MEDS ORDERED: POTASSIUM CHLORIDE ER 20 MEQ TAB.ER PO ONE (09:40)
[2023-11-30] MEDS ORDERED: ASPIRIN 81 MG ONE (09:40)
[2023-11-30] MEDS ORDERED: FUROSEMIDE 10 MG/ML 4 ML VIAL ONE (09:40)
[2023-11-30] MEDS ORDERED: busPIRone HCl 5 MG TAB ONE (09:41)
[2023-11-30] MEDS ORDERED: SERTRALINE 100 MG TAB ONE (09:41)
[2023-11-30] MEDS ORDERED: predniSONE 20 MG TAB ONE (09:41)
[2023-11-30] MEDS ORDERED: METOPROLOL SUCCINATE (ER) 25 MG TAB.ER.24H PO ONE (09:41)
[2023-11-30] MEDS ORDERED: ENOXAPARIN 40 MG/0.4 ML SYRINGE SQ ONE (09:41)
[2023-11-30] MEDS ORDERED: FUROSEMIDE 40 MG TAB ONE (09:43)
[2023-11-30 11:32] LABS: Glucose,Whole Blood 143 mg/dL (70-110)
[2023-12-20 12:24] LABS: Chloride 85 mmol/L (98-107); Glucose 136 mg/dL (74-99); Potassium 4.3 mmol/L (3.5-5.1); Sodium 134 mmol/L (137-145)
[2023-12-20 12:25] LABS: African American GFR (CKD) >90 (>60 ml/min/1.73 sqM); Anion Gap 5 mmol/L; Blood Urea Nitrogen 27 mg/dL (7-17); Calcium 8.9 mg/dL (8.4-10.2); Carbon Dioxide 44 mmol/L (22-30); Magnesium 2.2 mg/dL (1.6-2.3); Non-African American GFR(CKD) >90 (>60 ml/min/1.73 sqM)
[2023-12-20 12:26] LABS: HCT 32.6 % (34.0-46.0); HGB 10.1 gm/dL (11.4-16.0); MCH 30.6 pg (25.0-35.0); MCV 98.7 fL (80.0-100.0); Platelet Count 326 k/uL (150-450); RDW 15.1 % (11.5-15.5)
[2023-12-20 12:27] LABS: Basophils % (A) 0 %; Eosinophils % (A) 1 %; Lymphocytes # (A) 0.5 k/uL (1.0-4.8); Lymphocytes % (A) 6 %; Monocytes # (A) 0.4 k/uL (0-1.0); Monocytes % (A) 4 %; Neutrophils # (A) 7.1 k/uL (1.3-7.7); Neutrophils % (A) 89 %
== END 2023-11-30 14:36 | disposition home or self-care (01) | DRG 190 ==
LOC: EC 11:33 → 3SCARD 13:42
PROVIDERS: ADMIT Student in an Organized Health Care Education/Training Program; ATTEND Student in an Organized Health Care Education/Training Program
DX: J44.1 Chronic obstructive pulmonary disease with (acute) exacerbation (principal); I21.A1 Myocardial infarction type 2; I50.33 Acute on chronic diastolic (congestive) heart failure; J96.21 Acute and chronic respiratory failure with hypoxia; J96.22 Acute and chronic respiratory failure with hypercapnia; F41.9 Anxiety disorder, unspecified; F32.A Depression, unspecified; E87.6 Hypokalemia; E78.5 Hyperlipidemia, unspecified; E66.01 Morbid (severe) obesity due to excess calories; E66.9 Obesity, unspecified; E11.9 Type 2 diabetes mellitus without complications; I11.0 Hypertensive heart disease with heart failure; I25.10 Atherosclerotic heart disease of native coronary artery without angina pectoris; I25.2 Old myocardial infarction; I25.5 Ischemic cardiomyopathy; Z51.5 Encounter for palliative care; Z66 Do not resuscitate; Z79.51 Long term (current) use of inhaled steroids; Z79.82 Long term (current) use of aspirin; Z79.84 Long term (current) use of oral hypoglycemic drugs; Z79.899 Other long term (current) drug therapy; Z82.49 Family history of ischemic heart disease and other diseases of the circulatory system; Z83.3 Family history of diabetes mellitus; Z87.891 Personal history of nicotine dependence; Z91.199 Patient's noncompliance with other medical treatment and regimen due to unspecified reason; Z95.5 Presence of coronary angioplasty implant and graft; Z99.81 Dependence on supplemental oxygen
CPT/HCPCS: 36415; 36600; 71045; 80048; 80053; 82805; 83036; 83605; 83735; 84484; 85025; 85027; 85730; 87040; 93005; 94640; 94660; 94760; 96365; 96375; 99291